=== PATIENT | female | born 1935 | race Caucasian/White ===

== ENCOUNTER 2023-12-06 10:24 | Inpatient (IN) ==
--- NOTE | 2023-12-06 10:40 | Emergency Department Note ---
Impression & Plan Acute on chronic hypoxic respiratory failure, Comfort measures only status, Acute on chronic heart failure with preserved ejection fraction (HFpEF), Lactic acidosis, HOCM (hypertrophic obstructive cardiomyopathy), Elevated troponin ED Provider Note NAME: GAVI CUADRA AGE: 88 SEX: F : 1935 ARRIVES VIA: Ambulance INFORMANT: Patient, ED PROVIDER(S): Isrrael Alcala MD CHIEF COMPLAINT: Shortness of breath MEDICAL DECISION MAKING: Patient presented due to concern for worsening shortness of breath dizziness and low blood pressure. Patient is accompanied by daughter who relates that she has had multiple inpatient stays most recently did have pacemaker placed at [facility] [address] in [place]. I was able to obtain some outpatient records IV was established and blood work was obtained along with an EKG troponin chest x-ray. Patient was noted to be hypotensive and was given 250 cc bolus which was a small amount given the patient's tenuous status that she does have a history of CHF. Patient was hypoxic and did require supplemental oxygen was placed on a nonrebreather. I was able to review the outpatient records which showed concern for left ventricular outflow obstruction and hyper atrophic obstructive cardiomyopathy. Given this concern with the patient's signs of poor perfusion on exam I did consult with cardiology Dr. Roldan who did come down to the emergency department. Patient did have [id number] BMP which was noted to have an elevated potassium and did ask for repeat but in the meantime the patient was given an albuterol treatment. The patient was also noted to have a sugar in the 60s so the patient was given an amp of D50. In that time though I had discussed my concerns with the patient's daughter who is the power of deputy prosecuting attorney after discussing goals of care she does not want to pursue any aggressive interventions does not want life-saving treatments blood pressure or cardiac medications and would like to make the patient comfortable. She does not want ICU status or central line or cardiac or blood pressure medications. I did convey this to Dr. Roldan so the consult was canceled. I did speak with the on-call hospitalist service Dr. Persaud for inpatient treatment and comfort measures. Patient's blood work showed a white count of 9 with a hemoglobin of 9.4. The patient's platelet count was unremarkable. Kidney function with a creatinine 2.14. Patient's bicarb is low. Lactate of 5.5 with a troponin of 341 and a BNP of 2700. Critical Care: I have personally spent 45 minutes of critical care time in direct management of this patient. This includes bedside care, interpretation of diagnostic studies, and testing, discussion with consultants, patient, and family members, and other require inpatient management activities. This 45 minutes is in excess of all separately billable procedures. Discussion w/ other healthcare providers: Sai with [employer] is had no issues with pacemaker interrogation Dr. Persaud inpatient medicines are Prior /Outside records reviewed: I reviewed a discharge summary from Dr. 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 Patient had presented bedside due to concern for respiratory failure secondary to overload baseline interstitial lung disease with severe pulmonary hypertension. Patient with complex physiology patient did have pacemaker placement to improve beta-blockade and increase cardiac output. Is reported that imperative before giving any diuretics or fluids to speak with a chemistry technologist regarding proper management. Patient is very tenuous fluid status due to complex physiology which continues into by the way dry weight noted to be 79 kg today 86.9. Patient is on Eliquis patient was to stop taking metolazone. Patient was to begin taking metoprolol succinate 50 mg. Differential diagnosis: Infection, dehydration, metabolic abnormality, hypo/hyperglycemia, electrolyte imbalance, anemia, UTI, pneumonia, thyroid dysfunction among others were considered. Diagnostics, as interpreted by me: ECG: The patient rhythm, rate of 61, wide QRS block pattern. Cardiac monitoring: An order was placed for continuous cardiac monitoring. The monitor shows a rate of 60 with paced rhythm. Patient was placed on pulse oximetry Medical decision rules: None Imaging studies: I informally interpreted the patient's chest x-ray which does show pulmonary edema with formal report to follow. HPI: [facility] due to concern for hypotension and presyncope. The patient reportedly was going to the toilet when she got very lightheaded dizzy and slumped over on the toilet but did not fall. The patient states that she did not pass out. Patient's past pulse ox was in the 70s although unsure as to whether or not the patient had a good waveform. No reported falls or trauma. The patient does take Eliquis and does follow with Dr. Kimble. The patient does have significant heart failure and did have a recent pacemaker that was placed about a week and a half ago at [facility] [address] in [place]. Patient does feel very fatigable although feels improved compared to prior. Patient is DNR/DNI. No abdominal pain nausea vomiting. Patient reportedly has been getting food and drink per the daughter but the patient states that she had decreased appetite and decreased p.o. intake. Daughter also relates that she has a history of pulmonary hypertension and has been on Lasix multiple bouts of hospitalization for CHF and volume overload. Daughter states that she believes her abdomen is distended and may not be urinating as well as she should as the patient has required catheterization. PAST MEDICAL HISTORY: See Below PAST SURGICAL HISTORY: See Below SOCIAL HISTORY: See Below HOME MEDICATIONS: See Below ALLERGIES: See Below VITALS: See Below PHYSICAL EXAMINATION: GENERAL: Ill in appearance. Nonrebreather in place. EYE EXAM: Normal conjunctiva. PERRL, no anisocoria and EOM's grossly intact w/o pain. OROPHARYNX: Dry mucus membranes, grossly normal dentition. NECK: Trachea midline, no stridor. LUNGS: Decreased breath sounds bilateral bases normal chest wall mechanics. HEART: NSR, no MRG. ABDOMEN: Abdomen soft, non-tender, no masses, no rebound or guarding. BACK: No CVA TTP. SKIN: No rashes and no bruising. UPPER EXTREMITIES: Upper extremities are grossly normal. Distal portions of the extremities are cool to touch. LOWER EXTREMITIES: Grossly normal, Trace pretibial edema without any calf pain erythema. Distal portions of the extremity are cool to touch. NEURO EXAM: A&O x3, cranial nerves II-XII grossly intact, normal speech, moves all 4 extremities. Past Med/Surg History Medical History HOCM (hypertrophic obstructive cardiomyopathy) Surgical History S/P cardiac pacemaker procedure Social History Smoking Status: Never smoker Preferred Language: Pashto Communication Ability: Unable Field Court Researcher Required: No Beliefs That Will Affect Care: None Feels Safe at Home: Yes Assistive Devices: None Allergies Allergies Allergy/AdvReac Type Severity Reaction Status Date / Time amoxicillin Allergy Hives Unverified 12/06/23 12:59 gatifloxacin AdvReac Nausea and Unverified 12/06/23 12:59 vomiting latex AdvReac Rash Unverified 12/06/23 12:59 Home Meds Home Medications Medication Instructions Recorded Confirmed No Known Home Medications 12/06/23 12/06/23 Results & Data (ED) Vital Signs Vital Signs - 24 hr 12/06/23 10:37 12/06/23 11:03 12/06/23 11:03 Pulse Rate 60 60 62 Pulse Rate from SpO2 Sensor Respiratory Rate 20 20 Respiratory Effort / Characteristics Non-Labored Respiratory Depth Normal Blood Pressure 93/53 L Blood Pressure Mean 66 Pulse Oximetry 98 91 Oxygen Delivery Method Room Air Oxymask Oxygen Flow Rate 5 Sepsis Recent Fever Within 48 Hours No Sepsis New/Unexplained Change in Mental Status N/A Sepsis Action Taken by Nursing No Action Required 12/06/23 11:40 12/06/23 11:46 12/06/23 12:02 Pulse Rate 61 60 Pulse Rate from SpO2 Sensor 60 Respiratory Rate 16 25 H Respiratory Effort / Characteristics Respiratory Depth Blood Pressure 112/59 L 94/61 L Blood Pressure Mean 76 72 Pulse Oximetry 84 L 86 L 84 L Oxygen Delivery Method Oxymask Non-rebreather Oxygen Flow Rate 4 15 Sepsis Recent Fever Within 48 Hours Sepsis New/Unexplained Change in Mental Status Sepsis Action Taken by Alf Medications Current Medication List: was personally reviewed by me Laboratory Data Attestation: I reviewed the patient's lab results. 12/06/23 11:19 12/06/23 11:19 Lab Results 12/06/23 12/06/23 12/06/23 Range/Units 10:49 11:19 11:29 WBC 9.41 (4.8-10.8) K/ul RBC 3.66 L (4.20-5.40) M/uL Hgb 9.4 L (12.0-16.0) g/dl POC Hgb 12.6 11.2 L (12.0-16.0) g/dl Hct 32.2 L (37.0-47.0) % POC Hct 37 33 L (37-47) % MCV 88.0 (80.0-100.0) fL MCH 25.7 (25.0-34.0) pg MCHC 29.2 L (32.0-36.0) g/dL RDW Std Deviation 63.8 H (36.4-46.3) fL RDW Coeff of Lance 20.2 H (11.5-14.5) % Plt Count 188 (130-400) K/uL MPV 10.1 (9.4-12.4) fL Immature Gran % (Auto) 1.1 % Neut % (Auto) 86.0 % Lymph % (Auto) 7.8 % [place] % (Auto) 4.7 % Eos % (Auto) 0.3 % Baso % (Auto) 0.1 % Neut # (Auto) 8.10 H (1.40-6.50) K/uL Lymph # (Auto) 0.73 L (1.20-3.40) K/uL [place] # (Auto) 0.44 (0.11-0.59) K/uL Eos # (Auto) 0.03 (0.00-0.50) K/uL Baso # (Auto) 0.01 (0.00-0.20) K/uL Immature Gran # (Auto) 0.10 (0.01-0.20) K/uL Absolute Nucleated RBC 0.06 (0.00-0.12) K/uL Nucleated RBC % (auto) 0.6 % Polychromasia 1+ Anisocytosis Present Echinocytes 2+ POC Sodium 122 L 124 L (135-144) mmol/L Sodium 124 L (136-145) mmol/L POC Potassium 7.7 H* 5.0 (3.3-5.0) mmol/L Potassium 5.0 (3.5-5.1) mmol/L POC Chloride 96 L 94 L (101-112) mmol/L Chloride 92 L (98-107) mmol/L Carbon Dioxide 17 L (21-32) mmol/L POC Total CO2 17 L 18 L (24-31) mmol/L Anion Gap 15 H (3-11) POC Anion Gap 18.0 19.0 (16-25) mmol/L POC BUN 82 H 65 H (7-18) mg/dl BUN 73 H (6-23) mg/dl Creatinine 2.14 H (0.6-1.2) mg/dl POC Creatinine 2.4 H 2.3 H (0.6-1.3) mg/dl Est Cr Clr Drug Dosing 18.9 ml/min Est GFR ( Amer) 23.5 ml/min Est GFR (Non-Af Amer) 20.3 ml/min BUN/Creatinine Ratio 34.1 H (10-20) Glucose 72 (70-99(Fasting)) mg/dl POC Glucose (other) 64 L* 70 (70-99) mg/dl Lactate 5.9 H* (0.4-2.0) mmol/L Calcium 8.7 (8.6-10.3) mg/dl POC Ioniz Calcium Nadeem 0.99 L 1.11 L (1.12-1.32) mmol/l Magnesium 2.7 H (1.7-2.4) mg/dl Total Bilirubin 2.2 H (0.2-1.0) mg/dl Direct Bilirubin 1.1 H (0-0.2) mg/dl AST 46 H (13-39) U/L ALT 26 (7-52) U/L Alkaline Phosphatase 153 H (34-104) U/L Troponin I High Sens 341.5 H* (0-14) pg/ml B-Natriuretic Peptide 2736 H (0-100) pg/ml Total Protein 6.4 (6.0-8.3) gm/dl Albumin 3.2 L (3.4-5.0) gm/dl Procalcitonin 0.26 (0-0.5) ng/ml Urine Color Urine Appearance (Clear) Urine pH (4.5-7.5) Ur Specific [place] (1.000-1.030) Urine Protein (Negative) Urine Glucose (UA) (Negative) Urine Ketones (Negative) Urine Blood (Negative) Urine Nitrite (Negative) Urine Bilirubin (Negative) Urine Urobilinogen (Negative) Ur Leukocyte Esterase (Negative) Urine WBC (Auto) (0-5) /hpf Urine RBC (Auto) (0-2) /hpf U Hyaline Cast (Auto) (0-2) /lpf U Epithel Cells (Auto) (0-2) /hpf Urine Bacteria (Auto) (None Seen) Hyaline Casts (None Presnt) /lpf Granular Casts (None Prsent) /lpf 12/06/23 12/06/23 Range/Units 11:50 14:36 WBC (4.8-10.8) K/ul RBC (4.20-5.40) M/uL Hgb (12.0-16.0) g/dl POC Hgb (12.0-16.0) g/dl Hct (37.0-47.0) % POC Hct (37-47) % MCV (80.0-100.0) fL MCH (25.0-34.0) pg MCHC (32.0-36.0) g/dL RDW Std Deviation (36.4-46.3) fL RDW Coeff of Lance (11.5-14.5) % Plt Count (130-400) K/uL MPV (9.4-12.4) fL Immature Gran % (Auto) % Neut % (Auto) % Lymph % (Auto) % [place] % (Auto) % Eos % (Auto) % Baso % (Auto) % Neut # (Auto) (1.40-6.50) K/uL Lymph # (Auto) (1.20-3.40) K/uL [place] # (Auto) (0.11-0.59) K/uL Eos # (Auto) (0.00-0.50) K/uL Baso # (Auto) (0.00-0.20) K/uL Immature Gran # (Auto) (0.01-0.20) K/uL Absolute Nucleated RBC (0.00-0.12) K/uL Nucleated RBC % (auto) % Polychromasia Anisocytosis Echinocytes POC Sodium (135-144) mmol/L Sodium (136-145) mmol/L POC Potassium (3.3-5.0) mmol/L Potassium (3.5-5.1) mmol/L POC Chloride (101-112) mmol/L Chloride (98-107) mmol/L Carbon Dioxide (21-32) mmol/L POC Total CO2 (24-31) mmol/L Anion Gap (3-11) POC Anion Gap (16-25) mmol/L POC BUN (7-18) mg/dl BUN (6-23) mg/dl Creatinine (0.6-1.2) mg/dl POC Creatinine (0.6-1.3) mg/dl Est Cr Clr Drug Dosing ml/min Est GFR ( Amer) ml/min Est GFR (Non-Af Amer) ml/min BUN/Creatinine Ratio (10-20) Glucose (70-99(Fasting)) mg/dl POC Glucose (other) (70-99) mg/dl Lactate (0.4-2.0) mmol/L Calcium (8.6-10.3) mg/dl POC Ioniz Calcium Nadeem (1.12-1.32) mmol/l Magnesium (1.7-2.4) mg/dl Total Bilirubin (0.2-1.0) mg/dl Direct Bilirubin (0-0.2) mg/dl AST (13-39) U/L ALT (7-52) U/L Alkaline Phosphatase (34-104) U/L Troponin I High Sens 4.1 D (0-14) pg/ml B-Natriuretic Peptide (0-100) pg/ml Total Protein (6.0-8.3) gm/dl Albumin (3.4-5.0) gm/dl Procalcitonin (0-0.5) ng/ml Urine Color Dark Yellow Urine Appearance Cloudy A (Clear) Urine pH 5.0 (4.5-7.5) Ur Specific [place] 1.019 (1.000-1.030) Urine Protein Trace H (Negative) Urine Glucose (UA) Negative (Negative) Urine Ketones Trace H (Negative) Urine Blood Negative (Negative) Urine Nitrite Negative (Negative) Urine Bilirubin 1+ H (Negative) Urine Urobilinogen Negative (Negative) Ur Leukocyte Esterase 2+ H (Negative) Urine WBC (Auto) 21-50 H (0-5) /hpf Urine RBC (Auto) 3-5 H (0-2) /hpf U Hyaline Cast (Auto) >20 H (0-2) /lpf U Epithel Cells (Auto) 6-10 H (0-2) /hpf Urine Bacteria (Auto) None Seen (None Seen) Hyaline Casts Present A (None Presnt) /lpf Granular Casts Present A (None Prsent) /lpf Administered Medications Discontinued Medications Albuterol (Albuterol 0.083% Nebu Soln 3 Ml Vial) 2.5 mg NEB NOW STA; Protocol Stop: 12/06/23 10:54 Last Admin: 12/06/23 11:25 Dose: 2.5 mg Documented By: Dextrose (Dextrose 50% 50 Ml Syringe) 50 ml IV NOW ONE Stop: 12/06/23 10:52 Last Admin: 12/06/23 11:13 Dose: 50 ml Documented By: MR Hydromorphone HCl (Hydromorphone Bolus From Bag) 0.2 mg IV Q10M PRN PRN Reason: Comfort Care Parameters Stop: 12/20/23 17:28 Last Admin: 12/06/23 20:25 Dose: 0.2 mg Documented By: RANI Co-signed By: FRANK Calcium Gluconate () 1,000 mg in 60 mls @ 240 mls/hr IV NOW STA Stop: 12/06/23 11:07 Last Infusion: 12/06/23 11:49 Dose: Infused Documented By: Admin: 12/06/23 11:20 Dose: 240 mls/hr Documented By: MR Sodium Chloride (Nss) 250 mls @ 999 mls/hr IV .Q16M ONE Stop: 12/06/23 11:08 Last Infusion: 12/06/23 12:59 Dose: Infused Documented By: Admin: 12/06/23 11:15 Dose: 999 mls/hr Documented By: MR Hydromorphone HCl (Dilaudid/Nss) 100 mg in 100 mls @ 0 mls/hr IV .Q0M BONIFACIO; Protocol Stop: 12/20/23 17:29 Last Titration: 12/07/23 12:02 Dose: Infused Documented By: JASBIR Co-signed By: [facility] Titration: 12/07/23 10:59 Dose: 0 mg/hr, 0 mls/hr Documented By: JASBIR Co-signed By: [facility] Titration: 12/07/23 05:03 Dose: 0.6 mg/hr, 0.6 mls/hr Documented By: RANI Co-signed By: FRANK Titration: 12/06/23 20:25 Dose: 0.4 mg/hr, 0.4 mls/hr Documented By: RANI Co-signed By: FRANK Admin: 12/06/23 17:46 Dose: 0.2 mg/hr, 0.2 mls/hr Documented By: JASBIR Co-signed By: DIANDRA Morphine Sulfate (Morphine Sulfate 2 Mg/Ml Carp) 2 mg IV NOW STA Stop: 12/06/23 13:27 Last Admin: 12/06/23 13:31 Dose: 2 mg Documented By: CESAR Morphine Sulfate (Morphine Sulfate 2 Mg/Ml Carp) 2 mg IV Q4H PRN PRN Reason: Pain or Respiratory Distress Stop: 12/20/23 15:13 Last Admin: 12/06/23 15:18 Dose: 2 mg Documented By: AV Imaging Data Radiologist's Impression: Chest X-Ray 12/06/23 10:52 XR chest 1V portable HISTORY: Sepsis COMPARISON: None. FINDINGS: No pneumothorax. No pleural effusions. The cardiac silhouette is mildly enlarged. Is left-sided single lead pacemaker. There is diffuse interstitial thickening and low lung volumes. Calcifications within the aortic knob. No acute fractures. Bibasilar densities are nonspecific. IMPRESSION: 1. Cardiomegaly with diffuse interstitial thickening. This may be chronic or represent mild congestive change. 2. Bibasilar densities may represent atelectasis or a pneumonitis. ACT 112: Negative or not required by law. Electronically signed by: Carlos Enrique Murrell M.D. 12/06/2023 11:11 AM Discharge Plan Visit Data Chief Complaint: Hypotension Stated Complaint: SYNCOPE, HYPOTENSION ED Provider: Isrrael Alcala Discharge Problem: Acute on chronic hypoxic respiratory failure, Comfort measures only status, Acute on chronic heart failure with preserved ejection fraction (HFpEF), Lactic acidosis, HOCM (hypertrophic obstructive cardiomyopathy), Elevated troponin Patient Disposition: Admitted As Inpatient Discharge Instructions Interventions: ED Discharge Assessment Last Done: 12/06/23 14:15
[2023-12-06 11:02] LABS: iSTAT Creatinine 2.4 mg/dl (0.6-1.3); iSTAT Hemoglobin 12.6 g/dl (12.0-16.0); iSTAT Ionized Calcium 0.99 mmol/l (1.12-1.32); iSTAT Potassium 7.7 mmol/L (3.3-5.0)
[2023-12-06] MEDS: DEXTROSE 50% 50 ML SYRINGE IV ONE (11:13)
--- NOTE | 2023-12-06 11:13 | XRay Report ---
XR chest 1V portable HISTORY: Sepsis COMPARISON: None. FINDINGS: No pneumothorax. No pleural effusions. The cardiac silhouette is mildly enlarged. Is left-s ided single lead pacemaker. There is diffuse interstitial thickening and low lung volumes. Calcificat ions within the aortic knob. No acute fractures. Bibasilar densities are nonspecific. IMPRESSION: 1. Cardiomegaly with diffuse interstitial thickening. This may be chronic or represent mild congestiv e change. 2. Bibasilar densities may represent atelectasis or a pneumonitis. ACT 112: Negative or not required by law. Electronically signed by: Carlos Enrique Murrell M.D. 12/06/2023 11:11 AM
[2023-12-06] MEDS: SODIUM CHLORIDE 0.9% 250 ML IV ONE (11:15)
[2023-12-06] MEDS: CALCIUM GLUCONATE 1,000 MG/60 ML BAG IV STA (11:20)
[2023-12-06] MEDS: ALBUTEROL 0.083% NEBU SOLN 3 ML VIAL NEB STA (11:25)
[2023-12-06 11:42] LABS: iSTAT Creatinine 2.3 mg/dl (0.6-1.3); iSTAT Hemoglobin 11.2 g/dl (12.0-16.0); iSTAT Ionized Calcium 1.11 mmol/l (1.12-1.32)
[2023-12-06 11:44] LABS: Basophils # (auto) 0.01 K/uL (0.00-0.20); Basophils % (auto) 0.1 %; Eosinophils # (auto) 0.03 K/uL (0.00-0.50); Eosinophils % (auto) 0.3 %; Hematocrit (blood only) 32.2 % (37.0-47.0); Hemoglobin 9.4 g/dl (12.0-16.0); Immature Granulocytes % (auto) 1.1 %; Lymphocytes # (auto) 0.73 K/uL (1.20-3.40); Lymphocytes % (auto) 7.8 %; Mean Corpuscular Hemoglobin 25.7 pg (25.0-34.0); Mean Corpuscular Hgb Conc 29.2 g/dL (32.0-36.0); Mean Platelet Volume 10.1 fL (9.4-12.4); Monocytes # (auto) 0.44 K/uL (0.11-0.59); Monocytes % (auto) 4.7 %; Nucleated RBC # (auto) 0.06 K/uL (0.00-0.12); Nucleated RBC % (auto) 0.6 %; Platelet Count 188 K/uL (130-400); RDW Coefficient of Variation 20.2 % (11.5-14.5); RDW Standard Deviation 63.8 fL (36.4-46.3); Red Blood Count 3.66 M/uL (4.20-5.40); White Blood Count 9.41 K/ul (4.8-10.8)
[2023-12-06 11:57] LABS: Albumin Level 3.2 gm/dl (3.4-5.0); BUN Creatinine Ratio 34.1 (10-20); Bilirubin Direct 1.1 mg/dl (0-0.2); Bilirubin,Total 2.2 mg/dl (0.2-1.0); Calcium 8.7 mg/dl (8.6-10.3); Creatinine Clr Calc Pharmacy 18.9 ml/min; Est GFR (African American) 23.5 ml/min; Est GFR (Non-African American) 20.3 ml/min; Magnesium 2.7 mg/dl (1.7-2.4); Total Protein 6.4 gm/dl (6.0-8.3)
[2023-12-06 12:05] LABS: Troponin I High Sensitivity 341.5 pg/ml (0-14)
[2023-12-06 12:18] LABS: Anisocytosis Present; Echinocytes 2+; Polychromasia 1+
[2023-12-06 12:19] LABS: Appearance Urine Cloudy (Clear); Bacteria Urine Automated None Seen (None Seen); Bilirubin Urine 1+ (Negative); Blood Urine Negative (Negative); Cast Urine Automated >20 /lpf (0-2); Color Urine Dark Yellow; Glucose Urine UA Negative (Negative); Granular Casts Urine Present /lpf (None Prsent); Hyaline Casts Urine Present /lpf (None Presnt); Ketones Urine Trace (Negative); Leukocyte Esterase Urine 2+ (Negative); Nitrite Urine Negative (Negative); Protein Urine Trace (Negative); Specific Gravity Urine 1.019 (1.000-1.030); Urobilinogen Urine Negative (Negative); WBC Urine Automated 21-50 /hpf (0-5)
[2023-12-06] MEDS ORDERED: LORazepam 0.5 MG TAB PO PRN (12:43)
[2023-12-06] MEDS ORDERED: ONDANSETRON INJ 2 MG/ML 2 ML VIAL IV PRN (12:43)
[2023-12-06] MEDS ORDERED: GLYCOPYRROLATE 0.2 MG/ML VIAL IV PRN ×2 (12:43→17:33)
[2023-12-06] MEDS ORDERED: MoRPHine SULFATE 10 MG/0.5 ML UDP PO PRN (12:43)
[2023-12-06] MEDS ORDERED: LORazepam 0.5 MG in SYRINGE 0.25 ML IV PRN (12:43)
[2023-12-06] MEDS ORDERED: ONDANSETRON 4 MG OD TAB SL PRN (12:43)
--- NOTE | 2023-12-06 12:43 | History & Physical Report ---
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, as she would not like inotropes or intubation in any circumstances Daughter/surrogate (Betty) is present for this discussion at bedside and confirms decisions Patient's goals are to pass in minimal pain Morphine (Roxanol) as needed for pain respiratory distress Lorazepam as needed for anxiety/agitation Glycopyrrolate as needed for secretions or pulmonary congestion Zofran as needed for nausea/vomiting Patient declines postoral consult at this time Palliative care consulted (2) Acute on chronic heart failure: Plan: Single chamber pacemaker placed on 11/27/2023 Not a defibrillator Jardiance, metolazone, spironolactone, and torsemide were all discontinued during her hospital stay Dry weight of 174 pounds Minimal improvement in the ED Will defer further treatment (3) Acute and chronic respiratory failure: Plan: Patient is continuous supplemental oxygen on 2L NC at baseline, but required increased oxygen the morning of 12/05 Supplemental oxygen as needed to keep comfortable without escalation beyond nonrebreather (4) HOCM (hypertrophic obstructive cardiomyopathy): Plan: Chronic; noted (5) Elevated lactic acid level: (6) Elevated troponin: (7) Hypermagnesemia: (8) Hyponatremia: (9) Anemia: Plan Disposition: [facility] DNR/DNI Comfort measures only History of Present Illness Chief Complaint: Syncope, hypotension Primary Care Provider: Jeanna Chavez PA-C Maria Luisa is an 88yo female with PMH of HOCM, heart failure, chronic respiratory failure, and urinary retention. She presented via EMS from [facility] for 2 syncopal episodes on the morning of 12/05. Her blood sugar was low at that time around 58, but came up after receiving orange juice. Patient was done very lethargic; SpO2 65%. Patient was also hypotensive at 60/30 on EMS arrival and placed on a nonrebreather at 15 L (she is chronically on 2L NC at baseline). Patient's daughter (Betty) is present at the bedside and provides additional history. She reports that her mother has been in the hospital multiple times since July for acute exacerbations of her heart failure. This has been difficult to treat in the setting of HOCM. She was taken off of diuretics recently. Patient denies fully passing out this morning, but reports she has been feeling very weak and had difficulty breathing. Patient is mentating at this time and reports that she would not like escalation of treatment such as vasopressors or intubation if required. Per discussion with both patient and daughter at bedside, patient is DNR/DNI and would like comfort measures only at this time. Patient Patient is hypotensive and is hypertensive at 94/61, tachypneic at 25 RPM, and her oxygen saturation is 84% SpO2 on 15 L nonrebreather. ED course: Dextrose 50 mL IV Ventolin 2.5 mg neb Calcium gluconate 1000 mg IV NSS 250 mL IV ROS: Patient endorses fatigue, generalized weakness, orthopnea, and difficulty breathing. Patient denies fever, chills, sweating, dizziness, lightheadedness, headache, chest pain, abdominal pain, pain anywhere. Allergies Allergy/AdvReac Type Severity Reaction Status Date / Time amoxicillin Allergy Hives Unverified 12/06/23 12:59 gatifloxacin AdvReac Nausea and Unverified 12/06/23 12:59 vomiting latex AdvReac Rash Unverified 12/06/23 12:59 Home Medications Medication Instructions Recorded Confirmed Type No Known Home Medications 12/06/23 12/06/23 History Past Med/Surg History Social History Smoking Status: Never smoker Feels Safe at Home: Yes Review of Systems Review of Systems: See HPI above Physical Exam Physical Exam: Abbreviated in the setting of comfort measures only General: Acute respiratory distress; lethargic; pleasant affect; frail appearing; non-toxic appearing; cooperative; SpO2 84% on nonrebreather 15 L HEENT: normocephalic, atraumatic; PERRLA; dry mucus membrane; vision and hearing intact Neck: supple; no lymphadenopathy; trachea midline Skin: warm, dry without signs of tenting CV: chest wall NTP; RRR; S1/S2 normal; no murmurs/rubs/gallops; pulses intact and symmetric at radial, DP, and PT Lungs: Acute respiratory distress; symmetrical chest wall expansion; diminished breath sounds across all lung villatoro w/o adventitious sounds; no wheezing Results & Data Results & Data Vital Signs (Past 12 Hours) Vital Signs Pulse Resp BP Pulse Ox O2 Del Method O2 Flow Rate 12/06/23 12:02 60 25 H 94/61 L 84 L 12/06/23 11:46 61 16 112/59 L 86 L Non-rebreather 15 12/06/23 11:40 84 L Oxymask 4 12/06/23 11:03 62 20 91 Oxymask 5 12/06/23 11:03 60 20 93/53 L 98 Room Air 12/06/23 10:37 60 Laboratory Results Abnormal lab results 12/06/23 12/06/23 12/06/23 Range/Units 10:49 11:19 11:29 RBC 3.66 L (4.20-5.40) M/uL Hgb 9.4 L (12.0-16.0) g/dl POC Hgb 11.2 L (12.0-16.0) g/dl Hct 32.2 L (37.0-47.0) % POC Hct 33 L (37-47) % MCHC 29.2 L (32.0-36.0) g/dL RDW Std Deviation 63.8 H (36.4-46.3) fL RDW Coeff of Lance 20.2 H (11.5-14.5) % Neut # (Auto) 8.10 H (1.40-6.50) K/uL Lymph # (Auto) 0.73 L (1.20-3.40) K/uL POC Sodium 122 L 124 L (135-144) mmol/L Sodium 124 L (136-145) mmol/L POC Potassium 7.7 H* (3.3-5.0) mmol/L POC Chloride 96 L 94 L (101-112) mmol/L Chloride 92 L (98-107) mmol/L Carbon Dioxide 17 L (21-32) mmol/L POC Total CO2 17 L 18 L (24-31) mmol/L Anion Gap 15 H (3-11) POC BUN 82 H 65 H (7-18) mg/dl BUN 73 H (6-23) mg/dl Creatinine 2.14 H (0.6-1.2) mg/dl POC Creatinine 2.4 H 2.3 H (0.6-1.3) mg/dl BUN/Creatinine Ratio 34.1 H (10-20) POC Glucose (other) 64 L* (70-99) mg/dl Lactate 5.9 H* (0.4-2.0) mmol/L POC Ioniz Calcium Nadeem 0.99 L 1.11 L (1.12-1.32) mmol/l Magnesium 2.7 H (1.7-2.4) mg/dl Total Bilirubin 2.2 H (0.2-1.0) mg/dl Direct Bilirubin 1.1 H (0-0.2) mg/dl AST 46 H (13-39) U/L Alkaline Phosphatase 153 H (34-104) U/L Troponin I High Sens 341.5 H* (0-14) pg/ml B-Natriuretic Peptide 2736 H (0-100) pg/ml Albumin 3.2 L (3.4-5.0) gm/dl Urine Appearance (Clear) Urine Protein (Negative) Urine Ketones (Negative) Urine Bilirubin (Negative) Ur Leukocyte Esterase (Negative) Urine WBC (Auto) (0-5) /hpf Urine RBC (Auto) (0-2) /hpf U Hyaline Cast (Auto) (0-2) /lpf U Epithel Cells (Auto) (0-2) /hpf Hyaline Casts (None Presnt) /lpf Granular Casts (None Prsent) /lpf 12/06/23 Range/Units 11:50 RBC (4.20-5.40) M/uL Hgb (12.0-16.0) g/dl POC Hgb (12.0-16.0) g/dl Hct (37.0-47.0) % POC Hct (37-47) % MCHC (32.0-36.0) g/dL RDW Std Deviation (36.4-46.3) fL RDW Coeff of Lance (11.5-14.5) % Neut # (Auto) (1.40-6.50) K/uL Lymph # (Auto) (1.20-3.40) K/uL POC Sodium (135-144) mmol/L Sodium (136-145) mmol/L POC Potassium (3.3-5.0) mmol/L POC Chloride (101-112) mmol/L Chloride (98-107) mmol/L Carbon Dioxide (21-32) mmol/L POC Total CO2 (24-31) mmol/L Anion Gap (3-11) POC BUN (7-18) mg/dl BUN (6-23) mg/dl Creatinine (0.6-1.2) mg/dl POC Creatinine (0.6-1.3) mg/dl BUN/Creatinine Ratio (10-20) POC Glucose (other) (70-99) mg/dl Lactate (0.4-2.0) mmol/L POC Ioniz Calcium Nadeem (1.12-1.32) mmol/l Magnesium (1.7-2.4) mg/dl Total Bilirubin (0.2-1.0) mg/dl Direct Bilirubin (0-0.2) mg/dl AST (13-39) U/L Alkaline Phosphatase (34-104) U/L Troponin I High Sens (0-14) pg/ml B-Natriuretic Peptide (0-100) pg/ml Albumin (3.4-5.0) gm/dl Urine Appearance Cloudy A (Clear) Urine Protein Trace H (Negative) Urine Ketones Trace H (Negative) Urine Bilirubin 1+ H (Negative) Ur Leukocyte Esterase 2+ H (Negative) Urine WBC (Auto) 21-50 H (0-5) /hpf Urine RBC (Auto) 3-5 H (0-2) /hpf U Hyaline Cast (Auto) >20 H (0-2) /lpf U Epithel Cells (Auto) 6-10 H (0-2) /hpf Hyaline Casts Present A (None Presnt) /lpf Granular Casts Present A (None Prsent) /lpf Diagnostic Findings Chest X-Ray 12/06/23 10:52 XR chest 1V portable HISTORY: Sepsis COMPARISON: None. FINDINGS: No pneumothorax. No pleural effusions. The cardiac silhouette is mildly enlarged. Is left-sided single lead pacemaker. There is diffuse interstitial thickening and low lung volumes. Calcifications within the aortic knob. No acute fractures. Bibasilar densities are nonspecific. IMPRESSION: 1. Cardiomegaly with diffuse interstitial thickening. This may be chronic or represent mild congestive change. 2. Bibasilar densities may represent atelectasis or a pneumonitis. ACT 112: Negative or not required by law. Electronically signed by: Carlos Enrique Murrell M.D. 12/06/2023 11:11 AM ECG Additional Comments: ECG revealed ventricular paced rhythm at 61 bpm; QTc 545 Code Status & VTE Plan Code Status DNR/DNI WAREHOU[employer] WORKER VTE Prophylaxis Plan VTE Prophylaxis will be ordered: No Supervising Physician Co-Signing Physician Notes Patient seen and examined, chart reviewed, case discussed with Carlos Enrique Santos and I agree with the assessment and plan as above except as otherwise noted Labs and images reviewed Pt seen w her daughter was bedside. She has had clinical deterioration, dyspnea, general unwellness progressive over the last week since having her ICD placed at [place]. Patient is hypotensive with evidence of multiorgan dysfunction. She has a history of severe hypertrophic cardiomyopathy and diastolic heart failure. On presentation family expresses their goals of care are to move to comfort measures only, and as she is satting in the low 80s on nonrebreather anticipate that she will pass within the next few hours to days. Central line access, ICU level of care, and initial treatments for her hokum/heart failure were discussed however given her multiple prior admissions, invasive measures they just had at [place], and continued decline they do not wish for further medical treatment at time of admission. Discussed WAREHOUSE WORKER, patient confirms that her goals are "to pass in no pain "and her surrogate decision maker daughter Betty is present at bedside for this discussion. Pt has improved previously with cautious fluids and recived saline on admission, but notes she has had continued decline and no durable res Confirmed that her device was a single lead ventricular pacer with no ICD functionality that needs to be turned off. WAREHOUSE WORKER orderset in place. Pain/anxiolytics dice person. Palliative consulted. Anticipate passing in hours/short days. May wean oxygen as able based on comfort/dyspnea. PG Care Time/CCT Total # of Minutes Spent Total Time Spent with Patient: Total time spent is greater than 50% in coordination of care (as documented) at patient's floor/unit and/or counseling patient: [place] [address] INT INP/OBS CARE 3/75MIN Patient Type Established History Comprehensive Exam Comprehensive Medical Decision Making High Complexity Diagnoses Comfort measures only status Z51.5 Acute on chronic heart failure I50.9 Acute and chronic respiratory failure J96.20 HOCM (hypertrophic obstructive cardiomyopathy) I42.1 Elevated lactic acid level R79.89 Elevated troponin R79.89 Hypermagnesemia E83.41 Hyponatremia E87.1 Anemia D64.9
[2023-12-06] MEDS ORDERED: Patient's ALLERGY Info needs ENTERED SCH (13:00)
[2023-12-06] MEDS: MoRPHine SULFATE 2 MG/ML CARP IV STA (13:31)
[2023-12-06] MEDS ORDERED: MELATONIN 3 MG TAB PO PRN (15:10)
[2023-12-06] MEDS ORDERED: ACETAMINOPHEN 325 MG TAB PO PRN (15:10)
[2023-12-06] MEDS: MoRPHine SULFATE 2 MG/ML CARP IV PRN (15:18)
[2023-12-06] MEDS ORDERED: LORazepam 1 MG in SYRINGE 0.5 ML IV PRN (17:33)
[2023-12-06] MEDS ORDERED: HYDROmorphone INJ 0.5 MG/0.5 ML SYR IV PRN (17:34)
--- NOTE | 2023-12-06 17:38 | Palliative Care Consultation ---
Date of Consultation December 06, 2023 Assessment & Plan (1) Dyspnea and respiratory abnormalities: Progressive cardioresp failure multifocal etiology of pulm fibrosis, HCOM with LVOT, valvular failure. CKD III-IV, therefore would avoid morphine and transition to Dilaudid. Avoid use of morphine in this patient with advanced renal disease/nephropathy d/t toxic metabolites, which are renally excreted, accumulate and can quickly cause over- opiation. Over opiation would be easily done with the use of a medication that pt cannot properly excrete. Pt has expressed goal for maximal comfort, relief of suffering to prior providers and this is reaffirmed by dtr/POA today as well Begin Dilaudid 0.2mg per hour with 0.2mg q10min prn bolus thru bag stop MS (2) Air hunger: see #1 (3) Chest pain: see #1 (4) Anxiety associated with dying process: inc Ativan to 1mg iV q4h prn d/c oral ativan, pt not able to take PO meds (5) Weakness generalized: (6) Discussion about advance care planning held with family member: I had a telemed based audiovisual ACP meeting for 35min with pt dtr/POA, grandchildren and niece who were all present at the bedside with me via 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 They reaffirm her history and preferences for comfort. They shared further details of her disease progression which rapidly worsened after her covid. She has been "suffering since July" and her symptoms have not been signif improved. We discussed comfort care and rationale for moving to dilaudid We will stop PO meds, she is no longer taking PO We will increase robinul for secretion mgt She has complex cardiac physiology that makes diuretic mgt difficult, she has not had improvement with diuretic challenge this admission. We discussed changes of the dying process: Discussed changes pt may move through in the dying process including but not limited to sleeping more, disorientation when awake, restlessness, diminished senses/inability to respond to stimulus although ability to be aware of them remains intact longer, changes in body temperatures, skin changes/mottling/cyanosis, respiratory pattern changes, oral secretions. Family verbalized understanding. The goal is to assure a peaceful . Family aware I am in clinic tomorrow/return to [facility] Monday. (7) Encounter for end of life care: (8) Need for comfort care: (9) Palliative care by specialist: Met with pt/family. Provided overview of Palliative Medicine, a subspecialty that provides specialized medical care for people living with a serious illness by offering a focus on quality of life through reduction of symptom burden/more control over their illness, for both the patient and family. Plan Thank you for allowing us to participate in the ongoing care of this patient. Please don't hesitate to call or page with any additional concerns. Dr. Kristen Shukla [facility] Director, Palliative Care History of Present Illness Reason for Consultation: comfort care Attending Physician: Nawaf Persaud MD History of Present Illness Per admitting note: "Multiple recent admissions for heart failure exacerbation; diuretics discontinued due to left ventricular outflow obstruction due to HOCM, pulm fibrosis, covid related resp failure/foll by [facility] [place] Pulm. 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 POCUS exam shows likely LVOT obstruction and patient would benefit from fluids for now. Is very tenuous given her multiple cardiac co-morbidities and has high likelihood of going back into Acute HF exacerbation after fluid resuscitation and thus must be monitored closely. PMH: HCM with LVOT obstruction, AF with bradycardia and ventricular pauses, HOCM, HFpEF, Severe TR, Moderate Mitral Stenosis, hypertension, HLD, Severe Pulmonary HTN, Afib, on Eliquis, CKD stage 3, Graves disease, idiopathic pulmonary fibrosis with recurrent admission for heart failure Per dtr, she has had nine admissions this year for acute on chronic combined systolic and diastolic heart failure due to valvular disease, Symptomatic hypotension secondary to intracavitary LV gradient and likely HCM with JORGE, moderate mitral stenosis, mild aortic stenosis, left ventricular hypertrophy secondary to possible hcm, hypertensive heart disease, normal coronary arteries by cath 2021, chronic kidney disease stage III-IV Pertinent Cardiac History: 11/02/2023 TTE: Interpretation Summary The examination is limited quality but adequate for evaluation of the referral indication. The qualitative LV ejection fraction is 55-59% (normal). The septal motion is abnormal consistent with right ventricular pressure and volume overload. The right ventricular systolic function is mildly reduced . The left ventricular diastolic fillling pressure is elevated. Severe tricuspid regurgitation is present. Severe pulmonary hypertension is present. Dilated IVC with reduced collapsability with sniff indicates an elevated right atrial pressure of 15mmHg. Left Ventricle The qualitative LV ejection fraction is 55-59% (normal). The left ventricular cavity size is normal. The LV wall thickness is normal. There is no left ventricular mural thrombus. Left Ventricular Wall Motion The septal motion is abnormal consistent with right ventricular pressure and volume overload. Right Ventricle The right ventricular systolic function is mildly reduced . The right ventricular cavity size is enlarged (basal dimension > 4.2 cm RV apical 4 chamber view). Atria The left atrium is severely enlarged. The right atrium is moderately enlarged. Diastolic Function The left ventricular diastolic fillling pressure is elevated. Aortic Valve The aortic valve is moderately calcified. Mild aortic valve stenosis is present. Mild aortic valve regurgitation is present. Mitral Valve There is severe mitral annular calcification. The mitral valve leaflets are moderately calcified. Moderate mitral stenosis is present. Moderate mitral regurgitation is present. Tricuspid Valve Tricuspid stenosis is absent. Severe tricuspid regurgitation is present. Pulmonary Valve The pulmonary valve is inadequately visualized but the Doppler data is adequate for interpretation.. Pulmonic stenosis is absent. There is mild pulmonary regurgitation. Vessels The aortic root is normal sized. The proximal ascending thoracic aorta is mildly enlarged. Septae There is no evidence of an atrial septal defect but resolution does not allow assessment for a patent foramen ovale. Hemodynamics Dilated IVC with reduced collapsability with sniff indicates an elevated right atrial pressure of 15mmHg. Severe pulmonaryis present. 10/04/2021 Cardiac Catheterization: Normal coronaries. Pertintent Lung Diagnostics: CXR 07/30/23 IMPRESSION: Diffuse interstitial opacities favored to reflect a combination of pulmonary edema and chronic interstitial lung changes. Atypical pneumonia is not excluded. CTA chest 09/30/2021 Lungs: Paraseptal fibrotic and emphysematous changes noted without interval change. 6 x 4 mm pleural base nodule posteromedial right upper lobe image 65/8 is unchanged since 2016. Bibasilar bronchiectasis, unchanged. Stable chronic pleuroparenchymal changes dating back to 2016. Pleural spaces: See "Lungs" finding. Heart: Dense mitral valvular calcification. Coronary artery calcifications. No identified pulmonary embolus. Lymph nodes: Prominent mediastinal lymph nodes unchanged largest is 19 mm in short axis with preserved fatty hilum, stable since 2016. Bones/joints: Thoracic spondylosis, unchanged. Soft tissues: Unremarkable. Other findings: Sinus of Valsalva 36 mm, stable; Proximal descending 24 mm, stable; Distal descending 21 mm, stable. No dissection. IMPRESSION: No acute findings in the chest. No interval change from 02/28/2016. Echo 02/23/23 Interpretation Summary The qualitative LV ejection fraction is >70% (hyperdynamic). The LV wall thickness is severely increased (concentric). The left atrium is severely enlarged (>48 ml/m^2,). The aortic valve has three leaflets. The aortic valve is moderately calcified. Mild aortic valve stenosis is present. WENDY 1.5 cm2 per 2D planimetry. Mild aortic valve regurgitation is present. There is severe mitral annular calcification. The mitral valve chordae are thickened and diffusely calcified. Moderate mitral stenosis is present. Mild to moderate mitral regurgitation which may be underestimated due to acoustic shadowing related to severe mitral annular calcification. Moderate tricuspid regurgitation is present. The estimated pulmonary artery systolic pressure is 54mm Hg. The ascending aorta is moderately enlarged, 4.6 cm. Compared to last available study changes are noted as follows: The estimated systolic pulmonary arterial pressure has increased. - Allergies Allergy/AdvReac Type Severity Reaction Status Date / Time amoxicillin Allergy Hives Unverified 12/06/23 12:59 gatifloxacin AdvReac Nausea and Unverified 12/06/23 12:59 vomiting latex AdvReac Rash Unverified 12/06/23 12:59 Home Medications Medication Instructions Recorded Confirmed Type No Known Home Medications 12/06/23 12/06/23 History Patient History Social History Smoking Status: Never smoker Preferred Language: Yakut Marriage And Family Counselor Required: No Beliefs That Will Affect Care: None Feels Safe at Home: Yes Review of Systems Review of Systems: Unobtainable due to reduced consciousness Physical Exam Physical Exam: Telemedicine visit pt lying in bed, not responding, occ facial grimacing resp effort noted, use of accessory muscles noted no audible wheeze color ashen Results & Data Vital Signs (Past 12 Hours) Vital Signs Pulse Resp BP Pulse Ox O2 Del Method O2 Flow Rate 12/06/23 15:15 Nasal Cannula 4 12/06/23 12:02 60 25 H 94/61 L 84 L 12/06/23 11:46 61 16 112/59 L 86 L Non-rebreather 15 12/06/23 11:40 84 L Oxymask 4 12/06/23 11:03 62 20 91 Oxymask 5 12/06/23 11:03 60 20 93/53 L 98 Room Air 12/06/23 10:37 60 Laboratory Results 12/06/23 12/06/23 12/06/23 Range/Units 14:36 11:50 11:29 WBC (4.8-10.8) K/ul RBC (4.20-5.40) M/uL Hgb (12.0-16.0) g/dl POC Hgb 11.2 L (12.0-16.0) g/dl Hct (37.0-47.0) % POC Hct 33 L (37-47) % MCV (80.0-100.0) fL MCH (25.0-34.0) pg MCHC (32.0-36.0) g/dL RDW Std Deviation (36.4-46.3) fL RDW Coeff of Lance (11.5-14.5) % Plt Count (130-400) K/uL MPV (9.4-12.4) fL Immature Gran % (Auto) % Neut % (Auto) % Lymph % (Auto) % Medina % (Auto) % Eos % (Auto) % Baso % (Auto) % Neut # (Auto) (1.40-6.50) K/uL Lymph # (Auto) (1.20-3.40) K/uL Medina # (Auto) (0.11-0.59) K/uL Eos # (Auto) (0.00-0.50) K/uL Baso # (Auto) (0.00-0.20) K/uL Immature Gran # (Auto) (0.01-0.20) K/uL Absolute Nucleated RBC (0.00-0.12) K/uL Nucleated RBC % (auto) % Polychromasia Anisocytosis Echinocytes POC Sodium 124 L (135-144) mmol/L Sodium (136-145) mmol/L POC Potassium 5.0 (3.3-5.0) mmol/L Potassium (3.5-5.1) mmol/L POC Chloride 94 L (101-112) mmol/L Chloride (98-107) mmol/L Carbon Dioxide (21-32) mmol/L POC Total CO2 18 L (24-31) mmol/L Anion Gap (3-11) POC Anion Gap 19.0 (16-25) mmol/L POC BUN 65 H (7-18) mg/dl BUN (6-23) mg/dl Creatinine (0.6-1.2) mg/dl POC Creatinine 2.3 H (0.6-1.3) mg/dl Est Cr Clr Drug Dosing ml/min Est GFR ( Amer) ml/min Est GFR (Non-Af Amer) ml/min BUN/Creatinine Ratio (10-20) Glucose (70-99(Fasting)) mg/dl POC Glucose (other) 70 (70-99) mg/dl Lactate (0.4-2.0) mmol/L Calcium (8.6-10.3) mg/dl POC Ioniz Calcium Nadeem 1.11 L (1.12-1.32) mmol/l Magnesium (1.7-2.4) mg/dl Total Bilirubin (0.2-1.0) mg/dl Direct Bilirubin (0-0.2) mg/dl AST (13-39) U/L ALT (7-52) U/L Alkaline Phosphatase (34-104) U/L Troponin I High Sens 4.1 D (0-14) pg/ml B-Natriuretic Peptide (0-100) pg/ml Total Protein (6.0-8.3) gm/dl Albumin (3.4-5.0) gm/dl Procalcitonin (0-0.5) ng/ml Urine Color Dark Yellow Urine Appearance Cloudy A (Clear) Urine pH 5.0 (4.5-7.5) Ur Specific [place] 1.019 (1.000-1.030) Urine Protein Trace H (Negative) Urine Glucose (UA) Negative (Negative) Urine Ketones Trace H (Negative) Urine Blood Negative (Negative) Urine Nitrite Negative (Negative) Urine Bilirubin 1+ H (Negative) Urine Urobilinogen Negative (Negative) Ur Leukocyte Esterase 2+ H (Negative) Urine WBC (Auto) 21-50 H (0-5) /hpf Urine RBC (Auto) 3-5 H (0-2) /hpf U Hyaline Cast (Auto) >20 H (0-2) /lpf U Epithel Cells (Auto) 6-10 H (0-2) /hpf Urine Bacteria (Auto) None Seen (None Seen) Hyaline Casts Present A (None Presnt) /lpf Granular Casts Present A (None Prsent) /lpf 12/06/23 12/06/23 Range/Units 11:19 10:49 WBC 9.41 (4.8-10.8) K/ul RBC 3.66 L (4.20-5.40) M/uL Hgb 9.4 L (12.0-16.0) g/dl POC Hgb 12.6 (12.0-16.0) g/dl Hct 32.2 L (37.0-47.0) % POC Hct 37 (37-47) % MCV 88.0 (80.0-100.0) fL MCH 25.7 (25.0-34.0) pg MCHC 29.2 L (32.0-36.0) g/dL RDW Std Deviation 63.8 H (36.4-46.3) fL RDW Coeff of Lance 20.2 H (11.5-14.5) % Plt Count 188 (130-400) K/uL MPV 10.1 (9.4-12.4) fL Immature Gran % (Auto) 1.1 % Neut % (Auto) 86.0 % Lymph % (Auto) 7.8 % Medina % (Auto) 4.7 % Eos % (Auto) 0.3 % Baso % (Auto) 0.1 % Neut # (Auto) 8.10 H (1.40-6.50) K/uL Lymph # (Auto) 0.73 L (1.20-3.40) K/uL Medina # (Auto) 0.44 (0.11-0.59) K/uL Eos # (Auto) 0.03 (0.00-0.50) K/uL Baso # (Auto) 0.01 (0.00-0.20) K/uL Immature Gran # (Auto) 0.10 (0.01-0.20) K/uL Absolute Nucleated RBC 0.06 (0.00-0.12) K/uL Nucleated RBC % (auto) 0.6 % Polychromasia 1+ Anisocytosis Present Echinocytes 2+ POC Sodium 122 L (135-144) mmol/L Sodium 124 L (136-145) mmol/L POC Potassium 7.7 H* (3.3-5.0) mmol/L Potassium 5.0 (3.5-5.1) mmol/L POC Chloride 96 L (101-112) mmol/L Chloride 92 L (98-107) mmol/L Carbon Dioxide 17 L (21-32) mmol/L POC Total CO2 17 L (24-31) mmol/L Anion Gap 15 H (3-11) POC Anion Gap 18.0 (16-25) mmol/L POC BUN 82 H (7-18) mg/dl BUN 73 H (6-23) mg/dl Creatinine 2.14 H (0.6-1.2) mg/dl POC Creatinine 2.4 H (0.6-1.3) mg/dl Est Cr Clr Drug Dosing 18.9 ml/min Est GFR ( Amer) 23.5 ml/min Est GFR (Non-Af Amer) 20.3 ml/min BUN/Creatinine Ratio 34.1 H (10-20) Glucose 72 (70-99(Fasting)) mg/dl POC Glucose (other) 64 L* (70-99) mg/dl Lactate 5.9 H* (0.4-2.0) mmol/L Calcium 8.7 (8.6-10.3) mg/dl POC Ioniz Calcium Nadeem 0.99 L (1.12-1.32) mmol/l Magnesium 2.7 H (1.7-2.4) mg/dl Total Bilirubin 2.2 H (0.2-1.0) mg/dl Direct Bilirubin 1.1 H (0-0.2) mg/dl AST 46 H (13-39) U/L ALT 26 (7-52) U/L Alkaline Phosphatase 153 H (34-104) U/L Troponin I High Sens 341.5 H* (0-14) pg/ml B-Natriuretic Peptide 2736 H (0-100) pg/ml Total Protein 6.4 (6.0-8.3) gm/dl Albumin 3.2 L (3.4-5.0) gm/dl Procalcitonin 0.26 (0-0.5) ng/ml Urine Color Urine Appearance (Clear) Urine pH (4.5-7.5) Ur Specific [place] (1.000-1.030) Urine Protein (Negative) Urine Glucose (UA) (Negative) Urine Ketones (Negative) Urine Blood (Negative) Urine Nitrite (Negative) Urine Bilirubin (Negative) Urine Urobilinogen (Negative) Ur Leukocyte Esterase (Negative) Urine WBC (Auto) (0-5) /hpf Urine RBC (Auto) (0-2) /hpf U Hyaline Cast (Auto) (0-2) /lpf U Epithel Cells (Auto) (0-2) /hpf Urine Bacteria (Auto) (None Seen) Hyaline Casts (None Presnt) /lpf Granular Casts (None Prsent) /lpf Diagnostic Findings Chest X-Ray 12/06/23 10:52 XR chest 1V portable HISTORY: Sepsis COMPARISON: None. FINDINGS: No pneumothorax. No pleural effusions. The cardiac silhouette is mildly enlarged. Is left-sided single lead pacemaker. There is diffuse interstitial thickening and low lung volumes. Calcifications within the aortic knob. No acute fractures. Bibasilar densities are nonspecific. IMPRESSION: 1. Cardiomegaly with diffuse interstitial thickening. This may be chronic or represent mild congestive change. 2. Bibasilar densities may represent atelectasis or a pneumonitis. ACT 112: Negative or not required by law. Electronically signed by: Carlos Enrique Murrell M.D. 12/06/2023 11:11 AM PG Care Time/CCT Total # of Minutes Spent Total Time Spent with Patient: Total time spent is greater than 50% in coordination of care (as documented) at patient's floor/unit and/or counseling patient: I spent 85 minutes overall addressing this case: 25 min in medical data review/discussion with referring provider(s) and/or preparation for the visit including EMR Link for [employer] r review telemed 000/10min observational min in direct interaction with the patient/exam 35 min in Advance Care Planning/Goals of Care discussions as detailed above in note (must be >16min) 15 min in subsequent review and synthesis of assessment and plan 10 min communicating with other providers regarding the patient's case: Advanced Care Planning 19025 Advanced Care Planning 30 [place] [address] IN/OBS CONSULT LVL 4,60M (25 - SIGNIFICANT, SEPARATELY IDENTIFIABLE ) Patient Type New Medical Decision Making High Complexity Diagnoses Dyspnea and respiratory abnormalities R06.00; R06.89 Air hunger R09.89 Chest pain R07.9 Anxiety associated with dying process F41.1 Weakness generalized R53.1 Discussion about advance care planning held with family member Z71.0 Encounter for end of life care Z51.5 Need for comfort care Palliative care by specialist Z51.5 Additional Codes Advanced Care Planning - 44173 Advanced Care Planning 30 Min: 85178 Advanced Care Planning 30 Min ([id number])
[2023-12-06] MEDS: HYDROmorphone/NSS 100 MG/100 ML BAG IV SCH (17:46)
[2023-12-06] MEDS: HYDROmorphone BOLUS from BAG IV PRN (20:25)
--- OUTSIDE RECORDS SUMMARY | 2023-12-06 21:35 | External Medical Summary ---
Author Name Unknown Address Unknown Organization K09:[facility] [place] [id number] Laboratory Report Ordering Provider Test Date Status SINA OLMOS 11/30/2023 06:56:06 Final Observation Date Value Abnormality Reference (Units ) Status WBC, Total 11/30/2023 06:56:06 11.04 Above high normal 4 .00-10.80 (K/uL) Final RBC 11/30/2023 06:56:06 3.71 3.85-5.15 (M/uL) Final Hemoglobin 11/30/2023 06:56:06 9.8 Below low normal 12 .0-15.3 (g/dL) Final HCT 11/30/2023 06:56:06 33.4 Below low normal 36. 0-45.2 (%) Final MCV 11/30/2023 06:56:06 90.0 81.5-97.5 (fL) Final MCH 11/30/2023 06:56:06 26.4 27.0-34.0 (pg) Final MCHC 11/30/2023 06:56:06 29.3 32.0-36.0 (g/dL) Final RDW 11/30/2023 06:56:06 20.5 11.5-15.5 (%) Final Platelets 11/30/2023 06:56:06 232 140-400 (K /uL) Final MPV 11/30/2023 06:56:06 9.9 6.6-11.1 ( fL) Final Performing Location [facility] [address]
--- OUTSIDE RECORDS SUMMARY | 2023-12-06 21:35 | External Medical Summary | Summary of Care ---
Author Name Unknown Organization [facility] Address [address] [facility] [place] [address] Phone [phone] Care Team Providers Care Small Machine Bindery Operator Name Role Phone Jeanna Bal PA-C Primary Care Provi aydin Reason for Visit * Reason Onset Date Comments Appointment 11/30/2023 Hospital follow up Encounter Details Date Type Department Care Team (Late st Contact Info) Description 11/30/2023 Telephone Cardiology, [facility] [address] [place] [address] Rakesh Kimble O, [address] [place] [address] Appointment (Hospital follow up ) Allergies Active Allergy Reactions Criticality Noted Date Comments Amoxicillin Hives Medium 03/22/2016 Gatifloxacin Nausea/vomiting Medium 03/22/2016 Latex Rash Medium 03/22/2016 Other reaction(s): johnson documented as of this encounter (statuses as of 11/30/2023) Medications Medication Sig Dispensed Refills Start Date End Date Status Aspirin 81 MG TBEC Take 1 Tablet by mouth in the morning. 0 12/12/2015 Active cholecalciferol, VIT D3, (VITAMIN D3) 1000 UNITS Tablet Take 1 Tablet by mouth daily at noon. 0 06/08/2015 Active Cyanocobalamin (VITAMIN B-12) 1000 MCG Tablet Take 1 Tablet by mouth in the morning. 0 Active methIMAzole 5 MG Oral Tablet (TAPAZOLE) Take 0.5 Tablets by mouth. Take 1/2 tablet 6 days per week (does not take on Monday) 0 05/27/2020 Active Atorvastatin Calcium 20 MG Oral Tablet (Lipitor) Take 1 Tablet by mouth daily. 90 Tablet 6 06/17/2021 Active Additional Information Patient taking differently:20 mg OralQ-1999, Reported on 10/03/2023 Fluticasone Furoate-Vilanterol 100-25 MCG/ACT Inhalation Aerosol Powder Breath Activated (BREO ellipta) Inhale 1 Puff by mouth in the morning. 60 Each 5 08/08/2023 Active Classics Rolling Walker Use as directed. 1 Each 0 08/25/2023 Active Sennosides-Docusate Sodium 8.6-50 MG Oral Tablet (Senna-S) Take 1 Tablet by mouth in the morning. 0 Active Dorzolamide HCl-Timolol Mal 2-0.5 % Ophthalmic Solution (Cosopt) Instill 1 Drop into eye in the morning and 1 Drop before bedtime. 0 Active Latanoprost 0.005 % Ophthalmic Solution (Xalatan) Instill 1 Drop into both eyes at bedtime. 0 Active polyethylene glycol 3350 119 gram OR POWD Take 17 g by mouth as needed for Constipation. 0 Active Acetaminophen 325 MG Oral Capsule Take 2 Tablets by mouth as needed for Other (Temp above 100.5 or pain). 0 Active Apixaban 2.5 MG Oral Tablet (Eliquis) Take 1 Tablet by mouth in the morning and 1 Tablet before bedtime. 0 Active Fluticasone Propionate 50 MCG/ACT Nasal Suspension (Flonase) Administer 1 [place] into nostril in the morning. 0 Active rOPINIRole HCl 1 MG Oral Tablet (Requip) Take 1 Tablet by mouth every night at bedtime. 30 Tablet 0 11/14/2023 Active Metoprolol Succinate ER 50 MG Oral Tablet Extended Release 24 Hour (toPROL XL) Take 1 Tablet by mouth in the morning. 30 Tablet 0 11/29/2023 Active Hospital, Clinic, or Other Facility Administered Medication Ordered Dose Route Frequency Start Date End Date Status Albuterol Sulfate (Proventil) (2.5 MG/3ML) 0.083% inhalation solution 2.5 mgIndications:SOB (shortness of breath) 2.5 mg NEBULIZER PRN 10/16/2023 10/15/2024 Act toshia documented as of this encounter (statuses as of 11/30/2023) Active Problems Problem Noted Date Diagnosed Date Moderate mitral stenosis 11/24/2023 Moderate tricuspid regurgitation 11/24/2023 Moderate mitral regurgitation 11/24/2023 LVH (left ventricular hypertrophy) 11/23/2023 Acute respiratory failure with hypoxia Nonrheumatic tricuspid valve regurgitation 11/10 CKD (chronic kidney disease) stage 3, GFR 30-59 ml/min 11/07/2023 ILD (interstitial lung disease) 10/18/2023 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 10/04/2023 Nonrheumatic aortic valve stenosis 10/04/2023 Acute on chronic heart failure 10/03/2023 CARLOTA (acute kidney injury) 10/03/2023 Prolonged QT interval 10/03/2023 Acute combined systolic and diastolic CHF, NYHA class 1 10/03/2023 Generalized weakness 10/03/2023 Chronic heart failure with preserved ejection fr action 08/31/2023 Chronic atrial fibrillation 08/31/2023 Chronic hyponatremia 08/31/2023 Positive D dimer 08/30/2023 Influenza A 08/29/2023 Pulmonary HTN 08/29/2023 Elevated troponin 08/29/2023 Acute hyponatremia 08/29/2023 Generalized weakness 08/29/2023 Thrombocytopenia 08/29/2023 Permanent atrial fibrillation 08/29/2023 Petechial rash 08/29/2023 Oral thrush 08/29/2023 CAP (community acquired pneumonia) 08/19/2023 Acute on chronic combined sy stolic and diastolic heart failure due to valvular disease 07/30/2023 Graves disease 09/30/2021 Cardiac outflow obstruction 06/21/2020 Nonrheumatic mitral valve stenosis 06/21/2020 Ascending aortic 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 Coronary artery disease invo lving flandreau coronary artery of flandreau heart without angina pectoris 03/22/2016 Essential hypertension with goal blood pressure less than 140/90 03/22/2016 Dyslipidemia, goal to be determined 03/22/2016 documented as of this encounter (statuses as of 11/30/2023) Resolved Problems Problem Noted Date Diagnosed Date Resolved Date Bradycardia 2023 11/29/2023 Acute on chronic respiratory failure with hypoxia 08/19/2023 11/24/2023 Acute respiratory failure due to COVID-19 07/30/2023 08/01/2023 Pneumonia due to COVID-19 virus 07/30/2023 08/01/2023 NSTEMI (non-ST elevated myoc ardial infarction) 09/30/2021 10/05/2021 Pain in both lower extremities 03/22/2016 07/30/2023 documented as of this encounter (statuses as of 11/30/2023) Immunizations Name Administration Dates Next Due COVID-19 mRNA, LNP-s, No Pre serve, 2-Dose Series (Moderna) 05/26/2021,09/26/2020,08/29/2020 Varicella Zoster Vaccine (Adult) 06/28/2012 documented as of this encounter Social History Tobacco Use Types Packs/Day Years Used Date Smoking Tobacco: Never Passive Smoke Exposure: Past Smokeless Tobacco: Never Comments:Parents smoked in h ome growing up and then work place up until 1967 Alcohol Use Standard Drinks/Week Comments Not Currently 0 (1 standard drink = 0.6 oz pur e alcohol) Sex and Gender Information Value Date Recorded Sex Assigned at Not on file Gender Identity Not on file Sexual Orientation Not on file Job Start Date Occupation Industry Not on file Not on file Not on file documented as of this encounter Functional Status Functional Status Response Date of Assess ment Are you deaf or do you have serious difficulty h earing? No 11/23/2023 Are you blind or do you have serious difficulty seeing, even when wearing glasses? No 11/23/2023 Do you have serious difficul ty walking or climbing stairs? (5 years old or older) No 11/23/2023 Do you have difficulty dress ing or bathing? (5 years old or older) No 11/23/2023 Because of a physical, menta l, or emotional condition, do you have difficulty doing errands alone such as visiting a doctor s office or shopping? (15 years old or older) No 11/23/19 Cognitive Status Response Date of Assessm ent Because of a physical, menta l, or emotional condition, do you have serious difficulty concentrating, remembering, or making decisions? (5 years old or older) No 11/23/2023 documented as of this encounter Miscellaneous Notes * Telephone Encounter - Carlos Enrique Jose OSA - 11/30/2023 12:17 PM EDT Spoke with Daughter, patient is scheduled on: Wednesday December 06, 2023 Arrive by 10:45 AM Appt at 11:00 AM (30 min) * Telephone Encounter - Nereyda Palacio OSA - 11/30/2023 10:34 AM EDT Betty Price Adult Child [phone] Pt daughter is asking for an appointment for hospital follow up no sched avail Person calling: Bre Relationship to patient: dtr Number to return call: [phone] Reason for call: Pharmacy: na Provider Name:Ernestina Thank you ASH Mattson * Telephone Encounter - Rakesh Kimble DO - 11/30/2023 8:28 AM EDT Schedule patient for hospital follow up with ks 12/06/2023. documented in this encounter Plan of Treatment Upcoming Encounters Date Type Department Care Team (Late st Contact Info) Description 12/05/2023 11:00 AM EDT Cardiac Studies Cardiology, [place] [address] [address] [place] [address] [address] 12/06/2023 11:00 AM EDT Office Visit Cardiology, [facility] [address] [place] [address] Rakesh Kimble DO [address] [place] [address] 12/08/2023 9:00 AM EDT Office Visit Nephrology, [place] [address] [facility] [place] [address] Jef Kaminski MD [address] [facility] [place] [address] 12/13/2023 10:00 AM EDT Office Visit Gastroenterology, [facility] [address] [place] [address] Trenton Cameron CRNP [address] [place] [address] 12/21/2023 10:30 AM EDT Telemedicine Pulmonary Medicine [facility] [address] [place] [address] [address] [place] [address] Yocasta Proctor CRNP [address] [place] [address] 01/31/2024 1:00 PM EDT PulmDiagnostic Pulmonary Function Lab, [place] [address] [place] [address] Gjsh, Pulm Fun Tech [address] [place] [address] 02/20/2024 2:20 PM EDT Office Visit Nephrology, [place] [address] [place] [address] Jef Kaminski MD 200 [facility] [place] [address] Health Maintenance Due Date Last Done Comments Pneumococcal Vaccine: 65+ Years (1 of 2 - PCV) 11/29/1941 Depression Screening 1947 Albumin/Creatinine Ratio 11/29/1955 DTaP,Tdap,and Td Vaccines (1 - Tdap) 1956 Zoster Vaccines (2 of 3) 08/23/2012 06/28/2012 COVID-19 Vaccine ( season) 2023 08/05/2022, 05/26/2021, 09/26/2020, Additional history exists Influenza Vaccine (FLU shot) (Season Ended) 2024 CKD PHOS USE SMARTSET 40290 2024 05/0 07/2023, 2023, 11/27/2023, Additional history exists CKD HGB USE SMARTSET 54703 11/29/202411/29, 11/29/2023, 2023, Additional history exists DXA Scan 04/03/2027 04/03/2020, 04/03/2020 GARDASIL-HPV IMMUNIZATION SERIES Aged Out No longer eligible based on patient's age to complete this topic Hepatitis B Aged Out No longer eligi ble based on patient's age to complete this topic MENINGOCOCCAL (MENACTRA/MENVEO) Aged Out No longer eligible based on patient's age to complete this topic documented as of this encounter Medical Devices Implanted Type Area Identifier Horse Device Identifier Shelf Expiration Date Model / Serial / Lot Lead Novus Bipolar 58cm - [id number] Implanted:Qty: 1 on 11/27/2023 by Sol Duncan MD at [facility] [employer] : CRM [id number] 06/07/2024 5076- 58 / [id number] / [id number] Pacemaker Damaris S Sr Mri Wrls - [id number] Implanted:Qty: 1 on 11/27/2023 by Sol Duncan MD at [facility] [employer] [id number] 03/13/2025 W3S R01 / [id number] / [id number] documented as of this encounter Advance Directives Latest Code Status on File Code Status Date Activated Date Inactivated Comments No Code 11/23/2023 3:45 AM 11/29/2023 4:24 PM This o rder reflects the patients wishes and were consensually agreed upon. Question Answer Comments Discussion of Advance Directives occurred with: Patient Code Status History Code Status Date Activated Date Inactivated Comments Full Code 11/23/2023 3:23 AM 11/23/2023 3:45 AM This order reflects the patients wishes and were consensually agreed upon. Question Answer Comments Discussion of Advance Directives occurred with: Patient No Code 11/21/2023 7:27 PM 11/23/2023 3:07 AM This order reflects the patients wishes and were consensually agreed upon. Question Answer Comments Discussion of Advance Directives occurred with: Family Full Code 11/21/2023 6:51 PM 11/21/2023 7:27 PM This order reflects the patients wishes and were consensually agreed upon. Question Answer Comments Discussion of Advance Directives occurred with: Family Full Code 11/03/2023 8:37 PM 11/14/2023 7:57 PM This o rder reflects the patients wishes and were consensually agreed upon. Question Answer Comments Discussion of Advance Directives occurred with: Patient Care Teams Small Machine Bindery Operator Relationship Specialty Start Date End Date Jeanna Bal PA-C [address] [place] [address] [place] [id number] PCP - General Physician Account Assistant 06/13/17 documented as of this encounter
--- OUTSIDE RECORDS SUMMARY | 2023-12-06 21:35 | External Medical Summary ---
Author Name Unknown Address Unknown Organization K09:[facility] [place] [address] Laboratory Report Ordering Provider Test Date Status SINA OLMOS 11/30/2023 06:56:06 Final Observation Date Value Abnormality Reference (Units ) Status BUN 11/30/2023 06:56:06 50 Above high normal 6-20 (mg/dL) Final Creatinine 11/30/2023 06:56:06 1.4 Above high normal 0.5-1.0 (mg/dL) Final Glomerular filtration rate/1.73 sq M.predicted [Volume Rate/Area] in Serum, Plasma or Blood by Creatinine-based formula (CKD-EPI) 11/30/2023 06:56:06 38 Below low normal >=60 (mL/min) Final eGFR is calculated based on the CKD-EPI 2020 equation Sodium 11/30/2023 06:56:06 131 Below low normal 135 -146 (mmol/L) Final Potassium 11/30/2023 06:56:06 4.6 3.5-5.1 (m mol/L) Final Cl 11/30/2023 06:56:06 96 Below low normal 98- 107 (mmol/L) Final CO2 11/30/2023 06:56:06 23 22-32 (mmo l/L) Final Anion gap 11/30/2023 06:56:06 12 7-15 (mmol /L) Final Glucose 11/30/2023 06:56:06 85 70-120 (mg /dL) Final Calcium 11/30/2023 06:56:06 9.0 8.4-10.2 ( mg/dL) Final Performing Location [facility] [place] [address]
--- OUTSIDE RECORDS SUMMARY | 2023-12-06 21:35 | External Medical Summary | Summary of Care ---
Author Name Unknown Organization [facility] Address [address] [facility] [place] [address] Phone [phone] Care Team Providers Care Gettering Filament Machine Operator Name Role Phone Jeanna Bal PA-C Primary Care Provi aydin Reason for Visit * Reason Comments Pacemaker Clinic Encounter Details Date Type Department Care Team (Latest Contact Info) Description 12/05/2023 11:00 AM EDT Cardiac Studies Cardiology, [place] [address] [place] [address] [place] [address] [place] [address] Hypertrophic cardiomyopathy (HCC)*; Persistent atrial fibrillation (HCC); Cardiac pacemaker in situ Allergies Active Allergy Reactions Criticality Noted Date Comments Amoxicillin Hives Medium 03/22/2016 Gatifloxacin Nausea/vomiting Medium 03/22/2016 Latex Rash Medium 03/22/2016 Other reaction(s): johnson documented as of this encounter (statuses as of 12/05/2023) Medications Medication Sig Dispensed Refills Start Date [...] 50 MCG/ACT Nasal Suspension (Flonase) Administer 1 [place] into nostril in the morning. 0 Active [...] as of this encounter (statuses as of 12/05/2023) Active Problems Problem Noted Date Diagnosed Date [...] 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 Coronary artery disease invo lving stebbins coronary artery of stebbins heart without angina pectoris 03/22/2016 Essential hypertension with goal blood pressure less than 140/90 03/22/2016 Dyslipidemia, goal to be determined 03/22/2016 documented as of this encounter (statuses as of 12/05/2023) Resolved Problems Problem Noted Date Diagnosed Date Resolved Date Bradycardia 2023 11/29/2023 Acute on chronic respiratory failure with hypoxia 08/19/2023 11/24/2023 Acute respiratory failure due to COVID-19 07/30/2023 08/01/2023 Pneumonia due to COVID-19 virus 07/30/2023 08/01/2023 NSTEMI (non-ST elevated myoc ardial infarction) 09/30/2021 10/05/2021 Pain in both lower extremities 03/22/2016 07/30/2023 documented as of this encounter (statuses as of 12/05/2023) Immunizations Name Administration Dates Next Due COVID-19 [...] No 11/23/2023 documented as of this encounter Progress Notes * Estefanía Flores RN - 12/05/2023 2:28 PM EDT Patient and implanted device were evaluated today in the [facility]. Providers please see scanned report in the Scans tab. Estefanía Flores RN Left pectoral device pocket appears to be healing. Site is open to air Scant dried drainage is noted on incision line. Incision edges are in approximation. Resolving ecchymosis is noted. Area is softto palpation. Daughter ask to check incision daily for any changes. She is agreeable. Return to [facility] in 8 weeks for chronic threshold testing and potential reprogramming. Patient teaching verbal and booklet given. Patient teaching about new devices and device follow explained. Please make sure you diet is rich in fruits, vegetables, and healthy protein to promote proper healing. You can supplement with Boost or Ensure protein drinks. Do not lift any object over 10 pounds. Do not raise your elbow on the incision side above shoulder level in a repetitive manner. This gives the device lead wires time to attach securely inside your heart. Cleanse area with antibacterial soap and pat dry Please inspect your incision every day. Report any changes to the Device Clinic nurse, you should not have any drainage, redness, open areas or scabs. Advoidance of dental procedures for 6 months Carry an ID card that contains information about your pacemaker. You can show this card if your pacemaker sets off a metal detector. You should also show it to avoid screening with a hand-held security wand. Keep your cell phone away from your pacemaker. Dont carry the phone in your shirt pocket, even when its turned off. Avoid strong magnets. Examples are those used in MRIs or in hand-held security wands. Avoid strong electrical villatoro. Examples are those made by radio transmitting towers, ham radios, and heavy-duty electrical equipment. Avoid leaning over the open paula of a running car. A running engine creates an electrical field. documented in this encounter Plan of Treatment Upcoming Encounters Date Type Department Care Team (Late st Contact Info) Description 12/06/2023 11:00 AM EDT Office Visit Cardiology, [facility] [address] [place] [place] [address] Rakesh Kimble, [address] [place] [address] 12/13/2023 10:00 AM EDT Office Visit Gastroenterology, [facility] [address] [place] [address] Trenton Cameron CRNP [address] [place] [address] 12/21/2023 10:30 AM EDT Telemedicine Pulmonary Medicine [facility] [address] [place] [address] Yocasta Proctor CRNP [address] [place] [address] 01/30/2024 9:00 AM EDT Office Visit Nephrology, [facility] 200 [facility] [place] [address] Jef Kaminski MD [address] [place] [address] 01/31/2024 1:00 PM EDT PulmDiagnostic Pulmonary Function Lab, [place] [address] [place] [address] Gj, Pulm Fun Tech [address] [place] [address] 02/05/2024 1:30 PM EDT Cardiac Studies Cardiology, [place] [address] [facility] [place] [address] [place], [facility] [address] [facility] [place] [id number] Scheduled Orders Name Type Priority Associated Diagnoses Orde r Schedule POSTOP F-UP VISIT IN GLOBAL Procedures Routine Hypertrophic cardiomyopathy (HCC) Persistent atrial fibrillation (HCC) Cardiac pacemaker in situ Ordered: 12/05/2023 Health Maintenance Due Date Last Done Comments Pneumococcal Vaccine: 65+ Years (1 of 2 - PCV) 11/29/1941 Depression Screening 1947 Albumin/Creatinine Ratio 11/29/1955 DTaP,Tdap,and Td Vaccines (1 - Tdap) 1954 Zoster Vaccines (2 of 3) 08/23/2012 06/28/2012 COVID-19 Vaccine (5 - season) 2023 08/05/2022, 05/26/2021, 09/26/2020, Additional history exists Influenza Vaccine (FLU shot) (Season Ended) 2024 CKD PHOS USE SMARTSET 55245 2024 05/0 07/2023, 2023, 11/27/2023, Additional history exists CKD HGB USE SMARTSET 13694 11/29/202411/29, 11/29/2023, 2023, Additional history exists DXA [...] this encounter Medical Devices Implanted Type Area Md Psychiatry Device Identifier Shelf Expiration Date Model / Serial / Lot Lead Novus Bipolar 58cm - [id number] Implanted:Qty: 1 on 11/27/2023 by Sol Duncan MD at [facility] [employer] : CRM [id number] 06/07/2024 5076- 58 / [id number] / [id number] Pacemaker Primera S Sr Mri Wrls - [id number] Implanted:Qty: 1 on 11/27/2023 by Sol Duncan MD at [facility] [employer] [id number] 03/13/2025 W3S R01 / [id number] / [id number] documented as of this encounter Visit Diagnoses Diagnosis Hypertrophic cardiomyopathy (HCC)- Primary Other hypertrophic cardiomyopathy Persistent atrial fibrillation (HCC) Atrial fibrillation Cardiac pacemaker in situ documented in this encounter Advance Directives Latest Code Status [...] Advance Directives occurred with: Patient Care Teams Gettering Filament Machine Operator Relationship Specialty Start Date End Date Jeanna Bal PA-C [address] [place] [address] [place] [address] PCP - General Physician Deboner 06/13/17 documented as of this encounter
--- OUTSIDE RECORDS SUMMARY | 2023-12-06 21:35 | External Medical Summary | Summary of Care ---
Author Name Unknown Organization [facility] Address [address] [facility] [place] [address] Phone [phone] Care Team Providers Care Ball Points Inspector Name Role Phone Jeanna Bal PA-C Primary Care Provi aydin Reason for Visit * Reason Onset Date Comments Appointment 11/30/2023 Hospital follow up Encounter Details Date Type Department Care Team (Late st Contact Info) Description 11/30/2023 Telephone Cardiology, [facility] [address] [place] [address] Rakesh Kimble O, [address] [place] [address] Appointment (Hospital follow up ) Allergies Active [...] 50 MCG/ACT Nasal Suspension (Flonase) Administer 1 [place] into nostril in the morning. 0 Active [...] 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 Coronary artery disease invo lving [place] coronary artery of [place] heart without angina pectoris 03/22/2016 Essential hypertension [...] 10:34 AM EDT Betty Price Adult Child [phone] Pt daughter is asking for an appointment for hospital follow up no sched avail Person calling: Bre Relationship to patient: dtr Number to return call: [phone] Reason for call: Pharmacy: na Provider Name:Ernestina Thank you ASH Mattson * Telephone Encounter - Rakesh Kimble DO - 11/30/2023 8:28 AM EDT Schedule patient for hospital follow up with ak 12/06/2023. documented in this encounter Plan of Treatment Upcoming Encounters Date Type Department Care Team (Late st Contact Info) Description 12/05/2023 11:00 AM EDT Cardiac Studies Cardiology, [place] [address] [address] [place] [place] [facility] [address] [address] 12/06/2023 11:00 AM EDT Office Visit Cardiology, [facility] [address] [place] [address] Rakesh Kimble DO [address] [place] [address] 12/08/2023 9:00 AM EDT Office Visit Nephrology, [place]as [facility] [place] [address] Jef Kaminski MD 200 [facility] [place] [address] 12/13/2023 10:00 AM EDT Office Visit Gastroenterology, [facility] [address] [place] [address] Trenton Cameron CRNP [address] [place] [address] 12/21/2023 10:30 AM EDT Telemedicine Pulmonary Medicine [facility] [address] [place] [address] [address] [place] [address] Yocasta Proctor CRNP [address] [place] [address] 01/31/2024 1:00 PM EDT PulmDiagnostic Pulmonary Function Lab, [place] [id number] [place] [address] Gjsh, Pulm Fun Tech [address] [place] [address] 02/20/2024 2:20 PM EDT Office Visit Nephrology, Jonas Seth [address] [place] [address] Jef Kaminski MD 200 [facility] [place] [address] Health Maintenance Due Date Last Done Comments Pneumococcal Vaccine: 65+ Years (1 of 2 - PCV) 11/29/1941 Depression Screening 1949 Albumin/Creatinine Ratio 11/29/1955 DTaP,Tdap,and Td Vaccines (1 - Tdap) 1956 Zoster Vaccines (2 of 3) 08/23/2012 06/28/2012 COVID-19 Vaccine ( season) 2023 08/05/2022, 05/26/2021, 09/26/2020, Additional history exists Influenza Vaccine (FLU shot) (Season Ended) 2024 CKD PHOS USE SMARTSET 29133 2024 05/0 07/2023, 2023, 11/27/2023, Additional history exists CKD HGB USE SMARTSET 54150 11/29/202411/29, 11/29/2023, 2023, Additional history exists DXA [...] this encounter Medical Devices Implanted Type Area Band Attacher Device Identifier Shelf Expiration Date Model / Serial / Lot Lead Novus Bipolar 58cm - [id number] Implanted:Qty: 1 on 11/27/2023 by Sol Duncan MD at [facility] [employer] : CRM [id number] 06/07/2024 5076- 58 / [id number] / [id number] Pacemaker Damaris S Sr Mri Wrls - [id number] Implanted:Qty: 1 on 11/27/2023 by Sol Duncan MD at [facility] [employer] [id number] 03/13/2025 W3S R01 / [id number] / [id number] documented as of this encounter Advance Directives [...] Advance Directives occurred with: Patient Care Teams Ball Points Inspector Relationship Specialty Start Date End Date Jeanna Bal PA-C [address] [place] [address] [place] [phone] PCP - General Physician Fiberglass Quality Technician 06/13/17 documented as of this encounter
--- OUTSIDE RECORDS SUMMARY | 2023-12-06 21:36 | External Medical Summary ---
Author Name Unknown Address Unknown Organization [id number]:LABORATORY [facility] - [address] [facility] [facility] [address] [facility] [address] [place] [address] Laboratory Report Ordering Provider Test Date Status NADINE DURÁN 11/29/2023 07:00:00 Final Observation Date Value Abnormality Reference (Units ) Status BUN 11/29/2023 07:00:00 48 Above high normal 6-20 (mg/dL) Final Creatinine 11/29/2023 07:00:00 1.3 Above high normal 0.5-1.0 (mg/dL) Final Glomerular filtration rate/1.73 sq M.predicted [Volume Rate/Area] in Serum, Plasma or Blood by Creatinine-based formula (CKD-EPI) 11/29/2023 07:00:00 41 Below low normal >=60 (mL/min) Final eGFR is calculated based on the CKD-EPI 2020 equation Sodium 11/29/2023 07:00:00 138 135-146 (m mol/L) Final Potassium 11/29/2023 07:00:00 4.5 3.5-5.1 (m mol/L) Final Cl 11/29/2023 07:00:00 103 98-107 (mm ol/L) Final CO2 11/29/2023 07:00:00 22 22-32 (mmo l/L) Final Anion gap 11/29/2023 07:00:00 13 7-15 (mmol /L) Final Glucose 11/29/2023 07:00:00 110 70-120 (mg /dL) Final Calcium 11/29/2023 07:00:00 9.2 8.4-10.2 ( mg/dL) Final Performing Location [facility]ORY [facility] - [address] [place] [address]
--- OUTSIDE RECORDS SUMMARY | 2023-12-06 21:36 | External Medical Summary ---
Author Name Unknown Address Unknown Organization K01:[facility] - [address] [place] [address] Laboratory Report Ordering Provider Test Date Status NADINE DURÁN 2023 04:18:00 Final Observation Date Value Abnormality Reference (Units ) Status Phosphate 2023 04:18:00 3.4 2.5-4.8 (m g/dL) Final Performing Location [facility] - [address] [place] [address]
--- OUTSIDE RECORDS SUMMARY | 2023-12-06 21:36 | External Medical Summary ---
Author Name Unknown Address Unknown Organization K01:[facility] - [address] [facility] [address] [place] [address] Laboratory Report Ordering Provider Test Date Status NADINE DURÁN 11/29/2023 07:00:00 Final Observation Date Value Abnormality Reference (Units ) Status Magnesium 11/29/2023 07:00:00 2.4 1.5-2.6 (m g/dL) Final Performing Location [facility] - [address] [place] [address]
--- OUTSIDE RECORDS SUMMARY | 2023-12-06 21:36 | External Medical Summary ---
Author Name Unknown Address Unknown Organization K01:[facility] - [address] [place] [address] Laboratory Report Ordering Provider Test Date Status NADINE DURÁN 11/29/2023 07:00:00 Final Observation Date Value Abnormality Reference (Units ) Status Phosphate 11/29/2023 07:00:00 2.8 2.5-4.8 (m g/dL) Final Performing Location [facility] - [address] [place] [address]
--- OUTSIDE RECORDS SUMMARY | 2023-12-06 21:36 | External Medical Summary | Summary of Care ---
Author Name Unknown Organization [facility] Address [address] [place] [address] Phone [phone] Care Team Providers Care Systems Development Consultant Name Role Phone Jeanna Bal PA-C Primary Care Provi aydin Reason for Visit * Reason Onset Date Comments Appointment 11/29/2023 Encounter Details Date Type Department Care Team (Late st Contact Info) Description 11/29/2023 Telephone [facility] Card[facility] [address] [place] [address] Nishi Marie MD [address] [place] [address] Appointment Allergies Active Allergy Reactions Criticality Noted Date Comments Amoxicillin Hives Medium 03/22/2016 Gatifloxacin Nausea/vomiting Medium 03/22/2016 Latex Rash Medium 03/22/2016 Other reaction(s): johnson documented as of this encounter (statuses as of 11/29/2023) Medications Medication Sig Dispensed Refills Start Date [...] 50 MCG/ACT Nasal Suspension (Flonase) Administer 1 [place] into nostril in the morning. 0 Active [...] as of this encounter (statuses as of 11/29/2023) Active Problems Problem Noted Date Diagnosed Date [...] 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 Coronary artery disease invo lving [place] coronary artery of [place] heart without angina pectoris 03/22/2016 Essential hypertension with goal blood pressure less than 140/90 03/22/2016 Dyslipidemia, goal to be determined 03/22/2016 documented as of this encounter (statuses as of 11/29/2023) Resolved Problems Problem Noted Date Diagnosed Date Resolved Date Bradycardia 2023 11/29/2023 Acute on chronic respiratory failure with hypoxia 08/19/2023 11/24/2023 Acute respiratory failure due to COVID-19 07/30/2023 08/01/2023 Pneumonia due to COVID-19 virus 07/30/2023 08/01/2023 NSTEMI (non-ST elevated myoc ardial infarction) 09/30/2021 10/05/2021 Pain in both lower extremities 03/22/2016 07/30/2023 documented as of this encounter (statuses as of 11/29/2023) Immunizations Name Administration Dates Next Due COVID-19 [...] encounter Miscellaneous Notes * Telephone Encounter - Marie, Nishi Dallas, MD - 11/29/2023 2:58 PM EDT Called daughter Betty twice howver went to voicemeil. Voicemail left notifying of Cardiology cupertino appointment on Dec 05 2023 at 11:00 for pacemaker evaluation. documented in this encounter Plan of Treatment Upcoming Encounters Date Type Department Care Team (Late st Contact Info) Description 12/05/2023 11:00 AM EDT Cardiac Studies Cardiology, [place] [address] [place] [address] [place] [address] [place] [address] 12/08/2023 9:00 AM EDT Office Visit [facility]phrology, [facility] [address] [facility] [address] [place] [address] Jef Kaminski MD [address] [facility] [place] [address] 12/13/2023 10:00 AM EDT Office Visit Gastroenterology, [facility] [address] [address] Trenton Cameron CRNP [address] [place] [address] 12/18/2023 8:30 AM EDT Telemedicine Cardiology, [facility] [address] [address] Jennifer Queen PA-C [address] [place] [address] 12/21/2023 10:30 AM EDT Telemedicine Pulmonary Medicine Medical [facility] [place] [address] [place] [address] Yocasta Proctor CRNP [address] [place] [address] 01/31/2024 1:00 PM EDT PulmDiagnostic Pulmonary Function Lab, [facility] [address] [place] [address] Gjsh, Pulm Func Tech [address] [place], [place] [address] 02/20/2024 2:20 PM EDT Office Visit Nephrology, [facility] 200 [place] [address] Jef Kaminski MD [address] [place] [address] Health Maintenance Due Date Last Done Comments Pneumococcal Vaccine: 65+ Years (1 of 2 - PCV) 11/29/1941 Depression Screening 1949 Albumin/Creatinine Ratio 11/29/1955 DTaP,Tdap,and Td Vaccines (1 - Tdap) 1956 Zoster Vaccines (2 of 3) 08/23/2012 06/28/2012 COVID-19 Vaccine (5 - season) 2023 08/05/2022, 05/26/2021, 09/26/2020, Additional history exists Influenza Vaccine (FLU shot) (Season Ended) 2024 CKD HGB USE SMARTSET 03604 11/28/202411/28, 2023, 11/27/2023, Additional history exists CKD PHOS USE SMARTSET 96557 2024 05/0 07/2023, 2023, 11/27/2023, Additional history exists DXA Scan 04/03/2027 04/03/2020, [...] this encounter Medical Devices Implanted Type Area Spiral Runner Device Identifier Shelf Expiration Date Model / Serial / Lot Lead Novus Bipolar 58cm - [id number] Implanted:Qty: 1 on 11/27/2023 by Sol Duncan MD at [facility] [employer] : CRM [id number] 06/07/2024 5076- 58 / [id number] / [id number] Pacemaker Damaris S Sr Mri Wrls - [id number] Implanted:Qty: 1 on 11/27/2023 by Sol Duncan MD at [facility] [employer] [id number] 03/13/2025 W3S R01 / [id number] / [id number] documented as of this encounter Advance Directives Latest Code Status on File Code Status Date Activated Date Inactivated Comments No Code 11/23/2023 3:45 AM This order reflects the [...] Advance Directives occurred with: Patient Care Teams Systems Development Consultant Relationship Specialty Start Date End Date Jeanna Bal PA-C [address] [place] [address] [place] [phone] PCP - General Physician Newspaper Reporter 06/13/17 documented as of this encounter
--- OUTSIDE RECORDS SUMMARY | 2023-12-06 21:36 | External Medical Summary | Summary of Care ---
Author Name Unknown Organization [facility] Address [address] [place] [address] Phone [phone] Care Team Providers Care Regional Sales Manager Name Role Phone Jeanna Bal PA-C Primary Care Provi aydin Encounter Details Date Type Department Care Team (Late st Contact Info) Description 11/27/2023 CardioDiagnostic Study Cardiology [facility] [place] [address] [place] [address] De Castellon, [address] [place] [address] EKG Report Allergies Active Allergy Reactions Criticality Noted Date Comments Amoxicillin Hives Medium 03/22/2016 Gatifloxacin Nausea/vomiting Medium 03/22/2016 Latex Rash Medium 03/22/2016 Other reaction(s): johnson documented as of this encounter (statuses as of 2023) Medications Medication Sig Dispensed Refills Start Date End Date Status Aspirin 81 MG TBEC Take 1 Tablet by mouth in the morning. 0 12/12/2015 Suspended cholecalciferol, VIT D3, (VITAMIN D3) 1000 UNITS Tablet Take 1 Tablet by mouth daily at noon. 0 06/08/2015 Suspended vitamin c (ASCORBIC ACID) 500 MG Tablet Take 1 Tablet by mouth daily at noon. 0 06/08/2015 Suspended Vitamin E 400 UNITS Tablet Take 1 Tablet by mouth daily at noon. 0 06/08/2015 Suspended Cyanocobalamin (VITAMIN B-12) 1000 MCG Tablet Take 1 Tablet by mouth in the morning. 0 Suspended methIMAzole 5 MG Oral Tablet (TAPAZOLE) Take 0.5 Tablets by mouth. Take 1/2 tablet 6 days per week (does not take on Monday) 0 05/27/2020 Suspended Atorvastatin Calcium 20 MG Oral Tablet (Lipitor) Take 1 Tablet by mouth daily. 90 Tablet 6 06/17/2021 Suspended Additional Information Patient taking differently:20 mg OralQ-1999, Reported on 10/03/2023 Ipratropium-Albut lola 0.5-2.5 (3) MG/3ML Inhalation Solution (Duoneb) Inhale 0.5 mg by mouth every 6 hours as needed for Shortness of Breath, Cough or Wheezing. 0 08/07/2023 Suspended Fluticasone Furoate-Vilantero l 100-25 MCG/ACT Inhalation Aerosol Powder Breath Activated (BREO ellipta) Inhale 1 Puff by mouth in the morning. 60 Each 5 08/08/2023 Suspended Additional Information Classics Rolling Walker Use as directed. 1 Each 0 08/25/2023 Suspended Additional Information Benzonatate 100 MG Oral Capsule Take 2 Capsules by mouth 3 times a day as needed for Cough. 30 Capsule 0 08/25/2023 Suspended Additional Information Patient not taking.Reported on 11/21/2023 Sennosides-Docusa te Sodium 8.6-50 MG Oral Tablet (Senna-S) Take 1 Tablet by mouth in the morning. 0 Suspended Dorzolamide HCl-Timolol Mal 2-0.5 % Ophthalmic Solution (Cosopt) Instill 1 Drop into eye in the morning and 1 Drop before bedtime. 0 Suspended Preparation H 1-0.25-14.4-15 % External Cream (Tcowlj-JY-Hjnxdl in-Petrolatum) Apply 1 Application topically to affected area every 8 hours as needed for Hemorrhoids. Apply to rectal area 0 Suspended Bisacodyl 10 MG Rectal Suppository (Dulcolax) Administer 1 Suppository into the rectum as needed for Constipation. 0 Suspended Latanoprost 0.005 % Ophthalmic Solution (Xalatan) Instill 1 Drop into both eyes at bedtime. 0 Suspended polyethylene glycol 3350 119 gram OR POWD Take 17 g by mouth as needed for Constipation. 0 Suspended Acetaminophen 325 MG Oral Capsule Take 2 Tablets by mouth as needed for Other (Temp above 100.5 or pain). 0 Suspended Enema Disposable Rectal Enema Administer 1 Application into the rectum as needed for Constipation. 0 Suspended Apixaban 2.5 MG Oral Tablet (Eliquis) Take 1 Tablet by mouth in the morning and 1 Tablet before bedtime. 0 Suspended Miconazole Nitrate 2 % External Powder (Remedy) Apply topically to affected area 2 times a day. Apply to groin 85 g 0 10/09/2023 Suspended Additional Information Patient not taking.Reported on 11/21/2023 Potassium Chloride ER 10 MEQ Oral Capsule Extended Release Take 2 Capsules by mouth in the morning and 2 Capsules before bedtime. 0 10/12/2023 Suspended Fluticasone Propionate 50 MCG/ACT Nasal Suspension (Flonase) Administer 1 [place] into nostril in the morning. 0 Suspended rOPINIRole HCl 1 MG Oral Tablet (Requip) Take 1 Tablet by mouth every night at bedtime. 30 Tablet 0 11/14/2023 Suspended Additional Information Spironolactone 50 MG Oral Tablet (Aldactone) Take 1 Tablet by mouth in the morning. 30 Tablet 3 11/14/2023 Suspended Additional Information Torsemide 40 MG Oral Tablet Take 40 mg by mouth in the morning and 40 mg before bedtime. 60 Tablet 0 11/14/2023 Suspended Additional Information metOLazone 2.5 MG Oral Tablet (Zaroxolyn) TAKE 1 tablet for more than 3 lb weight gain in a day or more than 5 lbs in a week 30 Tablet 5 11/14/2023 Suspended Additional Information Empagliflozin 10 MG Oral Tablet (Jardiance) Take 1 Tablet by mouth in the morning. Do not start before November 15, 2023. 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 07/30/2023 Graves disease 09/30/2021 Cardiac outflow obstruction 06/21/2020 Nonrheumatic mitral valve stenosis 06/21/2020 Ascending aortic 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 Coronary artery disease invo lving [place] coronary artery of [place] heart without angina pectoris 03/22/2016 Essential hypertension with goal blood pressure less than 140/90 03/22/2016 Dyslipidemia, goal to be determined 03/22/2016 documented as of this encounter (statuses as of 2023) Resolved Problems Problem Noted Date Diagnosed Date Resolved Date New onset atrial fibrillation 08/29/2023 11/07/2023 Acute on chronic respiratory failure with hypoxia 08/19/2023 11/24/2023 Acute respiratory failure due to COVID-19 07/30/2023 08/01/2023 Pneumonia due to COVID-19 virus 07/30/2023 08/01/2023 NSTEMI (non-ST elevated myoc ardial infarction) 09/30/2021 10/05/2021 Pain in both lower extremities 03/22/2016 07/30/2023 documented as of this encounter (statuses as of 2023) Immunizations Name Administration Dates Next Due COVID-19 [...] No 11/23/2023 documented as of this encounter Procedure Notes * Rakesh Meek MD - 11/27/2023 8:16 PM EDTAssociated Order(s): EKG REPORT REASON FOR STUDY: Sepsis (HCC) CONCLUSIONS: Atrial rhythm undetermined Ventricular pacing Appropriate ventricular capture Abnormal ECG When compared with ECG of 27-Nov-2023 18:04, No significant change was found Ventricular Rate: 70 Atrial Rate: 37 QRS Duration: 210 QT/QTc: 518/559 ms P-R-T [place]: 0 : -78 : 93 degrees documented in this encounter Plan of Treatment Upcoming Encounters Date Type Department Care Team (Late st Contact Info) Description 12/07/2023 1:30 PM EDT Cardiac Studies Cardiology [facility] [place] [address] [place] [address] Clinic, Heart Rhythm Device [address] [place], [place] [id number] 12/08/2023 9:00 AM EDT Office Visit Nephrology, [facility] 200 [facility] [place] [address] Jef Kaminski MD [address] [facility] [place] [address] 12/13/2023 10:00 AM EDT Office Visit Gastroenterology, [facility] [address] [facility] [place] [address] Trenton Cameron CRNP 132 [place] [address] 12/18/2023 8:30 AM EDT Telemedicine Cardiology, [facility] [address] [place] [address] Jennifer Queen, RADHA 132 [place] [address] 12/21/2023 10:30 AM EDT Telemedicine Pulmonary Medicine [facility] [place] [address] [facility] [address] [place] [address] Yocasta Proctor CRNP [address] [place] [address] 01/31/2024 1:00 PM EDT PulmDiagnostic Pulmonary Function Lab, [place] [address] [place], [place] [phone] Gjsh, Pulm Func Tech [facility] [place] [address] 02/20/2024 2:20 PM EDT Office Visit Nephrology, Jonas Seth [address] [facility] [place] [address] Jef Kaminski MD [address] [facility] [place] [address] Health Maintenance Due Date Last Done Comments Pneumococcal Vaccine: 65+ Years (1 of 2 - PCV) 11/29/1941 Depression Screening 1949 Albumin/Creatinine Ratio 11/29/1955 DTaP,Tdap,and Td Vaccines (1 - Tdap) 1956 Zoster Vaccines (2 of 3) 08/23/2012 06/28/2012 COVID-19 Vaccine (5 - 2022- season) 2023 08/05/2022, 05/26/2021, 09/26/2020, Additional history exists Influenza Vaccine (FLU shot) (Season Ended) 2024 DXA Scan 04/03/2027 04/03/2020, 04/03/2020 GARDASIL-HPV IMMUNIZATION SERIES Aged Out No longer eligible based on patient's age to complete this topic Hepatitis B Aged Out No longer eligi ble based on patient's age to complete this topic MENINGOCOCCAL (MENACTRA/MENVEO) Aged Out No longer eligible based on patient's age to complete this topic documented as of this encounter Medical Devices Implanted Type Area Central Supply Manager Device Identifier Shelf Expiration Date Model / Serial / Lot Lead Novus Bipolar 58cm - [id number] Implanted:Qty: 1 on 11/27/2023 by Sol Duncan MD [place] [facility] [employer] : CRM [id number] 06/07/2024 5076- 58 / [id number] / [id number] Pacemaker [place] S Sr Mri Wrls - [id number] Implanted:Qty: 1 on 11/27/2023 by Sol Duncan MD at [facility] [employer] [id number] 03/13/2025 W3S R01 / [id number] / [id number] documented as of this encounter Procedures Procedure Name Priority Date/Time Associated Diagnosis Comments EKG REPORT 11/27/2023 8:16 PM EDT documented in this encounter Results * EKG REPORT (11/27/2023 8:16 PM EDT) 11/27/2023 8:16 PM EDT Narrative Procedure Note Rakesh Meek MD - 11/27/2023 8:16 PM EDT REASON FOR STUDY: Sepsis (HCC) CONCLUSIONS: Atrial rhythm undetermined Ventricular pacing Appropriate ventricular capture Abnormal ECG When compared with ECG of 27-Nov-2023 18:04, No significant change was found Ventricular Rate: 70 Atrial Rate: 37 QRS Duration: 210 QT/QTc: 518/559 ms P-R-T [place]: 0 : -78 : 93 degrees De Castellon DO EKG documented in this encounter Advance Directives Latest [...] Advance Directives occurred with: Patient Care Teams Regional Sales Manager Relationship Specialty Start Date End Date Jeanna Bal PA-C [address] [place] [address] [place] [phone] PCP - General Physician Rn Case Mgr 06/13/17 documented as of this encounter
--- OUTSIDE RECORDS SUMMARY | 2023-12-06 21:36 | External Medical Summary | Summary of Care ---
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 [address] [place] [address] Referral ID Status Reason Start Date Expiration Date Visits Re quested Visits Authorized [id number] Encounter Details Date Type Department Care Team (Latest Contact Info) Description 11/23/2023 3:07 AM EDT - 11/29/2023 12:19 PM EDT Hospital Encounter [facility]AM 8, [facility] 8th Floor [address] [place], [place] [id number] Eri Bbain MD [address] [place] [address] De Castellon DO [address] [place], [place] Various: EKG,CDIQDC Discharge Disposition: IP Rehab Allergies Active Allergy Reactions Criticality Noted Date [...] differently:20 mg OralQ-1999, Reported on 10/03/2023 Fluticasone Furoate-Vilanter ol 100-25 MCG/ACT Inhalation Aerosol Powder Breath Activated (BREO ellipta) Inhale 1 Puff by mouth in the morning. 60 Each 5 08/08/2023 Active Classics Rolling Walker Use as directed. 1 Each 0 08/25/2023 Active Sennosides-Docus ate Sodium 8.6-50 MG Oral Tablet (Senna-S) Take [...] 50 MCG/ACT Nasal Suspension (Flonase) Administer 1 [place] into nostril in the morning. 0 Active rOPINIRole HCl 1 MG Oral Tablet (Requip) Take 1 Tablet by mouth every night at bedtime. 30 Tablet 0 11/14/2023 Active Metoprolol Succinate ER 50 MG Oral Tablet Extended Release 24 Hour (toPROL XL) Take 1 Tablet by mouth in the morning. 30 Tablet 0 11/29/2023 Active vitamin c (ASCORBIC ACID) 500 MG Tablet Take 1 Tablet by mouth daily at noon. 0 06/08/2015 4 Discontinued Vitamin E 400 UNITS Tablet Take 1 Tablet by mouth daily at noon. 0 06/08/2015 4 Discontinued Ipratropium-Albu terol 0.5-2.5 (3) MG/3ML Inhalation Solution (Duoneb) Inhale 0.5 mg by mouth every 6 hours as needed for Shortness of Breath, Cough or Wheezing. 0 08/07/2023 4 Discontinued Benzonatate 100 MG Oral Capsule Take 2 Capsules by mouth 3 times a day as needed for Cough. 30 Capsule 0 08/25/2023 4 Discontinued Preparation H 1-0.25-14.4-15 % External Cream (Ivppry-TV-Sgssx rin-Petrolatum) Apply 1 Application topically to affected area every 8 hours as needed for Hemorrhoids. Apply to rectal area 0 4 Discontinued Bisacodyl 10 MG Rectal Suppository (Dulcolax) Administer 1 Suppository into the rectum as needed for Constipation. 0 4 Discontinued Enema Disposable Rectal Enema Administer 1 Application into the rectum as needed for Constipation. 0 4 Discontinued Miconazole Nitrate 2 % External Powder (Remedy) Apply topically to affected area 2 times a day. Apply to groin 85 g 0 10/09/2023 4 Discontinued Potassium Chloride ER 10 MEQ Oral Capsule Extended Release Take 2 Capsules by mouth in the morning and 2 Capsules before bedtime. 0 10/12/2023 4 Discontinued Spironolactone 50 MG Oral Tablet (Aldactone) Take 1 Tablet by mouth in the morning. 30 Tablet 3 11/14/2023 4 Discontinued Torsemide 40 MG Oral Tablet Take 40 mg by mouth in the morning and 40 mg before bedtime. 60 Tablet 0 11/14/2023 4 Discontinued metOLazone 2.5 MG Oral Tablet (Zaroxolyn) TAKE 1 tablet for more than 3 lb weight gain in a day or more than 5 lbs in a week 30 Tablet 5 11/14/2023 4 Discontinued Empagliflozin 10 MG Oral Tablet (Jardiance) Take 1 Tablet by mouth in the morning. Do not start before November 15, 2023. 30 Tablet 0 11/15/2023 4 Discontinued documented as of this encounter (statuses as [...] 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 Coronary artery disease invo lving wrangell coronary artery of wrangell heart without angina pectoris 03/22/2016 Essential hypertension [...] on file documented as of this encounter Last Filed Vital Signs Vital Sign Reading Time Taken Comments Blood Pressure 107/80 11/29/2023 8:00 AM EDT Pulse 62 11/29/2023 6:00 AM EDT Temperature 35.6 C (96.1 F) 11/29/2023 8:00 AM ED T Respiratory Rate 18 11/29/2023 8:00 AM EDT Oxygen Saturation 99% 11/29/2023 8:00 AM EDT Inhaled Oxygen Concentration - - Weight 79.4 kg (175 lb 1.6 oz) 11/29/2023 5:55 A M EDT Height 154.9 cm (5' 1") 11/23/2023 3:00 AM EDT Body Mass Index 33.08 11/23/2023 3:00 AM EDT documented in this encounter Functional Status Functional Status Response [...] No 11/23/2023 documented as of this encounter Discharge Summaries * De Castellon, - 11/29/2023 10:32 AM EDT [address] [address] Admission Date: 11/23/2023 Discharge Date: 11/29/2023 RECOMMENDED TO DO FOR NEXT PROVIDER(S): Patient was noted to have severe multi-valvular abnormalities along with LVOT and HOCM. Patient presented with resolved at OSH acute on chronic hypoxic respiratory failure secondary to overload and baseline ILD. Respiratory status is also effected by ILD and severe pulmonary hypertension. Patient has a very complex physiology, upon further consideration patient had pacemaker placement to improve beta blockade and therefore increasing cardiac output. It is imperative before giving any diuretics or fluids to speak with a Railcar Switcher regarding proper management. Patient has a very tenuous fluid status due to complex physiology which can easily tipeither way. Dry weight noted to be 79 kg. Patient's valvular gradients improved after discontinuation of diuretics and with PPM and Toprol therapy. Patient monitored through admission decision made to discontinue diuretics as patient maintain euvolemia without any diuretic therapy while admitted. 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) Moderate mitral stenosis Moderate tricuspid regurgitation Moderate mitral regurgitation LVH (left ventricular hypertrophy) ILD (interstitial lung disease) (HCC) Pulmonary HTN (HCC) Permanent atrial fibrillation (HCC) Cardiac outflow obstruction Resolved Hospital Problems Diagnosis Date Resolved Bradycardia 11/29/2023 Acute on chronic respiratory failure with hypoxia ([facility]) 11/24/2023 Attending Provider: De Castellon DO CONDITION ON DISCHARGE: stable DISPOSITION ON DISCHARGE: rehab: [facility] [place] FOLLOW-UP: Future Appointments Appt Date/Time Provider Department 12/07/2023 1:30 PM Clinic, [facility] Cardiology [facility] 12/08/2023 9:00 AM Jef Kaminski MD Nephrology, [facility] 12/13/2023 10:00 AM Trenton Cameron CRNP Gastroenterology, [facility] 12/18/2023 8:30 AM Jennifer Queen PA-C Cardiology, [facility] 12/21/2023 10:30 AM Yocasta Protcor CRNP Pulmonary Medicine Medical [facility] 01/31/2024 1:00 PM Stephanie Caputo [facility] Tech Pulmonary Function Lab, [facility] 02/20/2024 2:20 PM Jef Kaminski MD Nephrology, [facility] Outpatient testing already scheduled: Follow-up with electrophysiology Outpatient testing that needs to be arranged: Cardiology Inpatient test results pending: none MEDICATIONS ON DISCHARGE: MEDICATION UPDATES AT DISCHARGE START taking these medications INSTRUCTIONS metoprolol succinate XL 50 MG Tb24 Commonly known as: toPROL XL Take 1 Tablet by mouth in the morning. CHANGE how you take these medications INSTRUCTIONS atorvaSTATin 20 MG Tablet Commonly known as: Lipitor What changed: when to take this Take 1 Tablet by mouth daily. CONTINUE taking these medications INSTRUCTIONS Acetaminophen 325 MG Caps Take 2 Tablets by mouth as needed for Other (Temp above 100.5 or pain). Apixaban 2.5 MG Tabs Commonly known as: Eliquis Take 1 Tablet by mouth in the morning and 1 Tablet before bedtime. aspirin enteric coated 81 MG Tbec Take 1 Tablet by mouth in the morning. cholecalciferol (VIT D3) 1000 UNITS Tablet Commonly known as: Vitamin D3 Take 1 Tablet by mouth daily at noon. Classicandrea Osman Misc Use as directed. Cosopt 2.23-0.68% ophthalmic solution Generic drug: dorzolamide-timolol Instill 1 Drop into eye in the morning and 1 Drop before bedtime. fluticasone 50 MCG/ACT nasal spray Commonly known as: Flonase Administer 1 [place] into nostril in the morning. fluticasone furoate-vilanterol 100-25 MCG/ACT Aepb Commonly known as: BREO ellipta Inhale 1 Puff by mouth in the morning. Latanoprost 0.005 % ophthalmic solution Commonly known as: Xalatan Instill 1 Drop into both eyes at bedtime. methIMAzole 5 MG Tablet Commonly known as: Tapazole Take 0.5 Tablets by mouth. Take 1/2 tablet 6 days per week (does not take on Monday) polyethylene glycol 3350 119 gram Powd Commonly known as: Miralax Take 17 g by mouth as needed for Constipation. rOPINIRole 1 MG Tablet Commonly known as: Requip Take 1 Tablet by mouth every night at bedtime. Senna-S 8.6-50 MG per tablet Generic drug: senna-docusate Take 1 Tablet by mouth in the morning. Vitamin B-12 1000 MCG Tablet Commonly known as: Cyanocobalamin Take 1 Tablet by mouth in the morning. STOP taking these medications albuterol-ipratropium 2.5-0.5 MG/3ML nebulizer solution Commonly known as: Duoneb Benzonatate 100 MG Capsule Commonly known as: Tessaljanak Portillo Bisacodyl 10 MG suppository Commonly known as: Dulcolax Enema Disposable Enem Jardiance 10 MG Tabs Generic drug: Empagliflozin metOLazone 2.5 MG Tablet Commonly known as: Zaroxolyn Miconazole Nitrate 2 % Powd Commonly known as: Remedy Potassium Chloride ER 10 MEQ Cpcr Preparation H 1-0.25-14.4-15 % Crea Generic drug: Krxfls-RT-Vrojxhiw-Petrolatum Spironolactone 50 MG Tablet Commonly known as: Aldactone Torsemide 40 MG Tabs Vitamin C 500 MG Tablet Commonly known as: Ascorbic Acid Vitamin E 400 units Tablet ALLERGIES: Amoxicillin, Gatifloxacin, and Latex INSTRUCTIONS: Diet: heart healthy diet Code Status: No Code ADMISSION HISTORY & PHYSICAL EXAM (focused): Presenting Problem: HOCM, AoC CHF HPI: Maria Luisa Recinos is a 87 year old female with PMH of HOCM, HFpEF, Severe TR, Moderate Mitral Stenosis, hypertension, HLD, Severe Pulmonary HTN, Afib, on Eliquis, CKD stage 3, Graves disease, idiopathicpulmonary fibrosis with recurrent admission for heart failure that presents to [facility] as transfer from [facility] for Ao HF exacerbation in setting of severe TR and HOCM. Patient originally presented to [place] yesterday for acute on chronic respiratory failure, CHF exacerbation, urinary retention and altered mental status. She received 3 Liters of fluids at the [facility]. Required insertion of laws catheter with immediate output of 1.2 Liters improving the abdominal discomfort patient was experiencing as well as her mental status. Weight on admission 84 kg (185lb). Patient initially required High Flow Oxygen and titrated from 5 Liters NC to 3 Liters. Received Lasix 80 mg as well as Lasix 60 BID. Was given one time doses of Vanc & Cefepime for empiric PNA coverage at admission. Unfortunately, diuresis was complicated by hypotension thus Cardiology wasconsulted and recommended transfer to [facility] for further management. Upon arrival patient reports feeling much better than when she presented to [place]. Is now on Room air and has no shortness of breath at rest. Has needed 3L of supplemental O2 at the [facility] recently. Denies any chest pain, lightheadedness, dizziness, palpitations, N/V. Of note, has multiple recent admissions for CHF exacerbations. General: Elderly female laying flat in bed, appears comfortable HEENT: Sclera white, extraocular muscles intact, oral mucosa pink and moist Neck: No obvious thyromegaly or JVD Cardiovascular: RRR, systolic murmur present Respiratory: CTAB, no wheezes, rales, or rhonchi; no increased respiratory effort Abdomen: Soft, non-tender, non-distended, normal bowel sounds Musculoskeletal: No joint deformity Extremities: No lower extremity edema bilaterally, 2/4 pedal pulses bilaterally Neuro: Moves all extremities equally, no focal deficits Psych: normal affect, responds to questions appropriately Skin: No rashes, no skin lesions HOSPITAL COURSE (focused): Patient presented to [facility] on 11/23/2023 as a transfer due to progressive shortness of breath. Upon arrival to [facility] patient shortness of breath had resolved andshe had been diuresed. Decision was made to discontinue diuretics and monitor patient as she had LVOT with HCM. Multiple medication therapies were trialed however patient became hypotensive and bradycardic. Decision was made to place a pacemaker to help start beta- blockade. Patient tolerated beta vikki and discontinuation of diuretics. DAY OF DISCHARGE PHYSICAL EXAM: General: Conscious, alert, cooperative and in no immediate distress Chest: Fair bilateral air entry, Rales: none, Wheezes: None Heart: S1 S2 audible, rhythm regular rate normal, .Abdomen: soft, no tenderness Extremities: Warm, well perfused, edema: none Neuro: alert Operations & Procedures: Pacemaker placement 11/26 Tapia Interpretation (focused): Implantation of a single chamber pacemaker Fluoroscopy of the leads SELECTED RESULTS: Last recorded weight: Weight: 79.4 kg (175 lb 1.6 oz) (11/29/23 05) Laboratory: CARDIAC: Troponin T (see below for last three most recent values): Lab Results Component Value Date/Time TROPT 69 (H) 11/22/2023 05:00 AM TROPT 74 (H) 11/21/2023 04:42 PM TROPT 74 (H) 11/21/2023 03:49 PM TROPT 15 (H) 06/18/2020 01:46 PM TROPT 18 (H) 06/18/2020 11:30 AM CHEMISTRY: BUN, Creatinine, GFR Estimated, Sodium, Potassium, Chloride, Carbon Dioxide, Glucose, Calcium (see below for most recent value): Lab Results Component Value Date/Time BUN 48 (H) 11/29/2023 07:00 AM BUN 19 06/18/2020 11:30 AM CREAT 1.3 (H) 11/29/2023 07:00 AM CREAT 0.9 06/18/2020 11:30 AM GFRESTIMATED >60.0 06/18/2020 11:30 AM NA 138 11/29/2023 07:00 AM NA 133 (L) 06/18/2020 11:30 AM POTASSIUM 4.5 11/29/2023 07:00 AM POTASSIUM 3.8 06/18/2020 11:30 AM CL 103 11/29/2023 07:00 AM CL 99 06/18/2020 11:30 AM CO2 22 11/29/2023 07:00 AM CO2 27 06/18/2020 11:30 AM CA 9.2 11/29/2023 07:00 AM CA 10.2 06/18/2020 11:30 AM HEMOGLOBIN: Hgb (see below for last three most recent values): Lab Results Component Value Date/Time HGB 10.6 (L) 11/29/2023 07:00 AM HGB 9.7 (L) 2023 04:18 AM HGB 9.6 (L) 11/27/2023 04:27 AM HGB 14.3 09/28/2022 11:56 AM HGB 14.0 08/18/2021 08:32 AM HGB 13.0 02/05/2021 09:13 AM HGB 14.2 06/18/2020 11:30 AM Complications: none CONSULTS ORDERED: ADULT OCCUPATIONAL THERAPY CONSULT IP ADULT PHYSICAL THERAPY CONSULT IP ELECTROPHYSIOLOGY CONSULT IP REFERRING PHYSICIAN: Ref: SUZIE WOOD[[id number]] [address] [place] [address] (office) [phone] (fax) PRIMARY CARE PROVIDER: PCP: Sally Mahmood PA-C [address] [place] [address] MARILYN ROJAS [phone] (office) [phone] (fax) Note: To contact a physician responsible for this patients hospital care, please call [facility] [phone]. I saw and evaluated the patient today. I have reviewed the trainee note and agree. Complex cardiac physiology in the sense of her thickened ventricle, hcm physiology causing armaan-septal contact and mid cavitary obstruction. She is sensitive to diuretics which induce mid cavitary obstruction and precipitate hypotension. Cessation of all diuretics has led to improvement in her symptoms and overall medical course. She has chronic rales diffusely from her pulmonary fibrosis, this is NOT client account representative of pulmonary edema. Staff message sent to Dr. Kimble for follow up, she will need close follow up and input on diuretics if necessary. documented in this encounter Discharge Instructions * Discharge Instr - AVS* Nishi Marie MD - 11/24/2023 10:48 AM EDT Discharge Date: 11/29/2023 The information below provides you with the instructions and the list of medications you need to betaking following discharge from the hospital. If you have any questions, please ask before leaving.Please carry this letter with you when you see your doctor in the clinic. If you have questions, you can reach us at the numbers above. YOUR HOSPITAL PROVIDERS: Discharging Physician: De Castellon DO Fellow Physician: Dr.Michael Romano Resident Physician: Nishi Marie MD Department: Cardiology IF YOU HAVE QUESTIONS: You may call the Department of Cardiology at [phone] m-S during business hours for any questions or test results. For after-hours emergencies call [phone] and have your doctor paged. Scheduling services is available between the hours of 8:00 am and 9:00 pm by calling . For routine questions, your [facility] Cardiology Team prefers the use of RedBee. RedBee is an online internet tool to help you meet your health care needs quickly by providing a secure, confidential way to view your health records and communicate with your [facility] Cardiology Team. To sign up for RedBee go to [email or web address], "Click" [place] Now on the right side of the screen and complete the user registration information. A BRIEF SUMMARY OF YOUR HOSPITAL STAY: You were admitted to the hospital after you presented with the concern of being volume overloaded and short of breath. You were evaluated with blood work and imaging studies, you received multiple doses of Lasix prior to arriving to [facility]. Upon arrival here you were monitored fora couple of days until your medications were adjusted. You underwent a pacemaker placement on 11/26. You did well post procedure and discharged to [facility] with a new medication called Toprol. We stopped your diuretics. Your main diagnosis at discharge was: Acute hypoxic respiratory failure due to valvular disease Operations & Procedures performed: Pacemaker placement 11/26 Complications: none Inpatient test results that are pending at discharge: none IMPORTANT INSTRUCTIONS TO SHOW WHEN EVER HOSPITALIZED OR AT PCP OFFICE: Patient was noted to have severe multi-valvular abnormalities along with LVOT and HOCM. Patient presented with resolved at OSH acute on chronic hypoxic respiratory failure secondary to overload and baseline ILD. Respiratory status is also effected by ILD and severe pulmonary hypertension. Patient has a very complex physiology, upon further consideration patient had pacemaker placement to improve beta blockade and therefore increasing cardiac output. It is imperative before giving any diuretics or fluids to speak with a Railcar Switcher regarding proper management. Patient has a very tenuous fluid status due to complex physiology which can easily tipeither way. Dry weight noted to be 79 kg. Patient's valvular gradients improved after discontinuation of diuretics and with PPM and Toprol therapy. Patient monitored through admission decision made to discontinue diuretics as patient maintain euvolemia without any diuretic therapy while admitted. YOUR FOLLOW UP APPOINTMENTS: Primary Care Provider Information: PCP: ASLLY MAHMOOD [address] [place] [address] [phone] An appointment was requested with your PCP for within 1 week of discharge from the hospital. (Please take this form to this visit with your primary care physician.) Cardiology follow-up: 1 week and separate electrophysiology appointment You need the following studies in the future: none INSTRUCTIONS: Diet: Heart healthy diet, 2 gram sodium diet New Implant Do not shower or get the incision wet until 12/04/2023. Do not apply any creams, lotions, or ointments to the incision until the wound is completely healed. Keep a careful eye on your incision line. If you have any unusual pain, swelling or drainage from the incision, please call the [facility]. Your incision line was closed with Stitches. Please remove the large brown bandage on 12/04/2023 and leave open to air. Do not apply any more bandages. You may use extra strength Tylenol every 4-6 hours for incisional pain. Do not use Tylenol if you are allergic to the medication. Do not lift more than 15 lbs pounds for 3 weeks. Do not lift your elbow past your shoulder for [address] until 1 week after your procedure. If you have driving restrictions related to other issues, please adhere to those restrictions. The company that manufactured your pacemaker is [employer]. A temporary identification card is provided with your booklet of information. Please carry this with you. You will receive a permanent identification card from the company in about 3-12 weeks. If you have any questions about your pacemaker please call the [facility]. The [facility] phone number is [phone]. The Clinic is open 8:00 to 4:30 Mondaythrough Monday. The 24-hour number for after hours, weekends and holidays is [phone]. Discharge teaching done. Information reviewed with patient. Questions answered. Return to clinic appointment given for 12/07/2023 at 1:30. Cardiovascular RISK FACTOR control YOUR RISK FACTOR TREATMENT GOALS: Controlling the factors that cause arteries to form blockages will reduce your chance of having new blockages. Work with your health care providers to control your risk factors. If you have trouble reaching these goals then ask your health care provider to work with you further until they are controlled. Diabetes - In diabetics, hemoglobin A1C is a measure of the average blood sugar over the past 3 months. The goal is less than 7.0. Your result is: 5.9%. Hypertension - Goal is less than 120/80. High cholesterol LDL cholesterol (bad cholesterol) - goal is less than 70 mg/dl. HDL cholesterol (good cholesterol) - goal is greater than 40 mg/dl in men and 50 mg/dl in women. Triglycerides (other blood fats that are especially elevated in diabetics and pre-diabetics) - goalis less than 150 mg/dl. Your Lipid Panel Results are: Results for orders placed or performed during the hospital encounter of 11/03/23 LIPID PANEL WITHOUT DIRECT LDL Result Value Ref Range Triglycerides 50 <=174 mg/dL Cholesterol 49 <200 mg/dL HDL Cholesterol 24 (L) >49 mg/dL Non-HDL Cholesterol 25 <=159 mg/dL LDL Cholesterol 15 <=129 mg/dL Results for orders placed or performed during the hospital encounter of 10/01/21 LIPID PANEL WITH DIRECT LDL IF TG IS HIGH Result Value Ref Range Triglycerides 91 <=174 mg/dL Cholesterol 121 <200 mg/dL HDL Cholesterol 52 >49 mg/dL Non-HDL Cholesterol 69 <=159 mg/dL LDL Cholesterol 51 <=129 mg/dL Tobacco - Tobacco is poison to your arteries. It will cause blockages. Continuing to smoke tobacco may lead to heart attacks, strokes, or leg amputation. You should avoid tobacco. Your goal is to notsmoke at all. Talk with your primary care provider about counseling and medications to help you stop smoking. Exercise - The [place] [employer] recommends walking 30 minutes a day most days of the week; if you have to lose weight you should walk 60-90 minutes a day. Remember that if you develop chestpain, you should stop what you are doing. Do not continue to exercise if you have chest pain. See your special activity instructions above. [place] weight - Your BMI (a measure of ideal body weight) is Body mass index is 33.52 kg/m.. Your BMI should be less than 25. Your waist size also predicts risk of heart attack: a woman's waist should be less than 35 inches and a man's waist less than 40. Maintaining your ideal body weight will help your heart, reduce blood pressure, blood sugar, and cholesterol, improve or help prevent diabetes, and improve or help prevent congestive heart failure. MEDICATION CHANGES START TAKING THE FOLLOWING MEDICINES: 1. Toprol (this is a medication to control your heart rate) - Take 50 mg, daily STOP TAKING THE FOLLOWING MEDICINES: 1. Jardiance - It was discontinued because it was affecting her volume status 2. Preparation H - It was discontinued because you are no longer taking the medication at home 3. Miconazole - It was discontinued because you are no longer taking the medication at home 4. Metolazone (this is a water pill) - It was discontinued because of you no longer needing the medication 5. Potassium - It was discontinued because you were no longer on metolazone or torsemide 6. Torsemide (this is a water pill) - It was discontinued because you no longer need this medication as you did okay in the hospital without it. 7. Spironolactone (this is a water pill) It was discontinued because you no longer need this medication as you did okay in the hospital without it. 8. Preparation H - It was discontinued because you were no longer taking this medication at home. 9. Vitamin C and Vitamin E - Discontinued due to patient preference CONTINUE TAKING ALL OTHER MEDICINES PRESCRIBED documented in this encounter Progress Notes * Sabrina Medina RN - 2023 7:52 AM EDT PACEMAKER DISCHARGE INSTRUCTIONS New Implant Do not shower or get the incision wet until 12/04/2023. Do not apply any creams, lotions, or ointments to the incision until the wound is completely healed. Keep a careful eye on your incision line. If you have any unusual pain, swelling or drainage from the incision, please call the [facility]. Your incision line was closed with Stitches. Please remove the large brown bandage on 12/04/2023 and leave open to air. Do not apply any more bandages. You may use extra strength Tylenol every 4-6 hours for incisional pain. Do not use Tylenol if you are allergic to the medication. Do not lift more than 15 lbs pounds for 3 weeks. Do not lift your elbow past your shoulder for [address] until 1 week after your procedure. If you have driving restrictions related to other issues, please adhere to those restrictions. The company that manufactured your pacemaker is [employer]. A temporary identification card is provided with your booklet of information. Please carry this with you. You will receive a permanent identification card from the company in about 3-12 weeks. If you have any questions about your pacemaker please call the [facility]. The [facility] phone number is [phone]. The Clinic is open 8:00 to 4:30 Mondaythrough Monday. The 24-hour number for after hours, weekends and holidays is [phone]. Discharge teaching done. Information reviewed with patient. Questions answered. Return to clinic appointment given for 12/07/2023 at 1:30. Sabrina KEITH RN 2023 7:53 AM * Nishi Marie MD - 2023 6:26 AM EDT PROGRESS NOTE - Cardiology [address] [address] Name: Maria Luisa Recinos Location: [facility] [id number] Date: 2023 Time: 6:26 AM Date of admission: 11/23/2023 Hospital length of stay: 5 days Subjective Summary Patient transferred from [facility] after concerns of heart failure exacerbation in the [facility] and [facility]. Patient presented due to acute on chronic respiratory failure with concerns of CHF exacerbation. Patient had received 3 L of fluids at the nursing facility had a Laws catheter in place leading to 1.2 L of output. Was initially on high-flow nasal cannula weaned down to 5 L then to 3 L patient also received 80 in 60 mg of Lasix. Patient was transferred to [facility] for further evaluation upon arrival to [facility] patient is currently on room air. Subjective: No acute events overnight, patient is feeling well. She denies pain at pacemaker site. Objective CONSTITUTIONAL DATA / OBJECTIVE: Vital Signs (Most Recent): Blood Pressure: 95/64 mmHg Last 12H: Most Recent Systolic BP Av.5 mmHg Min: 95 mmHg Max: 114 mmHg Pulse: 70 Last 12H: Pulse Av.3 Min: 70 Max: 71 Temperature: 36.2 C (97.2 F) Last 12H: Most Recent Temperature Av.22 C Min: 36.22 C Max: 36.22 C Respiratory Rate: 18 O2 Saturation: 89 % Vital Signs (Last 24 Hours): Pulse Av Min: 54 Max: 71 No data recorded Most Recent Systolic BP Av.3 mmHg Min: 95 mmHg Max: 114 mmHg Most Recent Diastolic BP Av.3 mmHg Min: 64 mmHg Max: 84 mmHg Resp Av.3 Min: 16 Max: 18 Most Recent Temperature Av.2 C Min: 36.11 C Max: 36.22 C SpO2 Av % Min: 89 % Max: 100 % Intake & Output Summary (Last 24 hours): Intake/Output Summary (Last 24 hours) at 2023 06 Last data filed at 2023 0521 Gross per 24 hour Intake -- Output 500 ml Net -500 ml Net IO Since Admission: -300 mL [11/23/23 0813] Height & Weight: Height: 154.9 cm (5' 1") (11/23/23 0300) Weight: 79.1 kg (174 lb 4.8 oz) (11/28/23 0535) Weight change: -1.678 kg (-3 lb 11.2 oz) Body mass index is 32.93 kg/m. Physical Examination: General: In no distress Heart: regular rate Pulmonary: Rales bilaterally Abdomen: Soft, non-tender Extremities: No edema Site: healing well Skin: Warm Neuro: AAOx3. Peripheral Line Left Hand 22 Gauge (Active) Number of days: 1 Laboratory Values: reviewed. -- Brief labs below include the 7 most recent results over the past week. Lab results within last 7 days (see chart for full results) Units 11/21/23 1549 pH, Venous units 7.443* pCO2, Venous mmHg 40.3 pO2, Venous mmHg 16.7* Base Excess, Venous mmol/L 3.2* Lab results within last 7 days (see chart for full results) Units 11/28/23 0418 11/27/23 0427 11/26/23 0502 11/25/23 0516 11/24/23 0642 11/23/23 1302 11/23/23 0530 Sodium mmol/L 132* 131* 132* 136 135 136 133* Potassium mmol/L 3.8 4.3 4.3 5.3* 4.2 4.2 2.5* Chloride mmol/L 97* 95* 96* 101 100 97* 94* CO2 mmol/L 20* 23 20* 22 22 24 24 BUN mg/dL 55* 59* 53* 51* 42* 42* 44* Creatinine mg/dL 1.4* 1.7* 1.7* 1.7* 1.4* 1.3* 1.4* Estimated Glomerular Filtration Rate mL/min 38* 30* 28* 29* 36* 39* 39* Glucose mg/dL 67* 83 80 84 101 141* 98 Calcium mg/dL 9.0 9.3 9.3 9.5 9.1 9.2 9.2 Magnesium mg/dL 2.4 2.4 2.5 2.3 2.1 2.1 2.0 Phosphorus mg/dL 3.4 3.7 3.9 3.7 3.1 2.5 -- Anion Gap mmol/L 15 13 16* 13 13 15 15 Lab results within last 7 days (see chart for full results) Units 11/28/23 0418 11/27/23 0427 11/26/23 0502 11/25/23 0516 11/24/23 0642 11/23/23 0530 11/22/23 0500 WBC K/uL 9.02 9.21 9.39 9.66 11.37* 11.04* 10.06 HGB g/dL 9.7* 9.6* 10.2* 9.7* 10.1* 10.5* 9.0* HCT % 33.0* 32.2* 35.0* 33.0* 33.0* 34.5* 30.1* PLT K/uL 225 254 267 265 280 301 264 MCV fL 89.9 90.2 92.6 92.2 88.9 89.6 89.9 Lab results within last 7 days (see chart for full results) Units 11/22/23 0500 11/21/23 1642 11/21/23 1549 Troponin T, High Sensitivity ng/L 69* 74* 74* Lab results within last 7 days (see chart for full results) Units 11/21/23 1549 Prothrombin Time seconds 22.3* INR 1.9* aPTT seconds 45* Lab results within last 7 days (see chart for full results) Units 11/22/23 0500 11/21/23 1549 Albumin g/dL 3.0* 3.4* Protein g/dL 6.3 7.0 Bilirubin, Total mg/dL 1.4* 1.5* AST U/L 40* 46* ALT U/L 29 35 Alkaline Phosphatase U/L 148* 166* Lab results within last 7 days (see chart for full results) Units 11/22/23 0344 11/21/23 2016 11/21/23 1832 11/21/23 1549 Lactate, Whole Blood mmol/L 1.8 3.5* 2.8* 2.8* Procalcitonin ng/mL -- -- -- 0.15* Cultures: reviewed. Lab results within last 7 days (see chart for full results) Units 11/21/23 1556 Coronavirus SARS-CoV-2 by PCR Negative Recent Cultures (2 Weeks) 11/21/2023 11/21/2023 08/29/2023 08/19/2023 4:42 PM 3:49 PM 4:38 PM 4:37 PM STAIN DESCRIPTION -- -- -- Specimen contaminated with epithelial cells client account representative of oropharyngeal contamination. Further processing may yield potentially misleading results. CULTURE GROWTH -- -- -- Specimen unsatisfactory. Not tested. BLOOD CULTURE GROWTH No growth No growth No growth -- No growth Radiographic Studies: reviewed. No imaging results in the last 72 hours Cardiac Studies: 11/23/2023 TTE The examination is limited quality but adequate for evaluation of the referral indication. There was atrial fibrillation during the examination. The qualitative LV ejection fraction is 60-64% (normal). The LV wall thickness is severely increased (concentric). No LV segmental wall motion abnormalities. The resting peak instantaneous left ventricular outflow tract gradient is 58 mm Hg. The inducible peak instantaneous left ventricular outflow tract gradient is 72 mm Hg. Moderate mitral stenosis is present. There is moderate mitral regurgitation at rest. Moderate tricuspid regurgitation is present. The right ventricular cavity is moderately dilated. The right ventricular systolic function is mildly reduced . Indeterminate IVC size and collapsability. Right atrial pressure estimated at 8 mmHg. Moderate pulmonary hypertension is present. The estimated pulmonary artery systolic pressure is 50mm Hg. Current Facility-Administered Medications: potassium chloride ER tab 20 mEq, 20 mEq, Oral, Once, De Martinez DO Metoprolol Tartrate (Lopressor) tab 25 mg, 25 mg, Oral, BID(AM/PM), Nishi Marie MD, 25 mg at 11/27/23 2125 nystatin oral susp 500,000 Units, 500,000 Units, Swish & Swallow, QID(AM/NOON/PM/HS), Nishi Marie MD, 500,000 Units at 11/28/23 0512 albuterol-ipratropium (Duoneb) inhalation solution 3 mL, 3 mL, Nebulizer, Q4H PRN, Eri Babin MD aspirin chew tab 81 mg, 81 mg, Oral, Daily(AM), De Martinez DO, 81 mg at 11/27/23 0823 atorvaSTATin (Lipitor) tab 20 mg, 20 mg, Oral, Daily(AM), De Martinez DO, 20 mg at 823 dorzolamide-timolol (Cosopt Ocumeter Plus) ophthalmic solution 1 Drop, 1 Drop, Both eyes, BID(AM/PM), De Martinez DO, 1 Drop at 11/27/232124 fluticasone (Flonase) nasal inhaler 1 Monterey, 1 Monterey, Nasal, Daily(AM), De Martinez DO, 1 Monterey at 11/27/23823 fluticasone furoate-vilanterol (BREO ellipta) 100-25 MCG/ACT inhaler 1 Puff, 1 Puff, Inhalation, Daily(AM), De Martinez DO, 1 Puff at 11/27/23823 Latanoprost (Xalatan) 0.005 % ophthalmic solution 1 Drop, 1 Drop, Both eyes, HS, De Martinez DO, 1 Drop at 11/27/232124 Methimazole (Tapazole) tab 2.5 mg, 2.5 mg, Oral, Daily(AM), De Martinez DO, 2.5 mg at 11/27/23822 rOPINIRole (Requip) tab 1 mg, 1 mg, Oral, QHS, De Martinez DO, 1 mg at 11/27/232124 senna-docusate (Senokot-S) 1 Tablet, 1 Tablet, Oral, Daily(AM), De Martinez DO, 1 Tablet at11/27/23823 Assessment & Plan Assessment and Plan: Principal Problem: 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) (POA: Yes) Active Problems: Cardiac outflow obstruction (POA: Yes) Pulmonary HTN (HCC) (POA: Yes) ILD (interstitial lung disease) (HCC) (POA: Yes) LVH (left ventricular hypertrophy) (POA: Unknown) Moderate mitral stenosis (POA: Yes) Moderate tricuspid regurgitation (POA: Yes) Moderate mitral regurgitation (POA: Yes) Resolved Problems: Acute on chronic respiratory failure with hypoxia (HCC) (POA: Yes) POA = Present On Admission Maria Luisa Recinos is a 87 year old female with PMHx of heart failure with preserved ejection fraction,severe tricuspid regurg, moderate mitral stenosis, hypertension, hyperlipidemia, severe pulmonary hypertension, and HOCM who is admitted for concerns of volume overload as well as LVOT obstruction. 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 Patient has a very tenuous volume status due to multiple comorbidities like HOCM, concern of LVOT obstruction, severe tricuspid regurg, moderate mitral stenosis, and pulmonary hypertension. Due to multiple valvular dysfunction as well as inducible LVOT obstruction, who come, and significant interstitial lung disease it is imperative that the patient maintain euvolemia. Discussion was held with patient and her daughter in regards to different management strategies for heart failure exacerbation. Decision was made to have patient evaluated by EP for possible pacemaker placement to improve LVOT obstruction through artificial pacing and allow AV lenore agent use without concerns of bradycardia. Patient had a pacemaker on 11/26, doing well. Will continue to adjust beta blockade. 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 Grammatical errors, random word insertions, pronoun errors, and incomplete sentences are an occasional consequence of this system due to software limitations, ambient noise, and hardware issues. Any formal questions or concerns about the content, text, or information contained within the body of this dictation should be directly addressed to the provider for clarification. Associated attestation - De Castellon DO - 2023 12:19 PM EDT I saw and evaluated the patient today. I have reviewed the trainee note and agree. Feeling well and doing well. She has done well since pacemaker implant, adding to her beta vikki regimen. She continues to have diffuse rales on exam, which is NOT indicative of cardiogenic pulmonary edema. This is a reflection of disease underlying lung disease. No edema peripherally. Will titrate up beta blockers, work with PT/OT. Anticipate d/c in next 24 hours * Nishi Marie MD - 11/27/2023 6:22 AM EDT PROGRESS NOTE - Cardiology [facility] [place]-[address] [address] Name: Maria Luisa Recinos Location: [facility] [id number] Date: 11/27/2023 Time: 6:22 AM Date of admission: 11/23/2023 Hospital length of stay: 4 days Subjective Summary Patient transferred from [facility] after concerns of heart failure exacerbation in the [facility] and [facility]. Patient presented due to acute on chronic respiratory failure with concerns of CHF exacerbation. Patient had received 3 L of fluids at the nursing facility had a Laws catheter in place leading to 1.2 L of output. Was initially on high-flow nasal cannula weaned down to 5 L then to 3 L patient also received 80 in 60 mg of Lasix. Patient was transferred to [facility] for further evaluation upon arrival to [facility] patient is currently on room air. Subjective: No acute events overnight. Patient seen and examined at bedside. This morning she endorsed feeling short of breath without her oxygen however once her nasal cannula was fixed she endorsed feeling better. Objective CONSTITUTIONAL DATA / OBJECTIVE: Vital Signs (Most Recent): Blood Pressure: 99/75 mmHg Last 12H: Most Recent Systolic BP Av.7 mmHg Min: 99 mmHg Max: 115 mmHg Pulse: 56 Last 12H: Pulse Av Min: 53 Max: 56 Temperature: 35.3 C (95.5 F) Last 12H: Most Recent Temperature Av.8 C Min: 35.28 C Max: 36 C Respiratory Rate: 18 O2 Saturation: 100 % Vital Signs (Last 24 Hours): Pulse Av.4 Min: 51 Max: 57 No data recorded Most Recent Systolic BP Av.8 mmHg Min: 92 mmHg Max: 115 mmHg Most Recent Diastolic BP Av.6 mmHg Min: 62 mmHg Max: 87 mmHg Resp Av.4 Min: 18 Max: 20 Most Recent Temperature Av C Min: 35.28 C Max: 36.39 C SpO2 Av.7 % Min: 96 % Max: 100 % Intake & Output Summary (Last 24 hours): Intake/Output Summary (Last 24 hours) at 11/27/2023 06 Last data filed at 11/27/2023 0600 Gross per 24 hour Intake 490 ml Output 650 ml Net -160 ml Net IO Since Admission: -300 mL [11/23/23 0813] Height & Weight: Height: 154.9 cm (5' 1") (11/23/23 0300) Weight: 79.2 kg (174 lb 11.2 oz) (11/27/23 0509) Weight change: -1.256 kg (-2 lb 12.3 oz) Body mass index is 33.01 kg/m. Physical Examination: General: In no distress Heart: Bradycardia Pulmonary: Rales bilaterally Abdomen: Soft, non-tender Extremities: No edema Skin: Warm Neuro: AAOx3. Peripheral Line Left Antecubital 20 Gauge (Active) Number of days: 6 Laboratory Values: reviewed. -- Brief labs below include the 7 most recent results over the past week. Lab results within last 7 days (see chart for full results) Units 11/21/23 1549 pH, Venous units 7.443* pCO2, Venous mmHg 40.3 pO2, Venous mmHg 16.7* Base Excess, Venous mmol/L 3.2* Lab results within last 7 days (see chart for full results) Units 11/27/23 0427 11/26/23 0502 11/25/23 0516 11/24/23 0642 11/23/23 1302 11/23/23 0530 11/22/23 0500 Sodium mmol/L 131* 132* 136 135 136 133* 134* Potassium mmol/L 4.3 4.3 5.3* 4.2 4.2 2.5* 3.2* Chloride mmol/L 95* 96* 101 100 97* 94* 96* CO2 mmol/L 23 20* 22 22 24 24 25 BUN mg/dL 59* 53* 51* 42* 42* 44* 52* Creatinine mg/dL 1.7* 1.7* 1.7* 1.4* 1.3* 1.4* 1.6* Estimated Glomerular Filtration Rate mL/min 30* 28* 29* 36* 39* 39* 32* Glucose mg/dL 83 80 84 101 141* 98 75 Calcium mg/dL 9.3 9.3 9.5 9.1 9.2 9.2 8.7 Magnesium mg/dL 2.4 2.5 2.3 2.1 2.1 2.0 1.9 Phosphorus mg/dL 3.7 3.9 3.7 3.1 2.5 -- -- Anion Gap mmol/L 13 16* 13 13 15 15 13 Lab results within last 7 days (see chart for full results) Units 11/27/23 0427 11/26/23 0502 11/25/23 0516 11/24/23 0642 11/23/23 0530 11/22/23 0500 11/21/23 1549 WBC K/uL 9.21 9.39 9.66 11.37* 11.04* 10.06 8.26 HGB g/dL 9.6* 10.2* 9.7* 10.1* 10.5* 9.0* 9.2* HCT % 32.2* 35.0* 33.0* 33.0* 34.5* 30.1* 30.9* PLT K/uL 254 267 265 280 301 264 317 MCV fL 90.2 92.6 92.2 88.9 89.6 89.9 90.6 Lab results within last 7 days (see chart for full results) Units 11/22/23 0500 11/21/23 1642 11/21/23 1549 Troponin T, High Sensitivity ng/L 69* 74* 74* Lab results within last 7 days (see chart for full results) Units 11/21/23 1549 Prothrombin Time seconds 22.3* INR 1.9* aPTT seconds 45* Lab results within last 7 days (see chart for full results) Units 11/22/23 0500 11/21/23 1549 Albumin g/dL 3.0* 3.4* Protein g/dL 6.3 7.0 Bilirubin, Total mg/dL 1.4* 1.5* AST U/L 40* 46* ALT U/L 29 35 Alkaline Phosphatase U/L 148* 166* Lab results within last 7 days (see chart for full results) Units 11/22/23 0344 11/21/23201511/21/23 1832 11/21/23 1549 Lactate, Whole Blood mmol/L 1.8 3.5* 2.8* 2.8* Procalcitonin ng/mL -- -- -- 0.15* Cultures: reviewed. Lab results within last 7 days (see chart for full results) Units 11/21/23 1556 Coronavirus SARS-CoV-2 by PCR Negative Recent Cultures (2 Weeks) 11/21/2023 11/21/2023 08/29/2023 08/19/2023 4:42 PM 3:49 PM 4:38 PM 4:37 PM STAIN DESCRIPTION -- -- -- Specimen contaminated with epithelial cells client account representative of oropharyngeal contamination. Further processing may yield potentially misleading results. CULTURE GROWTH -- -- -- Specimen unsatisfactory. Not tested. BLOOD CULTURE GROWTH No growth No growth No growth -- No growth Radiographic Studies: reviewed. No imaging results in the last 72 hours Cardiac Studies: 11/23/2023 TTE The examination is limited quality but adequate for evaluation of the referral indication. There was atrial fibrillation during the examination. The qualitative LV ejection fraction is 60-64% (normal). The LV wall thickness is severely increased (concentric). No LV segmental wall motion abnormalities. The resting peak instantaneous left ventricular outflow tract gradient is 58 mm Hg. The inducible peak instantaneous left ventricular outflow tract gradient is 72 mm Hg. Moderate mitral stenosis is present. There is moderate mitral regurgitation at rest. Moderate tricuspid regurgitation is present. The right ventricular cavity is moderately dilated. The right ventricular systolic function is mildly reduced . Indeterminate IVC size and collapsability. Right atrial pressure estimated at 8 mmHg. Moderate pulmonary hypertension is present. The estimated pulmonary artery systolic pressure is 50mm Hg. Current Facility-Administered Medications: albuterol-ipratropium (Duoneb) inhalation solution 3 mL, 3 mL, Nebulizer, Q4H PRN, Eri Babin MD aspirin chew tab 81 mg, 81 mg, Oral, Daily(AM), De Martinez DO, 81 mg at 11/26/23 0943 atorvaSTATin (Lipitor) tab 20 mg, 20 mg, Oral, Daily(AM), De Martinez DO, 20 mg at 943 dorzolamide-timolol (Cosopt Ocumeter Plus) ophthalmic solution 1 Drop, 1 Drop, Both eyes, BID(AM/PM), De Martinez DO, 1 Drop at 11/26/232133 fluticasone (Flonase) nasal inhaler 1 Monte[place], 1 Monte[place], Nasal, Daily(AM), De Martinez DO, 1 [place] at 11/26/23 0944 fluticasone furoate-vilanterol (BREO ellipta) 100-25 MCG/ACT inhaler 1 Puff, 1 Puff, Inhalation, Daily(AM), De Martinez DO, 1 Puff at 11/26/23 09 Latanoprost (Xalatan) 0.005 % ophthalmic solution 1 Drop, 1 Drop, Both eyes, HS, De Martinez DO, 1 Drop at 11/26/232133 Methimazole (Tapazole) tab 2.5 mg, 2.5 mg, Oral, Daily(AM), De Martinez DO, 2.5 mg at 11/26/2343 rOPINIRole (Requip) tab 1 mg, 1 mg, Oral, QHS, De Martinez DO, 1 mg at 11/26/232133 senna-docusate (Senokot-S) 1 Tablet, 1 Tablet, Oral, Daily(AM), De Martinez DO, 1 Tablet at11/26/23 0943 Assessment & Plan Assessment and Plan: Principal Problem: 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) (POA: Yes) Active Problems: Cardiac outflow obstruction (POA: Yes) Pulmonary HTN (HCC) (POA: Yes) ILD (interstitial lung disease) (HCC) (POA: Yes) LVH (left ventricular hypertrophy) (POA: Unknown) Moderate mitral stenosis (POA: Yes) Moderate tricuspid regurgitation (POA: Yes) Moderate mitral regurgitation (POA: Yes) Resolved Problems: Acute on chronic respiratory failure with hypoxia (HCC) (POA: Yes) POA = Present On Admission Maria Luisa Recinos is a 87 year old female with PMHx of heart failure with preserved ejection fraction,severe tricuspid regurg, moderate mitral stenosis, hypertension, hyperlipidemia, severe pulmonary hypertension, and HOCM who is admitted for concerns of volume overload as well as LVOT obstruction. 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 Patient has a very tenuous volume status due to multiple comorbidities like HOCM, concern of LVOT obstruction, severe tricuspid regurg, moderate mitral stenosis, and pulmonary hypertension.Due to multiple valvular dysfunction as well as inducible LVOT obstruction, who come, and significant interstitial lung disease it is imperative that the patient maintain euvolemia. Discussion was held with patient and her daughter in regards to different management strategies for heart failure exacerbation. Decision was made to have patient evaluated by EP for possible pacemaker placement to improve LVOT obstruction through artificial pacing and allow AV lenore agent use without concerns of bradycardia. 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 Continue on telemetry monitoring Continue IN SERVICE EDUCATION TEACHER Eliquis Obtain repeat TTE Will discontinue IN SERVICE EDUCATION TEACHER Jardiance on discharge EP on consult, recs appreciated LINES / DRAINS / TUBES: LINES ALL Duration Peripheral Line Left Antecubital 20 Gauge 5 days List of services consulted/following: ADULT OCCUPATIONAL THERAPY CONSULT IP ADULT PHYSICAL THERAPY CONSULT IP ELECTROPHYSIOLOGY CONSULT IP Patient was discussed with attending physician, De Castellon DO This chart was completed in part utilizing [employer] Speech Voice Recognition Software. Grammatical errors, random word insertions, pronoun errors, and incomplete sentences are an occasional consequence of this system due to software limitations, ambient noise, and hardware issues. Any formal questions or concerns about the content, text, or information contained within the body of this dictation should be directly addressed to the provider for clarification. Associated attestation - De Castellon DO - 11/27/2023 11:40 AM EDT I saw and evaluated the patient today. I have reviewed the trainee note and agree. Stable this AM. Plan for pacemaker today with introduction of negative inotropic/chronotropic agents. * De Castellon, DO - 11/26/2023 4:16 PM EDT PROGRESS NOTE - Cardiology [facility] [place]-[address] [address] Name: Maria Luisa Recinos Location: [facility] H852/[id number] Date: 11/26/2023 Time: 4:16 PM SUBJECTIVE: Doing well this am. Had episode of dyspnea at rest, felt as if she could not catch her wind Seated upright in chair on exam, doing well now. Recheck BP shows 110/70 on right arm cuff. Pulse rate in 50-60's, in atrial fibrillation OBJECTIVE: Most Recent Vital Signs: BP: 92 mmHg/62 mmHg (11/26/23 1500) Pulse: 51 (11/26/23 1153) Temp: 36.39 C (11/26/23 1500) Temp Summary: Temp Min: 35.7 C (96.3 F) Max: 36.5 C (97.7 F) SpO2: 100 % (11/26/23 1500) O2 flow rate: 2 L/MIN (11/26/23 1500) Supplemental O2 Delivery: Nasal Cannula (11/26/23 1500) Vital Signs Last 24 Hours: Systolic BP: Most Recent Systolic BP Av.8 mmHg Min: 51 mmHg Max: 112 mmHg Temperature: Most Recent Temperature Av.3 C Min: 35.72 C Max: 36.5 C Pulse: Pulse Av Min: 36 Max: 58 Respirations: Resp Av Min: 18 Max: 18 SpO2: SpO2 Av.5 % Min: 62 % Max: 100 % Exam Pleasant on exam No jugular venous distention, + v waves of TR Irregular rhythm controlled, no diastolic murmur evident Lungs have diffuse crackles Abdomen soft No peripheral edema LABS: Bun 53 Creatinine 1.7 CARDIAC THERAPY: HOLDING JARDIANCE ALDACTONE TORSEMIDE METOPROLOL IMPRESSION: - Symptomatic hypotension secondary to intracavitary LV gradient and likely HCM with ARMAAN - moderate mitral stenosis - mild aortic stenosis - left ventricular hypertrophy secondary to possible hcm, hypertensive heart disease - normal coronary arteries by cath 2021 - chronic kidney disease stage III-IV Doing fine this morning. She had an episode of dyspnea. I had a long discussion with the patient and her daughter. She has several competing issues that management strategies differ fairly significantly- heart failure exacerbations with not only her ARMAAN-HCM gradient but intracavitary gradient all are treated differently than with her significant diuretic component. She has had no diuretic need for 48 hours and now shown signs of heart failure. Unfortunately with GFR remaining persistently low, cannot do cardiac MRI to define precise anatomical pathology, however review of echo is consistent with HCM despite prior negative genetic testing. Amlyoidosis is another consideration but less likely. Either way- the way to improve her symptoms is to address aim at cardiac contractility with negative inotropic agents to diminish not only intracavitary gradient but LVOT obstruction as well as transmitral gradient (~10 mm hg) which will decrease left atrial filling pressure. To that end- plan to have EP see for pacemaker implant and possible septal pacing to improve LVOT obstruction through artifical pacing. This will allow increased av lenore agents obviating bradycardiaconcern. Keep npo Ep consult. Torsemide will be much lower and d/c aldactone and jardiance, they are not helpful in treatment of her cardiac issues. * Nishi Marie MD - 11/25/2023 7:56 AM EDT PROGRESS NOTE - Cardiology [facility] [place]-[address] [address] Name: Maria Luisa Recinos Location: [facility] [place] H852/[id number] Date: 11/25/2023 Time: 7:56 AM Date of admission: 11/23/2023 Hospital length of stay: 2 days Subjective Summary Patient transferred from [facility] after concerns of heart failure exacerbation in the severeTR and HOCM. Patient presented due to acute on chronic respiratory failure with concerns of CHF exacerbation. Patient had received 3 L of fluids at the nursing facility had a Laws catheter in place leading to 1.2 L of output. Was initially on high-flow nasal cannula weaned down to 5 L then to 3 L patient also received 80 in 60 mg of Lasix. Patient was transferred to [facility] for further evaluation upon arrival to [facility] patient is currently on room air. Subjective: Overnight patient was noted to have brief pauses on tele and bradycardia. Patient remained asymptomatic. This morning patient states she is feeling relatively okay denies any shortness of breath or lightheadedness. Objective CONSTITUTIONAL DATA / OBJECTIVE: Vital Signs (Most Recent): Blood Pressure: 100/70 mmHg Last 12H: Most Recent Systolic BP Av mmHg Min: 96 mmHg Max: 100 mmHg Pulse: 54 Last 12H: Pulse Av.3 Min: 54 Max: 55 Temperature: 36.3 C (97.3 F) Last 12H: Most Recent Temperature Av.4 C Min: 36.28 C Max: 36.61 C Respiratory Rate: 20 O2 Saturation: 96 % Vital Signs (Last 24 Hours): Pulse Av Min: 54 Max: 57 No data recorded Most Recent Systolic BP Av.2 mmHg Min: 80 mmHg Max: 100 mmHg Most Recent Diastolic BP Av mmHg Min: 50 mmHg Max: 70 mmHg Resp Av Min: 20 Max: 20 Most Recent Temperature Av.4 C Min: 36.28 C Max: 36.61 C SpO2 Av.8 % Min: 95 % Max: 99 % Intake & Output Summary (Last 24 hours): Intake/Output Summary (Last 24 hours) at 11/25/2023 0756 Last data filed at 11/24/2023 2105 Gross per 24 hour Intake -- Output 400 ml Net -400 ml Net IO Since Admission: -300 mL [11/23/23 0813] Height & Weight: Height: 154.9 cm (5' 1") (11/23/23 0300) Weight: 78.9 kg (174 lb) (11/23/23 0300) Weight change: Body mass index is 32.88 kg/m. Physical Examination: General: Resting comfortably when seen HEENT: normocephalic, atraumatic Heart: Bradycardia Pulmonary: Diminished breath sounds Abdomen: Soft, non-tender Extremities: No edema Skin: Warm Neuro: AAOx3. Urethral Catheter Regular catheter (Active) Number of days: 4 Peripheral Line Left Antecubital 20 Gauge (Active) Number of days: 4 Laboratory Values: reviewed. -- Brief labs below include the 7 most recent results over the past week. Lab results within last 7 days (see chart for full results) Units 11/21/23 1549 pH, Venous units 7.443* pCO2, Venous mmHg 40.3 pO2, Venous mmHg 16.7* Base Excess, Venous mmol/L 3.2* Lab results within last 7 days (see chart for full results) Units 11/25/23 0516 11/24/23 0642 11/23/23 1302 11/23/23 0530 11/22/23 0500 11/21/23 1549 Sodium mmol/L 136 135 136 133* 134* 130* Potassium mmol/L 5.3* 4.2 4.2 2.5* 3.2* 3.4* Chloride mmol/L 101 100 97* 94* 96* 92* CO2 mmol/L BUN mg/dL 51* 42* 42* 44* 52* 60* Creatinine mg/dL 1.7* 1.4* 1.3* 1.4* 1.6* 1.7* Estimated Glomerular Filtration Rate mL/min 29* 36* 39* 39* 32* 29* Glucose mg/dL 84 101 141* 98 75 126* Calcium mg/dL 9.5 9.1 9.2 9.2 8.7 9.4 Magnesium mg/dL 2.3 2.1 2.1 2.0 1.9 -- Phosphorus mg/dL 3.7 3.1 2.5 -- -- -- Anion Gap mmol/L 13 13 15 15 13 15 Lab results within last 7 days (see chart for full results) Units 11/25/23 0516 11/24/23 0642 11/23/23 0530 11/22/23 0500 11/21/23 1549 WBC K/uL 9.66 11.37* 11.04* 10.06 8.26 HGB g/dL 9.7* 10.1* 10.5* 9.0* 9.2* HCT % 33.0* 33.0* 34.5* 30.1* 30.9* PLT K/uL 265 280 301 264 317 MCV fL 92.2 88.9 89.6 89.9 90.6 Lab results within last 7 days (see chart for full results) Units 11/22/23 0500 11/21/23 1642 11/21/23 1549 Troponin T, High Sensitivity ng/L 69* 74* 74* Lab results within last 7 days (see chart for full results) Units 11/21/23 1549 Prothrombin Time seconds 22.3* INR 1.9* aPTT seconds 45* Lab results within last 7 days (see chart for full results) Units 11/22/23 0500 11/21/23 1549 Albumin g/dL 3.0* 3.4* Protein g/dL 6.3 7.0 Bilirubin, Total mg/dL 1.4* 1.5* AST U/L 40* 46* ALT U/L 29 35 Alkaline Phosphatase U/L 148* 166* Lab results within last 7 days (see chart for full results) Units 11/22/23 0344 11/21/23201511/21/23 1832 11/21/23 1549 Lactate, Whole Blood mmol/L 1.8 3.5* 2.8* 2.8* Procalcitonin ng/mL -- -- -- 0.15* Cultures: reviewed. Lab results within last 7 days (see chart for full results) Units 11/21/23 1556 Coronavirus SARS-CoV-2 by PCR Negative Recent Cultures (2 Weeks) 11/21/2023 11/21/2023 08/29/2023 08/19/2023 4:42 PM 3:49 PM 4:38 PM 4:37 PM STAIN DESCRIPTION -- -- -- Specimen contaminated with epithelial cells client account representative of oropharyngeal contamination. Further processing may yield potentially misleading results. CULTURE GROWTH -- -- -- Specimen unsatisfactory. Not tested. BLOOD CULTURE GROWTH No growth to date No growth to date No growth -- No growth Radiographic Studies: reviewed. XR CHEST 1 VIEW Result Date: 11/23/2023 IMPRESSION No significant interval change in diffuse bilateral pulmonary opacities. I have personally reviewed this examination and agree with the resident/fellow physician's interpretation. Cardiac Studies: 11/23/2023 TTE The examination is limited quality but adequate for evaluation of the referral indication. There was atrial fibrillation during the examination. The qualitative LV ejection fraction is 60-64% (normal). The LV wall thickness is severely increased (concentric). No LV segmental wall motion abnormalities. The resting peak instantaneous left ventricular outflow tract gradient is 58 mm Hg. The inducible peak instantaneous left ventricular outflow tract gradient is 72 mm Hg. Moderate mitral stenosis is present. There is moderate mitral regurgitation at rest. Moderate tricuspid regurgitation is present. The right ventricular cavity is moderately dilated. The right ventricular systolic function is mildly reduced . Indeterminate IVC size and collapsability. Right atrial pressure estimated at 8 mmHg. Moderate pulmonary hypertension is present. The estimated pulmonary artery systolic pressure is 50mm Hg. Current Facility-Administered Medications: Metoprolol Tartrate (Lopressor) tab 25 mg, 25 mg, Oral, Q12H, De Martinez DO albuterol-ipratropium (Duoneb) inhalation solution 3 mL, 3 mL, Nebulizer, Q4H PRN, Eri Babin MD Apixaban (Eliquis) tab 2.5 mg, 2.5 mg, Oral, BID(AM/PM), De Martinez DO, 2.5 mg at aspirin chew tab 81 mg, 81 mg, Oral, Daily(AM), De Martinez DO, 81 mg at 11/24/23 0938 atorvaSTATin (Lipitor) tab 20 mg, 20 mg, Oral, Daily(AM), De Martinez DO, 20 mg at dorzolamide-timolol (Cosopt Ocumeter Plus) ophthalmic solution 1 Drop, 1 Drop, Both eyes, BID(AM/PM), De Martinez DO, 1 Drop at 11/24/23 210 fluticasone (Flonase) nasal inhaler 1 Monte[place], 1 Monte[place], Nasal, Daily(AM), De Martinez DO, 1 [place] at 11/24/23 0900 fluticasone furoate-vilanterol (BREO ellipta) 100-25 MCG/ACT inhaler 1 Puff, 1 Puff, Inhalation, Daily(AM), De Martinez DO, 1 Puff at 11/24/23 0954 Latanoprost (Xalatan) 0.005 % ophthalmic solution 1 Drop, 1 Drop, Both eyes, HS, De Martinez DO, 1 Drop at 11/24/23 205 Methimazole (Tapazole) tab 2.5 mg, 2.5 mg, Oral, Daily(AM), De Martinez DO, 2.5 mg at 11/24/23 09 rOPINIRole (Requip) tab 1 mg, 1 mg, Oral, QHS, De Martinez, DO, 1 mg at 11/24/232057 senna-docusate (Senokot-S) 1 Tablet, 1 Tablet, Oral, Daily(AM), OzarkDe, DO, 1 Tablet at11/24/23937 Assessment & Plan Assessment and Plan: Principal Problem: 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) (POA: Yes) Active Problems: Cardiac outflow obstruction (POA: Yes) Pulmonary HTN (HCC) (POA: Yes) ILD (interstitial lung disease) (HCC) (POA: Yes) LVH (left ventricular hypertrophy) (POA: Unknown) Moderate mitral stenosis (POA: Unknown) Moderate tricuspid regurgitation (POA: Yes) Moderate mitral regurgitation (POA: Yes) Resolved Problems: Acute on chronic respiratory failure with hypoxia (HCC) (POA: Yes) POA = Present On Admission Maria Luisa Recinos is a 87 year old female with PMHx of heart failure with preserved ejection fraction,severe tricuspid regurg, moderate mitral stenosis, hypertension, hyperlipidemia, severe pulmonary hypertension, and HOCM who is admitted for concerns of volume overload as well as LVOT obstruction. 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 Patient has a very tenuous volume status due to multiple comorbidities like HOCM, concern of LVOT obstruction, severe tricuspid regurg, moderate mitral stenosis, and pulmonary hypertension. CT imaging obtained shows significant interstitial lung disease which may be also a component driving her worsening respiratory status. Due to multiple valvular dysfunction as well as inducible LVOT obstruction, who come, and significant interstitial lung disease it is imperative that the patientmaintain euvolemia. Will decrease patient's Lopressor down to 25 mg twice daily as she could not tolerate an elevated dose which led to bradycardia. Recommend the patient be out of bed to see if she has any symptoms of lightheadedness with exertion. Continue to hold all diuretics including [employer] medications (metolazone, torsemide, spironolactone andmonitor volume status closely. EKG p.r.n. Continue on telemetry monitoring Continue [employer] Eliquis Obtain repeat TTE Will discontinue [employer] Jardiance on discharge LINES / DRAINS / TUBES: LINES ALL Duration Peripheral Line Left Antecubital 20 Gauge 3 days Urethral Catheter Regular catheter 3 days List of services consulted/following: ADULT OCCUPATIONAL THERAPY CONSULT IP ADULT PHYSICAL THERAPY CONSULT IP Patient was discussed with attending physician, De Castellon DO This chart was completed in part utilizing [employer] Speech Voice Recognition Software. Grammatical errors, random word insertions, pronoun errors, and incomplete sentences are an occasional consequence of this system due to software limitations, ambient noise, and hardware issues. Any formal questions or concerns about the content, text, or information contained within the body of this dictation should be directly addressed to the provider for clarification. Associated attestation - De Castellon DO - 11/25/2023 8:39 AM EDT I saw and evaluated the patient today. I have reviewed the trainee note and agree. No interval events. Doing well this morning. No complaints from the patient. She feels she is still relatively weak in her legs. Exam shows no edema. Plan for rehab eval/therapy- she is borderline bradycardic with her atrial fibrillation already andthus further negative chronotropic control may not be feasible. Likely to restart torsemide 20 mg as maintenance tomorrow. * Nishi Marie MD - 11/24/2023 6:29 AM EDT PROGRESS NOTE - Cardiology [facility] [place]-[address] [address] Name: Maria Luisa Recinos Location: [facility] H852/A Date: 11/24/2023 Time: 6:29 AM Date of admission: 11/23/2023 Hospital length of stay: 1 days Subjective Overnight Events: Patient transferred from [facility] after concerns of heart failure exacerbation in the [facility]. Patient presented due to acute on chronic respiratory failure with concerns of CHF exacerbation. Patient had received 3 L of fluids at the nursing facility had a Laws catheter in place leading to 1.2 L of output. Was initially on high-flow nasal cannula weaned down to 5 L then to 3 L patient also received 80 in 60 mg of Lasix. Patient was transferred to [facility] for further evaluation upon arrival to [facility] patient is currently on room air. Subjective: Patient seen and examined at bedside. Patient states she is feeling okay, she denied any chest painor shortness of breath. All systems were reviewed, all pertinent findings were documented above, otherwise negative. Objective CONSTITUTIONAL DATA / OBJECTIVE: Vital Signs (Most Recent): Blood Pressure: 97/53 mmHg Last 12H: Most Recent Systolic BP Av.2 mmHg Min: 92 mmHg Max: 100 mmHg Pulse: 60 Last 12H: Pulse Av.8 Min: 60 Max: 70 Temperature: 36.6 C (97.9 F) Last 12H: Most Recent Temperature Av.4 C Min: 36.28 C Max: 36.61 C Respiratory Rate: 18 O2 Saturation: 99 % Vital Signs (Last 24 Hours): Pulse Av.3 Min: 60 Max: 70 No data recorded Most Recent Systolic BP Av.7 mmHg Min: 69 mmHg Max: 100 mmHg Most Recent Diastolic BP Av.2 mmHg Min: 42 mmHg Max: 69 mmHg Resp Av Min: 18 Max: 18 Most Recent Temperature Av.2 C Min: 35.61 C Max: 36.61 C SpO2 Av.6 % Min: 95 % Max: 100 % Intake & Output Summary (Last 24 hours): Intake/Output Summary (Last 24 hours) at 11/24/2023 0629 Last data filed at 11/23/2023 2330 Gross per 24 hour Intake -- Output 791 ml Net -791 ml Net IO Since Admission: -300 mL [11/23/23 0813] Height & Weight: Height: 154.9 cm (5' 1") (11/23/23 030) Weight: 78.9 kg (174 lb) (11/23/23299) Weight change: Body mass index is 32.88 kg/m. Physical Examination: General: Patient in no apparent distress HEENT: normocephalic, atraumatic Heart: Her murmur noted on exam Pulmonary: Diminished breath sounds Abdomen: Soft, non-tender Extremities: No peripheral edema Skin: Warm Neuro: AAOx3. Urethral Catheter Regular catheter (Active) Number of days: 3 Peripheral Line Left Antecubital 20 Gauge (Active) Number of days: 3 Laboratory Values: reviewed. -- Brief labs below include the 7 most recent results over the past week. Lab results within last 7 days (see chart for full results) Units 11/21/23 1549 pH, Venous units 7.443* pCO2, Venous mmHg 40.3 pO2, Venous mmHg 16.7* Base Excess, Venous mmol/L 3.2* Lab results within last 7 days (see chart for full results) Units 11/23/23 1302 11/23/23 0530 11/22/23 0500 11/21/23 1549 Sodium mmol/L 136 133* 134* 130* Potassium mmol/L 4.2 2.5* 3.2* 3.4* Chloride mmol/L 97* 94* 96* 92* CO2 mmol/L BUN mg/dL 42* 44* 52* 60* Creatinine mg/dL 1.3* 1.4* 1.6* 1.7* Estimated Glomerular Filtration Rate mL/min 39* 39* 32* 29* Glucose mg/dL 141* 98 75 126* Calcium mg/dL 9.2 9.2 8.7 9.4 Magnesium mg/dL 2.1 2.0 1.9 -- Phosphorus mg/dL 2.5 -- -- -- Anion Gap mmol/L 15 15 13 15 Lab results within last 7 days (see chart for full results) Units 11/23/23 0530 11/22/23 0500 11/21/23 1549 WBC K/uL 11.04* 10.06 8.26 HGB g/dL 10.5* 9.0* 9.2* HCT % 34.5* 30.1* 30.9* PLT K/uL 301 264 317 MCV fL 89.6 89.9 90.6 Lab results within last 7 days (see chart for full results) Units 11/22/23 0500 11/21/23 1642 11/21/23 1549 Troponin T, High Sensitivity ng/L 69* 74* 74* Lab results within last 7 days (see chart for full results) Units 11/21/23 1549 Prothrombin Time seconds 22.3* INR 1.9* aPTT seconds 45* Lab results within last 7 days (see chart for full results) Units 11/22/23 0500 11/21/23 1549 Albumin g/dL 3.0* 3.4* Protein g/dL 6.3 7.0 Bilirubin, Total mg/dL 1.4* 1.5* AST U/L 40* 46* ALT U/L 29 35 Alkaline Phosphatase U/L 148* 166* Lab results within last 7 days (see chart for full results) Units 11/22/23 0344 11/21/23201511/21/23 1832 11/21/23 1549 Lactate, Whole Blood mmol/L 1.8 3.5* 2.8* 2.8* Procalcitonin ng/mL -- -- -- 0.15* Cultures: reviewed. Lab results within last 7 days (see chart for full results) Units 11/21/23 1556 Coronavirus SARS-CoV-2 by PCR Negative Recent Cultures (2 Weeks) 11/21/2023 11/21/2023 08/29/2023 08/19/2023 4:42 PM 3:49 PM 4:38 PM 4:37 PM STAIN DESCRIPTION -- -- -- Specimen contaminated with epithelial cells client account representative of oropharyngeal contamination. Further processing may yield potentially misleading results. CULTURE GROWTH -- -- -- Specimen unsatisfactory. Not tested. BLOOD CULTURE GROWTH No growth to date No growth to date No growth -- No growth Radiographic Studies: reviewed. XR CHEST 1 VIEW Result Date: 11/23/2023 IMPRESSION No significant interval change in diffuse bilateral pulmonary opacities. I have personally reviewed this examination and agree with the resident/fellow physician's interpretation. XR CHEST 1 VIEW Result Date: 11/21/2023 IMPRESSION 1. Indistinct airspace opacities in both lung bases, which may pneumonia or aspiration in the correct clinical setting. 2. Probable small right pleural effusion. 3. Pulmonary vascular congestion. Cardiac Studies: 11/23/2023 TTE The examination is limited quality but adequate for evaluation of the referral indication. There was atrial fibrillation during the examination. The qualitative LV ejection fraction is 60-64% (normal). The LV wall thickness is severely increased (concentric). No LV segmental wall motion abnormalities. The resting peak instantaneous left ventricular outflow tract gradient is 58 mm Hg. The inducible peak instantaneous left ventricular outflow tract gradient is 72 mm Hg. Moderate mitral stenosis is present. There is moderate mitral regurgitation at rest. Moderate tricuspid regurgitation is present. The right ventricular cavity is moderately dilated. The right ventricular systolic function is mildly reduced . Indeterminate IVC size and collapsability. Right atrial pressure estimated at 8 mmHg. Moderate pulmonary hypertension is present. The estimated pulmonary artery systolic pressure is 50mm Hg. Current Facility-Administered Medications: albuterol-ipratropium (Duoneb) inhalation solution 3 mL, 3 mL, Nebulizer, Q4H PRN, Eri Babin MD Apixaban (Eliquis) tab 2.5 mg, 2.5 mg, Oral, BID(AM/PM), De Martinez DO, 2.5 mg at aspirin chew tab 81 mg, 81 mg, Oral, Daily(AM), De Martinez DO, 81 mg at 11/23/23814 atorvaSTATin (Lipitor) tab 20 mg, 20 mg, Oral, Daily(AM), De Martinez DO, 20 mg at dorzolamide-timolol (Cosopt Ocumeter Plus) ophthalmic solution 1 Drop, 1 Drop, Both eyes, BID(AM/PM), De Martinez DO, 1 Drop at 11/23/232047 fluticasone (Flonase) nasal inhaler 1 [place], 1 [place], Nasal, Daily(AM), De Martinez DO, 1 [place] at 11/23/23 0824 fluticasone furoate-vilanterol (BREO ellipta) 100-25 MCG/ACT inhaler 1 Puff, 1 Puff, Inhalation, Daily(AM), De Martinez DO, 1 Puff at 11/23/23 0752 Latanoprost (Xalatan) 0.005 % ophthalmic solution 1 Drop, 1 Drop, Both eyes, HS, De Martinez DO, 1 Drop at 11/23/232047 Methimazole (Tapazole) tab 2.5 mg, 2.5 mg, Oral, Daily(AM), De Martinez DO, 2.5 mg at 11/23/23 0815 Metoprolol Tartrate (Lopressor) tab 25 mg, 25 mg, Oral, BID(AM/PM), Nishi Marie MD, 25 mg at 11/23/232048 rOPINIRole (Requip) tab 1 mg, 1 mg, Oral, QHS, De Martinez DO, 1 mg at 11/23/232047 senna-docusate (Senokot-S) 1 Tablet, 1 Tablet, Oral, Daily(AM), De Martinez DO, 1 Tablet at11/23/23 0814 Assessment & Plan Assessment and Plan: Principal Problem: 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 * POA = Present On Admission Maria Luisa Recinos is a 87 year old female with PMHx of heart failure with preserved ejection fraction,severe tricuspid regurg, moderate mitral stenosis, hypertension, hyperlipidemia, severe pulmonary hypertension, and HOCM who is admitted for concerns of volume overload as well as LVOT obstruction. 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 Patient has a very tenuous volume status due to multiple comorbidities like HOCM, concern of LVOT obstruction, severe tricuspid regurg, moderate mitral stenosis, and pulmonary hypertension. CT imaging obtained shows significant interstitial lung disease which may be also a component driving her worsening respiratory status. Due to multiple valvular dysfunction as well as inducible LVOT obstruction, who come, and significant interstitial lung disease it is imperative that the patientmaintain euvolemia. Will increase her to Lopressor 50 mg twice daily as heart rate did not improve with 25 mg BID Continue to hold all diuretics including IN SERVICE EDUCATION TEACHER medications (metolazone, torsemide, spironolactone andmonitor volume status closely. EKG p.r.n. Continue on telemetry monitoring Continue IN SERVICE EDUCATION TEACHER Eliquis Obtain repeat TTE Will discontinue IN SERVICE EDUCATION TEACHER Jardiance on discharge LINES / DRAINS / TUBES: LINES ALL Duration Peripheral Line Left Antecubital 20 Gauge 2 days Urethral Catheter Regular catheter 2 days List of services consulted/following: None Patient was discussed with attending physician, De Castellon DO This chart was completed in part utilizing [employer] Speech Voice Recognition Software. Grammatical errors, random word insertions, pronoun errors, and incomplete sentences are an occasional consequence of this system due to software limitations, ambient noise, and hardware issues. Any formal questions or concerns about the content, text, or information contained within the body of this dictation should be directly addressed to the provider for clarification. Associated attestation - De Castellon DO - 11/24/2023 11:12 AM EDT I saw and evaluated the patient today. I have reviewed the trainee note and agree. Clinically doing better today. She ambulated to the bathroom, though not far, but did not feel significantly dyspneic. Resting in bed she feels well. Heart rate is ~70-80 bpm, blood pressure is 90/70's. Heart irregular, lungs diffuse fine crackles, no significant jvd, abdomen soft, no edema. I have reviewed the prior echo which shows midcavitary obstruction with resting and higher inducible gradients. Anatomically her obstruction cannot be addressed right now- thus beta blockade is needed to relievethe intracavitary gradient. Will slowly increase beta vikki, work with physical therapy, determine next steps moving forward. She does not have evidence of central volume overload currently- I would recommend resuming low dose diuretics once we have beta blocked her and assessed her symptoms. Anticipate additional minimal 24-48 hours inpatient to assess and then determine home discharge planning. * Nishi Marie MD - 11/23/2023 8:12 AM EDT PROGRESS NOTE - Cardiology [facility]-[address] [address] Name: Maria Luisa Recinos Location: [facility] [id number] Date: 11/23/2023 Time: 8:13 AM Date of admission: 11/23/2023 Hospital length of stay: 0 days Subjective Overnight Events: Patient transferred from [facility] after concerns of heart failure exacerbation in the [facility] and [facility]. Patient presented due to acute on chronic respiratory failure with concerns of CHF exacerbation. Patient had received 3 L of fluids at the nursing facility had a Laws catheter in place leading to 1.2 L of output. Was initially on high-flow nasal cannula weaned down to 5 L then to 3 L patient also received 80 in 60 mg of Lasix. Patient was transferred to [facility] for further evaluation upon arrival to [facility] patient is currently on room air. Subjective: Patient seen and examined at bedside. Patient reports she is feeling better and denies any shortness of breath. She does not endorse any chest pain. All systems were reviewed, all pertinent findings were documented above, otherwise negative. Objective CONSTITUTIONAL DATA / OBJECTIVE: Vital Signs (Most Recent): Blood Pressure: 73/42 mmHg Last 12H: Most Recent Systolic BP Av.3 mmHg Min: 69 mmHg Max: 93 mmHg Pulse: 70 Last 12H: Pulse Av.7 Min: 62 Max: 70 Temperature: 35.6 C (96.1 F) Last 12H: Most Recent Temperature Av.1 C Min: 35.61 C Max: 36.61 C Respiratory Rate: 18 O2 Saturation: 96 % Vital Signs (Last 24 Hours): Pulse Av.7 Min: 62 Max: 70 No data recorded Most Recent Systolic BP Av.3 mmHg Min: 69 mmHg Max: 93 mmHg Most Recent Diastolic BP Av.8 mmHg Min: 42 mmHg Max: 56 mmHg Resp Av Min: 18 Max: 18 Most Recent Temperature Av.1 C Min: 35.61 C Max: 36.61 C SpO2 Av.7 % Min: 94 % Max: 97 % Intake & Output Summary (Last 24 hours): Intake/Output Summary (Last 24 hours) at 11/23/2023812 Last data filed at 11/23/2023 0607 Gross per 24 hour Intake -- Output 300 ml Net -300 ml Net IO Since Admission: -300 mL [11/23/23812] Height & Weight: Height: 154.9 cm (5' 1") (11/23/23299) Weight: 78.9 kg (174 lb) (11/23/23299) Weight change: Body mass index is 32.88 kg/m. Physical Examination: General: Patient in no apparent distress HEENT: normocephalic, atraumatic Heart: Murmur noted on exam Pulmonary: Diminished breath sounds bilaterally Abdomen: Soft, non-tender Extremities: No edema noted Skin: Wesley, warm, no wounds or lesions present. Neuro: AAOx3. Urethral Catheter Regular catheter (Active) Number of days: 2 Peripheral Line Left Antecubital 20 Gauge (Active) Number of days: 2 Laboratory Values: reviewed. -- Brief labs below include the 7 most recent results over the past week. Lab results within last 7 days (see chart for full results) Units 11/21/23 1549 pH, Venous units 7.443* pCO2, Venous mmHg 40.3 pO2, Venous mmHg 16.7* Base Excess, Venous mmol/L 3.2* Lab results within last 7 days (see chart for full results) Units 11/23/23 0530 11/22/23 0500 11/21/23 1549 Sodium mmol/L 133* 134* 130* Potassium mmol/L 2.5* 3.2* 3.4* Chloride mmol/L 94* 96* 92* CO2 mmol/L 23 BUN mg/dL 44* 52* 60* Creatinine mg/dL 1.4* 1.6* 1.7* Estimated Glomerular Filtration Rate mL/min 39* 32* 29* Glucose mg/dL 98 75 126* Calcium mg/dL 9.2 8.7 9.4 Magnesium mg/dL 2.0 1.9 -- Anion Gap mmol/L 15 13 15 Lab results within last 7 days (see chart for full results) Units 11/23/23 0530 11/22/23 0500 11/21/23 1549 WBC K/uL 11.04* 10.06 8.26 HGB g/dL 10.5* 9.0* 9.2* HCT % 34.5* 30.1* 30.9* PLT K/uL 301 264 317 MCV fL 89.6 89.9 90.6 Lab results within last 7 days (see chart for full results) Units 11/22/23 0500 11/21/23 1642 11/21/23 1549 Troponin T, High Sensitivity ng/L 69* 74* 74* Lab results within last 7 days (see chart for full results) Units 11/21/23 1549 Prothrombin Time seconds 22.3* INR 1.9* aPTT seconds 45* Lab results within last 7 days (see chart for full results) Units 11/22/23 0500 11/21/23 1549 Albumin g/dL 3.0* 3.4* Protein g/dL 6.3 7.0 Bilirubin, Total mg/dL 1.4* 1.5* AST U/L 40* 46* ALT U/L 29 35 Alkaline Phosphatase U/L 148* 166* Lab results within last 7 days (see chart for full results) Units 11/22/23 0344 11/21/23 2016 11/21/23 1832 11/21/23 1549 Lactate, Whole Blood mmol/L 1.8 3.5* 2.8* 2.8* Procalcitonin ng/mL -- -- -- 0.15* Cultures: reviewed. Lab results within last 7 days (see chart for full results) Units 11/21/23 1556 Coronavirus SARS-CoV-2 by PCR Negative Recent Cultures (2 Weeks) 11/21/2023 11/21/2023 08/29/2023 08/19/2023 4:42 PM 3:49 PM 4:38 PM 4:37 PM STAIN DESCRIPTION -- -- -- Specimen contaminated with epithelial cells client account representative of oropharyngeal contamination. Further processing may yield potentially misleading results. CULTURE GROWTH -- -- -- Specimen unsatisfactory. Not tested. BLOOD CULTURE GROWTH No growth to date No growth to date No growth -- No growth Radiographic Studies: reviewed. XR CHEST 1 VIEW Result Date: 11/23/2023 IMPRESSION No significant interval change in diffuse bilateral pulmonary opacities. I have personally reviewed this examination and agree with the resident/fellow physician's interpretation. XR CHEST 1 VIEW Result Date: 11/21/2023 IMPRESSION 1. Indistinct airspace opacities in both lung bases, which may pneumonia or aspiration in the correct clinical setting. 2. Probable small right pleural effusion. 3. Pulmonary vascular congestion. Cardiac Studies: 11/23/2023 TTE The examination is limited quality but adequate for evaluation of the referral indication. There was atrial fibrillation during the examination. The qualitative LV ejection fraction is 60-64% (normal). The LV wall thickness is severely increased (concentric). No LV segmental wall motion abnormalities. The resting peak instantaneous left ventricular outflow tract gradient is 58 mm Hg. The inducible peak instantaneous left ventricular outflow tract gradient is 72 mm Hg. Moderate mitral stenosis is present. There is moderate mitral regurgitation at rest. Moderate tricuspid regurgitation is present. The right ventricular cavity is moderately dilated. The right ventricular systolic function is mildly reduced . Indeterminate IVC size and collapsability. Right atrial pressure estimated at 8 mmHg. Moderate pulmonary hypertension is present. The estimated pulmonary artery systolic pressure is 50mm Hg. Current Facility-Administered Medications: albuterol-ipratropium (Duoneb) inhalation solution 3 mL, 3 mL, Nebulizer, Q4H PRN, Eri Babin MD Apixaban (Eliquis) tab 2.5 mg, 2.5 mg, Oral, BID(AM/PM), De Martinez DO aspirin chew tab 81 mg, 81 mg, Oral, Daily(AM), De Martinez DO atorvaSTATin (Lipitor) tab 20 mg, 20 mg, Oral, Daily(AM), De Martinez DO dorzolamide-timolol (Cosopt Ocumeter Plus) ophthalmic solution 1 Drop, 1 Drop, Both eyes, BID(AM/PM), De Martinez DO fluticasone (Flonase) nasal inhaler 1 [place], 1 [place], Nasal, Daily(AM), De Martinez DO fluticasone furoate-vilanterol (BREO ellipta) 100-25 MCG/ACT inhaler 1 Puff, 1 Puff, Inhalation, Daily(AM), De Martinez DO, 1 Puff at 11/23/23 0752 Latanoprost (Xalatan) 0.005 % ophthalmic solution 1 Drop, 1 Drop, Both eyes, HS, De Martinez DO Methimazole (Tapazole) tab 2.5 mg, 2.5 mg, Oral, Daily(AM), De Martinez DO potassium chloride ER tab 40 mEq, 40 mEq, Oral, Q1H, De Martinez DO rOPINIRole (Requip) tab 1 mg, 1 mg, Oral, QHS, De Martinez DO senna-docusate (Senokot-S) 1 Tablet, 1 Tablet, Oral, Daily(AM), De Martinez DO Assessment & Plan Assessment and Plan: Principal Problem: 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 * POA = Present On Admission Maria Luisa Recinos is a 87 year old female with PMHx of heart failure with preserved ejection fraction,severe tricuspid regurg, moderate mitral stenosis, hypertension, hyperlipidemia, severe pulmonary hypertension, and HOCM who is admitted for concerns of volume overload as well as LVOT obstruction. 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 Patient has a very tenuous volume status due to multiple comorbidities like HOCM, concern of LVOT obstruction, severe tricuspid regurg, moderate mitral stenosis, and pulmonary hypertension. Will start patient on a beta vikki to see if rate control will help overall perfusion. Start Toprol 25 Continue to hold all diuretics including IN SERVICE EDUCATION TEACHER medications (metolazone, torsemide, spironolactone andmonitor volume status closely. EKG p.r.n. Daily BMP, noted to be hypokalemic on labs today. Potassium supplementation given Continue on telemetry monitoring Continue IN SERVICE EDUCATION TEACHER Eliquis Obtain repeat TTE Will discontinue Jardiance on discharge LINES / DRAINS / TUBES: LINES ALL Duration Peripheral Line Left Antecubital 20 Gauge 1 day Urethral Catheter Regular catheter 1 day List of services consulted/following: None Patient was discussed with attending physician, Eri Babin MD This chart was completed in part utilizing [employer] Speech Voice Recognition Software. Grammatical errors, random word insertions, pronoun errors, and incomplete sentences are an occasional consequence of this system due to software limitations, ambient noise, and hardware issues. Any formal questions or concerns about the content, text, or information contained within the body of this dictation should be directly addressed to the provider for clarification. documented in this encounter H&P Notes * Eri Babin MD - 11/23/2023 3:11 AM EDT GENERAL HISTORY AND PHYSICAL EXAMINATION - CARDIOLOGY [facility]-[address] [id number] Name: Maria Luisa Recinos Location: [facility] [id number] Date: 11/23/2023 Time: 5:31 AM Date of Admission: 11/23/2023 Presenting Problem: HOCM, AoC CHF HPI: Maria Luisa Recinos is a 87 year old female with PMH of HOCM, HFpEF, Severe TR, Moderate Mitral Stenosis, hypertension, HLD, Severe Pulmonary HTN, Afib, on Eliquis, CKD stage 3, Graves disease, idiopathicpulmonary fibrosis with recurrent admission for heart failure that presents to [facility] as transfer from [facility] for AoC HF exacerbation in setting of severe TR and HOCM. Patient originally presented to [place] yesterday for acute on chronic respiratory failure, CHF exacerbation, urinary retention and altered mental status. [facility] Required insertion of laws catheter with immediate output of 1.2 Liters improving the abdominal discomfort patient was experiencing as well as her mental status. Weight on admission 84 kg (185lb). Patient initially required High Flow Oxygen and titrated from 5 Liters NC to 3 Liters. Received Lasix 80 mg as well as Lasix 60 BID. Was given one time doses of Vanc & Cefepime for empiric PNA coverage at admission. Unfortunately, diuresis was complicated by hypotension thus Cardiology wasconsulted and recommended transfer to [facility] for further management. Upon arrival patient reports feeling much better than when she presented to [place]. Is now on Room air and has no shortness of breath at rest. Has needed 3L of supplemental O2 at the [facility] recently. Denies any chest pain, lightheadedness, dizziness, palpitations, N/V. Of note, has multiple recent admissions for CHF exacerbations. Wishes to be a NO CODE. ROS: All systems reviewed. Pertinent findings documented in HPI, all others negative. Pertinent Cardiac History: 11/02/2023 TTE: Interpretation Summary The examination is limited quality but adequate for evaluation of the referral indication. The qualitative LV ejection fraction is 55-59% (normal). The septal motion is abnormal consistent with right ventricular pressure and volume overload. The right ventricular systolic function is mildly reduced . The left ventricular diastolic fillling pressure is elevated. Severe tricuspid regurgitation is present. Severe pulmonary hypertension is present. Dilated IVC with reduced collapsability with sniff indicates an elevated right atrial pressure of 15mmHg. Left Ventricle The qualitative LV ejection fraction is 55-59% (normal). The left ventricular cavity size is normal. The LV wall thickness is normal. There is no left ventricular mural thrombus. Left Ventricular Wall Motion The septal motion is abnormal consistent with right ventricular pressure and volume overload. Right Ventricle The right ventricular systolic function is mildly reduced . The right ventricular cavity size is enlarged (basal dimension > 4.2 cm RV apical 4 chamber view). Atria The left atrium is severely enlarged. The right atrium is moderately enlarged. Diastolic Function The left ventricular diastolic fillling pressure is elevated. Aortic Valve The aortic valve is moderately calcified. Mild aortic valve stenosis is present. Mild aortic valve regurgitation is present. Mitral Valve There is severe mitral annular calcification. The mitral valve leaflets are moderately calcified. Moderate mitral stenosis is present. Moderate mitral regurgitation is present. Tricuspid Valve Tricuspid stenosis is absent. Severe tricuspid regurgitation is present. Pulmonary Valve The pulmonary valve is inadequately visualized but the Doppler data is adequate for interpretation.. Pulmonic stenosis is absent. There is mild pulmonary regurgitation. Vessels The aortic root is normal sized. The proximal ascending thoracic aorta is mildly enlarged. Septae There is no evidence of an atrial septal defect but resolution does not allow assessment for a patent foramen ovale. Hemodynamics Dilated IVC with reduced collapsability with sniff indicates an elevated right atrial pressure of 15mmHg. Severe pulmonary is present. 10/04/2021 Cardiac Catheterization: Normal coronaries. Past Medical History: Past Medical History: Diagnosis Date AAA (abdominal aortic aneurysm) ([facility]) Acute combined systolic and diastolic CHF, NYHA class 1 ([facility]) 10/03/2023 Aortic stenosis, mild Atrial fibrillation (HCC) CAD (coronary artery disease) Chronic respiratory failure (HCC) Graves disease Hypertrophic cardiomyopathy (HCC) Mixed hyperlipidemia Moderate mitral stenosis Nonrheumatic mitral valve stenosis Primary hypertension Pulmonary hypertension (HCC) Second hand smoke exposure Severe tricuspid regurgitation Supplemental oxygen dependent Past Surgical History: Past Surgical History: Procedure Laterality Date APPENDECTOMY W/OTHER PROCEDURE CORONARY ANGIOGRAPHY W/LEFT HEART CATH Right 10/04/2021 CORONARY ANGIOGRAPHY W/LEFT HEART CATH performed by Rodri Jacobs MD at CARDIAC LABS [facility] LAP;W/HYSTERECTOMY [place] CHOLECYSTECTOMY Family Medical History: obtained and not relevant in this case Family History Problem Relation Age of Onset Diabetes Mother Stroke Mother Heart Disorder Father 63 [place] Hypertension Brother Heart Disorder Aunt (Unspecified) [place] Heart Disorder Uncle (Unspecified) [place] Hypertension Son Hypertension Daughter Social History: Social History Tobacco Use Smoking status: Never Passive exposure: Past Smokeless tobacco: Never Tobacco comments: Parents smoked in home growing up and then work place up until 1967 Vaping Use Vaping Use: Never used Substance Use Topics Alcohol use: Not Currently Drug use: Never Allergies: Amoxicillin, Gatifloxacin, and Latex Review of Systems: 10 point review of systems was conducted with pertinent positives and negatives as stated above, otherwise negative. Objective: Most Recent Vital Signs: BP: 93 mmHg/52 mmHg (11/23/23318) Pulse: 62 (11/23/23318) Temp: 36.61 C (11/23/23 0300) Temp Summary: Temp Min: 36.6 C (97.9 F) Max: 36.6 C (97.9 F) SpO2: 94 % (11/23/23318) O2 flow rate: Supplemental O2 Delivery: Room Air, None (11/23/23318) Physical Examination: General: Elderly female laying flat in bed, appears comfortable HEENT: Sclera white, extraocular muscles intact, oral mucosa pink and moist Neck: No obvious thyromegaly or JVD Cardiovascular: RRR, systolic murmur present Respiratory: CTAB, no wheezes, rales, or rhonchi; no increased respiratory effort Abdomen: Soft, non-tender, non-distended, normal bowel sounds Musculoskeletal: No joint deformity Extremities: No lower extremity edema bilaterally, 2/4 pedal pulses bilaterally Neuro: Moves all extremities equally, no focal deficits Psych: normal affect, responds to questions appropriately Skin: No rashes, no skin lesions Laboratory Values: reviewed Recent Results (from the past 24 hour(s)) GLUCOSE METER, POINT OF CARE Collection Time: 11/22/23 6:10 AM Result Value Ref Range Glucose Meter 93 70 - 120 mg/dL GLUCOSE METER, POINT OF CARE Collection Time: 11/22/23 11:59 AM Result Value Ref Range Glucose Meter 98 70 - 120 mg/dL GLUCOSE METER, POINT OF CARE Collection Time: 11/22/23 6:12 PM Result Value Ref Range Glucose Meter 105 70 - 120 mg/dL GLUCOSE METER, POINT OF CARE Collection Time: 11/23/23 12:07 AM Result Value Ref Range Glucose Meter 106 70 - 120 mg/dL Radiographic & Other Studies: reviewed XR CHEST 1 VIEW Result Date: 11/21/2023 IMPRESSION 1. Indistinct airspace opacities in both lung bases, which may pneumonia or aspiration in the correct clinical setting. 2. Probable small right pleural effusion. 3. Pulmonary vascular congestion. 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 * POA = Present On Admission Maria Luisa Recinos is a 87 year old female with PMH of PMH of HOCM, HFpEF, Severe TR, Moderate Mitral Stenosis, Afib on Eliquis, hypertension, HLD, Severe Pulmonary HTN, CKD stage 3, Graves disease, idiopathic pulmonary fibrosis that presents as transfer from [facility] for AoC CHF exacerbation in the settingof HOCM and Severe TR. Acute hypoxic respiratory failure and acute CHF exacerbation seems to have resolved for now as patient is doing well on RA and examines euvolemic. However, Patients Bps are soft while laying down andlower even further when sitting up. POCUS exam shows likely LVOT obstruction and patient would benefit from fluids for now. Is very tenuous given her multiple cardiac co-morbidities and has high likelihood of going back into Acute HF exacerbation after fluid resuscitation and thus must be monitoredclosely. HOCM Inducible LVOT obstruction AHRF - resolved AoC HFpEF - resolved Severe TR Severe Pulmonary HTN Afib on Eliquis HTN HLD HDS, now on RA (on 5L at OSH), Pocus with inducible LVOT obstruction. Give 500 cc bolus Hold further diuretics for now given pre-load dependent state Not on BB as has not tolerated Toprol in the past Hold IN SERVICE EDUCATION TEACHER Jardiance, Torsemide, Spironolactone, & Zaroxolyn Cont IN SERVICE EDUCATION TEACHER Lipitor 20 Cont IN SERVICE EDUCATION TEACHER ASA 81 Cont IN SERVICE EDUCATION TEACHER Eliquis Chronic Problems: Idiopathic pulmonary fibrosis: Continue IN SERVICE EDUCATION TEACHER Breo & PRN albuterol Graves Disease: Continue IN SERVICE EDUCATION TEACHER Methimazole TLS: Continue IN SERVICE EDUCATION TEACHER Ropinirole Misc: Bowel Regimen: none Sleep: no sleep protocol Laws: none Rehab: none VTE Prophylaxis: Eliquis Code Status: No Code Patient will be seen and examined by attending physician, MD De Eddy DO Resident, Internal Medicine I saw and evaluated the patient today. I have reviewed the trainee note and agree. Complex cardiac problems including LVH with small LV cavity and mid-cavity obstruction, mitral valve disease with moderate MS and posteriorly directed moderate MR, moderate aortic valve stenosis, tricuspid regurgitation and severe pulmonary hypertension. She is understandably very sensitive to diuretic therapy. At the SNF she was reportedly given 3 liters of IVF for hemodynamic support. Weather there was associated renal dysfunction is not reported. In addition to the above patient has underlying lung disease with interstitial fibrosis at lung bases both on exam and by CT. At the time of my assessment patient does not have signs of volume overload JVP elevation is from TR and PHTN Crackles at lung bases are indicative of pulmonary fibrosis. We have to rethink her chronic medical therapy: She needs a negative inotropic agent to allow myocardial relaxation. We are introducing metoprolol with gradual dose escalation. This will also help with trans-mitral gradient Discontinue Jardiance and spironolactone Hold chronic torsemide at this time and cautiously reintroduce at a lower dose. I have advised the patient that in the terminal operations supervisor she may be left with mild peripheral edema which I will tolerate as long as she is symptomatically better. Eri Babin MD 11/23/2023 4:41 PM documented in this encounter Procedure Notes * Rakesh Meek MD - 11/27/2023 6:04 PM EDTAssociated Order(s): EKG REASON FOR STUDY: post pacer CONCLUSIONS: Atrial rhythm undetermined Ventricular pacing Appropriate ventricular capture Abnormal ECG When compared with ECG of 25-Apr-2024 03:55, Prior atrial rhythm was atrial fibrillation Ventricular pacing now present Ventricular Rate: 70 Atrial Rate: 74 QRS Duration: 212 QT/QTc: 528/570 ms P-R-T Ulm: 0 : -77 : 97 degrees * Sol Duncan MD - 11/27/2023 2:35 PM EDT DATE: October PROCEDURE: Implantation of a single chamber pacemaker Fluoroscopy of the leads INDICATION: HCM with LVOT obstruction , AF and Bradycardia with ventricular pauses ANESTHESIA: 1% local lidocaine .Conscious Sedation with midazolam and fentanyl. Trained observer Katerine Spicer RN administered the sedation. Total of 1 mg of Versed and 50mcg of Fentanyl was given during the procedure. Also Vancomycin/ Cefazolin was given for surgical prophylaxis. Sedation Start Time 1547 Sedation End Time 1630 Estimated Blood Loss:<15 ml PROCEDURE: The patient was brought to the Electrophysiology Laboratory in the fasted and unsedated state. Throughout the course of the procedure, cardiac hemodynamics and the respiratory status were continuously monitored by subjective assessment, blood pressure monitoring via arterial line and pulse oximetry. The patient was prepped and draped in the usual, sterile fashion. The left pectoral region was infiltrated with 2% lidocaine to provide local anesthesia. An incision was made in the left pectoral area and the wound dissected with blunt dissection and electrocautery to the pectoralis fascia. Hemostasis was obtained with electrocautery. A subcutaneous pocket was formed medially over the pectoralis muscle. Using modified-Seldinger technique, the left axillary vein was cannulated and a sinlge guide wire was advanced to the inferior vena cava under fluoroscopic guidance. Using a hemostatic peel-away sheath, a ventricular lead was advanced to the inferior vena cava. Using a curved stylet, this lead was positioned in the RV apex . The lead was attached to an external pacing systems analyzer and pacing and sensing characteristicsmeasured, as noted below. If unacceptable, the lead was repositioned to an acceptable site. If an active fixation lead(s) was used, the mechanism was advanced from the lead tip using the provided tools and under fluoroscopic guidance. Pacing through the lead with a 10 V amplitude did not cause chest wall or diaphragmatic stimulation.. The lead was then securely fastened to the pectoralis fascia using 2-0 Silk suture and the provided suture sleeves. The wound was thoroughly irrigated with antibiotic solution. The pulse generator was then attached to the lead using the header set screws and the provided torque wrench. The pulse generator was then placed in the subcutaneous pocket with the redundant pacing lead coiled underneath it.The wound was closed in a conventional fashion using absorbable suture. The wound was then dressed sterilely with a light pressure dressing. There was no fluoroscopic evidence of pneumothorax and the leads were well positioned by fluoroscopic criteria. The patient tolerated the procedure well and was returned to a monitored bed in stable condition. PACING SYSTEM: [employer] Model No. Serial No. Pulse Generator MDT [id number] Right Ventricular Lead MDT [id number] MEASUREMENTS THRESHOLD DATA R Ventricle Pacing Threshold (V @ 0.5 msec) 1.2 Impedance (Ohms) 8675.9 Electrogram (mV) Final programmed settings: Mode: VVIR Rate limits: 70-110 Complications/Comments: No acute complication 1. EKG 2. Chest x-ray PA lateral . 3. Start Eliquis from 10/30/2023 morning 4.Keep the wound dry for 1 week ( May take sponge bath but no regular shower or bath 5. Do not lift heavy objects ( > 10 lbs) or raise the left Arm above shoulder for 4 weeks 6. Device Clinic follow up in 1 week Sol Duncan MD EP Attending * Rakesh Meek MD - 11/23/2023 3:55 AM EDTAssociated Order(s): EKG REASON FOR STUDY: sob CONCLUSIONS: Atrial fibrillation Nonspecific intraventricular conduction delay Possible Lateral infarct , age undetermined Lateral ST abnormality, consider ischemia Abnormal ECG When compared with ECG of 22-Nov-2023 04:35, No significant change was found Ventricular Rate: 61 QRS Duration: 122 QT/QTc: 468/471 ms P-R-T [place]: 0 : -2 : 128 degrees documented in this encounter Consult Notes * Levar Anguiano, PT - 11/27/2023 1:49 PM EDTAssociated Order(s): ADULT PHYSICAL THERAPY CONSULT IP GENERAL EVALUATION - Physical Therapy [address] [address] Name: Maria Luisa Recinos Location: [facility] [id number] Date: 11/27/2023 Time: 1:49 PM Maria Luisa Recinos is a 87 year old female. Patient Status: Inpatient Insurance: Payor: MEDICARE Plan: MEDICARE A AND B Product Type: *No Product type* Payor: [facility] ([place]) Plan: [employer] MEDICARE SUPPLEMENT Product Type: *No Product type* Patient Seen: at bedside, nursing cleared patient for therapy Patient Identified By: Name, ID Band, and Date Subjective: Pt seen in room, sitting OOB in chair. Daughter at bedside. Diagnosis: respiratory failure (11/27/23 1323) Status of treatment: Evaluation completed (11/27/23 1323) Orders: PT evaluation and treatment;OOB (11/27/23 1323) Precautions: Falls;Oxygen (11/27/23 1323) Total Treatment Time--free text: 18 (11/27/23 1323) Past Medical History: Past Medical History: Diagnosis Date AAA (abdominal aortic aneurysm) (HCC) Acute combined systolic and diastolic CHF, NYHA class 1 (HCC) 10/03/2023 Aortic stenosis, mild Atrial fibrillation (HCC) CAD (coronary artery disease) Chronic respiratory failure (HCC) Graves disease Hypertrophic cardiomyopathy (HCC) Mixed hyperlipidemia Moderate mitral stenosis Nonrheumatic mitral valve stenosis Primary hypertension Pulmonary hypertension (HCC) Second hand smoke exposure Severe tricuspid regurgitation Supplemental oxygen dependent Past Surgical History: Past Surgical History: Procedure Laterality Date APPENDECTOMY W/OTHER PROCEDURE CORONARY ANGIOGRAPHY W/LEFT HEART CATH Right 10/04/2021 CORONARY ANGIOGRAPHY W/LEFT HEART CATH performed by Rodri Jacobs MD at CARDIAC LABS [facility] LAP;W/HYSTERECTOMY [place] CHOLECYSTECTOMY Social History/Disposition Lives with: Alone (11/27/231322) Assistance available: Yes (11/27/231322) Dwelling type: Single story home (11/27/231322) Entry steps: 2 (11/27/231322) Inside steps: None (11/27/231322) Bedroom location: 1st floor (11/27/231322) Bath location: 1st floor full bath (11/27/231322) Prior Level of Function Reported by: Patient (11/27/231322) Ambulation: Ambulatory with device (11/27/231322) Ambulatory Device: Rolling walker (11/27/231322) Devices at home: Rolling walker (11/27/231322) Observations Consciousness: Alert (11/27/231322) Orientation: Oriented times 4 (11/27/231322) Psychosocial: Patient can communicate basic needs;Patient can converse in a social setting (11/27/231322) Sitting Posture: Rounded shoulders (11/27/231322) Standing Posture: Rounded shoulders (11/27/231322) Pain: No complaints of pain LOWER EXTREMITY ASSESSMENT: LE MMT: Grossly 4/5 LE ROM: WFL Transfers Sit-Stand: Supervision (11/27/231322) Stand-Sit: Supervision (11/27/231322) Ambulation Assist: Supervision (11/27/231322) Distance Ambulated (feet): 10 (x2) (11/27/231322) Assistive Device: Rolling walker (11/27/231322) Ambulatory safety: Patient verbalizes insight of current deficits;Patient demonstrates carryover ofinsight during functional tasks (11/27/231322) Balance Sit (Static): Fair (11/27/231322) Sit (Dynamic): Fair (11/27/231322) Stand (Static): Fair (11/27/231322) Stand (Dynamic): Fair (11/27/231322) Patient and or Family Goal(s): to get well Patient Education Safety Awareness: Patient verbalizes insight of current deficits;Patient demonstrates carryover of insight during functional tasks;Patient can communicate basic needs (11/27/231322) Preferred learning method: Combination (11/27/231322) Barriers to learning: None (11/27/231322) Method of Education: Verbalized to patient;Patient demonstrated task (11/27/231322) Topic of Education: Safety with mobility, Goals/plan of care, and Use of assistive device Method of Education: Verbal discussion and explanation provided to patient: verbalized understanding and or agreement of this information Treatment Provided: Evaluation Low Complexity 18 minutes - 00651: Patient was cooperative during treatment session. Low complexity evaluation performed with indication of no personal factors or comorbidities that impact plan of care. Patient presents with limitations in strength, bed mobility, transfers, gait, elevations, balance, and endurance, which will impact plan of care. These limitations will be addressed by the goals set for this patient. Alarm Status Patient positioned in: Chair (11/27/231322) With: Call leon in reach (11/27/231322) Following session patient seated OOB in chair with chair alarm activated. Chair alarm (did not havecord to plug into call leon system). Patient's nurse was aware, pt was in chair prior to session. Assessment: Maria Luisa Recinos is a 87 year old female admitted to [facility] with respiratory failure. On exam pt has mild LE weakness. Pt was only able to ambulate a short distance due to fatigue. Pt used a walker, slow kaley observed. Pt reports doing for pacemaker insertion this afternoon, she is hopeful this helps her endurance. Pt may benefit from continued PT services to work on deficits to maximize functional independence. Please consider post-acute care services which may include home health, halfway, outpatient therapy or inpatient rehabilitation. The level of care will be determinedin collaboration with patient, family/caregiver and care team members. Deficits requiring P.T. treatment needs: Mobility;Weakness;Endurance (11/27/231322) Goals: Demonstrate Bed Mobility with : Supine to Sit: Modified Independent Sit to Supine: Modified Independent Demonstrate Transfers with: Sit to Stand: Modified Independent Stand to Sit: Modified Independent Demonstrate Ambulation: Device: Rolling Walker Distance in feet: 150 feet Level of Assistance on level surface: Modified Independent Demonstrate Stairclimbing: Number of steps: 2 : 1 rail, and Level of Assistance: Modified Independent Increase Strength of: 1/2 grade in B LE's Increase Balance: Fair + with Dynamic Standing Time Frame: 8 visits Treatment Plan: Bed mobility training, Transfer training, Gait training, Elevation training, Strengthening exercises, and Balance activities Anticipated Frequency (on eval): 1 to 3 times per week (11/27/231322) AM-PAC Score With Stairs : 17 (11/27/231322) Some items of AM-PAC not tested due to overall medical status, grades determined based on clinical judgement of how patient may do at this time had they been assessed. * Mayra Eid OTR/Manuel - 11/27/2023 1:20 PM EDTAssociated Order(s): ADULT OCCUPATIONAL THERAPY CONSULT IP GENERAL EVALUATION - Occupational Therapy [address] [address] Name: Maria Luisa Recinos Location: CATH/Cath Date: 11/27/2023 Time: 13:20 PM Maria Luisa Recinos is a 87 year old female. 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 (11/27/231319) Status of treatment: Evaluation completed (11/27/231319) Orders: OT evaluation and treatment;OT OOB (11/27/231319) Weight Bearing Status: Weight bearing as tolerated (11/27/231319) Precautions: Alarms;Falls;Safety;Skin (11/27/231319) Total Treatment Time: 15 (11/27/231319) Per Epic: "Presenting Problem: HOCM, AoC CHF HPI: Maria Luisa Recinos is a 87 year old female with PMH of HOCM, HFpEF, Severe TR, Moderate Mitral Stenosis, hypertension, HLD, Severe Pulmonary HTN, Afib, on Eliquis, CKD stage 3, Graves disease, idiopathicpulmonary fibrosis with recurrent admission for heart failure that presents to [facility] as transfer from [facility] for AoC HF exacerbation in setting of severe TR and HOCM. Patient originally presented to [place] yesterday for acute on chronic respiratory failure, CHF exacerbation, urinary retention and altered mental status. She received 3 Liters of fluids at the nursinghome. Required insertion of laws catheter with immediate output of 1.2 Liters improving the abdominal discomfort patient was experiencing as well as her mental status. Weight on admission 84 kg (185lb). Patient initially required High Flow Oxygen and titrated from 5 Liters NC to 3 Liters. Received Lasix 80 mg as well as Lasix 60 BID. Was given one time doses of Vanc & Cefepime for empiric PNA coverage at admission. Unfortunately, diuresis was complicated by hypotension thus Cardiology wasconsulted and recommended transfer to [facility] for further management. Upon arrival patient reports feeling much better than when she presented to [place]. Is now on Room air and has no shortness of breath at rest. Has needed 3L of supplemental O2 at the [facility] recently. Denies any chest pain, lightheadedness, dizziness, palpitations, N/V. Of note, has multiple recent admissions for CHF exacerbations. Wishes to be a NO CODE." Past Medical History: Past Medical History: Diagnosis Date AAA (abdominal aortic aneurysm) (HCC) Acute combined systolic and diastolic CHF, NYHA class 1 ([facility]) 10/03/2023 Aortic stenosis, mild Atrial fibrillation (HCC) CAD (coronary artery disease) Chronic respiratory failure (HCC) Graves disease Hypertrophic cardiomyopathy (HCC) Mixed hyperlipidemia Moderate mitral stenosis Nonrheumatic mitral valve stenosis Primary hypertension Pulmonary hypertension (HCC) Second hand smoke exposure Severe tricuspid regurgitation Supplemental oxygen dependent Past Surgical History: Past Surgical History: Procedure Laterality Date APPENDECTOMY W/OTHER PROCEDURE CORONARY ANGIOGRAPHY W/LEFT HEART CATH Right 10/04/2021 CORONARY ANGIOGRAPHY W/LEFT HEART CATH performed by Rodri Jacobs MD at CARDIAC LABS [facility] LAP;W/HYSTERECTOMY [place] CHOLECYSTECTOMY Social History/Disposition Lives with: Alone (11/27/231322) Assistance available: Yes (11/27/231322) Dwelling type: Single story home (11/27/231322) Entry steps: 2 (04/29/24 1323) Inside steps: None (11/27/231322) Bedroom location: 1st floor (11/27/23 1323) Bath location: 1st floor full bath (11/27/231322) Prior Level of Function Reported by: Patient (11/27/231319) Ambulation: Ambulatory with device (11/27/231319) Ambulatory Device: Rolling walker (11/27/231319) Grooming: Independent (11/27/231319) Bathing: Assistance (11/27/231319) Dressing: Assistance (11/27/231319) Feeding: Independent (11/27/231319) Toileting: Assistance (11/27/231319) Durable Medical Equipment at home: Rolling walker (11/27/231319) Subjective: Pt was noted to be seated OOB in chair upon arrival and agreeable to therapy services. Pain: No complaints of pain Observations Consciousness: Alert (11/27/231319) Orientation: Person (not further assessed) (11/27/231319) Psychosocial: Patient can communicate basic needs;Patient can converse in a social setting (11/27/231319) Sitting posture: Forward head;Rounded shoulders (11/27/231319) Standing posture: Forward head;Rounded shoulders (11/27/231319) Safety awareness: The Patient verbalizes insight of current deficits.;Needs cueing supervision. (11/27/231319) Other Findings Endurance: Sitting tolerance;Fair;Standing tolerance;Functional activity;Poor (11/27/231319) Light touch sensation: LUE;RUE;Intact (11/27/231319) Coordination: LUE;RUE;Gross motor;Impaired;Fine motor;Intact (11/27/231319) Current Functional Status: Bilateral Upper Extremity Range of Motion: WFL, except (11/27/231319) LUE: Shoulder (flexion limited to ~100 degrees) (11/27/231319) RUE: Shoulder (flexion limited to ~100 degrees) (11/27/231319) Strength Assessment: Deficits noted (11/27/231319) LUE: Shoulder;2+/5;Elbow;3+/5;Grasp;4/5 (11/27/231319) RUE: Shoulder;2+/5;Elbow;3+/5;Grasp;4/5 (11/27/231319) Dressing Upper Body: Minimal Assistance (to fatou gown) (11/27/231319) Lower Body: Dependent (to fatou socks/shoes) (11/27/231319) Functional Ambulation Assistive Device: Rolling walker (11/27/231319) Distance in feet:: 10 (+10) (11/27/231319) Level of Assistance: Supervision (Please Comment) (11/27/231319) OT Transfers Sit-Stand: Supervision (Please comment) (from chair) (11/27/231319) Stand-Sit: Supervision (Please comment) (to chair) (11/27/231319) Balance Sit (Static): Fair (11/27/231319) Sit (Dynamic): Fair (11/27/231319) Stand (Static): Fair (11/27/231319) Stand (Dynamic): Fair (11/27/231319) Alarm Status Patient positioned in: Chair (11/27/231319) With: Pressure pad alarm intact and functioning and call leon in reach (11/27/231319) Following session patient seated OOB in chair with chair alarm activated and cord plugged into callbell system. Patient and Family Goals: to get well Patient Education Education Topic: Role of OT;Plan of care goals (11/27/231319) Review of Precautions: Safety;Fall (11/27/231319) Method of Education: Verbalized to patient (11/27/231319) Education Provided to: Patient (11/27/231319) Response to Education: Receptive and agreeable to education (11/27/231319) Barriers to learning: Medical status (11/27/231319) Preferred learning method: Combination (11/27/231319) Treatment Provided: Evaluation Moderate Complexity 15 minutes - 39204: Patient was cooperative and pleasant during treatment session. Moderate complexity evaluation performed and 3-5 activity limitations were identified, including ADL deficit, functional mobility deficit, decreased strength, decreased endurance, decreased range of motion, and impaired balance. Minimal or moderate modification of the functional task was necessary to complete the evaluation. Deficits Requiring O.T. Treatment: Deficits requiring O.T. treatment needs: ADL/self-care;Balance;Endurance;Functional mobility;Safety;Upper extremity strength;Weakness;Upper extremity range of motion (11/27/23 1320) Goals: Demonstrates Self-care at: Feeding: Modified Independent Grooming: Modified Independent Toileting: Modified Independent UE dressing: Modified Independent UE bathing: Modified Independent LE dressing: Modified Independent via AE as needed LE bathing: Modified Independent via AE as needed Demonstrates Bed Mobility at: Supine-Sit: Modified Independent Sit-Supine: Modified Independent Demonstrates transfers at: Sit-Stand: Modified Independent Stand-Sit: Modified Independent Bed-Chair: Modified Independent Toilet: Modified Independent Shower/Tub: Modified Independent Demonstrates functional ambulation at: Assistive device: appropriate device as needed Level of Assistance: Modified Independent Balance: Static Sitting: Fair+ Dynamic Sitting: Fair+ Static Standing: Fair+ Dynamic Standing: Fair+ Strength/ROM: Increase BUE strength 1/2 muscle grade Increase bilateral upper extremity shoulder active range of motion to ~130 degrees Endurance: Increase endurance to 30/30 minutes in order to improve participation in ADL tasks and general mobility Safety awareness/Cognition: Increase safety awareness during functional mobility Increase orientation to 4/4 100% of the time with no verbal cues Goal Time Frame: 8 visits Assessment: Pt was admitted to [facility] for the above dx. Pt was pleasant and cooperative during her OT evaluation this date. Upon arrival, pt was seated OOB in chair and agreeable to therapy services. Family at bedside. Prior to admission, pt resided at [facility], where she required assistance for most ADL tasks and performed mobility with use of a rolling walker. Unsure if pt was receiving therapy services at [facility] prior to admission. Upon exam, while seated in chair, pt completed UE dressing task with min A secondary to decreased shoulder ROM and LE dressing task with total A due to limitedfunctional reach. Pt may benefit from adaptive equipment to increase her independence with LE ADL tasks. Sit<>stand transfers and ambulation were completed with supervision. Pt ambulated 10 ft + 10 ft in room with use of a rolling walker. Ambulation currently limited due to decreased endurance/fatigue. Pt required one seated rest break during ambulation ~4 minutes. Following session, pt wasnoted to be seated in chair with call leon in reach. All needs met. Currently, pt presents with difficulty in ADL completion and general mobility secondary to decreased strength, balance, endurance, safety awareness, and overall current medical status. Pt would benefit from acute OT services to increase her independence with ADL tasks and general mobility. In regard to discharge, please consider p ost-acute care services which may include home health, halfway, outpatient therapy or inpatient rehabilitation. The level of care will be determined in collaboration with patient, family/caregiver and care team members. Treatment Plan: Energy Conservation, Safety, Bed mobility training, Functional Ambulation, Coordination Tasks, ROM exercises, Upper extremity strengthening, Balance activities, ADL training, Endurance, and Educate on safety with ADLs and mobility. Anticipated Frequency (on eval): 1 to 3 times per week (11/27/23 132) AM-PAC Help From Another Person Eating Meals: None (11/27/231319) Help From Another Person Taking Care of Personal Grooming: A little (11/27/231319) Help From Another Person To Put On/Take Off Upper Body Clothing: A little (11/27/231319) Help From Another Person To Put On/Take Off Lower Body Clothing: Total (11/27/231319) Help From Another Person Toileting: A lot (11/27/231319) Help From Another Person Bathing: A lot (11/27/231319) OT AM-PAC Score: 15 (11/27/23 132) OT AM-PAC t-Scale Score: 34.69 (11/27/23 132) HLM (Highest Level of Mobility) Goal: Level 5 standing (1 or more minutes) (11/27/23 1323) A portion of this AM-PAC assessment not scored based on functional assessment; rather clinical decision making utilized based on current findings and/or prior level of function. Please refer to future AM-PAC calculations of functional ability as they become available. * Sol Duncan MD - 11/27/2023 10:41 AM EDTAssociated Order(s): ELECTROPHYSIOLOGY CONSULT IP CONSULT - Electrophysiology [facility]-[address] [id number] Name: Maria Luisa Recinos Location: [facility]852/A Date: 11/27/2023 Time: 10:41 AM REQUESTING SERVICE: Cardiology REASON FOR CONSULT: Atrial fibrillation, ARMAAN-HCM PRESENTING PROBLEM: Maria Luisa Recinos BANNER is seen in consultation for appropriateness of PPM to allow for AV lenore blockage in the setting of atrial fibrillation and ARMAAN-HCM . HPI: Maria Luisa Recinos is a 87 year old female with PMH of HOCM, HFpEF, Severe TR, Moderate Mitral Stenosis, hypertension, HLD, Severe Pulmonary HTN, Afib, on Eliquis, CKD stage 3, Graves disease, idiopathic pulmonary fibrosis with recurrent admission for heart failure that presents to [facility] for AoC HF exacerbation in setting of severe TR and HOCM. Patient transferred from [facility] on chronic respiratory failure, CHF exacerbation,urinary retention, and altered mental status. At [place] patient required HFNC, increased Lasix, and empiric PNA coverage with vancomycin and cefepime. Upon arrival to [facility] patient reports feeling much improved. Denies chest pain, lightheadedness, dizziness, palpitations, N/V/D. Throughout admission patient has been stable on room air with several episodes of periodic shortness of breath. Patient has been diuretic free for 48 hours and no longer shows signs or symptoms of heart failure. Patient examined while lying comfortably in bed with daughter, Bre, at bedside. Patient reports that she does at times get short of breath with exertion and will also at times feel lightheaded. Telemetry review shows atrial fibrillation with slow ventricular response and pauses of approximately 2 seconds. Pauses are frequent. Patient denies chest pain, palpitations, N/V/D, and trouble voiding. Reports that laws catheter was removed yesterday. Patient reports that she feels overall weak and decompensated and will likely pursue rehabilitation stay on discharge. Discussed with patient that a PPM may help alleviate some of her symptoms and reduce the need for recurrent episodic hospitalizations in the setting of multiple comorbidities. Daughter and patient's questions answered to satisfaction. Procedure and recovery described. Patient and daughter verbalized understanding. PAST MEDICAL HISTORY: Past Medical History: Diagnosis Date AAA (abdominal aortic aneurysm) (HCC) Acute combined systolic and diastolic CHF, NYHA class 1 ([facility]) 10/03/2023 Aortic stenosis, mild Atrial fibrillation (HCC) CAD (coronary artery disease) Chronic respiratory failure (HCC) Graves disease Hypertrophic cardiomyopathy (HCC) Mixed hyperlipidemia Moderate mitral stenosis Nonrheumatic mitral valve stenosis Primary hypertension Pulmonary hypertension (HCC) Second hand smoke exposure Severe tricuspid regurgitation Supplemental oxygen dependent PAST SURGICAL HISTORY: Past Surgical History: Procedure Laterality Date APPENDECTOMY W/OTHER PROCEDURE CORONARY ANGIOGRAPHY W/LEFT HEART CATH Right 10/04/2021 CORONARY ANGIOGRAPHY W/LEFT HEART CATH performed by Rodri Jacobs MD at CARDIAC LABS [facility] LAP;W/HYSTERECTOMY [place] CHOLECYSTECTOMY FAMILY HISTORY: Family History Problem Relation Age of Onset Diabetes Mother Stroke Mother Heart Disorder Father 63 [place] Hypertension Brother Heart Disorder Aunt (Unspecified) [place] Heart Disorder Uncle (Unspecified) [place] Hypertension Son Hypertension Daughter SOCIAL HISTORY: Social History Tobacco Use Smoking status: Never Passive exposure: Past Smokeless tobacco: Never Tobacco comments: Parents smoked in home growing up and then work place up until 1967 Vaping Use Vaping Use: Never used Substance Use Topics Alcohol use: Not Currently Drug use: Never ALLERGIES: Amoxicillin, Gatifloxacin, and Latex ROS: Constitutional: (-) fever chills sweats or weight loss Eyes: (-) negative, no amaurosis fugax, pain, blurred vision, or redness ENT: (-) negative: no headaches, vertigo, hearing loss, sinus, ear, or throat problems Cardiovascular: (+) exertional dyspnea and (-) otherwise negative Pulmonary: (+) dyspnea, (+) dyspnea with exertion, and (-) otherwise negative Abdominal/GI: (-) negative: no pain, heartburn, dysphagia, bleeding, change in bowel habits, nauseaor vomiting Musculoskeletal: (-) negative: no pain Skin: (-) negative: no rash or new or changing moles Neurology: (-) negative: no focal neurologic defect Psychiatry: (-) negative: no depression or anxiety PHYSICAL EXAMINATION: Most Recent Vital Signs: BP: 105 mmHg/71 mmHg (11/27/23799) Pulse: 54 (11/27/23799) Temp: 36.11 C (11/27/23799) Temp Summary: Temp Min: 35.3 C (95.5 F) Max: 36.4 C (97.5 F) SpO2: 95 % (11/27/23799) O2 flow rate: 2 L/MIN (04/29/24 0800) Supplemental O2 Delivery: Nasal Cannula (11/27/23 0800) Vital Signs Last 24 Hours: Systolic BP: Most Recent Systolic BP Av.9 mmHg Min: 92 mmHg Max: 115 mmHg Temperature: Most Recent Temperature Av C Min: 35.28 C Max: 36.39 C Pulse: Pulse Av.8 Min: 51 Max: 56 Respirations: Resp Av.2 Min: 17 Max: 20 SpO2: SpO2 Av % Min: 95 % Max: 100 % Constitutional: no acute distress, (+) ill appearing, (+) chronically ill HEENT: normal: normocephalic, atraumatic; no masses, tenderness, or adenopathy Eyes: PERRLA, sclera and conjunctiva normal Neck: supple, normal range of motion CV: pulses normal (2+) bilaterally: radial, dorsalis pedis, no murmur, no gallop, no rub, intact distal pulses, (+) atrial fibrillation with slow ventricular response , (+) bradycardia Chest: normal respiratory effort, lungs clear to auscultation and percussion Abdomen: normal: soft, bowel sounds normal, no masses, tenderness or organomegaly Musculoskeletal: (-) negative Extremities: no clubbing, cyanosis, or edema, otherwise grossly normal, warm, and dry Skin: warm, dry, intact: Neuro: alert, oriented to person, place, and time, normal mental status exam Psych: normal mood and affect, nonsuicidal, judgement normal, memory normal LABS: Labs reviewed as indicated below: Latest Reference Range & Units 11/27/23 04:27 Sodium 135 - 146 mmol/L 131 (L) Potassium 3.5 - 5.1 mmol/L 4.3 Chloride 98 - 107 mmol/L 95 (L) CO2 22 - 32 mmol/L 23 BUN 6 - 20 mg/dL 59 (H) Creatinine 0.5 - 1.0 mg/dL 1.7 (H) Estimated Glomerular Filtration Rate >=60 mL/min 30 (L) Anion Gap 7 - 15 mmol/L 13 Glucose 70 - 120 mg/dL 83 Calcium 8.4 - 10.2 mg/dL 9.3 Magnesium 1.5 - 2.6 mg/dL 2.4 Phosphorus 2.5 - 4.8 mg/dL 3.7 WBC 4.00 - 10.80 K/uL 9.21 RBC 3.85 - 5.15 M/uL 3.57 HGB 12.0 - 15.3 g/dL 9.6 (L) HCT 36.0 - 45.2 % 32.2 (L) MCV 81.5 - 97.5 fL 90.2 MCH 27.0 - 34.0 pg 26.9 MCHC 32.0 - 36.0 g/dL 29.8 RDW 11.5 - 15.5 % 20.9 PLT 140 - 400 K/uL 254 MPV 6.6 - 11.1 fL 9.5 (L): Data is abnormally low (H): Data is abnormally high IMPRESSION and PLAN: Principal Problem: 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) (POA: Yes) Active Problems: Cardiac outflow obstruction (POA: Yes) Pulmonary HTN (HCC) (POA: Yes) ILD (interstitial lung disease) (HCC) (POA: Yes) LVH (left ventricular hypertrophy) (POA: Unknown) Moderate mitral stenosis (POA: Yes) Moderate tricuspid regurgitation (POA: Yes) Moderate mitral regurgitation (POA: Yes) POA = Present On Admission -Patient hospitalized for acute on chronic respiratory failure -Currently euvolemic -Telemetry shows atrial fibrillation with slow ventricular response and multiple two second pauses -Patient unable to tolerate AV lenore blockade due to low heart rate and pauses. -Patient will benefit from single chamber PPM to allow for AV lenore blockade -Discussed with patient and daughter, Bre. Patient and daughter agree that patient will benefit from PPM however, decline ICD at this time -Discussed with Dr. Duncan. -Likely PPM today. I saw and evaluated the patient 11/27/2023 . I have reviewed the trainee note and agree. Patient has HCM and AF with slow heart rate . She in unable to tolerate BB . Extensive discussion with the patient and family regarding risks, benefits and alternatives of ICD vs PPM . She does not want ICD . We will proceed with PPM documented in this encounter Miscellaneous Notes * Ancillary Progress Note - Lima Vigil COTA/Manuel - 11/29/2023 12:19 PM EDT PROGRESS NOTE - Occupational Therapy [address] [address] Name: Maria Luisa Recinos Location: [facility] H852/A Date: 11/29/2023 Time: 1:25 PM Maria Luisa Recinos is a 88 year old female. Patient Status: Inpatient Insurance: Payor: MEDICARE Plan: MEDICARE A AND B Product Type: *No Product type* Payor: [facility] ([place]) Plan: [employer] MEDICARE SUPPLEMENT Product Type: *No Product type* Patient Seen: at bedside, nursing cleared patient for therapy Patient Identified By: Name, ID Band and Date Diagnosis: acute on chronic combined systolic and diastonlic heart failure due to valvular disease (11/29/23 103) Status of treatment: Treatment completed (11/29/231029) Orders: OT evaluation and treatment (11/29/231029) Weight Bearing Status: Weight bearing as tolerated (11/29/231029) Precautions: Alarms;Falls;Safety (pacemaker) (11/29/231029) Total Treatment Time: 30 (11/29/231029) Subjective: patient agreeable to OT session Pain: No complaints of pain Observations Consciousness: Alert (11/29/231029) Orientation: Oriented times 4 (11/29/231029) Psychosocial: Patient can communicate basic needs (11/29/231029) Sitting posture: Forward head;Rounded shoulders (11/29/23 103) Standing posture: Forward head;Rounded shoulders (11/29/231029) Safety awareness: The Patient verbalizes insight of current deficits. (11/29/231029) Other Findings Endurance: Sitting tolerance;Fair;Standing tolerance;Functional activity;Poor (11/27/23 1320) Light touch sensation: LUE;RUE;Intact (11/27/23 1320) Coordination: LUE;RUE;Gross motor;Impaired;Fine motor;Intact (11/27/23 132) Current Functional Status: Activities of Daily Living: Self Care Grooming: Supervision (Please comment) (11/29/23 103) Toileting: Maximal Assistance (11/29/231029) Dressing Upper Body: Moderate Assistance (11/29/231029) Lower Body: Maximal Assistance (11/29/231029) Functional Ambulation Assistive Device: Rolling walker (11/29/231029) Distance in feet:: 4 (11/29/231029) Level of Assistance: Contact Guard (11/29/231029) OT Transfers Sit-Stand: Contact Guard (11/29/231029) Stand-Sit: Contact Guard (11/29/231029) Bed-Chair: Contact Guard (11/29/231029) Toilet: Contact Guard (11/29/231029) Balance Sit (Static): Fair (11/29/231029) Sit (Dynamic): Fair (11/29/231029) Stand (Static): Fair (11/29/231029) Stand (Dynamic): (fair-) (11/29/231029) Patient Education Education Topic: Role of OT;Plan of care goals (11/29/231029) Review of Precautions: Safety;Fall (11/29/231029) Method of Education: Verbalized to patient (11/29/231029) Education Provided to: Patient (11/29/231029) Response to Education: Receptive and agreeable to education (11/29/231029) Barriers to learning: Medical status (11/29/231029) Preferred learning method: Combination (11/29/231029) Alarm Status Patient positioned in: Chair (11/29/231029) With: Pressure pad alarm intact and functioning and call leon in reach (cord plug into wall) (11/29/231029) Treatment Provided: Self Intermediate Management Trainin minutes Deficits requiring O.T. treatment needs: ADL/self- care;Balance;Endurance;Functional mobility;Safety;Upper extremity strength;Weakness;Upper extremity range of motion (11/27/23 1320) Assessment: patient out of bed in recliner upon entering room. Reviewed pacemaker precautions. Contact guard assistance for functional transfer from recliner and toilet. Contact guard assistance for functional mobility from recliner to bedside commode to recliner with rolling walker. Moderate assistance to doff gown and to fatou stock puller shirt and button up shirt. Patient with decrease ROM B/L shoulders. Max assistance to doff pull off and to fatou pull up, pants, socks, and shoes. Patient required therapeutic rest breaks secondary to increase SOB. Please consider post-acute care services which may include home health, halfway, outpatient therapy or inpatient rehabilitation. The level of care will be determined in collaboration with patient, family/caregiver and care team members. Would benefit from continued OT to maximize functional capabilities. Plan: Continue to follow as per plan. Anticipated Frequency (on eval): 1 to 3 times per week (11/29/23 103) Equipment Equipment used in Therapy: Bedside commode;Rolling walker (11/29/23 103) AM-PAC Help From Another Person Eating Meals: None (11/29/23 103) Help From Another Person Taking Care of Personal Grooming: A little (11/29/23 103) Help From Another Person To Put On/Take Off Upper Body Clothing: A lot (11/29/23 103) Help From Another Person To Put On/Take Off Lower Body Clothing: A lot (11/29/23 103) Help From Another Person Toileting: Total (11/29/23 103) Help From Another Person Bathing: A lot (11/27/23 1320) OT AM-PAC Score: 15 (11/27/23 1320) OT AM-PAC t-Scale Score: 34.69 (11/27/23 1320) HLM (Highest Level of Mobility) Goal: Level 5 standing (1 or more minutes) (11/29/23 0700) A portion of this AM-PAC assessment not scored based on functional assessment ; rather clinical decision making utilized based on current findings and/or prior level of function. Please refer to future AM-PAC calculations of functional ability as they become available. * Ancillary Progress Note - Yahaira Borges MSW - 11/29/2023 9:56 AM EDT CARE MANAGEMENT - ADULT DISCHARGE NOTE [facility] [address] Name: Maria Luisa Recinos Location: [facility] H852/A Date: 11/29/2023 Time: 9:56 AM The following coordination of care and discharge plan has been coordinated with the care team, patient, family and/or caregiver according to the patients needs and preferences. Discharge Discharge Second Notice Important Message from Medicare delivered: Not Applicable (going to IRF) (11/29/23955) Was Caregiver/Family/Facility contacted regarding discharge: Yes (11/29/23955) Discharge Transportation: Family/Friends drive (11/29/23955) Date of scheduled discharge transportation: 11/29/23 (11/29/23955) Time of scheduled discharge transportation: 1400 (11/29/23955) Final Discharge Plan (Complete only at time of Discharge): IP Rehab (11/29/23955) Destination - Admitted Since 11/23/2023 Service Provider Selected Services Address Phone Fax Patient Preferred Last Updated [facility] [address] [place] [phone] -- Yahaira Borges MSW 2023 1308 Narrative: Per service, Pt ready for DC today (11/28). Pt going to [facility] [place]. Family is providing transportation this afternoon. No other skilled needs identified at this time. Please contact CM with any changes to DC plans. * Ancillary Progress Note - Page Clemons OTA - 2023 1:27 PM EDT PROGRESS NOTE - Occupational Therapy [facility]-[address] [address] Name: Maria Luisa Recinos Location: [facility] H852/A Date: 2023 Time: 1:27 PM Attempted to see patient for occupational therapy services this afternoon, however patient having echo done at this time. Will continue to follow for OT services as able and appropriate. * Ancillary Progress Note - Yahaira Borges MSW - 2023 1:05 PM EDT CARE MANAGEMENT - ADULT TRANSITION NOTE [address] [address] Name: Maria Luisa Recinos Location: [facility] H852/A Date: 2023 Time: 1:06 PM Risk Stratification Risk Stratification Psycho Social / Medical Concerns Identified: Adjustment to illness/injury (11/23/23 0918) Readmission Risk Score: 56.79 (11/28/23 1201) AM-PAC Score With Stairs : 17 (11/28/23 0900) Caregiver Information Patient Contacts Name Relation Home Work Mobile Betty Price Adult Child [phone] Juan Pablo Recinos Adult Child [phone] Transition of Care Checklist Narrative: Pt was discussed during IDT this AM. Anticipate Pt to be DC ready tomorrow. Pt had PPM placed yesterday, service to monitor and adjust meds. SW called and spoke to Pt's daughter, Betty, stated they plan to transport Pt to [facility] tomorrow. JEFERSON updated Nalini at [facility]. SW will continue to follow for evolving needs and support. Anticipated Transportation at Discharge: family Patient/Family Expectations: rehab Transition Planning Additional Considerations: N/A Care Management will continue to monitor and assist with discharge planning needs * Communication - Sai Romano DO - 2023 12:58 PM EDT HEART RHYTHM DEVICE INTERROGATION - Single chamber PPM TYPE OF VISIT: Hospital admission INDICATION: HCM with LVOT obstruction, AF with bradycardia and ventricular pauses IMPLANTING PHYSICIAN: Sol Duncan MD IMPLANT/DEVICE HISTORY: JORGITO [id number] 11/27/23 CURRENT SYSTEM: [employer] Model No. Serial No. Pulse Generator JORGITO [id number] Right Ventricular Lead JORGITO [id number] ALERTS/ADVISORIES: none EPISODES None PATIENT EVALUATION: Symptoms: none Pocket evaluation: healing Intrinsic rhythm: Afib SVR, ventricular rate of 40 Oral anticoagulant therapy: Eliquis (to be resumed 11/29/23) DEVICE EVALUATION: Atrial R V LV Pacing threshold: N/a 0.5 V N/a Sensing (mV): N/a 11.5 N/a Pacing impedance (ohms): N/a 703 N/a Percentage paced: N/a 99.7 N/a FINAL PACEMAKER PARAMETERS: Mode: VVIR Rate: 60 bpm Paced AV Delay: N/a Atrial RV Amplitude (V): N/a 5.00 Pulse width (mS): N/a 0.50 Mode switch: n/a Rate: n/a PARAMETER CHANGES: Lower rate reduced from 70 bpm to 60 bpm IMPRESSION: Normal device function Afib SVR in 40s Lower rate changed to 60 bpm without competing wrangell conduction PLAN: Continue with rate at 60 bpm as long as intrinsic rate remains bradyardic, will continue to uptitrate metoprolol Sai Romano DO Cardiovascular Disease Fellow, PGY5 [facility] * Ancillary Progress Note - Chanel Hutchins, IN SERVICE EDUCATION TEACHER - 2023 11:36 AM EDT PROGRESS NOTE - Physical Therapy [address] [address] Name: Maria Luisa Recinos Location: [facility] H852/A Date: 2023 Time: 11:36 AM Maria Luisa Recinos is a/an 87 year old female. Patient Status: Inpatient Insurance: Payor: MEDICARE Plan: MEDICARE A AND B Product Type: *No Product type* Payor: [facility] ([facility]) Plan: [employer] MEDICARE SUPPLEMENT Product Type: *No Product type* Patient Identified By: Name, ID Band and Date Diagnosis: respiratory failure (11/28/231135) Status of treatment: Treatment completed (11/28/231135) Orders: PT evaluation and treatment (11/28/231135) Weight Bearing Status: Weight bearing as tolerated (11/28/231135) Precautions: Falls;Oxygen;Safety (11/28/231135) Total Treatment Time--free text: 23 (11/28/231135) Treatment Provided: Therapeutic Activities 13 minutes: transfer training Short distance mobility Therapeutic Exercises: 10 minutes Pain: No complaints of pain Transfers Sit-Stand: Contact Guard (1st stand, minimal assist 2nd stand) (11/28/231135) Stand-Sit: Contact Guard (for 2 transfers) (11/28/231135) Ambulation: Distance ambulated (feet): 15'x2 Assistive Device: Rolling walker Assist: Contact Guard Noted gait deviations: slow gait speed (11/28/231135) Balance Sit (Static): Fair (11/28/231135) Sit (Dynamic): Fair (11/28/231135) Stand (Static): (fair -) (11/28/231135) Stand (Dynamic): (fair -) (11/28/231135) Extremity Exercise Sitting: Hip;Knee (11/28/231135) Hip : Bilateral LE;Flexion;2 sets of 10 (11/28/231135) Knee : Bilateral LE;Extension;2 sets of 10 (11/28/231135) Topic of Education: Safety with mobility, Goals/plan of care, Use of assistive device, and Fall prevention Method of Education: Verbal discussion and explanation provided to pt: Alarm Status Patient positioned in: Chair (11/28/231135) With: Pressure pad alarm intact and functioning and call leon in reach (11/28/231135) Following session patient seated OOB in chair with chair alarm activated and cord plugged into callbell system. Patient Education Review of Precautions: Safety;Fall (11/28/231135) Safety Awareness: Patient verbalizes insight of current deficits;Patient demonstrates carryover of insight during functional tasks;Patient can communicate basic needs;Needs cueing supervision (11/28/231135) Assessment: Upon arrival pt seated in recliner. She required contact guard assist for the 1st standand minimal assist for the 2nd stands with cues for hand placement. She ambulated 15'x2 using a rolling walker requiring contact guard assist. Pt presents with a slow gait speed with tentative movements. Pt reports she feels most limited by decreased strength/endurance. Seated exercises were done to increase LE strength. Please consider post-acute care services which may include home health, halfway, outpatient therapy or inpatient rehabilitation. The level of care will be determined incollaboration with patient, family/caregiver and care team members. Deficits requiring P.T. treatment needs: Safety;Mobility;Balance;Endurance;Weakness;Lower extremitystrength (11/28/23 1136) Equipment needs: Rolling walker (11/28/23 1136) Plan: Continue with current treatment plan established on evaluation. AM PAC Score with Stairs: 16 A portion of this AM-PAC assessment not scored based on functional assessment ; rather clinical decision making utilized based on current findings and/or prior level of function. Please refer to future AM-PAC calculations of functional ability as they become available. * Diagnostic Clarification - De Castellon DO - 2023 8:19 AM EDT - Heart failure is not present- symptomatic bradycardia and LVOT obstruction. * Progress Notes - Non-Billable - De Martinez DO - 11/27/2023 5:40 PM EDT Post-OP check Subjective: Patient doing well after pacemaker placement. Patient sleepy after anesthesia administration. Objective: BP 111/84 | Pulse 70 | Temp 36.1 C (97 F) (Oral) | Resp 16 | Ht 1.549 m (5' 1") | Wt 79.2 kg (174 lb 11.2 oz) | SpO2 100% | BMI 33.01 kg/m | BSA 1.85 m Physical examination: General: sleeping when seen, wakes up when name called CVS: RRR, normal S1 and S2, no murmurs, rubs, or gallops Respiratory: Normal effort Abdominal: Soft, nondistended SITE: pacemaker site is clean, under bandage no erythema Extremities: No edema Skin: Warm, dry, intact OR: Implantation of a single chamber pacemaker Fluoroscopy of the leads Assessment and Plan: -continue lopressor post procedure, please do not hold -Will reassess when she wakes up *Night Team Addendum* Patient seen a few hours after allowing procedure sedation to wear off. Very awake and alert now. Feels well without any complaints. Plan per day progress note. * Ancillary Progress Note - Yahaira Borges MSW - 11/27/2023 12:26 PM EDT CARE MANAGEMENT - ADULT TRANSITION NOTE [facility] [address] Name: Maria Luisa Recinos Location: [facility] H852/A Date: 11/27/2023 Time: 12:26 PM Risk Stratification Risk Stratification Psycho Social / Medical Concerns Identified: Adjustment to illness/injury (11/23/23 0918) Readmission Risk Score: 54.19 (11/27/23 1201) AM-PAC Score With Stairs : 15 (11/27/23 0800) Caregiver Information Patient Contacts Name Relation Home Work Mobile DeeBetty Brissa Adult Child [phone] Juan Pablo Recinos Adult Child [phone] Transition of Care Checklist Narrative: Pt was discussed with service this AM. Pt is not medically ready for DC at this time. Ptto go for pacer today. SW spoke to Nalini at [facility] to update, confirmed that they have offereda bed for Pt and can accept when medically ready. SW will continue to follow for evolving needs andsupport. Anticipated Transportation at Discharge: family vs Patient/Family Expectations: rehab Transition Planning Additional Considerations: N/A Care Management will continue to monitor and assist with discharge planning needs * Care Plan - Angeline Coker RN - 11/27/2023 12:41 AM EDT Clinical Goal(s): patient will be hemodynamically stable this shift (11/26/23 0700) Possible barriers to meeting goal(s)/advancing plan of care: disease progression Stability of the patient: Moderately unstable - medium risk of patient condition declining or worsening Summary regarding today's goal(s): Met: pt remained stable Recommendations: continue to monitor patient * Ancillary Progress Note - Amanda Bose OT - 11/26/2023 1:46 PM EDT Maria Luisa Recinos [id number] [facility] H852/A Attempted to complete OT evaluation. Pt declined at this time. Will complete as able. * Ancillary Progress Note - Linda Hughes, PT - 11/26/2023 12:41 PM EDT Maria Luisa Recinos [id number] [facility] H852/A 11/26/2023 12:52 PM 87 year old PT Attempted to see patient for PT evaluation. Patient sitting in recliner chair eating lunch and declining PT evaluation at this time. Patient states, "Not today". Will complete evaluation as able. * Care Plan - Angeline Coker RN - 11/26/2023 2:27 AM EDT Clinical Goal(s): patient will have no falls this shift (11/25/23 0700) Possible barriers to meeting goal(s)/advancing plan of care: weakness Stability of the patient: Moderately stable - low risk of patient condition declining or worsening Summary regarding today's goal(s): Met: no safety events Recommendations: continue to keep safety measures in place * Ancillary Progress Note - Yahaira Borges MSW - 11/24/2023 11:11 AM EDT CARE MANAGEMENT - ADULT TRANSITION NOTE [address] [address] Name: Maria Luisa Recinos Location: [address] Date: 11/24/2023 Time: 11:11 AM Risk Stratification Risk Stratification Psycho Social / Medical Concerns Identified: Adjustment to illness/injury (11/23/23 0918) Readmission Risk Score: 57.32 (11/24/23 0800) AM-PAC Score With Stairs : 15 (11/23/23 0319) Caregiver Information Patient Contacts Name Relation Home Work Mobile Betty Price Adult Child [phone] Juan Pablo Recinos Adult Child [phone] Transition of Care Checklist Narrative: Pt was discussed with service this AM. Pt is not medically ready for DC at this time. SWreceived a call from Pt's daughter, Betty, stating would like a referral to [facility]. SW explained difference between IRF and SNF, family still wanting referral to [facility]. SW opened in [place] and followed up with Nalini at [facility]. Per service, Pt to remain at [facility] through weekend. SW to follow up with Nalini next week. Pt's family agreeable for Pt to return to [facility] if [facility] unable to accept. SW will continue to follow for evolving needs and support. Anticipated Transportation at Discharge: family vs medical Patient/Family Expectations: rehab Transition Planning Additional Considerations: N/A Care Management will continue to monitor and assist with discharge planning needs * Ancillary Progress Note - Yahaira Borges MSW - 11/23/2023 9:20 AM EDT CARE MANAGEMENT - ADULT INITIAL SCREENING [address] [address] Name: Maria Luisa Recinos Location: [facility] H852/A Date: 11/23/2023 Time: 9:20 AM Discussed patient with the interdisciplinary care team. This Shot Lighter performed a chart review and spoke to Verona @ [facility] to complete admission screen and assessed needs for transition planning. The rental boats caretaker role and services were explained and emotional support was provided. Chief Complaint: No chief complaint on file. Prior Living Arrangements What was your living situation prior to admission/observation?: At a Long Term (11/23/23917) Living Quarters: Senior Care Facility (11/23/23917) Number of steps to enter living quarters:: 0 (11/23/23917) Do you have serious difficulty walking or climbing stairs? (5 years old or older): No (11/23/23318) History of falling: No (11/23/23822) Prior Level of Functioning Describe the patient's ability prior to admission/observation to perform ADLs: Requires assistance (11/23/23917) Requires assistance with: Dressing;Toileting;Bathing;Grooming (11/23/23917) Describe the patient's mobility status prior to admission: Patient requires assistance with ambulation (11/23/23917) Patient uses assistive device: Yes (11/23/23917) If yes, choose:: Walker (11/23/23917) Caregiver Information Patient Contacts Name Relation Home Work Mobile Betty Price Adult Child [phone] Juan Pablo Recinos Adult Child [phone] Risk Stratification/Psychosocial/Care Gaps Risk Stratification Psycho Social / Medical Concerns Identified: Adjustment to illness/injury (11/23/23917) Readmission Risk Score: 53.9 (11/23/23 0800) AM-PAC Score With Stairs : 15 (11/23/23318) Prior to Admission Services Services Prior to Admission IN SERVICE 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 TEACHER Services (Services received within the last 30 days with exception, Psych within last two years): Senior Care (11/23/23917) List All Provider/Service Name: Tay Avery (11/23/23918) Agency contacted: Yes (11/23/23918) Spoke with - Comment: Verona (11/23/23918) Senior Care Facility Bed Hold Confirmed: Yes (11/23/23918) IN SERVICE EDUCATION TEACHER Transportation (Services received within the last 30 days): Medical Transportation;Family/Friends Personal Vehicle (11/23/23918) Outpatient Shot Lighter: Patient Care Team: Dayna Salinas, RN as Final Canoe Inspector (Registered Nurse) Patient/Family Expectations: Pt recently at [facility] and DC'd to [facility]. SW reached out to Verona at [facility], stated Pt is a bed hold and able to return at [place]. SW will continue to follow for evolving needs and support. For further screening information, please refer to the Care Management flow document. * Ancillary Progress Note - Daphney Alcaraz, FREIGHT SOLICITOR - 11/23/2023 5:20 AM EDT PATIENT DRIVEN PROTOCOL - Respiratory Care Services [facility] [id number] Name: Maria Luisa Recinos Location: [facility] H852/A Date: 11/23/2023 Time: 5:20 AM Patient Driven Protocol Summary: Initial evaluation performed. This Treatment Plan and medications will be reviewed by the Primary Care Team for any contraindications. Respiratory Care Treatment Plan Aerosol Therapy Treatment:: Inhaler(s) QDAY with Breo Ellipta (Fluticasone furoate 100 mcg and Vilanterol 25 mcg inhalation powder) / 1 inhalation. to suppress bronchial inflammation and edema by the use of systemic steroid sparing therapy. Additional Aerosolized Treatments: Hand Held Nebulizer Tx PRN with Duoneb: Unit Dose. to reduce work of breathing and improve pulmonary gas exchange. . Pulmonary Volume Expansion Therapy: Incentive Spirometry PRN to prevent or treat alveolar consolidation and atelectasis. . The patient will be re-evaluated: No re-evaluation needed. Indications for treatment met. The Triage Level is: (Assessment Score = 6 -10) Level 4. Triage Level Definitions: Level 1 Severe Respiratory/Airway Compromise Level 2 Moderate Respiratory/Airway Compromise or high risk for pulmonary complications Level 3 Mild Respiratory/Airway Compromise or moderate risk for pulmonary complications Level 4 Episodic Respiratory/Airway Compromise or low risk for pulmonary complications Level 5 No Respiratory/Airway Compromise Triage 1 Triage 2 Triage 3 Triage 4 Triage 5 greater than 20 16 - 20 11 - 15 6 - 10 0 - 5 Medical Record Assessment Clinical Findings Pulmonary Status: 3 - Pulm Impairment (acute or chronic) w/o exacerbation, or 1 - 2 rib fractures Surgical Status: 0 - No Surgical History Chest X-Ray: 1 - CXR Pending Assessment Score: 4 Patient Assessment Clinical Findings Respiratory Pattern: 0 - RR 12 - 20; Patient only gets breathless with strenuous exercise. Breath Sounds: 2 - Diminished bilaterally Cough Effectiveness: 0 - Strong non-productive Sputum Production: 0 - No sputum production Level of Activity: 1 - Ambulatory with assist O2 needed to keep SpO2 greater than or equal to 92%: 0 - Room Air Assessment Score: 3 Total Assessment Score: 7 Breath Sounds: Inspiratory and expiratory clear and diminished bilaterally.. Cough and Sputum: An effective cough produced no sputum... CXR: pending. Vital Signs: Resp: 18 (11/23/23 030) Pulse: 62 (11/23/23318) Temp: 36.6 C (97.9 F) (11/23/23299) BP: 93/52 (11/23/23318) SpO2: 94 % (11/23/23318) PFT: Minimal Predicted IC: 0.711 L. Inspiratory capacity: 2.0L. Primary Service: Cardiology Med B. 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 Prescriptions/Home Medications/Durable Medical Equipment: Breo Qday, DuoNeb PRN. documented in this encounter Plan of Treatment Upcoming Encounters Date Type Department Care Team (Late st Contact Info) Description 11/30/2023 5:40 AM EDT Laboratory Lab Mobile Phlebotomy MV [address] [facility], [place] [address] [address] [address] 12/05/2023 11:00 AM EDT Cardiac Studies Cardiology, [address] [place] [address] [place], [facility] [address] [place] [address] 12/08/2023 9:00 AM EDT Office Visit Nephrology, Jonas Seth [address] [place] [address] Jef Kaminski [facility] [place] [address] 12/13/2023 10:00 AM EDT Office Visit Gastroenterology, [facility] [address] [place] [address] Trenton Cameron CRNP [address] [place] [address] 12/18/2023 8:30 AM EDT Telemedicine Cardiology, [facility] [address] [facility] [place] [address] Jennifer Queen PA-C 132 [place] [address] 12/21/2023 10:30 AM EDT Telemedicine Pulmonary Medicine [facility], [place] [address] [place] [address] [address] [place], [place] [id number] Yocasta Proctor CRNP [address] [place] [address] 01/31/2024 1:00 PM EDT PulmDiagnostic Pulmonary Function Lab, [place] [address] [place] [address] Gjsh, Pulm Func Tech [address] [place] [address] 02/20/2024 2:20 PM EDT Office Visit Nephrology, Jonas [place] [address] [place] [address] Jef Kaminski MD [address] [place] [address] Health Maintenance Due Date Last Done Comments Pneumococcal Vaccine: 65+ Years (1 of 2 - PCV) 11/29/1941 Depression Screening 1947 Albumin/Creatinine Ratio 11/29/1955 DTaP,Tdap,and Td Vaccines (1 - Tdap) 1954 Zoster Vaccines (2 of 3) 08/23/2012 06/28/2012 COVID-19 Vaccine (5 - season) 2023 08/05/2022, 05/26/2021, 09/26/2020, Additional history exists Influenza Vaccine (FLU shot) (Season Ended) 2024 CKD HGB USE SMARTSET 57608 11/28/202411/28, 2023, 11/27/2023, Additional history exists CKD PHOS USE SMARTSET 60503 2024 05/0 07/2023, 2023, 11/27/2023, Additional history [...] this encounter Medical Devices Implanted Type Area Wallpaper Inspector And Shipper Device Identifier Shelf Expiration Date Model / Serial / Lot Lead Novus Bipolar 58cm - [id number] Implanted:Qty: 1 on 11/27/2023 by Sol Duncan MD at CARDIAC LABS [facility] [employer] : CRM [id number] 06/07/2024 5076- 58 / [id number] / [id number] Pacemaker [place] S Sr Mri Wrls - [id number] Implanted:Qty: 1 on 11/27/2023 by Sol Duncan MD at CARDIAC LABS [facility] [employer] [id number] 03/13/2025 W3S R01 / [id number] / [id number] documented as of this encounter Procedures Procedure Name Priority Date/Time Associated Diagnosis Comments BASIC METABOLIC PANEL Routine 11/29/2023 7:00 AM EDT PHOSPHORUS Routine 11/29/2023 7:00 AM EDT CBC Routine 11/29/2023 7:00 AM EDT MAGNESIUM STAT 11/29/2023 7:00 AM EDT ECHO, TTE, LIMITED STAT 2023 2: 05 PM EDT Valvular heart disease XR CHEST 2 VIEWS Routine 2023 8:55 AM EDT BASIC METABOLIC PANEL Routine 2023 4:18 AM EDT PHOSPHORUS Routine 2023 4:18 AM EDT CBC Routine 2023 4:18 AM EDT MAGNESIUM STAT 2023 4:18 AM EDT HC ECG TRACING ONLY Routine 11/27/2023 6 :04 PM EDT Bradycardia Insert/Replace Pacemaker, Ventricular 11/27/2023 2:58 PM EDT Bradycardia BASIC METABOLIC PANEL Routine 11/27/2023 4:27 AM EDT PHOSPHORUS Routine 11/27/2023 4:27 AM EDT CBC Routine 11/27/2023 4:27 AM EDT MAGNESIUM STAT 11/27/2023 4:27 AM EDT BASIC METABOLIC PANEL Routine 11/26/2023 5:02 AM EDT PHOSPHORUS Routine 11/26/2023 5:02 AM EDT CBC Routine 11/26/2023 5:02 AM EDT MAGNESIUM STAT 11/26/2023 5:02 AM EDT POTASSIUM, WHOLE BLOOD STAT 11/25/2023 6:37 AM EDT BASIC METABOLIC PANEL Routine 11/25/2023 5:16 AM EDT PHOSPHORUS Routine 11/25/2023 5:16 AM EDT CBC Routine 11/25/2023 5:16 AM EDT MAGNESIUM STAT 11/25/2023 5:16 AM EDT BASIC METABOLIC PANEL Routine 11/24/2023 6:42 AM EDT PHOSPHORUS Routine 11/24/2023 6:42 AM EDT CBC Routine 11/24/2023 6:42 AM EDT MAGNESIUM STAT 11/24/2023 6:42 AM EDT BASIC METABOLIC PANEL Routine 11/23/2023 1:02 PM EDT PHOSPHORUS Routine 11/23/2023 1:02 PM EDT MAGNESIUM STAT 11/23/2023 1:02 PM EDT ECHO, COMPLETE (2D), TRANS-THORACIC Routine 11/23/2023 12:09 PM EDT HOCM (hypertrophic obstructive cardiomyopathy) (HCC) BASIC METABOLIC PANEL Routine 11/23/2023 5:30 AM EDT CBC Routine 11/23/2023 5:30 AM EDT MAGNESIUM Routine 11/23/2023 5:30 AM EDT XR CHEST 1 VIEW STAT 11/23/2023 4:57 AM EDT HC ECG TRACING ONLY Routine 11/23/2023 3 :55 AM EDT SOB (shortness of breath) documented in this encounter Results * PHOSPHORUS (11/29/2023 7:00 AM EDT) Phosphorus 2.8 2.5 - 4.8 mg/dL 11/29/2023 7:42 AM EDT LABORATORY [facility] Blood Venous blood specimen / Unknown Venipuncture / Unknown 11/29/2023 7:00 AM EDT 11/29/2023 7:13 AM EDT De Sanchez [facility] LAB BLOOD ORDERABLE S Performing Organization Address [facility]/ZIP Co de Phone Number LABORATORY [facility] [address] [place] [address] * MAGNESIUM (11/29/2023 7:00 AM EDT) Magnesium 2.4 1.5 - 2.6 mg/dL 11/29/2023 7:42 AM EDT LABORATORY G[facility] Blood Venous blood specimen / Unknown Venipuncture / Unknown 11/29/2023 7:00 AM EDT 11/29/2023 7:13 AM EDT De Sanchez [facility] LAB BLOOD ORDERABLE S Performing Organization Address [facility]/ZIP Co de Phone Number LABORATORY [facility] [address] [place] [address] * (ABNORMAL) CBC (11/29/2023 7:00 AM EDT) WBC 8.84 4.00 - 10.80 K/uL 11/29/2023 7:22 AM EDT LABORATORY [facility] RBC 3.97 3.85 - 5.15 M/uL 11/29/2023 7:22 AM EDT LABORATORY [facility] HGB 10.6(L) 12.0 - 15.3 g/dL 11/29/2023 7:22 AM EDT LABORATORY G[facility] HCT 36.0 36.0 - 45.2 % 11/29/2023 7:22 AM EDT LABORATORY [facility] MCV 90.7 81.5 - 97.5 fL 11/29/2023 7:22 AM EDT LABORATORY G[facility] MCH 26.7 27.0 - 34.0 pg 11/29/2023 7:22 AM EDT LABORATORY G[facility] MCHC 29.4 32.0 - 36.0 g/dL 11/29/2023 7:22 AM EDT LABORATORY [facility] RDW 21.0 11.5 - 15.5 % 11/29/2023 7:22 AM EDT LABORATORY [facility] PLT 254 140 - 400 K/uL 11/29/2023 7:22 AM EDT LABORATORY G[facility] MPV 9.7 6.6 - 11.1 fL 11/29/2023 7:22 AM EDT LABORATORY [facility] nRBCs 0 <=0 /100 WBCs 11/29/2023 7:22 AM EDT LABORATORY [facility] Blood Venous blood specimen / Unknown Venipuncture / Unknown 11/29/2023 7:00 AM EDT 11/29/2023 7:13 AM EDT De Martinez LAB BLOOD ORDERABLE S LABORATORY [facility] [address] [place] [address] * (ABNORMAL) BASIC METABOLIC PANEL (11/29/2023 7:00 AM EDT) BUN 48(H) 6 - 20 mg/dL 11/29/2023 7:42 AM EDT LABORATORY [facility] Creatinine 1.3(H) 0.5 - 1.0 mg/dL 11/29/2023 7:42 AM EDT LABORATORY [facility] Estimated Glomerular Filtration Rate 41(L) >=60 mL/min 11/29/2023 7:42 AM EDT LABORATORY [facility] Comment:eGFR is calculated b ased on the CKD-EPI 2020 equation Sodium 138 135 - 146 mmol/L 11/29/2023 7:42 AM EDT LABORATORY [facility] Potassium 4.5 3.5 - 5.1 mmol/L 11/29/2023 7:42 AM EDT LABORATORY [facility] Chloride 103 98 - 107 mmol/L 11/29/2023 7:42 AM EDT LABORATORY [facility] CO2 22 22 - 32 mmol/L 11/29/2023 7:42 AM EDT LABORATORY [facility] Anion Gap 13 7 - 15 mmol/L 11/29/2023 7:42 AM EDT LABORATORY G[facility] Glucose 110 70 - 120 mg/dL 11/29/2023 7:42 AM EDT LABORATORY G[facility] Calcium 9.2 8.4 - 10.2 mg/dL 11/29/2023 7:42 AM EDT LABORATORY [facility] Blood Venous blood specimen / Unknown Venipuncture / Unknown 11/29/2023 7:00 AM EDT 11/29/2023 7:13 AM EDT De Martinez DO LAB BLOOD ORDERABLE S LABORATORY [facility] [address] [place] [address] * ECHO, TTE, LIMITED (2023 2:05 PM EDT) LEFT VENTRICULAR EJECTION FRACTION 60 % [facility] CARDIOLOGY 2023 1:18 PM EDT Nishi Marie MD ECHOCARDIOLOGY [facility] CARDIOLOGY * XR CHEST 2 VIEWS (2023 8:55 AM EDT) Anatomical Region Laterality Modality Chest Computed Radiogr aphy 2023 9:38 AM EDT Impressions 2023 9:36 AM EDT IMPRESSION: Lingular greater than right lower lobe consolidations may represent atelectasis and/or pneumonia. Narrative 2023 9:36 AM EDT EXAM: XR CHEST 2 VIEWS - 2023 8:55 am HISTORY: S/P DC PPM TECHNIQUE: PA and lateral chest x-ray COMPARISON: Chest x-ray from 11/23/2023 FINDINGS: Catheters/tubes/devices/foreign bodies: Left chest pacemaker. Lingular greater than right middle lobe consolidations. No effusion. No evidence of pneumothorax. Cardiomediastinal silhouette is within normal limits. Osseous structures are unremarkable. Procedure Note Cheryl Chidi Juliana, DO - 2023 EXAM: XR CHEST 2 VIEWS - 2023 8:55 am HISTORY: S/P DC PPM TECHNIQUE: PA and lateral chest x-ray COMPARISON: Chest x-ray from 11/23/2023 FINDINGS: Catheters/tubes/devices/foreign bodies: Left chest pacemaker. Lingular greater than right middle lobe consolidations. No effusion. No evidence of pneumothorax. Cardiomediastinal silhouette is within normal limits. Osseous structures are unremarkable. IMPRESSION IMPRESSION: Lingular greater than right lower lobe consolidations may representatelectasis and/or pneumonia. Sol Duncan MD RADIOLOGY (RAD GENER AL) * PHOSPHORUS (2023 4:18 AM EDT) Phosphorus 3.4 2.5 - 4.8 mg/dL 2023 5:31 AM EDT LABORATORY [facility] Blood Venous blood specimen / Unknown Venipuncture / Unknown 2023 4:18 AM EDT 2023 4:46 AM EDT De Martinez DO LAB BLOOD ORDERABLE S Performing Organization Address [facility] Co de Phone Number LABORATORY [facility] [address] [place] [address] * MAGNESIUM (2023 4:18 AM EDT) Magnesium 2.4 1.5 - 2.6 mg/dL 2023 5:31 AM EDT LABORATORY [facility] Blood Venous blood specimen / Unknown Venipuncture / Unknown 2023 4:18 AM EDT 2023 4:46 AM EDT De Maritnez DO LAB BLOOD ORDERABLE S Performing Organization Address [facility] Co de Phone Number LABORATORY [facility] [address] [place] [address] * (ABNORMAL) CBC (2023 4:18 AM EDT) WBC 9.02 4.00 - 10.80 K/uL 2023 5:03 AM EDT LABORATORY [facility] RBC 3.67 3.85 - 5.15 M/uL 2023 5:03 AM EDT LABORATORY [facility] HGB 9.7(L) 12.0 - 15.3 g/dL 2023 5:03 AM EDT LABORATORY [facility] HCT 33.0(L) 36.0 - 45.2 % 2023 5:03 AM EDT LABORATORY [facility] MCV 89.9 81.5 - 97.5 fL 2023 5:03 AM EDT LABORATORY [facility] MCH 26.4 27.0 - 34.0 pg 2023 5:03 AM EDT LABORATORY [facility] MCHC 29.4 32.0 - 36.0 g/dL 2023 5:03 AM EDT LABORATORY G[facility] RDW 21.1 11.5 - 15.5 % 2023 5:03 AM EDT LABORATORY [facility] PLT 225 140 - 400 K/uL 2023 5:03 AM EDT LABORATORY [facility] MPV 9.6 6.6 - 11.1 fL 2023 5:03 AM EDT LABORATORY GM nRBCs 0 <=0 /100 WBCs 2023 5:03 AM EDT LABORATORY [facility] Blood Venous blood specimen / Unknown Venipuncture / Unknown 2023 4:18 AM EDT 2023 4:46 AM EDT De Martinez DO LAB BLOOD ORDERABLE S LABORATORY [facility] [address] [place] [address] * (ABNORMAL) BASIC METABOLIC PANEL (2023 4:18 AM EDT) BUN 55(H) 6 - 20 mg/dL 2023 5:31 AM EDT LABORATORY [facility] Creatinine 1.4(H) 0.5 - 1.0 mg/dL 2023 5:31 AM EDT LABORATORY [facility] Estimated Glomerular Filtration Rate 38(L) >=60 mL/min 2023 5:31 AM EDT LABORATORY G[facility] Comment:eGFR is calculated b ased on the CKD-EPI 2020 equation Sodium 132(L) 135 - 146 mmol/L 2023 5:31 AM EDT LABORATORY [facility] Potassium 3.8 3.5 - 5.1 mmol/L 2023 5:31 AM EDT LABORATORY [facility] Chloride 97(L) 98 - 107 mmol/L 2023 5:31 AM EDT LABORATORY [facility] CO2 20(L) 22 - 32 mmol/L 2023 5:31 AM EDT LABORATORY [facility] Anion Gap 15 7 - 15 mmol/L 2023 5:31 AM EDT LABORATORY [facility] Glucose 67(L) 70 - 120 mg/dL 2023 5:31 AM EDT LABORATORY C Calcium 9.0 8.4 - 10.2 mg/dL 2023 5:31 AM EDT LABORATORY C Blood Venous blood specimen / Unknown Venipuncture / Unknown 2023 4:18 AM EDT 2023 4:46 AM EDT De Daniel [facility] LAB BLOOD ORDERABLE S LABORATORY [facility] [address] [place] [address] * EKG (11/27/2023 6:04 PM EDT) 11/27/2023 6:04 PM EDT Narrative Procedure Note Rakesh Meek MD - 11/27/2023 6:04 PM EDT REASON FOR STUDY: post pacer CONCLUSIONS: Atrial rhythm undetermined Ventricular pacing Appropriate ventricular capture Abnormal ECG When compared with ECG of 23-Nov-2023 03:55, Prior atrial rhythm was atrial fibrillation Ventricular pacing now present Ventricular Rate: 70 Atrial Rate: 74 QRS Duration: 212 QT/QTc: 528/570 ms P-R-T [place]: 0 : -77 : 97 degrees Sol Duncan MD EKG [facility] CARDIOLOGY * PHOSPHORUS (11/27/2023 4:27 AM EDT) Phosphorus 3.7 2.5 - 4.8 mg/dL 11/27/2023 5:23 AM EDT LABORATORY [facility] Blood Venous blood specimen / Unknown Venipuncture / Unknown 11/27/2023 4:27 AM EDT 11/27/2023 4:31 AM EDT De Martinez LAB BLOOD ORDERABLE S Performing Organization Address [facility] Co de Phone Number LABORATORY [facility] [address] [place] [address] * MAGNESIUM (11/27/2023 4:27 AM EDT) Magnesium 2.4 1.5 - 2.6 mg/dL 11/27/2023 5:23 AM EDT LABORATORY [facility] Blood Venous blood specimen / Unknown Venipuncture / Unknown 11/27/2023 4:27 AM EDT 11/27/2023 4:31 AM EDT De Martinez LAB BLOOD ORDERABLE S Performing Organization Address [facility] de Phone Number LABORATORY [facility] [address] [place] [address] * (ABNORMAL) CBC (11/27/2023 4:27 AM EDT) WBC 9.21 4.00 - 10.80 K/uL 11/27/2023 4:44 AM EDT LABORATORY [facility] RBC 3.57 3.85 - 5.15 M/uL 11/27/2023 4:44 AM EDT LABORATORY [facility] HGB 9.6(L) 12.0 - 15.3 g/dL 11/27/2023 4:44 AM EDT LABORATORY [facility] HCT 32.2(L) 36.0 - 45.2 % 11/27/2023 4:44 AM EDT LABORATORY [facility] MCV 90.2 81.5 - 97.5 fL 11/27/2023 4:44 AM EDT LABORATORY [facility] MCH 26.9 27.0 - 34.0 pg 11/27/2023 4:44 AM EDT LABORATORY [facility] MCHC 29.8 32.0 - 36.0 g/dL 11/27/2023 4:44 AM EDT LABORATORY [facility] RDW 20.9 11.5 - 15.5 % 11/27/2023 4:44 AM EDT LABORATORY [facility] PLT 254 140 - 400 K/uL 11/27/2023 4:44 AM EDT LABORATORY [facility] MPV 9.5 6.6 - 11.1 fL 11/27/2023 4:44 AM EDT LABORATORY [facility] nRBCs 0 <=0 /100 WBCs 11/27/2023 4:44 AM EDT LABORATORY G[facility] Blood Venous blood specimen / Unknown Venipuncture / Unknown 11/27/2023 4:27 AM EDT 11/27/2023 4:31 AM EDT De Martinez DO LAB BLOOD ORDERABLE S LABORATORY GM [address] [place] [address] * (ABNORMAL) BASIC METABOLIC PANEL (11/27/2023 4:27 AM EDT) BUN 59(H) 6 - 20 mg/dL 11/27/2023 5:23 AM EDT LABORATORY [facility] Creatinine 1.7(H) 0.5 - 1.0 mg/dL 11/27/2023 5:23 AM EDT LABORATORY [facility] Estimated Glomerular Filtration Rate 30(L) >=60 mL/min 11/27/2023 5:23 AM EDT LABORATORY G[facility] Comment:eGFR is calculated b ased on the CKD-EPI 2020 equation Sodium 131(L) 135 - 146 mmol/L 11/27/2023 5:23 AM EDT LABORATORY [facility] Potassium 4.3 3.5 - 5.1 mmol/L 11/27/2023 5:23 AM EDT LABORATORY [facility] Chloride 95(L) 98 - 107 mmol/L 11/27/2023 5:23 AM EDT LABORATORY [facility] CO2 23 22 - 32 mmol/L 11/27/2023 5:23 AM EDT LABORATORY [facility] Anion Gap 13 7 - 15 mmol/L 11/27/2023 5:23 AM EDT LABORATORY [facility] Glucose 83 70 - 120 mg/dL 11/27/2023 5:23 AM EDT LABORATORY [facility] Calcium 9.3 8.4 - 10.2 mg/dL 11/27/2023 5:23 AM EDT LABORATORY [facility] Blood Venous blood specimen / Unknown Venipuncture / Unknown 11/27/2023 4:27 AM EDT 11/27/2023 4:31 AM EDT De Martinez DO LAB BLOOD ORDERABLE S Performing Organization Address [facility]/ZIP Co de Phone Number LABORATORY [facility] [address] [place] [address] * PHOSPHORUS (11/26/2023 5:02 AM EDT) Phosphorus 3.9 2.5 - 4.8 mg/dL 11/26/2023 5:54 AM EDT LABORATORY G[facility] Blood Venous blood specimen / Unknown Venipuncture / Unknown 11/26/2023 5:02 AM EDT 11/26/2023 5:21 AM EDT De Martinez DO LAB BLOOD ORDERABLE S Performing Organization Address [facility]/ZIP Co de Phone Number LABORATORY [facility] [address] [place] [address] * MAGNESIUM (11/26/2023 5:02 AM EDT) Magnesium 2.5 1.5 - 2.6 mg/dL 11/26/2023 5:54 AM EDT LABORATORY G[facility] Blood Venous blood specimen / Unknown Venipuncture / Unknown 11/26/2023 5:02 AM EDT 11/26/2023 5:21 AM EDT De Daniel Juan DO LAB BLOOD ORDERABLE S LABORATORY [facility] [address] [place] [address] * (ABNORMAL) CBC (11/26/2023 5:02 AM EDT) WBC 9.39 4.00 - 10.80 K/uL 11/26/2023 5:37 AM EDT LABORATORY [facility] RBC 3.78 3.85 - 5.15 M/uL 11/26/2023 5:37 AM EDT LABORATORY [facility] HGB 10.2(L) 12.0 - 15.3 g/dL 11/26/2023 5:37 AM EDT LABORATORY [facility] HCT 35.0(L) 36.0 - 45.2 % 11/26/2023 5:37 AM EDT LABORATORY [facility] MCV 92.6 81.5 - 97.5 fL 11/26/2023 5:37 AM EDT LABORATORY [facility] MCH 27.0 27.0 - 34.0 pg 11/26/2023 5:37 AM EDT LABORATORY [facility] MCHC 29.1 32.0 - 36.0 g/dL 11/26/2023 5:37 AM EDT LABORATORY [facility] RDW 21.2 11.5 - 15.5 % 11/26/2023 5:37 AM EDT LABORATORY [facility] PLT 267 140 - 400 K/uL 11/26/2023 5:37 AM EDT LABORATORY [facility] MPV 9.8 6.6 - 11.1 fL 11/26/2023 5:37 AM EDT LAB[facility] nRBCs 1(H) <=0 /100 WBCs 11/26/2023 5:37 AM [facility] Blood Venous blood specimen / Unknown Venipuncture / Unknown 11/26/2023 5:02 AM EDT 11/26/2023 5:21 AM EDT De Martinez DO LAB BLOOD ORDERABLE [facility] [address] [place] [address] * (ABNORMAL) BASIC METABOLIC PANEL (11/26/2023 5:02 AM EDT) BUN 53(H) 6 - 20 mg/dL 11/26/2023 5:54 AM [facility] Creatinine 1.7(H) 0.5 - 1.0 mg/dL 11/26/2023 5:54 AM [facility] Estimated Glomerular Filtration Rate 28(L) >=60 mL/min 11/26/2023 5:54 AM EDT [facility] Comment:eGFR is calculated b ased on the CKD-EPI 2020 equation Sodium 132(L) 135 - 146 mmol/L 11/26/2023 5:54 AM EDT [facility] Potassium 4.3 3.5 - 5.1 mmol/L 11/26/2023 5:54 AM EDT [facility] Chloride 96(L) 98 - 107 mmol/L 11/26/2023 5:54 AM EDT [facility] CO2 20(L) 22 - 32 mmol/L 11/26/2023 5:54 AM EDT [facility] Anion Gap 16(H) 7 - 15 mmol/L 11/26/2023 5:54 AM EDT [facility] Glucose 80 70 - 120 mg/dL 11/26/2023 5:54 AM EDT [facility] Calcium 9.3 8.4 - 10.2 mg/dL 11/26/2023 5:54 AM EDT [facility] Blood Venous blood specimen / Unknown Venipuncture / Unknown 11/26/2023 5:02 AM EDT 11/26/2023 5:21 AM EDT De Martinez DO LAB BLOOD ORDERABLE S [facility] [address] [place] [address] * POTASSIUM, WHOLE BLOOD (11/25/2023 6:37 AM EDT) Potassium, Whole Blood 4.8 3.5 - 5.1 mmol/L 11/25/2023 6:51 AM EDT [facility] Blood Venous blood specimen / Unknown Venipuncture / Unknown 11/25/2023 6:37 AM EDT 11/25/2023 6:41 AM EDT Nishi Marie MD LAB BLOOD ORDER GRADY Performing Organization Address [facility] de Phone Number LABORATORY [facility] [address] [place] [address] * PHOSPHORUS (11/25/2023 5:16 AM EDT) Phosphorus 3.7 2.5 - 4.8 mg/dL 11/25/2023 5:57 AM EDT [facility] Blood Venous blood specimen / Unknown Venipuncture / Unknown 11/25/2023 5:16 AM EDT 11/25/2023 5:23 AM EDT De Martinez DO LAB BLOOD ORDERABLE S Performing Organization Address [facility] de Phone Number LABORATORY [facility] [address] [place] [address] * MAGNESIUM (11/25/2023 5:16 AM EDT) Magnesium 2.3 1.5 - 2.6 mg/dL 11/25/2023 5:57 AM EDT [facility] Blood Venous blood specimen / Unknown Venipuncture / Unknown 11/25/2023 5:16 AM EDT 11/25/2023 5:23 AM EDT De Martinez DO LAB BLOOD ORDERABLE S Performing Organization Address [facility] de Phone Number LABORATORY [facility] [address] [place] [address] * (ABNORMAL) CBC (11/25/2023 5:16 AM EDT) WBC 9.66 4.00 - 10.80 K/uL 11/25/2023 5:41 AM EDT [facility] RBC 3.58 3.85 - 5.15 M/uL 11/25/2023 5:41 AM EDT [facility] HGB 9.7(L) 12.0 - 15.3 g/dL 11/25/2023 5:41 AM EDT [facility] HCT 33.0(L) 36.0 - 45.2 % 11/25/2023 5:41 AM EDT [facility] MCV 92.2 81.5 - 97.5 fL 11/25/2023 5:41 AM EDT [facility] MCH 27.1 27.0 - 34.0 pg 11/25/2023 5:41 AM EDT [facility] MCHC 29.4 32.0 - 36.0 g/dL 11/25/2023 5:41 AM EDT [facility] RDW 21.7 11.5 - 15.5 % 11/25/2023 5:41 AM EDT [facility] PLT 265 140 - 400 K/uL 11/25/2023 5:41 AM EDT [facility] MPV 9.6 6.6 - 11.1 fL 11/25/2023 5:41 AM EDT [facility] nRBCs 1(H) <=0 /100 WBCs 11/25/2023 5:41 AM EDT LABORATORY [facility] Blood Venous blood specimen / Unknown Venipuncture / Unknown 11/25/2023 5:16 AM EDT 11/25/2023 5:23 AM EDT De Martinez DO LAB BLOOD ORDERABLE S LABORATORY [facility] [address] [place] [address] * (ABNORMAL) BASIC METABOLIC PANEL (11/25/2023 5:16 AM EDT) BUN 51(H) 6 - 20 mg/dL 11/25/2023 5:57 AM EDT [facility] Creatinine 1.7(H) 0.5 - 1.0 mg/dL 11/25/2023 5:57 AM EDT [facility] Estimated Glomerular Filtration Rate 29(L) >=60 mL/min 11/25/2023 5:57 AM EDT [facility] Comment:eGFR is calculated b ased on the CKD-EPI 2020 equation Sodium 136 135 - 146 mmol/L 11/25/2023 5:57 AM EDT [facility] Potassium 5.3(H) 3.5 - 5.1 mmol/L 11/25/2023 5:57 AM EDT [facility] Chloride 101 98 - 107 mmol/L 11/25/2023 5:57 AM EDT [facility] CO2 22 22 - 32 mmol/L 11/25/2023 5:57 AM EDT [facility] Anion Gap 13 7 - 15 mmol/L 11/25/2023 5:57 AM EDT [facility] Glucose 84 70 - 120 mg/dL 11/25/2023 5:57 AM EDT [facility] Calcium 9.5 8.4 - 10.2 mg/dL 11/25/2023 5:57 AM EDT [facility] Blood Venous blood specimen / Unknown Venipuncture / Unknown 11/25/2023 5:16 AM EDT 11/25/2023 5:23 AM EDT [facility] Performing Organization Address [facility] Co de Phone Number LABORATORY [facility] [address] [place] [address] * PHOSPHORUS (11/24/2023 6:42 AM EDT) Phosphorus 3.1 2.5 - 4.8 mg/dL 11/24/2023 7:15 AM EDT LABORATORY C Blood Capillary blood specimen / Unknown Capillary / Unknown 11/24/2023 6:42 AM EDT 11/24/2023 6:47 AM EDT De Sanchez [place] LAB BLOOD ORDERABLE S Performing Organization Address City/[facility]/ZIP Co de Phone Number LABORATORY [facility] [address] [place] [address] * MAGNESIUM (11/24/2023 6:42 AM EDT) Magnesium 2.1 1.5 - 2.6 mg/dL 11/24/2023 7:15 AM EDT [facility] Blood Capillary blood specimen / Unknown Capillary / Unknown 11/24/2023 6:42 AM EDT 11/24/2023 6:47 AM EDT De Martinez LAB BLOOD ORDERABLE S [facility] [address] [place] [address] * (ABNORMAL) CBC (11/24/2023 6:42 AM EDT) WBC 11.37(H) 4.00 - 10.80 K/uL 11/24/2023 6:58 AM EDT [facility] RBC 3.71 3.85 - 5.15 M/uL 11/24/2023 6:58 AM EDT [facility] HGB 10.1(L) 12.0 - 15.3 g/dL 11/24/2023 6:58 AM EDT [facility] HCT 33.0(L) 36.0 - 45.2 % 11/24/2023 6:58 AM EDT [facility] MCV 88.9 81.5 - 97.5 fL 11/24/2023 6:58 AM EDT [facility] MCH 27.2 27.0 - 34.0 pg 11/24/2023 6:58 AM EDT [facility] MCHC 30.6 32.0 - 36.0 g/dL 11/24/2023 6:58 AM EDT [facility] RDW 21.8 11.5 - 15.5 % 11/24/2023 6:58 AM EDT [facility] PLT 280 140 - 400 K/uL 11/24/2023 6:58 AM EDT [facility] MPV 9.2 6.6 - 11.1 fL 11/24/2023 6:58 AM EDT [facility] nRBCs 0 <=0 /100 WBCs 11/24/2023 6:58 AM EDT [facility] Blood Capillary blood specimen / Unknown Capillary / Unknown 11/24/2023 6:42 AM EDT 11/24/2023 6:47 AM EDT De Martinez LAB BLOOD ORDERABLE S [facility] [address], [place] [id number] * (ABNORMAL) BASIC METABOLIC PANEL (11/24/2023 6:42 AM EDT) BUN 42(H) 6 - 20 mg/dL 11/24/2023 7:15 AM EDT [facility] Creatinine 1.4(H) 0.5 - 1.0 mg/dL 11/24/2023 7:15 AM EDT [facility] Estimated Glomerular Filtration Rate 36(L) >=60 mL/min 11/24/2023 7:15 AM EDT [facility] Comment:eGFR is calculated b ased on the CKD-EPI 2020 equation Sodium 135 135 - 146 mmol/L 11/24/2023 7:15 AM EDT [facility] Potassium 4.2 3.5 - 5.1 mmol/L 11/24/2023 7:15 AM EDT [facility] Chloride 100 98 - 107 mmol/L 11/24/2023 7:15 AM EDT [facility] CO2 22 22 - 32 mmol/L 11/24/2023 7:15 AM EDT [facility] Anion Gap 13 7 - 15 mmol/L 11/24/2023 7:15 AM EDT [facility] Glucose 101 70 - 120 mg/dL 11/24/2023 7:15 AM EDT [facility] Calcium 9.1 8.4 - 10.2 mg/dL 11/24/2023 7:15 AM EDT [facility] Blood Capillary blood specimen / Unknown Capillary / Unknown 11/24/2023 6:42 AM EDT 11/24/2023 6:47 AM EDT De Martinez DO LAB BLOOD ORDERABLE S [facility] [address] [place] [address] * MAGNESIUM (11/23/2023 1:02 PM EDT) Magnesium 2.1 1.5 - 2.6 mg/dL 11/23/2023 1:56 PM EDT [facility] Blood Venous blood specimen / Unknown Venipuncture / Unknown 11/23/2023 1:02 PM EDT 11/23/2023 1:22 PM EDT Nishi Marie MD LAB BLOOD ORDER GRADY [facility] [address] [place] [address] * PHOSPHORUS (11/23/2023 1:02 PM EDT) Phosphorus 2.5 2.5 - 4.8 mg/dL 11/23/2023 1:56 PM EDT [facility] Blood Venous blood specimen / Unknown Venipuncture / Unknown 11/23/2023 1:02 PM EDT 11/23/2023 1:22 PM EDT Nishi Marie MD LAB BLOOD ORDER GRADY Performing Organization Address [facility] Co de Phone Number [facility] [address] [place] [address] * (ABNORMAL) BASIC METABOLIC PANEL (11/23/2023 1:02 PM EDT) BUN 42(H) 6 - 20 mg/dL 11/23/2023 1:56 PM EDT [facility] Creatinine 1.3(H) 0.5 - 1.0 mg/dL 11/23/2023 1:56 PM EDT [facility] Estimated Glomerular Filtration Rate 39(L) >=60 mL/min 11/23/2023 1:56 PM EDT [facility] Comment:eGFR is calculated b ased on the CKD-EPI 2020 equation Sodium 136 135 - 146 mmol/L 11/23/2023 1:56 PM EDT [facility] Potassium 4.2 3.5 - 5.1 mmol/L 11/23/2023 1:56 PM EDT [facility] Chloride 97(L) 98 - 107 mmol/L 11/23/2023 1:56 PM EDT [facility] CO2 24 22 - 32 mmol/L 11/23/2023 1:56 PM EDT [facility] Anion Gap 15 7 - 15 mmol/L 11/23/2023 1:56 PM EDT [facility] Glucose 141(H) 70 - 120 mg/dL 11/23/2023 1:56 PM EDT [facility] Calcium 9.2 8.4 - 10.2 mg/dL 11/23/2023 1:56 PM EDT [facility] Blood Venous blood specimen / Unknown Venipuncture / Unknown 11/23/2023 1:02 PM EDT 11/23/2023 1:22 PM EDT Nishi Marie MD LAB BLOOD ORDER GRADY [facility] [address] [place] [address] * ECHO, COMPLETE (2D), TRANS-THORACIC (11/23/2023 12:09 PM EDT) Pathologist [facility] LEFT VENTRICULAR EJECTION FRACTION 60 % [facility] CARDIOLOGY 11/23/2023 11:1 7 AM EDT De Martinez DO ECHOCARDIOLOGY [facility] CARDIOLOGY * (ABNORMAL) CBC (11/23/2023 5:30 AM EDT) Pathologist [facility] WBC 11.04(H) 4.00 - 10.80 K/uL 11/23/2023 6:03 AM EDT [facility] RBC 3.85 3.85 - 5.15 M/uL 11/23/2023 6:03 AM EDT [facility] HGB 10.5(L) 12.0 - 15.3 g/dL 11/23/2023 6:03 AM EDT [facility] HCT 34.5(L) 36.0 - 45.2 % 11/23/2023 6:03 AM EDT [facility] MCV 89.6 81.5 - 97.5 fL 11/23/2023 6:03 AM EDT [facility] MCH 27.3 27.0 - 34.0 pg 11/23/2023 6:03 AM EDT [facility] MCHC 30.4 32.0 - 36.0 g/dL 11/23/2023 6:03 AM EDT [facility] RDW 22.0 11.5 - 15.5 % 11/23/2023 6:03 AM EDT LABORATORY C PLT 301 140 - 400 K/uL 11/23/2023 6:03 AM EDT LABORATORY [facility] MPV 9.1 6.6 - 11.1 fL 11/23/2023 6:03 AM EDT LABORATORY [facility] nRBCs 0 <=0 /100 WBCs 11/23/2023 6:03 AM EDT LABORATORY C Blood Venous blood specimen / Unknown Venipuncture / Unknown 11/23/2023 5:30 AM EDT 11/23/2023 5:52 AM EDT De Martinez LAB BLOOD ORDERABLE S Performing Organization Address City/[facility]/ZIP Co de Phone Number LABORATORY [facility] [address] [place] [address] * MAGNESIUM (11/23/2023 5:30 AM EDT) Magnesium 2.0 1.5 - 2.6 mg/dL 11/23/2023 6:21 AM EDT LABORATORY [facility] Blood Venous blood specimen / Unknown Venipuncture / Unknown 11/23/2023 5:30 AM EDT 11/23/2023 5:52 AM EDT De Martinez LAB BLOOD ORDERABLE S Performing Organization Address [facility]/ZIP Co de Phone Number LABORATORY [facility] [address] [place] [address] * (ABNORMAL) BASIC METABOLIC PANEL (11/23/2023 5:30 AM EDT) BUN 44(H) 6 - 20 mg/dL 11/23/2023 6:21 AM EDT LABORATORY C Creatinine 1.4(H) 0.5 - 1.0 mg/dL 11/23/2023 6:21 AM EDT LABORATORY [facility] Estimated Glomerular Filtration Rate 39(L) >=60 mL/min 11/23/2023 6:21 AM EDT LABORATORY C Comment:eGFR is calculated b ased on the CKD-EPI 2020 equation Sodium 133(L) 135 - 146 mmol/L 11/23/2023 6:21 AM EDT [facility] Potassium 2.5(L) 3.5 - 5.1 mmol/L 11/23/2023 6:21 AM EDT [facility] Chloride 94(L) 98 - 107 mmol/L 11/23/2023 6:21 AM EDT [facility] CO2 24 22 - 32 mmol/L 11/23/2023 6:21 AM EDT LABORATORY [facility] Anion Gap 15 7 - 15 mmol/L 11/23/2023 6:21 AM EDT LABORATORY C Glucose 98 70 - 120 mg/dL 11/23/2023 6:21 AM EDT LABORATORY C Calcium 9.2 8.4 - 10.2 mg/dL 11/23/2023 6:21 AM EDT LABORATORY [facility] Blood Venous blood specimen / Unknown Venipuncture / Unknown 11/23/2023 5:30 AM EDT 11/23/2023 5:52 AM EDT De Martinez DO LAB BLOOD ORDERABLE S LABORATORY [facility] [address] [place] [address] * XR CHEST 1 VIEW (11/23/2023 4:57 AM EDT) Anatomical Region Laterality Modality Chest Computed Radiogr aphy 11/23/2023 5:57 AM EDT Impressions 11/23/2023 7:04 AM EDT IMPRESSION No significant interval change in diffuse bilateral pulmonary opacities. I have personally reviewed this examination and agree with the resident/fellow physician's interpretation. Narrative 11/23/2023 7:04 AM EDT EXAM XR CHEST 1 VIEW-11/23/2023 4:57 am HISTORY SOB COMPARISON Chest radiograph dated 11/21/2023. TECHNIQUE Single portable frontal view of the chest. FINDINGS Lines/Tubes: None. Lungs/Pleura: Similar mild diffuse bilateral pulmonary opacities. Query trace right pleural effusion. No discernible pneumothorax. Heart/Mediastinum: Stable mild cardiomegaly. Dense mitral annular calcifications. Atherosclerosis of the aorta. Bones/Soft Tissues: Multifocal degenerative changes. Procedure Note Louis Stuart MD - 11/23/2023 EXAM XR CHEST 1 VIEW-11/23/2023 4:57 am HISTORY SOB COMPARISON Chest radiograph dated 11/21/2023. TECHNIQUE Single portable frontal view of the chest. FINDINGS Lines/Tubes: None. Lungs/Pleura: Similar mild diffuse bilateral pulmonary opacities. Querytrace right pleural effusion. No discernible pneumothorax. Heart/Mediastinum: Stable mild cardiomegaly. Dense mitral annularcalcifications. Atherosclerosis of the aorta. Bones/Soft Tissues: Multifocal degenerative changes. IMPRESSION IMPRESSION No significant interval change in diffuse bilateral pulmonary opacities. I have personally reviewed this examination and agree with the resident/fellow physician's interpretation. Roseann Low MD RADIOLOGY (RAD GENER AL) * EKG (11/23/2023 3:55 AM EDT) 11/23/2023 3:55 AM EDT Narrative Procedure Note Rakesh Meek MD - 11/23/2023 3:55 AM EDT REASON FOR STUDY: sob CONCLUSIONS: Atrial fibrillation Nonspecific intraventricular conduction delay Possible Lateral infarct , age undetermined Lateral ST abnormality, consider ischemia Abnormal ECG When compared with ECG of 22-Nov-2023 04:35, No significant change was found Ventricular Rate: 61 QRS Duration: 122 QT/QTc: 468/471 ms P-R-T [place]: 0 : -2 : 128 degrees De Martinez DO EKG [facility] CARDIOLOGY documented in this encounter Visit Diagnoses Diagnosis 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)- Primary 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) Chest pain Chest pain, unspecified SOB (shortness of breath) Shortness of breath HOCM (hypertrophic obstructive cardiomyopathy) (HCC) Hypertrophic obstructive cardiomyopathy ILD (interstitial lung disease) (HCC) Postinflammatory pulmonary fibrosis Bradycardia Other specified cardiac dysrhythmias Valvular heart disease Endocarditis, valve unspecified, unspecified cause Bradycardia, unspecified [R00.1] 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, 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, unspecified Unspecified atrial fibrillation (HCC) [I48.91] 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 [Z79.01] Long-term (current) use of anticoagulants Cardiac outflow obstruction Other ill-defined heart disease Acute on chronic respiratory failure with hypoxia (HCC) Pulmonary HTN (HCC) Other chronic pulmonary heart diseases ILD (interstitial lung disease) (HCC) Postinflammatory pulmonary fibrosis LVH (left ventricular hypertrophy) Cardiomegaly Moderate mitral stenosis Mitral stenosis Moderate tricuspid regurgitation Diseases of tricuspid valve Moderate mitral regurgitation Mitral valve disorders Permanent atrial fibrillation (HCC) Atrial fibrillation Bradycardia Other specified cardiac dysrhythmias documented in this encounter Administered Medications Inactive Administered Medications - up to 3 most recent administrations Medication Order MAR Action Action Date Dose Rate Site albuterol-ipratropium (Duoneb) inhalation solution 3 mL 3 mL, Nebulizer, Q4H PRN Dyspnea, Starting on Mon11/23/23 at 0630, Until Mon11/29/23 at 1619, 3 mL = 0.5 mg ipratropium/ 2.5 mg albuterol Apixaban (Eliquis) tab 2.5 mg 2.5 mg, Oral, BID (.AM/PM), First dose on Mon11/23/23 at 0900, Until Discontinued Given 11/26/2023 9:43 AM EDT 2.5 mg Given 11/25/2023 8:47 PM EDT 2.5 mg Given 11/25/2023 8:29 AM EDT 2.5 mg Apixaban (Eliquis) tab 2.5 mg 2.5 mg, Oral, BID (.AM/PM), First dose (after last reorder) on Mon11/29/23 at 0900, Until Discontinued Given 11/29/2023 8:28 AM EDT 2.5 mg aspirin chew tab 81 mg 81 mg, Oral, Daily(AM), First dose on Mon11/23/23 at 0900, Until Discontinued Given 11/29/2023 8:28 AM EDT 81 mg Given 2023 8:33 AM EDT 81 mg Given 11/27/2023 8:23 AM EDT 81 mg atorvaSTATin (Lipitor) tab 20 mg 20 mg, Oral, Daily(AM), First dose on Mon11/23/23 at 0900, Until Discontinued Given 11/29/2023 8:29 AM EDT 20 mg Given 2023 8:34 AM EDT 20 mg Given 11/27/2023 8:23 AM EDT 20 mg ceFAZolin in dextrose (Ancef) ivpb 2 g 2 g, IV Piggyback, ONCE, 1 dose, On Mon11/27/23 at 1630, To be administered for antimicrobial prophylaxis in Electrophysiology Lab intra procedure, Intra-Op New Bag 11/27/2023 3:42 PM EDT 2 g 100 m L/hr ceFAZolin in dextrose (Ancef) ivpb 2 g 2 g, IV Piggyback, Q12H, 1 dose, First dose on Mon11/28/23 at 0300 New Bag 2023 3:32 AM EDT 2 g 100 mL/hr dorzolamide-timolol (Cosopt Ocumeter Plus) ophthalmic solution 1 Drop 1 Drop, Both eyes, BID (.AM/PM), First dose on Mon11/23/23 at 0900, Until Discontinued Given 11/29/2023 8:29 AM EDT 1 Drop Given 2023 10:10 PM EDT 1 Drop Given 2023 8:35 AM EDT 1 Drop fentaNYL (PF) inj 25 mcg 25 mcg, IV Push, PRN Pain, Moderate, Pain, Severe, Starting on Mon11/27/23 at 1545, Until Mon11/27/23 at 1709, For 2 hours, To be administered in EP Lab intra-procedure only. When given IV Push its recommended that the dose be given over 3 to 5 minutes., Intra-Op Given 11/27/2023 3:52 PM EDT 25 mcg Given 11/27/2023 3:47 PM EDT 25 mcg fluticasone (Flonase) nasal inhaler 1 [place] 1 [place], Nasal, Daily(AM), First dose on Mon11/23/23 at 0900, Until Discontinued, 50 mcg / Actuation Given 11/29/2023 8:29 AM EDT 1 [place] Given 2023 8:35 AM EDT 1 [place] Given 11/27/2023 8:24 AM EDT 1 [place] fluticasone furoate-vilanterol (BREO ellipta) 100-25 MCG/ACT inhaler 1 Puff 1 Puff, Inhalation, Daily(AM), First dose on Mon11/23/23 at 0900, Until Discontinued, NURSING TO FOLLOW PATIENT WITH MDI/DPI ADMINISTRATION Given 11/29/2023 8:29 AM EDT 1 Puff Given 2023 8:35 AM EDT 1 Puff Given 11/27/2023 8:24 AM EDT 1 Puff isolyte 500 mL bolus infusion Intravenous, Administer entire volume within 60 minutes or less. Plasma-LYTE 148, isolyte-S, and isolyte-S pH 7.4 are considered equivalent - including for MAR barcode scanning., ONCE, 1 dose, On Mon11/23/23 at 0630 New Bag 11/23/2023 6:36 AM EDT 500 mL 500 mL/h r Latanoprost (Xalatan) 0.005 % ophthalmic solution 1 Drop 1 Drop, Both eyes, HS, First dose on Mon11/23/23 at 2200, Until Discontinued Given 2023 10:10 PM EDT 1 Drop Given 11/27/2023 9:25 PM EDT 1 Drop Given 11/26/2023 9:34 PM EDT 1 Drop Methimazole (Tapazole) tab 2.5 mg 2.5 mg, Oral, Daily(AM), First dose on Mon11/23/23 at 0900, Until Discontinued Given 11/29/2023 8:28 AM EDT 2.5 mg Given 2023 8:34 AM EDT 2.5 mg Given 11/27/2023 8:23 AM EDT 2.5 mg metoprolol succinate XL (toPROL XL) tab 50 mg 50 mg, Oral, Daily(AM), First dose on Mon11/28/23 at 0930, Last dose on Mon11/28/23 at 0930, For 1 dose, Hold for HR less than 60 or SBP below 100 and notify service if dose is held This med should NOT be Crushed or Chewed. Given 2023 10:11 AM EDT 50 mg metoprolol succinate XL (toPROL XL) tab 50 mg 50 mg, Oral, Daily(AM), First dose on Mon11/29/23 at 0900, Until Discontinued, Hold for HR less than 60 or SBP below 100 and notify service if dose is held This med should NOT be Crushed or Chewed. Given 11/29/2023 8:30 AM EDT 50 mg Metoprolol Tartrate (Lopressor) tab 25 mg 25 mg, Oral, BID (.AM/PM), First dose (after last modification) on Mon11/23/23 at 2100, Until Discontinued, Hold for HR less than 60 or SBP below 90 and notify service if dose is held Given 11/23/2023 8:49 PM EDT 25 mg Metoprolol Tartrate (Lopressor) tab 25 mg 25 mg, Oral, BID (.AM/PM), First dose on Mon11/27/23 at 2100, Until Discontinued Given 2023 8:34 AM EDT 25 mg Given 11/27/2023 9:25 PM EDT 25 mg Metoprolol Tartrate (Lopressor) tab 50 mg 50 mg, Oral, BID (.AM/PM), First dose (after last modification) on Mon11/24/23 at 1030, Until Discontinued, Hold for HR less than 60 or SBP below 90 and notify service if dose is held Given 11/24/2023 9:54 AM EDT 50 mg midazolam (Versed) 2 MG/2ML inj 1 mg 1 mg, IV Push, PRN Other, Inadequate sedation, Starting on Mon11/27/23 at 1555, Until Mon11/27/23 at 1709, For 2 hours, To be administered in EP Lab intra-procedure only., Intra-Op Given 11/27/2023 3:47 PM EDT 1 mg nystatin oral susp 500,000 Units 500,000 Units, Swish & Swallow, QID(AM/NOON/PM/HS), First dose on Mon11/27/23 at 1800, Until Discontinued, Shake well ! Given 11/29/2023 5:56 AM EDT 500,000 Units Given 2023 10:10 PM EDT 500,000 Units Given 2023 4:43 PM EDT 500,000 Units potassium chloride ER tab 20 mEq 20 mEq, Oral, ONCE, On Mon11/28/23 at 0615, For 1 dose, This med should NOT be Crushed or Chewed Given 2023 6:55 AM EDT 20 mEq potassium chloride ER tab 40 mEq 40 mEq, Oral, Q1H, First dose on Mon11/23/23 at 0800, Last dose on Mon11/23/23 at 1000, For 3 doses, This med should NOT be Crushed or Chewed Given 11/23/2023 10:29 AM EDT 40 mEq Given 11/23/2023 9:15 AM EDT 40 mEq Given 11/23/2023 8:15 AM EDT 40 mEq rOPINIRole (Requip) tab 1 mg 1 mg, Oral, QHS, First dose on Mon11/23/23 at 2200, Until Discontinued Given 2023 10:10 PM EDT 1 mg Given 11/27/2023 9:25 PM EDT 1 mg Given 11/26/2023 9:34 PM EDT 1 mg senna-docusate (Senokot-S) 1 Tablet 1 Tablet, Oral, Daily(AM), First dose on Mon11/23/23 at 0900, Until Discontinued Given 11/29/2023 8:28 AM EDT 1 Ta blet Given 2023 8:33 AM EDT 1 Tablet Given 11/27/2023 8:24 AM EDT 1 Tablet documented in this encounter Active and Recently Administered Medications Times are shown in EDT. Scheduled Medication Order 11/27/2023 2023 11/29/2023 Apixaban (Eliquis) tab 2.5 mg 2.5 mg, Oral, BID (.AM/PM), First dose (after last reorder) on Mon11/29/23 at 0900, Until Discontinued 827 (Given - Provider: Jyoti Palacio, MARTHA) aspirin chew tab 81 mg 81 mg, Oral, Daily(AM), First dose on Mon11/23/23 at 0900, Until Discontinued 822 (Given - Provider: Beny Mane RN) 0833 (Given - Provider: Jytoi Palacio, MARTHA) 08 (Given - Provider: Jyoti Palacio, MARTHA) atorvaSTATin (Lipitor) tab 20 mg 20 mg, Oral, Daily(AM), First dose on Priti 4/25/24 at 0900, Until Discontinued 0823 (Given - Provider: Beny Mane RN) 0834 (Given - Provider: Jyoti Palacio, MARTHA) 0829 (Given - Provider: Jyoti Palacio, MARTHA) ceFAZolin in dextrose (Ancef) ivpb 2 g (COMPLETED) 2 g, IV Piggyback, ONCE, 1 dose, On Mon11/27/23 at 1630, To be administered for antimicrobial prophylaxis in Electrophysiology Lab intra procedure, Intra-Op 1542 (New Bag - Provider: Katerine Spicer, MARTHA)1617 (Finish Infusion - Provider: Katerine Spicer, MARTHA) ceFAZolin in dextrose (Ancef) ivpb 2 g (COMPLETED) 2 g, IV Piggyback, Q12H, 1 dose, First dose on Mon11/28/23 at 0300 0332 (New Bag - Provider: Yeni Metzger RN) dorzolamide-timolol (Cosopt Ocumeter Plus) ophthalmic solution 1 Drop 1 Drop, Both eyes, BID (.AM/PM), First dose on Mon11/23/23 at 0900, Until Discontinued 08 (Given - Provider: Beny Mane RN)2124 (Given - Provider: Yeni Metzger RN) 0835 (Given - Provider: Jyoti Palacio, MARTHA)221 (Given - Provider: Yeni Metzger RN) 08 (Given - Provider: Jyoti Palacio, MARTHA) fluticasone (Flonase) nasal inhaler 1 [place] 1 [place], Nasal, Daily(AM), First dose on Mon11/23/23 at 0900, Until Discontinued, 50 mcg / Actuation 0824 (Given - Provider: Beny Mane RN) 0835 (Given - Provider: Jyoti Palacio, MARTHA) 0829 (Given - Provider: Jyoti Palacio, MARTHA) fluticasone furoate-vilanterol (BREO ellipta) 100-25 MCG/ACT inhaler 1 Puff 1 Puff, Inhalation, Daily(AM), First dose on Mon11/23/23 at 0900, Until Discontinued, NURSING TO FOLLOW PATIENT WITH MDI/DPI ADMINISTRATION 0824 (Given - Provider: Beny Mane RN) 0835 (Given - Provider: Jyoti Palacio RN) 0829 (Given - Provider: Jyoti Palacio, MARTHA) Latanoprost (Xalatan) 0.005 % ophthalmic solution 1 Drop 1 Drop, Both eyes, HS, First dose on Mon11/23/23 at 2200, Until Discontinued 2124 (Given - Provider: Yeni Metzger, RN) 2209 (Given - Provider: Yeni Metzger, RN) Methimazole (Tapazole) tab 2.5 mg 2.5 mg, Oral, Daily(AM), First dose on Mon11/23/23 at 0900, Until Discontinued 822 (Given - Provider: Beny Mane RN) 0834 (Given - Provider: Jyoti Palacio RN) 08 (Given - Provider: Jyoti Palacio RN) metoprolol succinate XL (toPROL XL) tab 50 mg (COMPLETED) 50 mg, Oral, Daily(AM), First dose on Mon11/28/23 at 0930, Last dose on Mon11/28/23 at 0930, For 1 dose, Hold for HR less than 60 or SBP below 100 and notify service if dose is held This med should NOT be Crushed or Chewed. 101 (Given - Provider: Jyoti Palacio RN) metoprolol succinate XL (toPROL XL) tab 50 mg 50 mg, Oral, Daily(AM), First dose on Mon11/29/23 at 0900, Until Discontinued, Hold for HR less than 60 or SBP below 100 and notify service if dose is held This med should NOT be Crushed or Chewed. 829 (Given - Provider: Jyoti Palacio RN) Metoprolol Tartrate (Lopressor) tab 25 mg (CANCELED) 25 mg, Oral, BID (.AM/PM), First dose on Mon11/27/23 at 2100, Until Discontinued 2124 (Given - Provider: Yeni Metzger, MARTHA) 08 (Given - Provider: Jyoti Palacio RN) nystatin oral susp 500,000 Units 500,000 Units, Swish & Swallow, QID(AM/NOON/PM/HS), First dose on Mon11/27/23 at 1800, Until Discontinued, Shake well ! 1812 (Given - Provider: Beny Mane RN)2124 (Given - Provider: Yeni Metzger, MARTHA) 0512 (Given - Provider: Yeni Metzger RN)1226 (Given - Provider: Jyoti Palacio, MARTHA)1643 (Given - Provider: Jyoti Palacio, MARTHA)2210 (Given - Provider: Yeni Metzger, MARTHA) 0556 (Given - Provider: Yeni Metzger RN)1200 (Due) potassium chloride ER tab 20 mEq (COMPLETED) 20 mEq, Oral, ONCE, On Mon11/28/23 at 0615, For 1 dose, This med should NOT be Crushed or Chewed 06 (Given - Provider: Yudy Dinero RN) rOPINIRole (Requip) tab 1 mg 1 mg, Oral, QHS, First dose on Mon11/23/23 at 2200, Until Discontinued 2124 (Given - Provider: Yeni Metzger RN) 221 (Given - Provider: Yeni Metzger RN) senna-docusate (Senokot-S) 1 Tablet 1 Tablet, Oral, Daily(AM), First dose on Mon11/23/23 at 0900, Until Discontinued 0824 (Given - Provider: Beny Mane RN) 0833 (Given - Provider: Jyoti Palacio RN) 0828 (Given - Provider: Jyoti Palacio RN) PRN Medication Order 11/27/2023 2023 11/29/2023 albuterol-ipratropium (Duoneb) inhalation solution 3 mL 3 mL, Nebulizer, Q4H PRN Dyspnea, Starting on Mon11/23/23 at 0630, Until Mon11/29/23 at 1619, 3 mL = 0.5 mg ipratropium/ 2.5 mg albuterol fentaNYL (PF) inj 25 mcg (CANCELED) 25 mcg, IV Push, PRN Pain, Moderate, Pain, Severe, Starting on Mon11/27/23 at 1545, Until Mon11/27/23 at 1709, For 2 hours, To be administered in EP Lab intra-procedure only. 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
--- OUTSIDE RECORDS SUMMARY | 2023-12-06 21:36 | External Medical Summary ---
Author Name Unknown Address Unknown Organization [id number]:[facility] - [address] [place] [address] Laboratory Report Ordering Provider Test Date Status NADINE DURÁN 11/27/2023 04:27:00 Final Observation Date Value Abnormality Reference (Units ) Status Magnesium 11/27/2023 04:27:00 2.4 1.5-2.6 (m g/dL) Final Performing Location [facility] - [address] [place] [address]
--- OUTSIDE RECORDS SUMMARY | 2023-12-06 21:36 | External Medical Summary ---
Author Name Unknown Address Unknown Organization [id number]:[facility]ATORY [facility] - [address] [place] [address] Laboratory Report Ordering Provider Test Date Status NADINE DURÁN 2023 04:18:00 Final Observation Date Value Abnormality Reference (Units ) Status WBC, Total 2023 04:18:00 9.02 4.00-10.80 (K/uL) Final RBC 2023 04:18:00 3.67 3.85-5.15 (M/uL) Final Hemoglobin 2023 04:18:00 9.7 Below low normal 12.0-15.3 (g/dL) Final HCT 2023 04:18:00 33.0 Below low normal 36.0-45.2 (%) Final MCV 2023 04:18:00 89.9 81.5-97.5 (fL) Final MCH 2023 04:18:00 26.4 27.0-34.0 (pg) Final MCHC 2023 04:18:00 29.4 32.0-36.0 (g/dL) Final RDW 2023 04:18:00 21.1 11.5-15.5 (%) Final Platelets 2023 04:18:00 225 140-400 (K/uL) Final MPV 2023 04:18:00 9.6 6.6-11.1 (fL) Final Nucleated erythrocytes/100 leukocytes [Ratio] in Blood by Automated count 2023 04:18:00 0 <=0 (/100 WBCs) Final Performing Location [facility] - [address] [place] [address]
--- OUTSIDE RECORDS SUMMARY | 2023-12-06 21:36 | External Medical Summary | Summary of Care ---
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) Acute on chronic respiratory failure with hypoxia (HCC) Eri Babin MD [address] [place] [address] Hfam 8 Ip [facility] [address] [place] [address] Referral ID Status Reason Start Date Expiration Date Visits Re quested Visits Authorized [id number] Encounter Details Date Type Department Care Team (Latest Contact Info) Description 2023 1:57 PM EDT - 2023 11:59 PM EDT Hospital Encounter Cardiac Studies [facility] [address] [place] [address] Discharge Disposition: Home - Self Care Allergies Active Allergy Reactions Criticality Noted Date [...] 50 MCG/ACT Nasal Suspension (Flonase) Administer 1 Higden into nostril in the morning. 0 Active rOPINIRole HCl 1 MG Oral Tablet (Requip) Take 1 Tablet by mouth every night at bedtime. 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 Coronary artery disease invo lving [place] coronary artery of [place] heart without angina pectoris 03/22/2016 Essential hypertension [...] No 11/23/2023 documented as of this encounter Plan of Treatment Upcoming Encounters Date Type Department Care Team (Late st Contact Info) Description 12/05/2023 11:00 AM EDT Cardiac Studies [facility] [place] [facility] [address] [place], Pacer [facility] [address] [facility] [place] [address] 12/08/2023 9:00 AM EDT Office Visit Nephrology, [facility] [place] [place] [address] Jef Kaminski MD 200 [facility] [place] [address] 12/13/2023 10:00 AM EDT Office Visit [facility]enterology, [facility] [place] [address] Trenton Cameron CRNP [facility] [place] [address] 12/18/2023 8:30 AM EDT Telemedicine Cardiology, [facility] 132 [facility] [place] [address] Jennifer Queen PA-C [address] [facility] [place] [address] 12/21/2023 10:30 AM EDT Telemedicine Pulmonary Medicine [facility] [place] [address] [facility] Building [place] [address] [place] [address] Yocasta Proctor CRNP [address] [facility] [address] 01/31/2024 1:00 PM EDT PulmDiagnostic Pulmonary Function Lab, [place] [address] [place] [address] [facility] [employer] [address] [place] [address] 02/20/2024 2:20 PM EDT Office Visit Nephrology, Jonas Seth 200 [facility] [place] [address] Jef Kaminski MD 200 [facility] [place] [address] Health Maintenance Due Date Last Done Comments [...] this encounter Medical Devices Implanted Type Area Rn Perinatal Device Identifier Shelf Expiration Date Model / Serial / Lot Lead Novus Bipolar 58cm - [id number] Implanted:Qty: 1 on 11/27/2023 by Sol Duncan MD at [facility] [employer] : CRM [id number] 06/07/2024 5076- 58 / [id number] / [id number] Pacemaker [place] S Sr Mri Wrls - [id number] Implanted:Qty: 1 on 11/27/2023 by Sol Duncan MD at [facility] [employer] [facility] [id number] 03/13/2025 W3S R01 / [id number] / [id number] documented as of this encounter Procedures Procedure Name Priority Date/Time Associated Diagnosis Comments ECHO, TTE, LIMITED STAT 2023 2: 05 PM EDT Valvular heart disease documented in this encounter Results * ECHO, TTE, LIMITED (2023 2:05 PM EDT) LEFT VENTRICULAR EJECTION FRACTION 60 % [facility] 2023 1:18 PM EDT Nishi Marie MD ECHOCARDIOLOGY [facility] documented in this encounter Advance Directives Latest [...] Advance Directives occurred with: Patient Care Teams Labor Expediter Relationship Specialty Start Date End Date Jeanna Bal PA-C [address] [place] [address] [phone] PCP - General Physician Tier Lift Operator 06/13/17 documented as of this encounter
--- OUTSIDE RECORDS SUMMARY | 2023-12-06 21:36 | External Medical Summary ---
Author Name Unknown Address Unknown Organization [id number]:LABORATORY [facility] - [facility] [address] [place] [address] Laboratory Report Ordering Provider Test Date Status NADINE DURÁN 2023 04:18:00 Final Observation Date Value Abnormality Reference (Units ) Status BUN 2023 04:18:00 55 Above high normal 6-20 (mg/dL) Final Creatinine 2023 04:18:00 1.4 Above high normal 0.5-1.0 (mg/dL) Final Glomerular filtration rate/1.73 sq M.predicted [Volume Rate/Area] in Serum, Plasma or Blood by Creatinine-based formula (CKD-EPI) 2023 04:18:00 38 Below low normal >=60 (mL/min) Final eGFR is calculated based on the CKD-EPI 2020 equation Sodium 2023 04:18:00 132 Below low normal 135 -146 (mmol/L) Final Potassium 2023 04:18:00 3.8 3.5-5.1 (m mol/L) Final Cl 2023 04:18:00 97 Below low normal 98- 107 (mmol/L) Final CO2 2023 04:18:00 20 Below low normal 22- 32 (mmol/L) Final Anion gap 2023 04:18:00 15 7-15 (mmol /L) Final Glucose 2023 04:18:00 67 Below low normal 70- 120 (mg/dL) Final Calcium 2023 04:18:00 9.0 8.4-10.2 ( mg/dL) Final Performing Location LABORATORY [facility] - [address] [place] [address]
--- OUTSIDE RECORDS SUMMARY | 2023-12-06 21:36 | External Medical Summary ---
Author Name Unknown Address Unknown Organization K01:[facility] - [address] [place] [address] Laboratory Report Ordering Provider Test Date Status NADINE DURÁN 11/27/2023 04:27:00 Final Observation Date Value Abnormality Reference (Units ) Status Phosphate 11/27/2023 04:27:00 3.7 2.5-4.8 (m g/dL) Final Performing Location [facility] - [address] [place] [address]
--- OUTSIDE RECORDS SUMMARY | 2023-12-06 21:36 | External Medical Summary ---
Author Name Unknown Address Unknown Organization [id number]:[facility]ATORY [facility] - [address] [place] [address] Laboratory Report Ordering Provider Test Date Status NADINE DURÁN 11/27/2023 04:27:00 Final Observation Date Value Abnormality Reference (Units ) Status BUN 11/27/2023 04:27:00 59 Above high normal 6-20 (mg/dL) Final Creatinine 11/27/2023 04:27:00 1.7 Above high normal 0.5-1.0 (mg/dL) Final Glomerular filtration rate/1.73 sq M.predicted [Volume Rate/Area] in Serum, Plasma or Blood by Creatinine-based formula (CKD-EPI) 11/27/2023 04:27:00 30 Below low normal >=60 (mL/min) Final eGFR is calculated based on the CKD-EPI 2020 equation Sodium 11/27/2023 04:27:00 131 Below low normal 135 -146 (mmol/L) Final Potassium 11/27/2023 04:27:00 4.3 3.5-5.1 (m mol/L) Final Cl 11/27/2023 04:27:00 95 Below low normal 98- 107 (mmol/L) Final CO2 11/27/2023 04:27:00 23 22-32 (mmo l/L) Final Anion gap 11/27/2023 04:27:00 13 7-15 (mmol /L) Final Glucose 11/27/2023 04:27:00 83 70-120 (mg /dL) Final Calcium 11/27/2023 04:27:00 9.3 8.4-10.2 ( mg/dL) Final Performing Location [facility] - [address] [place] [address]
--- OUTSIDE RECORDS SUMMARY | 2023-12-06 21:36 | External Medical Summary ---
Author Name Unknown Address Unknown Organization K01:[facility] [place] [facility] [address] [place] [address] Laboratory Report Ordering Provider Test Date Status NADINE DURÁN 11/27/2023 04:27:00 Final Observation Date Value Abnormality Reference (Units ) Status WBC, Total 11/27/2023 04:27:00 9.21 4.00-10.80 (K/uL) Final RBC 11/27/2023 04:27:00 3.57 3.85-5.15 (M/uL) Final Hemoglobin 11/27/2023 04:27:00 9.6 Below low normal 12.0-15.3 (g/dL) Final HCT 11/27/2023 04:27:00 32.2 Below low normal 36.0-45.2 (%) Final MCV 11/27/2023 04:27:00 90.2 81.5-97.5 (fL) Final MCH 11/27/2023 04:27:00 26.9 27.0-34.0 (pg) Final MCHC 11/27/2023 04:27:00 29.8 32.0-36.0 (g/dL) Final RDW 11/27/2023 04:27:00 20.9 11.5-15.5 (%) Final Platelets 11/27/2023 04:27:00 254 140-400 (K/uL) Final MPV 11/27/2023 04:27:00 9.5 6.6-11.1 (fL) Final Nucleated erythrocytes/100 leukocytes [Ratio] in Blood by Automated count 11/27/2023 04:27:00 0 <=0 (/100 WBCs) Final Performing Location [facility] - [address] [place] [address]
--- OUTSIDE RECORDS SUMMARY | 2023-12-06 21:36 | External Medical Summary ---
Author Name Unknown Address Unknown Organization K01:[facility] - [address] [place] [address] Laboratory Report Ordering Provider Test Date Status NADINE DURÁN 2023 04:18:00 Final Observation Date Value Abnormality Reference (Units ) Status Magnesium 2023 04:18:00 2.4 1.5-2.6 (m g/dL) Final Performing Location [facility] - [address] [place] [address]
--- OUTSIDE RECORDS SUMMARY | 2023-12-06 21:36 | External Medical Summary ---
Author Name Unknown Address Unknown Organization K01:LABORATORY [facility] - [facility] [address] [facility] [address] Laboratory Report Ordering Provider Test Date Status NADINE DURÁN 11/29/2023 07:00:00 Final Observation Date Value Abnormality Reference (Units ) Status WBC, Total 11/29/2023 07:00:00 8.84 4.00-10.80 (K/uL) Final RBC 11/29/2023 07:00:00 3.97 3.85-5.15 (M/uL) Final Hemoglobin 11/29/2023 07:00:00 10.6 Below low normal 12.0-15.3 (g/dL) Final HCT 11/29/2023 07:00:00 36.0 36.0-45.2 (%) Final MCV 11/29/2023 07:00:00 90.7 81.5-97.5 (fL) Final MCH 11/29/2023 07:00:00 26.7 27.0-34.0 (pg) Final MCHC 11/29/2023 07:00:00 29.4 32.0-36.0 (g/dL) Final RDW 11/29/2023 07:00:00 21.0 11.5-15.5 (%) Final Platelets 11/29/2023 07:00:00 254 140-400 (K/uL) Final MPV 11/29/2023 07:00:00 9.7 6.6-11.1 (fL) Final Nucleated erythrocytes/100 leukocytes [Ratio] in Blood by Automated count 11/29/2023 07:00:00 0 <=0 (/100 WBCs) Final Performing Location LABORATORY [facility] - [address] [place] [address]
--- OUTSIDE RECORDS SUMMARY | 2023-12-06 21:37 | External Medical Summary ---
Author Name Unknown Address Unknown Organization K01:[facility]ATORY [facility] - [address] [place] [address] Laboratory Report Ordering Provider Test Date Status NADINE DURÁN 11/24/2023 06:42:00 Final Observation Date Value Abnormality Reference (Units ) Status BUN 11/24/2023 06:42:00 42 Above high normal 6-20 (mg/dL) Final Creatinine 11/24/2023 06:42:00 1.4 Above high normal 0.5-1.0 (mg/dL) Final Glomerular filtration rate/1.73 sq M.predicted [Volume Rate/Area] in Serum, Plasma or Blood by Creatinine-based formula (CKD-EPI) 11/24/2023 06:42:00 36 Below low normal >=60 (mL/min) Final eGFR is calculated based on the CKD-EPI 2020 equation Sodium 11/24/2023 06:42:00 135 135-146 (m mol/L) Final Potassium 11/24/2023 06:42:00 4.2 3.5-5.1 (m mol/L) Final Cl 11/24/2023 06:42:00 100 98-107 (mm ol/L) Final CO2 11/24/2023 06:42:00 22 22-32 (mmo l/L) Final Anion gap 11/24/2023 06:42:00 13 7-15 (mmol /L) Final Glucose 11/24/2023 06:42:00 101 70-120 (mg /dL) Final Calcium 11/24/2023 06:42:00 9.1 8.4-10.2 ( mg/dL) Final Performing Location LABORATORY [facility] - [address] [place] [address]
--- OUTSIDE RECORDS SUMMARY | 2023-12-06 21:37 | External Medical Summary ---
Author Name Unknown Address Unknown Organization : Laboratory Report Ordering Provider Test Date Status LOBITO WILLAMS 11/22/2023 06:10:44 Final Observation Date Value Abnormality Reference (Units ) Status Glucose Point of Care 11/22/2023 06:10:44 93 70-120 (mg/dL) Final Performing Location
--- OUTSIDE RECORDS SUMMARY | 2023-12-06 21:37 | External Medical Summary ---
Author Name Unknown Address Unknown Organization K01:LAB[facility]ATORY [facility] - [address] [place] [address] Laboratory Report Ordering Provider Test Date Status NADINE DURÁN 11/24/2023 06:42:00 Final Observation Date Value Abnormality Reference (Units ) Status Magnesium 11/24/2023 06:42:00 2.1 1.5-2.6 (m g/dL) Final Performing Location [facility] - [address] [place] [address]
--- OUTSIDE RECORDS SUMMARY | 2023-12-06 21:37 | External Medical Summary ---
Author Name Unknown Address Unknown Organization K01:[facility] - [address] [place] [address] Laboratory Report Ordering Provider Test Date Status NADINE DURÁN 11/26/2023 05:02:00 Final Observation Date Value Abnormality Reference (Units ) Status Phosphate 11/26/2023 05:02:00 3.9 2.5-4.8 (m g/dL) Final Performing Location [facility] - [address] [place] [address]
--- OUTSIDE RECORDS SUMMARY | 2023-12-06 21:37 | External Medical Summary ---
Author Name Unknown Address Unknown Organization K01:[facility] - [address] [place] [address] Laboratory Report Ordering Provider Test Date Status NADINE DURÁN 11/25/2023 05:16:00 Final Observation Date Value Abnormality Reference (Units ) Status Magnesium 11/25/2023 05:16:00 2.3 1.5-2.6 (m g/dL) Final Performing Location [facility] - [address] [place] [address]
--- OUTSIDE RECORDS SUMMARY | 2023-12-06 21:37 | External Medical Summary ---
Author Name Unknown Address Unknown Organization : Laboratory Report Ordering Provider Test Date Status NINA LARSEN 11/23/2023 00:07:11 Final Observation Date Value Abnormality Reference (Units ) Status Glucose Point of Care 11/23/2023 00:07:11 106 70-120 (mg/dL) Final Performing Location
--- OUTSIDE RECORDS SUMMARY | 2023-12-06 21:37 | External Medical Summary ---
Author Name Unknown Address Unknown Organization K01:[facility] [place] [address] [place] [address] Laboratory Report Ordering Provider Test Date Status RAMESH EVANS 11/25/2023 06:37:00 Final Observation Date Value Abnormality Reference (Units ) Status Potassium, Whole Blood 11/25/2023 06:37:00 4.8 3.5-5.1 (mmol/L) Final Performing Location LABORATORY [facility] - [address] [place] [address]
--- OUTSIDE RECORDS SUMMARY | 2023-12-06 21:37 | External Medical Summary ---
Author Name Unknown Address Unknown Organization : Laboratory Report Ordering Provider Test Date Status NINA LARSEN 11/22/2023 11:59:21 Final Observation Date Value Abnormality Reference (Units ) Status Glucose Point of Care 11/22/2023 11:59:21 98 70-120 (mg/dL) Final Performing Location
--- OUTSIDE RECORDS SUMMARY | 2023-12-06 21:37 | External Medical Summary ---
Author Name Unknown Address Unknown Organization K01:[facility] - [address] [place] [address] Laboratory Report Ordering Provider Test Date Status NADINE DURÁN 11/24/2023 06:42:00 Final Observation Date Value Abnormality Reference (Units ) Status Phosphate 11/24/2023 06:42:00 3.1 2.5-4.8 (m g/dL) Final Performing Location [facility] - [address] [place] [address]
--- OUTSIDE RECORDS SUMMARY | 2023-12-06 21:37 | External Medical Summary ---
Author Name Unknown Address Unknown Organization K01:[facility] - [address] [place] [address] Laboratory Report Ordering Provider Test Date Status NADINE DURÁN 11/25/2023 05:16:00 Final Observation Date Value Abnormality Reference (Units ) Status Phosphate 11/25/2023 05:16:00 3.7 2.5-4.8 (m g/dL) Final Performing Location [facility] - [address] [place] [address]
--- OUTSIDE RECORDS SUMMARY | 2023-12-06 21:37 | External Medical Summary | Summary of Care ---
Author Name Unknown Organization [facility] Address [address] [place] [address] Phone [phone] Care Team Providers Care Last Repairer Helper Name Role Phone Jeanna Bal PA-C Primary Care [facility] Reason for Visit * Reason Comments Altered Mental Status * Auth/Cert Specialty Diagnoses / Procedures Referred By Kasey t Referred To Contact [facility] [address] [place] [address] Phone: [phone] Emergency Medicine [facility] [address] [place] [address] Referral ID Status Reason Start Date Expiration Date Visits Re quested Visits Authorized [id number] Encounter Details Date Type Department Care Team (Latest Contact Info) Description 11/21/2023 3:13 PM EDT - 11/23/2023 2:20 AM EDT Hospital Encounter [facility], Acute Care Unit, Main Hospital 1st Floor [address] [place] [address] Arden River MD [facility] [place] [address] Adriana Harris MD [address] [place] [address] Tim Todd DO [address] [place] [address] Discharge Disposition: Other Allergies Active Allergy Reactions Criticality Noted Date Comments Amoxicillin Hives Medium 03/22/2016 Gatifloxacin Nausea/vomiting Medium 03/22/2016 Latex Rash Medium 03/22/2016 Other reaction(s): johnson documented as of this encounter (statuses as of 11/23/2023) Medications Medication Sig Dispensed Refills Start Date [...] Suspended Preparation H 1-0.25-14.4-15 % External Cream (Ghumqb-IR-Ikgtkr in-Petrolatum) Apply 1 Application topically to affected [...] 50 MCG/ACT Nasal Suspension (Flonase) Administer 1 [place] into nostril in the morning. 0 Suspended [...] 30 Tablet 0 11/15/2023 Suspended Additional Information Hospital, Clinic, or Other Facility Administered Medication Ordered Dose Route Frequency Start Date End Date Status Albuterol Sulfate (Proventil) (2.5 MG/3ML) 0.083% inhalation solution 2.5 mgIndications:SOB (shortness of breath) 2.5 mg NEBULIZER PRN 10/16/2023 10/15/2024 Act toshia documented as of this encounter (statuses as of 11/23/2023) Active Problems Problem Noted Date Diagnosed Date Acute respiratory failure with hypoxia Nonrheumatic tricuspid valve regurgitation 11/10 CKD (chronic kidney disease) stage 3, GFR 30-59 ml/min 11/07/2023 Interstitial lung disease 10/18/2023 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 10/04/2023 [...] 08/29/2023 Petechial rash 08/29/2023 Oral thrush 08/29/2023 Acute on chronic respiratory failure with hypoxi a 08/19/2023 CAP (community acquired pneumonia) 08/19/2023 Acute on chronic combined sy stolic and diastolic heart failure due to valvular disease 07/30/2023 Graves disease 09/30/2021 Hypertrophic cardiomyopathy 06/21/2020 Nonrheumatic mitral valve stenosis 06/21/2020 Ascending aortic 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 Coronary artery disease invo lving curyung coronary artery of curyung heart without angina pectoris 03/22/2016 Essential hypertension with goal blood pressure less than 140/90 03/22/2016 Dyslipidemia, goal to be determined 03/22/2016 documented as of this encounter (statuses as of 11/23/2023) Resolved Problems Problem Noted Date Diagnosed Date Resolved Date New onset atrial fibrillation 08/29/2023 11/07/2023 Acute respiratory failure due to COVID-19 07/30/2023 08/01/2023 Pneumonia due to COVID-19 virus 07/30/2023 08/01/2023 NSTEMI (non-ST elevated myoc ardial infarction) 09/30/2021 10/05/2021 Pain in both lower extremities 03/22/2016 07/30/2023 documented as of this encounter (statuses as of 11/23/2023) Immunizations Name Administration Dates Next Due COVID-19 mRNA, LNP-s, No Pre serve, 2-Dose Series (Moderna) 05/26/2021,09/26/2020,08/29/2020 Varicella Zoster Vaccine (Adult) 06/28/2012 documented as of this encounter Social History Tobacco Use Types Packs/Day Years Used Date Smoking Tobacco: Never Passive Smoke Exposure: Past Smokeless Tobacco: Never Comments:Parents smoked in h ome growing up and then work place up until 1968 Alcohol Use Standard Drinks/Week Comments Not Currently [...] Sign Reading Time Taken Comments Blood Pressure 80/45 11/23/2023 2:10 AM EDT Pulse 71 11/23/2023 2:10 AM EDT Temperature 36 C (96.8 F) 11/23/2023 2:1 0 AM EDT pt being transferred to [facility] Respiratory Rate 17 11/23/2023 2:10 AM EDT Oxygen Saturation 95% 11/23/2023 2:1 0 AM EDT Inhaled Oxygen Concentration - - Weight 85.8 kg (189 lb 2.5 oz) 11/21/2023 8:06 PM EDT Height 154.9 cm (5' 1") 11/21/2023 8:06 PM EDT Body Mass Index 35.74 11/21/2023 8:06 PM EDT documented in this encounter Functional Status Functional Status Response Date of Assess ment Are you deaf or do you have serious difficulty h earing? No 11/21/2023 Are you blind or do you have serious difficulty seeing, even when wearing glasses? No 11/21/2023 Do you have serious difficul ty walking or climbing stairs? (5 years old or older) Yes 11/21/2023 Do you have difficulty dress ing or bathing? (5 years old or older) Yes 11/21/2023 Because of a physical, menta l, or emotional condition, do you have difficulty doing errands alone such as visiting a doctor s office or shopping? (15 years old or older) Yes 11/21/19 Cognitive Status Response Date of Assessm ent Because of a physical, menta l, or emotional condition, do you have serious difficulty concentrating, remembering, or making decisions? (5 years old or older) Yes 11/21/2023 documented as of this encounter Discharge Summaries * Tim Todd, - 11/22/2023 4:33 PM EDT Images from the original note were not included. [facility] [address] [facility] [address] Admission Date: 11/21/2023 Discharge Date: 11/22/2023 RECOMMENDED TO DO FOR NEXT PROVIDER(S): Transfer to [facility] REASON(S) FOR MEDICATION CHANGE(S): As above DISPOSITION ON DISCHARGE: [facility] Active Hospital Problems Diagnosis *Principal Diagnosis - Acute on chronic respiratory failure with hypoxia (HCC) Acute respiratory failure with hypoxia (HCC) CKD (chronic kidney disease) stage 3, GFR 30-59 ml/min (HCC) Chronic atrial fibrillation (HCC) Pulmonary HTN (HCC) CAP (community acquired pneumonia) 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 ADMISSION HISTORY & PHYSICAL EXAM (focused): PRESENTING PROBLEM: Altered mental status HPI: 87-year-old female with past medical history significant for hypertrophic cardiomyopathy, combined systolic and diastolic heart failure, mild aortic stenosis, moderate mitral stenosis, hypertension, hyperlipidemia, severe pulmonary hypertension, CKD stage 3, Graves disease, CAD, chronic respiratory failure on 3 L nasal cannula that was weaned off in recent hospitalization, idiopathic pulmonary fibrosis with recurrent admission for heart failure who presented with altered mental status from [place]. Reported administering 3 L of IV fluid for low blood pressure at [place] and she becamemore confused and disoriented. Her recent hospitalization discharge weight was 174 lb and noted that her weight here is 185 lb in ED. patient required high-flow oxygen briefly initially and transitioned to 5 L nasal cannula in ED for hypoxia, of note her oxygen supplements was weaned off on her recent hospitalization however she was started back on 3 L nasal cannula in [place] last week. Laws catheter was placed in ED for distended bladder which put out 1300 mL with improvement of mental status. She received IV Lasix 80 mg, IV cefepime and vancomycin in ED. Patient was alert and awake on my evaluation. No signs of respiratory distress. History obtained bypatient and family at bedside who wish patient to be no code. Physical Exam Most Recent Vital Signs: BP: 95 mmHg/62 mmHg (11/21/231914) Pulse: 47 (11/21/231914) Temp: 36.28 C (11/21/231914) Temp Summary: Temp Min: 35.8 C (96.4 F) Max: 36.3 C (97.3 F) SpO2: 100 % (11/21/231824) O2 flow rate: 3 L/MIN (11/21/231914) Supplemental O2 Delivery: Nasal Cannula (11/21/231914) Urethral Catheter Regular catheter (Active) Number of days: 0 Peripheral Line Left Antecubital 20 Gauge (Active) Number of days: 0 Peripheral Line Right Antecubital 18 Gauge (Active) Number of days: 0 STUDIES: Encounter Orders Labs and other studies reviewed with pertinent findings noted below: Chest x-ray with vascular congestion and small right pleural effusion. Possible bilateral airspace opacities concerning for pneumonia. RP panel negative. Troponin 74 flat. Lactate 2.7. Creatinine 1.7 which is slightly above baseline. Sodium 130. Potassium 3.4. HOSPITAL COURSE (focused): The patient was admitted with confusion as well as shortness of breath found have acute on chronic hypoxic respiratory failure secondary to acute on chronic decompensated systolic and diastolic heartfailure. The patient's encephalopathy was likely secondary to urinary retention as once a Laws catheter was placed the patient diuresed 1.3 liters and mental status improved. Patient was diuresed with Lasix 80 milligrams IV however, the patient became hypotensive after 1 dose. Given her extensive cardiac history as well as HOCM and severe tricuspid regurgitation, Cardiology was consulted who recommended transfer for close monitoring and diuresis. Operations & Procedures: none Complications: none significant Significant Lab and Imaging Results: As mentioned above Results Pending at Discharge: Lab Results Pending at Discharge: None MEDICATION UPDATES AT DISCHARGE CONTINUE taking these medications but follow up with your Primary Care Physician (PCP). INSTRUCTIONS Acetaminophen 325 MG Caps Notes to patient: Fever or pain relief Take 2 Tablets by mouth as needed for Other (Temp above 100.5 or pain). albuterol-ipratropium 2.5-0.5 MG/3ML nebulizer solution Commonly known as: Duoneb Notes to patient: Treats shortness of breath, cough, or wheezing Inhale 0.5 mg by mouth every 6 hours as needed for Shortness of Breath, Cough or Wheezing. Apixaban 2.5 MG Tabs Commonly known as: Eliquis Notes to patient: Anticoagulant used for prevention and treatment of blood clots Take 1 Tablet by mouth in the morning and 1 Tablet before bedtime. aspirin enteric coated 81 MG Tbec Notes to patient: Promotes heart health Take 1 Tablet by mouth in the morning. atorvaSTATin 20 MG Tablet Commonly known as: Lipitor Notes to patient: Blood cholesterol management Take 1 Tablet by mouth daily. Benzonatate 100 MG Capsule Commonly known as: Tessalon Perles Notes to patient: Cough relief Take 2 Capsules by mouth 3 times a day as needed for Cough. Bisacodyl 10 MG suppository Commonly known as: Dulcolax Notes to patient: Treats constipation Administer 1 Suppository into the rectum as needed for Constipation. cholecalciferol (VIT D3) 1000 UNITS Tablet Commonly known as: Vitamin D3 Notes to patient: Supplement Take 1 Tablet by mouth daily at noon. Allyn Osman Misc Notes to patient: Ambulatory aid Use as directed. Cosopt 2.23-0.68% ophthalmic solution Generic drug: dorzolamide-timolol Notes to patient: Treats increased eye pressure Instill 1 Drop into eye in the morning and 1 Drop before bedtime. Enema Disposable Enem Notes to patient: Treats constipation Administer 1 Application into the rectum as needed for Constipation. fluticasone 50 MCG/ACT nasal spray Commonly known as: Flonase Notes to patient: Treats allergic and non-allergic nasal symptoms Administer 1 [place] into nostril in the morning. fluticasone furoate-vilanterol 100-25 MCG/ACT Aepb Commonly known as: BREO ellipta Notes to patient: Treats wheezing and shortness of breath Inhale 1 Puff by mouth in the morning. Jardiance 10 MG Tabs Generic drug: Empagliflozin Notes to patient: Helps improve blood glucose control Take 1 Tablet by mouth in the morning. Do not start before November 15, 2023. Latanoprost 0.005 % ophthalmic solution Commonly known as: Xalatan Notes to patient: Treats increased eye pressure Instill 1 Drop into both eyes at bedtime. methIMAzole 5 MG Tablet Commonly known as: Tapazole Notes to patient: Treats overactive thyroid Take 0.5 Tablets by mouth. Take 1/2 tablet 6 days per week (does not take on Monday) metOLazone 2.5 MG Tablet Commonly known as: Zaroxolyn Notes to patient: Diuretic to help rid body of excess fluid TAKE 1 tablet for more than 3 lb weight gain in a day or more than 5 lbs in a week Miconazole Nitrate 2 % Powd Commonly known as: Remedy Notes to patient: Antifungal powder to treat fungal skin infections Apply topically to affected area 2 times a day. Apply to groin polyethylene glycol 3350 119 gram Powd Commonly known as: Miralax Notes to patient: Treats constipation Take 17 g by mouth as needed for Constipation. Potassium Chloride ER 10 MEQ Cpcr Notes to patient: Supplement Take 2 Capsules by mouth in the morning and 2 Capsules before bedtime. Preparation H 1-0.25-14.4-15 % Crea Generic drug: Vflekn-ON-Sszgqene-Petrolatum Notes to patient: Treats hemorrhoids Apply 1 Application topically to affected area every 8 hours as needed for Hemorrhoids. Apply to rectal area rOPINIRole 1 MG Tablet Commonly known as: Requip Notes to patient: Treats restless legs Take 1 Tablet by mouth every night at bedtime. Senna-S 8.6-50 MG per tablet Generic drug: senna-docusate Notes to patient: Treats constipation Take 1 Tablet by mouth in the morning. Spironolactone 50 MG Tablet Commonly known as: Aldactone Notes to patient: Diuretic to help rid body of excess fluid Take 1 Tablet by mouth in the morning. Torsemide 40 MG Tabs Notes to patient: Diuretic to help rid body of excess fluid Take 40 mg by mouth in the morning and 40 mg before bedtime. Vitamin B-12 1000 MCG Tablet Commonly known as: Cyanocobalamin Notes to patient: Supplement Take 1 Tablet by mouth in the morning. Vitamin C 500 MG Tablet Commonly known as: Ascorbic Acid Notes to patient: Supplement Take 1 Tablet by mouth daily at noon. Vitamin E 400 units Tablet Notes to patient: Supplement Take 1 Tablet by mouth daily at noon. SCHEDULED FOLLOW-UP: Future Appointments Appt Date/Time Provider Department 12/08/2023 9:00 AM Jef Kaminski MD Nephrology, [facility] [place] 12/13/2023 10:00 AM Trenton Cameron CRNP Gastroenterology, [facility] 12/18/2023 8:30 AM Jennifer Queen PA-C Cardiology, [facility] 12/21/2023 10:30 AM Yocasta Proctor CRNP Pulmonary Medicine Medical [facility] 01/31/2024 1:00 PM Stephanie Caputo Tech Pulmonary Function Lab, [facility] 02/20/2024 2:20 PM Jef Kaminski MD Nephrology, [facility] Other Information Indwelling Devices: LINES ALL Duration Peripheral Line Left Antecubital 20 Gauge 1 day Peripheral Line Right Antecubital 18 Gauge 1 day Urethral Catheter Regular catheter 1 day Vital Signs (last recorded): Most Recent Systolic BP: 80 mmHg (11/22/23 1200) Most Recent Diastolic BP: 52 mmHg (11/22/23 1200) Pulse: 72 (11/22/23 1337) Resp: 18 (11/22/23 1337) Most Recent Temperature: 36.06 C (11/22/23 08) Weight: 85.8 kg (189 lb 2.5 oz) (11/21/232005) SpO2: 95 % (11/22/23 133) O2 flow rate: 1 L/MIN (11/22/23 1337) Allergies: Amoxicillin, Gatifloxacin, and Latex Activity: as tolerated Diet: age appropriate diet Code Status: No Code Condition on Discharge: stable Isolation status: None Cognition: normal HOSPITAL CONSULTS ORDERED: ADULT SPEECH THERAPY CONSULT IP (ACUTE CARE REHAB) CARDIOLOGY CONSULT IP REFERRING PHYSICIAN: Ref: [id number] NO STRE[address] ADDRESS AVAILABLE None (office) None (fax) PRIMARY CARE PROVIDER: PCP: Jeanna Bal PA-C [address] [id number] / [place] [id number] (office) [phone] (fax) Note: To contact a physician responsible for this patients hospital care, please call [facility] [phone]. I spent a total of 39 minutes coordinating, documenting, and providing care for this patient excluding time spent in the performance of separately billed services. documented in this encounter Progress Notes * Tim Todd DO - 11/22/2023 8:22 AM EDT Images from the original note were not included. [facility] ACU-111/01 INTERVAL HISTORY: Follow-up for respiratory failure. Doing okay this morning, appears weak and tired. Is alert and oriented x3. No chest pain., shortness of breath. Did require 500 mL of fluid overnight due to hypotension. Intake/Output Summary (Last 24 hours) at 11/22/2023 0825 Last data filed at 11/22/2023 0500 Gross per 24 hour Intake 1858.89 ml Output 2175 ml Net -316.11 ml Objective Physical Exam Most Recent Vital Signs: BP: 82 mmHg/51 mmHg (11/22/23 0700) Pulse: 57 (11/22/23 0700) Temp: 36.06 C (11/22/23 0800) Temp Summary: Temp Min: 35.8 C (96.4 F) Max: 36.3 C (97.3 F) SpO2: 94 % (11/22/23 0706) O2 flow rate: 3 L/MIN (11/22/23 0800) Supplemental O2 Delivery: Nasal Cannula (11/22/23 0800) Constitutional: no acute distress, (+) chronically ill CV: normal rate and rhythm, no murmur, gallops or rub Chest: normal respiratory effort, decreased at bases bilaterally Abdomen: normal: soft, bowel sounds normal, no masses, tenderness or organomegaly Extremities: no clubbing, cyanosis, or edema, otherwise grossly normal, warm, and dry Urethral Catheter Regular catheter (Active) Number of days: 1 Peripheral Line Left Antecubital 20 Gauge (Active) Number of days: 1 Peripheral Line Right Antecubital 18 Gauge (Active) Number of days: 1 STUDIES: Encounter Orders Reviewed Assessment and Plan IMPRESSION : Principal Problem: Acute on chronic respiratory failure with hypoxia (HCC) Active Problems: Coronary artery disease involving curyung coronary artery of curyung heart without angina pectoris Essential hypertension with goal blood pressure less than 140/90 Hypertrophic cardiomyopathy (HCC) Graves disease 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 * DIFFERENTIAL AND PLAN: Acute on chronic respiratory failure with hypoxia Hypertrophic cardiomyopathy Acute on chronic decompensated systolic and diastolic heart failure Pulmonary hypertension Encephalopathy secondary to urinary retention Overall complicated patient, doing okay this morning. Encephalopathy has improved after Laws catheter placed and was retaining 1.3 L. has had a longstanding history of sensitivity to diuretics and becomes hypotensive previously requiring midodrine. Was hypotensive overnight and did require up to 500 mL of fluid. Will have Cardiology evaluate patient for further evaluation, may benefit from midodrine however complicated given patient's hypertrophic cardiomyopathy. Continue Lasix 60 mg IV twice daily, patient's dry weight was around 175 lb during previous admission. Will need PT and OT, discharge back to long term facility once medically stable. Chronic medical conditions Graves disease Chronic atrial fibrillation CKD stage 3 PHARMACOLOGIC VTE PROPHYLAXIS: Apixaban Apixaban Tabs CODE STATUS: No Code EXPECTED DISCHARGE DATE: 11/24/2023 I spent a total of 58 minutes coordinating, documenting, and providing care for this patient excluding time spent in the performance of separately billed services. documented in this encounter H&P Notes * Adriana Harris MD - 11/21/2023 6:45 PM EDT Images from the original note were not included. [facility] ACU-115/01 PRESENTING PROBLEM: Altered mental status HPI: 87-year-old female with past medical history significant for hypertrophic cardiomyopathy, combined systolic and diastolic heart failure, mild aortic stenosis, moderate mitral stenosis, hypertension, hyperlipidemia, severe pulmonary hypertension, CKD stage 3, Graves disease, CAD, chronic respiratory failure on 3 L nasal cannula that was weaned off in recent hospitalization, idiopathic pulmonary fibrosis with recurrent admission for heart failure who presented with altered mental status from [place]. Reported administering 3 L of IV fluid for low blood pressure at [place] and she becamemore confused and disoriented. Her recent hospitalization discharge weight was 174 lb and noted that her weight here is 185 lb in ED. patient required high-flow oxygen briefly initially and transitioned to 5 L nasal cannula in ED for hypoxia, of note her oxygen supplements was weaned off on her recent hospitalization however she was started back on 3 L nasal cannula in [place] last week. Laws catheter was placed in ED for distended bladder which put out 1300 mL with improvement of mental status. She received IV Lasix 80 mg, IV cefepime and vancomycin in ED. Patient was alert and awake on my evaluation. No signs of respiratory distress. History obtained bypatient and family at bedside who wish patient to be no code. Subjective Patient's past history, medications, and allergies were reviewed. Objective Physical Exam Most Recent Vital Signs: BP: 95 mmHg/62 mmHg (11/21/231914) Pulse: 47 (11/21/231914) Temp: 36.28 C (11/21/231914) Temp Summary: Temp Min: 35.8 C (96.4 F) Max: 36.3 C (97.3 F) SpO2: 100 % (11/21/231824) O2 flow rate: 3 L/MIN (11/21/231914) Supplemental O2 Delivery: Nasal Cannula (11/21/231914) Urethral Catheter Regular catheter (Active) Number of days: 0 Peripheral Line Left Antecubital 20 Gauge (Active) Number of days: 0 Peripheral Line Right Antecubital 18 Gauge (Active) Number of days: 0 STUDIES: Encounter Orders Labs and other studies reviewed with pertinent findings noted below: Chest x-ray with vascular congestion and small right pleural effusion. Possible bilateral airspace opacities concerning for pneumonia. RP panel negative. Troponin 74 flat. Lactate 2.7. Creatinine 1.7 which is slightly above baseline. Sodium 130. Potassium 3.4. 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 * DIFFERENTIAL AND PLAN: Acute on chronic respiratory failure with hypoxia HFpEF with acute exacerbation/vascular congestion Urinary retention - status post IV Lasix 80 mg in ED. Continue with IV Lasix 60 mg twice daily and titrate according to response - status post Laws placed in ED. Maintain Laws for now - I&Os and daily weights - continue oxygen supplement, titrated down to 3 L. Wean as able - monitor on tele ? Pneumonia - received cefepime and vancomycin in ED. Will start Levaquin (penicillin allergy) and follow up onprocalcitonin, MRSA swab - speech/swallow eval in a.m. Altered mental status likely secondary to urinary retention - improved after Laws placement - maintain Laws for now - family reported patient required straight catheterization recent hospitalization. 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 documented in this encounter Consult Notes * Ruma Montelongo, CCC-WALL STEAMER - 11/22/2023 8:56 AM EDTAssociated Order(s): ADULT SPEECH THERAPY CONSULT IP (ACUTE CARE REHAB) CLINICAL BEDSIDE SWALLOW EVALUATION - Speech [place] [address] [facility] [address] Name: Maria Luisa Recinos Location: [facility] ACU-[id number] Date: 11/22/2023 Time: 8:46-8:56 AM Patient Identified by: Name and date Diagnosis: Acute on chronic congestive heart failure, unspecified heart failure type (HCC) Deficits requiring Speech Therapy: swallow eval Plan of Care Date: n/a Patient Status: Inpatient Insurance: Payor: MEDICARE / Plan: MEDICARE A AND B / Product Type: *No Product type* / Treatment provided: Dysphagia Evaluation 10 Minutes GENERAL INFORMATION: Admission Date: 11/21/23 Referring Physician: Adriana Harris MD Pertinent Medical History: Per chart review, "87-year-old female with past medical history significant for hypertrophic cardiomyopathy, combined systolic and diastolic heart failure, mild aortic stenosis, moderate mitral stenosis, hypertension, hyperlipidemia, severe pulmonary hypertension, CKD stage 3, Graves disease, CAD, chronic respiratory failure on 3 L nasal cannula that was weaned off in recent hospitalization, idiopathic pulmonary fibrosis with recurrent admission for heart failure who presented with altered mental status from [place]. Reported administering 3 L of IV fluid for low blood pressure at [place] and she became more confused and disoriented. Her recent hospitalization discharge weight was 174 lb and noted that her weight here is 185 lb in ED. patient required high-flow oxygen briefly initially and transitioned to 5 L nasal cannula in ED for hypoxia, of note her oxygen supplements was weaned off on her recent hospitalization however she was started back on 3 L nasal cannula in [place] last week". Date of Intubation: n/a Date of Extubation: n/a Current Diet/Dysphagia History: soft and bite sized diet, thin liquids Cognitive-Communication: within functional limits Barriers to Learning: None Best Learning Method: Auditory ORAL MECHANISM EXAM: Facial Symmetry: Within functional limits Labial Function: Within functional limits Lingual Function: Within functional limits Velar Function: dnt Dentition: Natural PROTECTIVE MECHANISMS: Volitional Swallow: Within Functional Limits Volitional Throat Clearing: Within Functional Limits Volitional Cough: Within Functional Limits Gag Reflex: Did not test Vocal Quality: Within Functional Limits Tracheostomy Tube: Not Present Ventilator Status: Not Applicable ORAL PREPARATION PHASE: Difficulty securing bolus: No Anterior loss of bolus: No Mastication: within functional limits Tongue thrusting: No ORAL PHASE: Increased oral transit time (greater than 1 sec.): No Oral residue after swallow: No PHARYNGEAL PHASE Delayed/absent swallow: No Nasal penetration: No Wet vocal quality after swallow: No Cough after swallow: No Throat clearing after swallow: No Compensatory Strategies Utilized: slow rate, small bites Additional findings: none Diagnosis/Impressions: Maria Luisa was seated upright in bed with nursing present. She does not report any difficulties with chewing or swallowing at the moment. She does state she is "dry" due to her increased Oxygen requirement. She states that she occasionally has trouble swallowing larger pills but has started taking them in applesauce which has decreased her difficulty. She does state that even inapplesauce she can feel the larger ones occasionally get stuck in her "chest". She was educated on effortful swallow and taking a small sip of liquid or another bite of applesauce to help guide pillsfurther down. She demonstrated understanding. She was seen with her soft and bite sized breakfast tray this morning. She did not demonstrate any overt s/sx aspiration on solid foods or thin liquid via straw during this evaluation. Due to increased work of breathing during eating, soft and bite sized is recommended at this time. Rehab Potential: good Recommendations/Plan: Videofluoroscopy: Not indicated Diet Level: Soft and bite sized Liquid Level: Thin Presentation of Medication: Whole in medium Positioning: Seated with 90-degree hip flexion Level of Supervision: None Compensatory Techniques to be Utilized During PO Intake: Small Bites/Sips and Alternate Solids & Liquids Swallowing Treatment: Not indicated Treatment Goals: n/a The above information was discussed with the patient/family. Yes The patient/family was in Agreement Additional Recommendations: none at this time Ruma Montelongo M.S., CCC-WALL STEAMER Speech Language Pathologist [facility] 11/22/2023 * Kallie Holder Autumn, STOCK PULLER - 11/22/2023 8:13 AM EDTAssociated Order(s): CARDIOLOGY CONSULT IP CONSULT - Cardiology [facility] [address] [facility] [address] Name: Maria Luisa Recinos Location: [facility] Date: 11/22/2023 Time: 8:13 AM REQUESTING SERVICE: ACU Hospitalist- Dr. Todd REASON FOR CONSULT: 87 yr old female with complex cardiac hx, recently at [facility] on cards service, presenting with HF, afib with svr, symptomatic hypotension; please eval. PRESENTING PROBLEM: Maria Luisa Recinos [facility] is seen in consultation for hypertrophic cardiomyopathy and CHF, valvular heart disease and respiratory failure . HPI: Maria Luisa Recinos is an 87 yo female with a complex cardiac history to include Combined systolic and diastolic heart failure, HOCM, Valvular heart disease: Mitral stenosis and regurgitation, Aortic valve regurgitation, Tricuspid regurgitation, Hypertensive heart disease with CKD III and Anemia, Chronic atrial fibrillation, Bradycardia, ILD/Pulmonary fibrosis, pulmonary hyperte nsion, chronic hyponatremia. Mrs. Recinos has had multiple admissions for heart failure exacerbation within in the past 4 months.She was last discharged on November 13 from [facility] after aggressively being diuresed and weaned down onoxygen. Discharge weight 79.3 kg (174 lb 14.4 oz). Discharged to [facility] on Torsemide 40 mg twice daily; spironolactone, empagliflozoin. Remained off beta vikki due to bradycardia, atrial fibrillation with slow ventricular rate response. Patient presented to our ER yesterday for acute on chronic respiratory failure, CHF exacerbation, urinary retention and altered mental status. She received 3 Liters of fluids at the halfway. Required insertion of laws catheter with immediate output of 1.2 Liters improving the abdominal discomfort patient was experiencing. Weight on admission 84 kg (185 lb). Patient initially required High Flow Oxygen and titrated from 5 Liters NC to 3 Liters NC which she remains on at present. Lasix 80 mgIVP was given along with IV cefepime and vancomycin empirically for sepsis. This morning patient found in bed with head elevated at 50 degrees. She appears somewhat short of breath on 3 L NC. She c/o feeling lightheaded with blood pressure 81/43. She denies chest pain or discomfort, palpitations, dizziness. She ate a good breakfast, reports feeling a little full across herabdomen. She can not speak to leg swelling. This morning's lasix has been held due to hypotension. Patient has been on midodrine in the past; however, this was discontinued at time of last discharge. PAST MEDICAL HISTORY: Past Medical History: Diagnosis Date AAA (abdominal aortic aneurysm) ([facility]) Acute combined systolic and diastolic CHF, NYHA class 1 (HCC) 10/03/2023 Aortic stenosis, mild Atrial fibrillation (HCC) CAD (coronary artery disease) Chronic respiratory failure (HCC) Graves disease Hypertrophic cardiomyopathy (HCC) Mixed hyperlipidemia Moderate mitral stenosis Nonrheumatic mitral valve stenosis Primary hypertension Pulmonary hypertension ([facility]) Second hand smoke exposure Severe tricuspid regurgitation Supplemental oxygen dependent PAST SURGICAL HISTORY: Past Surgical History: Procedure Laterality Date APPENDECTOMY W/OTHER PROCEDURE CORONARY ANGIOGRAPHY W/LEFT HEART CATH Right 10/04/2021 CORONARY ANGIOGRAPHY W/LEFT HEART CATH performed by Rodri Jacobs MD at [facility];W/HYSTERECTOMY NC CHOLECYSTECTOMY FAMILY HISTORY: Family History Problem Relation Age of Onset Diabetes Mother Stroke Mother Heart Disorder Father 63 NE Hypertension Brother Heart Disorder Aunt (Unspecified) NE Heart Disorder Uncle (Unspecified) NE Hypertension Son Hypertension Daughter SOCIAL HISTORY: Social History Tobacco Use Smoking status: Never Passive exposure: Past Smokeless tobacco: Never Tobacco comments: Parents smoked in home growing up and then work place up until 1967 Vaping Use Vaping Use: Never used Substance Use Topics Alcohol use: Not Currently Drug use: Never ALLERGIES: Amoxicillin, Gatifloxacin, and Latex ROS: Constitutional: (+) weight change, (+) weakness, and (+) fatigue Cardiovascular: (-) negative: no chest pain, syncope, or palpitations, (+) orthopnea, and (+) lowerextremity edema Pulmonary: (+) dyspnea Abdominal/GI: (-) abdominal pain and (-) nausea Musculoskeletal: (-) negative: no pain PHYSICAL EXAMINATION: Most Recent Vital Signs: BP: 89 mmHg/58 mmHg (11/22/23 0900) Pulse: 67 (11/22/23 0900) Temp: 36.06 C (11/22/23 0800) Temp Summary: Temp Min: 35.8 C (96.4 F) Max: 36.3 C (97.3 F) SpO2: 97 % (11/22/23899) O2 flow rate: 3 L/MIN (11/22/23799) Supplemental O2 Delivery: Nasal Cannula (11/22/23899) Vital Signs Last 24 Hours: Systolic BP: Most Recent Systolic BP Av.2 mmHg Min: 71 mmHg Max: 109 mmHg Temperature: Most Recent Temperature Av.1 C Min: 35.78 C Max: 36.28 C Pulse: Pulse Av.3 Min: 47 Max: 67 Respirations: Resp Av.9 Min: 9 Max: 24 SpO2: SpO2 Av.9 % Min: 81 % Max: 100 % Constitutional: (+) dyspneic, able to hold a conversation, responding appropriately Neck: supple, (+) elevated JVP CV: Irregular rhythm, borderline normal rate, occasional bradycardia , intact distal pulses, (+) systolic murmurs heard across the precordium Chest: normal respiratory effort, (+)fine rales- right base, otherwise CTA, (+) mildly tachypneic, (+) supplemental oxygen 3 L via NC Abdomen: soft, normal bowel sounds, no tenderness, nondistended Extremities: no clubbing, no cyanosis, (+) pitting bilateral ankle edema Skin: warm, dry: Neuro: alert, reflexes normal and symmetric, sensory normal, (+) oriented to person and place, follows commands, communicates effectively. Intake/Output Summary (Last 24 hours) at 11/22/2023 0817 Last data filed at 11/22/2023 0500 Gross per 24 hour Intake 1858.89 ml Output 2175 ml Net -316.11 ml LABS: Labs reviewed as indicated below: Latest Reference Range & Units 11/14/23 06:04 11/21/23 15:49 11/21/23 18:32 11/21/23 20:16 11/22/23 03:44 11/22/23 05:00 Sodium 135 - 146 mmol/L 123 (L) 130 (L) 134 (L) Potassium 3.5 - 5.1 mmol/L 3.3 (L) 3.4 (L) 3.2 (L) Chloride 98 - 107 mmol/L 81 (L) 92 (L) 96 (L) CO2 22 - 32 mmol/L 30 23 25 BUN 6 - 20 mg/dL 88 (H) 60 (H) 52 (H) Creatinine 0.5 - 1.0 mg/dL 1.6 (H) 1.7 (H) 1.6 (H) Estimated Glomerular Filtration Rate >=60 mL/min 32 (L) 29 (L) 32 (L) Anion Gap 7 - 15 mmol/L 12 15 13 Glucose 70 - 120 mg/dL 111 126 (H) 75 Calcium 8.4 - 10.2 mg/dL 10.7 (H) 9.4 8.7 Magnesium 1.5 - 2.6 mg/dL 2.4 1.9 Bicarbonate, Whole Blood 23.0 - 31.0 mmol/L 27.5 Protein 6.0 - 8.3 g/dL 7.0 6.3 Lactate, Whole Blood 0.4 - 2.0 mmol/L 2.8 (H) 2.8 (H) 3.5 (H) 1.8 (L): Data is abnormally low (H): Data is abnormally high Latest Reference Range & Units 11/14/23 06:04 11/17/23 04:20 11/18/23 05:00 11/21/23 15:49 11/22/23 05:00 CBC Rpt ! Rpt ! (E) Rpt ! (E) Rpt ! Rpt ! WBC 4.00 - 10.80 K/uL 8.28 8.26 10.06 RBC 3.85 - 5.15 M/uL 3.60 3.41 3.35 HGB 12.0 - 15.3 g/dL 9.4 (L) 9.7 (L) 9.2 (L) 9.0 (L) HCT 36.0 - 45.2 % 30.3 (L) 30.9 (L) 30.1 (L) MCV 81.5 - 97.5 fL 84.2 90.6 89.9 MCH 27.0 - 34.0 pg 26.1 27.0 26.9 MCHC 32.0 - 36.0 g/dL 31.0 29.8 29.9 RDW 11.5 - 15.5 % 16.5 22.0 21.6 PLT 140 - 400 K/uL 383 317 264 MPV 6.6 - 11.1 fL 9.2 9.4 9.1 CBC WITH WBC DIFFERENTIAL Rpt ! Absolute Neutrophils 1.80 - 7.70 K/uL 7.00 Absolute Lymphocytes 1.00 - 4.80 K/ul 0.62 (L) Absolute Monocytes 0.00 - 1.10 K/uL 0.32 Absolute Eosinophils 0.00 - 0.70 K/uL 0.24 Absolute Basophils 0.00 - 0.20 K/uL 0.02 !: Data is abnormal (L): Data is abnormally low Rpt: View report in Results Review for more information (E): External lab result Latest Reference Range & Units 11/03/23 19:21 11/21/23 15:49 11/22/23 05:00 Albumin 3.8 - 5.0 g/dL 3.4 (L) 3.4 (L) 3.0 (L) AST 10 - 35 U/L 46 (H) 46 (H) 40 (H) ALT 10 - 35 U/L 27 35 29 Alkaline Phosphatase 35 - 130 U/L 170 (H) 166 (H) 148 (H) Bilirubin, Total <=1.2 mg/dL 1.8 (H) 1.5 (H) 1.4 (H) (L): Data is abnormally low (H): Data is abnormally high PERTINENT TESTIN11/21/2023 EKG: Atrial fibrillation with slow ventricular response, 54 bpm 11/21/2023 Chest xray: IMPRESSION 1. Indistinct airspace opacities in both lung bases, which may pneumonia or aspiration in the correct clinical setting. 2. Probable small right pleural effusion. 3. Pulmonary vascular congestion. 11/02/2023 TTE: Interpretation Summary The examination is [...] is present. 10/04/2021 Cardiac Catheterization: Normal coronaries. IMPRESSION and PLAN: Principal Problem: Acute on chronic respiratory failure with hypoxia (HCC) (POA: Yes) 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) (POA: Yes) CAP (community acquired pneumonia) (POA: Yes) Hypotension Active Problems: Chronic atrial fibrillation (HCC) (POA: Yes) Hypertrophic cardiomyopathy (HCC) (POA: Yes) Graves disease (POA: Yes) Pulmonary HTN (HCC) (POA: Yes) CKD (chronic kidney disease) stage 3, GFR 30-59 ml/min (HCC) (POA: Yes) Ms. Recinos was seen in collaboration with Dr. Solorzano today. Plan of care including complexity andmanagement of this patient requires higher level of care. This has been communicated to hospitalistservice-Dr. Todd during collaboration of care discussion between him and Dr. Solorzano. Recommend patient be transferred to [facility]. Please refer to attestation from Dr. Solorzano for any additional details. POA = Present On Admission Associated attestation - Bimal Solorzano MD - 11/22/2023 10:13 PM EDT I have reviewed the advanced practitioner's documentation on the date of service referenced in note, and I agree with, and take responsibility for the plan of care. I spent a total of 30 minutes coordinating, documenting, and providing care for this patient excluding time spent in the performance of separately billed services or time spent by another provider/QHP. Bimal Solorzano MD ACU [facility], Acute Care Unit, [place] [facility] 1st Floor [address] [facility] [id number] documented in this encounter Nursing Notes * Jessica Conway RN - 11/23/2023 2:42 AM EDT Report called to [facility] HFAM 852. Pt left via ALS. * Edyta Sullivan RN - 11/23/2023 2:30 AM EDT IP TO PERIOP HANDOFF COMMUNICATION NOTE [facility] [address] [facility] [address] Name: Maria Luisa Recinos AGE: [age] year old Location: [facility]- Date: 11/23/2023 Attention to: [facility] Report from: Edyta Sullivan RN Patient arriving via: Stretcher Time of Call: 0220 Phone Ext.: Reason for SBAR handoff: Transfer Consent: Emotional/Personal Events & Special Needs: NA Allergies: Amoxicillin, Gatifloxacin, and Latex PMH: Past Medical History: Diagnosis Date AAA (abdominal [...] exposure Severe tricuspid regurgitation Supplemental oxygen dependent PSH: Past Surgical History: Procedure Laterality Date APPENDECTOMY W/OTHER PROCEDURE CORONARY ANGIOGRAPHY W/LEFT HEART CATH Right 10/04/2021 CORONARY ANGIOGRAPHY W/LEFT HEART CATH performed by Rodri Jacobs MD at CARD[facility] LABS [facility] LAP;W/HYSTERECTOMY NC CHOLECYSTECTOMY Isolation: Situation/Background Admission Date: 11/21/2023 Patient Service: Hospitalists Attending: Tim Todd DO Level of Care: Med Surg [3] Assessment Vital Signs: BP: 80/45 (11/23/23 0210) Temp: 36 C (96.8 F) (pt being transferred to [facility]) (11/23/23 0210) Pulse: 71 (11/23/23 0210) Resp: 17 (11/23/23 0210) SpO2: 95 % (11/23/23 0210) O2 flow rate: 1 L/MIN (11/22/23 1337) Glucose (Bedside): 106 (11/23/23 0006) Lines: Urethral Catheter Regular catheter (Active) Site Assessment Clean 11/22/232146 Securement Method Securing device (Describe) 11/22/232146 Catheter secured to leg? Yes 11/22/232146 Catheter bag below bladder? Yes 11/22/232146 Has IUBC been removed? (If yes, ensure the order is discontinued.) No, acute urinary retention 11/22/232146 IUBC Tubing Disconnected This Shift? No 11/22/232146 Collection Container Standard drainage 11/22/232146 Urine Description Clear;Yellow 11/22/232146 Output (mL) 600 mL 11/23/23 0220 Number of days: 2 Peripheral Line Left Antecubital 20 Gauge (Active) Status Capped/Locked;Alcohol disinfectant cap 11/22/232328 Tubing Changed N/A 11/22/232150 Phlebitis Scale 0 11/22/232150 Infiltration Scale 0 11/22/232150 Site Description (Other) Without redness, swelling or drainage 11/22/232150 Site Intervention Flushed 11/22/232150 Dressing Assessment Dressing clean, dry, and intact 11/22/232150 Dressing Intervention None required 11/22/232150 Number of days: 2 Restraints: No orders of the defined types were placed in this encounter. Labs: Please see Lab Flowsheet for lab values. Lab Comments: NA Diet: Orders Placed This Encounter Procedures Adult Complex Diet : Soft & Bite Sized Food, Level 6 NPO: Additional Diet Information: NA Intake and Output: Intake/Output Summary (Last 24 hours) at 11/23/2023 0230 Last data filed at 11/23/2023 0220 Gross per 24 hour Intake 1340 ml Output 2900 ml Net -1560 ml Belongings Remaining with Patient: dentures,glasses What were AM meds taken with: NA Time of last pain medication: NA Med: NA Time of last antibiotic: NA Med: NA Time of last skin assessment: 11/22/23 Pressure injuries or areas of concern: NA Neurological: Neuro WNL: WNL - within normal limits (11/22/232146) Speech: Clear (11/22/232146) Level of Consciousness: Alert (11/22/232146) RUE Motor Strength: 5-Active movement with full resistance (11/22/232146) RLE Motor Strength: 4-Active movement with some resistance (11/22/232146) LUE Motor Strength: 5-Active movement with full resistance (11/22/232146) LLE Motor Strength: 4-Active movement with some resistance (11/22/232146) Coma Score: 15 (11/22/232146) Respiratory: Respiratory WNL: X - Exceptions to WNL as documented below (11/22/232146) Cough: None (11/22/232146) Depth/Rhythm: Regular (11/21/23 1930) Dyspnea Occurance: With Exertion (11/22/232146) Effort: Unlabored (11/22/23 0900) Oxygen therapy/ Mechanical vent Supplemental O2 Delivery: Room Air, None (11/23/23 0210) O2 %: 50 % (11/21/23 1630) O2 flow rate: 1 L/MIN (11/22/23 1337) NIV/CPAP Mask/Prongs: Prongs (11/21/23 1550) O2 Device Skin Integrity : Skin unaffected (11/21/23 1550) Cardiac: Cardiovascular WNL: X - Exceptions to WNL as documented below (11/22/232146) Heart Sounds: S1;S2 (11/22/232146) Rhythm: AFib (11/22/23 2300) Extremities: +Sensation;Right;Left;Upper;Lower (11/22/232146) Pulses Right: Radial +;Dorsalis Pedis +;Palpable (11/22/232146) Pulses Left: Radial +;Palpable;Dorsalis Pedis + (11/22/232146) Edema Location: Both; Lower extremities (11/22/232146) Edema Assessment: Trace (11/22/232146) Capillary Refill: 3 sec (11/22/232146) GI: GI WNL: WNL - within normal limits (11/22/232146) Abdomen: Soft;Bowel sounds present all quadrants (11/21/231929) : WNL: X - Exceptions to WNL as documented below (11/22/232146) Urine Description: Clear;Yellow (11/22/23899) Urethral Catheter Regular catheter (Active) Site Assessment Clean 11/22/232146 Securement Method Securing device (Describe) 11/22/232146 Catheter secured to leg? Yes 11/22/232146 Catheter bag below bladder? Yes 11/22/232146 Has IUBC been removed? (If yes, ensure the order is discontinued.) No, acute urinary retention 11/22/232146 IUBC Tubing Disconnected This Shift? No 11/22/232146 Collection Container Standard drainage 11/22/232146 Urine Description Clear;Yellow 11/22/232146 Output (mL) 600 mL 11/23/23 0220 Number of days: 2 Integumentary: Integumentary WNL: X - Exceptions to WNL as documented below (11/22/232146) Skin Description: Cool;Dry (11/22/23 09) Skin Color: Other-Describe;Flesh Tone (Purple nail beds) (11/21/23 1930) Skin Lesion: Ecchymosis (scattered) (11/22/232146) Reji Score (auto-calculation): 20 (11/22/23 2300) Additional Assessment Information: Patient sent VIA ALS with all belongings (sweater, glasses,dentures,phone) * Edyta Sullivan RN - 11/21/2023 8:14 PM EDT Dual Licensed Skin Assessment completed by Devon Sullivan RN and Jessica RN. The patient is/has a N/A Skin Breakdown (includes non blanchable erythema): No documented in this encounter ED Notes * Arden River MD - 11/21/2023 3:50 PM EDT HISTORY OF PRESENT ILLNESS Maria Luisa Recinos is a 87 year old female who presents to the ED for evaluation of Altered Mental Status. The patient was seen at 11/21/23 1533. Patient presents via EMS accompanied by family for evaluation of altered mental status. She was recently admitted to [place] then transferred to [facility] for volume overload. She was discharged at a weight of 174. She was sent to a rehab facility and received about 3 L of normal saline in her torsemide was discontinued because she washaving low blood pressures there. For the last 3 days she has been progressively more confused and disoriented. She is normally conversational and alert and oriented. Over the last few days she has been disoriented. She has not fallen recently. She is gained 10 lb in the last 3 days according to family. DNR/DNI per family The patient's allergies, past history, and medications were reviewed. PHYSICAL EXAM Initial Vitals (see all): BP 94/50 | Pulse 49 | Resp 18 | Temp 96.4 | O2 93 %, Room Air, None | Weight 84 kg | Height 154.9 cm | BMI 34.99 kg/m2 Initial Pain Assessment (see all): 0 (no pain)/10 ([facility] Adult Scale 0-10) Physical Exam Constitutional: Appearance: She is ill-appearing. Comments: Intermittently delirious HENT: Head: Normocephalic and atraumatic. Right Ear: External ear normal. Left Ear: External ear normal. Nose: Nose normal. Mouth/Throat: Mouth: Mucous membranes are moist. Pharynx: Oropharynx is clear. Eyes: Extraocular Movements: Extraocular movements intact. Pupils: Pupils are equal, round, and reactive to light. Cardiovascular: Rate and Rhythm: Bradycardia present. Rhythm irregular. Pulses: Normal pulses. Heart sounds: Normal heart sounds. Comments: Positive JVD Pulmonary: Effort: Pulmonary effort is normal. Comments: Fine crackles in the bases bilaterally Abdominal: General: Abdomen is flat. Bowel sounds are normal. Palpations: Abdomen is soft. Tenderness: There is abdominal tenderness (Suprapubic tenderness to palpation). Musculoskeletal: Cervical back: Normal range of motion. Right lower leg: Edema (Pitting to knee) present. Left lower leg: Edema (Pitting to knee) present. Skin: General: Skin is warm and dry. Capillary Refill: Capillary refill takes less than 2 seconds. Findings: Rash (Petechial rash on anterior abdomen which family reports is new) present. Neurological: General: No focal deficit present. Mental Status: She is oriented to person, place, and time. Psychiatric: Mood and Affect: Mood normal. Behavior: Behavior normal. PROCEDURES AND TREATMENTS ED Orders | ED Results MEDICAL DECISION MAKING Nursing notes and vital signs were reviewed. ED Course as of 11/21/23 1845 e Nov 21, 2023 1559 CBC with WBC Differential(!) No leukocytosis, stable anemia, no thrombocytopenia [IC] 1602 Significant improvement in suprapubic pain and delirium after Laws catheter placed [IC] 1603 Lactate, Whole Blood with Reflex if Abnormal(!) Lactic acidosis lactate of 2.8 [IC] 1604 Blood Gas, Venous(!) Mild alkalosis [IC] 1621 Urinalysis, Reflex to Culture (Not for Neutropenic Patients)(!) Urine negative for infection [IC] 1622 aPTT(!): 45 [IC] 1622 Troponin T, High Sensitivity(!) Mildly elevated from patient's baseline, will repeat [IC] 1622 Comprehensive Metabolic Panel(!) Mild reduction in renal function patient's baseline, mild hyponatremia, mild hypochloremia hypo kalemia, will replete orally given use of high-dose Lasix, mild reduction in albumin at 3.4, otherwise largely unremarkable hepatic function panel [IC] 1646 XR Chest 1 View 1. Indistinct airspace opacities in both lung bases, which may pneumonia or aspiration in the correct clinical setting. 2. Probable small right pleural effusion. 3. Pulmonary vascular congestion. [IC] 1711 Troponin T, High Sensitivity(!) Repeat troponin flat [IC] 1723 Respiratory Pathogen Panel, PCR RVP negative [IC] 1723 EKG demonstrates atrial fibrillation at a rate of 54, left axis deviation, nonspecific ST changes in the lateral leads noted [IC] ED Course User Index [IC] Arden River MD Differential Diagnoses Based on my history, physical exam, and evaluation, the differential includes, but is not limited, to the following diagnoses: CHF exacerbation, pulmonary edema, ACS, cystitis, pneumonia, encephalopathy. 87-year-old female presenting for evaluation of altered mental status. On arrival patient has hypoxic with increased work of breathing despite 5 L nasal cannula, transitioned to high-flow nasal cannula. Sepsis alert initiated. Fluids deferred as patient has evidence of gross volume overload. Laws catheter immediately placed by nursing staff with significant improvement in her abdominal discomfort and in her work of breathing which put out approximately 1.2 L initially. Provided with 80 mg IV Lasix. Covered empirically with cefepime and vancomycin. Able to be deescalated from high-flow nasal cannula to 5 L nasal cannula. Laboratory studies significant as documented above. Patient's case wasdiscussed with on-call hospitalist, Dr. Harris, who evaluated the patient and agreed with and accepted the admission. Amount and/or Complexity of Data Reviewed Labs: ordered. Decision-making details documented in ED Course. Radiology: ordered. Decision-making details documented in ED Course. ECG/medicine tests: ordered. Risk Prescription drug management. Decision regarding hospitalization. Clinical Impressions Screening for cardiovascular condition Sepsis (HCC) Acute on chronic congestive heart failure, unspecified heart failure type (HCC) Acute urinary retention Disposition Admitted. I discussed the management of this patient with the admitting provider and I made a decision to admit the patient. Admission Order Ordered Status . 11/21/23 1746 Admit for Inpatient Services (incl ZPO) ONCE Completed Arden River * Yahaira Almodovar RN - 11/21/2023 3:16 PM EDT MICU 18 reports initially called for bradycardia, halfway staff reported pt recently discharged from [facility] a week ago after CHF exacerbation for rehab and has had altered mental status for the past couple days. They reported she became hypoxic during PT today and placed her on 5L via NC. documented in this encounter Miscellaneous Notes * Care Plan - Ivon Oshea RN - 11/22/2023 1:43 PM EDT Clinical Goal(s): Patient will remain free of fall/injury this shift. (11/22/23 0700) Possible barriers to meeting goal(s)/advancing plan of care: ambulatory dysfunction, acute on chronic respiratory dysfunction, MADDOX Stability of the patient: Moderately stable - low risk of patient condition declining or worsening Summary regarding today's goal(s): Met: Recommendations: continue current POC * Ancillary Progress Note - Dayna Kim RN - 11/22/2023 11:49 AM EDT CARE MANAGEMENT - ADULT INITIAL SCREENING [place] [address] [facility] [address] Name: Maria Luisa Recinos Location: [facility] ACU-111/01 Date: 11/22/2023 Time: 11:51 AM Discussed patient with the interdisciplinary care team. This Social Media Sr Strategy Manager performed a chart review and met with patient and capri Hernández at bedside to complete admission screen and assessed needs for transition planning. The health care administrator role and services were explained and emotionalsupport was provided. Chief Complaint: Altered Mental Status Channel Manager met with Pt in order to complete care management assessment and to discuss DC planning. Pt was placed in Inpatient on 11/21/2023 from home after presenting with Acute on Chronic Respiratory Failure with hypoxia. Pt describes having an intact family support system. Pt's medical decision maker has been identified as being Juan Pablo West, who is involved with the DC planning process. Per review of the medical record, pt has no admitting MH Dx. Pt denies any current or prior Hx of substance abuse. Pt reports being able to read and write. Pt denies difficulty managing own medications. Pt's primary pharmacy has been identified as being [facility] when she is at [facility] and [facility] in [place] when she is home. Pt denies difficulty completing ADLs prior to admission. Pt has 3L of 02 at baseline provided by [facility] and is anticipated to resume upon discharge. Pt had DME of which includes a rolling walker and is anticipated to resume upon discharge. Prior Living Arrangements What was your living situation prior to admission/observation?: At a Group Home ([facility])(11/22/23 114) Living Quarters: Nursing Home Facility (11/22/231144) Number of steps to enter living quarters:: none (11/22/231144) Do you have serious difficulty walking or climbing stairs? (5 years old or older): Yes (11/21/23 1855) History of falling: No (11/22/23 08) Prior Level of Functioning Describe the patient's ability prior to admission/observation to perform ADLs: Completely dependent(11/22/231144) Primary caregiver/facility (name/relationship): [facility] (11/22/231144) Describe the patient's mobility status prior to admission: Patient requires assistance with ambulation (11/22/231144) Patient uses assistive device: Yes (11/22/231144) If yes, choose:: Walker (11/22/231144) Caregiver Information Patient Contacts Name Relation Home Work Mobile Betty Price Adult Child [phone] Juan Pablo Recinos Adult Child [phone] Risk Stratification/Psychosocial/Care Gaps Risk Stratification Psycho Social / Medical Concerns Identified: Adjustment to illness/injury;Multiple Comorbidities (11/22/231144) Accessed Neighborly to connect patients to social care resources: No (11/22/231144) OBRA or OPTIONS needed for placement: No (11/22/231144) Readmission Risk Score: 54.68 (11/22/23 0801) Prior to Admission Services Services Prior to Admission INVESTMENT OFFICER Services (Services received within the last 30 days with exception, Psych within last two years): Durable Medical Equipment (11/22/231144) INVESTMENT OFFICER Durable Medical Equipment (DME) in home: Walker Standard;Oxygen (name) - Comment (11/22/231144) DME Name: Standard Walker, Pt wears 3L of 02 provided by [facility] at baseline (11/22/231144) [place] Dept[employer] of Aging (PDA) Waiver Program: N/A (11/22/23 1145) INVESTMENT OFFICER Transportation (Services received within the last 30 days): Family/Friends Personal Vehicle (11/22/23 1145) Outpatient Social Media Sr Strategy Manager: Patient Care Team: Dayna Salinas RN as Information Systems Security Developer (Registered Nurse) Patient/Family Expectations: Return to [facility] Once deemed medically appropriate, it is anticipated patient will DC to [facility] without needs pending continued medical work-up/evaluations/findings. Pt has 3L of 02 at baseline provided by [facility] and is anticipated to resume upon discharge. Pt had DME of which includes a rolling walker and is anticipated to resume upon discharge. Channel Manager will continue to meet with treatment team in order to discuss DC planning/needs. Channel Manager will continue to follow for any identified needs and or concerns which may arise. For further screening information, please refer to the Care Management flow document. * Ancillary Progress Note - Dayna Kim RN - 11/22/2023 11:38 AM EDT Care Management Discharge Planning Note: Channel Manager spoke with patient and patients daughter Betty who advised they spoke with [facility] this am and confirmed with the site coordinator that Pt is a bed hold. Pt daughter Betty advised that she would be able to transport patient on Monday if needed. * Ancillary Progress Note - Dayna Kim RN - 11/22/2023 11:21 AM EDT Care Management Discharge Planning Note: Channel Manager called and spoke with Mariely, Nursing Needle Loom Weaver at [facility] at [phone] and provided update. Channel Manager questioned if patient is a bed hold. Mareily advised she does not believe that patient is a bed hold. The site coordinator was with another family, she will call back to discuss if patient will be able to be accepted back to [facility]. Channel Manager advised we are anticipating patient will be medically clear on Monday. * Respiratory Progress Note - Sai Puente RRT - 11/22/2023 8:42 AM EDT Maria Luisa consulted for potential enrollment into pulmonary rehabilitation.Observing the findings from the medical team the patient does have interstitial lung disease and significant cardiac.. Past consults from pulmonary have not lead to a referral to potential enter the program. Per current inpatient provider patient has limited mobility and currently resides in long term facility. Channel Manager will wait for recommendations from future pulmonary consults Sai Puente RRT * Care Plan - Jessica Conway RN - 11/22/2023 6:18 AM EDT Clinical Goal(s): Patient will maintain SPO2 above 90% (11/21/23 2300) Possible barriers to meeting goal(s)/advancing plan of care: patient diagnosis Stability of the patient: Moderately stable - low risk of patient condition declining or worsening Summary regarding today's goal(s): Met: SPO2 above 90 Recommendations: Continue POC * Progress Notes - Non-Billable - Mick Bustos MD - 11/22/2023 3:43 AM EDT Brief Progress Note I saw Ms. Recinos this evening when it was noted patient was hypotensive and symptomatic although she was reported to be intermittently delirious on arrival which improved after catheter placement in the ER for urinary retention. She does seem to be lethargic at bedside. Patient was placed in Trendelenburg with improvement in blood pressure and mentation. She was admitted earlier this evening for CHF exacerbation, less likely sepsis. It is reported that after her admission to the cardiology service at [facility] earlier this month, patient returned to [facility] where she was becoming hypotensive which prompted the discontinuation of her torsemide and intermittent fluid boluses. She became increasingly altered and started gaining weight with associated respiratory distress prompting her to come to [facility] ER. She was started back on her lasix given her significant weight gain and signs of acute CHF exacerbation. She had a laws catheter placed with return of 1.3L with improvement in mental status. She was admitted to our service and overnight has had great output from the lasix with about 1.4L of urine output although she has become increasingly lethargic and hypotensive. Her lactate has risen from 2.8 on arrival to 3.5 and now 1.8. I think patient became hypotensive given large fluid shifts associated with her diuresis and bladder emptying earlier this evening. She did have some fleeting moments of chest tightness this evening as well. Plan will be to give back a small amount of fluid with 250 cc bolus X 2. As per review of prior admits, she has had some hypotension while being diuresed and has been given diuretic holidays as well. At one point, patient was also started on midodrine for BP support, recently held at discharge from cardiology service. Will again check EKG and troponins given chest tightness. Cardiology consult in the AM. Close hemodynamic monitoring. * Ancillary Progress Note - Leigha Hart RRT - 11/21/2023 10:48 PM EDT PATIENT DRIVEN PROTOCOL - Respiratory Care Services [place] [address] [facility] [address] Name: Maria Luisa Recinos Location: [facility] ACU-111/01 Date: 11/21/2023 Time: 10:49 PM Patient Driven Protocol Summary: Initial evaluation performed. This Treatment Plan and medications will be reviewed by the Primary Care Team for any contraindications. Respiratory Care Treatment Plan Aerosol Therapy Treatment:: Inhaler(s) QDAY with Breo Ellipta (Fluticasone furoate 100 mcg and Vilanterol 25 mcg inhalation powder) / 1 inhalation. to suppress bronchial inflammation and edema by the use of systemic steroid sparing therapy. . The patient will be re-evaluated: No re-evaluation needed. Indications for treatment met. The Triage Level is: (Assessment Score = 0 - 5) Level 5. Triage Level Definitions: Level 1 Severe Respiratory/Airway [...] Medical Record Assessment Clinical Findings Pulmonary Status: 0 - No History Surgical Status: 0 - No Surgical History Chest X-Ray: 2 - Infiltrates and/or Atelectasis Assessment Score: 2 Patient Assessment Clinical Findings Respiratory Pattern: 0 - RR 12 - 20; Patient only gets breathless with strenuous exercise. Breath Sounds: 2 - Diminished bilaterally Cough Effectiveness: 0 - Strong non-productive Sputum Production: 0 - No sputum production Level of Activity: 0 - Ambulatory O2 needed to keep SpO2 greater than or equal to 92%: 1 - Oxygen 1-3 LPM or FiO2 less than 35% Assessment Score: 3 Total Assessment Score: 5 Breath Sounds: Inspiratory and Expiratory diminished bilaterally.. Cough and Sputum: No cough was present.. CXR: IMPRESSION 1. Indistinct airspace opacities in both lung bases, which may pneumonia or aspiration in the correct clinical setting. 2. Probable small right pleural effusion. 3. Pulmonary vascular congestion.. Vital Signs: Resp: 19 (11/21/232246) Pulse: 54 (11/21/232246) Temp: 36 C (96.8 F) (11/21/231999) BP: 108/59 (11/21/232199) SpO2: 98 % (11/21/232246) Primary Service: Hospitalists. Admitting Diagnosis: Acute on chronic congestive heart failure, unspecified heart failure type (HCC) [I50.9] Pulmonary Diagnosis: COPD. Recommended New home medications/durable medical equipment/outpatient pulmonary/sleep referral * ED Belt Cutter Note - Rex Blackman RN - 11/21/2023 6:40 PM EDT 1300 ml of urine emptied from laws * ED Belt Cutter Note - Rex Blackman RN - 11/21/2023 4:37 PM EDT Phlebotomy at bedside to obtain 2nd set of BC documented in this encounter Plan of Treatment Upcoming Encounters Date Type Department Care Team (Late st Contact Info) Description 12/08/2023 9:00 AM EDT Office Visit Nephrology, Jon[facility] Seth [address] [place] [address] Jef Kaminski MD 200 [facility] [place] [address] 12/13/2023 10:00 AM EDT Office Visit Gastroenterology, [facility] [address] [place] [address] Trenton Cameron CRNP [address] [place] [address] 12/18/2023 8:30 AM EDT Telemedicine Cardiology, [facility] [address] [place] [address] Jennifer Queen PA-C [address] [place] [address] 12/21/2023 10:30 AM EDT Telemedicine Pulmonary Medicine [facility] [address] [place] [address] [address] [place] [address] Yocasta Proctor CRNP [address] [place] [address] 01/31/2024 1:00 PM EDT PulmDiagnostic Pulmonary Function Lab, [place] [id number] [place] [address] Gjrubén, Pulm Fun Tech [address] [place] [address] 02/20/2024 2:20 PM EDT Office Visit Nephrology, [facility] [place] [address] Jef Kaminski MD [address] [place] [address] Pending Results Name Type Priority Associated Diagnoses Date /Time CULTURE, BLOOD Lab STAT 11/21/2023 4:42 PM EDT CULTURE, BLOOD Lab STAT 11/21/2023 3:49 PM EDT Scheduled Orders Name Type Priority Associated Diagnoses Orde r Schedule EKG EKG STAT Screening for cardiovascular condition Perform Now for 1 Occurrences starting 11/21/2023 until 11/21/2023 EKG EKG STAT Sepsis (HCC) Perform Now for 1 Occurrences starting 11/21/2023 until 11/21/2023 Health Maintenance Due Date Last Done Comments [...] documented as of this encounter Medical Devices Not on filedocumented as of this encounter Procedures Procedure Name Priority Date/Time Associated Diagnosis Comments GLUCOSE METER, POINT OF CARE SANDI 11/23/2023 12:07 AM EDT GLUCOSE METER, POINT OF CARE SANDI 11/22/2023 6:12 PM EDT GLUCOSE METER, POINT OF CARE SANDI 11/22/2023 11:59 AM EDT GLUCOSE METER, POINT OF CARE SANDI 11/22/2023 6:10 AM EDT TROPONIN T, HIGH SENSITIVITY STAT 11/22/2023 5:00 AM EDT COMPREHENSIVE METABOLIC PANEL Routine 11/22/2023 5:00 AM EDT CBC Routine 11/22/2023 5:00 AM EDT MAGNESIUM Routine 11/22/2023 5:00 AM EDT LACTATE,WHOLE BLOOD STAT 11/22/2023 3 :44 AM EDT GLUCOSE METER, POINT OF CARE SANDI 11/21/2023 11:55 PM EDT LACTATE,WHOLE BLOOD Routine 11/21/2023 8 :16 PM EDT MRSA SCREEN, PCR Routine 11/21/2023 7:55 PM EDT LACTATE,WHOLE BLOOD STAT 11/21/2023 6 :32 PM EDT TROPONIN T, HIGH SENSITIVITY STAT 11/21/2023 4:42 PM EDT CULTURE, BLOOD STAT 11/21/2023 4:42 PM EDT XR CHEST 1 VIEW STAT 11/21/2023 4:10 PM EDT RESPIRATORY PATHOGEN PANEL, PCR STAT 11/21/2023 3:56 PM EDT MRSA SCREEN, PCR Routine 11/21/2023 3:56 PM EDT URINALYSIS, REFLEX TO CULTURE STAT 11/21/2023 3:54 PM EDT URINALYSIS, REFLEX TO CULTURE (CUP ONLY) STAT 11/21/2023 3:54 PM EDT URINALYSIS, REFLEX TO CULTURE (NOT FOR NEUTROPENIC PATIENTS) STAT 11/21/2023 3:54 PM EDT LACTATE, WHOLE BLOOD WITH REFLEX IF ABNORMAL STAT 11/21/2023 3:49 PM EDT DIFFERENTIAL, AUTOMATED STAT 11/21/2023 3:49 PM EDT TROPONIN T, HIGH SENSITIVITY STAT 11/21/2023 3:49 PM EDT PROCALCITONIN STAT 11/21/2023 3:49 PM EDT BLOOD GAS, VENOUS STAT 11/21/2023 3:4 9 PM EDT COMPREHENSIVE METABOLIC PANEL STAT 11/21/2023 3:49 PM EDT CBC STAT 11/21/2023 3:49 PM EDT PT INR STAT 11/21/2023 3:49 PM EDT CULTURE, BLOOD STAT 11/21/2023 3:49 PM EDT APTT STAT 11/21/2023 3:49 PM EDT CBC STAT 11/21/2023 3:49 PM EDT documented in this encounter Results * GLUCOSE METER, POINT OF CARE (11/23/2023 12:07 AM EDT) [facility] Glucose Meter 106 70 - 120 mg/dL 11/23/2023 12:11 AM EDT LABORATORY [facility] HOP 66-52 Blood Whole blood specimen / Unknown 11/23/2023 12:07 AM EDT 11/23/2023 12:11 AM EDT Tim Todd DO LAB POINT OF CARE TE ST DOCKED DEVICE UNSOLICITED RESULTS LABORATORY [facility] HOP 66-[address] [place] [address], [facility] * GLUCOSE METER, POINT OF CARE (11/22/2023 6:12 PM EDT) Glucose Meter 105 70 - 120 mg/dL 11/22/2023 6:16 PM EDT LABORATORY [facility] HOP 66-52 Blood Whole blood specimen / Unknown 11/22/2023 6:12 PM EDT 11/22/2023 6:16 PM EDT Tim Todd DO LAB POINT OF CARE TE ST DOCKED DEVICE UNSOLICITED RESULTS LABORATORY [facility] HOP 66-[address] [place] [address], [facility] * GLUCOSE METER, POINT OF CARE (11/22/2023 11:59 AM EDT) Glucose Meter 98 70 - 120 mg/dL 11/22/2023 12:05 PM EDT LABORATORY [facility] HOP 66-52 Blood Whole blood specimen / Unknown 11/22/2023 11:59 AM EDT 11/22/2023 12:05 PM EDT Tim Todd DO LAB POINT OF CARE TE ST DOCKED DEVICE UNSOLICITED RESULTS Performing Organization Address City/[facility]/ZIP Co de Phone Number LABORATORY [facility] HOP 66-[address] [place] [address], [facility] * GLUCOSE METER, POINT OF CARE (11/22/2023 6:10 AM EDT) Glucose Meter 93 70 - 120 mg/dL 11/22/2023 6:14 AM EDT LABORATORY [facility] HOP 66-52 Blood Whole blood specimen / Unknown 11/22/2023 6:10 AM EDT 11/22/2023 6:14 AM EDT Adriana Harris MD LAB POINT OF CARE TE ST DOCKED DEVICE UNSOLICITED RESULTS LABORATORY [facility] HOP 66-[address] [place] [address], [place] * (ABNORMAL) TROPONIN T, HIGH SENSITIVITY (11/22/2023 5:00 AM EDT) Pathologist [facility] Troponin T, High Sensitivity 69(H) <=14 ng/L 11/22/2023 5:30 AM EDT LABORATORY [facility] Blood Venous blood specimen / Unknown Venipuncture / Unknown 11/22/2023 5:00 AM EDT 11/22/2023 5:09 AM EDT Mick Bustos MD LAB BLOOD ORDERABL ES LABORATORY [facility] [address] * (ABNORMAL) COMPREHENSIVE METABOLIC PANEL (11/22/2023 5:00 AM EDT) Pathologist [facility] BUN 52(H) 6 - 20 mg/dL 11/22/2023 5:34 AM EDT LABORATORY [facility] Creatinine 1.6(H) 0.5 - 1.0 mg/dL 11/22/2023 5:34 AM EDT LABORATORY [facility] Estimated Glomerular Filtration Rate 32(L) >=60 mL/min 11/22/2023 5:34 AM EDT LABORATORY [facility] Comment:eGFR is calculated b ased on the CKD-EPI 2020 equation Sodium 134(L) 135 - 146 mmol/L 11/22/2023 5:34 AM EDT LABORATORY [facility] Potassium 3.2(L) 3.5 - 5.1 mmol/L 11/22/2023 5:34 AM EDT LABORATORY [facility] Chloride 96(L) 98 - 107 mmol/L 11/22/2023 5:34 AM EDT LABORATORY [facility] CO2 25 22 - 32 mmol/L 11/22/2023 5:34 AM EDT LABORATORY [facility] Anion Gap 13 7 - 15 mmol/L 11/22/2023 5:34 AM EDT LABORATORY [facility] Glucose 75 70 - 120 mg/dL 11/22/2023 5:34 AM EDT LABORATORY [facility] Albumin 3.0(L) 3.8 - 5.0 g/dL 11/22/2023 5:34 AM EDT LABORATORY [facility] AST 40(H) 10 - 35 U/L 11/22/2023 5:34 AM EDT LABORATORY [facility] Alkaline Phosphatase 148(H) 35 - 130 U/L 11/22/2023 5:34 AM EDT LABORATORY [facility] Bilirubin, Total 1.4(H) <=1.2 mg/dL 11/22/2023 5:34 AM EDT LABORATORY [facility] Calcium 8.7 8.4 - 10.2 mg/dL 11/22/2023 5:34 AM EDT LABORATORY [facility] Protein 6.3 6.0 - 8.3 g/dL 11/22/2023 5:34 AM EDT LABORATORY [facility] ALT 29 10 - 35 U/L 11/22/2023 5:34 AM EDT LABORATORY [facility] Blood Venous blood specimen / Unknown Venipuncture / Unknown 11/22/2023 5:00 AM EDT 11/22/2023 5:09 AM EDT Adriana Harris MD LAB BLOOD ORDERABLES Performing Organization Address City/[facility]/ZIP Co de Phone Number LABORATORY [facility] [address] * MAGNESIUM (11/22/2023 5:00 AM EDT) Magnesium 1.9 1.5 - 2.6 mg/dL 11/22/2023 5:34 AM EDT LABORATORY [facility] Blood Venous blood specimen / Unknown Venipuncture / Unknown 11/22/2023 5:00 AM EDT 11/22/2023 5:09 AM EDT Adriana Harris MD LAB BLOOD ORDERABLES LABORATORY [facility] [address] * (ABNORMAL) CBC (11/22/2023 5:00 AM EDT) WBC 10.06 4.00 - 10.80 K/uL 11/22/2023 5:12 AM EDT LABORATORY [facility] RBC 3.35 3.85 - 5.15 M/uL 11/22/2023 5:12 AM EDT LABORATORY [facility] HGB 9.0(L) 12.0 - 15.3 g/dL 11/22/2023 5:12 AM EDT LABORATORY [facility] HCT 30.1(L) 36.0 - 45.2 % 11/22/2023 5:12 AM EDT LABORATORY [facility] MCV 89.9 81.5 - 97.5 fL 11/22/2023 5:12 AM EDT LABORATORY [facility] MCH 26.9 27.0 - 34.0 pg 11/22/2023 5:12 AM EDT LABORATORY [facility] MCHC 29.9 32.0 - 36.0 g/dL 11/22/2023 5:12 AM EDT LABORATORY [facility] RDW 21.6 11.5 - 15.5 % 11/22/2023 5:12 AM EDT LABORATORY [facility] PLT 264 140 - 400 K/uL 11/22/2023 5:12 AM EDT LABORATORY [facility] MPV 9.1 6.6 - 11.1 fL 11/22/2023 5:12 AM EDT LABORATORY [facility] nRBCs 0 <=0 /100 WBCs 11/22/2023 5:12 AM EDT LABORATORY [facility] Blood Venous blood specimen / Unknown Venipuncture / Unknown 11/22/2023 5:00 AM EDT 11/22/2023 5:09 AM EDT Adriana Harris MD LAB BLOOD ORDERABLES LABORATORY [facility] [address] * LACTATE,WHOLE BLOOD (11/22/2023 3:44 AM EDT) Pathologist [facility] Lactate, Whole Blood 1.8 0.4 - 2.0 mmol/L 11/22/2023 3:54 AM EDT LABORATORY [facility] Blood Venous blood specimen / Unknown Venipuncture / Unknown 11/22/2023 3:44 AM EDT 11/22/2023 3:47 AM EDT Mick Bustos MD LAB BLOOD ORDERABL ES Performing Organization Address City/[facility]/ZIP Co de Phone Number LABORATORY [facility] [address] * GLUCOSE METER, POINT OF CARE (11/21/2023 11:55 PM EDT) [facility] Glucose Meter 90 70 - 120 mg/dL 11/22/2023 12:04 AM EDT LAB[facility]ATORY [facility] HOP 66-52 Blood Whole blood specimen / Unknown 11/21/2023 11:55 PM EDT 11/22/2023 12:04 AM EDT Adriana Harris MD LAB POINT OF CARE TE ST DOCKED DEVICE UNSOLICITED RESULTS LAB[facility] HOP 66-[address] [place] [id number] * (ABNORMAL) LACTATE,WHOLE BLOOD (11/21/2023 8:16 PM EDT) [facility] Lactate, Whole Blood 3.5(H) 0.4 - 2.0 mmol/L 11/21/2023 8:22 PM EDT [facility] Blood Venous blood specimen / Unknown Venipuncture / Unknown 11/21/2023 8:16 PM EDT 11/21/2023 8:19 PM EDT Adriana Harris MD LAB BLOOD ORDERABLES Performing Organization Address [facility] de Phone Number LABORATORY [facility] [address] * MRSA SCREEN, PCR (11/21/2023 7:55 PM EDT) [facility] MRSA PCR Result Negative Negative 11:16 PM EDT LABORATORY [facility] Comment:No Methicillin resis tant Staphylococcus aureus detected by PCR (amplified probe). Upper Respiratory Swab of internal nose / Unknown Non-blood Collection / Unknown 11/21/2023 7:55 PM EDT 11/21/2023 7:59 PM EDT Adriana Harris MD LAB MICRO - GENERAL ORDERABLES LABORATORY [facility] [address] [place] [address] * (ABNORMAL) LACTATE,WHOLE BLOOD (11/21/2023 6:32 PM EDT) Pathologist [facility] Lactate, Whole Blood 2.8(H) 0.4 - 2.0 mmol/L 11/21/2023 6:41 PM EDT [facility] Blood Venous blood specimen / Unknown Venipuncture / Unknown 11/21/2023 6:32 PM EDT 11/21/2023 6:36 PM EDT Arden River MD LAB BLOOD ORDERABLES LABORATORY [facility] [address] [place] [address] * (ABNORMAL) TROPONIN T, HIGH SENSITIVITY (11/21/2023 4:42 PM EDT) [facility] Troponin T, High Sensitivity 74(H) <=14 ng/L 11/21/2023 5:09 PM EDT [facility] Blood Venous blood specimen / Unknown Venipuncture / Unknown 11/21/2023 4:42 PM EDT 11/21/2023 4:45 PM EDT Arden River MD LAB BLOOD ORDERABLES Performing Organization Address City/[facility] de Phone Number LABORATORY [facility] [address] [place] [address] * XR CHEST 1 VIEW (11/21/2023 4:10 PM EDT) Anatomical Region Laterality Modality Chest Digital Radiogra phy 11/21/2023 4:38 PM EDT Impressions 11/21/2023 4:36 PM EDT IMPRESSION 1. Indistinct airspace opacities in both lung bases, which may pneumonia or aspiration in the correct clinical setting. 2. Probable small right pleural effusion. 3. Pulmonary vascular congestion. Narrative 11/21/2023 4:36 PM EDT EXAM XR CHEST 1 VIEW-11/21/2023 4:10 pm HISTORY Sepsis, concern for pulmonary edema COMPARISON Chest radiograph dated 11/03/2023 TECHNIQUE An AP semi-erect view of the chest was obtained FINDINGS LINES/DEVICES: None. LUNGS/PLEURA: Indistinct airspace opacities in the right greater than left bases. A small right pleural effusion is suspected. Mild diffuse prominence of the pulmonary vasculature. No pneumothorax. CARDIOVASCULAR/MEDIASTINUM: Stable mild enlargement of the cardiomediastinal silhouette. Dense mitral annular calcification. OTHER: Unremarkable upper abdomen. No acute osseous abnormality. Procedure Note Beny Arroyo MD - 11/21/2023 EXAM XR CHEST 1 VIEW-11/21/2023 4:10 pm HISTORY Sepsis, concern for pulmonary edema COMPARISON Chest radiograph dated 11/03/2023 TECHNIQUE An AP semi-erect view of the chest was obtained FINDINGS LINES/DEVICES: None. LUNGS/PLEURA: Indistinct airspace opacities in the right greater than leftbases. A small right pleural effusion is suspected. Mild diffuseprominence of the pulmonary vasculature. No pneumothorax. CARDIOVASCULAR/MEDIASTINUM: Stable mild enlargement of thecardiomediastinal silhouette. Dense mitral annular calcification. OTHER: Unremarkable upper abdomen. No acute osseous abnormality. IMPRESSION IMPRESSION 1. Indistinct airspace opacities in both lung bases, which may pneumoniaor aspiration in the correct clinical setting. 2. Probable small right pleural effusion. 3. Pulmonary vascular congestion. Arden River MD RADIOLOGY (RAD GENER AL) * RESPIRATORY PATHOGEN PANEL, PCR (11/21/2023 3:56 PM EDT) Adenovirus by PCR Negative Negative 024 5:01 PM EDT LAB[facility]ATORY [facility] Coronavirus 229E by PCR Negative Negative 11/21/2023 5:01 PM EDT LAB[facility] Coronavirus HKU1 by PCR Negative Negative 11/21/2023 5:01 PM EDT [facility] Coronavirus NL63 by PCR Negative Negative 11/21/2023 5:01 PM EDT [facility] Coronavirus OC43 by PCR Negative Negative 11/21/2023 5:01 PM EDT [facility] Coronavirus SARS-CoV-2 by PCR Negative Negative 11/21/2023 5:01 PM EDT [facility] Human Metapneumovirus by PCR Negative Negative 11/21/2023 5:01 PM EDT [facility] Rhinovirus/Enterovi jessica by PCR Negative Negative 11/21/2023 5:01 PM EDT [facility] Influenza A Virus by PCR Negative Negative 11/21/2023 5:01 PM EDT [facility] Influenza B Virus by PCR Negative Negative 11/21/2023 5:01 PM EDT [facility] Parainfluenza Virus 1 by PCR Negative Negative 11/21/2023 5:01 PM EDT [facility] Parainfluenza Virus 2 by PCR Negative Negative 11/21/2023 5:01 PM EDT [facility] Parainfluenza Virus 3 by PCR Negative Negative 11/21/2023 5:01 PM EDT [facility] Parainfluenza Virus 4 by PCR Negative Negative 11/21/2023 5:01 PM EDT [facility] Respiratory Syncytial Virus by PCR Negative Negative 11/21/2023 5:01 PM EDT LAB[facility] Bordetella pertussis by PCR Negative Negative 11/21/2023 5:01 PM EDT [facility] Chlamydia pneumoniae by PCR Negative Negative 11/21/2023 5:01 PM EDT [facility] Mycoplasma pneumoniae by PCR Negative Negative 11/21/2023 5:01 PM EDT LAB[facility] Bordetella parapertussis by PCR Negative Negative 11/21/2023 5:01 PM EDT LAB[facility] Comment: The primers that detect Rhinovirus may cross react with some Enterorviruses. The validation of bronchial specimens, tracheal aspirates, and throats for this assay was developed and performance characteristics determined by [employer]. The validation of alternate specimen types has not been cleared or approved by the U.S. Food and Drug Administration (FDA). It has been determined that such clearance or approval is not necessary. Upper Respiratory Mid-turbinate nasal swab / Unknown Non-blood Collection / Unknown 11/21/2023 3:56 PM EDT 11/21/2023 4:10 PM EDT Arden River MD LAB MICRO - GENERAL ORDERABLES LABORATORY [facility] [address] * MRSA SCREEN, PCR (11/21/2023 3:56 PM EDT) MRSA PCR Result Negative Negative 8:23 PM EDT LABORATORY [facility] Comment:No Methicillin resis tant Staphylococcus aureus detected by PCR (amplified probe). Upper Respiratory Swab of internal nose / Unknown Non-blood Collection / Unknown 11/21/2023 3:56 PM EDT 11/21/2023 4:10 PM EDT Arden River MD LAB MICRO - GENERAL ORDERABLES LABORATORY [facility] [address] [place] [address] * (ABNORMAL) URINALYSIS, REFLEX TO CULTURE (11/21/2023 3:54 PM EDT) Color, Urine Light Yellow Light Yellow, Yellow, Dark Yellow 11/21/2023 4:17 PM EDT [facility] Clarity, Urine Clear Clear 11/21/2023 4:17 PM EDT LAB[facility] Glucose, Urine 100(A) Negative mg/dL 11/21/2023 4:17 PM EDT [facility] Bilirubin, Urine Negative Negative 11/21/2023 4:17 PM EDT LAB[facility] Ketone, Urine Negative Negative mg/dL 11/21/2023 4:17 PM EDT LAB[facility] Specific Huson, Urine 1.009 1.003 - 1.030 11/21/2023 4:17 PM EDT LAB[facility] Blood, Urine Negative Negative 11/21/2023 4:17 PM EDT LAB[facility] pH, Urine 6.5 5.0 - 7.5 Units 11/21/2023 4:17 PM EDT [facility] Protein, Urine Negative Negative mg/dL 11/21/2023 4:17 PM EDT [facility] Urobilinogen, Urine 0.2 0.2, 1.0 mg/dL 11/21/2023 4:17 PM EDT LAB[facility] Nitrite, Urine Negative Negative 11/21/2023 4:17 PM EDT [facility] Esterase, Urine Negative Negative 11/21/2023 4:17 PM EDT [facility] RBC, Urine 0-2 0 - 2 /HPF 11/21/2023 4:17 PM EDT [facility] WBC, Urine 0-2 0 - 2 /HPF 11/21/2023 4:17 PM EDT LABORATORY [facility] Bacteria, Urine 0-25 0 - 25 /HPF 11/21/2023 4:17 PM EDT LAB[facility] Culture, Urine 11/21/2023 4:17 PM EDT LAB[facility]ORY [facility] Comment:Culture not indicate d by urinalysis results Urine Urine specimen obtained by clean catch procedure / Unknown Non-blood Collection / Unknown 11/21/2023 3:54 PM EDT 11/21/2023 4:00 PM EDT Arden River MD LAB URINE ORDERABLES Performing Organization Address [facility] Co de Phone Number LABORATORY [facility] [address] [place] [address] * URINALYSIS, REFLEX TO CULTURE (CUP ONLY) (11/21/2023 3:54 PM EDT) Urinalysis, Reflex to Culture Specimen Specimen collected and received 11/21/2023 4:06 PM EDT LAB[facility] Urine Urine specimen obtained by clean catch procedure / Unknown Non-blood Collection / Unknown 11/21/2023 3:54 PM EDT 11/21/2023 4:00 PM EDT Arden River MD LAB URINE ORDERABLES Performing Organization Address [facility] de Phone Number LABORATORY [facility] [address] * (ABNORMAL) DIFFERENTIAL, AUTOMATED (11/21/2023 3:49 PM EDT) WBC 8.26 4.00 - 10.80 K/uL 11/21/2023 3:57 PM EDT LAB[facility]ORY [facility] Neutrophils % 84.8(H) 40.0 - 75.0 % 11/21/2023 3:57 PM EDT LAB[facility] Lymphocytes % 7.5(L) 18.0 - 42.0 % 11/21/2023 3:57 PM EDT LAB[facility] Monocytes % 3.9 1.0 - 11.0 % 11/21/2023 3:57 PM EDT [facility] Eosinophils % 2.9 0.0 - 6.0 % 11/21/2023 3:57 PM EDT [facility] Basophils % 0.2 0.0 - 2.0 % 11/21/2023 3:57 PM EDT LABORATORY [facility] Immature Granulocytes % 0.7 0.0 - 2.0 % 11/21/2023 3:57 PM EDT LABORATORY [facility] Absolute Neutrophils 7.00 1.80 - 7.70 K/uL 11/21/2023 3:57 PM EDT LAB[facility]ORY [facility] Absolute Lymphocytes 0.62(L) 1.00 - 4.80 K/ul 11/21/2023 3:57 PM EDT LAB[facility]ORY [facility] Absolute Monocytes 0.32 0.00 - 1.10 K/uL 11/21/2023 3:57 PM EDT LAB[facility]ORY [facility] Absolute Eosinophils 0.24 0.00 - 0.70 K/uL 11/21/2023 3:57 PM EDT LAB[facility] Absolute Basophils 0.02 0.00 - 0.20 K/uL 11/21/2023 3:57 PM EDT LAB[facility] Absolute Immature Granulocytes 0.06 0.00 - 0.20 K/uL 11/21/2023 3:57 PM EDT LAB[facility]ORY [facility] Blood Venous blood specimen / Unknown Venipuncture / Unknown 11/21/2023 3:49 PM EDT 11/21/2023 3:55 PM EDT Arden River MD LAB BLOOD ORDERABLES LABORATORY [facility] [address] * (ABNORMAL) CBC (11/21/2023 3:49 PM EDT) [facility] WBC 8.26 4.00 - 10.80 K/uL 11/21/2023 3:57 PM EDT LAB[facility]ORY [facility] RBC 3.41 3.85 - 5.15 M/uL 11/21/2023 3:57 PM EDT LAB[facility] HGB 9.2(L) 12.0 - 15.3 g/dL 11/21/2023 3:57 PM EDT LAB[facility] HCT 30.9(L) 36.0 - 45.2 % 11/21/2023 3:57 PM EDT LAB[facility] MCV 90.6 81.5 - 97.5 fL 11/21/2023 3:57 PM EDT LAB[facility] MCH 27.0 27.0 - 34.0 pg 11/21/2023 3:57 PM EDT LAB[facility] MCHC 29.8 32.0 - 36.0 g/dL 11/21/2023 3:57 PM EDT LAB[facility] RDW 22.0 11.5 - 15.5 % 11/21/2023 3:57 PM EDT LAB[facility]ORY [facility] PLT 317 140 - 400 K/uL 11/21/2023 3:57 PM EDT LAB[facility] MPV 9.4 6.6 - 11.1 fL 11/21/2023 3:57 PM EDT [facility] nRBCs 0 <=0 /100 WBCs 11/21/2023 3:57 PM EDT [facility] Blood Venous blood specimen / Unknown Venipuncture / Unknown 11/21/2023 3:49 PM EDT 11/21/2023 3:55 PM EDT Arden River MD LAB BLOOD ORDERABLES Performing Organization Address City/State/[facility] Co de Phone Number LABORATORY [facility] [address] * (ABNORMAL) BLOOD GAS, VENOUS (11/21/2023 3:49 PM EDT) Temperature 37.0 C 11/21/2023 4:01 PM EDT LAB[facility] pH, Venous 7.443(H) 7.320 - 7.430 units 11/21/2023 4:01 PM EDT LABORATORY [facility] pCO2, Venous 40.3 40.0 - 60.0 mmHg 11/21/2023 4:01 PM EDT [facility] pO2, Venous 16.7(L) 25.0 - 50.0 mmHg 11/21/2023 4:01 PM EDT [facility] Base Excess, Venous 3.2(H) -2.0 - 2.0 mmol/L 11/21/2023 4:01 PM EDT [facility] HGB 9.7(L) 12.0 - 15.3 g/dL 11/21/2023 4:01 PM EDT [facility] Oxyhemoglobin, Venous 17.8(L) 40.0 - 85.0 % total Hgb 11/21/2023 4:01 PM EDT [facility] Carboxyhemoglobi n, Whole Blood 1.1 <=1.5 % total Hgb 11/21/2023 4:01 PM EDT LAB[facility] Comment:Smokers: 0-9.0 % Methemoglobin, Whole Blood 0.2 <=1.5 % total Hgb 11/21/2023 4:01 PM EDT [facility] Reduced Hemoglobin, Venous 80.9 % total Hgb 11/21/2023 4:01 PM EDT [facility] O2 Content, Venous 2.4(L) 7.0 - 18.0 %vol 11/21/2023 4:01 PM EDT [facility] Bicarbonate, Whole Blood 27.5 23.0 - 31.0 mmol/L 11/21/2023 4:01 PM EDT [facility] Blood Venous blood specimen / Unknown Venipuncture / Unknown 11/21/2023 3:49 PM EDT 11/21/2023 3:55 PM EDT Arden River MD LAB BLOOD ORDERABLES Performing Organization Address City/[facility] Co de Phone Number LABORATORY [facility] [address] * (ABNORMAL) APTT (11/21/2023 3:49 PM EDT) aPTT 45(H) 21 - 38 seconds 11/21/2023 4:18 PM EDT [facility] Blood Venous blood specimen / Unknown Venipuncture / Unknown 11/21/2023 3:49 PM EDT 11/21/2023 3:54 PM EDT Narrative LAB[facility]ORY [facility] - 11/21/2023 4:18 PM EDT Anticoagulation may affect testing. Refer to [employer] Test Catalog for a list of effects. Arden River MD LAB BLOOD ORDERABLES LAB[facility] [address] * (ABNORMAL) PT INR (11/21/2023 3:49 PM EDT) Prothrombin Time 22.3(H) 11.6 - 15.2 seconds 11/21/2023 4:18 PM EDT [facility] INR 1.9(H) 0.8 - 1.2 11/21/2023 4:18 PM EDT [facility] Blood Venous blood specimen / Unknown Venipuncture / Unknown 11/21/2023 3:49 PM EDT 11/21/2023 3:54 PM EDT Narrative [facility] - 11/21/2023 4:18 PM EDT Warfarin Therapy INR: 2.0-3.0 conventional anticoagulation INR: 2.5-3.5 high intensity anticoagulation Arden River MD LAB BLOOD ORDERABLES Performing Organization Address City/[facility] Co de Phone Number LABORATORY [facility] [address] [place] [address] * (ABNORMAL) LACTATE, WHOLE BLOOD WITH REFLEX IF ABNORMAL (11/21/2023 3:49 PM EDT) Pathologist [facility] Lactate, Whole Blood 2.8(H) 0.4 - 2.0 mmol/L 11/21/2023 4:01 PM EDT [facility] Blood Venous blood specimen / Unknown Venipuncture / Unknown 11/21/2023 3:49 PM EDT 11/21/2023 3:55 PM EDT Arden River MD LAB BLOOD ORDERABLES Performing Organization Address City/[facility] Co de Phone Number LAB[facility]ATORY [facility] [address] * (ABNORMAL) TROPONIN T, HIGH SENSITIVITY (11/21/2023 3:49 PM EDT) [facility] Troponin T, High Sensitivity 74(H) <=14 ng/L 11/21/2023 4:15 PM EDT [facility] Blood Venous blood specimen / Unknown Venipuncture / Unknown 11/21/2023 3:49 PM EDT 11/21/2023 3:54 PM EDT Arden River MD LAB BLOOD ORDERABLES LAB[facility] [address] * (ABNORMAL) PROCALCITONIN (11/21/2023 3:49 PM EDT) Pathologist [facility] Procalcitonin 0.15(H) <0.10 ng/mL 11/21/2023 6:07 PM EDT LABORATORY [facility] Blood Venous blood specimen / Unknown Venipuncture / Unknown 11/21/2023 3:49 PM EDT 11/21/2023 3:54 PM EDT Narrative LABORATORY [facility] - 11/21/2023 6:07 PM EDT Less than 0.5 ng/mL: Low risk for progression to sepsis. Review patients condition for localized infections. 0.5 to 2.0 ng/mL: Intermediate risk for progresion to sepsis. Review underlying conditions. Recommend repeat PCT after 6 hours has elapsed. Greater than 2.0 ng/mL: high risk for progression to sepsis unless other causes are known. Arden River MD LAB BLOOD ORDERABLES Performing Organization Address [facility]/ZIP Co de Phone Number LABORATORY [facility] [address] [place] [address] * (ABNORMAL) COMPREHENSIVE METABOLIC PANEL (11/21/2023 3:49 PM EDT) Pathologist [facility] BUN 60(H) 6 - 20 mg/dL 11/21/2023 4:19 PM EDT [facility] Creatinine 1.7(H) 0.5 - 1.0 mg/dL 11/21/2023 4:19 PM EDT [facility] Estimated Glomerular Filtration Rate 29(L) >=60 mL/min 11/21/2023 4:19 PM EDT [facility] Comment:eGFR is calculated b ased on the CKD-EPI 2020 equation Sodium 130(L) 135 - 146 mmol/L 11/21/2023 4:19 PM EDT LABORATORY [facility] Potassium 3.4(L) 3.5 - 5.1 mmol/L 11/21/2023 4:19 PM EDT [facility] Chloride 92(L) 98 - 107 mmol/L 11/21/2023 4:19 PM EDT [facility] CO2 23 22 - 32 mmol/L 11/21/2023 4:19 PM EDT [facility] Anion Gap 15 7 - 15 mmol/L 11/21/2023 4:19 PM EDT [facility] Glucose 126(H) 70 - 120 mg/dL 11/21/2023 4:19 PM EDT [facility] Albumin 3.4(L) 3.8 - 5.0 g/dL 11/21/2023 4:19 PM EDT [facility] AST 46(H) 10 - 35 U/L 11/21/2023 4:19 PM EDT [facility] Alkaline Phosphatase 166(H) 35 - 130 U/L 11/21/2023 4:19 PM EDT [facility] Bilirubin, Total 1.5(H) <=1.2 mg/dL 11/21/2023 4:19 PM EDT [facility] Calcium 9.4 8.4 - 10.2 mg/dL 11/21/2023 4:19 PM EDT [facility] Protein 7.0 6.0 - 8.3 g/dL 11/21/2023 4:19 PM EDT [facility] ALT 35 10 - 35 U/L 11/21/2023 4:19 PM EDT [facility] Blood Venous blood specimen / Unknown Venipuncture / Unknown 11/21/2023 3:49 PM EDT 11/21/2023 3:54 PM EDT Arden River MD LAB BLOOD ORDERABLES LAB[facility] [address] documented in this encounter Visit Diagnoses Diagnosis Acute on chronic respiratory failure with hypoxia (HCC)- Primary Screening for cardiovascular condition Screening for other and unspecified cardiovascular conditions Sepsis (HCC) Unspecified septicemia Acute on chronic congestive heart failure, unspecified heart failure type (HCC) Acute urinary retention Other specified retention of urine Chest pain Chest pain, unspecified Acute respiratory failure with hypoxia (HCC) Acute respiratory failure Coronary artery disease involving curyung coronary artery of curyung heart without angina pectoris Essential hypertension with goal blood pressure less than 140/90 Hypertrophic cardiomyopathy (HCC) Other hypertrophic cardiomyopathy Graves disease Toxic diffuse goiter 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) CAP (community acquired pneumonia) Pneumonia, organism unspecified Pulmonary HTN (HCC) Other chronic pulmonary heart diseases Chronic atrial fibrillation (HCC) Atrial fibrillation CKD (chronic kidney disease) stage 3, GFR 30-59 ml/min (HCC) Chronic kidney disease, Stage III (moderate) documented in this encounter Administered Medications Inactive Administered Medications - up to 3 most recent administrations Medication Order MAR Action Action Date Dose Rate Site Apixaban (Eliquis) tab 2.5 mg 2.5 mg, Oral, BID (.AM/PM), First dose on Mon11/22/23 at 0900, Until Discontinued Given 11/22/2023 9:43 PM EDT 2.5 mg Given 11/22/2023 8:39 AM EDT 2.5 mg aspirin enteric coated tab 81 mg 81 mg, Oral, Daily(AM), First dose on Mon11/22/23 at 0900, Until Discontinued Given 11/22/2023 8:39 AM EDT 81 mg atorvaSTATin (Lipitor) tab 20 mg 20 mg, Oral, QPM-1999, First dose on Mon11/22/23 at 2000, Until Discontinued Given 11/22/2023 9:43 PM EDT 20 mg Bisacodyl (Dulcolax) supp 10 mg 10 mg, Rectal, DAILY PRN Constipation, Starting on Mon11/24/23 at 1850, Until Mon11/23/23 at 0307, Administer if no bowel movement within past 72 hours and patient unable to take oral medications. Bisacodyl (Dulcolax) tab 5 mg 5 mg, Oral, DAILY PRN Constipation, Starting on Mon11/24/23 at 1850, Until Mon11/23/23 at 0307, Administer in addition to polyethylene glycol and senna-docusate if no bowel movement in past 72 hours. cefepime in dextrose premix ivpb 2 g 2 g, IV Piggyback, ONCE, 1 dose, On Mon11/21/23 at 1630, Administer over 30 Minutes New Bag 11/21/2023 4:50 PM EDT 2 g 100 mL/hr fluticasone furoate-vilanterol (BREO ellipta) 100-25 MCG/ACT inhaler 1 Puff 1 Puff, Inhalation, Daily(AM), First dose on Mon11/22/23 at 0900, Until Discontinued Given 11/22/2023 7:06 AM EDT 1 Puff Furosemide (Lasix) inj 60 mg 60 mg, IV Push, BID (0900, 1600), First dose on Mon11/22/23 at 0900, Until Discontinued Given 11/22/2023 5:03 PM EDT 60 mg Furosemide (Lasix) inj 80 mg 80 mg, IV Push, ONCE, On Mon11/21/23 at 1615, For 1 dose Given 11/21/2023 4:12 PM EDT 80 mg Latanoprost (Xalatan) 0.005 % ophthalmic solution 1 Drop 1 Drop, Both eyes, HS, First dose on Mon11/21/23 at 2200, Until Discontinued Given 11/22/2023 9:43 PM EDT 1 Drop Given 11/21/2023 8:48 PM EDT 1 Drop levoFLOXacin (Levaquin) tab 750 mg 750 mg, Oral, Q48H, First dose on Mon11/23/23 at 1900, Last dose on Mon11/29/23 at 1900, For 4 doses, Hold antacids and iron for 3-4 hours before and after administration levoFLOXacin in D5W (Levaquin) ivpb 750 mg IV Piggyback, 750 mg, ONCE, 1 dose, On Mon11/21/23 at 2000, Administer over 90 Minutes New Bag 11/21/2023 8:46 PM EDT 750 mg 100 mL/hr methIMAzole (Tapazole) tab 2.5 mg 2.5 mg, Oral, [id number], First dose on Mon11/22/23 at 0900, Until Discontinued Given 11/22/2023 8:39 AM EDT 2.5 mg NSS 0.9% 250 mL bolus infusion Intravenous, at 250 mL/hr Administer over 60 Minutes, Administer entire volume within 60 minutes or less., ONCE, 1 dose, On Mon11/22/23 at 0400 New Bag 11/22/2023 3:00 AM EDT 250 mL 250 mL/hr NSS 0.9% 250 mL bolus infusion Intravenous, at 250 mL/hr Administer over 60 Minutes, Administer entire volume within 60 minutes or less., ONCE, 1 dose, On Mon11/22/23 at 0500 New Bag 11/22/2023 3:50 AM EDT 250 mL 250 mL/hr oxygen GAS Inhalation, OXYGEN, First dose on Mon11/22/23 at 1600, Until Discontinued, Device/Managed by: Low Flow Device, Goal SPO2 (%): 88-94, Starting Device: Nasal Cannula, Initial Flow Rate (LPM): 2, Lowest Support: Nasal Cannula: Flow 0-6 LPM. Titrate up/down by 1 LPM., Titration Interval: Q2 minutes and as needed., Notify Provider: For sudden DECREASE in resting SPO2 to less than 85% and when escalating delivery device. Polyethylene Glycol 3350 (Miralax) oral powder 17 g 17 g (1 Packet), Oral, DAILY PRN Constipation, Starting on Mon11/21/23 at 1850, Until Mon11/23/23 at 0307, Administer if no bowel movement within past 24 hours. potassium chloride ER tab 40 mEq 40 mEq, Oral, ONCE, On Mon11/21/23 at 1700, For 1 dose, This med should NOT be Crushed or Chewed Given 11/21/2023 4:59 PM EDT 40 mEq rOPINIRole (Requip) tab 1 mg 1 mg, Oral, QHS, First dose on Mon11/22/23 at 2200, Until Discontinued Given 11/22/2023 9:43 PM EDT 1 mg senna-docusate (Senokot-S) 1 Tablet 1 Tablet, Oral, BID PRN Constipation, Starting on Mon11/23/23 at 1850, Until Mon11/23/23 at 0307, Administer in addition to polyethylene glycol if no bowel movement within past 48 hours. vancomycin (Vancocin) 2,000 mg in NSS 500 mL ivpb 2,000 mg, IV Piggyback, ONCE, 1 dose, On Mon11/21/23 at 1630 New Bag 11/21/2023 4:30 PM EDT 2,000 mg 28 5 mL/hr documented in this encounter Active and Recently Administered Medications Times are shown in EDT. Scheduled Medication Order 11/21/2023 11/22/2023 11/23/2023 Apixaban (Eliquis) tab 2.5 mg 2.5 mg, Oral, BID (.AM/PM), First dose on Mon11/22/23 at 0900, Until Discontinued 0839 (Given - Provider: Ivon Oshea RN)2142 (Given - Provider: Edyta Sullivan, RN) aspirin enteric coated tab 81 mg 81 mg, Oral, Daily(AM), First dose on Mon11/22/23 at 0900, Until Discontinued 08 (Given - Provider: Ivon Oshea, MARTHA) atorvaSTATin (Lipitor) tab 20 mg 20 mg, Oral, QPM-1999, First dose on Mon11/22/23 at 2000, Until Discontinued 2142 (Given - Provider: Edyta Sullivan, MARTHA) cefepime in dextrose premix ivpb 2 g (COMPLETED) 2 g, IV Piggyback, ONCE, 1 dose, On Mon11/21/23 at 1630, Administer over 30 Minutes 1650 (New Bag - Provider: Rex Blackman, MARTHA)1827 (Stopped - Provider: Rex Blackman RN) fluticasone furoate-vilanterol (BREO ellipta) 100-25 MCG/ACT inhaler 1 Puff 1 Puff, Inhalation, Daily(AM), First dose on Mon11/22/23 at 0900, Until Discontinued 07 (Given - Provider: Micheal Garcia, MANAGER GAS) Furosemide (Lasix) inj 60 mg 60 mg, IV Push, BID (0900, 1600), First dose on Mon11/22/23 at 0900, Until Discontinued 09 (Not Given - Provider: Ivon Oshea RN - Reason: Other-Notify Provider - Comment: Dr. Todd aware of BP and holding this dose of Lasix)170 (Given - Provider: Ivon Oshea RN) Furosemide (Lasix) inj 80 mg (COMPLETED) 80 mg, IV Push, ONCE, On Mon11/21/23 at 1615, For 1 dose 161 (Given - Provider: Rex Blackman RN) Latanoprost (Xalatan) 0.005 % ophthalmic solution 1 Drop 1 Drop, Both eyes, HS, First dose on Mon11/21/23 at 2200, Until Discontinued 2047 (Given - Provider: Jessica Conway, MARTHA) 2142 (Given - Provider: Edyta Sullivan, MARTHA) levoFLOXacin (Levaquin) tab 750 mg 750 mg, Oral, Q48H, First dose on Mon11/23/23 at 1900, Last dose on Mon11/29/23 at 1900, For 4 doses, Hold antacids and iron for 3-4 hours before and after administration levoFLOXacin in D5W (Levaquin) ivpb 750 mg (COMPLETED) IV Piggyback, 750 mg, ONCE, 1 dose, On Mon11/21/23 at 2000, Administer over 90 Minutes 204 (New Bag - Provider: Jessica Conway, MARTHA)2216 (Stopped - Provider: Jessica Conway RN) methIMAzole (Tapazole) tab 2.5 mg 2.5 mg, Oral, MTWTFSA, First dose on Mon11/22/23 at 0900, Until Discontinued 0839 (Given - Provider: Ivon Oshea RN) NSS 0.9% 250 mL bolus infusion (COMPLETED) Intravenous, at 250 mL/hr Administer over 60 Minutes, Administer entire volume within 60 minutes or less., ONCE, 1 dose, On Mon11/22/23 at 0400 0300 (New Bag - Provider: Edyta Sullivan RN - Comment: Junaid while provider Mark Bustos at bedside for hypotension) NSS 0.9% 250 mL bolus infusion (COMPLETED) Intravenous, at 250 mL/hr Administer over 60 Minutes, Administer entire volume within 60 minutes or less., ONCE, 1 dose, On Mon11/22/23 at 0500 0350 (New Bag - Provider: Edyta Sullivan RN - Comment: Hung at 0350 per provider at bedside) oxygen GAS Inhalation, OXYGEN, First dose on Mon11/22/23 at 1600, Until Discontinued, Device/Managed by: Low Flow Device, Goal SPO2 (%): 88-94, Starting Device: Nasal Cannula, Initial Flow Rate (LPM): 2, Lowest Support: Nasal Cannula: Flow 0-6 LPM. Titrate up/down by 1 LPM., Titration Interval: Q2 minutes and as needed., Notify Provider: For sudden DECREASE in resting SPO2 to less than 85% and when escalating delivery device. 1600 (Oxygen Off - Provider: Ivon Oshea RN) 0000 (Oxygen Off - Provider: Edyta Sullivan RN) potassium chloride ER tab 40 mEq (COMPLETED) 40 mEq, Oral, ONCE, On Mon11/21/23 at 1700, For 1 dose, This med should NOT be Crushed or Chewed 1658 (Given - Provider: Rex Blackman, RN) rOPINIRole (Requip) tab 1 mg 1 mg, Oral, QHS, First dose on Mon11/22/23 at 2200, Until Discontinued 2142 (Given - Provider: Edyta Sullivan, RN) vancomycin (Vancocin) 2,000 mg in NSS 500 mL ivpb (COMPLETED) 2,000 mg, IV Piggyback, ONCE, 1 dose, On Mon11/21/23 at 1630 1630 (New Bag - Provider: Rex Blackman, RN)1828 (Due - Provider: Rex Blackman, RN)2030 (Stopped - Provider: Jessica Conway RN) PRN Medication Order 11/21/2023 11/22/2023 11/23/2023 Acetaminophen (Tylenol) tab 650 mg 650 mg, Oral, Q6H PRN Pain, Mild, Starting on Mon11/21/23 at 1846, Until Mon11/23/23 at 0307 Bisacodyl (Dulcolax) supp 10 mg(Linked Group 1) 10 mg, Rectal, DAILY PRN Constipation, Starting on Mon11/24/23 at 1850, Until Mon11/23/23 at 0307, Administer if no bowel movement within past 72 hours and patient unable to take oral medications. Bisacodyl (Dulcolax) tab 5 mg(Linked Group 1) 5 mg, Oral, DAILY PRN Constipation, Starting on Mon11/24/23 at 1850, Until Mon11/23/23 at 0307, Administer in addition to polyethylene glycol and senna-docusate if no bowel movement in past 72 hours. Polyethylene Glycol 3350 (Miralax) oral powder 17 g(Linked Group 1) 17 g (1 Packet), Oral, DAILY PRN Constipation, Starting on Mon11/21/23 at 1850, Until Mon11/23/23 at 0307, Administer if no bowel movement within past 24 hours. senna-docusate (Senokot-S) 1 Tablet(Linked Group 1) 1 Tablet, Oral, BID PRN Constipation, Starting on Mon11/23/23 at 1850, Until Mon11/23/23 at 0307, Administer in addition to polyethylene glycol if no bowel movement within past 48 hours. sodium chloride 0.9 % flush/inj 3 mL 3 mL, IV Push, PRN Other, Line Patency, Starting on Mon11/21/23 at 1848, Until Mon11/23/23 at 0307, Do not flush if lock, PICC, or central line not in place, IV infusing or unable to flush Linked Groups Order Group 1: Polyethylene Glycol 3350 (Miralax) oral powder 17 gJump to med 17 g (1 Packet), Oral, DAILY PRN Constipation, Starting on Mon11/21/23 at 1850, Until Mon11/23/23 at 0307, Administer if no bowel movement within past 24 hours. And senna-docusate (Senokot-S) 1 TabletJump to med 1 Tablet, Oral, BID PRN Constipation, Starting on Mon11/23/23 at 1850, Until Mon11/23/23 at 0307, Administer in addition to polyethylene glycol if no bowel movement within past 48 hours. And Bisacodyl (Dulcolax) tab 5 mgJump to med 5 mg, Oral, DAILY PRN Constipation, Starting on Mon11/24/23 at 1850, Until Priti 11/23/23 at 0307, Administer in addition to polyethylene glycol and senna- docusate if no bowel movement in past 72 hours. And Bisacodyl (Dulcolax) supp 10 mgJump to med 10 mg, Rectal, DAILY PRN Constipation, Starting on Mon11/24/23 at 1850, Until Priti 11/23/23 at 0307, Administer if no bowel movement within past 72 hours and patient unable to take oral medications. documented in this encounter Additional Health Concerns Infection Onset Date Last Indicated Resolved Time Respiratory Rule-Out 11/21/2023 11/21/2023 024 5:01 PM EDT COVID-19 Rule-Out 11/21/2023 11/21/2023 11/21/2023 5:01 PM EDT documented as of this encounter Advance Directives [...] Advance Directives occurred with: Patient Care Teams Last Repairer Helper Relationship Specialty Start Date End Date Jeanna Bal PA-C [address] [address] [place] [phone] PCP - General Physician Driver Operator 06/13/17 documented as of this encounter
--- OUTSIDE RECORDS SUMMARY | 2023-12-06 21:37 | External Medical Summary ---
Author Name Unknown Address Unknown Organization [id number]:[facility] [address] [place] [address] Laboratory Report Ordering Provider Test Date Status RAMESH EVANS 11/23/2023 13:02:00 Final Observation Date Value Abnormality Reference (Units ) Status Magnesium 11/23/2023 13:02:00 2.1 1.5-2.6 (m g/dL) Final Performing Location [facility] - [address] [place] [address]
--- OUTSIDE RECORDS SUMMARY | 2023-12-06 21:37 | External Medical Summary ---
Author Name Unknown Address Unknown Organization [id number]:[facility]ATORY [facility] [place] - [facility] [place] [address] [place] [address] Laboratory Report Ordering Provider Test Date Status NADINE DURÁN 11/25/2023 05:16:00 Final Observation Date Value Abnormality Reference (Units ) Status WBC, Total 11/25/2023 05:16:00 9.66 4.00-10.80 (K/uL) Final RBC 11/25/2023 05:16:00 3.58 3.85-5.15 (M/uL) Final Hemoglobin 11/25/2023 05:16:00 9.7 Below low normal 12.0-15.3 (g/dL) Final HCT 11/25/2023 05:16:00 33.0 Below low normal 36.0-45.2 (%) Final MCV 11/25/2023 05:16:00 92.2 81.5-97.5 (fL) Final MCH 11/25/2023 05:16:00 27.1 27.0-34.0 (pg) Final MCHC 11/25/2023 05:16:00 29.4 32.0-36.0 (g/dL) Final RDW 11/25/2023 05:16:00 21.7 11.5-15.5 (%) Final Platelets 11/25/2023 05:16:00 265 140-400 (K/uL) Final MPV 11/25/2023 05:16:00 9.6 6.6-11.1 (fL) Final Nucleated erythrocytes/100 leukocytes [Ratio] in Blood by Automated count 11/25/2023 05:16:00 1 Above high normal <=0 (/100 WBCs) Final Performing Location LABORATORY [facility] [place] - [address] [place] [address]
--- OUTSIDE RECORDS SUMMARY | 2023-12-06 21:37 | External Medical Summary ---
Author Name Unknown Address Unknown Organization : Laboratory Report Ordering Provider Test Date Status LOBITO WILLAMS 11/22/2023 05:00:47 Final Observation Date Value Abnormality Reference (Units ) Status Magnesium 11/22/2023 05:00:47 1.9 1.5-2.6 (m g/dL) Final Performing Location
--- OUTSIDE RECORDS SUMMARY | 2023-12-06 21:37 | External Medical Summary ---
Author Name Unknown Address Unknown Organization [id number]:[facility] - [address] [place] [address] Laboratory Report Ordering Provider Test Date Status NADINE DURÁN 11/23/2023 05:30:00 Final Observation Date Value Abnormality Reference (Units ) Status Magnesium 11/23/2023 05:30:00 2.0 1.5-2.6 (m g/dL) Final Performing Location [facility] - [address] [place] [address]
--- OUTSIDE RECORDS SUMMARY | 2023-12-06 21:37 | External Medical Summary ---
Author Name Unknown Address Unknown Organization : Laboratory Report Ordering Provider Test Date Status NINA LARSEN 11/22/2023 18:12:20 Final Observation Date Value Abnormality Reference (Units ) Status Glucose Point of Care 11/22/2023 18:12:20 105 70-120 (mg/dL) Final Performing Location
--- OUTSIDE RECORDS SUMMARY | 2023-12-06 21:37 | External Medical Summary ---
Author Name Unknown Address Unknown Organization [id number]:[facility] [place] [facility] [address] [facility] [address] [place] [address] Laboratory Report Ordering Provider Test Date Status NADINE DURÁN 11/26/2023 05:02:00 Final Observation Date Value Abnormality Reference (Units ) Status WBC, Total 11/26/2023 05:02:00 9.39 4.00-10.80 (K/uL) Final RBC 11/26/2023 05:02:00 3.78 3.85-5.15 (M/uL) Final Hemoglobin 11/26/2023 05:02:00 10.2 Below low normal 12.0-15.3 (g/dL) Final HCT 11/26/2023 05:02:00 35.0 Below low normal 36.0-45.2 (%) Final MCV 11/26/2023 05:02:00 92.6 81.5-97.5 (fL) Final MCH 11/26/2023 05:02:00 27.0 27.0-34.0 (pg) Final MCHC 11/26/2023 05:02:00 29.1 32.0-36.0 (g/dL) Final RDW 11/26/2023 05:02:00 21.2 11.5-15.5 (%) Final Platelets 11/26/2023 05:02:00 267 140-400 (K/uL) Final MPV 11/26/2023 05:02:00 9.8 6.6-11.1 (fL) Final Nucleated erythrocytes/100 leukocytes [Ratio] in Blood by Automated count 11/26/2023 05:02:00 1 Above high normal <=0 (/100 WBCs) Final Performing Location [facility] [place] [address] [place] [address]
--- OUTSIDE RECORDS SUMMARY | 2023-12-06 21:37 | External Medical Summary ---
Author Name Unknown Address Unknown Organization [id number]:LABORATORY [facility] - [address] [place] [address] Laboratory Report Ordering Provider Test Date Status NADINE DURÁN 11/25/2023 05:16:00 Final Observation Date Value Abnormality Reference (Units ) Status BUN 11/25/2023 05:16:00 51 Above high normal 6-20 (mg/dL) Final Creatinine 11/25/2023 05:16:00 1.7 Above high normal 0.5-1.0 (mg/dL) Final Glomerular filtration rate/1.73 sq M.predicted [Volume Rate/Area] in Serum, Plasma or Blood by Creatinine-based formula (CKD-EPI) 11/25/2023 05:16:00 29 Below low normal >=60 (mL/min) Final eGFR is calculated based on the CKD-EPI 2020 equation Sodium 11/25/2023 05:16:00 136 135-146 (m mol/L) Final Potassium 11/25/2023 05:16:00 5.3 Above high normal 3. 5-5.1 (mmol/L) Final Cl 11/25/2023 05:16:00 101 98-107 (mm ol/L) Final CO2 11/25/2023 05:16:00 22 22-32 (mmo l/L) Final Anion gap 11/25/2023 05:16:00 13 7-15 (mmol /L) Final Glucose 11/25/2023 05:16:00 84 70-120 (mg /dL) Final Calcium 11/25/2023 05:16:00 9.5 8.4-10.2 ( mg/dL) Final Performing Location LABORATORY [facility] - [address] [place] [address]
--- OUTSIDE RECORDS SUMMARY | 2023-12-06 21:37 | External Medical Summary ---
Author Name Unknown Address Unknown Organization [id number]:[facility] - [address] [place] [address] Laboratory Report Ordering Provider Test Date Status NADINE DURÁN 11/26/2023 05:02:00 Final Observation Date Value Abnormality Reference (Units ) Status Magnesium 11/26/2023 05:02:00 2.5 1.5-2.6 (m g/dL) Final Performing Location [facility] - [address] [place] [address]
--- OUTSIDE RECORDS SUMMARY | 2023-12-06 21:37 | External Medical Summary ---
Author Name Unknown Address Unknown Organization [id number]:LAB[facility]ATORY [place] [address] [place] [address] Laboratory Report Ordering Provider Test Date Status NADINE DURÁN 11/24/2023 06:42:00 Final Observation Date Value Abnormality Reference (Units ) Status WBC, Total 11/24/2023 06:42:00 11.37 Above high normal 4.00-10.80 (K/uL) Final RBC 11/24/2023 06:42:00 3.71 3.85-5.15 (M/uL) Final Hemoglobin 11/24/2023 06:42:00 10.1 Below low normal 12.0-15.3 (g/dL) Final HCT 11/24/2023 06:42:00 33.0 Below low normal 36.0-45.2 (%) Final MCV 11/24/2023 06:42:00 88.9 81.5-97.5 (fL) Final MCH 11/24/2023 06:42:00 27.2 27.0-34.0 (pg) Final MCHC 11/24/2023 06:42:00 30.6 32.0-36.0 (g/dL) Final RDW 11/24/2023 06:42:00 21.8 11.5-15.5 (%) Final Platelets 11/24/2023 06:42:00 280 140-400 (K/uL) Final MPV 11/24/2023 06:42:00 9.2 6.6-11.1 (fL) Final Nucleated erythrocytes/100 leukocytes [Ratio] in Blood by Automated count 11/24/2023 06:42:00 0 <=0 (/100 WBCs) Final Performing Location [facility] [place] [address] [place] [address]
--- OUTSIDE RECORDS SUMMARY | 2023-12-06 21:37 | External Medical Summary ---
Author Name Unknown Address Unknown Organization K01:LAB[facility]ATORY [place] [address] [place] [address] Laboratory Report Ordering Provider Test Date Status RAMESH EVANS 11/23/2023 13:02:00 Final Observation Date Value Abnormality Reference (Units ) Status BUN 11/23/2023 13:02:00 42 Above high normal 6-20 (mg/dL) Final Creatinine 11/23/2023 13:02:00 1.3 Above high normal 0.5-1.0 (mg/dL) Final Glomerular filtration rate/1.73 sq M.predicted [Volume Rate/Area] in Serum, Plasma or Blood by Creatinine-based formula (CKD-EPI) 11/23/2023 13:02:00 39 Below low normal >=60 (mL/min) Final eGFR is calculated based on the CKD-EPI 2020 equation Sodium 11/23/2023 13:02:00 136 135-146 (m mol/L) Final Potassium 11/23/2023 13:02:00 4.2 3.5-5.1 (m mol/L) Final Cl 11/23/2023 13:02:00 97 Below low normal 98- 107 (mmol/L) Final CO2 11/23/2023 13:02:00 24 22-32 (mmo l/L) Final Anion gap 11/23/2023 13:02:00 15 7-15 (mmol /L) Final Glucose 11/23/2023 13:02:00 141 Above high normal 70 -120 (mg/dL) Final Calcium 11/23/2023 13:02:00 9.2 8.4-10.2 ( mg/dL) Final Performing Location [facility] [place] [address] [place] [address]
--- OUTSIDE RECORDS SUMMARY | 2023-12-06 21:37 | External Medical Summary ---
Author Name Unknown Address Unknown Organization K01:[facility] - [address] [place] [address] Laboratory Report Ordering Provider Test Date Status RAMESH EVANS 11/23/2023 13:02:00 Final Observation Date Value Abnormality Reference (Units ) Status Phosphate 11/23/2023 13:02:00 2.5 2.5-4.8 (m g/dL) Final Performing Location [facility] - [address] [place] [address]
--- OUTSIDE RECORDS SUMMARY | 2023-12-06 21:37 | External Medical Summary | Summary of Care ---
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) Acute on chronic respiratory failure with hypoxia (HCC) Eri Babin MD [address] [place] [address] Hfam 8 Ip [facility] [address] [place] [address] Referral ID Status Reason Start Date Expiration Date Visits Re quested Visits Authorized [id number] Encounter Details Date Type Department Care Team (Latest Contact Info) Description 11/23/2023 11:13 AM EDT - 11/23/2023 11:59 PM EDT Hospital Encounter Cardiac Studies [facility] [address] [place] [address] Discharge Disposition: Home - Self Care Allergies Active Allergy Reactions Criticality Noted Date Comments Amoxicillin Hives Medium 03/22/2016 Gatifloxacin Nausea/vomiting Medium 03/22/2016 Latex Rash Medium 03/22/2016 Other reaction(s): johnson documented as of this encounter (statuses as of 11/24/2023) Medications Medication Sig Dispensed Refills Start Date [...] Suspended Preparation H 1-0.25-14.4-15 % External Cream (Fikcru-YO-Zssson in-Petrolatum) Apply 1 Application topically to affected [...] 50 MCG/ACT Nasal Suspension (Flonase) Administer 1 [place] into nostril in the morning. 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 Coronary artery disease invo lving [place] coronary artery of [place] heart without angina pectoris 03/22/2016 Essential hypertension with goal blood pressure less than 140/90 03/22/2016 Dyslipidemia, goal to be determined 03/22/2016 documented as of this encounter (statuses as of 11/24/2023) Resolved Problems Problem Noted Date Diagnosed Date Resolved Date New onset atrial fibrillation 08/29/2023 11/07/2023 Acute on chronic respiratory failure with hypoxia 08/19/2023 11/24/2023 Acute respiratory failure due to COVID-19 07/30/2023 08/01/2023 Pneumonia due to COVID-19 virus 07/30/2023 08/01/2023 NSTEMI (non-ST elevated myoc ardial infarction) 09/30/2021 10/05/2021 Pain in both lower extremities 03/22/2016 07/30/2023 documented as of this encounter (statuses as of 11/24/2023) Immunizations Name Administration Dates Next Due COVID-19 [...] 12/08/2023 9:00 AM EDT Office Visit Nephrology, [place] [address] [place] [place] [address] Jef Kaminski MD [address] [facility] [place] [address] 12/13/2023 10:00 AM EDT Office Visit Gastroenterology, [facility] [address] [place] [address] Trenton Cameron CRNP [address] [place] [address] 12/18/2023 8:30 AM EDT Telemedicine Cardiology, [facility] [address] [place] [address] Jennifer Queen PA-C [address] [place] [address] 12/21/2023 10:30 AM EDT Telemedicine Pulmonary Medicine Medical [facility] [address] [place] [address] [address] [place] [address] Yocasta Proctor CRNP [address] [place] [address] 01/31/2024 1:00 PM EDT PulmDiagnostic Pulmonary Function Lab, [place] [place] [address] Gj, Pulm Fun Tech [address] [place] [address] 02/20/2024 2:20 PM EDT Office Visit Nephrology, [place] [address] [place] [address] Jef Kaminski MD [address] [place] [address] Health Maintenance Due Date Last Done Comments [...] Name Priority Date/Time Associated Diagnosis Comments ECHO, COMPLETE (2D), TRANS-THORACIC Routine 11/23/2023 12:09 PM EDT HOCM (hypertrophic obstructive cardiomyopathy) (HCC) documented in this encounter Visit Diagnoses Diagnosis Nonrheumatic mitral valve stenosis- Primary Acute hyponatremia Hyposmolality and/or hyponatremia documented in this encounter Administered Medications Inactive Administered Medications - up to 3 most recent administrations Medication Order MAR Action Action Date Dose Rate Site perflutren lipid microsphere inj SUSP 1.956 mg 1.956 mg, Intravenous, ONCE PRN Other, For Echo Only - Suboptimal Echo Images, Starting on Priti 11/23/23 at 1146, Until Priti 11/23/23 at 1345, For 2 hours, Administer IVP over 45 seconds, Cardiac Studies_HODHOV Given 11/23/2023 11:47 AM EDT 1.956 mg documented in this encounter Advance Directives Latest [...] Advance Directives occurred with: Patient Care Teams Auto Service Representative Relationship Specialty Start Date End Date Jeanna Bal PA-C [address] [place] [address] [place] [phone] PCP - General Physician Abrasive Grinder 06/13/17 documented as of this encounter
--- OUTSIDE RECORDS SUMMARY | 2023-12-06 21:37 | External Medical Summary ---
Author Name Unknown Address Unknown Organization K01:LABORATORY [facility] [place] - [facility] [address] [place] [address] Laboratory Report Ordering Provider Test Date Status NADINE DURÁN 11/23/2023 05:30:00 Final Observation Date Value Abnormality Reference (Units ) Status WBC, Total 11/23/2023 05:30:00 11.04 Above high normal 4.00-10.80 (K/uL) Final RBC 11/23/2023 05:30:00 3.85 3.85-5.15 (M/uL) Final Hemoglobin 11/23/2023 05:30:00 10.5 Below low normal 12.0-15.3 (g/dL) Final HCT 11/23/2023 05:30:00 34.5 Below low normal 36.0-45.2 (%) Final MCV 11/23/2023 05:30:00 89.6 81.5-97.5 (fL) Final MCH 11/23/2023 05:30:00 27.3 27.0-34.0 (pg) Final MCHC 11/23/2023 05:30:00 30.4 32.0-36.0 (g/dL) Final RDW 11/23/2023 05:30:00 22.0 11.5-15.5 (%) Final Platelets 11/23/2023 05:30:00 301 140-400 (K/uL) Final MPV 11/23/2023 05:30:00 9.1 6.6-11.1 (fL) Final Nucleated erythrocytes/100 leukocytes [Ratio] in Blood by Automated count 11/23/2023 05:30:00 0 <=0 (/100 WBCs) Final Performing Location LABORATORY [facility] [place] - [address] [place] [address]
--- OUTSIDE RECORDS SUMMARY | 2023-12-06 21:37 | External Medical Summary ---
Author Name Unknown Address Unknown Organization K01[place] [place] [facility] [address] [place] [address] Laboratory Report Ordering Provider Test Date Status NADINE DURÁN 11/23/2023 05:30:00 Final Observation Date Value Abnormality Reference (Units ) Status BUN 11/23/2023 05:30:00 44 Above high normal 6-20 (mg/dL) Final Creatinine 11/23/2023 05:30:00 1.4 Above high normal 0.5-1.0 (mg/dL) Final Glomerular filtration rate/1.73 sq M.predicted [Volume Rate/Area] in Serum, Plasma or Blood by Creatinine-based formula (CKD-EPI) 11/23/2023 05:30:00 39 Below low normal >=60 (mL/min) Final eGFR is calculated based on the CKD-EPI 2020 equation Sodium 11/23/2023 05:30:00 133 Below low normal 135 -146 (mmol/L) Final Potassium 11/23/2023 05:30:00 2.5 Below low normal 3.5 -5.1 (mmol/L) Final Cl 11/23/2023 05:30:00 94 Below low normal 98- 107 (mmol/L) Final CO2 11/23/2023 05:30:00 24 22-32 (mmo l/L) Final Anion gap 11/23/2023 05:30:00 15 7-15 (mmol /L) Final Glucose 11/23/2023 05:30:00 98 70-120 (mg /dL) Final Calcium 11/23/2023 05:30:00 9.2 8.4-10.2 ( mg/dL) Final Performing Location [facility] [place] [address] [facility] [place] [address]
--- OUTSIDE RECORDS SUMMARY | 2023-12-06 21:38 | External Medical Summary ---
Author Name Unknown Address Unknown Organization : Laboratory Report Ordering Provider Test Date Status SHIRASHABBIRSAMARIA 11/21/2023 15:49:55 Final Observation Date Value Abnormality Reference (Units ) Status WBC, Total 11/21/2023 15:49:55 8.26 4.00-10.80 (K/uL) Final RBC 11/21/2023 15:49:55 3.41 3.85-5.15 (M/uL) Final Hemoglobin 11/21/2023 15:49:55 9.2 Below low normal 12.0-15.3 (g/dL) Final HCT 11/21/2023 15:49:55 30.9 Below low normal 36.0-45.2 (%) Final MCV 11/21/2023 15:49:55 90.6 81.5-97.5 (fL) Final MCH 11/21/2023 15:49:55 27.0 27.0-34.0 (pg) Final MCHC 11/21/2023 15:49:55 29.8 32.0-36.0 (g/dL) Final RDW 11/21/2023 15:49:55 22.0 11.5-15.5 (%) Final Platelets 11/21/2023 15:49:55 317 140-400 (K/uL) Final MPV 11/21/2023 15:49:55 9.4 6.6-11.1 (fL) Final Nucleated erythrocytes/100 leukocytes [Ratio] in Blood by Automated count 11/21/2023 15:49:55 0 <=0 (/100 WBCs) Final Performing Location
--- OUTSIDE RECORDS SUMMARY | 2023-12-06 21:38 | External Medical Summary ---
Author Name Unknown Address Unknown Organization : Laboratory Report Ordering Provider Test Date Status SONIA SILVA 11/21/2023 16:42:00 Final Observation Date Value Abnormality Reference (Units ) Status Bacteria identified in Specimen by Culture 11/21/2023 16:42:00 No growth Final Test: Culture, Blood
[facility] Source: Blood, Venous
Specimen Type: Blood
Specimen Date: 11/21/2023 4:42 PM
Result Date: 11/26/2023 5:01 PM
Result Status: Final result
Resulting Lab: LABORATORY [facility]
[address]
[place] [address]

CULTURE

No growth

null Performing Location
--- OUTSIDE RECORDS SUMMARY | 2023-12-06 21:38 | External Medical Summary ---
Author Name Unknown Address Unknown Organization : Laboratory Report Ordering Provider Test Date Status SONIA SILVA 11/21/2023 15:49:55 Final Observation Date Value Abnormality Reference (Units ) Status Bacteria identified in Specimen by Culture 11/21/2023 15:49:55 No growth Final Test: Culture, Blood (site 2 )
Specimen Source: Blood, Venous
Specimen Type: Blood
Specimen Date: 11/21/2023 3:49 PM
Result Date: 11/26/2023 4:02 PM
Result Status: Final result
Resulting Lab: LABORATORY [facility]
[address] [facility]
[place] [id number]

CULTURE

No growth

null Performing Location
--- OUTSIDE RECORDS SUMMARY | 2023-12-06 21:38 | External Medical Summary ---
Author Name Unknown Address Unknown Organization : Laboratory Report Ordering Provider Test Date Status LOBITO WILLAMS 11/21/2023 23:55:41 Final Observation Date Value Abnormality Reference (Units ) Status Glucose Point of Care 11/21/2023 23:55:41 90 70-120 (mg/dL) Final Performing Location
--- OUTSIDE RECORDS SUMMARY | 2023-12-06 21:38 | External Medical Summary ---
Author Name Unknown Address Unknown Organization : Laboratory Report Ordering Provider Test Date Status LOBITO WILLAMS 11/21/2023 20:16:00 Final Observation Date Value Abnormality Reference (Units ) Status Lactic Acid, Whole Blood 11/21/2023 20:16:00 3.5 Above high normal 0.4-2.0 (mmol/L) Final Performing Location
--- OUTSIDE RECORDS SUMMARY | 2023-12-06 21:38 | External Medical Summary ---
Author Name Unknown Address Unknown Organization : Laboratory Report Ordering Provider Test Date Status LOBITO WILLAMS 11/22/2023 05:00:47 Final Observation Date Value Abnormality Reference (Units ) Status BUN 11/22/2023 05:00:47 52 Above high normal 6-20 (mg/dL) Final Creatinine 11/22/2023 05:00:47 1.6 Above high normal 0.5-1.0 (mg/dL) Final Glomerular filtration rate/1.73 sq M.predicted [Volume Rate/Area] in Serum, Plasma or Blood by Creatinine-based formula (CKD-EPI) 11/22/2023 05:00:47 32 Below low normal >=60 (mL/min) Final eGFR is calculated based on the CKD-EPI 2020 equation Sodium 11/22/2023 05:00:47 134 Below low normal 135 -146 (mmol/L) Final Potassium 11/22/2023 05:00:47 3.2 Below low normal 3.5 -5.1 (mmol/L) Final Cl 11/22/2023 05:00:47 96 Below low normal 98- 107 (mmol/L) Final CO2 11/22/2023 05:00:47 25 22-32 (mmo l/L) Final Anion gap 11/22/2023 05:00:47 13 7-15 (mmol /L) Final Glucose 11/22/2023 05:00:47 75 70-120 (mg /dL) Final Albumin 11/22/2023 05:00:47 3.0 Below low normal 3.8 -5.0 (g/dL) Final AST (Aspartate aminotransferase) 11/22/2023 05:00:47 40 Above high normal 10-35 (U/L) Final Alk Phos 11/22/2023 05:00:47 148 Above high normal 35 -130 (U/L) Final Bilirubin, Total 11/22/2023 05:00:47 1.4 Above high no rmal <=1.2 (mg/dL) Final Calcium 11/22/2023 05:00:47 8.7 8.4-10.2 ( mg/dL) Final Protein 11/22/2023 05:00:47 6.3 6.0-8.3 (g /dL) Final ALT (Alanine aminotransferase) 11/22/2023 05:00:47 29 10-35 (U/L) Deo mohan Performing Location
--- OUTSIDE RECORDS SUMMARY | 2023-12-06 21:38 | External Medical Summary ---
Author Name Unknown Address Unknown Organization : Laboratory Report Ordering Provider Test Date Status SONIA SILVA 11/21/2023 15:56:50 Final ADMITTED patient Observation Date Value Abnormality Reference (Units ) Status Adenovirus DNA [Presence] in Nasopharynx by DEAN with non-probe detection 11/21/2023 15:56:50 Negative Negative Final Human coronavirus 229E RNA [Presence] in Nasopharynx by DEAN with non-probe detection 11/21/2023 15:56:50 Negative Negative Final Human coronavirus HKU1 RNA [Presence] in Nasopharynx by DEAN with non-probe detection 11/21/2023 15:56:50 Negative Negative Final Human coronavirus NL63 RNA [Presence] in Nasopharynx by DEAN with non-probe detection 11/21/2023 15:56:50 Negative Negative Final Human coronavirus OC43 RNA [Presence] in Nasopharynx by DEAN with non-probe detection 11/21/2023 15:56:50 Negative Negative Final SARS-CoV-2 (COVID-19) RNA [Presence] in Nasopharynx by DEAN with non-probe detection 11/21/2023 15:56:50 Negative Negative Final Human metapneumovirus RNA [Presence] in Nasopharynx by DEAN with non-probe detection 11/21/2023 15:56:50 Negative Negative Final Rhinovirus+Enterovirus RNA [Presence] in Nasopharynx by DEAN with non-probe detection 11/21/2023 15:56:50 Negative Negative Final Influenza virus A RNA [Presence] in Nasopharynx by DEAN with non-probe detection 11/21/2023 15:56:50 Negative Negative Final Influenza virus B RNA [Presence] in Nasopharynx by DEAN with non-probe detection 11/21/2023 15:56:50 Negative Negative Final Parainfluenza virus 1 RNA [Presence] in Nasopharynx by DEAN with non-probe detection 11/21/2023 15:56:50 Negative Negative Final Parainfluenza virus 2 RNA [Presence] in Nasopharynx by DEAN with non-probe detection 11/21/2023 15:56:50 Negative Negative Final Parainfluenza virus 3 RNA [Presence] in Nasopharynx by DEAN with non-probe detection 11/21/2023 15:56:50 Negative Negative Final Parainfluenza virus 4 RNA [Presence] in Nasopharynx by DEAN with non-probe detection 11/21/2023 15:56:50 Negative Negative Final Respiratory syncytial virus RNA [Presence] in Nasopharynx by DEAN with non-probe detection 11/21/2023 15:56:50 Negative Negative Final Bordetella pertussis.pertussis toxin promoter region [Presence] in Nasopharynx by DEAN with non-probe detection 11/21/2023 15:56:50 Negative Negative Final Chlamydophila pneumoniae DNA [Presence] in Nasopharynx by DEAN with non-probe detection 11/21/2023 15:56:50 Negative Negative Final Mycoplasma pneumoniae DNA [Presence] in Nasopharynx by DEAN with non-probe detection 11/21/2023 15:56:50 Negative Negative Final Bordetella parapertussis [id number] DNA [Presence] in Nasopharynx by DEAN with non-probe detection 11/21/2023 15:56:50 Negative Negative Final
The primers that detect Rhinovirus may cross react with some Enterorviruses. The validation of bronchial specimens, tracheal aspirates, and throats for this assay was developed and performance characteristics determined by [employer]. The validation of alternate specimen types has not been cleared or approved by the [place]. Food and Drug Administration (FDA). It has been determined that such clearance or approval is not necessary. Performing Location
--- OUTSIDE RECORDS SUMMARY | 2023-12-06 21:38 | External Medical Summary ---
Author Name Unknown Address Unknown Organization : Laboratory Report Ordering Provider Test Date Status SONIA SILVA 11/21/2023 15:54:20 Final Observation Date Value Abnormality Reference (Units ) Status Color of Urine by Auto 11/21/2023 15:54:20 Light Yellow Light Yellow, Yellow, Dark Yellow Final Clarity, Urine 11/21/2023 15:54:20 Clear Clear Final Glucose [Mass/volume] in Urine by Automated test strip 11/21/2023 15:54:20 100 Abnormal Negative (mg/dL) Final Bilirubin.total [Presence] in Urine by Automated test strip 11/21/2023 15:54:20 Negative Negative Final Ketones [Mass/volume] in Urine by Automated test strip 11/21/2023 15:54:20 Negative Negative (mg/dL) Final Specific gravity, Urine 11/21/2023 15:54:20 1.009 1.003-1.030 Final Hemoglobin [Presence] in Urine by Automated test strip 11/21/2023 15:54:20 Negative Negative Final pH, Urine 11/21/2023 15:54:20 6.5 5.0-7.5 (Units) Final Protein [Mass/volume] in Urine by Automated test strip 11/21/2023 15:54:20 Negative Negative (mg/dL) Final Urobilinogen [Mass/volume] in Urine by Automated test strip 11/21/2023 15:54:20 0.2 0.2, 1.0 (mg/dL) Final Nitrite [Presence] in Urine by Automated test strip 11/21/2023 15:54:20 Negative Negative Final Leukocyte esterase [Presence] in Urine by Automated test strip 11/21/2023 15:54:20 Negative Negative Final RBC, Urine 11/21/2023 15:54:20 0-2 0-2 (/HPF) Final WBC, Urine 11/21/2023 15:54:20 0-2 0-2 (/HPF) Final Bacteria [#/area] in Urine sediment by Microscopy high power field 11/21/2023 15:54:20 0-25 0-25 (/HPF) Final [facility] 11/21/2023 15:54:20 Final Culture not indicated by uri nalysis results\[id number]\ Performing Location
--- OUTSIDE RECORDS SUMMARY | 2023-12-06 21:38 | External Medical Summary ---
Author Name Unknown Address Unknown Organization : Laboratory Report Ordering Provider Test Date Status SONIA SILVA 11/21/2023 15:49:55 Final Anticoagulation may affect t esting. Refer to [facility] Test Catalog for a list of effects. Observation Date Value Abnormality Reference (Units ) Status aPTT panel - Platelet poor plasma 11/21/2023 15:49:55 45 Above high normal 21-38 (seconds) Final Performing Location
--- OUTSIDE RECORDS SUMMARY | 2023-12-06 21:38 | External Medical Summary ---
Author Name Unknown Address Unknown Organization : Laboratory Report Ordering Provider Test Date Status SONIA SILVA 11/21/2023 16:42:00 Final Observation Date Value Abnormality Reference (Units ) Status Troponin T 11/21/2023 16:42:00 74 Above high normal < =14 (ng/L) Final Performing Location
--- OUTSIDE RECORDS SUMMARY | 2023-12-06 21:38 | External Medical Summary ---
Author Name Unknown Address Unknown Organization : Laboratory Report Ordering Provider Test Date Status SONIA SILVA 11/21/2023 18:32:00 Final Observation Date Value Abnormality Reference (Units ) Status Lactic Acid, Whole Blood 11/21/2023 18:32:00 2.8 Above high normal 0.4-2.0 (mmol/L) Final Performing Location
--- OUTSIDE RECORDS SUMMARY | 2023-12-06 21:38 | External Medical Summary ---
Author Name Unknown Address Unknown Organization : Laboratory Report Ordering Provider Test Date Status SONIA SILVA 11/21/2023 15:49:55 Final Observation Date Value Abnormality Reference (Units ) Status SYNC LEUKOCYTES IN BLOOD BY AUTOMATED COUNT 11/21/2023 15:49:55 8.26 4.00-10.80 (K/uL) Final Segs 11/21/2023 15:49:55 84.8 Above high normal 40.0-75.0 (%) Final Lymphs % 11/21/2023 15:49:55 7.5 Below low normal 18.0-42.0 (%) Final Monos 11/21/2023 15:49:55 3.9 1.0-11.0 (%) Final Eosinophils 11/21/2023 15:49:55 2.9 0.0-6.0 (%) Final Basos 11/21/2023 15:49:55 0.2 0.0-2.0 (%) Final Immature Granulocyte, Percent 11/21/2023 15:49:55 0.7 0.0-2.0 (%) Final Absolute Segs 11/21/2023 15:49:55 7.00 1.80-7.70 (K/uL) Final Lymphs, absolute 11/21/2023 15:49:55 0.62 Below low normal 1.00-4.80 (K/ul) Final Monos, Abs 11/21/2023 15:49:55 0.32 0.00-1.10 (K/uL) Final Eos, Abs 11/21/2023 15:49:55 0.24 0.00-0.70 (K/uL) Final Basos, Abs 11/21/2023 15:49:55 0.02 0.00-0.20 (K/uL) Final Immature Granulocytes, Number 11/21/2023 15:49:55 0.06 0.00-0.20 (K/uL) Final Performing Location
--- OUTSIDE RECORDS SUMMARY | 2023-12-06 21:38 | External Medical Summary ---
Author Name Unknown Address Unknown Organization [id number]:[place] [place] [address] [place] [address] Laboratory Report Ordering Provider Test Date Status SONIA SILVA 11/21/2023 15:49:55 Final Less than 0.5 ng/mL: Low ris k for progression to sepsis. Review patients condition for localized infections.

0.5 to 2.0 ng/mL: Intermediate risk for progresion to sepsis. Review underlying conditions. Recommend repeat PCT after 6 hours has elapsed.

Greater than 2.0 ng/mL: high risk for progression to sepsis unless other causes are known. Observation Date Value Abnormality Reference (Units ) Status Procalcitonin [Mass/volume] in Serum or Plasma by Immunoassay 11/21/2023 15:49:55 0.15 Above high normal <0.10 (ng/mL) Final Performing Location [facility] [place] [facility] [address] [place] [address]
--- OUTSIDE RECORDS SUMMARY | 2023-12-06 21:38 | External Medical Summary ---
Author Name Unknown Address Unknown Organization : Laboratory Report Ordering Provider Test Date Status SONIA SILVA 11/21/2023 15:49:55 Final Observation Date Value Abnormality Reference (Units ) Status Lactic Acid, Whole Blood 11/21/2023 15:49:55 2.8 Above high normal 0.4-2.0 (mmol/L) Final Performing Location
--- OUTSIDE RECORDS SUMMARY | 2023-12-06 21:38 | External Medical Summary ---
Author Name Unknown Address Unknown Organization : Laboratory Report Ordering Provider Test Date Status SONIA SILVA 11/21/2023 15:49:55 Final Warfarin Therapy
INR: 2 .0-3.0 conventional anticoagulation
INR: 2.5- 3.5 high intensity anticoagulation Observation Date Value Abnormality Reference (Units ) Status PT 11/21/2023 15:49:55 22.3 Above high normal 11 .6-15.2 (seconds) Final INR 11/21/2023 15:49:55 1.9 Above high normal 0. 8-1.2 Final Performing Location
--- OUTSIDE RECORDS SUMMARY | 2023-12-06 21:38 | External Medical Summary ---
Author Name Unknown Address Unknown Organization [id number]:[facility]ATORY [facility] [place] - [address] [facility] [address] Laboratory Report Ordering Provider Test Date Status SHIRASHABBIRSAMARIA 11/21/2023 15:56:50 Final Observation Date Value Abnormality Reference (Units ) Status Methicillin resistant Staphylococcus aureus (MRSA) DNA [Presence] in Nose by DEAN with probe detection 11/21/2023 15:56:50 Negative Negative Final No Methicillin resistant Sta phylococcus aureus detected by PCR (amplified probe). Performing Location LABORATORY C - [address] [facility] [address]
--- OUTSIDE RECORDS SUMMARY | 2023-12-06 21:38 | External Medical Summary ---
Author Name Unknown Address Unknown Organization : Laboratory Report Ordering Provider Test Date Status SHIRASHABBIRSAMARIA 11/21/2023 15:49:55 Final Observation Date Value Abnormality Reference (Units ) Status Body temperature 11/21/2023 15:49:55 37.0 (C) Final pH of Venous blood 11/21/2023 15:49:55 7.443 Above high normal 7.320-7.430 (units) Final Carbon dioxide [Partial pressure] in Venous blood 11/21/2023 15:49:55 40.3 40.0-60.0 (mmHg) Final Oxygen [Partial pressure] in Venous blood 11/21/2023 15:49:55 16.7 Below low normal 25.0-50.0 (mmHg) Final Base excess, Capillary 11/21/2023 15:49:55 3.2 Above high normal -2.0-2.0 (mmol/L) Final Hemoglobin [Mass/volume] in Blood by Oximetry 11/21/2023 15:49:55 9.7 Below low normal 12.0-15.3 (g/dL) Final Oxyhemoglobin, Venous (FO2HB) 11/21/2023 15:49:55 17.8 Below low normal 40.0-85.0 (% total Hgb) Final Carboxyhemoglobin 11/21/2023 15:49:55 1.1 <=1.5 (% total Hgb) Final Smokers: 0-9.0 % Methemoglobin 11/21/2023 15:49:55 0.2 <= 1.5 (% total Hgb) Final Deoxyhemoglobin/Hemoglo bin.total in Venous blood 11/21/2023 15:49:55 80.9 (% total Hgb) Final Oxygen content in Venous blood 11/21/2023 15:49:55 2.4 Below low normal 7.0-18.0 (%vol) F inal Bicarbonate, Venous, POC (i-STAT) 11/21/2023 15:49:55 27.5 23.0-31.0 (mmol/L) Final Performing Location
--- OUTSIDE RECORDS SUMMARY | 2023-12-06 21:38 | External Medical Summary ---
Author Name Unknown Address Unknown Organization : Laboratory Report Ordering Provider Test Date Status ISADORA BARKLEY 11/22/2023 05:00:47 Final Observation Date Value Abnormality Reference (Units ) Status Troponin T 11/22/2023 05:00:47 69 Above high normal < =14 (ng/L) Final Performing Location
--- OUTSIDE RECORDS SUMMARY | 2023-12-06 21:39 | External Medical Summary ---
Author Name Unknown Address Unknown Organization K01:LAB[facility]ATORY [facility] [place] - [address] [place] [address] Laboratory Report Ordering Provider Test Date Status LETI WILSON 11/14/2023 06:04:00 Final Observation Date Value Abnormality Reference (Units ) Status WBC, Total 11/14/2023 06:04:00 8.28 4.00-10.80 (K/uL) Final RBC 11/14/2023 06:04:00 3.60 3.85-5.15 (M/uL) Final Hemoglobin 11/14/2023 06:04:00 9.4 Below low normal 12.0-15.3 (g/dL) Final HCT 11/14/2023 06:04:00 30.3 Below low normal 36.0-45.2 (%) Final MCV 11/14/2023 06:04:00 84.2 81.5-97.5 (fL) Final MCH 11/14/2023 06:04:00 26.1 27.0-34.0 (pg) Final MCHC 11/14/2023 06:04:00 31.0 32.0-36.0 (g/dL) Final RDW 11/14/2023 06:04:00 16.5 11.5-15.5 (%) Final Platelets 11/14/2023 06:04:00 383 140-400 (K/uL) Final MPV 11/14/2023 06:04:00 9.2 6.6-11.1 (fL) Final Nucleated erythrocytes/100 leukocytes [Ratio] in Blood by Automated count 11/14/2023 06:04:00 0 <=0 (/100 WBCs) Final Performing Location LABORATORY [facility] - [address] [place] [address]
--- OUTSIDE RECORDS SUMMARY | 2023-12-06 21:39 | External Medical Summary | Summary of Care ---
Author Name Unknown Organization [facility] Address [address] [place] [address] Phone [phone] Care Team Providers Care Subassembly Supervisor Name Role Phone Sally Mahmood PA-C Primary Care [facility] Reason for Referral * Evaluate & Treat - Unlimited Visits (Within 10 days (routine)) - Authorized Specialty Diagnoses / Procedures Referred By Kasey nagy Referred To Contact Sleep Medicine / Sleep Disorders Diagnoses Pulmonary HTN (HCC) Gina Pham MD [address] [place] [address] Referral ID Status Reason Start Date Expiration Date Visits Requested Visits Authorized [id number] Authorized Specialty Services Required 11/14/2023 2 2 Question Answer Referral Priority Within 10 days (routine) Where should this appointment be scheduled? [facility] SLEEP MED ADULT REFERRAL Sleep Apnea Testing and Management Does the patient snore and/or gasp at night or has been told they stop breathing at night? No Comments Discharge Order * Evaluate & Treat - Unlimited Visits (Within 10 days (routine)) - Authorized Specialty Diagnoses / Procedures Referred By Kasey nagy Referred To Contact Pulmonary Diseases / Pulmonary Diagnoses Pulmonary HTN (HCC) Gina Pham MD [address] [place] [address] Referral ID Status Reason Start Date Expiration Date Visits Requested Visits Authorized [id number] Authorized Specialty Services Required 11/14/[phone] Question Answer Referral Priority Within 10 days (routine) Where should this appointment be scheduled? [facility] Reason for Referral? Pulmonary HTN [facility] Comments Discharge Order Reason for Visit * Auth/Cert Specialty Diagnoses / Procedures Referred By Kasey t Referred To Contact Diagnoses CHF (congestive heart failure) ([facility]) CHF Colt Villegas MD [address] [place] [address] Admissions [facility] [address] [place] [address] Referral ID Status Reason Start Date Expiration Date Visits Re quested Visits Authorized [id number] Encounter Details Date Type Department Care Team (Late st Contact Info) Description 11/03/2023 6:47 PM EDT - 11/14/2023 3:57 PM EDT Hospital Encounter [facility] 8, [facility] 8th Floor [address], [place] [id number] Colt Villegas MD [address] [place] [address] Travis Sánchez, [address] [place] [address] Various: EKG,NOXIMG Discharge Disposition: SNF Allergies Active Allergy Reactions Criticality Noted Date Comments Amoxicillin Hives Medium 03/22/2016 Gatifloxacin Nausea/vomiting Medium 03/22/2016 Latex Rash Medium 03/22/2016 Other reaction(s): johnson documented as of this encounter (statuses as of 11/15/2023) Medications Medication Sig Dispensed Refills Start Date End Date Status Aspirin 81 MG TBEC Take 1 Tablet by mouth in the morning. 0 12/12/2015 Active cholecalciferol, VIT D3, (VITAMIN D3) 1000 UNITS Tablet Take 1 Tablet by mouth daily at noon. 0 06/08/2015 Active vitamin c (ASCORBIC ACID) 500 MG Tablet Take 1 Tablet by mouth daily at noon. 0 06/08/2015 Active Vitamin E 400 UNITS Tablet Take 1 [...] taking differently:20 mg OralQ-1999, Reported on 10/03/2023 Ipratropium-Albu terol 0.5-2.5 (3) MG/3ML Inhalation Solution (Duoneb) Inhale 0.5 mg by mouth every 6 hours as needed for Shortness of Breath, Cough or Wheezing. 0 08/07/2023 Active Fluticasone Furoate-Vilanter ol 100-25 MCG/ACT Inhalation Aerosol Powder Breath Activated (BREO ellipta) Inhale 1 Puff by mouth in the morning. 60 Each 5 08/08/2023 Active Classics Rolling Walker Use as directed. 1 Each 0 08/25/2023 Active Benzonatate 100 MG Oral Capsule Take 2 Capsules by mouth 3 times a day as needed for Cough. 30 Capsule 0 08/25/2023 Active Sennosides-Docus ate Sodium 8.6-50 MG Oral Tablet (Senna-S) Take 1 Tablet by mouth in the morning. 0 Active Dorzolamide HCl-Timolol Mal 2-0.5 % Ophthalmic Solution (Cosopt) Instill 1 Drop into eye in the morning and 1 Drop before bedtime. 0 Active Preparation H 1-0.25-14.4-15 % External Cream (Qkwdda-MO-Gjfxh rin-Petrolatum) Apply 1 Application topically to affected area every 8 hours as needed for Hemorrhoids. Apply to rectal area 0 Active Bisacodyl 10 MG Rectal Suppository (Dulcolax) Administer 1 Suppository into the rectum as needed for Constipation. 0 Active Latanoprost 0.005 % Ophthalmic Solution (Xalatan) Instill 1 Drop into both eyes at bedtime. 0 Active polyethylene glycol 3350 119 gram OR POWD Take 17 g by mouth as needed for Constipation. 0 Active Acetaminophen 325 MG Oral Capsule Take 2 Tablets by mouth as needed for Other (Temp above 100.5 or pain). 0 Active Enema Disposable Rectal Enema Administer 1 Application into the rectum as needed for Constipation. 0 Active Apixaban 2.5 MG Oral Tablet (Eliquis) Take 1 Tablet by mouth in the morning and 1 Tablet before bedtime. 0 Active Miconazole Nitrate 2 % External Powder (Remedy) Apply topically to affected area 2 times a day. Apply to groin 85 g 0 10/09/2023 Active Potassium Chloride ER 10 MEQ Oral Capsule Extended Release Take 2 Capsules by mouth in the morning and 2 Capsules before bedtime. 0 10/12/2023 Active Fluticasone Propionate 50 MCG/ACT Nasal Suspension (Flonase) Administer 1 Nisula into nostril in the morning. 0 Active rOPINIRole HCl 1 MG Oral Tablet (Requip) Take 1 Tablet by mouth every night at bedtime. 30 Tablet 0 11/14/2023 Active Spironolactone 50 MG Oral Tablet (Aldactone) Take 1 Tablet by mouth in the morning. 30 Tablet 3 11/14/2023 Active Torsemide 40 MG Oral Tablet Take 40 mg by mouth in the morning and 40 mg before bedtime. 60 Tablet 0 11/14/2023 Active metOLazone 2.5 MG Oral Tablet (Zaroxolyn) TAKE 1 tablet for more than 3 lb weight gain in a day or more than 5 lbs in a week 30 Tablet 5 11/14/2023 Active Empagliflozin 10 MG Oral Tablet (Jardiance) Take 1 Tablet by mouth in the morning. Do not start before November 15, 2023. 30 Tablet 0 11/15/2023 Active Calcium Carbonate 600 MG Tablet Take 1 Tablet by mouth in the morning and 1 Tablet before bedtime. 0 12/12/2015 4 Discontinued Midodrine HCl 5 MG Oral Tablet (Proamatine) Take 1 Tablet by mouth in the morning and 1 Tablet at noon and 1 Tablet in the evening. 90 Tablet 0 08/25/2023 4 Discontinued Torsemide 10 MG Oral Tablet (Demadex) Take 1 Tablet by mouth daily as needed for Other (may take 1 extra dose daily if needed). 0 4 Discontinued Torsemide 20 MG Oral Tablet (Demadex) Take 2 Tablets by mouth in the morning and 2 Tablets in the evening. 120 Tablet 0 10/05/2023 4 Discontinued Doxycycline Hyclate 100 MG Oral Capsule Take 1 Capsule by mouth in the morning and 1 Capsule before bedtime. Do all this for 10 days. 20 Capsule 0 10/09/2023 4 Discontinued Empagliflozin 25 MG Oral Tablet (Jardiance) Take 1 Tablet by mouth in the morning. 30 Tablet 0 11/15/2023 4 Discontinued metOLazone 2.5 MG Oral Tablet (Zaroxolyn) TAKE 1 tablet for more than 3 lb weight gain in a day or more than 5 lbs in a week 30 Tablet 5 11/14/2023 4 Discontinued Empagliflozin 25 MG Oral Tablet (Jardiance) Take 1 Tablet by mouth in the morning. Do not start before November 15, 2023. 30 Tablet 0 11/15/2023 4 Discontinued documented as of this encounter (statuses as of 11/15/2023) Active Problems Problem Noted Date Diagnosed Date Nonrheumatic tricuspid valve regurgitation 11/10 CKD (chronic [...] 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 Coronary artery disease invo lving [place] coronary artery of [place] heart without angina pectoris 03/22/2016 Essential hypertension with goal blood pressure less than 140/90 03/22/2016 Dyslipidemia, goal to be determined 03/22/2016 documented as of this encounter (statuses as of 11/15/2023) Resolved Problems Problem Noted Date Diagnosed Date Resolved Date New onset atrial fibrillation 08/29/2023 11/07/2023 Acute respiratory failure due to COVID-19 07/30/2023 08/01/2023 Pneumonia due to COVID-19 virus 07/30/2023 08/01/2023 NSTEMI (non-ST elevated myoc ardial infarction) 09/30/2021 10/05/2021 Pain in both lower extremities 03/22/2016 07/30/2023 documented as of this encounter (statuses as of 11/15/2023) Immunizations Name Administration Dates Next Due COVID-19 [...] Sign Reading Time Taken Comments Blood Pressure 99/60 11/14/2023 6:36 AM EDT Pulse 79 11/14/2023 6:00 AM EDT Temperature 35.9 C (96.6 F) 11/14/2023 6:36 AM ED T Respiratory Rate 18 11/14/2023 6:36 AM EDT Oxygen Saturation 100% 11/14/2023 6:36 AM EDT Inhaled Oxygen Concentration - - Weight 79.3 kg (174 lb 14.4 oz) 11/14/2023 6:19 AM EDT Height 154.9 cm (5' 1") 11/03/2023 9:42 PM EDT Body Mass Index 33.05 11/03/2023 9:42 PM EDT documented in this encounter Functional Status Functional Status Response Date of Assess ment Are you deaf or do you have serious difficulty h earing? No 11/03/2023 Are you blind or do you have serious difficulty seeing, even when wearing glasses? No 11/03/2023 Do you have serious difficul ty walking or climbing stairs? (5 years old or older) Yes 11/03/2023 Do you have difficulty dress ing or bathing? (5 years old or older) No 11/03/2023 Because of a physical, menta l, or emotional condition, do you have difficulty doing errands alone such as visiting a doctor s office or shopping? (15 years old or older) No 11/03/19 Cognitive Status Response Date of Assessm ent Because of a physical, menta l, or emotional condition, do you have serious difficulty concentrating, remembering, or making decisions? (5 years old or older) No 11/03/2023 documented as of this encounter Discharge Summaries * Cornelius Espino MD - 11/14/2023 2:42 PM EDT [facility] [place] [facility] [place] [address] Admission Date: 11/03/2023 Discharge Date: 11/14/2023 FOLLOW UP Diuretic regimen and dry weights, Weight on d/c 11/14/23 79kg. BMP for hyponatremia evaluation and resolution. Pulmonary studies, Sleep study for CPAP and possible o2 requirement, 6 minute walk test. 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 Chronic atrial fibrillation (HCC) Pulmonary HTN (HCC) Acute on chronic respiratory failure with hypoxia (HCC) Graves disease Ascending aortic aneurysm (HCC) Essential hypertension with goal blood pressure less than 140/90 Coronary artery disease involving [place] coronary artery of [place] heart without angina pectoris Resolved Hospital Problems Diagnosis Date Resolved New onset atrial fibrillation (HCC) 11/07/2023 Attending Provider: Travis Sánchez, CONDITION ON DISCHARGE: stable DISPOSITION ON DISCHARGE: [facility] FOLLOW-UP: Future Appointments Appt Date/Time Provider Department 11/24/2023 10:30 AM Jennifer Queen PA-C Cardiology, [facility] 12/13/2023 10:00 AM Trenton Cameron CRNP Gastroenterology, [facility] 02/20/2024 2:20 PM Jef Kaminski MD Nephrology, [facility] Outpatient testing already scheduled: Cardiology Outpatient testing that needs to be arranged: Pulmonology Inpatient test results pending: none MEDICATIONS ON DISCHARGE: MEDICATION UPDATES AT DISCHARGE START taking these medications INSTRUCTIONS Empagliflozin 25 MG Tabs Commonly known as: Jardiance Start taking on: November 15, 2023 Take 1 Tablet by mouth in the morning. metOLazone 2.5 MG Tablet Commonly known as: Zaroxolyn TAKE 1 tablet for more than 3 lb weight gain in a day or more than 5 lbs in a week rOPINIRole 1 MG Tablet Commonly known as: Requip Take 1 Tablet by mouth every night at bedtime. Spironolactone 50 MG Tablet Commonly known as: Aldactone Take 1 Tablet by mouth in the morning. CHANGE how you take these medications INSTRUCTIONS atorvaSTATin 20 MG Tablet Commonly known as: Lipitor What changed: when to take this Take 1 Tablet by mouth daily. Torsemide 40 MG Tabs What changed: medication strength how much to take when to take this reasons to take this Another medication with the same name was removed. Continue taking this medication, and follow the directions you see here. Take 40 mg by mouth in the morning and 40 mg before bedtime. CONTINUE taking these medications INSTRUCTIONS Acetaminophen 325 MG Caps Take 2 Tablets by mouth as needed for Other (Temp above 100.5 or pain). albuterol-ipratropium 2.5-0.5 MG/3ML nebulizer solution Commonly known as: Duoneb Inhale 0.5 mg by mouth every 6 hours as needed for Shortness of Breath, Cough or Wheezing. Apixaban 2.5 MG Tabs Commonly known as: Eliquis Take 1 Tablet by mouth in the morning and 1 Tablet before bedtime. aspirin enteric coated 81 MG Tbec Take 1 Tablet by mouth in the morning. Benzonatate 100 MG Capsule Commonly known as: Tessalon Perles Take 2 Capsules by mouth 3 times a day as needed for Cough. Bisacodyl 10 MG suppository Commonly known as: Dulcolax Administer 1 Suppository into the rectum as needed for Constipation. cholecalciferol (VIT D3) 1000 UNITS Tablet Take 1 Tablet by mouth daily at noon. Allyn Osman Mistobias Use as directed. Cosopt 2.23-0.68% ophthalmic solution Generic drug: dorzolamide-timolol Instill 1 Drop into eye in the morning and 1 Drop before bedtime. Enema Disposable Enem Administer 1 Application into the rectum as needed for Constipation. fluticasone 50 MCG/ACT nasal spray Commonly known as: Flonase Administer 1 Nisula into nostril in the morning. fluticasone furoate-vilanterol [...] per week (does not take on Monday) Miconazole Nitrate 2 % Powd Commonly known as: Remedy Apply topically to affected area 2 times a day. Apply to groin polyethylene glycol 3350 119 gram Powd Commonly known as: Miralax Take 17 g by mouth as needed for Constipation. Potassium Chloride ER 10 MEQ Cpcr Take 2 Capsules by mouth in the morning and 2 Capsules before bedtime. Preparation H 1-0.25-14.4-15 % Crea Generic drug: Cygrog-YV-Wucxaklm-Petrolatum Apply 1 Application topically to affected area every 8 hours as needed for Hemorrhoids. Apply to rectal area Senna-S 8.6-50 MG per tablet Generic drug: senna-docusate Take 1 Tablet by mouth in the morning. Vitamin B-12 1000 MCG Tablet Commonly known as: Cyanocobalamin Take 1 Tablet by mouth in the morning. Vitamin C 500 MG Tablet Commonly known as: Ascorbic Acid Take 1 Tablet by mouth daily at noon. Vitamin E 400 units Tablet Take 1 Tablet by mouth daily at noon. 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 Per family present at the bedside she was instructed to take 40 mg of torsemide a.m. and again at noon. If her weight increased by 3 lb she was advised to take an additional 10 mg oftorsemide which she had been doing for 5 days prior to her hospitalization. Despite these aggressive measures her weight remained unchanged and she was becoming more dyspneic. On the day of her hospitalization, daughter says that it was impossible for her to move from the chair to the car which prompted their called EMS on 10/31. She arrived to [facility] acutely distressed with pursed lip breathing and cyanotic lips. She was placed on BiPAP and Lasix drip. Notably at the time she was found to have lactic acidosis, hyponatremia, elevated LFTs and bilirubin that were attributed to hypovolemia and congestive hepatopathy respectively. Her troponins were elevated with signs of lateral ischemia though this was due to likely demand. Within 24 hours she had dropped 17 lb. An echocardiogram was obtained that showed severe TR severe pulmonary hypertension, dilated IVC and abnormal septal motion concerning for elevated RV pressures and volume overload. She was weaned from BiPAP to nasal cannula and was provided a Lasix holiday but was placed back on Lasix drip on the day of transfer (11/02) due to weight gain. On evaluation at [facility] she was accompanied by her son and daughter at the bedside. She appears comfortable and says that her breathing is much better at rest. They tell me that Maria Luisa was doing well, driving independent with ADLs, not requiring oxygen all prior to July 2023. However she has since required multiple admissions for heart failure exacerbation despite being compliant with diuretics and dietary changes. She suffers from orthopnea and lower extremity edema bilaterally. Especially when she is fluid overloaded. Denies PND. She has also been requiring 3 L of oxygenvia nasal cannula since she had COVID in August 2023. She was also being evaluated by Pulmonary Medicine for IPF. She denies fevers, chills, nausea, vomiting, diarrhea, constipation, chest tightness, heaviness . Patient lives at home by herself. Her son lives right next door and her daughter lives close by [facility]. She normally is able to perform ADLs but not recently. She requires 3 L of oxygen chronicallysince July and it is 20/02. She wishes to be a full code during this hospitalization and understands this until CPR and intubation. In the event that she needs prolonged time on the ventilator she understands that her children would be making decisions on her behalf. Echocardiogram 11/02/2023 nterpretation Summary The examination is limited quality but [...] indicates an elevated right atrial pressure of 15mmHg ADMISSION Vital Signs: BP: 110 mmHg/71 mmHg (11/03/231957) Pulse: 76 (11/03/231957) Temp: 37.22 C (11/03/231957) Temp Summary: Temp Min: 37.2 C (99 F) Max: 37.2 C (99 F) SpO2: 100 % (11/03/231957) O2 flow rate: 3 L/MIN (11/03/231957) Supplemental O2 Delivery: Nasal Cannula (11/03/231957) Elderly female, NAD, alert and oriented, wearing 3 liters oxygen via NC, appears comfortable with breathing, regular rate and rhythm, diastolic murmur, mild appreciable JVD up to mid neck line, abdomen soft, nontender throughout, Laws cath in place, trace lower extremity edema bilaterally up to the thigh. Skin is warm, palpable pulses, normal skin color. HOSPITAL COURSE (focused): Maria Luisa Recinos is a 87 year old female with a history of HFpEF and pulmonary hypertension that presented with worsening dyspnea secondary to a HFpEF exacerbation. She appeared severely hypervolemic andwas diuresed however continued to experience dyspnea along with orthopnea. It was suspected that the pulmonary hypertension was playing a bigger role in her symptoms as she was also found to have severe TR with an enlarged RV. She was aggressively diuresed and was able to be achieved close to euvolemia. She additionally was able to be weaned during the day from 3L NC to Room air. Hospital course additional considerations were her hyponatremia which was 2/2 aggressive diuresis and improved once euvolemic and weaning of diuretic regimen Day of Discharge Physical Exam Blood pressure 99/60, pulse 79, temperature 35.9 C (96.6 F), temperature source Tympanic, resp.rate 18, height 1.549 m (5' 1"), weight 79.3 kg (174 lb 14.4 oz), SpO2 100%. General: Well developed, chronically ill, no apparent distress HEENT: Sclera white, extraocular muscles intact, oral mucosa pink and moist Neck: No cervical lymphadenopathy appreciated Cardiovascular: Regular rate and irregular rhythm, S1 and S2 present, systolic murmurs on auscultation Respiratory: Clear to auscultation bilaterally, mild bilateral posterior crackles Abdomen: Soft, non-tender, non-distended, normal bowel sounds Musculoskeletal: No visible joint deformity Extremities: Trace lower extremity edema bilaterally Neuro: Moves all extremities, no focal deficits, answers questions appropriately Skin: No rashes, no skin lesions, skin warm and dry Operations & Procedures: none Tapia Interpretation (focused): TTE 11/02/23 The qualitative LV ejection fraction is 55-59% (normal). The septal motion is abnormal consistent with right ventricular pressure and volume overload. The right ventricular systolic function is mildly reduced . The left ventricular diastolic fillling pressure is elevated. Severe tricuspid regurgitation is present. Severe pulmonary hypertension is present. Dilated IVC with reduced collapsability with sniff indicates an elevated right atrial pressure of 15mmHg SELECTED RESULTS: Last recorded weight: Weight: 79.3 kg (174 lb 14.4 oz) (11/14/23618) Laboratory: CARDIAC: Troponin T (see below for last three most recent values): Lab Results Component Value Date/Time TROPT 70 (H) 11/02/2023 11:52 AM TROPT 76 (H) 11/02/2023 05:46 AM TROPT 73 (H) 11/02/2023 02:10 AM TROPT 15 (H) 06/18/2020 01:46 PM TROPT 18 (H) 06/18/2020 11:30 AM CHEMISTRY: BUN, Creatinine, GFR Estimated, Sodium, Potassium, Chloride, Carbon Dioxide, Glucose, Calcium (see below for most recent value): Lab Results Component Value Date/Time BUN 88 (H) 11/14/2023 06:04 AM BUN 19 06/18/2020 11:30 AM CREAT 1.6 (H) 11/14/2023 06:04 AM CREAT 0.9 06/18/2020 11:30 AM GFRESTIMATED >60.0 06/18/2020 11:30 AM NA 123 (L) 11/14/2023 06:04 AM NA 133 (L) 06/18/2020 11:30 AM POTASSIUM 3.3 (L) 11/14/2023 06:04 AM POTASSIUM 3.8 06/18/2020 11:30 AM CL 81 (L) 11/14/2023 06:04 AM CL 99 06/18/2020 11:30 AM CO2 30 11/14/2023 06:04 AM CO2 27 06/18/2020 11:30 AM CA 10.7 (H) 11/14/2023 06:04 AM CA 10.2 06/18/2020 11:30 AM BLOOD COUNT: WBC, Hgb, Platelets (see below for most recent value): Lab Results Component Value Date/Time WBC 8.28 11/14/2023 06:04 AM WBC 9.7 09/28/2022 11:56 AM WBC 10.27 06/18/2020 11:30 AM HGB 9.4 (L) 11/14/2023 06:04 AM HGB 14.3 09/28/2022 11:56 AM HGB 14.2 06/18/2020 11:30 AM PLT 383 11/14/2023 06:04 AM PLT 312 09/28/2022 11:56 AM PLT 327 06/18/2020 11:30 AM LIVER FUNCTION TEST: Albumin, AST, ASTCMC (resulted at [facility] lab), Alkaline Phosphatase, ALT, ALTCMC (resulted at [facility] lab), Bilirubin Total, TBilCMC (resulted at [facility] lab), Protein - (see below for most recent value of each component): Lab Results Component Value Date/Time ALB 3.6 09/28/2022 11:56 AM AST 46 (H) 11/03/2023 07:21 PM AST 37 09/28/2022 11:56 AM ALKP 170 (H) 11/03/2023 07:21 PM ALT 27 11/03/2023 07:21 PM ALT 26 09/28/2022 11:56 AM TBIL 1.8 (H) 11/03/2023 07:21 PM PROT 7.2 11/03/2023 07:21 PM Complications: none CONSULTS ORDERED: ADULT PHYSICAL THERAPY CONSULT IP ADULT OCCUPATIONAL THERAPY CONSULT IP REFERRING PHYSICIAN: Ref: CHONG JACINTO[[id number]] [address] [place] [address] (office) [phone] (fax) PRIMARY CARE PROVIDER: PCP: Sally Mahmood PA-C [address] [place] [address] / [place] ROJAS [phone] (office) [phone] (fax) Note: To contact a physician responsible for this patients hospital care, please call [facility] [phone]. Associated attestation - Travis Sánchez DO - 11/14/2023 2:43 PM EDT I saw and evaluated the patient today. I have reviewed the trainee note and agree. documented in this encounter Discharge Instructions * Discharge Instr - AVS* Cornelius Espino MD - 11/06/2023 4:42 PM EDT Discharge Date: 11/14/2023 The information below provides you with the instructions and the list of medications you need to betaking following discharge from the hospital. If you have any questions, please ask before leaving.Please carry this letter with you when you see your doctor in the clinic. If you have questions, you can reach us at the numbers above. YOUR HOSPITAL PROVIDERS: Discharging Physician: Travis Sánchze DO Fellow Physician: Will Monge MD Resident Physician: Cornelius Espino MD Department: Cardiology IF YOU HAVE QUESTIONS: You may call the Department of Cardiology at [phone] M-U during business hours for any questions or test results. For after-hours emergencies call [phone] and have your doctor paged. Scheduling services is available between the hours of 8:00 am and 9:00 pm by calling . For routine questions, your [facility] Cardiology Team prefers the use of Niblitz. Niblitz is an online internet tool to help you meet your health care needs quickly by providing a secure, confidential way to view your health records and communicate with your [facility] Cardiology Team. To sign up for Niblitz go to [email or web address], "Click" [place] Now on the right side of the screen and complete the user registration information. A BRIEF SUMMARY OF YOUR HOSPITAL STAY: Maria Luisa Recinos is a 87 year old female with a history of HFpEF and pulmonary hypertension that presented with worsening dyspnea secondary to a HFpEF exacerbation. She appeared severely hypervolemic andwas diuresed however continued to experience dyspnea along with orthopnea. It was suspected that the pulmonary hypertension was playing a bigger role in her symptoms as she was also found to have severe TR with an enlarged RV. She was aggressively diuresed and was able to be achieved close to euvolemia. She remained stable and was discharged with follow up with pulmonology and sleep medicine. Oxygen requirements Patient required 3L NC during admission which was weaned to 2L at all times. Your main diagnosis at discharge was: HFpEF exaberbation, pulmonary hypertension and right heart systolic dysfunction Operations & Procedures performed: none Complications: none Inpatient test results that are pending at discharge: none YOUR FOLLOW UP APPOINTMENTS: Primary Care Provider Information: PCP: SALLY MAHMOOD [address] [facility] [place] [place] [address] An appointment was requested with your PCP for within 1 week of discharge from the hospital. (Please take this form to this visit with your primary care physician.) Cardiology follow-up: 1 month You need the following studies in the future: BMP in 3 days INSTRUCTIONS: Diet: previous diet Activity: as tolerated Driving: N/A Date you may return to work or school: N/A START taking: Empagliflozin (Jardiance) Start taking on: November 15, 2023 metOLazone (Zaroxolyn) rOPINIRole (Requip) Spironolactone (Aldactone) CHANGE how you take: Torsemide -- medication strength, how much to take, when to take this, reasons to take this, Another medication with the same name was removed. Continue taking this medication, and follow the directions you see here. STOP taking: Calcium Carbonate 600 MG Tablet doxycycline hyclate 100 MG Capsule midodrine 5 MG Tablet (Proamatine) HEART FAILURE DISCHARGE INSTRUCTIONS Diagnosis: Congestive heart failure due to Right heart failure Fluid Restrictions: 2L per day Weight Monitoring: Weigh yourself every morning before you eat, using the same scale, and write it in your weight diary. Follow Up: See your primary care provider regularly and keep all scheduled appointments. CALL YOUR DOCTOR IF YOU: ? Have a weight gain of 5 pounds ? Notice your feet, legs, or hands are swollen ? Notice a fast heart beat or palpitations ? Have increased cough especially at night ? Notice fullness in abdomen ? Have a loss of appetite ? Become easily dizzy or lightheaded ? Feel more short of breath than usual ? Have dry mouth (sign of dehydration) ? Have muscle cramps (sign of dehydration) MEDICATION CHANGES START taking: Empagliflozin (Jardiance) Start taking on: November 15, 2023 metOLazone (Zaroxolyn) rOPINIRole (Requip) Spironolactone (Aldactone) CHANGE how you take: Torsemide -- medication strength, how much to take, when to take this, reasons to take this STOP taking: Calcium Carbonate 600 MG Tablet doxycycline hyclate 100 MG Capsule midodrine 5 MG Tablet (Proamatine) CONTINUE TAKING ALL OTHER MEDICINES PRESCRIBED documented in this encounter Progress Notes * Cornelius Espino MD - 11/13/2023 3:39 PM EDT Images from the original note were not included. PROGRESS NOTE - Cardiology [facility] [place] [address] Name: Maria Luisa Recinos Age: [age] year old Location: [facility] [place] H858/[id number] Date: 11/13/2023 Time: 3:39PM SUMMARY: Maria Luisa Recinos this is an 87-year-old female with past medical history of HOCM (septum, posterior wall, inducible LVOF gradient) mild , mild MS, HTN, HLD, P HTN severe, chronic respiratoryfailure on 3 L oxygen, IPF, who presented with progressive shortness of breath, found to have severe tricuspid regurgitation, lactic acidosis, and with signs and symptoms consistent with a heart failure exacerbation and hypervolemia. SUBJECTIVE: NAEO Patient feels well this morning and has no complaints, resting comfortably. OBJECTIVE: Most Recent Vital Signs: BP: 107 mmHg/54 mmHg (11/13/23 1133) Pulse: 87 (11/13/23 0800) Temp: 35.83 C (11/13/23 1133) Temp Summary: Temp Min: 35.2 C (95.4 F) Max: 36.3 C (97.3 F) SpO2: 97 % (11/13/23 1133) O2 flow rate: 2 L/MIN (11/13/23 1200) Supplemental O2 Delivery: Nasal Cannula (11/13/23 1200) Vital Signs Last 24 Hours: Systolic BP: Most Recent Systolic BP Av.8 mmHg Min: 92 mmHg Max: 107 mmHg Temperature: Most Recent Temperature Av.7 C Min: 35.22 C Max: 36.28 C Pulse: Pulse Av Min: 75 Max: 87 Respirations: Resp Av.6 Min: 16 Max: 18 SpO2: SpO2 Av.5 % Min: 97 % Max: 98 % Urine Output Urine Output Source: IUBC (laws) (11/13/23 1315) Voiding: Large (11/11/23 0600) PO: 360 ml (11/13/23 1200) Net IO Since Admission: -17,623.98 mL [11/13/23 1540] Scale: Bed scale (11/12/23 0600) BMI: 35.38 (11/03/23 2142) Wt Readings from Last 5 Encounters: 11/12/23 79.8 kg (175 lb 14.4 oz) 11/03/23 84.9 kg (187 lb 2.7 oz) 10/12/23 86.2 kg (190 lb) 10/09/23 85.3 kg (188 lb) 10/05/23 85.6 kg (188 lb 11.2 oz) Weight change: Last Bowel Movement: 11/13/23 (11/13/23 1315) PHYSICAL EXAM General: Well appearing, chronically ill, NC in place, caox4 Cardiovascular: Iregular rythm and normal rate, S1 and S2 present, systolic murmur on auscultation Respiratory: Diminished breath sounds bilaterally Abdomen: Soft, non-tender, non-distended, normal bowel sounds Musculoskeletal: No visible joint deformity Extremities: 1+ pitting edema bilateral to knees, scd in palce Neuro: answers questions appropriately Skin: skin warm and dry LABS: Labs reviewed as indicated below: IMAGING: All overnight imaging reviewed, pertinent information noted below. 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) Active Problems: Ascending aortic aneurysm (HCC) Coronary artery disease involving [place] coronary artery of [place] heart without angina pectoris Essential hypertension with goal blood pressure less than 140/90 Graves disease Acute on chronic respiratory failure with hypoxia (HCC) Pulmonary HTN (HCC) Chronic atrial fibrillation (HCC) 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 CKD (chronic kidney disease) stage 3, GFR 30-59 ml/min (HCC) Nonrheumatic tricuspid valve regurgitation Resolved Problems: New onset atrial fibrillation (HCC) Acute on chronic systolic/diastolic/right heart failure exacerbation 2/2 to severe TR Pulmonary hypertension Chronic hypoxic respiratory failure on 3 liters 20/02 HTN, HLD Hx of T2 NSTEMI 2/2 HTN Emergency (09/2021) Appearing euvolemic, transitioning to discharging regimen and optimizing electrolytes s/p diuresis - Decrease to 40mg BID torsemide, on d/c consider metolazone 5 for weight gain >3Lb a day - Spironolactone continue 50 mg daily - Jardiance 10 mg daily - wean oxygen as tolerated, may need ambulatory oximetry before discharge -SYSTEMS ENG Aspirin 81 mg, atorvastatin 20 mg qd - Misael wraps to BLE Asymptomatic hyponatremia 2/2 diuresis/siadh Non oliguric CARLOTA on CKD3, likely cardiorenal (improving) Cramps 2/2 diuresis - Continue to monitor BMP mag q12h - urea tablets trial today, decreasing diuresis today, regular diet to increase PO salt intake withfluid restriction 1L - tolerating ropinirole 1 mg daily - SCD/ leg wraps Iron deficiency Anemia - venofer x3 days Chronic A fib on eliquis, [id number] - continue SYSTEMS ENG eliquis Graves disease Subclinical hypothyroidism, likely - 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 Sánchez, DO Associated attestation - Travis Sánchez DO - 11/13/2023 8:17 PM EDT I saw and evaluated the patient today. I have reviewed the trainee note and agree. * Gina Pham MD - 11/12/2023 12:03 PM EDT Images from the original note were not included. PROGRESS NOTE - Cardiology [address] [address] Name: Maria Luisa Recinos Age: [age] year old Location: [facility] [place] H858/[id number] Date: 11/12/2023 Time: 12:04PM SUMMARY: Maria Luisa Recinos this is an 87-year-old female with past medical history of HOCM (septum, posterior wall, inducible LVOF gradient) mild , mild MS, HTN, HLD, P HTN severe, chronic respiratoryfailure on 3 L oxygen, IPF, who presented with progressive shortness of breath, found to have severe tricuspid regurgitation, lactic acidosis, and with signs and symptoms consistent with a heart failure exacerbation and hypervolemia. SUBJECTIVE: Complain of bilateral cramps in lower extremities. Patient complains of bilateral lower extremity cramps which was improved during rounds as compared to morning OBJECTIVE: Most Recent Vital Signs: BP: 97 mmHg/64 mmHg (11/12/23 104) Pulse: 77 (11/12/23 0300) Temp: 36.72 C (11/12/231045) Temp Summary: Temp Min: 35.6 C (96.1 F) Max: 36.7 C (98.1 F) SpO2: 100 % (11/12/231045) O2 flow rate: 2 L/MIN (11/12/231045) Supplemental O2 Delivery: Nasal Cannula (11/12/231045) Vital Signs Last 24 Hours: Systolic BP: Most Recent Systolic BP Av.6 mmHg Min: 94 mmHg Max: 131 mmHg Temperature: Most Recent Temperature Av.1 C Min: 35.61 C Max: 36.72 C Pulse: Pulse Av Min: 72 Max: 82 Respirations: Resp Av.2 Min: 16 Max: 18 SpO2: SpO2 Av.8 % Min: 99 % Max: 100 % Urine Output Urine Output Source: IUBC (laws) (11/12/23 1050) Voiding: Large (11/11/23 0600) PO: 240 ml (11/12/23 1050) Net IO Since Admission: -13,543.98 mL [11/11/23 0843] Scale: Bed scale (11/12/23 0600) BMI: 35.38 (11/03/23 2142) Wt Readings from Last 5 Encounters: 11/12/23 79.8 kg (175 lb 14.4 oz) 11/03/23 84.9 kg (187 lb 2.7 oz) 10/12/23 86.2 kg (190 lb) 10/09/23 85.3 kg (188 lb) 10/05/23 85.6 kg (188 lb 11.2 oz) Weight change: -2.948 kg (-6 lb 8 oz) Last Bowel Movement: 11/11/23 (per patient) (11/11/23 0816) PHYSICAL EXAM General: Mild distress due to pain Cardiovascular: Regular rate and rhythm, S1 and S2 present, no murmurs on auscultation Respiratory: Diminished breath sounds bilaterally Abdomen: Soft, non-tender, non-distended, normal bowel sounds Musculoskeletal: No visible joint deformity Extremities: 2 to 3+ pitting edema bilateral Neuro: answers questions appropriately Skin: skin warm and dry LABS: Labs reviewed as indicated below: IMAGING: All overnight imaging reviewed, pertinent information noted below. 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) Active Problems: Ascending aortic aneurysm (HCC) Coronary artery disease involving [place] coronary artery of [place] heart without angina pectoris Essential hypertension with goal blood pressure less than 140/90 Graves disease Acute on chronic respiratory failure with hypoxia (HCC) Pulmonary HTN (HCC) Chronic atrial fibrillation (HCC) 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 CKD (chronic kidney disease) stage 3, GFR 30-59 ml/min (HCC) Nonrheumatic tricuspid valve regurgitation Resolved Problems: New onset atrial fibrillation (HCC) Acute on chronic systolic/diastolic/right heart failure exacerbation 2/2 to severe TR Pulmonary hypertension Chronic hypoxic respiratory failure on 3 liters 20/02 HTN, HLD Hx of T2 NSTEMI 2/2 HTN Emergency (09/2021) Continues to appear volume overloaded on exam - Transition to oral 80 BID torsemide, on d/c consider metolazone 5 for weight gain >3Lb a day - Spironolactone continue 50 mg daily - Jardiance 10 mg daily - wean oxygen as tolerated, may need ambulatory oximetry before discharge -SYSTEMS ENG Aspirin 81 mg, atorvastatin 20 mg qd - discontinue midodrine 5 mg three times daily - Misael wraps to BLE Non oliguric CARLOTA on CKD3, likely cardiorenal (improving) Hypervolemic hyponatremia -Continue to monitor BMP mag q12h - diuresis as above, torsemide 80 mg twice daily Cramps 2/2 electrolyte abnormality Concern for possible? 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 Sánchez, DO Associated attestation - Travis Sánchez DO - 11/12/2023 12:25 PM EDT I saw and evaluated the patient today. I have reviewed the trainee note and agree. * Cornelius Espino MD - 11/11/2023 6:13 AM EDT Images from the original note were not included. PROGRESS NOTE - CARDIOLOGY [address] [address] Name: Maria Luisa Recinos Age: [age] year old Location: [facility] [place] H858/A Date: 11/11/2023 Time: 6:13 AM SUMMARY: Maria Luisa Recinos this is an 87-year-old female with past medical history of HOCM (septum, posterior wall, inducible LVOF gradient) mild , mild MS, HTN, HLD, P HTN severe, chronic respiratoryfailure on 3 L oxygen, IPF, who presented with progressive shortness of breath, found to have severe tricuspid regurgitation, lactic acidosis, and with signs and symptoms consistent with a heart failure exacerbation and hypervolemia. SUBJECTIVE: NAEO Patient reports that she is feeling great this morning without cramps. ROS otherwise negative. OBJECTIVE: Most Recent Vital Signs: BP: 92 mmHg/61 mmHg (11/11/23150) Pulse: 80 (11/11/23150) Temp: 35.78 C (11/11/23150) Temp Summary: Temp Min: 35.2 C (95.3 F) Max: 36.5 C (97.7 F) SpO2: 94 % (11/11/23150) O2 flow rate: 3 L/MIN (11/11/23150) Supplemental O2 Delivery: Nasal Cannula (11/11/23150) Vital Signs Last 24 Hours: Systolic BP: Most Recent Systolic BP Av.4 mmHg Min: 86 mmHg Max: 128 mmHg Temperature: Most Recent Temperature Av.1 C Min: 35.17 C Max: 36.5 C Pulse: Pulse Av.8 Min: 70 Max: 85 Respirations: Resp Av Min: 18 Max: 20 SpO2: SpO2 Av.3 % Min: 94 % Max: 100 % Urine Output Urine Output Source: IUBC (laws) (11/10/231999) Voiding: Large (11/08/23 1907) PO: 120 ml (11/10/23 1538) Net IO Since Admission: -13,543.98 mL [11/11/23 0843] Scale: Digital scale with hand rails (11/10/23 1000) BMI: 35.38 (11/03/23 2142) Wt Readings from Last 5 Encounters: 11/10/23 82.7 kg (182 lb 6.4 oz) 11/03/23 84.9 kg (187 lb 2.7 oz) 10/12/23 86.2 kg (190 lb) 10/09/23 85.3 kg (188 lb) 10/05/23 85.6 kg (188 lb 11.2 oz) Weight change: Last Bowel Movement: 11/10/23 (11/10/23 1538) Cardiology Physical Exam General: Elderly female in NAD Head/Neck: Atraumatic and normocephalic. Eyes: Vision grossly intact. EOM grossly intact. ENT: Hearing grossly intact. Oral mucosa moist. Cardio: Irregular rate and rhythm. Systolic murmur. No appreciable JVD. 1+ Pitting edema in bilateral lower extremities including thighs Pulmonary: NC in place on 3L; No visible signs of respiratory distress or accessory muscle usage. Rales posteriorly and basilarly appreciated Abdomen: Soft and non-tender to palpation. No rebound, rigidity, or guarding appreciated. Bowel sounds present in all four quadrants. MSK: No musculoskeletal deformities. Skin: Warm, dry, and intact. No obvious rashes or lesions. Neuropsych: Appropriate mood and mentation. LABS: Labs reviewed as indicated below: Lab results within last 7 days (see chart for full results) Units 11/10/23 1742 11/10/23 0541 11/09/23 1705 Sodium mmol/L 126* 128* 127* Potassium mmol/L 4.6 3.1* 3.8 Chloride mmol/L 85* 87* 86* CO2 mmol/L 31 30 31 BUN mg/dL 50* 43* 45* Creatinine mg/dL 1.6* 1.4* 1.5* Lab results within last 7 days (see chart for full results) Units 11/10/23 0541 11/09/23 0449 11/08/23 0558 HGB g/dL 9.0* 9.0* 9.5* HCT % 29.2* 29.4* 30.6* WBC K/uL 10.48 10.98* 10.75 PLT K/uL 344 324 345 No results in the last 7 days - inpatent use only No results in the last 7 days - inpatent use only Latest Reference Range & Units 11/04/23 06:29 Triglycerides <=174 mg/dL 50 Cholesterol <200 mg/dL 49 Non-HDL Cholesterol <=159 mg/dL 25 HDL Cholesterol >49 mg/dL 24 (L) LDL Cholesterol <=129 mg/dL 15 (L): Data is abnormally low Latest Reference Range & Units 11/04/23 06:29 INR 0.8 - 1.2 2.4 (H) Prothrombin Time 11.6 - 15.2 seconds 26.0 (H) (H): Data is abnormally high IMAGING: All overnight imaging reviewed, pertinent information noted below. 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) Active Problems: Ascending aortic aneurysm (HCC) Coronary artery disease involving [place] coronary artery of [place] heart without angina pectoris Essential hypertension with goal blood pressure less than 140/90 Graves disease Acute on chronic respiratory failure with hypoxia (HCC) Pulmonary HTN (HCC) Chronic atrial fibrillation (HCC) 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 - Transition to oral 80 BID torsemide, on d/c consider metolazone 5 for weight gain >3Lb a day - Spironolactone continue 25 mg - Added Jardiance 10mg - Needs SYSTEMS ENG 3L Baseline O2 -SYSTEMS ENG Aspirin 81 mg, atorvastatin 20 mg qd - SYSTEMS ENG midodrine 5 mg TID - Misael wraps to BLE Non oliguric CARLOTA on CKD3, likely cardiorenal (improving) Asymptomatic Hyponatremia Anemia secondary to renal disease -Cr improving with diuresis -Continue to monitor BMP mag q12h Cramps 2/2 electrolyte abnormality Cramps improving with potassium, continue - Tylenol, ropinirole 0.5mg QHS Chronic A fib on eliquis, [id number] 6 - continue SYSTEMS ENG eliquis Graves disease Subclinical hypothyroidism, likely - 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 Gonzalo DO Associated attestation - Travis Sánchez DO - 11/11/2023 11:19 AM EDT I saw and evaluated the patient today. I have reviewed the trainee note and agree. * Cornelius Espino MD - 11/10/2023 6:09 AM EDT Images from the original note were not included. PROGRESS NOTE - CARDIOLOGY [facility] [place] [address] Name: Maria Luisa Recinos Age: [age] year old Location: [facility] [place] H858/A Date: 11/10/2023 Time: 1:22 PM SUMMARY: Maria Luisa Recinos this is an 87-year-old female with past medical history of HOCM (septum, posterior wall, inducible LVOF gradient) mild , mild MS, HTN, HLD, P HTN severe, chronic respiratoryfailure on 3 L oxygen, IPF, who presented with progressive shortness of breath, found to have severe tricuspid regurgitation, lactic acidosis, and with signs and symptoms consistent with a heart failure exacerbation and hypervolemia. SUBJECTIVE: NAEO Patient reports that she is feeling poor, worse lower extremity cramping which are improving with sips of water and potassium tabs. ROS otherwise negative. OBJECTIVE: Most Recent Vital Signs: BP: 104 mmHg/58 mmHg (11/10/23 1125) Pulse: 76 (11/10/23 112) Temp: 36.5 C (11/10/231124) Temp Summary: Temp Min: 35.8 C (96.4 F) Max: 36.5 C (97.7 F) SpO2: 100 % (11/10/23 1125) O2 flow rate: 3 L/MIN (11/10/231124) Supplemental O2 Delivery: Nasal Cannula (11/10/231124) Vital Signs Last 24 Hours: Systolic BP: Most Recent Systolic BP Av.6 mmHg Min: 96 mmHg Max: 128 mmHg Temperature: Most Recent Temperature Av.2 C Min: 35.78 C Max: 36.5 C Pulse: Pulse Av.8 Min: 72 Max: 86 Respirations: Resp Av Min: 18 Max: 20 SpO2: SpO2 Av.3 % Min: 93 % Max: 100 % Urine Output Urine Output Source: IUBC (laws) (11/10/23 1100) Voiding: Large (11/08/23 1907) PO: 240 ml (11/10/23 1100) Net IO Since Admission: -10,460.22 mL [11/10/23 0609] Scale: Digital scale with hand rails (11/10/23 1000) BMI: 35.38 (11/03/232141) Wt Readings from Last 5 Encounters: 11/10/23 82.7 kg (182 lb 6.4 oz) 11/03/23 84.9 kg (187 lb 2.7 oz) 10/12/23 86.2 kg (190 lb) 10/09/23 85.3 kg (188 lb) 10/05/23 85.6 kg (188 lb 11.2 oz) Weight change: Last Bowel Movement: 11/09/23 (11/09/23 1431) Cardiology Physical Exam General: Elderly female in NAD Head/Neck: Atraumatic and normocephalic. Eyes: Vision grossly intact. EOM grossly intact. ENT: Hearing grossly intact. Oral mucosa moist. Cardio: Irregular rate and rhythm. Systolic murmur. No appreciable JVD. 1+ Pitting edema in bilateral lower extremities including thighs Pulmonary: NC in place on 3L; No visible signs of respiratory distress or accessory muscle usage. Rales posteriorly and basilarly appreciated Abdomen: Soft and non-tender to palpation. No rebound, rigidity, or guarding appreciated. Bowel sounds present in all four quadrants. MSK: No musculoskeletal deformities. Skin: Warm, dry, and intact. No obvious rashes or lesions. Neuropsych: Appropriate mood and mentation. LABS: Labs reviewed as indicated below: Lab results within last 7 days (see chart for full results) Units 11/10/23 0541 11/09/23 1705 11/09/23 0449 Sodium mmol/L 128* 127* 129* Potassium mmol/L 3.1* 3.8 3.5 Chloride mmol/L 87* 86* 88* CO2 mmol/L 30 31 29 BUN mg/dL 43* 45* 42* Creatinine mg/dL 1.4* 1.5* 1.3* Lab results within last 7 days (see chart for full results) Units 11/10/23 0541 11/09/23 0449 11/08/23 0558 HGB g/dL 9.0* 9.0* 9.5* HCT % 29.2* 29.4* 30.6* WBC K/uL 10.48 10.98* 10.75 PLT K/uL 344 324 345 No results in the last 7 days - inpatent use only Lab results within last 7 days (see chart for full results) Units 11/03/23 1921 Protein g/dL 7.2 Bilirubin, Total mg/dL 1.8* Alkaline Phosphatase U/L 170* AST U/L 46* ALT U/L 27 Latest Reference Range & Units 11/04/23 06:29 Triglycerides <=174 mg/dL 50 Cholesterol <200 mg/dL 49 Non-HDL Cholesterol <=159 mg/dL 25 HDL Cholesterol >49 mg/dL 24 (L) LDL Cholesterol <=129 mg/dL 15 (L): Data is abnormally low Latest Reference Range & Units 11/04/23 06:29 INR 0.8 - 1.2 2.4 (H) Prothrombin Time 11.6 - 15.2 seconds 26.0 (H) (H): Data is abnormally high IMAGING: All overnight imaging reviewed, pertinent information noted below. 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) Active Problems: Ascending aortic aneurysm (HCC) Coronary artery disease involving [place] coronary artery of [place] heart without angina pectoris Essential hypertension with goal blood pressure less than 140/90 Graves disease Acute on chronic respiratory failure with hypoxia (HCC) Pulmonary HTN (HCC) Chronic atrial fibrillation (HCC) 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 - Continue diurese 20ml/hr drip, 5mg metolazone - Spironolactone increased to 25 mg - Added Jardiance 10mg - Needs SYSTEMS ENG 3L Baseline O2 -SYSTEMS ENG Aspirin 81 mg, atorvastatin 20 mg qd - SYSTEMS ENG midodrine 5 mg TID Non oliguric CARLOTA on CKD3, likely cardiorenal (improving) Asymptomatic Hyponatremia Anemia secondary to renal disease -Cr improving with diuresis -Continue to monitor BMP mag q12h Cramps 2/2 electrolyte abnormality Cramps improving with potassium, continue - Tylenol, ropinirole 0.5mg QHS Chronic A fib on eliquis, [id number] - continue SYSTEMS ENG eliquis Graves disease Subclinical hypothyroidism, likely - 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 Gonzalo DO Associated attestation - Travis Sánchez DO - 11/10/2023 2:22 PM EDT I saw and evaluated the patient today. I have reviewed the trainee note and agree. * Cornelius Espino MD - 11/09/2023 8:13 AM EDT Images from the original note were not included. PROGRESS NOTE - CARDIOLOGY [facility] [place] [facility] [place] [address] Name: Maria Luisa Recinos Age: [age] year old Location: [facility] [place] [place] [id number] Date: 11/09/2023 Time: 1:33 PM SUMMARY: Maria Luisa Recinos this is an 87-year-old female with past medical history of HOCM (septum, posterior wall, inducible LVOF gradient) mild , mild MS, HTN, HLD, P HTN severe, chronic respiratoryfailure on 3 L oxygen, IPF, who presented with progressive shortness of breath, found to have severe tricuspid regurgitation, lactic acidosis, and with signs and symptoms consistent with a heart failure exacerbation and hypervolemia. SUBJECTIVE: NAEO This morning the patient reports that she is feeling well, similar to previous day. Had mild hand cramps overnight which are improving with sips of water and potassium tabs. She denies any chest pain, headache, dizziness, abdominal pain or nausea. Ambulated yesterday well with PT OT. OBJECTIVE: Most Recent Vital Signs: BP: 106 mmHg/61 mmHg (11/09/23 105) Pulse: 81 (11/09/23 105) Temp: 36.06 C (11/09/231057) Temp Summary: Temp Min: 35.8 C (96.4 F) Max: 36.5 C (97.7 F) SpO2: 99 % (11/09/23 105) O2 flow rate: 3 L/MIN (11/09/231057) Supplemental O2 Delivery: Nasal Cannula (11/09/231057) Vital Signs Last 24 Hours: Systolic BP: Most Recent Systolic BP Av.8 mmHg Min: 103 mmHg Max: 138 mmHg Temperature: Most Recent Temperature Av.2 C Min: 35.78 C Max: 36.5 C Pulse: Pulse Av.8 Min: 72 Max: 87 Respirations: Resp Av Min: 18 Max: 20 SpO2: SpO2 Av.2 % Min: 98 % Max: 100 % Urine Output Urine Output Source: IUBC (laws) (11/09/23829) Voiding: Large (11/08/23 190) PO: 480 ml (11/09/23829) Net IO Since Admission: -8,450.71 mL [11/09/23 0813] Scale: Bed scale (11/09/23 0233) BMI: 35.38 (11/03/23 2142) Wt Readings from Last 5 Encounters: 11/09/23 85.3 kg (188 lb 1.6 oz) 11/03/23 84.9 kg (187 lb 2.7 oz) 10/12/23 86.2 kg (190 lb) 10/09/23 85.3 kg (188 lb) 10/05/23 85.6 kg (188 lb 11.2 oz) Weight change: -0.59 kg (-1 lb 4.8 oz) Last Bowel Movement: 11/08/23 (11/08/23 1356) Cardiology Physical Exam General: Elderly female in NAD Head/Neck: Atraumatic and normocephalic. Eyes: Vision grossly intact. EOM grossly intact. ENT: Hearing grossly intact. Oral mucosa moist. Cardio: Irregular rate and rhythm. Systolic murmur. No appreciable JVD. 2+ Pitting edema in bilateral lower extremities including thighs, improved from 11/07 Pulmonary: NC in place on 3L; No visible signs of respiratory distress or accessory muscle usage. Minimal rales posteriorly and basilarly appreciated Abdomen: Soft and non-tender to palpation. No rebound, rigidity, or guarding appreciated. Bowel sounds present in all four quadrants. MSK: No musculoskeletal deformities. Skin: Warm, dry, and intact. No obvious rashes or lesions. Neuropsych: Appropriate mood and mentation. LABS: Labs reviewed as indicated below: Lab results within last 7 days (see chart for full results) Units 11/09/23 0449 11/08/23 0558 11/07/23 1909 Sodium mmol/L 129* 129* 126* Potassium mmol/L 3.5 4.0 4.8 Chloride mmol/L 88* 91* 91* CO2 mmol/L 29 25 23 BUN mg/dL 42* 44* 48* Creatinine mg/dL 1.3* 1.4* 1.5* Lab results within last 7 days (see chart for full results) Units 11/09/23 0449 11/08/23 0558 11/07/23 0616 HGB g/dL 9.0* 9.5* 9.3* HCT % 29.4* 30.6* 30.4* WBC K/uL 10.98* 10.75 11.31* PLT K/uL 324 345 330 No results in the last 7 days - inpatent use only Lab results within last 7 days (see chart for full results) Units 11/03/23 1921 11/03/23 0530 Protein g/dL 7.2 7.1 Bilirubin, Total mg/dL 1.8* 1.8* Alkaline Phosphatase U/L 170* 161* AST U/L 46* 44* ALT U/L 27 27 Latest Reference Range & Units 11/04/23 06:29 Triglycerides <=174 mg/dL 50 Cholesterol <200 mg/dL 49 Non-HDL Cholesterol <=159 mg/dL 25 HDL Cholesterol >49 mg/dL 24 (L) LDL Cholesterol <=129 mg/dL 15 (L): Data is abnormally low Latest Reference Range & Units 11/04/23 06:29 INR 0.8 - 1.2 2.4 (H) Prothrombin Time 11.6 - 15.2 seconds 26.0 (H) (H): Data is abnormally high IMAGING: All overnight imaging reviewed, pertinent information noted below. 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) Active Problems: Ascending aortic aneurysm (HCC) Coronary artery disease involving [place] coronary artery of [place] heart without angina pectoris Essential hypertension with goal blood pressure less than 140/90 Graves disease Acute on chronic respiratory failure with hypoxia (HCC) Pulmonary HTN (HCC) Chronic atrial fibrillation (HCC) 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 Colt Villegas. Associated attestation - Colt Villegas MD - 11/09/2023 3:55 PM EDT I saw and evaluated the patient today. I have reviewed the trainee note and agree. Bg Villegas MD 11/09/2023 3:55 PM * Colt Villegas MD - 11/08/2023 5:44 AM EDT Images from the original note were not included. PROGRESS NOTE - CARDIOLOGY [facility] [place] [facility] [place] [address] Name: Maria Luisa Recinos Age: [age] year old Location: [facility] [place] [facility] [place] [id number] Date: 11/08/2023 Time: 2:59 PM SUMMARY: Maria Luisa Recinos this is an 87-year-old female with past medical history of HOCM (septum, posterior wall, inducible LVOF gradient) mild , mild MS, HTN, HLD, P HTN severe, chronic respiratoryfailure on 3 L oxygen, IPF, who presented with progressive shortness of breath, found to have severe tricuspid regurgitation, lactic acidosis, and with signs and symptoms consistent with a heart failure exacerbation. SUBJECTIVE: NAEO This morning the patient reports that she is feeling well, similar to previous day. She is no longer having leg cramps. She denies any chest pain, headache, dizziness, abdominal pain or nausea. OBJECTIVE: Most Recent Vital Signs: BP: 102 mmHg/66 mmHg (11/08/23 1052) Pulse: 81 (11/08/23 1052) Temp: 36.78 C (11/08/23 105) Temp Summary: Temp Min: 36.1 C (97 F) Max: 36.8 C (98.2 F) SpO2: 95 % (11/08/23 1100) O2 flow rate: 3 L/MIN (11/08/23 105) Supplemental O2 Delivery: Nasal Cannula (11/08/23 105) Vital Signs Last 24 Hours: Systolic BP: Most Recent Systolic BP Av.8 mmHg Min: 93 mmHg Max: 112 mmHg Temperature: Most Recent Temperature Av.5 C Min: 36.11 C Max: 36.78 C Pulse: Pulse Av.8 Min: 74 Max: 95 Respirations: Resp Av.8 Min: 17 Max: 22 SpO2: SpO2 Av.8 % Min: 86 % Max: 100 % Urine Output Urine Output Source: IUBC (laws) (11/08/23 1141) Voiding: Large (11/08/23 1141) PO: (NPO) (11/08/23 0003) Net IO Since Admission: -700 mL [11/04/23 0710] Scale: 50 Hfam digital with hand rails (11/08/23 0550) BMI: 35.38 (11/03/23 2142) Wt Readings from Last 5 Encounters: 11/08/23 85.9 kg (189 lb 6.4 oz) 11/03/23 84.9 kg (187 lb 2.7 oz) 10/12/23 86.2 kg (190 lb) 10/09/23 85.3 kg (188 lb) 10/05/23 85.6 kg (188 lb 11.2 oz) Weight change: -0.454 kg (-1 lb) Last Bowel Movement: 11/08/23 (11/08/23 1356) Cardiology Physical Exam General: Elderly female in NAD Head/Neck: Atraumatic and normocephalic. Eyes: Vision grossly intact. EOM grossly intact. ENT: Hearing grossly intact. Oral mucosa moist. Cardio: Irregular rate and rhythm. No appreciable murmurs. No appreciable JVD. 2+ Pitting edema in bilateral lower extremities including thighs, improved from 11/06 Pulmonary: NC in place on 3L; No visible signs of respiratory distress or accessory muscle usage. Minimal wheezes appreciated Abdomen: Soft and non-tender to palpation. No rebound, rigidity, or guarding appreciated. Bowel sounds present in all four quadrants. MSK: No musculoskeletal deformities. Skin: Warm, dry, and intact. No obvious rashes or lesions. Neuropsych: Appropriate mood and mentation. LABS: Labs reviewed as indicated below: Lab results within last 7 days (see chart for full results) Units 11/08/23 0558 11/07/23 1909 11/07/23 0616 Sodium mmol/L 129* 126* 127* Potassium mmol/L 4.0 4.8 4.3 Chloride mmol/L 91* 91* 90* CO2 mmol/L 25 23 24 BUN mg/dL 44* 48* 46* Creatinine mg/dL 1.4* 1.5* 1.4* Lab results within last 7 days (see chart for full results) Units 11/08/23 0558 11/07/23 0616 11/06/23 0612 HGB g/dL 9.5* 9.3* 9.2* HCT % 30.6* 30.4* 29.9* WBC K/uL 10.75 11.31* 10.44 PLT K/uL 345 330 324 Lab results within last 7 days (see chart for full results) Units 11/02/23 1152 11/02/23 0546 11/02/23 0210 Troponin T, High Sensitivity ng/L 70* 76* 73* Lab results within last 7 days (see chart for full results) Units 11/03/23 1921 11/03/23 0530 Protein g/dL 7.2 7.1 Bilirubin, Total mg/dL 1.8* 1.8* Alkaline Phosphatase U/L 170* 161* AST U/L 46* 44* ALT U/L 27 27 Latest Reference Range & Units 11/04/23 06:29 Triglycerides <=174 mg/dL 50 Cholesterol <200 mg/dL 49 Non-HDL Cholesterol <=159 mg/dL 25 HDL Cholesterol >49 mg/dL 24 (L) LDL Cholesterol <=129 mg/dL 15 (L): Data is abnormally low Latest Reference Range & Units 11/04/23 06:29 INR 0.8 - 1.2 2.4 (H) Prothrombin Time 11.6 - 15.2 seconds 26.0 (H) (H): Data is abnormally high IMAGING: All overnight imaging reviewed, pertinent information noted below. 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) Active Problems: Ascending aortic aneurysm (HCC) Coronary artery disease involving [place] coronary artery of [place] heart without angina pectoris Essential hypertension with goal blood pressure less than 140/90 Graves disease Acute on chronic respiratory failure with hypoxia (HCC) Pulmonary HTN (HCC) Chronic atrial fibrillation (HCC) 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 CKD (chronic kidney disease) stage 3, GFR 30-59 ml/min (HCC) Resolved Problems: New onset atrial fibrillation (HCC) Acute on chronic systolic/diastolic/right heart failure exacerbation 2/2 to severe TR Pulmonary hypertension Chronic hypoxic respiratory failure on 3 liters 20/02 HTN, HLD Hx of T2 NSTEMI 2/2 HTN Emergency (09/2021) - Patient still with excess fluid present; suspect that due to her RV enlargement and pulmonary hypertension she will continue to have volume overoad - Echo completed at OSH, EKG with chronic T wave inversion in I, aVL - Severe LVH involving septum and posterior wall with history of inducible LVOT gradient Referred to genetic counselor 06/2018 - underwent genetic testing in which no pathogenic variants were identified PLAN -Increase IV lasix 100 mg bid, cont to evaluate volume status - consider metolazone if nonresponding to max dose lasix -Copntinue Lasix infusion at 20 mg/hr - Monitor strict I/O, maintain Laws cath, daily standing weights and BMP BID -Plan to do right heart catheterization once optimal volume status - Continue SYSTEMS ENG midodrine 5 mg TID; orthostatics today -Continue Spironolactone 12.5 mg - Passed Noc Ox, ambox passed on 3L baseline - Can Trial CPAP during night to assess oxygen requirements -Continue aspirin 81 mg, atorvastatin 20 mg qd - Hold SYSTEMS ENG torsemide 40 mg BID while on lasix - Heart health diet, 2 liters fluid restriction - Continue oxygen via NC at SYSTEMS ENG 3 liters. - Consider CT surgery involvement when volume status is improved Non oliguric CARLOTA on CKD3, likely cardiorenal (stable) Hyponatremia Anemia secondary to renal disease -pt with chronic hyponatremia that has been following with nephrology outpatient - continue IV diuresis for now. Suspect this is cardiorenal in etiology. -Continue to monitor BMP Chronic A fib on eliquis - continue SYSTEMS ENG eliquis - not on rate control, per past notes Toprol resulted in bradycardia Graves disease Subclinical hypothyroidism, likely - TSH w/ reflex T4 suggesting normal T4 with elevated TSH. May be false in the setting of acute illness. - continue SYSTEMS ENG methimazole. - Plan to repeat labs when outpatient, adjust doses accordingly. CHRONIC PROBLEMS: 4.5 cm ascending aortic aneurysm -stable per echocardiogram 04/2021, CTA 09/2021, echo 09/2021, CT scan Jul 2023 MISC -Diet: HH -Stress Ulcer ppx: None -Bowel Regimen: Senna, colace, miralax; Last Bowel Movement: 11/08/23 (11/08/23 1356) -Sleep: Melatonin 3 mg PRN -Laws: None -Rehab: PT/OT -VTE ppx: SYSTEMS ENG Eliquis -Code Status: FULL -Disposition: Med-Surg Patient was seen, examined, and discussed with attending physician Dr. Colt Villegas. Attending Attestation: I have discussed the patient's management with the medical trainee and agree with the note. Please refer to the documented findings and plan of care. The patient's bedside service today consisted of an evaluation. I was present and confirmed the findings of the history and exam. Bg Villegas MD 11/08/2023 4:03 PM * Jhoan Kelley MD - 11/07/2023 12:45 PM EDT Images from the original note were not included. PROGRESS NOTE - CARDIOLOGY [address] [address] Name: Maria Luisa Recinos Age: [age] year old Location: [facility] [place] [facility] [place] [id number] Date: 11/07/2023 Time: 12:45 PM SUMMARY: Maria Luisa Recinos this is an 87-year-old female with past medical history of HOCM (septum, posterior wall, inducible LVOF gradient) mild , mild MS, HTN, HLD, P HTN severe, chronic respiratoryfailure on 3 L oxygen, IPF, who presented with progressive shortness of breath, found to have severe tricuspid regurgitation, lactic acidosis, and with signs and symptoms consistent with a heart failure exacerbation. SUBJECTIVE: ONAE This morning the patient reports that she is "not doing great". She is experiencing muscle cramps in her legs and continues to have exertional dyspnea. She denies any chest pain, headache, dizziness,abdominal pain or nausea. OBJECTIVE: Most Recent Vital Signs: BP: 110 mmHg/60 mmHg (11/07/23 110) Pulse: 86 (11/07/23 110) Temp: 35.89 C (11/07/23 110) Temp Summary: Temp Min: 35.9 C (96.6 F) Max: 36.6 C (97.9 F) SpO2: 91 % (11/07/23 1101) O2 flow rate: 3 L/MIN (11/07/23 0721) Supplemental O2 Delivery: Nasal Cannula (11/07/23720) Vital Signs Last 24 Hours: Systolic BP: Most Recent Systolic BP Av.6 mmHg Min: 93 mmHg Max: 125 mmHg Temperature: Most Recent Temperature Av.2 C Min: 35.89 C Max: 36.61 C Pulse: Pulse Av.4 Min: 77 Max: 88 Respirations: Resp Av.7 Min: 16 Max: 18 SpO2: SpO2 Av % Min: 91 % Max: 100 % Urine Output Urine Output Source: IUBC (laws) (11/07/23 1106) PO: 240 ml (11/07/23 0900) Net IO Since Admission: -700 mL [11/04/23 0710] Scale: 50 Hfam digital with hand rails (11/07/23 0531) BMI: 35.38 (11/03/23 2142) Wt Readings from Last 5 Encounters: 11/07/23 86.4 kg (190 lb 6.4 oz) 11/03/23 84.9 kg (187 lb 2.7 oz) 10/12/23 86.2 kg (190 lb) 10/09/23 85.3 kg (188 lb) 10/05/23 85.6 kg (188 lb 11.2 oz) Weight change: 0.408 kg (14.4 oz) Last Bowel Movement: 11/07/23 (per patient) (11/07/23 09) Cardiology Physical Exam General: Elderly female in NAD Head/Neck: Atraumatic and normocephalic. Eyes: Vision grossly intact. EOM grossly intact. ENT: Hearing grossly intact. Oral mucosa moist. Cardio: Regular rate and rhythm. No appreciable murmurs. No appreciable JVD. Pitting edema in bilateral lower extremities including thighs Pulmonary: NC in place on 3L; No visible signs of respiratory distress or accessory muscle usage. Wheezes appreciated Abdomen: Soft and non-tender to palpation. No rebound, rigidity, or guarding appreciated. Bowel sounds present in all four quadrants. MSK: No musculoskeletal deformities. Skin: Warm, dry, and intact. No obvious rashes or lesions. Neuropsych: Appropriate mood and mentation. LABS: Labs reviewed as indicated below: Lab results within last 7 days (see chart for full results) Units 11/07/23 0616 11/06/23 0611/05/23 1757 Sodium mmol/L 127* 131* 130* Potassium mmol/L 4.3 4.2 4.2 Chloride mmol/L 90* 95* 94* CO2 mmol/L 24 25 25 BUN mg/dL 46* 47* 49* Creatinine mg/dL 1.4* 1.4* 1.4* Lab results within last 7 days (see chart for full results) Units 11/07/23 0616 11/06/23 0612 11/05/23 0626 HGB g/dL 9.3* 9.2* 8.6* HCT % 30.4* 29.9* 28.1* WBC K/uL 11.31* 10.44 10.71 PLT K/uL 330 324 309 Lab results within last 7 days (see chart for full results) Units 11/02/23 1152 11/02/23 0546 11/02/23 0210 Troponin T, High Sensitivity ng/L 70* 76* 73* Lab results within last 7 days (see chart for full results) Units 11/03/23 1921 11/03/23 0530 11/01/23 1336 Protein g/dL 7.2 7.1 7.4 Bilirubin, Total mg/dL 1.8* 1.8* 1.8* Alkaline Phosphatase U/L 170* 161* 140* AST U/L 46* 44* 44* ALT U/L 27 27 27 Latest Reference Range & Units 11/04/23 06:29 Triglycerides <=174 mg/dL 50 Cholesterol <200 mg/dL 49 Non-HDL Cholesterol <=159 mg/dL 25 HDL Cholesterol >49 mg/dL 24 (L) LDL Cholesterol <=129 mg/dL 15 (L): Data is abnormally low Latest Reference Range & Units 11/04/23 06:29 INR 0.8 - 1.2 2.4 (H) Prothrombin Time 11.6 - 15.2 seconds 26.0 (H) (H): Data is abnormally high IMAGING: All overnight imaging reviewed, pertinent information noted below. 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) Acute on chronic respiratory failure with hypoxia (HCC) Pulmonary HTN (HCC) Chronic atrial fibrillation (HCC) 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 CKD (chronic kidney disease) stage 3, GFR 30-59 ml/min (HCC) Resolved Problems: New onset atrial fibrillation (HCC) Acute on chronic systolic/diastolic/right heart failure exacerbation 2/2 to severe TR Pulmonary hypertension Chronic hypoxic respiratory failure on 3 liters 20/02 HTN, HLD Hx of T2 NSTEMI 2/2 HTN Emergency (09/2021) - Patient still with excess fluid present; suspect that due to her RV enlargement and pulmonary hypertension she will continue to have volume overoad - Echo completed at OSH, EKG with chronic T wave inversion in I, aVL - Severe LVH involving septum and posterior wall with history of inducible LVOT gradient Referred to genetic counselor 06/2018 - underwent genetic testing in which no pathogenic variants were identified PLAN -Continue IV lasix 80 mg bid, cont to evaluate volume status -Add Lasix infusion at 20 mg/hr - Monitor strict I/O, maintain Laws cath, daily standing weights and BMP BID -Plan to do right heart catheterization once optimal volume status - Continue SYSTEMS ENG midodrine 5 mg TID; orthostatics today -Continue Spironolactone 12.5 mg -Amb- ox and Noc-ox today -Trial CPAP during night to assess oxygen requirements -Continue aspirin 81 mg, atorvastatin 20 mg qd - Hold SYSTEMS ENG torsemide 40 mg BID - Heart health diet, 2 liters fluid restriction - Continue oxygen via NC at SYSTEMS ENG 3 liters. - Consider CT surgery when volume status is improved Non oliguric CARLOTA on CKD3, likely cardiorenal (stable) Hyponatremia Anemia secondary to renal disease -pt with chronic hyponatremia that has been following with nephrology outpatient - continue IV diuresis for now. Suspect this is cardiorenal in etiology. -Continue to monitor BMP Chronic A fib on eliquis - continue SYSTEMS ENG eliquis - not on rate control, per past notes Toprol resulted in bradycardia - Consider starting BB as above Graves disease Subclinical hypothyroidism, likely - TSH w/ reflex T4 suggesting normal T4 with elevated TSH. May be false in the setting of acute illness. - continue SYSTEMS ENG methimazole. - Plan to repeat labs when outpatient, adjust doses accordingly. CHRONIC PROBLEMS: 4.5 cm ascending aortic aneurysm -stable per echocardiogram 04/2021, CTA 09/2021, echo 09/2021, CT scan Jul [address]23 [facility] [place] -Diet: HH -Stress Ulcer ppx: None -Bowel Regimen: Senna, colace, miralax; Last Bowel Movement: 11/07/23 (per patient) (11/07/23 0900) -Sleep: Melatonin 3 mg PRN -Laws: None -Rehab: PT/OT -VTE ppx: SYSTEMS ENG Eliquis -Code Status: FULL -Disposition: Med-Surg Patient was seen, examined, and discussed with attending physician Dr. Colt Villegas. Associated attestation - Colt Villegas MD - 11/07/2023 1:28 PM EDT I saw and evaluated the patient today. I have reviewed the trainee note and agree. The patient remains volume overloaded. Complaining of leg cramps and dyspnea. Continue high volume diuresis. Following electrolytes, especially sodium. Bg Villegas MD 11/07/2023 1:28 PM * Jhoan Kelley MD - 11/06/2023 1:29 PM EDT Images from the original note were not included. PROGRESS NOTE - CARDIOLOGY [facility] [place] [facility] [place] [address] Name: Maria Luisa Recinos Age: [age] year old Location: [facility] [place] [facility] [place] [id number] Date: 11/06/2023 Time: 1:29 PM SUMMARY: Maria Luisa Recinos this is an 87-year-old female with past medical history of HOCM (septum, posterior wall, inducible LVOF gradient) mild , mild MS, HTN, HLD, P HTN severe, chronic respiratoryfailure on 3 L oxygen, IPF, who presented with progressive shortness of breath, found to have severe tricuspid regurgitation, lactic acidosis, and with signs and symptoms consistent with a heart failure exacerbation. SUBJECTIVE: ONAE This morning the patient reports that she is doing well. She continues to "blancas and puff" even withminor movement such as leaning forward and getting up from the chair. She slept well last night however is not able to lay flat without having shortness of breath. She denies any chest pain, abdominal pain, nausea, headache, dizziness or changes in BM's. OBJECTIVE: Most Recent Vital Signs: BP: 98 mmHg/77 mmHg (11/06/23 120) Pulse: 72 (11/06/23 1207) Temp: 36.72 C (11/06/231206) Temp Summary: Temp Min: 36.1 C (97 F) Max: 36.7 C (98.1 F) SpO2: 97 % (11/06/23 120) O2 flow rate: 3 L/MIN (11/06/23 120) Supplemental O2 Delivery: Nasal Cannula (11/06/231206) Vital Signs Last 24 Hours: Systolic BP: Most Recent Systolic BP Av.7 mmHg Min: 98 mmHg Max: 115 mmHg Temperature: Most Recent Temperature Av.3 C Min: 36.11 C Max: 36.72 C Pulse: Pulse Av.8 Min: 72 Max: 79 Respirations: Resp Av.8 Min: 17 Max: 18 SpO2: SpO2 Av.2 % Min: 96 % Max: 100 % Urine Output Urine Output Source: IUBC (laws) (11/06/23 0731) PO: 480 ml (11/05/23 1219) Net IO Since Admission: -700 mL [11/04/23 0710] Scale: 50 Hfam digital with hand rails (11/06/23 0558) BMI: 35.38 (11/03/23 2142) Wt Readings from Last 5 Encounters: 11/06/23 86 kg (189 lb 8 oz) 11/03/23 84.9 kg (187 lb 2.7 oz) 10/12/23 86.2 kg (190 lb) 10/09/23 85.3 kg (188 lb) 10/05/23 85.6 kg (188 lb 11.2 oz) Weight change: 0.59 kg (1 lb 4.8 oz) Last Bowel Movement: 11/06/23 (11/06/23 0900) Cardiology Physical Exam General: Elderly female in NAD Head/Neck: Atraumatic and normocephalic. Eyes: Vision grossly intact. EOM grossly intact. ENT: Hearing grossly intact. Oral mucosa moist. Cardio: Regular rate and rhythm. No appreciable murmurs. No appreciable JVD. Trace edema in bilateral lower extremities however appearing less fluid overloaded Pulmonary: No visible signs of respiratory distress or accessory muscle usage. Lung villatoro clear toausculation throughout. No appreciable rales, rhonchi, or wheezes. Abdomen: Soft and non-tender to palpation. No rebound, rigidity, or guarding appreciated. Bowel sounds present in all four quadrants. MSK: No musculoskeletal deformities. Skin: Warm, dry, and intact. No obvious rashes or lesions. Neuropsych: Appropriate mood and mentation. LABS: Labs reviewed as indicated below: Lab results within last 7 days (see chart for full results) Units 11/06/23 0612 11/05/23 1757 11/05/23 0626 Sodium mmol/L 131* 130* 130* Potassium mmol/L 4.2 4.2 4.2 Chloride mmol/L 95* 94* 95* CO2 mmol/L 25 25 25 BUN mg/dL 47* 49* 50* Creatinine mg/dL 1.4* 1.4* 1.5* Lab results within last 7 days (see chart for full results) Units 11/06/23 0612 11/05/23 0626 11/04/23 0629 HGB g/dL 9.2* 8.6* 9.7* HCT % 29.9* 28.1* 31.6* WBC K/uL 10.44 10.71 10.89* PLT K/uL 324 309 333 Lab results within last 7 days (see chart for full results) Units 11/02/23 1152 11/02/23 0546 11/02/23 0210 Troponin T, High Sensitivity ng/L 70* 76* 73* Lab results within last 7 days (see chart for full results) Units 11/03/23 1921 11/03/23 0530 11/01/23 1336 Protein g/dL 7.2 7.1 7.4 Bilirubin, Total mg/dL 1.8* 1.8* 1.8* Alkaline Phosphatase U/L 170* 161* 140* AST U/L 46* 44* 44* ALT U/L 27 27 27 Latest Reference Range & Units 11/04/23 06:29 Triglycerides <=174 mg/dL 50 Cholesterol <200 mg/dL 49 Non-HDL Cholesterol <=159 mg/dL 25 HDL Cholesterol >49 mg/dL 24 (L) LDL Cholesterol <=129 mg/dL 15 (L): Data is abnormally low Latest Reference Range & Units 11/04/23 06:29 INR 0.8 - 1.2 2.4 (H) Prothrombin Time 11.6 - 15.2 seconds 26.0 (H) (H): Data is abnormally high IMAGING: All overnight imaging reviewed, pertinent information noted below. XR CHEST 1 VIEW Result Date: 11/03/2023 IMPRESSION 1. Findings suggest moderate CHF, increased compared to prior radiograph. Superimposed infection is difficult to entirely exclude. Could further assess with CT, if clinically indicated. 2.Probable trace bilateral pleural effusions. I have personally reviewed this examination and agree with the resident/fellow physician's interpretation. 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 * Acute on chronic systolic/diastolic/right heart failure exacerbation 2/2 to severe TR Pulmonary hypertension Chronic hypoxic respiratory failure on 3 liters 20/02 HTN, HLD Hx of T2 NSTEMI 2/2 HTN Emergency (09/2021) - Patient appearing close to euvolemic however still having dyspnea on minimal exertion; diuresing well with daily total of -1.3L and net of -2.7L since admission - Echo completed at OSH, EKG with chronic T wave inversion in I, aVL - Severe LVH involving septum and posterior wall with history of inducible LVOT gradient Referred to genetic counselor 06/2018 - underwent genetic testing in which no pathogenic variants were identified PLAN -Continue IV lasix 80 mg bid, cont to evaluate volume status (appearing more euvolemic today however still trace edema present) - Monitor strict I/O, maintain Laws cath, daily standing weights and BMP BID -Discussion on workup for Pulmonary hypertension to be had (pt will require right heart cath to assess etiology) - Continue SYSTEMS ENG midodrine 5 mg TID; orthostatics today -Consider starting Spironolactone 25 mg based on renal function -Continue aspirin 81 mg, atorvastatin 20 mg qd - Consider starting betablocker when volume optimized as it could help in the setting LVOT obstruction. - Hold SYSTEMS ENG torsemide 40 mg BID - Heart health diet, 2 liters fluid restriction - Continue oxygen via NC at SYSTEMS ENG 3 liters. - Consider CT surgery when volume status is improved Non oliguric CARLOTA on CKD, likely cardiorenal (stable) Lactic acidosis , resolved - continue IV diuresis for now. Suspect this is cardiorenal in etiology. A fib on eliquis - continue SYSTEMS ENG eliquis - not on rate control, per past notes Toprol resulted in bradycardia - Consider starting BB as above Graves disease Subclinical hypothyroidism, likely - TSH w/ reflex T4 suggesting normal T4 with elevated TSH. May be false in the setting of acute illness. - continue SYSTEMS ENG methimazole. - Plan to repeat labs when outpatient, adjust doses accordingly. CHRONIC PROBLEMS: 4.5 cm ascending aortic aneurysm -stable per echocardiogram 04/2021, CTA 09/2021, echo 09/2021, CT scan Jul 2023 M[facility] -Diet: HH -Stress Ulcer ppx: None -Bowel Regimen: Senna, colace, miralax; Last Bowel Movement: 11/06/23 (11/06/23 0900) -Sleep: Melatonin 3 mg PRN -Laws: None -Rehab: PT/OT -VTE ppx: SYSTEMS ENG Eliquis -Code Status: FULL -Disposition: Med-Surg Patient was seen, examined, and discussed with attending physician Dr. Colt Villegas. Associated attestation - Colt Villegas MD - 11/06/2023 9:15 PM EDT I saw and evaluated the patient today. I have reviewed the trainee note and agree. Bg Villegas MD 11/06/2023 9:15 PM * Jhoan Kelley MD - 11/05/2023 4:13 PM EDT Images from the original note were not included. PROGRESS NOTE - CARDIOLOGY [address] [address] Name: Maria Luisa Recinos Age: [age] year old Location: [facility] [place] [facility] [place] [id number] Date: 11/05/2023 Time: 4:18 PM SUMMARY: Maria Luisa Recinos this is an 87-year-old female with past medical history of HOCM (septum, posterior wall, inducible LVOF gradient) mild , mild MS, HTN, HLD, P HTN severe, chronic respiratoryfailure on 3 L oxygen, IPF, who presented with progressive shortness of breath, found to have severe tricuspid regurgitation, lactic acidosis, and with signs and symptoms consistent with a heart failure exacerbation. SUBJECTIVE: ONAE This morning the patient reports that she is doing well. She states that she still feels like she has extra volume on her. Currently with 3L O2 NC (baseline) she does not have any shortness of breath. She also denies any chest pain, headache, dizziness, nausea or abdominal pain. OBJECTIVE: Most Recent Vital Signs: BP: 115 mmHg/77 mmHg (11/05/231599) Pulse: 78 (11/05/231599) Temp: 36.39 C (11/05/231599) Temp Summary: Temp Min: 35.9 C (96.6 F) Max: 36.4 C (97.5 F) SpO2: 100 % (11/05/231599) O2 flow rate: 3 L/MIN (11/05/231599) Supplemental O2 Delivery: Nasal Cannula (11/05/231599) Vital Signs Last 24 Hours: Systolic BP: Most Recent Systolic BP Av.5 mmHg Min: 95 mmHg Max: 115 mmHg Temperature: Most Recent Temperature Av.2 C Min: 35.89 C Max: 36.39 C Pulse: Pulse Av.5 Min: 70 Max: 86 Respirations: Resp Av.4 Min: 18 Max: 20 SpO2: SpO2 Av.5 % Min: 95 % Max: 100 % Urine Output Urine Output Source: IUBC (laws) (11/04/23 2300) PO: 480 ml (11/05/23 1219) Net IO Since Admission: -700 mL [11/04/23 0710] Scale: 50 Hfam digital with hand rails (11/05/23 0650) BMI: 35.38 (11/03/23 2142) Wt Readings from Last 5 Encounters: 11/05/23 85.4 kg (188 lb 3.2 oz) 11/03/23 84.9 kg (187 lb 2.7 oz) 10/12/23 86.2 kg (190 lb) 10/09/23 85.3 kg (188 lb) 10/05/23 85.6 kg (188 lb 11.2 oz) Weight change: 0.467 kg (1 lb 0.5 oz) Last Bowel Movement: 11/05/23 (Per Patient) (11/05/23 0900) Cardiology Physical Exam General: Elderly female in NAD Head/Neck: Atraumatic and normocephalic. Eyes: Vision grossly intact. EOM grossly intact. ENT: Hearing grossly intact. Oral mucosa moist. Cardio: Regular rate and rhythm. No appreciable murmurs. No appreciable JVD. Trace edema in bilateral lower extremities Pulmonary: No visible signs of respiratory distress or accessory muscle usage. Lung villatoro clear toausculation throughout. No appreciable rales, rhonchi, or wheezes. Abdomen: Soft and non-tender to palpation. No rebound, rigidity, or guarding appreciated. Bowel sounds present in all four quadrants. MSK: No musculoskeletal deformities. Skin: Warm, dry, and intact. No obvious rashes or lesions. Neuropsych: Appropriate mood and mentation. LABS: Labs reviewed as indicated below: Lab results within last 7 days (see chart for full results) Units 11/05/23 0611/04/23 19411/04/23 0629 Sodium mmol/L 130* 128* 132* Potassium mmol/L 4.2 3.7 4.1 Chloride mmol/L 95* 91* 94* CO2 mmol/L 25 25 23 BUN mg/dL 50* 51* 51* Creatinine mg/dL 1.5* 1.4* 1.4* Lab results within last 7 days (see chart for full results) Units 11/05/23 0626 11/04/23 0629 11/03/23 1922 HGB g/dL 8.6* 9.7* 9.8* HCT % 28.1* 31.6* 31.6* WBC K/uL 10.71 10.89* 9.84 PLT K/uL 309 333 331 Lab results within last 7 days (see chart for full results) Units 11/02/23 1152 11/02/23 0546 11/02/23 0210 Troponin T, High Sensitivity ng/L 70* 76* 73* Lab results within last 7 days (see chart for full results) Units 11/03/23 1921 11/03/23 0530 11/01/23 1336 Protein g/dL 7.2 7.1 7.4 Bilirubin, Total mg/dL 1.8* 1.8* 1.8* Alkaline Phosphatase U/L 170* 161* 140* AST U/L 46* 44* 44* ALT U/L 27 27 27 Latest Reference Range & Units 11/04/23 06:29 Triglycerides <=174 mg/dL 50 Cholesterol <200 mg/dL 49 Non-HDL Cholesterol <=159 mg/dL 25 HDL Cholesterol >49 mg/dL 24 (L) LDL Cholesterol <=129 mg/dL 15 (L): Data is abnormally low Latest Reference Range & Units 11/04/23 06:29 INR 0.8 - 1.2 2.4 (H) Prothrombin Time 11.6 - 15.2 seconds 26.0 (H) (H): Data is abnormally high IMAGING: All overnight imaging reviewed, pertinent information noted below. XR CHEST 1 VIEW Result Date: 11/03/2023 IMPRESSION 1. Findings suggest moderate CHF, increased compared to prior radiograph. Superimposed infection is difficult to entirely exclude. Could further assess with CT, if clinically indicated. 2.Probable trace bilateral pleural effusions. I have personally reviewed this examination and agree with the resident/fellow physician's interpretation. 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 * Acute on chronic systolic/diastolic/right heart failure exacerbation 2/2 to severe TR, pulmonary HTN in the setting of HOCM Chronic hypoxic respiratory failure on 3 liters 20/02 HTN, HLD Hx of T2 NSTEMI 2/2 HTN Emergency (09/2021) - Important to maintain optimal volume status in the setting of left ventricular outflow tract obstruction resulting from HOCM. As too much diuresis will decrease preload and worsen obstruction - Patient appearing close to euvolemic however still having dyspnea on minimal exertion - Echo completed at OSH, EKG with chronic T wave inversion in I, aVL - Severe LVH involving septum and posterior wall with history of inducible LVOT gradient Referred to genetic counselor 06/2018 - underwent genetic testing in which no pathogenic variants were identified PLAN -Continue IV lasix 80 mg bid, cont to evaluate volume status - Monitor strict I/O, maintain Laws cath, daily standing weights and BMP BID - Continue SYSTEMS ENG midodrine 5 mg TID -Continue aspirin 81 mg, atorvastatin 20 mg qd - Consider starting betablocker when volume optimized as it could help in the setting LVOT obstruction. - Hold SYSTEMS ENG torsemide 40 mg BID - Heart health diet, 2 liters fluid restriction - Continue oxygen via NC at SYSTEMS ENG 3 liters. - Consider CT surgery when volume status is improved Non oliguric CARLOTA on CKD, likely cardiorenal (stable) Lactic acidosis , resolved - continue IV diuresis for now. Suspect this is cardiorenal in etiology. - Follow lactate given upwards trend, some of this may be delayed clearance - OK to d/c once down trending. A fib on eliquis - continue SYSTEMS ENG eliquis - not on rate control, per past notes Toprol resulted in bradycardia? - Consider starting BB as above Graves disease Subclinical hypothyroidism, likely - TSH w/ reflex T4 suggesting normal T4 with elevated TSH. May be false in the setting of acute illness. - continue SYSTEMS ENG methimazole. - Plan to repeat labs when outpatient, adjust doses accordingly. CHRONIC PROBLEMS: 4.5 cm ascending aortic aneurysm -stable per echocardiogram 04/2021, CTA 09/2021, echo 09/2021, CT scan Jul 2023 MISC -Diet: HH -Stress Ulcer ppx: None -Bowel Regimen: Senna, colace, miralax; Last Bowel Movement: 11/05/23 (Per Patient) (11/05/23 0900) -Sleep: Melatonin 3 mg PRN -Laws: None -Rehab: PT/OT placed today -VTE ppx: SYSTEMS ENG Eliquis -Code Status: FULL -Disposition: Med-Surg Patient was seen, examined, and discussed with attending physician Dr. Colt Villegas. Associated attestation - Colt Villegas MD - 11/05/2023 10:48 PM EDT I saw and evaluated the patient today. I have reviewed the trainee note and agree. Bg Villegas MD 11/05/2023 10:48 PM * Colt Villegas MD - 11/04/2023 7:09 AM EDT Images from the original note were not included. PROGRESS NOTE - CARDIOLOGY [facility] [place] [facility] [place] [address] Name: Maria Luisa Recinos Age: [age] year old Location: [facility] [place] [facility] [place] H858/[id number] Date: 11/04/2023 Time: 2:16 PM SUMMARY: Maria Luisa Recinos this is an 87-year-old female with past medical history of HOCM (septum, posterior wall, inducible LVOF gradient) mild , mild MS, HTN, HLD, P HTN severe, chronic respiratoryfailure on 3 L oxygen, IPF, who presented with progressive shortness of breath, found to have severe tricuspid regurgitation, lactic acidosis, and with signs and symptoms consistent with a heart failure exacerbation. SUBJECTIVE: No acute events reported overnight by night team or nursing staff. Tele Events Overnight: none On interview this AM: Indicates she is doing well, remains chest pain-free. Does indicate that she still feels a bit volume up. No nausea, vomiting, chest pain, palpitations. OBJECTIVE: Most Recent Vital Signs: BP: 111 mmHg/70 mmHg (11/04/23 112) Pulse: 86 (11/04/23 05) Temp: 36.89 C (11/04/231121) Temp Summary: Temp Min: 36.4 C (97.5 F) Max: 37.2 C (99 F) SpO2: 95 % (11/04/231121) O2 flow rate: 3 L/MIN (11/04/231121) Supplemental O2 Delivery: Nasal Cannula (11/04/231121) Vital Signs Last 24 Hours: Systolic BP: Most Recent Systolic BP Av.6 mmHg Min: 94 mmHg Max: 111 mmHg Temperature: Most Recent Temperature Av.8 C Min: 36.39 C Max: 37.22 C Pulse: Pulse Av.3 Min: 76 Max: 88 Respirations: Resp Av.2 Min: 8 Max: 24 SpO2: SpO2 Av.5 % Min: 93 % Max: 100 % Urine Output Urine Output Source: IUBC (laws) (11/04/23 08) PO: 240 ml (11/04/23 0800) Net IO Since Admission: -700 mL [11/04/23 0710] BMI: 35.38 (11/03/232141) Wt Readings from Last 5 Encounters: 11/03/23 84.9 kg (187 lb 2.7 oz) 11/03/23 84.9 kg (187 lb 2.7 oz) 10/12/23 86.2 kg (190 lb) 10/09/23 85.3 kg (188 lb) 10/05/23 85.6 kg (188 lb 11.2 oz) Weight change: Last Bowel Movement: 11/03/23 (11/03/231957) Cardiology Physical Exam General: Pleasant, obese female HEENT: Moist mucous membranes, clear conjunctiva bilaterally, EOMI Cardiac: - RRR, Normal S1, S2 - no Murmur - no appreciable JVP - 2+ pitting edema to the thighs Pulmonary: clear to auscultation in all lung villatoro, good airway movement, no wheezing, rales or rhonchi Abdominal: soft, non-tender, without organomegaly or masses. Extremity: no lesions noted Vasc: 2+ dorsalis pedis pulses, 2+ radial pulses MSK: normal muscle bulk and tone, no apparent joint deformities or swelling Skin: color, texture and temperature normal, turgor normal, No abnormal skin lesions noted, No evidence of rash, and No itching Neuro: alert, oriented x3, no gross movement abnormalities, CN II-XII grossly intact. LABS: Labs reviewed as indicated below: Lab results within last 7 days (see chart for full results) Units 11/04/23 0629 11/03/23192011/03/23 0530 Sodium mmol/L 132* 132* 134* Potassium mmol/L 4.1 4.2 4.9 Chloride mmol/L 94* 93* 96* CO2 mmol/L 23 26 25 BUN mg/dL 51* 49* 55* Creatinine mg/dL 1.4* 1.4* 1.5* Lab results within last 7 days (see chart for full results) Units 11/04/23 0629 11/03/23192111/03/23 0530 HGB g/dL 9.7* 9.8* 9.1* HCT % 31.6* 31.6* 30.3* WBC K/uL 10.89* 9.84 9.69 PLT K/uL 333 331 305 Lab results within last 7 days (see chart for full results) Units 11/02/23 1152 11/02/23 0546 11/02/23 0210 Troponin T, High Sensitivity ng/L 70* 76* 73* Lab results within last 7 days (see chart for full results) Units 11/03/23 19211/03/23 0530 11/01/23 1336 Protein g/dL 7.2 7.1 7.4 Bilirubin, Total mg/dL 1.8* 1.8* 1.8* Alkaline Phosphatase U/L 170* 161* 140* AST U/L 46* 44* 44* ALT U/L 27 27 27 Latest Reference Range & Units 11/04/23 06:29 Triglycerides <=174 mg/dL 50 Cholesterol <200 mg/dL 49 Non-HDL Cholesterol <=159 mg/dL 25 HDL Cholesterol >49 mg/dL 24 (L) LDL Cholesterol <=129 mg/dL 15 (L): Data is abnormally low Latest Reference Range & Units 11/04/23 06:29 INR 0.8 - 1.2 2.4 (H) Prothrombin Time 11.6 - 15.2 seconds 26.0 (H) (H): Data is abnormally high IMAGING: All overnight imaging reviewed, pertinent information noted below. XR CHEST 1 VIEW Result Date: 11/03/2023 IMPRESSION 1. Findings suggest moderate CHF, increased compared to prior radiograph. Superimposed infection is difficult to entirely exclude. Could further assess with CT, if clinically indicated. 2.Probable trace bilateral pleural effusions. I have personally reviewed this examination and agree with the resident/fellow physician's interpretation. US ABDOMEN LIMITED Result Date: 11/02/2023 IMPRESSION: Normal caliber common bile duct. 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 * Acute on chronic systolic/diastolic/right heart failure exacerbation 2/2 to severe TR, pulmonary HTN in the setting of HOCM Chronic hypoxic respiratory failure on 3 liters 20/02 HTN, HLD Hx of T2 NSTEMI 2/2 HTN Emergency (09/2021) - Important to maintain optimal volume status in the setting of left ventricular outflow tract obstruction resulting from HOCM. As too much diuresis will decrease preload and worsen obstruction - Patient appears to be nearing euvolemic state. Baseline O2, minimal JVD, trace LE edema. - Echo completed at OSH, EKG with chronic T wave inversion in I, aVL - Severe LVH involving septum and posterior wall with history of inducible LVOT gradient Referred to genetic counselor 06/2018 - underwent genetic testing in which no pathogenic variants were identified PLAN - IV lasix 80 mg bid, cont to evaluate volume status - Monitor strict I/O, maintain Laws cath, daily standing weights and BMP BID - Continue SYSTEMS ENG midodrine 5 mg TID -Continue aspirin 81 mg, atorvastatin 20 mg qd - Consider starting betablocker when volume optimized as it could help in the setting LVOT obstruction. - Hold SYSTEMS ENG torsemide 40 mg BID - Heart health diet, 2 liters fluid restriction - Continue oxygen via NC at SYSTEMS ENG 3 liters. Consider HFNC - Consider CT surgery when volume status is improved Non oliguric CARLOTA on CKD, likely cardiorenal Lactic acidosis , resolved - continue IV diuresis for now. Suspect this is cardiorenal in etiology. - Follow lactate given upwards trend, some of this may be delayed clearance - OK to d/c once down trending. A fib on eliquis - continue SYSTEMS ENG eliquis - not on rate control, per past notes Toprol resulted in bradycardia? - Consider starting BB as above Graves disease Subclinical hypothyroidism, likely - TSH w/ reflex T4 suggesting normal T4 with elevated TSH. May be false in the setting of acute illness. - continue SYSTEMS ENG methimazole. - Plan to repeat labs when outpatient, adjust doses accordingly. CHRONIC PROBLEMS: 4.5 cm ascending aortic aneurysm -stable per echocardiogram 04/2021, CTA 09/2021, echo 09/2021, CT scan Jul 2023 MISC -Diet: HH -Stress Ulcer ppx: None -Bowel Regimen: Senna, colace, miralax; Last Bowel Movement: 11/03/23 (11/03/231957) -Sleep: Melatonin 3 mg PRN -Laws: None -Rehab: PT/OT--recs: pending -VTE ppx: SYSTEMS ENG Eliquis -Code Status: FULL -Disposition: Med-Surg EXPECTED DISCHARGE DATE: 2 days or more DISCHARGE NEEDS: Patient was seen, examined, and discussed with attending physician Dr. Colt Villegas. Juliana Levi MD, [facility] Internal Medicine and Pediatrics, PGY-2 documented in this encounter H&P Notes * Colt Villegas MD - 11/03/2023 6:58 PM EDT Images from the original note were not included. 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 Per family present at the bedside she was instructed to take 40 mg of torsemide a.m. and again at noon. If her weight increased by 3 lb she was advised to take an additional 10 mg oftorsemide which she had been doing for 5 days prior to her hospitalization. Despite these aggressive measures her weight remained unchanged and she was becoming more dyspneic. On the day of her hospitalization, daughter says that it was impossible for her to move from the chair to the car which prompted their called EMS on 10/31. She arrived to [facility] acutely distressed with pursed lip breathing and cyanotic lips. She was placed on BiPAP and Lasix drip. Notably at the time she was found to have lactic acidosis, hyponatremia, elevated LFTs and bilirubin that were attributed to hypovolemia and congestive hepatopathy respectively. Her troponins were elevated with signs of lateral ischemia though this was due to likely demand. Within 24 hours she had dropped 17 lb. An echocardiogram was obtained that showed severe TR severe pulmonary hypertension, dilated IVC and abnormal septal motion concerning for elevated RV pressures and volume overload. She was weaned from BiPAP to nasal cannula and was provided a Lasix holiday but was placed back on Lasix drip on the day of transfer (11/02) due to weight gain. On evaluation at [facility] she was accompanied by her son and daughter at the bedside. She appears comfortable and says that her breathing is much better at rest. They tell me that Maria Luisa was doing well, driving independent with ADLs, not requiring oxygen all prior to July 2023. However she has since required multiple admissions for heart failure exacerbation despite being compliant with diuretics and dietary changes. She suffers from orthopnea and lower extremity edema bilaterally. Especially when she is fluid overloaded. Denies PND. She has also been requiring 3 L of oxygenvia nasal cannula since she had COVID in August 2023. She was also being evaluated by Pulmonary Medicine for IPF. She denies fevers, chills, nausea, vomiting, diarrhea, constipation, chest tightness, heaviness . Patient lives at home by herself. Her son lives right next door and her daughter lives close by as well. She normally is able to perform ADLs but not recently. She requires 3 L of oxygen chronically since July and it is /. She wishes to be a full code during this hospitalization and understands this until CPR and intubation. In the event that she needs prolonged time on the ventilator she un derstands that her children would be making decisions on her behalf. Echocardiogram 11/02/2023 nterpretation Summary The examination is limited quality but [...] indicates an elevated right atrial pressure of 15mmHg Subjective Patient's past history, medications, and allergies were reviewed. Objective Physical Exam Most Recent Vital Signs: BP: 110 mmHg/71 mmHg (11/03/231957) Pulse: 76 (11/03/231957) Temp: 37.22 C (11/03/231957) Temp Summary: Temp Min: 37.2 C (99 F) Max: 37.2 C (99 F) SpO2: 100 % (11/03/231957) O2 flow rate: 3 L/MIN (11/03/231957) Supplemental O2 Delivery: Nasal Cannula (11/03/231957) Elderly female, NAD, alert and oriented, wearing 3 liters oxygen via NC, appears comfortable with breathing, regular rate and rhythm, diastolic murmur, mild appreciable JVD up to mid neck line, abdomen soft, nontender throughout, Laws cath in place, trace lower extremity edema bilaterally up to the thigh. Skin is warm, palpable pulses, normal skin color. STUDIES: Encounter Orders Labs and other studies reviewed with pertinent findings noted below: Trop since outside hospital 61, 64, 72, 73, 76, 70, BNP 11677 Sodium 128, 133, 134, 132 Potassium 4.2 Creatinine trend 1.3, 1.5, 1.5, 1.4 GFR 36 CBC 9.8 K, hemoglobin 9.8, platelets 331 Liver chemistries AST 46 ALT 27 alk-phos 170, T bili 1.8 Abdominal ultrasound FINDINGS: Liver: Normal. No masses. Gallbladder: The gallbladder is surgically absent. Biliary ducts: Normal. No stones. No dilation. Pancreas: Visualized pancreas is unremarkable. Right kidney: No hydronephrosis. IMPRESSION: Normal caliber common bile duct. Assessment and Plan IMPRESSION: Principal Problem: Hypertrophic cardiomyopathy (HCC) Active Problems: Ascending aortic aneurysm (HCC) Coronary artery disease involving [place] coronary artery of [place] heart without angina pectoris Essential hypertension with goal blood pressure less than 140/90 Graves disease 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) Acute on chronic respiratory failure with hypoxia (HCC) Pulmonary HTN (HCC) New onset atrial fibrillation (HCC) Atrial fibrillation (HCC) Resolved Problems: * No resolved hospital problems. * DIFFERENTIAL AND PLAN: Maria Luisa Recinos is a 87 year old female with PMHx of systolic/diastolic valvular heart failure, a fib on eliquis, chronic hypoxic respiratory failure on 3 liters 24, HTN, HLD and hypertrophic CM who initially presented to [facility] with progressive shortness of breath and was found to have acute on chronic heart failure exacerbation likely secondary to valvular etiology in the setting of HOCM. Patient was placed on a Lasix drip and BiPAP at outside hospital with reported 17 lb weight loss within 24 hours and improvement in hyponatremia, lactic acidosis and congestive hepatopathy. She was transferred to [facility] for further volume optimization and potential evaluation by Cardiac surgery for valvular repair? Acute on chronic systolic/diastolic heart failure exacerbation 2/2 to severe TR, pulmonary HTN in the setting of HOCM Chronic hypoxic respiratory failure on 3 liters 24/7 HTN, HLD - Story is as above. - Important to maintain optimal volume status in the setting of left ventricular outflow tract obstruction resulting from HOCM. As too much diuresis will decrease preload and worsen obstruction - Patient appears to be nearing euvolemic state. Baseline O2, minimal JVD, trace LE edema. - Echo completed at OSH, EKG with chronic T wave inversion in I, aVL - Stop lasix gtt. Start IV lasix 80 mg bid, first dose now. - Monitor strict I/O, maintain Laws cath, daily standing weights and BMP BID - Continue SYSTEMS ENG midodrine 5 mg TID -Continue aspirin 81 mg, atorvastatin 20 mg qd - Consider starting betablocker when volume optimized as it could help in the setting LVOT obstruction. - Hold SYSTEMS ENG torsemide 40 mg BID - Heart health diet, 2 liters fluid restriction - Continue oxygen via NC at SYSTEMS ENG 3 liters. Consider BIPAP if worsening respiratory status - Consider CT surgery when volume status is improved Non oliguric CARLOTA on CKD, likely cardiorenal Lactic acidosis , resolved - continue IV diuresis for now. Suspect this is cardiorenal in etiology - Follow lactate x1. A fib on eliquis - continue SYSTEMS ENG eliquis - not on rate control, per past notes Toprol resulted in bradycardia? - Consider starting BB as above Graves disease Subclinical hypothyroidism ? - TSH w/ reflex T4 suggesting normal T4 with elevated TSH. May be false in the setting of acute illness. - continue SYSTEMS ENG methimazole. - Plan to repeat labs when outpatient, adjust doses accordingly. PHARMACOLOGIC VTE PROPHYLAXIS:Apixaban Apixaban Tabs CODE STATUS: Full Code EXPECTED DISCHARGE DATE: No information available This patient was discussed with Fellow physician at the time of admission. I saw and evaluated the patient today. I did not see her on the day of admission. I have reviewed the trainee note and agree. Bg Villegas MD 11/04/2023 1:20 PM documented in this encounter Procedure Notes * Philippe Méndez MD - 11/03/2023 8:08 PM EDTAssociated Order(s): EKG REASON FOR STUDY: SOB CONCLUSIONS: Atrial fibrillation with a competing junctional pacemaker Cannot rule out Anterior infarct , age undetermined Marked ST abnormality, possible lateral subendocardial injury Abnormal ECG When compared with ECG of 01-Nov-2023 13:06, No significant change was found Ventricular Rate: 78 Atrial Rate: 87 QRS Duration: 106 QT/QTc: 410/467 ms P-R-T [place]: 0 : -24 : 149 degrees documented in this encounter Consult Notes * Beny Carrizales, OT - 11/06/2023 10:47 AM EDTAssociated Order(s): ADULT OCCUPATIONAL THERAPY CONSULT IP GENERAL EVALUATION- Occupational Therapy [facility] [place] [id number] Name: Maria Luisa Recinos Location: [facility] [place] H858/A Date: 11/06/2023 Time: 10:47 AM HPI: Per EPIC, "Maria Luisa is an 87-year-old female with past medical history of - hypertrophic cardiomyopathy involving the septum and posterior wall with associated inducible LV outflow tract gradient - 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 Per family present at the bedside she was instructed to take 40 mg of torsemide a.m. and again at noon. If her weight increased by 3 lb she was advised to take an additional 10 mg oftorsemide which she had been doing for 5 days prior to her hospitalization. Despite these aggressive measures her weight remained unchanged and she was becoming more dyspneic. On the day of her hospitalization, daughter says that it was impossible for her to move from the chair to the car which prompted their called EMS on 10/31. She arrived to [facility] acutely distressed with pursed lip breathing and cyanotic lips. She was placed on BiPAP and Lasix drip. Notably at the time she was found to have lactic acidosis, hyponatremia, elevated LFTs and bilirubin that were attributed to hypovolemia and congestive hepatopathy respectively. Her troponins were elevated with signs of lateral ischemia though this was due to likely demand. Within 24 hours she had dropped 17 lb. An echocardiogram was obtained that showed severe TR severe pulmonary hypertension, dilated IVC and abnormal septal motion concerning for elevated RV pressures and volume overload. She was weaned from BiPAP to nasal cannula and was provided a Lasix holiday but was placed back on Lasix drip on the day of transfer (11/02) due to weight gain. On evaluation at [facility] she was accompanied by her son and daughter at the bedside. She appears comfortable and says that her breathing is much better at rest. They tell me that Maria Luisa was doing well, driving independent with ADLs, not requiring oxygen all prior to July 2023. However she has since required multiple admissions for heart failure exacerbation despite being compliant with diuretics and dietary changes. She suffers from orthopnea and lower extremity edema bilaterally. Especially when she is fluid overloaded. Denies PND. She has also been requiring 3 L of oxygenvia nasal cannula since she had COVID in August 2023. She was also being evaluated by Pulmonary Medicine for IPF. She denies fevers, chills, nausea, vomiting, diarrhea, constipation, chest tightness, heaviness . Patient lives at home by herself. Her son lives right next door and her daughter lives close by as well. She normally is able to perform ADLs but not recently. She requires 3 L of oxygen chronically since July and it is 24/. She wishes to be a full code during this hospitalization and understands this until CPR and intubation. In the event that she needs prolonged time on the ventilator she un derstands that her children would be making decisions on her behalf." Patient Status: Inpatient Insurance: Payor: MEDICARE Plan: MEDICARE A AND B Product Type: *No Product type* Payor: [facility] Plan: [id number] 65 MEDICARE SUPPLEMENT Product Type: *No Product type* Patient Seen: at bedside, nursing cleared patient for therapy Patient Identified By: Name, ID Band and Date Diagnosis: shortness of breath (11/06/231032) Status of treatment: Evaluation completed (11/06/231032) Orders: OT evaluation and treatment;OT OOB (11/06/231032) Weight Bearing Status: Weight bearing as tolerated (11/06/231032) Precautions: Alarms;Falls;Safety (11/06/231032) Total Treatment Time: 15 (11/06/231032) Past Medical History: Past Medical History: Diagnosis [...] by Rodri Jacobs MD at CARDIAC LABS [facility] [place] LAP;W/HYSTERECTOMY AR CHOLECYSTECTOMY Social History/Disposition Lives with: Alone (11/06/231032) Assistance available: Yes (11/06/231032) Dwelling type: Single story home (11/06/231032) Entry steps: 2 (11/06/231032) Inside steps: None (11/06/231032) Bedroom location: 1st floor (11/06/231032) Bath location: 1st floor full bath (11/06/231032) Prior Level of Function Reported by: Patient (11/06/231032) Ambulation: Ambulatory with device (11/06/231032) Ambulatory Device: Rolling walker (11/06/231032) Grooming: Independent (11/06/231032) Bathing: Independent (11/06/231032) Dressing: Independent (11/06/231032) Feeding: Independent (11/06/231032) Toileting: Independent (11/06/231032) Durable Medical Equipment at home: Rolling walker (11/06/231032) Observations Consciousness: Alert (11/06/231032) Orientation: Oriented times 4 (11/06/231032) Psychosocial: Patient can communicate basic needs;Patient can converse in a social setting (11/06/231032) Sitting posture: Forward head;Rounded shoulders (11/06/231032) Standing posture: Forward head;Rounded shoulders (11/06/231032) Safety awareness: The Patient verbalizes insight of current deficits.;The Patient demonstrates carryover of insight during functional tasks. (11/06/231032) Pain: Patient has no complaints of pain Current Functional Status: UE Strength/ROM: BUE are WFL and 4/5 throughout except shoulders (3-/5) OT Transfers Sit-Stand: Contact Guard (11/06/231032) Stand-Sit: Contact Guard (11/06/231032) Functional Ambulation Assistive Device: Rolling walker (11/06/231032) Distance in feet:: 10 (11/06/231032) Level of Assistance: Contact Guard (11/06/231032) Self Care Able to provide self care: Yes (11/06/231032) Balance Sit (Static): Fair (11/06/231032) Sit (Dynamic): Fair (11/06/231032) Stand (Static): Fair (11/06/231032) Stand (Dynamic): (Fair-) (11/06/231032) Dressing Upper Body: Minimal Assistance (to don gown) (11/06/231032) Lower Body: Dependent (to don socks) (11/06/231032) Equipment Equipment used in Therapy: Rolling walker (11/06/231032) Patient and or Family Goal(s): None Alarm Status Patient positioned in: Chair (11/06/231032) With: Call leon in reach (No alarm at start of session) (11/06/231032) Following session patient seated OOB in chair with chair alarm activated and cord plugged into callbell system. Treatment Provided: Evaluation Moderate Complexity 15 minutes - 20603: Patient was cooperative during treatment session. Moderate complexity evaluation performed and 3-5 activity limitations were identified, including ADL deficit and functional mobility deficit. Minimal or moderate modification of the functional task was necessary to complete the evaluation. Patient Education Education Topic: Role of OT;Plan of care goals (11/06/231032) Review of Precautions: Safety;Fall (11/06/231032) Method of Education: Verbalized to patient (11/06/231032) Education Provided to: Patient (11/06/231032) Response to Education: Receptive and agreeable to education (11/06/231032) Barriers to learning: None (11/06/231032) Preferred learning method: Combination (11/06/231032) Method of Education: Verbal discussion and explanation provided to patient: verbalized understanding and or agreement of this information Assessment: Patient is an 87 year old female admitted on 11/03/23 being seen for shortness of breath.She was previously living at home and reports being independent for ADLs/mobility. On exam, patientpresented OOB in chair. She required total assistance to manage socks as she could not reach LEs, however, reports she has access to adaptive dressing equipment at home. Patient was able to ambulate in room using walker with contact guarding due to unsteadiness, with overall mobility limited by fatigue at this time. She would benefit from ongoing acute OT services to improve function. Please consider post-acute care services which may include home health, shelter, outpatient therapy or inpatient rehabilitation. The level of care will be determined in collaboration with patient, family/caregiver and care team members. AM-PAC Help From Another Person Eating Meals: None (11/06/231032) Help From Another Person Taking Care of Personal Grooming: None (11/06/231032) Help From Another Person To Put On/Take Off Upper Body Clothing: A little (11/06/231032) Help From Another Person To Put On/Take Off Lower Body Clothing: Total (11/06/231032) Help From Another Person Toileting: A lot (11/06/231032) Help From Another Person Bathing: A lot (11/06/231032) OT AM-PAC Score: 16 (11/06/231032) OT AM-PAC t-Scale Score: 35.96 (11/06/231032) HLM (Highest Level of Mobility) Goal: Level 5 standing (1 or more minutes) (11/05/23 0900) A portion of this AM-PAC assessment not scored based on functional assessment; rather clinical decision making was utilized based on current findings and/or prior level of function. Please refer to future AM-PAC calculations of functional ability as they become available. Deficits requiring O.T. treatment needs: ADL/self- care;Balance;Endurance;Functional mobility;IADL;Safety;Upper extremity strength;Weakness (11/06/23 1033) Goals: Increase Strength of BUE by one grade throughout Demonstrate sitting Balance of Fair+ Demonstrate standing Balance of Fair+ Demonstrate self care at modified independence for all UB and LB tasks using AE PRN Demonstrate toileting with modified independence Demonstrate Bed Mobility with modified independence Demonstrate Transfers with modified independence Demonstrate Functional Ambulation with modified independence Treatment Plan: Accuracy with Precautions, Safety, Bed mobility training, Functional Ambulation, Transfer training, Coordination Tasks, Upper extremity strengthening, Balance activities, ADL training, and Endurance Goal Time Frame:8 visits Anticipated Frequency (on eval): 1 to 3 times per week (11/06/23 1033) * Albert Faith, PT - 11/06/2023 10:25 AM EDTAssociated Order(s): ADULT PHYSICAL THERAPY CONSULT IP GENERAL EVALUATION - Physical Therapy [address] [id number] Name: Maria Luisa Recinos Location: [facility] [place] H858/A Date: 11/06/2023 Time: 1025 Maria Luisa Recinos is a/an 87 year old female. Patient Status: Inpatient Insurance: Payor: MEDICARE Plan: MEDICARE A AND B Product Type: *No Product type* Payor: [facility] ([employer]) Plan: SECURITY 65 MEDICARE SUPPLEMENT Product Type: *No Product type* Patient Seen: at bedside, nursing cleared patient for therapy Patient Identified By: Name, ID Band and Date Diagnosis: CHF (11/06/23 1025) Status of treatment: Evaluation completed (11/06/23 1025) Orders: PT evaluation and treatment;OOB (11/06/23 1025) Weight Bearing Status: Weight bearing as tolerated (11/06/23 1025) Precautions: Alarms;Falls;Safety;Oxygen (11/06/23 1025) Total Treatment Time--free text: 15 (11/06/23 1025) Past Medical History: Past Medical History: Diagnosis [...] by Rodri Jacobs MD at CARDIAC LABS [facility] [place] LAP;W/HYSTERECTOMY AR CHOLECYSTECTOMY Subjective: Pt awake in chair, agreeable to PT. Social History/Disposition Lives with: Alone (11/06/23 1033) Assistance available: Yes (11/06/23 1033) Dwelling type: Single story home (11/06/23 1033) Entry steps: 2 (11/06/23 1033) Inside steps: None (11/06/23 1033) Bedroom location: 1st floor (11/06/23 1033) Bath location: 1st floor full bath (11/06/23 1033) Prior Level of Function Reported by: Patient (11/06/23 1025) Ambulation: Ambulatory with device (11/06/23 1025) Ambulatory Device: Rolling walker (11/06/23 1025) Devices at home: Rolling walker (11/06/23 1025) Observations Consciousness: Alert (11/06/23 1025) Orientation: Oriented times 4 (11/06/23 1025) Psychosocial: Patient can communicate basic needs;Patient can converse in a social setting (11/06/23 1025) Other Findings: Yes (11/06/23 1025) Findings: Light touch sensation (11/06/23 1025) Light Touch Sensation Results: Intact;LLE;RLE (11/06/23 1025) Sitting Posture: Forward head;Rounded shoulders (11/06/23 1025) Standing Posture: Forward head;Rounded shoulders (11/06/23 1025) Pain: No complaints of pain Range of Motion Range of Motion: WFL (04/08/24 1025) Strength Assessment Strength Assessment: Deficits noted (11/06/231024) WNL, except: LLE;RLE (11/06/231024) LLE: Hip;Knee;Ankle;4-/5 (11/06/231024) RLE: Hip;Knee;Ankle;4-/5 (11/06/231024) Transfers Sit-Stand: Contact Guard (11/06/231024) Stand-Sit: Contact Guard (11/06/231024) Ambulation: Distance ambulated (feet): 10 + 5 Assistive Device: Rolling walker Assist: Contact Guard Balance Sit (Static): Fair (11/06/231024) Sit (Dynamic): Fair (11/06/231024) Stand (Static): (Fair -) (11/06/231024) Stand (Dynamic): (Fair -) (11/06/231024) Patient and or Family Goal(s): to get well and to return home Patient Education Review of Precautions: Safety;Fall (11/06/231024) Safety Awareness: Patient verbalizes insight of current deficits;Patient demonstrates carryover of insight during functional tasks;Patient can communicate basic needs (11/06/231024) Preferred learning method: Combination (11/06/231024) Barriers to learning: Medical Status (11/06/231024) Method of Education: Verbalized to patient;Patient demonstrated task (11/06/231024) Topic of Education: Safety with mobility, Goals/plan of care, Use of assistive device, and Fall prevention Method of Education: Verbal discussion and explanation provided to pt: verbalized understanding andor agreement of this information and demonstrated the exercise and or task Treatment Provided: Evaluation Moderate Complexity 15 minutes - 91177: Patient was cooperative and pleasant during treatment session. Moderate complexity evaluation performed and 1-2 personal factorsor comorbidities were identified that will impact plan of care, including lives alone at home and cardiac history. Patient presents with limitations in strength, bed mobility, transfers, gait, elevations, balance, endurance, and safety, which will impact plan of care. These limitations will be addressed by the goals set for this patient. Alarm Status Patient positioned in: Chair (11/06/231024) With: Pressure pad alarm intact and functioning and call leon in reach (04/08/24 1025) Following session patient seated OOB in chair with chair alarm activated and cord plugged into callbell system. Goals: Demonstrate Bed Mobility with: modified independent Demonstrate Transfers with: modified independent Demonstrate Ambulation: least restrictive device, 100 ft with modified independent Demonstrate Stairclimbing: Number of steps: 2 and Level of Assistance: contact guard Increase Strength of: B/L LE by 1/2-1 muscle grade Increase dynamic standing balance to: fair + Increase Safety: with all functional mobility Time Frame: 8 visits Assessment: Pt is a 87 year old female presenting with CHF. Pt alert and oriented x4, following allcommands throughout session. Pt demonstrating fair, symmetrical B/L LE strength/ROM and intact sensation. Pt stood from recliner chair with contact guard to stabilize walker. Pt ambulated 10 ft before needing a 30 second standing rest break due to shortness of breath in which pt was educated on proper breathing techniques. Pt ambulated 5 more feet before needing a seated rest break due to fatigueand shortness of breath. Pt declining further mobility at this time due to fatigue. Due to current functional status, living alone, and safety, please consider post-acute care services which may include home health, shelter, outpatient therapy or inpatient rehabilitation. The level of care will be determined in collaboration with patient, family/caregiver and care team members. All needs met. Deficits requiring P.T. treatment needs: Safety;Mobility;Balance;Weakness;Endurance;Lower extremitystrength (11/06/23 1025) Equipment Needs: Equipment needs: No device (11/06/23 102) Treatment Plan: Bed mobility training, Transfer training, Gait training, Elevation training, Strengthening exercises: B/L LE, Balance activities, and Educate on safety with functional mobility Anticipated Frequency (on eval): 1 to 3 times per week (11/06/23 1025) AM PAC Score with Stairs: 17 A portion of this AM-PAC assessment not scored based on functional assessment; rather clinical decision making utilized based on current findings and/or prior level of function. Please refer to future AM-PAC calculations of functional ability as they become available. documented in this encounter Nursing Notes * Marita Gasca, MARTHA - 11/14/2023 3:57 PM EDT Report called to Jennifer Torrez at [facility]. All questions were answered at this time. Patient discharged to rehab by family. * Marita Gasca RN - 11/14/2023 1:30 PM EDT NURSING AMBULATION OXYGEN TEST [address] [address] Name: Maria Luisa Recinos [id number] Date: 11/14/2023 Time: 1:30 PM Date of test: 11/14/2023 (needs to be completed within 48 hours of discharge) O2 saturation on room air at rest: 97 % O2 saturation at rest is less than or equal to 88 %: no O2 saturation on room air during ambulation: 96 % O2 saturation during ambulation is less than or equal to 88 %: no * Dana Ortiz RN - 11/08/2023 2:49 PM EDT NURSING AMBULATION OXYGEN TEST [address] [address] Name: Maria Luisa Recinos [place]: [facility] [place] H858/A Date: 11/08/2023 Time: 2:49 PM Date of test: 11/08/2023 (needs to be completed within 48 hours of discharge) O2 saturation on room air at rest: 87 % O2 saturation at rest is less than or equal to 88 %: yes; O2 was applied at 3 liters nasal cannula to improve saturations to 93 % while at rest O2 saturation on room air during ambulation: 85 % O2 saturation during ambulation is less than or equal to 88 %: yes; O2 was applied at 3 liters nasal cannula to improve saturations to 95 % while ambulating documented in this encounter Miscellaneous Notes * Ancillary Progress Note - Yahaira Borges MSW - 11/14/2023 10:50 AM EDT CARE MANAGEMENT - ADULT DISCHARGE NOTE [facility] [place] [address] Name: Maria Luisa Recinos Location: [facility] [place] H8/ Date: 11/14/2023 Time: 10:50 AM The following coordination of care and discharge plan has been coordinated with the care team, patient, family and/or caregiver according to the patients needs and preferences. Discharge Discharge Second Notice Important Message from Medicare delivered: Yes (11/14/231046) Date Delivered: 11/12/23 (11/14/23 104) Was Caregiver/Family/Facility contacted regarding discharge: Yes (11/14/23 104) Discharge Transportation: Family/F[address] drive (11/14/23 104) Date of scheduled discharge transportation: 11/14/23 (11/14/23 104) Time of scheduled discharge transportation: 1400 (11/14/23 1047) Final Discharge Plan (Complete only at time of Discharge): SNF (11/14/23 104) Destination - Admitted Since 11/03/2023 Service Provider Selected Services Address Phone Fax Patient Preferred Last Updated [facility] [address] [place] [phone] -- Yahaira Borges MSW 11/13/2023 1321 Narrative: Per service, Pt ready for DC today (11/13). Pt going to [facility]. Family is providing transportation around 2 pm. No other skilled needs identified at this time. Please contact CM with any changes to DC plans. * Care Plan - Aziza Mckeon RN - 11/14/2023 5:59 AM EDT Clinical Goal(s): Pt will verbalize adequate pain control this shift. (11/14/23 0000) Possible barriers to meeting goal(s)/advancing plan of care: leg and muscle cramps Stability of the patient: Moderately stable - low risk of patient condition declining or worsening Summary regarding today's goal(s): Met: Patient verbalized adequate pain control this shift. Recommendations: increase patient activity as tolerated * Ancillary Progress Note - Lima Vigil COTA/L - 11/13/2023 3:43 PM EDT PROGRESS NOTE - Occupational Therapy [address] [address] Name: Maria Luisa Recinos Location: [facility] [place] H858/A Date: 11/13/2023 Time: 3:43 PM Maria Luisa Recinos is a 87 year old female. Patient Status: Inpatient Insurance: Payor: MEDICARE Plan: MEDICARE A AND B Product Type: *No Product type* Payor: [employer] [facility] ([place]) Plan: [facility] MEDICARE SUPPLEMENT Product Type: *No Product type* Patient Seen: at bedside, nursing cleared patient for therapy Patient Identified By: Name, ID Band and Date Diagnosis: SOB (11/13/231436) Status of treatment: Treatment completed (11/13/231436) Orders: OT evaluation and treatment (11/13/231436) Weight Bearing Status: Weight bearing as tolerated (11/13/231436) Precautions: Alarms;Falls;Safety;Oxygen;Laws (11/13/231436) Total Treatment Time: 23 (11/13/231436) Subjective: patient agreeable to OT session Pain: No complaints of pain Observations Consciousness: Alert (11/13/231436) Orientation: Oriented times 4 (11/13/231436) Psychosocial: Patient can communicate basic needs (11/13/231436) Sitting posture: Forward head;Rounded shoulders (11/13/231436) Standing posture: Forward head;Rounded shoulders (11/13/231436) Safety awareness: The Patient verbalizes insight of current deficits.;Needs cueing supervision. (11/13/231436) Other Findings Light touch sensation: LUE;RUE;Intact (04/09/24 1354) Coordination: LUE;RUE;Intact (11/07/231353) Current Functional Status: Activities of Daily Living: Functional Ambulation Assistive Device: Rolling walker (11/13/231436) Distance in feet:: 20 (x2 with seated rest break) (11/13/231436) Level of Assistance: Contact Guard (11/13/231436) OT Transfers Sit-Stand: Contact Guard (minimal assistance from low surface) (11/13/231436) Stand-Sit: Contact Guard (11/13/231436) Balance Sit (Static): Fair (11/13/231436) Sit (Dynamic): Fair (11/13/231436) Stand (Static): Fair (11/13/231436) Stand (Dynamic): (fair-) (11/13/231436) Patient Education Education Topic: Role of OT;Plan of care goals (11/13/231436) Review of Precautions: Safety;Fall (11/13/231436) Review of Exercises: Pt Demonstrated Exercise;Verbal Exercises Provided (11/13/231436) Method of Education: Verbalized to patient (11/13/231436) Education Provided to: Patient (11/13/231436) Response to Education: Receptive and agreeable to education (11/13/231436) Barriers to learning: None (11/13/231436) Preferred learning method: Combination (11/13/231436) Alarm Status Patient positioned in: Chair (11/13/231436) With: Pressure pad alarm intact and functioning and call leon in reach (11/13/231436) Treatment Provided: Therapeutic Activity: 12 minutes Therapeutic Procedure: 11 minutes Upper Extremity exercise Demonstrate Exercises: LUE;RUE;Shoulder;Elbow;Wrist;2 sets of 10;Flexion;Extension;Scapular protraction/retraction;Supination/pronation (11/13/231436) Peformed in: Seated (11/13/231436) Deficits requiring O.T. treatment needs: ADL/self- care;Balance;Endurance;Functional mobility;IADL;Safety;Upper extremity strength;Weakness (11/07/231353) Assessment: patient out of bed in recliner upon entering room. Patient reported feeling fatigued. Functional transfer from recliner contact guard assistance, minimal assistance from low surface. Functional ambulation with rolling walker with a seated rest break. Performed UE strength and endurance exercises in all available plans. Therapeutic rest breaks secondary to increase SOB and fatigue. Please consider post-acute care services which may include home health, shelter, outpatient therapy or inpatient rehabilitation. The level of care will be determined in collaboration with patient, family/caregiver and care team members. Would benefit from continued OT to maximize functional capabilities. Plan: Continue to follow as per plan. Anticipated Frequency (on eval): 1 to 3 times per week (11/13/231436) Equipment Equipment used in Therapy: Rolling walker (11/13/231436) Equipment Needs Equipment needs: Rolling walker (11/13/231436) AM-PAC Help From Another Person Eating Meals: None (11/13/231436) Help From Another Person Taking Care of Personal Grooming: None (11/13/23 143) Help From Another Person To Put On/Take Off Upper Body Clothing: A little (11/07/23 135) Help From Another Person To Put On/Take Off Lower Body Clothing: Total (11/07/23 135) Help From Another Person Toileting: A little (11/07/23 135) Help From Another Person Bathing: A lot (11/07/23 135) OT AM-PAC Score: 17 (11/07/23 1354) OT AM-PAC t-Scale Score: 37.26 (11/07/23 135) HLM (Highest Level of Mobility) Goal: Level 6 walk 10 steps or more (11/13/23 1200) A portion of this AM-PAC assessment not scored based on functional assessment ; rather clinical decision making utilized based on current findings and/or prior level of function. Please refer to future AM-PAC calculations of functional ability as they become available. * Ancillary Progress Note - Chanel Hutchins PTA - 11/13/2023 9:11 AM EDT PROGRESS NOTE - Physical Therapy [facility] [place] [address] Name: Maria Luisa Recinos Location: [facility] [place] H858/A Date: 11/13/2023 Time: 09:11 AM Maria Luisa Recinos is a/an 87 year old female. Patient Status: Inpatient Insurance: Payor: MEDICARE Plan: MEDICARE A AND B Product Type: *No Product type* Payor: [facility] ([place]) Plan: [facility] MEDICARE SUPPLEMENT Product Type: *No Product type* Patient Identified By: Name, ID Band and Date Diagnosis: CHF (11/13/23910) Status of treatment: Treatment completed (11/13/23910) Orders: PT evaluation and treatment (11/13/23910) Weight Bearing Status: Weight bearing as tolerated (11/13/23910) Precautions: Alarms;Laws;Oxygen;Safety (11/13/23910) Total Treatment Time--free text: 23 (11/13/23910) Treatment Provided: Therapeutic Activities 13 minutes: transfer training Short distance mobility Therapeutic Exercises: 10 minutes Pain: Patient has complaints of pain. Pain located bilateral calf R>L. Transfers Sit-Stand: Minimal Assistance (for 2 transfers) (11/13/23910) Stand-Sit: Contact Guard (for 2 transfers) (11/13/23910) Ambulation: Distance ambulated (feet): 10'x2 Assistive Device: Rolling walker Assist: Contact Guard Noted gait deviations: slow gait speed, decreased step length/height (11/13/23910) Balance Sit (Static): Fair (11/13/23910) Sit (Dynamic): Fair (11/13/23910) Stand (Static): (fair -) (11/13/23910) Stand (Dynamic): (fair -) (11/13/23910) Extremity Exercise Sitting: Hip;Knee (11/13/23910) Hip : Bilateral LE;Flexion;2 sets of 10 (11/13/23910) Knee : Bilateral LE;Extension;2 sets of 10 (11/13/23910) Ankle: Bilateral LE;Plantar flexion;Dorsiflexion;2 sets of 10 (11/10/230) Topic of Education: Safety with mobility, Goals/plan of care, Use of assistive device, and Fall prevention Method of Education: Verbal discussion and explanation provided to pt: Alarm Status Patient positioned in: Chair (11/13/23910) With: Pressure pad alarm intact and functioning and call leon in reach (11/13/23910) Following session patient seated OOB in chair with chair alarm activated and cord plugged into callbell system. Patient Education Review of Precautions: Safety;Fall (11/13/23910) Safety Awareness: Patient verbalizes insight of current deficits;Patient demonstrates carryover of insight during functional tasks;Patient can communicate basic needs;Needs cueing supervision (11/13/23910) Assessment: Upon arrival pt seated on the edge of bed. She required minimal assist for sit to standfor 2 transfers with cues for hand placement. She ambulated 10'x2 using a rolling walker requiring contact guard assist. Pt presents with decreased step length/height and slow gait speed. Pt's O2 was94% after the 1st ambulation. Mobility appeared limited by fatigue. Pt reported light headedness after the second walker. BP was 89/51. Pt reported symptoms resolved after sitting for a little. Seated exercises were done to increase LE strength. Please consider post-acute care services which may include home health, shelter, outpatient therapy or inpatient rehabilitation. The level of care will be determined in collaboration with patient, family/caregiver and care team members. Deficits requiring P.T. treatment needs: Safety;Mobility;Weakness;Balance;Endurance;Lower extremitystrength (11/13/23910) Equipment needs: Rolling walker (11/13/23910) Plan: Continue with current treatment plan established on evaluation. AM PAC Score with Stairs: 16 A portion of this AM-PAC assessment not scored based on functional assessment; rather clinical decision making utilized based on current findings and/or prior level of function. Please refer to future AM-PAC calculations of functional ability as they become available. * Ancillary Progress Note - Yahaira Borges MSW - 11/13/2023 8:56 AM EDT CARE MANAGEMENT - ADULT TRANSITION NOTE [facility] [place] [address] Name: Maria Luisa Recinos Location: [facility] [place] H858/A Date: 11/13/2023 Time: 8:56 AM Risk Stratification Risk Stratification Psycho Social / Medical Concerns Identified: Adjustment to illness/injury;Multiple Comorbidities (11/04/23834) Accessed [facility] to connect patients to social care resources: No (11/04/23834) Readmission Risk Score: 50.42 (11/13/23 0801) AM-PAC Score With Stairs : 17 (11/12/23 1751) Caregiver Information Patient Contacts Name Relation Home Work Mobile Betty Price Adult Child [phone] GermanJuan Pablo khan Adult Child [phone] Transition of Care Checklist Transition of Care Checklist (aka Readmission Risk Score) Discharge Disposition: Home w/Home Health (11/04/23834) Home or Home w/Home Health: Complex (34-100%) (11/04/23834) Complex (34-100%): Coordinate initial Home Health visit within 24 hours of discharge, if medically necessary (11/04/23834) Narrative: Pt was discussed with service this AM. Pt's Na is low, may be DC ready pending updated labs. SW called and LM for [facility] to follow up on referral. 139 - SW received a call from [facility] [facility], stated able to offer a bed for Pt tomorrow pending Na levels. SW spoke to Pt and Pt's daughter, Betty (Bre Montes De Oca). Both agreeable to plan. Betty stated would transport Pt tomorrow with Pt's son. Betty will bring O2 tank and plan for around 1/2pm pending labs. SW will continue to follow for evolving needs and support. Anticipated Transportation at Discharge: family vs WC Patient/Family Expectations: SNF Transition Planning Transition Planning Transition Plan/Considerations: Needs uncertain at this time - Continue monitoring for needs (11/04/23834) Insurance Considerations: N/A (11/04/23834) Post-Acute Care needs identified and Referrals Completed: Occupational Therapy;Physical Therapy (11/04/23834) Agency Choice Due to: Care previously established (11/04/23834) Additional Considerations: N/A Care Management will continue to monitor and assist with discharge planning needs * Care Plan - Maribell Mane RN - 11/12/2023 7:37 AM EDT Clinical Goal(s): Patient will remain free from falls throughout shift (11/11/23 2300) Possible barriers to meeting goal(s)/advancing plan of care: weakness Stability of the patient: Moderately stable - low risk of patient condition declining or worsening Summary regarding today's goal(s): Met: met Recommendations: continue fall precautions Problem: Decreased Cardiac Output Goal: Patient will have improved cardiac output. Outcome: Progressing Problem: Alteration in Fluid Balance Goal: Patient will achieve & maintain optimal fluid balance. Outcome: Progressing Problem: Ineffective Breathing Pattern Goal: Patient will achieve & maintain effective breathing pattern. Outcome: Progressing Problem: Activity Intolerance & Impaired Mobility Goal: Patient will maintain optimal mobility & activity level. Outcome: Progressing Problem: Knowledge Deficit Goal: Patient & caregiver will demonstrate understanding. Outcome: Progressing Problem: Pain & Impaired Comfort Goal: Patient's pain & discomfort is manageable. Outcome: Progressing Problem: Safety & Risk for Injury Goal: Patient will remain free from injury. Outcome: Progressing Problem: Daily Care & Potential Self-Care Deficit Goal: Patient's daily care needs are met. Outcome: Progressing Problem: Risk for Impaired Physical Mobility Goal: Patient will maintain optimal mobility level. Outcome: Progressing Problem: Knowledge Deficit Goal: Patient & caregiver will demonstrate understanding. Outcome: Progressing Problem: Discharge Barriers Goal: Patient's discharge needs are met. Outcome: Progressing Problem: Actual & Potential for Falls Goal: Patient will remain free of falls. Outcome: Progressing * Communication - Satya DoriDO - 11/12/2023 1:40 AM EDT Called to bedside due to patient having extreme pain and cramps. She had received her tylenol 650 mg PRN and scheduled requip, but pain has continued. Upon arrival to the room, patient is alert, and screaming/moaning. She is oriented x3, except believes that she is in the hospital for the severe cramps. She tells me that she is having left leg cramping, and is unable to sit still. The pain is described as "something terrible." Electrolytes reviewed as patient is being actively diuresed- K 4.2 and mag 2.2 from 18:42 this evening. Strength and sensation is intact of the left leg. She has hypertonicity to the L calf and achilles tendon, with tenderness to palpation as well. No warmth or erythema. Patient is initially stood with some relief of the symptoms, but upon transfer to the chair, she continues to yell and moan. She is given tylenol 325 mg x1 (to equal 975 mg dosage). Dr. Viera at bedside and massages patient's left leg for 10 minutes, with reassuring thoughts. Patient transferred back to bed, repositioned and warm pack wrapped around the left leg with moderate relief of her cramps. Symptoms likely due to restless leg, with an anxiety component. Will manage supportively with tylenol, massages and hot packs. If pain continues, can consider lower extremity duplex to rule out DVT. Patient is currently anti- coagulated with Eliquis, so less likely. Addendum: Patient was able to sleep for 3-4 hours, then developed severe L leg cramps again. This time the pain/cramping radiated up further on her leg. K 3.5 on AM draw with repletion given. Lidocaine patch ordered. * Ancillary Progress Note - Tessy French RN - 11/11/2023 12:41 PM EDT POST ACUTE CARE CARE MANAGEMENT [facility] [place] [address] Name: Maria Luisa Recinos Location: [facility] [place] H858/A Date: 11/11/2023 Time: 12:41 PM Post-Acute Care Patient General Information Living Quarters: House (11/04/23834) Number of steps to enter living quarters:: 2 (11/04/23834) Do you have serious difficulty walking or climbing stairs? (5 years old or older): Yes (11/03/232141) History of falling: No (11/11/23814) What was your living situation prior to admission/observation?: Independently;Alone (11/04/23834) Do you have any children, pets, or other dependents that you are currently caring for?: No (11/04/23834) AM-PAC Score With Stairs : 17 (11/10/23 1120) Post-Acute Care with AM-PAC < 17.99 Rehab diagnosis: Does not meet criteria (11/11/231239) [facility] (SNF) Guidelines For Medical Approval (must select both): Care must be provided by an RN/SURVEYING TEACHER and cannot be managed at home;Care requires observation, monitoring and evaluation of effectiveness on a daily basis (11/11/231239) SNF guidelines for Rehab Approval (All selections required): Able to participate for at least 1 hour of therapy per day;Requries Training (select at least one);Requires intense care planning with realistic goals as identified by 1 of the following;Established rehabilitative progress;Frequent monitoring and or revision of treatment plan;Frequent re-assessment of established rehabilitative progress;Services required only able to be provided in an inpatient setting;One or more therapy modalities (PT/OT/ST) at least 5 times a week (11/11/231239) Therapy Modalities: Physical Therapy;Occupational Therapy (11/11/231239) Intense Care Plan Goals: Completion of home evaluation, assistance with home modifications;Assistance with application for community services (11/11/231239) SNF Required Training: Gait training;Transfer Training;ADL training, with or without adaptive equipment (11/11/231239) Approved for [facility]: Approved for [facility] (11/11/231239) Referral in place to [facility] in [place], pending response. Anticipate pt will be ready for d/c Monday as medical team is transitioning from IV to PO diuretics. * Ancillary Progress Note - Tessy French RN - 11/11/2023 12:37 PM EDT CARE MANAGEMENT - ADULT TRANSITION NOTE [facility] [place] [address] Name: Maria Luisa Recinos Location: [facility] [place] H858/A Date: 11/11/2023 Time: 12:37 PM Risk Stratification Risk Stratification Psycho Social / Medical Concerns Identified: Adjustment to illness/injury;Multiple Comorbidities (11/04/23834) Accessed [facility] to connect patients to social care resources: No (11/04/23834) Readmission Risk Score: 48.36 (11/11/23 1201) AM-PAC Score With Stairs : 17 (11/10/23 1120) Caregiver Information Patient Contacts Name Relation Home Work Mobile Betty Price Adult Child [phone] Juan Pablo Recinos Adult Child [phone] Transition of Care Checklist Transition of Care Checklist (aka Readmission Risk Score) Discharge Disposition: Home w/Home Health (11/04/23834) Home or Home w/Home Health: Complex (34-100%) (11/04/23834) Complex (34-100%): Coordinate initial Home Health visit within 24 hours of discharge, if medically necessary (11/04/23834) Narrative: Pt discussed during IDT. Physician relayed pt would like to go to SNF for continued rehab at discharge. Met w/pt at bedside, provided Respisodic list of facility within 35 [place] of her zip code. She would like a referral to [facility]. She reports her daughter has already contacted their admissions staff and they have beds. KRIS opened to [facility] for review. Anticipated Transportation at Discharge: family vs medical Patient/Family Expectations: SNF for rehab Transition Planning Transition Planning Transition Plan/Considerations: Needs uncertain at this time - Continue monitoring for needs (11/04/23834) Insurance Considerations: N/A (11/04/23834) Post-Acute Care needs identified and Referrals Completed: Occupational Therapy;Physical Therapy (11/04/23834) Agency Choice Due to: Care previously established (11/04/23834) Additional Considerations: Care Management will continue to monitor and assist with discharge planning needs * Ancillary Progress Note - Lima Vigil COTA/Manuel - 11/10/2023 4:24 PM EDT PROGRESS NOTE - Occupational Therapy [facility] [place] [address] Name: Maria Luisa Recinos Location: [facility] [place] H858/A Date: 11/10/2023 Time: 4:24 PM Maria Luisa Recinos is a 87 year old female. Patient Status: Inpatient Insurance: Payor: MEDICARE Plan: MEDICARE A AND B Product Type: *No Product type* Payor: [employer] [facility] ([place]) Plan: VOLITIONRX 65 MEDICARE SUPPLEMENT Product Type: *No Product type* Patient Seen: at bedside, nursing cleared patient for therapy Patient Identified By: Name, ID Band and Date Diagnosis: SOB (11/10/231337) Status of treatment: Treatment completed (11/10/231337) Orders: OT evaluation and treatment (11/10/231337) Weight Bearing Status: Weight bearing as tolerated (11/10/231337) Precautions: Alarms;Falls;Safety;Oxygen (11/10/231337) Total Treatment Time: 29 (11/10/231337) Subjective: patient agreeable to OT session Pain: No complaints of pain Observations Consciousness: Alert (11/10/231337) Orientation: Oriented times 4 (11/10/231337) Psychosocial: Patient can communicate basic needs (11/10/231337) Sitting posture: Forward head;Rounded shoulders (11/10/231337) Standing posture: Forward head;Rounded shoulders (11/10/231337) Safety awareness: The Patient verbalizes insight of current deficits.;Needs cueing supervision. (11/10/231337) Other Findings Light touch sensation: LUE;RUE;Intact (11/07/231353) Coordination: LUE;RUE;Intact (11/07/231353) Current Functional Status: Activities of Daily Living: Self Care Able to provide self care: Yes (11/07/231353) Grooming: Supervision (Please comment) (11/10/231337) Toileting: Minimal Assistance (11/07/231353) Dressing Upper Body: Minimal Assistance (to don gown simulated) (11/07/231353) Lower Body: Dependent (to don socks) (11/07/231353) Functional Ambulation Assistive Device: Rolling walker (11/10/231337) Distance in feet:: 20 (4) (11/10/231337) Level of Assistance: Contact Guard (11/10/231337) OT Transfers Sit-Stand: Contact Guard (11/10/231337) Stand-Sit: Contact Guard (11/10/231337) Toilet: Contact Guard (to BSC) (11/07/231353) Balance Sit (Static): Fair (11/10/231337) Sit (Dynamic): Fair (11/10/231337) Stand (Static): Fair (11/10/231337) Stand (Dynamic): (fair-) (11/10/231337) Patient Education Education Topic: Role of OT;Plan of care goals (11/10/231337) Review of Precautions: Safety;Fall (11/10/231337) Review of Exercises: Pt Demonstrated Exercise;Verbal Exercises Provided (11/10/231337) Method of Education: Verbalized to patient (11/10/231337) Education Provided to: Patient (11/10/231337) Response to Education: Receptive and agreeable to education (11/10/231337) Barriers to learning: None (11/10/231337) Preferred learning method: Combination (11/10/231337) Alarm Status Patient positioned in: Chair (11/10/231337) With: Call leon in reach (11/10/231337) Treatment Provided: Therapeutic Activity: 14 minutes Therapeutic Procedure: 15 minutes Upper Extremity exercise Demonstrate Exercises: LUE;RUE;Shoulder;Elbow;Wrist;2 sets of 10;Flexion;Extension;Scapular protraction/retraction;Supination/pronation (11/10/231337) Peformed in: Seated (11/10/231337) Deficits requiring O.T. treatment needs: ADL/self- care;Balance;Endurance;Functional mobility;IADL;Safety;Upper extremity strength;Weakness (11/07/231353) Assessment: patient out of bed in recliner upon entering room. Supervision for functional transfer from recliner performed x2. Functional mobility with rolling walker contact guard assistance performed x2. Performed UE strength and endurance exercises in all available plans. Patient required therapeutic rest breaks secondary to increase SOB and fatigue. Please consider post-acute care services which may include home health, shelter, outpatient therapy or inpatient rehabilitation. The level of care will be determined in collaboration with patient, family/caregiver and care team members. Would benefit from continued OT to maximize functional capabilities. Plan: Continue to follow as per plan. Anticipated Frequency (on eval): 1 to 3 times per week (11/10/231337) Equipment Equipment used in Therapy: Rolling walker (11/10/231337) Equipment Needs Equipment needs: Rolling walker (11/10/231337) AM-PAC Help From Another Person Eating Meals: None (11/10/231337) Help From Another Person Taking Care of Personal Grooming: None (11/10/231337) Help From Another Person To Put On/Take Off Upper Body Clothing: A little (11/07/231353) Help From Another Person To Put On/Take Off Lower Body Clothing: Total (11/07/231353) Help From Another Person Toileting: A little (11/07/231353) Help From Another Person Bathing: A lot (11/07/231353) OT AM-PAC Score: 17 (11/07/23 135) OT AM-PAC t-Scale Score: 37.26 (11/07/23 135) HLM (Highest Level of Mobility) Goal: Level 5 standing (1 or more minutes) (11/10/23 1120) A portion of this AM-PAC assessment not scored based on functional assessment ; rather clinical decision making utilized based on current findings and/or prior level of function. Please refer to future AM-PAC calculations of functional ability as they become available. * Ancillary Progress Note - Renetta Gtz, SYSTEMS ENG - 11/10/2023 11:22 AM EDT PROGRESS NOTE - Physical Therapy [facility] [place] [address] Name: Maria Luisa Recinos Location: [facility] [place] H858/A Date: 11/10/2023 Time: 11:22 AM Maria Luisa Recinos is a/an 87 year old female. Patient Status: Inpatient Insurance: Payor: MEDICARE Plan: MEDICARE A AND B Product Type: *No Product type* Payor: [facility] ([place]) Plan: SECURITY 65 MEDICARE SUPPLEMENT Product Type: *No Product type* Patient Seen: at bedside, nursing cleared patient for therapy Patient Identified By: Name, ID Band and Date Diagnosis: CHF (11/10/231119) Status of treatment: Treatment completed (11/10/231119) Orders: PT evaluation and treatment (11/10/231119) Weight Bearing Status: Weight bearing as tolerated (11/10/231119) Precautions: Alarms;Falls;Laws;Oxygen;Safety (11/10/231119) Total Treatment Time--free text: 23 (11/10/231119) Subjective: Patient pleasant and agreeable to therapy. Pain: Patient has complaints of pain. Pain located as cramping in lower extremities, but this was tolerable during treatment session. Nursing staff aware, patient also reporting she had Tylenol todayas well. Transfers Sit-Stand: Contact Guard (11/10/231119) Stand-Sit: Contact Guard (11/10/231119) Ambulation: Distance ambulated (feet): 15 Assistive Device: Rolling walker Assist: Contact Guard Balance Sit (Static): Fair (11/10/231119) Sit (Dynamic): Fair (11/10/231119) Stand (Static): Fair (11/10/231119) Stand (Dynamic): Fair (-) (11/10/231119) Patient and or Family Goal(s): to get well and to return home Topic of Education: Safety with mobility, Goals/plan of care, and Use of assistive device Extremity Exercise Sitting: Hip;Knee;Ankle (11/10/231119) Hip : Bilateral LE;Flexion;Adduction;Abduction;2 sets of 10 (11/10/231119) Knee : Bilateral LE;Flexion;Extension;2 sets of 10 (11/10/231119) Ankle: Bilateral LE;Plantar flexion;Dorsiflexion;2 sets of 10 (11/10/231119) Method of Education: Verbal discussion and explanation provided to patient: demonstrated the exercise and or task Treatment Provided: Therapeutic Activities 10 minutes: transfer training Short distance ambulation in room Therapeutic Exercises: 13 minutes Alarm Status Patient positioned in: Chair (11/10/231119) With: Call leon in reach (chair alarm pad not on upon entry, nursing staff aware) (11/10/231119) Patient Education Review of Precautions: Safety;Fall (11/10/231119) Safety Awareness: Patient verbalizes insight of current deficits;Patient demonstrates carryover of insight during functional tasks;Patient can communicate basic needs (11/10/231119) Preferred learning method: Combination (11/10/231119) Barriers to learning: Medical Status (11/10/231119) Method of Education: Verbalized to patient;Patient demonstrated task (11/10/231119) Assessment: Patient pleasant and agreeable to therapy, seated in chair upon arrival, motivated to participate. Lower extremity range of motion exercises completed in chair. Repetitions completed slowand controlled to help decrease risk of muscle cramping, rest breaks as needed, patient tolerated very well. Sit to stands completed with contact guard to rolling walker. Ambulation completed with rolling walker in room, patient ambulated 15 feet with directional change. Patient demonstrates limited endurance, but no losses of balance. SpO2 in the high 90s, HR in 70s. Additional sit to stand completed in front of chair, to improve functional strength and endurance, no increases in pain. Patient demonstrates good safety awareness. Patient seated in chair upon end of treatment session, positioned with call leon in reach all needs met. [facility], outpatient therapy or inpatient rehabilitation. The level of care will be determined in collaboration with patient, family/caregiver and care team members. Deficits requiring P.T. treatment needs: Safety;Mobility;Balance;Weakness;Endurance;Lower extremitystrength (11/10/231119) Equipment needs: Rolling walker (11/08/23 1131) Plan: Discontinue therapy services. AM PAC Score with Stairs: 17 A portion of this AM-PAC assessment not scored based on functional assessment; rather clinical decision making utilized based on current findings and/or prior level of function. Please refer to future AM-PAC calculations of functional ability as they become available. * Ancillary Progress Note - Chepe Orellana RDN - 11/10/2023 10:56 AM EDT CLINICAL NUTRITION ADULT RISK ASSESSMENT [address] [address] Name: Maria Luisa Recinos Location: [facility] [place] H858/A Date: 11/10/2023 Time: 10:56 AM How patient was identified (select 2): Medical record number and Name Maria Luisa Recinos is a 87 year old female being assessed for clinical nutrition risk related to extended LOS Primary diagnosis: Shortness of breath Other pertinent information: Patient is seen at bedside. States that her appetite is not that great. Limited meal consumption of 50-100% documented. Agreeable to try boost due to decreased oral intake. Encouraged to follow 1500 ml fluids restriction daily. No chewing/swallowing difficulty reported.Denies N/V and abdominal discomfort. Last BM 11/08. Weight loss likely due to fluids. On diuretics. Anthropometrics Measurements Admission weight (for dietitians): 84.9 kg (187 lb 2.7 oz) Height: 154.9 cm (5' 1") (11/03/23 2142) Weight: 82.7 kg (182 lb 6.4 oz) (11/10/23 1000) BMI: 35.38 (11/03/23 2142) Usual Body Weight or EDW for Dialysis Patients: 85- 92 kg per EHR, DRY WEIGHT - 195 lbs (88.6 kg) per chart Diet: 1500 ml Fluid Restriction Other: heart healthy Previously followed diet: low sodium Food Allergies/Intolerances: Latex Pertinent medications/vitamins/minerals/supplements: Lasix , miralax, potassium chloride, senna, spironolactone, RISK FACTORS: Adult Energy Intake: Less than 75% of estimated energy requirement for greater than 7 days (moderate, acute illness). Interpretation of Weight Change: Change likely secondary to fluid Skin: Intact NUTRITION RISK CATEGORY: Nutrition Risk Category: Low/Moderate (0-1 factors) Clinical Nutrition Recommendations: Diet: Continue current nutrition plan NUTRITION INTERVENTION/PLAN: Orders: Oral nutrition supplement added Boost Glucose Control (1 cup provides 190 calories, 16 grams protein, 16 grams carbohydrate) daily Continue current care plan Will follow and adjust nutritional plan as medical condition requires. Please contact for change(s)in patient condition requiring earlier intervention. Chepe Orellana MS, RDN, LDN Clinical Dietitian [facility] [place] text * Care Plan - Marita aGsca RN - 11/09/2023 5:26 PM EDT Clinical Goal(s): Pt will have no cramps this shift (11/09/23 0700) Possible barriers to meeting goal(s)/advancing plan of care: lasix gtt Stability of the patient: Moderately stable - low risk of patient condition declining or worsening Summary regarding today's goal(s): Not met Recommendations: c.o cramping. K replaced * Ancillary Progress Note - Renetta Gtz PTA - 11/09/2023 4:03 PM EDT PROGRESS NOTE - Physical Therapy [facility] [place] [address] Name: Maria Luisa Recinos Location: [facility] [place] H858/A Date: 11/09/2023 Time: 4:03 PM Maria Luisa Recinos is a/an 87 year old female. Patient Status: Inpatient Insurance: Payor: MEDICARE Plan: MEDICARE A AND B Product Type: *No Product type* Payor: [facility] ([place]) Plan: VOLITIONRX 65 MEDICARE SUPPLEMENT Product Type: *No Product type* Patient Seen: at bedside, nursing cleared patient for therapy Patient Identified By: Name, ID Band and Date Diagnosis: CHF (11/09/231549) Status of treatment: Treatment completed (11/09/231549) Orders: PT evaluation and treatment (11/09/231549) Weight Bearing Status: Weight bearing as tolerated (11/09/231549) Precautions: Alarms;Falls;Laws;Oxygen;Safety (11/09/231549) Total Treatment Time--free text: 12 (11/09/231549) Subjective: Patient pleasant and agreeable, motivated. Pain: Patient reporting leg cramps, nursing staff aware and RN updated at end of treatment session. Transfers Sit-Stand: Contact Guard (11/09/231549) Stand-Sit: Contact Guard (11/09/231549) Ambulation: Distance ambulated (feet): 10 feet (x2, forward and backwards in front of chair) Assistive Device: Rolling walker Assist: Contact Guard Balance Sit (Static): Fair (11/09/231549) Sit (Dynamic): Fair (11/09/231549) Stand (Static): Fair (11/09/231549) Stand (Dynamic): Fair (-) (11/09/231549) Patient and or Family Goal(s): to get well and to return home Topic of Education: Safety with mobility, Goals/plan of care, and Use of assistive device Method of Education: Verbal discussion and explanation provided to patient: demonstrated the exercise and or task Treatment Provided: Gait Training 12 minutes: gait training with rolling walker and transfer training Alarm Status Patient positioned in: Chair (11/09/231549) With: Call leon in reach (chair alarm pad not on chair upon entry, confirmed with RN Marita that patient is ok without alarm) (11/09/231549) Patient Education Review of Precautions: Safety;Fall (11/09/231549) Safety Awareness: Patient verbalizes insight of current deficits;Patient demonstrates carryover of insight during functional tasks;Patient can communicate basic needs (11/09/231549) Preferred learning method: Combination (11/09/231549) Barriers to learning: Medical Status (11/09/231549) Method of Education: Verbalized to patient;Patient demonstrated task (11/09/231549) Assessment: Patient pleasant and agreeable to therapy, seated in chair upon arrival, motivated to participate. Does report significant cramps in lower extremities, review of exercises to help decrease pain and loosen up lower extremity muscles. Sit to stands completed with contact guard to rise. Amb ulation completed with rolling walker, patient ambulated 10 feet forward and back (x2 trials). Patient reported feeling like ambulation helped to decrease cramps a bit. Patient seated in chair upon end of treatment session, positioned with pillows for comfort with call leon in reach and all needs met. RN updated on treatment session. Please consider post-acute care services which may include homehealth, shelter, outpatient therapy or inpatient rehabilitation. The level of care will be determined in collaboration with patient, family/caregiver and care team members. Deficits requiring P.T. treatment needs: Safety;Mobility;Balance;Weakness;Endurance;Lower extremitystrength (11/09/23 1550) Equipment needs: Rolling walker (11/08/23 1131) Plan: Continue with current treatment plan established on evaluation. AM PAC Score with Stairs: 17 A portion of this AM-PAC assessment not scored based on functional assessment; rather clinical decision making utilized based on current findings and/or prior level of function. Please refer to future AM-PAC calculations of functional ability as they become available. * Care Plan - Aziza Mckeon RN - 11/09/2023 6:20 AM EDT Clinical Goal(s): Patient will be turned and repositioned q2h this shift. (11/09/23 0000) Possible barriers to meeting goal(s)/advancing plan of care: limited mobility Stability of the patient: Moderately stable - low risk of patient condition declining or worsening Summary regarding today's goal(s): Met: Patient was turned and repositioned q2h this shift. Recommendations: increase patient activity as tolerated. * Ancillary Progress Note - Yahaira Borges MSW - 11/08/2023 12:07 PM EDT CARE MANAGEMENT - ADULT TRANSITION NOTE [facility] [place] [address] Name: Maria Luisa Recinos Location: [facility] [place] H858/A Date: 11/08/2023 Time: 12:07 PM Risk Stratification Risk Stratification Psycho Social / Medical Concerns Identified: Adjustment to illness/injury;Multiple Comorbidities (11/04/23 9276) Accessed [facility] to connect patients to social care resources: No (11/04/23834) Readmission Risk Score: 46.43 (11/08/231199) AM-PAC Score With Stairs : 17 (11/07/232009) Caregiver Information Patient Contacts Name Relation Home Work Mobile Betty Price Adult Child [phone] Juan Pablo Recinos Adult Child [phone] Transition of Care Checklist Transition of Care Checklist (aka Readmission Risk Score) Discharge Disposition: Home w/Home Health (11/04/23834) Home or Home w/Home Health: Complex (34-100%) (11/04/23834) Complex (34-100%): Coordinate initial Home Health visit within 24 hours of discharge, if medically necessary (11/04/23834) Narrative: Pt was discussed during IDT this AM. Pt is not medically ready for DC at this time. Pt still diuresing at this time. SW will continue to follow for evolving needs and support. Anticipated Transportation at Discharge: TBD Patient/Family Expectations: TBD Transition Planning Transition Planning Transition Plan/Considerations: Needs uncertain at this time - Continue monitoring for needs (11/04/23834) Insurance Considerations: N/A (11/04/23834) Post-Acute Care needs identified and Referrals Completed: Occupational Therapy;Physical Therapy (11/04/23834) Agency Choice Due to: Care previously established (11/04/23834) Additional Considerations: N/A Care Management will continue to monitor and assist with discharge planning needs * Ancillary Progress Note - Chanel Hutchins PTA - 11/08/2023 11:31 AM EDT PROGRESS NOTE - Physical Therapy [facility] [place] [address] Name: Maria Luisa Recinos Location: [facility] [place] H858/A Date: 11/08/2023 Time: 11:31 AM Maria Luisa Recinos is a/an 87 year old female. Patient Status: Inpatient Insurance: Payor: MEDICARE Plan: MEDICARE A AND B Product Type: *No Product type* Payor: [employer] Plan: SECURITY 65 MEDICARE SUPPLEMENT Product Type: *No Product type* Patient Identified By: Name, ID Band and Date Diagnosis: CHF (11/08/231130) Status of treatment: Treatment completed (11/08/231130) Orders: PT evaluation and treatment (11/08/231130) Weight Bearing Status: Weight bearing as tolerated (11/08/231130) Precautions: Alarms;Falls;Laws;Oxygen;Safety (11/08/231130) Total Treatment Time--free text: 31 (11/08/231130) Treatment Provided: Therapeutic Activities 13 minutes: transfer training Short distance mobility Therapeutic Exercises: 10 minutes Pain: No complaints of pain Transfers Sit-Stand: Contact Guard (for 3 transfers) (11/08/231130) Stand-Sit: Contact Guard (for 3 transfers) (11/08/231130) Ambulation: Distance ambulated (feet): 15'x2 then 30' Assistive Device: Rolling walker Assist: Contact Guard Noted gait deviations: slow gait speed (11/08/231130) Balance Sit (Static): Fair (11/08/231130) Sit (Dynamic): Fair (11/08/231130) Stand (Static): Fair (11/08/231130) Stand (Dynamic): (fair -) (11/08/231130) Extremity Exercise Sitting: Hip;Knee (11/08/231130) Hip : Bilateral LE;Flexion;2 sets of 10 (11/08/231130) Knee : Bilateral LE;Extension;2 sets of 10 (11/08/231130) Topic of Education: Safety with mobility, Goals/plan of care, Use of assistive device, and Fall prevention Method of Education: Verbal discussion and explanation provided to pt: Alarm Status Patient positioned in: Chair (11/08/231130) With: Pressure pad alarm intact and functioning and call leon in reach (11/08/231130) Following session patient seated OOB in chair with chair alarm activated and cord plugged into callbell system. Patient Education Review of Precautions: Safety;Fall (11/08/231130) Safety Awareness: Patient verbalizes insight of current deficits;Patient demonstrates carryover of insight during functional tasks;Patient can communicate basic needs;Needs cueing supervision (11/08/231130) Assessment: Pt completed transfers with contact guard assist and cues for hand placement. She ambulated 15', 15' then 30' respectively using a rolling walker requiring contact guard assist and a seated rest break in between trials. Pt's O2 remained 93%to 96%. She presents with a slow gait speed andrequired cues for purse lipped breathing. Seated exercises were done to increase LE strength. Please consider post-acute care services which may include home health, shelter, outpatient therapy or inpatient rehabilitation. The level of care will be determined in collaboration with patient, family/caregiver and care team members. Deficits requiring P.T. treatment needs: Safety;Mobility;Balance;Weakness;Endurance;Lower extremitystrength (11/08/231130) Equipment needs: Rolling walker (11/08/231130) Plan: Continue with current treatment plan established on evaluation. AM PAC Score with Stairs: 17 A portion of this AM-PAC assessment not scored based on functional assessment ; rather clinical decision making utilized based on current findings and/or prior level of function. Please refer to future AM-PAC calculations of functional ability as they become available. * Care Plan - Montserrat Davison RN - 11/07/2023 11:39 PM EDT Clinical Goal(s): patient will be free of injury (11/07/23 0700) Possible barriers to meeting goal(s)/advancing plan of care: impaired mobilty Stability of the patient: Moderately stable - low risk of patient condition declining or worsening Summary regarding today's goal(s): Met: no falls this shift Recommendations: use of call leon reinforced, x1 assist for transfers/ambulation * Ancillary Progress Note - Theresa Polanco RRT - 11/07/2023 3:20 PM EDT PATIENT DRIVEN PROTOCOL - Respiratory Care Services [address] [address] Name: Maria Luisa Recinos [place] [facility] [place] H858/A Date: 11/07/2023 Time: 3:20 PM Patient Driven Protocol Summary: Initial evaluation performed. This Treatment Plan and medications will be reviewed by the Primary Care Team for any contraindications. Respiratory Care Treatment Plan Aerosol Therapy Treatment:: Inhaler(s) QDAY with Breo Ellipta (Fluticasone furoate 100 mcg and Vilanterol 25 mcg inhalation powder) / 1 inhalation. to reduce work of breathing and improve pulmonary gas exchange and suppress bronchial inflammation and edema by the use of systemic steroid sparing therapy. . Pulmonary Volume Expansion Therapy: Incentive Spirometry PRN to prevent or treat alveolar consolidation and atelectasis. . Secretion Management Treatment: Flutter TherapyPRN to enhance mobilization of secretions. . The patient will be re-evaluated: No [...] 0 - No Surgical History Chest X-Ray: 0 - Not Performed or performed greater than 3 days ago Assessment Score: 0 Patient Assessment Clinical Findings Respiratory Pattern: 0 [...] or FiO2 less than 35% Assessment Score: 4 Total Assessment Score: 4 Breath Sounds: Inspiratory and expiratory clear and diminished bilaterally.. Cough and Sputum: An effective cough produced no sputum... CXR: last done > 3 days ago. Vital Signs: Resp: 18 (11/07/23 1101) Pulse: 86 (11/07/23 1101) Temp: 35.9 C (96.6 F) (11/07/23 1101) BP: 110/60 (11/07/23 1101) SpO2: 91 % (11/07/23 110) PFT: Minimal Predicted IC: 0.711 L. Inspiratory capacity: 1.500L. Patient unable to perform Inspiratory Capacity. Reason: . Primary Service: Cardiology Med A. Admitting Diagnosis: CHF (congestive heart failure) ([facility]) [I50.9] Acute exacerbation of CHF (congestive heart failure) ([facility]) [I50.9] Pulmonary Diagnosis: CHF, Obesity, Pulmonary HTN, and ILD . Prescriptions/Home Medications/Durable Medical Equipment: Per patient - Qday Breo & O2 3L continuously. Recommended New home medications/durable medical equipment/outpatient pulmonary/sleep referral . * Ancillary Progress Note - Beny Carrizales OT - 11/07/2023 1:57 PM EDT PROGRESS NOTE - Occupational Therapy [address] [address] Name: Maria Luisa Recinos Location: [facility] [place] H858/A Date: 11/07/2023 Time: 1:59 PM Mari aLuisa Recinos is a 87 year old female. Patient Status: Inpatient Insurance: Payor: MEDICARE Plan: MEDICARE A AND B Product Type: *No Product type* Payor: [facility] Plan: [employer] 65 MEDICARE SUPPLEMENT Product Type: *No Product type* Patient Seen: at bedside, nursing cleared patient for therapy Patient Identified By: Name, ID Band and Date Diagnosis: shortness of breath (11/07/231353) Status of treatment: Treatment completed (11/07/231353) Orders: OT evaluation and treatment;OT OOB (11/07/231353) Weight Bearing Status: Weight bearing as tolerated (11/07/231353) Precautions: Alarms;Falls;Safety (11/07/231353) Total Treatment Time: 25 (11/07/231353) Subjective: Patient agreeable to session, wants to get moving and use bathroom Pain: No complaints of pain Observations Consciousness: Alert (11/07/231353) Orientation: Oriented times 4 (11/07/231353) Psychosocial: Patient can communicate basic needs;Patient can converse in a social setting (11/07/231353) Sitting posture: Forward head;Rounded shoulders (11/07/231353) Standing posture: Forward head;Rounded shoulders (11/07/231353) Safety awareness: The Patient verbalizes insight of current deficits.;The Patient demonstrates carryover of insight during functional tasks. (11/07/231353) Other Findings Light touch sensation: LUE;RUE;Intact (11/07/231353) Coordination: LUE;RUE;Intact (11/07/231353) Current Functional Status: Activities of Daily Living: Self Care Able to provide self care: Yes (11/07/231353) Toileting: Minimal Assistance (11/07/231353) Dressing Upper Body: Minimal Assistance (to don gown simulated) (11/07/231353) Lower Body: Dependent (to don socks) (11/07/231353) Functional Ambulation Assistive Device: Rolling walker (11/07/231353) Distance in feet:: 10 (11/07/231353) Level of Assistance: Contact Guard (11/07/231353) OT Transfers Sit-Stand: Contact Guard (11/07/231353) Stand-Sit: Contact Guard (11/07/231353) Toilet: Contact Guard (to BSC) (11/07/231353) Balance Sit (Static): Fair (11/07/231353) Sit (Dynamic): Fair (11/07/231353) Stand (Static): Fair (11/07/231353) Stand (Dynamic): (Fair-) (11/07/231353) Patient Education Education Topic: Role of OT;Plan of care goals (11/07/231353) Review of Precautions: Safety;Fall (11/07/231353) Method of Education: Verbalized to patient (11/07/231353) Education Provided to: Patient (11/07/231353) Response to Education: Receptive and agreeable to education (11/07/231353) Barriers to learning: None (11/07/231353) Preferred learning method: Combination (11/07/231353) Alarm Status Patient positioned in: Chair (11/07/231353) With: Call leon in reach (No alarms at start of session) (11/07/231353) Treatment Provided: Self Correction Management Trainin minutes Therapeutic Activity: 10 minutes Deficits requiring O.T. treatment needs: ADL/self- care;Balance;Endurance;Functional mobility;IADL;Safety;Upper extremity strength;Weakness (11/07/231353) Assessment: Patient cooperative with treatment session this date. On exam, she presented OOB in chair. She required total assist to adjust socks as she was unable to reach LEs while seated in chair. Patient was able to complete transfer to bedside commode using rolling walker with contact guarding due to unsteadiness, with some shortness of breath noted. Patient required minimal assistance for toilet hygiene tasks for thoroughness as well as extra time needed as she had difficulty using bathroom. Patient was able to transfer back to chair using walker with contact guarding. She was able to complete further ambulation in room with contact guarding, however, was limited by fatigue. Patient O2sats noted to be as low as 85% after activity, soon returning to >90% when given cues for breathing. Patient would benefit from ongoing acute OT services to improve function. Please consider post-acute care services which may include home health, shelter, outpatient therapy or inpatient r ehabilitation. The level of care will be determined in collaboration with patient, family/caregiverand care team members. Plan: Continue plan of care Anticipated Frequency (on eval): 1 to 3 times per week (11/07/231353) Equipment Equipment used in Therapy: Rolling walker (11/07/231353) AM-PAC Help From Another Person Eating Meals: None (11/07/231353) Help From Another Person Taking Care of Personal Grooming: None (11/07/231353) Help From Another Person To Put On/Take Off Upper Body Clothing: A little (11/07/231353) Help From Another Person To Put On/Take Off Lower Body Clothing: Total (11/07/231353) Help From Another Person Toileting: A little (11/07/231353) Help From Another Person Bathing: A lot (11/07/231353) OT AM-PAC Score: 17 (11/07/23 1354) OT AM-PAC t-Scale Score: 37.26 (11/07/23 1354) HLM (Highest Level of Mobility) Goal: Level 5 standing (1 or more minutes) (11/06/23 1025) * Care Plan - Maribell Mane RN - 11/07/2023 5:31 AM EDT Clinical Goal(s): Patient will remain free from falls throughout shift (11/06/23 2300) Possible barriers to meeting goal(s)/advancing plan of care: jeff/Tessy/laws Stability of the patient: Moderately stable - low risk of patient condition declining or worsening Summary regarding today's goal(s): Met: met Recommendations: continue fall precautions Problem: Decreased Cardiac Output Goal: Patient will have improved cardiac output. 11/07/2023 0531 by Maribell Mane RN Outcome: Progressing Problem: Alteration in Fluid Balance Goal: Patient will achieve & maintain optimal fluid balance. Outcome: Progressing Problem: Ineffective Breathing Pattern Goal: Patient will achieve & maintain effective breathing pattern. Outcome: Progressing Problem: Activity Intolerance & Impaired Mobility Goal: Patient will maintain optimal mobility & activity level. Outcome: Progressing Problem: Knowledge Deficit Goal: Patient & caregiver will demonstrate understanding. Outcome: Progressing Problem: Pain & Impaired Comfort Goal: Patient's pain & discomfort is manageable. Outcome: Progressing Problem: Safety & Risk for Injury Goal: Patient will remain free from injury. Outcome: Progressing Problem: Daily Care & Potential Self-Care Deficit Goal: Patient's daily care needs are met. Outcome: Progressing Problem: Risk for Impaired Physical Mobility Goal: Patient will maintain optimal mobility level. Outcome: Progressing Problem: Knowledge Deficit Goal: Patient & caregiver will demonstrate understanding. Outcome: Progressing Problem: Discharge Barriers Goal: Patient's discharge needs are met. Outcome: Progressing Problem: Actual & Potential for Falls Goal: Patient will remain free of falls. Outcome: Progressing * Ancillary Progress Note - Betty Zimmer RN - 11/06/2023 1:46 PM EDT CARE MANAGEMENT - ADULT TRANSITION NOTE [address] [address] Name: Maria Luisa Recinos Location: [facility] [place] H858/A Date: 11/06/2023 Time: 1:46 PM Risk Stratification Risk Stratification Psycho Social / Medical Concerns Identified: Adjustment to illness/injury;Multiple Comorbidities (11/04/23834) Accessed Neighborly to connect patients to social care resources: No (11/04/23834) Readmission Risk Score: 41.39 (11/06/23 1201) AM-PAC Score With Stairs : 16 (11/06/23 0900) Caregiver Information Patient Contacts Name Relation Home Work Mobile Betty Price Adult Child [phone] Juan Pablo Recinos Adult Child [phone] Transition of Care Checklist Transition of Care Checklist (aka Readmission Risk Score) Discharge Disposition: Home w/Home Health (11/04/23834) Home or Home w/Home Health: Complex (34-100%) (11/04/23834) Complex (34-100%): Coordinate initial Home Health visit within 24 hours of discharge, if medically necessary (11/04/23834) Narrative: Patient discussed during IDT rounds, chart reviewd. Patient is not medically ready for discharge on this date. Patient continues to be diuresed. She remains on her baseline oxygen of 3L. Per service, patient may need a heart cath once euvolemic and able to lay flat. SYSTEMS ENG, patient was from home with services. Patient is being evaluated by PT/OT - recommendations are pending. Patient's discharge needs are uncertain, CM will continue to follow. Anticipated Transportation at Discharge: family Patient/Family Expectations: home with SYSTEMS [employer] services Transition Planning Transition Planning Transition Plan/Considerations: Needs uncertain at this time - Continue monitoring for needs (11/04/23834) Insurance Considerations: N/A (11/04/23834) Post-Acute Care needs identified and Referrals Completed: Occupational Therapy;Physical Therapy (11/04/23834) Agency Choice Due to: Care previously established (11/04/23834) Additional Considerations: n/a Care Management will continue to monitor and assist with discharge planning needs * Care Plan - Chasidy Nieto RN - 11/06/2023 12:43 AM EDT Clinical Goal(s): Pt will remain free from falls this shift. (11/06/23 0041) Possible barriers to meeting goal(s)/advancing plan of care: impaired mobility Stability of the patient: Moderately stable - low risk of patient condition declining or worsening Summary regarding today's goal(s): Met: goals met Recommendations: maintain effective breathing pattern * Phuc Casanova - Chasidy Nieto RN - 11/04/2023 11:23 PM EDT Clinical Goal(s): Patient will remain hemodynamically stable during this shift. (11/04/232236) Possible barriers to meeting goal(s)/advancing plan of care: none Stability of the patient: Moderately stable - low risk of patient condition declining or worsening Summary regarding today's goal(s): Met: Recommendations: continue to monitor telemetry * Care Plan - Chasidy Nieto RN - 11/04/2023 10:41 PM EDT Clinical Goal(s): Patient will remain hemodynamically stable during this shift. (11/04/232236) Possible barriers to meeting goal(s)/advancing plan of care: none Stability of the patient: Moderately stable - low risk of patient condition declining or worsening Summary regarding today's goal(s): met Recommendations: cont to monitor telemetry * Care Edilberto - Chasidy Nieto RN - 11/04/2023 10:39 PM EDT Clinical Goal(s): Patient will remain hemodynamically stable during this shift. (11/04/23 8470) Possible barriers to meeting goal(s)/advancing plan of care: none Stability of the patient: Moderately stable - low risk of patient condition declining or worsening Summary regarding today's goal(s): met Recommendations: cont to monitor telemetry * Ancillary Progress Note - Betty Zimmer RN - 11/04/2023 10:23 AM EDT HOME HEALTH/HOSPICE REFERRAL FORM CARE MANAGEMENT [address] [address] Referred By: Betty Zimmer RN Admission Date: 11/03/2023 Discharge Date: Discharge Time: Start Date: JAYE Agency [facility]erred To: [facility] PATIENT INFORMATION: Name: Maria Luisa Recinos Address: [address] [address] : 1935 (home) SSN: [id number] County: [place] Emergency Contacts: Extended Emergency Contact Information Primary Emergency Contact: Betty Price [address]: [address] [place] [phone] [facility] Mobile Relation: Adult Child Preferred language: Ukrainian Business Services Vice President needed? No Secondary Emergency Contact: JorjeJuan Pablo Krista Address: [address] [place] [address] [facility] Mobile Relation: Adult Child Preferred language: Ukrainian [employer] Vice President needed? No MEDICAL INFORMATION: Principal Diagnosis: CHF Other Diagnosis: See attached History and Physical Surgery and Dates: Past Surgical History: Procedure Laterality Date APPENDECTOMY W/OTHER PROCEDURE CORONARY ANGIOGRAPHY W/LEFT HEART CATH Right 10/04/2021 CORONARY ANGIOGRAPHY W/LEFT HEART CATH performed by Rodri Jacobs MD at [facility] [place] LAP;W/HYSTERECTOMY AR CHOLECYSTECTOMY Diet: Adults: As tolerated and as per discharge instructions Allergies: Amoxicillin, Gatifloxacin, and Latex Isolation Type: None Activity Restrictions: As per discharge instructions Isolation For: None HOME CARE ORDERS: (Discipline and Frequency): JAYE SYSTEMS ENG services Medications Dose, Frequency, & Route: See patient copy of discharge instructions Equipment and Supplies: N/A Ordering Physician and Contact Information: Dr. Villegas Comments: n/a PCP: PCP: SALLY MAHMOOD [address] [address] D/C Physician: Dr. Villegas Insurance: See attached facesheet. * Ancillary Progress Note - Betty Zimmer RN - 11/04/2023 8:36 AM EDT CARE MANAGEMENT - ADULT INITIAL SCREENING [facility] [place] [address] Name: Maria Luisa Recinos Location: [facility] [place] H858/A Date: 11/04/2023 Time: 8:36 AM Discussed patient with the interdisciplinary care team. This Grinder Dresser performed a chart review as patient was transferred from [facility] to complete admission screen and assessed needs for transition planning. The child care specialist role and services were explained and emotional support was provided. Chief Complaint: No chief complaint on file. Prior Living Arrangements What was your living situation prior to admission/observation?: Independently;Alone (11/04/23834) Living Quarters: House (11/04/23834) Number of steps to enter living quarters:: 2 (11/04/23834) Do you have serious difficulty walking or climbing stairs? (5 years old or older): Yes (11/03/232141) History of falling: No (11/04/23) Prior Level of Functioning Describe the patient's ability prior to admission/observation to perform ADLs: Performs independently (11/04/23834) Describe the patient's mobility status prior to admission: Patient ambulates independently (11/04/23834) Patient uses assistive device: Yes (11/03/232141) If yes, choose:: Walker (11/03/232141) Caregiver Information Patient Contacts Name Relation Home Work Mobile DeeBetty Adult Child [phone] Juan Pablo Recinos Adult Child [phone] Risk Stratification/Psychosocial/Care Gaps Risk Stratification Psycho Social / Medical Concerns Identified: Adjustment to illness/injury;Multiple Comorbidities (11/04/23834) Accessed Neighborly to connect patients to social care resources: No (11/04/23834) Readmission Risk Score: 43.11 (11/04/23 0800) AM-PAC Score With Stairs : 16 (11/04/23 0000) Prior to Admission Services Services Prior to Admission SYSTEMS ENG Services (Services received within the last 30 days with exception, Psych within last two years): Durable Medical Equipment (11/04/23834) SYSTEMS ENG Durable Medical Equipment (DME) in home: Cane;Grab bars/Rails;Oxygen (name) - Comment;Walker Rolling (11/04/23834) DME Name: [employer] (11/04/23834) SYSTEMS ENG Transportation (Services received within the last 30 days): Family/Friends Personal Vehicle (11/04/23834) Outpatient Grinder Dresser: No care collection team lead to display Patient/Family Expectations: Patient was transferred to [facility] [place] [facility] for higher level of care, so CM performed detailed chart review. Patient is from home alone. Her son and daughter are nearby. Sheis reportedly active with [facility] for . She is on baseline 2-3L oxygen from [employer]. She is normally independent with ADLs. She has a cane and RW for use if needed. Her pharmacy is [facility] in [place]. Patient's discharge needs are presently uncertain, CM will continue to follow. For further screening information, please refer to the Care Management flow document. * Care Plan - Nik Barnett RN - 11/04/2023 12:16 AM EDT Clinical Goal(s): Patient will remain hemodynamically stable during this shift (11/04/23 0000) Possible barriers to meeting goal(s)/advancing plan of care: chest pain, SOB Stability of the patient: Moderately stable - low risk of patient condition declining or worsening Summary regarding today's goal(s): Met: tolerated care, denies any chest pain or SOB Recommendations: OOB w/ assist documented in this encounter Plan of Treatment Upcoming Encounters Date Type Department Care Team (Late st Contact Info) Description 11/24/2023 10:30 AM EDT Office Visit Cardiology, [facility] [address] [facility] [address] Jennifer Queen PA-C [address] [place] [address] 12/13/2023 10:00 AM EDT Office Visit Gastroenterology, [facility] [address] [place] [address] Trenton Cameron CRNP [address] [place] [address] 02/20/2024 2:20 PM EDT Office Visit Nephrology, [facility] [address] [place] [address] Jef Kaminski MD [address] [facility] [place] [address] Scheduled Orders Name Type Priority Associated Diagnoses Orde r Schedule BASIC METABOLIC PANEL Lab Routine Pulmonary HTN (HCC) Expected: 11/17/2023, Expires: 11/13/2024 PULMONARY STRESS TESTING Procedures Routine Pulmonary HTN (HCC) Ordered: 11/14/2023 Scheduled Referrals Name Type Priority Associated Diagnoses Orde r Schedule PULMONARY REFERRAL OP Referral Within 10 days (routine) Pulmonary HTN (HCC) Ordered: 11/14/2023 SLEEP MEDICINE REFERRAL OP Referral Within 10 days (routine) Pulmonary HTN (HCC) Ordered: 11/14/2023 Health Maintenance Due Date Last Done Comments [...] Associated Diagnosis Comments BASIC METABOLIC PANEL Routine 11/14/2023 6:04 AM EDT PT INR Routine 11/14/2023 6:04 AM EDT CBC Routine 11/14/2023 6:04 AM EDT MAGNESIUM Routine 11/14/2023 6:04 AM EDT BASIC METABOLIC PANEL Routine 11/13/2023 7:07 PM EDT MAGNESIUM Routine 11/13/2023 7:07 PM EDT BASIC METABOLIC PANEL Routine 11/13/2023 5:46 AM EDT PT INR Routine 11/13/2023 5:46 AM EDT CBC Routine 11/13/2023 5:46 AM EDT MAGNESIUM Routine 11/13/2023 5:46 AM EDT BASIC METABOLIC PANEL Routine 11/12/2023 6:30 PM EDT MAGNESIUM Routine 11/12/2023 6:30 PM EDT GLUCOSE METER, POINT OF CARE SANDI 11/12/2023 4:32 PM EDT GLUCOSE METER, POINT OF CARE SANDI 11/12/2023 12:47 PM EDT GLUCOSE METER, POINT OF CARE SANDI 11/12/2023 7:50 AM EDT GLUCOSE METER, POINT OF CARE SANDI 11/12/2023 7:28 AM EDT BASIC METABOLIC PANEL Routine 11/12/2023 3:31 AM EDT FOLIC ACID Add-on 11/12/2023 3:31 AM EDT IRON SCREEN, INCLUDING TIBC Add-on 11/12/2023 3:31 AM EDT PT INR Routine 11/12/2023 3:31 AM EDT CBC Routine 11/12/2023 3:31 AM EDT MAGNESIUM Routine 11/12/2023 3:31 AM EDT VITAMIN B12 Add-on 11/12/2023 3:31 AM EDT GLUCOSE METER, POINT OF CARE SANDI 11/11/2023 8:30 PM EDT BASIC METABOLIC PANEL Routine 11/11/2023 6:42 PM EDT MAGNESIUM Routine 11/11/2023 6:42 PM EDT GLUCOSE METER, POINT OF CARE SANDI 11/11/2023 4:52 PM EDT GLUCOSE METER, POINT OF CARE SANDI 11/11/2023 11:02 AM EDT GLUCOSE METER, POINT OF CARE SANDI 11/11/2023 7:04 AM EDT BASIC METABOLIC PANEL Routine 11/11/2023 5:19 AM EDT PT INR Routine 11/11/2023 5:19 AM EDT CBC Routine 11/11/2023 5:19 AM EDT MAGNESIUM Routine 11/11/2023 5:19 AM EDT GLUCOSE METER, POINT OF CARE SANDI 11/10/2023 9:05 PM EDT BASIC METABOLIC PANEL Routine 11/10/2023 5:42 PM EDT MAGNESIUM Routine 11/10/2023 5:42 PM EDT GLUCOSE METER, POINT OF CARE SANDI 11/10/2023 3:16 PM EDT GLUCOSE METER, POINT OF CARE SANDI 11/10/2023 11:28 AM EDT GLUCOSE METER, POINT OF CARE SANDI 11/10/2023 7:09 AM EDT PT INR Routine 11/10/2023 5:42 AM EDT BASIC METABOLIC PANEL Routine 11/10/2023 5:41 AM EDT CBC Routine 11/10/2023 5:41 AM EDT MAGNESIUM Routine 11/10/2023 5:41 AM EDT GLUCOSE METER, POINT OF CARE SANDI 11/09/2023 9:03 PM EDT BASIC METABOLIC PANEL Routine 11/09/2023 5:05 PM EDT GLUCOSE METER, POINT OF CARE SANDI 11/09/2023 4:05 PM EDT MAGNESIUM Routine 11/09/2023 11:07 AM EDT GLUCOSE METER, POINT OF CARE SANDI 11/09/2023 11:00 AM EDT GLUCOSE METER, POINT OF CARE SANDI 11/09/2023 7:56 AM EDT BASIC METABOLIC PANEL Routine 11/09/2023 4:49 AM EDT PT INR Routine 11/09/2023 4:49 AM EDT CBC Routine 11/09/2023 4:49 AM EDT MAGNESIUM Add-on 11/09/2023 4:49 AM EDT GLUCOSE METER, POINT OF CARE SANDI 11/08/2023 8:53 PM EDT GLUCOSE METER, POINT OF CARE SANDI 11/08/2023 4:53 PM EDT GLUCOSE METER, POINT OF CARE SANDI 11/08/2023 10:53 AM EDT NOCTURNAL OXIMETRY (INPATIENT) Routine 11/08/2023 7:12 AM EDT GLUCOSE METER, POINT OF CARE SANDI 11/08/2023 7:11 AM EDT BASIC METABOLIC PANEL Routine 11/08/2023 5:58 AM EDT PT INR Routine 11/08/2023 5:58 AM EDT CBC Routine 11/08/2023 5:58 AM EDT GLUCOSE METER, POINT OF CARE SANDI 11/07/2023 8:42 PM EDT BASIC METABOLIC PANEL STAT 11/07/2023 7:09 PM EDT GLUCOSE METER, POINT OF CARE SANDI 11/07/2023 4:32 PM EDT GLUCOSE METER, POINT OF CARE SANDI 11/07/2023 11:09 AM EDT GLUCOSE METER, POINT OF CARE SANDI 11/07/2023 7:35 AM EDT BASIC METABOLIC PANEL Routine 11/07/2023 6:16 AM EDT PT INR Routine 11/07/2023 6:16 AM EDT CBC Routine 11/07/2023 6:16 AM EDT BASIC METABOLIC PANEL Routine 11/06/2023 6:12 AM EDT PT INR Routine 11/06/2023 6:12 AM EDT CBC Routine 11/06/2023 6:12 AM EDT BASIC METABOLIC PANEL Routine 11/05/2023 5:57 PM EDT BASIC METABOLIC PANEL Routine 11/05/2023 6:26 AM EDT PT INR Routine 11/05/2023 6:26 AM EDT LACTATE STAT 11/05/2023 6:26 AM EDT CBC Routine 11/05/2023 6:26 AM EDT LACTATE STAT 11/05/2023 12:20 AM EDT BASIC METABOLIC PANEL Routine 11/04/2023 7:41 PM EDT LACTATE STAT 11/04/2023 5:25 PM EDT LACTATE STAT 11/04/2023 2:25 PM EDT BASIC METABOLIC PANEL Routine 11/04/2023 6:29 AM EDT PT INR Routine 11/04/2023 6:29 AM EDT LACTATE Routine 11/04/2023 6:29 AM EDT CBC Routine 11/04/2023 6:29 AM EDT LIPID PANEL WITHOUT DIRECT LDL Routine 11/04/2023 6:29 AM EDT LACTATE STAT 11/03/2023 9:03 PM EDT XR CHEST 1 VIEW STAT 11/03/2023 8:46 PM EDT HC ECG TRACING ONLY STAT 11/03/2023 8 :08 PM EDT SOB (shortness of breath) CBC Routine 11/03/2023 7:22 PM EDT TSH WITH FREE T4 IF INDICATED Add-on 11/03/2023 7:21 PM EDT COMPREHENSIVE METABOLIC PANEL Routine 11/03/2023 7:21 PM EDT PT INR Routine 11/03/2023 7:21 PM EDT T4, FREE Routine 11/03/2023 7:21 PM EDT MAGNESIUM Routine 11/03/2023 7:21 PM EDT documented in this encounter Results * MAGNESIUM (11/14/2023 6:04 AM EDT) [facility] Magnesium 2.4 1.5 - 2.6 mg/dL 11/14/2023 6:58 AM EDT LABORATORY [facility] [place] Blood Venous blood specimen / Unknown Venipuncture / Unknown 11/14/2023 6:04 AM EDT 11/14/2023 6:27 AM EDT Cornelius Espino MD LAB BLOOD ORDERABLES [facility] [address] [place] [address] * (ABNORMAL) BASIC METABOLIC PANEL (11/14/2023 6:04 AM EDT) BUN 88(H) 6 - 20 mg/dL 11/14/2023 6:58 AM EDT LAB[facility]ATORY [facility] Creatinine 1.6(H) 0.5 - 1.0 mg/dL 11/14/2023 6:58 AM EDT LAB[facility]ATORY [facility] Estimated Glomerular Filtration Rate 32(L) >=60 mL/min 11/14/2023 6:58 AM EDT LAB[facility]ATORY [facility] Comment:eGFR is calculated b ased on the CKD-EPI 2020 equation Sodium 123(L) 135 - 146 mmol/L 11/14/2023 6:58 AM EDT LAB[facility]ATORY [facility] Potassium 3.3(L) 3.5 - 5.1 mmol/L 11/14/2023 6:58 AM EDT LAB[facility]ATORY [facility] Chloride 81(L) 98 - 107 mmol/L 11/14/2023 6:58 AM EDT LAB[facility]ATORY [facility] CO2 30 22 - 32 mmol/L 11/14/2023 6:58 AM EDT LAB[facility]ORY [facility] Anion Gap 12 7 - 15 mmol/L 11/14/2023 6:58 AM EDT LAB[facility]ORY [facility] Glucose 111 70 - 120 mg/dL 11/14/2023 6:58 AM EDT LAB[facility]ATORY [facility] Calcium 10.7(H) 8.4 - 10.2 mg/dL 11/14/2023 6:58 AM EDT LAB[facility]ATORY [facility] Blood Venous blood specimen / Unknown Venipuncture / Unknown 11/14/2023 6:04 AM EDT 11/14/2023 6:27 AM EDT Cornelius Espino MD LAB BLOOD ORDERABLES [facility] [address] [place] [address] * (ABNORMAL) PT INR (11/14/2023 6:04 AM EDT) Prothrombin Time 20.4(H) 11.6 - 15.2 seconds 11/14/2023 6:50 AM EDT LABORATORY [facility] [place] INR 1.7(H) 0.8 - 1.2 11/14/2023 6:50 AM EDT LABORATORY [facility] [place] Blood Venous blood specimen / Unknown Venipuncture / Unknown 11/14/2023 6:04 AM EDT 11/14/2023 6:27 AM EDT Narrative LAB[facility]ATORY [facility] - 11/14/2023 6:50 AM EDT Warfarin Therapy INR: 2.0-3.0 conventional anticoagulation INR: 2.5-3.5 high intensity anticoagulation Sofía Thakkar DO LAB BLOOD ORDERABLES LABORATORY [facility] [place] [address] [place] [address] * (ABNORMAL) CBC (11/14/2023 6:04 AM EDT) Pathologist [facility] WBC 8.28 4.00 - 10.80 K/uL 11/14/2023 6:37 AM EDT LABORATORY [facility] RBC 3.60 3.85 - 5.15 M/uL 11/14/2023 6:37 AM EDT LABORATORY [facility] [place] HGB 9.4(L) 12.0 - 15.3 g/dL 11/14/2023 6:37 AM EDT LAB[facility]ATORY [facility] HCT 30.3(L) 36.0 - 45.2 % 11/14/2023 6:37 AM EDT LAB[facility]ATORY [facility] MCV 84.2 81.5 - 97.5 fL 11/14/2023 6:37 AM EDT LAB[facility]ATORY [facility] MCH 26.1 27.0 - 34.0 pg 11/14/2023 6:37 AM EDT LABORATORY [facility] MCHC 31.0 32.0 - 36.0 g/dL 11/14/2023 6:37 AM EDT LABORATORY [facility] RDW 16.5 11.5 - 15.5 % 11/14/2023 6:37 AM EDT LABORATORY [facility] PLT 383 140 - 400 K/uL 11/14/2023 6:37 AM EDT LABORATORY [facility] [place] MPV 9.2 6.6 - 11.1 fL 11/14/2023 6:37 AM EDT LABORATORY [facility] [place] nRBCs 0 <=0 /100 WBCs 11/14/2023 6:37 AM EDT LABORATORY [facility] [place] Blood Venous blood specimen / Unknown Venipuncture / Unknown 11/14/2023 6:04 AM EDT 11/14/2023 6:27 AM EDT Sofía Thakkar DO LAB BLOOD ORDERABLES Performing Organization Address [facility] Co de Phone Number LABORATORY [facility] [place] [address] [place] [address] * MAGNESIUM (11/13/2023 7:07 PM EDT) Pathologist [facility] Magnesium 2.3 1.5 - 2.6 mg/dL 11/13/2023 7:40 PM EDT LABORATORY [facility] [place] Blood Venous blood specimen / Unknown Venipuncture / Unknown 11/13/2023 7:07 PM EDT 11/13/2023 7:11 PM EDT Cornelius Espino MD LAB BLOOD ORDERABLES Performing Organization Address [facility] Co de Phone Number LABORATORY [facility] [place] [address] [place] [address] * (ABNORMAL) BASIC METABOLIC PANEL (11/13/2023 7:07 PM EDT) BUN 80(H) 6 - 20 mg/dL 11/13/2023 7:40 PM EDT LABORATORY [facility] [place] Creatinine 1.5(H) 0.5 - 1.0 mg/dL 11/13/2023 7:40 PM EDT LABORATORY [facility] [place] Estimated Glomerular Filtration Rate 33(L) >=60 mL/min 11/13/2023 7:40 PM EDT LABORATORY [facility] [place] Comment:eGFR is calculated b ased on the CKD-EPI 2020 equation Sodium 122(L) 135 - 146 mmol/L 11/13/2023 7:40 PM EDT LABORATORY [facility] [place] Potassium 4.1 3.5 - 5.1 mmol/L 11/13/2023 7:40 PM EDT LAB[facility]ATORY [facility] Chloride 80(L) 98 - 107 mmol/L 11/13/2023 7:40 PM EDT LAB[facility]ATORY [facility] CO2 30 22 - 32 mmol/L 11/13/2023 7:40 PM EDT LAB[facility]ATORY [facility] Anion Gap 12 7 - 15 mmol/L 11/13/2023 7:40 PM EDT LAB[facility]ATORY [facility] Glucose 125(H) 70 - 120 mg/dL 11/13/2023 7:40 PM EDT LAB[facility]ATORY [facility] Calcium 10.3(H) 8.4 - 10.2 mg/dL 11/13/2023 7:40 PM EDT LAB[facility]ATORY [facility] Blood Venous blood specimen / Unknown Venipuncture / Unknown 11/13/2023 7:07 PM EDT 11/13/2023 7:11 PM EDT Cornelius Espino MD LAB BLOOD ORDERABLES Performing Organization Address City/[facility]/ZIP Co de Phone Number LABORATORY [facility] [place] [address] [place] [address] * MAGNESIUM (11/13/2023 5:46 AM EDT) Magnesium 2.2 1.5 - 2.6 mg/dL 11/13/2023 6:33 AM EDT LABORATORY C Blood Venous blood specimen / Unknown Venipuncture / Unknown 11/13/2023 5:46 AM EDT 11/13/2023 6:01 AM EDT Cornelius Espino MD LAB BLOOD ORDERABLES LABORATORY [facility] [place] [address] [place] [address] * (ABNORMAL) BASIC METABOLIC PANEL (11/13/2023 5:46 AM EDT) BUN 56(H) 6 - 20 mg/dL 11/13/2023 6:33 AM EDT LAB[facility]ATORY [facility] Creatinine 1.6(H) 0.5 - 1.0 mg/dL 11/13/2023 6:33 AM EDT LAB[facility]ATORY [facility] Estimated Glomerular Filtration Rate 32(L) >=60 mL/min 11/13/2023 6:33 AM EDT LAB[facility]ATORY [facility] Comment:eGFR is calculated b ased on the CKD-EPI 2020 equation Sodium 122(L) 135 - 146 mmol/L 11/13/2023 6:33 AM EDT LAB[facility]ATORY [facility] Potassium 3.5 3.5 - 5.1 mmol/L 11/13/2023 6:33 AM EDT LAB[facility]ATORY [facility] Chloride 81(L) 98 - 107 mmol/L 11/13/2023 6:33 AM EDT LAB[facility]ATORY [facility] CO2 31 22 - 32 mmol/L 11/13/2023 6:33 AM EDT LABORATORY C Anion Gap 10 7 - 15 mmol/L 11/13/2023 6:33 AM EDT LABORATORY C Glucose 101 70 - 120 mg/dL 11/13/2023 6:33 AM EDT LABORATORY C Calcium 9.6 8.4 - 10.2 mg/dL 11/13/2023 6:33 AM EDT LABORATORY [facility] [place] Blood Venous blood specimen / Unknown Venipuncture / Unknown 11/13/2023 5:46 AM EDT 11/13/2023 6:01 AM EDT Cornelius Espino MD LAB BLOOD ORDERABLES Performing Organization Address City/State/[facility] Co de Phone Number LABORATORY [facility] [place] [address] [place] [address] * (ABNORMAL) PT INR (11/13/2023 5:46 AM EDT) [facility] Prothrombin Time 21.6(H) 11.6 - 15.2 seconds 11/13/2023 6:30 AM EDT LAB[facility]ATORY [facility] INR 1.9(H) 0.8 - 1.2 11/13/2023 6:30 AM EDT LABORATORY [facility] [place] Blood Venous blood specimen / Unknown Venipuncture / Unknown 11/13/2023 5:46 AM EDT 11/13/2023 6:01 AM EDT Narrative LABORATORY [facility] - 11/13/2023 6:30 AM EDT Warfarin Therapy INR: 2.0-3.0 conventional anticoagulation INR: 2.5-3.5 high intensity anticoagulation Sofía Thakkar DO LAB BLOOD ORDERABLES Performing Organization Address City/[facility]/ZIP Co de Phone Number LABORATORY [facility] [address] [place] [address] * (ABNORMAL) CBC (11/13/2023 5:46 AM EDT) WBC 9.29 4.00 - 10.80 K/uL 11/13/2023 6:17 AM EDT LAB[facility]ATORY [facility] RBC 3.56 3.85 - 5.15 M/uL 11/13/2023 6:17 AM EDT LAB[facility]ATORY [facility] HGB 9.3(L) 12.0 - 15.3 g/dL 11/13/2023 6:17 AM EDT LAB[facility]ATORY [facility] HCT 30.1(L) 36.0 - 45.2 % 11/13/2023 6:17 AM EDT LAB[facility]ATORY [facility] MCV 84.6 81.5 - 97.5 fL 11/13/2023 6:17 AM EDT LAB[facility]ATORY [facility] MCH 26.1 27.0 - 34.0 pg 11/13/2023 6:17 AM EDT LAB[facility]ATORY [facility] MCHC 30.9 32.0 - 36.0 g/dL 11/13/2023 6:17 AM EDT LAB[facility]ATORY [facility] RDW 16.4 11.5 - 15.5 % 11/13/2023 6:17 AM EDT LABORATORY [facility] PLT 374 140 - 400 K/uL 11/13/2023 6:17 AM EDT LAB[facility]ATORY [facility] MPV 9.2 6.6 - 11.1 fL 11/13/2023 6:17 AM EDT LABORATORY [facility] nRBCs 0 <=0 /100 WBCs 11/13/2023 6:17 AM EDT LAB[facility]ATORY [facility] Blood Venous blood specimen / Unknown Venipuncture / Unknown 11/13/2023 5:46 AM EDT 11/13/2023 6:01 AM EDT Sofía Thakkar DO LAB BLOOD ORDERABLES LAB[facility] [address] [place] [address] * MAGNESIUM (11/12/2023 6:30 PM EDT) Magnesium 2.2 1.5 - 2.6 mg/dL 11/12/2023 7:03 PM EDT LABORATORY [facility] [place] Blood Venous blood specimen / Unknown Venipuncture / Unknown 11/12/2023 6:30 PM EDT 11/12/2023 6:35 PM EDT Cornelius Espino MD LAB BLOOD ORDERABLES Performing Organization Address City/State/[facility] Co de Phone Number LABORATORY [facility] [place] [address] [place] [address] * (ABNORMAL) BASIC METABOLIC PANEL (11/12/2023 6:30 PM EDT) BUN 59(H) 6 - 20 mg/dL 11/12/2023 7:03 PM EDT LABORATORY [facility] [place] Creatinine 1.6(H) 0.5 - 1.0 mg/dL 11/12/2023 7:03 PM EDT LABORATORY [facility] [place] Estimated Glomerular Filtration Rate 31(L) >=60 mL/min 11/12/2023 7:03 PM EDT LABORATORY C Comment:eGFR is calculated b ased on the CKD-EPI 2020 equation Sodium 124(L) 135 - 146 mmol/L 11/12/2023 7:03 PM EDT LABORATORY C Potassium 4.0 3.5 - 5.1 mmol/L 11/12/2023 7:03 PM EDT LABORATORY [facility] [place] Chloride 81(L) 98 - 107 mmol/L 11/12/2023 7:03 PM EDT LABORATORY C CO2 31 22 - 32 mmol/L 11/12/2023 7:03 PM EDT LABORATORY C Anion Gap 12 7 - 15 mmol/L 11/12/2023 7:03 PM EDT LABORATORY C Glucose 131(H) 70 - 120 mg/dL 11/12/2023 7:03 PM EDT LABORATORY C Calcium 10.0 8.4 - 10.2 mg/dL 11/12/2023 7:03 PM EDT LABORATORY [facility] [place] Blood Venous blood specimen / Unknown Venipuncture / Unknown 11/12/2023 6:30 PM EDT 11/12/2023 6:35 PM EDT Cornelius Espino MD LAB BLOOD ORDERABLES Performing Organization Address City/[facility]/ZIP Co de Phone Number LABORATORY [facility] [place] [address] [place] [address] * (ABNORMAL) GLUCOSE METER, POINT OF CARE (11/12/2023 4:32 PM EDT) Glucose Meter 128(H) 70 - 120 mg/dL 11/13/2023 8:17 AM EDT [employer] Blood Whole blood specimen / Unknown 11/12/2023 4:32 PM EDT 11/13/2023 8:17 AM EDT [facility] LAB POINT OF CARE TEST DOCKED DEVICE UNSOLICITED RESULTS Performing Organization Address [facility] Co de Phone Number [facility] [address] [place] [address] * (ABNORMAL) GLUCOSE METER, POINT OF CARE (11/12/2023 12:47 PM EDT) Glucose Meter 142(H) 70 - 120 mg/dL 11/12/2023 12:50 PM EDT [employer] Blood Whole blood specimen / Unknown 11/12/2023 12:47 PM EDT 11/12/2023 12:50 PM EDT Travis Nik Pfirman DO LAB POINT OF CARE TEST DOCKED DEVICE UNSOLICITED RESULTS Performing Organization Address City/[facility]/ZIP Co de Phone Number [facility] [address] [place] [address] * GLUCOSE METER, POINT OF CARE (11/12/2023 7:50 AM EDT) Glucose Meter 101 70 - 120 mg/dL 11/12/2023 8:03 AM EDT [employer] Blood Whole blood specimen / Unknown 11/12/2023 7:50 AM EDT 11/12/2023 8:03 AM EDT [facility] DO LAB POINT OF CARE TEST DOCKED DEVICE UNSOLICITED RESULTS Performing Organization Address City/[facility] Co de Phone Number [facility] [address] [place] [address] * GLUCOSE METER, POINT OF CARE (11/12/2023 7:28 AM EDT) Glucose Meter 101 70 - 120 mg/dL 11/12/2023 8:02 AM EDT [facility] Blood Whole blood specimen / Unknown 11/12/2023 7:28 AM EDT 11/12/2023 8:02 AM EDT Travis [facility]za [facility] DO LAB POINT OF CARE TEST DOCKED DEVICE UNSOLICITED RESULTS Performing Organization Address [facility] de Phone Number [facility] [address] [place] [address] * FOLIC ACID (11/12/2023 3:31 AM EDT) Folic Acid >20.0 >4.5 ng/mL 11/12/2023 10:35 AM EDT LABORATORY [facility] [place] Blood Venous blood specimen / Unknown Venipuncture / Unknown 11/12/2023 3:31 AM EDT 11/12/2023 3:36 AM EDT Gina Pham MD LAB BLOOD ORDERABLES Performing Organization Address City/[facility]/ZIP Co de Phone Number LABORATORY [facility] [address] [place] [address] * (ABNORMAL) VITAMIN B12 (11/12/2023 3:31 AM EDT) Vitamin B12 1,969(H) 232 - 1,245 pg/mL 11/12/2023 10:35 AM EDT LABORATORY [facility] Blood Venous blood specimen / Unknown Venipuncture / Unknown 11/12/2023 3:31 AM EDT 11/12/2023 3:36 AM EDT Gina Pham MD LAB BLOOD ORDERABLES Performing Organization Address [facility] Co de Phone Number LABORATORY [facility] [place] [address] [place] [address] * (ABNORMAL) IRON SCREEN, INCLUDING TIBC (11/12/2023 3:31 AM EDT) Iron 24(L) 33 - 151 ug/dL 11/12/2023 10:01 AM EDT LABORATORY [facility] Iron Binding Capacity 488(H) 250 - 425 ug/dL 11/12/2023 10:01 AM EDT LAB[facility]ATORY [facility] Transferrin Saturation Percent 5(L) 15 - 55 % 11/12/2023 10:01 AM EDT LABORATORY [facility] [place] Blood Venous blood specimen / Unknown Venipuncture / Unknown 11/12/2023 3:31 AM EDT 11/12/2023 3:36 AM EDT Gina Pham MD LAB BLOOD ORDERABLES Performing Organization Address [facility] Co de Phone Number LABORATORY [facility] [place] [address] [place] [address] * MAGNESIUM (11/12/2023 3:31 AM EDT) Magnesium 2.1 1.5 - 2.6 mg/dL 11/12/2023 4:07 AM EDT LABORATORY [facility] [place] Blood Venous blood specimen / Unknown Venipuncture / Unknown 11/12/2023 3:31 AM EDT 11/12/2023 3:36 AM EDT Cornelius Espino MD LAB BLOOD ORDERABLES Performing Organization Address [facility] Co de Phone Number LABORATORY [facility] [place] [address] [place] [address] * (ABNORMAL) BASIC METABOLIC PANEL (11/12/2023 3:31 AM EDT) BUN 55(H) 6 - 20 mg/dL 11/12/2023 4:07 AM EDT LABORATORY C Creatinine 1.6(H) 0.5 - 1.0 mg/dL 11/12/2023 4:07 AM EDT LABORATORY [facility] Estimated Glomerular Filtration Rate 33(L) >=60 mL/min 11/12/2023 4:07 AM EDT LABORATORY [facility] Comment:eGFR is calculated b ased on the CKD-EPI 2020 equation Sodium 123(L) 135 - 146 mmol/L 11/12/2023 4:07 AM EDT LAB[facility]ATORY [facility] Potassium 3.5 3.5 - 5.1 mmol/L 11/12/2023 4:07 AM EDT LAB[facility]ATORY [facility] Chloride 81(L) 98 - 107 mmol/L 11/12/2023 4:07 AM EDT LAB[facility]ATORY [facility] CO2 30 22 - 32 mmol/L 11/12/2023 4:07 AM EDT LAB[facility]ATORY [facility] Anion Gap 12 7 - 15 mmol/L 11/12/2023 4:07 AM EDT LAB[facility]ATORY [facility] Glucose 107 70 - 120 mg/dL 11/12/2023 4:07 AM EDT LAB[facility]ATORY [facility] Calcium 9.5 8.4 - 10.2 mg/dL 11/12/2023 4:07 AM EDT LABORATORY C Blood Venous blood specimen / Unknown Venipuncture / Unknown 11/12/2023 3:31 AM EDT 11/12/2023 3:36 AM EDT Cornelius Espino MD LAB BLOOD ORDERABLES LABORATORY [facility] [place] [address] [place] [address] * (ABNORMAL) PT INR (11/12/2023 3:31 AM EDT) [facility] Prothrombin Time 21.3(H) 11.6 - 15.2 seconds 11/12/2023 4:00 AM EDT LABORATORY [facility] INR 1.8(H) 0.8 - 1.2 11/12/2023 4:00 AM EDT LABORATORY [facility] [place] Blood Venous blood specimen / Unknown Venipuncture / Unknown 11/12/2023 3:31 AM EDT 11/12/2023 3:36 AM EDT Narrative LABORATORY [facility] - 11/12/2023 4:00 AM EDT Warfarin Therapy INR: 2.0-3.0 conventional anticoagulation INR: 2.5-3.5 high intensity anticoagulation Sofía Thakkar DO LAB BLOOD ORDERABLES LABORATORY [facility] [address] [place] [address] * (ABNORMAL) CBC (11/12/2023 3:31 AM EDT) WBC 9.22 4.00 - 10.80 K/uL 11/12/2023 3:48 AM EDT LABORATORY [facility] RBC 3.42 3.85 - 5.15 M/uL 11/12/2023 3:48 AM EDT LABORATORY [facility] HGB 8.9(L) 12.0 - 15.3 g/dL 11/12/2023 3:48 AM EDT LABORATORY [facility] HCT 28.6(L) 36.0 - 45.2 % 11/12/2023 3:48 AM EDT LABORATORY [facility] MCV 83.6 81.5 - 97.5 fL 11/12/2023 3:48 AM EDT LABORATORY [facility] MCH 26.0 27.0 - 34.0 pg 11/12/2023 3:48 AM EDT LABORATORY [facility] MCHC 31.1 32.0 - 36.0 g/dL 11/12/2023 3:48 AM EDT LABORATORY [facility] RDW 16.7 11.5 - 15.5 % 11/12/2023 3:48 AM EDT LABORATORY [facility] PLT 350 140 - 400 K/uL 11/12/2023 3:48 AM EDT LABORATORY [facility] MPV 9.1 6.6 - 11.1 fL 11/12/2023 3:48 AM EDT LABORATORY [facility] nRBCs 0 <=0 /100 WBCs 11/12/2023 3:48 AM EDT LAB[facility]ATORY [facility] Blood Venous blood specimen / Unknown Venipuncture / Unknown 11/12/2023 3:31 AM EDT 11/12/2023 3:36 AM EDT Sofía Thakkar DO LAB BLOOD ORDERABLES LAB[facility]ATORY [facility] [address] [place] [address] * (ABNORMAL) GLUCOSE METER, POINT OF CARE (11/11/2023 8:30 PM EDT) [facility] Glucose Meter 128(H) 70 - 120 mg/dL 11/11/2023 10:13 PM EDT [facility] Blood Whole blood specimen / Unknown 11/11/2023 8:30 PM EDT 11/11/2023 10:13 PM EDT Travis Sánchez DO LAB POINT OF CARE TEST DOCKED DEVICE UNSOLICITED RESULTS [facility] [address] [place] [address] * MAGNESIUM (11/11/2023 6:42 PM EDT) [facility] Magnesium 2.2 1.5 - 2.6 mg/dL 11/11/2023 7:13 PM EDT LABORATORY [facility] [place] Blood Venous blood specimen / Unknown Venipuncture / Unknown 11/11/2023 6:42 PM EDT 11/11/2023 6:46 PM EDT Cornelius Espino MD LAB BLOOD ORDERABLES LABORATORY [place] [address] [place] [address] * (ABNORMAL) BASIC METABOLIC PANEL (11/11/2023 6:42 PM EDT) [facility] BUN 55(H) 6 - 20 mg/dL 11/11/2023 7:13 PM EDT LABORATORY [facility] [place] Creatinine 1.5(H) 0.5 - 1.0 mg/dL 11/11/2023 7:13 PM EDT LABORATORY [facility] [place] Estimated Glomerular Filtration Rate 33(L) >=60 mL/min 11/11/2023 7:13 PM EDT LABORATORY [facility] [place] Comment:eGFR is calculated b ased on the CKD-EPI 2020 equation Sodium 124(L) 135 - 146 mmol/L 11/11/2023 7:13 PM EDT [facility] [place] [facility] [place] Potassium 4.2 3.5 - 5.1 mmol/L 11/11/2023 7:13 PM EDT LAB[facility] [place] [facility] [place] Chloride 83(L) 98 - 107 mmol/L 11/11/2023 7:13 PM EDT LAB[facility] [place] [facility] [place] CO2 28 22 - 32 mmol/L 11/11/2023 7:13 PM EDT LAB[facility] [place] [facility] [place] Anion Gap 13 7 - 15 mmol/L 11/11/2023 7:13 PM EDT LAB[facility] [place] [facility] [place] Glucose 146(H) 70 - 120 mg/dL 11/11/2023 7:13 PM EDT LAB[facility] [place] [facility] [place] Calcium 9.5 8.4 - 10.2 mg/dL 11/11/2023 7:13 PM EDT LAB[facility]ATORY [facility] [place] [facility] [place] Blood Venous blood specimen / Unknown Venipuncture / Unknown 11/11/2023 6:42 PM EDT 11/11/2023 6:46 PM EDT Cornelius Espino MD LAB BLOOD ORDERABLES LAB[facility]AT[facility] [place] [facility] [place] [address] [place] [address] * (ABNORMAL) GLUCOSE METER, POINT OF CARE (11/11/2023 4:52 PM EDT) Glucose Meter 127(H) 70 - 120 mg/dL 11/11/2023 5:04 PM EDT [facility] [place] Blood Whole blood specimen / Unknown 11/11/2023 4:52 PM EDT 11/11/2023 5:04 PM EDT Travis Sánchez DO LAB POINT OF CARE TEST DOCKED DEVICE UNSOLICITED RESULTS [facility] [address] [place] [address] * (ABNORMAL) GLUCOSE METER, POINT OF CARE (11/11/2023 11:02 AM EDT) Glucose Meter 127(H) 70 - 120 mg/dL 11/11/2023 11:21 AM EDT [facility] Blood Whole blood specimen / Unknown 11/11/2023 11:02 AM EDT 11/11/2023 11:20 AM EDT Travis Sánchez DO LAB POINT OF CARE TEST DOCKED DEVICE UNSOLICITED RESULTS Performing Organization Address [facility] Co de Phone Number [facility] [address] [place] [address] * GLUCOSE METER, POINT OF CARE (11/11/2023 7:04 AM EDT) Glucose Meter 88 70 - 120 mg/dL 11/11/2023 7:33 AM EDT [facility] Blood Whole blood specimen / Unknown 11/11/2023 7:04 AM EDT 11/11/2023 7:33 AM EDT Travis Sánchez LAB POINT OF CARE TEST DOCKED DEVICE UNSOLICITED RESULTS Performing Organization Address [facility] Co de Phone Number [facility] [address] [place] [address] * MAGNESIUM (11/11/2023 5:19 AM EDT) Magnesium 2.3 1.5 - 2.6 mg/dL 11/11/2023 7:35 AM EDT LAB[facility]ATORY [facility] [place] [facility] [place] Blood Venous blood specimen / Unknown Venipuncture / Unknown 11/11/2023 5:19 AM EDT 11/11/2023 7:06 AM EDT Cornelius Espino MD LAB BLOOD ORDERABLES Performing Organization Address City/[facility]/ZIP Co de Phone Number LABORATORY [facility] [address] [place] [address] * (ABNORMAL) BASIC METABOLIC PANEL (11/11/2023 5:19 AM EDT) BUN 53(H) 6 - 20 mg/dL 11/11/2023 7:35 AM EDT LABORATORY C Creatinine 1.6(H) 0.5 - 1.0 mg/dL 11/11/2023 7:35 AM EDT LAB[facility] Estimated Glomerular Filtration Rate 31(L) >=60 mL/min 11/11/2023 7:35 AM EDT LAB[facility] Comment:eGFR is calculated b ased on the CKD-EPI 2020 equation Sodium 127(L) 135 - 146 mmol/L 11/11/2023 7:35 AM EDT [facility] Potassium 3.7 3.5 - 5.1 mmol/L 11/11/2023 7:35 AM EDT LABORATORY [facility] Chloride 84(L) 98 - 107 mmol/L 11/11/2023 7:35 AM EDT LABORATORY [facility] CO2 30 22 - 32 mmol/L 11/11/2023 7:35 AM EDT LABORATORY [facility] Anion Gap 13 7 - 15 mmol/L 11/11/2023 7:35 AM EDT LABORATORY [facility] Glucose 82 70 - 120 mg/dL 11/11/2023 7:35 AM EDT LABORATORY [facility] Calcium 9.5 8.4 - 10.2 mg/dL 11/11/2023 7:35 AM EDT LABORATORY C Blood Venous blood specimen / Unknown Venipuncture / Unknown 11/11/2023 5:19 AM EDT 11/11/2023 7:06 AM EDT Cornelius Espino MD LAB BLOOD ORDERABLES LABORATORY [facility] [place] [address] [place] [address] * (ABNORMAL) PT INR (11/11/2023 5:19 AM EDT) [facility] Prothrombin Time 21.1(H) 11.6 - 15.2 seconds 11/11/2023 7:28 AM EDT LABORATORY [facility] INR 1.8(H) 0.8 - 1.2 11/11/2023 7:28 AM EDT LABORATORY [facility] [place] Blood Venous blood specimen / Unknown Venipuncture / Unknown 11/11/2023 5:19 AM EDT 11/11/2023 7:06 AM EDT Narrative LABORATORY [facility] - 11/11/2023 7:28 AM EDT Warfarin Therapy INR: 2.0-3.0 conventional anticoagulation INR: 2.5-3.5 high intensity anticoagulation Sofía Thakkar DO LAB BLOOD ORDERABLES LABORATORY [facility] [place] [address] [place] [address] * (ABNORMAL) CBC (11/11/2023 5:19 AM EDT) WBC 9.35 4.00 - 10.80 K/uL 11/11/2023 7:16 AM EDT LABORATORY [facility] RBC 3.55 3.85 - 5.15 M/uL 11/11/2023 7:16 AM EDT LABORATORY C HGB 9.4(L) 12.0 - 15.3 g/dL 11/11/2023 7:16 AM EDT LABORATORY [facility] HCT 31.0(L) 36.0 - 45.2 % 11/11/2023 7:16 AM EDT LABORATORY [facility] [place] MCV 87.3 81.5 - 97.5 fL 11/11/2023 7:16 AM EDT LABORATORY [facility] [place] MCH 26.5 27.0 - 34.0 pg 11/11/2023 7:16 AM EDT LABORATORY [facility] [place] MCHC 30.3 32.0 - 36.0 g/dL 11/11/2023 7:16 AM EDT LABORATORY [facility] [place] RDW 16.7 11.5 - 15.5 % 11/11/2023 7:16 AM EDT LABORATORY [facility] [place] PLT 375 140 - 400 K/uL 11/11/2023 7:16 AM EDT LABORATORY [facility] [place] MPV 9.3 6.6 - 11.1 fL 11/11/2023 7:16 AM EDT LABORATORY [facility] [place] nRBCs 0 <=0 /100 WBCs 11/11/2023 7:16 AM EDT LABORATORY [facility] [place] Blood Venous blood specimen / Unknown Venipuncture / Unknown 11/11/2023 5:19 AM EDT 11/11/2023 7:06 AM EDT Sofía Thakkar DO LAB BLOOD ORDERABLES LABORATORY [facility] [place] [address] [place] [address] * GLUCOSE METER, POINT OF CARE (11/10/2023 9:05 PM EDT) [facility] Glucose Meter 120 70 - 120 mg/dL 11/10/2023 9:21 PM EDT [facility] Blood Whole blood specimen / Unknown 11/10/2023 9:05 PM EDT 11/10/2023 9:20 PM EDT Travis Sánchez DO LAB POINT OF CARE TEST DOCKED DEVICE UNSOLICITED RESULTS [facility] [address] [place] [address] * MAGNESIUM (11/10/2023 5:42 PM EDT) [facility] Magnesium 2.1 1.5 - 2.6 mg/dL 11/10/2023 6:54 PM EDT LABORATORY [facility] [place] Blood Venous blood specimen / Unknown Venipuncture / Unknown 11/10/2023 5:42 PM EDT 11/10/2023 6:03 PM EDT Cornelius Espino MD LAB BLOOD ORDERABLES LABORATORY [facility] [place] [address] [place] [address] * (ABNORMAL) BASIC METABOLIC PANEL (11/10/2023 5:42 PM EDT) [facility] BUN 50(H) 6 - 20 mg/dL 11/10/2023 6:54 PM EDT LABORATORY [facility] [place] Creatinine 1.6(H) 0.5 - 1.0 mg/dL 11/10/2023 6:54 PM EDT LABORATORY [facility] [place] Estimated Glomerular Filtration Rate 31(L) >=60 mL/min 11/10/2023 6:54 PM EDT LABORATORY [facility] [place] Comment:eGFR is calculated b ased on the CKD-EPI 2020 equation Sodium 126(L) 135 - 146 mmol/L 11/10/2023 6:54 PM EDT LABORATORY [facility] Potassium 4.6 3.5 - 5.1 mmol/L 11/10/2023 6:54 PM EDT LABORATORY [facility] Chloride 85(L) 98 - 107 mmol/L 11/10/2023 6:54 PM EDT LABORATORY [facility] CO2 31 22 - 32 mmol/L 11/10/2023 6:54 PM EDT LABORATORY [facility] Anion Gap 10 7 - 15 mmol/L 11/10/2023 6:54 PM EDT LABORATORY C Glucose 106 70 - 120 mg/dL 11/10/2023 6:54 PM EDT LABORATORY C Calcium 9.5 8.4 - 10.2 mg/dL 11/10/2023 6:54 PM EDT LABORATORY C Blood Venous blood specimen / Unknown Venipuncture / Unknown 11/10/2023 5:42 PM EDT 11/10/2023 6:03 PM EDT Cornelius Espino MD LAB BLOOD ORDERABLES LABORATORY [facility] [place] [address] [place] [address] * (ABNORMAL) GLUCOSE METER, POINT OF CARE (11/10/2023 3:16 PM EDT) Glucose Meter 132(H) 70 - 120 mg/dL 11/11/2023 1:10 AM EDT [facility] Blood Whole blood specimen / Unknown 11/10/2023 3:16 PM EDT 11/11/2023 1:10 AM EDT Travis Sánchez DO LAB POINT OF CARE TEST DOCKED DEVICE UNSOLICITED RESULTS [facility] [address] [place] [address] * (ABNORMAL) GLUCOSE METER, POINT OF CARE (11/10/2023 11:28 AM EDT) Glucose Meter 166(H) 70 - 120 mg/dL 11/10/2023 12:09 PM EDT [facility] Blood Whole blood specimen / Unknown 11/10/2023 11:28 AM EDT 11/10/2023 12:09 PM EDT Travis Sánchez DO LAB POINT OF CARE TEST DOCKED DEVICE UNSOLICITED RESULTS [facility] [address] [place] [address] * GLUCOSE METER, POINT OF CARE (11/10/2023 7:09 AM EDT) Glucose Meter 109 70 - 120 mg/dL 11/10/2023 8:48 AM EDT [facility] Blood Whole blood specimen / Unknown 11/10/2023 7:09 AM EDT 11/10/2023 8:48 AM EDT Travis Sánchez DO LAB POINT OF CARE TEST DOCKED DEVICE UNSOLICITED RESULTS Performing Organization Address [facility] Co de Phone Number [facility] [address] [place] [address] * (ABNORMAL) PT INR (11/10/2023 5:42 AM EDT) Prothrombin Time 21.8(H) 11.6 - 15.2 seconds 11/10/2023 6:36 AM EDT LABORATORY [facility] INR 1.9(H) 0.8 - 1.2 11/10/2023 6:36 AM EDT LABORATORY GM Blood Venous blood specimen / Unknown Venipuncture / Unknown 11/10/2023 5:42 AM EDT 11/10/2023 6:03 AM EDT Narrative LABORATORY [facility] - 11/10/2023 6:36 AM EDT Warfarin Therapy INR: 2.0-3.0 conventional anticoagulation INR: 2.5-3.5 high intensity anticoagulation Sofía Thakkar DO LAB BLOOD ORDERABLES Performing Organization Address City/[facility]/ZIP Co de Phone Number LABORATORY [facility] [address] [place] [address] * MAGNESIUM (11/10/2023 5:41 AM EDT) Magnesium 2.1 1.5 - 2.6 mg/dL 11/10/2023 6:34 AM EDT LABORATORY [facility] Blood Venous blood specimen / Unknown Venipuncture / Unknown 11/10/2023 5:41 AM EDT 11/10/2023 6:03 AM EDT Cornelius Espino MD LAB BLOOD ORDERABLES LAB[facility]ATORY [facility] [address] [place] [address] * (ABNORMAL) BASIC METABOLIC PANEL (11/10/2023 5:41 AM EDT) BUN 43(H) 6 - 20 mg/dL 11/10/2023 6:34 AM EDT LABORATORY [facility] Creatinine 1.4(H) 0.5 - 1.0 mg/dL 11/10/2023 6:34 AM EDT LABORATORY [facility] Estimated Glomerular Filtration Rate 37(L) >=60 mL/min 11/10/2023 6:34 AM EDT LABORATORY [facility] Comment:eGFR is calculated b ased on the CKD-EPI 2020 equation Sodium 128(L) 135 - 146 mmol/L 11/10/2023 6:34 AM EDT LABORATORY [facility] Potassium 3.1(L) 3.5 - 5.1 mmol/L 11/10/2023 6:34 AM EDT LABORATORY [facility] Chloride 87(L) 98 - 107 mmol/L 11/10/2023 6:34 AM EDT LABORATORY [facility] CO2 30 22 - 32 mmol/L 11/10/2023 6:34 AM EDT LABORATORY [facility] Anion Gap 11 7 - 15 mmol/L 11/10/2023 6:34 AM EDT LABORATORY [facility] Glucose 94 70 - 120 mg/dL 11/10/2023 6:34 AM EDT LABORATORY [facility] Calcium 8.8 8.4 - 10.2 mg/dL 11/10/2023 6:34 AM EDT LABORATORY [facility] Blood Venous blood specimen / Unknown Venipuncture / Unknown 11/10/2023 5:41 AM EDT 11/10/2023 6:03 AM EDT Jhoan Kelley MD LAB BLOOD ORDERABL ES Performing Organization Address City/[facility]/ZIP Co de Phone Number LABORATORY [facility] [address] [place] [address] * (ABNORMAL) CBC (11/10/2023 5:41 AM EDT) WBC 10.48 4.00 - 10.80 K/uL 11/10/2023 6:31 AM EDT LABORATORY [facility] RBC 3.39 3.85 - 5.15 M/uL 11/10/2023 6:31 AM EDT LABORATORY [facility] HGB 9.0(L) 12.0 - 15.3 g/dL 11/10/2023 6:31 AM EDT LABORATORY [facility] HCT 29.2(L) 36.0 - 45.2 % 11/10/2023 6:31 AM EDT LABORATORY [facility] MCV 86.1 81.5 - 97.5 fL 11/10/2023 6:31 AM EDT LABORATORY [facility] MCH 26.5 27.0 - 34.0 pg 11/10/2023 6:31 AM EDT LABORATORY [facility] MCHC 30.8 32.0 - 36.0 g/dL 11/10/2023 6:31 AM EDT LABORATORY [facility] RDW 16.6 11.5 - 15.5 % 11/10/2023 6:31 AM EDT LABORATORY [facility] PLT 344 140 - 400 K/uL 11/10/2023 6:31 AM EDT LABORATORY [facility] MPV 9.4 6.6 - 11.1 fL 11/10/2023 6:31 AM EDT LABORATORY [facility] nRBCs 0 <=0 /100 WBCs 11/10/2023 6:31 AM EDT LABORATORY [facility] Blood Venous blood specimen / Unknown Venipuncture / Unknown 11/10/2023 5:41 AM EDT 11/10/2023 6:02 AM EDT Sofía Thakkar DO LAB BLOOD ORDERABLES LABORATORY [facility] [address] [place] [address] * GLUCOSE METER, POINT OF CARE (11/09/2023 9:03 PM EDT) Glucose Meter 120 70 - 120 mg/dL 11/09/2023 9:15 PM EDT [facility] Blood Whole blood specimen / Unknown 11/09/2023 9:03 PM EDT 11/09/2023 9:15 PM EDT Travis Sánchez DO LAB POINT OF CARE TEST DOCKED DEVICE UNSOLICITED RESULTS [facility] [address] [place] [address] * (ABNORMAL) BASIC METABOLIC PANEL (11/09/2023 5:05 PM EDT) BUN 45(H) 6 - 20 mg/dL 11/09/2023 5:36 PM EDT LABORATORY [facility] Creatinine 1.5(H) 0.5 - 1.0 mg/dL 11/09/2023 5:36 PM EDT LABORATORY [facility] Estimated Glomerular Filtration Rate 35(L) >=60 mL/min 11/09/2023 5:36 PM EDT LABORATORY [facility] Comment:eGFR is calculated b ased on the CKD-EPI 2020 equation Sodium 127(L) 135 - 146 mmol/L 11/09/2023 5:36 PM EDT LABORATORY [facility] Potassium 3.8 3.5 - 5.1 mmol/L 11/09/2023 5:36 PM EDT LABORATORY [facility] Chloride 86(L) 98 - 107 mmol/L 11/09/2023 5:36 PM EDT LABORATORY [facility] CO2 31 22 - 32 mmol/L 11/09/2023 5:36 PM EDT LABORATORY [facility] Anion Gap 10 7 - 15 mmol/L 11/09/2023 5:36 PM EDT LABORATORY [facility] Glucose 104 70 - 120 mg/dL 11/09/2023 5:36 PM EDT LABORATORY [facility] Calcium 9.1 8.4 - 10.2 mg/dL 11/09/2023 5:36 PM EDT LABORATORY C Blood Venous blood specimen / Unknown Venipuncture / Unknown 11/09/2023 5:05 PM EDT 11/09/2023 5:14 PM EDT Cornelius Espino MD LAB BLOOD ORDERABLES LABORATORY [facility] [place] [address] [place] [address] * GLUCOSE METER, POINT OF CARE (11/09/2023 4:05 PM EDT) Glucose Meter 113 70 - 120 mg/dL 11/09/2023 4:17 PM EDT [employer] [facility] Blood Whole blood specimen / Unknown 11/09/2023 4:05 PM EDT 11/09/2023 4:17 PM EDT Colt Villegas MD LAB POINT OF C ARE TEST DOCKED DEVICE UNSOLICITED RESULTS Performing Organization Address [facility] Co de Phone Number [facility] [address] [place] [address] * MAGNESIUM (11/09/2023 11:07 AM EDT) Magnesium 2.1 1.5 - 2.6 mg/dL 11/09/2023 11:44 AM EDT LABORATORY [facility] [place] Blood Venous blood specimen / Unknown Venipuncture / Unknown 11/09/2023 11:07 AM EDT 11/09/2023 11:21 AM EDT Cornelius Espino MD LAB BLOOD ORDERABLES Performing Organization Address City/[facility]/ZIP Co de Phone Number LABORATORY [facility] [place] [address] [place] [address] * (ABNORMAL) GLUCOSE METER, POINT OF CARE (11/09/2023 11:00 AM EDT) Glucose Meter 167(H) 70 - 120 mg/dL 11/09/2023 12:17 PM EDT [employer] [facility] Blood Whole blood specimen / Unknown 11/09/2023 11:00 AM EDT 11/09/2023 12:17 PM EDT Colt Villegas MD LAB POINT OF C ARE TEST DOCKED DEVICE UNSOLICITED RESULTS Performing Organization Address City/[facility]/ZIP Co de Phone Number [facility] [address] [place] [address] * GLUCOSE METER, POINT OF CARE (11/09/2023 7:56 AM EDT) Glucose Meter 103 70 - 120 mg/dL 11/09/2023 8:09 AM EDT [facility] Blood Whole blood specimen / Unknown 11/09/2023 7:56 AM EDT 11/09/2023 8:09 AM EDT Colt Villegas MD LAB POINT OF C ARE TEST DOCKED DEVICE UNSOLICITED RESULTS Performing Organization Address [facility] Co de Phone Number [facility] [address] [place] [address] * MAGNESIUM (11/09/2023 4:49 AM EDT) Magnesium 2.2 1.5 - 2.6 mg/dL 11/09/2023 7:27 AM EDT LABORATORY [facility] [place] Blood Venous blood specimen / Unknown Venipuncture / Unknown 11/09/2023 4:49 AM EDT 11/09/2023 5:07 AM EDT Gina Pham MD LAB BLOOD ORDERABLES LABORATORY [facility] [address] [place] [address] * (ABNORMAL) BASIC METABOLIC PANEL (11/09/2023 4:49 AM EDT) BUN 42(H) 6 - 20 mg/dL 11/09/2023 5:39 AM EDT LABORATORY [facility] Creatinine 1.3(H) 0.5 - 1.0 mg/dL 11/09/2023 5:39 AM EDT LABORATORY GM Estimated Glomerular Filtration Rate 40(L) >=60 mL/min 11/09/2023 5:39 AM EDT LABORATORY [facility] Comment:eGFR is calculated b ased on the CKD-EPI 2020 equation Sodium 129(L) 135 - 146 mmol/L 11/09/2023 5:39 AM EDT LABORATORY [facility] Potassium 3.5 3.5 - 5.1 mmol/L 11/09/2023 5:39 AM EDT LABORATORY [facility] Chloride 88(L) 98 - 107 mmol/L 11/09/2023 5:39 AM EDT LABORATORY [facility] CO2 29 22 - 32 mmol/L 11/09/2023 5:39 AM EDT LABORATORY [facility] Anion Gap 12 7 - 15 mmol/L 11/09/2023 5:39 AM EDT LABORATORY [facility] Glucose 106 70 - 120 mg/dL 11/09/2023 5:39 AM EDT LABORATORY [facility] Calcium 8.9 8.4 - 10.2 mg/dL 11/09/2023 5:39 AM EDT LABORATORY C Blood Venous blood specimen / Unknown Venipuncture / Unknown 11/09/2023 4:49 AM EDT 11/09/2023 5:07 AM EDT Jhoan Kelley MD LAB BLOOD ORDERABL ES LABORATORY [facility] [place] [address] [place], [place] [address] * (ABNORMAL) PT INR (11/09/2023 4:49 AM EDT) Pathologist [facility] Prothrombin Time 23.5(H) 11.6 - 15.2 seconds 11/09/2023 5:33 AM EDT LABORATORY [facility] INR 2.1(H) 0.8 - 1.2 11/09/2023 5:33 AM EDT LABORATORY [facility] [place] Blood Venous blood specimen / Unknown Venipuncture / Unknown 11/09/2023 4:49 AM EDT 11/09/2023 5:07 AM EDT Narrative LABORATORY [facility] - 11/09/2023 5:33 AM EDT Warfarin Therapy INR: 2.0-3.0 conventional anticoagulation INR: 2.5-3.5 high intensity anticoagulation Sofía Thakkar DO LAB BLOOD ORDERABLES LABORATORY [facility] [address] [place] [address] * (ABNORMAL) CBC (11/09/2023 4:49 AM EDT) WBC 10.98(H) 4.00 - 10.80 K/uL 11/09/2023 5:19 AM EDT LABORATORY [facility] RBC 3.35 3.85 - 5.15 M/uL 11/09/2023 5:19 AM EDT LABORATORY [facility] HGB 9.0(L) 12.0 - 15.3 g/dL 11/09/2023 5:19 AM EDT LABORATORY [facility] HCT 29.4(L) 36.0 - 45.2 % 11/09/2023 5:19 AM EDT LABORATORY [facility] MCV 87.8 81.5 - 97.5 fL 11/09/2023 5:19 AM EDT LABORATORY [facility] MCH 26.9 27.0 - 34.0 pg 11/09/2023 5:19 AM EDT LABORATORY [facility] MCHC 30.6 32.0 - 36.0 g/dL 11/09/2023 5:19 AM EDT LABORATORY [facility] RDW 16.7 11.5 - 15.5 % 11/09/2023 5:19 AM EDT LABORATORY [facility] PLT 324 140 - 400 K/uL 11/09/2023 5:19 AM EDT LABORATORY C MPV 9.3 6.6 - 11.1 fL 11/09/2023 5:19 AM EDT LABORATORY [facility] nRBCs 0 <=0 /100 WBCs 11/09/2023 5:19 AM EDT LABORATORY [facility] Blood Venous blood specimen / Unknown Venipuncture / Unknown 11/09/2023 4:49 AM EDT 11/09/2023 5:07 AM EDT Sofía Thakkar DO LAB BLOOD ORDERABLES LABORATORY [facility] [address] [place] [address] * (ABNORMAL) GLUCOSE METER, POINT OF CARE (11/08/2023 8:53 PM EDT) Glucose Meter 160(H) 70 - 120 mg/dL 11/08/2023 9:07 PM EDT [facility] Blood Whole blood specimen / Unknown 11/08/2023 8:53 PM EDT 11/08/2023 9:07 PM EDT Colt Villegas MD LAB POINT [facility] ARE TEST DOCKED DEVICE UNSOLICITED RESULTS [facility] [address] [place] [address] * (ABNORMAL) GLUCOSE METER, POINT OF CARE (11/08/2023 4:53 PM EDT) Glucose Meter 132(H) 70 - 120 mg/dL 11/08/2023 8:04 PM EDT [employer] [facility] Blood Whole blood specimen / Unknown 11/08/2023 4:53 PM EDT 11/08/2023 8:04 PM EDT Colt Villegas MD LAB POINT [facility] ARE TEST DOCKED DEVICE UNSOLICITED RESULTS Performing Organization Address City/[facility]/ZIP Co de Phone Number [facility] [address] [place] [address] * (ABNORMAL) GLUCOSE METER, POINT OF CARE (11/08/2023 10:53 AM EDT) Glucose Meter 136(H) 70 - 120 mg/dL 11/08/2023 11:57 AM EDT [employer] [facility] Blood Whole blood specimen / Unknown 11/08/2023 10:53 AM EDT 11/08/2023 11:57 AM EDT Colt Villegas MD LAB POINT [facility] ARE TEST DOCKED DEVICE UNSOLICITED RESULTS [facility] [address] [place] [address] * NOCTURNAL OXIMETRY (INPATIENT) (11/08/2023 7:12 AM EDT) 11/08/2023 7:12 AM EDT Jhoan Kelley MD RESPIRATORY * GLUCOSE METER, POINT OF CARE (11/08/2023 7:11 AM EDT) Glucose Meter 89 70 - 120 mg/dL 11/08/2023 8:11 AM EDT [facility] Blood Whole blood specimen / Unknown 11/08/2023 7:11 AM EDT 11/08/2023 8:11 AM EDT Colt Villegas MD LAB POINT OF C ARE TEST DOCKED DEVICE UNSOLICITED RESULTS [facility] [address] [facility] [place] [id number] * (ABNORMAL) BASIC METABOLIC PANEL (11/08/2023 5:58 AM EDT) BUN 44(H) 6 - 20 mg/dL 11/08/2023 6:44 AM EDT LABORATORY [facility] Creatinine 1.4(H) 0.5 - 1.0 mg/dL 11/08/2023 6:44 AM EDT LABORATORY [facility] Estimated Glomerular Filtration Rate 36(L) >=60 mL/min 11/08/2023 6:44 AM EDT LABORATORY [facility] Comment:eGFR is calculated b ased on the CKD-EPI 2020 equation Sodium 129(L) 135 - 146 mmol/L 11/08/2023 6:44 AM EDT LABORATORY [facility] Potassium 4.0 3.5 - 5.1 mmol/L 11/08/2023 6:44 AM EDT LABORATORY [facility] Chloride 91(L) 98 - 107 mmol/L 11/08/2023 6:44 AM EDT LABORATORY [facility] CO2 25 22 - 32 mmol/L 11/08/2023 6:44 AM EDT LABORATORY [facility] Anion Gap 13 7 - 15 mmol/L 11/08/2023 6:44 AM EDT LABORATORY [facility] Glucose 102 70 - 120 mg/dL 11/08/2023 6:44 AM EDT LABORATORY C Calcium 8.5 8.4 - 10.2 mg/dL 11/08/2023 6:44 AM EDT LABORATORY C Blood Venous blood specimen / Unknown Venipuncture / Unknown 11/08/2023 5:58 AM EDT 11/08/2023 6:12 AM EDT Jhoan Kelley MD LAB BLOOD ORDERABL ES Performing Organization Address [facility] Co de Phone Number LABORATORY [facility] [place] [address] [place] [address] * (ABNORMAL) PT INR (11/08/2023 5:58 AM EDT) Prothrombin Time 23.4(H) 11.6 - 15.2 seconds 11/08/2023 6:38 AM EDT LABORATORY [facility] [facility] INR 2.1(H) 0.8 - 1.2 11/08/2023 6:38 AM EDT LABORATORY [facility] [facility] Blood Venous blood specimen / Unknown Venipuncture / Unknown 11/08/2023 5:58 AM EDT 11/08/2023 6:12 AM EDT Narrative LABORATORY C - 11/08/2023 6:38 AM EDT Warfarin Therapy INR: 2.0-3.0 conventional anticoagulation INR: 2.5-3.5 high intensity anticoagulation Sofía Thakkar DO LAB BLOOD ORDERABLES Performing Organization Address [facility] Co de Phone Number LABORATORY [facility] [address] [place] [address] * (ABNORMAL) CBC (11/08/2023 5:58 AM EDT) WBC 10.75 4.00 - 10.80 K/uL 11/08/2023 6:24 AM EDT LABORATORY [facility] [place] RBC 3.49 3.85 - 5.15 M/uL 11/08/2023 6:24 AM EDT LABORATORY [facility] [facility] HGB 9.5(L) 12.0 - 15.3 g/dL 11/08/2023 6:24 AM EDT LABORATORY [facility] HCT 30.6(L) 36.0 - 45.2 % 11/08/2023 6:24 AM EDT LABORATORY [facility] MCV 87.7 81.5 - 97.5 fL 11/08/2023 6:24 AM EDT LABORATORY [facility] MCH 27.2 27.0 - 34.0 pg 11/08/2023 6:24 AM EDT LABORATORY [facility] MCHC 31.0 32.0 - 36.0 g/dL 11/08/2023 6:24 AM EDT LABORATORY [facility] RDW 16.9 11.5 - 15.5 % 11/08/2023 6:24 AM EDT LABORATORY [facility] PLT 345 140 - 400 K/uL 11/08/2023 6:24 AM EDT LABORATORY [facility] [place] MPV 9.2 6.6 - 11.1 fL 11/08/2023 6:24 AM EDT LABORATORY [facility] nRBCs 0 <=0 /100 WBCs 11/08/2023 6:24 AM EDT LABORATORY C Blood Venous blood specimen / Unknown Venipuncture / Unknown 11/08/2023 5:58 AM EDT 11/08/2023 6:12 AM EDT Sofía Thakkar DO LAB BLOOD ORDERABLES LABORATORY [facility] [place] [address] [place] [address] * (ABNORMAL) GLUCOSE METER, POINT OF CARE (11/07/2023 8:42 PM EDT) [facility] Glucose Meter 131(H) 70 - 120 mg/dL 11/08/2023 6:51 AM EDT [email or web address] Blood Whole blood specimen / Unknown 11/07/2023 8:42 PM EDT 11/08/2023 6:51 AM EDT Colt Villegas MD LAB POINT OF C ARE TEST DOCKED DEVICE UNSOLICITED RESULTS [facility] [address] [place] [address] * (ABNORMAL) BASIC METABOLIC PANEL (11/07/2023 7:09 PM EDT) BUN 48(H) 6 - 20 mg/dL 11/07/2023 8:24 PM EDT LABORATORY C Creatinine 1.5(H) 0.5 - 1.0 mg/dL 11/07/2023 8:24 PM EDT LABORATORY [facility] [place] Estimated Glomerular Filtration Rate 35(L) >=60 mL/min 11/07/2023 8:24 PM EDT LABORATORY C Comment:eGFR is calculated b ased on the CKD-EPI 2020 equation Sodium 126(L) 135 - 146 mmol/L 11/07/2023 8:24 PM EDT LABORATORY C Potassium 4.8 3.5 - 5.1 mmol/L 11/07/2023 8:24 PM EDT LABORATORY C Chloride 91(L) 98 - 107 mmol/L 11/07/2023 8:24 PM EDT LABORATORY C CO2 23 22 - 32 mmol/L 11/07/2023 8:24 PM EDT LABORATORY C Anion Gap 12 7 - 15 mmol/L 11/07/2023 8:24 PM EDT LABORATORY [facility] [place] Glucose 141(H) 70 - 120 mg/dL 11/07/2023 8:24 PM EDT LABORATORY C Calcium 8.3(L) 8.4 - 10.2 mg/dL 11/07/2023 8:24 PM EDT LABORATORY [facility] [place] Blood Venous blood specimen / Unknown Capillary / Unknown 11/07/2023 7:09 PM EDT 11/07/2023 7:13 PM EDT Yudy Rm DO LAB BLOOD ORDERA BLES LABORATORY [facility] [place] [address] [place] [address] * GLUCOSE METER, POINT OF CARE (11/07/2023 4:32 PM EDT) Glucose Meter 106 70 - 120 mg/dL 11/07/2023 4:42 PM EDT [employer] Blood Whole blood specimen / Unknown 11/07/2023 4:32 PM EDT 11/07/2023 4:42 PM EDT Colt Villegas MD LAB POINT OF ARE TEST DOCKED DEVICE UNSOLICITED RESULTS Performing Organization Address [facility] Co de Phone Number [facility] [address] [place] [address] * (ABNORMAL) GLUCOSE METER, POINT OF CARE (11/07/2023 11:09 AM EDT) Glucose Meter 152(H) 70 - 120 mg/dL 11/07/2023 11:29 AM EDT [email or web address] [email or web address] [facility] Blood Whole blood specimen / Unknown 11/07/2023 11:09 AM EDT 11/07/2023 11:29 AM EDT Colt Villegas MD LAB POINT OF ARE TEST DOCKED DEVICE UNSOLICITED RESULTS Performing Organization Address [facility] de Phone Number [facility] [address] [place] [address] * GLUCOSE METER, POINT OF CARE (11/07/2023 7:35 AM EDT) Glucose Meter 85 70 - 120 mg/dL 11/07/2023 7:42 AM EDT [email or web address] [employer] Blood Whole blood specimen / Unknown 11/07/2023 7:35 AM EDT 11/07/2023 7:42 AM EDT Colt Villegas MD LAB POINT OF ARE TEST DOCKED DEVICE UNSOLICITED RESULTS Performing Organization Address [facility] Co de Phone Number [facility] [address] [place] [address] * (ABNORMAL) BASIC METABOLIC PANEL (11/07/2023 6:16 AM EDT) BUN 46(H) 6 - 20 mg/dL 11/07/2023 7:09 AM EDT LABORATORY [facility] Creatinine 1.4(H) 0.5 - 1.0 mg/dL 11/07/2023 7:09 AM EDT LABORATORY [facility] Estimated Glomerular Filtration Rate 37(L) >=60 mL/min 11/07/2023 7:09 AM EDT LABORATORY [facility] [place] Comment:eGFR is calculated b ased on the CKD-EPI 2020 equation Sodium 127(L) 135 - 146 mmol/L 11/07/2023 7:09 AM EDT LABORATORY [facility] [place] Potassium 4.3 3.5 - 5.1 mmol/L 11/07/2023 7:09 AM EDT LABORATORY [facility] [place] Chloride 90(L) 98 - 107 mmol/L 11/07/2023 7:09 AM EDT LABORATORY C CO2 24 22 - 32 mmol/L 11/07/2023 7:09 AM EDT LABORATORY [facility] [place] Anion Gap 13 7 - 15 mmol/L 11/07/2023 7:09 AM EDT LABORATORY [facility] [place] Glucose 96 70 - 120 mg/dL 11/07/2023 7:09 AM EDT LABORATORY [facility] [place] Calcium 8.7 8.4 - 10.2 mg/dL 11/07/2023 7:09 AM EDT LABORATORY [facility] [place] Blood Venous blood specimen / Unknown Venipuncture / Unknown 11/07/2023 6:16 AM EDT 11/07/2023 6:36 AM EDT Jhoan Kelley MD LAB BLOOD ORDERABL ES LABORATORY [facility] [place] [address] [place] [address] * (ABNORMAL) PT INR (11/07/2023 6:16 AM EDT) [facility] Prothrombin Time 25.6(H) 11.6 - 15.2 seconds 11/07/2023 7:02 AM EDT LABORATORY [facility] [place] INR 2.3(H) 0.8 - 1.2 11/07/2023 7:02 AM EDT LABORATORY [facility] [place] Blood Venous blood specimen / Unknown Venipuncture / Unknown 11/07/2023 6:16 AM EDT 11/07/2023 6:36 AM EDT Narrative LAB[facility]ATORY [facility] - 11/07/2023 7:02 AM EDT Warfarin Therapy INR: 2.0-3.0 conventional anticoagulation INR: 2.5-3.5 high intensity anticoagulation Sofía Thakkar DO LAB BLOOD ORDERABLES LAB[facility]AT[facility] [address] [place] [address] * (ABNORMAL) CBC (11/07/2023 6:16 AM EDT) WBC 11.31(H) 4.00 - 10.80 K/uL 11/07/2023 6:48 AM EDT LABORATORY [facility] RBC 3.40 3.85 - 5.15 M/uL 11/07/2023 6:48 AM EDT LABORATORY [facility] HGB 9.3(L) 12.0 - 15.3 g/dL 11/07/2023 6:48 AM EDT LAB[facility]ATORY [facility] HCT 30.4(L) 36.0 - 45.2 % 11/07/2023 6:48 AM EDT LAB[facility]ATORY [facility] MCV 89.4 81.5 - 97.5 fL 11/07/2023 6:48 AM EDT LAB[facility]ATORY [facility] MCH 27.4 27.0 - 34.0 pg 11/07/2023 6:48 AM EDT LAB[facility]ATORY [facility] MCHC 30.6 32.0 - 36.0 g/dL 11/07/2023 6:48 AM EDT LAB[facility]ATORY [facility] RDW 16.7 11.5 - 15.5 % 11/07/2023 6:48 AM EDT LAB[facility]ATORY [facility] PLT 330 140 - 400 K/uL 11/07/2023 6:48 AM EDT LAB[facility]ATORY [facility] MPV 9.5 6.6 - 11.1 fL 11/07/2023 6:48 AM EDT LAB[facility]ATORY [facility] nRBCs 0 <=0 /100 WBCs 11/07/2023 6:48 AM EDT LAB[facility]ATORY [facility] Blood Venous blood specimen / Unknown Venipuncture / Unknown 11/07/2023 6:16 AM EDT 11/07/2023 6:36 AM EDT Sofía Thakkar DO LAB BLOOD ORDERABLES LAB[facility]AT[facility] [address], [place] [id number] * (ABNORMAL) BASIC METABOLIC PANEL (11/06/2023 6:12 AM EDT) BUN 47(H) 6 - 20 mg/dL 11/06/2023 7:07 AM EDT LABORATORY [facility] [place] Creatinine 1.4(H) 0.5 - 1.0 mg/dL 11/06/2023 7:07 AM EDT LABORATORY [facility] [place] Estimated Glomerular Filtration Rate 38(L) >=60 mL/min 11/06/2023 7:07 AM EDT LABORATORY [facility] [place] Comment:eGFR is calculated b ased on the CKD-EPI 2020 equation Sodium 131(L) 135 - 146 mmol/L 11/06/2023 7:07 AM EDT LABORATORY C Potassium 4.2 3.5 - 5.1 mmol/L 11/06/2023 7:07 AM EDT LABORATORY [facility] [place] Chloride 95(L) 98 - 107 mmol/L 11/06/2023 7:07 AM EDT LABORATORY C CO2 25 22 - 32 mmol/L 11/06/2023 7:07 AM EDT LAB[facility]ATORY [facility] [place] Anion Gap 11 7 - 15 mmol/L 11/06/2023 7:07 AM EDT LABORATORY C Glucose 101 70 - 120 mg/dL 11/06/2023 7:07 AM EDT LABORATORY C Calcium 8.4 8.4 - 10.2 mg/dL 11/06/2023 7:07 AM EDT LABORATORY [facility] [place] Blood Venous blood specimen / Unknown Venipuncture / Unknown 11/06/2023 6:12 AM EDT 11/06/2023 6:35 AM EDT Librado Babin MD LAB BLOOD ORDERAB LES LAB[facility]ATORY [facility] [place] [address] [id number] * (ABNORMAL) PT INR (11/06/2023 6:12 AM EDT) Prothrombin Time 24.5(H) 11.6 - 15.2 seconds 11/06/2023 7:01 AM EDT LABORATORY [facility] [place] INR 2.2(H) 0.8 - 1.2 11/06/2023 7:01 AM EDT LAB[facility]ATORY [facility] Blood Venous blood specimen / Unknown Venipuncture / Unknown 11/06/2023 6:12 AM EDT 11/06/2023 6:35 AM EDT Narrative LABORATORY [facility] - 11/06/2023 7:01 AM EDT Warfarin Therapy INR: 2.0-3.0 conventional anticoagulation INR: 2.5-3.5 high intensity anticoagulation Sofía Thakkar DO LAB BLOOD ORDERABLES LAB[facility]ATORY [facility] [address] [place] [address] * (ABNORMAL) CBC (11/06/2023 6:12 AM EDT) WBC 10.44 4.00 - 10.80 K/uL 11/06/2023 6:48 AM EDT LAB[facility]ATORY [facility] RBC 3.33 3.85 - 5.15 M/uL 11/06/2023 6:48 AM EDT LAB[facility]ATORY [facility] HGB 9.2(L) 12.0 - 15.3 g/dL 11/06/2023 6:48 AM EDT LAB[facility]ATORY [facility] HCT 29.9(L) 36.0 - 45.2 % 11/06/2023 6:48 AM EDT LAB[facility]ATORY [facility] MCV 89.8 81.5 - 97.5 fL 11/06/2023 6:48 AM EDT LAB[facility]ATORY [facility] MCH 27.6 27.0 - 34.0 pg 11/06/2023 6:48 AM EDT LAB[facility]ATORY [facility] MCHC 30.8 32.0 - 36.0 g/dL 11/06/2023 6:48 AM EDT LAB[facility]ATORY [facility] RDW 16.6 11.5 - 15.5 % 11/06/2023 6:48 AM EDT LABORATORY [facility] PLT 324 140 - 400 K/uL 11/06/2023 6:48 AM EDT LAB[facility]ATORY [facility] MPV 9.3 6.6 - 11.1 fL 11/06/2023 6:48 AM EDT LAB[facility]ATORY [facility] nRBCs 0 <=0 /100 WBCs 11/06/2023 6:48 AM EDT LAB[facility]ATORY [facility] Blood Venous blood specimen / Unknown Venipuncture / Unknown 11/06/2023 6:12 AM EDT 11/06/2023 6:35 AM EDT Sofía Thakkar DO LAB BLOOD ORDERABLES LABORATORY [facility] [place] [address] [place] [address] * (ABNORMAL) BASIC METABOLIC PANEL (11/05/2023 5:57 PM EDT) BUN 49(H) 6 - 20 mg/dL 11/05/2023 6:42 PM EDT LAB[facility]ATORY [facility] Creatinine 1.4(H) 0.5 - 1.0 mg/dL 11/05/2023 6:42 PM EDT LABORATORY C Estimated Glomerular Filtration Rate 36(L) >=60 mL/min 11/05/2023 6:42 PM EDT LAB[facility]ATORY [facility] Comment:eGFR is calculated b ased on the CKD-EPI 2020 equation Sodium 130(L) 135 - 146 mmol/L 11/05/2023 6:42 PM EDT LAB[facility]ATORY [facility] Potassium 4.2 3.5 - 5.1 mmol/L 11/05/2023 6:42 PM EDT LAB[facility]ATORY [facility] Chloride 94(L) 98 - 107 mmol/L 11/05/2023 6:42 PM EDT LAB[facility]ATORY [facility] CO2 25 22 - 32 mmol/L 11/05/2023 6:42 PM EDT LAB[facility]ATORY [facility] Anion Gap 11 7 - 15 mmol/L 11/05/2023 6:42 PM EDT LABORATORY C Glucose 121(H) 70 - 120 mg/dL 11/05/2023 6:42 PM EDT LAB[facility]ATORY [facility] Calcium 8.3(L) 8.4 - 10.2 mg/dL 11/05/2023 6:42 PM EDT LAB[facility]ATORY [facility] [place] Blood Venous blood specimen / Unknown Venipuncture / Unknown 11/05/2023 5:57 PM EDT 11/05/2023 6:13 PM EDT Librado Babin MD LAB BLOOD ORDERAB LES LABORATORY [facility] [place] [address] [place] [address] * (ABNORMAL) BASIC METABOLIC PANEL (11/05/2023 6:26 AM EDT) BUN 50(H) 6 - 20 mg/dL 11/05/2023 7:11 AM EDT LAB[facility]ATORY [facility] Creatinine 1.5(H) 0.5 - 1.0 mg/dL 11/05/2023 7:11 AM EDT LAB[facility]ATORY [facility] Estimated Glomerular Filtration Rate 35(L) >=60 mL/min 11/05/2023 7:11 AM EDT LAB[facility]ATORY [facility] Comment:eGFR is calculated b ased on the CKD-EPI 2020 equation Sodium 130(L) 135 - 146 mmol/L 11/05/2023 7:11 AM EDT LAB[facility]ATORY [facility] Potassium 4.2 3.5 - 5.1 mmol/L 11/05/2023 7:11 AM EDT LAB[facility]ATORY [facility] Chloride 95(L) 98 - 107 mmol/L 11/05/2023 7:11 AM EDT LAB[facility]ATORY [facility] CO2 25 22 - 32 mmol/L 11/05/2023 7:11 AM EDT LAB[facility]ATORY [facility] Anion Gap 10 7 - 15 mmol/L 11/05/2023 7:11 AM EDT LAB[facility]ATORY [facility] Glucose 111 70 - 120 mg/dL 11/05/2023 7:11 AM EDT LAB[facility]ATORY [facility] Calcium 8.4 8.4 - 10.2 mg/dL 11/05/2023 7:11 AM EDT LAB[facility]ATORY [facility] Blood Venous blood specimen / Unknown Venipuncture / Unknown 11/05/2023 6:26 AM EDT 11/05/2023 6:44 AM EDT Librado Babin MD LAB BLOOD ORDERAB LES LABORATORY [facility] [place] [address] [place] [address] * LACTATE (11/05/2023 6:26 AM EDT) Lactate 1.6 0.4 - 2.0 mmol/L 11/05/2023 7:09 AM EDT LAB[facility]ATORY [facility] Blood Venous blood specimen / Unknown Venipuncture / Unknown 11/05/2023 6:26 AM EDT 11/05/2023 6:44 AM EDT Juliana Levi MD LAB BLOOD ORDE RABRAQUEL Performing Organization Address [facility] Co de Phone Number LABORATORY [facility] [place] [address] [place] [address] * (ABNORMAL) PT INR (11/05/2023 6:26 AM EDT) Prothrombin Time 27.6(H) 11.6 - 15.2 seconds 11/05/2023 7:30 AM EDT LAB[facility]ATORY [facility] INR 2.5(H) 0.8 - 1.2 11/05/2023 7:30 AM EDT LABORATORY [facility] [place] Blood Venous blood specimen / Unknown Venipuncture / Unknown 11/05/2023 6:26 AM EDT 11/05/2023 6:44 AM EDT Narrative LABORATORY [facility] - 11/05/2023 7:30 AM EDT Warfarin Therapy INR: 2.0-3.0 conventional anticoagulation INR: 2.5-3.5 high intensity anticoagulation Sofía Thakkar DO LAB BLOOD ORDERABLES Performing Organization Address [facility] Co de Phone Number LABORATORY [facility] [place] [address] [place] [address] * (ABNORMAL) CBC (11/05/2023 6:26 AM EDT) WBC 10.71 4.00 - 10.80 K/uL 11/05/2023 6:55 AM EDT LAB[facility]ATORY [facility] RBC 3.12 3.85 - 5.15 M/uL 11/05/2023 6:55 AM EDT LAB[facility]ATORY [facility] HGB 8.6(L) 12.0 - 15.3 g/dL 11/05/2023 6:55 AM EDT LABORATORY GM HCT 28.1(L) 36.0 - 45.2 % 11/05/2023 6:55 AM EDT LAB[facility]ATORY [facility] MCV 90.1 81.5 - 97.5 fL 11/05/2023 6:55 AM EDT LABORATORY [facility] [place] MCH 27.6 27.0 - 34.0 pg 11/05/2023 6:55 AM EDT LABORATORY [facility] [place] MCHC 30.6 32.0 - 36.0 g/dL 11/05/2023 6:55 AM EDT LABORATORY [facility] [place] RDW 16.8 11.5 - 15.5 % 11/05/2023 6:55 AM EDT LABORATORY [facility] [place] PLT 309 140 - 400 K/uL 11/05/2023 6:55 AM EDT LABORATORY [facility] [place] MPV 9.4 6.6 - 11.1 fL 11/05/2023 6:55 AM EDT LABORATORY C nRBCs 0 <=0 /100 WBCs 11/05/2023 6:55 AM EDT LABORATORY [facility] [place] Blood Venous blood specimen / Unknown Venipuncture / Unknown 11/05/2023 6:26 AM EDT 11/05/2023 6:44 AM EDT Sofía Thakkar DO LAB BLOOD ORDERABLES LABORATORY [facility] [place] [address] [place] [address] * LACTATE (11/05/2023 12:20 AM EDT) Lactate 1.6 0.4 - 2.0 mmol/L 11/05/2023 1:03 AM EDT LABORATORY [facility] [place] Blood Venous blood specimen / Unknown Venipuncture / Unknown 11/05/2023 12:20 AM EDT 11/05/2023 12:35 AM EDT Juliana Levi MD LAB BLOOD ORDE RABLES LABORATORY [facility] [place] [address], [place] [id number] * (ABNORMAL) BASIC METABOLIC PANEL (11/04/2023 7:41 PM EDT) BUN 51(H) 6 - 20 mg/dL 11/04/2023 8:37 PM EDT LABORATORY [facility] [place] Creatinine 1.4(H) 0.5 - 1.0 mg/dL 11/04/2023 8:37 PM EDT LAB[facility]ATORY [facility] Estimated Glomerular Filtration Rate 36(L) >=60 mL/min 11/04/2023 8:37 PM EDT LAB[facility]ATORY [facility] Comment:eGFR is calculated b ased on the CKD-EPI 2020 equation Sodium 128(L) 135 - 146 mmol/L 11/04/2023 8:37 PM EDT LAB[facility]ATORY [facility] Potassium 3.7 3.5 - 5.1 mmol/L 11/04/2023 8:37 PM EDT LAB[facility]ATORY [facility] Chloride 91(L) 98 - 107 mmol/L 11/04/2023 8:37 PM EDT LAB[facility]ATORY [facility] CO2 25 22 - 32 mmol/L 11/04/2023 8:37 PM EDT LAB[facility]ATORY [facility] Anion Gap 12 7 - 15 mmol/L 11/04/2023 8:37 PM EDT LAB[facility]ATORY [facility] Glucose 143(H) 70 - 120 mg/dL 11/04/2023 8:37 PM EDT LAB[facility]ATORY [facility] Calcium 8.3(L) 8.4 - 10.2 mg/dL 11/04/2023 8:37 PM EDT LABORATORY C Blood Venous blood specimen / Unknown Venipuncture / Unknown 11/04/2023 7:41 PM EDT 11/04/2023 7:52 PM EDT Librado Babin MD LAB BLOOD ORDERAB LES LABORATORY [facility] [place] [address] [place] [address] * (ABNORMAL) LACTATE (11/04/2023 5:25 PM EDT) Pathologist [facility] Lactate 3.0(H) 0.4 - 2.0 mmol/L 11/04/2023 5:58 PM EDT LABORATORY [facility] [place] Blood Venous blood specimen / Unknown Venipuncture / Unknown 11/04/2023 5:25 PM EDT 11/04/2023 5:32 PM EDT Juliana Levi MD LAB BLOOD ORDE YENNI LABORATORY [facility] [place] [address] [place] [address] * (ABNORMAL) LACTATE (11/04/2023 2:25 PM EDT) Pathologist [facility] Lactate 2.8(H) 0.4 - 2.0 mmol/L 11/04/2023 2:59 PM EDT LABORATORY [facility] [place] Blood Venous blood specimen / Unknown Venipuncture / Unknown 11/04/2023 2:25 PM EDT 11/04/2023 2:32 PM EDT E Juan Carlos Levi MD LAB BLOOD ORDE YENNI [facility] Organization Address City/State/ZIP Co de Phone Number LABORATORY [facility] [place] [address] [place] [address] * (ABNORMAL) BASIC METABOLIC PANEL (11/04/2023 6:29 AM EDT) [facility] BUN 51(H) 6 - 20 mg/dL 11/04/2023 9:42 AM EDT LABORATORY [facility] [place] Creatinine 1.4(H) 0.5 - 1.0 mg/dL 11/04/2023 9:42 AM EDT LABORATORY [facility] [place] Estimated Glomerular Filtration Rate 36(L) >=60 mL/min 11/04/2023 9:42 AM EDT LABORATORY C Comment:eGFR is calculated b ased on the CKD-EPI 2020 equation Sodium 132(L) 135 - 146 mmol/L 11/04/2023 9:42 AM EDT LAB[facility]ATORY [facility] Potassium 4.1 3.5 - 5.1 mmol/L 11/04/2023 9:42 AM EDT LAB[facility]ATORY [facility] Chloride 94(L) 98 - 107 mmol/L 11/04/2023 9:42 AM EDT LAB[facility]ATORY [facility] CO2 23 22 - 32 mmol/L 11/04/2023 9:42 AM EDT LABORATORY C Anion Gap 15 7 - 15 mmol/L 11/04/2023 9:42 AM EDT LABORATORY C Glucose 89 70 - 120 mg/dL 11/04/2023 9:42 AM EDT LAB[facility]ATORY [facility] Calcium 8.6 8.4 - 10.2 mg/dL 11/04/2023 9:42 AM EDT LABORATORY [facility] Blood Venous blood specimen / Unknown Venipuncture / Unknown 11/04/2023 6:29 AM EDT 11/04/2023 7:27 AM EDT Sofía Thakkar DO LAB BLOOD ORDERABLES Performing Organization Address [facility] Co de Phone Number LABORATORY [facility] [place] [address] [place] [address] * (ABNORMAL) PT INR (11/04/2023 6:29 AM EDT) Prothrombin Time 26.0(H) 11.6 - 15.2 seconds 11/04/2023 7:56 AM EDT LABORATORY [facility] INR 2.4(H) 0.8 - 1.2 11/04/2023 7:56 AM EDT LABORATORY [facility] [place] Blood Venous blood specimen / Unknown Venipuncture / Unknown 11/04/2023 6:29 AM EDT 11/04/2023 7:27 AM EDT Narrative LABORATORY [facility] - 11/04/2023 7:56 AM EDT Warfarin Therapy INR: 2.0-3.0 conventional anticoagulation INR: 2.5-3.5 high intensity anticoagulation Sofía Thakkar LAB BLOOD ORDERABLES Performing Organization Address [facility] Co de Phone Number LABORATORY [facility] [place] [address] [place] [address] * (ABNORMAL) CBC (11/04/2023 6:29 AM EDT) WBC 10.89(H) 4.00 - 10.80 K/uL 11/04/2023 7:40 AM EDT LAB[facility]ATORY [facility] RBC 3.47 3.85 - 5.15 M/uL 11/04/2023 7:40 AM EDT LABORATORY [facility] HGB 9.7(L) 12.0 - 15.3 g/dL 11/04/2023 7:40 AM EDT LABORATORY [facility] HCT 31.6(L) 36.0 - 45.2 % 11/04/2023 7:40 AM EDT LABORATORY [facility] MCV 91.1 81.5 - 97.5 fL 11/04/2023 7:40 AM EDT LABORATORY [facility] [place] MCH 28.0 27.0 - 34.0 pg 11/04/2023 7:40 AM EDT LABORATORY [facility] [place] MCHC 30.7 32.0 - 36.0 g/dL 11/04/2023 7:40 AM EDT LABORATORY [facility] [place] RDW 16.9 11.5 - 15.5 % 11/04/2023 7:40 AM EDT LABORATORY [facility] [place] PLT 333 140 - 400 K/uL 11/04/2023 7:40 AM EDT LABORATORY [facility] [place] MPV 9.6 6.6 - 11.1 fL 11/04/2023 7:40 AM EDT LABORATORY [facility] [place] nRBCs 0 <=0 /100 WBCs 11/04/2023 7:40 AM EDT LABORATORY [facility] [place] Blood Venous blood specimen / Unknown Venipuncture / Unknown 11/04/2023 6:29 AM EDT 11/04/2023 7:27 AM EDT Sofía Bijan LAB BLOOD ORDERABLES LABORATORY [facility] [place] [address] [place] [address] * (ABNORMAL) LACTATE (11/04/2023 6:29 AM EDT) Pathologist [facility] Lactate 2.7(H) 0.4 - 2.0 mmol/L 11/04/2023 7:53 AM EDT LABORATORY [facility] [place] Blood Venous blood specimen / Unknown Venipuncture / Unknown 11/04/2023 6:29 AM EDT 11/04/2023 7:27 AM EDT [employer] LAB BLOOD ORDERABLES LABORATORY [facility] [place] [address] [place] [address] * (ABNORMAL) LIPID PANEL WITHOUT DIRECT LDL (11/04/2023 6:29 AM EDT) Triglycerides 50 <=174 mg/dL 11/04/2023 7:57 AM EDT LABORATORY [facility] [place] Comment: Triglyceride Reference Ranges (mg/dL): <150 Acceptable 150-174 Borderline high 175-499 High >=500 Very high Cholesterol 49 <200 mg/dL 11/04/2023 7:57 AM EDT LABORATORY [facility] [place] Comment: Total Cholesterol Reference Ranges (mg/dL): <200 Desirable 200-239 Borderline high >=240 High HDL Cholesterol 24(L) >49 mg/dL 7:57 AM EDT LABORATORY [facility] [place] Comment: HDL Cholesterol Reference Ranges (mg/dL): >=60 High (Desirable) <50 Low (Undesirable) For Females <40 Low (Undesirable) For Males Non-HDL Cholesterol 25 <=159 mg/dL 11/04/2023 7:57 AM EDT LABORATORY [facility] [place] Comment: Non-HDL Cholesterol Reference Range (mg/dL): <100 Target level for high risk ASCVD patient <130 Optimal for general population 130-159 Near optimal for general population 160-189 Borderline High 190-219 High >=220 Very High LDL Cholesterol 15 <=129 mg/dL 11/04/2023 7:57 AM EDT LABORATORY [facility] [place] Comment: LDL Cholesterol Reference Ranges (mg/dL): <70 Target level for high risk ASCVD patient <100 Optimal for general population 100-129 Near optimal for general population 130-159 Borderline high 160-189 High >=190 Very high Blood Venous blood specimen / Unknown Venipuncture / Unknown 11/04/2023 6:29 AM EDT 11/04/2023 7:27 AM EDT Sofía Thakkar DO LAB BLOOD ORDERABLES LABORATORY [facility] [address] [place] [address] * (ABNORMAL) LACTATE (11/03/2023 9:03 PM EDT) Lactate 2.1(H) 0.4 - 2.0 mmol/L 11/03/2023 9:35 PM EDT LABORATORY [facility] [place] Blood Venous blood specimen / Unknown Venipuncture / Unknown 11/03/2023 9:03 PM EDT 11/03/2023 9:07 PM EDT Sofía Thakkar DO LAB BLOOD ORDERABLES LABORATORY [facility] [facility] [address] [place] [address] * XR CHEST 1 VIEW (11/03/2023 8:46 PM EDT) Anatomical Region Laterality Modality Chest Computed Radiogr aphy 11/03/2023 10:5 0 PM EDT Impressions 11/03/2023 11:07 PM EDT IMPRESSION 1. Findings suggest moderate CHF, increased compared to prior radiograph. Superimposed infection is difficult to entirely exclude. Could further assess with CT, if clinically indicated. 2. Probable trace bilateral pleural effusions. I have personally reviewed this examination and agree with the resident/fellow physician's interpretation. Narrative 11/03/2023 11:07 PM EDT EXAM XR CHEST 1 VIEW-11/03/2023 8:46 pm HISTORY HFrEF exacerbation, assess volume status COMPARISON Chest radiograph dated 11/01/2023 TECHNIQUE Upright AP view of the chest. FINDINGS Prominence of the pulmonary vasculature and interstitial lung markings with patchy bilateral pulmonary opacities, increased compared to prior radiograph and concerning for pulmonary edema. Probable trace bilateral pleural effusions. The cardiomediastinal silhouette is unchanged. Degenerative osseous changes. Procedure Note Jim Dixon MD - 11/03/2023 EXAM XR CHEST 1 VIEW-11/03/2023 8:46 pm HISTORY HFrEF exacerbation, assess volume status COMPARISON Chest radiograph dated 11/01/2023 TECHNIQUE Upright AP view of the chest. FINDINGS Prominence of the pulmonary vasculature and interstitial lung markingswith patchy bilateral pulmonary opacities, increased compared to priorradiograph and concerning for pulmonary edema. Probable trace bilateralpleural effusions. The cardiomediastinal silhouette is unchanged.Degenerative osseous changes. IMPRESSION IMPRESSION 1. Findings suggest moderate CHF, increased compared to prior radiograph.Superimposed infection is difficult to entirely exclude. Could furtherassess with CT, if clinically indicated. 2. Probable trace bilateral pleural effusions. I have personally reviewed this examination and agree with the resident/fellow physician's interpretation. Sofía Thakkar DO RADIOLOGY (RAD GENER AL) * EKG (11/03/2023 8:08 PM EDT) 11/03/2023 8:08 PM EDT Narrative Procedure Note Philippe Méndez MD - 11/03/2023 8:08 PM EDT REASON FOR STUDY: SOB CONCLUSIONS: Atrial fibrillation with a competing junctional pacemaker Cannot rule out Anterior infarct , age undetermined Marked ST abnormality, possible lateral subendocardial injury Abnormal ECG When compared with ECG of 01-Nov-2023 13:06, No significant change was found Ventricular Rate: 78 Atrial Rate: 87 QRS Duration: 106 QT/QTc: 410/467 ms P-R-T [place]: 0 : -24 : 149 degrees Sofía Thakkar DO EKG [facility] * (ABNORMAL) CBC (11/03/2023 7:22 PM EDT) WBC 9.84 4.00 - 10.80 K/uL 11/03/2023 7:42 PM EDT [facility] RBC 3.55 3.85 - 5.15 M/uL 11/03/2023 7:42 PM EDT [facility] HGB 9.8(L) 12.0 - 15.3 g/dL 11/03/2023 7:42 PM EDT [facility] HCT 31.6(L) 36.0 - 45.2 % 11/03/2023 7:42 PM EDT [facility] MCV 89.0 81.5 - 97.5 fL 11/03/2023 7:42 PM EDT [facility] MCH 27.6 27.0 - 34.0 pg 11/03/2023 7:42 PM EDT [facility] MCHC 31.0 32.0 - 36.0 g/dL 11/03/2023 7:42 PM EDT [facility] RDW 16.7 11.5 - 15.5 % 11/03/2023 7:42 PM EDT [facility] PLT 331 140 - 400 K/uL 11/03/2023 7:42 PM EDT [facility] MPV 9.6 6.6 - 11.1 fL 11/03/2023 7:42 PM EDT [facility] [place] [facility] [place] nRBCs 0 <=0 /100 WBCs 11/03/2023 7:42 PM EDT [facility] [place] Blood Venous blood specimen / Unknown Venipuncture / Unknown 11/03/2023 7:22 PM EDT 11/03/2023 7:25 PM EDT Sofía Thakkar [employer] LAB BLOOD ORDERABLES Performing Organization Address [facility]/ZIP Co de Phone Number LABORATORY [facility] [place] [address] [place] [address] * T4, FREE (11/03/2023 7:21 PM EDT) T4, Free 1.3 0.9 - 1.7 ng/dL 11/03/2023 9:20 PM EDT [facility] [place] Blood Venous blood specimen / Unknown Venipuncture / Unknown 11/03/2023 7:21 PM EDT 11/03/2023 7:25 PM EDT Sofía Thakkar [employer] LAB BLOOD ORDERABLES Performing Organization Address [facility] de Phone Number LABORATORY [facility] [place] [address] [place] [address] * (ABNORMAL) TSH WITH FREE T4 IF INDICATED (11/03/2023 7:21 PM EDT) TSH 12.00(H) 0.27 - 4.20 uIU/mL 11/03/2023 8:58 PM EDT LABORATORY [facility] [place] Blood Venous blood specimen / Unknown Venipuncture / Unknown 11/03/2023 7:21 PM EDT 11/03/2023 7:25 PM EDT Sofía Thakkar [employer] LAB BLOOD ORDERABLES Performing Organization Address City/[facility]/[employer] [employer] [facility] Co de Phone Number LABORATORY [facility] [place] [address] [place] [address] * MAGNESIUM (11/03/2023 7:21 PM EDT) Magnesium 2.4 1.5 - 2.6 mg/dL 11/03/2023 7:53 PM EDT LABORATORY [facility] [place] Blood Venous blood specimen / Unknown Venipuncture / Unknown 11/03/2023 7:21 PM EDT 11/03/2023 7:25 PM EDT Sofía Thakkar LAB BLOOD ORDERABLES LABORATORY [facility] [place] [address] [place] [address] * (ABNORMAL) COMPREHENSIVE METABOLIC PANEL (11/03/2023 7:21 PM EDT) BUN 49(H) 6 - 20 mg/dL 11/03/2023 7:53 PM EDT [facility]ORY [facility] Creatinine 1.4(H) 0.5 - 1.0 mg/dL 11/03/2023 7:53 PM EDT LAB[facility] Estimated Glomerular Filtration Rate 36(L) >=60 mL/min 11/03/2023 7:53 PM EDT LAB[facility]ATORY [facility] Comment:eGFR is calculated b ased on the CKD-EPI 2020 equation Sodium 132(L) 135 - 146 mmol/L 11/03/2023 7:53 PM EDT [facility] Potassium 4.2 3.5 - 5.1 mmol/L 11/03/2023 7:53 PM EDT LAB[facility] Chloride 93(L) 98 - 107 mmol/L 11/03/2023 7:53 PM EDT [facility] CO2 26 22 - 32 mmol/L 11/03/2023 7:53 PM EDT [facility] Anion Gap 13 7 - 15 mmol/L 11/03/2023 7:53 PM EDT [facility] Glucose 118 70 - 120 mg/dL 11/03/2023 7:53 PM EDT [facility] Albumin 3.4(L) 3.8 - 5.0 g/dL 11/03/2023 7:53 PM EDT [facility] AST 46(H) 10 - 35 U/L 11/03/2023 7:53 PM EDT LAB[facility] Alkaline Phosphatase 170(H) 35 - 130 U/L 11/03/2023 7:53 PM EDT LAB[facility]ATORY [facility] Bilirubin, Total 1.8(H) <=1.2 mg/dL 11/03/2023 7:53 PM EDT LAB[facility] Calcium 8.7 8.4 - 10.2 mg/dL 11/03/2023 7:53 PM EDT LAB[facility]AT[facility] Protein 7.2 6.0 - 8.3 g/dL 11/03/2023 7:53 PM EDT LABORATORY C ALT 27 10 - 35 U/L 11/03/2023 7:53 PM EDT LABORATORY C Blood Venous blood specimen / Unknown Venipuncture / Unknown 11/03/2023 7:21 PM EDT 11/03/2023 7:25 PM EDT Sofía Bijan DO LAB BLOOD ORDERABLES LABORATORY [facility] [place] [address] [place] [address] * (ABNORMAL) PT INR (11/03/2023 7:21 PM EDT) [facility] Prothrombin Time 23.1(H) 11.6 - 15.2 seconds 11/03/2023 7:47 PM EDT LAB[facility]ATORY [facility] INR 2.0(H) 0.8 - 1.2 11/03/2023 7:47 PM EDT LABORATORY [facility] [place] Blood Venous blood specimen / Unknown Venipuncture / Unknown 11/03/2023 7:21 PM EDT 11/03/2023 7:25 PM EDT Narrative LABORATORY [facility] - 11/03/2023 7:47 PM EDT Warfarin Therapy INR: 2.0-3.0 conventional anticoagulation INR: 2.5-3.5 high intensity anticoagulation Sofía Bijan DO LAB BLOOD ORDERABLES LABORATORY [facility] [place] [address] [place] [address] documented in this encounter Visit Diagnoses Diagnosis 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)- Primary Acute exacerbation of CHF (congestive heart failure) (HCC) Congestive heart failure, unspecified Chest pain Chest pain, unspecified SOB (shortness of breath) Shortness of breath Pulmonary HTN (HCC) Other chronic pulmonary heart diseases Ascending aortic aneurysm (HCC) Thoracic aneurysm without mention of rupture Acute on chronic respiratory failure with hypoxia (HCC) New onset atrial fibrillation (HCC) Atrial fibrillation Pulmonary HTN (HCC) Other chronic pulmonary heart diseases Essential hypertension with goal blood pressure less than 140/90 Coronary artery disease involving [place] coronary artery of [place] heart without angina pectoris Chronic atrial fibrillation (HCC) Atrial fibrillation Graves disease Toxic diffuse goiter without mention of thyrotoxic crisis or storm CKD (chronic kidney disease) stage 3, GFR 30-59 ml/min (HCC) Chronic kidney disease, Stage III (moderate) 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 Anemia in chronic kidney disease Nonrheumatic tricuspid valve regurgitation Tricuspid valve disorders, specified as nonrheumatic documented in this encounter Administered Medications Inactive Administered Medications - up to 3 most recent administrations Medication Order MAR Action Action Date Dose Rate Site Acetaminophen (Tylenol) tab 325 mg 325 mg, Oral, ONCE, On 11/12/23 at 0200, For 1 dose, Maximum of 4 grams (4000 mg) per day. Given 11/12/2023 1:36 AM EDT 325 mg Acetaminophen (Tylenol) tab 650 mg 650 mg, Oral, Q6H PRN Pain, Mild, Headache, Fever >38C(100.5F), Starting on Priti 11/09/23 at 1046, Until Mon11/12/23 at 1107, Maximum of 4 grams (4000 mg) per day. Given 11/12/2023 4:47 AM EDT 650 mg Given 11/11/2023 10:10 PM EDT 650 mg Given 11/11/2023 4:38 PM EDT 650 mg Acetaminophen (Tylenol) tab 650 mg 650 mg, Oral, Q6H, First dose (after last modification) on Mon11/12/23 at 1200, Until Discontinued, Maximum of 4 grams (4000 mg) per day. Given 11/14/2023 11:22 AM EDT 650 mg Given 11/14/2023 5:26 AM EDT 650 mg Given 11/13/2023 11:23 PM EDT 650 mg Apixaban (Eliquis) tab 2.5 mg 2.5 mg, Oral, BID (.AM/PM), First dose on Mon11/03/23 at 2100, Until Discontinued Given 11/14/2023 8:10 AM EDT 2.5 mg Given 11/13/2023 8:58 PM EDT 2.5 mg Given 11/13/2023 8:22 AM EDT 2.5 mg aspirin chew tab 81 mg 81 mg, Oral, Daily(AM), First dose on Mon11/04/23 at 0900, Until Discontinued Given 11/14/2023 8:10 AM EDT 81 mg Given 11/13/2023 8:22 AM EDT 81 mg Given 11/12/2023 10:02 AM EDT 81 mg atorvaSTATin (Lipitor) tab 20 mg 20 mg, Oral, QPM-1999, First dose on Mon11/03/23 at 2100, Until Discontinued Given 11/13/2023 8:59 PM EDT 20 mg Given 11/12/2023 7:56 PM EDT 20 mg Given 11/11/2023 10:09 PM EDT 20 mg calcium CARBonate (Tums E-X) tab CHEW 750 mg 750 mg, Oral, BID (NOON, 1700), First dose on Mon11/13/23 at 1200, Until Discontinued Given 11/14/2023 11:22 AM E DT 750 mg Given 11/13/2023 5:15 PM EDT 750 mg Given 11/13/2023 12:28 PM EDT 750 mg cholecalciferol (VIT D3) (Vitamin D3) tab 1,000 Units 1,000 Units, Oral, Daily(AM), First dose on Mon11/13/23 at 0900, Until Discontinued, NOTE: 1000 units = 25 mcg Given 11/14/2023 8:10 AM E DT 1,000 Units Given 11/13/2023 8:23 AM EDT 1,000 Units CYANOCOBALAMIN (vitamin B-12) tab 1,000 mcg 1,000 mcg, Oral, Daily(AM), First dose on Mon11/13/23 at 0900, Until Discontinued Given 11/14/2023 8:10 AM EDT 1,00 0 mcg Given 11/13/2023 8:23 AM EDT 1,000 mcg dorzolamide-timolol (Cosopt Ocumeter Plus) ophthalmic solution 1 Drop 1 Drop, Both eyes, BID (.AM/PM), First dose on Mon11/13/23 at 2100, Until Discontinued Given 11/14/2023 8:11 AM EDT 1 Drop Given 11/13/2023 8:59 PM EDT 1 Drop Empagliflozin (Jardiance) tab 10 mg 10 mg, Oral, Daily(AM), First dose on Mon11/10/23 at 1300, Until Discontinued Given 11/13/2023 8:23 AM EDT 10 mg Given 11/12/2023 10:07 AM EDT 10 mg Given 11/11/2023 8:11 AM EDT 10 mg Empagliflozin (Jardiance) tab 10 mg 10 mg, Oral, Daily(AM), First dose (after last modification) on Mon11/14/23 at 0900, Until Discontinued Given 11/14/2023 8:11 AM EDT 10 mg fluticasone furoate-vilanterol (BREO ellipta) 100-25 MCG/ACT inhaler 1 Puff 1 Puff, Inhalation, Daily(AM), First dose on Mon11/04/23 at 0900, Until Discontinued, NURSING TO FOLLOW PATIENT WITH MDI/DPI ADMINISTRATION Given 11/14/2023 8:12 AM EDT 1 Puff Given 11/13/2023 8:24 AM EDT 1 Puff Given 11/12/2023 10:02 AM EDT 1 Puff Furosemide (Lasix) 500 mg in NSS (5 mg/mL) infusion 100 mL 20 mg/hr (4 mL/hr), Intravenous, CONTINUOUS, Starting on Mon11/07/23 at 1130, Until Mon11/11/23 at 1029, Please select this medication from the infusion pump library! Protect from Light!! Rate Verify 11/11/2023 3:31 AM EDT 20 mg/hr 4 mL/hr Rate Verify 11/10/2023 11:15 PM EDT 20 mg/hr 4 mL/hr Rate Verify 11/10/2023 7:30 PM EDT 20 mg/hr 4 mL/hr Furosemide (Lasix) inj 100 mg 100 mg, IV Push, BID (0900, 1600), First dose (after last modification) on Mon11/08/23 at 1015, Until Discontinued Given 11/10/2023 8:03 AM EDT 100 mg Given 11/09/2023 5:31 PM EDT 100 mg Given 11/09/2023 8:24 AM EDT 100 mg Furosemide (Lasix) inj 40 mg 40 mg, IV Push, ONCE, On Mon11/07/23 at 1830, For 1 dose Given 11/07/2023 6:55 PM EDT 40 mg Furosemide (Lasix) inj 80 mg 80 mg, IV Push, ONCE, On Mon11/03/23 at 2115, For 1 dose Given 11/03/2023 9:38 PM EDT 80 mg Furosemide (Lasix) inj 80 mg 80 mg, IV Push, BID (0900, 1600), First dose on Mon11/04/23 at 0900, Until Discontinued Given 11/07/2023 5:29 PM EDT 80 mg Given 11/07/2023 9:01 AM EDT 80 mg Given 11/06/2023 4:24 PM EDT 80 mg Iron Sucrose (Venofer) 200 mg in NSS 100 mL ivpb 200 mg, IV Piggyback, Daily(AM), 3 doses, First dose on Mon11/13/23 at 1300, Last dose on Mon11/15/23 at 0900, Administer over 60 Minutes New Bag 11/14/2023 8:18 AM EDT 200 mg 110 mL/hr New Bag 11/13/2023 1:37 PM EDT 200 mg 110 mL/hr Latanoprost (Xalatan) 0.005 % ophthalmic solution 1 Drop 1 Drop, Both eyes, HS, First dose on Mon11/13/23 at 2200, Until Discontinued Given 11/13/2023 9:06 PM EDT 1 Drop Lidocaine (Aspercreme) 4 % patch 1 Patch 1 Patch, Transdermal, ONCE, On Mon11/12/23 at 0615, For 1 dose, Apply patch for 12 hours then remove for 12 hours! Remove any Lidocaine patches the patient may currently be wearing prior to applying the new patch Patch Applied 11/12/2023 5:48 AM EDT 1 Patch Other-Specify Methimazole (Tapazole) tab 2.5 mg 2.5 mg, Oral, [id number], First dose on Mon11/04/23 at 0900, Until Discontinued Given 11/14/2023 11:22 AM EDT 2.5 mg Given 11/13/2023 8:23 AM EDT 2.5 mg Given 11/11/2023 8:11 AM EDT 2.5 mg metOLazone (Zaroxolyn) tab 5 mg 5 mg, Oral, ONCE, On Mon11/08/23 at 1630, For 1 dose Given 11/08/2023 4:53 PM EDT 5 mg metOLazone (Zaroxolyn) tab 5 mg 5 mg, Oral, [id number], First dose (after last reorder) on Mon11/09/23 at 1600, Until Discontinued Given 11/10/2023 3:35 PM EDT 5 mg Given 11/09/2023 5:31 PM EDT 5 mg midodrine (Proamatine) tab 5 mg 5 mg, Oral, TID(AM/NOON/HS), First dose on Mon11/03/23 at 2200, Until Discontinued Given 11/12/2023 4:47 AM EDT 5 mg Given 11/11/2023 10:09 PM EDT 5 mg Given 11/11/2023 11:31 AM EDT 5 mg oxygen GAS Inhalation, OXYGEN, First dose on Mon11/04/23 at 0000, Until Discontinued, Device/Managed by: Low Flow Device, Goal SPO2 (%): 91-95, Starting Device: Nasal Cannula, Initial Flow Rate (LPM): 3, Lowest Support: Nasal Cannula: Flow 0-6 LPM. Titrate up/down by 1 LPM., Titration Interval: Q2 minutes and as needed., Notify Provider: For sudden DECREASE in resting SPO2 to less than 85% and when escalating delivery device., Wean patient off Oxygen when the oxygen saturation is greater than or equal to 93% Oxygen On 11/14/2023 8:00 AM EDT Oxygen On 11/14/2023 12:00 AM EDT Oxygen On 11/13/2023 4:00 PM EDT Polyethylene Glycol 3350 (Miralax) oral powder 17 g 17 g (1 Packet), Oral, Daily(AM), First dose on Mon11/08/23 at 0900, Until Discontinued, Mix in 8 oz of water, juice, soda, coffee, or tea. Given 11/14/2023 8:11 AM EDT 17 g Given 11/13/2023 8:22 AM EDT 17 g Given 11/12/2023 10:01 AM EDT 17 g Polyethylene Glycol 3350 (Miralax) oral powder 17 g 17 g (1 Packet), Oral, ONCE, On Mon11/07/23 at 1445, For 1 dose, Mix in 8 oz of water, juice, soda, coffee, or tea. Given 11/07/2023 3:36 PM EDT 17 g potassium chloride ER tab 20 mEq 20 mEq, Oral, Daily(AM), First dose on 11/04/23 at 1130, Until Discontinued, This med should NOT be Crushed or Chewed Given 11/14/2023 8:10 AM EDT 20 mEq Given 11/13/2023 8:22 AM EDT 20 mEq Given 11/12/2023 10:01 AM EDT 20 mEq potassium chloride ER tab 20 mEq 20 mEq, Oral, ONCE, On Priti 11/09/23 at 1830, For 1 dose, This med should NOT be Crushed or Chewed Given 11/09/2023 6:01 PM EDT 20 mEq potassium chloride ER tab 30 mEq 30 mEq, Oral, ONCE, On [facility] 11/04/23 at 2130, For 1 dose, This med should NOT be Crushed or Chewed Given 11/04/2023 9:30 PM EDT 30 mEq potassium chloride ER tab 40 mEq 40 mEq, Oral, ONCE, On Priti 11/09/23 at 0715, For 1 dose, This med should NOT be Crushed or Chewed Given 11/09/2023 6:44 AM EDT 40 mEq potassium chloride ER tab 40 mEq 40 mEq, Oral, ONCE, On Priti 11/09/23 at 1115, For 1 dose, This med should NOT be Crushed or Chewed Given 11/09/2023 12:14 PM EDT 40 mEq potassium chloride ER tab 40 mEq 40 mEq, Oral, ONCE, On Mon11/10/23 at 0715, For 1 dose, This med should NOT be Crushed or Chewed Given 11/10/2023 6:37 AM EDT 40 mEq potassium chloride ER tab 40 mEq 40 mEq, Oral, Q4H, First dose (after last reorder) on Mon11/10/23 at 1100, Last dose on Mon11/10/23 at 1600, For 2 doses, This med should NOT be Crushed or Chewed Given 11/10/2023 3:35 PM EDT 40 mEq Given 11/10/2023 11:29 AM EDT 40 mEq potassium chloride ER tab 40 mEq 40 mEq, Oral, ONCE, On [facility] 11/11/23 at 0830, For 1 dose, This med should NOT be Crushed or Chewed Given 11/11/2023 8:10 AM EDT 40 mEq potassium chloride ER tab 40 mEq 40 mEq, Oral, ONCE, On Mon11/12/23 at 0445, For 1 dose, This med should NOT be Crushed or Chewed Given 11/12/2023 4:46 AM EDT 40 mEq potassium chloride ER tab 40 mEq 40 mEq, Oral, ONCE, On Mon11/13/23 at 0715, For 1 dose, This med should NOT be Crushed or Chewed Given 11/13/2023 7:07 AM EDT 40 mEq potassium chloride ER tab 40 mEq 40 mEq, Oral, Q4H, First dose on Mon11/14/23 at 1200, Last dose on Mon11/14/23 at 1600, For 2 doses, This med should NOT be Crushed or Chewed Given 11/14/2023 11:22 AM EDT 40 mEq rOPINIRole (Requip) tab 0.5 mg 0.5 mg, Oral, QHS, First dose on Mon11/10/23 at 2200, Until Discontinued Given 11/11/2023 10:09 PM EDT 0.5 mg Given 11/10/2023 10:16 PM EDT 0.5 mg rOPINIRole (Requip) tab 1 mg 1 mg, Oral, QHS, First dose (after last modification) on Mon11/12/23 at 2200, Until Discontinued Given 11/13/2023 9:01 PM EDT 1 mg Given 11/12/2023 9:28 PM EDT 1 mg Saline ([place]) nasal spray 1 [place], Nasal, Q2H PRN Congestion, Starting on Mon11/06/23 at 1603, Until Mon11/14/23 at 1957 Given 11/07/2023 1:52 AM EDT 1 [place] Given 11/06/2023 6:17 PM EDT 1 [place] senna-docusate (Senokot-S) 1 Tablet 1 Tablet, Oral, Daily(AM), First dose on Mon11/08/23 at 0900, Until Discontinued Given 11/14/2023 8:10 AM EDT 1 [place] b[place] Given 11/13/2023 8:23 AM EDT 1 Tablet Given 11/12/2023 10:01 AM EDT 1 Tablet senna-docusate (Senokot-S) 1 Tablet 1 Tablet, Oral, ONCE, On Mon11/07/23 at 1445, For 1 dose Given 11/07/2023 3:36 PM EDT 1 Tablet Spironolactone (Aldactone) tab 12.5 mg 12.5 mg, Oral, Daily(AM), First dose on Mon11/07/23 at 0900, Until Discontinued Given 11/10/2023 8:04 AM EDT 12.5 mg Given 11/09/2023 8:23 AM EDT 12.5 mg Given 11/08/2023 10:03 AM EDT 12.5 mg Spironolactone (Aldactone) tab 12.5 mg 12.5 mg, Oral, ONCE, On Mon11/10/23 at 1300, For 1 dose Given 11/10/2023 1:00 PM EDT 12.5 mg Spironolactone (Aldactone) tab 25 mg 25 mg, Oral, Daily(AM), First dose (after last modification) on Mon11/11/23 at 0900, Until Discontinued Given 11/11/2023 8:10 AM EDT 25 mg Spironolactone (Aldactone) tab 50 mg 50 mg, Oral, Daily(AM), First dose (after last modification) on Mon11/12/23 at 0930, Until Discontinued Given 11/14/2023 8:10 AM EDT 50 mg Given 11/13/2023 8:22 AM EDT 50 mg Given 11/12/2023 10:01 AM EDT 50 mg Torsemide (Demadex) tab 40 mg 40 mg, Oral, BID (0900, 1600), First dose (after last modification) on Mon11/13/23 at 1600, Until Discontinued Given 11/14/2023 8:10 AM EDT 40 mg Given 11/13/2023 5:12 PM EDT 40 mg Torsemide (Demadex) tab 80 mg 80 mg, Oral, BID (0900, 1600), First dose on Mon11/11/23 at 1045, Until Discontinued Given 11/13/2023 8:23 AM EDT 80 m g Given 11/12/2023 5:17 PM EDT 80 mg Given 11/12/2023 10:02 AM EDT 80 mg umeclidinium Gates (INCRUSE ellipta) 62.5 MCG/ACT inhaler 1 Puff 1 Puff, Inhalation, RESPDAILY, First dose on Mon11/13/23 at 0800, Until Discontinued, NURSING TO FOLLOW PATIENT WITH MDI/DPI ADMINISTRATION Given 11/14/2023 8:12 AM EDT 1 Puff Given 11/13/2023 8:23 AM EDT 1 Puff Urea (Ure-Na) powder packet 15 g 15 g, Oral, BID (.AM/PM), First dose on Mon11/13/23 at 1300, Until Discontinued Given 11/14/2023 8:11 AM EDT 15 g Given 11/13/2023 8:59 PM EDT 15 g Given 11/13/2023 1:00 PM EDT 15 g Vitamin C (Ascorbic Acid) tab 500 mg 500 mg, Oral, Daily(AM), First dose on Mon11/13/23 at 0900, Until Discontinued Given 11/14/2023 8:10 AM EDT 500 mg Given 11/13/2023 8:22 AM EDT 500 mg Vitamin E (Aquasol E) cap 400 Units 400 Units, Oral, Daily(AM), First dose on Mon11/13/23 at 0900, Until Discontinued Given 11/14/2023 8:11 AM EDT 400 Units Given 11/13/2023 8:22 AM EDT 400 Units documented in this encounter Active and Recently Administered Medications Times are shown in EDT. Scheduled Medication Order 11/12/2023 11/13/2023 11/14/2023 Acetaminophen (Tylenol) tab 325 mg (COMPLETED) 325 mg, Oral, ONCE, On 11/12/23 at 0200, For 1 dose, Maximum of 4 grams (4000 mg) per day. 0136 (Given - Provider: Maribell Mane RN) Acetaminophen (Tylenol) tab 650 mg 650 mg, Oral, Q6H, First dose (after last modification) on Mon11/12/23 at 1200, Until Discontinued, Maximum of 4 grams (4000 mg) per day. 1239 (Given - Provider: Vicki Buck RN)1717 (Given - Provider: Dana Ortiz RN)5034 (Given - Provider: April Stuart RN) 0534 (Given - Provider: April Stuart, MARTHA)1228 (Given - Provider: Yulissa Collins, MARTHA)1758 (Given - Provider: Sabrina Lobo, RN)2323 (Given - Provider: Aziza Mckeon, MARTHA) 0526 (Given - Provider: Aziza Mckeon, MARTHA)112 (Given - Provider: Marita Gasca, MARTHA) Apixaban (Eliquis) tab 2.5 mg 2.5 mg, Oral, BID (.AM/PM), First dose on Mon11/03/23 at 2100, Until Discontinued 1001 (Given - Provider: Clint Sanchez, MARTHA)2127 (Given - Provider: Vicki Buck RN) 0822 (Given - Provider: Yulissa Collins RN)2057 (Given - Provider: Aziza Mckeon, MARTHA) 0810 (Given - Provider: Marita Gasca, MARTHA) aspirin chew tab 81 mg 81 mg, Oral, Daily(AM), First dose on Mon11/04/23 at 0900, Until Discontinued 1002 (Given - Provider: Clint Sanchez RN) 0822 (Given - Provider: Yulissa Collins RN) 0810 (Given - Provider: Marita Gasca, MARTHA) atorvaSTATin (Lipitor) tab 20 mg 20 mg, Oral, QPM-1999, First dose on Mon11/03/23 at 2100, Until Discontinued 195 (Given - Provider: Vicki Buck RN) 2058 (Given - Provider: Aziza Mckeon RN) calcium CARBonate (Tums E-X) tab CHEW 750 mg (CANCELED) 750 mg, Oral, BID (NOON, 1700), First dose on Mon11/13/23 at 1200, Until Discontinued 1228 (Given - Provider: Yulissa Collins RN)171 (Given - Provider: Sabrina Lobo, MARTHA) 112 (Given - Provider: Marita Gasca, MARTHA) cholecalciferol (VIT D3) (Vitamin D3) tab 1,000 Units 1,000 Units, Oral, Daily(AM), First dose on Mon11/13/23 at 0900, Until Discontinued, NOTE: 1000 units = 25 mcg 822 (Given - Provider: Yulissa Collins, MARTHA) 08 (Given - Provider: Marita Gasca, MARTHA) CYANOCOBALAMIN (vitamin B-12) tab 1,000 mcg 1,000 mcg, Oral, Daily(AM), First dose on Mon11/13/23 at 0900, Until Discontinued 822 (Given - Provider: Yulissa Collins RN) 08 (Given - Provider: Marita Gasca, MARTHA) dorzolamide-timolol (Cosopt Ocumeter Plus) ophthalmic solution 1 Drop 1 Drop, Both eyes, BID (.AM/PM), First dose on Mon11/13/23 at 2100, Until Discontinued 2058 (Given - Provider: Aziza Mckeon RN) 810 (Given - Provider: Marita Gasca, MARTHA) Empagliflozin (Jardiance) tab 10 mg (CANCELED) 10 mg, Oral, Daily(AM), First dose on Mon11/10/23 at 1300, Until Discontinued 1006 (Given - Provider: Clint Sanchez RN) 822 (Given - Provider: Yulissa Collins RN) Empagliflozin (Jardiance) tab 10 mg 10 mg, Oral, Daily(AM), First dose (after last modification) on Mon11/14/23 at 0900, Until Discontinued 810 (Given - Provider: Marita Gasca, MARTHA) fluticasone furoate-vilanterol (BREO ellipta) 100-25 MCG/ACT inhaler 1 Puff 1 Puff, Inhalation, Daily(AM), First dose on Mon11/04/23 at 0900, Until Discontinued, NURSING TO FOLLOW PATIENT WITH MDI/DPI ADMINISTRATION 1002 (Given - Provider: Clint Sanchez RN) 08 (Given - Provider: Yulissa Collins, MARTHA) 08 (Given - Provider: Marita Gasca, MARTHA) Iron Sucrose (Venofer) 200 mg in NSS 100 mL ivpb 200 mg, IV Piggyback, Daily(AM), 3 doses, First dose on Mon11/13/23 at 1300, Last dose on Mon11/15/23 at 0900, Administer over 60 Minutes 1337 (New Bag - Provider: Yesenia Bell, RN) 0818 (New Bag - Provider: Marita Gasca, MARTHA)195 (Due: Stopped) Latanoprost (Xalatan) 0.005 % ophthalmic solution 1 Drop 1 Drop, Both eyes, HS, First dose on 11/13/23 at 2200, Until Discontinued 2105 (Given - Provider: Aziza Mckeon RN) Lidocaine (Aspercreme) 4 % patch 1 Patch (COMPLETED) 1 Patch, Transdermal, ONCE, On 11/12/23 at 0615, For 1 dose, Apply patch for 12 hours then remove for 12 hours! Remove any Lidocaine patches the patient may currently be wearing prior to applying the new patch 0548 (Patch Applied - Provider: Maribell Mane RN - Comment: patch cut in half; one half on R ankle, other on L calf)1748 (Patch Removed - Provider: Dana Ortiz RN) Methimazole (Tapazole) tab 2.5 mg 2.5 mg, Oral, MTWTFSA, First dose on 11/04/23 at 0900, Until Discontinued 08 (Given - Provider: Yulissa Collins, MARTHA) 112 (Given - Provider: Marita Gasca, MARTHA - Comment: pharmc and technical \\diff) midodrine (Proamatine) tab 5 mg (CANCELED) 5 mg, Oral, TID(AM/NOON/HS), First dose on Mon11/03/23 at 2200, Until Discontinued 446 (Given - Provider: Maribell Mane RN) oxygen GAS Inhalation, OXYGEN, First dose on 11/04/23 at 0000, Until Discontinued, Device/Managed by: Low Flow Device, Goal SPO2 (%): 91-95, Starting Device: Nasal Cannula, Initial Flow Rate (LPM): 3, Lowest Support: Nasal Cannula: Flow 0-6 LPM. Titrate up/down by 1 LPM., Titration Interval: Q2 minutes and as needed., Notify Provider: For sudden DECREASE in resting SPO2 to less than 85% and when escalating delivery device., Wean patient off Oxygen when the oxygen saturation is greater than or equal to 93% 0000 (Oxygen On - Provider: Maribell Mane, RN)0800 (Oxygen On - Provider: Clint Sanchez, MARTHA)1600 (Oxygen On - Provider: Dana Ortiz RN) 0000 (Oxygen On - Provider: April Stuart, RN)0800 (Oxygen On - Provider: Yulissa Collins, MARTHA)1600 (Oxygen On - Provider: Sabrina Lobo, MARTHA) 0000 (Oxygen On - Provider: Aziza Mckeon, MARTHA)0800 (Oxygen On - Provider: Marita Gasca, MARTHA) Polyethylene Glycol 3350 (Miralax) oral powder 17 g 17 g (1 Packet), Oral, Daily(AM), First dose on Mon11/08/23 at 0900, Until Discontinued, Mix in 8 oz of water, juice, soda, coffee, or tea. 1001 (Given - Provider: Clint Sanchez RN) 0822 (Given - Provider: Yulissa Collins RN) 0811 (Given - Provider: Marita Gasca, MARTHA) potassium chloride ER tab 20 mEq 20 mEq, Oral, Daily(AM), First dose on Mon11/04/23 at 1130, Until Discontinued, This med should NOT be Crushed or Chewed 1001 (Given - Provider: Clint Sanchez RN) 0822 (Given - Provider: Yulissa Collins, MARTHA) 0810 (Given - Provider: Marita Gasca, MARTHA) potassium chloride ER tab 40 mEq (COMPLETED) 40 mEq, Oral, ONCE, On Mon11/12/23 at 0445, For 1 dose, This med should NOT be Crushed or Chewed 0446 (Given - Provider: Maribell Mane, MARTHA) potassium chloride ER tab 40 mEq (COMPLETED) 40 mEq, Oral, ONCE, On Mon11/13/23 at 0715, For 1 dose, This med should NOT be Crushed or Chewed 0707 (Given - Provider: April Stuart, MARTHA) potassium chloride ER tab 40 mEq 40 mEq, Oral, Q4H, First dose on Mon11/14/23 at 1200, Last dose on Mon11/14/23 at 1600, For 2 doses, This med should NOT be Crushed or Chewed 1122 (Given - Provider: Marita Gasca, MARTHA) rOPINIRole (Requip) tab 1 mg 1 mg, Oral, QHS, First dose (after last modification) on Mon11/12/23 at 2200, Until Discontinued 2127 (Given - Provider: Vicki Buck, MARTHA) 2100 (Given - Provider: Aziza Mckeon, MARTHA) senna-docusate (Senokot-S) 1 Tablet 1 Tablet, Oral, Daily(AM), First dose on Mon11/08/23 at 0900, Until Discontinued 1001 (Given - Provider: Clint Sanchez, MARTHA) 0823 (Given - Provider: Yulissa Collins, MARTHA) 0810 (Given - Provider: Marita Gasca RN) Spironolactone (Aldactone) tab 50 mg 50 mg, Oral, Daily(AM), First dose (after last modification) on Mon11/12/23 at 0930, Until Discontinued 1001 (Given - Provider: Clint Sanchez RN) 0822 (Given - Provider: Yulissa Collins, MARTHA) 0810 (Given - Provider: Marita Gasca, MARTHA) Torsemide (Demadex) tab 40 mg 40 mg, Oral, BID (0900, 1600), First dose (after last modification) on Mon11/13/23 at 1600, Until Discontinued 1712 (Given - Provider: Sabrina Lobo RN) 0810 (Given - Provider: Marita Gasca, MARTHA) Torsemide (Demadex) tab 80 mg (CANCELED) 80 mg, Oral, BID (0900, 1600), First dose on Mon11/11/23 at 1045, Until Discontinued 1002 (Given - Provider: Clint Sanchez RN)1717 (Given - Provider: Dana Ortiz RN) 0823 (Given - Provider: Yulissa Collins RN) umeclidinium Gates (INCRUSE ellipta) 62.5 MCG/ACT inhaler 1 Puff 1 Puff, Inhalation, RESPDAILY, First dose on Mon11/13/23 at 0800, Until Discontinued, NURSING TO FOLLOW PATIENT WITH MDI/DPI ADMINISTRATION 08 (Given - Provider: Yulissa Collins, MARTHA) 08 (Given - Provider: Marita Gasca, MARTHA) Urea (Ure-Na) powder packet 15 g 15 g, Oral, BID (.AM/PM), First dose on Mon11/13/23 at 1300, Until Discontinued 1300 (Given - Provider: Yesenia Bell RN)2058 (Given - Provider: Aziza Mckeon RN) 810 (Given - Provider: Marita Gasca, MARTHA) Vitamin C (Ascorbic Acid) tab 500 mg 500 mg, Oral, Daily(AM), First dose on Mon11/13/23 at 0900, Until Discontinued 821 (Given - Provider: Yulissa Collins RN) 08 (Given - Provider: Marita Gasca, MARTHA) Vitamin E (Aquasol E) cap 400 Units 400 Units, Oral, Daily(AM), First dose on Mon11/13/23 at 0900, Until Discontinued 821 (Given - Provider: Yulissa Collins RN) 08 (Given - Provider: Marita Gasca, MARTHA) PRN Medication Order 11/12/2023 11/13/2023 11/14/2023 Acetaminophen (Tylenol) tab 650 mg (CANCELED) 650 mg, Oral, Q6H PRN Pain, Mild, Headache, Fever >38C(100.5F), Starting on Priti 11/09/23 at 1046, Until 11/12/23 at 1107, Maximum of 4 grams (4000 mg) per day. 0447 (Given - Provider: Maribell Mane RN) Saline (Dupuyer) nasal spray 1 [place], Nasal, Q2H PRN Congestion, Starting on Mon11/06/23 at 1603, Until Mon11/14/23 at 1957 documented in this encounter Advance Directives Latest Code Status on File Code Status Date Activated Date Inactivated Comments Full Code 11/03/2023 8:37 PM 11/14/2023 7:57 PM This o rder reflects the patients wishes and were consensually agreed upon. Question Answer Comments Discussion of Advance Directives occurred with: Patient Code Status History Code Status Date Activated Date Inactivated Comments Full Code 11/03/2023 6:58 PM 11/03/2023 8:37 PM This or aydin reflects the patients wishes and were consensually agreed upon. Question Answer Comments Discussion of Advance Directives occurred with: Patient Limited Code 11/01/2023 4:29 PM 11/03/2023 6:47 PM This or aydin reflects the patients wishes and were consensually agreed upon. Question Answer Comments Discussion of Advance Directives occurred with: Patient Intubation? Yes Cardiac Compressions? No No Code 10/03/2023 8:57 PM 10/05/2023 10:38 PM This o rder reflects the patients wishes and were consensually agreed upon. Question Answer Comments Discussion of Advance Directives occurred with: Family Does the patient have a Living Will? No Does the patient have Health Care Power of Breakfast Manager? No Full Code 08/29/2023 8:14 PM 09/01/2023 6:46 PM This o rder reflects the patients wishes and were consensually agreed upon. Question Answer Comments Discussion of Advance Directives occurred with: Patient Does the patient have a Living Will? No Does the patient have Health Care Power of Breakfast Manager? No Care Teams Subassembly Supervisor Relationship Specialty Start Date End Date Sally Mahmood PA-C [address] [facility] [place] [id number] PCP - General Physician Recycle Worker 06/13/17 documented as of this encounter
--- OUTSIDE RECORDS SUMMARY | 2023-12-06 21:39 | External Medical Summary ---
Author Name Unknown Address Unknown Organization [id number]:[facility] [place] [address] [place] [address] Laboratory Report Ordering Provider Test Date Status LETI WILSON 11/14/2023 06:04:00 Final Warfarin Therapy
INR: 2 .0-3.0 conventional anticoagulation
INR: 2.5- 3.5 high intensity anticoagulation Observation Date Value Abnormality Reference (Units ) Status PT 11/14/2023 06:04:00 20.4 Above high normal 11 .6-15.2 (seconds) Final INR 11/14/2023 06:04:00 1.7 Above high normal 0. 8-1.2 Final Performing Location [facility] [place] [address] [place] [address]
--- OUTSIDE RECORDS SUMMARY | 2023-12-06 21:39 | External Medical Summary ---
Author Name Unknown Address Unknown Organization [id number]:[place] [place] [facility] [address] [place] [address] Laboratory Report Ordering Provider Test Date Status DISHA BERG 11/14/2023 06:04:00 Final Observation Date Value Abnormality Reference (Units ) Status BUN 11/14/2023 06:04:00 88 Above high normal 6-20 (mg/dL) Final Creatinine 11/14/2023 06:04:00 1.6 Above high normal 0.5-1.0 (mg/dL) Final Glomerular filtration rate/1.73 sq M.predicted [Volume Rate/Area] in Serum, Plasma or Blood by Creatinine-based formula (CKD-EPI) 11/14/2023 06:04:00 32 Below low normal >=60 (mL/min) Final eGFR is calculated based on the CKD-EPI 2020 equation Sodium 11/14/2023 06:04:00 123 Below low normal 135 -146 (mmol/L) Final Potassium 11/14/2023 06:04:00 3.3 Below low normal 3.5 -5.1 (mmol/L) Final Cl 11/14/2023 06:04:00 81 Below low normal 98- 107 (mmol/L) Final CO2 11/14/2023 06:04:00 30 22-32 (mmo l/L) Final Anion gap 11/14/2023 06:04:00 12 7-15 (mmol /L) Final Glucose 11/14/2023 06:04:00 111 70-120 (mg /dL) Final Calcium 11/14/2023 06:04:00 10.7 Above high normal 8. 4-10.2 (mg/dL) Final Performing Location [facility] [place] [address] [place] [address]
--- OUTSIDE RECORDS SUMMARY | 2023-12-06 21:40 | External Medical Summary ---
Author Name Unknown Address Unknown Organization [id number]:[facility] - [address] [place] [address] Laboratory Report Ordering Provider Test Date Status DISHA BERG 11/11/2023 18:42:00 Final Observation Date Value Abnormality Reference (Units ) Status Magnesium 11/11/2023 18:42:00 2.2 1.5-2.6 (m g/dL) Final Performing Location [facility] - [address] [place] [address]
--- OUTSIDE RECORDS SUMMARY | 2023-12-06 21:40 | External Medical Summary ---
Author Name Unknown Address Unknown Organization : Laboratory Report Ordering Provider Test Date Status TIA VILLASEÑOR 11/11/2023 16:52:23 Final Observation Date Value Abnormality Reference (Units ) Status Glucose Point of Care 11/11/2023 16:52:23 127 Above high normal 70-120 (mg/dL) Final Performing Location
--- OUTSIDE RECORDS SUMMARY | 2023-12-06 21:40 | External Medical Summary ---
Author Name Unknown Address Unknown Organization [id number]:[facility]ATORY [facility] – [place] [address] [place] [address] Laboratory Report Ordering Provider Test Date Status LETI WILSON 11/08/2023 05:58:00 Final Warfarin Therapy
INR: 2 .0-3.0 conventional anticoagulation
INR: 2.5- 3.5 high intensity anticoagulation Observation Date Value Abnormality Reference (Units ) Status PT 11/08/2023 05:58:00 23.4 Above high normal 11 .6-15.2 (seconds) Final INR 11/08/2023 05:58:00 2.1 Above high normal 0. 8-1.2 Final Performing Location LAB[facility]ATORY [facility] – [place] - [address] [place] [address]
--- OUTSIDE RECORDS SUMMARY | 2023-12-06 21:40 | External Medical Summary ---
Author Name Unknown Address Unknown Organization [id number][place] [facility] [place] [facility] [address] [place] [address] Laboratory Report Ordering Provider Test Date Status JOSE PACHECO 11/09/2023 04:49:00 Final Observation Date Value Abnormality Reference (Units ) Status BUN 11/09/2023 04:49:00 42 Above high normal 6-20 (mg/dL) Final Creatinine 11/09/2023 04:49:00 1.3 Above high normal 0.5-1.0 (mg/dL) Final Glomerular filtration rate/1.73 sq M.predicted [Volume Rate/Area] in Serum, Plasma or Blood by Creatinine-based formula (CKD-EPI) 11/09/2023 04:49:00 40 Below low normal >=60 (mL/min) Final eGFR is calculated based on the CKD-EPI 2020 equation Sodium 11/09/2023 04:49:00 129 Below low normal 135 -146 (mmol/L) Final Potassium 11/09/2023 04:49:00 3.5 3.5-5.1 (m mol/L) Final Cl 11/09/2023 04:49:00 88 Below low normal 98- 107 (mmol/L) Final CO2 11/09/2023 04:49:00 29 22-32 (mmo l/L) Final Anion gap 11/09/2023 04:49:00 12 7-15 (mmol /L) Final Glucose 11/09/2023 04:49:00 106 70-120 (mg /dL) Final Calcium 11/09/2023 04:49:00 8.9 8.4-10.2 ( mg/dL) Final Performing Location [facility] [place] [address] [place] [address]
--- OUTSIDE RECORDS SUMMARY | 2023-12-06 21:40 | External Medical Summary ---
Author Name Unknown Address Unknown Organization : Laboratory Report Ordering Provider Test Date Status TIA VILLASEÑOR 11/09/2023 21:03:42 Final Observation Date Value Abnormality Reference (Units ) Status Glucose Point of Care 11/09/2023 21:03:42 120 70-120 (mg/dL) Final Performing Location
--- OUTSIDE RECORDS SUMMARY | 2023-12-06 21:40 | External Medical Summary ---
Author Name Unknown Address Unknown Organization [id number]:[facility] [place] [address] [place] [address] Laboratory Report Ordering Provider Test Date Status HANNA DAVENPORT 11/12/2023 03:31:00 Final Observation Date Value Abnormality Reference (Units ) Status Iron 11/12/2023 03:31:00 24 Below low normal 33-151 (ug/dL) Final Iron-binding capacity 11/12/2023 03:31:00 488 Above high normal 250-425 (ug/dL) Final Transferrin Sat % 11/12/2023 03:31:00 5 Below low normal 15-55 (%) Final Performing Location LAB[facility] [place] [address] [place] [address]
--- OUTSIDE RECORDS SUMMARY | 2023-12-06 21:40 | External Medical Summary ---
Author Name Unknown Address Unknown Organization [id number]:[facility] - [address] [place] [address] Laboratory Report Ordering Provider Test Date Status DISHA BERG 11/11/2023 05:19:00 Final Observation Date Value Abnormality Reference (Units ) Status Magnesium 11/11/2023 05:19:00 2.3 1.5-2.6 (m g/dL) Final Performing Location [facility] - [address] [place] [address]
--- OUTSIDE RECORDS SUMMARY | 2023-12-06 21:40 | External Medical Summary ---
Author Name Unknown Address Unknown Organization : Laboratory Report Ordering Provider Test Date Status DADA LEAL 11/08/2023 20:53:54 Final Observation Date Value Abnormality Reference (Units ) Status Glucose Point of Care 11/08/2023 20:53:54 160 Above high normal 70-120 (mg/dL) Final Performing Location
--- OUTSIDE RECORDS SUMMARY | 2023-12-06 21:40 | External Medical Summary ---
Author Name Unknown Address Unknown Organization : Laboratory Report Ordering Provider Test Date Status DADA LEAL 11/08/2023 16:53:36 Final Observation Date Value Abnormality Reference (Units ) Status Glucose Point of Care 11/08/2023 16:53:36 132 Above high normal 70-120 (mg/dL) Final Performing Location
--- OUTSIDE RECORDS SUMMARY | 2023-12-06 21:40 | External Medical Summary ---
Author Name Unknown Address Unknown Organization : Laboratory Report Ordering Provider Test Date Status TIA VILLASEÑOR 11/12/2023 12:47:23 Final Observation Date Value Abnormality Reference (Units ) Status Glucose Point of Care 11/12/2023 12:47:23 142 Above high normal 70-120 (mg/dL) Final Performing Location
--- OUTSIDE RECORDS SUMMARY | 2023-12-06 21:40 | External Medical Summary ---
Author Name Unknown Address Unknown Organization [id number]:[facility] [place] - [facility] [address] [place] [address] Laboratory Report Ordering Provider Test Date Status DISHA BERG 11/12/2023 03:31:00 Final Observation Date Value Abnormality Reference (Units ) Status BUN 11/12/2023 03:31:00 55 Above high normal 6-20 (mg/dL) Final Creatinine 11/12/2023 03:31:00 1.6 Above high normal 0.5-1.0 (mg/dL) Final Glomerular filtration rate/1.73 sq M.predicted [Volume Rate/Area] in Serum, Plasma or Blood by Creatinine-based formula (CKD-EPI) 11/12/2023 03:31:00 33 Below low normal >=60 (mL/min) Final eGFR is calculated based on the CKD-EPI 2020 equation Sodium 11/12/2023 03:31:00 123 Below low normal 135 -146 (mmol/L) Final Potassium 11/12/2023 03:31:00 3.5 3.5-5.1 (m mol/L) Final Cl 11/12/2023 03:31:00 81 Below low normal 98- 107 (mmol/L) Final CO2 11/12/2023 03:31:00 30 22-32 (mmo l/L) Final Anion gap 11/12/2023 03:31:00 12 7-15 (mmol /L) Final Glucose 11/12/2023 03:31:00 107 70-120 (mg /dL) Final Calcium 11/12/2023 03:31:00 9.5 8.4-10.2 ( mg/dL) Final Performing Location [facility] [place] [address] [place] [address]
--- OUTSIDE RECORDS SUMMARY | 2023-12-06 21:40 | External Medical Summary ---
Author Name Unknown Address Unknown Organization K01:LABORATORY [facility] – [place] - [address] [place] [address] Laboratory Report Ordering Provider Test Date Status LETI WILSON 11/12/2023 03:31:00 Final Warfarin Therapy
INR: 2 .0-3.0 conventional anticoagulation
INR: 2.5- 3.5 high intensity anticoagulation Observation Date Value Abnormality Reference (Units ) Status PT 11/12/2023 03:31:00 21.3 Above high normal 11 .6-15.2 (seconds) Final INR 11/12/2023 03:31:00 1.8 Above high normal 0. 8-1.2 Final Performing Location LABORATORY [facility] [place] - [address] [place] [address]
--- OUTSIDE RECORDS SUMMARY | 2023-12-06 21:40 | External Medical Summary ---
Author Name Unknown Address Unknown Organization K01:[facility] - [address] [place] [address] Laboratory Report Ordering Provider Test Date Status DISHA BERG 11/14/2023 06:04:00 Final Observation Date Value Abnormality Reference (Units ) Status Magnesium 11/14/2023 06:04:00 2.4 1.5-2.6 (m g/dL) Final Performing Location [facility] - [address] [place] [address]
--- OUTSIDE RECORDS SUMMARY | 2023-12-06 21:40 | External Medical Summary ---
Author Name Unknown Address Unknown Organization K01:[facility] [place] [address] [place] [address] Laboratory Report Ordering Provider Test Date Status DISHA BERG 11/13/2023 19:07:00 Final Observation Date Value Abnormality Reference (Units ) Status BUN 11/13/2023 19:07:00 80 Above high normal 6-20 (mg/dL) Final Creatinine 11/13/2023 19:07:00 1.5 Above high normal 0.5-1.0 (mg/dL) Final Glomerular filtration rate/1.73 sq M.predicted [Volume Rate/Area] in Serum, Plasma or Blood by Creatinine-based formula (CKD-EPI) 11/13/2023 19:07:00 33 Below low normal >=60 (mL/min) Final eGFR is calculated based on the CKD-EPI 2020 equation Sodium 11/13/2023 19:07:00 122 Below low normal 135 -146 (mmol/L) Final Potassium 11/13/2023 19:07:00 4.1 3.5-5.1 (m mol/L) Final Cl 11/13/2023 19:07:00 80 Below low normal 98- 107 (mmol/L) Final CO2 11/13/2023 19:07:00 30 22-32 (mmo l/L) Final Anion gap 11/13/2023 19:07:00 12 7-15 (mmol /L) Final Glucose 11/13/2023 19:07:00 125 Above high normal 70 -120 (mg/dL) Final Calcium 11/13/2023 19:07:00 10.3 Above high normal 8. 4-10.2 (mg/dL) Final Performing Location [facility] [place] [address] [place] [address]
--- OUTSIDE RECORDS SUMMARY | 2023-12-06 21:40 | External Medical Summary ---
Author Name Unknown Address Unknown Organization K01:[facility] - [address] [place] [address] Laboratory Report Ordering Provider Test Date Status HANNA DAVENPORT 11/09/2023 04:49:00 Final Observation Date Value Abnormality Reference (Units ) Status Magnesium 11/09/2023 04:49:00 2.2 1.5-2.6 (m g/dL) Final Performing Location [facility] - [address] [place] [address]
--- OUTSIDE RECORDS SUMMARY | 2023-12-06 21:40 | External Medical Summary | Summary of Care ---
Author Name Unknown Organization [facility] Address [address] [place] [address] Phone [phone] Care Team Providers Care Financial Analyst Accountant Name Role Phone Jeanna Bal PA-C Primary Care Provi aydin Reason for Visit * Reason Onset Date Comments Order Request 08/08/2023 Encounter Details Date Type Department Care Team (Late st Contact Info) Description 08/08/2023 Telephone Pulmonary Medicine, [facility] [address] [place] [address] Yocasta Proctor CRNP [address] [place] [address] Order Request Allergies Active Allergy Reactions Criticality Noted Date Comments Amoxicillin Hives Medium 03/22/2016 Gatifloxacin Nausea/vomiting Medium 03/22/2016 Latex Rash Medium 03/22/2016 Other reaction(s): johnson documented as of this encounter (statuses as of 11/08/2023) Medications Medication Sig Dispensed Refills Start Date End Date Status Aspirin 81 MG TBEC Take 1 Tablet by mouth in the morning. 0 12/12/2015 Suspended cholecalciferol , VIT D3, (VITAMIN D3) 1000 UNITS Tablet Take 1 Tablet by mouth daily at noon. 0 06/08/2015 Suspended vitamin c (ASCORBIC ACID) 500 MG Tablet Take 1 Tablet by mouth daily at noon. 0 06/08/2015 Suspended Vitamin E 400 UNITS Tablet Take 1 Tablet by mouth daily at noon. 0 06/08/2015 Suspended Calcium Carbonate 600 MG Tablet Take 1 Tablet by mouth in the morning and 1 Tablet before bedtime. 0 12/12/2015 Suspended travoprost, PAVITHRA Free, (TRAVATAN Z) 0.004 % ophthalmic solution Instill 1 Drop into both eyes at bedtime. 0 06/08/2015 09/11/19 24 Discontinued(Med ication List Clean Up) Cyanocobalamin (VITAMIN B-12) 1000 MCG Tablet Take 1 Tablet by mouth in the morning. 0 Suspended Dorzolamide HCl-Timolol Mal 22.3-6.8 MG/ML Ophthalmic Solution (COSOPT OCUMETER PLUS) Instill 1 Drop into both eyes in the morning and 1 Drop before bedtime. 0 04/20/2020 09/11/19 24 Discontinued(Med ication List Clean Up) Magnesium Oxide 400 MG Oral Tablet Take 1 Tablet by mouth in the morning and 1 Tablet before bedtime. 0 03/21/2020 10/05/19 24 Discontinued methIMAzole 5 MG Oral Tablet (TAPAZOLE) Take 0.5 Tablets by mouth. Take 1/2 tablet 6 days per week (does not take on Monday) 0 05/27/2020 Suspended Atorvastatin Calcium 20 MG Oral Tablet (Lipitor) Take 1 Tablet by mouth daily. 90 Tablet 6 06/17/2021 Suspended Additional Information Patient taking differently:20 mg OralQ-1999, Reported on 10/03/2023 Potassium Chloride ER 10 MEQ Oral Capsule Extended Release Take 1 Capsule by mouth in the morning and 1 Capsule before bedtime. 0 11/07/2022 10/12/19 24 Discontinued Ipratropium-Alb uterol 0.5-2.5 (3) MG/3ML Inhalation Solution (Duoneb) Inhale 0.5 mg by mouth every 6 hours as needed for Shortness of Breath, Cough or Wheezing. 0 08/07/2023 Suspended Diovan 320 MG Oral Tablet Take 1 Tablet by mouth in the morning. 0 08/07/2023 08/25/19 24 Discontinued Torsemide 10 MG Oral Tablet (Demadex) Take 1 Tablet by mouth in the morning. 0 08/03/2023 08/25/19 24 Discontinued Fluticasone Furoate-Vilante rol 100-25 MCG/ACT Inhalation Aerosol Powder Breath Activated (BREO ellipta) Inhale 1 Puff by mouth in the morning. 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 Coronary artery disease invo lving qagan tayagungin coronary artery of qagan tayagungin heart without angina pectoris 03/22/2016 Essential hypertension with goal blood pressure less than 140/90 03/22/2016 Dyslipidemia, goal to be determined 03/22/2016 documented as of this encounter (statuses as of 11/08/2023) Resolved Problems Problem Noted Date Diagnosed Date Resolved Date New onset atrial fibrillation 08/29/2023 11/07/2023 Acute respiratory failure due to COVID-19 07/30/2023 08/01/2023 Pneumonia due to COVID-19 virus 07/30/2023 08/01/2023 NSTEMI (non-ST elevated myoc ardial infarction) 09/30/2021 10/05/2021 Pain in both lower extremities 03/22/2016 07/30/2023 documented as of this encounter (statuses as of 11/08/2023) Immunizations Name Administration Dates Next Due COVID-19 [...] you have serious difficulty h earing? No 07/30/2023 Are you blind or do you have serious difficulty seeing, even when wearing glasses? No 07/30/2023 Do you have serious difficul ty walking or climbing stairs? (5 years old or older) No 07/30/2023 Do you have difficulty dress ing or bathing? (5 years old or older) No 07/30/2023 Because of a physical, menta l, or emotional condition, do you have difficulty doing errands alone such as visiting a doctor s office or shopping? (15 years old or older) No 07/30/20 Cognitive Status Response Date of Assessm ent Because of a physical, menta l, or emotional condition, do you have serious difficulty concentrating, remembering, or making decisions? (5 years old or older) No 07/30/2023 documented as of this encounter Miscellaneous Notes * Telephone Encounter - Bre Olson RRT-DATA INTEGRITY SPECIALIST - 11/08/2023 9:50 AM EDT [employer] reports the overnight oximetry testing order has been cancelled, due to being unable to reach pt to schedule the testing. * Telephone Encounter - Anai Bobo OSA - 08/08/2023 11:23 AM EST Noc Ox order placed on [employer] online platform documented in this encounter Plan of Treatment Upcoming Encounters Date Type Department Care Team (Late st Contact Info) Description 11/24/2023 10:30 AM EDT Office Visit Cardiology, [facility] [address] [address] Jennifer Queen PA-C [address] [address] 12/13/2023 10:00 AM EDT Office Visit Gastroenterology, [facility] [address] [address] Trenton Cameron CRNP [address] [place] [phone] 02/20/2024 2:20 PM EDT Office Visit Nephrology, [facility] [address] [place] [address] Jef Kaminski MD [address] [place] [address] Health Maintenance Due Date Last Done Comments [...] Not on filedocumented as of this encounter Additional Health Concerns Infection Onset Date Last Indicated Resolved Time COVID-19 (confirmed) 07/30/2023 07/30/2023 024 12:18 AM EST Respiratory Rule-Out 08/19/2023 08/19/2023 024 2:18 PM EST COVID-19 Rule-Out 08/19/2023 08/19/2023 08/19/2023 2:18 PM EST Respiratory Rule-Out 08/29/2023 08/29/2023 024 5:56 PM EST COVID-19 Rule-Out 08/29/2023 08/29/2023 08/29/2023 5:56 PM EST Influenza (seasonal) 08/29/2023 08/29/2023 024 12:19 AM EST Respiratory Rule-Out 10/03/2023 10/03/2023 024 7:31 PM EST COVID-19 Rule-Out 10/03/2023 10/03/2023 10/03/2023 7:31 PM EST Respiratory Rule-Out 11/01/2023 11/01/2023 024 1:32 PM EDT COVID-19 Rule-Out 11/01/2023 11/01/2023 11/01/2023 1:32 PM EDT documented as of this encounter Advance Directives Latest Code Status on File Code Status Date Activated Date Inactivated Comments Full Code 11/03/2023 8:37 PM This order reflects the patients wishes [...] the patient have Health Care Power of Trailer Tank Truck Driver? No Full Code 08/29/2023 8:14 PM 09/01/2023 6:46 PM This o rder reflects the patients wishes and were consensually agreed upon. Question Answer Comments Discussion of Advance Directives occurred with: Patient Does the patient have a Living Will? No Does the patient have Health Care Power of Trailer Tank Truck Driver? No Care Teams Financial Analyst Accountant Relationship Specialty Start Date End Date Jeanna Bal PA-C [address] [place] [address] [place] [phone] PCP - General Physician Distillery Supervisor 06/13/17 documented as of this encounter
--- OUTSIDE RECORDS SUMMARY | 2023-12-06 21:40 | External Medical Summary ---
Author Name Unknown Address Unknown Organization : Laboratory Report Ordering Provider Test Date Status DADA LEAL 11/08/2023 10:53:45 Final Observation Date Value Abnormality Reference (Units ) Status Glucose Point of Care 11/08/2023 10:53:45 136 Above high normal 70-120 (mg/dL) Final Performing Location
--- OUTSIDE RECORDS SUMMARY | 2023-12-06 21:40 | External Medical Summary ---
Author Name Unknown Address Unknown Organization K01:[facility] - [address] [place] [address] Laboratory Report Ordering Provider Test Date Status DISHA BERG 11/13/2023 05:46:00 Final Observation Date Value Abnormality Reference (Units ) Status Magnesium 11/13/2023 05:46:00 2.2 1.5-2.6 (m g/dL) Final Performing Location [facility] - [address] [place] [address]
--- OUTSIDE RECORDS SUMMARY | 2023-12-06 21:40 | External Medical Summary ---
Author Name Unknown Address Unknown Organization : Laboratory Report Ordering Provider Test Date Status DADA LEAL 11/09/2023 11:00:39 Final Observation Date Value Abnormality Reference (Units ) Status Glucose Point of Care 11/09/2023 11:00:39 167 Above high normal 70-120 (mg/dL) Final Performing Location
--- OUTSIDE RECORDS SUMMARY | 2023-12-06 21:40 | External Medical Summary ---
Author Name Unknown Address Unknown Organization K01:LABORATORY [place] [address] [place] [address] Laboratory Report Ordering Provider Test Date Status LETI WILSON 11/09/2023 04:49:00 Final Observation Date Value Abnormality Reference (Units ) Status WBC, Total 11/09/2023 04:49:00 10.98 Above high normal 4.00-10.80 (K/uL) Final RBC 11/09/2023 04:49:00 3.35 3.85-5.15 (M/uL) Final Hemoglobin 11/09/2023 04:49:00 9.0 Below low normal 12.0-15.3 (g/dL) Final HCT 11/09/2023 04:49:00 29.4 Below low normal 36.0-45.2 (%) Final MCV 11/09/2023 04:49:00 87.8 81.5-97.5 (fL) Final MCH 11/09/2023 04:49:00 26.9 27.0-34.0 (pg) Final MCHC 11/09/2023 04:49:00 30.6 32.0-36.0 (g/dL) Final RDW 11/09/2023 04:49:00 16.7 11.5-15.5 (%) Final Platelets 11/09/2023 04:49:00 324 140-400 (K/uL) Final MPV 11/09/2023 04:49:00 9.3 6.6-11.1 (fL) Final Nucleated erythrocytes/100 leukocytes [Ratio] in Blood by Automated count 11/09/2023 04:49:00 0 <=0 (/100 WBCs) Final Performing Location LABORATORY [facility] [place] - [address] [place] [address]
--- OUTSIDE RECORDS SUMMARY | 2023-12-06 21:40 | External Medical Summary ---
Author Name Unknown Address Unknown Organization : Laboratory Report Ordering Provider Test Date Status TIA VILLASEÑOR 11/12/2023 07:28:24 Final Observation Date Value Abnormality Reference (Units ) Status Glucose Point of Care 11/12/2023 07:28:24 101 70-120 (mg/dL) Final Performing Location
--- OUTSIDE RECORDS SUMMARY | 2023-12-06 21:40 | External Medical Summary ---
Author Name Unknown Address Unknown Organization : Laboratory Report Ordering Provider Test Date Status DADA LEAL 11/09/2023 07:56:50 Final Observation Date Value Abnormality Reference (Units ) Status Glucose Point of Care 11/09/2023 07:56:50 103 70-120 (mg/dL) Final Performing Location
--- OUTSIDE RECORDS SUMMARY | 2023-12-06 21:40 | External Medical Summary ---
Author Name Unknown Address Unknown Organization [id number]:LABORATORY [facility] [place] - [address] [place] [address] Laboratory Report Ordering Provider Test Date Status LETI WILSON 11/12/2023 03:31:00 Final Observation Date Value Abnormality Reference (Units ) Status WBC, Total 11/12/2023 03:31:00 9.22 4.00-10.80 (K/uL) Final RBC 11/12/2023 03:31:00 3.42 3.85-5.15 (M/uL) Final Hemoglobin 11/12/2023 03:31:00 8.9 Below low normal 12.0-15.3 (g/dL) Final HCT 11/12/2023 03:31:00 28.6 Below low normal 36.0-45.2 (%) Final MCV 11/12/2023 03:31:00 83.6 81.5-97.5 (fL) Final MCH 11/12/2023 03:31:00 26.0 27.0-34.0 (pg) Final MCHC 11/12/2023 03:31:00 31.1 32.0-36.0 (g/dL) Final RDW 11/12/2023 03:31:00 16.7 11.5-15.5 (%) Final Platelets 11/12/2023 03:31:00 350 140-400 (K/uL) Final MPV 11/12/2023 03:31:00 9.1 6.6-11.1 (fL) Final Nucleated erythrocytes/100 leukocytes [Ratio] in Blood by Automated count 11/12/2023 03:31:00 0 <=0 (/100 WBCs) Final Performing Location LABORATORY [facility] [place] - [address] [place] [address]
--- OUTSIDE RECORDS SUMMARY | 2023-12-06 21:40 | External Medical Summary ---
Author Name Unknown Address Unknown Organization [id number]:LABORATORY [facility] [place] - [address] [place] [address] Laboratory Report Ordering Provider Test Date Status LETI WILSON 11/13/2023 05:46:00 Final Warfarin Therapy
INR: 2 .0-3.0 conventional anticoagulation
INR: 2.5- 3.5 high intensity anticoagulation Observation Date Value Abnormality Reference (Units ) Status PT 11/13/2023 05:46:00 21.6 Above high normal 11 .6-15.2 (seconds) Final INR 11/13/2023 05:46:00 1.9 Above high normal 0. 8-1.2 Final Performing Location LABORATORY [facility] [place] - [address] [place] [address]
--- OUTSIDE RECORDS SUMMARY | 2023-12-06 21:40 | External Medical Summary ---
Author Name Unknown Address Unknown Organization [id number]:LABORATORY [facility] [place] [facility] [place] [facility] [address] [place] [address] Laboratory Report Ordering Provider Test Date Status DISHA BERG 11/09/2023 17:05:00 Final Observation Date Value Abnormality Reference (Units ) Status BUN 11/09/2023 17:05:00 45 Above high normal 6-20 (mg/dL) Final Creatinine 11/09/2023 17:05:00 1.5 Above high normal 0.5-1.0 (mg/dL) Final Glomerular filtration rate/1.73 sq M.predicted [Volume Rate/Area] in Serum, Plasma or Blood by Creatinine-based formula (CKD-EPI) 11/09/2023 17:05:00 35 Below low normal >=60 (mL/min) Final eGFR is calculated based on the CKD-EPI 2020 equation Sodium 11/09/2023 17:05:00 127 Below low normal 135 -146 (mmol/L) Final Potassium 11/09/2023 17:05:00 3.8 3.5-5.1 (m mol/L) Final Cl 11/09/2023 17:05:00 86 Below low normal 98- 107 (mmol/L) Final CO2 11/09/2023 17:05:00 31 22-32 (mmo l/L) Final Anion gap 11/09/2023 17:05:00 10 7-15 (mmol /L) Final Glucose 11/09/2023 17:05:00 104 70-120 (mg /dL) Final Calcium 11/09/2023 17:05:00 9.1 8.4-10.2 ( mg/dL) Final Performing Location LABORATORY [facility] [place] [facility] [place] [address] [place] [address]
--- OUTSIDE RECORDS SUMMARY | 2023-12-06 21:40 | External Medical Summary ---
Author Name Unknown Address Unknown Organization : Laboratory Report Ordering Provider Test Date Status DADA LEAL 11/09/2023 16:05:54 Final Observation Date Value Abnormality Reference (Units ) Status Glucose Point of Care 11/09/2023 16:05:54 113 70-120 (mg/dL) Final Performing Location
--- OUTSIDE RECORDS SUMMARY | 2023-12-06 21:40 | External Medical Summary ---
Author Name Unknown Address Unknown Organization K01:[place] [place] [facility] [address] [place] [address] Laboratory Report Ordering Provider Test Date Status DISHA BERG 11/10/2023 17:42:00 Final Observation Date Value Abnormality Reference (Units ) Status BUN 11/10/2023 17:42:00 50 Above high normal 6-20 (mg/dL) Final Creatinine 11/10/2023 17:42:00 1.6 Above high normal 0.5-1.0 (mg/dL) Final Glomerular filtration rate/1.73 sq M.predicted [Volume Rate/Area] in Serum, Plasma or Blood by Creatinine-based formula (CKD-EPI) 11/10/2023 17:42:00 31 Below low normal >=60 (mL/min) Final eGFR is calculated based on the CKD-EPI 2020 equation Sodium 11/10/2023 17:42:00 126 Below low normal 135 -146 (mmol/L) Final Potassium 11/10/2023 17:42:00 4.6 3.5-5.1 (m mol/L) Final Cl 11/10/2023 17:42:00 85 Below low normal 98- 107 (mmol/L) Final CO2 11/10/2023 17:42:00 31 22-32 (mmo l/L) Final Anion gap 11/10/2023 17:42:00 10 7-15 (mmol /L) Final Glucose 11/10/2023 17:42:00 106 70-120 (mg /dL) Final Calcium 11/10/2023 17:42:00 9.5 8.4-10.2 ( mg/dL) Final Performing Location LABORATORY [facility] [place] [address] [place] [address]
--- OUTSIDE RECORDS SUMMARY | 2023-12-06 21:40 | External Medical Summary ---
Author Name Unknown Address Unknown Organization K01:LABORATORY [facility] - [address] [place] [address] Laboratory Report Ordering Provider Test Date Status DISHA BERG 11/12/2023 18:30:00 Final Observation Date Value Abnormality Reference (Units ) Status Magnesium 11/12/2023 18:30:00 2.2 1.5-2.6 (m g/dL) Final Performing Location LABORATORY [facility] - [address] [place] [address]
--- OUTSIDE RECORDS SUMMARY | 2023-12-06 21:40 | External Medical Summary ---
Author Name Unknown Address Unknown Organization K01:[place] [facility] [place] [address] [place] [address] Laboratory Report Ordering Provider Test Date Status LETI WILSON 11/10/2023 05:42:00 Final Warfarin Therapy
INR: 2 .0-3.0 conventional anticoagulation
INR: 2.5- 3.5 high intensity anticoagulation Observation Date Value Abnormality Reference (Units ) Status PT 11/10/2023 05:42:00 21.8 Above high normal 11 .6-15.2 (seconds) Final INR 11/10/2023 05:42:00 1.9 Above high normal 0. 8-1.2 Final Performing Location [place] [facility] [place] [address] [place] [address]
--- OUTSIDE RECORDS SUMMARY | 2023-12-06 21:40 | External Medical Summary ---
Author Name Unknown Address Unknown Organization : Laboratory Report Ordering Provider Test Date Status TIA VILLASEÑOR 11/10/2023 21:05:12 Final Observation Date Value Abnormality Reference (Units ) Status Glucose Point of Care 11/10/2023 21:05:12 120 70-120 (mg/dL) Final Performing Location
--- OUTSIDE RECORDS SUMMARY | 2023-12-06 21:40 | External Medical Summary ---
Author Name Unknown Address Unknown Organization K01:[place] [facility] [place] [facility] [place] [address] [place] [address] Laboratory Report Ordering Provider Test Date Status DISHA BERG 11/11/2023 05:19:00 Final Observation Date Value Abnormality Reference (Units ) Status BUN 11/11/2023 05:19:00 53 Above high normal 6-20 (mg/dL) Final Creatinine 11/11/2023 05:19:00 1.6 Above high normal 0.5-1.0 (mg/dL) Final Glomerular filtration rate/1.73 sq M.predicted [Volume Rate/Area] in Serum, Plasma or Blood by Creatinine-based formula (CKD-EPI) 11/11/2023 05:19:00 31 Below low normal >=60 (mL/min) Final eGFR is calculated based on the CKD-EPI 2020 equation Sodium 11/11/2023 05:19:00 127 Below low normal 135 -146 (mmol/L) Final Potassium 11/11/2023 05:19:00 3.7 3.5-5.1 (m mol/L) Final Cl 11/11/2023 05:19:00 84 Below low normal 98- 107 (mmol/L) Final CO2 11/11/2023 05:19:00 30 22-32 (mmo l/L) Final Anion gap 11/11/2023 05:19:00 13 7-15 (mmol /L) Final Glucose 11/11/2023 05:19:00 82 70-120 (mg /dL) Final Calcium 11/11/2023 05:19:00 9.5 8.4-10.2 ( mg/dL) Final Performing Location [facility] [place] [address] [place] [address]
--- OUTSIDE RECORDS SUMMARY | 2023-12-06 21:40 | External Medical Summary ---
Author Name Unknown Address Unknown Organization K01:LABORATORY [facility] [place] - [facility] [address] [place] [address] Laboratory Report Ordering Provider Test Date Status JOSE PACHECO 11/10/2023 05:41:00 Final Observation Date Value Abnormality Reference (Units ) Status BUN 11/10/2023 05:41:00 43 Above high normal 6-20 (mg/dL) Final Creatinine 11/10/2023 05:41:00 1.4 Above high normal 0.5-1.0 (mg/dL) Final Glomerular filtration rate/1.73 sq M.predicted [Volume Rate/Area] in Serum, Plasma or Blood by Creatinine-based formula (CKD-EPI) 11/10/2023 05:41:00 37 Below low normal >=60 (mL/min) Final eGFR is calculated based on the CKD-EPI 2020 equation Sodium 11/10/2023 05:41:00 128 Below low normal 135 -146 (mmol/L) Final Potassium 11/10/2023 05:41:00 3.1 Below low normal 3.5 -5.1 (mmol/L) Final Cl 11/10/2023 05:41:00 87 Below low normal 98- 107 (mmol/L) Final CO2 11/10/2023 05:41:00 30 22-32 (mmo l/L) Final Anion gap 11/10/2023 05:41:00 11 7-15 (mmol /L) Final Glucose 11/10/2023 05:41:00 94 70-120 (mg /dL) Final Calcium 11/10/2023 05:41:00 8.8 8.4-10.2 ( mg/dL) Final Performing Location LABORATORY [facility] [place] - [address] [place] [address]
--- OUTSIDE RECORDS SUMMARY | 2023-12-06 21:40 | External Medical Summary ---
Author Name Unknown Address Unknown Organization K01:[place] [facility] [place] [address] [place] [address] Laboratory Report Ordering Provider Test Date Status HANNA DAVENPORT 11/12/2023 03:31:00 Final Observation Date Value Abnormality Reference (Units ) Status Folic Acid 11/12/2023 03:31:00 >20.0 >4.5 (ng/ mL) Final Performing Location LABORATORY [facility] - [address] [place] [address]
--- OUTSIDE RECORDS SUMMARY | 2023-12-06 21:40 | External Medical Summary ---
Author Name Unknown Address Unknown Organization K01:LABORATORY [facility] [place] - [address] [place] [address] Laboratory Report Ordering Provider Test Date Status LETI WILSON 11/11/2023 05:19:00 Final Warfarin Therapy
INR: 2 .0-3.0 conventional anticoagulation
INR: 2.5- 3.5 high intensity anticoagulation Observation Date Value Abnormality Reference (Units ) Status PT 11/11/2023 05:19:00 21.1 Above high normal 11 .6-15.2 (seconds) Final INR 11/11/2023 05:19:00 1.8 Above high normal 0. 8-1.2 Final Performing Location LABORATORY [facility] [place] - [address] [place] [address]
--- OUTSIDE RECORDS SUMMARY | 2023-12-06 21:40 | External Medical Summary ---
Author Name Unknown Address Unknown Organization K01:LABORATORY [facility] - [address] [place] [address] Laboratory Report Ordering Provider Test Date Status DISHA BERG 11/13/2023 19:07:00 Final Observation Date Value Abnormality Reference (Units ) Status Magnesium 11/13/2023 19:07:00 2.3 1.5-2.6 (m g/dL) Final Performing Location LABORATORY [facility] - [address] [place] [address]
--- OUTSIDE RECORDS SUMMARY | 2023-12-06 21:40 | External Medical Summary ---
Author Name Unknown Address Unknown Organization K01:LABORATORY [facility] [place] - [address] [place] [address] Laboratory Report Ordering Provider Test Date Status LETI WILSON 11/11/2023 05:19:00 Final Observation Date Value Abnormality Reference (Units ) Status WBC, Total 11/11/2023 05:19:00 9.35 4.00-10.80 (K/uL) Final RBC 11/11/2023 05:19:00 3.55 3.85-5.15 (M/uL) Final Hemoglobin 11/11/2023 05:19:00 9.4 Below low normal 12.0-15.3 (g/dL) Final HCT 11/11/2023 05:19:00 31.0 Below low normal 36.0-45.2 (%) Final MCV 11/11/2023 05:19:00 87.3 81.5-97.5 (fL) Final MCH 11/11/2023 05:19:00 26.5 27.0-34.0 (pg) Final MCHC 11/11/2023 05:19:00 30.3 32.0-36.0 (g/dL) Final RDW 11/11/2023 05:19:00 16.7 11.5-15.5 (%) Final Platelets 11/11/2023 05:19:00 375 140-400 (K/uL) Final MPV 11/11/2023 05:19:00 9.3 6.6-11.1 (fL) Final Nucleated erythrocytes/100 leukocytes [Ratio] in Blood by Automated count 11/11/2023 05:19:00 0 <=0 (/100 WBCs) Final Performing Location LABORATORY [facility] [place] - [address] [place] [address]
--- OUTSIDE RECORDS SUMMARY | 2023-12-06 21:40 | External Medical Summary ---
Author Name Unknown Address Unknown Organization K01:LABORATORY [facility] [place] [facility] [address] [place] [address] Laboratory Report Ordering Provider Test Date Status DISHA BERG 11/11/2023 18:42:00 Final Observation Date Value Abnormality Reference (Units ) Status BUN 11/11/2023 18:42:00 55 Above high normal 6-20 (mg/dL) Final Creatinine 11/11/2023 18:42:00 1.5 Above high normal 0.5-1.0 (mg/dL) Final Glomerular filtration rate/1.73 sq M.predicted [Volume Rate/Area] in Serum, Plasma or Blood by Creatinine-based formula (CKD-EPI) 11/11/2023 18:42:00 33 Below low normal >=60 (mL/min) Final eGFR is calculated based on the CKD-EPI 2020 equation Sodium 11/11/2023 18:42:00 124 Below low normal 135 -146 (mmol/L) Final Potassium 11/11/2023 18:42:00 4.2 3.5-5.1 (m mol/L) Final Cl 11/11/2023 18:42:00 83 Below low normal 98- 107 (mmol/L) Final CO2 11/11/2023 18:42:00 28 22-32 (mmo l/L) Final Anion gap 11/11/2023 18:42:00 13 7-15 (mmol /L) Final Glucose 11/11/2023 18:42:00 146 Above high normal 70 -120 (mg/dL) Final Calcium 11/11/2023 18:42:00 9.5 8.4-10.2 ( mg/dL) Final Performing Location LABORATORY [facility] [place] [address] [place] [address]
--- OUTSIDE RECORDS SUMMARY | 2023-12-06 21:40 | External Medical Summary ---
Author Name Unknown Address Unknown Organization : Laboratory Report Ordering Provider Test Date Status DADA LEAL 11/08/2023 07:11:56 Final Observation Date Value Abnormality Reference (Units ) Status Glucose Point of Care 11/08/2023 07:11:56 89 70-120 (mg/dL) Final Performing Location
--- OUTSIDE RECORDS SUMMARY | 2023-12-06 21:40 | External Medical Summary ---
Author Name Unknown Address Unknown Organization K01:LABORATORY [facility] [place] - [facility] [address] [place] [address] Laboratory Report Ordering Provider Test Date Status DISHA BERG 11/13/2023 05:46:00 Final Observation Date Value Abnormality Reference (Units ) Status BUN 11/13/2023 05:46:00 56 Above high normal 6-20 (mg/dL) Final Creatinine 11/13/2023 05:46:00 1.6 Above high normal 0.5-1.0 (mg/dL) Final Glomerular filtration rate/1.73 sq M.predicted [Volume Rate/Area] in Serum, Plasma or Blood by Creatinine-based formula (CKD-EPI) 11/13/2023 05:46:00 32 Below low normal >=60 (mL/min) Final eGFR is calculated based on the CKD-EPI 2020 equation Sodium 11/13/2023 05:46:00 122 Below low normal 135 -146 (mmol/L) Final Potassium 11/13/2023 05:46:00 3.5 3.5-5.1 (m mol/L) Final Cl 11/13/2023 05:46:00 81 Below low normal 98- 107 (mmol/L) Final CO2 11/13/2023 05:46:00 31 22-32 (mmo l/L) Final Anion gap 11/13/2023 05:46:00 10 7-15 (mmol /L) Final Glucose 11/13/2023 05:46:00 101 70-120 (mg /dL) Final Calcium 11/13/2023 05:46:00 9.6 8.4-10.2 ( mg/dL) Final Performing Location LABORATORY [facility] [place] - [address] [place] [address]
--- OUTSIDE RECORDS SUMMARY | 2023-12-06 21:40 | External Medical Summary ---
Author Name Unknown Address Unknown Organization : Laboratory Report Ordering Provider Test Date Status TIA VILLASEÑOR 11/12/2023 07:50:56 Final Observation Date Value Abnormality Reference (Units ) Status Glucose Point of Care 11/12/2023 07:50:56 101 70-120 (mg/dL) Final Performing Location
--- OUTSIDE RECORDS SUMMARY | 2023-12-06 21:40 | External Medical Summary ---
Author Name Unknown Address Unknown Organization : Laboratory Report Ordering Provider Test Date Status TIA VILLASEÑOR 11/11/2023 11:02:36 Final Observation Date Value Abnormality Reference (Units ) Status Glucose Point of Care 11/11/2023 11:02:36 127 Above high normal 70-120 (mg/dL) Final Performing Location
--- OUTSIDE RECORDS SUMMARY | 2023-12-06 21:40 | External Medical Summary ---
Author Name Unknown Address Unknown Organization K01:LABORATORY [facility] - [address] [place] [address] Laboratory Report Ordering Provider Test Date Status DISHA BERG 11/12/2023 03:31:00 Final Observation Date Value Abnormality Reference (Units ) Status Magnesium 11/12/2023 03:31:00 2.1 1.5-2.6 (m g/dL) Final Performing Location LABORATORY [facility] - [address] [place] [address]
--- OUTSIDE RECORDS SUMMARY | 2023-12-06 21:40 | External Medical Summary ---
Author Name Unknown Address Unknown Organization K01:[place]ATORY [facility] [place] [address] [place] [address] Laboratory Report Ordering Provider Test Date Status HANNA DAVENPORT 11/12/2023 03:31:00 Final Observation Date Value Abnormality Reference (Units ) Status Vitamin B12 11/12/2023 03:31:00 1969 Above high normal 232-1245 (pg/mL) Final Performing Location LABORATORY [facility] - [address] [place] [address]
--- OUTSIDE RECORDS SUMMARY | 2023-12-06 21:40 | External Medical Summary ---
Author Name Unknown Address Unknown Organization K01:LABORATORY [facility] - [address] [place] [address] Laboratory Report Ordering Provider Test Date Status DISHA BERG 11/10/2023 05:41:00 Final Observation Date Value Abnormality Reference (Units ) Status Magnesium 11/10/2023 05:41:00 2.1 1.5-2.6 (m g/dL) Final Performing Location LABORATORY [facility] - [address] [place] [address]
--- OUTSIDE RECORDS SUMMARY | 2023-12-06 21:40 | External Medical Summary ---
Author Name UNSPECIFIED Address Unknown Organization [facility] [employer] History of Encounters Reason for Assessment: Transferred to an inpatient facility - patient not discharged from agency Inpatient Facility where the patient been admitted: Hospital
--- OUTSIDE RECORDS SUMMARY | 2023-12-06 21:40 | External Medical Summary ---
Author Name Unknown Address Unknown Organization : Laboratory Report Ordering Provider Test Date Status TIA VILLASEÑOR 11/11/2023 20:30:55 Final Observation Date Value Abnormality Reference (Units ) Status Glucose Point of Care 11/11/2023 20:30:55 128 Above high normal 70-120 (mg/dL) Final Performing Location
--- OUTSIDE RECORDS SUMMARY | 2023-12-06 21:40 | External Medical Summary ---
Author Name Unknown Address Unknown Organization K01:LABORATORY [facility] [place] - [address] [place] [address] Laboratory Report Ordering Provider Test Date Status LETI WILSON 11/08/2023 05:58:00 Final Observation Date Value Abnormality Reference (Units ) Status WBC, Total 11/08/2023 05:58:00 10.75 4.00-10.80 (K/uL) Final RBC 11/08/2023 05:58:00 3.49 3.85-5.15 (M/uL) Final Hemoglobin 11/08/2023 05:58:00 9.5 Below low normal 12.0-15.3 (g/dL) Final HCT 11/08/2023 05:58:00 30.6 Below low normal 36.0-45.2 (%) Final MCV 11/08/2023 05:58:00 87.7 81.5-97.5 (fL) Final MCH 11/08/2023 05:58:00 27.2 27.0-34.0 (pg) Final MCHC 11/08/2023 05:58:00 31.0 32.0-36.0 (g/dL) Final RDW 11/08/2023 05:58:00 16.9 11.5-15.5 (%) Final Platelets 11/08/2023 05:58:00 345 140-400 (K/uL) Final MPV 11/08/2023 05:58:00 9.2 6.6-11.1 (fL) Final Nucleated erythrocytes/100 leukocytes [Ratio] in Blood by Automated count 11/08/2023 05:58:00 0 <=0 (/100 WBCs) Final Performing Location LABORATORY [facility] [place] - [address] [place] [address]
--- OUTSIDE RECORDS SUMMARY | 2023-12-06 21:40 | External Medical Summary ---
Author Name Unknown Address Unknown Organization : Laboratory Report Ordering Provider Test Date Status TIA VILLASEÑOR 11/10/2023 07:09:54 Final Observation Date Value Abnormality Reference (Units ) Status Glucose Point of Care 11/10/2023 07:09:54 109 70-120 (mg/dL) Final Performing Location
--- OUTSIDE RECORDS SUMMARY | 2023-12-06 21:40 | External Medical Summary ---
Author Name Unknown Address Unknown Organization : Laboratory Report Ordering Provider Test Date Status TIA VILLASEÑOR 11/10/2023 15:16:07 Final Observation Date Value Abnormality Reference (Units ) Status Glucose Point of Care 11/10/2023 15:16:07 132 Above high normal 70-120 (mg/dL) Final Performing Location
--- OUTSIDE RECORDS SUMMARY | 2023-12-06 21:40 | External Medical Summary ---
Author Name Unknown Address Unknown Organization K01:LABORATORY [facility] - [address] [place] [address] Laboratory Report Ordering Provider Test Date Status DISHA BERG 11/10/2023 17:42:00 Final Observation Date Value Abnormality Reference (Units ) Status Magnesium 11/10/2023 17:42:00 2.1 1.5-2.6 (m g/dL) Final Performing Location LABORATORY [facility] - [address] [place] [address]
--- OUTSIDE RECORDS SUMMARY | 2023-12-06 21:40 | External Medical Summary ---
Author Name Unknown Address Unknown Organization K01:LABORATORY [facility] [place] [facility] [place] [address] [place] [address] Laboratory Report Ordering Provider Test Date Status LETI WILSON 11/10/2023 05:41:00 Final Observation Date Value Abnormality Reference (Units ) Status WBC, Total 11/10/2023 05:41:00 10.48 4.00-10.80 (K/uL) Final RBC 11/10/2023 05:41:00 3.39 3.85-5.15 (M/uL) Final Hemoglobin 11/10/2023 05:41:00 9.0 Below low normal 12.0-15.3 (g/dL) Final HCT 11/10/2023 05:41:00 29.2 Below low normal 36.0-45.2 (%) Final MCV 11/10/2023 05:41:00 86.1 81.5-97.5 (fL) Final MCH 11/10/2023 05:41:00 26.5 27.0-34.0 (pg) Final MCHC 11/10/2023 05:41:00 30.8 32.0-36.0 (g/dL) Final RDW 11/10/2023 05:41:00 16.6 11.5-15.5 (%) Final Platelets 11/10/2023 05:41:00 344 140-400 (K/uL) Final MPV 11/10/2023 05:41:00 9.4 6.6-11.1 (fL) Final Nucleated erythrocytes/100 leukocytes [Ratio] in Blood by Automated count 11/10/2023 05:41:00 0 <=0 (/100 WBCs) Final Performing Location LABORATORY [facility] [place] - [address] [place] [address]
--- OUTSIDE RECORDS SUMMARY | 2023-12-06 21:41 | External Medical Summary ---
Author Name Unknown Address Unknown Organization : Laboratory Report Ordering Provider Test Date Status DADA LEAL 11/07/2023 11:09:10 Final Observation Date Value Abnormality Reference (Units ) Status Glucose Point of Care 11/07/2023 11:09:10 152 Above high normal 70-120 (mg/dL) Final Performing Location
--- OUTSIDE RECORDS SUMMARY | 2023-12-06 21:41 | External Medical Summary ---
Author Name Unknown Address Unknown Organization [id number]:LAB[facility]ATORY [facility] [place] [address] [place] [address] Laboratory Report Ordering Provider Test Date Status LETI WILSON 11/06/2023 06:12:00 Final Warfarin Therapy
INR: 2 .0-3.0 conventional anticoagulation
INR: 2.5- 3.5 high intensity anticoagulation Observation Date Value Abnormality Reference (Units ) Status PT 11/06/2023 06:12:00 24.5 Above high normal 11 .6-15.2 (seconds) Final INR 11/06/2023 06:12:00 2.2 Above high normal 0. 8-1.2 Final Performing Location LAB[facility]ATORY [facility] [place] [address] [place] [address]
--- OUTSIDE RECORDS SUMMARY | 2023-12-06 21:41 | External Medical Summary ---
Author Name Unknown Address Unknown Organization [id number]:[place] [facility] [place] [address] [place] [address] Laboratory Report Ordering Provider Test Date Status LETI WILSON 11/06/2023 06:12:00 Final Observation Date Value Abnormality Reference (Units ) Status WBC, Total 11/06/2023 06:12:00 10.44 4.00-10.80 (K/uL) Final RBC 11/06/2023 06:12:00 3.33 3.85-5.15 (M/uL) Final Hemoglobin 11/06/2023 06:12:00 9.2 Below low normal 12.0-15.3 (g/dL) Final HCT 11/06/2023 06:12:00 29.9 Below low normal 36.0-45.2 (%) Final MCV 11/06/2023 06:12:00 89.8 81.5-97.5 (fL) Final MCH 11/06/2023 06:12:00 27.6 27.0-34.0 (pg) Final MCHC 11/06/2023 06:12:00 30.8 32.0-36.0 (g/dL) Final RDW 11/06/2023 06:12:00 16.6 11.5-15.5 (%) Final Platelets 11/06/2023 06:12:00 324 140-400 (K/uL) Final MPV 11/06/2023 06:12:00 9.3 6.6-11.1 (fL) Final Nucleated erythrocytes/100 leukocytes [Ratio] in Blood by Automated count 11/06/2023 06:12:00 0 <=0 (/100 WBCs) Final Performing Location [place] [facility] [place] [address] [address]
--- OUTSIDE RECORDS SUMMARY | 2023-12-06 21:41 | External Medical Summary ---
Author Name Unknown Address Unknown Organization [id number]:[place] [facility] [place] [address] [place] [address] Laboratory Report Ordering Provider Test Date Status E,BOBBY 11/04/2023 17:25:00 Final Observation Date Value Abnormality Reference (Units ) Status Lactic Acid 11/04/2023 17:25:00 3.0 Above high normal 0.4-2.0 (mmol/L) Final Performing Location LABORATORY C - [address] [place] [address]
--- OUTSIDE RECORDS SUMMARY | 2023-12-06 21:41 | External Medical Summary ---
Author Name Unknown Address Unknown Organization [id number]:[place] [facility] [place] [facility] [address] [place] [address] Laboratory Report Ordering Provider Test Date Status LETI WILSON 11/07/2023 06:16:00 Final Observation Date Value Abnormality Reference (Units ) Status WBC, Total 11/07/2023 06:16:00 11.31 Above high normal 4.00-10.80 (K/uL) Final RBC 11/07/2023 06:16:00 3.40 3.85-5.15 (M/uL) Final Hemoglobin 11/07/2023 06:16:00 9.3 Below low normal 12.0-15.3 (g/dL) Final HCT 11/07/2023 06:16:00 30.4 Below low normal 36.0-45.2 (%) Final MCV 11/07/2023 06:16:00 89.4 81.5-97.5 (fL) Final MCH 11/07/2023 06:16:00 27.4 27.0-34.0 (pg) Final MCHC 11/07/2023 06:16:00 30.6 32.0-36.0 (g/dL) Final RDW 11/07/2023 06:16:00 16.7 11.5-15.5 (%) Final Platelets 11/07/2023 06:16:00 330 140-400 (K/uL) Final MPV 11/07/2023 06:16:00 9.5 6.6-11.1 (fL) Final Nucleated erythrocytes/100 leukocytes [Ratio] in Blood by Automated count 11/07/2023 06:16:00 0 <=0 (/100 WBCs) Final Performing Location [place] [facility] [place] [address] [place] [address]
--- OUTSIDE RECORDS SUMMARY | 2023-12-06 21:41 | External Medical Summary ---
Author Name Unknown Address Unknown Organization : Laboratory Report Ordering Provider Test Date Status DADA LEAL 11/07/2023 07:35:15 Final Observation Date Value Abnormality Reference (Units ) Status Glucose Point of Care 11/07/2023 07:35:15 85 70-120 (mg/dL) Final Performing Location
--- OUTSIDE RECORDS SUMMARY | 2023-12-06 21:41 | External Medical Summary ---
Author Name Unknown Address Unknown Organization K01:LAB[place]ATORY [facility] [place] [address] [place] [address] Laboratory Report Ordering Provider Test Date Status MANINDER HUSTON 11/07/2023 19:09:00 Final Observation Date Value Abnormality Reference (Units ) Status BUN 11/07/2023 19:09:00 48 Above high normal 6-20 (mg/dL) Final Creatinine 11/07/2023 19:09:00 1.5 Above high normal 0.5-1.0 (mg/dL) Final Glomerular filtration rate/1.73 sq M.predicted [Volume Rate/Area] in Serum, Plasma or Blood by Creatinine-based formula (CKD-EPI) 11/07/2023 19:09:00 35 Below low normal >=60 (mL/min) Final eGFR is calculated based on the CKD-EPI 2020 equation Sodium 11/07/2023 19:09:00 126 Below low normal 135 -146 (mmol/L) Final Potassium 11/07/2023 19:09:00 4.8 3.5-5.1 (m mol/L) Final Cl 11/07/2023 19:09:00 91 Below low normal 98- 107 (mmol/L) Final CO2 11/07/2023 19:09:00 23 22-32 (mmo l/L) Final Anion gap 11/07/2023 19:09:00 12 7-15 (mmol /L) Final Glucose 11/07/2023 19:09:00 141 Above high normal 70 -120 (mg/dL) Final Calcium 11/07/2023 19:09:00 8.3 Below low normal 8.4 -10.2 (mg/dL) Final Performing Location LABORATORY [facility] [place] [address] [place] [address]
--- OUTSIDE RECORDS SUMMARY | 2023-12-06 21:41 | External Medical Summary ---
Author Name Unknown Address Unknown Organization K01:[place] [facility] [place] [address] [place] [address] Laboratory Report Ordering Provider Test Date Status E,BOBBY 11/05/2023 06:26:00 Final Observation Date Value Abnormality Reference (Units ) Status Lactic Acid 11/05/2023 06:26:00 1.6 0.4-2.0 (mmol/L) Final Performing Location LAB[facility]ATORY [facility] - [address] [facility] [address]
--- OUTSIDE RECORDS SUMMARY | 2023-12-06 21:41 | External Medical Summary ---
Author Name Unknown Address Unknown Organization K01:LABORATORY [facility] - [facility] [address] [place] [address] Laboratory Report Ordering Provider Test Date Status CLEMENCIA BANDA 11/06/2023 06:12:00 Final Observation Date Value Abnormality Reference (Units ) Status BUN 11/06/2023 06:12:00 47 Above high normal 6-20 (mg/dL) Final Creatinine 11/06/2023 06:12:00 1.4 Above high normal 0.5-1.0 (mg/dL) Final Glomerular filtration rate/1.73 sq M.predicted [Volume Rate/Area] in Serum, Plasma or Blood by Creatinine-based formula (CKD-EPI) 11/06/2023 06:12:00 38 Below low normal >=60 (mL/min) Final eGFR is calculated based on the CKD-EPI 2020 equation Sodium 11/06/2023 06:12:00 131 Below low normal 135 -146 (mmol/L) Final Potassium 11/06/2023 06:12:00 4.2 3.5-5.1 (m mol/L) Final Cl 11/06/2023 06:12:00 95 Below low normal 98- 107 (mmol/L) Final CO2 11/06/2023 06:12:00 25 22-32 (mmo l/L) Final Anion gap 11/06/2023 06:12:00 11 7-15 (mmol /L) Final Glucose 11/06/2023 06:12:00 101 70-120 (mg /dL) Final Calcium 11/06/2023 06:12:00 8.4 8.4-10.2 ( mg/dL) Final Performing Location LABORATORY [facility] - [address] [place] [address]
--- OUTSIDE RECORDS SUMMARY | 2023-12-06 21:41 | External Medical Summary ---
Author Name Unknown Address Unknown Organization K01:LABORATORY [facility] [place] - [address] [place] [address] Laboratory Report Ordering Provider Test Date Status JOSE PACHECO 11/07/2023 06:16:00 Final Observation Date Value Abnormality Reference (Units ) Status BUN 11/07/2023 06:16:00 46 Above high normal 6-20 (mg/dL) Final Creatinine 11/07/2023 06:16:00 1.4 Above high normal 0.5-1.0 (mg/dL) Final Glomerular filtration rate/1.73 sq M.predicted [Volume Rate/Area] in Serum, Plasma or Blood by Creatinine-based formula (CKD-EPI) 11/07/2023 06:16:00 37 Below low normal >=60 (mL/min) Final eGFR is calculated based on the CKD-EPI 2020 equation Sodium 11/07/2023 06:16:00 127 Below low normal 135 -146 (mmol/L) Final Potassium 11/07/2023 06:16:00 4.3 3.5-5.1 (m mol/L) Final Cl 11/07/2023 06:16:00 90 Below low normal 98- 107 (mmol/L) Final CO2 11/07/2023 06:16:00 24 22-32 (mmo l/L) Final Anion gap 11/07/2023 06:16:00 13 7-15 (mmol /L) Final Glucose 11/07/2023 06:16:00 96 70-120 (mg /dL) Final Calcium 11/07/2023 06:16:00 8.7 8.4-10.2 ( mg/dL) Final Performing Location LABORATORY [facility] [place] - [address] [place] [address]
--- OUTSIDE RECORDS SUMMARY | 2023-12-06 21:41 | External Medical Summary ---
Author Name Unknown Address Unknown Organization K01:LABORATORY [facility] [place] - [address] [address] Laboratory Report Ordering Provider Test Date Status LETI WILSON 11/05/2023 06:26:00 Final Warfarin Therapy
INR: 2 .0-3.0 conventional anticoagulation
INR: 2.5- 3.5 high intensity anticoagulation Observation Date Value Abnormality Reference (Units ) Status PT 11/05/2023 06:26:00 27.6 Above high normal 11 .6-15.2 (seconds) Final INR 11/05/2023 06:26:00 2.5 Above high normal 0. 8-1.2 Final Performing Location LABORATORY [facility] [place] - [address] [address]
--- OUTSIDE RECORDS SUMMARY | 2023-12-06 21:41 | External Medical Summary ---
Author Name Unknown Address Unknown Organization K01:LABORATORY [facility] [place] - [address] [place] [address] Laboratory Report Ordering Provider Test Date Status LETI WILSON 11/05/2023 06:26:00 Final Observation Date Value Abnormality Reference (Units ) Status WBC, Total 11/05/2023 06:26:00 10.71 4.00-10.80 (K/uL) Final RBC 11/05/2023 06:26:00 3.12 3.85-5.15 (M/uL) Final Hemoglobin 11/05/2023 06:26:00 8.6 Below low normal 12.0-15.3 (g/dL) Final HCT 11/05/2023 06:26:00 28.1 Below low normal 36.0-45.2 (%) Final MCV 11/05/2023 06:26:00 90.1 81.5-97.5 (fL) Final MCH 11/05/2023 06:26:00 27.6 27.0-34.0 (pg) Final MCHC 11/05/2023 06:26:00 30.6 32.0-36.0 (g/dL) Final RDW 11/05/2023 06:26:00 16.8 11.5-15.5 (%) Final Platelets 11/05/2023 06:26:00 309 140-400 (K/uL) Final MPV 11/05/2023 06:26:00 9.4 6.6-11.1 (fL) Final Nucleated erythrocytes/100 leukocytes [Ratio] in Blood by Automated count 11/05/2023 06:26:00 0 <=0 (/100 WBCs) Final Performing Location LABORATORY [facility] [place] - [address] [address]
--- OUTSIDE RECORDS SUMMARY | 2023-12-06 21:41 | External Medical Summary ---
Author Name Unknown Address Unknown Organization K01:LABORATORY [facility] [place] - [address] [address] Laboratory Report Ordering Provider Test Date Status LETI WILSON 11/07/2023 06:16:00 Final Warfarin Therapy
INR: 2 .0-3.0 conventional anticoagulation
INR: 2.5- 3.5 high intensity anticoagulation Observation Date Value Abnormality Reference (Units ) Status PT 11/07/2023 06:16:00 25.6 Above high normal 11 .6-15.2 (seconds) Final INR 11/07/2023 06:16:00 2.3 Above high normal 0. 8-1.2 Final Performing Location LABORATORY [facility] [place] - [address] [address]
--- OUTSIDE RECORDS SUMMARY | 2023-12-06 21:41 | External Medical Summary ---
Author Name Unknown Address Unknown Organization K01:[place] [facility] [place] [address] [place] [address] Laboratory Report Ordering Provider Test Date Status E,BOBBY 11/04/2023 14:25:00 Final Observation Date Value Abnormality Reference (Units ) Status Lactic Acid 11/04/2023 14:25:00 2.8 Above high normal 0.4-2.0 (mmol/L) Final Performing Location LABORATORY C - [address] [place] [address]
--- OUTSIDE RECORDS SUMMARY | 2023-12-06 21:41 | External Medical Summary ---
Author Name Unknown Address Unknown Organization K01:LABORATORY [facility] [place] - [address] [place] [address] Laboratory Report Ordering Provider Test Date Status CLEMENCIA BANDA 11/05/2023 17:57:00 Final Observation Date Value Abnormality Reference (Units ) Status BUN 11/05/2023 17:57:00 49 Above high normal 6-20 (mg/dL) Final Creatinine 11/05/2023 17:57:00 1.4 Above high normal 0.5-1.0 (mg/dL) Final Glomerular filtration rate/1.73 sq M.predicted [Volume Rate/Area] in Serum, Plasma or Blood by Creatinine-based formula (CKD-EPI) 11/05/2023 17:57:00 36 Below low normal >=60 (mL/min) Final eGFR is calculated based on the CKD-EPI 2020 equation Sodium 11/05/2023 17:57:00 130 Below low normal 135 -146 (mmol/L) Final Potassium 11/05/2023 17:57:00 4.2 3.5-5.1 (m mol/L) Final Cl 11/05/2023 17:57:00 94 Below low normal 98- 107 (mmol/L) Final CO2 11/05/2023 17:57:00 25 22-32 (mmo l/L) Final Anion gap 11/05/2023 17:57:00 11 7-15 (mmol /L) Final Glucose 11/05/2023 17:57:00 121 Above high normal 70 -120 (mg/dL) Final Calcium 11/05/2023 17:57:00 8.3 Below low normal 8.4 -10.2 (mg/dL) Final Performing Location LABORATORY [facility] [place] - [address] [address]
--- OUTSIDE RECORDS SUMMARY | 2023-12-06 21:41 | External Medical Summary ---
Author Name Unknown Address Unknown Organization K01:LABORATORY [facility] [place] [address] [place] [address] Laboratory Report Ordering Provider Test Date Status E,BOBBY 11/05/2023 00:20:00 Final Observation Date Value Abnormality Reference (Units ) Status Lactic Acid 11/05/2023 00:20:00 1.6 0.4-2.0 (mmol/L) Final Performing Location LAB[facility]ATORY [facility] - [address] [facility] [address]
--- OUTSIDE RECORDS SUMMARY | 2023-12-06 21:41 | External Medical Summary ---
Author Name Unknown Address Unknown Organization K01:[place]ORY [facility] [place] - [address] [place] [address] Laboratory Report Ordering Provider Test Date Status CLEMENCIA BANDA 11/04/2023 19:41:00 Final Observation Date Value Abnormality Reference (Units ) Status BUN 11/04/2023 19:41:00 51 Above high normal 6-20 (mg/dL) Final Creatinine 11/04/2023 19:41:00 1.4 Above high normal 0.5-1.0 (mg/dL) Final Glomerular filtration rate/1.73 sq M.predicted [Volume Rate/Area] in Serum, Plasma or Blood by Creatinine-based formula (CKD-EPI) 11/04/2023 19:41:00 36 Below low normal >=60 (mL/min) Final eGFR is calculated based on the CKD-EPI 2020 equation Sodium 11/04/2023 19:41:00 128 Below low normal 135 -146 (mmol/L) Final Potassium 11/04/2023 19:41:00 3.7 3.5-5.1 (m mol/L) Final Cl 11/04/2023 19:41:00 91 Below low normal 98- 107 (mmol/L) Final CO2 11/04/2023 19:41:00 25 22-32 (mmo l/L) Final Anion gap 11/04/2023 19:41:00 12 7-15 (mmol /L) Final Glucose 11/04/2023 19:41:00 143 Above high normal 70 -120 (mg/dL) Final Calcium 11/04/2023 19:41:00 8.3 Below low normal 8.4 -10.2 (mg/dL) Final Performing Location LABORATORY [facility] [place] - [address] [address]
--- OUTSIDE RECORDS SUMMARY | 2023-12-06 21:41 | External Medical Summary ---
Author Name Unknown Address Unknown Organization : Laboratory Report Ordering Provider Test Date Status DADA LEAL 11/07/2023 20:42:04 Final Observation Date Value Abnormality Reference (Units ) Status Glucose Point of Care 11/07/2023 20:42:04 131 Above high normal 70-120 (mg/dL) Final Performing Location
--- OUTSIDE RECORDS SUMMARY | 2023-12-06 21:41 | External Medical Summary ---
Author Name Unknown Address Unknown Organization : Laboratory Report Ordering Provider Test Date Status DADA LEAL 11/07/2023 16:32:58 Final Observation Date Value Abnormality Reference (Units ) Status Glucose Point of Care 11/07/2023 16:32:58 106 70-120 (mg/dL) Final Performing Location
--- OUTSIDE RECORDS SUMMARY | 2023-12-06 21:41 | External Medical Summary ---
Author Name Unknown Address Unknown Organization K01:[place] [facility] [place] [facility] [address] [place] [address] Laboratory Report Ordering Provider Test Date Status JOSE PACHECO 11/08/2023 05:58:00 Final Observation Date Value Abnormality Reference (Units ) Status BUN 11/08/2023 05:58:00 44 Above high normal 6-20 (mg/dL) Final Creatinine 11/08/2023 05:58:00 1.4 Above high normal 0.5-1.0 (mg/dL) Final Glomerular filtration rate/1.73 sq M.predicted [Volume Rate/Area] in Serum, Plasma or Blood by Creatinine-based formula (CKD-EPI) 11/08/2023 05:58:00 36 Below low normal >=60 (mL/min) Final eGFR is calculated based on the CKD-EPI 2020 equation Sodium 11/08/2023 05:58:00 129 Below low normal 135 -146 (mmol/L) Final Potassium 11/08/2023 05:58:00 4.0 3.5-5.1 (m mol/L) Final Cl 11/08/2023 05:58:00 91 Below low normal 98- 107 (mmol/L) Final CO2 11/08/2023 05:58:00 25 22-32 (mmo l/L) Final Anion gap 11/08/2023 05:58:00 13 7-15 (mmol /L) Final Glucose 11/08/2023 05:58:00 102 70-120 (mg /dL) Final Calcium 11/08/2023 05:58:00 8.5 8.4-10.2 ( mg/dL) Final Performing Location [place] [facility] [place] [address] [place] [address]
--- OUTSIDE RECORDS SUMMARY | 2023-12-06 21:42 | External Medical Summary ---
Author Name Unknown Address Unknown Organization K01:LABORATORY [facility] [place] - [address] [place] [address] Laboratory Report Ordering Provider Test Date Status LETI WILSON 11/03/2023 19:21:00 Final Observation Date Value Abnormality Reference (Units ) Status TSH 11/03/2023 19:21:00 12.00 Above high normal 0. 27-4.20 (uIU/mL) Final Performing Location LABORATORY [facility] - [address] [place] [address]
--- OUTSIDE RECORDS SUMMARY | 2023-12-06 21:42 | External Medical Summary | Summary of Care ---
Author Name Unknown Organization [facility] Address [address] [place] [address] Phone [phone] Care Team Providers Care Clay Roaster Name Role Phone Jeanna Bal PA-C Primary Care Provi aydin Reason for Visit * Reason Comments Short of Breath Since this morning * Auth/Cert Specialty Diagnoses / Procedures Referred By Kasey angy Referred To Contact [facility] [address] [place] [address] Phone: [phone] [place] [address] Referral ID Status Reason Start Date Expiration Date Visits Re quested Visits Authorized [id number] Encounter Details Date Type Department Care Team (Latest Contact Info) Description 11/01/2023 12:17 PM EDT - 11/03/2023 5:36 PM EDT Hospital Encounter CCU [facility], Critical Care Unit, [facility] 2nd Floor [address] [place] [address] Yassine Nobles MD [address] [place] [address] Meera Thompson MD [address] [place] [address] Discharge Disposition: Other Allergies Active Allergy Reactions Criticality Noted Date Comments Amoxicillin Hives Medium 03/22/2016 Gatifloxacin Nausea/vomiting Medium 03/22/2016 Latex Rash Medium 03/22/2016 Other reaction(s): johnson documented as of this encounter (statuses as of 11/04/2023) Medications Medication Sig Dispensed Refills Start Date [...] 1 Tablet before bedtime. 0 12/12/2015 Suspended Cyanocobalamin (VITAMIN B-12) 1000 MCG Tablet [...] 1 Each 0 08/25/2023 Suspended Additional Information Midodrine HCl 5 MG Oral Tablet (Proamatine) Take 1 Tablet by mouth in the morning and 1 Tablet at noon and 1 Tablet in the evening. 90 Tablet 0 08/25/2023 Suspended Additional Information Patient taking differently:5 mg OralTID(AM/NOON/HS), Reported on 10/03/2023 Benzonatate 100 MG Oral Capsule Take 2 Capsules by mouth 3 times a day as needed for Cough. 30 Capsule 0 08/25/2023 Suspended Additional Information Sennosides-Docusa te Sodium 8.6-50 MG Oral Tablet (Senna-S) Take 1 Tablet by mouth in the morning. 0 Suspended Dorzolamide HCl-Timolol Mal 2-0.5 % Ophthalmic Solution (Cosopt) Instill 1 Drop into eye in the morning and 1 Drop before bedtime. 0 Suspended Preparation H 1-0.25-14.4-15 % External Cream (Tizlxm-RD-Ykqklt in-Petrolatum) Apply 1 Application topically to affected [...] and 1 Tablet before bedtime. 0 Suspended Torsemide 10 MG Oral Tablet (Demadex) Take 1 Tablet by mouth daily as needed for Other (may take 1 extra dose daily if needed). 0 Suspended Torsemide 20 MG Oral Tablet (Demadex) Take 2 Tablets by mouth in the morning and 2 Tablets in the evening. 120 Tablet 0 10/05/2023 Suspended Additional Information Miconazole Nitrate 2 % External Powder (Remedy) Apply topically to affected area 2 times a day. Apply to groin 85 g 0 10/09/2023 Suspended Additional Information Potassium Chloride ER 10 MEQ Oral Capsule Extended Release Take 2 Capsules by mouth in the morning and 2 Capsules before bedtime. 0 10/12/2023 Suspended Fluticasone Propionate 50 MCG/ACT Nasal Suspension (Flonase) Administer 1 Dalton into nostril in the morning. 0 Suspended Hospital, Clinic, or Other Facility Administered Medication Ordered Dose Route Frequency Start Date End Date Status Albuterol Sulfate (Proventil) (2.5 MG/3ML) 0.083% inhalation solution 2.5 mgIndications:SOB (shortness of breath) 2.5 mg NEBULIZER PRN 10/16/2023 10/15/2024 Act toshia documented as of this encounter (statuses as of 11/04/2023) Active Problems Problem Noted Date Diagnosed Date Interstitial lung disease 10/18/2023 Anemia 10/04/2023 Nonrheumatic aortic valve stenosis 10/04/2023 Acute on chronic heart failure 10/03/2023 CARLOTA (acute kidney injury) 10/03/2023 Prolonged QT interval 10/03/2023 Acute combined systolic and diastolic CHF, NYHA class 1 10/03/2023 Generalized weakness 10/03/2023 Chronic heart failure with preserved ejection fr action 08/31/2023 Atrial fibrillation 08/31/2023 Chronic hyponatremia 08/31/2023 Positive D dimer 08/30/2023 Influenza A 08/29/2023 Pulmonary HTN 08/29/2023 Elevated troponin 08/29/2023 Acute hyponatremia 08/29/2023 Generalized weakness 08/29/2023 Thrombocytopenia 08/29/2023 New onset atrial fibrillation 08/29/2023 Petechial rash 08/29/2023 Oral thrush 08/29/2023 Acute on chronic respiratory failure with hypoxi a 08/19/2023 CAP (community acquired pneumonia) 08/19/2023 Acute on chronic combined sy stolic and diastolic heart failure due to valvular disease 07/30/2023 Graves disease 09/30/2021 Hypertrophic cardiomyopathy 06/21/2020 Nonrheumatic mitral valve stenosis 06/21/2020 Ascending aortic 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 Coronary artery disease invo lving [place] coronary artery of [place] heart without angina pectoris 03/22/2016 Essential hypertension with goal blood pressure less than 140/90 03/22/2016 Dyslipidemia, goal to be determined 03/22/2016 documented as of this encounter (statuses as of 11/04/2023) Resolved Problems Problem Noted Date Diagnosed Date Resolved Date Acute respiratory failure due to COVID-19 07/30/2023 08/01/2023 Pneumonia due to COVID-19 virus 07/30/2023 08/01/2023 NSTEMI (non-ST elevated myoc ardial infarction) 09/30/2021 10/05/2021 Pain in both lower extremities 03/22/2016 07/30/2023 documented as of this encounter (statuses as of 11/04/2023) Immunizations Name Administration Dates Next Due COVID-19 [...] Sign Reading Time Taken Comments Blood Pressure 121/82 11/03/2023 5:26 PM EDT Pulse 81 11/03/2023 5:26 PM EDT Temperature 36.4 C (97.5 F) 11/03/2023 5:26 PM ED T Respiratory Rate 19 11/03/2023 5:26 PM EDT Oxygen Saturation 94% 11/03/2023 5:26 PM EDT Inhaled Oxygen Concentration - - Weight 84.9 kg (187 lb 2.7 oz) 11/03/2023 6:22 A M EDT Height 154.9 cm (5' 1") 11/01/2023 3:20 PM EDT Body Mass Index 35.37 11/01/2023 3:20 PM EDT documented in this encounter Functional Status Functional Status Response Date of Assess ment Are you deaf or do you have serious difficulty h earing? No 10/03/2023 Are you blind or do you have serious difficulty seeing, even when wearing glasses? No 10/03/2023 Do you have serious difficul ty walking or climbing stairs? (5 years old or older) Yes 10/03/2023 Do you have difficulty dress ing or bathing? (5 years old or older) No 10/03/2023 Because of a physical, menta l, or emotional condition, do you have difficulty doing errands alone such as visiting a doctor s office or shopping? (15 years old or older) Yes 10/03/19 24 Cognitive Status Response Date of Assessm ent Because of a physical, menta l, or emotional condition, do you have serious difficulty concentrating, remembering, or making decisions? (5 years old or older) No 10/03/2023 documented as of this encounter Discharge Summaries * Meera Thompson MD - 11/03/2023 1:21 PM EDT Images from the original note were not included. 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 ADMISSION HISTORY & PHYSICAL EXAM (focused): HPI: 87 years old woman with history below is presenting with shortness of breath. Patient has been having progressive shortness of breath that severely worsened today and made it so that patient could not make it to her Cardiology appointment today. EMS was called she was brought to the hospital and found to be hypervolemic in distress and given Lasix in the emergency department and admitted to the hospital. Patient denies having any fevers, chills, nausea, vomiting, dysuria, hematuria, hematemesis, hematochezia, and lightheadedness. HOSPITAL COURSE (focused): 10/31 At this time it appears the patient has an acute decompensated heart failure due to acute on chronic diastolic heart failure from her valvular heart disease. When seen patient appeared in mild distress with her lips being blue and due to this we are transferring her to the CCU while placing her on BiPAP and Lasix drip. Patient is a limited code she is willing to be intubated but not have any chest compressions. We hope to avoid any mechanical intubation while trying to decrease her preload as patient is hypervolemic. Most likely her acute kidney injury is cardiorenal as well as her hyponatremia. As for her lactic acidosis I surmised that this is from cardiac causes as her lactic acid improved with diuresis in the emergency department we will continue to monitor. As the patient's elevated troponins with signs of lateral ischemia most likely this once again is due to congestive heart failure with stress being placed on her heart but we will monitor her troponins serially. As for her elevated LFTs and bilirubin level we will get an ultrasound but most likely this is congestive hepatomegaly. A Cardiology consultation has been placed as well. We have restarted her prior to admission potassium, apixaban, midodrine, atorvastatin, methimazole, and aspirin 11/01 Patient's echocardiogram showed an EF of 55-59% with severe tricuspid regurgitation as well as severe pulmonary hypertension and a dilated IVC. Patient has a pending Cardiology consultation we will continue with Lasix drip until otherwise recommended to switch to IV push by Cardiology. We will continue with Laws catheter as patient has lost 17 lb since admission. Patient's serum troponin level peaked this morning is now trending down to 70 this afternoon. Her serum creatinine level increased to 1.5 which we will allow as her lactic acid has normalized. I have discontinued BiPAP order an ordered nasal cannula oxygen order. We will need to monitor patient's hemoglobin as if it drops below 8 she will need to be transfused due to her cardiac condition we will get a gastroenterology consultation for possible endoscopy. Ordering a type and screen and will get blood consent just in case. Patient's ultrasound shows a normal liver and most likely elevated LFTs with bilirubin level was due to congestive hepatomegaly. Sliding scale insulin has been ordered. 11/02 Due to patient gaining weight plan is to put her back on Lasix drip. Patient was evaluated by Cardiology and recommendations that she be transferred to [facility] dueto the fact that she has been admitted multiple times recently. Physical Exam General: Patient appears in mild distress HEENT: Normocephalic, atraumatic. EOMI Cardiac: Irregularly irregular Respiratory: Crackles with diminished breath sounds heard Abdomen: Soft flat abdomen without tenderness on palpation at all 4 quadrants. Normoactive bowel sounds Extremities: Bilateral pitting edema has improved from admission Neuro/Psych: The patient is awake, alert and oriented to person, place, and time with normal speech. Appropriate mood and affect. Operations & Procedures: none Complications: none applicable Significant Lab and Imaging Results: As mentioned above Results Pending at Discharge: Lab Results Pending at Discharge: COMPREHENSIVE METABOLIC PANEL Routine CBC Routine MAGNESIUM Routine PHOSPHORUS Routine MEDICATION UPDATES AT DISCHARGE CONTINUE taking these medications but follow up with your Primary Care Physician (PCP). INSTRUCTIONS Acetaminophen 325 MG Caps Notes to patient: Temp above 100.5 or pain Take 2 Tablets by mouth as needed for Other (Temp above 100.5 or pain). albuterol-ipratropium 2.5-0.5 MG/3ML nebulizer solution Commonly known as: Duoneb Notes to patient: Shortness of Breath, Cough or Wheezing. Inhale 0.5 mg by mouth every 6 hours as needed for Shortness of Breath, Cough or Wheezing. Apixaban 2.5 MG Tabs Commonly known as: Eliquis Notes to patient: Blood thinner Take 1 Tablet by mouth in the morning and 1 Tablet before bedtime. aspirin enteric coated 81 MG Tbec Notes to patient: Platelet aggregate- helps prevent the platelets from becoming sticky which helps prevent blood clot formation Take 1 Tablet by mouth in the morning. atorvaSTATin 20 MG Tablet Commonly known as: Lipitor Notes to patient: cholesterol Take 1 Tablet by mouth daily. Benzonatate 100 MG Capsule Commonly known as: Jasmin Portillo Notes to patient: cough Take 2 Capsules by mouth 3 times a day as needed for Cough. Bisacodyl 10 MG suppository Commonly known as: Dulcolax Notes to patient: constipation Administer 1 Suppository into the rectum as needed for Constipation. Calcium Carbonate 600 MG Tablet Notes to patient: supplement Take 1 Tablet by mouth in the morning and 1 Tablet before bedtime. cholecalciferol (VIT D3) 1000 UNITS Tablet Notes to patient: supplement Take 1 Tablet by mouth daily at noon. Allyn Osman Misc Notes to patient: DME Use as directed. Cosopt 2.23-0.68% ophthalmic solution Generic drug: dorzolamide-timolol Notes to patient: glaucoma Instill 1 Drop into eye in the morning and 1 Drop before bedtime. doxycycline hyclate 100 MG Capsule Ask about: Should I take this medication? Take 1 Capsule by mouth in the morning and 1 Capsule before bedtime. Do all this for 10 days. Enema Disposable Enem Notes to patient: constipation Administer 1 Application into the rectum as needed for Constipation. fluticasone 50 MCG/ACT nasal spray Commonly known as: Flonase Notes to patient: Allergic rhinitis Administer 1 Dalton into nostril in the morning. fluticasone furoate-vilanterol 100-25 MCG/ACT Aepb Commonly known as: BREO ellipta Notes to patient: copd Inhale 1 Puff by mouth in the morning. Latanoprost 0.005 % ophthalmic solution Commonly known as: Xalatan Notes to patient: glaucoma Instill 1 Drop into both eyes at bedtime. methIMAzole 5 MG Tablet Commonly known as: Tapazole Notes to patient: thyroid Take 0.5 Tablets by mouth. Take 1/2 tablet 6 days per week (does not take on Monday) Miconazole Nitrate 2 % Powd Commonly known as: Remedy Notes to patient: Skin care Apply topically to affected area 2 times a day. Apply to groin midodrine 5 MG Tablet Commonly known as: Proamatine Notes to patient: Blood pressure Take 1 Tablet by mouth in the morning and 1 Tablet at noon and 1 Tablet in the evening. polyethylene glycol 3350 119 gram Powd Commonly known as: Miralax Notes to patient: constipation Take 17 g by mouth as needed for Constipation. Potassium Chloride ER 10 MEQ Cpcr Notes to patient: supplement Take 2 Capsules by mouth in the morning and 2 Capsules before bedtime. Preparation H 1-0.25-14.4-15 % Crea Generic drug: Ebmnab-AD-Ptojavth-Petrolatum Notes to patient: hemorrhoids Apply 1 Application topically to affected area every 8 hours as needed for Hemorrhoids. Apply to rectal area Senna-S 8.6-50 MG per tablet Generic drug: senna-docusate Notes to patient: constipation Take 1 Tablet by mouth in the morning. * Torsemide 20 MG Tablet Commonly known as: Demadex Notes to patient: Heart failure Take 2 Tablets by mouth in the morning and 2 Tablets in the evening. * Torsemide 10 MG Tablet Commonly known as: Demadex Notes to patient: Edema; shortness of breath; weight gain Take 1 Tablet by mouth daily as needed for Other (may take 1 extra dose daily if needed). Vitamin B-12 1000 MCG Tablet Commonly known as: Cyanocobalamin Notes to patient: supplement Take 1 Tablet by mouth in the morning. Vitamin C 500 MG Tablet Commonly known as: Ascorbic Acid Notes to patient: supplement Take 1 Tablet by mouth daily at noon. Vitamin E 400 units Tablet Notes to patient: supplement Take 1 Tablet by mouth daily at noon. * This list has 2 medication(s) that are the same as other medications prescribed for you. Read thedirections carefully, and ask your doctor or other care provider to review them with you. SCHEDULED FOLLOW-UP: Future Appointments Appt Date/Time Provider Department 11/07/2023 8:30 AM [facility]/24/2023 10:30 AM Jennifer Queen PA-C Cardiology, [facility] 12/13/2023 10:00 AM Trenton Cameron CRNP Gastroenterology, [facility] 02/20/2024 2:20 PM Jef Kaminski MD Nephrology, [facility] Other Information Indwelling Devices: LINES ALL Duration Peripheral Line Right 20 Gauge 2 days Urethral Catheter Regular catheter 1 day Peripheral Line Left Hand 22 Gauge <1 day Vital Signs (last recorded): Most Recent Systolic BP: 116 mmHg (11/03/23 1207) Most Recent Diastolic BP: 80 mmHg (11/03/23 1207) Pulse: 78 (11/03/23 1200) Resp: 17 (11/03/23 1200) Most Recent Temperature: 36.89 C (11/03/23 1200) Weight: 84.9 kg (187 lb 2.7 oz) (11/03/23 0622) SpO2: 99 % (11/03/23 1200) O2 flow rate: 3 L/MIN (11/03/23 0800) Allergies: Amoxicillin, Gatifloxacin, and Latex Activity: as tolerated Diet: age appropriate diet and cardiac diet Code Status: Limited Code Condition on Discharge: stable Isolation status: None Cognition: normal HOSPITAL CONSULTS ORDERED: CARDIOLOGY CONSULT IP REFERRING PHYSICIAN: Ref: [id number]] [address] STRE[address] ADDRESS AVAILABLE None (office) None (fax) PRIMARY CARE PROVIDER: PCP: Jeanna Bal PA-C [address] [address] / [place] [id number] (office) [phone] (fax) Note: To contact a physician responsible for this patients hospital care, please call [facility] [phone]. I spent a total of 45 minutes coordinating, documenting, and providing care for this patient excluding time spent in the performance of separately billed services. documented in this encounter Progress Notes * Meera Thompson MD - 11/02/2023 1:29 PM EDT Images from the original note were not included. [place] [id number] CCU- INTERVAL HISTORY: Patient was seen and evaluated at the bedside. Patient appears improved from yesterday and is off BiPAP and now on nasal cannula sitting up in a chair at the bedside. Objective Physical Exam Most Recent Vital Signs: BP: 116 mmHg/80 mmHg (11/02/23 0800) Pulse: 79 (11/02/23 1300) Temp: 36.11 C (11/02/23 0800) Temp Summary: Temp Min: 35.9 C (96.6 F) Max: 36.3 C (97.3 F) Invasive Temp Min: 36.1 C (97 F) Max: 36.1 C (97 F) SpO2: 95 % (11/02/23 1300) O2 flow rate: 3 L/MIN (11/02/23 0803) Supplemental O2 Delivery: Nasal Cannula (11/02/23 08) Physical Exam General: Patient appears in mild distress HEENT: Normocephalic, atraumatic. EOMI Cardiac: Irregularly irregular Respiratory: Crackles with diminished breath sounds heard Abdomen: Soft flat abdomen without tenderness on palpation at all 4 quadrants. Normoactive bowel sounds Extremities: Bilateral pitting edema noted Neuro/Psych: The patient is awake, alert and oriented to person, place, and time with normal speech. Appropriate mood and affect. Urethral Catheter Regular catheter (Active) Number of days: 1 Peripheral Line Right 20 Gauge (Active) Number of days: 1 STUDIES: Encounter Orders Labs and other studies reviewed Current Facility-Administered Medications: Acetaminophen (Tylenol) supp 650 mg, 650 mg, Rectal, Q6H PRN, Meera Thompson MD Acetaminophen (Tylenol) tab 650 mg, 650 mg, Oral, Q6H PRN, Meera Thompson MD Albuterol Sulfate (Proventil) (2.5 MG/3ML) 0.083% inhalation solution 2.5 mg, 2.5 mg, Nebulizer, Q4H PRN, Meera Thompson MD Apixaban (Eliquis) tab 2.5 mg, 2.5 mg, Oral, BID(AM/PM), Meera Thompson MD, 2.5 mg at 11/02/23 0847 aspirin enteric coated tab 81 mg, 81 mg, Oral, Daily(AM), Meera Thompson MD, 81 mg at 11/02/23 0847 atorvaSTATin (Lipitor) tab 20 mg, 20 mg, Oral, QPM 2000, Meera Thompson MD, 20 mg at 11/01/232053 Polyethylene Glycol 3350 (Miralax) oral powder 17 g, 1 Packet, Oral, Daily PRN, 17 g at 11/02/23 1133 AND [START ON 11/03/2023] senna-docusate (Senokot-S) 1 Tablet, 1 Tablet, Oral, BID PRN AND [START ON 11/04/2023] Bisacodyl (Dulcolax) tab 5 mg, 5 mg, Oral, Daily PRN AND [START ON 11/04/2023]Bisacodyl (Dulcolax) supp 10 mg, 10 mg, Rectal, Daily PRN, Meera Thompson MD fluticasone furoate-vilanterol (BREO ellipta) 100-25 MCG/ACT inhaler 1 Puff, 1 Puff, Inhalation, Resp Daily, Meera Thompson MD, 1 Puff at 11/02/23 0803 Furosemide (Lasix) 500 mg in NSS (5 mg/mL) infusion 100 mL, 10 mg/hr, Intravenous, Continuous, Meera Thompson MD, Last Rate: 2 mL/hr at 11/02/23 1144, 10 mg/hr at 11/02/23 1144 methIMAzole (Tapazole) tab 2.5 mg, 2.5 mg, Oral, Daily(AM), Meera Thompson MD, 2.5 mg at 11/02/23 0847 midodrine (Proamatine) tab 5 mg, 5 mg, Oral, TID(AM/NOON/HS), Meera Thompson MD, 5 mg at 11/02/23 1137 ondansetron (Zofran) inj 4 mg, 4 mg, IV Push, Q6H PRN, Meera Thompson MD Ventilation Method: Acute Non-Invasive --- Indication (Adult Only)? 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 * ASSESSMENT Acute on chronic diastolic heart failure Acute kidney injury NSTEMI with ST depression in lateral leads Hyponatremia/Hypochloremia Anemia Elevated LFTs and bilirubin level History Hypertension Type 2 diabetes Hyperlipidemia 4.5 cm ascending aortic aneurysm Persistent atrial fibrillation on Eliquis Moderate aortic stenosis Severe mitral stenosis Severe left ventricular hypertrophy Graves disease PLAN Patient's echocardiogram showed an EF of 55-59% with severe tricuspid regurgitation as well as severe pulmonary hypertension and a dilated IVC. Patient has a pending Cardiology consultation we will continue with Lasix drip until otherwise recommended to switch to IV push by Cardiology. We will continue with Laws catheter as patient has lost 17 lb since admission. Patient's serum troponin level peaked this morning is now trending down to 70 this afternoon. Her serum creatinine level increased to 1.5 which we will allow as her lactic acid has normalized. I have discontinued BiPAP order an ordered nasal cannula oxygen order. We will need to monitor patient's hemoglobin as if it drops below 8 she will need to be transfused due to her cardiac condition we will get a gastroenterology consultation for possible endoscopy. Ordering a type and screen and will get blood consent just in case. Patient's ultrasound shows a normal liver and most likely elevated LFTs with bilirubin level was due to congestive hepatomegaly. Sliding scale insulin has been ordered. PHARMACOLOGIC VTE PROPHYLAXIS: Apixaban Apixaban Tabs CODE STATUS: Limited Code EXPECTED DISCHARGE DATE: 11/06/2023 Addendum Will discontinue Lasix drip at 8:00 p.m. tonight and start patient tomorrow on IV Lasix twice daily60 mg. We are awaiting Cardiology consultation. documented in this encounter H&P Notes * Meera Thompson MD - 11/01/2023 4:30 PM EDT Images from the original note were not included. [facility] MH2 [id number]-[id number] PRESENTING PROBLEM: Shortness of breath HPI: 87 years old woman with history below is presenting with shortness of breath. Patient has been having progressive shortness of breath that severely worsened today and made it so that patient could not make it to her Cardiology appointment today. EMS was called she was brought to the hospital and found to be hypervolemic in distress and given Lasix in the emergency department and admitted to the hospital. Patient denies having any fevers, chills, nausea, vomiting, dysuria, hematuria, hematemesis, hematochezia, and lightheadedness. Subjective Patient's past history, medications, and allergies were reviewed. Objective Physical Exam Most Recent Vital Signs: BP: 98 mmHg/63 mmHg (11/01/23 1520) Pulse: 76 (11/01/23 1545) Temp: 36.28 C (11/01/23 1520) Temp Summary: Temp Min: 36.3 C (97.3 F) Max: 37.1 C (98.8 F) SpO2: 97 % (11/01/23 1550) O2 flow rate: 6 L/MIN (11/01/23 1520) Supplemental O2 Delivery: Non-Invasive CPAP/BiPAP (11/01/23 1550) Physical Exam General: Patient appears in mild distress HEENT: Normocephalic, atraumatic. EOMI Cardiac: Irregularly irregular Respiratory: Crackles with diminished breath sounds heard Abdomen: Soft flat abdomen without tenderness on palpation at all 4 quadrants. Normoactive bowel sounds Extremities: Bilateral pitting edema noted Neuro/Psych: The patient is awake, alert and oriented to person, place, and time with normal speech. Appropriate mood and affect. STUDIES: Encounter Orders Labs and other studies reviewed Current Facility-Administered Medications: Acetaminophen (Tylenol) supp 650 mg, 650 mg, Rectal, Q6H PRN, Meera Thompson MD Acetaminophen (Tylenol) tab 650 mg, 650 mg, Oral, Q6H PRN, Meera Thompson MD Apixaban (Eliquis) tab 2.5 mg, 2.5 mg, Oral, BID(AM/PM), Meera Thompson MD [START ON 11/02/2023] aspirin enteric coated tab 81 mg, 81 mg, Oral, Daily(AM), Meera Thompson MD atorvaSTATin (Lipitor) tab 20 mg, 20 mg, Oral, QPM 2000, Merea Thompson MD Polyethylene Glycol 3350 (Miralax) oral powder 17 g, 1 Packet, Oral, Daily PRN AND [START ON 11/03/2023] senna-docusate (Senokot-S) 1 Tablet, 1 Tablet, Oral, BID PRN AND [START ON 11/04/2023] Bisacodyl (Dulcolax) tab 5 mg, 5 mg, Oral, Daily PRN AND [START ON 11/04/2023] Bisacodyl (Dulcolax) supp 10 mg, 10 mg, Rectal, Daily PRN, Meera Thompson MD Furosemide (Lasix) 500 mg in NSS (5 mg/mL) infusion 100 mL, 10 mg/hr, Intravenous, Continuous, Meera Thompson MD Furosemide (Lasix) inj 80 mg, 80 mg, IV Push, Once, Meera Thompson MD Lidocaine (Aspercreme) 4 % patch 1 Patch, 1 Patch, Transdermal, Once, Tania Garcia PA-C, 1 Patch at 11/01/23 1259 [START ON 11/02/2023] methIMAzole (Tapazole) tab 2.5 mg, 2.5 mg, Oral, Daily(AM), Meera Thompson MD midodrine (Proamatine) tab 5 mg, 5 mg, Oral, TID(AM/NOON/HS), Meera Thompson MD ondansetron (Zofran) inj 4 mg, 4 mg, IV Push, Q6H PRN, Meera Thompson MD Ventilation Method: Acute Non-Invasive --- Indication (Adult Only)? Acute CHF --- PEEP/EPAP/CPAP: 5--- IPAP/Total PIP: 10 --- Changes Per Adult Protocol: Yes, , , Continuous AND oxygen GAS, , Inhalation, Oxygen, Meera Thompson MD potassium chloride ER tab 20 mEq, 20 mEq, Oral, BID(AM/PM), Meera Thompson MD sodium chloride 0.9 % flush/inj 3 mL, 3 mL, IV Push, PRN, Meera Thompson MD Assessment and Plan IMPRESSION: Active Problems: * No active hospital problems. * Resolved Problems: * No resolved hospital problems. * ASSESSMENT Acute on chronic diastolic heart failure Acute kidney injury NSTEMI with ST depression in lateral leads Hyponatremia/Hypochloremia Lactic acidosis Leukocytosis Anemia Elevated LFTs and bilirubin level History Hypertension Type 2 diabetes Hyperlipidemia 4.5 cm ascending aortic aneurysm Persistent atrial fibrillation on Eliquis Moderate aortic stenosis Severe mitral stenosis Severe left ventricular hypertrophy Graves disease PLAN At this time it appears the patient has an acute decompensated heart failure due to acute on chronic diastolic heart failure from her valvular heart disease. When seen patient appeared in mild distress with her lips being blue and due to this we are transferring her to the CCU while placing her on BiPAP and Lasix drip. Patient is a limited code she is willing to be intubated but not have any chest compressions. We hope to avoid any mechanical intubation while trying to decrease her preload as patient is hypervolemic. Most likely her acute kidney injury is cardiorenal as well as her hyponatremia. As for her lactic acidosis I surmised that this is from cardiac causes as her lactic acid improved with diuresis in the emergency department we will continue to monitor. As the patient's elevated troponins with signs of lateral ischemia most likely this once again is due to congestive heart failure with stress being placed on her heart but we will monitor her troponins serially. As for her elevated LFTs and bilirubin level we will get an ultrasound but most likely this is congestive hepatomegaly. A Cardiology consultation has been placed as well. We have restarted her prior to admission potassium, apixaban, midodrine, atorvastatin, methimazole, and aspirin PHARMACOLOGIC VTE PROPHYLAXIS: Apixaban Apixaban Tabs CODE STATUS: Limited Code EXPECTED DISCHARGE DATE: No information available documented in this encounter Nursing Notes * Vikki Quinteros RN - 11/03/2023 5:11 PM EDT Hand-Off - Nurse Communication Note Name: Maria Luisa Recinos Location: [address]- Date: 11/03/2023 Time: 5:11 PM Nurse giving report: Vikki Quinteros RN Nurse receiving report: MARTHA Ruiz Reason for SBAR handoff: Transfer Immediate Concerns: consults not completed: coming to see Cardiology SITUATION: Admission date: 11/01/2023 Chief Complaint: Short of Breath (Since this morning) Admitting diagnosis: Heart failure, systolic and diastolic, acute on chronic (HCC) Patient Service: Hospitalists [[id number]] Level of Care: Critical Care (ICU/CCU/PICU) [1] Attending Provider: Meera Thompson MD Coming From:hospital: 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 * Activity: OOB to chair Fall Risk or Safety Concerns: Fall Risk and Has patient fallen this encounter? No Isolation: None Isolation flowsheet: ASSESSMENT: Vital Signs: BP: 117/82 (11/03/231599) Temp: 36.3 C (97.3 F) (11/03/231599) Pulse: 73 (11/03/23 1600) Resp: 18 (11/03/231599) SpO2: 100 % (11/03/231599) Glucose (Bedside): 204 (11/03/23 1626) Weight: 84.9 kg (187 lb 2.7 oz) (11/03/23 06) Height: 154.9 cm (5' 1") (11/01/23 1520) Pain Assessment Flowsheet Row Most Recent Value Pain Assessment Scale [facility] Scale 0-10 Pain Score 0 (no pain) Fall Scale: Fall Score: 60 (11/03/23829) Fall Interventions: Ambulation assist device present;Bed at low level;Bed alarm on;Yellow armband applied/intact and on patient;Fall risk sign outside room;Floor free of clutter;Non-skid foot covering on;Reoriented patient;Walk path free of obstacles;Pressure sensitive pad alarm on and audible (11/03/23829) Neurological: Neuro WNL: WNL - within normal limits (11/03/23829) Angie Coma Scale Eyes Open: Spontaneous (11/03/23829) Best Verbal Response: Verbally appropriate for age (11/03/23829) Best Motor Response: Obeys commands appropriate for age (11/03/23829) Coma Score: 15 (11/03/23829) Additional Neurological Information: n/a Respiratory: Respiratory WNL: X - Exceptions to WNL as documented below (11/03/23829) Cough: None (11/03/23829) Depth/Rhythm: Regular (11/03/23829) Dyspnea Occurance: With Exertion (11/03/23829) Effort: Unlabored (11/03/23829) Effort Characteristics: Accessory Muscle Use (11/03/23829) O2 flow rate: 3 L/MIN (11/03/23 08) Additional Respiratory Information: 3 L is basline home O2 use Cardiac: Cardiovascular WNL: X - Exceptions to WNL as documented below (11/03/23829) Heart Sounds: S1;S2 (11/03/23829) Rhythm: AFib (11/03/23800) QRS: 0.1 seconds (11/03/23800) Extremities: +Sensation;Right;Left;Upper;Lower (11/03/23829) Pulses Right: Dorsalis Pedis +;Post Tibial +;Radial + (11/03/23829) Pulses Left: Dorsalis Pedis +;Radial -;Radial + (11/03/23829) Edema Location: Lower extremities;Both (11/03/23829) Edema Assessment: +1 - Description (11/03/23829) Capillary Refill: 3 sec (11/03/23829) Additional Cardiac Information: GI/: GI WNL: X - Exceptions to WNL as documented below (11/03/23829) Abdomen: Soft;Non-tender;Non-distended (11/03/23829) WNL: X - Exceptions to WNL as documented below (11/03/23829) Urine Description: Clear;Yellow (11/03/23829) Additional GI/ Information: laws in place. 2 Urethral Catheter Regular catheter (Active) Site Assessment Clean;Skin intact 11/03/23829 Securement Method Securing device (Describe) 11/03/23829 Catheter secured to leg? Yes 11/03/23829 Catheter bag below bladder? Yes 11/03/23829 Has IUBC been removed? (If yes, ensure the order is discontinued.) No, monitoring hourly urine output in critically ill patient 11/03/23829 Critical Patient Need for Hourly Urine Outputs with IUBC Respiratory instability, unable to reposition due to pulmonary status 11/03/23829 IUBC Tubing Disconnected This Shift? No 11/03/23829 Collection Container Standard drainage 11/03/23829 Urine Description Clear;Yellow 11/03/23829 Output (mL) 550 mL 11/03/23 1610 Number of days: 2 Integumentary: Integumentary WNL: X - Exceptions to WNL as documented below (11/03/23829) Skin Description: Warm;Dry (11/03/23829) Skin Color: Flesh Tone (11/03/23829) Skin Lesion: Other - Describe (scattered scabs and bruises) (11/03/23829) Reji Score (auto-calculation): 20 (11/03/23829) Skin Breakdown (including Red, Non-Blanchable Areas) Present on Admission?: No (11/01/23 1706) Additional Integumentary Information: Restraints: No orders of the defined types were placed in this encounter. Medications: Lasix Drip 10mg/2ml/hr infusing Lines: Urethral Catheter Regular catheter (Active) Site Assessment Clean;Skin intact 11/03/23829 Securement Method Securing device (Describe) 11/03/23829 Catheter secured to leg? Yes 11/03/23829 Catheter bag below bladder? Yes 11/03/23829 Has IUBC been removed? (If yes, ensure the order is discontinued.) No, monitoring hourly urine output in critically ill patient 11/03/23829 Critical Patient Need for Hourly Urine Outputs with IUBC Respiratory instability, unable to reposition due to pulmonary status 11/03/23829 IUBC Tubing Disconnected This Shift? No 11/03/23829 Collection Container Standard drainage 11/03/23829 Urine Description Clear;Yellow 11/03/23829 Output (mL) 550 mL 11/03/23 1610 Number of days: 2 Peripheral Line Right 20 Gauge (Active) Status Flushes easily 11/03/23 1600 Tubing Changed N/A 11/03/23 0845 Phlebitis Scale 0 11/03/23 0845 Infiltration Scale 0 11/03/23 0845 Site Description (Other) Without redness, swelling or drainage 11/03/23 0845 Site Intervention Flushed 11/03/23 0845 Dressing Assessment Dressing clean, dry, and intact;Transparent dressing 11/03/23 1100 Dressing Intervention Changed 11/03/23 1100 Number of days: 2 Peripheral Line Left Hand 22 Gauge (Active) Status Capped/Locked;Flushes easily 11/03/23 1600 Tubing Changed N/A 11/03/23 0845 Phlebitis Scale 0 11/03/23 0845 Infiltration Scale 0 11/03/23 0845 Site Description (Other) Without redness, swelling or drainage 04/05/24 0845 Site Intervention Flushed 11/03/23844 Dressing Assessment Dressing clean, dry, and intact 11/03/23844 Dressing Intervention None required 11/03/23844 Number of days: 1 Treatment: N/a Labs: Labs This Encounter COMPREHENSIVE METABOLIC PANEL - Abnormal; Notable for the following components: Result Value Ref Range BUN 53 6 - 20 mg/dL Creatinine 1.3 0.5 - 1.0 mg/dL Estimated Glomerular Filtration Rate 39 >=60 mL/min Sodium 128 135 - 146 mmol/L Chloride 90 98 - 107 mmol/L Albumin 3.3 3.8 - 5.0 g/dL AST 44 10 - 35 U/L Alkaline Phosphatase 140 35 - 130 U/L Bilirubin, Total 1.8 <=1.2 mg/dL All other components within normal limits BNP, NT-PRO - Abnormal; Notable for the following components: BNP, NT-Pro 13,549 <300 pg/mL All other components within normal limits Narrative: Exclude Heart Failure: <300 pg/mL Diagnose Heart Failure: Age <50 yr: >450 pg/mL 50-75 yr: >900 pg/mL >75 yr: >1800 pg/mL GFR is 30-59 mL/min: >1200 pg/mL or Age-adjusted values GFR <30 mL/min: do not use, not reliable Prognostic threshold: 1000 pg/mL TROPONIN T, HIGH SENSITIVITY - Abnormal; Notable for the following components: Troponin T, High Sensitivity 61 <=14 ng/L All other components within normal limits LACTATE, WHOLE BLOOD WITH REFLEX IF ABNORMAL - Abnormal; Notable for the following components: Lactate, Whole Blood 3.8 0.4 - 2.0 mmol/L All other components within normal limits BLOOD GAS, VENOUS - Abnormal; Notable for the following components: pH, Venous 7.438 7.320 - 7.430 units Base Excess, Venous 3.8 -2.0 - 2.0 mmol/L HGB 11.2 12.0 - 15.3 g/dL Carboxyhemoglobin, Whole Blood 1.6 <=1.5 % total Hgb All other components within normal limits CBC - Abnormal; Notable for the following components: WBC 10.87 4.00 - 10.80 K/uL HGB 9.5 12.0 - 15.3 g/dL HCT 31.2 36.0 - 45.2 % All other components within normal limits DIFFERENTIAL, TECHNOLOGIST REVIEW - Abnormal; Notable for the following components: WBC 10.87 4.00 - 10.80 K/uL Neutrophils % 82.0 40.0 - 75.0 % Lymphocytes % 12.0 18.0 - 42.0 % Absolute Neutrophils 8.91 1.80 - 7.70 K/uL All other components within normal limits TROPONIN T, HIGH SENSITIVITY - Abnormal; Notable for the following components: Troponin T, High Sensitivity 64 <=14 ng/L All other components within normal limits LACTATE, WHOLE BLOOD WITH REFLEX IF ABNORMAL - Abnormal; Notable for the following components: Lactate, Whole Blood 2.9 0.4 - 2.0 mmol/L All other components within normal limits RESPIRATORY PATHOGEN PANEL, PCR - Normal CBC WITH WBC DIFFERENTIAL Narrative: The following orders were created for panel order CBC WITH WBC DIFFERENTIAL. Procedure Abnormality Status --------- ------ CBC[[id number]] Abnormal Final result DIFFERENTIAL, AUTOMATED[[id number]] Final result DIFFERENTIAL, TECHNOLOGI...[[id number]] Abnormal Final result Please view results for these tests on the individual orders. DIFFERENTIAL, AUTOMATED EXTRA TUBES Narrative: The following orders were created for panel order EXTRA TUBES. Procedure Abnormality Status --------- ------ EXTRA LIGHT BLUE TOP[[id number]] Final result Please view results for these tests on the individual orders. EXTRA LIGHT BLUE TOP Diet: Orders Placed This Encounter Procedures Heart Healthy Diet : Sodium: 2 gm --- Fluid Restriction (ml): 1800 Additional Diet Information: BSG 204 at 1630 4U Novolog given. Had yanetbert at lunch. Prev BSG 120 lunch and 97breakfast Intake and Output: Intake/Output Summary (Last 24 hours) at 11/03/2023 1711 Last data filed at 11/03/2023 1710 Gross per 24 hour Intake 1377.78 ml Output 2100 ml Net -722.22 ml Patient Belongings and Home Medications Patient Belongings at Bedside Belongings at Bedside: Vision;Clothing;Dentures;Electronic devices (11/01/23 1520) Dentures: Uppers;Lowers (11/01/23 1520) Vision - Corrective Lenses: Glasses (11/01/23 1520) Clothing: Pants;Shirt;Footwear;Socks (11/01/23 152) Patient Electronics: Cell phone (11/01/23 152) Patient Belongings Sent Home (Does not apply to Ambulatory areas) Belongings Sent Home: None (11/01/23 152) Patient Belongings Sent to Safe/Locker Belongings Sent to Safe: None (11/01/23 152) Patient Medications Medications Brought by Patient?: No (11/01/231519) RECOMMENDATIONS: Consults not completed: coming to see Cardiology Anticipated tests/studies/procedures: n/a Medication Reconcilliation completed for this Transfer? Yes * Vikki Quinteros RN - 11/03/2023 4:32 PM EDT Time contacted:[id number] EMS agency: EMS Spoke to: Female Outcome: will dispatch when other crew is on way back from [facility] * Tania Harrison RN - 11/01/2023 5:08 PM EDT Dual Licensed Skin Assessment completed by Sophie Harrison RN and Sophie Myers RN . The patient is/has a N/A Skin Breakdown (includes non blanchable erythema): No documented in this encounter ED Notes * Yassine Nobles MD - 11/01/2023 12:38 PM EDT HISTORY OF PRESENT ILLNESS Maria Luisa Recinos is a 87 year old female who presents to the ED for evaluation of Short of Breath (Since this morning). The patient was seen at 11/01/23 1218. Patient is an 87-year-old female with history of AAA, heart failure, mild aortic stenosis, AFib on Eliquis, CAD, Graves disease, pulmonary hypertension, chronic respiratory failure on 3 L O2. Patient reports she has been sick since July when she started to require oxygen at baseline. This started with COVID infection followed by pneumonia followed by heart failure. She reports over the past 4 days or so she has had increased bilateral leg swelling followed by shortness of breath over the past day or two. Has gained 5 lb in 1-2 weeks.She takes 40 mg torsemide twice daily and an additional 10 mg with the 2nd dose as needed. Over the past 4 days she has had the additional 10 mg dose as well. She denies any abdominal distention or PND. Has slept in a recliner for quite some time. She had a cardiology appointment today with her daughter canceled and decided ED evaluation was better due to her symptoms after patient was evaluated by a home health nurse today. She was too weak and felt lightheaded and unable to get into her daughter's car to come to the ED today, prompting called EMS. EMS administered 1 SL nitroglycerin prior to arrival with mild improvement in shortness of breath. She denies any chest pain or pressure. Was admitted a month ago for heart failure exacerbation. Review of Systems Constitutional: Negative for chills and fever. HENT: Negative for congestion, rhinorrhea and sore throat. Respiratory: Positive for shortness of breath. Negative for cough. Cardiovascular: Positive for leg swelling. Negative for chest pain and palpitations. Gastrointestinal: Negative for abdominal distention, abdominal pain, nausea and vomiting. Genitourinary: Negative for difficulty urinating and dysuria. Musculoskeletal: Negative for back pain. Skin: Negative for color change. Neurological: Positive for weakness and light-headedness. The patient's allergies, past history, and medications were reviewed. PHYSICAL EXAM Initial Vitals (see all): BP 90/65 | Pulse 85 | Resp 18 | Temp 98.8 | O2 100 %, Room Air, None | Weight 86.5 kg | Height 154.9 cm | BMI 36.03 kg/m2 Initial Pain Assessment (see all): 0 (no pain)/10 ([facility] Adult Scale 0-10) Physical Exam Vitals and nursing note reviewed. Constitutional: General: She is not in acute distress. Appearance: Normal appearance. She is normal weight. She is not ill-appearing. HENT: Head: Normocephalic and atraumatic. Eyes: Conjunctiva/sclera: Conjunctivae normal. Cardiovascular: Rate and Rhythm: Normal rate. Rhythm irregular. Pulses: Normal pulses. Heart sounds: No murmur heard. Pulmonary: Effort: Pulmonary effort is normal. Tachypnea present. Breath sounds: Examination of the right-lower field reveals rales. Examination of the left-lower field reveals rales. Rales present. Abdominal: General: Bowel sounds are normal. Tenderness: There is no abdominal tenderness. Musculoskeletal: General: Normal range of motion. Cervical back: Normal range of motion and neck supple. Right lower leg: Edema (+2 to knees) present. Left lower leg: Edema (+2 to knees) present. Skin: General: Skin is warm and dry. Capillary Refill: Capillary refill takes less than 2 seconds. Neurological: Mental Status: She is alert. Mental status is at baseline. Psychiatric: Mood and Affect: Mood normal. Behavior: Behavior normal. PROCEDURES AND TREATMENTS ED Orders | ED Results MEDICAL DECISION MAKING Nursing notes and vital signs were reviewed. ED consults were placed. ED Course as of 11/01/23 1631 MonNov 01, 2023 1307 EKG per my interpretation shows atrial fibrillation with a rate of 77 bpm. Normal axis intervals. There are T-wave inversions in 1, aVL which were also present on prior EKG 10/03/23. [AG] 1325 Weight is up 13 lb from discharge on 10/04 after CHF admission. [AG] 1330 WBC(!): 10.87 Mild leukocytosis [AG] 1330 HGB(!): 9.5 Mild anemia with 1 g drop in hemoglobin over the past week [AG] 1330 Lactate, Whole Blood(!): 3.8 Moderate lactic acidosis [AG] 1330 BNP, NT-Pro(!): 13,549 Markedly elevated, mildly increased from last month [AG] 1331 Troponin T, High Sensitivity(!): 61 Moderate elevation compared to prior in the setting of acute heart failure exacerbation, will repeat to trend [AG] 1357 Respiratory Pathogen Panel, PCR Negative [AG] 1358 Chest x-ray per my interpretation shows cardiomegaly and pulmonary edema with chronic fibroticchanges bilaterally. [AG] 1421 Troponin T, High Sensitivity(!): 64 Generally flat [AG] 1421 Creatinine(!): 1.3 Renal function at baseline [AG] 1438 Sodium(!): 128 Chronic hyponatremia present [AG] 1438 Chloride(!): 90 Chronic hypochloremia present [AG] 1438 Bilirubin, Total(!): 1.8 Chronically elevated, LFTs otherwise nonobstructive [AG] 1454 Lactate, Whole Blood(!): 2.9 Mild clearance from 3.8 [AG] ED Course User Index [AG] Tania Garcia PA-C Upon arrival to the ED, vitals were unremarkable. History and physical exam as above. Lab work showed moderate lactic acidosis, elevated/flat high sensitivity troponins, elevated proBNP. Chest x-ray showed cardiomegaly and pulmonary edema present. Patient was given 40 mg IV Lasix for diuresis. A Lidoderm patch was applied as patient reported chronic back pain. Clinical presentation and workup most consistent with acute heart failure exacerbation. Patient was recommended for admission and accepted by [facility] hospitalist service. Patient was agreeable to plan of care. Amount and/or Complexity of Data Reviewed Labs: ordered. Decision-making details documented in ED Course. Radiology: ordered. ECG/medicine tests: ordered. Risk OTC drugs. Prescription drug management. Decision regarding hospitalization. Clinical Impressions Heart failure, systolic and diastolic, acute on chronic (HCC) Disposition Admitted. I discussed the management of this patient with the admitting provider and I made a decision to admit the patient. Admission Order Ordered Status . 11/01/23 1459 Assign to Observation ONCE Completed Yassine Nobles was the attending physician who supervised the care of this patient. Tania Garcia PA-C ATTENDING ATTESTATION I was readily available and reviewed care of this patient. I was available for immediate [id number] consultation and assistance. I have reviewed the care of the patient with the provider listed above. * Jennifer Stoll RN - 11/01/2023 12:18 PM EDT Patient brought in by EMS after having SOB this morning, too SOB to go to cardiology appointment today. discharged form rehab x 2 weeks ago, HTN for EMS, 92% on 3L at baseline, increased to 4L PER EMS 96% for them Daughter stated patient gained 5 lbs over 2 weeks now. Pitting edema on b/l lower legs. 20 right hand 1 sublingual nitro for HTN, CHF. Daughter stated she has given patient her extra torsemide the last 4 days due to increased swellingin her ankles. Home health nurse came in this am before going to activities officer appointment in [facility] and noted fluid in her lungs this morning. documented in this encounter Miscellaneous Notes * Ancillary Progress Note - Imani Harris BSW - 11/03/2023 12:19 PM EDT CARE MANAGEMENT - ADULT DISCHARGE NOTE [facility] [address] [facility] [id number] Name: Maria Luisa Recinos Location: [address] Date: 11/03/2023 Time: 12:19 PM The following coordination of care and discharge plan has been coordinated with the care team, patient, family and/or caregiver according to the patients needs and preferences. Discharge Discharge Second Notice Important Message from Medicare delivered: No (11/03/231215) Discharge Transportation: BLS (11/03/23 121) Date of scheduled discharge transportation: 11/03/23 (11/03/23 121) Time of scheduled discharge transportation: 1600 (11/03/23 121) Patient declined post-hospital transition of care recommendation: N/A (11/03/231215) Final Discharge Plan (Complete only at time of Discharge): Other (Transfer to higher [facility]) () Per discussion with Hospitalist, pt is slated to transfer to [facility] this date forfurther medical care. Pt is expected to resume home health with [facility] whereas pt received SN/PT. Pt is expected to resume home DME of Cane/RW/SC/Bed rails upon DC. Pt is expected to resume home oxygen provided by [facility] upon DC. Pt is aware of the DC plans and is in agreement with same. The Tx Team has identified no new needs for automotive service writer to arrange. Commercial Attorney will continue to follow for any additional DC needs not yet identified. * Respiratory Progress Note - Krystle Cordova, HYDRO GENERATION SUPERVISOR - 11/03/2023 7:26 AM EDT PDP RE-EVALUATION NOTE - Respiratory Care Services [facility] [id number] [facility] [address] Name: Maria Luisa Recinos Location: [place] [address] CCU- Date: 11/03/2023 Time: 7:30 AM Patient Driven Protocol Summary: Re-evaluation . This Treatment Plan and medications will be reviewed by the Primary Care Team for any contraindications. Respiratory Care Treatment Plan Aerosol Therapy Treatment:: Hand Held Nebulizer Tx PRN with Albuterol Sulfate: Unit dose 0.083%. to reduce work of breathing and improve pulmonary gas exchange. Additional Aerosolized Treatments: Inhaler(s) QDAY with Breo Ellipta (Fluticasone furoate 100 mcg and Vilanterol 25 mcg inhalation powder) / 1 inhalation. to suppress bronchial inflammation and edema by the use of systemic steroid sparing therapy. .. The patient will be re-evaluated: No re-evaluation [...] No Surgical History Chest X-Ray: 1 - Chronic Changes or CHF Assessment Score: 4 Patient Assessment Clinical Findings Respiratory Pattern: 0 - RR 12 - 20; Patient only gets breathless with strenuous exercise. Breath Sounds: 2 - Diminished bilaterally Cough Effectiveness: 0 - Strong non-productive Sputum Production 0 - No sputum production Level of Activity: 1 - Ambulatory with assist O2 needed to keep SpO2 greater than or equal to 92%: 1 - Oxygen 1-3 LPM or FiO2 less than 35% Assessment Score: 4 Total Assessment Score: 8 Breath Sounds: Inspiratory and expiratory diminished bilaterally.. Cough and Sputum: A loose cough produced no sputum... Vital Signs: Resp: 20 (11/03/23720) Pulse: 73 (11/03/23720) Temp: 36.5 C (97.7 F) (11/02/231999) BP: 122/85 (11/03/23 06) SpO2: 100 % (11/03/23720) Primary Service: Hospitalists. 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 * Care Plan - Piper Freeman RN - 11/03/2023 4:39 AM EDT Clinical Goal(s): pt will have adequate urine output via laws catheter this shift (11/02/23 1900) Possible barriers to meeting goal(s)/advancing plan of care: risk for impaired urinary elimination Stability of the patient: Moderately stable - low risk of patient condition declining or worsening Summary regarding today's goal(s): Met: Recommendations: continue laws catheter and continue to monitor I/O * Care Plan - Richard Fish RN - 11/02/2023 6:06 PM EDT Clinical Goal(s): Patient o2 sat will remain greater than 93% during this shift. (patient o2 sat will remain greater than 93% during this shift.) (11/02/23 1500) Possible barriers to meeting goal(s)/advancing plan of care: Heart failure, generalized weakness. Stability of the patient: Moderately stable - low risk of patient condition declining or worsening Summary regarding today's goal(s): Met: Goal Met Recommendations: Continue with lasix therapy. * Ancillary Progress Note - Imani Harris BSW - 11/02/2023 11:50 AM EDT CARE MANAGEMENT - ADULT INITIAL SCREENING [place] [address] [facility] [address] Name: Maria Luisa Recinos Location: [place] [address] CCU- Date: 11/02/2023 Time: 11:50 AM Discussed patient with the interdisciplinary care team. This Well Drill Operator Cable Tool performed a chart review and met with patient at bedside to complete admission screen and assessed needs for transition planning. The vp care management role and services were explained and emotional support was provided. Chief Complaint: Short of Breath (Since this morning) Pts medical decision maker has been identified a being daughter, Betty who is involved in her care. Per review of the medical record, pt has no admitting MH Dx. Pts primary pharmacy has been identified as being [facility] in [place]. Pt describes having an intact family support system, lives alone with daughter who is a few blocks away and son who lives next door. Pt denies any prior Hx of Substance abuse. Pt denies difficulty completing her ADLs prior to admission. Pt reports to being able to read/write. Pt reports daughter manages her medications prior to admission. Pt reports home DME of Cane/RW/SC/Bed rails and is expected to resume upon DC. Pt reports home oxygen provided by [facility] prior to admission and is expected to resume upon DC. Pt is active with [facility] prior to admission and is expected to resume upon DC. Pt reports she is able to cook and do her own ADL's prior to admission. Prior Living Arrangements What was your living situation prior to admission/observation?: Independently;Alone (11/02/23854) Living Quarters: House (11/02/23 1002) Number of steps to enter living quarters:: 2 steps (11/02/23 1002) History of falling: No (11/02/23 0800) Prior Level of Functioning Describe the patient's ability prior to admission/observation to perform ADLs: Requires assistance (11/02/23854) Requires assistance with: Bathing (11/02/23854) Describe the patient's mobility status prior to admission: Patient requires assistance with ambulation;Patient ambulates independently (11/02/23854) Patient uses assistive device: Yes (11/02/23854) If yes, choose:: Walker (11/02/23 0855) Caregiver Information Patient Contacts Name Relation Home Work Mobile Betty Price Adult Child [phone] Juan Pablo Recinos Adult Child [phone] Risk Stratification/Psychosocial/Care Gaps Risk Stratification Psycho Social / Medical Concerns Identified: Adjustment to illness/injury;Multiple Comorbidities (11/02/23 1002) Accessed Neighborly to connect patients to social care resources: No (11/02/23 1002) OBRA or OPTIONS needed for placement: No (11/02/23 1002) Readmission Risk Score: 40.88 (11/02/23 08) AM-PAC Score With Stairs : 17 (11/02/23 08) Prior to Admission Services Services Prior to Admission NETWORK PROGRAMMER Services (Services received within the last 30 days with exception, Psych within last two years): Home Health;Durable Medical Equipment (11/02/23 114) List All Provider/Service Name: [facility] (11/02/23 114) Agency contacted: No (11/02/23 114) NETWORK PROGRAMMER Durable Medical Equipment (DME) in home: Cane;Shower chair/bench;Walker Rolling;Other - Comment(bed rails) (11/02/23 114) DME Name: N/A (11/02/23 114) NETWORK PROGRAMMER Transportation (Services received within the last 30 days): Family/Friends Personal Vehicle (11/02/23 114) Outpatient Well Drill Operator Cable Tool: No care count team clerk to display Patient/Family Expectations: Return home. Tentative DC plan: Once deemed Medically appropriate, it's anticipated pt will DC home pending continued Medical workup/evaluations and findings. Pt is expected to resume home health with [facility] whereas pt received SN/PT. Pt is expected to resume home DME of Cane/RW/SC/Bed rails upon DC. Pt is expected to resume home oxygen provided by [facility] upon DC. The Tx Team will meet daily in order to discuss DC planning/needs. Commercial Attorney will continue to follow for any identified needs and/or concerns which may arise. For further screening information, please refer to the Care Management flow document. * Care Plan - Libby Duffy RN - 11/02/2023 6:46 AM EDT Clinical Goal(s): Patient's O2 sat will remain > 90% this shift. (11/01/23 2300) Possible barriers to meeting goal(s)/advancing plan of care: CHF Stability of the patient: Moderately stable - low risk of patient condition declining or worsening Summary regarding today's goal(s): Met: Patient's O2 sat has remained > 90% this shift on her oxygen @ 3L/min via N/C, which is herbaseline that she wears @ home. Recommendations: Continue to monitor O2 sat and resp status. Continue oxygen and Lasix as ordered. * Care Plan - Libby Duffy RN - 11/01/2023 11:45 PM EDT Clinical Goal(s): Patient's O2 sat will be > 90% this shift. (11/01/23 1900) Possible barriers to meeting goal(s)/advancing plan of care: CHF Stability of the patient: Moderately stable - low risk of patient condition declining or worsening Summary regarding today's goal(s): Met: Patient has been taken off Bipap and resumed her N/C @ 3L/min as she wears @ home. Recommendations: Continue oxygen as ordered and Lasix drip as ordered. * Care Plan - Richard Fish RN - 11/01/2023 7:53 PM EDT Clinical Goal(s): Patients 02 sat will remain greater than 92 %. (11/01/23 1525) Possible barriers to meeting goal(s)/advancing plan of care: Heart failure, generalized weakness. Stability of the patient: Moderately stable - low risk of patient condition declining or worsening Summary regarding today's goal(s): Met: Goal met Recommendations: Continue with bipap and lasix drip. * Ancillary Progress Note - Alejandra Linn, HYDRO GENERATION SUPERVISOR - 11/01/2023 4:56 PM EDT PATIENT DRIVEN PROTOCOL - Respiratory Care Services [address] [address] Name: Maria Luisa Recinos Location: [place] [address] CCU- Date: 11/01/2023 Time: 4:56 PM Patient Driven Protocol Summary: Initial evaluation performed. This Treatment Plan and medications will be reviewed by the Primary Care Team for any contraindications. Respiratory Care Treatment Plan Aerosol Therapy Treatment:: Hand Held Nebulizer Tx PRN with Albuterol Sulfate: Unit dose 0.083%. to reduce work of breathing and improve pulmonary gas exchange. Additional Aerosolized Treatments: Inhaler(s) QDAY with Breo Ellipta (Fluticasone furoate 100 mcg and Vilanterol 25 mcg inhalation powder) / 1 inhalation. to suppress bronchial inflammation and edema by the use of systemic steroid sparing therapy. . The patient will be re-evaluated: within 24 hours. The Triage Level is: (Assessment Score = 16-20) Level 2. Triage Level Definitions: Level 1 Severe Respiratory/Airway [...] Medical Record Assessment Clinical Findings Pulmonary Status: 4 - Severe or chronic with exacerbation, or 3 or more fractured ribs Surgical Status: 0 - No Surgical History Chest X-Ray: 1 - Chronic Changes or CHF Assessment Score: 5 Patient Assessment Clinical Findings Respiratory Pattern: 1 - RR 21 - 25; Patient gets short of breath when hurrying on level ground or walking up a slight hill. Breath Sounds: 3 - Crackles, mild wheezes, coarse bronchial, upper airway noises Cough Effectiveness: 1 - Strong productive Sputum Production: 2 - Small amount Level of Activity: 2 - Temporarily non-ambulatory O2 needed to keep SpO2 greater than or equal to 92%: 2 - Oxygen 4-6 LPM or FiO2 35-50% Assessment Score: 11 Total Assessment Score: 16 Breath Sounds: Inspiratory and Mild diminished and crackles bilaterally.. Cough and Sputum: An effective cough produced small amount of thick brown sputum.. CXR: IMPRESSION: Abnormal aeration. Findings may be consistent with pulmonary edema versus chronic fibrotic change or viral process. Recommend follow-up. . Vital Signs: Resp: 16 (11/01/23 1520) Pulse: 76 (11/01/23 1545) Temp: 36.3 C (97.3 F) (11/01/23 1520) BP: 98/63 (11/01/23 1520) SpO2: 99 % (11/01/23 1605) Primary Service: Hospitalists. 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 Prescriptions/Home Medications/Durable Medical Equipment: QDay Breo, continuous oxygen at 3LPM NC. Recommended New home medications/durable medical equipment/outpatient pulmonary/sleep referral tbd. * Communication - Dione Smith RN - 11/01/2023 3:03 PM EDT Hand-Off - Nurse Communication Note Name: Maria Luisa Recinos Location: Date: 11/01/2023 Time: 3:03 PM Nurse giving report: Dione Smith RN Nurse receiving report: Reason for SBAR handoff: Admission Immediate Concerns: CHF exacerbation SITUATION: Admission date: 11/01/2023 Chief Complaint: Short of Breath (Since this morning) Admitting diagnosis: Heart failure, systolic and diastolic, acute on chronic (HCC) Patient Service: Hospitalists [[id number]] Level of Care: Med Surg [3] Attending Provider: Meera Thompson MD Coming From:home BACKGROUND: Primary Care Physician: Jeanna Bal PA-C Past Medical History: Diagnosis Date AAA (abdominal [...] exposure Severe tricuspid regurgitation Supplemental oxygen dependent Patient Compliant: Yes Code Status: Prior Allergies: Amoxicillin, Gatifloxacin, and Latex Problem list: Active Problems: * No active hospital problems. * Resolved Problems: * No resolved hospital problems. * Activity: bedrest Fall Risk or Safety Concerns: None Isolation: None Isolation flowsheet: ASSESSMENT: Vital Signs: BP: 112/72 (11/01/23 1500) Temp: 37.1 C (98.8 F) (11/01/23 1220) Pulse: 78 (11/01/23 1500) Resp: 14 (11/01/23 1500) SpO2: 100 % (11/01/23 1500) Weight: 91.2 kg (201 lb 1 oz) (11/01/23 1220) Pain Assessment Flowsheet Row Most Recent Value Pain Assessment Scale [facility] Adult Scale 0-10 Pain Score 0 (no pain) Fall Scale: Fall Score: 45 (11/01/23 122) Fall Interventions: Bed at low level;Floor free of clutter;Non-skid foot covering on (11/01/23 122) Neurological: Angie Coma Scale Eyes Open: Spontaneous (11/01/23 1228) Best Verbal Response: Verbally appropriate for age (11/01/23 1228) Best Motor Response: Obeys commands appropriate for age (11/01/23 1228) Coma Score: 15 (11/01/23 1228) Additional Neurological Information: Respiratory: Respiratory WNL: X - Exceptions to WNL as documented below (11/01/23 122) Cough: Non-Productive (11/01/23 122) Depth/Rhythm: Regular (11/01/23 1227) Dyspnea Occurance: At Rest (11/01/23 1227) Effort: Labored (11/01/23 1227) Effort Characteristics: Abdominal Muscle Use (11/01/23 122) Additional Respiratory Information: Cardiac: Rhythm: Regular;NSR (11/01/23 1334) Extremities: +Sensation;Right;Left;Upper;Lower (11/01/23 1334) Pulses Right: Radial + (11/01/23 1334) Pulses Left: Radial + (11/01/23 1334) Edema Location: Lower extremities (11/01/23 1334) Edema Assessment: +2 - Description (11/01/23 1334) Capillary Refill: 2 sec (11/01/23 1228) Additional Cardiac Information: GI/: Abdomen: Soft;Non-distended (11/01/23 122) Additional GI/ Information: Integumentary: Skin Description: Warm;Dry (11/01/23 1228) Skin Color: Flesh Tone (11/01/23 122) Additional Integumentary Information: Restraints: No orders of the defined types were placed in this encounter. Medications: Lines: Peripheral Line Right 20 Gauge (Active) Number of days: 0 Treatment: Labs: Labs This Encounter COMPREHENSIVE METABOLIC PANEL - Abnormal; Notable for the following components: Result Value Ref Range BUN 53 6 - 20 mg/dL Creatinine 1.3 0.5 - 1.0 mg/dL Estimated Glomerular Filtration Rate 39 >=60 mL/min Sodium 128 135 - 146 mmol/L Chloride 90 98 - 107 mmol/L Albumin 3.3 3.8 - 5.0 g/dL AST 44 10 - 35 U/L Alkaline Phosphatase 140 35 - 130 U/L Bilirubin, Total 1.8 <=1.2 mg/dL All other components within normal limits BNP, NT-PRO - Abnormal; Notable for the following components: BNP, NT-Pro 13,549 <300 pg/mL All other components within normal limits Narrative: Exclude Heart Failure: <300 pg/mL Diagnose Heart Failure: Age <50 yr: >450 pg/mL 50-75 yr: >900 pg/mL >75 yr: >1800 pg/mL GFR is 30-59 mL/min: >1200 pg/mL or Age-adjusted values GFR <30 mL/min: do not use, not reliable Prognostic threshold: 1000 pg/mL TROPONIN T, HIGH SENSITIVITY - Abnormal; Notable for the following components: Troponin T, High Sensitivity 61 <=14 ng/L All other components within normal limits LACTATE, WHOLE BLOOD WITH REFLEX IF ABNORMAL - Abnormal; Notable for the following components: Lactate, Whole Blood 3.8 0.4 - 2.0 mmol/L All other components within normal limits BLOOD GAS, VENOUS - Abnormal; Notable for the following components: pH, Venous 7.438 7.320 - 7.430 units Base Excess, Venous 3.8 -2.0 - 2.0 mmol/L HGB 11.2 12.0 - 15.3 g/dL Carboxyhemoglobin, Whole Blood 1.6 <=1.5 % total Hgb All other components within normal limits CBC - Abnormal; Notable for the following components: WBC 10.87 4.00 - 10.80 K/uL HGB 9.5 12.0 - 15.3 g/dL HCT 31.2 36.0 - 45.2 % All other components within normal limits DIFFERENTIAL, TECHNOLOGIST REVIEW - Abnormal; Notable for the following components: WBC 10.87 4.00 - 10.80 K/uL Neutrophils % 82.0 40.0 - 75.0 % Lymphocytes % 12.0 18.0 - 42.0 % Absolute Neutrophils 8.91 1.80 - 7.70 K/uL All other components within normal limits TROPONIN T, HIGH SENSITIVITY - Abnormal; Notable for the following components: Troponin T, High Sensitivity 64 <=14 ng/L All other components within normal limits LACTATE, WHOLE BLOOD WITH REFLEX IF ABNORMAL - Abnormal; Notable for the following components: Lactate, Whole Blood 2.9 0.4 - 2.0 mmol/L All other components within normal limits RESPIRATORY PATHOGEN PANEL, PCR - Normal CBC WITH WBC DIFFERENTIAL Narrative: The following orders were created for panel order CBC WITH WBC DIFFERENTIAL. Procedure Abnormality Status --------- ------ CBC[[id number]] Abnormal Final result DIFFERENTIAL, AUTOMATED[[id number]] Final result DIFFERENTIAL, TECHNOLOGI...[[id number]] Abnormal Final result Please view results for these tests on the individual orders. DIFFERENTIAL, AUTOMATED EXTRA TUBES Narrative: The following orders were created for panel order EXTRA TUBES. Procedure Abnormality Status --------- ------ EXTRA LIGHT BLUE TOP[[id number]] Final result Please view results for these tests on the individual orders. EXTRA LIGHT BLUE TOP URINALYSIS WITH MICROSCOPIC EXAM Diet: No orders of the defined types were placed in this encounter. Additional Diet Information: Intake and Output: No intake or output data in the 24 hours ending 11/01/23 1503 Patient Belongings and Home Medications Patient Belongings at Bedside Belongings at Bedside: Clothing (11/01/23 1227) Clothing: Pants;Shirt;Sweater;Footwear (11/01/23 1227) Patient Belongings Sent Home (Does not apply to Ambulatory areas) Belongings Sent Home: None (11/01/23 1227) Patient Belongings Sent to Safe/Locker Belongings Sent to Safe: None (11/01/231226) Patient Medications Medications Brought by Patient?: No (11/01/231226) RECOMMENDATIONS: Consults not completed: Anticipated tests/studies/procedures: Medication Reconcilliation completed for this Admission? Yes documented in this encounter Plan of Treatment Upcoming Encounters Date Type Department Care Team (Late st Contact Info) Description 11/07/2023 8:30 AM EDT Telemedicine Pulmonary Medicine, [facility] [address] [place] [address] Yocasta Proctor CRNP [address] [place] [address] 11/24/2023 10:30 AM EDT Office Visit Cardiology, [facility] [address] [facility] [place] [address] Jennifer Queen PA-C [address] [facility] [place] [address] 12/13/2023 10:00 AM EDT Office Visit Gastroenterology, [facility] [address] [facility] [place] [address] Trenton Cameron CRNP [address] [facility] [place] [address] 02/20/2024 2:20 PM EDT Office Visit Nephrology, [facility] [address] [place] [address] Jef Kaminski MD [address] [place] [address] Scheduled Orders Name Type Priority Associated Diagnoses Orde r Schedule EKG EKG STAT Perform Now fo r 1 Occurrences starting 11/01/2023 until 11/01/2023 Health Maintenance Due Date Last Done Comments [...] Comments GLUCOSE METER, POINT OF CARE SANDI 11/03/2023 4:25 PM EDT GLUCOSE METER, POINT OF CARE SANDI 11/03/2023 11:29 AM EDT GLUCOSE METER, POINT OF CARE SANDI 11/03/2023 7:43 AM EDT HEMOGLOBIN A1C Routine 11/03/2023 5:30 AM EDT COMPREHENSIVE METABOLIC PANEL Routine 11/03/2023 5:30 AM EDT PHOSPHORUS Routine 11/03/2023 5:30 AM EDT CBC Routine 11/03/2023 5:30 AM EDT MAGNESIUM Routine 11/03/2023 5:30 AM EDT GLUCOSE METER, POINT OF CARE SANDI 11/02/2023 8:10 PM EDT GLUCOSE METER, POINT OF CARE SANDI 11/02/2023 4:39 PM EDT TYPE AND SCREEN Routine 11/02/2023 1:48 PM EDT TROPONIN T, HIGH SENSITIVITY Routine 11/02/2023 11:52 AM EDT ECHO, COMPLETE (2D), TRANS-THORACIC Routine 11/02/2023 10:30 AM EDT Heart failure (HCC) US ABDOMEN LIMITED Routine 11/02/2023 8: 13 AM EDT TROPONIN T, HIGH SENSITIVITY Routine 11/02/2023 5:46 AM EDT BASIC METABOLIC PANEL Routine 11/02/2023 5:46 AM EDT PHOSPHORUS Routine 11/02/2023 5:46 AM EDT CBC Routine 11/02/2023 5:46 AM EDT MAGNESIUM Routine 11/02/2023 5:46 AM EDT TROPONIN T, HIGH SENSITIVITY Routine 11/02/2023 2:10 AM EDT BLOOD GAS, ARTERIAL STAT 11/01/2023 8 :14 PM EDT TROPONIN T, HIGH SENSITIVITY Routine 11/01/2023 5:40 PM EDT LACTATE,WHOLE BLOOD STAT 11/01/2023 5 :40 PM EDT LACTATE, WHOLE BLOOD WITH REFLEX IF ABNORMAL STAT 11/01/2023 2:40 PM EDT URINALYSIS WITH MICROSCOPIC EXAM STAT 11/01/2023 2:40 PM EDT TROPONIN T, HIGH SENSITIVITY STAT 11/01/2023 1:36 PM EDT COMPREHENSIVE METABOLIC PANEL STAT 11/01/2023 1:36 PM EDT XR CHEST 2 VIEWS STAT 11/01/2023 12:5 7 PM EDT LACTATE, WHOLE BLOOD WITH REFLEX IF ABNORMAL STAT 11/01/2023 12:32 PM EDT EXTRA LIGHT BLUE TOP Routine 11/01/2023 12:32 PM EDT EXTRA TUBES Routine 11/01/2023 12:32 PM EDT DIFFERENTIAL, AUTOMATED STAT 11/01/2023 12:32 PM EDT TROPONIN T, HIGH SENSITIVITY STAT 11/01/2023 12:32 PM EDT RESPIRATORY PATHOGEN PANEL, PCR STAT 11/01/2023 12:32 PM EDT BLOOD GAS, VENOUS STAT 11/01/2023 12: 32 PM EDT BNP (NT-PROBNP) STAT 11/01/2023 12:32 PM EDT CBC STAT 11/01/2023 12:32 PM EDT CBC STAT 11/01/2023 12:32 PM EDT DIFFERENTIAL, TECHNOLOGIST REVIEW Routine 11/01/2023 12:32 PM EDT documented in this encounter Results * (ABNORMAL) GLUCOSE METER, POINT OF CARE (11/03/2023 4:25 PM EDT) [facility] Glucose Meter 204(H) 70 - 120 mg/dL 11/03/2023 4:30 PM EDT LABORATORY [facility] Blood Whole blood specimen / Unknown 11/03/2023 4:25 PM EDT 11/03/2023 4:30 PM EDT Meera Thompson MD LAB POINT OF CARE TE ST DOCKED DEVICE UNSOLICITED RESULTS Performing Organization Address [facility] Co de Phone Number LABORATORY [address] [address] * GLUCOSE METER, POINT OF CARE (11/03/2023 11:29 AM EDT) Glucose Meter 120 70 - 120 mg/dL 11/03/2023 11:31 AM EDT LABORATORY [facility] Blood Whole blood specimen / Unknown 11/03/2023 11:29 AM EDT 11/03/2023 11:31 AM EDT Meera Thompson MD LAB POINT OF CARE TE ST DOCKED DEVICE UNSOLICITED RESULTS Performing Organization Address [facility] Co de Phone Number LABORATORY [address] [phone] * GLUCOSE METER, POINT OF CARE (11/03/2023 7:43 AM EDT) Glucose Meter 97 70 - 120 mg/dL 11/03/2023 7:50 AM EDT LABORATORY [facility] Blood Whole blood specimen / Unknown 11/03/2023 7:43 AM EDT 11/03/2023 7:50 AM EDT Meera Thompson MD LAB POINT OF CARE TE ST DOCKED DEVICE UNSOLICITED RESULTS Performing Organization Address [facility] de Phone Number LABORATORY [address] [phone] * (ABNORMAL) COMPREHENSIVE METABOLIC PANEL (11/03/2023 5:30 AM EDT) BUN 55(H) 6 - 20 mg/dL 11/03/2023 6:16 AM EDT LABORATORY [facility] Creatinine 1.5(H) 0.5 - 1.0 mg/dL 11/03/2023 6:16 AM EDT LABORATORY [facility] Estimated Glomerular Filtration Rate 35(L) >=60 mL/min 11/03/2023 6:16 AM EDT LABORATORY [facility] Comment:eGFR is calculated b ased on the CKD-EPI 2020 equation Sodium 134(L) 135 - 146 mmol/L 11/03/2023 6:16 AM EDT LABORATORY [facility] Potassium 4.9 3.5 - 5.1 mmol/L 11/03/2023 6:16 AM EDT LABORATORY [facility] Chloride 96(L) 98 - 107 mmol/L 11/03/2023 6:16 AM EDT LABORATORY [facility] CO2 25 22 - 32 mmol/L 11/03/2023 6:16 AM EDT LABORATORY [facility] Anion Gap 13 7 - 15 mmol/L 11/03/2023 6:16 AM EDT LABORATORY [facility] Glucose 91 70 - 120 mg/dL 11/03/2023 6:16 AM EDT LABORATORY [facility] Albumin 3.3(L) 3.8 - 5.0 g/dL 11/03/2023 6:16 AM EDT LABORATORY [facility] AST 44(H) 10 - 35 U/L 11/03/2023 6:16 AM EDT LABORATORY [facility] Alkaline Phosphatase 161(H) 35 - 130 U/L 11/03/2023 6:16 AM EDT LABORATORY [facility] Bilirubin, Total 1.8(H) <=1.2 mg/dL 11/03/2023 6:16 AM EDT LABORATORY [facility] Calcium 9.0 8.4 - 10.2 mg/dL 11/03/2023 6:16 AM EDT LABORATORY [facility] Protein 7.1 6.0 - 8.3 g/dL 11/03/2023 6:16 AM EDT LABORATORY [facility] ALT 27 10 - 35 U/L 11/03/2023 6:16 AM EDT LABORATORY [facility] Blood Venous blood specimen / Unknown Venipuncture / Unknown 11/03/2023 5:30 AM EDT 11/03/2023 5:50 AM EDT Meera Thompson MD LAB BLOOD ORDERABLES LABORATORY [address] [address] * PHOSPHORUS (11/03/2023 5:30 AM EDT) Phosphorus 3.6 2.5 - 4.8 mg/dL 11/03/2023 6:16 AM EDT LABORATORY [facility] Blood Venous blood specimen / Unknown Venipuncture / Unknown 11/03/2023 5:30 AM EDT 11/03/2023 5:50 AM EDT Meera Thompson MD LAB BLOOD ORDERABLES Performing Organization Address [facility]/ZIP Co de Phone Number LABORATORY [address] [phone] * MAGNESIUM (11/03/2023 5:30 AM EDT) Magnesium 2.4 1.5 - 2.6 mg/dL 11/03/2023 6:16 AM EDT LABORATORY [facility] Blood Venous blood specimen / Unknown Venipuncture / Unknown 11/03/2023 5:30 AM EDT 11/03/2023 5:50 AM EDT Meera Thompson MD LAB BLOOD ORDERABLES Performing Organization Address [facility]/ZIP Co de Phone Number LABORATORY [address] [phone] * (ABNORMAL) CBC (11/03/2023 5:30 AM EDT) Pathologist [facility] WBC 9.69 4.00 - 10.80 K/uL 11/03/2023 5:57 AM EDT LABORATORY [facility] RBC 3.34 3.85 - 5.15 M/uL 11/03/2023 5:57 AM EDT LABORATORY [facility] HGB 9.1(L) 12.0 - 15.3 g/dL 11/03/2023 5:57 AM EDT LABORATORY [facility] HCT 30.3(L) 36.0 - 45.2 % 11/03/2023 5:57 AM EDT LABORATORY [facility] MCV 90.7 81.5 - 97.5 fL 11/03/2023 5:57 AM EDT LABORATORY [facility] MCH 27.2 27.0 - 34.0 pg 11/03/2023 5:57 AM EDT LABORATORY [facility] MCHC 30.0 32.0 - 36.0 g/dL 11/03/2023 5:57 AM EDT LABORATORY [facility] RDW 16.5 11.5 - 15.5 % 11/03/2023 5:57 AM EDT LABORATORY [facility] PLT 305 140 - 400 K/uL 11/03/2023 5:57 AM EDT LABORATORY [facility] MPV 9.3 6.6 - 11.1 fL 11/03/2023 5:57 AM EDT LABORATORY [facility] Blood Venous blood specimen / Unknown Venipuncture / Unknown 11/03/2023 5:30 AM EDT 11/03/2023 5:50 AM EDT Meera Thompson MD LAB BLOOD ORDERABLES Performing Organization Address City/[facility]/ZIP Co de Phone Number LABORATORY [facility] [address] [place] [address] * (ABNORMAL) HEMOGLOBIN A1C (11/03/2023 5:30 AM EDT) Hemoglobin A1C 5.9(H) 4.0 - 5.6 % 11/03/2023 11:56 AM EDT LABORATORY [facility] Comment:The use of HbA1c to monitor glycemic status is based on normal hemoglobin and HbA composition. This test should not be used in patients with abnormal hemoglobin that affects the half life of the red blood cell or the in vivo glycation rates. Estimated Average Glucose 123 <126 mg/dL 11/03/2023 11:56 AM EDT LABORATORY [facility] Blood Venous blood specimen / Unknown Venipuncture / Unknown 11/03/2023 5:30 AM EDT 11/03/2023 5:50 AM EDT Meera Thompson MD LAB BLOOD ORDERABLES LABORATORY [facility] [address] [place] [address] * (ABNORMAL) GLUCOSE METER, POINT OF CARE (11/02/2023 8:10 PM EDT) Glucose Meter 142(H) 70 - 120 mg/dL 11/02/2023 8:13 PM EDT LABORATORY [facility] Blood Whole blood specimen / Unknown 11/02/2023 8:10 PM EDT 11/02/2023 8:13 PM EDT Meera Thompson MD LAB POINT OF CARE TE ST DOCKED DEVICE UNSOLICITED RESULTS LABORATORY [address] [phone] * GLUCOSE METER, POINT OF CARE (11/02/2023 4:39 PM EDT) Glucose Meter 113 70 - 120 mg/dL 11/02/2023 4:45 PM EDT LABORATORY [facility] Blood Whole blood specimen / Unknown 11/02/2023 4:39 PM EDT 11/02/2023 4:45 PM EDT Meera Thompson MD LAB POINT OF CARE TE ST DOCKED DEVICE UNSOLICITED RESULTS Performing Organization Address [facility] Co de Phone Number LABORATORY [address] [phone] * TYPE AND SCREEN (11/02/2023 1:48 PM EDT) ABO A 11/02/2023 8:25 PM EDT LABORATORY [facility] BLOOD BANK Rh Positive 11/02/2023 8:25 PM EDT LABORATORY [facility] BLOOD BANK Red Blood Cell Antibody Screen Negative 11/02/2023 8:25 PM EDT LABORATORY [facility] BLOOD BANK Specimen Expiration Date 11/05/2023 23:59 11/02/2023 8:25 PM EDT LABORATORY [facility] BLOOD BANK Blood Venous blood specimen / Unknown Venipuncture / Unknown 11/02/2023 1:48 PM EDT 11/02/2023 1:57 PM EDT Meera Thompson MD LAB BLOOD BANK TEST ORDERABLES LABORATORY [facility] BLOOD BANK [address] [facility] [place] [address] * (ABNORMAL) TROPONIN T, HIGH SENSITIVITY (11/02/2023 11:52 AM EDT) Troponin T, High Sensitivity 70(H) <=14 ng/L 11/02/2023 12:30 PM EDT LABORATORY [facility] Blood Venous blood specimen / Unknown Venipuncture / Unknown 11/02/2023 11:52 AM EDT 11/02/2023 12:05 PM EDT Meera Thompson MD LAB BLOOD ORDERABLES LABORATORY [address] [phone] * ECHO, COMPLETE (2D), TRANS-THORACIC (11/02/2023 10:30 AM EDT) Pathologist [facility] LEFT VENTRICULAR EJECTION FRACTION 55 % [facility] CARDIOLOGY 11/02/2023 10:0 1 AM EDT Meera Thompson MD ECHOCARDIOLOGY Performing Organization Address City/[facility] Co de Phone Number [facility] CARDIOLOGY * US ABDOMEN LIMITED (11/02/2023 8:13 AM EDT) Anatomical Region Laterality Modality Abdomen, Body Ultrasound 11/02/2023 7:32 AM EDT Impressions 11/02/2023 9:58 AM EDT IMPRESSION: Normal caliber common bile duct. THIS DOCUMENT HAS BEEN ELECTRONICALLY SIGNED BY BECKY HERNÁNDEZ MD Narrative 11/02/2023 9:58 AM EDT PROCEDURE INFORMATION: Exam: US Abdomen, Limited; Right Upper Quadrant Exam date and time: 11/02/2023 7:32 AM Age: 87 years old Clinical indication: Abnormal findings; Abnormal lab test; Elevated liver enzymes; Prior surgery; Surgery date: 6+ months; Surgery type: Gb removed; Additional info: Ruq sono, elevated lft's bilirubin TECHNIQUE: Imaging protocol: Real time ultrasound of the abdomen with image documentation. Limited exam focused on the right upper quadrant. COMPARISON: CTA ABD/PELVIS 10/23/2023 1:31 PM FINDINGS: Liver: Normal. No masses. Gallbladder: The gallbladder is surgically absent. Biliary ducts: Normal. No stones. No dilation. Pancreas: Visualized pancreas is unremarkable. Right kidney: No hydronephrosis. Procedure Note Becky Hernández MD - 11/02/2023 PROCEDURE INFORMATION: Exam: US Abdomen, Limited; Right Upper Quadrant Exam date and time: 11/02/2023 7:32 AM Age: 87 years old Clinical indication: Abnormal findings; Abnormal lab test; Elevated liver enzymes; Prior surgery; Surgery date: 6+ months; Surgery type: Gb removed; Additional info: Ruq sono, elevated lft's bilirubin TECHNIQUE: Imaging protocol: Real time ultrasound of the abdomen with imagedocumentation. Limited exam focused on the right upper quadrant. COMPARISON: CTA ABD/PELVIS 10/23/2023 1:31 PM FINDINGS: Liver: Normal. No masses. Gallbladder: The gallbladder is surgically absent. Biliary ducts: Normal. No stones. No dilation. Pancreas: Visualized pancreas is unremarkable. Right kidney: No hydronephrosis. IMPRESSION IMPRESSION: Normal caliber common bile duct. THIS DOCUMENT HAS BEEN ELECTRONICALLY SIGNED BY BECKY HERNÁNDEZ MD Meera Thompson MD RAD ULTRASOUND * PHOSPHORUS (11/02/2023 5:46 AM EDT) Phosphorus 4.4 2.5 - 4.8 mg/dL 11/02/2023 7:15 AM EDT LABORATORY [facility] Blood Venous blood specimen / Unknown Venipuncture / Unknown 11/02/2023 5:46 AM EDT 11/02/2023 6:09 AM EDT Meera Thompson MD LAB BLOOD ORDERABLES LABORATORY [address] [phone] * MAGNESIUM (11/02/2023 5:46 AM EDT) Magnesium 2.4 1.5 - 2.6 mg/dL 11/02/2023 7:15 AM EDT LABORATORY [facility] Blood Venous blood specimen / Unknown Venipuncture / Unknown 11/02/2023 5:46 AM EDT 11/02/2023 6:09 AM EDT Meera Thompson MD LAB BLOOD ORDERABLES Performing Organization Address City/[facility]/ZIP Co de Phone Number LABORATORY [address] [phone] * (ABNORMAL) BASIC METABOLIC PANEL (11/02/2023 5:46 AM EDT) BUN 54(H) 6 - 20 mg/dL 11/02/2023 7:15 AM EDT LABORATORY [facility] Creatinine 1.5(H) 0.5 - 1.0 mg/dL 11/02/2023 7:15 AM EDT LABORATORY [facility] Estimated Glomerular Filtration Rate 35(L) >=60 mL/min 11/02/2023 7:15 AM EDT LABORATORY [facility] Comment:eGFR is calculated b ased on the CKD-EPI 2020 equation Sodium 133(L) 135 - 146 mmol/L 11/02/2023 7:15 AM EDT LABORATORY [facility] Potassium 4.4 3.5 - 5.1 mmol/L 11/02/2023 7:15 AM EDT LABORATORY [facility] Chloride 95(L) 98 - 107 mmol/L 11/02/2023 7:15 AM EDT LABORATORY [facility] CO2 25 22 - 32 mmol/L 11/02/2023 7:15 AM EDT LABORATORY [facility] Anion Gap 13 7 - 15 mmol/L 11/02/2023 7:15 AM EDT LABORATORY [facility] Glucose 85 70 - 120 mg/dL 11/02/2023 7:15 AM EDT LABORATORY [facility] Calcium 10.0 8.4 - 10.2 mg/dL 11/02/2023 7:15 AM EDT LABORATORY [facility] Blood Venous blood specimen / Unknown Venipuncture / Unknown 11/02/2023 5:46 AM EDT 11/02/2023 6:09 AM EDT Meera Thompson MD LAB BLOOD ORDERABLES LABORATORY [address] [phone] * (ABNORMAL) CBC (11/02/2023 5:46 AM EDT) [facility] WBC 8.86 4.00 - 10.80 K/uL 11/02/2023 6:14 AM EDT LABORATORY [facility] RBC 3.21 3.85 - 5.15 M/uL 11/02/2023 6:14 AM EDT LABORATORY [facility] HGB 8.7(L) 12.0 - 15.3 g/dL 11/02/2023 6:14 AM EDT LABORATORY [facility] HCT 29.1(L) 36.0 - 45.2 % 11/02/2023 6:14 AM EDT LABORATORY [facility] MCV 90.7 81.5 - 97.5 fL 11/02/2023 6:14 AM EDT LABORATORY [facility] MCH 27.1 27.0 - 34.0 pg 11/02/2023 6:14 AM EDT LABORATORY [facility] MCHC 29.9 32.0 - 36.0 g/dL 11/02/2023 6:14 AM EDT LABORATORY [facility] RDW 16.2 11.5 - 15.5 % 11/02/2023 6:14 AM EDT LABORATORY [facility] PLT 306 140 - 400 K/uL 11/02/2023 6:14 AM EDT LABORATORY [facility] MPV 9.6 6.6 - 11.1 fL 11/02/2023 6:14 AM EDT LABORATORY [facility] Blood Venous blood specimen / Unknown Venipuncture / Unknown 11/02/2023 5:46 AM EDT 11/02/2023 6:09 AM EDT Meera Thompson MD LAB BLOOD ORDERABLES Performing Organization Address City/State/[facility] Co de Phone Number LABORATORY [address] [phone] * (ABNORMAL) TROPONIN T, HIGH SENSITIVITY (11/02/2023 5:46 AM EDT) [facility] Troponin T, High Sensitivity 76(H) <=14 ng/L 11/02/2023 7:11 AM EDT LABORATORY [facility] Blood Venous blood specimen / Unknown Venipuncture / Unknown 11/02/2023 5:46 AM EDT 11/02/2023 6:09 AM EDT Meera Thompson MD LAB BLOOD ORDERABLES Performing Organization Address [facility]/ZIP Co de Phone Number LABORATORY [address] [phone] * (ABNORMAL) TROPONIN T, HIGH SENSITIVITY (11/02/2023 2:10 AM EDT) Pathologist [facility] Troponin T, High Sensitivity 73(H) <=14 ng/L 11/02/2023 2:44 AM EDT LABORATORY [facility] Blood Venous blood specimen / Unknown Venipuncture / Unknown 11/02/2023 2:10 AM EDT 11/02/2023 2:18 AM EDT Meera Thompson MD LAB BLOOD ORDERABLES Performing Organization Address [facility] de Phone Number LABORATORY [address] [phone] * (ABNORMAL) BLOOD GAS, ARTERIAL (11/01/2023 8:14 PM EDT) Temperature 37.0 C 11/01/2023 8:28 PM EDT LABORATORY [facility] pH, Arterial 7.571(H) 7.350 - 7.450 units 11/01/2023 8:28 PM EDT LABORATORY [facility] pCO2, Arterial 30.2(L) 35.0 - 45.0 mmHg 11/01/2023 8:28 PM EDT LABORATORY [facility] pO2, Arterial 163.0(H) 75.0 - 100.0 mmHg 11/01/2023 8:28 PM EDT LABORATORY [facility] Base Excess, Arterial 5.6(H) -2.0 - 2.0 mmol/L 11/01/2023 8:28 PM EDT LABORATORY [facility] HGB 9.3(L) 12.0 - 15.3 g/dL 11/01/2023 8:28 PM EDT LABORATORY [facility] Oxyhemoglobin, Arterial 98.3 94.0 - 99.0 % total Hgb 11/01/2023 8:28 PM EDT LABORATORY [facility] Carboxyhemoglob in, Whole Blood 2.1(H) <=1.5 % total Hgb 11/01/2023 8:28 PM EDT LABORATORY [facility] Comment:Smokers: 0-9.0 % Methemoglobin, Whole Blood 0.6 <=1.5 % total Hgb 11/01/2023 8:28 PM EDT LABORATORY [facility] Reduced Hemoglobin, Arterial <0.0(L) 0.0 - 5.0 % total Hgb 11/01/2023 8:28 PM EDT LABORATORY [facility] O2 Content, Arterial 11/01/2023 8:28 PM EDT LABORATORY [facility] Comment:Greater than 100% , rerun if necessary FiO2 40% % 11/01/2023 8:28 PM EDT LABORATORY [facility] Comment:on bipap O2 Flow, Arterial Not Provided L/min 11/01/2023 8:28 PM EDT LABORATORY [facility] Bicarbonate, Whole Blood 27.7 23.0 - 31.0 mmol/L 11/01/2023 8:28 PM EDT LABORATORY [facility] Blood Arterial blood specimen / Unknown Arterial Puncture / Unknown 11/01/2023 8:14 PM EDT 11/01/2023 8:17 PM EDT Meera Thompson MD LAB BLOOD ORDERABLES LABORATORY [address] [phone] * (ABNORMAL) TROPONIN T, HIGH SENSITIVITY (11/01/2023 5:40 PM EDT) [facility] Troponin T, High Sensitivity 72(H) <=14 ng/L 11/01/2023 6:29 PM EDT LABORATORY [facility] Blood Venous blood specimen / Unknown Venipuncture / Unknown 11/01/2023 5:40 PM EDT 11/01/2023 5:50 PM EDT Meera Thompson MD LAB BLOOD ORDERABLES LABORATORY [address] [phone] * LACTATE,WHOLE BLOOD (11/01/2023 5:40 PM EDT) Lactate, Whole Blood 1.8 0.4 - 2.0 mmol/L 11/01/2023 5:55 PM EDT LABORATORY [facility] Blood Venous blood specimen / Unknown Venipuncture / Unknown 11/01/2023 5:40 PM EDT 11/01/2023 5:50 PM EDT Tania Garcia PA-C LAB BLOOD ORDERABL ES LABORATORY [address] [phone] * (ABNORMAL) URINALYSIS WITH MICROSCOPIC EXAM (11/01/2023 2:40 PM EDT) Pathologist [facility] Color, Urine Yellow Light Yellow, Yellow, Dark Yellow 11/01/2023 3:18 PM EDT LABORATORY [facility] Clarity, Urine Clear Clear 11/01/2023 3:18 PM EDT LABORATORY [facility] Glucose, Urine Negative Negative mg/dL 11/01/2023 3:18 PM EDT LABORATORY [facility] Bilirubin, Urine Negative Negative 11/01/2023 3:18 PM EDT LABORATORY [facility] Ketone, Urine Negative Negative mg/dL 11/01/2023 3:18 PM EDT LABORATORY [facility] Specific [place], Urine 1.010 1.003 - 1.030 11/01/2023 3:18 PM EDT LABORATORY [facility] Blood, Urine Negative Negative 11/01/2023 3:18 PM EDT LABORATORY [facility] pH, Urine 7.0 5.0 - 7.5 Units 11/01/2023 3:18 PM EDT LABORATORY [facility] Protein, Urine Negative Negative mg/dL 11/01/2023 3:18 PM EDT LABORATORY [facility] Urobilinogen, Urine 0.2 0.2, 1.0 mg/dL 11/01/2023 3:18 PM EDT LABORATORY [facility] Nitrite, Urine Negative Negative 11/01/2023 3:18 PM EDT LABORATORY [facility] Esterase, Urine Trace(A) Negative 11/01/2023 3:18 PM EDT LABORATORY [facility] RBC, Urine 0-2 0 - 2 /HPF 11/01/2023 3:18 PM EDT LABORATORY [facility] WBC, Urine 0-2 0 - 2 /HPF 11/01/2023 3:18 PM EDT LABORATORY [facility] Bacteria, Urine 0-25 0 - 25 /HPF 11/01/2023 3:18 PM EDT LABORATORY [facility] Urine Non-blood Collection / Unknown 11/01/2023 2:40 PM EDT 11/01/2023 2:43 PM EDT Tania Garcia PA-C LAB URINE ORDERABL ES Performing Organization Address [facility] Co de Phone Number LABORATORY [address] [phone] * (ABNORMAL) LACTATE, WHOLE BLOOD WITH REFLEX IF ABNORMAL (11/01/2023 2:40 PM EDT) Lactate, Whole Blood 2.9(H) 0.4 - 2.0 mmol/L 11/01/2023 2:51 PM EDT LABORATORY [facility] Blood Venous blood specimen / Unknown Venipuncture / Unknown 11/01/2023 2:40 PM EDT 11/01/2023 2:49 PM EDT Tania Garcia PA-C LAB BLOOD ORDERABL ES Performing Organization Address [facility] de Phone Number LABORATORY [address] [phone] * (ABNORMAL) TROPONIN T, HIGH SENSITIVITY (11/01/2023 1:36 PM EDT) Troponin T, High Sensitivity 64(H) <=14 ng/L 11/01/2023 2:12 PM EDT LABORATORY [facility] Blood Venous blood specimen / Unknown Venipuncture / Unknown 11/01/2023 1:36 PM EDT 11/01/2023 1:48 PM EDT Tania Garcia PA-C LAB BLOOD ORDERABL ES Performing Organization Address [facility]/ZIP Co de Phone Number LABORATORY [address] [phone] * (ABNORMAL) COMPREHENSIVE METABOLIC PANEL (11/01/2023 1:36 PM EDT) BUN 53(H) 6 - 20 mg/dL 11/01/2023 2:09 PM EDT LABORATORY [facility] Creatinine 1.3(H) 0.5 - 1.0 mg/dL 11/01/2023 2:09 PM EDT LABORATORY [facility] Estimated Glomerular Filtration Rate 39(L) >=60 mL/min 11/01/2023 2:09 PM EDT LABORATORY [facility] Comment:eGFR is calculated b ased on the CKD-EPI 2020 equation Sodium 128(L) 135 - 146 mmol/L 11/01/2023 2:09 PM EDT LABORATORY [facility] Potassium 4.2 3.5 - 5.1 mmol/L 11/01/2023 2:09 PM EDT LABORATORY [facility] Chloride 90(L) 98 - 107 mmol/L 11/01/2023 2:09 PM EDT LABORATORY [facility] CO2 23 22 - 32 mmol/L 11/01/2023 2:09 PM EDT LABORATORY [facility] Anion Gap 15 7 - 15 mmol/L 11/01/2023 2:09 PM EDT LABORATORY [facility] Glucose 98 70 - 120 mg/dL 11/01/2023 2:09 PM EDT LABORATORY [facility] Albumin 3.3(L) 3.8 - 5.0 g/dL 11/01/2023 2:09 PM EDT LABORATORY [facility] AST 44(H) 10 - 35 U/L 11/01/2023 2:09 PM EDT LABORATORY [facility] Alkaline Phosphatase 140(H) 35 - 130 U/L 11/01/2023 2:09 PM EDT LABORATORY [facility] Bilirubin, Total 1.8(H) <=1.2 mg/dL 11/01/2023 2:09 PM EDT LABORATORY [facility] Calcium 10.1 8.4 - 10.2 mg/dL 11/01/2023 2:09 PM EDT LABORATORY [facility] Protein 7.4 6.0 - 8.3 g/dL 11/01/2023 2:09 PM EDT LABORATORY [facility] ALT 27 10 - 35 U/L 11/01/2023 2:09 PM EDT LABORATORY [facility] Blood Venous blood specimen / Unknown Venipuncture / Unknown 11/01/2023 1:36 PM EDT 11/01/2023 1:48 PM EDT Tania Garcia PA-C LAB BLOOD ORDERABL ES LABORATORY [place] [id number] [place] [address] * XR CHEST 2 VIEWS (11/01/2023 12:57 PM EDT) Anatomical Region Laterality Modality Chest Computed Radiogr aphy 11/01/2023 12:4 8 PM EDT Impressions 11/01/2023 1:28 PM EDT IMPRESSION: Abnormal aeration. Findings may be consistent with pulmonary edema versus chronic fibrotic change or viral process. Recommend follow-up. THIS DOCUMENT HAS BEEN ELECTRONICALLY SIGNED BY DANETTE HDZ MD Narrative 11/01/2023 1:28 PM EDT PROCEDURE INFORMATION: Exam: XR Chest Exam date and time: 11/01/2023 12:48 PM Age: 87 years old Clinical indication: Shortness of breath; Patient HX: SOB; Additional info: SOB, concern for acute chf exacerbation TECHNIQUE: Imaging protocol: Radiologic exam of the chest. Views: 2 views. COMPARISON: DX XR CHEST 1 VIEW 10/09/2023 10:49 AM FINDINGS: Tubes, catheters and devices: Multiple monitoring leads projecting over the field of view. Lungs: There is diffuse moderate nonspecific prominence of the subpleural pulmonary interstitium. No definite air bronchograms identified. Again seen are chronic fibrotic changes. Pleural spaces: Unremarkable. No pleural effusion. No pneumothorax. Heart/Mediastinum: There is mild cardiomegaly. Bones/joints: There are moderate degenerative changes present. Procedure Note Danette Hdz MD - 11/01/2023 PROCEDURE INFORMATION: Exam: XR Chest Exam date and time: 11/01/2023 12:48 PM Age: 87 years old Clinical indication: Shortness of breath; Patient HX: SOB; Additionalinfo: SOB, concern for acute chf exacerbation TECHNIQUE: Imaging protocol: Radiologic exam of the chest. Views: 2 views. COMPARISON: DX XR CHEST 1 VIEW 10/09/2023 10:49 AM FINDINGS: Tubes, catheters and devices: Multiple monitoring leads projecting overthe field of view. Lungs: There is diffuse moderate nonspecific prominence of the subpleural pulmonary interstitium. No definite air bronchograms identified. Againseen are chronic fibrotic changes. Pleural spaces: Unremarkable. No pleural effusion. No pneumothorax. Heart/Mediastinum: There is mild cardiomegaly. Bones/joints: There are moderate degenerative changes present. IMPRESSION IMPRESSION: Abnormal aeration. Findings may be consistent with pulmonary edema versus chronic fibrotic change or viral process. Recommend follow-up. THIS DOCUMENT HAS BEEN ELECTRONICALLY SIGNED BY DANTETE HDZ MD Tania Garcia PA-C RADIOLOGY (RAD GEN ERAL) * (ABNORMAL) DIFFERENTIAL, TECHNOLOGIST REVIEW (11/01/2023 12:32 PM EDT) WBC 10.87(H) 4.00 - 10.80 K/uL 11/01/2023 1:22 PM EDT [facility] Neutrophils % 82.0(H) 40.0 - 75.0 % 11/01/2023 1:22 PM EDT [facility] Lymphocytes % 12.0(L) 18.0 - 42.0 % 11/01/2023 1:22 PM EDT [facility] Monocytes % 5.0 1.0 - 11.0 % 11/01/2023 1:22 PM EDT [facility] Eosinophils % 1.0 0.0 - 6.0 % 11/01/2023 1:22 PM EDT [facility] Absolute Neutrophils 8.91(H) 1.80 - 7.70 K/uL 11/01/2023 1:22 PM EDT [facility] Absolute Lymphocytes 1.30 1.00 - 4.80 K/uL 11/01/2023 1:22 PM EDT [facility] Absolute Monocytes 0.54 0.00 - 1.10 K/uL 11/01/2023 1:22 PM EDT [facility] Absolute Eosinophils 0.11 0.00 - 0.70 K/uL 11/01/2023 1:22 PM EDT [facility] nRBCs 11/01/2023 1:22 PM EDT [facility] Blood Venous blood specimen / Unknown Venipuncture / Unknown 11/01/2023 12:32 PM EDT 11/01/2023 12:37 PM EDT Tania Garcia PA-C LAB BLOOD ORDERABL ES Performing Organization Address [facility]/ZIP Co de Phone Number LABORATORY [address] [phone] * EXTRA LIGHT BLUE TOP (11/01/2023 12:32 PM EDT) Blood Venous blood specimen / Unknown Venipuncture / Unknown 11/01/2023 12:32 PM EDT 11/01/2023 12:39 PM EDT Yassine Nobles MD LAB BLOOD ORDERABLE S Performing Organization Address [facility]/ZIP Co de Phone Number LABORATORY [address] [phone] * DIFFERENTIAL, AUTOMATED (11/01/2023 12:32 PM EDT) Blood Venous blood specimen / Unknown Venipuncture / Unknown 11/01/2023 12:32 PM EDT 11/01/2023 12:37 PM EDT Tania Garcia PA-C LAB BLOOD ORDERABL ES Performing Organization Address [facility] de Phone Number LABORATORY [address] [phone] * (ABNORMAL) CBC (11/01/2023 12:32 PM EDT) WBC 10.87(H) 4.00 - 10.80 K/uL 11/01/2023 1:22 PM EDT [facility] RBC 3.42 3.85 - 5.15 M/uL 11/01/2023 1:22 PM EDT [facility] HGB 9.5(L) 12.0 - 15.3 g/dL 11/01/2023 1:22 PM EDT [facility] HCT 31.2(L) 36.0 - 45.2 % 11/01/2023 1:22 PM EDT [facility] MCV 91.2 81.5 - 97.5 fL 11/01/2023 1:22 PM EDT [facility] MCH 27.8 27.0 - 34.0 pg 11/01/2023 1:22 PM EDT [facility] MCHC 30.4 32.0 - 36.0 g/dL 11/01/2023 1:22 PM EDT [facility] RDW 16.4 11.5 - 15.5 % 11/01/2023 1:22 PM EDT [facility] PLT 314 140 - 400 K/uL 11/01/2023 1:22 PM EDT [facility] MPV 9.6 6.6 - 11.1 fL 11/01/2023 1:22 PM EDT [facility] Blood Venous blood specimen / Unknown Venipuncture / Unknown 11/01/2023 12:32 PM EDT 11/01/2023 12:37 PM EDT Tania Garcia PA-C LAB BLOOD ORDERABL ES Performing Organization Address City/State/[facility] Co de Phone Number LABORATORY [place] [id number] [place] [address] * (ABNORMAL) BLOOD GAS, VENOUS (11/01/2023 12:32 PM EDT) Temperature 37.0 C 11/01/2023 12:45 PM EDT [facility] pH, Venous 7.438(H) 7.320 - 7.430 units 11/01/2023 12:45 PM EDT [facility] pCO2, Venous 42.0 40.0 - 60.0 mmHg 11/01/2023 12:45 PM EDT [facility] pO2, Venous 30.9 25.0 - 50.0 mmHg 11/01/2023 12:45 PM EDT [facility] Base Excess, Venous 3.8(H) -2.0 - 2.0 mmol/L 11/01/2023 12:45 PM EDT [facility] HGB 11.2(L) 12.0 - 15.3 g/dL 11/01/2023 12:45 PM EDT [facility] Oxyhemoglobin, Venous 45.0 40.0 - 85.0 % total Hgb 11/01/2023 12:45 PM EDT [facility] Carboxyhemoglobi n, Whole Blood 1.6(H) <=1.5 % total Hgb 11/01/2023 12:45 PM EDT [facility] Comment:Smokers: 0-9.0 % Methemoglobin, Whole Blood 0.7 <=1.5 % total Hgb 11/01/2023 12:45 PM EDT [facility] Reduced Hemoglobin, Venous 52.7 % total Hgb 11/01/2023 12:45 PM EDT [facility] O2 Content, Venous 7.1 7.0 - 18.0 %vol 11/01/2023 12:45 PM EDT [facility] Bicarbonate, Whole Blood 28.4 23.0 - 31.0 mmol/L 11/01/2023 12:45 PM EDT [facility] Blood Venous blood specimen / Unknown Venipuncture / Unknown 11/01/2023 12:32 PM EDT 11/01/2023 12:37 PM EDT Tania Garcia PA-C LAB BLOOD ORDERABL ES Performing Organization Address City/[facility]/ZIP Co de Phone Number LABORATORY [address] [phone] * (ABNORMAL) LACTATE, WHOLE BLOOD WITH REFLEX IF ABNORMAL (11/01/2023 12:32 PM EDT) [facility] Lactate, Whole Blood 3.8(H) 0.4 - 2.0 mmol/L 11/01/2023 12:46 PM EDT [facility] Blood Venous blood specimen / Unknown Venipuncture / Unknown 11/01/2023 12:32 PM EDT 11/01/2023 12:37 PM EDT Tania Garcia PA-C LAB BLOOD ORDERABL ES Performing Organization Address [facility]/ZIP Co de Phone Number LABORATORY [address] [phone] * (ABNORMAL) TROPONIN T, HIGH SENSITIVITY (11/01/2023 12:32 PM EDT) [facility] Troponin T, High Sensitivity 61(H) <=14 ng/L 11/01/2023 1:10 PM EDT [facility] Blood Venous blood specimen / Unknown Venipuncture / Unknown 11/01/2023 12:32 PM EDT 11/01/2023 12:37 PM EDT Tania Garcia PA-C LAB BLOOD ORDERABL ES Performing Organization Address [facility] de Phone Number LABORATORY [address] [phone] * (ABNORMAL) BNP, NT-PRO (11/01/2023 12:32 PM EDT) BNP, NT-Pro 13,549(H) <300 pg/mL 11/01/2023 1:14 PM EDT [facility] Blood Venous blood specimen / Unknown Venipuncture / Unknown 11/01/2023 12:32 PM EDT 11/01/2023 12:37 PM EDT Narrative LABORATORY [facility] - 11/01/2023 1:14 PM EDT Exclude Heart Failure: <300 pg/mL Diagnose Heart Failure: Age <50 yr: >450 pg/mL 50-75 yr: >900 pg/mL >75 yr: >1800 pg/mL GFR is 30-59 mL/min: >1200 pg/mL or Age-adjusted values GFR <30 mL/min: do not use, not reliable Prognostic threshold: 1000 pg/mL Tania Garcia PA-C LAB BLOOD ORDERABL ES Performing Organization Address [facility] de Phone Number LABORATORY [address] [phone] * RESPIRATORY PATHOGEN PANEL, PCR (11/01/2023 12:32 PM EDT) Pathologist [facility] Adenovirus by PCR Negative Negative 024 1:32 PM EDT LAB[facility] Coronavirus 229E by PCR Negative Negative 11/01/2023 1:32 PM EDT LAB[facility] Coronavirus HKU1 by PCR Negative Negative 11/01/2023 1:32 PM EDT LAB[facility] Coronavirus NL63 by PCR Negative Negative 11/01/2023 1:32 PM EDT LAB[facility] Coronavirus OC43 by PCR Negative Negative 11/01/2023 1:32 PM EDT LAB[facility] Coronavirus SARS-CoV-2 by PCR Negative Negative 11/01/2023 1:32 PM EDT LAB[facility] Human Metapneumovirus by PCR Negative Negative 11/01/2023 1:32 PM EDT [facility] Rhinovirus/Enterovi jessica by PCR Negative Negative 11/01/2023 1:32 PM EDT [facility] Influenza A Virus by PCR Negative Negative 11/01/2023 1:32 PM EDT [facility] Influenza B Virus by PCR Negative Negative 11/01/2023 1:32 PM EDT [facility] Parainfluenza Virus 1 by PCR Negative Negative 11/01/2023 1:32 PM EDT [facility] Parainfluenza Virus 2 by PCR Negative Negative 11/01/2023 1:32 PM EDT [facility] Parainfluenza Virus 3 by PCR Negative Negative 11/01/2023 1:32 PM EDT [facility] Parainfluenza Virus 4 by PCR Negative Negative 11/01/2023 1:32 PM EDT [facility] Respiratory Syncytial Virus by PCR Negative Negative 11/01/2023 1:32 PM EDT [facility] Bordetella pertussis by PCR Negative Negative 11/01/2023 1:32 PM EDT [facility] Chlamydia pneumoniae by PCR Negative Negative 11/01/2023 1:32 PM EDT [facility] Mycoplasma pneumoniae by PCR Negative Negative 11/01/2023 1:32 PM EDT [facility] Bordetella parapertussis by PCR Negative Negative 11/01/2023 1:32 PM EDT [facility] Comment: The primers that detect Rhinovirus may cross react with some Enterorviruses. The validation of bronchial specimens, tracheal aspirates, and throats for this assay was developed and performance characteristics determined by [employer]. The validation of alternate specimen types has not been cleared or approved by the U.S. Food and Drug Administration (FDA). It has been determined that such clearance or approval is not necessary. 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)- Primary Heart failure, systolic and diastolic, acute on chronic (HCC) Acute on chronic combined systolic and diastolic heart failure Chest pain Chest pain, unspecified Heart failure (HCC) Heart failure, unspecified Other ill-defined heart diseases Atrial fibrillation (HCC) Atrial fibrillation Elevated troponin Other abnormal blood chemistry Dyslipidemia, goal to be determined Other and unspecified hyperlipidemia Essential hypertension with goal blood pressure less than 140/90 documented in this encounter Administered Medications Inactive Administered Medications - up to 3 most recent administrations Medication Order MAR Action Action Date Dose Rate Site Acetaminophen (Tylenol) supp 650 mg 650 mg, Rectal, Q6H PRN Pain, Mild, Use if patient unable to take oral acetaminophen, Starting on Mon11/01/23 at 1629, Until Mon11/03/23 at 1847, Maximum of 4 grams (4000mg) per day. Acetaminophen (Tylenol) tab 650 mg 650 mg, Oral, Q6H PRN Pain, Mild, Fever >38C(100.5F), Starting on Mon11/01/23 at 1629, Until Mon11/03/23 at 1847, Maximum of 4 grams (4000 mg) per day. Albuterol Sulfate (Proventil) (2.5 MG/3ML) 0.083% inhalation solution 2.5 mg 2.5 mg, Nebulizer, Q4H PRN Dyspnea, Starting on Mon11/01/23 at 1727, Until Mon11/03/23 at 1847 Apixaban (Eliquis) tab 2.5 mg 2.5 mg, Oral, BID (.AM/PM), First dose on Mon11/01/23 at 2100, Until Discontinued Given 11/03/2023 8:22 AM EDT 2.5 mg Given 11/02/2023 8:07 PM EDT 2.5 mg Given 11/02/2023 8:47 AM EDT 2.5 mg aspirin enteric coated tab 81 mg 81 mg, Oral, Daily(AM), First dose on Mon11/02/23 at 0900, Until Discontinued Given 11/03/2023 8:22 AM EDT 81 mg Given 11/02/2023 8:47 AM EDT 81 mg atorvaSTATin (Lipitor) tab 20 mg 20 mg, Oral, QPM-1999, First dose on Mon11/01/23 at 2000, Until Discontinued Given 11/02/2023 8:07 PM EDT 20 mg Given 11/01/2023 8:54 PM EDT 20 mg Bisacodyl (Dulcolax) supp 10 mg 10 mg, Rectal, DAILY PRN Constipation, Starting on Mon11/04/23 at 1629, Until Mon11/03/23 at 1847, Administer if no bowel movement within past 72 hours and patient unable to take oral medications. Bisacodyl (Dulcolax) tab 5 mg 5 mg, Oral, DAILY PRN Constipation, Starting on Mon11/04/23 at 1629, Until Mon11/03/23 at 1847, Administer in addition to polyethylene glycol and senna-docusate if no bowel movement in past 72 hours. dextrose 50% inj 25 mL 25 mL, IV Push, PRN Hypoglycemia, Other, For blood glucose 54 - 69 mg/dL or 70 - 100 mg/dL with symptoms AND patient is unresponsive, NPO, OR unable to swallow, Starting on Mon11/02/23 at 1338, Until Mon11/03/23 at 1847, Administer IV. Recheck blood glucose after 15 minutes. Notify provider. dextrose 50% inj 50 mL 50 mL, IV Push, PRN Hypoglycemia, Other, For blood glucose below 54 mg/dL AND patient unresponsive, NPO, OR unable to swallow, Starting on Mon11/02/23 at 1338, Until Mon11/03/23 at 1847, Administer IV. Recheck blood glucose in 15 minutes. Notify provider. fluticasone furoate-vilanterol (BREO ellipta) 100-25 MCG/ACT inhaler 1 Puff 1 Puff, Inhalation, RESPDAILY, First dose on Mon11/02/23 at 0800, Until Discontinued Given 11/03/2023 7:21 AM EDT 1 Puf f Given 11/02/2023 8:03 AM EDT 1 Puff Furosemide (Lasix) 500 mg in NSS (5 mg/mL) infusion 100 mL 10 mg/hr (2 mL/hr), Intravenous, CONTINUOUS, Starting on Mon11/01/23 at 1630, Until Mon11/02/23 at 1718, Please select this medication from the infusion pump library! Protect from Light!! CCU refrigerator Rate Verify 11/02/2023 4:24 PM EDT 10 mg/hr 2 mL/h r New Bag 11/02/2023 11:44 AM EDT 10 mg/hr 2 mL/hr Restarted 11/02/2023 11:42 AM EDT 10 mg/hr 2 mL/hr Furosemide (Lasix) 500 mg in NSS (5 mg/mL) infusion 100 mL 10 mg/hr (2 mL/hr), Intravenous, CONTINUOUS, Starting on Mon11/02/23 at 1800, Until Mon11/02/23 at 1959, For 2 hours, Please select this medication from the infusion pump library! Protect from Light!! CCU refrigerator Nurse Change 11/02/2023 7:10 PM EDT 10 mg/hr 2 mL/h r New Bag 11/02/2023 5:27 PM EDT 10 mg/hr 2 mL/hr Furosemide (Lasix) 500 mg in NSS (5 mg/mL) infusion 100 mL 10 mg/hr (2 mL/hr), Intravenous, CONTINUOUS, Starting on Mon11/03/23 at 1100, Until Mon11/03/23 at 1847, Please select this medication from the infusion pump library! Protect from Light!! Rate Verify 11/03/2023 5:27 PM EDT 10 mg/hr 2 mL/hr Rate Verify 11/03/2023 5:10 PM EDT 10 mg/hr 2 mL/hr Nurse Change 11/03/2023 3:25 PM EDT 10 mg/hr 2 mL/hr Furosemide (Lasix) inj 40 mg 40 mg, IV Push, ONCE, On Mon11/01/23 at 1415, For 1 dose Given 11/01/2023 1:39 PM EDT 40 mg Furosemide (Lasix) inj 60 mg 60 mg, IV Push, BID (0900, 1600), First dose on Mon11/03/23 at 0900, Until Discontinued Given 11/03/2023 8:47 AM EDT 60 mg glucagon (Glucagen) inj 1 mg 1 mg, Intramuscular, PRN Hypoglycemia, Other, If patient is unresponsive, or NPO and has no IV access, Starting on Mon11/02/23 at 1338, Until Mon11/03/23 at 1847, NPO and no IV access with either 1) blood glucose less than 100 mg/dL and symptomatic OR 2) blood glucose less than 70 mg/dL and asymptomatic Glucose (Glutose 15) 40 % gel 15 g of glucose 15 g of glucose, Oral, PRN Hypoglycemia (low sugar), Other, For blood glucose 54 - 69 mg/dL or 70 - 100 mg/dL with symptoms AND patient alert WITH difficulty chewing/swallowing, Starting on Mon11/02/23 at 1338, Until Mon11/03/23 at 1847, Administer gel. Recheck blood glucose after 15 minutes. Notify provider. 37.5 gram tube = 15 grams glucose = 1 each Glucose (Glutose 15) 40 % gel 30 g of glucose 30 g of glucose, Oral, PRN Hypoglycemia (low sugar), Other, For blood glucose below 54 mg/dL AND patient alert WITH difficulty chewing/swallowing, Starting on Mon11/02/23 at 1338, Until Mon11/03/23 at 1847, Administer gel. Recheck blood glucose after 15 minutes. Notify provider. 37.5 gram tube = 15 grams glucose = 1 each glucose chew tab 16 g 16 g, Oral, PRN Hypoglycemia, Other, For blood glucose 54 - 69 mg/dL or 70 - 100 mg/dL with symptoms and patient alert without difficulty chewing/swallowing., Starting on Mon11/02/23 at 1338, Until Mon11/03/23 at 1847 insulin aspart (NovoLOG) inj Subcutaneous, W/MEALS AND HS, First dose on Mon11/02/23 at 1700, Until Discontinued, MEDIUM DOSE (Usual starting dose): Sliding Scale Correctional insulin may be given if the patient is NPO. Dose based on standard build from Insulin Calculator. Do not modify insulin doses in administration instructions! , Glucose less than 70 instructions: Obtain STAT lab blood glucose and call covering provider., Glucose 80-150 (units): 0, Glucose 151-200 (units): 2, Glucose 201-250 (units): 4, Glucose 251-300 (units): 6, Glucose greater than 300 (units): 8, Glucose greater than 300 instructions: Give suggested insulin dose and call covering provider. Given 11/03/2023 4:53 PM EDT 4 Units Abdomen Right Upper Lidocaine (Aspercreme) 4 % patch 1 Patch 1 Patch, Transdermal, ONCE, On Mon11/01/23 at 1315, For 1 dose, Apply patch for 12 hours then remove for 12 hours! Remove any Lidocaine patches the patient may currently be wearing prior to applying the new patch Patch Applied 11/01/2023 12:59 PM EDT 1 Patch Back Middle methIMAzole (Tapazole) tab 2.5 mg 2.5 mg, Oral, Daily(AM), First dose on Mon11/02/23 at 0900, Until Discontinued Given 11/03/2023 8:22 AM EDT 2.5 mg Given 11/02/2023 8:47 AM EDT 2.5 mg midodrine (Proamatine) tab 5 mg 5 mg, Oral, TID(AM/NOON/HS), First dose on Mon11/01/23 at 1700, Until Discontinued Given 11/03/2023 11:49 AM EDT 5 mg Given 11/03/2023 5:26 AM EDT 5 mg Given 11/02/2023 9:55 PM EDT 5 mg ondansetron (Zofran) inj 4 mg 4 mg, IV Push, Q6H PRN Nausea, Starting on Mon11/01/23 at 1629, Until Mon11/03/23 at 1847 oxygen GAS Inhalation, OXYGEN, First dose on Mon11/01/23 at 1630, Until Discontinued, Device/Managed by: NIV or Ventilator Device, Goal SPO2 (%): 91-95, Notify Provider: For sudden DECREASE in resting SPO2 to less than 85% and when escalating delivery device., Initial FiO2 (%): 40, Titration Interval: Q2 minutes and as needed., Wean patient off Oxygen when the oxygen saturation is greater than or equal to 93% Oxygen On 11/02/2023 8:00 AM EDT 3 L/min(Oxygen) Oxygen On 11/02/2023 12:00 AM EDT Oxygen On 11/01/2023 4:30 PM EDT 50 %(Oxygen) oxygen GAS Inhalation, OXYGEN, First dose on Mon11/02/23 at 1600, Until Discontinued, Device/Managed by: Low [...] than or equal to 93% Oxygen On 11/03/2023 4:00 PM EDT Oxygen On 11/03/2023 8:00 AM EDT Oxygen On 11/03/2023 12:00 AM EDT perflutren lipid microsphere inj SUSP 1.956 mg 1.956 mg, Intravenous, ONCE PRN Other, For Echo Only - Suboptimal Echo Images, Starting on Priti 11/02/23 at 1022, Until Priti 11/02/23 at 1221, For 2 hours, Administer IVP over 45 seconds, Cardiac Studies_HODHOV Given 11/02/2023 10:30 AM EDT 1.956 mg Polyethylene Glycol 3350 (Miralax) oral powder 17 g 17 g (1 Packet), Oral, DAILY PRN Constipation, Starting on Mon11/01/23 at 1629, Until Mon11/03/23 at 1847, Administer if no bowel movement within past 24 hours. Given 11/02/2023 11:33 AM EDT 17 g potassium chloride ER tab 20 mEq 20 mEq, Oral, BID (.AM/PM), First dose on Mon11/01/23 at 2100, Until Discontinued Given 11/03/2023 8:22 AM EDT 20 mE q Given 11/02/2023 8:07 PM EDT 20 mEq Given 11/02/2023 8:47 AM EDT 20 mEq senna-docusate (Senokot-S) 1 Tablet 1 Tablet, Oral, BID PRN Constipation, Starting on Mon11/03/23 at 1629, Until Mon11/03/23 at 1847, Administer in addition to polyethylene glycol if no bowel movement within past 48 hours. sodium chloride 0.9 % flush/inj 3 mL 3 mL, IV Push, PRN Other, Line Patency, Starting on Mon11/01/23 at 1628, Until Mon11/03/23 at 1847, Do not flush if lock, PICC, or central line not in place, IV infusing or unable to flush documented in this encounter Active and Recently Administered Medications Times are shown in EDT. Scheduled Medication Order 11/01/2023 11/02/2023 11/03/2023 Apixaban (Eliquis) tab 2.5 mg 2.5 mg, Oral, BID (.AM/PM), First dose on Mon11/01/23 at 2100, Until Discontinued 2053 (Given - Provider: Brian Foster LPN) 08 (Given - Provider: Richard Fish RN)2006 (Given - Provider: Piper Freeman RN) 821 (Given - Provider: Juan Carlos Wang LPN) aspirin enteric coated tab 81 mg 81 mg, Oral, Daily(AM), First dose on Mon11/02/23 at 0900, Until Discontinued 846 (Given - Provider: Richard Fish RN) 821 (Given - Provider: Juan Carlos Wang LPN) atorvaSTATin (Lipitor) tab 20 mg 20 mg, Oral, QPM-1999, First dose on Mon11/01/23 at 2000, Until Discontinued 2053 (Given - Provider: Brian Foster LPN) 2006 (Given - Provider: Piper Freeman RN) fluticasone furoate-vilanterol (BREO ellipta) 100-25 MCG/ACT inhaler 1 Puff 1 Puff, Inhalation, RESPDAILY, First dose on Mon11/02/23 at 0800, Until Discontinued 802 (Given - Provider: Alejandra Linn, BARRIE) 07 (Given - Provider: Krystle Cordova, BARRIE) Furosemide (Lasix) inj 40 mg (COMPLETED) 40 mg, IV Push, ONCE, On Mon11/01/23 at 1415, For 1 dose 1339 (Given - Provider: Dione Smith RN) Furosemide (Lasix) inj 60 mg (CANCELED) 60 mg, IV Push, BID (0900, 1600), First dose on Mon11/03/23 at 0900, Until Discontinued 846 (Given - Provider: Nataly Caruso RN) insulin aspart (NovoLOG) inj Subcutaneous, W/MEALS AND HS, First dose on Mon11/02/23 at 1700, Until Discontinued, MEDIUM DOSE (Usual starting dose): Sliding Scale Correctional insulin may be given if the patient is NPO. Dose based on standard build from Insulin Calculator. Do not modify insulin doses in administration instructions! , Glucose less than 70 instructions: Obtain STAT lab blood glucose and call covering provider., Glucose 80-150 (units): 0, Glucose 151-200 (units): 2, Glucose 201-250 (units): 4, Glucose 251-300 (units): 6, Glucose greater than 300 (units): 8, Glucose greater than 300 instructions: Give suggested insulin dose and call covering provider. 1700 (No Insulin - Provider: Richard Fish RN - Reason: Parameter(s) Not Met)2200 (Not Given - Provider: Piper Freeman RN - Reason: Parameter(s) Not Met) 0800 (No Insulin - Provider: Juan Carlos Wang LPN - Reason: Parameter(s) Not Met)1200 (No Insulin - Provider: Juan Carlos Wang LPN - Reason: Parameter(s) Not Met)1653 (Given - Provider: Juan Carlos Wang LPN) Lidocaine (Aspercreme) 4 % patch 1 Patch (COMPLETED) 1 Patch, Transdermal, ONCE, On Mon11/01/23 at 1315, For 1 dose, Apply patch for 12 hours then remove for 12 hours! Remove any Lidocaine patches the patient may currently be wearing prior to applying the new patch 1259 (Patch Applied - Provider: Dione Smith RN) 0059 (Patch Removed - Provider: Brian Foster LPN) methIMAzole (Tapazole) tab 2.5 mg 2.5 mg, Oral, Daily(AM), First dose on Mon11/02/23 at 0900, Until Discontinued 0847 (Given - Provider: Richard Fish RN) 0822 (Given - Provider: Juan Carlos Wang LPN) midodrine (Proamatine) tab 5 mg 5 mg, Oral, TID(AM/NOON/HS), First dose on Mon11/01/23 at 1700, Until Discontinued 1700 (Not Given - Provider: Richard Fish RN - Reason: NPO - Comment: patient currently on bipap)2052 (Given - Provider: Brian Foster LPN) 0507 (Given - Provider: Libby Duffy RN)1137 (Given - Provider: Richard Fish RN)2155 (Given - Provider: Piper Freeman, RN) 0526 (Given - Provider: Luz Elena Salazar RN)1149 (Given - Provider: Juan Carlos Wang LPN) oxygen GAS (CANCELED)(Linked Group 1) Inhalation, OXYGEN, First dose on Mon11/01/23 at 1630, Until Discontinued, Device/Managed by: NIV or Ventilator Device, Goal SPO2 (%): 91-95, Notify Provider: For sudden DECREASE in resting SPO2 to less than 85% and when escalating delivery device., Initial FiO2 (%): 40, Titration Interval: Q2 minutes and as needed., Wean patient off Oxygen when the oxygen saturation is greater than or equal to 93% 1630 (Oxygen On - Provider: Richard Fish RN) 0000 (Oxygen On - Provider: Brian Foster LPN)0800 (Oxygen On - Provider: Richard Fish RN) oxygen GAS Inhalation, OXYGEN, First dose on Mon11/02/23 at 1600, Until Discontinued, Device/Managed by: Low [...] is greater than or equal to 93% 1600 (Oxygen On - Provider: Richard Fish RN) 0000 (Oxygen On - Provider: Piper Freeman RN)0800 (Oxygen On - Provider: Juan Carlos Wang LPN)1600 (Oxygen On - Provider: Juan Carlos Wang LPN) potassium chloride ER tab 20 mEq 20 mEq, Oral, BID (.AM/PM), First dose on Mon11/01/23 at 2100, Until Discontinued 2052 (Given - Provider: Brian Foster LPN) 0847 (Given - Provider: Richard Fish RN)2006 (Given - Provider: Piper Freeman RN) 08 (Given - Provider: Juan Carlos Wang LPN) Continuous Medication Order 11/01/2023 11/02/2023 11/03/2023 Furosemide (Lasix) 500 mg in NSS (5 mg/mL) infusion 100 mL (CANCELED) 10 mg/hr (2 mL/hr), Intravenous, CONTINUOUS, Starting on 11/01/23 at 1630, Until Priti 11/02/23 at 1718, Please select this medication from the infusion pump library! Protect from Light!! CCU refrigerator 1630 (New Bag - Provider: Richard Fish RN - Comment: Nurse prepared, verified with MARTHA Gamboa as well as pharmacist Gonzales.)1900 (Rate Verify - Provider: Libby Duffy RN)2000 (Rate Verify - Provider: Libby Duffy RN)2100 (Rate Verify - Provider: Libby Duffy RN)2200 (Rate Verify - Provider: Libby Duffy RN)2300 (Rate Verify - Provider: Libby Duffy RN) 0000 (Rate Verify - Provider: Libby Duffy RN)0034 (Associate Infusion Pump - Provider: Libby Duffy RN)0100 (Rate Verify - Provider: Libby Duffy RN)0200 (Rate Verify - Provider: Libby Duffy RN)0300 (Rate Verify - Provider: Libby Duffy RN)0400 (Rate Verify - Provider: Libby Duffy RN)0408 (Restarted - Provider: Libby Duffy RN - Comment: restart current bag)0700 (Nurse Change - Provider: Richard Fish RN)0800 (Rate Verify - Provider: Richard Fish RN)1120 (New Bag - Provider: Richard Fish RN)1127 (Rate Verify - Provider: Richard Fish RN)1130 (New Bag - Provider: Richard Fish RN)1139 (Stopped - Provider: Richard Fish RN)1140 (Paused - Provider: Richard Fish RN)1142 (Restarted - Provider: Richard Fish RN)1143 (Stopped - Provider: Richard Fish RN)1144 (New Bag - Provider: Richard Fish RN)1624 (Rate Verify - Provider: Richard Fish RN)1718 (Stopped - Provider: Richard Fish RN) Furosemide (Lasix) 500 mg in NSS (5 mg/mL) infusion 100 mL () 10 mg/hr (2 mL/hr), Intravenous, CONTINUOUS, Starting on Priti 11/02/23 at 1800, Until Priti 11/02/23 at 1959, For 2 hours, Please select this medication from the infusion pump library! Protect from Light!! CCU refrigerator 1727 (New Bag - Provider: Richard Fish RN - Comment: Same bag that was mixed and verified with MARTHA Bee)1910 (Nurse Change - Provider: Piper Freeman RN)194 (Stopped - Provider: Juan Carlos Wang LPN)1999 (Stopped - Provider: Piper Freeman RN) Furosemide (Lasix) 500 mg in NSS (5 mg/mL) infusion 100 mL 10 mg/hr (2 mL/hr), Intravenous, CONTINUOUS, Starting on Mon11/03/23 at 1100, Until Mon11/03/23 at 1847, Please select this medication from the infusion pump library! Protect from Light!! 1130 (New Bag - Provider: Nataly Caruso RN)1242 (Rate Verify - Provider: Juan Carlos Wang LPN)1524 (Rate Verify - Provider: Nataly Caruso RN)1525 (Nurse Change - Provider: Nataly Caruso RN - Comment: verified with MARTHA Florez)1710 (Rate Verify - Provider: Juan Carlos Wang LPN)1727 (Rate Verify - Provider: Vikki Quinteros RN)184 (Due: Stopped) PRN Medication Order 11/01/2023 11/02/2023 11/03/2023 Acetaminophen (Tylenol) supp 650 mg 650 mg, Rectal, Q6H PRN Pain, Mild, Use if patient unable to take oral acetaminophen, Starting on Mon11/01/23 at 1629, Until Mon11/03/23 at 1847, Maximum of 4 grams (4000mg) per day. Acetaminophen (Tylenol) tab 650 mg 650 mg, Oral, Q6H PRN Pain, Mild, Fever >38C(100.5F), Starting on Mon11/01/23 at 1629, Until Mon11/03/23 at 1847, Maximum of 4 grams (4000 mg) per day. Albuterol Sulfate (Proventil) (2.5 MG/3ML) 0.083% inhalation solution 2.5 mg 2.5 mg, Nebulizer, Q4H PRN Dyspnea, Starting on Mon11/01/23 at 1727, Until Mon11/03/23 at 1847 Bisacodyl (Dulcolax) supp 10 mg(Linked Group 2) 10 mg, Rectal, DAILY PRN Constipation, Starting on 11/04/23 at 1629, Until Mon11/03/23 at 184, Administer if no bowel movement within past 72 hours and patient unable to take oral medications. Bisacodyl (Dulcolax) tab 5 mg(Linked Group 2) 5 mg, Oral, DAILY PRN Constipation, Starting on Mon11/04/23 at 1629, Until Mon11/03/23 at 184, Administer in addition to polyethylene glycol and senna-docusate if no bowel movement in past 72 hours. dextrose 50% inj 25 mL 25 mL, IV Push, PRN Hypoglycemia, Other, For blood glucose 54 - 69 mg/dL or 70 - 100 mg/dL with symptoms AND patient is unresponsive, NPO, OR unable to swallow, Starting on Mon11/02/23 at 1338, Until Mon11/03/23 at 184, Administer IV. Recheck blood glucose after 15 minutes. Notify provider. dextrose 50% inj 50 mL 50 mL, IV Push, PRN Hypoglycemia, Other, For blood glucose below 54 mg/dL AND patient unresponsive, NPO, OR unable to swallow, Starting on Mon11/02/23 at 1338, Until Mon11/03/23 at 184, Administer IV. Recheck blood glucose in 15 minutes. Notify provider. glucagon (Glucagen) inj 1 mg 1 mg, Intramuscular, PRN Hypoglycemia, Other, If patient is unresponsive, or NPO and has no IV access, Starting on Mon11/02/23 at 1338, Until Mon11/03/23 at 184, NPO and no IV access with either 1) blood glucose less than 100 mg/dL and symptomatic OR 2) blood glucose less than 70 mg/dL and asymptomatic Glucose (Glutose 15) 40 % gel 15 g of glucose 15 g of glucose, Oral, PRN Hypoglycemia (low sugar), Other, For blood glucose 54 - 69 mg/dL or 70 - 100 mg/dL with symptoms AND patient alert WITH difficulty chewing/swallowing, Starting on Mon11/02/23 at 1338, Until Mon11/03/23 at 1847, Administer gel. Recheck blood glucose after 15 minutes. Notify provider. 37.5 gram tube = 15 grams glucose = 1 each Glucose (Glutose 15) 40 % gel 30 g of glucose 30 g of glucose, Oral, PRN Hypoglycemia (low sugar), Other, For blood glucose below 54 mg/dL AND patient alert WITH difficulty chewing/swallowing, Starting on Mon11/02/23 at 1338, Until Mon11/03/23 at 1847, Administer gel. Recheck blood glucose after 15 minutes. Notify provider. 37.5 gram tube = 15 grams glucose = 1 each glucose chew tab 16 g 16 g, Oral, PRN Hypoglycemia, Other, For blood glucose 54 - 69 mg/dL or 70 - 100 mg/dL with symptoms and patient alert without difficulty chewing/swallowing., Starting on Mon11/02/23 at 1338, Until Mon11/03/23 at 1847 ondansetron (Zofran) inj 4 mg 4 mg, IV Push, Q6H PRN Nausea, Starting on Mon11/01/23 at 1629, Until Mon11/03/23 at 1847 perflutren lipid microsphere inj SUSP 1.956 mg () 1.956 mg, Intravenous, ONCE PRN Other, For Echo Only - Suboptimal Echo Images, Starting on Mon11/02/23 at 1022, Until Mon11/02/23 at 1221, For 2 hours, Administer IVP over 45 seconds, Cardiac Studies_HODHOV 1030 (Given - Provider: Nely Ball RDCS - Comment: 2 cc's) Polyethylene Glycol 3350 (Miralax) oral powder 17 g(Linked Group 2) 17 g (1 Packet), Oral, DAILY PRN Constipation, Starting on Mon11/01/23 at 1629, Until Mon11/03/23 at 1847, Administer if no bowel movement within past 24 hours. 1133 (Given - Provider: Osbaldo Fish RN) senna-docusate (Senokot-S) 1 Tablet(Linked Group 2) 1 Tablet, Oral, BID PRN Constipation, Starting on Mon11/03/23 at 1629, Until Mon11/03/23 at 1847, Administer in addition to polyethylene glycol if no bowel movement within past 48 hours. sodium chloride 0.9 % flush/inj 3 mL 3 mL, IV Push, PRN Other, Line Patency, Starting on Mon11/01/23 at 1628, Until Mon11/03/23 at 1847, Do not flush if lock, PICC, or central line not in place, IV infusing or unable to flush Linked Groups Order Group 1: Ventilation Method: Acute Non-Invasive --- Indication (Adult Only)? Acute CHF --- PEEP/EPAP/CPAP: 5 --- IPAP/Total PIP: 10 --- Changes Per Adult Protocol: Yes (CANCELED) CONTINUOUS, Starting on Mon11/01/23 at 1550, Until Specified Routine And oxygen GAS (CANCELED)Jump to med Inhalation, OXYGEN, First dose on Mon11/01/23 at 1630, Until Discontinued, Device/Managed by: NIV or Ventilator Device, Goal SPO2 (%): 91-95, Notify Provider: For sudden DECREASE in resting SPO2 to less than 85% and when escalating delivery device., Initial FiO2 (%): 40, Titration Interval: Q2 minutes and as needed., Wean patient off Oxygen when the oxygen saturation is greater than or equal to 93% Group 2: Polyethylene Glycol 3350 (Miralax) oral powder 17 gJump to med 17 g (1 Packet), Oral, DAILY PRN Constipation, Starting on Mon11/01/23 at 1629, Until Mon11/03/23 at 1847, Administer if no bowel movement within past 24 hours. And senna-docusate (Senokot-S) 1 TabletJump to med 1 Tablet, Oral, BID PRN Constipation, Starting on Mon11/03/23 at 1629, Until Mon11/03/23 at 1847, Administer in addition to polyethylene glycol if no bowel movement within past 48 hours. And Bisacodyl (Dulcolax) tab 5 mgJump to med 5 mg, Oral, DAILY PRN Constipation, Starting on Mon11/04/23 at 1629, Until Mon11/03/23 at 1847, Administer in addition to polyethylene glycol and senna-docusate if no bowel movement in past 72 hours. And Bisacodyl (Dulcolax) supp 10 mgJump to med 10 mg, Rectal, DAILY PRN Constipation, Starting on 11/04/23 at 1629, Until 11/03/23 at 1847, Administer if no bowel movement within past 72 hours and patient unable to take oral medications. documented in this encounter Additional Health Concerns Infection Onset Date Last Indicated Resolved Time Respiratory Rule-Out 11/01/2023 11/01/2023 024 1:32 PM [...] the patient have Health Care Power of Mechanical Design Engineer Products? No Full Code 08/29/2023 8:14 PM 09/01/2023 6:46 PM This o rder reflects the patients wishes and were consensually agreed upon. Question Answer Comments Discussion of Advance Directives occurred with: Patient Does the patient have a Living Will? No Does the patient have Health Care Power of Mechanical Design Engineer Products? No Care Teams Clay Roaster Relationship Specialty Start Date End Date Jeanna Bal PA-C [address] [address] [place] [id number] PCP - General Physician Film Examiner 06/13/17 documented as of this encounter
--- OUTSIDE RECORDS SUMMARY | 2023-12-06 21:42 | External Medical Summary ---
Author Name Unknown Address Unknown Organization [id number]:LABORATORY [facility] [place] - [address] [facility] [place] [address] Laboratory Report Ordering Provider Test Date Status LETI WILSON 11/03/2023 19:21:00 Final Observation Date Value Abnormality Reference (Units ) Status BUN 11/03/2023 19:21:00 49 Above high normal 6-20 (mg/dL) Final Creatinine 11/03/2023 19:21:00 1.4 Above high normal 0.5-1.0 (mg/dL) Final Glomerular filtration rate/1.73 sq M.predicted [Volume Rate/Area] in Serum, Plasma or Blood by Creatinine-based formula (CKD-EPI) 11/03/2023 19:21:00 36 Below low normal >=60 (mL/min) Final eGFR is calculated based on the CKD-EPI 2020 equation Sodium 11/03/2023 19:21:00 132 Below low normal 135 -146 (mmol/L) Final Potassium 11/03/2023 19:21:00 4.2 3.5-5.1 (m mol/L) Final Cl 11/03/2023 19:21:00 93 Below low normal 98- 107 (mmol/L) Final CO2 11/03/2023 19:21:00 26 22-32 (mmo l/L) Final Anion gap 11/03/2023 19:21:00 13 7-15 (mmol /L) Final Glucose 11/03/2023 19:21:00 118 70-120 (mg /dL) Final Albumin 11/03/2023 19:21:00 3.4 Below low normal 3.8 -5.0 (g/dL) Final AST (Aspartate aminotransferase) 11/03/2023 19:21:00 46 Above high normal 10-35 (U/L) Final Alk Phos 11/03/2023 19:21:00 170 Above high normal 35 -130 (U/L) Final Bilirubin, Total 11/03/2023 19:21:00 1.8 Above high no rmal <=1.2 (mg/dL) Final Calcium 11/03/2023 19:21:00 8.7 8.4-10.2 ( mg/dL) Final Protein 11/03/2023 19:21:00 7.2 6.0-8.3 (g /dL) Final ALT (Alanine aminotransferase) 11/03/2023 19:21:00 27 10-35 (U/L) Deo mohan Performing Location LABORATORY [facility] [place] - [address] [facility] [address]
--- OUTSIDE RECORDS SUMMARY | 2023-12-06 21:42 | External Medical Summary ---
Author Name Unknown Address Unknown Organization [id number]:LABORATORY [facility] - [address] [place] [address] Laboratory Report Ordering Provider Test Date Status LETI WILSON 11/03/2023 19:21:00 Final Observation Date Value Abnormality Reference (Units ) Status Magnesium 11/03/2023 19:21:00 2.4 1.5-2.6 (m g/dL) Final Performing Location LABORATORY [facility] - [address] [place] [address]
--- OUTSIDE RECORDS SUMMARY | 2023-12-06 21:42 | External Medical Summary ---
Author Name Unknown Address Unknown Organization K1G:LABORATORY [facility] - [address] [facility] [address] Laboratory Report Ordering Provider Test Date Status OPHELIA SCHWARZ 11/03/2023 16:25:27 Final Observation Date Value Abnormality Reference (Units ) Status Glucose Point of Care 11/03/2023 16:25:27 204 Above high normal 70-120 (mg/dL) Final Performing Location LABORATORY [facility] - [address] [facility] [address]
--- OUTSIDE RECORDS SUMMARY | 2023-12-06 21:42 | External Medical Summary | Summary of Care ---
Author Name Unknown Organization [facility] Address [address] [place] [address] Phone [phone] Care Team Providers Care Press Breaker Name Role Phone Jeanna Bal PA-C Primary Care Provi aydin Encounter Details Date Type Department Care Team (Late st Contact Info) Description 11/01/2023 CardioDiagnostic Study Unspecified Department Meera Thompson MD [address] [place] [address] EKG Report Allergies Active Allergy Reactions Criticality Noted Date Comments Amoxicillin Hives Medium 03/22/2016 Gatifloxacin Nausea/vomiting Medium 03/22/2016 Latex Rash Medium 03/22/2016 Other reaction(s): johnson documented as of this encounter (statuses as of 11/03/2023) Medications Medication Sig Dispensed Refills Start Date [...] Suspended Preparation H 1-0.25-14.4-15 % External Cream (Gbptcp-QF-Choyrp in-Petrolatum) Apply 1 Application topically to affected [...] 50 MCG/ACT Nasal Suspension (Flonase) Administer 1 [place] into nostril in the morning. 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 03/22/2016 Essential hypertension with goal blood pressure less than 140/90 03/22/2016 Dyslipidemia, goal to be determined 03/22/2016 documented as of this encounter (statuses as of 11/03/2023) Resolved Problems Problem Noted Date Diagnosed Date Resolved Date Acute respiratory failure due to COVID-19 07/30/2023 08/01/2023 Pneumonia due to COVID-19 virus 07/30/2023 08/01/2023 NSTEMI (non-ST elevated myoc ardial infarction) 09/30/2021 10/05/2021 Pain in both lower extremities 03/22/2016 07/30/2023 documented as of this encounter (statuses as of 11/03/2023) Immunizations Name Administration Dates Next Due COVID-19 [...] No 10/03/2023 documented as of this encounter Procedure Notes * Reagan Anne DO - 11/01/2023 1:06 PM EDTAssociated Order(s): EKG REPORT REASON FOR STUDY: CONCLUSIONS: Atrial fibrillation ST & T wave abnormality, consider lateral ischemia When compared with ECG of 01-Nov-2023 13:00, The axis Shifted right ST now depressed in Lateral leads Ventricular Rate: 77 Atrial Rate: 78 QRS Duration: 108 QT/QTc: 400/452 ms P-R-T Ciales: 0 : -27 : 154 degrees documented in this encounter Plan of Treatment Upcoming Encounters Date Type Department Care Team (Late st Contact Info) Description 11/07/2023 8:30 AM EDT Telemedicine Pulmonary Medicine, [facility] [address] [place] [address] Yocasta Proctor CRNP [address] [place] [address] 11/24/2023 10:30 AM EDT Office Visit Cardiology, [facility] [address] [place] [address] Jennifer Queen PA-C [address] [place] [address] 12/13/2023 10:00 AM EDT Office Visit Gastroenterology, [facility] [address] [place] [address] Trenton Cameron CRNP [address] [place] [address] 02/20/2024 2:20 PM EDT Office Visit Nephrology, [facility] [address] [facility] [place], [place] [address] Jef Kaminski MD [address] [facility] [place] [address] Health Maintenance Due Date Last Done Comments Pneumococcal Vaccine: 65+ Years (1 of 2 - PCV) 11/29/1941 Depression Screening 1947 Albumin/Creatinine Ratio 11/29/1955 DTaP,Tdap,and Td Vaccines (1 - Tdap) 1954 Zoster Vaccines (2 of 3) 08/23/2012 06/28/2012 COVID-19 Vaccine ( - season) 2023 08/05/2022, 05/26/2021, 09/26/2020, Additional [...] Priority Date/Time Associated Diagnosis Comments EKG REPORT 11/01/2023 1:06 PM EDT documented in this encounter Results * EKG REPORT (11/01/2023 1:06 PM EDT) 11/01/2023 1:06 PM EDT Narrative Procedure Note Omid Reagan Ajvi, DO - 11/01/2023 1:06 PM EDT REASON FOR STUDY: CONCLUSIONS: Atrial fibrillation ST & T wave abnormality, consider lateral ischemia When compared with ECG of 01-Nov-2023 13:00, The axis Shifted right ST now depressed in Lateral leads Ventricular Rate: 77 Atrial Rate: 78 QRS Duration: 108 QT/QTc: 400/452 ms P-R-T Ciales: 0 : -27 : 154 degrees Meera Thompson MD EKG documented in this encounter Additional Health Concerns Infection Onset Date Last Indicated Resolved Time Respiratory Rule-Out 11/01/2023 11/01/2023 024 1:32 PM EDT COVID-19 Rule-Out 11/01/2023 11/01/2023 11/01/2023 1:32 PM EDT documented as of this encounter Advance Directives Latest Code Status on File Code Status Date Activated Date Inactivated Comments Limited Code 11/01/2023 4:29 PM This order reflects the patients wishes and were consensually agreed upon. Question Answer Comments Discussion of Advance Directives occurred with: Patient Intubation? Yes Cardiac Compressions? No Code Status History Code Status Date Activated Date Inactivated Comments No Code 10/03/2023 8:57 PM 10/05/2023 10:38 PM This o rder reflects the patients wishes and were consensually agreed upon. Question Answer Comments Discussion of Advance Directives occurred with: Family Does the patient have a Living Will? No Does the patient have Health Care Power of Manager Brand? No Full Code 08/29/2023 8:14 PM 09/01/2023 6:46 PM This order reflects the patients wishes and were consensually agreed upon. Question Answer Comments Discussion of Advance Directives occurred with: Patient Does the patient have a Living Will? No Does the patient have Health Care Power of Manager Brand? No Full Code 08/19/2023 2:26 PM 08/25/2023 7:30 PM This order reflects the patients wishes and were consensually agreed upon. Question Answer Comments Discussion of Advance Directives occurred with: Patient Does the patient have a Living Will? No Does the patient have Health Care Power of Manager Brand? No Full Code 07/30/2023 11:50 AM 08/02/2023 5:34 PM This order reflects the patients wishes and were consensually agreed upon. Question Answer Comments Discussion of Advance Directives occurred with: Patient Care Teams Press Breaker Relationship Specialty Start Date End Date Jeanna Bal PA-C [address] [place] [address] [place] [id number] PCP - General Physician Chair And Couch Maker 06/13/17 documented as of this encounter
--- OUTSIDE RECORDS SUMMARY | 2023-12-06 21:42 | External Medical Summary ---
Author Name Unknown Address Unknown Organization K1G:LABORATORY [facility] - [facility] [address] Laboratory Report Ordering Provider Test Date Status OPHELIA SCHWARZ 11/03/2023 07:43:34 Final Observation Date Value Abnormality Reference (Units ) Status Glucose Point of Care 11/03/2023 07:43:34 97 70-120 (mg/dL) Final Performing Location LABORATORY [facility] - [address] [facility] [address]
--- OUTSIDE RECORDS SUMMARY | 2023-12-06 21:42 | External Medical Summary ---
Author Name Unknown Address Unknown Organization K01:[place] [place] [address] [place] [address] Laboratory Report Ordering Provider Test Date Status LETI WILSON 11/03/2023 19:22:00 Final Observation Date Value Abnormality Reference (Units ) Status WBC, Total 11/03/2023 19:22:00 9.84 4.00-10.80 (K/uL) Final RBC 11/03/2023 19:22:00 3.55 3.85-5.15 (M/uL) Final Hemoglobin 11/03/2023 19:22:00 9.8 Below low normal 12.0-15.3 (g/dL) Final HCT 11/03/2023 19:22:00 31.6 Below low normal 36.0-45.2 (%) Final MCV 11/03/2023 19:22:00 89.0 81.5-97.5 (fL) Final MCH 11/03/2023 19:22:00 27.6 27.0-34.0 (pg) Final MCHC 11/03/2023 19:22:00 31.0 32.0-36.0 (g/dL) Final RDW 11/03/2023 19:22:00 16.7 11.5-15.5 (%) Final Platelets 11/03/2023 19:22:00 331 140-400 (K/uL) Final MPV 11/03/2023 19:22:00 9.6 6.6-11.1 (fL) Final Nucleated erythrocytes/100 leukocytes [Ratio] in Blood by Automated count 11/03/2023 19:22:00 0 <=0 (/100 WBCs) Final Performing Location [facility] [place] [address] [place] [address]
--- OUTSIDE RECORDS SUMMARY | 2023-12-06 21:42 | External Medical Summary ---
Author Name Unknown Address Unknown Organization K01:LABORATORY [facility] - [address] [place] [address] Laboratory Report Ordering Provider Test Date Status LETI WILSON 11/03/2023 19:21:00 Final Observation Date Value Abnormality Reference (Units ) Status T4, Free 11/03/2023 19:21:00 1.3 0.9-1.7 (n g/dL) Final Performing Location LAB[facility]ATORY [facility] - [address] [place] [address]
--- OUTSIDE RECORDS SUMMARY | 2023-12-06 21:42 | External Medical Summary ---
Author Name Unknown Address Unknown Organization K1G:LABORATORY [facility] - [facility] [address] Laboratory Report Ordering Provider Test Date Status OPHELIA SCHWARZ 11/03/2023 11:29:00 Final Observation Date Value Abnormality Reference (Units ) Status Glucose Point of Care 11/03/2023 11:29:00 120 70-120 (mg/dL) Final Performing Location LABORATORY [facility] - [address] [facility] [address]
--- OUTSIDE RECORDS SUMMARY | 2023-12-06 21:42 | External Medical Summary ---
Author Name Unknown Address Unknown Organization K01:[place] [place] [address] [place] [address] Laboratory Report Ordering Provider Test Date Status LETI WILSON 11/04/2023 06:29:00 Final Warfarin Therapy
INR: 2 .0-3.0 conventional anticoagulation
INR: 2.5- 3.5 high intensity anticoagulation Observation Date Value Abnormality Reference (Units ) Status PT 11/04/2023 06:29:00 26.0 Above high normal 11 .6-15.2 (seconds) Final INR 11/04/2023 06:29:00 2.4 Above high normal 0. 8-1.2 Final Performing Location LAB[facility]ORY [facility] [place] [address] [place] [address]
--- OUTSIDE RECORDS SUMMARY | 2023-12-06 21:42 | External Medical Summary ---
Author Name Unknown Address Unknown Organization K01:LABORATORY [facility] [place] - [facility] [address] [place] [address] Laboratory Report Ordering Provider Test Date Status LETI WILSON 11/04/2023 06:29:00 Final Observation Date Value Abnormality Reference (Units ) Status WBC, Total 11/04/2023 06:29:00 10.89 Above high normal 4.00-10.80 (K/uL) Final RBC 11/04/2023 06:29:00 3.47 3.85-5.15 (M/uL) Final Hemoglobin 11/04/2023 06:29:00 9.7 Below low normal 12.0-15.3 (g/dL) Final HCT 11/04/2023 06:29:00 31.6 Below low normal 36.0-45.2 (%) Final MCV 11/04/2023 06:29:00 91.1 81.5-97.5 (fL) Final MCH 11/04/2023 06:29:00 28.0 27.0-34.0 (pg) Final MCHC 11/04/2023 06:29:00 30.7 32.0-36.0 (g/dL) Final RDW 11/04/2023 06:29:00 16.9 11.5-15.5 (%) Final Platelets 11/04/2023 06:29:00 333 140-400 (K/uL) Final MPV 11/04/2023 06:29:00 9.6 6.6-11.1 (fL) Final Nucleated erythrocytes/100 leukocytes [Ratio] in Blood by Automated count 11/04/2023 06:29:00 0 <=0 (/100 WBCs) Final Performing Location LABORATORY [facility] [place] - [address] [place] [address]
--- OUTSIDE RECORDS SUMMARY | 2023-12-06 21:42 | External Medical Summary ---
Author Name Unknown Address Unknown Organization K01:LAB[facility]ORY [facility] [place] - [address] [facility] [place] [address] Laboratory Report Ordering Provider Test Date Status LETI WILSON 11/04/2023 06:29:00 Final Observation Date Value Abnormality Reference (Units ) Status Triglyceride 11/04/2023 06:29:00 50 <=174 ( mg/dL) Final Triglyceride Reference Range s (mg/dL):
<150 Acceptable
150-174 Borderline high
175-499 High
>=500 Very high Cholesterol 11/04/2023 06:29:00 49 <200 (mg /dL) Final Total Cholesterol Reference Ranges (mg/dL):
<200 Desirable
200-239 Borderline high
>=240 High HDL 11/04/2023 06:29:00 24 Below low normal >49 (mg/dL) Final HDL Cholesterol Reference Ra nges (mg/dL):
>=60 High (Desirable)
<50 Low (Undesirable) For Females
<40 Low (Undesirable) For Males NON-HDL CHOLESTEROL 11/04/2023 06:29:00 25 <=159 (mg/dL) Final Non-HDL Cholesterol Referenc e Range (mg/dL):
<100 Target level for high risk ASCVD patient
<130 Optimal for general population
130-159 Near optimal for general population
160-189 Borderline High
190-219 High
>=220 Very High LDL, (calculated) 11/04/2023 06:29:00 15 <= 129 (mg/dL) Final LDL Cholesterol Reference Ra nges (mg/dL):
<70 Target level for high risk ASCVD patient
<100 Optimal for general population
100-129 Near optimal for general population
130-159 Borderline high
160-189 High
>=190 Very high Performing Location LABORATORY [facility] [place] - [address] [facility] [address]
--- OUTSIDE RECORDS SUMMARY | 2023-12-06 21:42 | External Medical Summary ---
Author Name Unknown Address Unknown Organization K01:[facility]ATORY [facility] [place] [address] [place] [address] Laboratory Report Ordering Provider Test Date Status LETI WILSON 11/03/2023 21:03:00 Final Observation Date Value Abnormality Reference (Units ) Status Lactic Acid 11/03/2023 21:03:00 2.1 Above high normal 0.4-2.0 (mmol/L) Final Performing Location LABORATORY [facility] - [address] [place] [address]
--- OUTSIDE RECORDS SUMMARY | 2023-12-06 21:43 | External Medical Summary ---
Author Name Unknown Address Unknown Organization K1G:LABORATORY [facility] - [facility] [address] Laboratory Report Ordering Provider Test Date Status WIL LANE 11/01/2023 12:32:20 Final ADMITTED patient Observation Date Value Abnormality Reference (Units ) Status Adenovirus DNA [Presence] in Nasopharynx by DEAN with non-probe detection 11/01/2023 12:32:20 Negative Negative Final Human coronavirus 229E RNA [Presence] in Nasopharynx by DEAN with non-probe detection 11/01/2023 12:32:20 Negative Negative Final Human coronavirus HKU1 RNA [Presence] in Nasopharynx by DEAN with non-probe detection 11/01/2023 12:32:20 Negative Negative Final Human coronavirus NL63 RNA [Presence] in Nasopharynx by DEAN with non-probe detection 11/01/2023 12:32:20 Negative Negative Final Human coronavirus OC43 RNA [Presence] in Nasopharynx by DEAN with non-probe detection 11/01/2023 12:32:20 Negative Negative Final SARS-CoV-2 (COVID-19) RNA [Presence] in Nasopharynx by DEAN with non-probe detection 11/01/2023 12:32:20 Negative Negative Final Human metapneumovirus RNA [Presence] in Nasopharynx by DEAN with non-probe detection 11/01/2023 12:32:20 Negative Negative Final Rhinovirus+Enterovirus RNA [Presence] in Nasopharynx by DEAN with non-probe detection 11/01/2023 12:32:20 Negative Negative Final Influenza virus A RNA [Presence] in Nasopharynx by DEAN with non-probe detection 11/01/2023 12:32:20 Negative Negative Final Influenza virus B RNA [Presence] in Nasopharynx by DEAN with non-probe detection 11/01/2023 12:32:20 Negative Negative Final Parainfluenza virus 1 RNA [Presence] in Nasopharynx by DEAN with non-probe detection 11/01/2023 12:32:20 Negative Negative Final Parainfluenza virus 2 RNA [Presence] in Nasopharynx by DEAN with non-probe detection 11/01/2023 12:32:20 Negative Negative Final Parainfluenza virus 3 RNA [Presence] in Nasopharynx by DEAN with non-probe detection 11/01/2023 12:32:20 Negative Negative Final Parainfluenza virus 4 RNA [Presence] in Nasopharynx by DEAN with non-probe detection 11/01/2023 12:32:20 Negative Negative Final Respiratory syncytial virus RNA [Presence] in Nasopharynx by DEAN with non-probe detection 11/01/2023 12:32:20 Negative Negative Final Bordetella pertussis.pertussis toxin promoter region [Presence] in Nasopharynx by DEAN with non-probe detection 11/01/2023 12:32:20 Negative Negative Final Chlamydophila pneumoniae DNA [Presence] in Nasopharynx by DEAN with non-probe detection 11/01/2023 12:32:20 Negative Negative Final Mycoplasma pneumoniae DNA [Presence] in Nasopharynx by DEAN with non-probe detection 11/01/2023 12:32:20 Negative Negative Final Bordetella parapertussis [id number] DNA [Presence] in Nasopharynx by DEAN with non-probe detection 11/01/2023 12:32:20 Negative Negative Final
The primers that detect Rhinovirus may cross react with some Enterorviruses. The validation of bronchial specimens, tracheal aspirates, and throats for this assay was developed and performance characteristics determined by [employer]. The validation of alternate specimen types has not been cleared or approved by the U.S. Food and Drug Administration (FDA). It has been determined that such clearance or approval is not necessary. Per[facility] Location [facility] - [address] [place] [phone]
--- OUTSIDE RECORDS SUMMARY | 2023-12-06 21:43 | External Medical Summary ---
Author Name Unknown Address Unknown Organization K1G:LABORATORY [address] [address] Laboratory Report Ordering Provider Test Date Status WIL L[address] 11/01/2023 12:32:05 Final Observation Date Value Abnormality Reference (Units ) Status Lactic Acid, Whole Blood 11/01/2023 12:32:05 3.8 Above high normal 0.4-2.0 (mmol/L) Final Performing Location LABORATORY [facility] - [address] [place] [phone]
--- OUTSIDE RECORDS SUMMARY | 2023-12-06 21:43 | External Medical Summary ---
Author Name Unknown Address Unknown Organization K1G:LABORATORY [facility] - [address] [place] [phone] Laboratory Report Ordering Provider Test Date Status OPHELIA SCHWARZ 11/03/2023 05:30:00 Final Observation Date Value Abnormality Reference (Units ) Status Magnesium 11/03/2023 05:30:00 2.4 1.5-2.6 (m g/dL) Final Performing Location LABORATORY [facility] - [address] [facility] [address]
--- OUTSIDE RECORDS SUMMARY | 2023-12-06 21:43 | External Medical Summary ---
Author Name Unknown Address Unknown Organization K01:LABORATORY [facility] - [address] [facility] [address] Laboratory Report Ordering Provider Test Date Status OPHELIA SCHWARZ 11/03/2023 05:30:00 Final Observation Date Value Abnormality Reference (Units ) Status HbA1C 11/03/2023 05:30:00 5.9 Above high normal 4. 0-5.6 (%) Final The use of HbA1c to monitor glycemic status is based on normal hemoglobin and HbA composition. This test should not be used in patients with abnormal hemoglobin that affects the half life of the red blood cell or the in vivo glycation rates. Glucose, estimated average 11/03/2023 05:30:00 123 <126 (mg/dL) Final Performing Location LABORATORY [facility] - [address] [place] [address]
--- OUTSIDE RECORDS SUMMARY | 2023-12-06 21:43 | External Medical Summary ---
Author Name Unknown Address Unknown Organization K01:LABORATORY [facility] - [address] [place] [address] Laboratory Report Ordering Provider Test Date Status OPHELIA SCHWARZ 11/02/2023 13:48:00 Final Observation Date Value Abnormality Reference (Units ) Status ABO 11/02/2023 13:48:00 A Final RH 11/02/2023 13:48:00 Positive Final RED BLOOD CELL ANTIBODY SCREEN 11/02/2023 13:48:00 Negative Final SPECIMEN EXPIRATION DATE 11/02/2023 13:48:00 11/05/2023 23:59 Final Performing Location LABORATORY [facility] - [address] [place] [address]
--- OUTSIDE RECORDS SUMMARY | 2023-12-06 21:43 | External Medical Summary ---
Author Name Unknown Address Unknown Organization K1G:LABORATORY [facility] - [address] [place] [phone] Laboratory Report Ordering Provider Test Date Status OPHELIA SCHWARZ 11/01/2023 17:40:00 Final Observation Date Value Abnormality Reference (Units ) Status Troponin T 11/01/2023 17:40:00 72 Above high normal < =14 (ng/L) Final Performing Location LABORATORY [facility] - [address] [place] [phone]
--- OUTSIDE RECORDS SUMMARY | 2023-12-06 21:43 | External Medical Summary ---
Author Name Unknown Address Unknown Organization K1G:LABORATORY [facility] - [facility]0 [facility] [address] Laboratory Report Ordering Provider Test Date Status OPHELIA SCHWARZ 11/02/2023 05:46:00 Final Observation Date Value Abnormality Reference (Units ) Status Phosphate 11/02/2023 05:46:00 4.4 2.5-4.8 (m g/dL) Final Performing Location LABORATORY [facility] - [address] [facility] [address]
--- OUTSIDE RECORDS SUMMARY | 2023-12-06 21:43 | External Medical Summary ---
Author Name Unknown Address Unknown Organization K1G:LABORATORY [facility] - [address] [place] [address] Laboratory Report Ordering Provider Test Date Status OPHELIA SCHWARZ 11/03/2023 05:30:00 Final Observation Date Value Abnormality Reference (Units ) Status WBC, Total 11/03/2023 05:30:00 9.69 4.00-10.8 0 (K/uL) Final RBC 11/03/2023 05:30:00 3.34 3.85-5.15 (M/uL) Final Hemoglobin 11/03/2023 05:30:00 9.1 Below low normal 12 .0-15.3 (g/dL) Final HCT 11/03/2023 05:30:00 30.3 Below low normal 36. 0-45.2 (%) Final MCV 11/03/2023 05:30:00 90.7 81.5-97.5 (fL) Final MCH 11/03/2023 05:30:00 27.2 27.0-34.0 (pg) Final MCHC 11/03/2023 05:30:00 30.0 32.0-36.0 (g/dL) Final RDW 11/03/2023 05:30:00 16.5 11.5-15.5 (%) Final Platelets 11/03/2023 05:30:00 305 140-400 (K /uL) Final MPV 11/03/2023 05:30:00 9.3 6.6-11.1 ( fL) Final Performing Location LABORATORY [facility] - [address] [place] [address]
--- OUTSIDE RECORDS SUMMARY | 2023-12-06 21:43 | External Medical Summary ---
Author Name Unknown Address Unknown Organization K1G:LABORATORY [facility] - [address] [place] [address] Laboratory Report Ordering Provider Test Date Status OPHELIA SCHWARZ 11/02/2023 05:46:00 Final Observation Date Value Abnormality Reference (Units ) Status WBC, Total 11/02/2023 05:46:00 8.86 4.00-10.8 0 (K/uL) Final RBC 11/02/2023 05:46:00 3.21 3.85-5.15 (M/uL) Final Hemoglobin 11/02/2023 05:46:00 8.7 Below low normal 12 .0-15.3 (g/dL) Final HCT 11/02/2023 05:46:00 29.1 Below low normal 36. 0-45.2 (%) Final MCV 11/02/2023 05:46:00 90.7 81.5-97.5 (fL) Final MCH 11/02/2023 05:46:00 27.1 27.0-34.0 (pg) Final MCHC 11/02/2023 05:46:00 29.9 32.0-36.0 (g/dL) Final RDW 11/02/2023 05:46:00 16.2 11.5-15.5 (%) Final Platelets 11/02/2023 05:46:00 306 140-400 (K /uL) Final MPV 11/02/2023 05:46:00 9.6 6.6-11.1 ( fL) Final Performing Location LABORATORY [facility] - [address] [place] [phone]
--- OUTSIDE RECORDS SUMMARY | 2023-12-06 21:43 | External Medical Summary ---
Author Name Unknown Address Unknown Organization K1G:LABORATORY [facility] - [facility]0 [facility] [address] Laboratory Report Ordering Provider Test Date Status OPHELIA SCHWARZ 11/03/2023 05:30:00 Final Observation Date Value Abnormality Reference (Units ) Status Phosphate 11/03/2023 05:30:00 3.6 2.5-4.8 (m g/dL) Final Performing Location LABORATORY [facility] - [address] [facility] [address]
--- OUTSIDE RECORDS SUMMARY | 2023-12-06 21:43 | External Medical Summary ---
Author Name Unknown Address Unknown Organization K1G:LABORATORY [address] [address] Laboratory Report Ordering Provider Test Date Status WIL L[address] 11/01/2023 14:40:54 Final Observation Date Value Abnormality Reference (Units ) Status Lactic Acid, Whole Blood 11/01/2023 14:40:54 2.9 Above high normal 0.4-2.0 (mmol/L) Final Performing Location LABORATORY [facility] - [address] [place] [phone]
--- OUTSIDE RECORDS SUMMARY | 2023-12-06 21:43 | External Medical Summary ---
Author Name Unknown Address Unknown Organization K1G:LABORATORY [facility] - [address] [facility] [address] Laboratory Report Ordering Provider Test Date Status OPHELIA SCHWARZ 11/01/2023 20:14:13 Final Perform 4 hours after starti ng NIV Observation Date Value Abnormality Reference (Units ) Status Body temperature 11/01/2023 20:14:13 37.0 (C) Final pH of Arterial blood 11/01/2023 20:14:13 7.571 Above high normal 7.350-7.450 (units) Final Carbon dioxide [Partial pressure] in Arterial blood 11/01/2023 20:14:13 30.2 Below low normal 35.0-45.0 (mmHg) Final Oxygen [Partial pressure] in Arterial blood 11/01/2023 20:14:13 163.0 Above high normal 75.0-100.0 (mmHg) Final Base excess, Arterial 11/01/2023 20:14:13 5.6 Above high normal -2.0-2.0 (mmol/L) Final Hemoglobin [Mass/volume] in Blood by Oximetry 11/01/2023 20:14:13 9.3 Below low normal 12.0-15.3 (g/dL) Final Oxyhemoglobin, Arterial (FO2HB) 11/01/2023 20:14:13 98.3 94.0-99.0 (% total Hgb) Final Carboxyhemoglobin 11/01/2023 20:14:13 2.1 Above high normal <=1.5 (% total Hgb) Final Smokers: 0-9.0 % Methemoglobin 11/01/2023 20:14:13 0.6 <= 1.5 (% total Hgb) Final Deoxyhemoglobin/Hemoglo bin.total in Arterial blood 11/01/2023 20:14:13 <0.0 Below low normal 0.0-5.0 (% total Hgb) Final Oxygen content in Arterial blood 11/01/2023 20:14:13 Final Greater than 100% , rerun if necessary Oxygen/Total gas setting [Vo lume Fraction] Ventilator 11/01/2023 20:14:13 40% (%) Final on bipap O2 FLOW, ART[facility] - [facility] 11/01/2023 20:14:13 Not Provided (L/min) Final Bicarbonate, Venous, POC (i-STAT) 11/01/2023 20:14:13 27.7 23.0-31.0 (mmol/L) Fi nal Performing Location LABORATORY [facility] - [facility]0 [facility] [address]
--- OUTSIDE RECORDS SUMMARY | 2023-12-06 21:43 | External Medical Summary ---
Author Name Unknown Address Unknown Organization K1G:LABORATORY [facility] - [address] [place] [address] Laboratory Report Ordering Provider Test Date Status OPHELIA SCHWARZ 11/02/2023 02:10:11 Final Observation Date Value Abnormality Reference (Units ) Status Troponin T 11/02/2023 02:10:11 73 Above high normal < =14 (ng/L) Final Performing Location LABORATORY [facility] - [address] [place] [phone]
--- OUTSIDE RECORDS SUMMARY | 2023-12-06 21:43 | External Medical Summary ---
Author Name Unknown Address Unknown Organization K1G:LABORATORY [facility] - [address] [facility] [address] [address] Laboratory Report Ordering Provider Test Date Status OPHELIA SCHWARZ 11/02/2023 20:10:16 Final Observation Date Value Abnormality Reference (Units ) Status Glucose Point of Care 11/02/2023 20:10:16 142 Above high normal 70-120 (mg/dL) Final Performing Location LABORATORY [facility] - [address] [facility] [phone]
--- OUTSIDE RECORDS SUMMARY | 2023-12-06 21:43 | External Medical Summary ---
Author Name Unknown Address Unknown Organization K1G:LABORATORY [facility] - [address] [facility] [address] Laboratory Report Ordering Provider Test Date Status WIL L[address] 11/01/2023 13:36:38 Final Observation Date Value Abnormality Reference (Units ) Status BUN 11/01/2023 13:36:38 53 Above high normal 6-20 (mg/dL) Final Creatinine 11/01/2023 13:36:38 1.3 Above high normal 0.5-1.0 (mg/dL) Final Glomerular filtration rate/1.73 sq M.predicted [Volume Rate/Area] in Serum, Plasma or Blood by Creatinine-based formula (CKD-EPI) 11/01/2023 13:36:38 39 Below low normal >=60 (mL/min) Final eGFR is calculated based on the CKD-EPI 2020 equation Sodium 11/01/2023 13:36:38 128 Below low normal 135 -146 (mmol/L) Final Potassium 11/01/2023 13:36:38 4.2 3.5-5.1 (m mol/L) Final Cl 11/01/2023 13:36:38 90 Below low normal 98- 107 (mmol/L) Final CO2 11/01/2023 13:36:38 23 22-32 (mmo l/L) Final Anion gap 11/01/2023 13:36:38 15 7-15 (mmol /L) Final Glucose 11/01/2023 13:36:38 98 70-120 (mg /dL) Final Albumin 11/01/2023 13:36:38 3.3 Below low normal 3.8 -5.0 (g/dL) Final AST (Aspartate aminotransferase) 11/01/2023 13:36:38 44 Above high normal 10-35 (U/L) Final Alk Phos 11/01/2023 13:36:38 140 Above high normal 35 -130 (U/L) Final Bilirubin, Total 11/01/2023 13:36:38 1.8 Above high no rmal <=1.2 (mg/dL) Final Calcium 11/01/2023 13:36:38 10.1 8.4-10.2 ( mg/dL) Final Protein 11/01/2023 13:36:38 7.4 6.0-8.3 (g /dL) Final ALT (Alanine aminotransferase) 11/01/2023 13:36:38 27 10-35 (U/L) Deo mohan Performing Location LABORATORY [facility] - [address] [place] [phone]
--- OUTSIDE RECORDS SUMMARY | 2023-12-06 21:43 | External Medical Summary ---
Author Name Unknown Address Unknown Organization K1G:LABORATORY [facility] - [address] [place] [phone] Laboratory Report Ordering Provider Test Date Status WIL L[address] 11/01/2023 12:32:05 Final Exclude Heart Failure: <300 pg/mL
Diagnose Heart Failure:
Age <50 yr: >450 pg/mL
50-75 yr: >900 pg/mL
>75 yr: >1800 pg/mL
GFR is 30-59 mL/min: >1200 pg/mL or Age- adjusted values
GFR <30 mL/min: do not use, not reliable

Prognostic threshold: 1000 pg/mL Observation Date Value Abnormality Reference (Units ) Status BNP, Pro-hormone 11/01/2023 12:32:05 [address] Above high no rmal <300 (pg/mL) Final Performing Location LABORATORY [facility] - [address] [place] [phone]
--- OUTSIDE RECORDS SUMMARY | 2023-12-06 21:43 | External Medical Summary ---
Author Name Unknown Address Unknown Organization K1G:LABORATORY [facility] - [address] [place] [phone] Laboratory Report Ordering Provider Test Date Status OPHELIA SCHWARZ 11/02/2023 05:46:00 Final Observation Date Value Abnormality Reference (Units ) Status Troponin T 11/02/2023 05:46:00 76 Above high normal < =14 (ng/L) Final Performing Location LABORATORY [facility] - [address] [place] [phone]
--- OUTSIDE RECORDS SUMMARY | 2023-12-06 21:43 | External Medical Summary ---
Author Name Unknown Address Unknown Organization K1G:LABORATORY [facility] - [address] [facility] [address] Laboratory Report Ordering Provider Test Date Status OPHELIA SCHWARZ 11/03/2023 05:30:00 Final Observation Date Value Abnormality Reference (Units ) Status BUN 11/03/2023 05:30:00 55 Above high normal 6-20 (mg/dL) Final Creatinine 11/03/2023 05:30:00 1.5 Above high normal 0.5-1.0 (mg/dL) Final Glomerular filtration rate/1.73 sq M.predicted [Volume Rate/Area] in Serum, Plasma or Blood by Creatinine-based formula (CKD-EPI) 11/03/2023 05:30:00 35 Below low normal >=60 (mL/min) Final eGFR is calculated based on the CKD-EPI 2020 equation Sodium 11/03/2023 05:30:00 134 Below low normal 135 -146 (mmol/L) Final Potassium 11/03/2023 05:30:00 4.9 3.5-5.1 (m mol/L) Final Cl 11/03/2023 05:30:00 96 Below low normal 98- 107 (mmol/L) Final CO2 11/03/2023 05:30:00 25 22-32 (mmo l/L) Final Anion gap 11/03/2023 05:30:00 13 7-15 (mmol /L) Final Glucose 11/03/2023 05:30:00 91 70-120 (mg /dL) Final Albumin 11/03/2023 05:30:00 3.3 Below low normal 3.8 -5.0 (g/dL) Final AST (Aspartate aminotransferase) 11/03/2023 05:30:00 44 Above high normal 10-35 (U/L) Final Alk Phos 11/03/2023 05:30:00 161 Above high normal 35 -130 (U/L) Final Bilirubin, Total 11/03/2023 05:30:00 1.8 Above high no rmal <=1.2 (mg/dL) Final Calcium 11/03/2023 05:30:00 9.0 8.4-10.2 ( mg/dL) Final Protein 11/03/2023 05:30:00 7.1 6.0-8.3 (g /dL) Final ALT (Alanine aminotransferase) 11/03/2023 05:30:00 27 10-35 (U/L) Deo mohan Performing Location LABORATORY [facility] - [address] [place] [phone]
--- OUTSIDE RECORDS SUMMARY | 2023-12-06 21:43 | External Medical Summary ---
Author Name Unknown Address Unknown Organization K1G:LABORATORY [facility] - [address] [place] [phone] Laboratory Report Ordering Provider Test Date Status WIL LANE 11/01/2023 12:32:05 Final Observation Date Value Abnormality Reference (Units ) Status SYNC LEUKOCYTES IN BLOOD BY AUTOMATED COUNT 11/01/2023 12:32:05 10.87 Above high normal 4.00-10.80 (K/uL) Final Neutrophils/100 leukocytes in Blood by Manual count 11/01/2023 12:32:05 82.0 Above high normal 40.0-75.0 (%) Final Lymphocytes/100 leukocytes in Blood by Manual count 11/01/2023 12:32:05 12.0 Below low normal 18.0-42.0 (%) Final Monocytes/100 leukocytes in Blood by Manual count 11/01/2023 12:32:05 5.0 1.0-11.0 (%) Final Eosinophils/100 leukocytes in Blood by Manual count 11/01/2023 12:32:05 1.0 0.0-6.0 (%) Final Neutrophils [#/volume] in Blood by Manual count 11/01/2023 12:32:05 8.91 Above high normal 1.80-7.70 (K/uL) Final Lymphocytes [#/volume] in Blood by Manual count 11/01/2023 12:32:05 1.30 1.00-4.80 (K/uL) Final Monocytes [#/volume] in Blood by Manual count 11/01/2023 12:32:05 0.54 0.00-1.10 (K/uL) Final Eosinophils [#/volume] in Blood by Manual count 11/01/2023 12:32:05 0.11 0.00-0.70 (K/uL) Final Nucleated erythrocytes/100 leukocytes [Ratio] in Blood by Automated count 11/01/2023 12:32:05 Final Performing Location LABORATORY [facility] - [address] [facility] [phone]
--- OUTSIDE RECORDS SUMMARY | 2023-12-06 21:43 | External Medical Summary ---
Author Name Unknown Address Unknown Organization K1G:LABORATORY [facility] - [address] [place] [phone] Laboratory Report Ordering Provider Test Date Status WIL LANE 11/01/2023 12:32:05 Final Observation Date Value Abnormality Reference (Units ) Status Troponin T 11/01/2023 12:32:05 61 Above high normal < =14 (ng/L) Final Performing Location LABORATORY [facility] - [address] [place] [phone]
--- OUTSIDE RECORDS SUMMARY | 2023-12-06 21:43 | External Medical Summary ---
Author Name Unknown Address Unknown Organization K1G:LABORATORY [facility] - [address] [place] [phone] Laboratory Report Ordering Provider Test Date Status WIL L[address] 11/01/2023 17:40:00 Final Observation Date Value Abnormality Reference (Units ) Status Lactic Acid, Whole Blood 11/01/2023 17:40:00 1.8 0.4-2.0 (mmol/L) Final Performing Location LABORATORY [facility] - [address] [place] [phone]
--- OUTSIDE RECORDS SUMMARY | 2023-12-06 21:43 | External Medical Summary ---
Author Name Unknown Address Unknown Organization K1G:LABORATORY [facility] - [address] [place] [phone] Laboratory Report Ordering Provider Test Date Status OPHELIA SCHWARZ 11/02/2023 05:46:00 Final Observation Date Value Abnormality Reference (Units ) Status Magnesium 11/02/2023 05:46:00 2.4 1.5-2.6 (m g/dL) Final Performing Location LABORATORY [facility] - [address] [facility] [phone]
--- OUTSIDE RECORDS SUMMARY | 2023-12-06 21:43 | External Medical Summary ---
Author Name Unknown Address Unknown Organization K1G:LABORATORY [facility] - [address] [place] [phone] Laboratory Report Ordering Provider Test Date Status OPHELIA SCHWARZ 11/02/2023 05:46:00 Final Observation Date Value Abnormality Reference (Units ) Status BUN 11/02/2023 05:46:00 54 Above high normal 6-20 (mg/dL) Final Creatinine 11/02/2023 05:46:00 1.5 Above high normal 0.5-1.0 (mg/dL) Final Glomerular filtration rate/1.73 sq M.predicted [Volume Rate/Area] in Serum, Plasma or Blood by Creatinine-based formula (CKD-EPI) 11/02/2023 05:46:00 35 Below low normal >=60 (mL/min) Final eGFR is calculated based on the CKD-EPI 2020 equation Sodium 11/02/2023 05:46:00 133 Below low normal 135 -146 (mmol/L) Final Potassium 11/02/2023 05:46:00 4.4 3.5-5.1 (m mol/L) Final Cl 11/02/2023 05:46:00 95 Below low normal 98- 107 (mmol/L) Final CO2 11/02/2023 05:46:00 25 22-32 (mmo l/L) Final Anion gap 11/02/2023 05:46:00 13 7-15 (mmol /L) Final Glucose 11/02/2023 05:46:00 85 70-120 (mg /dL) Final Calcium 11/02/2023 05:46:00 10.0 8.4-10.2 ( mg/dL) Final Performing Location LABORATORY [facility] - [address] [facility] [phone]
--- OUTSIDE RECORDS SUMMARY | 2023-12-06 21:43 | External Medical Summary ---
Author Name Unknown Address Unknown Organization K1G:LABORATORY [facility] - [address] [place] [phone] Laboratory Report Ordering Provider Test Date Status WIL LANE 11/01/2023 12:32:05 Final Observation Date Value Abnormality Reference (Units ) Status WBC, Total 11/01/2023 12:32:05 10.87 Above high normal 4 .00-10.80 (K/uL) Final RBC 11/01/2023 12:32:05 3.42 3.85-5.15 (M/uL) Final Hemoglobin 11/01/2023 12:32:05 9.5 Below low normal 12 .0-15.3 (g/dL) Final HCT 11/01/2023 12:32:05 31.2 Below low normal 36. 0-45.2 (%) Final MCV 11/01/2023 12:32:05 91.2 81.5-97.5 (fL) Final MCH 11/01/2023 12:32:05 27.8 27.0-34.0 (pg) Final MCHC 11/01/2023 12:32:05 30.4 32.0-36.0 (g/dL) Final RDW 11/01/2023 12:32:05 16.4 11.5-15.5 (%) Final Platelets 11/01/2023 12:32:05 314 140-400 (K /uL) Final MPV 11/01/2023 12:32:05 9.6 6.6-11.1 ( fL) Final Performing Location LABORATORY [facility] - [address] [place] [phone]
--- OUTSIDE RECORDS SUMMARY | 2023-12-06 21:43 | External Medical Summary ---
Author Name Unknown Address Unknown Organization K1G:LABORATORY [facility] - [address] [place] [id number] Laboratory Report Ordering Provider Test Date Status WIL L[address] 11/01/2023 13:36:38 Final Observation Date Value Abnormality Reference (Units ) Status Troponin T 11/01/2023 13:36:38 64 Above high normal < =14 (ng/L) Final Performing Location LABORATORY [facility] - [address] [place] [phone]
--- OUTSIDE RECORDS SUMMARY | 2023-12-06 21:44 | External Medical Summary ---
Author Name UNSPECIFIED Address Unknown [facility] WELDER History of Encounters Reason for Assessment: Recertification ( follow-up) reassessment Functional Assessment Current Ability: Bathing: Able to bathe in shower or tub with the intermittent assistance of another person: (a) for intermittent supervision or encouragement or reminders, OR (b) to get in and out of the shower or tub, OR (c) for washing difficult to reach areas. Current Ability: Ambulation: Requires us e of a two-handed device (e.g., walker or crutches) to walk alone on a level surface and/or requires human supervision or assistance to negotiate stairs or steps or uneven surfaces.
--- OUTSIDE RECORDS SUMMARY | 2023-12-06 21:44 | External Medical Summary ---
Author Name Unknown Address Unknown Organization K1G:LABORATORY [facility] - [address] [facility] [phone] Laboratory Report Ordering Provider Test Date Status EM PERRY 10/23/2023 12:48:23 Final Observation Date Value Abnormality Reference (Units ) Status SYNC LEUKOCYTES IN BLOOD BY AUTOMATED COUNT 10/23/2023 12:48:23 8.49 4.00-10.80 (K/uL) Final Segs 10/23/2023 12:48:23 74.2 40.0-75.0 (%) Final Lymphs % 10/23/2023 12:48:23 13.3 Below low normal 18.0-42.0 (%) Final Monos 10/23/2023 12:48:23 9.2 1.0-11.0 (%) Final Eosinophils 10/23/2023 12:48:23 2.6 0.0-6.0 (%) Final Basos 10/23/2023 12:48:23 0.7 0.0-2.0 (%) Final Absolute Segs 10/23/2023 12:48:23 6.30 1.80-7.70 (K/uL) Final Lymphs, absolute 10/23/2023 12:48:23 1.13 1.00-4.80 (K/ul) Final Monos, Abs 10/23/2023 12:48:23 0.78 0.00-1.10 (K/uL) Final Eos, Abs 10/23/2023 12:48:23 0.22 0.00-0.70 (K/uL) Final Basos, Abs 10/23/2023 12:48:23 0.06 0.00-0.20 (K/uL) Final Performing Location LABORATORY [facility] - [address] [facility] [id number]
--- OUTSIDE RECORDS SUMMARY | 2023-12-06 21:44 | External Medical Summary | Summary of Care ---
Author Name Unknown Organization [facility] Address [address] [place] [address] Phone [phone] Care Team Providers Care Life Coach Name Role Phone Jeanna Bal PA-C Primary Care Provi aydin Encounter Details Date Type Department Care Team (Late st Contact Info) Description 10/12/2023 Orders Only Pulmonary Function Lab, [facility] [address] [place], [place] [id number] Yocasta Proctor CRNP [address] [place] [address] SOB (shortness of breath)* Allergies Active Allergy Reactions Criticality Noted Date Comments Amoxicillin Hives Medium 03/22/2016 Gatifloxacin Nausea/vomiting Medium 03/22/2016 Latex Rash Medium 03/22/2016 Other reaction(s): johnson documented as of this encounter (statuses as of 10/16/2023) Medications Medication Sig Dispensed Refills Start Date [...] mouth daily at noon. 0 06/08/2015 Active Calcium Carbonate 600 MG Tablet Take 1 Tablet by mouth in the morning and 1 Tablet before bedtime. 0 12/12/2015 Active Cyanocobalamin (VITAMIN B-12) 1000 MCG Tablet [...] taking differently:20 mg OralQ-1999, Reported on 10/03/2023 Ipratropium-Albute rol 0.5-2.5 (3) MG/3ML Inhalation Solution (Duoneb) Inhale 0.5 mg by mouth every 6 hours as needed for Shortness of Breath, Cough or Wheezing. 0 08/07/2023 Active Fluticasone Furoate-Vilanterol 100-25 MCG/ACT Inhalation Aerosol Powder Breath Activated (BREO ellipta) Inhale 1 Puff by mouth in the morning. 60 Each 5 08/08/2023 Active Classics Rolling Walker Use as directed. 1 Each 0 08/25/2023 Active Midodrine HCl 5 MG Oral Tablet (Proamatine) Take 1 Tablet by mouth in the morning and 1 Tablet at noon and 1 Tablet in the evening. 90 Tablet 0 08/25/2023 Active Additional Information Patient taking differently:5 mg OralTID(AM/NOON/HS), Reported on 10/03/2023 Benzonatate 100 MG Oral Capsule Take 2 Capsules by mouth 3 times a day as needed for Cough. 30 Capsule 0 08/25/2023 Active Sennosides-Docusat e Sodium 8.6-50 MG Oral Tablet (Senna-S) Take 1 Tablet by mouth in the morning. 0 Active Dorzolamide HCl-Timolol Mal 2-0.5 % Ophthalmic Solution (Cosopt) Instill 1 Drop into eye in the morning and 1 Drop before bedtime. 0 Active Preparation H 1-0.25-14.4-15 % External Cream (Dujakm-WO-Drirkar n-Petrolatum) Apply 1 Application topically to affected area [...] and 1 Tablet before bedtime. 0 Active Torsemide 10 MG Oral Tablet (Demadex) Take 1 Tablet by mouth daily as needed for Other (may take 1 extra dose daily if needed). 0 Active Torsemide 20 MG Oral Tablet (Demadex) Take 2 Tablets by mouth in the morning and 2 Tablets in the evening. 120 Tablet 0 10/05/2023 11/04/2023 Active Miconazole Nitrate 2 % External Powder (Remedy) Apply topically to affected area 2 times a day. Apply to groin 85 g 0 10/09/2023 Active Doxycycline Hyclate 100 MG Oral Capsule Take 1 Capsule by mouth in the morning and 1 Capsule before bedtime. Do all this for 10 days. 20 Capsule 0 10/09/2023 10/19/2023 Active Potassium Chloride ER 10 MEQ Oral Capsule Extended Release Take 2 Capsules by mouth in the morning and 2 Capsules before bedtime. 0 10/12/2023 Active Hospital, Clinic, or Other Facility Administered Medication Ordered Dose Route Frequency Start Date End Date Status Albuterol Sulfate (Proventil) (2.5 MG/3ML) 0.083% inhalation solution 2.5 mgIndications:SOB (shortness of breath) 2.5 mg NEBULIZER PRN 10/16/2023 10/15/2024 Act toshia documented as of this encounter (statuses as of 10/16/2023) Active Problems Problem Noted Date Diagnosed Date Anemia 10/04/2023 Nonrheumatic aortic valve stenosis 10/04/2023 [...] 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 Coronary artery disease invo lving [place] coronary artery of [place] heart without angina pectoris 03/22/2016 Essential hypertension with goal blood pressure less than 140/90 03/22/2016 Dyslipidemia, goal to be determined 03/22/2016 documented as of this encounter (statuses as of 10/16/2023) Resolved Problems Problem Noted Date Diagnosed Date Resolved Date Acute respiratory failure due to COVID-19 07/30/2023 08/01/2023 Pneumonia due to COVID-19 virus 07/30/2023 08/01/2023 NSTEMI (non-ST elevated myoc ardial infarction) 09/30/2021 10/05/2021 Pain in both lower extremities 03/22/2016 07/30/2023 documented as of this encounter (statuses as of 10/16/2023) Immunizations Name Administration Dates Next Due COVID-19 [...] (15 years old or older) Yes 10/03/19 Cognitive Status Response Date of Assessm ent Because of a physical, menta l, or emotional condition, do you have serious difficulty concentrating, remembering, or making decisions? (5 years old or older) No 10/03/2023 documented as of this encounter Plan of Treatment Upcoming Encounters Date Type Department Care Team (Late st Contact Info) Description 10/16/2023 12:30 PM EDT PulmDiagnostic Pulmonary Function Lab, [address] [address] Gjsh, Pulm Func Tech [address] [place] [address] 10/20/2023 8:00 AM EDT Telemedicine Nephrology, [address] [address] Viktor Nicole MD [address], [place] [id number] 11/07/2023 8:30 AM EDT Telemedicine Pulmonary Medicine, [address] [address] Yocasta Proctor CRNP [address] [place] [address] 11/24/2023 10:30 AM EDT Office Visit Cardiology, [facility] [address] [place] [address] Jennifer Queen PA-C [address] [place] [phone] Health Maintenance Due Date Last Done Comments Pneumococcal Vaccine: 65+ Years (1 of 2 - PCV) 11/29/1941 Depression Screening 1947 Albumin/Creatinine Ratio 11/29/1953 DTaP,Tdap,and Td Vaccines (1 - Tdap) 1954 Zoster Vaccines (2 of 3) 08/23/2012 06/28/2012 COVID-19 Vaccine (5 - 2022- season) 2023 08/05/2022, 05/26/2021, 09/26/2020, Additional history exists Influenza Vaccine (FLU shot) (#1) 2023 DXA Scan 04/03/2027 04/03/2020, 04/03/2020 GARDASIL-HPV IMMUNIZATION [...] Not on filedocumented as of this encounter Visit Diagnoses Diagnosis SOB (shortness of breath)- Primary Shortness of breath documented in this encounter Advance Directives Latest [...] the patient have Health Care Power of [place]raiser [place]? No Code Status History Code Status Date Activated Date Inactivated Comments Full Code 08/29/2023 8:14 PM 09/01/2023 6:46 PM This o rder reflects the patients wishes and were consensually agreed upon. Question Answer Comments Discussion of Advance Directives occurred with: Patient Does the patient have a Living Will? No Does the patient have Health Care Power of [place]? No Full Code 08/19/2023 2:26 PM 08/25/2023 7:30 PM This order reflects the patients wishes and were consensually agreed upon. Question Answer Comments Discussion of Advance Directives occurred with: Patient Does the patient have a Living Will? No Does the patient have Health Care Power of [place]? No Full Code 07/30/2023 11:50 AM 08/02/2023 5:34 PM This order reflects the patients wishes and were consensually agreed upon. Question Answer Comments Discussion of Advance Directives occurred with: Patient Full Code 10/01/2021 4:02 PM 10/05/2021 5:45 PM This or aydin reflects the patients wishes and were consensually agreed upon. Care Teams Life Coach Relationship Specialty Start Date End Date Jeanna Bal PA-C [address] [place] [address] [phone] PCP - General Physician Market President 06/13/17 documented as of this encounter
--- OUTSIDE RECORDS SUMMARY | 2023-12-06 21:44 | External Medical Summary ---
Author Name Unknown Address Unknown Organization K0G:LABORATORY [facility] [address] - [address] [place] [address] Laboratory Report Ordering Provider Test Date Status OPHELIA SCHWARZ 10/12/2023 14:48:12 Final Discharge Order Observation Date Value Abnormality Reference (Units ) Status SYNC LEUKOCYTES IN BLOOD BY AUTOMATED COUNT 10/12/2023 14:48:12 9.59 4.00-10.80 (K/uL) Final Segs 10/12/2023 14:48:12 77.8 Above high normal 40.0-75.0 (%) Final Lymphs % 10/12/2023 14:48:12 10.2 Below low normal 18.0-42.0 (%) Final Monos 10/12/2023 14:48:12 8.2 1.0-11.0 (%) Final Eosinophils 10/12/2023 14:48:12 3.5 0.0-6.0 (%) Final Basos 10/12/2023 14:48:12 0.3 0.0-2.0 (%) Final Absolute Segs 10/12/2023 14:48:12 7.45 1.80-7.70 (K/uL) Final Lymphs, absolute 10/12/2023 14:48:12 0.98 Below low normal 1.00-4.80 (K/ul) Final Monos, Abs 10/12/2023 14:48:12 0.79 0.00-1.10 (K/uL) Final Eos, Abs 10/12/2023 14:48:12 0.34 0.00-0.70 (K/uL) Final Basos, Abs 10/12/2023 14:48:12 0.03 0.00-0.20 (K/uL) Final Performing Location LABORATORY [facility] [address] - [address] [place] [address]
--- OUTSIDE RECORDS SUMMARY | 2023-12-06 21:44 | External Medical Summary ---
Author Name Unknown Address Unknown Organization K1G:LABORATORY [facility] - [address] [place] [id number] Laboratory Report Ordering Provider Test Date Status EM PERRY 10/23/2023 12:48:23 Final Observation Date Value Abnormality Reference (Units ) Status Lactic Acid, Whole Blood 10/23/2023 12:48:23 2.1 Above high normal 0.4-2.0 (mmol/L) Final Performing Location LABORATORY [facility] - [address] [facility] [phone]
--- OUTSIDE RECORDS SUMMARY | 2023-12-06 21:44 | External Medical Summary | Summary of Care ---
Author Name Unknown Organization [facility] Address [address] [place] [address] Phone [phone] Care Team Providers Care Advisory Intern Name Role Phone Jeanna Bal PA-C Primary Care Provi aydin Reason for Visit * Reason Comments Pulmonary Function Test Encounter Details Date Type Department Care Team (Late st Contact Info) Description 10/16/2023 12:30 PM EDT PulmDiagnostic Pulmonary Function Lab, [address] [address] Gj, Pulm Fun Tech [address] [place] [id number] SOB (shortness of breath)* Allergies Active Allergy [...] Active Preparation H 1-0.25-14.4-15 % External Cream (Pziwlq-BM-Egamdlt n-Petrolatum) Apply 1 Application topically to affected [...] 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 Coronary artery disease invo lving [place] coronary artery of [place] heart without angina pectoris 03/22/2016 Essential hypertension [...] No 10/03/2023 documented as of this encounter Nursing Notes * Teresa Duffy, BARRIE - 10/16/2023 1:15 PM EDT Patient identified by name and date of . Pulmonary stress test performed. PFT with spirometry pre and post bronchodilator, FVC, SVC, DLCO and FRC completed Patient on 3 l/m Oxygen when she arrived took patient off O2 for 20 min Room air 98% Patient wanted to sit Ambulated patient 75 feet on room air SPO2 87% Placed patient on 1 l/m and sat her in her wheelchair and rested for 5 min SpO2 still 87% on room air increased to 2 l/m. SPO2 increased to 93% on 2 l/m Rested patient for 20 min Ambulated patient 80 feet on 2 l/m SpO2 90% for 6 min. Patient had one rest period after 40 feet. documented in this encounter Plan of Treatment Upcoming Encounters Date Type Department Care Team (Late st Contact Info) Description 10/20/2023 8:00 AM EDT Telemedicine Nephrology, [place] [address] [place] [address] Viktor Nicole MD [address] [place] [address] 11/07/2023 8:30 AM EDT Telemedicine Pulmonary Medicine, [place] [address] [place], [place] [id number] Yocasta Proctro CRNP [address] [place], [place] [phone] 11/24/2023 10:30 AM EDT Office Visit Cardiology, [facility] [address] [place] [phone] Jennifer Queen PA-C [address] [facility] [place] [address] Pending Results Name Type Priority Associated Diagnoses Date /Time LUNG VOLUMES (GAS DILUTION) Procedures Routine SOB (shortness of breath) 10/16/2023 12:39 PM EDT Health Maintenance Due Date Last Done Comments Pneumococcal Vaccine: 65+ Years (1 of 2 - PCV) 11/29/1941 Depression Screening 1947 Albumin/Creatinine Ratio 11/29/1953 DTaP,Tdap,and Td Vaccines (1 - Tdap) 1954 Zoster Vaccines (2 of 3) 08/23/2012 06/28/2012 COVID-19 Vaccine (5 - 2022-24 season) 2023 08/05/2022, 05/26/2021, 09/26/2020, Additional history [...] Procedure Name Priority Date/Time Associated Diagnosis Comments LUNG VOLUMES (GAS DILUTION) Routine 10/16/2023 12:39 PM EDT SOB (shortness of breath) documented in this encounter Visit Diagnoses Diagnosis SOB (shortness [...] the patient have Health Care Power of Biodiesel Technology Manager? No Code Status History Code Status Date Activated Date Inactivated Comments Full Code 08/29/2023 8:14 PM 09/01/2023 6:46 PM This o rder reflects the patients wishes and were consensually agreed upon. Question Answer Comments Discussion of Advance Directives occurred with: Patient Does the patient have a Living Will? No Does the patient have Health Care Power of Biodiesel Technology Manager? No Full Code 08/19/2023 2:26 PM 08/25/2023 7:30 PM This order reflects the patients wishes and were consensually agreed upon. Question Answer Comments Discussion of Advance Directives occurred with: Patient Does the patient have a Living Will? No Does the patient have Health Care Power of Biodiesel Technology Manager? No Full Code 07/30/2023 11:50 AM 08/02/2023 5:34 PM This order reflects the patients wishes and were consensually agreed upon. Question Answer Comments Discussion of Advance Directives occurred with: Patient Full Code 10/01/2021 4:02 PM 10/05/2021 5:45 PM This or aydin reflects the patients wishes and were consensually agreed upon. Care Teams Advisory Intern Relationship Specialty Start Date End Date Jeanna Bal PA-C [address] [address] [phone] [phone] PCP - General Physician Tour Consultant 06/13/17 documented as of this encounter
--- OUTSIDE RECORDS SUMMARY | 2023-12-06 21:44 | External Medical Summary ---
Author Name Unknown Address Unknown Organization K1G:LABORATORY [facility] - [address] [facility] [address] Laboratory Report Ordering Provider Test Date Status EM PERRY 10/23/2023 12:48:23 Final Observation Date Value Abnormality Reference (Units ) Status BUN 10/23/2023 12:48:23 46 Above high normal 6-20 (mg/dL) Final Creatinine 10/23/2023 12:48:23 1.3 Above high normal 0.5-1.0 (mg/dL) Final Glomerular filtration rate/1.73 sq M.predicted [Volume Rate/Area] in Serum, Plasma or Blood by Creatinine-based formula (CKD-EPI) 10/23/2023 12:48:23 41 Below low normal >=60 (mL/min) Final eGFR is calculated based on the CKD-EPI 2020 equation Sodium 10/23/2023 12:48:23 132 Below low normal 135 -146 (mmol/L) Final Potassium 10/23/2023 12:48:23 4.5 3.5-5.1 (m mol/L) Final Cl 10/23/2023 12:48:23 94 Below low normal 98- 107 (mmol/L) Final CO2 10/23/2023 12:48:23 26 22-32 (mmo l/L) Final Anion gap 10/23/2023 12:48:23 12 7-15 (mmol /L) Final Glucose 10/23/2023 12:48:23 91 70-120 (mg /dL) Final Albumin 10/23/2023 12:48:23 3.4 Below low normal 3.8 -5.0 (g/dL) Final AST (Aspartate aminotransferase) 10/23/2023 12:48:23 38 Above high normal 10-35 (U/L) Final Alk Phos 10/23/2023 12:48:23 104 35-130 (U/ L) Final Bilirubin, Total 10/23/2023 12:48:23 1.4 Above high no rmal <=1.2 (mg/dL) Final Calcium 10/23/2023 12:48:23 10.1 8.4-10.2 ( mg/dL) Final Protein 10/23/2023 12:48:23 7.2 6.0-8.3 (g /dL) Final ALT (Alanine aminotransferase) 10/23/2023 12:48:23 24 10-35 (U/L) Deo mohan Performing Location LABORATORY [facility] - [address] [place] [phone]
--- OUTSIDE RECORDS SUMMARY | 2023-12-06 21:44 | External Medical Summary ---
Author Name Unknown Address Unknown Organization K1G:LABORATORY [facility] - [address] [place] [phone] Laboratory Report Ordering Provider Test Date Status EM PERRY 10/23/2023 12:48:23 Final Observation Date Value Abnormality Reference (Units ) Status Lipase 10/23/2023 12:48:23 27 13-60 (U/L ) Final Performing Location LABORATORY [facility] - [address] [place] [phone]
--- OUTSIDE RECORDS SUMMARY | 2023-12-06 21:44 | External Medical Summary ---
Author Name Unknown Address Unknown Organization K0G:LAB[facility]ATORY [facility] - [address] [place] [address] Laboratory Report Ordering Provider Test Date Status SHE MURO 10/12/2023 14:48:12 Final Observation Date Value Abnormality Reference (Units ) Status BUN 10/12/2023 14:48:12 35 Above high normal 6-20 (mg/dL) Final Creatinine 10/12/2023 14:48:12 1.3 Above high normal 0.5-1.0 (mg/dL) Final Glomerular filtration rate/1.73 sq M.predicted [Volume Rate/Area] in Serum, Plasma or Blood by Creatinine-based formula (CKD-EPI) 10/12/2023 14:48:12 40 Below low normal >=60 (mL/min) Final eGFR is calculated based on the CKD-EPI 2020 equation SODIUM 10/12/2023 14:48:12 131 Below low normal 135 -146 (mmol/L) Final Potassium 10/12/2023 14:48:12 3.7 3.5-5.1 (m mol/L) Final Cl 10/12/2023 14:48:12 93 Below low normal 98- 107 (mmol/L) Final CO2 10/12/2023 14:48:12 29 22-32 (mmo l/L) Final Anion gap 10/12/2023 14:48:12 9 7-15 (mmol /L) Final Glucose 10/12/2023 14:48:12 150 Above high normal 70 -120 (mg/dL) Final Calcium 10/12/2023 14:48:12 9.7 8.4-10.2 ( mg/dL) Final Performing Location LABORATORY [facility] [address] - [address] [place] [address]
--- OUTSIDE RECORDS SUMMARY | 2023-12-06 21:44 | External Medical Summary ---
Author Name Unknown Address Unknown Organization K1G:LABORATORY [facility] - [address] [facility] [phone] Laboratory Report Ordering Provider Test Date Status WIL LANE 11/01/2023 12:32:05 Final Observation Date Value Abnormality Reference (Units ) Status Body temperature 11/01/2023 12:32:05 37.0 (C) Final pH of Venous blood 11/01/2023 12:32:05 7.438 Above high normal 7.320-7.430 (units) Final Carbon dioxide [Partial pressure] in Venous blood 11/01/2023 12:32:05 42.0 40.0-60.0 (mmHg) Final Oxygen [Partial pressure] in Venous blood 11/01/2023 12:32:05 30.9 25.0-50.0 (mmHg) Final Base excess, Capillary 11/01/2023 12:32:05 3.8 Above high normal -2.0-2.0 (mmol/L) Final Hemoglobin [Mass/volume] in Blood by Oximetry 11/01/2023 12:32:05 11.2 Below low normal 12.0-15.3 (g/dL) Final Oxyhemoglobin, Venous (FO2HB) 11/01/2023 12:32:05 45.0 40.0-85.0 (% total Hgb) Final Carboxyhemoglobin 11/01/2023 12:32:05 1.6 Above high normal <=1.5 (% total Hgb) Final Smokers: 0-9.0 % Methemoglobin 11/01/2023 12:32:05 0.7 <=1.5 (% total Hgb) Final Deoxyhemoglobin/Hemoglobin.t otal in Venous blood 11/01/2023 12:32:05 52.7 (% total Hgb) Ambar l Oxygen content in Venous blood 11/01/2023 12:32:05 7.1 7.0-18.0 (%vol) Final Bicarbonate, Venous, POC (i-STAT) 11/01/2023 12:32:05 28.4 23.0-31.0 (mmol/L) [facility] Performing Location LABORATORY [facility] - [address] [facility] [phone]
--- OUTSIDE RECORDS SUMMARY | 2023-12-06 21:44 | External Medical Summary | Summary of Care ---
Author Name Unknown Organization [facility] Address [address] [place] [address] Phone [phone] Care Team Providers Care Blood Tester Name Role Phone Jeanna Bal PA-C Primary Care Provi aydin Reason for Visit * Reason Comments Constipation * Auth/Cert Specialty Diagnoses / Procedures Referred By Kasey nagy Referred To Contact [facility] [address] [place] [address] Phone: [phone] Emergency Medicine [facility] [address] [place] [address] Referral ID Status Reason Start Date Expiration Date Visits Re quested Visits Authorized [id number] Encounter Details Date Type Department Care Team (Late st Contact Info) Description 10/25/2023 5:23 PM EDT - 10/25/2023 6:35 PM EDT Emergency [facility] Emergency Department ([facility]) [address] [place] [address] Henry Garcia MD [address] [place] [address] Constipation, unspecified constipation type (Primary Dx) Discharge Disposition: Home - Self Care Allergies Active Allergy Reactions Criticality Noted Date Comments Amoxicillin Hives Medium 03/22/2016 Gatifloxacin Nausea/vomiting Medium 03/22/2016 Latex Rash Medium 03/22/2016 Other reaction(s): johnson documented as of this encounter (statuses as of 10/26/2023) Medications Medication Sig Dispensed Refills Start Date [...] Active Additional Information Patient taking differently:20 mg [id number]-[id number], Reported on 10/03/2023 Ipratropium-Albute rol 0.5-2.5 (3) [...] Active Preparation H 1-0.25-14.4-15 % External Cream (Stmpld-NB-Abkkcul n-Petrolatum) Apply 1 Application topically to affected [...] as of this encounter (statuses as of 10/26/2023) Active Problems Problem Noted Date Diagnosed Date [...] 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 Coronary artery disease invo lving [place] coronary artery of [place] heart without angina pectoris 03/22/2016 Essential hypertension with goal blood pressure less than 140/90 03/22/2016 Dyslipidemia, goal to be determined 03/22/2016 documented as of this encounter (statuses as of 10/26/2023) Resolved Problems Problem Noted Date Diagnosed Date Resolved Date Acute respiratory failure due to COVID-19 07/30/2023 08/01/2023 Pneumonia due to COVID-19 virus 07/30/2023 08/01/2023 NSTEMI (non-ST elevated myoc ardial infarction) 09/30/2021 10/05/2021 Pain in both lower extremities 03/22/2016 07/30/2023 documented as of this encounter (statuses as of 10/26/2023) Immunizations Name Administration Dates Next Due COVID-19 [...] Sign Reading Time Taken Comments Blood Pressure 124/79 10/25/2023 5:21 PM EDT Pulse 78 10/25/2023 5:21 PM EDT Temperature 36.8 C (98.2 F) 10/25/2023 5:21 PM ED T Respiratory Rate 16 10/25/2023 5:21 PM EDT Oxygen Saturation 97% 10/25/2023 5:21 PM EDT Inhaled Oxygen Concentration - - Weight - - Height - - Body Mass Index - - documented in this encounter Functional Status Functional [...] 10/03/2023 documented as of this encounter Discharge Instructions * Discharge Instructions* Pietro John PA-C - 10/25/2023 6:16 PM EDT You have been seen and evaluated in the Emergency Department of [facility]. Please readthe discharge instructions below regarding your care. Summary Of Today's Visit: You were seen today for constipation. New Prescriptions/Medication Changes: CONSTIPATION, our recommended treatment plan for you: Miralax, (Polyethylene Glycol 3350). Please follow the directions on the bottle. The usual adult dose for constipation is: 17 g (diluted in 8 fluid ounces water, juice, soda or coffee) orally once a day. For the next 2 days please take 17g of MiraLax 2 times per day or until your stools are a mashed potato like consistency. If you develop runny stools and you may decrease the amount MiraLax daily. For recurrent constipation you can utilize the following below: 2.) Purchase 2 Fleets enemas. Follow the directions carefully on the packaging. Take 1 of the enemas shortly after you take your first dose of Milk of Magnesia. After 12 hours you are to take the 2ndenema. 3.) Use glycerine suppositories according the packaging instructions when you begin to feel like you need to have a bowel movement. If at anytime you begin to experience pain or any worrisome concerns stop what you are doing and seek immediate medical evaluation. It is important that you understand these instructions. If you have any questions please do not leave this ED! Ask for clarifications so you understand what we have recommended to you. Follow Up/Continuation Of Care: Follow up with your family doctor as needed. Other Important Information/Return Instructions: Return to the Emergency Department or seek medical attention if you notice or have worsening of anyof the following problems: severe headache , changes in your vision, feel like you may pass out, chest pain, chest pressure, chest tightness, difficulty breathing, vomiting, abdominal pain, or any worsening of your condition. Thank you for allowing us to care for you. Our goal is to provide you the best care. If you have any emergency needs in the future we will be glad to help you again. We are here to serve you! documented in this encounter ED Notes * Kanwal Bass RN - 10/25/2023 5:26 PM EDT Pt states that she was at this ER recently for rectal bleeding, hasn't had a BM since Monday. Pt states that she feels impacted, states it's "right there" but cannot push it out. documented in this encounter Plan of Treatment Upcoming Encounters Date Type Department Care Team (Late st Contact Info) Description 10/31/2023 1:00 PM EDT Office Visit Gastroenterology, [facility] [address] [place] [address] Trenton Cameron CRNP [address] [place] [address] 11/07/2023 8:30 AM EDT [facility] [address] [place], [place] [phone] Yocasta Proctor CRNP [address] [place], [place] [id number] 11/24/2023 10:30 AM EDT Office Visit Cardiology, [facility] [address] [place] [address] Jennifer Queen PA-C [address] [place] [address] Health Maintenance Due Date Last Done Comments [...] as of this encounter Visit Diagnoses Diagnosis Constipation, unspecified constipation type- Primary documented in this encounter Administered Medications Inactive Administered Medications - up to 3 most recent administrations Medication Order MAR Action Action Date Dose Rate Site FLEET ADULT enema 1 Enema 1 Enema, Rectal, ONCE, On Mon10/25/23 at 1815, For 1 dose Given 10/25/2023 5:50 PM EDT 1 Enema soap solution enema 1 Enema 1 Enema, Rectal, ONCE, On Mon10/25/23 at 1830, For 1 dose Given 10/25/2023 6:05 PM EDT 1 Enema documented in this encounter Active and Recently Administered Medications Times are shown in EDT. Scheduled Medication Order 10/23/2023 10/24/2023 10/25/2023 FLEET ADULT enema 1 Enema (COMPLETED) 1 Enema, Rectal, ONCE, On Mon10/25/23 at 1815, For 1 dose 1750 (Given - Provid er: Tania Vidales RN) soap solution enema 1 Enema (COMPLETED) 1 Enema, Rectal, ONCE, On Mon10/25/23 at 1830, For 1 dose 1805 (Given - Provid er: Tania Vidales RN) documented in this encounter Advance Directives [...] the patient have Health Care Power of Product Safety Administrator? No Code Status History Code Status Date Activated Date Inactivated Comments Full Code 08/29/2023 8:14 PM 09/01/2023 6:46 PM This o rder reflects the patients wishes and were consensually agreed upon. Question Answer Comments Discussion of Advance Directives occurred with: Patient Does the patient have a Living Will? No Does the patient have Health Care Power of Product Safety Administrator? No Full Code 08/19/2023 2:26 PM 08/25/2023 7:30 PM This order reflects the patients wishes and were consensually agreed upon. Question Answer Comments Discussion of Advance Directives occurred with: Patient Does the patient have a Living Will? No Does the patient have Health Care Power of Product Safety Administrator? No Full Code 07/30/2023 11:50 AM 08/02/2023 5:34 PM This order reflects the patients wishes and were consensually agreed upon. Question Answer Comments Discussion of Advance Directives occurred with: Patient Full Code 10/01/2021 4:02 PM 10/05/2021 5:45 PM This or aydin reflects the patients wishes and were consensually agreed upon. Care Teams Blood Tester Relationship Specialty Start Date End Date Jeanna Bal PA-C [address] [place] [address] [place] [phone] PCP - General Physician Stevedore Dock 06/13/17 documented as of this encounter
--- OUTSIDE RECORDS SUMMARY | 2023-12-06 21:44 | External Medical Summary ---
Author Name Unknown Address Unknown Organization K1G:LABORATORY [facility] - [address] [place] [id number] Laboratory Report Ordering Provider Test Date Status EM PERRY 10/23/2023 12:48:23 Final Observation Date Value Abnormality Reference (Units ) Status WBC, Total 10/23/2023 12:48:23 8.49 4.00-10.8 0 (K/uL) Final RBC 10/23/2023 12:48:23 3.62 3.85-5.15 (M/uL) Final Hemoglobin 10/23/2023 12:48:23 10.4 Below low normal 12 .0-15.3 (g/dL) Final HCT 10/23/2023 12:48:23 33.2 Below low normal 36. 0-45.2 (%) Final MCV 10/23/2023 12:48:23 91.7 81.5-97.5 (fL) Final MCH 10/23/2023 12:48:23 28.7 27.0-34.0 (pg) Final MCHC 10/23/2023 12:48:23 31.3 32.0-36.0 (g/dL) Final RDW 10/23/2023 12:48:23 16.4 11.5-15.5 (%) Final Platelets 10/23/2023 12:48:23 316 140-400 (K /uL) Final MPV 10/23/2023 12:48:23 8.9 6.6-11.1 ( fL) Final Performing Location [facility]ATORY [facility] - [address] [place] [id number]
--- OUTSIDE RECORDS SUMMARY | 2023-12-06 21:44 | External Medical Summary | Summary of Care ---
Author Name Unknown Organization [facility] Address [address] [facility] [address] Phone [phone] Care Team Providers Care Block Feeder Name Role Phone Jeanna Bal PA-C Primary Care Provi aydin Reason for Visit * Reason Comments Outpatient Testing Encounter Details Date Type Department Care Team (Late st Contact Info) Description 10/12/2023 3:20 PM EDT Laboratory Laboratory, [facility] [address] [place] [id number] [facility] [address] [place] [address] Acute decompensated heart failure (HCC); Heart failure (HCC); SOB (shortness of breath); Chronic heart failure with preserved ejection fraction (HCC); Persistent atrial fibrillation (HCC) Allergies Active Allergy Reactions Criticality Noted Date Comments Amoxicillin Hives Medium 03/22/2016 Gatifloxacin Nausea/vomiting Medium 03/22/2016 Latex Rash Medium 03/22/2016 Other reaction(s): johnson documented as of this encounter (statuses as of 10/12/2023) Medications Medication Sig Dispensed Refills Start Date [...] and 1 Capsule before bedtime. 0 11/07/2022 Active Ipratropium-Albute rol 0.5-2.5 (3) MG/3ML Inhalation Solution [...] Active Preparation H 1-0.25-14.4-15 % External Cream (Mbbqsx-QY-Nwfjdto n-Petrolatum) Apply 1 Application topically to affected [...] days. 20 Capsule 0 10/09/2023 10/19/2023 Active documented as of this encounter (statuses as of 10/12/2023) Active Problems Problem Noted Date Diagnosed Date [...] 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 Coronary artery disease invo lving [place] coronary artery of [place] heart without angina pectoris 03/22/2016 Essential hypertension with goal blood pressure less than 140/90 03/22/2016 Dyslipidemia, goal to be determined 03/22/2016 documented as of this encounter (statuses as of 10/12/2023) Resolved Problems Problem Noted Date Diagnosed Date Resolved Date Acute respiratory failure due to COVID-19 07/30/2023 08/01/2023 Pneumonia due to COVID-19 virus 07/30/2023 08/01/2023 NSTEMI (non-ST elevated myoc ardial infarction) 09/30/2021 10/05/2021 Pain in both lower extremities 03/22/2016 07/30/2023 documented as of this encounter (statuses as of 10/12/2023) Immunizations Name Administration Dates Next Due COVID-19 [...] Team (Late st Contact Info) Description 10/12/2023 3:30 PM EDT [facility], [facility] [place] [address] Jennifer Queen PA-C [address] [place] [address] Arrived 10/16/2023 12:30 PM EDT PulmDiagnostic Pulmonary Function Lab, [facility] [address] [place] [address] Gjsh, Pulm Func Tech [address] [place] [address] 10/20/2023 8:00 AM EDT Telemedicine Nephrology, [facility] [address] [place], [place] [phone] Viktor Nicole MD [address] [place], [place] [phone] 11/07/2023 8:30 AM EDT Telemedicine Pulmonary Medicine, [facility] [address] [place], [place] [phone] Yocasta Proctor CRNP [address] [place], [place] [phone] Pending Results Name Type Priority Associated Diagnoses Date /Time CBC WITH WBC DIFFERENTIAL Lab Routine SOB (shortness of breath) 10/12/2023 2:48 PM EDT BASIC METABOLIC PANEL Lab STAT Chronic heart failure with preserved ejection fraction (HCC) Persistent atrial fibrillation (HCC) 10/12/2023 2:48 PM EDT CBC Lab Routine SOB (shortness of breath) 10/12/2023 2:48 PM EDT DIFFERENTIAL, AUTOMATED Lab Routine SOB (shortness of breath) 10/12/2023 2:48 PM EDT Health Maintenance Due Date Last [...] as of this encounter Visit Diagnoses Diagnosis Acute decompensated heart failure (HCC) Heart failure (HCC) Heart failure, unspecified SOB (shortness of breath) Shortness of breath Chronic heart failure with preserved ejection fraction (HCC) Persistent atrial fibrillation (HCC) Atrial fibrillation documented in this encounter Advance Directives Latest [...] the patient have Health Care Power of Mercury Washer? No Code Status History Code Status Date Activated Date Inactivated Comments Full Code 08/29/2023 8:14 PM 09/01/2023 6:46 PM This o rder reflects the patients wishes and were consensually agreed upon. Question Answer Comments Discussion of Advance Directives occurred with: Patient Does the patient have a Living Will? No Does the patient have Health Care Power of Mercury Washer? No Full Code 08/19/2023 2:26 PM 08/25/2023 7:30 PM This order reflects the patients wishes and were consensually agreed upon. Question Answer Comments Discussion of Advance Directives occurred with: Patient Does the patient have a Living Will? No Does the patient have Health Care Power of Mercury Washer? No Full Code 07/30/2023 11:50 AM 08/02/2023 5:34 PM This order reflects the patients wishes and were consensually agreed upon. Question Answer Comments Discussion of Advance Directives occurred with: Patient Full Code 10/01/2021 4:02 PM 10/05/2021 5:45 PM This or aydin reflects the patients wishes and were consensually agreed upon. Care Teams Block Feeder Relationship Specialty Start Date End Date Jeanna Bal PA-C [address] [place] [address] [place] [phone] PCP - General Physician Last Model Department Supervisor 06/13/17 documented as of this encounter
--- OUTSIDE RECORDS SUMMARY | 2023-12-06 21:44 | External Medical Summary ---
Author Name Unknown Address Unknown Organization K01:LABORATORY [facility] - [address] [place] [address] Laboratory Report Ordering Provider Test Date Status EM PERRY 10/23/2023 12:48:23 Final Observation Date Value Abnormality Reference (Units ) Status ABO 10/23/2023 12:48:23 A Final RH 10/23/2023 12:48:23 Positive Final Performing Location LABORATORY [facility] - [address] [place] [address]
--- OUTSIDE RECORDS SUMMARY | 2023-12-06 21:44 | External Medical Summary ---
Author Name Unknown Address Unknown Organization K1G:LABORATORY [facility] - [address] [facility] [id number] Laboratory Report Ordering Provider Test Date Status EM PERRY 10/23/2023 12:48:23 Final Warfarin Therapy
INR: 2 .0-3.0 conventional anticoagulation
INR: 2.5- 3.5 high intensity anticoagulation Observation Date Value Abnormality Reference (Units ) Status PT 10/23/2023 12:48:23 18.5 Above high normal 11 .6-15.2 (seconds) Final INR 10/23/2023 12:48:23 1.5 Above high normal 0. 8-1.2 Final Performing Location LABORATORY [facility] - [address] [facility] [id number]
--- OUTSIDE RECORDS SUMMARY | 2023-12-06 21:44 | External Medical Summary | Summary of Care ---
Author Name Unknown Organization [facility] Address [address] [facility] [place] [address] Phone [phone] Care Team Providers Care Computer Engineering Professor Name Role Phone Jeanna Bal PA-C Primary Care Provi aydin Reason for Visit * Reason Onset Date Comments Appointment 10/26/2023 Encounter Details Date Type Department Care Team (Late st Contact Info) Description 10/26/2023 [facility] [place] [address] Jef Kaminski MD [address] [place] [address] Appointment Allergies Active Allergy Reactions Criticality Noted [...] Active Preparation H 1-0.25-14.4-15 % External Cream (Qjwrjt-TS-Lpphsnz n-Petrolatum) Apply 1 Application topically to affected [...] 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 Coronary artery disease invo lving [place] coronary artery of [place] heart without angina pectoris 03/22/2016 [...] No 10/03/2023 documented as of this encounter Miscellaneous Notes * Telephone Encounter - Mandi Velásquez OSA - 10/26/2023 10:25 AM EDT 10/26/23 Called patient, left message. Trying to get patient scheduled with Nephrology for appointment. Patient is on the recall list. Needed to be seen in person with Dr. Kaminski in December. Please offer first available with dr. Kaminski. Mirego message being sent out as well. documented in this encounter Plan of Treatment Upcoming Encounters Date Type Department Care Team (Late st Contact Info) Description 10/31/2023 1:00 PM EDT Office Visit Gastroenterology, [facility] [address] [place] [address] Trenton Cameron CRNP [address] [place] [address] 11/07/2023 8:30 AM EDT Telemedicine Pulmonary Medicine, [address] [place] [address] Yocasta Proctor CRNP [address] [place] [address] 11/24/2023 10:30 AM EDT Office Visit Cardiology, [facility] [address] [place] [address] Jennifer Queen PA-C [address] [place] [address] Health Maintenance Due Date Last Done Comments [...] Not on filedocumented as of this encounter Advance Directives Latest [...] the patient have Health Care Power of Safety Officer? No Code Status History Code Status Date Activated Date Inactivated Comments Full Code 08/29/2023 8:14 PM 09/01/2023 6:46 PM This o rder reflects the patients wishes and were consensually agreed upon. Question Answer Comments Discussion of Advance Directives occurred with: Patient Does the patient have a Living Will? No Does the patient have Health Care Power of Safety Officer? No Full Code 08/19/2023 2:26 PM 08/25/2023 7:30 PM This order reflects the patients wishes and were consensually agreed upon. Question Answer Comments Discussion of Advance Directives occurred with: Patient Does the patient have a Living Will? No Does the patient have Health Care Power of Safety Officer? No Full Code 07/30/2023 11:50 AM 08/02/2023 5:34 PM This order reflects the patients wishes and were consensually agreed upon. Question Answer Comments Discussion of Advance Directives occurred with: Patient Full Code 10/01/2021 4:02 PM 10/05/2021 5:45 PM This or aydin reflects the patients wishes and were consensually agreed upon. Care Teams Computer Engineering Professor Relationship Specialty Start Date End Date Jeanna Bal PA-C [address] [place] [address] [place] [phone] PCP - General Physician Blower Operator 06/13/17 documented as of this encounter
--- OUTSIDE RECORDS SUMMARY | 2023-12-06 21:44 | External Medical Summary | Summary of Care ---
Author Name Unknown Organization [facility] Address [address] [facility] [address] Phone [phone] Care Team Providers Care Disk Operator Name Role Phone Jeanna Bal PA-C Primary Care Provi aydin Reason for Visit * Reason Comments Follow Up Encounter Details Date Type Department Care Team (Latest Contact Info) Description 10/12/2023 3:30 PM EDT Office Visit Cardiology, [facility] [address] [place] [id number] Jennifer Queen PA-C [address] [place] [place] [phone] Chronic heart failure with preserved ejection fraction (HCC)*; Hypertrophic cardiomyopathy (HCC); Persistent atrial fibrillation (HCC); Chronic hyponatremia; Nonrheumatic aortic valve stenosis; Pulmonary HTN (HCC); Interstitial lung disease (HCC) Allergies Active Allergy Reactions Criticality Noted Date Comments Amoxicillin Hives Medium 03/22/2016 Gatifloxacin Nausea/vomiting Medium 03/22/2016 Latex Rash Medium 03/22/2016 Other reaction(s): johnson documented as of this encounter (statuses as of 10/18/2023) Medications Medication Sig Dispensed Refills Start Date [...] Active Preparation H 1-0.25-14.4-15 % External Cream (Nklisn-LL-Pgqgr rin-Petrolatum) Apply 1 Application topically to affected [...] the evening. 120 Tablet 0 10/05/2023 4 Active Miconazole Nitrate 2 % External Powder (Remedy) Apply topically to affected area 2 times a day. Apply to groin 85 g 0 10/09/2023 Active Doxycycline Hyclate 100 MG Oral Capsule Take 1 Capsule by mouth in the morning and 1 Capsule before bedtime. Do all this for 10 days. 20 Capsule 0 10/09/2023 4 Active Potassium Chloride ER 10 MEQ Oral Capsule Extended Release Take 2 Capsules by mouth in the morning and 2 Capsules before bedtime. 0 10/12/2023 Active Potassium Chloride ER 10 MEQ Oral Capsule Extended Release Take 1 Capsule by mouth in the morning and 1 Capsule before bedtime. 0 11/07/2022 4 Discontinued documented as of this encounter (statuses as of 10/18/2023) Active Problems Problem Noted Date Diagnosed Date [...] 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 Coronary artery disease invo lving chemehuevi coronary artery of chemehuevi heart without angina pectoris 03/22/2016 Essential hypertension with goal blood pressure less than 140/90 03/22/2016 Dyslipidemia, goal to be determined 03/22/2016 documented as of this encounter (statuses as of 10/18/2023) Resolved Problems Problem Noted Date Diagnosed Date Resolved Date Acute respiratory failure due to COVID-19 07/30/2023 08/01/2023 Pneumonia due to COVID-19 virus 07/30/2023 08/01/2023 NSTEMI (non-ST elevated myoc ardial infarction) 09/30/2021 10/05/2021 Pain in both lower extremities 03/22/2016 07/30/2023 documented as of this encounter (statuses as of 10/18/2023) Immunizations Name Administration Dates Next Due COVID-19 [...] Sign Reading Time Taken Comments Blood Pressure 98/60 10/12/2023 3:30 PM EDT Pulse 60 10/12/2023 3:30 PM EDT Temperature - - Respiratory Rate 20 10/12/2023 3:30 PM EDT Oxygen Saturation 98% 10/12/2023 3:30 PM EDT at rest on 3L O2 Inhaled Oxygen Concentration - - Weight 86.2 kg (190 lb) 10/12/2023 3:30 PM EDT Height - - Body Mass Index 35.92 10/03/2023 8:32 PM EST documented in this encounter Functional Status Functional [...] No 10/03/2023 documented as of this encounter Progress Notes * Jennifer Queen PA-C - 10/12/2023 3:27 PM EDT Cardiology F/U: SUBJECTIVE: Patient is a 87 year old female here today for close cardiology f/u with her family. Last clinic evaluation approx 1 month ago with the undersigned. History includes: Chronic HFpEF with Moderate mitral stenosis and moderate aortic stenosis hypertrophic cardiomyopathy involving the septum and posterior wall with associated inducible LV outflow tract gradient Normal coronary arteries per cath in September 2021 Hypertension Interstitial lung disease with pulm fibrosis and recurrent pneumonia. Chronic afib, rates controlled. Chronic anticoagulation Over the last few months patient has been admitted to [facility] for pneumonia and CHF. Diuretics were titrated with improved volume status. Patient has lost approx 15- 20 lbs of fluid total. Last week she presented to ER with worsening SOB. Possible recurrent pneumonia? Started on antibiotics, which she is still taking. Today she presents feeling ok. Notes SOB with minimal activity. Weight is down 6 lbs since last visit. No edema. Wearing compression stocks. Still has hypoxia intermittently. Wearing O2. No chest pain. Review of Systems: See HPI for pertinent positives. All others negative, other than those noted in HPI. Cardiac studies/labs: Echo report reviewed dated Jul 2023: Interpretation Summary The examination is adequate to evaluate the referral indication. No LV segmental wall motion abnormalities. The left ventricular systolic function is normal. The qualitative LV ejection fraction is 60-64% (normal). There is dynamic left ventricular outflow tract obstruction at rest. The resting peak instantaneous left ventricular outflow tract gradient is 51 mm Hg. There is diffuse right ventricular hypokinesis. The right ventricular cavity size is enlarged (basal dimension > 4.2 cm RV apical 4 chamber view). Severe tricuspid regurgitation is present. The aortic valve is moderately calcified. Image and Doppler assessment of aortic stenosis severity is discordant: Moderate aortic stenosis issuspected. Mild to moderate aortic valve regurgitation is present. Image and Doppler assessment of mitral stenosis severity is discordant: Severe mitral stenosis is suspected. Mitral regurgitation is detected but not quantitated. The proximal ascending thoracic aorta is mildly enlarged. EKG performed November 2022 Sinus bradycardia at 55 beats per minute Left anterior fascicular block Possible old lateral infarct Compared with prior EKG in September 2021, T-wave inversion no longer evident in lateral leads and septal infarct is no longer present. Cardiac catheterization October 04, 2021: The coronary arteries are angiographically normal. 2D echocardiogram report September 30, 2021: The left ventricular endocardium is inadequately assessed in spite of the use of intravenous contrast. The qualitative LV ejection fraction is >70% (hyperdynamic). The LV wall thickness is severely increased (concentric). The left ventricular wall motion is normal by limited analysis. All left ventricular segments are not visualized. Image and Doppler assessment of aortic stenosis severity is discordant: Moderate aortic stenosis issuspected. Moderate mitral stenosis is present. The proximal ascending thoracic aorta is moderately enlarged. Mild pulmonary hypertension is present. The estimated pulmonary artery systolic pressure is 46 mm Hg. Cardiovascular genetic testing results summary: No significant genetic changes were identified that explain her personal history of HCM and family history of cardiovascular disease. It is unlikely that Ms. Recinos has a single gene change that explains her personal history. CT of the chest report summary 06/2018: Mid ascending aortic aneurysm measures 45 x 45 mm (was 44 mm diameter by report prior exam 2016) Right upper lobe pleural-based 6 x 4 mm nodule. By report, this is unchanged by description. Mild pulmonary fibrosis. Small hiatal hernia. 24 hr Holter report July 11, 2018: 1. Duration - 24 hr 2. Quality - good 3. Dominant rhythm - sinus rhythm, average rate 60 beats per minute 4. PAC's - rare, 61 with 1 couplet . Two runs of supraventricular tachycardia were observed of 13 beats and 7 beats in duration 5. PVCs - very rare, 2 with 1 couplet 6. Symptoms - none reported 7. No pauses, bradycardia or ventricular arrhythmias were observed 2D echocardiogram report summary June 01, 2021: Compared to last available study changes are noted as follows: mitral stenosis is now severe. Normal LV chamber size with moderate concentric LVH. Normal LV systolic function without regional wall motion abnormalities. Calculated LV ejection Fraction = 69% (bi-plane method of discs). There is isolated basal septal hypertrophy with maximal thickness of 1.9 cm. Grade 2 diastolic dysfunction. The aortic valve has three leaflets. The aortic valve is mildly calcified. Mild aortic valve stenosis is present. There is no significant aortic regurgitation. Severe mitral valve stenosis is present with mean gradient 10.5 millimeters Hg. Severe left atrial enlargement. Pulmonary hypertension is present. The estimated pulmonary artery systolic pressure is 51 mm Hg. 2D echocardiogram report summary May 27, 2020: The LV wall thickness is severely increased (concentric). The left ventricular wall motion is normal. Calculated LV ejection Fraction = 69% (bi-plane method of discs). The aortic valve is mildly calcified. The Doppler assessment of aortic valve stenosis is technically limited due to inability to align the Doppler signal parallel to left ventricular outflow tract flow, however mild aortic valve stenosis appears to be present based on 2D appearance. Moderate to severe mitral valve stenosis is present with mean gradient 8.4 millimeters Hg. Mild tricuspid regurgitation is present. Mild pulmonary hypertension is present. The estimated pulmonary artery systolic pressure is 39 mm Hg. The Doppler evaluation of LV outflow tract obstruction is technically limited, however an induciblegradient of around 20 mm Hg appears to be present. 2D echocardiogram report August 08, 2018: The LV wall thickness is severely increased (concentric). There is no dynamic left ventricular outflow tract obstruction a rest. The inducible peak instantaneous left ventricular outflow tract gradient is 32 mm Hg. The left atrium is severely enlarged (>48 ml/m^2,). There is aortic valve sclerosis without stenosis. There is severe mitral annular calcification. The mitral valve leaflets are mildly calcified. Moderate mitral stenosis is present. Mild mitral regurgitation is present. Mild tricuspid regurgitation is present. The estimated pulmonary artery systolic pressure is 45 mm Hg. The proximal ascending thoracic aorta is mildly enlarged. Compared to last available study changes are noted as follows: Mild inducible LVOT systolic gradient now present. 2D echocardiogram report 05/2017: The qualitative LV ejection fraction is 65-69% (normal). There is asymmetric left ventricular hypertrophy. The asymmetric hypertrophy involves the septum. The asymmetric hypertrophy also involves the posterior wall. There is no dynamic left ventricular outflow tract obstruction. The left atrium is severely enlarged (>48 ml/m^2,). There is severe mitral annular calcification. The mitral valve leaflets are mildly calcified. Moderate mitral stenosis is present. Mild mitral regurgitation is present. Mild tricuspid regurgitation is present. There is no evidence of pulmonary hypertension. The proximal ascending thoracic aorta is mildly enlarged. Compared to last available study changes are noted as follows: No significant LVOT obstruction. Lexiscan nuclear stress test report May 25, 2016: Lexiscan nuclear cardiac stress test negative for ischemia. Gated SPECT images reveals normal myocardial thickening and wall motion. The LV ejection fraction is calculated at >70%. 2D echo report 04/07/2016: The LV wall thickness is severely increased (concentric). Small left ventricle. Qualitative LV ejection Fraction = 65%. There is an inducible gradient through the left ventricular chamber of 97 mmHg. There is severe mitral annular calcification. The mitral valve leaflets are moderately calcified. Moderate mitral stenosis is present. Ankle-brachial index 03/2016: MIREYA at rest is 1.0 on the right and .97 on the left. Waveform analysis and MIREYA data are normal at rest for the bilateral lower extremity with no evidence of significant peripheral arterial occlusive disease. Patient Active Problem List Diagnosis Code Ascending aortic aneurysm ([facility]) I71.21 Coronary artery disease involving chemehuevi coronary artery of chemehuevi heart without angina pectoris I25.10 Essential hypertension with goal blood pressure less than 140/90 I10 Dyslipidemia, goal to be determined E78.5 Hypertrophic cardiomyopathy ([facility]) I42.2 Nonrheumatic mitral valve stenosis I34.2 Graves disease E05.00 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 ([facility]) I50.43, I38 Acute on chronic respiratory failure with hypoxia ([facility]) J96.21 CAP (community acquired pneumonia) J18.9 Influenza A J10.1 Pulmonary HTN ([facility]) I27.20 Elevated troponin R79.89 Acute hyponatremia E87.1 Generalized weakness R53.1 Thrombocytopenia ([facility]) D69.6 New onset atrial fibrillation ([facility]) I48.91 Petechial rash R23.3 Oral thrush B37.0 Positive D dimer R79.89 Chronic heart failure with preserved ejection fraction ([facility]) I50.32 Atrial fibrillation ([facility]) I48.91 Chronic hyponatremia E87.1 Acute on chronic heart failure ([facility]) I50.9 CARLOTA (acute kidney injury) ([facility]) N17.9 Prolonged QT interval R94.31 Acute combined systolic and diastolic CHF, NYHA class 1 ([facility]) I50.41 Generalized weakness R53.1 Anemia D64.9 Nonrheumatic aortic valve stenosis I35.0 Social History Tobacco Use Smoking status: Never Passive exposure: Past Smokeless tobacco: Never Tobacco comments: Parents smoked in home growing up and then work place up until 1967 Vaping Use Vaping Use: Never used Substance Use Topics Alcohol use: Not Currently Drug use: Never Review of patient's allergies indicates: Allergen Reactions Amoxicillin Hives Gatifloxacin Nausea/vomiting Latex Rash Other reaction(s): johnson Current Outpatient Medications Medication Sig Dispense Refill Aspirin 81 MG TBEC Take 1 Tablet by mouth in the morning. cholecalciferol, VIT D3, (VITAMIN D3) 1000 UNITS Tablet Take 1 Tablet by mouth daily at noon. vitamin c (ASCORBIC ACID) 500 MG Tablet Take 1 Tablet by mouth daily at noon. Vitamin E 400 UNITS Tablet Take 1 Tablet by mouth daily at noon. Calcium Carbonate 600 MG Tablet Take 1 Tablet by mouth in the morning and 1 Tablet before bedtime. Cyanocobalamin (VITAMIN B-12) 1000 MCG Tablet Take 1 Tablet by mouth in the morning. methIMAzole 5 MG Oral Tablet (TAPAZOLE) Take 0.5 Tablets by mouth. Take 1/2 tablet 6 days per week (does not take on Monday) Atorvastatin Calcium 20 MG Oral Tablet (Lipitor) Take 1 Tablet by mouth daily. (Patient taking differently: Take 1 Tablet by mouth every evening.) 90 Tablet 6 Potassium Chloride ER 10 MEQ Oral Capsule Extended Release Take 1 Capsule by mouth in the morning and 1 Capsule before bedtime. Ipratropium-Albuterol 0.5-2.5 (3) MG/3ML Inhalation Solution (Duoneb) Inhale 0.5 mg by mouth every 6 hours as needed for Shortness of Breath, Cough or Wheezing. Fluticasone Furoate-Vilanterol 100-25 MCG/ACT Inhalation Aerosol Powder Breath Activated (BREO ellipta) Inhale 1 Puff by mouth in the morning. 60 Each 5 Classics Rolling Walker Use as directed. 1 Each 0 Midodrine HCl 5 MG Oral Tablet (Proamatine) Take 1 Tablet by mouth in the morning and 1 Tablet at noon and 1 Tablet in the evening. (Patient taking differently: Take 1 Tablet by mouth in the morning and 1 Tablet at noon and 1 Tablet before bedtime.) 90 Tablet 0 Benzonatate 100 MG Oral Capsule Take 2 Capsules by mouth 3 times a day as needed for Cough. 30 Capsule 0 Sennosides-Docusate Sodium 8.6-50 MG Oral Tablet (Senna-S) Take 1 Tablet by mouth in the morning. Dorzolamide HCl-Timolol Mal 2-0.5 % Ophthalmic Solution (Cosopt) Instill 1 Drop into eye in the morning and 1 Drop before bedtime. Preparation H 1-0.25-14.4-15 % External Cream (Mkdcqx-FF-Nbxqjbaz-Petrolatum) Apply 1 Application topically to affected area every 8 hours as needed for Hemorrhoids. Apply to rectal area Bisacodyl 10 MG Rectal Suppository (Dulcolax) Administer 1 Suppository into the rectum as needed for Constipation. Latanoprost 0.005 % Ophthalmic Solution (Xalatan) Instill 1 Drop into both eyes at bedtime. polyethylene glycol 3350 119 gram OR POWD Take 17 g by mouth as needed for Constipation. Acetaminophen 325 MG Oral Capsule Take 2 Tablets by mouth as needed for Other (Temp above 100.5 or pain). Enema Disposable Rectal Enema Administer 1 Application into the rectum as needed for Constipation. Apixaban 2.5 MG Oral Tablet (Eliquis) Take 1 Tablet by mouth in the morning and 1 Tablet before bedtime. Torsemide 10 MG Oral Tablet (Demadex) Take 1 Tablet by mouth daily as needed for Other (may take 1 extra dose daily if needed). Torsemide 20 MG Oral Tablet (Demadex) Take 2 Tablets by mouth in the morning and 2 Tablets in the evening. 120 Tablet 0 Miconazole Nitrate 2 % External Powder (Remedy) Apply topically to affected area 2 times a day. Apply to groin 85 g 0 Doxycycline Hyclate 100 MG Oral Capsule Take 1 Capsule by mouth in the morning and 1 Capsule beforebedtime. Do all this for 10 days. 20 Capsule 0 No current facility-administered medications for this visit. OBJECTIVE/PHYSICAL EXAMINATION: BP 98/60 | Pulse 60 | Resp 20 | Wt 86.2 kg (190 lb) | SpO2 98% Comment: at rest on 3L O2 | BMI 35.92 kg/m | BSA 1.93 m Wt Readings from Last 3 Encounters: 10/12/23 86.2 kg (190 lb) 10/09/23 85.3 kg (188 lb) 10/05/23 85.6 kg (188 lb 11.2 oz) Wt Readings from Last 3 Encounters: 10/12/23 86.2 kg (190 lb) 10/09/23 85.3 kg (188 lb) 10/05/23 85.6 kg (188 lb 11.2 oz) General: NAD, AAO x3, well nourished. HEENT: Normocephalic. Atraumatic. Conjunctiva pink, no scleral icterus. No carotid bruits, the carotid upstrokes are brisk. No JVD. No HJR Heart: Regular normal S-1 and S-2 no S-3 or S-4 gallop. 1-2/6 low-pitched early peaking systolic ejection murmur heard best at the right 2nd intercostal space. No diastolic murmur is not appreciated. PMI is not displaced. No RV heave. Lungs: Clear bilateral without rales , rhonchi, or wheeze. Abdomen: Normal bowel sounds. Soft. Nontender. No masses or organomegaly. No abdominal bruits. Extremities: No significant edema. No clubbing, or cyanosis. Pulses: radial=2/4, Dorsalis pedis =2/4. Neuro: No focal deficits. Latest Reference Range & Units 10/04/23 06:29 Triglycerides <=174 mg/dL 47 Cholesterol <200 mg/dL 48 Non-HDL Cholesterol <=159 mg/dL 24 HDL Cholesterol >49 mg/dL 24 (L) LDL Cholesterol <=129 mg/dL 15 (L): Data is abnormally low Latest Reference Range & Units 10/12/23 14:48 Sodium 135 - 146 mmol/L 131 (L) Potassium 3.5 - 5.1 mmol/L 3.7 Chloride 98 - 107 mmol/L 93 (L) CO2 22 - 32 mmol/L 29 BUN 6 - 20 mg/dL 35 (H) Creatinine 0.5 - 1.0 mg/dL 1.3 (H) Estimated Glomerular Filtration Rate >=60 mL/min 40 (L) Anion Gap 7 - 15 mmol/L 9 Glucose 70 - 120 mg/dL 150 (H) Calcium 8.4 - 10.2 mg/dL 9.7 (L): Data is abnormally low (H): Data is abnormally high ASSESSMENT: 87 year old female 1. Moderate Aortic stenosis and moderate mitral stenosis with pulm hypertension. Stable per recent echo. 2. Normal coronary arteries per cath in September 2021. 3. Hypertrophic cardiomyopathy severe left ventricular hypertrophy. Conservative therapies. 4. 4.5 cm ascending aortic aneurysm -stable per echocardiogram 04/2021, CTA 09/2021, echo 09/2021, CTscan Jul 2023 5. Hypertension - currently controlled 6. Dyslipidemia - 7. Chronic LE edema - improved 8. Hyponatremia 9. Persistent atrial fib, rates controlled. Continue Eliquis 10. Pulm fibrosis/Interstitial lung disease recurrent pneumonia PLAN: We reviewed recent hospital records. Stable echo findings with moderate and severe mitral stenosis. Conservative therapies recommended. Volume status improved with torsemide. Weight continues to trend down. Need to avoid dehydration given severe hypertrophic cardiomyopathy. Long discussion today with her family. She has likely severe underlying pulm fibrosis/underlying interstitial lung disease which is driving her SOB. Currently she appears euvolemic yet requiring supplemental O2 and is severely SOB with minimal exertion. Would not increase diuretics today. Labs today are stable. She needs to f/u with PCP and pulmonology. Continue O2. CHF tools discussed including daily weights, salt/sodium/fluid restriction, and use of diuretic protocol. The patient is to continue all current medications as listed above. No changes were made at today'svisit. Patient is being evaluated in the cardiology office for ongoing care/risk management for CHF; valvular heart disease; PAF. I spent a total of 40 minutes on the date of service in preparation, delivery, and documentation ofthe care provided to Maria Luisa Recinos excluding any time spent in the performance of separately billed services. The patient agrees to the above plan and will call with additional questions or concerns. ER with all emergencies advised. Check-out note: 6 week follow up Jennifer Queen PA-C Department of Cardiology This chart was completed in part utilizing [employer] Speech Voice Recognition Software. Grammatical errors, random word insertions, prounoun errors, and incomplete sentences are an occasional consequence of this system due to software limitations, ambient noise, and hardware issues. Any formal questions or concerns about the content, text, or information contained within the body of this dictation should be directly addressed to the provider for clarification. documented in this encounter Nursing Notes * Mariely Escalante LPN - 10/12/2023 3:29 PM EDT Examination Room: 6 Name: Maria Luisa Recinos Date of : 1935 Reason for Visit: Follow up Problems/Concerns: Edema, weight gain, sob [facility] Chest Pain/SOB: Denies CP MyChart Discussed: ALREADY ACTIVE Patient was instructed to not get up on the exam table until directed and assisted by their provider; patient is to remain seated in the chair/ wheelchair/ exam table for fall prevention and safety reasons. Patient is aware staff will assist stepping down off exam table with personnel. documented in this encounter Plan of Treatment Upcoming Encounters Date Type Department Care Team (Late st Contact Info) Description 10/20/2023 8:00 AM EDT Telemedicine Nephrology, [place] [address] [place] [address] Viktor Nicole MD [address] [place] [address] 11/07/2023 8:30 AM EDT Telemedicine Pulmonary Medicine, [place] [address], [place] [id number] Yocasta Proctor CRNP [address], [place] [id number] 11/24/2023 10:30 AM EDT Office Visit Cardiology, [facility] [address] [place] [address] Jennifer Queen PA-C [address] [place] [address] Health Maintenance Due Date Last Done Comments [...] as of this encounter Visit Diagnoses Diagnosis Chronic heart failure with preserved ejection fraction (HCC)- Primary Hypertrophic cardiomyopathy (HCC) Other hypertrophic cardiomyopathy Persistent atrial fibrillation (HCC) Atrial fibrillation Chronic hyponatremia Hyposmolality and/or hyponatremia Nonrheumatic aortic valve stenosis Aortic valve disorders Pulmonary HTN (HCC) Other chronic pulmonary heart diseases Interstitial lung disease (HCC) Postinflammatory pulmonary fibrosis documented in this encounter Advance Directives Latest [...] the patient have Health Care Power of Ship Laborer? No Code Status History Code Status Date Activated Date Inactivated Comments Full Code 08/29/2023 8:14 PM 09/01/2023 6:46 PM This o rder reflects the patients wishes and were consensually agreed upon. Question Answer Comments Discussion of Advance Directives occurred with: Patient Does the patient have a Living Will? No Does the patient have Health Care Power of Ship Laborer? No Full Code 08/19/2023 2:26 PM 08/25/2023 7:30 PM This order reflects the patients wishes and were consensually agreed upon. Question Answer Comments Discussion of Advance Directives occurred with: Patient Does the patient have a Living Will? No Does the patient have Health Care Power of Ship Laborer? No Full Code 07/30/2023 11:50 AM 08/02/2023 5:34 PM This order reflects the patients wishes and were consensually agreed upon. Question Answer Comments Discussion of Advance Directives occurred with: Patient Full Code 10/01/2021 4:02 PM 10/05/2021 5:45 PM This or aydin reflects the patients wishes and were consensually agreed upon. Care Teams Disk Operator Relationship Specialty Start Date End Date Jeanna Bal PA-C 1 [facility] [place] [id number] PCP - General Physician Optical Dispenser 06/13/17 documented as of this encounter"
--- OUTSIDE RECORDS SUMMARY | 2023-12-06 21:44 | External Medical Summary | Summary of Care ---
Author Name Unknown Organization [facility] Address [address] [place] [address] Phone [phone] Care Team Providers Care [employer] Name Role Phone Jeanna Bal PA-C Primary Care Provi aydin Reason for Visit * Evaluate & Treat - Unlimited Visits (Within 10 days (routine)) - Authorized Specialty Diagnoses / Procedures Referred By Kasey nagy Referred To Contact Nephrology Diagnoses Acute decompensated heart failure (HCC) Sai Nelson MD [address] [facility] [place] [address] Referral ID Status Reason Start Date Expiration Date Visits Requested Visits Authorized [id number] Authorized Specialty Services Required 09/01/[id number] Encounter Details Date Type Department Care Team (Late st Contact Info) Description 10/20/2023 8:00 AM EDT [facility] [address] [place], [place] [id number] Viktor Nicole MD [address] [place] [address] [place], [place] [id number] Stage 3a chronic kidney disease (HCC)*; Chronic heart failure with preserved ejection fraction (HCC); Chronic hyponatremia; Heart failure due to valvular disease, unspecified heart failure type (HCC); Frailty; Chronic asymptomatic hypotension Allergies Active Allergy Reactions Criticality Noted Date Comments Amoxicillin Hives Medium 03/22/2016 Gatifloxacin Nausea/vomiting Medium 03/22/2016 Latex Rash Medium 03/22/2016 Other reaction(s): johnson documented as of this encounter (statuses as of 10/20/2023) Medications Medication Sig Dispensed Refills Start Date [...] Active Preparation H 1-0.25-14.4-15 % External Cream (Uflhdr-VI-Qmkpwmy n-Petrolatum) Apply 1 Application topically to affected [...] as of this encounter (statuses as of 10/20/2023) Active Problems Problem Noted Date Diagnosed Date [...] 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 Coronary artery disease invo lving [place] coronary artery of [place] heart without angina pectoris 03/22/2016 Essential hypertension with goal blood pressure less than 140/90 03/22/2016 Dyslipidemia, goal to be determined 03/22/2016 documented as of this encounter (statuses as of 10/20/2023) Resolved Problems Problem Noted Date Diagnosed Date Resolved Date Acute respiratory failure due to COVID-19 07/30/2023 08/01/2023 Pneumonia due to COVID-19 virus 07/30/2023 08/01/2023 NSTEMI (non-ST elevated myoc ardial infarction) 09/30/2021 10/05/2021 Pain in both lower extremities 03/22/2016 07/30/2023 documented as of this encounter (statuses as of 10/20/2023) Immunizations Name Administration Dates Next Due COVID-19 [...] as of this encounter Progress Notes * Viktor Nicole MD - 10/20/2023 8:14 AM EDT Nephrology Clinic Note [facility] Nephrology [address] [place], [address] 10/20/2023, 8:15 AM Patient location: HOME. I was in a hospital or clinic location. After connecting through televideo,patient was verified with two unique identifiers. Patient (or authorized legal insurance account representative) was then informed that this was a Telemedicine visit and being conducted confidentially over secure lines. Methods to assure confidentiality were taken. Patient acknowledged consent and understanding of pr ivacy and security of the Telemedicine visit. The patient agreed to participate. Referral from Dr. Sai Nelson MD Reason for referral: Hospital discharge follow-up Accompanied by daughter. HPI: 87 year old, female presents to nephrology clinic for follow up of CKD and chronic hyponatremia. . Past medical history significant for hypertension heart failure with preserved ejection fraction hypertrophic obstructive cardiomyopathy severe mitral stenosis moderate aortic stenosis abdominal aortic aneurysm chronic hypoxic respiratory failure on supplemental oxygen, Recently admitted and [facility] for weakness and diagnosed with hyponatremia. Previously had multiple hospitalizations for heart failure. She was seen by Dr. Fontaine inpatient and was felt to have multifactorial hypotonic hyponatremia that was zrxm-mu-svpybrtl with serum sodium levels of 126-131. The etiology of hyponatremia was felt to be multifactorial including heart failure and low-salt intake. Was recommended to have fluid restriction less than 1200 mL a day recommended to switch Lasix to torsemide 20 mg twice a day and Quan 15 g twice a day. She was not discharged on quan. History provided in large part by daughter. Retaining fluid, several hospitalizations, Since home still on oxygen, gaining some strength. Swelling is "good". Eats 3 times a day - avoids salt. Per daughter meals are as follow: Breakfast: egg orange, fruit cocktail kyrgyz muffin, juice. Lunch: chicken pot pie, lasagna or salad. Supper: Boost, bowl of cereal. Fruit. 4 x 16 oz bottles of water a day + bowl of milk. Boost 1 bottle /day + hot tea once or twice a week. I reviewed DC summary note from 10/05/[address] Estes. Admitted 10/03/2023 for ADHF, torsemide increased to 40 mg bid. Had CTPE which was neg for PE. I reviewed Cardiology note from 10/12/2023 by Bret Rodriguez PA-C. Lost 15-20 lb fluid total. Visit BPwas 98/60. [place] to have undelying pulm fibrosis. Rec fu with pulmonology. ROS no falls no PFEIFFER. Reports good appetite. No FCS chronic SOB. Is on 3L/m oxygen. PMH: has a past medical history of AAA (abdominal aortic aneurysm) ([facility]), Acute combined systolic and diastolic CHF, NYHA class 1 ([facility]) (10/03/2023), Aortic stenosis, mild, Atrial fibrillation (HCC),CAD (coronary artery disease), Chronic respiratory failure (HCC), Graves disease, Hypertrophic cardiomyopathy (HCC), Mixed hyperlipidemia, Moderate mitral stenosis, Nonrheumatic mitral valve stenosis, Primary hypertension, Pulmonary hypertension (HCC), Second hand smoke exposure, Severe tricuspid regurgitation, and Supplemental oxygen dependent. PSH: has a past surgical history that includes appendectomy w/other procedure; lap;w/hysterectomy; pr cholecystectomy; and Coronary Angiography w/left heart Cath (Right, 10/04/2021). SH: reports that she has never smoked. She has been exposed to tobacco smoke. She has never used smokeless tobacco. She reports that she does not currently use alcohol. She reports that she does not use drugs. FH: family history includes Diabetes in her mother; Heart Disorder in her aunt (unspecified) and uncle (unspecified); Heart Disorder (age of onset: 63) in her father; Hypertension in her brother, daughter, and son; Stroke in her mother.. Review of patient's allergies indicates: Allergen Reactions [...] by mouth every evening.) 90 Tablet 6 Ipratropium-Albuterol 0.5-2.5 (3) MG/3ML Inhalation Solution (Duoneb) [...] bedtime. Preparation H 1-0.25-14.4-15 % External Cream (Ewoxrm-XN-Rqowmusj-Petrolatum) Apply 1 Application topically to affected area [...] day. Apply to groin 85 g 0 Potassium Chloride ER 10 MEQ Oral Capsule Extended Release Take 2 Capsules by mouth in the morning and 2 Capsules before bedtime. Current Facility-Administered Medications Medication Dose Route Frequency Provider Last Rate Last Admin Albuterol Sulfate (Proventil) (2.5 MG/3ML) 0.083% inhalation solution 2.5 mg 2.5 mg Nebulizer Yocasta Lemus CRNP OBJECTIVE: There were no vitals taken for this visit. Pleasant, accompanied by daughter. Trace edema. Laboratory Data Trends Personally Reviewed: Recent Labs Units 10/12/23 1448 10/09/23 1036 10/05/23 0552 10/04/23 0629 SODIUM - [facility] mmol/L 131* 132* 134* 135 POTASSIUM - [facility] mmol/L 3.7 3.5 4.0 3.3* CHLORIDE - [facility] mmol/L 93* 95* 96* 97* CO2 - [facility] mmol/L 29 26 26 29 BUN - [facility] mg/dL 35* 35* 33* 31* CREATININE - [facility] mg/dL 1.3* 1.2* 1.5* 1.4* Recent Labs Units 10/12/23 1448 10/09/23 1036 10/05/23 0552 WBC K/uL 9.59 12.49* 10.32 HGB g/dL 11.0* 11.2* 11.9* PLT K/uL 304 269 269 Recent Labs Units 10/12/23 1448 10/09/23 1036 10/05/23 0552 10/04/23 0629 10/04/23 0055 10/03/23 1802 09/01/23 0539 CALCIUM - [facility] mg/dL 9.7 9.2 9.5 9.0 < > 9.4 8.7 PHOSPHORUS - [facility] mg/dL -- -- 3.4 4.1 -- 4.3 3.4 < > = values in this interval not displayed. Recent Labs Units 09/26/22 0747 01/14/22 0817 HEMOGLOBIN, [id number] LAB % 5.9* 5.6 I reviewed the following pertinent imaging studies Renal US CTA chest 10/03/2023: Compared to a CT chest with contrast dated 08/29/2023, interval improvement inpatches of infiltrate within each lung. Mild residual patches of infiltrate within the periphery ofeach lung. No pleural fluid collection. Compared to 10/01/2019, once again noted are peripheral areas of chronic interstitial fibrosis within each lung. Echo 08/30/2023: No LV segmental wall motion abnormalities. The left ventricular systolic function is normal. The qualitative LV ejection fraction is 60-64% (normal). There is dynamic left ventricularoutflow tract obstruction at rest. The resting peak instantaneous left ventricular outflow tract gradient is 51 mm Hg. There is diffuse right ventricular hypokinesis. The right ventricular cavity size is enlarged (basal dimension > 4.2 cm RV apical 4 chamber view). Severe tricuspid regurgitationis present. The aortic valve is moderately calcified. Image and Doppler assessment of aortic stenosis severity is discordant: Moderate aortic stenosis is suspected. Mild to moderate aortic valve regurgitation is present. Image and Doppler assessment of mitral stenosis severity is discordant: Severemitral stenosis is suspected. Mitral regurgitation is detected but not quantitated. The proximal ascending thoracic aorta is mildly enlarged. ASSESSMENT: ICD-10-CM 1. Stage 3a chronic kidney disease (HCC) N18.31 2. Chronic heart failure with preserved ejection fraction ([facility]) I50.32 3. Chronic hyponatremia E87.1 4. Heart failure due to valvular disease, unspecified heart failure type ([facility]) I50.9 I38 5. Frailty R54 6. Chronic asymptomatic hypotension I95.89 For hyponatremia. Long discussion reg wtiol - multifactorial - low solute intake, vol overload. Loop diuretic help keep her volume up. Will screen for adrenal insuff with cortisol. Her TSH was normal. Advised increase protein intake - add whey protein supplement 25 -50 g.day, increase consumption of high protein foods, serbian yoghurt, etc. will obtain blood work to review her water excretion ability. Advised to get blood work every month for now. Potentially may benefit from addition of an [id number] which off-label will be able to help with the hyponatremia. At the same time this may be helpful for her heart failure remodeling etc. we will discuss with Cardiology Chronic kidney disease stage IIIA no proteinuria likely in the setting of her valvular heart disease multiple episodes of heart failure and need for high-dose diuretics. Overall low risk of progression to end-stage renal disease. We will have to continue low-salt diet and avoid salt tablets/other supplements that will make her heart failure worse Avoidance of NSAIDs and iodinated intravenous contrast agents. Orders for the encounter: Soon: Osmolality, urine Osmolality, serum Potassium, random urine Sodium, random urine Renal function panel Cortisol Standing Basic metabolic panel Albumin / creatinine ratio, urine Pth Iron screen, including tibc Hgb Follow Up: Return in about 3 months (around 01/20/2024) for follow up. | For: follow up | Check-out note: In [facility] or [facility] in person. Viktor Nicole MD Nephrology, [place] [address] [address] [facility] [id number] documented in this encounter Plan of Treatment Upcoming Encounters Date Type Department Care Team (Late st Contact Info) Description 11/07/2023 8:30 AM EDT Telemedicine Pulmonary Medicine, [address] [address] [facility]asta Proctor [facility] [place] [address] 11/24/2023 10:30 AM EDT [facility] Visit [facility] [place] [address] Jennifer Queen PA-C [address] [place] [address] Scheduled Orders Name Type Priority Associated Diagnoses Orde r Schedule OSMOLALITY, URINE Lab Routine Chronic hyponatremia Expected: 10/20/2023 (Approximate), Expires: 11/24/2023 OSMOLALITY, SERUM Lab Routine Chronic hyponatremia Expected: 10/20/2023 (Approximate), Expires: 11/24/2023 POTASSIUM, RANDOM URINE Lab Routine Chronic hyponatremia Expected: 10/20/2023 (Approximate), Expires: 11/24/2023 SODIUM, RANDOM URINE Lab Routine Chronic hyponatremia Expected: 10/20/2023 (Approximate), Expires: 11/24/2023 BASIC METABOLIC PANEL Lab Routine Chronic hyponatremia Every Month for 12 Occurrences starting 10/20/2023 until 10/19/2024 ALBUMIN / CREATININE RATIO, URINE Lab Routine Stage 3a chronic kidney disease (HCC) Every 3 Months for 4 Occurrences starting 10/20/2023 until 11/19/2024 PTH Lab Routine Stage 3a chronic kidney disease (HCC) Every 3 Months for 4 Occurrences starting 10/20/2023 until 10/19/2024 IRON SCREEN, INCLUDING TIBC Lab Routine Stage 3a chronic kidney disease (HCC) Every 6 Months for 2 Occurrences starting 10/20/2023 until 10/19/2024 HGB Lab Routine Stage 3a chronic kidney disease (HCC) Every 6 Months for 2 Occurrences starting 10/20/2023 until 10/19/2024 RENAL FUNCTION PANEL Lab Routine Stage 3a chronic kidney disease (HCC) Expected: 10/20/2023 (Approximate), Expires: 11/24/2023 CORTISOL Lab Routine Chronic hyponatremia Expected: 10/20/2023, Expires: 11/20/2023 Health Maintenance Due Date Last Done Comments [...] as of this encounter Visit Diagnoses Diagnosis Stage 3a chronic kidney disease (HCC)- Primary Chronic heart failure with preserved ejection fraction (HCC) Chronic hyponatremia Hyposmolality and/or hyponatremia Heart failure due to valvular disease, unspecified heart failure type (HCC) Frailty Senility without mention of psychosis Chronic asymptomatic hypotension documented in this encounter Advance Directives Latest [...] patient have Health Care Power of Product Accountant? No Code Status History Code Status Date Activated Date Inactivated Comments Full Code 08/29/2023 8:14 PM 09/01/2023 6:46 PM This o rder reflects the patients wishes and were consensually agreed upon. Question Answer Comments Discussion of Advance Directives occurred with: Patient Does the patient have a Living Will? No Does the patient have Health Care Power of Product Accountant? No Full Code 08/19/2023 2:26 PM 08/25/2023 7:30 PM This order reflects the patients wishes and were consensually agreed upon. Question Answer Comments Discussion of Advance Directives occurred with: Patient Does the patient have a Living Will? No Does the patient have Health Care Power of Product Accountant? No Full Code 07/30/2023 11:50 AM 08/02/2023 5:34 PM This order reflects the patients wishes and were consensually agreed upon. Question Answer Comments Discussion of Advance Directives occurred with: Patient Full Code 10/01/2021 4:02 PM 10/05/2021 5:45 PM This or aydin reflects the patients wishes and were consensually agreed upon. Care Teams [employer] Art Teacher Relationship Specialty Start Date End Date Jeanna Bal PA-C 1 [facility] [address] [place] [address] [place] [id number] PCP - General Physician Business And Marketing Teacher 06/13/17 documented as of this encounter
--- OUTSIDE RECORDS SUMMARY | 2023-12-06 21:44 | External Medical Summary ---
Author Name Unknown Address Unknown Organization [id number]:[facility] [address] [place] [address] Laboratory Report Ordering Provider Test Date Status OPHELIA SCHWARZ 10/12/2023 14:48:12 Final Discharge Order Observation Date Value Abnormality Reference (Units ) Status WBC, Total 10/12/2023 14:48:12 9.59 4.00-10.8 0 (K/uL) Final RBC 10/12/2023 14:48:12 3.83 3.85-5.15 (M/uL) Final Hemoglobin 10/12/2023 14:48:12 11.0 Below low normal 12 .0-15.3 (g/dL) Final HCT 10/12/2023 14:48:12 35.2 Below low normal 36. 0-45.2 (%) Final MCV 10/12/2023 14:48:12 91.9 81.5-97.5 (fL) Final MCH 10/12/2023 14:48:12 28.7 27.0-34.0 (pg) Final MCHC 10/12/2023 14:48:12 31.3 32.0-36.0 (g/dL) Final RDW 10/12/2023 14:48:12 16.6 11.5-15.5 (%) Final Platelets 10/12/2023 14:48:12 304 140-400 (K /uL) Final MPV 10/12/2023 14:48:12 9.1 6.6-11.1 ( fL) Final Performing Location [facility] [address] [place] [id number]
--- OUTSIDE RECORDS SUMMARY | 2023-12-06 21:44 | External Medical Summary | Summary of Care ---
Author Name Unknown Organization [facility] Address [address] [place] [address] Phone [phone] Care Team Providers Care Hand Stonecutter Name Role Phone Jeanna Bal PA-C Primary Care Provi aydin Reason for Referral * Evaluate & Treat - Unlimited Visits (Within 3 days (urgent)) - Authorized Specialty Diagnoses / Procedures Referred By Kasey nagy Referred To Contact Gastroenterology Diagnoses Rectal bleeding Pietro John PA-C [address] [phone] Referral ID Status Reason Start Date Expiration Date Visits Requested Visits Authorized [id number] Authorized Specialty Services Required 10/23/[phone] Question Answer Referral Priority Within 3 days (urgent) Where should this appointment be scheduled? [facility] For what condition is the patient being referred? All Gastro Conditions Comments Discharge Order Reason for Visit * Reason Comments Rectal Bleeding * Auth/Cert Specialty Diagnoses / Procedures Referred By Kasey nagy Referred To Contact [facility] [address] [place] [address] Phone: [phone] Emergency Medicine [facility] [address] [place], [place] [phone] Referral ID Status Reason Start Date Expiration Date Visits Re quested Visits Authorized [id number] Encounter Details Date Type Department Care Team ([facility] Contact Info) Description 10/23/2023 12:00 PM EDT - 10/23/2023 4:13 PM EDT Emergency [facility] Emergency Department ([facility]) [address] [facility] [address] De Faith, DO [address] [place], [place] [id number] Rectal bleeding (Primary Dx) Discharge Disposition: Home - Self Care Allergies Active Allergy Reactions Criticality Noted Date Comments Amoxicillin Hives Medium 03/22/2016 Gatifloxacin Nausea/vomiting Medium 03/22/2016 Latex Rash Medium 03/22/2016 Other reaction(s): johnson documented as of this encounter (statuses as of 10/24/2023) Medications Medication Sig Dispensed Refills Start Date [...] Active Preparation H 1-0.25-14.4-15 % External Cream (Jxwgmi-AW-Pivelit n-Petrolatum) Apply 1 Application topically to affected [...] as of this encounter (statuses as of 10/24/2023) Active Problems Problem Noted Date Diagnosed Date [...] 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 Coronary artery disease invo lving marshall coronary artery of marshall heart without angina pectoris 03/22/2016 Essential hypertension with goal blood pressure less than 140/90 03/22/2016 Dyslipidemia, goal to be determined 03/22/2016 documented as of this encounter (statuses as of 10/24/2023) Resolved Problems Problem Noted Date Diagnosed Date Resolved Date Acute respiratory failure due to COVID-19 07/30/2023 08/01/2023 Pneumonia due to COVID-19 virus 07/30/2023 08/01/2023 NSTEMI (non-ST elevated myoc ardial infarction) 09/30/2021 10/05/2021 Pain in both lower extremities 03/22/2016 07/30/2023 documented as of this encounter (statuses as of 10/24/2023) Immunizations Name Administration Dates Next Due COVID-19 [...] Sign Reading Time Taken Comments Blood Pressure 108/65 10/23/2023 3:54 PM EDT Pulse 77 10/23/2023 3:54 PM EDT Temperature 36.3 C (97.3 F) 10/23/2023 3:54 PM ED T Respiratory Rate 18 10/23/2023 3:54 PM EDT Oxygen Saturation 100% 10/23/2023 3:54 PM EDT 3 liters Inhaled Oxygen Concentration - - Weight - [...] * Discharge Instructions* Pietro John PA-C - 10/23/2023 3:29 PM EDT You have been seen and evaluated in the Emergency Department of [facility]. Please readthe discharge instructions below regarding your care. Summary Of Today's Visit: You were seen today for an evaluation of rectal bleeding. New Prescriptions/Medication Changes: Please remain well hydrated. Please avoid constipation as this will and can exacerbate your rectal bleeding if hemorrhoids are the causative agent. You may also utilize warm Sitz baths as after having a bowel movement. These warm baths can help decrease vasospasm and decreased bleeding from hemorrhoids. Your workup today was overall reassuring at this time. It is likely that you have internal hemorrhoids causing your current bleeding. Follow Up/Continuation Of Care: Please follow-up with your heavy forging machine operator referral for your rectal bleeding. Other Important Information/Return Instructions: If you develop uncontrolled bleeding, shortness of breath, chest pain, severe dizziness or you haveany other emergent concerns please return to the ED. Thank you for allowing us to care for you. Our goal is to provide you the best care. If you have any emergency needs in the future we will be glad to help you again. We are here to serve you! documented in this encounter Miscellaneous Notes * Pt Handout (on AVS) - Pietro John PA-C - 10/23/2023 3:23 PM EDT [id number] Evaluating and Treating Rectal Bleeding To find the site and cause of your bleeding, you'll have a physical exam. You'll be asked about your health history. Tests may be done to help confirm the diagnosis and plan your treatment. Tests you may have As part of your evaluation, a flexible sigmoidoscopy or colonoscopy may be done. You will have blood work done. You may also have these tests: Stool sample. A small amount of your stool will be checked for blood. Anoscopy. This test uses a small tube (anoscope) to examine the anus. It checks for problems, such as hemorrhoids. Sigmoidoscopy. This test uses a lighted tube to check your rectum and the part of the large intestine that's closest to the rectum (the sigmoid colon). Colonoscopy. This test looks at your rectum and entire colon. You will be given medicine throughan IV (intravenous) line to help you relax. Lower GI (gastrointestinal) series, or barium enema. This is an X-ray test to view your colon. Amilky liquid containing barium is passed through your rectum and into the colon. This liquid makes it easy to see your colon on the X-ray. This test is not done that often anymore. Upper endoscopy. This test checks your esophagus, stomach, and upper small intestine. It's done in cases of rectal bleeding along with other symptoms like low blood pressure and rapid heartbeat. This test may also be done if your stools are dark black and tarry. Capsule endoscopy. For this test, you swallow a pill that has a tiny camera inside. The camera takes pictures of your small intestine. It can get to areas that are hard to reach with colonoscopy and upper endoscopy. Balloon or spiral enteroscopy. These tests use a special tube (scope) to get deep into the smallintestine. Tagged red blood cell scan. This test jasmine (tags) red blood cells with very small amounts of radioactive material. The cells can then be seen and tracked on a scan. Angiography. This test threads a tube (catheter) through a vein, often in the leg. Dye is injected through the tube into your blood vessels to see where the bleeding is taking place. Your treatment plan Your treatment will depend on the cause of your rectal bleeding, as well as the severity of the bleeding. Your healthcare provider will create a treatment plan that?s right for you. Sometimes rectal bleeding stops on its own. Either way, be sure to see your provider to find the cause of the problem. What you can do Follow all your healthcare provider?s instructions. Keep working with your provider after your treatment. Make and keep your follow-up visits. If you have more rectal bleeding, call your provider. Itmay be a sign of the same or another health problem. Last Reviewed Date: 03/31/202319993303-2433 [employer]. All rights reserved. This information is not intended as a substitute for professional medical care. Always follow your healthcare professional's instructions. * ED Stock Supervisor Note - Jojo Almanzar RN - 10/23/2023 12:07 PM EDT Pt presents to ED with daughter. Pt says she has hemorrhoids that have been bleeding more often. Daughter said she stopped giving her eliquis (last given Mon) because that is what they have done in past when bleeding. Now pt says she has abd pain LLQ for a few days, worsening each day. Denies N/V/D. documented in this encounter Plan of Treatment Upcoming Encounters Date Type Department Care Team (Late st Contact Info) Description 10/31/2023 1:00 PM EDT Office Visit Gastroenterology, [facility] [address] [place] [address] Trenton Cameron CRNP [address] [place] [address] 11/07/2023 8:30 AM EDT Telemedicine Pulmonary Medicine, [place] [address] [place] [address] Yocasta Proctor CRNP [address] [place] [address] 11/24/2023 10:30 AM EDT Office Visit Cardiology, [facility] [address] [place] [address] Jennifer Queen PA-C [address] [place] [id number] Scheduled Referrals Name Type Priority Associated Diagnoses Order Schedule ADULT GASTROENTEROLOGY REFERRAL OP Referral Within 3 days (urgent) Rectal bleeding Ordered: 10/23/2023 Health Maintenance Due Date Last Done Comments [...] Procedure Name Priority Date/Time Associated Diagnosis Comments CTA ABD/PELVIS STAT 10/23/2023 1:41 PM EDT DIFFERENTIAL, AUTOMATED STAT 10/23/2023 12:48 PM EDT COMPREHENSIVE METABOLIC PANEL STAT 10/23/2023 12:48 PM EDT ABO/RH STAT 10/23/2023 12:48 PM EDT TYPE AND SCREEN Routine 10/23/2023 12:48 PM EDT CBC STAT 10/23/2023 12:48 PM EDT PT INR STAT 10/23/2023 12:48 PM EDT LIPASE STAT 10/23/2023 12:48 PM EDT LACTATE,WHOLE BLOOD Routine 10/23/2023 1 2:48 PM EDT APTT STAT 10/23/2023 12:48 PM EDT CBC STAT 10/23/2023 12:48 PM EDT documented in this encounter Results * CTA ABD/PELVIS (10/23/2023 1:41 PM EDT) Anatomical Region Laterality Modality Abdomen, Pelvis, Body Computed T omography 10/23/2023 1:31 PM EDT Impressions 10/23/2023 3:16 PM EDT IMPRESSION: 1. Bilateral ground-glass regions of opacification at both lung bases. Findings nonspecific and may reflect interstitial lung disease. 2. No evidence of acute intra-abdominal abnormality. THIS DOCUMENT HAS BEEN ELECTRONICALLY SIGNED BY DEANA JOHNSON MD Narrative 10/23/2023 3:16 PM EDT PROCEDURE INFORMATION: Exam: CTA Abdomen and Pelvis With Contrast Exam date and time: 10/23/2023 1:31 PM Age: 87 years old Clinical indication: Abdominal pain; Generalized; Additional info: Llq pain, rectal bleeding, aaa HX TECHNIQUE: Imaging protocol: Computed tomographic angiography of the abdomen and pelvis with contrast. Exam focused on the arteries. 3D rendering (Not supervised by radiologist): MIP and/or 3D reconstructed images were created by the technologist. Radiation optimization: All CT scans at this facility use at least one of these dose optimization techniques: automated exposure control; mA and/or kV adjustment per patient size (includes targeted exams where dose is matched to clinical indication); or iterative reconstruction. Contrast material: OPTIRAY 350; Contrast volume: 100 ml; Contrast route: INTRAVENOUS (IV); COMPARISON: None FINDINGS: Lungs: Bilateral ground-glass regions of opacification at both lung bases. Findings nonspecific and may reflect interstitial lung disease. Diaphragm: Small hiatal hernia Aorta: Scattered regions of atherosclerotic vascular calcification within the abdominal aorta and common iliac arteries. Celiac trunk and mesenteric arteries: No occlusion or significant stenosis. Renal arteries: No occlusion or significant stenosis. Right iliac arteries: No occlusion or significant stenosis. Left iliac arteries: No occlusion or significant stenosis. Liver: The liver is unremarkable. Gallbladder and bile ducts: Cholecystectomy Pancreas: Pancreas unremarkable Spleen: The spleen is unremarkable. Adrenal glands: Adrenal glands unremarkable. Kidneys and ureters: No hydronephrosis. Stomach and bowel: Colonic diverticulosis. No evidence of diverticulitis. Appendix: No evidence of appendicitis. Intraperitoneal space: Unremarkable. No free air. No significant fluid collection. Lymph nodes: Unremarkable. No enlarged lymph nodes. Urinary bladder: Unremarkable. No mass. Reproductive: Unremarkable as visualized. Bones/joints: Lumbar spondylosis with multilevel disc degeneration. Artifact related to arthroplasty limits evaluation of the pelvis. Soft tissues: Unremarkable. Procedure Note Deana Johnson MD - 10/23/2023 PROCEDURE INFORMATION: Exam: CTA Abdomen and Pelvis With Contrast Exam date and time: 10/23/2023 1:31 PM Age: 87 years old Clinical indication: Abdominal pain; Generalized; Additional info: Llqpain, rectal bleeding, aaa HX TECHNIQUE: Imaging protocol: Computed tomographic angiography of the abdomen andpelvis with contrast. Exam focused on the arteries. 3D rendering (Not supervised by radiologist): MIP and/or 3D reconstructed images were created by the technologist. Radiation optimization: All CT scans at this facility use at least one ofthese dose optimization techniques: automated exposure control; mA and/or kV adjustment per patient size (includes targeted exams where dose is matchedto clinical indication); or iterative reconstruction. Contrast material: OPTIRAY 350; Contrast volume: 100 ml; Contrast route: INTRAVENOUS (IV); COMPARISON: None FINDINGS: Lungs: Bilateral ground-glass regions of opacification at both lung bases. Findings nonspecific and may reflect interstitial lung disease. Diaphragm: Small hiatal hernia Aorta: Scattered regions of atherosclerotic vascular calcification withinthe abdominal aorta and common iliac arteries. Celiac trunk and mesenteric arteries: No occlusion or significantstenosis. Renal arteries: No occlusion or significant stenosis. Right iliac arteries: No occlusion or significant stenosis. Left iliac arteries: No occlusion or significant stenosis. Liver: The liver is unremarkable. Gallbladder and bile ducts: Cholecystectomy Pancreas: Pancreas unremarkable Spleen: The spleen is unremarkable. Adrenal glands: Adrenal glands unremarkable. Kidneys and ureters: No hydronephrosis. Stomach and bowel: Colonic diverticulosis. No evidence of diverticulitis. Appendix: No evidence of appendicitis. Intraperitoneal space: Unremarkable. No free air. No significant fluid collection. Lymph nodes: Unremarkable. No enlarged lymph nodes. Urinary bladder: Unremarkable. No mass. Reproductive: Unremarkable as visualized. Bones/joints: Lumbar spondylosis with multilevel disc degeneration.Artifact related to arthroplasty limits evaluation of the pelvis. Soft tissues: Unremarkable. IMPRESSION IMPRESSION: 1. Bilateral ground-glass regions of opacification at both lung bases. Findings nonspecific and may reflect interstitial lung disease. 2. No evidence of acute intra-abdominal abnormality. THIS DOCUMENT HAS BEEN ELECTRONICALLY SIGNED BY DEANA JOHNSON MD Pietro John PA-C RAD CT * ABO/RH (10/23/2023 12:48 PM EDT) Pathologist [facility] ABO A 10/23/2023 7:52 PM EDT LABORATORY [facility] BLOOD BANK Rh Positive 10/23/2023 7:52 PM EDT LABORATORY [facility] BLOOD B[facility] Blood Venous blood specimen / Unknown Venipuncture / Unknown 10/23/2023 12:48 PM EDT 10/23/2023 12:51 PM EDT Pietro John PA-C LAB BLOOD BANK T EST ORDERABLES LABORATORY [facility] BLOOD BANK [address] [place] [address] * (ABNORMAL) DIFFERENTIAL, AUTOMATED (10/23/2023 12:48 PM EDT) WBC 8.49 4.00 - 10.80 K/uL 10/23/2023 12:54 PM EDT LABORATORY [facility] Neutrophils % 74.2 40.0 - 75.0 % 10/23/2023 12:54 PM EDT LABORATORY [facility] Lymphocytes % 13.3(L) 18.0 - 42.0 % 10/23/2023 12:54 PM EDT LABORATORY [facility] Monocytes % 9.2 1.0 - 11.0 % 10/23/2023 12:54 PM EDT LABORATORY [facility] Eosinophils % 2.6 0.0 - 6.0 % 10/23/2023 12:54 PM EDT LABORATORY [facility] Basophils % 0.7 0.0 - 2.0 % 10/23/2023 12:54 PM EDT LABORATORY [facility] Absolute Neutrophils 6.30 1.80 - 7.70 K/uL 10/23/2023 12:54 PM EDT LABORATORY [facility] Absolute Lymphocytes 1.13 1.00 - 4.80 K/ul 10/23/2023 12:54 PM EDT LABORATORY [facility] Absolute Monocytes 0.78 0.00 - 1.10 K/uL 10/23/2023 12:54 PM EDT LABORATORY [facility] Absolute Eosinophils 0.22 0.00 - 0.70 K/uL 10/23/2023 12:54 PM EDT LABORATORY [facility] Absolute Basophils 0.06 0.00 - 0.20 K/uL 10/23/2023 12:54 PM EDT LABORATORY [facility] Blood Venous blood specimen / Unknown Venipuncture / Unknown 10/23/2023 12:48 PM EDT 10/23/2023 12:51 PM EDT Pietro John PA-C LAB BLOOD ORDERA BLES LABORATORY [id number] [place] [address] * (ABNORMAL) CBC (10/23/2023 12:48 PM EDT) WBC 8.49 4.00 - 10.80 K/uL 10/23/2023 12:54 PM EDT LABORATORY [facility] RBC 3.62 3.85 - 5.15 M/uL 10/23/2023 12:54 PM EDT LABORATORY [facility] HGB 10.4(L) 12.0 - 15.3 g/dL 10/23/2023 12:54 PM EDT LABORATORY [facility] HCT 33.2(L) 36.0 - 45.2 % 10/23/2023 12:54 PM EDT LABORATORY [facility] MCV 91.7 81.5 - 97.5 fL 10/23/2023 12:54 PM EDT LABORATORY [facility] MCH 28.7 27.0 - 34.0 pg 10/23/2023 12:54 PM EDT LABORATORY [facility] MCHC 31.3 32.0 - 36.0 g/dL 10/23/2023 12:54 PM EDT LABORATORY [facility] RDW 16.4 11.5 - 15.5 % 10/23/2023 12:54 PM EDT LABORATORY [facility] PLT 316 140 - 400 K/uL 10/23/2023 12:54 PM EDT LABORATORY [facility] MPV 8.9 6.6 - 11.1 fL 10/23/2023 12:54 PM EDT LABORATORY [facility] Blood Venous blood specimen / Unknown Venipuncture / Unknown 10/23/2023 12:48 PM EDT 10/23/2023 12:51 PM EDT Pietro John PA-C LAB BLOOD ORDERA BLES Performing Organization Address [facility]/ZIP Co de Phone Number LABORATORY [address] [address] * APTT (10/23/2023 12:48 PM EDT) aPTT 36 21 - 38 seconds 10/23/2023 1:04 PM EDT LABORATORY [facility] Blood Venous blood specimen / Unknown Venipuncture / Unknown 10/23/2023 12:48 PM EDT 10/23/2023 12:51 PM EDT Narrative LABORATORY [facility] - 10/23/2023 1:04 PM EDT Anticoagulation may affect testing. Refer to [employer] Test Catalog for a list of effects. Pietro John PA-C LAB BLOOD ORDERA BLES LABORATORY [address] [address] * (ABNORMAL) PT INR (10/23/2023 12:48 PM EDT) Prothrombin Time 18.5(H) 11.6 - 15.2 seconds 10/23/2023 1:03 PM EDT LABORATORY [facility] INR 1.5(H) 0.8 - 1.2 10/23/2023 1:03 PM EDT LABORATORY [facility] Blood Venous blood specimen / Unknown Venipuncture / Unknown 10/23/2023 12:48 PM EDT 10/23/2023 12:51 PM EDT Narrative LABORATORY [facility] - 10/23/2023 1:03 PM EDT Warfarin Therapy INR: 2.0-3.0 conventional anticoagulation INR: 2.5-3.5 high intensity anticoagulation Pietro ROJAS-C LAB BLOOD ORDERA BLES LABORATORY [id number] [place] [address] * TYPE AND SCREEN (10/23/2023 12:48 PM EDT) ABO A 10/23/2023 7:28 PM EDT LABORATORY [facility] BLOOD B[facility] Rh Positive 10/23/2023 7:28 PM EDT LABORATORY [facility] BLOOD B[facility] Red Blood Cell Antibody Screen Negative 10/23/2023 7:28 PM EDT LABORATORY [facility] BLOOD B[facility] Specimen Expiration Date 10/26/2023 23:59 10/23/2023 7:28 PM EDT LABORATORY [facility] BLOOD B[facility] Blood Venous blood specimen / Unknown Venipuncture / Unknown 10/23/2023 12:48 PM EDT 10/23/2023 12:51 PM EDT Pietro ROJAS-C LAB BLOOD BANK T EST ORDERABLES LABORATORY [facility] BLOOD BANK [address] [place] [address] * LIPASE (10/23/2023 12:48 PM EDT) Lipase 27 13 - 60 U/L 10/23/2023 1:10 PM EDT LABORATORY [facility] Blood Venous blood specimen / Unknown Venipuncture / Unknown 10/23/2023 12:48 PM EDT 10/23/2023 12:51 PM EDT Pietro John PA-C LAB BLOOD ORDERA BLES Performing Organization Address [facility]/ZIP Co de Phone Number LABORATORY [facility] [address] [place] [phone] * (ABNORMAL) LACTATE,WHOLE BLOOD (10/23/2023 12:48 PM EDT) Lactate, Whole Blood 2.1(H) 0.4 - 2.0 mmol/L 10/23/2023 12:55 PM EDT LABORATORY [facility] Blood Venous blood specimen / Unknown Venipuncture / Unknown 10/23/2023 12:48 PM EDT 10/23/2023 12:51 PM EDT Pietro ROJAS-C LAB BLOOD ORDERA BLES Performing Organization Address [facility] Co de Phone Number LABORATORY [address] [address] * (ABNORMAL) COMPREHENSIVE METABOLIC PANEL (10/23/2023 12:48 PM EDT) BUN 46(H) 6 - 20 mg/dL 10/23/2023 1:10 PM EDT LABORATORY [facility] Creatinine 1.3(H) 0.5 - 1.0 mg/dL 10/23/2023 1:10 PM EDT LABORATORY [facility] Estimated Glomerular Filtration Rate 41(L) >=60 mL/min 10/23/2023 1:10 PM EDT LABORATORY [facility] Comment:eGFR is calculated b ased on the CKD-EPI 2020 equation Sodium 132(L) 135 - 146 mmol/L 10/23/2023 1:10 PM EDT LABORATORY [facility] Potassium 4.5 3.5 - 5.1 mmol/L 10/23/2023 1:10 PM EDT LABORATORY [facility] Chloride 94(L) 98 - 107 mmol/L 10/23/2023 1:10 PM EDT LABORATORY [facility] CO2 26 22 - 32 mmol/L 10/23/2023 1:10 PM EDT LABORATORY [facility] Anion Gap 12 7 - 15 mmol/L 10/23/2023 1:10 PM EDT LABORATORY [facility] Glucose 91 70 - 120 mg/dL 10/23/2023 1:10 PM EDT LABORATORY [facility] Albumin 3.4(L) 3.8 - 5.0 g/dL 10/23/2023 1:10 PM EDT LABORATORY SH AST 38(H) 10 - 35 U/L 10/23/2023 1:10 PM EDT LABORATORY [facility] Alkaline Phosphatase 104 35 - 130 U/L 10/23/2023 1:10 PM EDT LABORATORY [facility] Bilirubin, Total 1.4(H) <=1.2 mg/dL 10/23/2023 1:10 PM EDT LABORATORY [facility] Calcium 10.1 8.4 - 10.2 mg/dL 10/23/2023 1:10 PM EDT LABORATORY [facility] Protein 7.2 6.0 - 8.3 g/dL 10/23/2023 1:10 PM EDT LABORATORY [facility] ALT 24 10 - 35 U/L 10/23/2023 1:10 PM EDT LABORATORY [facility] Blood Venous blood specimen / Unknown Venipuncture / Unknown 10/23/2023 12:48 PM EDT 10/23/2023 12:51 PM EDT Pietro John PA-C LAB BLOOD ORDERA BLES Performing Organization Address City/State/[facility] Co de Phone Number LABORATORY [id number] [place] [address] documented in this encounter Visit Diagnoses Diagnosis Rectal bleeding- Primary Hemorrhage of rectum and anus documented in this encounter Administered Medications Inactive Administered Medications - up to 3 most recent administrations Medication Order MAR Action Action Date Dose Rate Site Ioversol (Optiray 350) 74 % inj 100 mL 100 mL, Intravenous, ONCE, On Mon10/23/23 at 1415, For 1 dose, Radiology Medication Routing (Non-IR) Given 10/23/2023 1:39 PM EDT 100 mL NSS 0.9% 500 mL bolus infusion Intravenous, at 500 mL/hr Administer over 60 Minutes, Wide open, This infusion may be completed in less than 1 hour, since it will be a wide open rate, ONCE, 1 dose, On Mon10/23/23 at 1300 New Bag 10/23/2023 12:49 PM EDT 500 mL 5 00 mL/hr documented in this encounter Active and Recently Administered Medications Times are shown in EDT. Scheduled Medication Order 10/21/2023 10/22/2023 10/23/2023 Ioversol (Optiray 350) 74 % inj 100 mL (COMPLETED) 100 mL, Intravenous, ONCE, On Mon10/23/23 at 1415, For 1 dose, Radiology Medication Routing (Non-IR) 1339 (Given - Provid er: Sophie Jeffrey, RT) NSS 0.9% 500 mL bolus infusion (COMPLETED) Intravenous, at 500 mL/hr Administer over 60 Minutes, Wide open, This infusion may be completed in less than 1 hour, since it will be a wide open rate, ONCE, 1 dose, On Mon10/23/23 at 1300 1249 (New Bag - Prov ider: Jojo Almanzar RN)1349 (Stopped - Provider: Jojo Almanzar RN) documented in this encounter Advance Directives [...] the patient have Health Care Power of Business Process Engineer? No Code Status History Code Status Date Activated Date Inactivated Comments Full Code 08/29/2023 8:14 PM 09/01/2023 6:46 PM This o rder reflects the patients wishes and were consensually agreed upon. Question Answer Comments Discussion of Advance Directives occurred with: Patient Does the patient have a Living Will? No Does the patient have Health Care Power of Business Process Engineer? No Full Code 08/19/2023 2:26 PM 08/25/2023 7:30 PM This order reflects the patients wishes and were consensually agreed upon. Question Answer Comments Discussion of Advance Directives occurred with: Patient Does the patient have a Living Will? No Does the patient have Health Care Power of Business Process Engineer? No Full Code 07/30/2023 11:50 AM 08/02/2023 5:34 PM This order reflects the patients wishes and were consensually agreed upon. Question Answer Comments Discussion of Advance Directives occurred with: Patient Full Code 10/01/2021 4:02 PM 10/05/2021 5:45 PM This or aydin reflects the patients wishes and were consensually agreed upon. Care Teams Hand Stonecutter Relationship Specialty Start Date End Date Jeanna Bal PA-C [address] [address] [place] [id number] PCP - General Physician Calculus Professor 06/13/17 documented as of this encounter
--- OUTSIDE RECORDS SUMMARY | 2023-12-06 21:44 | External Medical Summary ---
Author Name UNSPECIFIED Address Unknown Organization [facility] History of Encounters Reason for Assessment: Resumption of car e (after inpatient stay) Inpatient discharge facility: Past 14 Da ys: Discharged From Short Stay Acute Hospital Most Recent Inpatient Discharge Date: Functional Assessment Patient Living Situation: Patient Lives Alone: Regular daytime When Dyspneic: With moderate exerti on (e.g., while dressing, using commode or bedpan, walking distances less than 20 feet) Bowel Incontinence Frequency: Very rarel y or never has bowel incontinence Cognitive and Behavioral and Psychiatric Symptoms: None Current Ability: Bathing: Able to bathe in [...] negotiate stairs or steps or uneven surfaces. 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, Hypertensive heart disease with heart failure Home Care Diagnosis 1: ICD Code: I50.33, Acute on chronic diastolic (congestive) heart failure Home Care Diagnosis 1: Severity Ratin Home Care Diagnosis 2: ICD Code: I50.22, Chronic systolic (congestive) heart failure Home Care Diagnosis 2: Severity Ratin Home Care Diagnosis 3: ICD Code: 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
--- OUTSIDE RECORDS SUMMARY | 2023-12-06 21:44 | External Medical Summary ---
Author Name Unknown Address Unknown Organization K1G:[facility] - [address] [place] [id number] Laboratory Report Ordering Provider Test Date Status EM PERRY 10/23/2023 12:48:23 Final Anticoagulation may affect t esting. Refer to [facility] Test Catalog for a list of effects. Observation Date Value Abnormality Reference (Units ) Status aPTT panel - Platelet poor plasma 10/23/2023 12:48:23 36 21-38 (seconds) Final Performing Location [facility] - [facility] [id number]
--- OUTSIDE RECORDS SUMMARY | 2023-12-06 21:45 | External Medical Summary | Summary of Care ---
Author Name Unknown Organization [facility] Address [address] [place] [address] Phone [phone] Care Team Providers Care Door To Door Salesman Name Role Phone Jeanna Bal PA-C Primary Care Provi aydin Reason for Visit * Evaluate & Treat - Unlimited Visits (Within 10 days (routine)) - Authorized Specialty Diagnoses / Procedures Referred By Kasey nagy Referred To Contact Nephrology Diagnoses Acute decompensated heart failure (HCC) Sai Nelson MD [address] [facility] [place] [address] Referral ID Status Reason Start Date Expiration Date Visits Requested Visits Authorized [id number] Authorized Specialty Services Required 09/01/2023 [id number] Encounter Details Date Type Department Care Team (Late st Contact Info) Description 10/05/2023 8:00 AM EST Telemedicine Nephrology, [place] [address], [place] [phone] Viktor Nicole MD [address], [place] [phone] No-show for appointment* Allergies Active Allergy Reactions Criticality Noted Date Comments Amoxicillin Hives Medium 03/22/2016 Gatifloxacin Nausea/vomiting Medium 03/22/2016 Latex Rash Medium 03/22/2016 Other reaction(s): johnson documented as of this encounter (statuses as of 10/11/2023) Medications Medication Sig Dispensed Refills Start Date [...] Active Preparation H 1-0.25-14.4-15 % External Cream (Zuncxx-CR-Vbabcla n-Petrolatum) Apply 1 Application topically to affected [...] evening. 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 03/22/2016 Essential hypertension with goal blood pressure less than 140/90 03/22/2016 Dyslipidemia, goal to be determined 03/22/2016 documented as of this encounter (statuses as of 10/11/2023) Resolved Problems Problem Noted Date Diagnosed Date Resolved Date Acute respiratory failure due to COVID-19 07/30/2023 08/01/2023 Pneumonia due to COVID-19 virus 07/30/2023 08/01/2023 NSTEMI (non-ST elevated myoc ardial infarction) 09/30/2021 10/05/2021 Pain in both lower extremities 03/22/2016 07/30/2023 documented as of this encounter (statuses as of 10/11/2023) Immunizations Name Administration Dates Next Due COVID-19 [...] Progress Notes * Viktor Nicole MD - 10/11/2023 4:08 PM EDT No show documented in this encounter Plan of Treatment Upcoming Encounters Date Type Department Care Team (Late st Contact Info) Description 10/12/2023 3:30 PM EDT Office Visit Cardiology, [facility] [address] [place] [id number] Jennifer Queen PA-C [address] [place] [phone] 10/16/2023 12:30 PM EDT PulmDiagnostic Pulmonary Function Lab, [address] [place] [address] Gjsh, Pulm Func Tech [address] [place] [address] 10/20/2023 8:00 AM EDT Telemedicine Nephrology, [place] [address] [place] [address] Viktor Nicole MD [address] [place] [address] 11/07/2023 8:30 AM EDT Telemedicine Pulmonary Medicine, [place] [address] [place] [address] Yocasta Proctor CRNP [address], [place] [phone] Scheduled Referrals Name Type Priority Associated Diagnoses Orde r Schedule NEPHROLOGY REFERRAL OP Referral Within 10 days (routine) Acute decompensated heart failure (HCC) Ordered: 09/01/2023 Health Maintenance Due Date Last Done Comments [...] as of this encounter Visit Diagnoses Diagnosis No-show for appointment- Primary documented in this encounter Advance Directives Latest [...] the patient have Health Care Power of Stock Control Supervisor? No Code Status History Code Status Date Activated Date Inactivated Comments Full Code 08/29/2023 8:14 PM 09/01/2023 6:46 PM This o rder reflects the patients wishes and were consensually agreed upon. Question Answer Comments Discussion of Advance Directives occurred with: Patient Does the patient have a Living Will? No Does the patient have Health Care Power of Stock Control Supervisor? No Full Code 08/19/2023 2:26 PM 08/25/2023 7:30 PM This order reflects the patients wishes and were consensually agreed upon. Question Answer Comments Discussion of Advance Directives occurred with: Patient Does the patient have a Living Will? No Does the patient have Health Care Power of Stock Control Supervisor? No Full Code 07/30/2023 11:50 AM 08/02/2023 5:34 PM This order reflects the patients wishes and were consensually agreed upon. Question Answer Comments Discussion of Advance Directives occurred with: Patient Full Code 10/01/2021 4:02 PM 10/05/2021 5:45 PM This or aydin reflects the patients wishes and were consensually agreed upon. Care Teams Door To Door Salesman Relationship Specialty Start Date End Date Jeanna Bal PA-C [address] [address] [place] [id number] PCP - General Physician Childcare Aide 06/13/17 documented as of this encounter
--- OUTSIDE RECORDS SUMMARY | 2023-12-06 21:45 | External Medical Summary ---
Author Name Unknown Address Unknown Organization K1G:[facility] - [address] [facility] [id number] Laboratory Report Ordering Provider Test Date Status JORDAN ROOT 10/09/2023 10:36:19 Final Observation Date Value Abnormality Reference (Units ) Status BUN 10/09/2023 10:36:19 35 Above high normal 6-20 (mg/dL) Final Creatinine 10/09/2023 10:36:19 1.2 Above high normal 0.5-1.0 (mg/dL) Final Glomerular filtration rate/1.73 sq M.predicted [Volume Rate/Area] in Serum, Plasma or Blood by Creatinine-based formula (CKD-EPI) 10/09/2023 10:36:19 44 Below low normal >=60 (mL/min) Final eGFR is calculated based on the CKD-EPI 2020 equation SODIUM 10/09/2023 10:36:19 132 Below low normal 135 -146 (mmol/L) Final Potassium 10/09/2023 10:36:19 3.5 3.5-5.1 (m mol/L) Final Cl 10/09/2023 10:36:19 95 Below low normal 98- 107 (mmol/L) Final CO2 10/09/2023 10:36:19 26 22-32 (mmo l/L) Final Anion gap 10/09/2023 10:36:19 11 7-15 (mmol /L) Final Glucose 10/09/2023 10:36:19 127 Above high normal 70 -120 (mg/dL) Final Albumin 10/09/2023 10:36:19 3.2 Below low normal 3.8 -5.0 (g/dL) Final AST (Aspartate aminotransferase) 10/09/2023 10:36:19 35 10-35 (U/L) Fin al Alk Phos 10/09/2023 10:36:19 101 35-130 (U/ L) Final Bilirubin, Total 10/09/2023 10:36:19 1.4 Above high no rmal <=1.2 (mg/dL) Final Calcium 10/09/2023 10:36:19 9.2 8.4-10.2 ( mg/dL) Final Protein 10/09/2023 10:36:19 6.8 6.0-8.3 (g /dL) Final ALT (Alanine aminotransferase) 10/09/2023 10:36:19 21 10-35 (U/L) Deo mohan Performing Location [facility] - [facility] [address]
--- OUTSIDE RECORDS SUMMARY | 2023-12-06 21:45 | External Medical Summary | Summary of Care ---
Author Name Unknown Organization [facility] Address [address] [place] [address] Phone [phone] Care Team Providers Care Economic Development Director Name Role Phone Jeanna Bal PA-C Primary Care Provi aydin Reason for Visit * Reason Comments Rash * Auth/Cert Specialty Diagnoses / Procedures Referred By Kasey t Referred To Contact [facility] [address] [place] [address] Phone: [phone] Emergency Medicine [facility] [address] [place] [address] Referral ID Status Reason Start Date Expiration Date Visits Re quested Visits Authorized [id number] Encounter Details Date Type Department Care Team (Late st Contact Info) Description 10/09/2023 9:54 AM EDT - 10/09/2023 11:44 AM EDT Emergency [facility] [address] Emergency Department ([facility]) [address] [place] [address] Lisa Byrd, [address] [place] [address] Soha infection (Primary Dx); SOB (shortness of breath); Pneumonia of both lungs due to infectious organism, unspecified part of lung Discharge Disposition: Home - Self Care Allergies Active Allergy Reactions Criticality Noted Date Comments Amoxicillin Hives Medium 03/22/2016 Gatifloxacin Nausea/vomiting Medium 03/22/2016 Latex Rash Medium 03/22/2016 Other reaction(s): johnson documented as of this encounter (statuses as of 10/09/2023) Medications Medication Sig Dispensed Refills Start Date [...] Active Preparation H 1-0.25-14.4-15 % External Cream (Yilzww-DT-Tiregtr n-Petrolatum) Apply 1 Application topically to affected [...] as of this encounter (statuses as of 10/09/2023) Active Problems Problem Noted Date Diagnosed Date [...] 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 Coronary artery disease invo lving nondalton coronary artery of nondalton heart without angina pectoris 03/22/2016 Essential hypertension with goal blood pressure less than 140/90 03/22/2016 Dyslipidemia, goal to be determined 03/22/2016 documented as of this encounter (statuses as of 10/09/2023) Resolved Problems Problem Noted Date Diagnosed Date Resolved Date Acute respiratory failure due to COVID-19 07/30/2023 08/01/2023 Pneumonia due to COVID-19 virus 07/30/2023 08/01/2023 NSTEMI (non-ST elevated myoc ardial infarction) 09/30/2021 10/05/2021 Pain in both lower extremities 03/22/2016 07/30/2023 documented as of this encounter (statuses as of 10/09/2023) Immunizations Name Administration Dates Next Due COVID-19 [...] Reading Time Taken Comments Blood Pressure 107/80 10/09/2023 11:00 AM EDT Pulse 82 10/09/2023 11:00 AM EDT Temperature 36.6 C (97.9 F) 10/09/2023 9:56 AM ED T Respiratory Rate 18 10/09/2023 11:00 AM EDT Oxygen Saturation 100% 10/09/2023 11:00 AM EDT Inhaled Oxygen Concentration - - Weight 85.3 kg (188 lb) 10/09/2023 9:56 AM EDT Height - - Body Mass Index 35.54 10/03/2023 8:32 PM EST documented in this [...] this encounter Discharge Instructions * Discharge Instructions* Lisa Byrd DO - 10/09/2023 11:35 AM EDT Please return if you have any questions, concerns, or your symptoms worsen or change. documented in this encounter ED Notes * Lisa Byrd DO - 10/09/2023 11:44 AM EDT HISTORY OF PRESENT ILLNESS Maria Luisa Recinos is a 87 year old female who presents to the ED for evaluation of Rash. The patient was seen at 10/09/23 1002. Patient is here with a rash in her groin. Patient has recently been admitted. The daughter states that she noticed the rash over the last few days. It has been getting worse.She also states that the patient still seemed short of breath. The patient was recently admitted for congestive heart failure. They state her weight has remained the same but her breathing seems to have worsened. She does have a cough. No fever or chills. No nausea or vomiting. The patient has no other complaints. Review of Systems Constitutional: Negative for activity change, chills and fever. HENT: Negative for ear pain and sore throat. Eyes: Negative for pain and redness. Respiratory: Positive for cough and shortness of breath. Negative for wheezing. Cardiovascular: Negative for chest pain and leg swelling. Gastrointestinal: Negative for abdominal pain, nausea and vomiting. Genitourinary: Negative for dysuria and hematuria. Musculoskeletal: Negative for back pain and neck pain. Skin: Positive for rash. Negative for wound. Neurological: Negative for syncope and headaches. Psychiatric/Behavioral: Negative for self-injury and suicidal ideas. The patient's allergies, past history, and medications were reviewed. PHYSICAL EXAM Initial Vitals (see all): BP 102/66 | Pulse 80 | Resp 18 | Temp 97.9 | O2 100 %, Nasal Cannula | Weight 85.28 kg | Height 154.9 cm | BMI 35.54 kg/m2 Initial Pain Assessment (see all): 0 (no pain)/10 ([facility] Adult Scale 0-10) Physical Exam Vitals and nursing note reviewed. Constitutional: Appearance: Normal appearance. HENT: Head: Normocephalic and atraumatic. Nose: Nose normal. Mouth/Throat: Mouth: Mucous membranes are moist. Eyes: Extraocular Movements: Extraocular movements intact. Cardiovascular: Rate and Rhythm: Normal rate and regular rhythm. Pulses: Normal pulses. Heart sounds: Normal heart sounds. No murmur heard. Pulmonary: Effort: Pulmonary effort is normal. Breath sounds: Normal breath sounds. No wheezing or rhonchi. Abdominal: General: Abdomen is flat. Bowel sounds are normal. Palpations: Abdomen is soft. Tenderness: There is no abdominal tenderness. There is no guarding or rebound. Musculoskeletal: General: Normal range of motion. Cervical back: Normal range of motion and neck supple. Skin: General: Skin is warm and dry. Comments: Patient has a candidal rash on bilateral groin areas. Neurological: General: No focal deficit present. Mental Status: She is alert and oriented to person, place, and time. Psychiatric: Mood and Affect: Mood normal. Behavior: Behavior normal. PROCEDURES AND TREATMENTS ED Orders | ED Results MEDICAL DECISION MAKING Nursing notes and vital signs were reviewed. Patient was seen and examined. Patient does appear to have a candidal infection. I did repeat the patient's blood work from recently. The patient did have an improvement in her BNP and also her creatinine from her previous admission. A chest x-ray was obtained on the patient. I personally viewed and interpreted the chest x-ray. My interpretation of the chest x-ray that there is worsening interstitial edema which may be secondary to pneumonia. Due to the worsening of the chest x-ray and the patient's admission that she has worsening shortness of breath and cough I do suspect that the patient most likely has a pneumonia. I am going to start her on an antibiotic along with starting Diflucan and a topical powder to help with her candidal infection. The patient's daughter was told to return ifher symptoms worsen or change. She expressed understanding and will follow up as necessary. Amount and/or Complexity of Data Reviewed Labs: ordered. Radiology: ordered. ECG/medicine tests: ordered. Risk OTC drugs. Prescription drug management. Clinical Impressions SOB (shortness of breath) Soha infection Pneumonia of both lungs due to infectious organism, unspecified part of lung Disposition Discharged. The patient's condition at disposition was: stable. Discharge Medications Disp Refills Start End Miconazole Nitrate 2 % External Powder (Remedy) 85 g 0 10/09/2023 -- Sig - Route: Apply topically to affected area 2 times a day. Apply to groin - Topical Class: ePrescribing Renewals Renewal requests to authorizing provider (Lisa Byrd DO) <b>prohibited</b> Doxycycline Hyclate 100 MG Oral Capsule 20 Capsule 0 10/09/2023 10/19/2023 Sig - Route: Take 1 Capsule by mouth in the morning and 1 Capsule before bedtime. Do all this for 10 days. - Oral Class: ePrescribing Renewals Renewal requests to authorizing provider (Lisa Byrd DO) <b>prohibited</b> Lisa Byrd * Ting Hennessy RN - 10/09/2023 10:01 AM EDT Patient has a rash in groin area. Oozing and it johnson. documented in this encounter Miscellaneous Notes * Pt Handout (on AVS) - Lisa Byrd DO - 10/09/2023 11:35 AM EDT Images from the original note were not included. [id number] Pneumonia (Adult) Pneumonia is an infection inside the lungs. It's in the small air sacs (alveoli). It may be caused by a virus, fungus, or bacteria. Pneumonia caused by bacteria is treated with an antibiotic medicine. Severe cases may need to be treated in the hospital. Milder cases can be treated at home. Symptomsmay include fever, chills, and cough (dry or with phlegm). You may have a headache, muscle weakness, trouble breathing, and pain. These symptoms often get worse in the first 2 days. But they often start to get better in the first week of treatment. Home care Follow these guidelines when caring for yourself at home: Get plenty of rest. Take naps as needed. Don?t let yourself get too tired when you go back to your activities. Go back to activities as directed by your healthcare provider. Stop smoking. This is the most important step you can take to help treat pneumonia. If you need help to stop, talk with your healthcare provider. Stay away from secondhand smoke. Don?t let anyone smoke in your home or your car. Wash your hands often with soap and clean, running water. Rub for at least 20 seconds. Make sureto clean under your nails and between your fingers. When you can't wash your hands, use hand fourdrinier wire weaver with at least 60% alcohol. Cover your mouth and nose when coughing or sneezing. Use a tissue or the inside of your elbow. Don't cough or sneeze into your hands. Throw used tissues away. Be sure to wash your hands after coughing, sneezing, or blowing your nose. Limit close contact with other people while you are sick. Stay away from crowds during cold and flu season. Consider wearing a mask in crowds. Use pain medicine as directed. You may use acetaminophen or ibuprofen to control fever or pain, unless another medicine was prescribed. If you have chronic liver or kidney disease, talk with your healthcare provider before using these medicines. Also talk with your provider if you?ve had a stomach ulcer or bleeding in your stomach or intestines. Don?t give aspirin to a child younger than age 19 unless directed by the provider. Taking aspirin can put a child at risk for Jacklyn syndrome. This stefania rare but very serious disorder. It most often affects the brain and the liver. Drink plenty of water and other fluids. This can make mucus thinner and easier to cough up. Ask your healthcare provider how much water you should drink. For many people, 6 to 8 glasses (8 ounces each) a day is a good goal. Other fluids include sport drinks, sodas without caffeine, juices, tea, or soup. If you also have heart or kidney disease, check with your provider before you drink extra fluids. Eat as you are able. You may not feel hungry, so a light diet is fine. Follow the treatment park advised by your healthcare provider. Take medicines as instructed by your healthcare provider. If you were given an antibiotic medicine, take it until it's all gone, even if you are feeling better after a few days. Try to stay away from air pollution. If you live in an area with air pollution, track the Air Quality Index (AQI) reports. Plan your outdoor activities when air quality is OK. Follow-up care Follow up with your healthcare provider in the next 2 to 3 days, or as advised. Following up with your provider as directed is important to make sure you are getting better. You may need more tests if you aren't getting better. Take steps to prevent future infections. Ask your healthcare provider what vaccines are right for you and when to get them. This may include the influenza (flu), COVID-19, and pneumococcal vaccines. Call 911 Call 911 if any of these occur: Unable to speak or swallow Lips or skin looks blue, purple, or nunn Feeling dizzy Fainting Unable to be awake or aware Feeling of doom Trouble breathing or wheezing Shortness of breath gets worse or doesn't get better with treatment Rapid breathing (more than 25 breaths per minute) Coughing up blood Chest pain gets worse with breathing or doesn't get better with treatment When to get medical advice Call your healthcare provider right away if any of these occur: You don?t get better in the first 2 to 3 days of treatment Fever of 100.4F (38C) or higher, or as directed by your healthcare provider Shaking chills Cough with phlegm that doesn't get better, or get worse Shortness of breath with activities Weakness, dizziness, or fainting that gets worse Thirst or dry mouth that gets worse Sinus pain, headache, or a stiff neck Chest pain with breathing or coughing Symptoms that get worse or don't get better Last Reviewed Date: 06/30/202119992123-7123 [employer]. All rights reserved. This information is not intended as a substitute for professional medical care. Always follow your healthcare professional's instructions. * Pt Handout (on AVS) - Lisa Byrd DO - 10/09/2023 11:35 AM EDT [id number] Soha Skin Infection (Adult) Soha is a type of yeast. It grows naturally on the skin and in the mouth. If it grows out of control, it can cause an infection. Soha can cause infections in the genital area, skin folds, in the mouth, and under the breasts. Anyone can get this infection. It's more common in a person with a weak immune system, such as from diabetes, HIV, or cancer. It?s also more common in people who've been on antibiotic therapy. Or people who are overweight or who have incontinence. Other things that can put you at risk are wearing tight-fitting clothing or using splints, braces, or artificial limbs. Doing activities with lots of [id number] contact is also a risk factor. Soha causes the skin to become bright red and inflamed. The border of the infected part of the skin is often raised. The infection causes pain and itching. Sometimes the skin peels and bleeds. In the mouth, soha is called thrush, and may cause white thickened areas. A Soha rash is most often treated with an antifungal cream, gel, or powder. The rash will clear a few days after starting the medicine. Infections that don?t go away may need a prescription medicine. In rare cases, a bacterial infection can also occur. Home care Your healthcare provider may advise using an antifungal cream, powder, or gel for the rash. They may also prescribe a medicine for the itch. Follow all instructions for using these medicines. General care Keep your skin clean by washing the area twice a day. Use the medicine as directed until your rash is gone. Once the skin has healed, keep it dry to prevent another infection. If you are overweight, talk with your healthcare provider about a plan to lose extra weight. Don't wear tight-fitting clothes. Follow-up care Follow up with your healthcare provider, or as advised. Your rash will clear up in 7 to 14 days. Call your provider if the rash isn't gone after 14 days. When to call your healthcare provider Call your healthcare provider right away if any of these occur: Pain or redness that gets worse or spreads Fluid coming from the skin Yellow crusts on the skin Fever of 100.4F (38C) or higher, or as advised by your provider Last Reviewed Date: 12/29/202119996500-1259 [employer]. All rights reserved. This information is not intended as a substitute for professional medical care. Always follow your healthcare professional's instructions. documented in this encounter Plan of Treatment Upcoming Encounters Date Type Department Care Team (Late st Contact Info) Description 10/12/2023 3:30 PM EDT Office Visit Cardiology, [facility] [address] [id number] Jennifer Queen PA-C [address] [place] [address] 10/16/2023 12:30 PM EDT PulmDiagnostic Pulmonary Function Lab, [facility] [address] [place] [address] Gjsh, Pulm [employer] [address], [place] [id number] 10/20/2023 8:00 AM EDT Telemedicine Nephrology, [place] [address], [place] [id number] Viktor Nicole MD [address] [place] [address] 11/07/2023 8:30 AM EDT Telemedicine Pulmonary Medicine, [place] [address] [place] [address] Yocasta Proctor CRNP [address] [place] [address] Scheduled Orders Name Type Priority Associated Diagnoses Orde r Schedule EKG EKG STAT SOB (shortness of breath) Perform Now for 1 Occurrences starting 10/09/2023 until 10/09/2023 Health Maintenance Due Date Last Done Comments [...] Procedure Name Priority Date/Time Associated Diagnosis Comments XR CHEST 1 VIEW STAT 10/09/2023 10:51 AM EDT DIFFERENTIAL, AUTOMATED STAT 10/09/2023 10:36 AM EDT TROPONIN T, HIGH SENSITIVITY STAT 10/09/2023 10:36 AM EDT BNP (NT-PROBNP) STAT 10/09/2023 10:36 AM EDT COMPREHENSIVE METABOLIC PANEL STAT 10/09/2023 10:36 AM EDT CBC STAT 10/09/2023 10:36 AM EDT CBC STAT 10/09/2023 10:36 AM EDT documented in this encounter Results * XR CHEST 1 VIEW (10/09/2023 10:51 AM EDT) Anatomical Region Laterality Modality Chest Computed Radiogr aphy 10/09/2023 10:4 9 AM EDT Impressions 10/09/2023 11:20 AM EDT IMPRESSION: There are extensive multifocal opacities throughout the lungs, consistent with chronic interstitial lung disease, with superimposed acute process not excluded. THIS DOCUMENT HAS BEEN ELECTRONICALLY SIGNED BY DO Louis RYAN 10/09/2023 11:20 AM EDT PROCEDURE INFORMATION: Exam: XR Chest Exam date and time: 10/09/2023 10:49 AM Age: 87 years old Clinical indication: Patient HX: Shortness of breath started yesterday and rash in groin area; Additional info: SOB TECHNIQUE: Imaging protocol: Radiologic exam of the chest. Views: 1 view. COMPARISON: CT PULMONARY EMBOLUS W CONTRAST 10/03/2023 7:06 PM FINDINGS: Tubes, catheters and devices: None. Lungs: Extensive multifocal opacities are visualized, consistent with chronic interstitial lung disease. Acute on chronic process is difficult to exclude. Pleural spaces: No significant pleural effusion or pneumothorax. Heart/Mediastinum: Mild cardiomegaly. Calcification is seen within the thoracic aorta. Bones/joints: Degenerative changes are seen in the spine. Procedure Note Khushbu Osborn DO - 10/09/2023 PROCEDURE INFORMATION: Exam: XR Chest Exam date and time: 10/09/2023 10:49 AM Age: 87 years old Clinical indication: Patient HX: Shortness of breath started yesterday andrash in groin area; Additional info: SOB TECHNIQUE: Imaging protocol: Radiologic exam of the chest. Views: 1 view. COMPARISON: CT PULMONARY EMBOLUS W CONTRAST 10/03/2023 7:06 PM FINDINGS: Tubes, catheters and devices: None. Lungs: Extensive multifocal opacities are visualized, consistent withchronic interstitial lung disease. Acute on chronic process is difficult toexclude. Pleural spaces: No significant pleural effusion or pneumothorax. Heart/Mediastinum: Mild cardiomegaly. Calcification is seen within the thoracic aorta. Bones/joints: Degenerative changes are seen in the spine. IMPRESSION IMPRESSION: There are extensive multifocal opacities throughout the lungs, consistentwith chronic interstitial lung disease, with superimposed acute process notexcluded. THIS DOCUMENT HAS BEEN ELECTRONICALLY SIGNED BY KHUSHBU OSBORN DO Lisa Byrd DO RADIOLOGY (RAD GEN ERAL) * (ABNORMAL) DIFFERENTIAL, AUTOMATED (10/09/2023 10:36 AM EDT) WBC 12.49(H) 4.00 - 10.80 K/uL 10/09/2023 10:42 AM EDT LABORATORY [facility] Neutrophils % 82.8(H) 40.0 - 75.0 % 10/09/2023 10:42 AM EDT LAB[facility]ATORY [facility] Lymphocytes % 6.8(L) 18.0 - 42.0 % 10/09/2023 10:42 AM EDT LAB[facility] Monocytes % 7.2 1.0 - 11.0 % 10/09/2023 10:42 AM EDT LABORATORY [facility] Eosinophils % 3.0 0.0 - 6.0 % 10/09/2023 10:42 AM EDT LABORATORY [facility] Basophils % 0.2 0.0 - 2.0 % 10/09/2023 10:42 AM EDT LABORATORY [facility] Absolute Neutrophils 10.34(H) 1.80 - 7.70 K/uL 10/09/2023 10:42 AM EDT LABORATORY [facility] Absolute Lymphocytes 0.85(L) 1.00 - 4.80 K/ul 10/09/2023 10:42 AM EDT LABORATORY [facility] Absolute Monocytes 0.90 0.00 - 1.10 K/uL 10/09/2023 10:42 AM EDT LABORATORY [facility] Absolute Eosinophils 0.37 0.00 - 0.70 K/uL 10/09/2023 10:42 AM EDT LABORATORY [facility] Absolute Basophils 0.03 0.00 - 0.20 K/uL 10/09/2023 10:42 AM EDT LABORATORY [facility] Blood Venous blood specimen / Unknown Venipuncture / Unknown 10/09/2023 10:36 AM EDT 10/09/2023 10:39 AM EDT Lisa Bydr DO LAB BLOOD ORDERABL ES LABORATORY [place] [id number] [place] [address] * (ABNORMAL) CBC (10/09/2023 10:36 AM EDT) WBC 12.49(H) 4.00 - 10.80 K/uL 10/09/2023 10:42 AM EDT LABORATORY [facility] RBC 3.83 3.85 - 5.15 M/uL 10/09/2023 10:42 AM EDT LABORATORY [facility] HGB 11.2(L) 12.0 - 15.3 g/dL 10/09/2023 10:42 AM EDT LABORATORY [facility] HCT 35.3(L) 36.0 - 45.2 % 10/09/2023 10:42 AM EDT LABORATORY [facility] MCV 92.2 81.5 - 97.5 fL 10/09/2023 10:42 AM EDT LABORATORY [facility] MCH 29.2 27.0 - 34.0 pg 10/09/2023 10:42 AM EDT LABORATORY [facility] MCHC 31.7 32.0 - 36.0 g/dL 10/09/2023 10:42 AM EDT LABORATORY [facility] RDW 16.8 11.5 - 15.5 % 10/09/2023 10:42 AM EDT LABORATORY [facility] PLT 269 140 - 400 K/uL 10/09/2023 10:42 AM EDT LABORATORY [facility] MPV 9.2 6.6 - 11.1 fL 10/09/2023 10:42 AM EDT LABORATORY [facility] Blood Venous blood specimen / Unknown Venipuncture / Unknown 10/09/2023 10:36 AM EDT 10/09/2023 10:39 AM EDT Lisa Byrd LAB BLOOD ORDERABL ES LABORATORY [address] [address] * (ABNORMAL) TROPONIN T, HIGH SENSITIVITY (10/09/2023 10:36 AM EDT) Pathologist [facility] Troponin T, High Sensitivity 35(H) <=14 ng/L 10/09/2023 11:23 AM EDT LABORATORY [facility] Blood Venous blood specimen / Unknown Venipuncture / Unknown 10/09/2023 10:36 AM EDT 10/09/2023 10:39 AM EDT Lisa Briseno Byrd DO LAB BLOOD ORDERABL ES LABORATORY [address] [address] * (ABNORMAL) BNP, NT-PRO (10/09/2023 10:36 AM EDT) BNP, NT-Pro 10,799(H) <300 pg/mL 10/09/2023 11:13 AM EDT LABORATORY [facility] Blood Venous blood specimen / Unknown Venipuncture / Unknown 10/09/2023 10:36 AM EDT 10/09/2023 10:39 AM EDT Narrative LABORATORY [facility] - 10/09/2023 11:13 AM EDT Exclude Heart Failure: <300 pg/mL Diagnose Heart Failure: Age <50 yr: >450 pg/mL 50-75 yr: >900 pg/mL >75 yr: >1800 pg/mL GFR is 30-59 mL/min: >1200 pg/mL or Age-adjusted values GFR <30 mL/min: do not use, not reliable Prognostic threshold: 1000 pg/mL Lisa Byrd DO LAB BLOOD ORDERABL ES LABORATORY [address] [address] * (ABNORMAL) COMPREHENSIVE METABOLIC PANEL (10/09/2023 10:36 AM EDT) BUN 35(H) 6 - 20 mg/dL 10/09/2023 11:05 AM EDT LABORATORY [facility] Creatinine 1.2(H) 0.5 - 1.0 mg/dL 10/09/2023 11:05 AM EDT LABORATORY [facility] Estimated Glomerular Filtration Rate 44(L) >=60 mL/min 10/09/2023 11:05 AM EDT LABORATORY [facility] Comment:eGFR is calculated b ased on the CKD-EPI 2020 equation Sodium 132(L) 135 - 146 mmol/L 10/09/2023 11:05 AM EDT LABORATORY [facility] Potassium 3.5 3.5 - 5.1 mmol/L 10/09/2023 11:05 AM EDT LABORATORY [facility] Chloride 95(L) 98 - 107 mmol/L 10/09/2023 11:05 AM EDT LABORATORY [facility] CO2 26 22 - 32 mmol/L 10/09/2023 11:05 AM EDT LAB[facility]ATORY [facility] Anion Gap 11 7 - 15 mmol/L 10/09/2023 11:05 AM EDT LAB[facility]ATORY [facility] Glucose 127(H) 70 - 120 mg/dL 10/09/2023 11:05 AM EDT LABORATORY [facility] Albumin 3.2(L) 3.8 - 5.0 g/dL 10/09/2023 11:05 AM EDT LABORATORY [facility] AST 35 10 - 35 U/L 10/09/2023 11:05 AM EDT LABORATORY [facility] Alkaline Phosphatase 101 35 - 130 U/L 10/09/2023 11:05 AM EDT LABORATORY [facility] Bilirubin, Total 1.4(H) <=1.2 mg/dL 10/09/2023 11:05 AM EDT LAB[facility]ATORY [facility] Calcium 9.2 8.4 - 10.2 mg/dL 10/09/2023 11:05 AM EDT LABORATORY [facility] Protein 6.8 6.0 - 8.3 g/dL 10/09/2023 11:05 AM EDT LABORATORY [facility] ALT 21 10 - 35 U/L 10/09/2023 11:05 AM EDT LABORATORY [facility] Blood Venous blood specimen / Unknown Venipuncture / Unknown 10/09/2023 10:36 AM EDT 10/09/2023 10:39 AM EDT Lisa Byrd DO LAB BLOOD ORDERABL ES LABORATORY [address] [id number] [place] [address] documented in this encounter Visit Diagnoses Diagnosis Soha infection- Primary Candidiasis of unspecified site SOB (shortness of breath) Shortness of breath Pneumonia of both lungs due to infectious organism, unspecified part of lung documented in this encounter Administered Medications Inactive Administered Medications - up to 3 most recent administrations Medication Order MAR Action Action Date Dose Rate Site Fluconazole (Diflucan) tab 150 mg 150 mg, Oral, ONCE, On Mon10/09/23 at 1100, For 1 dose Given 10/09/2023 10:38 AM EDT 150 mg Miconazole Nitrate (Remedy) powder Topical, ONCE, On Mon10/09/23 at 1115, For 1 dose, Apply to groin Given 10/09/2023 10:41 AM EDT documented in this encounter Active and Recently Administered Medications Due to Daylight Saving Time, this section may contain times in both EST and EDT. Scheduled Medication Order 10/07/2023 10/08/2023 10/09/2023 Fluconazole (Diflucan) tab 150 mg (COMPLETED) 150 mg, Oral, ONCE, On Mon10/09/23 at 1100, For 1 dose 1038 (Given - Provid er: Dione Smith RN) Miconazole Nitrate (Remedy) powder (COMPLETED) Topical, ONCE, On Mon10/09/23 at 1115, For 1 dose, Apply to groin 1041 (Given - Provid er: Dione Smith RN) documented in this encounter Advance Directives [...] the patient have Health Care Power of Rate Clerk Passenger? No Code Status History Code Status Date Activated Date Inactivated Comments Full Code 08/29/2023 8:14 PM 09/01/2023 6:46 PM This o rder reflects the patients wishes and were consensually agreed upon. Question Answer Comments Discussion of Advance Directives occurred with: Patient Does the patient have a Living Will? No Does the patient have Health Care Power of Rate Clerk Passenger? No Full Code 08/19/2023 2:26 PM 08/25/2023 7:30 PM This order reflects the patients wishes and were consensually agreed upon. Question Answer Comments Discussion of Advance Directives occurred with: Patient Does the patient have a Living Will? No Does the patient have Health Care Power of Rate Clerk Passenger? No Full Code 07/30/2023 11:50 AM 08/02/2023 5:34 PM This order reflects the patients wishes and were consensually agreed upon. Question Answer Comments Discussion of Advance Directives occurred with: Patient Full Code 10/01/2021 4:02 PM 10/05/2021 5:45 PM This or aydin reflects the patients wishes and were consensually agreed upon. Care Teams Economic Development Director Relationship Specialty Start Date End Date Jeanna Bal PA-C 1 [facility] [address] [place] [id number] PCP - General Physician Real Estate Operations Manager 06/13/17 documented as of this encounter"
--- OUTSIDE RECORDS SUMMARY | 2023-12-06 21:45 | External Medical Summary | Summary of Care ---
Author Name Unknown Organization [facility] Address [address] [place] [address] Phone [phone] Care Team Providers Care Sales And Retail Management Recruiter Name Role Phone Jeanna Bal PA-C Primary Care Provi aydin Reason for Visit * Reason Onset Date Comments Sick 10/10/2023 Encounter Details Date Type Department Care Team (Late st Contact Info) Description 10/10/2023 Telephone Pulmonary Medicine, [place] [address] [place] [address] Yocasta Proctor CRNP [address] [place] [address] Sick Allergies Active Allergy Reactions Criticality Noted Date Comments Amoxicillin Hives Medium 03/22/2016 Gatifloxacin Nausea/vomiting Medium 03/22/2016 Latex Rash Medium 03/22/2016 Other reaction(s): johnson documented as of this encounter (statuses as of 10/10/2023) Medications Medication Sig Dispensed Refills Start Date [...] Active Preparation H 1-0.25-14.4-15 % External Cream (Qlgjwm-PW-Uxltnuo n-Petrolatum) Apply 1 Application topically to affected [...] as of this encounter (statuses as of 10/10/2023) Active Problems Problem Noted Date Diagnosed Date [...] 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 Coronary artery disease invo lving [place] coronary artery of [place] heart without angina pectoris 03/22/2016 Essential hypertension with goal blood pressure less than 140/90 03/22/2016 Dyslipidemia, goal to be determined 03/22/2016 documented as of this encounter (statuses as of 10/10/2023) Resolved Problems Problem Noted Date Diagnosed Date Resolved Date Acute respiratory failure due to COVID-19 07/30/2023 08/01/2023 Pneumonia due to COVID-19 virus 07/30/2023 08/01/2023 NSTEMI (non-ST elevated myoc ardial infarction) 09/30/2021 10/05/2021 Pain in both lower extremities 03/22/2016 07/30/2023 documented as of this encounter (statuses as of 10/10/2023) Immunizations Name Administration Dates Next Due COVID-19 [...] encounter Miscellaneous Notes * Telephone Encounter - Yocasta Proctor CRNP - 10/10/2023 12:16 PM EDT Returned call to daughter, she reports she does have some improvement, received a dose of Diflucan in the ED yesterday, She is using Nystatin. Discussed, all inhalers comparable to Breo have risk of Thrush. Enocuraged rinsing of mouth after use of inhaler and also can use alcohol based mouth wash to help rinse the mucous membranes after Breo inhalation. Patient's daughter verbalized understanding. ABHISHEK Arnold * Telephone Encounter - Anai Bobo OSA - 10/10/2023 11:03 AM EDT Daughter Betty called. Pt has Thrush and a yeast infection from the Breo inhaler. Pt also has acough. Betty would like someone to call her at [phone] documented in this encounter Plan of Treatment Upcoming Encounters Date Type Department Care Team (Late st Contact Info) Description 10/12/2023 3:30 PM EDT Office Visit Cardiology, [facility] [address] [place] [address] Jennifer Queen PA-C [address] [place] [address] 10/16/2023 12:30 PM EDT PulmDiagnostic Pulmonary Function Lab, [facility] [address] [place] [address] Gjsh, Pulm Fun Tech [address] [place], [place] [id number] 10/20/2023 8:00 AM EDT Telemedicine Nephrology, [place] [address] [place] [address] Viktor Nicole MD [address] [place] [address] 11/07/2023 8:30 AM EDT Telemedicine Pulmonary Medicine, [place] [address] [place] [address] Yocasta Proctor CRNP [address] [place] [address] Health Maintenance Due Date Last Done Comments [...] the patient have Health Care Power of Regional Sales Coordinator? No Code Status History Code Status Date Activated Date Inactivated Comments Full Code 08/29/2023 8:14 PM 09/01/2023 6:46 PM This o rder reflects the patients wishes and were consensually agreed upon. Question Answer Comments Discussion of Advance Directives occurred with: Patient Does the patient have a Living Will? No Does the patient have Health Care Power of Regional Sales Coordinator? No Full Code 08/19/2023 2:26 PM 08/25/2023 7:30 PM This order reflects the patients wishes and were consensually agreed upon. Question Answer Comments Discussion of Advance Directives occurred with: Patient Does the patient have a Living Will? No Does the patient have Health Care Power of Regional Sales Coordinator? No Full Code 07/30/2023 11:50 AM 08/02/2023 5:34 PM Thi s order reflects the patients wishes and were consensually agreed upon. Question Answer Comments Discussion of Advance Directives occurred with: Patient Full Code 10/01/2021 4:02 PM 10/05/2021 5:45 PM This or aydin reflects the patients wishes and were consensually agreed upon. Care Teams Sales And Retail Management Recruiter Relationship Specialty Start Date End Date Jeanna Bal PA-C 1 [facility] [address] [place] [id number] PCP - General Physician Rotor Casting Machine Setup Operator 06/13/17 documented as of this encounter
--- OUTSIDE RECORDS SUMMARY | 2023-12-06 21:45 | External Medical Summary | Summary of Care ---
Author Name Unknown Organization [facility] Address [address] [place] [address] Phone [phone] Care Team Providers Care Sports Book Server Name Role Phone Jeanna Bal PA-C Primary Care Provi aydin Reason for Visit * Reason Onset Date Comments Sick 10/10/2023 Encounter Details Date Type Department Care Team (Late st Contact Info) Description 10/10/2023 Telephone Pulmonary Medicine, [place] [address] [place] [address] Yocasta Proctor CRNP [address] [place] [address] Sick Allergies Active Allergy Reactions [...] Active Preparation H 1-0.25-14.4-15 % External Cream (Byzfoi-VY-Vdfpgpa n-Petrolatum) Apply 1 Application topically to affected [...] 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 Coronary artery disease invo lving [place] coronary artery of [place] heart without angina pectoris 03/22/2016 Essential hypertension [...] encounter Miscellaneous Notes * Telephone Encounter - Anai Bobo OSA - 10/10/2023 11:03 AM EDT Daughter Betty called. Pt has Thrush and a yeast infection from the Breo inhaler. Pt also has acough. Betty would like someone to call her at [phone] documented in this encounter Plan of Treatment Upcoming Encounters Date Type Department Care Team (Late st Contact Info) Description 10/12/2023 3:30 PM EDT Office Visit Cardiology, [facility] [address] [place] [address] Jennifer Queen PA-C [address] [place] [address] 10/16/2023 12:30 PM EDT PulmDiagnostic Pulmonary Function Lab, [place] [id number] [place] [address] Gjsh, Pulm Func Tech [address] [place] [address] 10/20/2023 8:00 AM EDT Telemedicine Nephrology, [place] [address] [place] [address] Viktor Nicole MD [address] [place] [address] 11/07/2023 8:30 AM EDT Telemedicine Pulmonary Medicine, [place] [address] [place] [address] Yocasta Proctor CRNP [address] [place], [place] [id number] Health Maintenance Due Date Last Done Comments [...] the patient have Health Care Power of Cullet Washer? No Code Status History Code Status Date Activated Date Inactivated Comments Full Code 08/29/2023 8:14 PM 09/01/2023 6:46 PM This o rder reflects the patients wishes and were consensually agreed upon. Question Answer Comments Discussion of Advance Directives occurred with: Patient Does the patient have a Living Will? No Does the patient have Health Care Power of Cullet Washer? No Full Code 08/19/2023 2:26 PM 08/25/2023 7:30 PM This order reflects the patients wishes and were consensually agreed upon. Question Answer Comments Discussion of Advance Directives occurred with: Patient Does the patient have a Living Will? No Does the patient have Health Care Power of Cullet Washer? No Full Code 07/30/2023 11:50 AM 08/02/2023 5:34 PM This order reflects the patients wishes and were consensually agreed upon. Question Answer Comments Discussion of Advance Directives occurred with: Patient Full Code 10/01/2021 4:02 PM 10/05/2021 5:45 PM This or aydin reflects the patients wishes and were consensually agreed upon. Care Teams Sports Book Server Relationship Specialty Start Date End Date Jeanna Bal PA-C [address] [place] [place] [address] [place] [id number] PCP - General Physician Psychologist Experimental 06/13/17 documented as of this encounter
--- OUTSIDE RECORDS SUMMARY | 2023-12-06 21:45 | External Medical Summary ---
Author Name UNSPECIFIED Address Unknown Organization [facility] FILENET DEVELOPER History of Encounters Reason for Assessment: Transferred to an inpatient facility - patient not discharged from agency Inpatient Facility where the patient been admitted: Hospital
--- OUTSIDE RECORDS SUMMARY | 2023-12-06 21:45 | External Medical Summary ---
Author Name Unknown Address Unknown Organization K1G:LABORATORY [facility] - [address] [place] [phone] Laboratory Report Ordering Provider Test Date Status JORDAN ROOT 10/09/2023 10:36:19 Final Observation Date Value Abnormality Reference (Units ) Status Troponin T 10/09/2023 10:36:19 35 Above high normal < =14 (ng/L) Final Performing Location LABORATORY [facility] - [address] [place] [id number]
--- OUTSIDE RECORDS SUMMARY | 2023-12-06 21:45 | External Medical Summary ---
Author Name Unknown Address Unknown Organization K1G:LABORATORY [facility] - [address] [place] [phone] Laboratory Report Ordering Provider Test Date Status JORDAN ROOT 10/09/2023 10:36:19 Final Observation Date Value Abnormality Reference (Units ) Status SYNC LEUKOCYTES IN BLOOD BY AUTOMATED COUNT 10/09/2023 10:36:19 12.49 Above high normal 4.00-10.80 (K/uL) Final Segs 10/09/2023 10:36:19 82.8 Above high normal 40.0-75.0 (%) Final Lymphs % 10/09/2023 10:36:19 6.8 Below low normal 18.0-42.0 (%) Final Monos 10/09/2023 10:36:19 7.2 1.0-11.0 (%) Final Eosinophils 10/09/2023 10:36:19 3.0 0.0-6.0 (%) Final Basos 10/09/2023 10:36:19 0.2 0.0-2.0 (%) Final Absolute Segs 10/09/2023 10:36:19 10.34 Above high normal 1.80-7.70 (K/uL) Final Lymphs, absolute 10/09/2023 10:36:19 0.85 Below low normal 1.00-4.80 (K/ul) Final Monos, Abs 10/09/2023 10:36:19 0.90 0.00-1.10 (K/uL) Final Eos, Abs 10/09/2023 10:36:19 0.37 0.00-0.70 (K/uL) Final Basos, Abs 10/09/2023 10:36:19 0.03 0.00-0.20 (K/uL) Final Performing Location LABORATORY [facility] - [address] [facility] [phone]
--- OUTSIDE RECORDS SUMMARY | 2023-12-06 21:45 | External Medical Summary ---
Author Name Unknown Address Unknown Organization K1G[facility] - [address] [place] [phone] Laboratory Report Ordering Provider Test Date Status JORDAN ROOT 10/09/2023 10:36:19 Final Observation Date Value Abnormality Reference (Units ) Status WBC, Total 10/09/2023 10:36:19 12.49 Above high normal 4 .00-10.80 (K/uL) Final RBC 10/09/2023 10:36:19 3.83 3.85-5.15 (M/uL) Final Hemoglobin 10/09/2023 10:36:19 11.2 Below low normal 12 .0-15.3 (g/dL) Final HCT 10/09/2023 10:36:19 35.3 Below low normal 36. 0-45.2 (%) Final MCV 10/09/2023 10:36:19 92.2 81.5-97.5 (fL) Final MCH 10/09/2023 10:36:19 29.2 27.0-34.0 (pg) Final MCHC 10/09/2023 10:36:19 31.7 32.0-36.0 (g/dL) Final RDW 10/09/2023 10:36:19 16.8 11.5-15.5 (%) Final Platelets 10/09/2023 10:36:19 269 140-400 (K /uL) Final MPV 10/09/2023 10:36:19 9.2 6.6-11.1 ( fL) Final Performing Location [facility] - [address] [place] [phone]
--- OUTSIDE RECORDS SUMMARY | 2023-12-06 21:45 | External Medical Summary | Summary of Care ---
Author Name Unknown Organization [facility] Address [address] [facility] [address] Phone [phone] Care Team Providers Care Application Development Liaison Name Role Phone Jeanna Bal PA-C Primary Care Provi aydin Reason for Visit * Reason Onset Date Comments Information 10/11/2023 Encounter Details Date Type Department Care Team (Late st Contact Info) Description 10/11/2023 Telephone Cardiology, [facility] [address] [place] [phone] Jennifer Queen PA-C [address] [place] [address] Information Allergies Active Allergy Reactions Criticality Noted Date [...] Active Preparation H 1-0.25-14.4-15 % External Cream (Siukmi-UB-Cvcuvgg n-Petrolatum) Apply 1 Application topically to affected [...] 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 Coronary artery disease invo lving [place] coronary artery of [place] heart without angina pectoris 03/22/2016 Essential hypertension [...] encounter Miscellaneous Notes * Telephone Encounter - Mariely Escalante LPN - 10/11/2023 12:52 PM EDT Spoke with daughter, gave all info in this encounter. Agreeable to plan * Telephone Encounter - Jennifer Queen PA-C - 10/11/2023 12:05 PM EDT Continue antibiotics and treatment protocol provided by ER on 10/08. Given recent hyponatremia on labs 10/09/23, would not recommend higher dose torsemide until labs arerepeated. Continue current doses for now. Have labs tomorrow [facility] She has received IV lasix in the past which could be a consideration tomorrow. ER for worsening symptoms overnight * Telephone Encounter - Mariely Escalante LPN - 10/11/2023 12:01 PM EDT Daughter said pt already takes 40mg in the evening with an additional 10mg over the past 4 days. They will come at 2pm tomorrow and have labs done. Orders placed STAT. * Telephone Encounter - Jennifer Queen PA-C - 10/11/2023 11:52 AM EDT Notes reviewed. Have patient take torsemide 40 mg this afternoon with potassium 20 meq (2 - 10 meq tabs) See if patient can come early tomorrow for blood work - BMP Depending on her symptoms/weight and labs, may consider IV diuretics? See if she can be here like 2:00 or 2:30 for blood work and evaluation. Blood work may take a while to process. Order BMP as STAT * Telephone Encounter - Mariely Escalante LPN - 10/11/2023 10:14 AM EDT Betty Rose. Daughter calling Patient calling with symptoms concerning for CHF exacerbation that have been present for 4 days. SOB Yes - chronic oxygen, has cough Weight gain Yes +3lbs Edema Yes - just in feet Abdominal distention Yes Lack of appetite No Recent home weights: 187.4 on 10/10/23 190.8 on 10/11/23 Exacerbating factors: Has the patient missed any medications? No Has there been a change in medications? Yes - Doxycycline started 10/10/23 for 10 days, for PNX and [facility] for yeast infection, nystatin Has there been any recent steroid use? No Has there been any dietary indiscretions? No Patient is currently taking: torsemide 40mg AM daily and 10mg PRN in afternoon. Pt has been taking 40mg in the AM daily and an extra 10mg in the afternoon every day since 10/07/23 Dose the patient have a DTP (Diuretic Titration Plan? Yes - Pt already implemented DTP Yes- Follow DTP and ensure a follow up call is made documented in this encounter Plan of Treatment Upcoming Encounters Date Type Department Care Team (Late st Contact Info) Description 10/12/2023 3:30 PM EDT Office Visit Cardiology, [facility] [address] [place] [address] Jennifer Queen PA-C [address] [place] [address] 10/16/2023 12:30 PM EDT PulmDiagnostic Pulmonary Function Lab, [place] [place] [address] Gjsh, Pulm Fun Tech [address] [place], [place] [phone] 10/20/2023 8:00 AM EDT Telemedicine Nephrology, [place] [address] [place], [place] [phone] Viktor Nicole MD [address] [place], [place] [phone] 11/07/2023 8:30 AM EDT Telemedicine Pulmonary Medicine, [place] [address] [place] [address] Yocasta Proctor CRNP [address] [place], [place] [phone] Scheduled Orders Name Type Priority Associated Diagnoses Orde r Schedule BASIC METABOLIC PANEL Lab STAT Chronic heart failure with preserved ejection fraction (HCC) Persistent atrial fibrillation (HCC) Expected: 10/12/2023, Expires: 10/10/2024 Health Maintenance Due Date Last Done Comments [...] failure with preserved ejection fraction (HCC)- Primary Persistent atrial fibrillation (HCC) Atrial fibrillation documented [...] the patient have Health Care Power of Equip Maint Eng? No Code Status History Code Status Date Activated Date Inactivated Comments Full Code 08/29/2023 8:14 PM 09/01/2023 6:46 PM This o rder reflects the patients wishes and were consensually agreed upon. Question Answer Comments Discussion of Advance Directives occurred with: Patient Does the patient have a Living Will? No Does the patient have Health Care Power of Equip Maint Eng? No Full Code 08/19/2023 2:26 PM 08/25/2023 7:30 PM This order reflects the patients wishes and were consensually agreed upon. Question Answer Comments Discussion of Advance Directives occurred with: Patient Does the patient have a Living Will? No Does the patient have Health Care Power of Equip Maint Eng? No Full Code 07/30/2023 11:50 AM 08/02/2023 5:34 PM This order reflects the patients wishes and were consensually agreed upon. Question Answer Comments Discussion of Advance Directives occurred with: Patient Full Code 10/01/2021 4:02 PM 10/05/2021 5:45 PM This or aydin reflects the patients wishes and were consensually agreed upon. Care Teams Application Development Liaison Relationship Specialty Start Date End Date Jeanna Bal PA-C [address] [address] [address] [place] [phone] PCP - General Physician Cofounder 06/13/17 documented as of this encounter
--- OUTSIDE RECORDS SUMMARY | 2023-12-06 21:45 | External Medical Summary ---
Author Name Unknown Address Unknown Organization K1G:LABORATORY [address] [address] Laboratory Report Ordering Provider Test Date Status JORDAN ROOT 10/09/2023 10:36:19 Final Exclude Heart Failure: <300 pg/mL
Diagnose Heart Failure:
Age <50 yr: >450 pg/mL
50-75 yr: >900 pg/mL
>75 yr: >1800 pg/mL
GFR is 30-59 mL/min: >1200 pg/mL or Age- adjusted values
GFR <30 mL/min: do not use, not reliable

Prognostic threshold: 1000 pg/mL Observation Date Value Abnormality Reference (Units ) Status BNP, Pro-hormone 10/09/2023 10:36:19 [id number] Above high no rmal <300 (pg/mL) Final Performing Location LABORATORY [facility] - [address] [place] [phone]
--- OUTSIDE RECORDS SUMMARY | 2023-12-06 21:46 | External Medical Summary ---
Author Name Unknown Address Unknown Organization K1G:LABORATORY [facility] - [address] [place] [phone] Laboratory Report Ordering Provider Test Date Status OPHELIA SCHWARZ 10/05/2023 05:52:00 Final Observation Date Value Abnormality Reference (Units ) Status BUN 10/05/2023 05:52:00 33 Above high normal 6-20 (mg/dL) Final Creatinine 10/05/2023 05:52:00 1.5 Above high normal 0.5-1.0 (mg/dL) Final Glomerular filtration rate/1.73 sq M.predicted [Volume Rate/Area] in Serum, Plasma or Blood by Creatinine-based formula (CKD-EPI) 10/05/2023 05:52:00 35 Below low normal >=60 (mL/min) Final eGFR is calculated based on the CKD-EPI 2020 equation SODIUM 10/05/2023 05:52:00 134 Below low normal 135 -146 (mmol/L) Final Potassium 10/05/2023 05:52:00 4.0 3.5-5.1 (m mol/L) Final Cl 10/05/2023 05:52:00 96 Below low normal 98- 107 (mmol/L) Final CO2 10/05/2023 05:52:00 26 22-32 (mmo l/L) Final Anion gap 10/05/2023 05:52:00 12 7-15 (mmol /L) Final Glucose 10/05/2023 05:52:00 87 70-120 (mg /dL) Final Calcium 10/05/2023 05:52:00 9.5 8.4-10.2 ( mg/dL) Final Performing Location LABORATORY [facility] - [address] [facility] [address]
--- OUTSIDE RECORDS SUMMARY | 2023-12-06 21:46 | External Medical Summary ---
Author Name Unknown Address Unknown Organization K01:LABORATORY [facility] - [address] [place] [address] Laboratory Report Ordering Provider Test Date Status OPHELIA SCHWARZ 10/05/2023 13:29:43 Final Observation Date Value Abnormality Reference (Units ) Status Sodium, Urine 10/05/2023 13:29:43 43 (mmol/ L) Final Performing Location LABORATORY [facility] - [address] [place] [address]
--- OUTSIDE RECORDS SUMMARY | 2023-12-06 21:46 | External Medical Summary ---
Author Name Unknown Address Unknown Organization K01:LAB[facility]ORY [facility] - [address] [place] [place] [address] Laboratory Report Ordering Provider Test Date Status OPHELIA SCHWARZ 10/05/2023 05:52:00 Final Observation Date Value Abnormality Reference (Units ) Status Uric Acid 10/05/2023 05:52:00 10.8 Above high normal 2. 4-5.7 (mg/dL) Final Performing Location LABORATORY [facility] - [address] [place] [address]
--- OUTSIDE RECORDS SUMMARY | 2023-12-06 21:46 | External Medical Summary ---
Author Name Unknown Address Unknown Organization [id number]:LABORATORY [facility] [place] - [address] [facility] [place] [address] Laboratory Report Ordering Provider Test Date Status LARA BLAKE 10/04/2023 06:29:00 Final Observation Date Value Abnormality Reference (Units ) Status Triglyceride 10/04/2023 06:29:00 47 <=174 ( mg/dL) Final Triglyceride Reference Range s (mg/dL):
<150 Acceptable
150-174 Borderline high
175-499 High
>=500 Very high Cholesterol 10/04/2023 06:29:00 48 <200 (mg /dL) Final Total Cholesterol Reference Ranges (mg/dL):
<200 Desirable
200-239 Borderline high
>=240 High HDL 10/04/2023 06:29:00 24 Below low normal >49 (mg/dL) Final HDL Cholesterol Reference Ra nges (mg/dL):
>=60 High (Desirable)
<50 Low (Undesirable) For Females
<40 Low (Undesirable) For Males NON-HDL CHOLESTEROL 10/04/2023 06:29:00 24 <=159 (mg/dL) Final Non-HDL Cholesterol Referenc e Range (mg/dL):
<100 Target level for high risk ASCVD patient
<130 Optimal for general population
130-159 Near optimal for general population
160-189 Borderline High
190-219 High
>=220 Very High LDL, (calculated) 10/04/2023 06:29:00 15 <= 129 (mg/dL) Final LDL Cholesterol Reference Ra nges (mg/dL):
<70 Target level for high risk ASCVD patient
<100 Optimal for general population
100-129 Near optimal for general population
130-159 Borderline high
160-189 High
>=190 Very high Performing Location LABORATORY [facility] [place] - [address] [facility] [address]
--- OUTSIDE RECORDS SUMMARY | 2023-12-06 21:46 | External Medical Summary ---
Author Name Unknown Address Unknown Organization [id number]:LABORATORY [facility] - [address] [place] [id number] Laboratory Report Ordering Provider Test Date Status OPHELIA SCHWARZ 10/05/2023 05:52:00 Final Observation Date Value Abnormality Reference (Units ) Status Magnesium 10/05/2023 05:52:00 2.5 1.5-2.6 (m g/dL) Final Performing Location LABORATORY [facility] - [address] [facility] [id number]
--- OUTSIDE RECORDS SUMMARY | 2023-12-06 21:46 | External Medical Summary | Summary of Care ---
Author Name Unknown Organization [facility] Address [address] [place] [address] Phone [phone] Care Team Providers Care Uniform Attendant Name Role Phone Jeanna Bal PA-C Primary Care Provi aydin Reason for Referral * Evaluate & Treat - Unlimited Visits (Within 10 days (routine)) - Authorized Specialty Diagnoses / Procedures Referred By Kasey nagy Referred To Contact HOME CARE / Home Care Diagnoses Heart failure (HCC) Meera Thompson MD [address] [place] [address] Referral ID Status Reason Start Date Expiration Date Visits Requested Visits Authorized [id number] Authorized Specialty Services Required 10/05/2023 999 999 Question Answer Referral Priority Within 10 days (routine) Where should this appointment be scheduled? Emily Comments Documentation of Hjjb-ix-Fgeg Encounter Addendum Patient Name: Maria Luisa Recinos I certify that this patient is under my care and that I, or a nurse practitioner or physician's advertising assistant manager working with me, had a hynn-tw-pobh encounter that meets the physician flac-hl-wkhr encounter requirements with this patient on: 10/05/2023 The encounter with the patient was in whole, or in part, for the following medical condition, which is the primary reason for home health care (List medical condition): Gait dysfunction I certify that, based on my findings, the following services are medically necessary home health services: Nursing, Physical Therapy, and occupational therapy To provide the following care/treatments: (All hospitalists not following the patient after discharge should complete this section): Post hospitalization physical therapy and occupational therapy Primary Care Physician to follow home care plan of care after discharge: Jeanna Bal PA-C My clinical findings support the need for the above services because: Ambulatory dysfunction with medication changes Physician Signature: Date of Signature: Physician Printed Name: Meera Thompson MD Discharge Order Reason for Visit * Reason Comments Short of Breath * Auth/Cert Specialty Diagnoses / Procedures Referred By Kasey nagy Referred To Contact [address] [address] Phone: [phone] Emergency [place] [address] Referral ID Status Reason Start Date Expiration Date Visits Re quested Visits Authorized [id number] Encounter Details Date Type Department Care Team (Latest Contact Info) Description 10/03/2023 5:05 PM EST - 10/05/2023 6:33 PM EST Hospital Encounter [facility]U [facility], Acute Care Unit, Main Hospital 2nd Floor [address] [place] [address] [place] MD [address] [place] [address] Meera Thompson MD [address] [place] [address] EKG Report Discharge Disposition: Home with Services Allergies Active Allergy Reactions Criticality Noted Date Comments Amoxicillin Hives Medium 03/22/2016 Gatifloxacin Nausea/vomiting Medium 03/22/2016 Latex Rash Medium 03/22/2016 Other reaction(s): johnson documented as of this encounter (statuses as of 10/06/2023) Medications Medication Sig Dispensed Refills Start Date [...] 1 Capsule before bedtime. 0 11/07/2022 Active Ipratropium-Albu terol 0.5-2.5 (3) MG/3ML Inhalation Solution [...] Active Preparation H 1-0.25-14.4-15 % External Cream (Esivfp-RT-Giejv rin-Petrolatum) Apply 1 Application topically to affected [...] evening. 120 Tablet 0 10/05/2023 4 Active Magnesium Oxide 400 MG Oral Tablet Take 1 Tablet by mouth in the morning and 1 Tablet before bedtime. 0 03/21/2020 4 Discontinued Nystatin 831309 UNIT/ML Mouth/Throat SuspensionIndica tions:Oral Candidiasis Swish and swallow 5 mL in the morning and 5 mL at noon and 5 mL in the evening and 5 mL before bedtime. 0 08/29/2023 4 Discontinued Apixaban 2.5 MG Oral Tablet (Eliquis) Take 1 Tablet by mouth in the morning and 1 Tablet before bedtime. 60 Tablet 0 09/01/2023 4 Discontinued levoFLOXacin 750 MG Oral Tablet (Levaquin) Take 1 Tablet by mouth every other day for 6 days. 3 Tablet 0 09/03/2023 4 Discontinued Oseltamivir Phosphate 30 MG Oral Capsule (Tamiflu) Take 1 Capsule by mouth in the morning and 1 Capsule before bedtime. Do all this for 2 days. 4 Capsule 0 09/01/2023 4 Discontinued Torsemide 20 MG Oral Tablet (Demadex) Take 1 Tablet by mouth in the morning and 1 Tablet before bedtime. 60 Tablet 0 09/01/2023 4 Discontinued Sodium Chloride 1 GM Oral Tablet Take 1 Tablet by mouth in the morning. 0 4 Discontinued levoFLOXacin 500 MG Oral Tablet Take 1 Tablet by mouth. 0 4 Discontinued Torsemide 20 MG Oral Tablet (Demadex) Take 1 Tablet by mouth in the morning and 1 Tablet in the evening. 0 4 Discontinued Hospital, Clinic, or Other Facility Administered Medication Ordered Dose Route Frequency Start Date End Date Status Albuterol Sulfate (Proventil) (2.5 MG/3ML) 0.083% inhalation solution 2.5 mgIndications:SOB (shortness of breath),Abnormal CT of the chest 2.5 mg NEBULIZER PRN 08/08/2023 10/05/2023 Discontin ued documented as of this encounter (statuses as of 10/06/2023) Active Problems Problem Noted Date Diagnosed Date [...] 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 Coronary artery disease invo lving [place] coronary artery of [place] heart without angina pectoris 03/22/2016 Essential hypertension with goal blood pressure less than 140/90 03/22/2016 Dyslipidemia, goal to be determined 03/22/2016 documented as of this encounter (statuses as of 10/06/2023) Resolved Problems Problem Noted Date Diagnosed Date Resolved Date Acute respiratory failure due to COVID-19 07/30/2023 08/01/2023 Pneumonia due to COVID-19 virus 07/30/2023 08/01/2023 NSTEMI (non-ST elevated myoc ardial infarction) 09/30/2021 10/05/2021 Pain in both lower extremities 03/22/2016 07/30/2023 documented as of this encounter (statuses as of 10/06/2023) Immunizations Name Administration Dates Next Due COVID-19 [...] Sign Reading Time Taken Comments Blood Pressure 128/72 10/05/2023 4:00 PM EST Pulse 56 10/05/2023 4:00 PM EST Temperature 36.3 C (97.3 F) 10/05/2023 4:00 PM ES T Respiratory Rate 18 10/05/2023 4:00 PM EST Oxygen Saturation 92% 10/05/2023 4:00 PM EST Inhaled Oxygen Concentration - - Weight 85.6 kg (188 lb 11.2 oz) 10/05/2023 4:15 AM EST Height 154.9 cm (5' 0.98") 10/03/2023 8:32 PM ES T Body Mass Index 35.67 10/03/2023 8:32 PM EST documented in this [...] Discharge Summaries * Meera Thompson MD - 10/05/2023 4:57 PM EST Images from the original note were not included. [place] [id number] [facility] [id number] Admission Date: 10/03/2023 Discharge Date: 10/05/2023 RECOMMENDED TO DO FOR NEXT PROVIDER(S): Post hospital follow-up for acute on chronic diastolic heart failure Follow-up in Nephrology with a prior BNP to be done on October 18. Follow-up with Cardiology next week Following up hemoglobin and hematocrit in 1 month REASON(S) FOR MEDICATION CHANGE(S): Increased torsemide to 40 mg twice daily DISPOSITION ON DISCHARGE: Home with [facility] with health services Active Hospital Problems Diagnosis *Principal Diagnosis - Acute on chronic respiratory failure with hypoxia (HCC) Anemia Nonrheumatic aortic valve stenosis Acute on chronic heart failure (HCC) CARLOTA (acute kidney injury) (HCC) Prolonged QT interval Acute combined systolic and diastolic CHF, NYHA class 1 (HCC) Generalized weakness Chronic hyponatremia Atrial fibrillation (HCC) Positive D dimer Elevated troponin Pulmonary HTN (HCC) Resolved Hospital Problems No resolved problems to display. 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 She presents to our facility with complaints of shortness of breath and generalized weakness. Patient presents as described above. She tells me she recently discharged from inpatient rehab due to having pneumonia and COVID. She had been doing well except for some mild shortness of breath withactivity. She notes that 2 days ago she began to experience a productive cough with brown colored sputum. Her family checked her pulse ox and it was noted to be in the mid 80s. She did have an oxygentank from previous hospitalizations for which she used and found relief. Unfortunately, yesterday, the patient began to experience shortness of breath with rest. She notes that she did have some increased swelling of bilateral lower extremities. She does have history of heart failure and states that when it gets bad, she generally accumulates fluid in her abdomen. She does not recall having a sensation of this. She also tells me that her weight has stayed pretty much around 192 lb. Because her symptoms seem to worsen, her family brought her to the emergency room for further evaluation and treatment. Patient reports that she does take her prescribed medication as directed. Activity and ambulation seem to worsen her symptoms while rest seems to relieve them. Aside from the above-mentioned symptoms, the patient has no further complaints. She denies fevers, chills, loss of sense of taste orsmell, exposure to COVID-19, chest pain, abdominal pain, nausea, vomiting, diarrhea or constipation. There are no changes to her bladder function. Subsequent workup at our facility included a chest x-ray suggesting extensive chronic interstitial markings. Unchanged with superimposed parenchymal consolidation not completely excluded. D-dimer marginal at 0.[address] PE which suggested interval improvement in patches of infiltrate within each lung. There is mild residual patches of infiltrate in the periphery. No pleural effusion identified. Chronic interstitial fibrosis. Venous blood gas suggested a pH of 7.463 with pCO2 of 39.9. Routine labs revealed an acute kidney injury with a BUN of 33, creatinine 1.5 and GFR 34. Baseline renalfunction is creatinine 1.0 GFR 55. There is mild and chronic appearing hyponatremia at 1:32 a.m. with baseline ranging from 124-129. INR is elevated at 1.9 in a patient taking Eliquis. Initial high sensitivity troponin was 38 with a follow-up of 37. This appears to be chronically elevated within the range of 20-[place] [address]. EKG suggests atrial fibrillation at 60 beats per minute with an age-indeterminate septal infarct, age-indeterminate inferior infarct and T-wave inversions in the lateral leads. There is a prolonged QT. There is no leukocytosis appreciated. Lactic acid is normal. Remaining labs are essentially unremarkable. OLOI-HYQUW-7 is negative. RVP is negative. Vital signs reveal an afebrile patient at 35.9 C. Heart rate is 57 and irregular. Respirations are 14 and unlaboredsaturating 97% on 4 L nasal cannula. Blood pressure is 114/76. HOSPITAL COURSE (focused): 10/03 Cardiology consultation appreciated and recommendation is that we continue with diuresis with Lasix. We will continue with 20 mg of Lasix twice daily due to soft blood pressures and I have restarted midodrine at this time. Also ordered potassium repletion and patient's serum creatinine level is improving gradually. Most likely due to cardiorenal should continue to improve. Patient has bilateral lower extremity Dopplers were negative for DVT. The patient now is back on room air at this time. 10/04 Patient's blood pressure was improved with initiation of midodrine and due to this her Lasix was increased to 40 mg twice daily. Patient's serum creatinine level still 1.5 but she is producing good urine output in due to nephrology appointment being rescheduled to October 19 she will be discharged with a BMP to be done on September. Urine studies and renal ultrasound was done in anticipation outpatient renal follow-up and patient will be discharged on an increased dose of torsemide 40 mg twice daily. She has an appointment with Cardiology next week. The patient's reticulocyte count was elevated she has no obvious signs of bleeding and denies having any hematuria, melena, or hematochezia. General: Not in acute distress HEENT: Normocephalic, atraumatic. EOMI Cardiac: Normal rate with irregular rhythm. Systolic murmur Respiratory: Coarse breath sounds heard Abdomen: Soft flat abdomen without tenderness on palpation at all 4 quadrants. Normoactive bowel sounds Extremities: No pitting edema bilaterally noted Neuro/Psych: The patient is awake, alert and oriented to person, place, and time with normal speech. Appropriate mood and affect. Operations & Procedures: none Complications: none applicable Significant Lab and Imaging Results: As mentioned above Results Pending at Discharge: Lab Results Pending at Discharge: SODIUM, RANDOM URINE Routine URIC ACID Add-on CBC Routine BASIC METABOLIC PANEL Routine MAGNESIUM Routine PHOSPHORUS Routine MEDICATION UPDATES AT DISCHARGE CHANGE how you take these medications INSTRUCTIONS Apixaban 2.5 MG Tabs Commonly known as: Eliquis What changed: Another medication with the same name was removed. Continue taking this medication, and follow the directions you see here. Take 1 Tablet by mouth in the morning and 1 Tablet before bedtime. atorvaSTATin 20 MG Tablet Commonly known as: Lipitor What changed: when to take this Take 1 Tablet by mouth daily. midodrine 5 MG Tablet Commonly known as: Proamatine What changed: when to take this Take 1 Tablet by mouth in the morning and 1 Tablet at noon and 1 Tablet in the evening. * Torsemide 20 MG Tablet Commonly known as: Demadex What changed: how much to take Another medication with the same name was removed. Continue taking this medication, and follow the directions you see here. Take 2 Tablets by mouth in the morning and 2 Tablets in the evening. * Torsemide 10 MG Tablet Commonly known as: Demadex What changed: Another medication with the same name was changed. Make sure you understand how and when to take each. Another medication with the same name was removed. Continue taking this medication, and follow the directions you see here. Take 1 Tablet by mouth daily as needed for Other (may take 1 extra dose daily if needed). * This list has 2 medication(s) that are the same as other medications prescribed for you. Read thedirections carefully, and ask your doctor or other care provider to review them with you. CONTINUE taking these medications INSTRUCTIONS Acetaminophen 325 MG Caps Notes to patient: Pain; Fever Take 2 Tablets by mouth as needed for Other (Temp above 100.5 or pain). albuterol-ipratropium 2.5-0.5 MG/3ML nebulizer solution Commonly known as: Duoneb Notes to patient: Help open airways and reduce wheezing, shortness of breath, and cough Inhale 0.5 mg by mouth every 6 hours as needed for Shortness of Breath, Cough or Wheezing. aspirin enteric coated 81 MG Tbec Notes to patient: Heart health; help thin blood Take 1 Tablet by mouth in the [...] Carbonate 600 MG Tablet Notes to patient: Supplement Take 1 Tablet by mouth in the morning and 1 Tablet before bedtime. cholecalciferol (VIT D3) 1000 UNITS Tablet Notes to patient: Supplement Take 1 Tablet by mouth daily at noon. [facility]: DME Use as directed. Cosopt 2.23-0.68% ophthalmic solution Generic drug: dorzolamide-timolol Notes to patient: Help lower eye pressure and treat glaucoma Instill 1 Drop into eye in the morning and 1 Drop before bedtime. Enema Disposable Enem Notes to patient: constipation Administer 1 Application into the rectum as needed for Constipation. fluticasone furoate-vilanterol 100-25 MCG/ACT Aepb Commonly known as: BREO ellipta Notes to patient: Help treat asthma Inhale 1 Puff by mouth in the morning. Latanoprost 0.005 % ophthalmic solution Commonly known as: Xalatan Instill 1 Drop into both eyes at bedtime. methIMAzole 5 MG Tablet Commonly known as: Tapazole Notes to patient: Help reduce excess thyroid hormone Take 0.5 Tablets by mouth. Take 1/2 tablet 6 days per week (does not take on Monday) polyethylene glycol 3350 119 gram Powd Commonly known as: Miralax Notes to patient: Treat constipation Take 17 g by mouth as needed for Constipation. Potassium Chloride ER 10 MEQ Cpcr Notes to patient: Constipation Take 1 Capsule by mouth in the morning and 1 Capsule before bedtime. Preparation H 1-0.25-14.4-15 % Crea Generic drug: Bojlly-DB-Qwtejpgg-Petrolatum Notes to patient: Hemorrhoid treatment Apply 1 Application topically to affected area every 8 hours as needed for Hemorrhoids. Apply to rectal area Senna-S 8.6-50 MG per tablet Generic drug: senna-docusate Notes to patient: Treat constipation Take 1 Tablet by mouth in the morning. sodium chloride 1 GM Tablet Notes to patient: Help increase sodium in body; Supplement Take 1 Tablet by mouth in [...] daily at noon. STOP taking these medications Levaquin 500 MG Tablet Generic drug: levoFLOXacin levoFLOXacin 750 MG Tablet Commonly known as: Levaquin Magnesium Oxide 400 MG Tablet nystatin [id number] UNIT/ML suspension oseltamivir 30 MG Caps Commonly known as: Tamiflu SCHEDULED FOLLOW-UP: Future Appointments Appt Date/Time Provider Department 10/12/2023 3:30 PM Jennifer Queen PA-C Cardiology, [facility] 10/16/2023 12:30 PM Patito Pulkay[facility] Pulmonary Function Lab, [facility] 10/20/2023 8:00 AM Viktor Nicole MD Nephrology, [facility] 11/07/2023 8:30 AM Yocasta Proctor CRNP Pulmonary Medicine, [facility] Outpatient Follow Up Basic Metabolic Panel Home Health Referral OP Other Information Indwelling Devices: LINES ALL Duration Peripheral Line Right Antecubital 22 Gauge 1 day Vital Signs (last recorded): Most Recent Systolic BP: 128 mmHg (10/05/23 1600) Most Recent Diastolic BP: 72 mmHg (10/05/23 1600) Pulse: 56 (10/05/23 1600) Resp: 18 (10/05/23 1600) Most Recent Temperature: 36.28 C (10/05/23 1600) Weight: 85.6 kg (188 lb 11.2 oz) (10/05/23 0415) SpO2: 92 % (10/05/23 1600) O2 flow rate: 1 L/MIN (10/04/23 2132) Allergies: Amoxicillin, Gatifloxacin, and Latex Activity: as tolerated Diet: age appropriate diet and fluid restriction at 2 L Code Status: No Code Condition on Discharge: stable Isolation status: None Cognition: normal HOSPITAL CONSULTS ORDERED: ADULT PHYSICAL THERAPY CONSULT IP ADULT OCCUPATIONAL THERAPY CONSULT IP CARE MANAGEMENT CONSULT IP CARDIOLOGY CONSULT IP REFERRING PHYSICIAN: Ref: [id number]] NO STREET ADDRESS AVAILABLE None (office) None (fax) PRIMARY CARE PROVIDER: PCP: Jeanna Bal PA-C [address] [place] [address] / [place] [id number] (office) [phone] (fax) Note: To contact a physician responsible for this patients hospital care, please call [employer] [phone]. I certify this patient is confined to the home and needs intermittent intermediate care, physical therapy and/or speech therapy, or continues to need occupational therapy. The patient is under my care and I have authorized services on this plan of care. The clinical findings of decrease in functional mobility secondary to decreased strength, decreased balance, and decreased endurance due to recent hospitalization and overall medical condition support the need for home health, and the patientdemonstrates a considerable and taxing effort when attempting to leave the home. The patient had a ixto-ar-ztpo encounter with an allowed provider type on 10/05/2023 and the encounter was related to the primary reason for home health care. Under situations in which I am an acute/post acute facility physician who will not be following the patient's plan of care, I authorized services on this plan ofcare and I transfer the patient for plan of care certification to the primary care physician named below who will follow the patient and update the plan of care. Primary care physician Jeanna Bal PA-C I certify this patient is confined to the home and needs intermittent intermediate care, physical therapy and/or speech therapy, or continues to need occupational therapy. The patient is under my care and I have authorized services on this plan of care. The clinical findings of decrease in functional mobility secondary to decreased strength, decreased balance, and decreased endurance due to recent hospitalization and overall medical condition support the need for home health, and the patientdemonstrates a considerable and taxing effort when attempting to leave the home. The patient had a mhpk-al-ocnr encounter with an allowed provider type on 10/05/23 and the encounter was related to the primary reason for home health care. Under situations in whichI am an acute/post acute facility physician who will not be following the patient's plan of care, Iauthorized services on this plan of care and I transfer the patient for plan of care certification to the primary care physician named below who will follow the patient and update the plan of care. Primary care physician Jeanna Bal PA-C I spent a total of 45 minutes coordinating, documenting, and providing care for this patient excluding time spent in the performance of separately billed services. Addendum Discussed case with Nephrology and I have discontinued salt tablets and instructed patient to instead use weight protein. I have also added another BNP to be taken prior to following up with Cardiology. Both were explained to patient and her daughter at the bedside prior to her being discharged. documented in this encounter Discharge Instructions * Discharge Instr - AVS* Meera Thompson MD - 10/05/2023 5:00 PM EST Your Care Instructions One or more doctors have given you a physical exam, reviewed your symptoms, and asked about your past medical problems. You have had tests as needed. At this time, the doctors feel it is safe for you to go home. It is very important that you follow up with your doctor as directed. If you continue to have symptoms, you may need more tests or treatment. The doctor has checked you carefully, but problems can develop later. If you notice any problems ornew symptoms, get medical treatment right away. Follow-up care is a saavedra part of your treatment and safety. Be sure to make and go to all appointments, and call your doctor if you are having problems. It's also a good idea to know your test resultsand keep a list of the medicines you take. How can you care for yourself at home? Keep track of any new symptoms or changes in your symptoms. Rest until you feel better. Be safe with medicines. Take your medicines exactly as prescribed. Call your doctor if you think you are having a problem with your medicine. Do not drive after taking a prescription pain medicine. When should you call for help? Call 911 anytime you think you may need emergency care. For example, call if: You passed out (lost consciousness). Call your doctor now or seek immediate medical care if: You have new symptoms like fever, difficulty breathing, vomiting, or rash. You have new or different pain. You are confused and are having trouble thinking clearly. Your symptoms are getting worse. Watch closely for changes in your health, and be sure to contact your doctor if: You do not get better as expected. documented in this encounter Progress Notes * Meera Thompson MD - 10/04/2023 1:52 PM EST Images from the original note were not included. [id number]-[id number] INTERVAL HISTORY: Patient was seen and evaluated at the bedside. Patient does not complain of any chest pain Patient states that the shortness of breath that she presented with is better Objective Physical Exam Most Recent Vital Signs: BP: 98 mmHg/63 mmHg (10/04/23 1200) Pulse: 68 (10/04/23 1300) Temp: 36.28 C (10/04/23 1200) Temp Summary: Temp Min: 35.6 C (96.1 F) Max: 36.4 C (97.5 F) SpO2: 95 % (10/04/23 1200) O2 flow rate: 1 L/MIN (10/04/23 0411) Supplemental O2 Delivery: Room Air, None (10/04/23 1200) General: Not in acute distress HEENT: Normocephalic, atraumatic. EOMI Cardiac: Normal rhythm and rate. Systolic murmur Respiratory: Coarse breath sounds heard Abdomen: Soft flat abdomen without tenderness on palpation at all 4 quadrants. Normoactive bowel sounds Extremities: No pitting edema bilaterally noted Neuro/Psych: The patient is awake, alert and oriented to person, place, and time with normal speech. Appropriate mood and affect. Urethral Catheter (Active) Number of days: 1 Peripheral Line Right Antecubital 22 Gauge (Active) Number of days: 1 STUDIES: Encounter Orders Labs and other studies reviewed Current Facility-Administered Medications: Benzonatate (Tessalon Perles) cap 200 mg, 200 mg, Oral, TID PRN, Enoc Rasmussen PA-C, 200 mg at 10/04/23 0036 midodrine (Proamatine) tab 5 mg, 5 mg, Oral, TID, Meera Thompson MD, 5 mg at 10/04/23 1351 Acetaminophen (Tylenol) tab 650 mg, 650 mg, Oral, Q6H PRN, Enoc Rasmussen PA-C albuterol-ipratropium (Duoneb) inhalation solution 3 mL, 3 mL, Nebulizer, Q4H PRN, Enoc Rasmussen PA-C Apixaban (Eliquis) tab 2.5 mg, 2.5 mg, Oral, BID(AM/PM), Enoc Rasmussen PA-C, 2.5 mg at aspirin enteric coated tab 81 mg, 81 mg, Oral, Daily(AM), Enoc Rasmussen PA- C, 81 mg at atorvaSTATin (Lipitor) tab 20 mg, 20 mg, Oral, QPM 1999, Enoc Rasmussen PA-C, 20 mg at 10/03/23 2350 Bisacodyl (Dulcolax) supp 10 mg, 10 mg, Rectal, PRN, Enoc Rasmussen PA-C calcium CARBonate (Tums E-X) tab CHEW 750 mg, 750 mg, Oral, BID (Noon, 1700), Enoc Rasmussen PA-C, 750 mg at 10/04/23 1159 cholecalciferol (VIT D3) (Vitamin D3) tab 1,000 Units, 1,000 Units, Oral, Daily Noon, Enoc Rasmussen PA-C, 1,000 Units at 10/04/23 1159 CYANOCOBALAMIN (vitamin B-12) tab 1,000 mcg, 1,000 mcg, Oral, Daily(AM), Enoc Rasmussen PA-C, 1,000 mcg at 10/04/23 0925 dorzolamide-timolol (Cosopt Ocumeter Plus) ophthalmic solution 1 Drop, 1 Drop, Both eyes, BID(AM/PM), Enoc Rasmussen PA-C, 1 Drop at 10/04/23 0930 fluticasone furoate-vilanterol (BREO ellipta) 100-25 MCG/ACT inhaler 1 Puff, 1 Puff, Inhalation, Resp Daily, Enoc Rasmussen PA-C, 1 Puff at 10/04/23 1154 Furosemide (Lasix) inj 20 mg, 20 mg, IV Push, BID (0900,1600), Enoc Rasmussen PA-C, 20 mg at 10/04/23 0927 Latanoprost (Xalatan) 0.005 % ophthalmic solution 1 Drop, 1 Drop, Both eyes, HS, Enoc Rasmussen PA-C, 1 Drop at 10/03/23 2350 methIMAzole (Tapazole) tab 2.5 mg, 2.5 mg, Oral, Daily(AM), Enoc Rasmussen PA-C, 2.5 mg at 10/04/23 09 oxygen GAS, , Inhalation, Oxygen, Enoc Rasmussen PA-C, Oxygen On at 10/04/23 0800 potassium chloride ER tab 10 mEq, 10 mEq, Oral, Daily(AM), Enoc Rasmussen PA- C, 10 mEq at 10/04/23 09 senna-docusate (Senokot-S) 1 Tablet, 1 Tablet, Oral, Daily(AM), Enoc Rasmussen PA-C, 1 Tablet at10/04/23 0925 sodium chloride 0.9 % flush peripheral geovanna 3 mL, 3 mL, IV Push, Q Shift, Enoc Rasmussen PA-C, 3 mL at 10/04/23 0930 sodium chloride 0.9 % flush/inj 3 mL, 3 mL, IV Push, PRN, Enoc Rasmussen PA-C sodium chloride tab 1 g, 1,000 mg, Oral, Daily(AM), Enoc Rasmussen PA-C, 1 g at 10/04/23 0926 trimethobenzamide (Tigan) inj 100 mg, 100 mg, Intramuscular, Q6H PRN, Enoc Rasmussen PA-C Vitamin C (Ascorbic Acid) tab 500 mg, 500 mg, Oral, Daily Noon, Enoc Rasmussen PA-C, 500 mg at 10/04/23 1159 Vitamin E (Aquasol E) cap 400 Units, 400 Units, Oral, Daily(AM), Enoc Rasmussen PA-C, 400 Units at 10/04/23 0925 Assessment and Plan IMPRESSION : Principal Problem: Acute on chronic respiratory failure with hypoxia (HCC) Active Problems: Pulmonary HTN (HCC) Elevated troponin Positive D dimer Atrial fibrillation (HCC) Chronic hyponatremia Acute on chronic heart failure (HCC) CARLOTA (acute kidney injury) (HCC) Prolonged QT interval Acute combined systolic and diastolic CHF, NYHA class 1 (HCC) Generalized weakness Anemia Nonrheumatic aortic valve stenosis Resolved Problems: * No resolved hospital problems. * DIFFERENTIAL AND PLAN: ASSESSMENT Acute on chronic diastolic heart failure Acute kidney injury Hypokalemia History Hypertension Type 2 diabetes Hyperlipidemia 4.5 cm ascending aortic aneurysm Persistent atrial fibrillation on Eliquis Moderate aortic stenosis Severe mitral stenosis Severe left ventricular hypertrophy Graves disease PLAN Cardiology consultation appreciated and recommendation is that we continue with diuresis with Lasix. We will continue with 20 mg of Lasix twice daily due to soft blood pressures and I have restarted midodrine at this time. Also ordered potassium repletion and patient's serum creatinine level is improving gradually. Most likely due to cardiorenal should continue to improve. Patient has bilateral lower extremity Dopplers were negative for DVT. The patient now is back on room air at this time. PHARMACOLOGIC VTE PROPHYLAXIS: Apixaban Apixaban Tabs CODE STATUS: No Code EXPECTED DISCHARGE DATE: 10/06/2023 documented in this encounter H&P Notes * Enoc Rasmussen PA-C - 10/03/2023 8:58 PM EST Images from the original note were not included. [facility] MH2 [id number]-[id number] PRESENTING PROBLEM: Progressively worsening shortness of breath and generalized weakness. HPI: Patient is an 87-year-old female with significant past medical history of CAD, HOCM, combined systolic and diastolic valvular heart failure, mild aortic stenosis, moderate mitral stenosis, atrial fibrillation, chronic anticoagulation, chronic appearing elevated troponin, hypertension, hyperlipidemia, pulmonary hypertension, chronic respiratory failure with supplemental oxygen dependency, AAA and grease disease. She presents to our facility with complaints of shortness of breath and generalized weakness. Patient presents as described above. She tells me she recently discharged from inpatient rehab due to having pneumonia and COVID. She had been doing well except for some mild shortness of breath withactivity. She notes that 2 days ago she began to experience a productive cough with brown colored sputum. Her family checked her pulse ox and it was noted to be in the mid 80s. She did have an oxygentank from previous hospitalizations for which she used and found relief. Unfortunately, yesterday, the patient began to experience shortness of breath with rest. She notes that she did have some increased swelling of bilateral lower extremities. She does have history of heart failure and states that when it gets bad, she generally accumulates fluid in her abdomen. She does not recall having a sensation of this. She also tells me that her weight has stayed pretty much around 192 lb. Because her symptoms seem to worsen, her family brought her to the emergency room for further evaluation and treatment. Patient reports that she does take her prescribed medication as directed. Activity and ambulation seem to worsen her symptoms while rest seems to relieve them. Aside from the above-mentioned symptoms, the patient has no further complaints. She denies fevers, chills, loss of sense of taste orsmell, exposure to COVID-19, chest pain, abdominal pain, nausea, vomiting, diarrhea or constipation. There are no changes to her bladder function. Subsequent workup at our facility included a chest x-ray suggesting extensive chronic interstitial markings. Unchanged with superimposed parenchymal consolidation not completely excluded. D-dimer marginal at 0.[address] PE which suggested interval improvement in patches of infiltrate within each lung. There is mild residual patches of infiltrate in the periphery. No pleural effusion identified. Chronic interstitial fibrosis. Venous blood gas suggested a pH of 7.463 with pCO2 of 39.9. Routine labs revealed an acute kidney injury with a BUN of 33, creatinine 1.5 and GFR 34. Baseline renalfunction is creatinine 1.0 GFR 55. There is mild and chronic appearing hyponatremia at 1:32 a.m. with baseline ranging from 124-129. INR is elevated at 1.9 in a patient taking Eliquis. Initial high sensitivity troponin was 38 with a follow-up of 37. This appears to be chronically elevated within the range of 20-[place] [address]. EKG suggests atrial fibrillation at 60 beats per minute with an age-i ndeterminate septal infarct, age-indeterminate inferior infarct and T-wave inversions in the lateral leads. There is a prolonged QT. There is no leukocytosis appreciated. Lactic acid is normal. Remaining labs are essentially unremarkable. OMIT-NAITR-3 is negative. RVP is negative. Vital signs reveal an afebrile patient at 35.9 C. Heart rate is 57 and irregular. Respirations are 14 and unlaboredsaturating 97% on 4 L nasal cannula. Blood pressure is 114/76. Subjective Past Medical History: Diagnosis Date AAA (abdominal aortic aneurysm) ([facility]) Acute combined systolic and diastolic CHF, NYHA class 1 (HCC) 10/03/2023 Aortic stenosis, mild Atrial fibrillation (HCC) CAD (coronary artery disease) Chronic respiratory failure (HCC) Graves disease Hypertrophic cardiomyopathy (HCC) Mixed hyperlipidemia Moderate mitral stenosis Nonrheumatic mitral valve stenosis Primary hypertension Pulmonary hypertension (HCC) Second hand smoke exposure Severe tricuspid regurgitation Supplemental oxygen dependent Past Surgical History: Procedure Laterality Date APPENDECTOMY W/OTHER PROCEDURE CORONARY ANGIOGRAPHY W/LEFT HEART CATH Right 10/04/2021 CORONARY ANGIOGRAPHY W/LEFT HEART CATH performed by Rodri Jacobs MD at [facility] [facility];W/HYSTERECTOMY MO CHOLECYSTECTOMY Family History Problem Relation Age of Onset Diabetes Mother Stroke Mother Heart Disorder Father 63 [place] Hypertension Brother Heart Disorder Aunt (Unspecified) IA Heart Disorder Uncle (Unspecified) [place] Hypertension Son Hypertension Daughter Social History Tobacco Use Smoking status: Never Passive exposure: Past Smokeless tobacco: Never Tobacco comments: Parents smoked in home growing up and then work place up until 1967 Vaping Use Vaping Use: Never used Substance Use Topics Alcohol use: Not Currently Drug use: Never Review of patient's allergies indicates: Allergen Reactions Amoxicillin Hives Gatifloxacin Nausea/vomiting Latex Rash Other reaction(s): johnson MEDICATIONS Acetaminophen 325 MG Oral Capsule Take 2 Tablets by mouth as needed for Other (Temp above 100.5 or pain). Patient, History Per Needs Review Bisacodyl 10 MG Rectal Suppository (Dulcolax) Administer 1 Suppository into the rectum as needed for Constipation. Patient, History Per Needs Review Dorzolamide HCl-Timolol Mal 2-0.5 % Ophthalmic Solution (Cosopt) Instill 1 Drop into eye in the morning and 1 Drop before bedtime. Patient, History Per Needs Review Enema Disposable Rectal Enema Administer 1 Application into the rectum as needed for Constipation. Patient, History Per Needs Review Latanoprost 0.005 % Ophthalmic Solution (Xalatan) 1 Drop at bedtime. Patient, History Per Needs Review levoFLOXacin 500 MG Oral Tablet Take 1 Tablet by mouth. Patient, History Per Needs Review polyethylene glycol 3350 119 gram OR POWD Take 17 g by mouth as needed for Constipation. Patient, History Per Needs Review Preparation H 1-0.25-14.4-15 % External Cream (Iyxwne-CG-Dieqnlxk-Petrolatum) Apply 1 Application topically to affected area every 8 hours as needed for Hemorrhoids. Apply to rectal area Patient, History Per Needs Review Sennosides-Docusate Sodium 8.6-50 MG Oral Tablet (Senna-S) Take 1 Tablet by mouth in the morning. Patient, History Per Needs Review Sodium Chloride 1 GM Oral Tablet Take 1 Tablet by mouth in the morning. Patient, History Per Needs Review Apixaban 2.5 MG Oral Tablet (Eliquis) Take 1 Tablet by mouth in the morning and 1 Tablet before bedtime. Sai Nelson MD Needs Review levoFLOXacin 750 MG Oral Tablet (Levaquin) Take 1 Tablet by mouth every other day for 6 days. Sai Nelson MD Needs Review Oseltamivir Phosphate 30 MG Oral Capsule (Tamiflu) Take 1 Capsule by mouth in the morning and 1 Capsule before bedtime. Do all this for 2 days. Sai Nelson MD Needs Review Torsemide 20 MG Oral Tablet (Demadex) Take 1 Tablet by mouth in the morning and 1 Tablet before bedtime. Sai Nelson MD Needs Review Nystatin 856348 UNIT/ML Mouth/Throat Suspension Swish and swallow 5 mL in the morning and 5 mL at noon and 5 mL in the evening and 5 mL before bedtime. Patient, History Per Needs Review Patient not taking: Reported on 09/11/2023 Benzonatate 100 MG Oral Capsule Take 2 Capsules by mouth 3 times a day as needed for Cough. Ghada Leon PA-C Needs Review Classics Rolling Walker Use as directed. Ghada Leon PA-C Needs Review Midodrine HCl 5 MG Oral Tablet (Proamatine) Take 1 Tablet by mouth in the morning and 1 Tablet at noon and 1 Tablet in the evening. Ghada Leon PA-C Needs Review Albuterol Sulfate (Proventil) (2.5 MG/3ML) 0.083% inhalation solution 2.5 mg Yocasta Proctor CRNP Needs Review Fluticasone Furoate-Vilanterol 100-25 MCG/ACT Inhalation Aerosol Powder Breath Activated (BREO ellipta) Inhale 1 Puff by mouth in the morning. Yocasta Proctor CRNP Needs Review Ipratropium-Albuterol 0.5-2.5 (3) MG/3ML Inhalation Solution (Duoneb) Inhale 0.5 mg by mouth every 6 hours as needed for Shortness of Breath, Cough or Wheezing. Patient, History Per Needs Review Potassium Chloride ER 10 MEQ Oral Capsule Extended Release Take 2 Capsules by mouth in the morning and 2 Capsules before bedtime. Patient, History Per Needs Review Atorvastatin Calcium 20 MG Oral Tablet (Lipitor) Take 1 Tablet by mouth daily. Rakesh Kimble DO Needs Review Patient taking differently: Take 1 Tablet by mouth at bedtime. Magnesium Oxide 400 MG Oral Tablet Take 1 Tablet by mouth in the morning and 1 Tablet before bedtime. Patient, History Per Needs Review methIMAzole 5 MG Oral Tablet (TAPAZOLE) Take 1/2 tablet 6 days per week does not take on monday Jennifer Queen PA-C Needs Review Cyanocobalamin (VITAMIN B-12) 1000 MCG Tablet Take 1 Tablet by mouth in the morning. Patient, History Per Needs Review Aspirin 81 MG TBEC Take 1 Tablet by mouth in the morning. Patient, History Per Needs Review Calcium Carbonate 600 MG Tablet Take 1 Tablet by mouth in the morning and 1 Tablet before bedtime. Patient, History Per Needs Review cholecalciferol, VIT D3, (VITAMIN D3) 1000 UNITS Tablet Take 2 Tablets by mouth daily at noon. Patient, History Per Needs Review vitamin c (ASCORBIC ACID) 500 MG Tablet Take 1 Tablet by mouth daily at noon. Patient, History Per Needs Review Vitamin E 400 UNITS Tablet Take 1 Tablet by mouth daily at noon. Patient, History Per Needs Review Patient's past history, medications, and allergies were reviewed. Review of Systems Constitutional: Positive for fatigue. HENT: Negative. Eyes: Negative. Respiratory: Positive for shortness of breath. Cardiovascular: Positive for leg swelling. Gastrointestinal: Negative. Endocrine: Negative. Genitourinary: Negative. Musculoskeletal: Negative. Skin: Negative. Allergic/Immunologic: Negative. Neurological: Positive for weakness. Hematological: Negative. Psychiatric/Behavioral: Negative. All other systems reviewed and are negative. Objective Physical Exam Most Recent Vital Signs: BP: 136 mmHg/75 mmHg (10/03/232031) Pulse: 70 (10/03/232031) Temp: 35.72 C (10/03/232031) Temp Summary: Temp Min: 35.7 C (96.3 F) Max: 36.4 C (97.5 F) SpO2: 96 % (10/03/232031) O2 flow rate: 2 L/MIN (10/03/232036) Supplemental O2 Delivery: Nasal Cannula (10/03/232036) Physical Exam Vitals and nursing note reviewed. Constitutional: Appearance: She is obese. HENT: Head: Normocephalic and atraumatic. Mouth/Throat: Mouth: Mucous membranes are moist. Pharynx: Oropharynx is clear. Eyes: Extraocular Movements: Extraocular movements intact. Pupils: Pupils are equal, round, and reactive to light. Cardiovascular: Rate and Rhythm: Normal rate and regular rhythm. Heart sounds: Murmur heard. Pulmonary: Effort: Pulmonary effort is normal. Breath sounds: Examination of the right-lower field reveals decreased breath sounds. Examination ofthe left-lower field reveals decreased breath sounds. Decreased breath sounds present. Abdominal: General: Bowel sounds are normal. Palpations: Abdomen is soft. Musculoskeletal: Cervical back: Normal range of motion and neck supple. Right lower leg: Edema present. Left lower leg: Edema present. Skin: General: Skin is warm and dry. Capillary Refill: Capillary refill takes less than 2 seconds. Neurological: General: No focal deficit present. Mental Status: She is alert and oriented to person, place, and time. Psychiatric: Mood and Affect: Mood normal. Behavior: Behavior normal. Urethral Catheter (Active) Number of days: 0 Peripheral Line Right Antecubital 22 Gauge (Active) Number of days: 0 STUDIES: Encounter Orders Labs and other studies reviewed with pertinent findings noted below: Troponin T, High Sensitivity [[id number]] (Abnormal) Collected: 10/03/231930 Updated: 10/03/232001 Specimen Source: Blood, Venous Troponin T, High Sensitivity 37 High ng/L Respiratory Pathogen Panel, PCR [[id number]] (Normal) Collected: 10/03/231823 Updated: 10/03/231930 Specimen Type: Upper Respiratory Specimen Source: Nasal Turbinate Adenovirus by PCR Negative Coronavirus 229E by PCR Negative Coronavirus HKU1 by PCR Negative Coronavirus NL63 by PCR Negative Coronavirus OC43 by PCR Negative Coronavirus SARS-CoV-2 by PCR Negative Human Metapneumovirus by PCR Negative Rhinovirus/Enterovirus by PCR Negative Influenza A Virus by PCR Negative Influenza B Virus by PCR Negative Parainfluenza Virus 1 by PCR Negative Parainfluenza Virus 2 by PCR Negative Parainfluenza Virus 3 by PCR Negative Parainfluenza Virus 4 by PCR Negative Respiratory Syncytial Virus by PCR Negative Bordetella pertussis by PCR Negative Chlamydia pneumoniae by PCR Negative Mycoplasma pneumoniae by PCR Negative Bordetella parapertussis by PCR Negative D-Dimer [[id number]] (Abnormal) Collected: 10/03/231801 Updated: 10/03/231849 Specimen Source: Blood, Venous D-Dimer 0.62 High ug/mL FEU Narrative: Rheumatoid factor at a level above 50 IU/mL may lead to an overestimation of the D-dimer level. A normal D-dimer result (<0.50 ug/mL FEU) has a negative predictive value of approximately 95% for the exclusion of acute pulmonary embolism (PE) or deep vein thrombosis when there is low or moderate pretest PE probability. Increased D-dimer values are abnormal but do not indicate a specific diseasestate and the D-dimer increase does not definitively correlate with clinical severity of disease. PT INR [[id number]] (Abnormal) Collected: 10/03/231801 Updated: 10/03/231849 Specimen Source: Blood, Venous Prothrombin Time 21.6 High seconds INR 1.9 High Narrative: Warfarin Therapy INR: 2.0-3.0 conventional anticoagulation INR: 2.5-3.5 high intensity anticoagulation BNP, NT-PRO [[id number]] (Abnormal) Collected: 10/03/231801 Updated: 10/03/23 184 Specimen Source: Blood, Venous BNP, NT-Pro 12,610 High pg/mL Narrative: Exclude Heart Failure: <300 pg/mL Diagnose Heart Failure: Age <50 yr: >450 pg/mL 50-75 yr: >900 pg/mL >75 yr: >1800 pg/mL GFR is 30-59 mL/min: >1200 pg/mL or Age-adjusted values GFR <30 mL/min: do not use, not reliable Prognostic threshold: 1000 pg/mL Comprehensive Metabolic Panel [[id number]] (Abnormal) Collected: 10/03/231801 Updated: 10/03/231837 Specimen Source: Blood, Venous BUN 33 High mg/dL Creatinine 1.5 High mg/dL Estimated Glomerular Filtration Rate 34 Low mL/min Sodium 132 Low mmol/L Potassium 4.1 mmol/L Chloride 96 Low mmol/L CO2 26 mmol/L Anion Gap 10 mmol/L Glucose 116 mg/dL Albumin 3.3 Low g/dL AST 44 High U/L Alkaline Phosphatase 103 U/L Bilirubin, Total 1.2 mg/dL Calcium 9.4 mg/dL Protein 7.1 g/dL ALT 25 U/L Troponin T, High Sensitivity [[id number]] (Abnormal) Collected: 10/03/231801 Updated: 10/03/231835 Specimen Source: Blood, Venous Troponin T, High Sensitivity 38 High ng/L CBC with WBC Differential [[id number]] (Abnormal) Collected: 10/03/231801 Updated: 10/03/231816 Specimen Source: Blood, Venous Narrative: The following orders were created for panel order CBC WITH WBC DIFFERENTIAL. Procedure Abnormality Status --------- ------ CBC[[id number]] Abnormal Final result DIFFERENTIAL, AUTOMATED[[id number]] Abnormal Final result Please view results for these tests on the individual orders. CBC [[id number]] (Abnormal) Collected: 10/03/231801 Updated: 10/03/231816 Specimen Source: Blood, Venous WBC 9.67 K/uL RBC 3.98 M/uL HGB 11.7 Low g/dL HCT 36.9 % MCV 92.7 fL MCH 29.4 pg MCHC 31.7 g/dL RDW 17.4 % PLT 263 K/uL MPV 9.3 fL Differential, Automated [[id number]] (Abnormal) Collected: 10/03/231801 Updated: 10/03/231816 Specimen Source: Blood, Venous WBC 9.67 K/uL Neutrophils % 73.3 % Lymphocytes % 13.1 Low % Monocytes % 8.8 % Eosinophils % 4.1 % Basophils % 0.7 % Absolute Neutrophils 7.08 K/uL Absolute Lymphocytes 1.27 K/ul Absolute Monocytes 0.85 K/uL Absolute Eosinophils 0.40 K/uL Absolute Basophils 0.07 K/uL Blood Gas, Venous [[id number]] (Abnormal) Collected: 10/03/231801 Updated: 10/03/231816 Specimen Source: Blood, Venous Temperature 37.0 C pH, Venous 7.463 High units pCO2, Venous 39.9 Low mmHg pO2, Venous 41.6 mmHg Base Excess, Venous 4.4 High mmol/L Hemoglobin, Whole Blood 12.8 g/dL Oxyhemoglobin, Venous 72.3 % total Hgb Carboxyhemoglobin, Whole Blood 2.0 High % total Hgb Methemoglobin, Whole Blood 0.4 % total Hgb Reduced Hemoglobin, Venous 25.3 % total Hgb O2 Content, Venous 13.0 %vol Bicarbonate, Whole Blood 28.5 mmol/L Radiology Reports (Last 300 days) 10/03/[address] PULMONARY EMBOLUS W CONTRAST Final result Details Impression: IMPRESSION: 1. Compared to a CT chest with contrast dated 08/29/2023, interval improvement in patches of infiltrate within each lung. Mild residual patches of infiltrate within the periphery of each lung. 2. No pleural fluid collection. 3. Compared to 10/01/2019, once again noted are peripheral areas of chronic interstitial fibrosis within each lung. THIS DOCUMENT HAS BEEN ELECTRONICALLY SIGNED BY REAGAN BASS MD 10/03/231812 XR CHEST 2 VIEWS Final result Details Impression: IMPRESSION: Extensive chronic interstitial markings are unchanged with superimposed parenchymal consolidation not excluded . Assessment and Plan IMPRESSION: Principal Problem: Acute on chronic respiratory failure with hypoxia (HCC) Active Problems: Acute on chronic heart failure (HCC) Pulmonary HTN (HCC) Acute combined systolic and diastolic CHF, NYHA class 1 (HCC) Positive D dimer Elevated troponin Prolonged QT interval CARLOTA (acute kidney injury) (HCC) Chronic hyponatremia Atrial fibrillation (HCC) Generalized weakness Resolved Problems: * No resolved hospital problems. * DIFFERENTIAL AND PLAN: Admit inpatient, telemetry Acute on chronic respiratory failure with hypoxia in the setting of acute on chronic decompensated systolic and diastolic heart failure with HOCM, pulmonary hypertension, mild aortic stenosis and supplemental oxygen dependence. -as per HPI -respiratory driven protocol -cardiac echo 08/30/2023 suggested EF of 60% with dynamic left ventricular outflow tract obstruction at rest. Diffuse right ventricular hypokinesis. Severe tricuspid regurgitation and moderate aorticstenosis. -chest x-ray and CTPE as noted above -bilateral lower extremity pitting edema -oxygen titration greater than 92% -heart failure quality measures -daily weights -Laws catheter -strict I&Os -1 dose 25% IV albumin to be administered before IV lasix -20 mg IV Lasix now, followed by 20 mg IV twice daily. Hold torsemide for now and restart when medically appropriate. -continue [employer] medications -heart healthy, 1800 mL fluid restricted diet -monitor electrolytes -consider repeating cardiac echo for therapy guidance -consider cardiology consult Positive D-dimer -CTPE negative -venous Dopplers for the morning due to bilateral lower extremity leg swelling positive D-dimer Elevated troponin in the setting of CAD, acute on chronic decompensated systolic and diastolic heart failure and prolonged QTC -denies chest pain, admits to shortness of breath -EKG with atrial fibrillation at 60 beats per minute and an age-indeterminate septal infarct and age-indeterminate inferior infarct. T-wave inversions in the lateral leads and a prolonged QT. -cardiac echo 08/30/2023 as noted above -initial high sensitivity troponin of 38 with follow-up 37 -appears to be chronically elevated with arranged from the 20s to 30s -trend troponin until peak or down trending -monitor electrolytes -lipid panel -potentially demand ischemia -consider cardiology consult Acute kidney injury -greater than 0.3 mg/dL worsening of renal function -baseline renal function creatinine 1.0 GFR 55 -current renal function BUN 33, creatinine 1.5 and GFR 34 -unclear if this is due to CHF exacerbation versus dehydration -imaging as noted above -bilateral lower extremity pitting edema -1 dose IV albumin now due to low albumin level -40 mg IV Lasix x1 to be administered after albumin -repeat BMP at midnight -caution with over diuresis in the setting of moderate aortic stenosis -monitor electrolytes -avoid nephrotoxic agents when possible Chronic appearing hyponatremia -continue sodium tabs -currently 132 Atrial fibrillation -rate controlled -EKG as noted above -continue half strength Eliquis 2.5 mg p.o. 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 Diet: Heart healthy with 1800 mL fluid restriction GI prophylaxis: Omeprazole DVT/PE prophylaxis: Continue Eliquis 2.5 mg p.o. twice daily. Holding SCDs until DVT ruled out Code status: DNR DNI per family Patient was seen and evaluated bedside. Plan of care established in collaboration Dr. Thompson. I spent a total of 75 minutes coordinating, documenting, and providing care for this patient excluding time spent in the performance of separately billed services or time spent by another provider/QHP. PHARMACOLOGIC VTE PROPHYLAXIS: Apixaban Tabs CODE STATUS: No Code EXPECTED DISCHARGE DATE: No information available Associated attestation - Meera Thompson MD - 10/04/2023 6:30 PM EST INTERVAL HISTORY: Patient was seen and evaluated at the bedside. Patient does not complain of any chest pain Patient states that the shortness of breath that she presented with is better General: Not in acute distress HEENT: Normocephalic, atraumatic. EOMI Cardiac: Normal rhythm and rate. Systolic murmur Respiratory: Coarse breath sounds heard Abdomen: Soft flat abdomen without tenderness on palpation at all 4 quadrants. Normoactive bowel sounds Extremities: No pitting edema bilaterally noted Neuro/Psych: The patient is awake, alert and oriented to person, place, and time with normal speech. Appropriate mood and affect. ASSESSMENT Acute on chronic diastolic heart failure Acute kidney injury Hypokalemia History Hypertension Type 2 diabetes Hyperlipidemia 4.5 cm ascending aortic aneurysm Persistent atrial fibrillation on Eliquis Moderate aortic stenosis Severe mitral stenosis Severe left ventricular hypertrophy Graves disease PLAN Cardiology consultation appreciated and recommendation is that we continue with diuresis with Lasix. We will continue with 20 mg of Lasix twice daily due to soft blood pressures and I have restarted midodrine at this time. Also ordered potassium repletion and patient's serum creatinine level is improving gradually. Most likely due to cardiorenal should continue to improve. Patient has bilateral lower extremity Dopplers were negative for DVT. The patient now is back on room air at this time. documented in this encounter Procedure Notes * Michell Vaughn MD - 10/03/2023 5:45 PM ESTAssociated Order(s): EKG REASON FOR STUDY: SOB CONCLUSIONS: Atrial fibrillation Nonspecific ST and T wave differences Abnormal ECG When compared with ECG of 01-SEP-2023 05:57, Nonspecific T wave abnormality no longer evident in Inferior leads T wave inversion more evident in Lateral leads Ventricular Rate: 60 Atrial Rate: 122 QRS Duration: 104 QT/QTc: 458/458 ms P-R-T [place]: 0 : -28 : 151 degrees documented in this encounter Consult Notes * Paula Bruner DO - 10/04/2023 11:56 AM ESTAssociated Order(s): CARDIOLOGY CONSULT IP CONSULT - Cardiology [address] [id number] Name: Maria Luisa Recinos Location: [address] Date: 10/04/2023 Time: 11:57 AM E-CONSULT REQUESTING SERVICE: Medicine REASON FOR CONSULT: ADHF PRESENTING PROBLEM: Maria Luisa Recinos [facility] is seen in consultation for ADHF. Ms. Recinos is an 87 year old female with the following history: - Type 2 NSTEMI secondary to hypertensive emergency (09/2021) Cardiac cath (09/2021): Normal coronaries - Severe LVH involving septum and posterior wall with history of inducible LVOT gradient Referred to genetic counselor 06/2018 - underwent genetic testing in which no pathogenic variants were identified - Severe mitral stenosis No history of rheumatic fever - Moderate aortic stenosis - Persistent atrial fibrillation, on Eliquis - Ascending aortic aneurysm (4.5 cm) - Hypertension - Dyslipidemia - Diabetes mellitus, type 2 (diagnosed 09/2021) - Obesity - Graves disease - COVID--19 infection treated with remdesivir + Decadron (06/2023) She presented to [facility] on 10/03/2023 with worsening shortness of breath and weakness with noted drop in pulse ox to 80s at home. Associated symptom of bilateral lower extremity edema. In the ED, BP 123/87. Labs showed NTproBNP 38813, trops elevated but flat, lactate 1.1, Cr 1.5, Hgb11.7. Patient started on IV diuresis with Lasix. Recently hospitalized from 08/29/2023-09/01/2023 for influenza and suspicion of superimposed bacterialpneumonia. Treated with Tamiflu and levofloxacin. Also diagnosed with atrial fibrillation Also hospitalized from 08/19/2023-08/25/2023 for acute respiratory failure due to CHF exacerbation and CAP. She was diuresed with IV Lasix and treated with IV antibiotics. Course c/b hypotension deemedto secondary to over-diuresis. She was started on midodrine. Discharged home on Lasix 40 mg daily. Patient routinely follows with cardiology at [facility]. PAST MEDICAL HISTORY: Past Medical History: Diagnosis [...] by Rodri Jacobs MD at [facility];W/HYSTERECTOMY MO CHOLECYSTECTOMY FAMILY HISTORY: Family History Problem Relation Age of Onset Diabetes Mother Stroke Mother Heart Disorder Father 63 [place] Hypertension Brother Heart Disorder Aunt (Unspecified) [place] Heart Disorder Uncle (Unspecified) [place] Hypertension Son Hypertension Daughter SOCIAL HISTORY: Social History Tobacco Use Smoking status: Never Passive exposure: Past Smokeless tobacco: Never Tobacco comments: Parents smoked in home growing up and then work place up until 1967 Vaping Use Vaping Use: Never used Substance Use Topics Alcohol use: Not Currently Drug use: Never ALLERGIES: Amoxicillin, Gatifloxacin, and Latex PHYSICAL EXAMINATION: Most Recent Vital Signs: BP: 94 mmHg/50 mmHg (10/04/23799) Pulse: 80 (10/04/23899) Temp: 36.39 C (10/04/23799) Temp Summary: Temp Min: 35.6 C (96.1 F) Max: 36.4 C (97.5 F) SpO2: 93 % (10/04/23799) O2 flow rate: 1 L/MIN (10/04/23 0411) Supplemental O2 Delivery: Room Air, None (10/04/23799) Vital Signs Last 24 Hours: Systolic BP: Most Recent Systolic BP Av.8 mmHg Min: 94 mmHg Max: 146 mmHg Temperature: Most Recent Temperature Av C Min: 35.61 C Max: 36.39 C Pulse: Pulse Av.6 Min: 44 Max: 91 Respirations: Resp Av.7 Min: 12 Max: 23 SpO2: SpO2 Av.7 % Min: 92 % Max: 100 % LABS: Trop 38 > 37 > 39 > 43 NTproBNP 29594 Na 135 K 3.3 Mg 2.3 BUN 31 Cr 1.4 INR 1.8 WBC 9.27 Hgb 11.1 (baseline Hgb ~ 13) CARDIAC STUDIES: EKG: Atrial fibrillation TTE (08/30/2023): Interpretation Summary The examination is adequate to [...] proximal ascending thoracic aorta is mildly enlarged. Cardiac Cath (10/04/2021): Additional Findings: Normal coronary arteries by angiography CXR (10/03/2023): MPRESSION: Extensive chronic interstitial markings are unchanged with superimposed parenchymal consolidation not excluded . IMPRESSION and RECOMMENDATIONS: Acute on chronic HFpEF RV dysfunction Acute on chronic hypoxic respiratory failure Anemia CAR[place] Persistent atrial fibrillation, on Eliquis Mild to moderate Mild to moderate AI Severe MS Severe TR - Patient's symptoms likely multifactorial - combination of recent bouts of pneumonia, CHF decompensation, and possibly anemia. - Unclear if I/Os or weight accurate. If clinically not improving would suggest increasing Lasix to40 mg IV BID if BP allows. - Patient is noted to have decline in Hgb on this admission from her baseline Hgb ~ 13. Consider further evaluation. - Maintain K > 4.0 and Mg > 2.0. - Strict I/Os and daily standing weights. Recommendations communicated with attending hospitalist. * Nya Goldstein OT - 10/04/2023 9:44 AM ESTAssociated Order(s): ADULT OCCUPATIONAL THERAPY CONSULT IP GENERAL EVALUATION - Occupational Therapy [address] [address] Name: Maria Luisa Recinos Location: [facility] ACU-232/02 Date: 10/04/2023 Time: 9:45 AM Maria Luisa Recinos is a 87 year old female. Patient Status: Inpatient Insurance: Payor: MEDICARE Plan: MEDICARE A AND B Product Type: *No Product type* Payor: [facility] ([facility] [facility]) Plan: [employer] MEDICARE SUPPLEMENT Product Type: *No Product type* Patient Seen: at bedside, nursing cleared patient for therapy Patient Identified By: Name, ID Band and Date Diagnosis: Acute on Chronic Respiratory failure with Hypoxia (10/04/23823) Status of treatment: Evaluation completed (10/04/23823) Orders: OT evaluation and treatment (10/04/23823) Weight Bearing Status: Weight bearing as tolerated (10/04/23823) Precautions: Alarms;Falls;Safety;Skin (10/04/23823) Total Treatment Time: 12 (4713-9275) (10/04/23823) Past Medical History: Past Medical History: Diagnosis Date AAA (abdominal aortic aneurysm) ([facility]) Acute combined systolic and diastolic CHF, NYHA [...] by Rodri Jacobs MD at [facility];W/HYSTERECTOMY MO CHOLECYSTECTOMY Social History/Disposition Lives with: Alone (10/04/23823) Assistance available: Yes (son and daughter live close by) (10/04/23823) Dwelling type: Single story home (10/04/23823) Entry steps: 1 (10/04/23823) Inside steps: None (10/04/23823) Bedroom location: 1st floor (10/04/23823) Bath location: 1st floor full bath (10/04/23823) Prior Level of Function Reported by: Patient (10/04/23823) Ambulation: Ambulatory with device (10/04/23823) Ambulatory Device: Rolling walker (10/04/23823) Grooming: Independent (10/04/23823) Bathing: Independent (10/04/23823) Dressing: Independent (10/04/23823) Feeding: Independent (10/04/23823) Toileting: Independent (10/04/23823) Meal Prep: Independent (10/04/23823) Homemaking: Assistance (10/04/23823) Shopping: Assistance (10/04/23823) Medication Management: Assistance (10/04/23823) Money Management: Assistance (10/04/23823) Occupation/Leisure Skills: Retired (10/04/23823) Driving: No (10/04/23823) Durable Medical Equipment at home: Shower chair;Grab bars (10/04/23823) Subjective: Patient agreeable to participate in skilled occupational therapy services this morning. Pain: No complaints of pain Observations Consciousness: Alert;Eyes open (10/04/23823) Orientation: Oriented times 4 (10/04/23823) Psychosocial: Patient can converse in a social setting;Patient can communicate basic needs (10/04/23823) Sitting posture: Forward head;Rounded shoulders (10/04/23823) Standing posture: Forward head;Rounded shoulders (10/04/23823) Safety awareness: The Patient verbalizes insight of current deficits.;The Patient demonstrates carryover of insight during functional tasks.;The Patient can communicate basic needs. (10/04/23823) Other Findings Endurance: Sitting tolerance;Good;Standing tolerance;Functional activity;Fair (10/04/23823) Current Functional Status: Bilateral Upper Extremity Hand Dominance: Right (10/04/23823) Range of Motion: WFL (10/04/23823) Strength Assessment: WNL (10/04/23823) Self Care Able to provide self care: Yes (10/04/23823) Feeding: Modified Independent (10/04/23823) Functional Ambulation Assistive Device: Rolling walker (10/04/23823) Distance in feet:: 40 (20x2) (10/04/23823) Level of Assistance: Modified Independent (10/04/23823) Bed Mobility Supine-Sit: Not Tested (10/04/23823) Sit-Supine: Not Tested (10/04/23823) OT Transfers Sit-Stand: Modified Independent (10/04/23823) Stand-Sit: Modified Independent (10/04/23823) Balance Sit (Static): Good (10/04/23823) Sit (Dynamic): Good (10/04/23823) Stand (Static): Good (10/04/23823) Stand (Dynamic): Fair (10/04/23823) Alarm Status Patient positioned in: Chair (10/04/23823) With: Pressure pad alarm intact and functioning and call leon in reach (10/04/23823) Patient and Family Goals: to get well and to return home Patient Education Education Topic: Role of OT;Plan of care goals;Energy conservation;Deep breathing techniques (10/04/23823) Review of Precautions: Safety;Skin;Energy conservation;Fall (10/04/23823) Review of Exercises: Verbal Exercises Provided (10/04/23823) Method of Education: Verbalized to patient (10/04/23823) Education Provided to: Patient (10/04/23823) Response to Education: Receptive and agreeable to education (10/04/23823) Barriers to learning: None (10/04/23823) Preferred learning method: Combination (10/04/23823) Treatment Provided: Evaluation Moderate Complexity 12 minutes - 81339: Patient was cooperative and pleasant during treatment session. Moderate complexity evaluation performed and 3-5 activity limitations were identified, including functional mobility deficit, bed mobility deficit, decreased strength, and decreased endurance. Minimal or moderate modification of the functional task was necessary tocomplete the evaluation. Deficits Requiring O.T. Treatment: Deficits requiring O.T. treatment needs: ADL/self-care;Functional mobility;Safety;Weakness (10/04/23823) Goals: Bathing: Upper: modified independent (100% with device and additional time). Lower: modifiedindependent (100% with device and additional time) Dressing: Upper: modified independent (100% with device and additional time). Lower: modified independent (100% with device and additional time). Bed Mobility with: Supine to Sit: modified independent (with device or slow) Sit to supine: modified independent (with device or slow). Transfers with: Sit to Stand: modified independent (with device or slow) Stand to Sit: modified independent (with device or slow). Functional Ambulation: level of Assistance: modified independent (100% with device and additional time) . Demonstrates Grooming at modified independent (100% with device and additional time). Demonstrates toileting at modified independent (100% with device and additional time) Goal Time Frame: 1-3 Sessions Assessment: Patient reports she just had a recent stay at [facility] after she was recovering fromCovid and Pneumonia. Patient reports she was home for about a week before she had onset of increased SOB with activity and while at rest. Patients kids took her to the ED for further evaluation. Patient currently sitting and resting on room air at >90% O2 NC. Patient completed sit-stand with HODA and ambulated a total of 40ft within the room and with use of RW and MOD I. Patient desat to 84% once returned to chair. Patient was then placed on 2L O2 NC and quickly returned to >90% O2 NC. Patient was educated on deep breathing techniques and energy conservation techniques to utilize during hospital stay and while at home. Patient reports utilizing the energy conservation techniques at home as her kids have established increased support via organizing different areas within the home toreduce energy expenditure such as during meal preparation keeping common items closer together and on a lower shelf rather than reaching up and down to gather ingredients and general food items. Patients son has placed grab bars throughout her home as well as placed a bed rail to assist with patients transfers in and out of bed. Patient may benefit from continued occupational therapy services to increase overall strength and endurance to maximize independence with ADLs prior to discharge. Wouldconsider post-acute care services which may include home health services or outpatient rehab. The level of care will be determined in collaboration with the patient, family/caregiver, and care team members. Treatment Plan: Energy Conservation, Safety, Functional Ambulation, Upper extremity strengthening, and Endurance Anticipated Frequency (on eval): 1 to 3 times per week (10/04/23823) AM-PAC Help From Another Person Eating Meals: None (10/04/23823) Help From Another Person Taking Care of Personal Grooming: None (10/04/23823) Help From Another Person To Put On/Take Off Upper Body Clothing: None (10/04/23823) Help From Another Person To Put On/Take Off Lower Body Clothing: A little (10/04/23823) Help From Another Person Toileting: A little (10/04/23823) Help From Another Person Bathing: A little (10/04/23823) OT AM-PAC Score: 21 (10/04/23823) OT AM-PAC t-Scale Score: 44.27 (10/04/23823) HLM (Highest Level of Mobility) Goal: Level 7 walk 25 feet or more (10/04/23823) [id number] * Trenton Abraham, PT - 10/04/2023 8:24 AM ESTAssociated Order(s): ADULT PHYSICAL THERAPY CONSULT IP GENERAL EVALUATION - Physical Therapy [place] [id number] [facility] [id number] Name: Maria Luisa Recinos Location: [facility] ACU-232/02 Date: 10/04/2023 Time: 9:44 AM Maria Luisa Recinos is a/an 87 year old female. Patient Status: Inpatient Insurance: Payor: MEDICARE Plan: MEDICARE A AND B Product Type: *No Product type* Payor: [employer] [place] ([place]) Plan: [employer] MEDICARE SUPPLEMENT Product Type: *No Product type* Patient Seen: at bedside, nursing cleared patient for therapy Patient Identified By: Name, ID Band and Date Diagnosis: acute on chronic respiratory failure (10/04/23823) Status of treatment: Evaluation completed (10/04/23823) Orders: PT evaluation and treatment (10/04/23823) Weight Bearing Status: Weight bearing as tolerated (10/04/23823) Precautions: Oxygen;Safety (10/04/23823) Past Medical History: Past Medical History: Diagnosis [...] by Rodri Jacobs MD at [facility];W/HYSTERECTOMY MO CHOLECYSTECTOMY Subjective: Maria Luisa is seen in room and is found awake, in recliner chair, willing to participate. She is sitting comfortably on room air and SPO2 = 89% at start of treatment. Social History/Disposition Lives with: Alone (10/04/23823) Assistance available: Yes (son and daughter live close by) (10/04/23823) Dwelling type: Single story home (10/04/23823) Entry steps: 1 (10/04/23823) Inside steps: None (10/04/23823) Bedroom location: 1st floor (10/04/23823) Bath location: 1st floor full bath (10/04/23823) Prior Level of Function Ambulation: Ambulatory with device (10/04/23823) Ambulatory Device: Rolling walker (10/04/23823) Devices at home: Rolling walker;Grab bars (10/04/23823) Observations Consciousness: Alert (10/04/23823) Orientation: Oriented times 4 (10/04/23823) Psychosocial: Patient can communicate basic needs;Patient can converse in a social setting (10/04/23823) Sitting Posture: Forward head;Rounded shoulders (10/04/23823) Standing Posture: Forward head;Rounded shoulders (10/04/23823) Pain: No complaints of pain during treatment. Range of Motion Range of Motion: WFL (10/04/23823) Strength Assessment Strength Assessment: WNL (functional for transfers and ambulation) (10/04/23823) P.T. Bed Mobility Supine-Sit: Not Tested (10/04/23823) Sit-Supine: Not Tested (10/04/23823) Transfers Sit-Stand: Modified Independent (10/04/23823) Stand-Sit: Modified Independent (10/04/23823) W/C-Bed/Mat: Modified Independent (10/04/23823) Ambulation: Distance ambulated (feet): 40' with slow pace and focus on pursed lip breathing. Walked on room andand SpO2 was 90% at end of walk but then after sitting down SpO2 dropped to 84% at which point she was given O2 @ 2L/min and within 30 seconds her SpO2 was increased to 92%. After a few minutes, O2 removed and SpO2 remained at >90% Assistive Device: Rolling walker Assist: Modified Independent Balance Sit (Static): Normal (10/04/23823) Sit (Dynamic): Good (10/04/23823) Stand (Static): Good (10/04/23823) Stand (Dynamic): Good (10/04/23823) Patient and or Family Goal(s): to get well and to return home Patient Education Safety Awareness: Patient verbalizes insight of current deficits;Patient demonstrates carryover of insight during functional tasks;Patient can communicate basic needs (10/04/23823) Topic of Education: Breathing techniques, Safety with mobility, and Use of assistive device Method of Education: Verbal discussion and explanation provided to patient: demonstrated the exercise and or task Treatment Provided: Evaluation Moderate Complexity 12 minutes - 38967: Patient was cooperative, pleasant, and motivated during treatment session. Moderate complexity evaluation performed and 1-2 personal factors or comorbidities were identified that will impact plan of care, including lives alone at home and cardiac history. Patient presents with limitations in endurance, which will impact plan of care. These limitations will be addressed by the goals set for this patient. Alarm Status Patient positioned in: Chair (10/04/23823) With: Pressure pad alarm intact and functioning and call leon in reach (10/04/23823) Treatment Status: Treatment at bedside (10/04/23823) Goals: Demonstrate Ambulation: assistive device: rolling walker distance in feet: 90' or greater for functional household distances level of assistance on level surface: modified independent (with device or slow) Demonstrate Stairclimbing: Number of steps: 1 step up/down, using walker, and Level of Assistance: modified independent (with device or slow) Time Frame: 1-2 treatment Assessment: Maria Luisa is an 87 y.o. female who lives alone and is admitted with acute respiratory failure. She has good mobility and having recently been discharged from intermediate, she is mindful of breathing techniques and safety in her home. Maria Luisa has some endurance deficits and would benefit from skilled PT services to work to improve her endurance and ensure safety with her mobility. Would consider home with post-acute care services which may include outpatient therapy or home based therapy to work to maximize her endurance and conditioning. The level of care will be determined in collaboration with the patient, family/caregiver, and care team members. Equipment Needs: none identified at present Treatment Plan: Gait training and Elevation training AM PAC Score with Stairs: 23 08:24 - 08:36 documented in this encounter Nursing Notes * Mikala Calero RN - 10/05/2023 6:29 PM EST VIRTUAL RN [facility] [address] [facility] [id number] Name: Maria Luisa Recinos [address] Date: 10/05/2023 Time: 6:29 PM I completed the Discharge Navigator. The patient was in the hospital. I was in a private office space at a [facility] location. After connecting through [employer], the patient was identified by name and date of and / or wristband checked. Patient (or authorized legal asset protection representative) was then in formed that this was a Virtual Nurse visit and was being conducted confidentially over secure lines. My office door was closed. No one else was in the room with me. Patient acknowledged consent and understanding of privacy and security of the Virtual Nurse visit. I presented the opportunity for thepatient or authorized legal asset protection representative to ask any questions regarding the visit today. The patient or authorized legal asset protection representative agreed to participate. Daughter Bre in room and reviewed medication and appointments with her. All questions answered to satisfaction * Hugo Smith RN - 10/05/2023 10:05 AM EST Laws catheter discontinued per orders without any difficulties. * Severo Williamson RN - 10/04/2023 12:39 AM EST This nurse was given a medication list brought in by pt to complete pt's home med rec, and list didnot state which eye(s) the eye drops were for. Primary nurse Tania asked to verify with pt whicheyes needed the drops. Provider made aware of same. * Severo Williamson RN - 10/03/2023 9:47 PM EST VIRTUAL RN [facility] [address] [facility] [id number] Name: Maria Luisa Recinos Location: [facility] MH2 ACU-232/02 Date: 10/03/2023 Time: 9:47 PM I completed the Admission Navigator. The patient was in the hospital. I was in a private office space at a [facility] location. After connecting through [employer], the patient was identified by name and date of and / or wristband checked. Patient (or authorized legal asset protection representative) was then in formed that this was a Virtual Nurse visit and was being conducted confidentially over secure lines. My office door was closed. No one else was in the room with me. Patient acknowledged consent and understanding of privacy and security of the Virtual Nurse visit. I presented the opportunity for thepatient or authorized legal asset protection representative to ask any questions regarding the visit today. The patient or authorized legal asset protection representative agreed to participate. documented in this encounter ED Notes * Arden River MD - 10/03/2023 5:19 PM EST HISTORY OF PRESENT ILLNESS Maria Luisa Recinos is a 87 year old female who presents to the ED for evaluation of Short of Breath. The patient was seen at 10/03/23 1707. Patient presents accompanied by family for evaluation of shortness of breath. Patient reports that starting last night she began feeling short of breath. She called her son who came to her home and checked her pulse ox and got a reading of 80% on room air. They had oxygen in the home from a previous home health visit and placed her on 2 L nasal cannula with improvement in her saturations at home. She has been coughing up brown sputum for the last 2 days. She has not been having any fevers. She denies chest pain. She notes that she lost her voice today. She d enies abdominal pain or distention. She states she has not missed any of her medications recently. She states her weight has been stable. She was discharged from a intermediate facility about a week ago. She was there for physical therapy and occupational therapy after having pneumonia, COVID, the flu. She was discharged home without prescription for supplemental oxygen. She states that for the last week she has been having progressively worsening dyspnea on exertion and now has shortness ofbreath at rest. He feels generally fatigued. DNR/DNI per patient and family The patient's allergies, past history, and medications were reviewed. PHYSICAL EXAM Initial Vitals (see all): BP 123/87 | Pulse 69 | Resp 20 | Temp 96.6 | O2 92 %, Nasal Cannula | Weight 89.9 kg | Height 154.9cm | BMI 37.47 kg/m2 Initial Pain Assessment (see all): 0 (no pain)/10 ([facility] Adult Scale 0-10) Physical Exam Constitutional: Appearance: She is ill-appearing. She is not toxic-appearing. HENT: Head: Normocephalic and atraumatic. Mouth/Throat: Pharynx: Oropharynx is clear. Comments: Dry mucous membranes Eyes: Extraocular Movements: Extraocular movements intact. Pupils: Pupils are equal, round, and reactive to light. Neck: Vascular: Hepatojugular reflux and JVD present. Cardiovascular: Rate and Rhythm: Normal rate and regular rhythm. Pulses: Normal pulses. Heart sounds: Normal heart sounds. Pulmonary: Effort: Pulmonary effort is normal. Comments: Fine crackles in the bases bilaterally Chest: Chest wall: No mass or tenderness. Abdominal: General: Bowel sounds are normal. Palpations: Abdomen is soft. Tenderness: There is no abdominal tenderness. Musculoskeletal: General: Normal range of motion. Cervical back: Normal range of motion. Right lower leg: Edema (Pitting to knee) present. Left lower leg: Edema (Pitting to knee) present. Skin: General: Skin is warm and dry. Capillary Refill: Capillary refill takes less than 2 seconds. Neurological: General: No focal deficit present. Mental Status: She is alert and oriented to person, place, and time. Psychiatric: Mood and Affect: Mood normal. Behavior: Behavior normal. PROCEDURES AND TREATMENTS ED Orders | ED Results MEDICAL DECISION MAKING Nursing notes and vital signs were reviewed. ED consults were placed. ED Course as of 10/04/23 0940 Tue Oct 03, 2023 1852 D-Dimer(!) Ddimer elevated, will proceed with CT PE [IC] 1900 CBC with WBC Differential(!) No leukocytosis, mild anemia with hemoglobin of 11.7, no thrombocytopenia [IC] 1900 Blood Gas, Venous(!) Mild respiratory alkalosis [IC] 1900 Troponin T, High Sensitivity(!) Mildly elevated at 38 in the setting of acute kidney injury, will repeat [IC] Wed Oct 04, 2023 0935 INR(!): 1.9 [IC] 0935 BNP, NT-Pro(!): 12,610 [IC] 0935 Comprehensive Metabolic Panel(!) Acute kidney injury, electrolytes grossly unremarkable, mild reduction albumin at 3.3, mild elevation of AST at 44, otherwise unremarkable hepatic function panel [IC] 0937 EKG demonstrates atrial fibrillation at a rate of 60, nonspecific ST changes in the lateral leads noted, mild ST depression in lead 2 noted, compared to prior EKG from September 01, 2023 ST depressions in the lateral leads are more pronounced, otherwise no significant morphological changes noted[IC] ED Course User Index [IC] Arden River MD Differential Diagnoses Based on my history, physical exam, and evaluation, the differential includes, but is not limited, to the following diagnoses: CHF exacerbation, pleural effusion, pulmonary edema, pulmonary fibrosis,pneumonia, hypercarbia, hypoxic respiratory failure, viral illness, PE, ACS. 87-year-old female who presents for evaluation of shortness of breath and new oxygen requirement of2 L. on exam she has evidence of peripheral volume overload. Laboratory studies significant as documented above. Chest x-ray demonstrates findings concerning for pulmonary fibrosis versus atypical inf ection. D-dimer returned elevated for which a CT PE study was ordered. Patient's case was signed out to Dr. Johnson pending results of the CT PE and discussion with the hospitalist team for admission Amount and/or Complexity of Data Reviewed Labs: ordered. Decision-making details documented in ED Course. Radiology: ordered. ECG/medicine tests: ordered. Risk Prescription drug management. Decision regarding hospitalization. Clinical Impressions SOB (shortness of breath) Heart failure (HCC) Disposition Admitted. I discussed the management of this patient with the admitting provider and I made a decision to admit the patient. Admission Order Ordered Status . 10/03/232011 Admit for Inpatient Services (incl ZPO) ONCE Completed Arden River documented in this encounter Miscellaneous Notes * Ancillary Progress Note - Imani Harris BSW - 10/05/2023 12:45 PM EST CARE MANAGEMENT - ADULT DISCHARGE NOTE [facility] [address] [facility] [address] Name: Maria Luisa Recinos Location: [address] Date: 10/05/2023 Time: 12:45 PM The following coordination of care and discharge plan has been coordinated with the care team, patient, family and/or caregiver according to the patients needs and preferences. Discharge Discharge Second Notice Important Message from Medicare delivered: No (10/05/23 1241) Discharge Transportation: Family/Friends drive (10/05/23 1241) Date of scheduled discharge transportation: 10/05/23 (10/05/23 1241) Time of scheduled discharge transportation: 1430 (10/05/23 1241) Patient declined post-hospital transition of care recommendation: N/A (10/05/23 1241) Final Discharge Plan (Complete only at time of Discharge): Home with Services (10/05/23 1242) Home Medical Care - Admitted Since 10/03/2023 Service Provider Selected Services Address Phone Fax Patient Preferred Last Updated [facility] [address] [place] [address] [address], [place] [address] [phone] -- Imani Harris BSW 10/05/2023 1240 Per discussion with Hospitalist, pt is slated to DC home this date with no new needs identified by the Tx Team for junior underwriter to arrange. Pt is expected to resume home health with [facility] whereas pt received SN/PT. Environmental Health Nurse contacted same and spoke with Mckayla in order to inform of DC and to request resumption of services. Pt is expected to resume home DME of Cane/RW/SC/Bed rails upon DC. Pt is expected to resume home oxygen provided by [facility] upon DC. Pt is aware of the DC plans and is in agreement with same. Environmental Health Nurse will continue to follow for any additional DC needs not yet identified. * Ancillary Progress Note - Katt Gresham PTA - 10/05/2023 10:38 AM EST PROGRESS NOTE - Physical Therapy [facility] [address] [facility] [id number] Name: Maria Luisa Recinos Location: [place] [address] ACU-232/02 Date: 10/05/2023 Time: 11:20 AM Maria Luisa Recinos is a/an 87 year old female. Patient Status: Inpatient Insurance: Payor: MEDICARE Plan: MEDICARE A AND B Product Type: *No Product type* Payor: Medicalis [facility] Zettaset) Plan: [employer] MEDICARE SUPPLEMENT Product Type: *No Product type* Patient Seen: at bedside, nursing cleared patient for therapy Patient Identified By: Name, ID Band and Date Diagnosis: acute on chronic respiratory failure (10/05/23 1038) Status of treatment: Treatment completed (10/05/23 1038) Orders: PT evaluation and treatment (10/05/23 1038) Weight Bearing Status: Weight bearing as tolerated (10/05/23 1038) Precautions: Oxygen;Safety (10/05/23 1038) Total Treatment Time--free text: 16 (10/05/23 1038) Subjective: Pt reported that she would like to get up and walk. Pt was agreeable to try a 4" box step today. Pt reported that she needs to do stairs to get into her hair dressers. Pain: No complaints of pain P.T. Bed Mobility Supine-Sit: Not Tested (10/04/23823) Sit-Supine: Not Tested (10/04/23823) Transfers Sit-Stand: Modified Independent (10/05/23 1038) Stand-Sit: Modified Independent (10/05/23 1038) W/C-Bed/Mat: Modified Independent (10/04/23823) Ambulation: Distance ambulated (feet): 50'x2 Assistive Device: Rolling walker Assist: Modified Independent Stair Training: Number of stairs: 4 Number of handrails: 1 L side Level of Assistance: contact guard Balance Sit (Static): Normal (10/05/23 1038) Sit (Dynamic): Good (10/05/23 1038) Stand (Static): Good (10/05/23 1038) Stand (Dynamic): Good (10/05/23 1038) Patient and or Family Goal(s): to get well Topic of Education: Breathing techniques and Safety with mobility Method of Education: Verbal discussion and explanation provided to pt: verbalized understanding andor agreement of this information and demonstrated the exercise and or task Treatment Provided: Gait Training 16 minutes: gait training with rolling walker Alarm Status Patient positioned in: Chair (10/05/23 1038) With: Pressure pad alarm intact and functioning and call leon in reach (10/05/23 1038) Patient Education Safety Awareness: Patient verbalizes insight of current deficits;Patient demonstrates carryover of insight during functional tasks;Patient can communicate basic needs (10/04/23823) Assessment: Pt mobility and SOB are both improving. Pt was able to ambulate without feeling SOB. Ptwalked 50'x2 and 20'x1. Pt also attempted to do step ups on 4" box this was easy for pt so pt attempted the stairs. Pt was able to ascend 4 steps with L hand railing. Pt would use both UE on the railing and go up in a turned position but not completely sideways. Pt then rested at the top of the stairs and descended in the same way. Pt was CGA for safety although did well and needed no assistance.Supervising PT would recommends home with post-acute care services which may include outpatient therapy or home based therapy to work on maximizing endurance/conditioning. Plan: Continue with current treatment plan established on evaluation. AM PAC Score with Stairs: 23 Total Time: [id number] * Ancillary Progress Note - Rakesh Sage OT - 10/05/2023 10:09 AM EST PROGRESS NOTE - Occupational Therapy [facility] [address] [place] [phone] Name: Maria Luisa Recinos Location: [place] [address] ACU-232/02 Date: 10/05/2023 Time: 10:09 AM Maria Luisa Recinos is a 87 year old female. Patient Status: Inpatient Insurance: Payor: MEDICARE Plan: MEDICARE A AND B Product Type: *No Product type* Payor: [facility] Plan: [employer] MEDICARE SUPPLEMENT Product Type: *No Product type* Patient Seen: at bedside, nursing cleared patient for therapy Patient Identified By: Name, ID Band and Date Diagnosis: Acute on Chronic Respiratory failure with Hypoxia (10/05/23932) Status of treatment: Treatment completed (10/05/23932) Orders: OT evaluation and treatment (10/05/23932) Weight Bearing Status: Weight bearing as tolerated (10/05/23932) Precautions: Alarms;Falls;Safety;Skin (10/05/23932) Total Treatment Time: 17 (10/05/23932) Subjective: patient doing well overall Pain: No complaints of pain Observations Consciousness: Alert;Eyes open (10/04/23823) Orientation: Oriented times 4 (10/04/23823) Psychosocial: Patient can converse in a social setting;Patient can communicate basic needs (10/04/23823) Sitting posture: Forward head;Rounded shoulders (10/04/23823) Standing posture: Forward head;Rounded shoulders (10/04/23823) Safety awareness: The Patient verbalizes insight of current deficits.;The Patient demonstrates carryover of insight during functional tasks.;The Patient can communicate basic needs. (10/04/23823) Other Findings Endurance: Sitting tolerance;Good;Standing tolerance;Functional activity;Fair (10/04/23823) Current Functional Status: Activities of Daily Living: Self Care Able to provide self care: Yes (10/04/23823) Feeding: Modified Independent (10/04/23823) Grooming: Supervision (Please comment) (10/05/23932) Functional Ambulation Assistive Device: Rolling walker (10/05/23932) Distance in feet:: 25 (10/05/23932) Level of Assistance: Modified Independent (10/05/23932) Bed Mobility Supine-Sit: Not Tested (10/04/23823) Sit-Supine: Not Tested (10/04/23823) OT Transfers Sit-Stand: Modified Independent (10/05/23932) Stand-Sit: Modified Independent (10/05/23932) Balance Sit (Static): Good (10/05/23932) Sit (Dynamic): Good (10/05/23932) Stand (Static): Good (10/05/23932) Stand (Dynamic): Good (10/05/23932) Patient Education Education Topic: Role of OT;Plan of care goals;Energy conservation;Deep breathing techniques (10/04/23823) Review of Precautions: Safety;Skin;Energy conservation;Fall (10/04/23823) Review of Exercises: Verbal Exercises Provided (10/04/23823) Method of Education: Verbalized to patient (10/04/23823) Education Provided to: Patient (10/04/23823) Response to Education: Receptive and agreeable to education (10/04/23823) Barriers to learning: None (10/04/23823) Preferred learning method: Combination (10/04/23823) Alarm Status Patient positioned in: Chair (10/05/23932) With: Call leon in reach (10/05/23932) Treatment Provided: Therapeutic Activity: 17 minutes Upper Extremity exercise Demonstrate Exercises: LUE;RUE;Shoulder;Elbow;1 set of 10;Flexion;Extension;Abduction;Adduction;Internal/external rotation (10/05/23932) Deficits requiring O.T. treatment needs: ADL/self-care;Functional mobility;Safety;Weakness (10/05/23932) Assessment: patient did well with UE exercises and ambulating to the bathroom for brushing her hair. Oxygen at 93-94% on room air during session. Plan: Functional Ambulation, Transfer training, ADL training, and Endurance Anticipated Frequency (on eval): 1 to 3 times per week (10/05/23932) Equipment Equipment used in Therapy: Rolling walker (10/04/23823) AM-PAC Help From Another Person Eating Meals: None (10/05/23932) Help From Another Person Taking Care of Personal Grooming: None (10/05/23932) Help From Another Person To Put On/Take Off Upper Body Clothing: None (10/05/23932) Help From Another Person To Put On/Take Off Lower Body Clothing: A little (10/05/23932) Help From Another Person Toileting: A little (10/05/23932) Help From Another Person Bathing: A little (10/05/23932) OT AM-PAC Score: 21 (10/05/23932) OT AM-PAC t-Scale Score: 44.27 (10/05/23932) HLM (Highest Level of Mobility) Goal: Level 7 walk 25 feet or more (10/05/23899) Treatment time 17 mins * Care Plan - Piper Freeman RN - 10/05/2023 5:08 AM EST Clinical Goal(s): pt will have adequate urine output, via laws catheter, this shift (10/04/231999) Possible barriers to meeting goal(s)/advancing plan of care: risk for impaired urinary output Stability of the patient: Moderately stable - low risk of patient condition declining or worsening Summary regarding today's goal(s): Met: Recommendations: continue laws catheter and continue to monitor I/Os. * Care Plan - Britney Randolph RN - 10/04/2023 5:26 PM EST Clinical Goal(s): Patient will remain free of fall and injury. (10/04/23699) Possible barriers to meeting goal(s)/advancing plan of care: Generalized weakness Stability of the patient: Moderately stable - low risk of patient condition declining or worsening Summary regarding today's goal(s): Met: Goal met Recommendations: Continue PT/OT * Ancillary Progress Note - iFor Sousa RN - 10/04/2023 11:44 AM EST CARE MANAGEMENT - ADULT INITIAL SCREENING [place] [address] [facility] [phone] Name: Maria Luisa Recinos Location: [place] [address] ACU-232/02 Date: 10/04/2023 Time: 11:44 AM Discussed patient with the interdisciplinary care team. This Marine Steam Fitter Helper performed a chart review and met with Pt at bedside to complete admission screen and assessed needs for transition planning. The managed care coordinator role and services were explained and emotional support was provided. Chief Complaint: Short of Breath Pts medical decision maker has been identified a being daughter, Betty who is involved in her care. Per review of the medical record, pt has no admitting MH Dx. Pts primary pharmacy has been identified as being [facility] in [place]. Pt describes having an intact family support [...] DC. Pt reports home oxygen provided by [facility] prior to admission and is expected to resume upon DC. Pt is active with [facility] prior to admission and is expected to resume upon DC. Pt reports she is able to cook and do her own ADL's prior to admission. Pt reports family drives her to appointments. Prior Living Arrangements What was your living situation prior to admission/observation?: Independently (10/03/232106) Living Quarters: House (10/04/231120) Number of steps to enter living quarters:: 2 (10/04/23 112) Do you have serious difficulty walking or climbing stairs? (5 years old or older): Yes (10/03/232106) History of falling: No (10/03/232299) Prior Level of Functioning Describe the patient's ability prior to admission/observation to perform ADLs: Performs independently (10/03/232106) Describe the patient's mobility status prior to admission: Patient ambulates independently (10/03/232106) Patient uses assistive device: Yes (10/03/232106) If yes, choose:: Walker (10/03/232106) Caregiver Information Patient Contacts Name Relation Home Work Mobile Betty Price Adult Child [phone] Juan Pablo Recinos Adult Child [phone] Risk Stratification/Psychosocial/Care Gaps Risk Stratification Psycho Social / Medical Concerns Identified: Adjustment to illness/injury;Multiple Comorbidities (10/04/231120) Accessed Neighborly to connect patients to social care resources: No (10/04/231120) OBRA or OPTIONS needed for placement: No (10/04/231120) Readmission Risk Score: 33.43 (10/04/23800) AM-PAC Score With Stairs : 23 (10/04/23823) Prior to Admission Services Services Prior to Admission ASSOCIATE PROFESSOR OF HISTORY Services (Services received within the last 30 days with exception, Psych within last two years): Home Health (10/04/231120) List All Provider/Service Name: [facility] (10/04/231120) Agency contacted: Yes (10/04/231120) Spoke with - Comment: Aleksandr at [facility] [phone] (10/04/231120) [place] Dept[employer]ging (PDA) Waiver Program: N/A (10/04/231120) ASSOCIATE PROFESSOR OF HISTORY Transportation (Services received within the last 30 days): Family/Friends Personal Vehicle (10/04/231120) Outpatient Marine Steam Fitter Helper: No care meat team lead to display Patient/Family Expectations: home when medically cleared Tentative DC plan: Once deemed Medically appropriate, it's anticipated pt will DC home pending continued Medical workup/evaluations and findings. Pt is expected to resume home health with [facility] upon DC. Pt is expected to resume home DME of Cane/RW/SC/Bed rails upon DC. Pt is expected to resume home oxygen provided by [facility] upon DC. The Tx Team will meet daily in order to discuss DC planning/needs. Environmental Health Nurse will continue to follow for any identified needs and/or concerns which may arise. For further screening information, please refer to the Care Management flow document. * Communication - Tania Garcia RN - 10/03/2023 10:56 PM EST Patient at bedside.20mg of lasix given, provider at bedside only wanted 20mg of 40mg drawn up given. * Respiratory Progress Note - Krystle Cordova RRT - 10/03/2023 9:06 PM EST PATIENT DRIVEN PROTOCOL - Respiratory Care Services [place] [address] [facility] [phone] Name: Maria Luisa Recinos [address] Date: 10/03/2023 Time: 9:06 PM Patient Driven Protocol Summary: Initial evaluation [...] breathing and improve pulmonary gas exchange. . The patient will be re-evaluated: No [...] Sputum: A loose cough produced no sputum... CXR: .IMPRESSION IMPRESSION: Extensive chronic interstitial markings are unchanged with superimposed parenchymal consolidation not excluded . Vital Signs: Resp: 16 (10/03/232031) Pulse: 70 (10/03/232031) Temp: 35.7 C (96.3 F) (10/03/232031) BP: 136/75 (10/03/232031) SpO2: 96 % (10/03/232031) Primary Service: Hospitalists. Admitting Diagnosis: Heart failure (HCC) [I50.9] Pulmonary Diagnosis: Emphysema. Prescriptions/Home Medications/Durable Medical Equipment: Qday breo 100/ duoneb prn. Recommended New home medications/durable medical equipment/outpatient pulmonary/sleep referral no. * Communication - Tania Garcia RN - 10/03/2023 8:59 PM EST Dual Licensed Skin Assessment completed by Tania THOMAS and Juliana THOMAS. The patient is/has a N/A Skin Breakdown (includes non blanchable erythema): No * Communication - Adelina Faye RN - 10/03/2023 8:20 PM EST Hand-Off - Nurse Communication Note Name: Maria Luisa Recinos Location: [place] [address] ACU-232/02 Date: 10/03/2023 Time: 8:33 PM Nurse giving report: Adelina Faye RN Nurse receiving report: MARTHA Marin Reason for SBAR handoff: Admission Immediate Concerns: Short of breath, hypoxia SITUATION: Admission date: 10/03/2023 Chief Complaint: Short of Breath Admitting diagnosis: Heart failure (HCC) Patient Service: Hospitalists [[id number]] Level of Care: Med Surg [3] Attending Provider: Meera Thompson MD Coming From:home BACKGROUND: Primary Care Physician: Jeanna Bal PA-C Past Medical History: Diagnosis Date AAA (abdominal aortic aneurysm) (HCC) Acute combined systolic and diastolic CHF, NYHA class 1 (HCC) Aortic stenosis, mild CAD (coronary artery disease) Chronic respiratory failure (HCC) Graves disease Hypertrophic cardiomyopathy (HCC) Mixed hyperlipidemia Moderate mitral stenosis Nonrheumatic mitral valve stenosis Primary hypertension Pulmonary hypertension (HCC) Second hand smoke exposure Supplemental oxygen dependent Patient Compliant: Yes Code Status: Prior Allergies: Amoxicillin, Gatifloxacin, and Latex Problem list: Active Problems: * No active hospital problems. * Resolved Problems: * No resolved hospital problems. * Activity: ambulatory Fall Risk or Safety Concerns: Fall Risk Isolation: None Isolation flowsheet: ASSESSMENT: Vital Signs: BP: 114/76 (10/03/231999) Temp: 36.4 C (97.5 F) (10/03/231999) Pulse: 57 (10/03/231999) Resp: 14 (10/03/231999) SpO2: 97 % (10/03/231999) Weight: 88.9 kg (196 lb) (10/03/231701) Pain Assessment Flowsheet Row Most Recent Value Pain Assessment Scale isinger Adult Scale 0-10 Pain Score 0 (no pain) Fall Scale: Fall Score: 40 (10/03/231709) Neurological: Duxbury Coma Scale Eyes Open: Spontaneous (10/03/231701) Best Verbal Response: Verbally appropriate for age (10/03/231701) Best Motor Response: Obeys commands appropriate for age (10/03/231701) Coma Score: 15 (10/03/231701) Additional Neurological Information: alert and oriented Respiratory: Respiratory WNL: WNL- within normal limits (10/03/231913) Cough: Non-Productive (10/03/231913) Depth/Rhythm: Regular (10/03/231913) Dyspnea Occurance: With Exertion (10/03/231913) Effort: Unlabored (10/03/231913) O2 flow rate: 2 L/MIN (10/03/231999) Additional Respiratory Information: dyspnea with exertion, increased O2 requirement Cardiac: Additional Cardiac Information: vitals stable GI/: Additional GI/ Information: no concerns Integumentary: Additional Integumentary Information: skin warm and dry Restraints: No orders of the defined types were placed in this encounter. Medications: See MAR Lines: Treatment: Per hospital provider Labs: Labs This Encounter COMPREHENSIVE METABOLIC PANEL - Abnormal; Notable for the following components: Result Value Ref Range BUN 33 6 - 20 mg/dL Creatinine 1.5 0.5 - 1.0 mg/dL Estimated Glomerular Filtration Rate 34 >=60 mL/min Sodium 132 135 - 146 mmol/L Chloride 96 98 - 107 mmol/L Albumin 3.3 3.8 - 5.0 g/dL AST 44 10 - 35 U/L All other components within normal limits BNP, NT-PRO - Abnormal; Notable for the following components: BNP, NT-Pro 12,610 <300 pg/mL All other components within normal [...] the following components: Troponin T, High Sensitivity 38 <=14 ng/L All other components within normal limits D-DIMER - Abnormal; Notable for the following components: D-Dimer 0.62 <0.50 ug/mL FEU All other components within normal limits Narrative: Rheumatoid factor at a level above 50 IU/mL may lead to an overestimation of the D-dimer level. A normal D-dimer result (<0.50 ug/mL FEU) has a negative predictive value of approximately 95% for the exclusion of acute pulmonary embolism (PE) or deep vein thrombosis when there is low or moderate pretest PE probability. Increased D-dimer values are abnormal but do not indicate a specific diseasestate and the D-dimer increase does not definitively correlate with clinical severity of disease. PT INR - Abnormal; Notable for the following components: Prothrombin Time 21.6 11.6 - 15.2 seconds INR 1.9 0.8 - 1.2 All other components within normal limits Narrative: Warfarin Therapy INR: 2.0-3.0 conventional anticoagulation INR: 2.5-3.5 high intensity anticoagulation BLOOD GAS, VENOUS - Abnormal; Notable for the following components: pH, Venous 7.463 7.320 - 7.430 units pCO2, Venous 39.9 40.0 - 60.0 mmHg Base Excess, Venous 4.4 -2.0 - 2.0 mmol/L Carboxyhemoglobin, Whole Blood 2.0 <=1.5 % total Hgb All other components within normal limits CBC - Abnormal; Notable for the following components: HGB 11.7 12.0 - 15.3 g/dL All other components within normal limits DIFFERENTIAL, AUTOMATED - Abnormal; Notable for the following components: Lymphocytes % 13.1 18.0 - 42.0 % All other components within normal limits TROPONIN T, HIGH SENSITIVITY - Abnormal; Notable for the following components: Troponin T, High Sensitivity 37 <=14 ng/L All other components within normal limits RESPIRATORY PATHOGEN PANEL, PCR - Normal CBC WITH WBC DIFFERENTIAL Narrative: The following orders were created for panel order CBC WITH WBC DIFFERENTIAL. Procedure Abnormality Status --------- ------ CBC[[id number]] Abnormal Final result DIFFERENTIAL, AUTOMATED[[id number]] Abnormal Final result Please view results for these tests on the individual orders. Diet: No orders of the defined types were placed in this encounter. Additional Diet Information: per hospitalist Intake and Output: No intake or output data in the 24 hours ending 10/03/232032 Patient Belongings and Home Medications Patient Belongings at Bedside Belongings at Bedside: None (10/03/231708) Patient Belongings Sent Home (Does not apply to Ambulatory areas) Belongings Sent Home: None (10/03/231708) Patient Belongings Sent to Safe/Locker Belongings Sent to Safe: None (10/03/231708) Patient Medications Medications Brought by Patient?: No (10/03/231708) RECOMMENDATIONS: Consults not completed: none Anticipated tests/studies/procedures: per hospitalist Medication Reconcilliation completed for this Admission? Yes * ED Door Captain Note - Adelina Faye RN - 10/03/2023 7:20 PM EST Report received from MARTHA Roman. Pt is currently on oxygen at 4L via NC * Progress Notes - Non-Billable - Gricel Johnson MD - 10/03/2023 7:12 PM EST Maria Luisa Recinos was signed out to Gricel Johnson MD from Dr. River at 7:00 PM. Vital Signs | ED Orders | ED Results Situation & Background: 87-year-old female past medical history of pulmonary hypertension, atrial fibrillation, cardiomyopathy presenting with chief complaint of shortness of breath. Patient was found to be saturating 80% on room air. She is now requiring 2 L nasal cannula. Mild respiratory alkalosis on VBG. CBC without acute concerning findings. Mild elevation of troponin in the setting of acute kidney injury. CT PE pending. Pending admission for acute hypoxic respiratory failure. Pending Tests/Imaging: CT PE Assessment: Shortness of breath Recommendations: Admission Potential Issues: Incidental findings ED Course as of 10/04/23 0939 Tue Oct 03, 2023 1852 D-Dimer(!) Ddimer elevated, will proceed with CT PE [IC] 1900 CBC with WBC Differential(!) No leukocytosis, mild anemia with hemoglobin of 11.7, no thrombocytopenia [IC] 1900 Blood Gas, Venous(!) Mild respiratory alkalosis [IC] 1900 Troponin T, High Sensitivity(!) Mildly elevated at 38 in the setting of acute kidney injury, will repeat [IC] Wed Oct 04, 2023 0935 INR(!): 1.9 [IC] 0935 BNP, NT-Pro(!): 12,610 [IC] 0935 Comprehensive Metabolic Panel(!) Acute kidney injury, electrolytes grossly unremarkable, mild reduction albumin at 3.3, mild elevation of AST at 44, otherwise unremarkable hepatic function panel [IC] 0937 EKG demonstrates atrial fibrillation at a rate of 60, nonspecific ST changes in the lateral leads noted, mild ST depression in lead 2 noted, compared to prior EKG from September 01, 2023 ST depressions in the lateral leads are more pronounced, otherwise no significant morphological changes noted[IC] ED Course User Index [IC] Arden River MD Patient remained stable while under my care without additional complaints. CT PE negative for acutepulmonary embolism. Patient admitted for further workup and management. Clinical Impressions SOB (shortness of breath) Heart failure (HCC) Disposition Admitted. Admission Order Ordered Status . 10/03/232011 Admit for Inpatient Services (incl ZPO) ONCE Completed Gricel Johnson MD documented in this encounter Plan of Treatment Upcoming Encounters Date Type Department Care Team (Late st Contact Info) Description 10/12/2023 3:30 PM EDT Office Visit Cardiology, [facility] [address] [place] [address] Jennifer Queen PA-C [address] [facility] [place] [address] 10/16/2023 12:30 PM EDT PulmDiagnostic Pulmonary Function Lab, [address] [place] [address] Gj, Pulm [employer] [address] [place] [address] [id number] 10/20/2023 8:00 AM EDT Telemedicine Nephrology, [place] [address], [place] [phone] Viktor Nicole MD [address], [place] [phone] 11/07/2023 8:30 AM EDT Telemedicine Pulmonary Medicine, [place] [address] [place] [address] Yocasta Proctor CRNP [address] [place] [address] Scheduled Orders Name Type Priority Associated Diagnoses Orde r Schedule BASIC METABOLIC PANEL Lab Routine Heart failure (HCC) Expected: 10/19/2023, Expires: 10/04/2024 CBC WITH WBC DIFFERENTIAL Lab Routine SOB (shortness of breath) Expected: 10/19/2023, Expires: 10/04/2024 BASIC METABOLIC PANEL Lab Routine Heart failure (HCC) Expected: 10/11/2023, Expires: 10/04/2024 Scheduled Referrals Name Type Priority Associated Diagnoses Orde r Schedule HOME HEALTH REFERRAL OP Referral Within 10 days (routine) Heart failure (HCC) Ordered: 10/05/2023 Health Maintenance Due Date Last Done Comments [...] Procedure Name Priority Date/Time Associated Diagnosis Comments US RENAL Routine 10/05/2023 3:45 PM EST SODIUM, RANDOM URINE Routine 10/05/2023 1:29 PM EST BASIC METABOLIC PANEL Routine 10/05/2023 5:52 AM EST PHOSPHORUS Routine 10/05/2023 5:52 AM EST CBC Routine 10/05/2023 5:52 AM EST URIC ACID Add-on 10/05/2023 5:52 AM EST MAGNESIUM Routine 10/05/2023 5:52 AM EST VASC DUPLEX VENOUS LE BILAT Routine 10/04/2023 10:29 AM EST TROPONIN T, HIGH SENSITIVITY Routine 10/04/2023 6:29 AM EST RETICULOCYTE PANEL Add-on 10/04/2023 6: 29 AM EST COMPREHENSIVE METABOLIC PANEL Routine 10/04/2023 6:29 AM EST PT INR Routine 10/04/2023 6:29 AM EST PHOSPHORUS Routine 10/04/2023 6:29 AM EST CBC Routine 10/04/2023 6:29 AM EST MAGNESIUM Routine 10/04/2023 6:29 AM EST LIPID PANEL WITHOUT DIRECT LDL Routine 10/04/2023 6:29 AM EST BASIC METABOLIC PANEL Routine 10/04/2023 12:55 AM EST SODIUM, RANDOM URINE Routine 10/03/2023 10:17 PM EST OSMOLALITY, URINE Routine 10/03/2023 10: 17 PM EST TROPONIN T, HIGH SENSITIVITY Routine 10/03/2023 9:29 PM EST PROCALCITONIN Add-on 10/03/2023 9:29 PM EST CRP (INFLAMMATORY MARKER) Add-on 10/03/2023 9:29 PM EST OSMOLALITY, SERUM Routine 10/03/2023 9:2 9 PM EST LACTATE STAT 10/03/2023 9:29 PM EST TROPONIN T, HIGH SENSITIVITY STAT 10/03/2023 7:[address] PULMONARY EMBOLUS W CONTRAST STAT 10/03/2023 7:18 PM EST RESPIRATORY PATHOGEN PANEL, PCR STAT 10/03/2023 6:24 PM EST XR CHEST 2 VIEWS STAT 10/03/2023 6:13 PM EST DIFFERENTIAL, AUTOMATED STAT 10/03/2023 6:02 PM EST TROPONIN T, HIGH SENSITIVITY STAT 10/03/2023 6:02 PM EST BLOOD GAS, VENOUS STAT 10/03/2023 6:0 2 PM EST BNP (NT-PROBNP) STAT 10/03/2023 6:02 PM EST COMPREHENSIVE METABOLIC PANEL STAT 10/03/2023 6:02 PM EST D-DIMER STAT 10/03/2023 6:02 PM EST CBC STAT 10/03/2023 6:02 PM EST PT INR STAT 10/03/2023 6:02 PM EST PHOSPHORUS Add-on 10/03/2023 6:02 PM EST CBC STAT 10/03/2023 6:02 PM EST MAGNESIUM Add-on 10/03/2023 6:02 PM EST HC ECG TRACING ONLY STAT 10/03/2023 5 :45 PM EST SOB (shortness of breath) documented in this encounter Results * US RENAL (10/05/2023 3:45 PM EST) Anatomical Region Laterality Modality Abdomen, Body Ultrasound 10/05/2023 3:08 PM EST Impressions 10/05/2023 4:12 PM EST IMPRESSION: 1. No acute findings. 2. Small right kidney which may be technique related, represent atrophy or medical renal disease. THIS DOCUMENT HAS BEEN ELECTRONICALLY SIGNED BY HERNANDEZ NARANJO MD Narrative 10/05/2023 4:12 PM EST PROCEDURE INFORMATION: Exam: US Retroperitoneal; Complete; Kidneys and Bladder Exam date and time: 10/05/2023 3:08 PM Age: 87 years old Clinical indication: Abnormal findings; Abnormal lab test; Abnormal kidney function lab tests; Additional info: Carlota TECHNIQUE: Imaging protocol: Real-time ultrasound of the retroperitoneum with image documentation. Complete exam focused on the kidneys and bladder. COMPARISON: CTA CHEST NON-CORONARY 09/30/2021 7:32 AM FINDINGS: Right kidney: The right kidney measures 8.7 cm in length. Normal cortical echogenicity. No hydronephrosis. No shadowing stones or mass identified. Left kidney: The left kidney measures 9.7 cm in length. Normal cortical echogenicity. No hydronephrosis. No shadowing stones or mass seen. Aorta: The aorta is obscured by overlying bowel gas. Urinary bladder: Unremarkable. Procedure Note Hernandez Naranjo MD - 10/05/2023 PROCEDURE INFORMATION: Exam: US Retroperitoneal; Complete; Kidneys and Bladder Exam date and time: 10/05/2023 3:08 PM Age: 87 years old Clinical indication: Abnormal findings; Abnormal lab test; Abnormal kidney function lab tests; Additional info: Carlota TECHNIQUE: Imaging protocol: Real-time ultrasound of the retroperitoneum with image documentation. Complete exam focused on the kidneys and bladder. COMPARISON: CTA CHEST NON-CORONARY 09/30/2021 7:32 AM FINDINGS: Right kidney: The right kidney measures 8.7 cm in length. Normal cortical echogenicity. No hydronephrosis. No shadowing stones or mass identified. Left kidney: The left kidney measures 9.7 cm in length. Normal cortical echogenicity. No hydronephrosis. No shadowing stones or mass seen. Aorta: The aorta is obscured by overlying bowel gas. Urinary bladder: Unremarkable. IMPRESSION IMPRESSION: 1. No acute findings. 2. Small right kidney which may be technique related, represent atrophyor medical renal disease. THIS DOCUMENT HAS BEEN ELECTRONICALLY SIGNED BY HERNANDEZ NARANJO MD Meera Thompson MD RAD ULTRASOUND * SODIUM, RANDOM URINE (10/05/2023 1:29 PM EST) Pathologist [facility] Sodium, Random Urine 43 mmol/L 10/05/2023 7:34 PM EST LABORATORY [facility] Urine Non-blood Collection / Unknown 10/05/2023 1:29 PM EST 10/05/2023 1:37 PM EST Meera Thompson MD LAB URINE ORDERABLES LABORATORY [facility] [address] [place] [address] * (ABNORMAL) URIC ACID (10/05/2023 5:52 AM EST) [facility] Uric Acid 10.8(H) 2.4 - 5.7 mg/dL 10/05/2023 10:26 PM EST LABORATORY [facility] Blood Venous blood specimen / Unknown Venipuncture / Unknown 10/05/2023 5:52 AM EST 10/05/2023 6:55 AM EST Meera Thompson MD LAB BLOOD ORDERABLES Performing Organization Address City/[facility]/ZIP Co de Phone Number LABORATORY [facility] [address] [place] [address] * PHOSPHORUS (10/05/2023 5:52 AM EST) Pathologist [facility] Phosphorus 3.4 2.5 - 4.8 mg/dL 10/05/2023 7:18 AM EST LABORATORY [facility] Blood Venous blood specimen / Unknown Venipuncture / Unknown 10/05/2023 5:52 AM EST 10/05/2023 6:55 AM EST Meera Thompson MD LAB BLOOD ORDERABLES LABORATORY [address] [id number] [place] [address] * MAGNESIUM (10/05/2023 5:52 AM EST) Pathologist [facility] Magnesium 2.5 1.5 - 2.6 mg/dL 10/05/2023 7:18 AM EST LABORATORY [facility] Blood Venous blood specimen / Unknown Venipuncture / Unknown 10/05/2023 5:52 AM EST 10/05/2023 6:55 AM EST Meera Thompson MD LAB BLOOD ORDERABLES Performing Organization Address [facility] de Phone Number LABORATORY [address] [address] * (ABNORMAL) BASIC METABOLIC PANEL (10/05/2023 5:52 AM EST) BUN 33(H) 6 - 20 mg/dL 10/05/2023 7:18 AM EST LABORATORY [facility] Creatinine 1.5(H) 0.5 - 1.0 mg/dL 10/05/2023 7:18 AM EST LABORATORY [facility] Estimated Glomerular Filtration Rate 35(L) >=60 mL/min 10/05/2023 7:18 AM EST LABORATORY [facility] Comment:eGFR is calculated b ased on the CKD-EPI 2020 equation Sodium 134(L) 135 - 146 mmol/L 10/05/2023 7:18 AM EST LABORATORY [facility] Potassium 4.0 3.5 - 5.1 mmol/L 10/05/2023 7:18 AM EST LABORATORY [facility] Chloride 96(L) 98 - 107 mmol/L 10/05/2023 7:18 AM EST LABORATORY [facility] CO2 26 22 - 32 mmol/L 10/05/2023 7:18 AM EST LABORATORY [facility] Anion Gap 12 7 - 15 mmol/L 10/05/2023 7:18 AM EST LABORATORY [facility] Glucose 87 70 - 120 mg/dL 10/05/2023 7:18 AM EST LABORATORY [facility] Calcium 9.5 8.4 - 10.2 mg/dL 10/05/2023 7:18 AM EST LAB[facility]ATORY [facility] Blood Venous blood specimen / Unknown Venipuncture / Unknown 10/05/2023 5:52 AM EST 10/05/2023 6:55 AM EST Meera Thompson MD LAB BLOOD ORDERABLES LABORATORY [facility] [address] [place] [address] * (ABNORMAL) CBC (10/05/2023 5:52 AM EST) WBC 10.32 4.00 - 10.80 K/uL 10/05/2023 7:06 AM EST LABORATORY [facility] RBC 4.10 3.85 - 5.15 M/uL 10/05/2023 7:06 AM EST LABORATORY [facility] HGB 11.9(L) 12.0 - 15.3 g/dL 10/05/2023 7:06 AM EST LABORATORY [facility] HCT 38.1 36.0 - 45.2 % 10/05/2023 7:06 AM EST LABORATORY [facility] MCV 92.9 81.5 - 97.5 fL 10/05/2023 7:06 AM EST LABORATORY [facility] MCH 29.0 27.0 - 34.0 pg 10/05/2023 7:06 AM EST LABORATORY [facility] MCHC 31.2 32.0 - 36.0 g/dL 10/05/2023 7:06 AM EST LABORATORY [facility] RDW 17.5 11.5 - 15.5 % 10/05/2023 7:06 AM EST LABORATORY [facility] PLT 269 140 - 400 K/uL 10/05/2023 7:06 AM EST LABORATORY [facility] MPV 9.6 6.6 - 11.1 fL 10/05/2023 7:06 AM EST LAB[facility]ATORY [facility] Blood Venous blood specimen / Unknown Venipuncture / Unknown 10/05/2023 5:52 AM EST 10/05/2023 6:55 AM EST Meera Thompson MD LAB BLOOD ORDERABLES LABORATORY [place] [id number] [place] [address] * VASC DUPLEX VENOUS LE BILAT (10/04/2023 10:29 AM EST) Anatomical Region Laterality Modality Lower Extremity, Vascular Ultras ound 10/04/2023 9:19 AM EST Impressions 10/04/2023 11:59 AM EST IMPRESSION: No evidence of deep vein thrombosis. THIS DOCUMENT HAS BEEN ELECTRONICALLY SIGNED BY HERNANDEZ NARANJO MD Narrative 10/04/2023 11:59 AM EST PROCEDURE INFORMATION: Exam: US Duplex Lower Extremity Veins, Bilateral Exam date and time: 10/04/2023 9:19 AM Age: 87 years old Clinical indication: Edema, localized; Lower extremity, bilateral; Additional info: Bilat edema TECHNIQUE: Imaging protocol: Real-time duplex ultrasound of the bilateral extremities with 2-D nunn scale, color Doppler flow and spectral waveform analysis including responses to compression and other maneuvers (when performed) with image documentation. Complete exam focused on the lower extremity veins. COMPARISON: CT PULMONARY EMBOLUS W CONTRAST 10/03/2023 7:06 PM FINDINGS: Right deep veins: Unremarkable. The common femoral, femoral, proximal profunda femoral and popliteal veins are patent without thrombus. Normal Doppler waveforms. Normal compressibility and/or augmentation response. Left deep veins: Unremarkable. The common femoral, femoral, proximal profunda femoral and popliteal veins are patent without thrombus. Normal Doppler waveforms. Normal compressibility and/or augmentation response. Superficial veins: Greater saphenous veins at the saphenofemoral junctions are patent bilaterally without thrombus. Soft tissues: Unremarkable. Procedure Note Hernandez Naranjo MD - 10/04/2023 PROCEDURE INFORMATION: Exam: US Duplex Lower Extremity Veins, Bilateral Exam date and time: 10/04/2023 9:19 AM Age: 87 years old Clinical indication: Edema, localized; Lower extremity, bilateral;Additional info: Bilat edema TECHNIQUE: Imaging protocol: Real-time duplex ultrasound of the bilateral extremitieswith 2-D nunn scale, color Doppler flow and spectral waveform analysisincluding responses to compression and other maneuvers (when performed) with image documentation. Complete exam focused on the lower extremity veins. COMPARISON: CT PULMONARY EMBOLUS W CONTRAST 10/03/2023 7:06 PM FINDINGS: Right deep veins: Unremarkable. The common femoral, femoral, proximalprofunda femoral and popliteal veins are patent without thrombus. Normal Doppler waveforms. Normal compressibility and/or augmentation response. Left deep veins: Unremarkable. The common femoral, femoral, proximalprofunda femoral and popliteal veins are patent without thrombus. Normal Doppler waveforms. Normal compressibility and/or augmentation response. Superficial veins: Greater saphenous veins at the saphenofemoral junctionsare patent bilaterally without thrombus. Soft tissues: Unremarkable. IMPRESSION IMPRESSION: No evidence of deep vein thrombosis. THIS DOCUMENT HAS BEEN ELECTRONICALLY SIGNED BY HERNANDEZ NARANJO MD Enoc Rasmussen PA-C RAD VASCULAR * (ABNORMAL) RETICULOCYTE PANEL (10/04/2023 6:29 AM EST) Reticulocyte Percent 3.91(H) 0.80 - 1.90 % 10/04/2023 9:19 PM EST LABORATORY [facility] Absolute Reticulocyte 149.0(H) 31.3 - 100.1 K/uL 10/04/2023 9:19 PM EST LABORATORY [facility] Immature Reticuloctye Fraction 36.6(H) 2.5 - 20.6 % 10/04/2023 9:19 PM EST LABORATORY [facility] Reticulocyte Hemoglobin 28.3(L) 29.7 - 37.4 pg 10/04/2023 9:19 PM EST LABORATORY [facility] Blood Venous blood specimen / Unknown Venipuncture / Unknown 10/04/2023 6:29 AM EST 10/04/2023 6:45 AM EST Meera Thompson MD LAB BLOOD ORDERABLES LABORATORY [facility] [address] [place] [address] * (ABNORMAL) LIPID PANEL WITHOUT DIRECT LDL (10/04/2023 6:29 AM EST) Triglycerides 47 <=174 mg/dL 10/04/2023 12:53 PM EST LABORATORY [facility] Comment: Triglyceride Reference Ranges (mg/dL): <150 Acceptable 150-174 Borderline high 175-499 High >=500 Very high Cholesterol 48 <200 mg/dL 10/04/2023 12:53 PM EST LABORATORY [facility] Comment: Total Cholesterol Reference Ranges (mg/dL): <200 Desirable 200-239 Borderline high >=240 High HDL Cholesterol 24(L) >49 mg/dL 12:53 PM EST LABORATORY [facility] Comment: HDL Cholesterol Reference Ranges (mg/dL): >=60 High (Desirable) <50 Low (Undesirable) For Females <40 Low (Undesirable) For Males Non-HDL Cholesterol 24 <=159 mg/dL 10/04/2023 12:53 PM EST LABORATORY [facility] Comment: Non-HDL Cholesterol Reference Range (mg/dL): <100 Target level for high risk ASCVD patient <130 Optimal for general population 130-159 Near optimal for general population 160-189 Borderline High 190-219 High >=220 Very High LDL Cholesterol 15 <=129 mg/dL 10/04/2023 12:53 PM EST LABORATORY [facility] Comment: LDL Cholesterol Reference Ranges (mg/dL): <70 Target level for high risk ASCVD patient <100 Optimal for general population 100-129 Near optimal for general population 130-159 Borderline high 160-189 High >=190 Very high Blood Venous blood specimen / Unknown Venipuncture / Unknown 10/04/2023 6:29 AM EST 10/04/2023 6:45 AM EST Enoc Rasmussen PA-C LAB BLOOD ORDERABLE S LABORATORY [facility] [address] [place] [address] * PHOSPHORUS (10/04/2023 6:29 AM EST) Phosphorus 4.1 2.5 - 4.8 mg/dL 10/04/2023 7:09 AM EST LABORATORY [facility] Blood Venous blood specimen / Unknown Venipuncture / Unknown 10/04/2023 6:29 AM EST 10/04/2023 6:45 AM EST Enoc Rasmussen PA-C LAB BLOOD ORDERABLE S LABORATORY [facility] [address] [place] [address] * MAGNESIUM (10/04/2023 6:29 AM EST) Magnesium 2.3 1.5 - 2.6 mg/dL 10/04/2023 7:09 AM EST LABORATORY [facility] Blood Venous blood specimen / Unknown Venipuncture / Unknown 10/04/2023 6:29 AM EST 10/04/2023 6:45 AM EST Enoc Rasmussen PA-C LAB BLOOD ORDERABLE S LABORATORY [address] [address] * (ABNORMAL) CBC (10/04/2023 6:29 AM EST) [facility] WBC 9.27 4.00 - 10.80 K/uL 10/04/2023 6:52 AM EST LABORATORY [facility] RBC 3.80 3.85 - 5.15 M/uL 10/04/2023 6:52 AM EST LABORATORY [facility] HGB 11.1(L) 12.0 - 15.3 g/dL 10/04/2023 6:52 AM EST LABORATORY [facility] HCT 35.2(L) 36.0 - 45.2 % 10/04/2023 6:52 AM EST LABORATORY [facility] MCV 92.6 81.5 - 97.5 fL 10/04/2023 6:52 AM EST LABORATORY [facility] MCH 29.2 27.0 - 34.0 pg 10/04/2023 6:52 AM EST LABORATORY [facility] MCHC 31.5 32.0 - 36.0 g/dL 10/04/2023 6:52 AM EST LABORATORY [facility] RDW 17.1 11.5 - 15.5 % 10/04/2023 6:52 AM EST LABORATORY [facility] PLT 233 140 - 400 K/uL 10/04/2023 6:52 AM EST LABORATORY [facility] MPV 9.2 6.6 - 11.1 fL 10/04/2023 6:52 AM EST LAB[facility]ATORY [facility] Blood Venous blood specimen / Unknown Venipuncture / Unknown 10/04/2023 6:29 AM EST 10/04/2023 6:45 AM EST Enoc Rasmussen PA-C LAB BLOOD ORDERABLE S LABORATORY [address] [phone] * (ABNORMAL) PT INR (10/04/2023 6:29 AM EST) Prothrombin Time 21.3(H) 11.6 - 15.2 seconds 10/04/2023 7:13 AM EST LABORATORY [facility] INR 1.8(H) 0.8 - 1.2 10/04/2023 7:13 AM EST LABORATORY [facility] Blood Venous blood specimen / Unknown Venipuncture / Unknown 10/04/2023 6:29 AM EST 10/04/2023 6:45 AM EST Narrative LABORATORY [facility] - 10/04/2023 7:13 AM EST Warfarin Therapy INR: 2.0-3.0 conventional anticoagulation INR: 2.5-3.5 high intensity anticoagulation Enoc Rasmussen PA-C LAB BLOOD ORDERABLE S Performing Organization Address City/State/[facility] Co de Phone Number LABORATORY [id number] [place] [address] * (ABNORMAL) COMPREHENSIVE METABOLIC PANEL (10/04/2023 6:29 AM EST) Pathologist [facility] BUN 31(H) 6 - 20 mg/dL 10/04/2023 7:09 AM EST LABORATORY [facility] Creatinine 1.4(H) 0.5 - 1.0 mg/dL 10/04/2023 7:09 AM EST LABORATORY [facility] Estimated Glomerular Filtration Rate 36(L) >=60 mL/min 10/04/2023 7:09 AM EST LABORATORY [facility] Comment:eGFR is calculated b ased on the CKD-EPI 2020 equation Sodium 135 135 - 146 mmol/L 10/04/2023 7:09 AM EST LABORATORY [facility] Potassium 3.3(L) 3.5 - 5.1 mmol/L 10/04/2023 7:09 AM EST LABORATORY [facility] Chloride 97(L) 98 - 107 mmol/L 10/04/2023 7:09 AM EST LABORATORY [facility] CO2 29 22 - 32 mmol/L 10/04/2023 7:09 AM EST LABORATORY [facility] Anion Gap 9 7 - 15 mmol/L 10/04/2023 7:09 AM EST LABORATORY [facility] Glucose 89 70 - 120 mg/dL 10/04/2023 7:09 AM EST LABORATORY [facility] Albumin 3.3(L) 3.8 - 5.0 g/dL 10/04/2023 7:09 AM EST LABORATORY [facility] AST 34 10 - 35 U/L 10/04/2023 7:09 AM EST LABORATORY [facility] Alkaline Phosphatase 91 35 - 130 U/L 10/04/2023 7:09 AM EST LABORATORY [facility] Bilirubin, Total 1.6(H) <=1.2 mg/dL 10/04/2023 7:09 AM EST LABORATORY [facility] Calcium 9.0 8.4 - 10.2 mg/dL 10/04/2023 7:09 AM EST LABORATORY [facility] Protein 6.9 6.0 - 8.3 g/dL 10/04/2023 7:09 AM EST LABORATORY [facility] ALT 20 10 - 35 U/L 10/04/2023 7:09 AM EST LABORATORY [facility] Blood Venous blood specimen / Unknown Venipuncture / Unknown 10/04/2023 6:29 AM EST 10/04/2023 6:45 AM EST Enoc Rsamussen PA-C LAB BLOOD ORDERABLE S Performing Organization Address City/[facility]/ZIP Co de Phone Number LABORATORY [address] [phone] * (ABNORMAL) TROPONIN T, HIGH SENSITIVITY (10/04/2023 6:29 AM EST) Pathologist [facility] Troponin T, High Sensitivity 43(H) <=14 ng/L 10/04/2023 7:13 AM EST LABORATORY [facility] Blood Venous blood specimen / Unknown Venipuncture / Unknown 10/04/2023 6:29 AM EST 10/04/2023 6:45 AM EST Enoc Rasmussen PA-C LAB BLOOD ORDERABLE S Performing Organization Address City/[facility]/ZIP Co de Phone Number LABORATORY [address] [phone] * (ABNORMAL) BASIC METABOLIC PANEL (10/04/2023 12:55 AM EST) BUN 31(H) 6 - 20 mg/dL 10/04/2023 1:25 AM EST LABORATORY [facility] Creatinine 1.4(H) 0.5 - 1.0 mg/dL 10/04/2023 1:25 AM EST LABORATORY [facility] Estimated Glomerular Filtration Rate 38(L) >=60 mL/min 10/04/2023 1:25 AM EST LABORATORY [facility] Comment:eGFR is calculated b ased on the CKD-EPI 2020 equation Sodium 133(L) 135 - 146 mmol/L 10/04/2023 1:25 AM EST LABORATORY [facility] Potassium 3.3(L) 3.5 - 5.1 mmol/L 10/04/2023 1:25 AM EST LABORATORY [facility] Chloride 97(L) 98 - 107 mmol/L 10/04/2023 1:25 AM EST LABORATORY [facility] CO2 26 22 - 32 mmol/L 10/04/2023 1:25 AM EST LABORATORY [facility] Anion Gap 10 7 - 15 mmol/L 10/04/2023 1:25 AM EST LABORATORY [facility] Glucose 90 70 - 120 mg/dL 10/04/2023 1:25 AM EST LABORATORY [facility] Calcium 9.4 8.4 - 10.2 mg/dL 10/04/2023 1:25 AM EST LABORATORY [facility] Blood Venous blood specimen / Unknown Venipuncture / Unknown 10/04/2023 12:55 AM EST 10/04/2023 1:04 AM EST Enoc Rasmussen PA-C LAB BLOOD ORDERABLE S LABORATORY [facility] [address] [place] [address] * SODIUM, RANDOM URINE (10/03/2023 10:17 PM EST) Sodium, Random Urine 68 mmol/L 10/04/2023 11:39 AM EST LABORATORY [facility] Urine Non-blood Collection / Unknown 10/03/2023 10:17 PM EST 10/03/2023 10:24 PM EST Enoc Rasmussen PA-C LAB URINE ORDERABLE S LABORATORY [facility] [address] [place] [address] * OSMOLALITY, URINE (10/03/2023 10:17 PM EST) Osmolality, Urine 285 50 - 1,200 mOsm/kg 10/04/2023 10:50 AM EST LABORATORY [facility] Urine Urine specimen obtained by clean catch procedure / Unknown Non-blood Collection / Unknown 10/03/2023 10:17 PM EST 10/03/2023 10:24 PM EST Enoc Rasmussen PA-C LAB URINE ORDERABLE S LABORATORY [facility] [address] [place] [address] * (ABNORMAL) CRP (INFLAMMATORY MARKER) (10/03/2023 9:29 PM EST) Pathologist [facility] CRP (Inflammatory Marker) 12(H) <=5 mg/L 10/03/2023 9:57 PM EST LABORATORY [facility] Blood Venous blood specimen / Unknown Venipuncture / Unknown 10/03/2023 9:29 PM EST 10/03/2023 9:33 PM EST Enoc Rasmussen PA-C LAB BLOOD ORDERABLE S LABORATORY [facility] [address] [place] [address] * (ABNORMAL) PROCALCITONIN (10/03/2023 9:29 PM EST) Pathologist [facility] Procalcitonin 0.10(H) <0.10 ng/mL 10/04/2023 11:31 AM EST LABORATORY [facility] Blood Venous blood specimen / Unknown Venipuncture / Unknown 10/03/2023 9:29 PM EST 10/03/2023 9:33 PM EST Narrative LABORATORY [facility] - 10/04/2023 11:31 AM EST Less than 0.5 ng/mL: Low risk for progression to sepsis. Review patients condition for localized infections. 0.5 to 2.0 ng/mL: Intermediate risk for progresion to sepsis. Review underlying conditions. Recommend repeat PCT after 6 hours has elapsed. Greater than 2.0 ng/mL: high risk for progression to sepsis unless other causes are known. Enoc Rasmussen PA-C LAB BLOOD ORDERABLE S Performing Organization Address City/[facility] Co de Phone Number LABORATORY [facility] [address] [place] [address] * OSMOLALITY, SERUM (10/03/2023 9:29 PM EST) Pathologist [facility] Osmolality, Serum 295 278 - 305 mOsm/kg 10/04/2023 10:57 AM EST LABORATORY [facility] Blood Venous blood specimen / Unknown Venipuncture / Unknown 10/03/2023 9:29 PM EST 10/03/2023 9:33 PM EST Enoc Rasmussen PA-C LAB BLOOD ORDERABLE S Performing Organization Address [facility] Phone Number LABORATORY [facility] [address] [place] [address] * (ABNORMAL) TROPONIN T, HIGH SENSITIVITY (10/03/2023 9:29 PM EST) Pathologist [facility] Troponin T, High Sensitivity 39(H) <=14 ng/L 10/03/2023 9:56 PM EST LABORATORY [facility] Blood Venous blood specimen / Unknown Venipuncture / Unknown 10/03/2023 9:29 PM EST 10/03/2023 9:33 PM EST Enoc Rasmussen PA-C LAB BLOOD ORDERABLE S Performing Organization Address City/[facility]/ZIP Co de Phone Number LABORATORY [phone] [place] [address] * LACTATE (10/03/2023 9:29 PM EST) Pathologist [facility] Lactate 1.1 0.4 - 2.0 mmol/L 10/03/2023 9:49 PM EST LABORATORY [facility] Blood Venous blood specimen / Unknown Venipuncture / Unknown 10/03/2023 9:29 PM EST 10/03/2023 9:33 PM EST Enoc Rasmussen PA-C LAB BLOOD ORDERABLE S Performing Organization Address City/[facility]/ZIP Co de Phone Number LABORATORY [address] [phone] * (ABNORMAL) TROPONIN T, HIGH SENSITIVITY (10/03/2023 7:31 PM EST) Troponin T, High Sensitivity 37(H) <=14 ng/L 10/03/2023 8:02 PM EST LABORATORY [facility] Blood Venous blood specimen / Unknown Venipuncture / Unknown 10/03/2023 7:31 PM EST 10/03/2023 7:34 PM EST Arden River MD LAB BLOOD ORDERABLES Performing Organization Address [facility] Co de Phone Number LABORATORY [address] [phone] * CT PULMONARY EMBOLUS W CONTRAST (10/03/2023 7:18 PM EST) Anatomical Region Laterality Modality Chest, Cardio, Body Computed Brian ography 10/03/2023 7:06 PM EST Impressions 10/03/2023 7:53 PM EST IMPRESSION: 1. Compared to a CT chest with contrast dated 08/29/2023, interval improvement in patches of infiltrate within each lung. Mild residual patches of infiltrate within the periphery of each lung. 2. No pleural fluid collection. 3. Compared to 10/01/2019, once again noted are peripheral areas of chronic interstitial fibrosis within each lung. THIS DOCUMENT HAS BEEN ELECTRONICALLY SIGNED BY REAGAN BASS MD Narrative 10/03/2023 7:53 PM EST PROCEDURE INFORMATION: Exam: CTA Chest With Contrast Exam date and time: 10/03/2023 7:06 PM Age: 87 years old Clinical indication: Elevated d-dimer, SOB, New o2 requirement TECHNIQUE: Imaging protocol: Computed tomographic angiography of the chest with contrast. Exam focused on the arteries. [...] 100 ml; Contrast route: INTRAVENOUS (IV); COMPARISON: CTA CHEST NON-CORONARY 09/30/2021; CT chest with contrast 08/29/2023 FINDINGS: Pulmonary arteries: No evidence of acute pulmonary embolism. 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 Lungs: Compared to a CT chest with contrast dated 08/29/2023, interval improvement in patches of infiltrate within each lung. Mild residual patches of infiltrate within the periphery of each lung. Compared to 10/01/2019, once again noted are peripheral areas of chronic interstitial fibrosis within each lung. Pleural spaces: No pleural fluid collection. No pneumothorax. Heart: No right ventricular strain. Coronary artery and aortic / mitral valve annulus calcification. No pericardial effusion. Lymph nodes: Compared to a prior CT chest without contrast dated 08/29/2023, no interval change in scattered prominent mediastinal lymph nodes. Diaphragm: Small hiatal hernia. Gallbladder and bile ducts: Prior cholecystectomy. Pancreas: Pancreatic atrophy. Bones/joints: Spinal and shoulder degenerative changes. Soft tissues: Unremarkable. Procedure Note Reagan Bass MD - 10/03/2023 PROCEDURE INFORMATION: Exam: CTA Chest With Contrast Exam date and time: 10/03/2023 7:06 PM Age: 87 years old Clinical indication: Elevated d-dimer, SOB, New o2 requirement TECHNIQUE: Imaging protocol: Computed tomographic angiography of the chest withcontrast. Exam focused on the arteries. 3D rendering [...] 100 ml; Contrast route: INTRAVENOUS (IV); COMPARISON: CTA CHEST NON-CORONARY 09/30/2021; CT chest with contrast 08/29/2023 FINDINGS: Pulmonary arteries: No evidence of acute pulmonary embolism. Aorta: Stable 4.3 cm aneurysmal dilatation of the ascending thoracicaorta. Lungs: Compared to a CT chest with contrast dated 08/29/2023, interval improvement in patches of infiltrate within each lung. Mild residualpatches of infiltrate within the periphery of each lung. Compared to 10/01/2019, once again noted are peripheral areas of chronic interstitial fibrosis within each lung. Pleural spaces: No pleural fluid collection. No pneumothorax. Heart: No right ventricular strain. Coronary artery and aortic / mitralvalve annulus calcification. No pericardial effusion. Lymph nodes: Compared to a prior CT chest without contrast dated08/29/2023, no interval change in scattered prominent mediastinal lymph nodes. Diaphragm: Small hiatal hernia. Gallbladder and bile ducts: Prior cholecystectomy. Pancreas: Pancreatic atrophy. Bones/joints: Spinal and shoulder degenerative changes. Soft tissues: Unremarkable. IMPRESSION IMPRESSION: 1. Compared to a CT chest with contrast dated 08/29/2023, interval improvement in patches of infiltrate within each lung. Mild residualpatches of infiltrate within the periphery of each lung. 2. No pleural fluid collection. 3. Compared to 10/01/2019, once again noted are peripheral areas ofchronic interstitial fibrosis within each lung. THIS DOCUMENT HAS BEEN ELECTRONICALLY SIGNED BY REAGAN BASS MD Arden River MD RAD CT * RESPIRATORY PATHOGEN PANEL, PCR (10/03/2023 6:24 PM EST) Adenovirus by PCR Negative Negative 024 7:31 PM EST LABORATORY [facility] Coronavirus 229E by PCR Negative Negative 10/03/2023 7:31 PM EST LABORATORY [facility] Coronavirus HKU1 by PCR Negative Negative 10/03/2023 7:31 PM EST LABORATORY [facility] Coronavirus NL63 by PCR Negative Negative 10/03/2023 7:31 PM EST LABORATORY [facility] Coronavirus OC43 by PCR Negative Negative 10/03/2023 7:31 PM EST LABORATORY [facility] Coronavirus SARS-CoV-2 by PCR Negative Negative 10/03/2023 7:31 PM EST LABORATORY [facility] Human Metapneumovirus by PCR Negative Negative 10/03/2023 7:31 PM EST LABORATORY [facility] Rhinovirus/Enterovi jessica by PCR Negative Negative 10/03/2023 7:31 PM EST LABORATORY [facility] Influenza A Virus by PCR Negative Negative 10/03/2023 7:31 PM EST LABORATORY [facility] Influenza B Virus by PCR Negative Negative 10/03/2023 7:31 PM EST LAB[facility]ATORY [facility] Parainfluenza Virus 1 by PCR Negative Negative 10/03/2023 7:31 PM EST LABORATORY [facility] Parainfluenza Virus 2 by PCR Negative Negative 10/03/2023 7:31 PM EST LABORATORY [facility] Parainfluenza Virus 3 by PCR Negative Negative 10/03/2023 7:31 PM EST LABORATORY [facility] Parainfluenza Virus 4 by PCR Negative Negative 10/03/2023 7:31 PM EST LAB[facility]ATORY [facility] Respiratory Syncytial Virus by PCR Negative Negative 10/03/2023 7:31 PM EST LAB[facility]ATORY [facility] Bordetella pertussis by PCR Negative Negative 10/03/2023 7:31 PM EST LABORATORY [facility] Chlamydia pneumoniae by PCR Negative Negative 10/03/2023 7:31 PM EST LAB[facility]ATORY [facility] Mycoplasma pneumoniae by PCR Negative Negative 10/03/2023 7:31 PM EST LABORATORY [facility] Bordetella parapertussis by PCR Negative Negative 10/03/2023 7:31 PM EST LABORATORY [facility] Comment: The primers that detect Rhinovirus may cross react with some Enterorviruses. The validation of bronchial specimens, tracheal aspirates, and throats for this assay was developed and performance characteristics determined by [employer]. The validation of alternate specimen types has not been cleared or approved by the U.S. Food and Drug Administration (FDA). It has been determined that such clearance or approval is not necessary. Upper Respiratory Mid-turbinate nasal swab / Unknown Non-blood Collection / Unknown 10/03/2023 6:24 PM EST 10/03/2023 6:29 PM EST Arden River MD LAB MICRO - GENERAL ORDERABLES LABORATORY [id number] [place] [address] * XR CHEST 2 VIEWS (10/03/2023 6:13 PM EST) Anatomical Region Laterality Modality Chest Computed Radiogr aphy 10/03/2023 6:12 PM EST Impressions 10/03/2023 6:31 PM EST IMPRESSION: Extensive chronic interstitial markings are unchanged with superimposed parenchymal consolidation not excluded . THIS DOCUMENT HAS BEEN ELECTRONICALLY SIGNED BY JULIANNA CANDELARIO MD Narrative 10/03/2023 6:31 PM EST PROCEDURE INFORMATION: Exam: XR Chest Exam date and time: 10/03/2023 6:12 PM Age: 87 years old Clinical indication: Shortness of breath; Additional info: SOB, concern for chf exacerbation TECHNIQUE: Imaging protocol: Radiologic exam of the chest. Views: 2 views. COMPARISON: CT CHEST W CONTRAST 08/29/2023 5:48 PM FINDINGS: Lungs: Extensive chronic interstitial markings are unchanged with superimposed parenchymal consolidation not excluded . Pleural spaces: No large effusion or pneumothorax. Heart/Mediastinum: Stable cardiac and mediastinal contours. Vasculature: There are calcifications of the aortic arch. Bones/joints: No evidence of acute osseous abnormalities within the visualized portions of the thoracic spine and ribs. Osseous structures appear appropriate for patient age. Procedure Note Julianna Candelario MD - 10/03/2023 PROCEDURE INFORMATION: Exam: XR Chest Exam date and time: 10/03/2023 6:12 PM Age: 87 years old Clinical indication: Shortness of breath; Additional info: SOB, concernfor chf exacerbation TECHNIQUE: Imaging protocol: Radiologic exam of the chest. Views: 2 views. COMPARISON: CT CHEST W CONTRAST 08/29/2023 5:48 PM FINDINGS: Lungs: Extensive chronic interstitial markings are unchanged withsuperimposed parenchymal consolidation not excluded . Pleural spaces: No large effusion or pneumothorax. Heart/Mediastinum: Stable cardiac and mediastinal contours. Vasculature: There are calcifications of the aortic arch. Bones/joints: No evidence of acute osseous abnormalities within thevisualized portions of the thoracic spine and ribs. Osseous structures appearappropriate for patient age. IMPRESSION IMPRESSION: Extensive chronic interstitial markings are unchanged with superimposed parenchymal consolidation not excluded . THIS DOCUMENT HAS BEEN ELECTRONICALLY SIGNED BY JULIANNA CANDELARIO MD Arden River MD RADIOLOGY (RAD GENER AL) * PHOSPHORUS (10/03/2023 6:02 PM EST) Phosphorus 4.3 2.5 - 4.8 mg/dL 10/03/2023 9:07 PM EST LABORATORY [facility] Blood Venous blood specimen / Unknown Venipuncture / Unknown 10/03/2023 6:02 PM EST 10/03/2023 6:12 PM EST Enoc Rasmussen PA-C LAB BLOOD ORDERABLE S Performing Organization Address City/[facility]/ZIP Co de Phone Number LABORATORY [address] [phone] * MAGNESIUM (10/03/2023 6:02 PM EST) Magnesium 2.3 1.5 - 2.6 mg/dL 10/03/2023 9:07 PM EST LABORATORY [facility] Blood Venous blood specimen / Unknown Venipuncture / Unknown 10/03/2023 6:02 PM EST 10/03/2023 6:12 PM EST Enoc Rasmussen PA-C LAB BLOOD ORDERABLE S Performing Organization Address [facility]/ZIP Co de Phone Number LABORATORY [address] [phone] * (ABNORMAL) DIFFERENTIAL, AUTOMATED (10/03/2023 6:02 PM EST) WBC 9.67 4.00 - 10.80 K/uL 10/03/2023 6:17 PM EST LABORATORY [facility] Neutrophils % 73.3 40.0 - 75.0 % 10/03/2023 6:17 PM EST LABORATORY [facility] Lymphocytes % 13.1(L) 18.0 - 42.0 % 10/03/2023 6:17 PM EST LABORATORY [facility] Monocytes % 8.8 1.0 - 11.0 % 10/03/2023 6:17 PM EST LABORATORY [facility] Eosinophils % 4.1 0.0 - 6.0 % 10/03/2023 6:17 PM EST LABORATORY [facility] Basophils % 0.7 0.0 - 2.0 % 10/03/2023 6:17 PM EST LABORATORY [facility] Absolute Neutrophils 7.08 1.80 - 7.70 K/uL 10/03/2023 6:17 PM EST LABORATORY [facility] Absolute Lymphocytes 1.27 1.00 - 4.80 K/ul 10/03/2023 6:17 PM EST LABORATORY [facility] Absolute Monocytes 0.85 0.00 - 1.10 K/uL 10/03/2023 6:17 PM EST LABORATORY [facility] Absolute Eosinophils 0.40 0.00 - 0.70 K/uL 10/03/2023 6:17 PM EST LABORATORY [facility] Absolute Basophils 0.07 0.00 - 0.20 K/uL 10/03/2023 6:17 PM EST LABORATORY [facility] Blood Venous blood specimen / Unknown Venipuncture / Unknown 10/03/2023 6:02 PM EST 10/03/2023 6:12 PM EST Arden River MD LAB BLOOD ORDERABLES Performing Organization Address City/State/[facility] Co de Phone Number LABORATORY [phone] [place] [address] * (ABNORMAL) CBC (10/03/2023 6:02 PM EST) WBC 9.67 4.00 - 10.80 K/uL 10/03/2023 6:17 PM EST LABORATORY [facility] RBC 3.98 3.85 - 5.15 M/uL 10/03/2023 6:17 PM EST LABORATORY [facility] HGB 11.7(L) 12.0 - 15.3 g/dL 10/03/2023 6:17 PM EST LABORATORY [facility] HCT 36.9 36.0 - 45.2 % 10/03/2023 6:17 PM EST LABORATORY [facility] MCV 92.7 81.5 - 97.5 fL 10/03/2023 6:17 PM EST LABORATORY [facility] MCH 29.4 27.0 - 34.0 pg 10/03/2023 6:17 PM EST LABORATORY [facility] MCHC 31.7 32.0 - 36.0 g/dL 10/03/2023 6:17 PM EST LABORATORY [facility] RDW 17.4 11.5 - 15.5 % 10/03/2023 6:17 PM EST LABORATORY [facility] PLT 263 140 - 400 K/uL 10/03/2023 6:17 PM EST LABORATORY [facility] MPV 9.3 6.6 - 11.1 fL 10/03/2023 6:17 PM EST LABORATORY [facility] Blood Venous blood specimen / Unknown Venipuncture / Unknown 10/03/2023 6:02 PM EST 10/03/2023 6:12 PM EST Arden River MD LAB BLOOD ORDERABLES LABORATORY [id number] [place] [address] * (ABNORMAL) BLOOD GAS, VENOUS (10/03/2023 6:02 PM EST) Temperature 37.0 C 10/03/2023 6:17 PM EST LABORATORY [facility] pH, Venous 7.463(H) 7.320 - 7.430 units 10/03/2023 6:17 PM EST LABORATORY [facility] pCO2, Venous 39.9(L) 40.0 - 60.0 mmHg 10/03/2023 6:17 PM EST LABORATORY [facility] pO2, Venous 41.6 25.0 - 50.0 mmHg 10/03/2023 6:17 PM EST [facility] Excess, Venous 4.4(H) -2.0 - 2.0 mmol/L 10/03/2023 6:17 PM EST LABORATORY [facility] Hemoglobin, Whole Blood 12.8 12.0 - 15.3 g/dL 10/03/2023 6:17 PM EST LABORATORY [facility] Oxyhemoglobin, Venous 72.3 40.0 - 85.0 % total Hgb 10/03/2023 6:17 PM EST LABORATORY [facility] Carboxyhemoglobi n, Whole Blood 2.0(H) <=1.5 % total Hgb 10/03/2023 6:17 PM EST LABORATORY [facility] Comment:Smokers: 0-9.0 % Methemoglobin, Whole Blood 0.4 <=1.5 % total Hgb 10/03/2023 6:17 PM EST LAB[facility]ATORY [facility] Reduced Hemoglobin, Venous 25.3 % total Hgb 10/03/2023 6:17 PM EST LABORATORY [facility] O2 Content, Venous 13.0 7.0 - 18.0 %vol 10/03/2023 6:17 PM EST LABORATORY [facility] Bicarbonate, Whole Blood 28.5 23.0 - 31.0 mmol/L 10/03/2023 6:17 PM EST LABORATORY [facility] Blood Venous blood specimen / Unknown Venipuncture / Unknown 10/03/2023 6:02 PM EST 10/03/2023 6:12 PM EST Arden River MD LAB BLOOD ORDERABLES Performing Organization Address [facility] de Phone Number LABORATORY [address] [phone] * (ABNORMAL) PT INR (10/03/2023 6:02 PM EST) Prothrombin Time 21.6(H) 11.6 - 15.2 seconds 10/03/2023 6:50 PM EST LABORATORY [facility] INR 1.9(H) 0.8 - 1.2 10/03/2023 6:50 PM EST LABORATORY [facility] Blood Venous blood specimen / Unknown Venipuncture / Unknown 10/03/2023 6:02 PM EST 10/03/2023 6:12 PM EST Narrative LABORATORY [facility] - 10/03/2023 6:50 PM EST Warfarin Therapy INR: 2.0-3.0 conventional anticoagulation INR: 2.5-3.5 high intensity anticoagulation Arden River MD LAB BLOOD ORDERABLES Performing Organization Address [facility] de Phone Number LABORATORY [address] [phone] * (ABNORMAL) D-DIMER (10/03/2023 6:02 PM EST) D-Dimer 0.62(H) <0.50 ug/mL FEU 10/03/2023 6:50 PM EST LABORATORY [facility] Blood Venous blood specimen / Unknown Venipuncture / Unknown 10/03/2023 6:02 PM EST 10/03/2023 6:12 PM EST Narrative LABORATORY [facility] - 10/03/2023 6:50 PM EST Rheumatoid factor at a level above 50 IU/mL may lead to an overestimation of the D-dimer level. A normal D-dimer result (<0.50 ug/mL FEU) has a negative predictive value of approximately 95% for the exclusion of acute pulmonary embolism (PE) or deep vein thrombosis when there is low or moderate pretest PE probability. Increased D-dimer values are abnormal but do not indicate a specific disease state and the D-dimer increase does not definitively correlate with clinical severity of disease. Arden River MD LAB BLOOD ORDERABLES Performing Organization Address City/[facility]/ZIP Co de Phone Number LABORATORY [address] [phone] * (ABNORMAL) TROPONIN T, HIGH SENSITIVITY (10/03/2023 6:02 PM EST) Troponin T, High Sensitivity 38(H) <=14 ng/L 10/03/2023 6:36 PM EST LABORATORY [facility] Blood Venous blood specimen / Unknown Venipuncture / Unknown 10/03/2023 6:02 PM EST 10/03/2023 6:12 PM EST Arden River MD LAB BLOOD ORDERABLES Performing Organization Address [facility] de Phone Number LABORATORY [address] [phone] * (ABNORMAL) BNP, NT-PRO (10/03/2023 6:02 PM EST) BNP, NT-Pro 12,610(H) <300 pg/mL 10/03/2023 6:43 PM EST LABORATORY [facility] Blood Venous blood specimen / Unknown Venipuncture / Unknown 10/03/2023 6:02 PM EST 10/03/2023 6:12 PM EST Narrative LABORATORY [facility] - 10/03/2023 6:43 PM EST Exclude Heart Failure: <300 pg/mL Diagnose Heart Failure: Age <50 yr: >450 pg/mL 50-75 yr: >900 pg/mL >75 yr: >1800 pg/mL GFR is 30-59 mL/min: >1200 pg/mL or Age-adjusted values GFR <30 mL/min: do not use, not reliable Prognostic threshold: 1000 pg/mL Arden Rvier MD LAB BLOOD ORDERABLES Performing Organization Address [facility]/ZIP Co de Phone Number LABORATORY [address] [phone] * (ABNORMAL) COMPREHENSIVE METABOLIC PANEL (10/03/2023 6:02 PM EST) BUN 33(H) 6 - 20 mg/dL 10/03/2023 6:38 PM EST LABORATORY [facility] Creatinine 1.5(H) 0.5 - 1.0 mg/dL 10/03/2023 6:38 PM EST LABORATORY [facility] Estimated Glomerular Filtration Rate 34(L) >=60 mL/min 10/03/2023 6:38 PM EST LABORATORY [facility] Comment:eGFR is calculated b ased on the CKD-EPI 2020 equation Sodium 132(L) 135 - 146 mmol/L 10/03/2023 6:38 PM EST LABORATORY [facility] Potassium 4.1 3.5 - 5.1 mmol/L 10/03/2023 6:38 PM EST LABORATORY [facility] Chloride 96(L) 98 - 107 mmol/L 10/03/2023 6:38 PM EST LABORATORY [facility] CO2 26 22 - 32 mmol/L 10/03/2023 6:38 PM EST LABORATORY [facility] Anion Gap 10 7 - 15 mmol/L 10/03/2023 6:38 PM EST LABORATORY [facility] Glucose 116 70 - 120 mg/dL 10/03/2023 6:38 PM EST LABORATORY [facility] Albumin 3.3(L) 3.8 - 5.0 g/dL 10/03/2023 6:38 PM EST LABORATORY [facility] AST 44(H) 10 - 35 U/L 10/03/2023 6:38 PM EST LABORATORY [facility] Comment:Result may be falsel y elevated due to hemolysis. Alkaline Phosphatase 103 35 - 130 U/L 10/03/2023 6:38 PM EST LABORATORY [facility] Bilirubin, Total 1.2 <=1.2 mg/dL 10/03/2023 6:38 PM EST LABORATORY [facility] Calcium 9.4 8.4 - 10.2 mg/dL 10/03/2023 6:38 PM EST LABORATORY [facility] Protein 7.1 6.0 - 8.3 g/dL 10/03/2023 6:38 PM EST LABORATORY [facility] ALT 25 10 - 35 U/L 10/03/2023 6:38 PM EST LABORATORY [facility] Blood Venous blood specimen / Unknown Venipuncture / Unknown 10/03/2023 6:02 PM EST 10/03/2023 6:12 PM EST Arden River MD LAB BLOOD ORDERABLES Performing Organization Address City/[facility] Co de Phone Number LABORATORY [place] [phone] [place] [address] * EKG (10/03/2023 5:45 PM EST) 10/03/2023 5:45 PM EST Narrative Procedure Note Michell Vaughn MD - 10/03/2023 5:45 PM EST REASON FOR STUDY: SOB CONCLUSIONS: Atrial fibrillation Nonspecific ST and T wave differences Abnormal ECG When compared with ECG of 01-SEP-2023 05:57, Nonspecific T wave abnormality no longer evident in Inferior leads T wave inversion more evident in Lateral leads Ventricular Rate: 60 Atrial Rate: 122 QRS Duration: 104 QT/QTc: 458/458 ms P-R-T [place]: 0 : -28 : 151 degrees Arden River MD EKG Performing Organization Address [facility] de Phone Number [facility] documented in this encounter Visit Diagnoses Diagnosis Acute on chronic respiratory failure with hypoxia (HCC)- Primary SOB (shortness of breath) Shortness of breath Heart failure (HCC) Heart failure, unspecified Chest pain Chest pain, unspecified Acute on chronic heart failure (HCC) Congestive heart failure, unspecified CARLOTA (acute kidney injury) (HCC) Acute kidney failure, unspecified Chronic hyponatremia Hyposmolality and/or hyponatremia Elevated troponin Other abnormal blood chemistry Pulmonary HTN (HCC) Other chronic pulmonary heart diseases Positive D dimer Abnormal coagulation profile Atrial fibrillation (HCC) Atrial fibrillation Prolonged QT interval Nonspecific abnormal electrocardiogram (ECG) (EKG) Acute combined systolic and diastolic CHF, NYHA class 1 (HCC) Acute combined systolic and diastolic heart failure Generalized weakness Other malaise and fatigue Anemia Anemia, unspecified Nonrheumatic aortic valve stenosis Aortic valve disorders documented in this encounter Administered Medications Inactive Administered Medications - up to 3 most recent administrations Medication Order MAR Action Action Date Dose Rate Site Acetaminophen (Tylenol) tab 650 mg 650 mg, Oral, Q6H PRN Pain, Mild, Fever >38C(100.5F), Headache, Starting on Mon10/03/23 at 2055, Until Mon10/05/23 at 2233, Maximum of 4 grams (4000 mg) per day. albumin, human 25 % inj 25 g Intravenous, at 100 mL/hr Administer over 1 Hours, Please scan brick tester "square" 2D barcode to record Lot/ Expiration, ONCE, 1 dose, On Mon10/03/23 at 2130 New Bag 10/03/2023 9:59 PM EST 25 g 100 mL/hr albuterol-ipratropium (Duoneb) inhalation solution 3 mL 3 mL, Nebulizer, Q4H PRN Dyspnea, Starting on Mon10/03/23 at 2117, Until Mon10/05/23 at 2233, 3 mL = 0.5 mg ipratropium/ 2.5 mg albuterol Apixaban (Eliquis) tab 2.5 mg 2.5 mg, Oral, BID (.AM/PM), First dose on Mon10/04/23 at 0900, Until Discontinued Given 10/05/2023 8:21 AM EST 2.5 mg Given 10/04/2023 7:47 PM EST 2.5 mg Given 10/04/2023 9:26 AM EST 2.5 mg aspirin enteric coated tab 81 mg 81 mg, Oral, Daily(AM), First dose on Mon10/04/23 at 0900, Until Discontinued Given 10/05/2023 8:21 AM EST 81 mg Given 10/04/2023 9:26 AM EST 81 mg atorvaSTATin (Lipitor) tab 20 mg 20 mg, Oral, QPM-1999, First dose on Mon10/03/23 at 2315, Until Discontinued Given 10/04/2023 7:47 PM EST 20 mg Given 10/03/2023 11:50 PM EST 20 mg Benzonatate (Tessalon Perles) cap 200 mg 200 mg, Oral, TID PRN Cough, Starting on Mon10/04/23 at 0031, Until Mon10/05/23 at 2233, This med should NOT be Crushed or Chewed Given 10/04/2023 7:47 PM EST 200 mg Given 10/04/2023 12:36 AM EST 200 mg calcium CARBonate (Tums E-X) tab CHEW 750 mg 750 mg, Oral, BID (NOON, 1700), First dose on Mon10/04/23 at 1200, Until Discontinued Given 10/05/2023 5:16 PM EST 750 m g Given 10/05/2023 11:30 AM EST 750 mg Given 10/04/2023 5:02 PM EST 750 mg cholecalciferol (VIT D3) (Vitamin D3) tab 1,000 Units 1,000 Units, Oral, DAILY NOON, First dose on Mon10/04/23 at 1200, Until Discontinued, NOTE: 1000 units = 25 mcg Given 10/05/2023 11:30 AM EST 1,000 Units Given 10/04/2023 11:59 AM EST 1,000 Units CYANOCOBALAMIN (vitamin B-12) tab 1,000 mcg 1,000 mcg, Oral, Daily(AM), First dose on Mon10/04/23 at 0900, Until Discontinued Given 10/05/2023 8:20 AM EST 1,000 mcg Given 10/04/2023 9:25 AM EST 1,000 mcg dorzolamide-timolol (Cosopt Ocumeter Plus) ophthalmic solution 1 Drop 1 Drop, Both eyes, BID (.AM/PM), First dose on Mon10/04/23 at 0900, Until Discontinued Given 10/05/2023 8:22 AM EST 1 Drop Given 10/04/2023 9:29 PM EST 1 Drop Given 10/04/2023 9:30 AM EST 1 Drop fluticasone furoate-vilanterol (BREO ellipta) 100-25 MCG/ACT inhaler 1 Puff 1 Puff, Inhalation, RESPDAILY, First dose on Mon10/04/23 at 0800, Until Discontinued Given 10/05/2023 7:46 AM EST 1 Puf f Given 10/04/2023 11:54 AM EST 1 Puff Furosemide (Lasix) inj 20 mg 20 mg, IV Push, BID (0900, 1600), First dose (after last modification) on Mon10/04/23 at 0900, Until Discontinued Given 10/05/2023 8:22 AM EST 20 mg Given 10/04/2023 4:19 PM EST 20 mg Given 10/04/2023 9:27 AM EST 20 mg Furosemide (Lasix) inj 20 mg 20 mg, IV Push, ONCE, On Mon10/05/23 at 1000, For 1 dose Given 10/05/2023 9:36 AM EST 20 mg Furosemide (Lasix) inj 40 mg 40 mg, IV Push, ONCE, On Mon10/03/23 at 2215, For 1 dose, To be administered AFTER completion of albumin Given 10/03/2023 10:53 PM EST 20 mg Furosemide (Lasix) inj 40 mg 40 mg, IV Push, BID (0900, 1600), First dose (after last modification) on Mon10/05/23 at 1600, Until Discontinued Given 10/05/2023 5:16 PM EST 40 mg Ioversol (Optiray 350) 74 % inj 100 mL 100 mL, Intravenous, ONCE, On Mon10/03/23 at 2000, For 1 dose, Radiology Medication Routing (Non-IR) Given 10/03/2023 7:18 PM EST 100 mL Latanoprost (Xalatan) 0.005 % ophthalmic solution 1 Drop 1 Drop, Both eyes, HS, First dose on Mon10/03/23 at 2330, Until Discontinued Given 10/04/2023 9:29 PM EST 1 Drop Given 10/03/2023 11:50 PM EST 1 Drop methIMAzole (Tapazole) tab 2.5 mg 2.5 mg, Oral, Daily(AM), First dose on Mon10/04/23 at 0900, Until Discontinued, Take 2.5 mg Monday through Monday. Do not take on Monday. Given 10/05/2023 8:20 AM EST 2.5 mg Given 10/04/2023 9:26 AM EST 2.5 mg midodrine (Proamatine) tab 5 mg 5 mg, Oral, TID 06;12;18, First dose on Mon10/04/23 at 1345, Until Discontinued Given 10/05/2023 5:16 PM EST 5 mg Given 10/05/2023 11:30 AM EST 5 mg Given 10/05/2023 6:24 AM EST 5 mg oxygen GAS Inhalation, OXYGEN, First dose on Mon10/04/23 at 0000, Until Discontinued, Device/Managed by: Low Flow Device, Goal SPO2 (%): 91-95, Starting Device: Nasal Cannula, Initial Flow Rate (LPM): 4, Lowest Support: Nasal Cannula: Flow 0-6 LPM. Titrate up/down by 1 LPM., Titration Interval: Q2 minutes and as needed., Notify Provider: For sudden DECREASE in resting SPO2 to less than 85% and when escalating delivery device., Wean patient off Oxygen when the oxygen saturation is greater than or equal to 93% Oxygen On 10/04/2023 8:00 AM EST Oxygen On 10/04/2023 12:00 AM EST 2 L/min(Oxygen) potassium chloride ER tab 10 mEq 10 mEq, Oral, Daily(AM), First dose (after last modification) on Mon10/04/23 at 0900, Until Discontinued Given 10/05/2023 8:21 AM EST 10 mEq Given 10/04/2023 9:26 AM EST 10 mEq potassium chloride ER tab 40 mEq 40 mEq, Oral, ONCE, On Mon10/04/23 at 0945, For 1 dose, This med should NOT be Crushed or Chewed Given 10/04/2023 9:27 AM EST 40 mEq senna-docusate (Senokot-S) 1 Tablet 1 Tablet, Oral, Daily(AM), First dose on Mon10/04/23 at 0900, Until Discontinued Given 10/05/2023 8:20 AM EST 1 Tab let Given 10/04/2023 9:25 AM EST 1 Tablet sodium chloride 0.9 % flush peripheral geovanna 3 mL 3 mL, IV Push, QSHIFT, First dose on Mon10/04/23 at 0000, Until Discontinued, Do not flush if lock, PICC, or central line not in place; IV infusing or unable to flush. Given 10/05/2023 5:16 PM EST 3 mL Given 10/05/2023 8:22 AM EST 3 mL Given 10/05/2023 12:00 AM EST 3 mL sodium chloride 0.9 % flush/inj 3 mL 3 mL, IV Push, PRN Other, Line Patency, Starting on Mon10/03/23 at 2048, Until Mon10/05/23 at 3, Do not flush if lock, PICC, or central line not in place, IV infusing or unable to flush sodium chloride tab 1 g 1 g (1,000 mg), Oral, Daily(AM), First dose on Mon10/04/23 at 0900, Until Discontinued Given 10/05/2023 8:21 AM EST 1 g Given 10/04/2023 9:26 AM EST 1 g trimethobenzamide (Tigan) inj 100 mg 100 mg, Intramuscular, Q6H PRN Nausea, Vomiting, Starting on Mon10/03/23 at 2055, Until Mon10/05/23 at 2233 Vitamin C (Ascorbic Acid) tab 500 mg 500 mg, Oral, DAILY NOON, First dose on Mon10/04/23 at 1200, Until Discontinued Given 10/05/2023 11:30 AM EST 500 mg Given 10/04/2023 11:59 AM EST 500 mg Vitamin E (Aquasol E) cap 400 Units 400 Units, Oral, Daily(AM), First dose on Mon10/04/23 at 0900, Until Discontinued Given 10/05/2023 8:21 AM EST 400 U nits Given 10/04/2023 9:25 AM EST 400 Units documented in this encounter Active and Recently Administered Medications Times are shown in EST. Scheduled Medication Order 10/03/2023 10/04/2023 10/05/2023 albumin, human 25 % inj 25 g (COMPLETED) Intravenous, at 100 mL/hr Administer over 1 Hours, Please scan brick tester "square" 2D barcode to record Lot/ Expiration, ONCE, 1 dose, On Mon10/03/23 at 2130 2159 (New Bag - Provider: Tania Garcia RN) 0600 (Stopped - Provider: Richard Fish, MARTHA) Apixaban (Eliquis) tab 2.5 mg 2.5 mg, Oral, BID (.AM/PM), First dose on Mon10/04/23 at 0900, Until Discontinued 925 (Given - Provider: Richard Fish, MARTHA)1946 (Given - Provider: Piper Freeman RN) 08 (Given - Provider: Hugo Smith, MARTHA) aspirin enteric coated tab 81 mg 81 mg, Oral, Daily(AM), First dose on Mon10/04/23 at 0900, Until Discontinued 925 (Given - Provider: Richard Fish, MARTHA) 820 (Given - Provider: Hugo Smith, MARTHA) atorvaSTATin (Lipitor) tab 20 mg 20 mg, Oral, QPM-1999, First dose on Mon10/03/23 at 2315, Until Discontinued 2350 (Given - Provider: Brian Foster LPN) 1947 (Given - Provider: Piper Freeman RN) calcium CARBonate (Tums E-X) tab CHEW 750 mg 750 mg, Oral, BID (NOON, 1700), First dose on Mon10/04/23 at 1200, Until Discontinued 1159 (Given - Provider: Richard Fish RN)1702 (Given - Provider: Richard Fish RN) 1130 (Given - Provider: Hugo Smith, MARTHA)1716 (Given - Provider: Hugo Smith, MARTHA) cholecalciferol (VIT D3) (Vitamin D3) tab 1,000 Units 1,000 Units, Oral, DAILY NOON, First dose on Mon10/04/23 at 1200, Until Discontinued, NOTE: 1000 units = 25 mcg 1159 (Given - Provider: Richard Fish RN) 1130 (Given - Provider: Hugo Smith, MARTHA) CYANOCOBALAMIN (vitamin B-12) tab 1,000 mcg 1,000 mcg, Oral, Daily(AM), First dose on Mon10/04/23 at 0900, Until Discontinued 0925 (Given - Provider: Richard Fish RN) 0820 (Given - Provider: Hugo Smith RN) dorzolamide-timolol (Cosopt Ocumeter Plus) ophthalmic solution 1 Drop 1 Drop, Both eyes, BID (.AM/PM), First dose on Mon10/04/23 at 0900, Until Discontinued 0930 (Given - Provider: Richard Fish RN)212 (Given - Provider: Tracy Hooper LPN) 0822 (Given - Provider: Hugo Smith, MARTHA) fluticasone furoate-vilanterol (BREO ellipta) 100-25 MCG/ACT inhaler 1 Puff 1 Puff, Inhalation, RESPDAILY, First dose on Mon10/04/23 at 0800, Until Discontinued 1154 (Given - Provider: Alejandra Linn, BARRIE) 0746 (Given - Provider: Alejandra Linn RRT) Furosemide (Lasix) inj 20 mg (CANCELED) 20 mg, IV Push, BID (0900, 1600), First dose (after last modification) on Mon10/04/23 at 0900, Until Discontinued 926 (Given - Provider: Richard Fish RN)161 (Given - Provider: Richard Fish RN) 08 (Given - Provider: Hugo Smith, MARTHA) Furosemide (Lasix) inj 20 mg (COMPLETED) 20 mg, IV Push, ONCE, On Mon10/05/23 at 1000, For 1 dose 0936 (Given - Provider: Hugo Smith, MARTHA) Furosemide (Lasix) inj 40 mg (COMPLETED) 40 mg, IV Push, ONCE, On Mon10/03/23 at 2215, For 1 dose, To be administered AFTER completion of albumin 2253 (Given - Provider: Tania Garcia RN - Comment: provider at bedside- discussed would like to only administer 20mg) Furosemide (Lasix) inj 40 mg 40 mg, IV Push, BID (0900, 1600), First dose (after last modification) on Mon10/05/23 at 1600, Until Discontinued 171 (Given - Provider: Hugo Smith RN) Ioversol (Optiray 350) 74 % inj 100 mL (COMPLETED) 100 mL, Intravenous, ONCE, On Mon10/03/23 at 2000, For 1 dose, Radiology Medication Routing (Non-IR) 191 (Given - Provider: Bianka Oshea, RT (R)) Latanoprost (Xalatan) 0.005 % ophthalmic solution 1 Drop 1 Drop, Both eyes, HS, First dose on Mon10/03/23 at 2330, Until Discontinued 2350 (Given - Provider: Brian Foster LPN) 2128 (Given - Provider: Tracy Hooper LPN) methIMAzole (Tapazole) tab 2.5 mg 2.5 mg, Oral, Daily(AM), First dose on Mon10/04/23 at 0900, Until Discontinued, Take 2.5 mg Monday through Monday. Do not take on Monday. 925 (Given - Provider: Richard Fish RN) 08 (Given - Provider: Hugo Smith, MARTHA) midodrine (Proamatine) tab 5 mg 5 mg, Oral, TID 06;12;18, First dose on Mon10/04/23 at 1345, Until Discontinued 1351 (Given - Provider: Richard Fish RN)1702 (Given - Provider: Richard Fish RN) 0624 (Given - Provider: Tracy Hooper LPN)1130 (Given - Provider: Hugo Smith, MARTHA)1716 (Given - Provider: Hugo Smith, MARTHA) oxygen GAS Inhalation, OXYGEN, First dose on Mon10/04/23 at 0000, Until Discontinued, Device/Managed by: Low Flow Device, Goal SPO2 (%): 91-95, Starting Device: Nasal Cannula, Initial Flow Rate (LPM): 4, Lowest Support: Nasal Cannula: Flow 0-6 LPM. Titrate up/down by 1 LPM., Titration Interval: Q2 minutes and as needed., Notify Provider: For sudden DECREASE in resting SPO2 to less than 85% and when escalating delivery device., Wean patient off Oxygen when the oxygen saturation is greater than or equal to 93% 0000 (Oxygen On - Provider: Tania Garcia RN)0800 (Oxygen On - Provider: Richard Fish RN)1600 (Oxygen Off - Provider: Richard Fish RN) 0000 (Oxygen Off - Provider: Piper Freeman RN)0822 (Oxygen Off - Provider: Hugo Smith, MARTHA)1716 (Oxygen Off - Provider: Hugo Smith, MARTHA) potassium chloride ER tab 10 mEq 10 mEq, Oral, Daily(AM), First dose (after last modification) on Mon10/04/23 at 0900, Until Discontinued 09 (Given - Provider: Richard Fish RN) 08 (Given - Provider: Hugo Smith, MARTHA) potassium chloride ER tab 40 mEq (COMPLETED) 40 mEq, Oral, ONCE, On Mon10/04/23 at 0945, For 1 dose, This med should NOT be Crushed or Chewed 09 (Given - Provider: Richard Fish RN) senna-docusate (Senokot-S) 1 Tablet 1 Tablet, Oral, Daily(AM), First dose on Mon10/04/23 at 0900, Until Discontinued 09 (Given - Provider: Richard Fish RN) 0820 (Given - Provider: Hugo Smith RN) sodium chloride 0.9 % flush peripheral geovanna 3 mL 3 mL, IV Push, QSHIFT, First dose on Mon10/04/23 at 0000, Until Discontinued, Do not flush if lock, PICC, or central line not in place; IV infusing or unable to flush. 0000 (Given - Provider: Tania Garcia RN)0930 (Given - Provider: Richard Fish RN)1619 (Given - Provider: Richard Fish RN) 0000 (Given - Provider: Piper Freeman RN)0822 (Given - Provider: Hugo Smith, MARTHA)1716 (Given - Provider: Hugo Smith, MARTHA) sodium chloride tab 1 g 1 g (1,000 mg), Oral, Daily(AM), First dose on Mon10/04/23 at 0900, Until Discontinued 0926 (Given - Provider: Richard Fish RN) 0821 (Given - Provider: Hugo Smith RN) Vitamin C (Ascorbic Acid) tab 500 mg 500 mg, Oral, DAILY NOON, First dose on Mon10/04/23 at 1200, Until Discontinued 1159 (Given - Provider: Richard Fish RN) 1130 (Given - Provider: Hugo Smith, MARTHA) Vitamin E (Aquasol E) cap 400 Units 400 Units, Oral, Daily(AM), First dose on Mon10/04/23 at 0900, Until Discontinued 0925 (Given - Provider: Richard Fish RN) 0821 (Given - Provider: Hugo Smith, MARTHA) PRN Medication Order 10/03/2023 10/04/2023 10/05/2023 Acetaminophen (Tylenol) tab 650 mg 650 mg, Oral, Q6H PRN Pain, Mild, Fever >38C(100.5F), Headache, Starting on Mon10/03/23 at 205, Until Mon10/05/23 at 2232, Maximum of 4 grams (4000 mg) per day. albuterol-ipratropium (Duoneb) inhalation solution 3 mL 3 mL, Nebulizer, Q4H PRN Dyspnea, Starting on Mon10/03/23 at 211, Until Mon10/05/23 at 2233, 3 mL = 0.5 mg ipratropium/ 2.5 mg albuterol Benzonatate (Tessalon Perles) cap 200 mg 200 mg, Oral, TID PRN Cough, Starting on Mon10/04/23 at 0031, Until Mon10/05/23 at 2233, This med should NOT be Crushed or Chewed 35 (Given - Provider: Brandon Foster LPN)1946 (Given - Provider: Piper Freeman RN) Bisacodyl (Dulcolax) supp 10 mg 10 mg, Rectal, PRN Constipation, Starting on Mon10/03/23 at 2231, Until Mon10/05/23 at 2233 sodium chloride 0.9 % flush/inj 3 mL 3 mL, IV Push, PRN Other, Line Patency, Starting on Mon10/03/23 at 204, Until Mon10/05/23 at 2233, Do not flush if lock, PICC, or central line not in place, IV infusing or unable to flush trimethobenzamide (Tigan) inj 100 mg 100 mg, Intramuscular, Q6H PRN Nausea, Vomiting, Starting on Mon10/03/23 at 2055, Until Mon10/05/23 at 2233 documented in this encounter Additional Health Concerns Infection Onset Date Last Indicated Resolved Time Respiratory Rule-Out 10/03/2023 10/03/2023 024 7:31 PM EST COVID-19 Rule-Out 10/03/2023 10/03/2023 10/03/2023 7:31 PM EST documented as of this encounter Advance Directives [...] the patient have Health Care Power of Bed Manager? No Code Status History Code Status Date Activated Date Inactivated Comments Full Code 08/29/2023 8:14 PM 09/01/2023 6:46 PM This o rder reflects the patients wishes and were consensually agreed upon. Question Answer Comments Discussion of Advance Directives occurred with: Patient Does the patient have a Living Will? No Does the patient have Health Care Power of Bed Manager? No Full Code 08/19/2023 2:26 PM 08/25/2023 7:30 PM This order reflects the patients wishes and were consensually agreed upon. Question Answer Comments Discussion of Advance Directives occurred with: Patient Does the patient have a Living Will? No Does the patient have Health Care Power of Bed Manager? No Full Code 07/30/2023 11:50 AM 08/02/2023 5:34 PM This order reflects the patients wishes and were consensually agreed upon. Question Answer Comments Discussion of Advance Directives occurred with: Patient Full Code 10/01/2021 4:02 PM 10/05/2021 5:45 PM This or aydin reflects the patients wishes and were consensually agreed upon. Care Teams Uniform Attendant Relationship Specialty Start Date End Date Jeanna Bal PA-C [address] [place] [address] BOB [id number] PCP - General Physician Lead Caster Helper 06/13/17 documented as of this encounter
--- OUTSIDE RECORDS SUMMARY | 2023-12-06 21:46 | External Medical Summary ---
Author Name Unknown Address Unknown Organization K1G:LABORATORY [facility] - [address] [place] [id number] Laboratory Report Ordering Provider Test Date Status OPHELIA SCHWARZ 10/05/2023 05:52:00 Final Observation Date Value Abnormality Reference (Units ) Status WBC, Total 10/05/2023 05:52:00 10.32 4.00-10.8 0 (K/uL) Final RBC 10/05/2023 05:52:00 4.10 3.85-5.15 (M/uL) Final Hemoglobin 10/05/2023 05:52:00 11.9 Below low normal 12 .0-15.3 (g/dL) Final HCT 10/05/2023 05:52:00 38.1 36.0-45.2 (%) Final MCV 10/05/2023 05:52:00 92.9 81.5-97.5 (fL) Final MCH 10/05/2023 05:52:00 29.0 27.0-34.0 (pg) Final MCHC 10/05/2023 05:52:00 31.2 32.0-36.0 (g/dL) Final RDW 10/05/2023 05:52:00 17.5 11.5-15.5 (%) Final Platelets 10/05/2023 05:52:00 269 140-400 (K /uL) Final MPV 10/05/2023 05:52:00 9.6 6.6-11.1 ( fL) Final Performing Location LABORATORY [facility] - [address] [place] [id number]
--- OUTSIDE RECORDS SUMMARY | 2023-12-06 21:46 | External Medical Summary ---
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
--- OUTSIDE RECORDS SUMMARY | 2023-12-06 21:46 | External Medical Summary ---
Author Name Unknown Address Unknown Organization K01:[facility] [place] [address] [place] [address] Laboratory Report Ordering Provider Test Date Status OPHELIA SCHWARZ 10/04/2023 06:29:00 Final Observation Date Value Abnormality Reference (Units ) Status Retic, % (auto) 10/04/2023 06:29:00 3.91 Above high normal 0.80-1.90 (%) Final Reticulocytes, Absolute 10/04/2023 06:29:00 149.0 Above high normal 31.3-100.1 (K/uL) Final Reticulocyte fraction, immature 10/04/2023 06:29:00 36.6 Above high normal 2.5-20.6 (%) Final Reticulocyte HGB 10/04/2023 06:29:00 28.3 Below low normal 29.7-37.4 (pg) Final Performing Location LAB[facility]ORY [facility] [place] [address] [place] [address]
--- OUTSIDE RECORDS SUMMARY | 2023-12-06 21:46 | External Medical Summary ---
Author Name Unknown Address Unknown Organization K1G:LABORATORY [facility] - [facility] [address] Laboratory Report Ordering Provider Test Date Status OPHELIA SCHWARZ 10/05/2023 05:52:00 Final Observation Date Value Abnormality Reference (Units ) Status Phosphate 10/05/2023 05:52:00 3.4 2.5-4.8 (m g/dL) Final Performing Location LABORATORY [facility] - [address] [facility] [id number]
--- OUTSIDE RECORDS SUMMARY | 2023-12-06 21:47 | External Medical Summary | Summary of Care ---
Author Name Unknown Organization [facility] Address [address] [place] [address] Phone [phone] Care Team Providers Care Accountant Assistant Name Role Phone Jeanna Bal PA-C Primary Care Provi aydin Reason for Visit * Reason Comments Constipation * Auth/Cert Specialty Diagnoses / Procedures Referred By Kasey nagy Referred To Contact [facility] [address] [place] [address] Phone: [phone] Emergency Medicine [facility] [address] [id number] Referral ID Status Reason Start Date Expiration Date Visits Re quested Visits Authorized [id number] Encounter Details Date Type Department Care Team (Late st Contact Info) Description 09/30/2023 2:23 PM EST - 09/30/2023 3:24 PM EST Emergency [facility] ([facility]) [address] [place] [address] Yassine Nobles MD [address] [place] [address] Constipation, unspecified constipation type (Primary Dx) Discharge Disposition: Home - Self Care Allergies Active Allergy Reactions Criticality Noted Date Comments Amoxicillin Hives Medium 03/22/2016 Gatifloxacin Nausea/vomiting Medium 03/22/2016 Latex Rash Medium 03/22/2016 Other reaction(s): johnson documented as of this encounter (statuses as of 10/01/2023) Medications Medication Sig Dispensed Refills Start Date End Date Status Aspirin 81 MG TBEC Take 1 Tablet by mouth in the morning. 0 12/12/2015 Active cholecalciferol, VIT D3, (VITAMIN D3) 1000 UNITS Tablet Take 2 Tablets by mouth daily at noon. 0 06/08/2015 [...] by mouth in the morning. 0 Active Magnesium Oxide 400 MG Oral Tablet Take 1 Tablet by mouth in the morning and 1 Tablet before bedtime. 0 03/21/2020 Active methIMAzole 5 MG Oral Tablet (TAPAZOLE) Take 1/2 tablet 6 days per week does not take on monday 0 05/27/2020 Active Atorvastatin Calcium 20 MG Oral Tablet (Lipitor) Take 1 Tablet by mouth daily. 90 Tablet 6 06/17/2021 Active Additional Information Patient taking differently:20 mg OralHS, Reported on 07/30/2023 Potassium Chloride ER 10 MEQ Oral Capsule Extended Release Take 2 Capsules by mouth in the morning and 2 Capsules before bedtime. 0 11/07/2022 Active Ipratropium-Albute rol [...] the evening. 90 Tablet 0 08/25/2023 Active Benzonatate 100 MG Oral Capsule Take 2 Capsules by mouth 3 times a day as needed for Cough. 30 Capsule 0 08/25/2023 Active Nystatin [id number] UNIT/ML Mouth/Throat SuspensionIndicati ons:Oral Candidiasis Swish and swallow 5 mL in the morning and 5 mL at noon and 5 mL in the evening and 5 mL before bedtime. 0 08/29/2023 Active Apixaban 2.5 MG Oral Tablet (Eliquis) Take 1 Tablet by mouth in the morning and 1 Tablet before bedtime. 60 Tablet 0 09/01/2023 10/01/2023 Active Torsemide 20 MG Oral Tablet (Demadex) Take 1 Tablet by mouth in the morning and 1 Tablet before bedtime. 60 Tablet 0 09/01/2023 10/01/2023 Active Sodium Chloride 1 GM Oral Tablet Take 1 Tablet by mouth in the morning. 0 Active Sennosides-Docusat e Sodium 8.6-50 MG Oral Tablet (Senna-S) Take 1 Tablet by mouth in the morning. 0 Active Dorzolamide HCl-Timolol Mal 2-0.5 % Ophthalmic Solution (Cosopt) Instill 1 Drop into eye in the morning and 1 Drop before bedtime. 0 Active Preparation H 1-0.25-14.4-15 % External Cream (Xsgkiz-JQ-Esncuti n-Petrolatum) Apply 1 Application topically to affected area every 8 hours as needed for Hemorrhoids. Apply to rectal area 0 Active Bisacodyl 10 MG Rectal Suppository (Dulcolax) Administer 1 Suppository into the rectum as needed for Constipation. 0 Active Latanoprost 0.005 % Ophthalmic Solution (Xalatan) 1 Drop at bedtime. 0 Active polyethylene glycol 3350 119 gram OR POWD Take 17 g by mouth as needed for Constipation. 0 Active Acetaminophen 325 MG Oral Capsule Take 2 Tablets by mouth as needed for Other (Temp above 100.5 or pain). 0 Active Enema Disposable Rectal Enema Administer 1 Application into the rectum as needed for Constipation. 0 Active Hospital, Clinic, or Other Facility Administered Medication Ordered Dose Route Frequency Start Date End Date Status Albuterol Sulfate (Proventil) (2.5 MG/3ML) 0.083% inhalation solution 2.5 mgIndications:SOB (shortness of breath),Abnormal CT of the chest 2.5 mg NEBULIZER PRN 08/08/2023 Active documented as of this encounter (statuses as of 10/01/2023) Active Problems Problem Noted Date Diagnosed Date Chronic heart failure with preserved ejection fr action 08/31/2023 Atrial fibrillation 08/31/2023 Chronic hyponatremia 08/31/2023 Positive D dimer 08/30/2023 Influenza A 08/29/2023 Pulmonary HTN 08/29/2023 Elevated troponin 08/29/2023 Acute hyponatremia 08/29/2023 Generalized weakness 08/29/2023 Thrombocytopenia 08/29/2023 New onset atrial fibrillation 08/29/2023 Petechial rash 08/29/2023 Oral thrush 08/29/2023 Respiratory failure, acute 08/19/2023 CAP (community acquired pneumonia) 08/19/2023 Acute decompensated heart failure 08/19/2023 Acute on chronic combined sy stolic and diastolic heart failure due to valvular disease 07/30/2023 Graves disease 09/30/2021 Hypertrophic cardiomyopathy 06/21/2020 Nonrheumatic mitral valve stenosis 06/21/2020 Ascending aortic 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 Coronary artery disease invo lving [place] coronary artery of [place] heart without angina pectoris 03/22/2016 Essential hypertension with goal blood pressure less than 140/90 03/22/2016 Dyslipidemia, goal to be determined 03/22/2016 documented as of this encounter (statuses as of 10/01/2023) Resolved Problems Problem Noted Date Diagnosed Date Resolved Date Acute respiratory failure due to COVID-19 07/30/2023 08/01/2023 Pneumonia due to COVID-19 virus 07/30/2023 08/01/2023 NSTEMI (non-ST elevated myoc ardial infarction) 09/30/2021 10/05/2021 Pain in both lower extremities 03/22/2016 07/30/2023 documented as of this encounter (statuses as of 10/01/2023) Immunizations Name Administration Dates Next Due COVID-19 [...] Sign Reading Time Taken Comments Blood Pressure 110/76 09/30/2023 3:22 PM EST Pulse 75 09/30/2023 3:22 PM EST Temperature 36.6 C (97.8 F) 09/30/2023 3:22 PM ES T Respiratory Rate 18 09/30/2023 3:22 PM EST Oxygen Saturation 96% 09/30/2023 3:22 PM EST Inhaled Oxygen Concentration - - Weight - - Height - - Body Mass Index - - documented in this encounter Functional Status Functional Status Response Date of Assess ment Are you deaf or do you have serious difficulty h earing? No 08/29/2023 Are you blind or do you have serious difficulty seeing, even when wearing glasses? No 08/29/2023 Do you have serious difficul ty walking or climbing stairs? (5 years old or older) Yes 08/29/2023 Do you have difficulty dress ing or bathing? (5 years old or older) Yes 08/29/2023 Because of a physical, menta l, or emotional condition, do you have difficulty doing errands alone such as visiting a doctor s office or shopping? (15 years old or older) Yes 08/29/19 Cognitive Status Response Date of Assessm ent Because of a physical, menta l, or emotional condition, do you have serious difficulty concentrating, remembering, or making decisions? (5 years old or older) No 08/29/2023 documented as of this encounter Discharge Instructions * Discharge Instructions* Yassine Nobles MD - 09/30/2023 3:19 PM EST Take Senokot for 2-3 days Use Metamucil/MiraLax daily for prevention of constipation documented in this encounter ED Notes * Yassine Nobles MD - 09/30/2023 2:31 PM EST HISTORY OF PRESENT ILLNESS Maria Luisa Recinos is a 87 year old female who presents to the ED for evaluation of Constipation. The patient was seen at 09/30/23 1427. 87-year-old female with past medical history of hypertrophic cardiomyopathy/heart failure, CAD, atrial fibrillation on Eliquis presents with constipation. Patient reports she has not had a bowel movement since . Has the need to go feels that she has stool at her rectum but is unable to pass any stool. She recently was discharged from a nursing facility, where she had been taking Senokot daily. This was discontinued when she went home and she feels this is contributing to her constipation. She has significant discomfort. The patient's allergies, past history, and medications were reviewed. PHYSICAL EXAM Initial Vitals (see all): BP 132/88 | Pulse 77 | Resp 21 | Temp 97.7 | O2 94 %Weight 88.91 kg | Height 154.9 cm | BMI 37.03 kg/m2 Initial Pain Assessment (see all): 10 (severe pain)/10, Pressure, location: rectum ([facility] Adult Scale 0-10) Physical Exam Vitals and nursing note reviewed. Exam conducted with a embossing tool setter present. Constitutional: General: She is in acute distress. Appearance: She is obese. She is not ill-appearing or toxic-appearing. HENT: Head: Normocephalic. Right Ear: External ear normal. Left Ear: External ear normal. Nose: Nose normal. Mouth/Throat: Mouth: Mucous membranes are moist. Eyes: Extraocular Movements: Extraocular movements intact. Pupils: Pupils are equal, round, and reactive to light. Cardiovascular: Rate and Rhythm: Normal rate. Pulses: Normal pulses. Pulmonary: Effort: Pulmonary effort is normal. Abdominal: General: Abdomen is flat. Bowel sounds are normal. Comments: Suprapubic discomfort Genitourinary: Rectum: Tenderness present. Comments: Large, hard ball of stool Skin: General: Skin is warm. Capillary Refill: Capillary refill takes less than 2 seconds. Neurological: General: No focal deficit present. Mental Status: She is alert. Psychiatric: Mood and Affect: Mood normal. PROCEDURES AND TREATMENTS ED Orders | ED Results MEDICAL DECISION MAKING Nursing notes and vital signs were reviewed. ED Course as of 09/30/23 1623 Sat Sep 30, 2023 1431 Vitals reviewed, age-appropriate [GS] 1446 Bedside rectal disimpaction completed with remove some stool. Will provide enema and monitor for response. Patient notes mild improvement after disimpaction [GS] 1519 Patient was able to pass a large bowel movement after Fleet enema. She reports significant improvement incomplete resolution of her discomfort. She is comfortable plan for DC and outpatient management. Discussed preventative measures and return precautions. [GS] ED Course User Index [GS] Yassine Nobles MD Differential Diagnoses Based on my history, physical exam, and evaluation, the differential includes, but is not limited, to the following diagnoses: Constipation. Problems Addressed: Constipation, unspecified constipation type: acute illness or injury Risk OTC drugs. Clinical Impressions Constipation, unspecified constipation type Disposition Discharged. The patient's condition at disposition was: stable. Yassine Nobles documented in this encounter Miscellaneous Notes * Pt Handout (on AVS) - Yassine Nobles MD - 09/30/2023 3:20 PM EST Images from the original note were not included. [id number] Constipation (Adult) Constipation means that you have bowel movements that are less frequent than usual. Stools often become very hard and difficult to pass. Constipation is very common. At some point in life, it affects almost everyone. Since everyone's bowel habits are different, what is constipation to one person may not be to another. Your healthcare provider may do tests to diagnose constipation. It depends on what they find when evaluating you. Symptoms of constipation include: Abdominal pain Bloating Vomiting Painful bowel movements Itching, swelling, bleeding, or pain around the anus Causes Constipation can have many causes. These include: Diet low in fiber Too much dairy Not drinking enough liquids Lack of exercise or physical activity (especially true for older adults) Changes in lifestyle or daily routine, including , aging, work, and travel Frequent use or misuse of laxatives Ignoring the urge to have a bowel movement or delaying it until later Medicines, such as certain prescription pain medicines, iron supplements, antacids, certain antidepressants, and calcium supplements Diseases like irritable bowel syndrome, bowel obstructions, stroke, diabetes, thyroid disease, Parkinson disease, hemorrhoids, and colon cancer Complications Possible complications of constipation can include: Hemorrhoids Rectal bleeding from hemorrhoids or anal fissures (skin tears) Hernias Chronic constipation Fecal impaction, a severe form of constipation in which a large amount of hard stool is in your rectum that you can't pass Bowel obstruction or perforation Home care All treatment should be done after talking with your healthcare provider. This is especially true if you have another medical problem, are taking prescription medicines, or are an older adult. Treatment most often involves lifestyle changes. You may also need medicines. Your healthcare provider will tell you which will work best for you. Follow the advice below to help avoid this problem in the future. Lifestyle changes These lifestyle changes can help prevent constipation: Diet. Eat a high-fiber diet, with fresh fruit and vegetables, and reduce dairy intake, meats, and processed foods Fluids. It's important to get enough fluids each day. Drink plenty of water when you eat more fiber. If you are on diet that limits the amount of fluid you can have, talk about this with your healthcare provider. Regular exercise. Check with your healthcare provider first. Medicines Take any medicines as directed. Some laxatives are safe to use only every now and then. Others can be taken on a regular basis. While laxatives don't cause bowel dependence, they are treating the symptoms. So your constipation may return if you don't make other changes. Talk with your healthcare provider or pharmacist if you have questions. Prescription pain medicines can cause constipation. If you are taking this kind of medicine, ask your healthcare provider if you should also take a stool softener. Medicines you may take to treat constipation include: Fiber supplements Stool softeners Laxatives Enemas Rectal suppositories Follow-up care Follow up with your healthcare provider if symptoms don't get better in the next few days. You may need to have more tests or see a specialist. Call 911 Call 911 if any of these occur: Trouble breathing Stiff, rigid abdomen that is severely painful to touch Large amount of blood in the stool Confusion Fainting or loss of consciousness Rapid heart rate Chest pain When to seek medical advice Call your healthcare provider right away if any of these occur: Fever of 100.4F (38C) or higher, or as directed by your healthcare provider Failure to resume normal bowel movements Pain in your abdomen or back gets worse Nausea or vomiting Swelling in your abdomen Small amount of blood in the stool Black, tarry stool Involuntary weight loss Weakness Last Reviewed Date: 07/31/202119996029-6377 [employer]. All rights reserved. This information is not intended as a substitute for professional medical care. Always follow your healthcare professional's instructions. * ED Roller Coaster Designer Note - Jojo Almanzar, MARTHA - 09/30/2023 2:24 PM EST Pt presents with daughter for constipation. Last BM was . Pt took two dulcolax today at 0830 and 1200. documented in this encounter Plan of Treatment Upcoming Encounters Date Type Department Care Team (Late st Contact Info) Description 10/05/2023 8:00 AM EST Telemedicine Nephrology, [address] [place] [address] Viktor Nicole MD [address] [place] [address] 10/12/2023 3:30 PM EDT [facility] [id number] Jennifer [facility]C [facility] [id number] 10/16/2023 12:30 PM EDT PulmDiagnostic Pulmonary Function Lab, [address] [place] [address] Gjsh, Pulm Fun Tech [address] [place] [address] 11/07/2023 8:30 AM EDT Telemedicine Pulmonary Medicine, [address] [place] [address] Yocasta Proctor CRNP [address] [place] [address] Health Maintenance Due Date Last Done Comments [...] 1 Enema 1 Enema, Rectal, ONCE, On 09/30/23 at 1515, For 1 dose Given 09/30/2023 2:52 PM EST 1 Enema documented in this encounter Active and Recently Administered Medications Times are shown in EST. Scheduled Medication Order 09/28/2023 09/29/2023 09/30/2023 FLEET ADULT enema 1 Enema (COMPLETED) 1 Enema, Rectal, ONCE, On 09/30/23 at 1515, For 1 dose 1452 (Given - Provid er: Ting Hennessy RN) documented in this encounter Advance Directives [...] the patient have Health Care Power of Precision Printing Worker? No Code Status History Code Status Date Activated Date Inactivated Comments Full Code 08/19/2023 2:26 PM 08/25/2023 7:30 PM This order reflects the patients wishes and were consensually agreed upon. Question Answer Comments Discussion of Advance Directives occurred with: Patient Does the patient have a Living Will? No Does the patient have Health Care Power of Precision Printing Worker? No Full Code 07/30/2023 11:50 AM 08/02/2023 5:34 PM This order reflects the patients wishes and were consensually agreed upon. Question Answer Comments Discussion of Advance Directives occurred with: Patient Full Code 10/01/2021 4:02 PM 10/05/2021 5:45 PM This or aydin reflects the patients wishes and were consensually agreed upon. Full Code 09/30/2021 6:02 PM 10/01/2021 3:38 PM This or aydin reflects the patients wishes and were consensually agreed upon. Question Answer Comments Discussion of Advance Directives occurred with: Patient/Family Does the patient have a Living Will? No Does the patient have Health Care Power of Precision Printing Worker? No Care Teams Accountant Assistant Relationship Specialty Start Date End Date Jeanna Bal PA-C [address] [facility] [address] [place] [address] [place] [id number] PCP - General Physician Air Carrier Operations Inspector 06/13/17 documented as of this encounter"
--- OUTSIDE RECORDS SUMMARY | 2023-12-06 21:47 | External Medical Summary ---
Author Name Unknown Address Unknown Organization K1G:LABORATORY [facility] - [address] [place] [id number] Laboratory Report Ordering Provider Test Date Status SONIA SILVA 10/03/2023 18:02:09 Final Observation Date Value Abnormality Reference (Units ) Status WBC, Total 10/03/2023 18:02:09 9.67 4.00-10.8 0 (K/uL) Final RBC 10/03/2023 18:02:09 3.98 3.85-5.15 (M/uL) Final Hemoglobin 10/03/2023 18:02:09 11.7 Below low normal 12 .0-15.3 (g/dL) Final HCT 10/03/2023 18:02:09 36.9 36.0-45.2 (%) Final MCV 10/03/2023 18:02:09 92.7 81.5-97.5 (fL) Final MCH 10/03/2023 18:02:09 29.4 27.0-34.0 (pg) Final MCHC 10/03/2023 18:02:09 31.7 32.0-36.0 (g/dL) Final RDW 10/03/2023 18:02:09 17.4 11.5-15.5 (%) Final Platelets 10/03/2023 18:02:09 263 140-400 (K /uL) Final MPV 10/03/2023 18:02:09 9.3 6.6-11.1 ( fL) Final Performing Location LABORATORY [facility] - [address] [place] [phone]
--- OUTSIDE RECORDS SUMMARY | 2023-12-06 21:47 | External Medical Summary ---
Author Name Unknown Address Unknown Organization K1G:LABORATORY [facility] - [facility] [address] Laboratory Report Ordering Provider Test Date Status LARA BLAKE 10/03/2023 18:02:09 Final Observation Date Value Abnormality Reference (Units ) Status Magnesium 10/03/2023 18:02:09 2.3 1.5-2.6 (m g/dL) Final Performing Location LABORATORY [facility] - [address] [facility] [phone]
--- OUTSIDE RECORDS SUMMARY | 2023-12-06 21:47 | External Medical Summary ---
Author Name Unknown Address Unknown Organization K1G:LABORATORY [facility] - [facility] [address] Laboratory Report Ordering Provider Test Date Status LARA BLAKE 10/04/2023 06:29:00 Final Observation Date Value Abnormality Reference (Units ) Status Magnesium 10/04/2023 06:29:00 2.3 1.5-2.6 (m g/dL) Final Performing Location LABORATORY [facility] - [address] [facility] [phone]
--- OUTSIDE RECORDS SUMMARY | 2023-12-06 21:47 | External Medical Summary ---
Author Name Unknown Address Unknown Organization K1G:LABORATORY [facility] - [address] [facility] [address] Laboratory Report Ordering Provider Test Date Status SONIA SILVA 10/03/2023 18:02:09 Final Observation Date Value Abnormality Reference (Units ) Status BUN 10/03/2023 18:02:09 33 Above high normal 6-20 (mg/dL) Final Creatinine 10/03/2023 18:02:09 1.5 Above high normal 0.5-1.0 (mg/dL) Final Glomerular filtration rate/1.73 sq M.predicted [Volume Rate/Area] in Serum, Plasma or Blood by Creatinine-based formula (CKD-EPI) 10/03/2023 18:02:09 34 Below low normal >=60 (mL/min) Final eGFR is calculated based on the CKD-EPI 2020 equation SODIUM 10/03/2023 18:02:09 132 Below low normal 135 -146 (mmol/L) Final Potassium 10/03/2023 18:02:09 4.1 3.5-5.1 (m mol/L) Final Cl 10/03/2023 18:02:09 96 Below low normal 98- 107 (mmol/L) Final CO2 10/03/2023 18:02:09 26 22-32 (mmo l/L) Final Anion gap 10/03/2023 18:02:09 10 7-15 (mmol /L) Final Glucose 10/03/2023 18:02:09 116 70-120 (mg /dL) Final Albumin 10/03/2023 18:02:09 3.3 Below low normal 3.8 -5.0 (g/dL) Final AST (Aspartate aminotransferase) 10/03/2023 18:02:09 44 Above high normal 10-35 (U/L) Final Result may be falsely elevat ed due to hemolysis. Alk Phos 10/03/2023 18:02:09 103 35-130 (U/ L) Final Bilirubin, Total 10/03/2023 18:02:09 1.2 <=1 .2 (mg/dL) Final Calcium 10/03/2023 18:02:09 9.4 8.4-10.2 ( mg/dL) Final Protein 10/03/2023 18:02:09 7.1 6.0-8.3 (g /dL) Final ALT (Alanine aminotransferase) 10/03/2023 18:02:09 25 10-35 (U/L) Final Performing Location LABORATORY [facility] - [address] [place] [phone]
--- OUTSIDE RECORDS SUMMARY | 2023-12-06 21:47 | External Medical Summary ---
Author Name Unknown Address Unknown Organization K01:LABORATORY [facility] [place] - [address] [place] [address] Laboratory Report Ordering Provider Test Date Status LARA BLAKE 10/03/2023 22:17:02 Final Observation Date Value Abnormality Reference (Units ) Status Osmolality, Urine 10/03/2023 22:17:02 285 50 -1200 (mOsm/kg) Final Performing Location LABORATORY [facility] - [address] [place] [address]
--- OUTSIDE RECORDS SUMMARY | 2023-12-06 21:47 | External Medical Summary ---
Author Name Unknown Address Unknown Organization K1G:LABORATORY [facility] - [address] [place] [id number] Laboratory Report Ordering Provider Test Date Status SONIA SILVA 10/03/2023 19:31:26 Final Observation Date Value Abnormality Reference (Units ) Status Troponin T 10/03/2023 19:31:26 37 Above high normal < =14 (ng/L) Final Performing Location LABORATORY [facility] - [address] [place] [phone]
--- OUTSIDE RECORDS SUMMARY | 2023-12-06 21:47 | External Medical Summary ---
Author Name Unknown Address Unknown Organization K01:LABORATORY [facility] [place] - [address] [place] [address] Laboratory Report Ordering Provider Test Date Status LARA BLAKE 10/03/2023 22:17:02 Final Observation Date Value Abnormality Reference (Units ) Status Sodium, Urine 10/03/2023 22:17:02 68 (mmol/ L) Final Performing Location LABORATORY C - [address] [place] [address]
--- OUTSIDE RECORDS SUMMARY | 2023-12-06 21:47 | External Medical Summary ---
Author Name Unknown Address Unknown Organization K1G:LABORATORY [facility] - [address] [place] [phone] Laboratory Report Ordering Provider Test Date Status LARA BLAKE 10/04/2023 00:55:00 Final Observation Date Value Abnormality Reference (Units ) Status BUN 10/04/2023 00:55:00 31 Above high normal 6-20 (mg/dL) Final Creatinine 10/04/2023 00:55:00 1.4 Above high normal 0.5-1.0 (mg/dL) Final Glomerular filtration rate/1.73 sq M.predicted [Volume Rate/Area] in Serum, Plasma or Blood by Creatinine-based formula (CKD-EPI) 10/04/2023 00:55:00 38 Below low normal >=60 (mL/min) Final eGFR is calculated based on the CKD-EPI 2020 equation SODIUM 10/04/2023 00:55:00 133 Below low normal 135 -146 (mmol/L) Final Potassium 10/04/2023 00:55:00 3.3 Below low normal 3.5 -5.1 (mmol/L) Final Cl 10/04/2023 00:55:00 97 Below low normal 98- 107 (mmol/L) Final CO2 10/04/2023 00:55:00 26 22-32 (mmo l/L) Final Anion gap 10/04/2023 00:55:00 10 7-15 (mmol /L) Final Glucose 10/04/2023 00:55:00 90 70-120 (mg /dL) Final Calcium 10/04/2023 00:55:00 9.4 8.4-10.2 ( mg/dL) Final Performing Location LABORATORY [facility] - [address] [facility] [phone]
--- OUTSIDE RECORDS SUMMARY | 2023-12-06 21:47 | External Medical Summary ---
Author Name Unknown Address Unknown Organization K1G:LABORATORY [facility] - [address] [facility] [address] Laboratory Report Ordering Provider Test Date Status LARA BLAKE 10/04/2023 06:29:00 Final Observation Date Value Abnormality Reference (Units ) Status BUN 10/04/2023 06:29:00 31 Above high normal 6-20 (mg/dL) Final Creatinine 10/04/2023 06:29:00 1.4 Above high normal 0.5-1.0 (mg/dL) Final Glomerular filtration rate/1.73 sq M.predicted [Volume Rate/Area] in Serum, Plasma or Blood by Creatinine-based formula (CKD-EPI) 10/04/2023 06:29:00 36 Below low normal >=60 (mL/min) Final eGFR is calculated based on the CKD-EPI 2020 equation SODIUM 10/04/2023 06:29:00 135 135-146 (m mol/L) Final Potassium 10/04/2023 06:29:00 3.3 Below low normal 3.5 -5.1 (mmol/L) Final Cl 10/04/2023 06:29:00 97 Below low normal 98- 107 (mmol/L) Final CO2 10/04/2023 06:29:00 29 22-32 (mmo l/L) Final Anion gap 10/04/2023 06:29:00 9 7-15 (mmol /L) Final Glucose 10/04/2023 06:29:00 89 70-120 (mg /dL) Final Albumin 10/04/2023 06:29:00 3.3 Below low normal 3.8 -5.0 (g/dL) Final AST (Aspartate aminotransferase) 10/04/2023 06:29:00 34 10-35 (U/L) Fin al Alk Phos 10/04/2023 06:29:00 91 35-130 (U/ L) Final Bilirubin, Total 10/04/2023 06:29:00 1.6 Above high no rmal <=1.2 (mg/dL) Final Calcium 10/04/2023 06:29:00 9.0 8.4-10.2 ( mg/dL) Final Protein 10/04/2023 06:29:00 6.9 6.0-8.3 (g /dL) Final ALT (Alanine aminotransferase) 10/04/2023 06:29:00 20 10-35 (U/L) Deo mohan Performing Location LABORATORY [facility] - [facility] [phone]
--- OUTSIDE RECORDS SUMMARY | 2023-12-06 21:47 | External Medical Summary ---
Author Name Unknown Address Unknown Organization K1G:LABORATORY [facility] - [address] [place] [phone] Laboratory Report Ordering Provider Test Date Status SONIA SILVA 10/03/2023 18:24:12 Final ADMITTED patient Observation Date Value Abnormality Reference (Units ) Status Adenovirus DNA [Presence] in Nasopharynx by DEAN with non-probe detection 10/03/2023 18:24:12 Negative Negative Final Human coronavirus 229E RNA [Presence] in Nasopharynx by DEAN with non-probe detection 10/03/2023 18:24:12 Negative Negative Final Human coronavirus HKU1 RNA [Presence] in Nasopharynx by DEAN with non-probe detection 10/03/2023 18:24:12 Negative Negative Final Human coronavirus NL63 RNA [Presence] in Nasopharynx by DEAN with non-probe detection 10/03/2023 18:24:12 Negative Negative Final Human coronavirus OC43 RNA [Presence] in Nasopharynx by DEAN with non-probe detection 10/03/2023 18:24:12 Negative Negative Final SARS-CoV-2 (COVID-19) RNA [Presence] in Nasopharynx by DEAN with non-probe detection 10/03/2023 18:24:12 Negative Negative Final Human metapneumovirus RNA [Presence] in Nasopharynx by DEAN with non-probe detection 10/03/2023 18:24:12 Negative Negative Final Rhinovirus+Enterovirus RNA [Presence] in Nasopharynx by DEAN with non-probe detection 10/03/2023 18:24:12 Negative Negative Final Influenza virus A RNA [Presence] in Nasopharynx by DEAN with non-probe detection 10/03/2023 18:24:12 Negative Negative Final Influenza virus B RNA [Presence] in Nasopharynx by DEAN with non-probe detection 10/03/2023 18:24:12 Negative Negative Final Parainfluenza virus 1 RNA [Presence] in Nasopharynx by DEAN with non-probe detection 10/03/2023 18:24:12 Negative Negative Final Parainfluenza virus 2 RNA [Presence] in Nasopharynx by DEAN with non-probe detection 10/03/2023 18:24:12 Negative Negative Final Parainfluenza virus 3 RNA [Presence] in Nasopharynx by DEAN with non-probe detection 10/03/2023 18:24:12 Negative Negative Final Parainfluenza virus 4 RNA [Presence] in Nasopharynx by DEAN with non-probe detection 10/03/2023 18:24:12 Negative Negative Final Respiratory syncytial virus RNA [Presence] in Nasopharynx by DEAN with non-probe detection 10/03/2023 18:24:12 Negative Negative Final Bordetella pertussis.pertussis toxin promoter region [Presence] in Nasopharynx by DEAN with non-probe detection 10/03/2023 18:24:12 Negative Negative Final Chlamydophila pneumoniae DNA [Presence] in Nasopharynx by DEAN with non-probe detection 10/03/2023 18:24:12 Negative Negative Final Mycoplasma pneumoniae DNA [Presence] in Nasopharynx by DEAN with non-probe detection 10/03/2023 18:24:12 Negative Negative Final Bordetella parapertussis [id number] DNA [Presence] in Nasopharynx by DEAN with non-probe detection 10/03/2023 18:24:12 Negative Negative Final
The primers that detect Rhinovirus may cross react with some Enterorviruses. The validation of bronchial specimens, tracheal aspirates, and throats for this assay was developed and performance characteristics determined by [employer]. The validation of alternate specimen types has not been cleared or approved by the U.S. Food and Drug Administration (FDA). It has been determined that such clearance or approval is not necessary. Performing Location [address] [address]
--- OUTSIDE RECORDS SUMMARY | 2023-12-06 21:47 | External Medical Summary ---
Author Name Unknown Address Unknown Organization K1G:LABORATORY [facility] - [address] [place] [phone] Laboratory Report Ordering Provider Test Date Status SONIA SILVA 10/03/2023 18:02:09 Final Observation Date Value Abnormality Reference (Units ) Status Body temperature 10/03/2023 18:02:09 37.0 (C) Final pH of Venous blood 10/03/2023 18:02:09 7.463 Above high normal 7.320-7.430 (units) Final Carbon dioxide [Partial pressure] in Venous blood 10/03/2023 18:02:09 39.9 Below low normal 40.0-60.0 (mmHg) Final Oxygen [Partial pressure] in Venous blood 10/03/2023 18:02:09 41.6 25.0-50.0 (mmHg) Final Base excess, Capillary 10/03/2023 18:02:09 4.4 Above high normal -2.0-2.0 (mmol/L) Final Hemoglobin [Mass/volume] in Blood by Oximetry 10/03/2023 18:02:09 12.8 12.0-15.3 (g/dL) Final Oxyhemoglobin, Venous (FO2HB) 10/03/2023 18:02:09 72.3 40.0-85.0 (% total Hgb) Final Carboxyhemoglobin 10/03/2023 18:02:09 2.0 Above high normal <=1.5 (% total Hgb) Final Smokers: 0-9.0 % Methemoglobin 10/03/2023 18:02:09 0.4 <=1.5 (% total Hgb) Final Deoxyhemoglobin/Hemoglobin.t otal in Venous blood 10/03/2023 18:02:09 25.3 (% total Hgb) Ambar l Oxygen content in Venous blood 10/03/2023 18:02:09 13.0 7.0-18.0 (%vol) Final Bicarbonate, Venous, POC (i-STAT) 10/03/2023 18:02:09 28.5 23.0-31.0 (mmol/L) [facility] Performing Location LABORATORY [facility] - [address] [place] [phone]
--- OUTSIDE RECORDS SUMMARY | 2023-12-06 21:47 | External Medical Summary ---
Author Name Unknown Address Unknown Organization K01:[place]ATORY [facility] [place] [address] [place] [address] Laboratory Report Ordering Provider Test Date Status LARA BLAKE 10/03/2023 21:29:00 Final Observation Date Value Abnormality Reference (Units ) Status Osmolality 10/03/2023 21:29:00 295 278-305 ( mOsm/kg) Final Performing Location LABORATORY [facility] - [address] [place] [address]
--- OUTSIDE RECORDS SUMMARY | 2023-12-06 21:47 | External Medical Summary ---
Author Name Unknown Address Unknown Organization K1G:LABORATORY [address] [address] Laboratory Report Ordering Provider Test Date Status SONIA SILVA 10/03/2023 18:02:09 Final Exclude Heart Failure: <300 pg/mL
Diagnose Heart Failure:
Age <50 yr: >450 pg/mL
50-75 yr: >900 pg/mL
>75 yr: >1800 pg/mL
GFR is 30-59 mL/min: >1200 pg/mL or Age- adjusted values
GFR <30 mL/min: do not use, not reliable

Prognostic threshold: 1000 pg/mL Observation Date Value Abnormality Reference (Units ) Status BNP, Pro-hormone 10/03/2023 18:02:09 [address] Above high no rmal <300 (pg/mL) Final Performing Location LABORATORY [address] [address]
--- OUTSIDE RECORDS SUMMARY | 2023-12-06 21:47 | External Medical Summary ---
Author Name Unknown Address Unknown Organization K1G:LABORATORY [facility] [address] Laboratory Report Ordering Provider Test Date Status LARA BLKAE 10/03/2023 18:02:09 Final Observation Date Value Abnormality Reference (Units ) Status Phosphate 10/03/2023 18:02:09 4.3 2.5-4.8 (m g/dL) Final Performing Location LABORATORY [facility] - [address] [facility] [phone]
--- OUTSIDE RECORDS SUMMARY | 2023-12-06 21:47 | External Medical Summary ---
Author Name Unknown Address Unknown Organization K1G:LABORATORY [facility] - [address] [place] [phone] Laboratory Report Ordering Provider Test Date Status LARA BLAKE 10/04/2023 06:29:00 Final Observation Date Value Abnormality Reference (Units ) Status WBC, Total 10/04/2023 06:29:00 9.27 4.00-10.8 0 (K/uL) Final RBC 10/04/2023 06:29:00 3.80 3.85-5.15 (M/uL) Final Hemoglobin 10/04/2023 06:29:00 11.1 Below low normal 12 .0-15.3 (g/dL) Final HCT 10/04/2023 06:29:00 35.2 Below low normal 36. 0-45.2 (%) Final MCV 10/04/2023 06:29:00 92.6 81.5-97.5 (fL) Final MCH 10/04/2023 06:29:00 29.2 27.0-34.0 (pg) Final MCHC 10/04/2023 06:29:00 31.5 32.0-36.0 (g/dL) Final RDW 10/04/2023 06:29:00 17.1 11.5-15.5 (%) Final Platelets 10/04/2023 06:29:00 233 140-400 (K /uL) Final MPV 10/04/2023 06:29:00 9.2 6.6-11.1 ( fL) Final Performing Location LABORATORY [facility] - [address] [place] [phone]
--- OUTSIDE RECORDS SUMMARY | 2023-12-06 21:47 | External Medical Summary ---
Author Name Unknown Address Unknown Organization K01:LABORATORY [facility] [place] - [address] [place] [address] Laboratory Report Ordering Provider Test Date Status LOUSTEVEWILSON 10/03/2023 21:29:00 Final Less than 0.5 ng/mL: Low ris [...] [Mass/volume] in Serum or Plasma by Immunoassay 10/03/2023 21:29:00 0.10 Above high normal <0.10 (ng/mL) Final Performing Location LABORATORY [facility] [place] - [address] [place] [address]
--- OUTSIDE RECORDS SUMMARY | 2023-12-06 21:47 | External Medical Summary ---
Author Name Unknown Address Unknown Organization K1G:LABORATORY [facility] - [address] [place] [phone] Laboratory Report Ordering Provider Test Date Status SONIA SILVA 10/03/2023 18:02:09 Final Observation Date Value Abnormality Reference (Units ) Status Troponin T 10/03/2023 18:02:09 38 Above high normal < =14 (ng/L) Final Performing Location LABORATORY [facility] - [address] [place] [phone]
--- OUTSIDE RECORDS SUMMARY | 2023-12-06 21:47 | External Medical Summary ---
Author Name Unknown Address Unknown Organization K1G:LABORATORY [facility] - [address] [place] [phone] Laboratory Report Ordering Provider Test Date Status LARA BLAKE 10/03/2023 21:29:00 Final Observation Date Value Abnormality Reference (Units ) Status Troponin T 10/03/2023 21:29:00 39 Above high normal < =14 (ng/L) Final Performing Location LABORATORY [facility] - [address] [place] [phone]
--- OUTSIDE RECORDS SUMMARY | 2023-12-06 21:47 | External Medical Summary ---
Author Name Unknown Address Unknown Organization K1G:LABORATORY [facility] - [address] [place] [phone] Laboratory Report Ordering Provider Test Date Status SONIA SILVA 10/03/2023 18:02:09 Final Rheumatoid factor at a level above 50 [...] definitively correlate with clinical severity of disease. Observation Date Value Abnormality Reference (Units ) Status Fibrin D-dimer FEU [Mass/volume] in Platelet poor plasma by Immunoassay 10/03/2023 18:02:09 0.62 Above high normal <0.50 (ug/mL FEU) Final Performing Location LABORATORY [facility] - [address] [place] [phone]
--- OUTSIDE RECORDS SUMMARY | 2023-12-06 21:47 | External Medical Summary ---
Author Name Unknown Address Unknown Organization K1G:LABORATORY [facility] - [address] [place] [phone] Laboratory Report Ordering Provider Test Date Status LARA BLAKE 10/03/2023 21:29:00 Final Observation Date Value Abnormality Reference (Units ) Status Lactic Acid 10/03/2023 21:29:00 1.1 0.4-2.0 (mmol/L) Final Performing Location LABORATORY [facility] - [address] [facility] [phone]
--- OUTSIDE RECORDS SUMMARY | 2023-12-06 21:47 | External Medical Summary ---
Author Name Unknown Address Unknown Organization K1G:LABORATORY [facility] - [address] [place] [phone] Laboratory Report Ordering Provider Test Date Status LARA BLAKE 10/03/2023 21:29:00 Final Observation Date Value Abnormality Reference (Units ) Status CRP, low-sensitivity 10/03/2023 21:29:00 12 Above high normal <=5 (mg/L) Final Performing Location LABORATORY [facility] - [address] [facility] [phone]
--- OUTSIDE RECORDS SUMMARY | 2023-12-06 21:48 | External Medical Summary | Summary of Care ---
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 office door was closed. No one else was in the room with me.. Patient acknowledged consent and understanding of privacy and security of the Telemedicine visit and gave permission to have a telemedicine presenter stay in the room in order to assist with the history and to conduct the exam as needed. I informed the patient that I have reviewed their record in [facility] and presented the opportunity for them to ask any questions regarding the visit today. The patient agreed to participate. Patient Name: Maria Luisa Recinos Consult for Hyponatremia Background/HPI Ms. Recinos is a 87 year old lady with a history notable for HTN, HFpEF, HOCM, severe mitral stenosis/moderate , AAA, chronic hypoxic respiratory failure on supplemental O2 presented with shortness of breath and generalized weakness History was obtained from the patient, also reviewed charts, vitals, pertinent labs and imaging Patient was recently admitted twice heart failure exacerbation and also had covid pneumonia,discharged on 08/25/23. Since discharge from hospital, she has been feeling weak, worsening shortness of breath and productive cough. RVP positive for influenza A, Serum Na 129, K 4.3, Cr 1.0, BNP 20,800. ECGshowed new onset AF,CT chest with contrast showed multifocal airspace disease superimposed on chronic fibrotic changes, patient was given IV lasix > then switched to oral lasix, also getting levofloxacin for pneumonia Patient reported feeling better today, No gross hematuria or foamy urine.denied any urinary symptoms No fever, chills, chest pain, abdominal pain, nausea, vomiting, diarrhea, Urine output 850 cc last 24 hours, 300 cc so far today PAST MEDICAL HISTORY: Past Medical History: Diagnosis Date AAA (abdominal aortic aneurysm) (HCC) Acute combined systolic and diastolic CHF, NYHA class 1 (HCC) Aortic stenosis, mild CAD (coronary artery disease) Chronic respiratory failure (HCC) Graves disease Hypertrophic cardiomyopathy (HCC) Mixed hyperlipidemia Moderate mitral stenosis Nonrheumatic mitral valve stenosis Primary hypertension Pulmonary hypertension (HCC) Second hand smoke exposure Supplemental oxygen dependent PAST SURGICAL HISTORY: Past Surgical History: Procedure Laterality Date APPENDECTOMY W/OTHER PROCEDURE CORONARY ANGIOGRAPHY W/LEFT HEART CATH Right 10/04/2021 CORONARY ANGIOGRAPHY W/LEFT HEART CATH performed by Rodri Jacobs MD at [facility] [place];W/HYSTERECTOMY HI CHOLECYSTECTOMY ALLERGIES: Amoxicillin, Gatifloxacin, and Latex FAMILY HISTORY: Family History Problem Relation Age [...] Alcohol use: Not Currently Drug use: Never OBJECTIVE: BP 107/65 | Pulse 68 | Temp 36.8 C (98.2 F) | Resp 22 | Ht 1.549 m (5' 1") | Wt 90.9kg (200 lb 6.4 oz) | SpO2 95% | BMI 37.86 kg/m | BSA 1.98 m Physical exam through videocamera, chronically ill appearing, on NCO22L no distress face symmetrical chest expansion symmetrical, breathing unlabored Abdomen soft non tender Lower extremity trace pitting edema. Skin no obvious rashes Neurologically AAOx3,follows command Psychiatric -mood pleasant. LABS: Reviewed Lab results within last 7 days (see chart for full results) Units 08/31/23 0602 08/30/23 0610 08/29/23 1638 08/25/23 0531 Sodium mmol/L 126* 129* 129* 128* Potassium mmol/L 4.3 4.7 -- 4.0 Chloride mmol/L 90* 92* 94* 94* CO2 mmol/L 25 25 24 22 BUN mg/dL 21* 21* 22* 42* Creatinine mg/dL 1.0 0.9 0.8 1.0 Lab results within last 7 days (see chart for full results) Units 08/31/23 0602 08/30/23 0610 08/29/23 1638 HGB g/dL 13.4 13.0 13.5 HCT % 40.4 39.3 41.3 WBC K/uL 5.42 3.79* 4.00 PLT K/uL 114* 107* 117* Lab results within last 7 days (see chart for full results) Units 08/31/23 0602 08/30/23 0610 08/29/23 1638 Calcium mg/dL 8.9 8.9 9.2 Magnesium mg/dL 1.7 1.8 2.1 Phosphorus mg/dL 3.5 4.1 4.2 Albumin g/dL -- 2.4* 2.5* PERTINENT IMAGING: personally reviewed images Impression: Hyponatremia mild to moderate Chronic likely multipartials heart failure and low solute intake Serum Na 134 in 09/2021>> 124 in 08/23/23>> 129 on admission>> 126 today Acute on Chronic decompensated heart failure with preserved LV function Recent CARLOTA recovered Last Cr 1.0 Influenza A Pneumonia AF Thrombocytopenia Recommendations: Hyponatremia: continue fluid restriction<1200cc/day, consider switching lasix to Torsemide 20 mgBID, adjust dose as per volume status, if worsening further can add Lentz 15 gm BID and Salt tablet1 gm TID To check Urine electrolytes in random urine sample, urine Osmolality, serum osmolality, am cortisol, serum uric acid Can switch antibiotics with normal saline avoiding D5W for hyponatremia Avoid Nephrotoxic medications, adjust medications as per renal function To check BMP,monitor trend of Creatinine and electrolytes,If any concern to call Nephrology Follow up in renal clinic 2-3 weeks after discharge I appreciate the opportunity of participating in Ms. Recinos's care. RegardsJin MD Associate Division of Nephrology Clinical assessment is based on the telephonic/telemedicine visit and may be sub-optimal due to lack of appropriate physical examination. * Celena Mclean, OT - 08/30/2023 10:31 AM ESTAssociated Order(s): ADULT OCCUPATIONAL THERAPY CONSULT IP GENERAL EVALUATION - Occupational Therapy [address] [id number] Name: Maria Luisa Recinos [facility] [id number] Date: 08/30/2023 Time: 10:31 AM Maria Luisa Recinos is a 87 year old female. Patient Status: Inpatient Insurance: Payor: MEDICARE Plan: MEDICARE A AND B Product Type: *No Product type* Payor: [facility] Plan: SECURITY 65 MEDICARE SUPPLEMENT Product Type: *No Product type* Patient Seen: at bedside, nursing cleared patient for therapy Patient Identified By: Name, ID Band and Date Diagnosis: Decompensated heart failure, influenza A (08/30/23929) Status of treatment: Evaluation completed (08/30/23929) Orders: OT evaluation and treatment (08/30/23929) Weight Bearing Status: Weight bearing as tolerated;RUE;LUE;RLE;LLE (08/30/23929) Precautions: Alarms;Falls;Safety;Skin (08/30/23929) Total Treatment Time: 16 (08/30/23929) Past Medical History: Past Medical History: Diagnosis Date AAA (abdominal aortic aneurysm) (HCC) Acute combined systolic and diastolic CHF, NYHA class 1 (HCC) Aortic stenosis, mild CAD (coronary artery disease) Chronic respiratory failure (HCC) Graves disease Hypertrophic cardiomyopathy (HCC) Mixed hyperlipidemia Moderate mitral stenosis Nonrheumatic mitral valve stenosis Primary hypertension Pulmonary hypertension (HCC) Second hand smoke exposure Supplemental oxygen dependent Past Surgical History: Past Surgical History: Procedure Laterality Date APPENDECTOMY W/OTHER PROCEDURE CORONARY ANGIOGRAPHY W/LEFT HEART CATH Right 10/04/2021 CORONARY ANGIOGRAPHY W/LEFT HEART CATH performed by Rodri Jacobs MD at [facility] [place];W/HYSTERECTOMY HI CHOLECYSTECTOMY Social History/Disposition Lives with: Alone (08/30/23929) Assistance available: Yes (son and daughter can support) (08/30/23929) Dwelling type: Single story home (08/30/23929) Entry steps: 1 (08/30/23929) Inside steps: None (08/30/23929) Bedroom location: 1st floor (08/30/23929) Bath location: 1st floor full bath (08/30/23929) Prior Level of Function Reported by: Patient (08/30/23929) Ambulation: Ambulatory without device (after last discharge was using RW) (08/30/23929) Grooming: Independent (08/30/23929) Bathing: Independent (08/30/23929) Dressing: Independent (08/30/23929) Feeding: Independent (08/30/23929) Toileting: Independent (08/30/23929) Meal Prep: Independent (08/30/23929) Homemaking: Assistance (08/30/23929) Shopping: Assistance (08/30/23929) Medication Management: Assistance (08/30/23929) Money Management: Assistance (08/30/23929) Driving: No (08/30/23929) Durable Medical Equipment at home: Grab bars;Raised toilet seat;Rolling walker;Straight cane (08/30/23929) Subjective: Pt pleasant/cooperative Pain: No complaints of pain Observations Consciousness: Alert;Eyes open (08/30/23929) Psychosocial: Patient can communicate basic needs;Patient can converse in a social setting (08/30/23929) Sitting posture: Forward head;Rounded shoulders (08/30/23929) Standing posture: Forward head;Rounded shoulders (08/30/23929) Safety awareness: The Patient verbalizes insight of current deficits.;The Patient demonstrates carryover of insight during functional tasks.;The Patient can communicate basic needs.;Needs cueing supervision. (08/30/23929) Other Findings Endurance: Sitting tolerance;Good;Standing tolerance;Functional activity;Fair (08/30/23929) Light touch sensation: LUE;RUE;Intact (08/30/23929) Proprioception: LUE;RUE;Intact (08/30/23929) Coordination: LUE;RUE;Gross motor;Fine motor;Intact (08/30/23929) Tone: LUE;RUE;Normal tone (08/30/23929) Current Functional Status: Bilateral Upper Extremity Range of Motion: WFL (08/30/23929) Strength Assessment: WNL (08/30/23929) Self Care Toileting: Dependent (bladder hygiene) (08/30/23929) Functional Ambulation Assistive Device: Rolling walker (08/30/23929) Distance in feet:: 4 (08/30/23929) Level of Assistance: Contact Guard (08/30/23929) Bed Mobility Supine-Sit: Contact Guard (08/30/23929) Sit-Supine: Moderate Assistance (to lift BLE) (08/30/23929) OT Transfers Sit-Stand: Contact Guard (08/30/23929) Stand-Sit: Contact Guard (08/30/23929) Bed-Chair: Contact Guard (08/30/23929) Toilet: Contact Guard (BSC) (08/30/23929) Balance Sit (Static): Good (08/30/23929) Sit (Dynamic): Good (08/30/23929) Stand (Static): Fair (08/30/23929) Stand (Dynamic): Fair (08/30/23929) Alarm Status Patient positioned in: Bed (08/30/23929) With: Bed alarm intact and functioning and call leon in reach (08/30/23929) Patient and Family Goals: to get well and to return home Patient Education Education Topic: Role of OT;Plan of care goals;Energy conservation (08/30/23929) Review of Precautions: Safety;Energy conservation;Skin;Fall (08/30/23929) Method of Education: Verbalized to patient;Demonstrated to patient;Patient demonstrated task (08/30/23929) Education Provided to: Patient (08/30/23929) Response to Education: Receptive and agreeable to education;Needs further education (08/30/23929) Barriers to learning: Medical status (08/30/23929) Preferred learning method: Combination (08/30/23929) Treatment Provided: Evaluation Moderate Complexity 8 minutes - 66437: Patient was cooperative, pleasant, motivated, and alert during treatment session. Moderate complexity evaluation performed and 3-5 activity limitations were identified, including ADL deficit, functional mobility deficit, bed mobility deficit, decreased strength, decreased endurance, and impaired balance. Minimal or moderate modification of the functional task was necessary to complete the evaluation. Deficits Requiring O.T. Treatment: Deficits requiring O.T. treatment needs: ADL/self-care;Balance;Endurance;Functional mobility;Safety;Weakness (08/30/23929) Goals: Bathing: Upper: supervision. Lower: supervision Dressing: Upper: supervision. Lower: supervision. Bed Mobility with: Supine to Sit: supervision (with cues) Sit to supine: supervision (with cues). Transfers with: Stand Pivot supervision (with cues) Toilet: supervision (with cues). Demonstrates endurance at good during ADL. Demonstrates Grooming at supervision. Demonstrates toileting at supervision Goal Time Frame: 3-5 tx sessions Assessment: Patient was seen for skilled Occupational Therapy services and tolerated session well this date. Patient was alert, oriented and able to follow commands. Patient performed lower body ADLswith dependence during toileting task. Patient performed bed mobility with mod A sit to sup/CGA supto sit, transfers with CGA and ambulation 4 ft during SPT with CGA using RW. Pt required mod/max physical/verbal cues for safety with hand placement and RW management during transfers. Pt on 2L 02 with 02 sat at 92% or above with activity. Occupational Therapy AM-PAC score 14; consider home/post-acute care services upon discharge when medically able. Patient would continue to benefit from inpatient Occupational Therapy services to maximize functional independence and safety. Barriers to discharge from inpatient Occupational Therapy services include ADL/IADL performance, functional mobility, functional transfers, endurance, weakness, and safety. Would consider post-acute care services which m ay include nursing home, swing bed, or inpatient rehab. The level of care will be determined in collaboration with the patient, family/caregiver, and care team members. Treatment Plan: Energy Conservation, Safety, Bed mobility training, Functional Ambulation, Transfertraining, Balance activities, ADL training, and Endurance Anticipated Frequency (on eval): 3 to 5 times per week (08/30/23929) AM-PAC Help From Another Person Eating Meals: A little (08/30/23929) Help From Another Person Taking Care of Personal Grooming: A little (08/30/23929) Help From Another Person To Put On/Take Off Upper Body Clothing: A little (08/30/23929) Help From Another Person To Put On/Take Off Lower Body Clothing: A lot (08/30/23929) Help From Another Person Toileting: Total (08/30/23929) Help From Another Person Bathing: A lot (08/30/23929) OT AM-PAC Score: 14 (08/30/23929) OT AM-PAC t-Scale Score: 33.39 (08/30/23929) HLM (Highest Level of Mobility) Goal: Level 4 move to chair/commode (08/29/232031) [id number] (16 total, 8 billable due to co-treat) * Carmen Coleman, PT - 08/30/2023 9:30 AM ESTAssociated Order(s): ADULT PHYSICAL THERAPY CONSULT IP GENERAL EVALUATION - Physical Therapy [place] [id number] [facility] [id number] Name: Maria Luisa Recinos [facility] MH[facility] [id number] Date: 08/30/2023 Time: 12:13 PM Maria Luisa Recinos is a/an 87 year old female. Patient Status: Inpatient Insurance: Payor: MEDICARE Plan: MEDICARE A AND B Product Type: *No Product type* Payor: [employer] [facility] ([employer]) Plan: [employer] MEDICARE SUPPLEMENT Product Type: *No Product type* Patient Seen: at bedside, nursing cleared patient for therapy Patient Identified By: Name, ID Band and Date Diagnosis: Acute Decompensated heart failure (08/30/23929) Status of treatment: Evaluation completed (08/30/23929) Orders: PT evaluation and treatment (08/30/23929) Weight Bearing Status: Weight bearing as tolerated (08/30/23929) Precautions: Safety (08/30/23929) Total Treatment Time--free text: 16 (08/30/23929) Past Medical History: Past Medical History: Diagnosis Date AAA (abdominal aortic aneurysm) (HCC) Acute combined systolic and diastolic CHF, NYHA class 1 (HCC) Aortic stenosis, mild CAD (coronary artery disease) Chronic respiratory failure (HCC) Graves disease Hypertrophic cardiomyopathy (HCC) Mixed hyperlipidemia Moderate mitral stenosis Nonrheumatic mitral valve stenosis Primary hypertension Pulmonary hypertension (HCC) Second hand smoke exposure Supplemental oxygen dependent Past Surgical History: Past Surgical History: Procedure Laterality Date APPENDECTOMY W/OTHER PROCEDURE CORONARY ANGIOGRAPHY W/LEFT HEART CATH Right 10/04/2021 CORONARY ANGIOGRAPHY W/LEFT HEART CATH performed by Rodri Jacobs MD at [facility];W/HYSTERECTOMY HI CHOLECYSTECTOMY Subjective: Maria Luisa was pleasant and agreeable to participating. Social History/Disposition Lives with: Alone (08/30/23929) Assistance available: Yes (son and daughter can support) (08/30/23929) Dwelling type: Single story home (08/30/23929) Entry steps: 1 (08/30/23929) Inside steps: None (08/30/23929) Bedroom location: 1st floor (08/30/23929) Bath location: 1st floor full bath (08/30/23929) Prior Level of Function Reported by: Patient;Chart review (08/30/23929) Ambulation: Ambulatory without device (after last discharge was using RW) (08/30/23929) Devices at home: Rolling walker;Grab bars;Shower chair;Raised toilet seat;Straight cane (08/30/23929) Observations Consciousness: Alert (08/30/23929) Orientation: Oriented times 4 (08/30/23929) Psychosocial: Patient can communicate basic needs;Patient can converse in a social setting (08/30/23929) Sitting Posture: Rounded shoulders;Forward head (08/30/23929) Standing Posture: Rounded shoulders;Forward head (08/30/23929) Pain: No complaints of pain Range of Motion Range of Motion: WFL (08/30/23929) Strength Assessment Strength Assessment: WNL (08/30/23929) P.T. Bed Mobility Supine-Sit: Contact Guard (08/30/23929) Sit-Supine: Moderate Assistance (08/30/23929) Transfers Sit-Stand: Contact Guard (08/30/23929) Stand-Sit: Contact Guard (08/30/23929) Ambulation: Distance ambulated (feet): 4 feet Assistive Device: Rolling walker Assist: Contact Guard Balance Sit (Static): Good (08/30/23929) Sit (Dynamic): Good (08/30/23929) Stand (Static): Fair (08/30/23929) Stand (Dynamic): Fair (08/30/23929) Patient and or Family Goal(s): to get well and to return home Patient Education Review of Precautions: Safety;Fall (08/30/23929) Safety Awareness: Patient verbalizes insight of current deficits (08/30/23929) Preferred learning method: Combination (08/30/23929) Barriers to learning: Medical Status (08/30/23929) Method of Education: Verbalized to patient (08/30/23929) Topic of Education: Safety with mobility Method of Education: Verbal discussion and explanation provided to patient on transfer techniques to maximize independence: verbalized understanding and or agreement of this information Treatment Provided: Evaluation Low Complexity 16 minutes - 57347: Patient was cooperative and pleasant during treatment session. Low complexity evaluation performed with indication of no personal factors or comorbidities that impact plan of care. Patient presents with limitations in strength, bed mobility, transfers, gait, balance, endurance, and safety, which will impact plan of care. These limitations will be addressed by the goals set for this patient. Alarm Status Patient positioned in: Bed (08/30/23929) With: Bed alarm intact and functioning and call leon in reach (08/30/23929) Treatment Status: Treatment at bedside (08/30/23929) Goals: Demonstrate Bed Mobility with: Supine to Sit: modified independent (with device or slow) Sit to supine: modified independent (with device or slow) Demonstrate Transfers with: Sit to stand: modified independent (with device or slow) Stand to sit: modified independent (with device or slow) Demonstrate Ambulation: assistive device: rolling walker distance in feet: 100 level of assistance on level surface: modified independent (with device or slow) Demonstrate Stairclimbing: Number of steps: 4, no rails, and Level of Assistance: supervision Increase Balance: Good Time Frame: 3-5 visits Assessment: Maria Luisa is pleasant and motivated to participate. She was on 2 L/min O2 and maintained oxygen saturation 93-96% throughout session. She demonstrated bed mobility supine to sit with CGA and sit to supine with mod assist. Maria Luisa transitioned sit to stand with CGA and rolling walker. She pivoted to the bedside commode with CGA and RW. She ambulated 4 feet with rolling walker with CGA in order to move between surfaces. She demonstrates fair dynamic balance in stance. She was noted to fatigue quickly with activity and did not tolerate longer distances today. She will benefit from PT intervention while admitted to promote independence with bed mobility, transfers and ambulation. She willalso benefit from stair training in order to safely transition to home. Would consider post-acute care services which may include nursing home, swing bed, or inpatient rehab. The level of care will be determined in collaboration with the patient, family/caregiver, and care team members. Deficits requiring P.T. treatment needs: Safety;Mobility;Balance;Weakness (08/30/23929) Equipment Needs: Treatment Plan: Bed mobility training, Transfer training, Gait training, Strengthening exercises, and Balance activities Anticipated Frequency (on eval): 3 to 5 times per week (08/30/23 0930) AM PAC Score with Stairs: 16 09:30 - 09:46 documented in this encounter Nursing Notes * Charisse Bai NSG Instructor - 08/30/2023 10:55 AM EST Agree with Cricket Gamboa, JIMMY documentation. * Piper Freeman RN - 08/29/2023 9:01 PM EST Dual Licensed Skin Assessment completed by MARTHA Saldaña and MARTHA Abel . The patient is/has a N/A Skin Breakdown (includes non blanchable erythema): No documented in this encounter ED Notes * Arden River MD - 08/29/2023 4:00 PM EST HISTORY OF PRESENT ILLNESS Maria Luisa Recinos is a 87 year old female who presents to the ED for evaluation of Weakness, Generalized (Increase coughing, hoarse voice). The patient was seen at 08/29/23 1559. The patient is an 87-year-old female with a past medical history of CAD, hypertension, hypertrophic cardiomyopathy, Graves disease, combined systolic and diastolic heart failure due to valvular disease, ascending aortic aneurysm presenting to the ED with a chief complaint of increased cough, increased sputum production, hoarseness, and feeling short of breath after coughing spells ongoing over the past 4 days. The patient also endorsed progressing weakness and fatigue ongoing since she was discharged home from the hospital. The patient was last discharged from the hospital on 08/25/2023 after a 6 day admission for acute decompensated heart failure and pneumonia. The patient reported no shortness of breath at rest while on her baseline O2 of 2 lpm via nasal cannula. The patient reports she has been taking her home medications as prescribed. The patient deniedany chest pain, fevers, chills, nausea, vomiting, abdominal pain or dysuria. No recent falls. Weakness, Generalized Severity: Moderate Onset quality: Gradual Duration: 4 days Timing: Constant Progression: Worsening Associated symptoms: cough, lethargy and shortness of breath Associated symptoms: no abdominal pain, no aphasia, no arthralgias, no chest pain, no diarrhea, no dizziness, no drooling, no dysphagia, no dysuria, no numbness in extremities, no falls, no fever, noheadaches, no hematochezia, no loss of consciousness, no melena, no nausea, no near-syncope, no sensory-motor deficit, no syncope, no vision change and no vomiting Review of Systems Constitutional: Negative for fever. HENT: Negative for drooling. Respiratory: Positive for cough and shortness of breath. Cardiovascular: Negative for chest pain, syncope and near-syncope. Gastrointestinal: Negative for abdominal pain, diarrhea, dysphagia, hematochezia, melena, nausea and vomiting. Genitourinary: Negative for dysuria. Musculoskeletal: Negative for arthralgias and falls. Neurological: Negative for dizziness, loss of consciousness and headaches. The patient's allergies, past history, and medications were reviewed. PHYSICAL EXAM Initial Vitals (see all): BP 124/88 | Pulse 67 | Resp 22 | Temp 98.4 | O2 100 %, Nasal Cannula | Weight 93.5 kg | Height 154.9 cm | BMI 38.95 kg/m2 Initial Pain Assessment (see all): 0 (no pain)/10 ([facility] Adult Scale 0-10) Physical Exam Vitals and nursing note reviewed. Constitutional: General: She is not in acute distress. Appearance: Normal appearance. She is ill-appearing. She is not toxic-appearing or diaphoretic. Comments: Fatigued appearing HENT: Head: Normocephalic and atraumatic. Right Ear: External ear normal. Left Ear: External ear normal. Nose: Congestion present. Mouth/Throat: Mouth: Mucous membranes are moist. Eyes: General: Right eye: No discharge. Left eye: No discharge. Conjunctiva/sclera: Conjunctivae normal. Cardiovascular: Rate and Rhythm: Normal rate. Rhythm irregular. Pulses: Normal pulses. Heart sounds: No friction rub. Pulmonary: Effort: Pulmonary effort is normal. Breath sounds: Examination of the right-lower field reveals rhonchi. Examination of the left-lower field reveals rhonchi. Wheezing (End expiratory wheezing noted throughout lung villatoro.) and rhonchi present. Abdominal: General: Abdomen is flat. Palpations: Abdomen is soft. Musculoskeletal: General: Normal range of motion. Cervical back: Normal range of motion and neck supple. Right lower leg: No tenderness. 1+ Pitting Edema present. Left lower leg: No tenderness. 1+ Pitting Edema present. Comments: Bilateral lower extremity skin changes present with venous stasis dermatitis Skin: General: Skin is warm and dry. [...] signs were reviewed. ED Course as of 08/29/231941e Aug 29, 2023 1556 The patient was last discharged from the hospital on 08/19/2023 after a 6 day admission for acute decompensated heart failure and pneumonia. Patient completed 5-day course of Rocephin/Doxycycline for presumed CAP Dry weight 195 lbs at discharge Patient discharged to home in stable condition with routine PCP follow-up, close cardiology follow-up and home health referral. [employer] Torsemide and Diovan discontinued at discharge, in favor of starting PO Lasix 40mg daily due to patient having a better response to Lasix during admission, diuresed 9.2L total. Midodrine TID also started at discharge for blood pressure support. Patient to resume [employer] oxygen use at home. [BC] 1633 EKG revealed AFib with left anterior fascicular block, left axis deviation, otherwise normal intervals, no acute ischemic changes, when compared to prior EKG AFib has replaced normal sinus rhythm, no otherwise no acute changes. [BC] 1652 Blood Gas, Venous(!) Minor respiratory alkalosis noted. [BC] 1653 Lactate, Whole Blood with Reflex if Abnormal(!) Mildly elevated 2.1 [BC] 1707 XR Chest 1 View Bilateral ground-glass regions of opacification. Findings nonspecific and may reflect interstitial lung disease. An acute inflammatory process could not be entirely excluded. [BC] 1707 XR Chest 1 View I personally interpreted the imaging and also agree with the radiologists interpretation: Bilateral ground-glass regions of opacification. Findings nonspecific and may reflect interstitial lung disease. An acute inflammatory process could not be entirely excluded. [BC] 1736 BNP, NT-PRO(!) Doubled compared to labs 10 days ago [BC] 1740 Troponin T, High Sensitivity(!) Elevated at 31. [BC] 1740 Magnesium normal [BC] 1740 TSH normal [BC] 1741 Comprehensive Metabolic Panel(!) Mild elevation of BUN otherwise normal kidney function, mild hyponatremia consistent with prior labs, mild hypochloremia, mild elevation of alk-phos, otherwise no transaminitis, normal bilirubin. [BC] 1823 Influenza A Virus, Subtype H1 2009 by PCR(!): Positive + [BC] 1842 1. Multifocal airspace opacities concerning for pneumonia superimposed on chronic fibrotic andemphysematous changes. 2. Enlarged mediastinal lymph nodes which are reactive. 3. 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 No dissection. 4. Normal heart size with coronary atherosclerosis and calcification of the mitral valve annulus. 5. Trace bilateral pleural effusions. [BC] ED Course User Index [BC] Pietro John PA-C Differential Diagnoses Based on my history, physical exam, and evaluation, the differential includes, but is not limited, to the following diagnoses: acute coronary syndrome, anemia, bronchitis, CHF, dehydration, dysrhythmia, electrolyte disorder, hypothyroidism, pneumonia, respiratory failure, sepsis, URI and viral syndrome. 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 The patient was last discharged from the hospital on 08/25/2023 after a 6 day admission for acute decompensated heart failure and pneumonia. The patient reported no shortness of breath at rest while on her baseline O2 of 2 lpm via nasal cannula. Upon exam the patient was in no acute distress but was fatigued appearing. The patient's vital signs were stable on her baseline O2 of 2 liters/minute via nasal cannula. The patient had diffuse end expiratory wheezing and mild rhonchi noted. The patient also had bilateral lower extremity edema 1+. Labs and imaging were obtained to assess for acute cardiopulmonary infectious pathology. EKG revealed a possible new onset of AFib. Concern for decompensated heart failure in setting of new onset atrial fibrillation with the patient's BNP doubling over the past 10 days - 9805 to 27956. Respiratory panel was also positive for influenza A. Labs were otherwise reassuring and consistent with the patient's baseline. Please see ED course above for more details. I discussed the patient with the hospitalist Dr. Sarah regarding the patient's history of present illness and current findings. He was agreeable to admit the patient for new onset AFib with acute heart failure. The patient and family present were agreeable to the plan all questions were answered prior to admission. Prior to admission in the ED the patient received 1 DuoNeb breathing treatment, and 1 albuterol breathing treatment and 60 mg IV Lasix. Amount and/or Complexity of Data Reviewed Labs: ordered. Decision-making details documented in ED Course. Radiology: ordered. Decision-making details documented in ED Course. ECG/medicine tests: ordered. Risk Prescription drug management. Decision regarding hospitalization. Clinical Impressions Acute decompensated heart failure (HCC) New onset a-fib (HCC) Disposition Admitted. I discussed the management of this patient with the admitting provider and I made a decision to admit the patient. Admission Order Ordered Status . 08/29/23 1900 Admit for Inpatient Services (incl ZPO) ONCE Ordered [place] was the attending physician who supervised the care of this patient. Pietro oJhn PA-C ATTENDING ATTESTATION I was readily available and reviewed care of this patient. I was available for immediate [id number] consultation and assistance. I have reviewed the care of the patient with the provider listed above. * Jennifer Stoll RN - 08/29/2023 3:59 PM EST Patient is A&Ox3, VSS, arriving with family due to hoarse voice, Increase productive cough, SOB after coughing spells, at PCP office and they sent her to get IV antibiotics. Was recently in the hospital with Pneumonia. Family concerned CHF getting worse and starting on new lasix medications. Extra dose 40mg given today around lunch per PCP Dr. Rust. Family stated started retaining fluid, continues to be getting weaker, and has some congestion in chest. Family also noted a rash on b/l loer legs. documented in this encounter Miscellaneous Notes * Ancillary Progress Note - Imani Harris BSW - 09/01/2023 11:40 AM EST CARE MANAGEMENT - ADULT DISCHARGE NOTE [facility] [address] [facility] [id number] Name: Maria Luisa Recinos Location: [address] Date: 09/01/2023 Time: 11:41 AM The following coordination of care and discharge plan has been coordinated with the care team, patient, family and/or caregiver according to the patients needs and preferences. Discharge Discharge Second Notice Important Message from Medicare delivered: Yes (09/01/23 1136) Date Delivered: 08/31/23 (09/01/23 1136) Retain copy in EHR: Yes (09/01/23 1136) Was Caregiver/Family/Facility contacted regarding discharge: Yes (09/01/23 1136) Discharge Transportation: Family/Friends drive (09/01/23 1136) Date of scheduled discharge transportation: 09/01/23 (09/01/23 1136) Time of scheduled discharge transportation: 1400 (09/01/23 1136) Patient declined post-hospital transition of care recommendation: N/A (09/01/23 1136) Final Discharge Plan (Complete only at time of Discharge): SNF (09/01/23 1140) Destination - Admitted Since 08/29/2023 Service Provider Selected Services Address Phone Fax Patient Preferred Last Updated [facility] [address] [address] -- Imani Harris BSW 09/01/2023 1140 Per discussion with Hospitalist, pt is slated to DC to [facility] this date. Pt describes her home DME prior to admission as being a RW/Cane/SC and is expected to resume upon DC. Pt uses 2 Liter of 02 continuously which is serviced by [employer] It is anticipated shepeter resume the same at DC. Pt is active with [facility] ([facility]) for SN/PT/OT upon DC pending Tx Team recommended will resume the same. [facility] contacted same and spoke with Mckayla in order to inform of DC to SNF. Pt/pts family are aware of the DC plans and are in agreement with same. The Tx Team has identified no other needs for director underwriter sales to arrange. [facility] will continue to follow for any additional DC needs not yet identified. * Ancillary Progress Note - Imani Harris BSW - 09/01/2023 11:12 AM EST [facility] received a message from [place] at [facility] stating that they can accept pt for admission. Rice Farmer will update pts family/Tx Team of the above. * Ancillary Progress Note - Bre Jaramillo, PT - 09/01/2023 9:32 AM EST PROGRESS NOTE - Physical Therapy [facility]-[address] [address] Name: Maria Luisa Recinos Location: [facility] ACU-221/[id number] Date: 09/01/2023 Time: 9:32 AM Maria Luisa Recinos is a/an 87 year old female. Patient Status: Inpatient Insurance: Payor: MEDICARE Plan: MEDICARE A AND B Product Type: *No Product type* Payor: [facility] [place] Plan: SECURITY 65 MEDICARE SUPPLEMENT Product Type: *No Product type* Patient Seen: at bedside, nursing cleared patient for therapy Patient Identified By: Name, ID Band and Date Diagnosis: Acute Decompensated heart failure (09/01/23923) Status of treatment: Treatment completed (09/01/23923) Orders: PT evaluation and treatment (09/01/23923) Weight Bearing Status: Weight bearing as tolerated (09/01/23923) Precautions: Safety (09/01/23923) Total Treatment Time--free text: 14 (08/31/23957) Subjective: Pt resting in chair upon arrival. Pleasant and agreeable to therapy session Pain: No complaints of pain, reports just feeling a little stiff today P.T. Bed Mobility Supine-Sit: Not Tested (09/01/23923) Sit-Supine: Not Tested (09/01/23923) Transfers Sit-Stand: Contact Guard (09/01/23923) Stand-Sit: Contact Guard (09/01/23923) Ambulation: Distance ambulated (feet): 25'x1 then 75'x1 to restroom and then around room before seated rest needed Assistive Device: Rolling walker Assist: Contact Guard Balance Sit (Static): Good (09/01/23923) Sit (Dynamic): Good (09/01/23923) Stand (Static): Fair (09/01/23923) Stand (Dynamic): Fair (09/01/23923) Patient and or Family Goal(s): to get well and to return home Topic of Education: Safety with mobility, Goals/plan of care, Use of assistive device, and Fall prevention Method of Education: Verbal discussion and explanation provided to patient: verbalized understanding and or agreement of this information and demonstrated the exercise and or task Treatment Provided: Gait Training 20 minutes: gait training with rolling walker Alarm Status Patient positioned in: Chair (09/01/23923) With: Pressure pad alarm intact and functioning and call leon in reach (09/01/23923) Patient Education Review of Precautions: Safety;Fall (09/01/23923) Safety Awareness: Patient verbalizes insight of current deficits (09/01/23923) Preferred learning method: Combination (09/01/23923) Barriers to learning: None (09/01/23923) Method of Education: Verbalized to patient (09/01/23923) Assessment: Maria Luisa was seen bedside this am for skilled PT treatment. Pt was alert and oriented and agreeable to therapy. Reports feeling a little better today and knows she needs to keep moving to get her strength back. Transfers sit to stand from recliner chair and commode with grab bars CGA. Pt ambulates with rolling walker with CGA 25'x2 with slow pace and slightly shuffling gait. Pt remains on 2L oxygen at rest and with activity, sats 96% after ambulation and toileting. Will benefit from continued skilled PT services to improve overall endurance and functional mobility. Would consider post-acute care services which may include swing bed or pending medical and functional progress, home with home based PT services. The level of care will be determined in collaboration with the patient, family/caregiver, and care team members Deficits requiring P.T. treatment needs: Safety;Mobility;Balance;Weakness (09/01/23 09) Plan: Continue with current treatment plan established on evaluation. AM PAC Score with Stairs: 16 0924-0944am * Care Plan - Guy Mae RN - 09/01/2023 4:59 AM EST Clinical Goal(s): Pt's o2 will remain above 91% (08/31/23 2305) Possible barriers to meeting goal(s)/advancing plan of care: Influenza Stability of the patient: Moderately stable - low risk of patient condition declining or worsening Summary regarding today's goal(s): Met: O2 remained > 91% Recommendations: Continue Q 4 VS * Care Plan - Carol Bass LPN - 08/31/2023 5:56 PM EST Clinical Goal(s): Pt will maintain an spo2 of greater than 91% during this shift (08/31/23 1500) Possible barriers to meeting goal(s)/advancing plan of care: Dx of influenza and use of oxygen Stability of the patient: Moderately stable - low risk of patient condition declining or worsening Summary regarding today's goal(s): Met: Pt had spo2 of 96% and greater today with 2L of O2 NC Recommendations: Continue with current plan of care * Ancillary Progress Note - Gricel Martinez RN - 08/31/2023 1:30 PM EST Called [facility] without an answer. Left a message for [place] to call me back. She did call back and will review in [facility] and get back to . * Ancillary Progress Note - Rakesh Sage, OT - 08/31/2023 11:31 AM EST PROGRESS NOTE - Occupational Therapy [facility] [address] [facility] [address] Name: Maria Luisa Recinos Location: [place] [address] CCU Date: 08/31/2023 Time: 11:31 AM Maria Luisa Recinos is a 87 year old female. Patient Status: Inpatient Insurance: Payor: MEDICARE Plan: MEDICARE A AND B Product Type: *No Product type* Payor: [facility] [place] Plan: [employer] MEDICARE SUPPLEMENT Product Type: *No Product type* Patient Seen: at bedside, nursing cleared patient for therapy Patient Identified By: Name, ID Band and Date Diagnosis: Decompensated heart failure, influenza A (08/31/231099) Status of treatment: Treatment completed (08/31/231099) Orders: OT evaluation and treatment (08/31/231099) Weight Bearing Status: Weight bearing as tolerated;RUE;LUE;RLE;LLE (08/31/231099) Precautions: Alarms;Falls;Safety;Skin (08/31/231099) Total Treatment Time: 26 (08/31/231099) Subjective: patient states she walked a little with PT today Pain: No complaints of pain Observations Consciousness: Alert;Eyes open (08/30/23929) Psychosocial: Patient can communicate basic needs;Patient can converse in a social setting (08/30/23929) Sitting posture: Forward head;Rounded shoulders (08/30/23929) Standing posture: Forward head;Rounded shoulders (08/30/23929) Safety awareness: The Patient verbalizes insight of current deficits.;The Patient demonstrates carryover of insight during functional tasks.;The Patient can communicate basic needs.;Needs cueing supervision. (08/30/23929) Other Findings Endurance: Sitting tolerance;Good;Standing tolerance;Functional activity;Fair (08/30/23929) Light touch sensation: LUE;RUE;Intact (08/30/23929) Proprioception: LUE;RUE;Intact (08/30/23929) Coordination: LUE;RUE;Gross motor;Fine motor;Intact (08/30/23929) Tone: LUE;RUE;Normal tone (08/30/23929) Current Functional Status: Activities of Daily Living: Self Care Toileting: Dependent (bladder hygiene) (08/30/23929) Functional Ambulation Assistive Device: Rolling walker (08/30/23929) Distance in feet:: 4 (08/30/23929) Level of Assistance: Contact Guard (08/30/23929) Bed Mobility Supine-Sit: Contact Guard (08/30/23929) Sit-Supine: Moderate Assistance (to lift BLE) (08/30/23929) OT Transfers Sit-Stand: Contact Guard (08/30/23929) Stand-Sit: Contact Guard (08/30/23929) Bed-Chair: Contact Guard (08/30/23929) Toilet: Contact Guard (BSC) (08/30/23929) Balance Sit (Static): Good (08/30/23929) Sit (Dynamic): Good (08/30/23929) Stand (Static): Fair (08/30/23929) Stand (Dynamic): Fair (08/30/23929) Patient Education Education Topic: Role of OT;Plan of care goals;Energy conservation (08/30/23929) Review of Precautions: Safety;Energy conservation;Skin;Fall (08/30/23929) Method of Education: Verbalized to patient;Demonstrated to patient;Patient demonstrated task (08/30/23929) Education Provided to: Patient (08/30/23929) Response to Education: Receptive and agreeable to education;Needs further education (08/30/23929) Barriers to learning: Medical status (08/30/23929) Preferred learning method: Combination (08/30/23929) Alarm Status Patient positioned in: Chair (08/31/23 1100) With: Bed alarm intact and functioning and call leon in reach (08/31/231099) Treatment Provided: Therapeutic Activity: 26 minutes Upper Extremity exercise Demonstrate Exercises: LUE;RUE;Shoulder;Elbow;1 set of 10;Flexion;Extension;Abduction;Adduction;Internal/external rotation;Scapular protraction/retraction (08/31/231099) Peformed in: Seated (08/31/231099) Deficits requiring O.T. treatment needs: ADL/self- care;Balance;Endurance;Functional mobility;Safety;Weakness (08/31/231099) Assessment: patient did well with BUE exercises, completed for endurance. She did take extended rest breaks, but she was engaged in conversation to promote her breathing. She did have a few coughing episodes when she rested. Plan: Safety, Bed mobility training, Functional Ambulation, Transfer training, ADL training, and Endurance Anticipated Frequency (on eval): 3 to 5 times per week (08/31/231099) Equipment Equipment used in Therapy: Rolling walker;Bedside commode;Hospital bed (08/30/23929) AM-PAC Help From Another Person Eating Meals: None (08/31/231099) Help From Another Person Taking Care of Personal Grooming: None (08/31/231099) Help From Another Person To Put On/Take Off Upper Body Clothing: A little (08/31/231099) Help From Another Person To Put On/Take Off Lower Body Clothing: A lot (08/31/231099) Help From Another Person Toileting: Total (08/31/231099) Help From Another Person Bathing: A lot (08/31/231099) OT AM-PAC Score: 16 (08/31/231099) OT AM-PAC t-Scale Score: 35.96 (08/31/231099) JH HLM (Highest Level of Mobility) Goal: Level 5 standing (1 or more minutes) (08/31/23957) Treatment time 26 mins * Respiratory Progress Note - Krystle Cordova RRT - 08/31/2023 11:05 AM EST PDP RE-EVALUATION NOTE - Respiratory Care Services [facility] [address] [place] [id number] Name: Maria Luisa Recinos Location: [place] [address] CCU- Date: 08/31/2023 Time: 11:05 AM Patient Driven Protocol Summary: Re-evaluation . This Treatment Plan and medications will be reviewed by the Primary Care Team for any contraindications. Respiratory Care Treatment Plan Aerosol Therapy Treatment:: Hand Held Nebulizer Tx BID with Duoneb: Unit Dose. to reduce work of breathing and improve pulmonary gas exchange. Additional Aerosolized Treatments: Hand Held Nebulizer Tx PRN with Albuterol Sulfate: Unit dose 0.083%. to reduce work of breathing and improve pulmonary gas exchange. Additional Aerosolized Treatments: Inhaler(s) QDAY with Breo Ellipta (Fluticasone furoate 100 mcg and Vilanterol 25 mcg inhalation powder) / 1 inhalation. to suppress bronchial inflammation and edema by the use of systemic steroid sparing therapy. The patient will be re-evaluated: within 48 hours. The Triage Level is: (Assessment Score = 11-15) Level 3. Triage Level Definitions: Level 1 Severe Respiratory/Airway [...] 0 - No Surgical History Chest X-Ray: 4 - Bilateral Infiltrates and Atelectasis Assessment Score: 7 Patient Assessment Clinical Findings Respiratory Pattern: 0 [...] 35% Assessment Score: 4 Total Assessment Score: 11 Breath Sounds: Inspiratory and expiratory diminished bilaterally.. Cough and Sputum: A loose cough produced no sputum... Vital Signs: Resp: 19 (08/31/23 0800) Pulse: 82 (08/31/23799) Temp: 36.8 C (98.2 F) (08/31/23799) BP: 115/99 (08/31/23799) SpO2: 95 % (08/31/23799) Primary Service: Hospitalists. Admitting Diagnosis: Acute decompensated heart failure (HCC) [I50.9] Pulmonary Diagnosis: CHF, Pneumonia, Pulmonary HTN, and influenza a . * Ancillary Progress Note - Lisa Gifford, PT - 08/31/2023 9:58 AM EST PROGRESS NOTE - Physical Therapy [facility] [address] Name: Maria Luisa Recinos [address] Date: 08/31/2023 Time: 10:22 AM Maria Luisa Recinos is a/an 87 year old female. Patient Status: Inpatient Insurance: Payor: MEDICARE Plan: MEDICARE A AND B Product Type: *No Product type* Payor: [facility] ([employer]) Plan: [employer] MEDICARE SUPPLEMENT Product Type: *No Product type* Patient Seen: at bedside, nursing, cleared patient for therapy Patient Identified By: Name, ID Band and Date Diagnosis: Acute Decompensated heart failure (08/31/23957) Status of treatment: Treatment completed (08/31/23957) Orders: PT evaluation and treatment (08/31/23957) Weight Bearing Status: Weight bearing as tolerated (08/31/23957) Precautions: Safety (08/31/23957) Total Treatment Time--free text: 14 (08/31/23957) Subjective: Patient pleasant and cooperative, oriented x 4 Pain: No complaints of pain P.T. Bed Mobility Supine-Sit: Contact Guard (08/30/23929) Sit-Supine: Moderate Assistance (08/30/23929) Transfers Sit-Stand: Contact Guard (08/31/23957) Stand-Sit: Contact Guard (08/31/23957) Ambulation: Distance ambulated (feet): 20 feet x 2 with 2 turns Assistive Device: Standard walker Assist: Contact Guard , slow pacing, steady, assists with lines Balance Sit (Static): Good (08/31/23957) Sit (Dynamic): Good (08/31/23957) Stand (Static): Fair (08/31/23957) Stand (Dynamic): Fair (08/31/23957) Patient and or Family Goal(s): to get well and to return home Topic of Education: Breathing techniques, Safety with mobility, Goals/plan of care, Use of assistive device, and Fall prevention Method of Education: Verbal discussion and explanation provided to patient: verbalized understanding and or agreement of this information Treatment Provided: Gait Training 14 minutes: gait training with standard walker Alarm Status Patient positioned in: Bed (08/31/23957) With: Call leon in reach (08/31/23957) Patient Education Review of Precautions: Safety;Fall (08/31/23957) Safety Awareness: Patient verbalizes insight of current deficits (08/31/23957) Preferred learning method: Combination (08/31/23957) Barriers to learning: None (08/31/23957) Method of Education: Verbalized to patient (08/31/23957) Assessment: Patient seen bedside for treatment in CCU. Patient awake, cooperative and oriented sitting in recliner. Patient willing to participate in therapy, reporting she is feeling much better today. Patient required CGA to/from transfer from recliner with cues for hand placement when sitting. Bob marsh able to walk 20 feet x 2 with SW and CGA in room with management of lines by therapist, patient steady while walking. Patient reporting some SOB with walking and states she was recently placed on 2 liters O2 at home. Patient able to move more today and would benefit from continued therapy to improve endurance and overall mobility. Patients AMPA is 17 and would consider post-acute care services which may include nursing home, swing bed, or inpatient rehab. The level of care will be determined in collaboration with the patient, family/caregiver, and care team members Deficits requiring P.T. treatment needs: Safety;Mobility;Balance;Weakness (08/31/23957) Plan: Continue with current treatment plan established on evaluation. AM PAC Score with Stairs: 17 [phone] * Care Plan - Libby Duffy RN - 08/31/2023 6:57 AM EST Clinical Goal(s): Patient will maintain O2 sat > 90%. (08/30/23 2300) Possible barriers to meeting goal(s)/advancing plan of care: CHF Stability of the patient: Moderately stable - low risk of patient condition declining or worsening Summary regarding today's goal(s): Met: Patient's O2 sat has remained > 90% on oxygen @ 2 L/min. Recommendations: Continue to monitor resp status and O2 sat. Oxygen as ordered. * Pt Handout (on AVS) - Libby Duffy RN - 08/30/2023 8:36 PM EST [id number] Living with Atrial Fibrillation: Preventing Stroke Atrial fibrillation (AFib) is the most common abnormal heart rhythm. The heart has two upper chambers called atria and two lower chambers called ventricles. AFib causes the atria to quiver (fibrillate) instead of pumping normally. Blood can then pool in the heart instead of moving in and out as usual. This can cause blood clots to form in the heart. A clot can break free, travel to the brain, andcause a stroke. A stroke can quickly damage the brain. Taking medicine to prevent stroke Your healthcare provider may prescribe a medicine to help prevent blood clots if you have AFib. This type of medicine is called a blood thinner. Blood thinners include: Antiplatelet medicines such as aspirin or clopidrogrel Anticoagulant medicines such as warfarin, or medicines called direct-acting oral anticoagulants (DOACs). These include dabigatran, rivaroxaban, apixaban, and edoxaban. Risks of blood thinner medicine Blood thinners raise your risk of bleeding. If you take certain blood thinners, you may need to take extra steps to stay healthy. Depending on the blood thinner, you may need regular blood tests to check the levels of medicine in your blood. You?ll need to be careful not to injure yourself. And youmay need to watch your diet for foods that affect blood clotting. Tell your doctor if you are or plan to get . Many blood thinners can cause defects or bleeding that may harm your unborn child. If your blood is too thin, you may have symptoms of excess bleeding. Call your healthcare provider right away if you have any of these symptoms: Coughing or vomiting blood or other things that look like coffee grounds Nosebleed Unusual bruising or blood blisters Feel sick, weak, faint, or dizzy Blood in the urine or stool Black stools Bleeding more during your periods or between periods Bleeding gums Headache Stomachache Taking the right dose Take the medicine exactly as directed by your healthcare provider. Take it at the same time each day. If you miss a dose, call your provider right away to find out how much to take. Never take a double dose. If you take too much, it can cause too much bleeding. It can cause bleeding you can see on the outside of your body. It can also cause bleeding on the inside of your body that you may not be aware of. Getting your blood tested If you take DOACs, you don't need frequent blood tests. But you may need to have your kidneys checked regularly. Your healthcare provider will discuss this with you. If you take warfarin, you will need to have your blood tested on a regular schedule. This is to make sure you don?t have too much or too little of the medicine in your blood. Too much can cause extrableeding. Too little may not prevent blood clots from harming you. You may need to visit a hospital or clinic every week to have your blood tested. Or a nurse may come to your home and test your blood. In some cases, you may be able to test your blood at home yourself with a small machine. Talk with your healthcare provider to find out what?s best for you. After the blood test, your healthcare provider may tell you to change your dose of medicine. Watching your diet Warfarin levels can change with your diet. For example, many foods contain vitamin K. Vitamin K helps your blood clot. You don?t need to stop eating foods that have vitamin K. But you do need to keepthe amount of them you eat as steady as possible from day to day. Foods high in vitamin K are asparagus, avocado, broccoli, cabbage, kale, spinach, and some other leafy green vegetables. Soybean, canola, and olive oils are also high in vitamin K. Other foods and drinks can affect the way blood thinners work in your body. These include: Grapefruit and grapefruit juice Cranberries and cranberry juice Fish oil supplements Garlic, blanca, licorice, and turmeric Herbs used in herbal teas or supplements Alcohol If any of these items are part of your regular diet, continue using them as you normally would. Don?t make any big changes in your diet without first talking with your healthcare provider. You may also need to limit fats in your diet to 2 to 4 tablespoons a day. Preventing injury Because blood thinners make you bleed more, you?ll need to protect yourself from breaks in the skin. Follow these guidelines: Don't go barefoot. Always wear shoes. Don't trim corns or calluses yourself. Use an electric razor instead of a manual one. Use a soft-bristled toothbrush and waxed dental floss. You?ll also need to not do any activities that may cause injury. If you fall or are injured, you could be bleeding inside your body and not know it. Get emergency medical care right away if you fall,hit your head, or have any other kind of injury. Other safety tips While on your medicine: Tell all of your healthcare providers that you take a blood thinner for AFib. This includes all of your doctors, dental care providers, and your pharmacist. Ask your healthcare provider before taking any new medicines, vitamins, or other supplements. Any of these can cause problems when you take a blood thinner. Wear a medical alert bracelet or carry an ID card in your wallet if you will be taking blood thinners for months or longer. Keep all appointments for your blood tests. Procedures to prevent stroke Most blood clots that form in the heart occur in a pouch of the left atrium called the appendage. This pouch can often be large and have multiple lobes. Blood often pools and forms clots here. Left atrial appendage closure is a nonsurgical procedure in which a plug is placed at the opening of the left atrial appendage. This closes it off from the rest of the heart. Once the plug has sealed, no blood can enter or leave the pouch. This reduces blood clot formation and stroke risk. It often does not require you to use blood thinners for the long -term except for aspirin. Ask your healthcare provider if you qualify for this type of procedure. Other ways to help prevent stroke Your healthcare provider might give you other advice about how to lower your risk for stroke. Tips include: Lower your cholesterol with lifestyle changes or medicine Don't smoke Get physical activity Lose weight if needed Eat a heart-healthy diet Don't drink too much alcohol Call 911 Call 911 right away if you have symptoms of a stroke. Remember: If you have any of the symptoms below, or if someone you are with has these symptoms, call 911 as soon as possible[address] Never drive yourself or the victim. The ambulance can alert the hospital and start treatment. B.E. F.A.S.T. is an easy way to remember signs of a stroke. When you see these signs, you will knowthat you need to call 911 fast. B.E. F.A.S.T. stands for: B is for balance. Sudden loss of balance or coordination or trouble walking. E is for eyes. Vision changes in one or both eyes. F is for face drooping. One side of the face is drooping or numb. When the person smiles, the smile is uneven. A is for arm weakness. One arm is weak or numb. When the person lifts both arms at the same time, one arm may drift downward. S is for speech difficulty. You may notice slurred speech or difficulty speaking. The person can't repeat a simple sentence correctly when asked. T is for time to dial 911. If someone shows any of these symptoms, even if they go away, call 911 right away. Make note of the time the symptoms first appeared. Also call 911 right away if any of these occur: Sudden confusion Unusual or severe headache Chest pain Trouble breathing Uncontrolled bleeding When to call your healthcare provider Call your healthcare provider right away if you have any of these: Feel sick, weak, faint or dizzy Shortness of breath A change in the usual regularity of your heartbeat Fatigue Fever of 100.4F or 38C or higher, or as directed by your healthcare provider Symptoms of AFib that are new or getting worse Last Reviewed Date: 07/31/202119990309-0900 [employer]. All rights reserved. This information is not intended as a substitute for professional medical care. Always follow your healthcare professional's instructions. * Pt Handout (on AVS) - Libby Duffy RN - 08/30/2023 8:35 PM EST [id number] Discharge Instructions for Atrial Fibrillation You have been diagnosed with an abnormal heart rhythm called atrial fibrillation (AFib). This meansyour heart?s 2 upper chambers quiver rather than squeeze the blood out in a normal pattern. This leads to an irregular and sometimes rapid heartbeat. Some people will have symptoms such as a flip-flopping heartbeat, chest pain, lightheadedness, or shortness of breath. Other people may have no symptoms at all. AFib is serious because it affects the heart?s ability to fill with blood as it should. Blood clots may form. This increases the risk for stroke. Untreated, it can also lead to heart failure. AFib can be controlled. With treatment, most people lead normal lives. Treatment options Treatment for AFib depends on your age, symptoms, how long you have had it, and other factors. You will have a complete evaluation to find out if you have any abnormalities that caused your heart to go into AFib. This might be blocked heart arteries, heart valve problems, or a thyroid problem. Yourdoctor will assess your case and discuss choices with you. Treatment choices may include: Treating an underlying disorder that puts you at risk for atrial fibrillation. For example, correcting an abnormal thyroid or electrolyte problem, or treating a blocked heart artery. Restoring a normal heart rhythm with an electrical shock (cardioversion) or with an antiarrhythmic medicine (chemical cardioversion). Using medicine to control your heart rate and rhythm. Taking blood-thinning medicines (anticoagulants). These lower the risk for blood clot and stroke. Blood-thinners range from aspirin and clopidogrel to others such as rivaroxaban and warfarin. Having a procedure such as left atrial appendage closure. In this procedure, a small pouch in the top of your atrium is blocked off. This pouch is where blood clots often form. The procedure can prevent blood clots and reduce stroke risk without the need for a blood thinner. Doing catheter ablation or a surgical maze procedure. These procedures use different methods to create scar tissue in certain areas of heart. This stops the abnormal electrical signals that cause AFib. This may be an option when medicines don't work. It may be used instead of taking a medicine intermediate. Your provider may advise other treatment choices. Managing risk factors for stroke and preventing heart failure are important parts of any treatment plan for AFib. Home care Take your medicines exactly as directed. Don?t skip doses. Work with your healthcare provider to find the right medicines and doses for you. Learn to take your own pulse. Keep a record of your results. Ask your provider which pulse ratesmean that you need medical attention. Slowing your pulse is often the goal of treatment. Ask your provider if it?s OK for you to use an automatic machine to check your pulse at home. Sometimes these machines don?t count the pulse correctly with AFib. Limit how much coffee, tea, cola, and other drinks with caffeine you have. Ask your provider if you should cut out all caffeine. Don't take ciwf-zsd-yzzwyof medicines that have caffeine in them. Also don't take medicines withpseudoephedrine. Let your provider know what medicines you take. These include prescription and bgix-mkz-lmcjicw medicines, as well as any supplements. They interfere with some medicines given for AFib. Ask your provider if you can drink alcohol. Some people need to cut out alcohol to better treat AFib. If you are taking blood-thinner medicines, alcohol may interfere with them by increasing theireffect. Never take stimulants such as amphetamines or cocaine. These drugs can speed up your heart rate and trigger AFib. Manage your weight. If you are above your ideal body weight, losing excess pounds can reduce your incidence of AFib. Follow-up care Follow up with your healthcare provider as advised. When to call your healthcare provider Call your healthcare provider right away if you have any of the following: Weakness Dizziness Fainting Tiredness (fatigue) Shortness of breath Chest pain with increased activity A change in the usual regularity of your heartbeat, or an unusually fast heartbeat Last Reviewed Date: 07/31/202119992219-3845 [employer]. All rights reserved. This information is not intended as a substitute for professional medical care. Always follow your healthcare professional's instructions. * Pt Handout (on AVS) - Libby Duffy RN - 08/30/2023 8:35 PM EST Images from the original note were not included. [id number] Understanding Atrial Fibrillation (AFib) Atrial fibrillation (AFib) is the most common type of arrhythmia. An arrhythmia is any problem withthe speed or pattern of the heartbeat. AFib causes fast, chaotic electrical signals in the atria. This makes it hard for the heart to work as it should. It affects how much blood your heart can pump out to the body. AFib may occur once in a while and go away on its own. This is called paroxysmal. Or it may continue for longer periods. This is called persistent. AFib can lead to serious problems, such as stroke. Your healthcare provider will need to watch and manage your condition. What happens during atrial fibrillation? The heart has an electrical system. This sends signals to control the heartbeat. As the signals move through the heart, they tell the heart?s upper chambers (atria) and lower chambers (ventricles) when to squeeze (contract) and relax. This lets blood move through the heart and out to the body and lungs. With AFib, the atria get abnormal signals. This causes them to contract in a fast and irregular way. They are out of sync with the ventricles. The atria have a harder time moving blood into the ventricles. Blood may then pool in the atria. This increases the risk for blood clots and stroke. The ventricles may contract too quickly and irregularly. They may not pump blood to the body and lungs as well as they should. This can weaken the heart muscle over time. This can lead to heart failure. Heart failure means the heart muscle can?t pump blood well. What causes atrial fibrillation? AFib is more common in older adults. It has many possible causes: Older age Coronary artery disease Heart valve disease Heart attack Heart surgery High blood pressure Thyroid disease Diabetes Lung disease Sleep apnea Heavy alcohol use In some cases of AFib, healthcare providers don't know the cause. What are the symptoms of atrial fibrillation? AFib may not cause symptoms. If symptoms do occur, they may include: A fast, pounding, irregular heartbeat Shortness of breath Tiredness Dizziness or fainting Chest pain How is atrial fibrillation treated? Treatments for AFib can include any of the below. Medicines. You may be prescribed: o Heart rate medicines to help slow down the heartbeat o Heart rhythm medicines to help the heart beat more regularly o Blood thinners or anti-clotting medicines to help reduce the risk for blood clots and stroke Left atrial appendage closure. Your healthcare provider may advise this to prevent stroke. You may need it if you are at high risk for stroke but have problems taking blood-thinner (anticoagulant)medicines. This is a procedure done through a catheter in the groin. A device is placed in the partof the heart. This is where most clots form. This area is called the left atrial appendage (PARIS). It's a pouch-like structure in the muscle wall of the left atrium. The device closes off the PARIS. This prevents clots moving from the heart to the brain and causing a stroke. Electrical cardioversion. Your healthcare provider uses special pads or paddles to send 1 or more brief electrical shocks to the heart. This can help reset the heartbeat to normal. Ablation. Long, thin tubes (catheters) are threaded through a blood vessel to the heart. In the heart, the catheters send out hot or cold energy to the places that cause the abnormal signals. Thisdestroys the problem tissue or cells. This improves the chances that your heart will stay in normalrhythm without using medicines. If your heart rate and rhythm can?t be controlled, you may need an AV node ablation and a pacemaker. These will help control the heart rate and regularity of the heartbeat. Surgery. Your healthcare provider may use a method to create scar tissue in the parts of the heart causing the abnormal signals. The scar tissue disrupts the abnormal signals. This may stop AFib from occurring. Most often, the left atrial appendage is closed off as well. Hybrid surgical-catheter ablation for AFib. This is used for people with AFib that continues or is hard to treat. It combines surgery with a catheter ablation. First, the surgeon makes small cuts (incisions) between the ribs in the chest or in the abdomen near the sternum. The surgeon puts a scope through the incisions. This is done to get to the backside and other areas of the heart. Energy is sent to the surface of the atria. This disrupts the abnormal electrical signals. Then a catheter is put into a vein in the groin. The catheter is guided into the heart. Using the catheter, radiofrequency ablation is done. This destroys any other tissue inside the heart that is causing the AFib. It's also done to assess the success of the surgery. This hybrid treatment may work better to block the abnormal electrical signals. It may be a more permanent fix for persistent AFib. What are possible complications of atrial fibrillation? Complications can include: Blood clots Stroke Dementia Heart failure When should I call my healthcare provider? Call your healthcare provider right away if you have any of these: Symptoms that don?t get better with treatment, or get worse New symptoms Last Reviewed Date: 07/31/202119990024-8951 [employer]. All rights reserved. This information is not intended as a substitute for professional medical care. Always follow your healthcare professional's instructions. * Pt Handout (on AVS) - Libby Duffy RN - 08/30/2023 8:34 PM EST Images from the original note were not included. [id number] Atrial Fibrillation Atrial fibrillation is a condition in which the heart beats in an irregular pattern. It is the mostcommon abnormal heart rhythm. It is caused by a problem in the heart's electrical pathways within the muscle of the upper chambers of the heart (atria). It can be a sign of heart disease or other health problems that affect the heart. Heart palpitations are a common symptom of atrial fibrillation. This is the feeling that your heartis fluttering, or beating fast, hard, or irregular. When the heart beats too fast, it doesn't pump blood very well. This can cause other symptoms, such as anxiety, fatigue, shortness of breath, chestpain, dizziness, or fainting. Atrial fibrillation may come and go on its own, which is known as paroxysmal atrial fibrillation. It can last from a few hours to a couple of days. Or it may become persistent, lasting for weeks or months at a time. It can even become lifelong (permanent). Some symptoms of atrial fibrillation are hard to notice. For instance, some people develop subtle fatigue. Others notice a reduced ability to exercise. Some people have no symptoms. Atrial fibrillation is more common in older adults. It may be caused by heart disease or other conditions in the body that affect the heart. They include: Coronary artery disease (atherosclerosis), sometimes called blocked arteries High blood pressure Disease of the heart valves Enlarged heart Heart failure Atrial fibrillation can also occur without heart disease because of: Overactive thyroid (hyperthyroid) Chronic lung disease (COPD, emphysema, or bronchitis) Heavy alcohol use Heart stimulants, such as cocaine, amphetamines, diet pills, certain decongestant cold medicines, caffeine, or nicotine Infection Blood clot in the lung (pulmonary embolus) Diabetes Chronic kidney disease Obesity Obstructive sleep apnea Extreme and continued athletic conditioning Certain genetic diseases Treating or removing these causes will help your treatment for atrial fibrillation. It will also make it less likely for it to come back. Atrial fibrillation can alternate back and forth with another abnormal rhythm called atrial flutter. Atrial flutter is a more regular heart rhythm. It is also linked to an increased risk for stroke. Correct treatment of these arrhythmias can lower your risk for stroke. Home care Follow these guidelines when caring for yourself at home: Go back to your usual activities as soon as you are feeling back to normal. If you smoke, stop smoking. Contact your healthcare provider or a local stop- smoking program forhelp. Don't use stimulants like alcohol, cocaine, amphetamines, diet pills, certain decongestant cold medicines, caffeine, or nicotine. If your provider prescribed medicine to stop atrial fibrillation from coming back, take it exactly as directed. Some medicines must be taken every day, not just when you have symptoms. This will help them work as they should. If you were prescribed a blood-thinning medicine, take it exactly as prescribed. One of these medicines, called warfarin, needs your blood to be tested regularly as advised by your healthcare provider. This will make sure you are getting the dose that is right for you. It also lowers your risk for side effects. You may have been prescribed other blood-thinning medicines that don't need regulartesting. Follow-up care Follow up with your healthcare provider as advised. When to get medical care Call your healthcare provider if any of these occur: Swelling in the legs that gets worse Unexpected weight gain Pain, redness, or swelling in 1 leg Call 911 Calling 911 is the fastest and safest way to get the emergency department. The paramedics can also start treatment on the way to the hospital, if needed. Call 911 or get medical help right away if any of these occur: Weakness of an arm, leg, one side of the face Chest pain Shortness of breath, or feeling that you can't get enough air Feeling lightheaded, faint, or dizzy Your heartbeat is very fast, slow, or irregular compared with your regular heartbeat Uncontrolled bleeding Trouble with speech or vision Extreme drowsiness, confusion, dizziness, or fainting Last Reviewed Date: 04/30/202219990845-3177 [employer]. All rights reserved. This information is not intended as a substitute for professional medical care. Always follow your healthcare professional's instructions. * Pt Handout (on AVS) - Libby Duffy RN - 08/30/2023 8:32 PM EST [id number] Heart Failure and Physical Activity If you have heart failure, you may wonder if physical activity is good for you. You may worry that putting more strain on your heart could make your heart worse. But the heart is a muscle. And like other muscles, it gets stronger with use. Regular and moderate physical activity is helpful. This includes walking, swimming, dancing, or biking. This type of activity can: Improve heart failure symptoms Reduce stress and improve your mood Increase your energy levels Lower blood pressure Improve circulation Help you lose weight Improve quality of life These are all important factors in staying healthy. They are even more important when you have heart failure. Being physically active with this condition can be hard. You may have to take some safety measures.Talk with your healthcare provider before starting a physical activity program. You may not be usedto physical activity. And you may be nervous about it. Your provider can help you create a plan that fits your needs. Ask your provider if a cardiac rehab program is right for you. Last Reviewed Date: 01/28/202319994593-6431 [employer]. All rights reserved. This information is not intended as a substitute for professional medical care. Always follow your healthcare professional's instructions. * Pt Handout (on AVS) - Libby Duffy RN - 08/30/2023 8:31 PM EST DM91 Tracking Symptoms of Heart Failure If you have heart failure, being aware of even small changes in your body can help you manage your condition. Here are common symptoms of heart failure: Fluid retention. You may notice swelling in the lower half of your body, especially the legs, feet, and ankles. Sometimes your shoes may not fit. This can lead to sudden weight gain. Weight gain. Weigh yourself every morning after waking and peeing but before eating or drinking.Weigh yourself without clothing or with the same amount of clothing. Tell your healthcare provider if you suddenly gain 2 or more pounds in 1 day, or more than 5 pounds in 1 week. Or report whatever weight gain you were told by your healthcare provider. Belly (abdominal) swelling or stomach pain. You may notice your pants fit tight or that you haveto adjust the fit of your belt. Shortness of breath or coughing. Your heart can't pump as well as it should, so fluid can back up into your lungs. You may be breathless, which can cause you to wake up at night or cause shortnessof breath when lying flat on your back. You may also feel short of breath doing tasks that you had no problems with before. These might be checking the mail or walking up 1 flight of stairs. If you develop a cough, what you cough up may be foamy or frothy. Let your healthcare provider know if this happens. If you have severe shortness of breath, call 911. Trouble sleeping. Let your healthcare provider know right away if you find yourself needing to use more pillows or sleep in a chair rather than a bed to prevent trouble breathing. Tiredness (fatigue). Blood flow to the muscles may be reduced. This may make you feel tired during the day. Take time to rest and talk with your healthcare provider. Nausea or loss of appetite. Not enough blood in your digestive system or swelling of the organs from fluid retention can make you feel full more quickly than usual or even sick to your stomach. Tell your healthcare provider. Disorientation, memory loss, or confusion. Changes in the amount of sodium in your blood can cause confusion. If you or someone else notices this, call 911. Increased heart rate or fluttering heartbeats (palpitations). You may feel like your heart is racing or throbbing. To make up for the loss of pumping capacity, your heart beats faster. Tell your healthcare provider if you notice these. Monitoring symptoms Watching how your symptoms change helps you keep heart failure under control. Take action as soon as you notice a symptom getting worse or you have a new symptom. This helps prevent a problem from becoming serious. You may even be able to stay out of the hospital. Use a diary or a calendar to track your symptoms and weight. You can also review the diary with your healthcare provider, or if you need to call and discuss your status over the phone. Last Reviewed Date: 02/28/202319992665-3846 [employer]. All rights reserved. This information is not intended as a substitute for professional medical care. Always follow your healthcare professional's instructions. * Pt Handout (on AVS) - Libby Duffy RN - 08/30/2023 8:30 PM EST Images from the original note were not included. 35183 My Heart Failure Symptoms Chart Last Reviewed Date: 06/30/202119991534-5517 [employer]. All rights reserved. This information is not intended as a substitute for professional medical care. Always follow your healthcare professional's instructions. * Pt Handout (on AVS) - Libby Duffy RN - 08/30/2023 8:28 PM EST Images from the original note were not included. 76272 Taking Medicine to Control Heart Failure The heart is a muscle that pumps oxygen-rich blood to all parts of the body. When you have heart failure, the heart can't pump as well as it should. Blood and fluid may back up into the lungs (congestive heart failure). As a result, some parts of the body won?t get enough oxygen-rich blood to work normally. These problems lead to the symptoms of heart failure. Your healthcare provider may use the term "ejection fraction" as a way to describe the type of heart failure you have, or as a measure of how well your heart pumps. Ejection fraction is the percentage of blood that's pumped out of the left ventricle of the heart compared with how much blood the ventricle can hold. A normal value is between 50% to 70%. Medicines can help your heart work better. But follow your healthcare provider's directions exactlyto make sure they work as they should. Have all your prescriptions filled. Talk to a pharmacist if you have questions. Why take your medicines? They help you feel better. That means you can do more of the things you enjoy. They help your heart work better. They can help you stay out of the hospital. They can prevent shortness of breath and swelling in your feet. They can improve blood flow to the rest of your body and prevent other organs from being affected. The may even prevent heart attack or . Know your medicines You may take 1 or more of the medicines below. Your healthcare provider will work with you to find the best mix of medicines for you. Be sure you know which ones you take: FRANTZ inhibitors. These lower blood pressure by acting on the kidneys and ease strain on the heart. This makes it easier for the heart to pump. These medicines also help remodel the heart, which canhelp your heart pump better. Angiotensin receptor blockers (ARBs). These work like FRANTZ inhibitors. They're prescribed for some people who can't take FRANTZ inhibitors. Some people who take FRANTZ inhibitors get a persistent cough, or other bad reaction, and may need to switch medicines. Angiotensin receptor neprilysin inhibitor (ARNI). This medicine combines an ARB and a neprilysininhibitor. It helps relax blood vessels and reduce stress on the heart. It also helps your body getrid of salt and fluid. Sinus node I-f channel vikki. This is used to reduce heart rate, which puts less stress on theheart. Beta-blockers. These medicines help lower blood pressure and slow your heart rate. This eases the work on your heart. Beta-blockers may improve the heart?s pumping action and strength over time. If you have severe lung disease, you may not be able to take these medicines. Diuretics (water pills). These help the body get rid of extra water by getting rid of salt. Thishelps prevent swelling, especially in your ankles. They can also help you breathe better if you have fluid in your lungs. Having less fluid to pump means your heart doesn?t have to work as hard. A side effect of this medicine is having to pee more often. Some diuretics make your body lose a mineralcalled potassium. Your healthcare provider will tell you if you need to take supplements or eat more foods high in potassium. Other diuretics hold on to too much potassium. This can cause your heart to have arrhythmias. It's important to understand which medicine you're on and how it affects your po tassium levels. Digoxin. This helps your heart pump with more strength. This helps your heart pump more blood with each beat. So more oxygen-rich blood travels to the rest of the body. This may be used when othermedicines don't give enough symptom relief. Aldosterone blockers. These help change hormone levels to help your body get rid of salt and water through the kidneys and ease strain on the heart. Hydralazine and nitrates. These medicines are used together to treat heart failure. They may come in 1 combination pill. They lower blood pressure and decrease how hard the heart has to pump. Statins. These medicines lower the amount of bad cholesterol in your blood. This improves the health of your blood vessels. While they aren't used to treat heart failure, your provider may prescribe a statin if you have high cholesterol. Or if you've had a past heart attack and are at risk for heart failure. Sodium-glucose cotransporter-2 (SGLT2) inhibitors. These treat heart failure in people who have reduced ejection fraction. They ease the strain on the heart by blocking the kidneys from reabsorbing sugar from the blood. This helps your body get rid of extra salt and water. So it lowers your blood pressure. These medicines were originally made to help manage diabetes. If you have heart failure,your provider may prescribe an SGLT2 inhibitor if other medicines aren't working. Tips for taking your medicine Take your medicines exactly as directed. Follow the directions on the label. Take your medicines at the same time or times each day. If you miss a dose, take it as soon as you remember?unless it?s almost time for your next dose. If so, skip the missed dose. Don't take a double dose. Never change the dose or stop taking a medicine unless your healthcare provider tells you to. Tell your provider if you don't understand how to take your medicines. Also tell them if you're havingtrouble getting your medicines. If you miss too many doses, you're at risk for being admitted to the hospital for shortness of breath and worsening heart failure symptoms. Last Reviewed Date: 04/30/202119999959-7947 [employer]. All rights reserved. This information is not intended as a substitute for professional medical care. Always follow your healthcare professional's instructions. * Pt Handout (on AVS) - Libby Duffy RN - 08/30/2023 8:27 PM EST Images from the original note were not included. [id number] Furosemide Oral Tablet Brands: Lasix Uses This medicine is used for the following purposes: high blood pressure swelling Instructions This medicine may be taken with or without food. This medicine will work best if you take it at about the same time every day. Keep the medicine at room temperature. Avoid heat and direct light. This medicine will make you urinate more. If you have difficulty passing urine, please tell your doctor. Tell your doctor if you have severe or persistent sweating, diarrhea or vomiting. These can increase your risk of a serious side effect. This medicine can make you sensitive to the sun. Use sunscreen or protective clothing when in sun. It is important that you keep taking each dose of this medicine on time even if you are feeling well. If you forget to take a dose on time, take it as soon as you remember. If it is almost time for thenext dose, do not take the missed dose. Return to your normal schedule. Do not take 2 doses at one time. Tell your doctor and pharmacist about all your medicines. Include prescription and [id number], vitamins, and herbal medicines. Do not suddenly stop taking this medicine. Check with your doctor before stopping. This medicine may affect your blood sugar levels. If you have diabetes, talk to your doctor before changing the dose of your diabetes medicine. It is very important that you follow your doctor's instructions for all blood tests. Cautions Tell your doctor and pharmacist if you ever had an allergic reaction to a medicine. Some patients taking this medicine have experienced serious side effects. Please speak with your doctor to understand the risks and benefits associated with this medicine. Do not use the medication any more than instructed. This medicine may cause dizziness or fainting, especially after exercising or in hot weather. Be very careful when standing or sitting up quickly. Your ability to stay alert or to react quickly may be impaired by this medicine. Do not drive or operate machinery until you know how this medicine will affect you. Please check with your doctor before drinking alcohol while on this medicine. This medicine passes into breast milk. Ask your doctor before . During , this medicine should be used only when clearly needed. Talk to your doctor about the risks and benefits. Do not start or stop any other medicines without first speaking to your doctor or pharmacist. Do not share this medicine with anyone who has not been prescribed this medicine. Side Effects The following is a list of some common side effects from this medicine. Please speak with your doctor about what you should do if you experience these or other side effects. constipation dizziness dry mouth headaches lightheadedness stomach upset or abdominal pain increased urinary frequency blurring or changes of vision If you have any of the following side effects, you may be getting too much medicine. Please contactyour doctor to let them know about these side effects. confusion fainting numbness or tingling in hands and feet Call your doctor or get medical help right away if you notice any of these more serious side effects: ear problems (ringing in the ears, hearing loss) fast, irregular, or slow heartbeat signs of kidney damage (such as change in urine color or bubbly urine) signs of liver damage (such as yellowing of eye or skin, dark urine, or unusual tiredness) muscle cramps or weakness persistent or unusual thirst A few people may have an allergic reaction to this medicine. Symptoms can include difficulty breathing, skin rash, itching, swelling, or severe dizziness. If you notice any of these symptoms, seek medical help quickly. Extra Please speak with your doctor, nurse, or pharmacist if you have any questions about this medicine. [email or web address] IMPORTANT NOTE: This document tells you briefly how to take your medicine, but it does not tell youall there is to know about it. Your doctor or pharmacist may give you other documents about your medicine. Please talk to them if you have any questions. Always follow their advice. There is a more complete description of this medicine available in [place]ese. Scan this code on your smartphone or tablet or use the web address below. You can also ask your pharmacist for a printout. If you have any questions, please ask your pharmacist. The display and use of this drug information is subject to Terms of Use. Copyright(c) 2022 [employer]. 4048-3213 [employer]. All rights reserved. This information is not intended as a substitute for professional medical care. Always follow your healthcare professional's instructions. * Pt Handout (on AVS) - Libby Duffy RN - 08/30/2023 8:26 PM EST Images from the original note were not included. [id number] Left- or Right-Sided Heart Failure The heart is a large muscle that acts as a pump to circulate blood throughout the body. Blood carries oxygen to all of the organs including the brain, muscles, and skin. After your body takes the oxygen out of the blood, the blood returns to the heart. The right side of the heart collects the bloodfrom the body and pumps it to the lungs. In the lungs, it gets fresh oxygen and gives up carbon dioxide. The oxygen-rich blood from the lungs then returns to the left side of the heart, where it is pumped back out to the rest of your body, starting the process all over. Heart failure (HF) occurs when the heart muscle does not function normally. This causes your body to retain fluids or reduce blood flow. This can be caused by several health problems that weaken or stiffen the heart muscle. Heart failure can affect the right or the left side of the heart. It can often involve both sides of the heart over time. Right-sided heart failure When the right side of the heart is failing, it can?t handle the blood it is getting from the rest of the body. This blood returns to the heart through veins. When too much pressure builds up in the veins, fluid leaks out into the tissues. [place] then causes that fluid to move to those parts of the body that are the lowest. So one of the first symptoms of right-side HF can include swelling in the feet and ankles. If the condition gets worse, the swelling can even go up past the knees. Sometimes it gets so severe, the liver and intestines can get congested as well. Left-sided heart failure When the left side of the heart is failing, it can?t handle the blood it gets from the lungs. Pressure then builds up in the veins of the lungs. This causes fluid to leak into the lung tissues. This causes you to feel short of breath, weak, or dizzy. These symptoms are often worse with physical activity, such as when climbing stairs or walking up hills. Lying with your head flat is uncomfortable and can make your breathing worse. This may make sleeping difficult. You may need to use extra pillows to elevate your upper body to sleep well. The same is true when just resting during the daytime. You may also feel weak or tired and have less energy during exertion. Heart failure can have many causes of heart failure. They include: Coronary artery disease High blood pressure Previous heart attack Diabetes Obesity Alcohol abuse Smoking Illegal drug use, such as methamphetamine Family history Inflammatory conditions including infection Unknown cause (idiopathic) Heart failure is usually a long-term (chronic) condition. The purpose of medical treatment is to improve how well the heart pumps and to remove extra water from the body. A number of medicines can help with this, improve symptoms, and prevent the heart from becoming weaker. In certain cases, cardiac procedures or surgery can help to treat heart failure. Sometimes heart failure can become so severe that a device is placed in the heart to help it pump. Or a heart transplant is advised. Another major goal is to better treat the causes of heart failure, such as diabetes and high blood pressure. You may need to make changes in your lifestyle.. Home care Follow these guidelines when caring for yourself at home: Check your weight every day. This is very important because a sudden increase in weight gain could mean the heart failure is getting worse. Keep these things in mind: o Use the same scale every day. o Weigh yourself at the same time every day. Wear similar clothing or no clothes at all. o Make sure the scale is on a hard floor surface, not on a rug or carpet. o Keep a record of your weight every day so your healthcare provider can see it. If you are not given a log sheet for this, keep a separate journal for this purpose. Cut back on the amount of salt (sodium) you eat. Follow your healthcare provider's advice on howmuch salt or sodium you should have each day. o Limit high-salt foods. These include olives, pickles, smoked meats, salted potato chips, and mostprepared foods. o Don't add salt to your food at the table. Use only small amounts of salt when cooking. o Read the labels carefully on food packages to learn how much salt or sodium is in each serving inthe package. Remember that a can or package of food may contain more than 1 serving. So if you eat all the food in the package, you may be getting more salt than you think. Follow your healthcare provider's advice about how much fluid you should have. Be aware that some foods such as soup, pudding, and juicy fruits like oranges or melons contain liquid. You'll need to count the liquid in those foods as part of your daily fluid intake. Your provider can help you with this. Stop smoking. Stop using illegal drugs. Cut back on how much alcohol you drink. Lose weight if you are overweight. The extra weight puts a lot of stress on the heart. Stay active. Talk with your provider about an exercise program that is safe for your heart. Keep your feet elevated to reduce swelling. Ask your provider about support hose to prevent daytime leg swelling. Besides taking your medicine as instructed, an important part of treatment is lifestyle changes. These include diet, physical activity, stopping smoking, and weight control. Improve your diet by including more fresh foods, cutting back on how much sugar and saturated fat you eat, and eating fewer processed foods and less salt. Follow-up care Follow up with your healthcare provider, or as advised. Make sure to keep any appointments that were made for you. These can help better control your heartfailure. You will need to follow up with your provider on a routine basis to make sure your heart failure is well managed. If an X-ray, electrocardiogram (ECG), or other tests were done, you will be told of any new findings that may affect your care. Call 911 Call 911 if you: Become severely short of breath Feel lightheaded, or feel like you might pass out or faint Have chest pain or discomfort that is different than usual, the medicines your doctor told you to use for this don't help, or the pain lasts longer than 10 to 15 minutes You suddenly develop a rapid heart rate When to seek medical advice The following may be signs that your heart failure is getting worse. Call your healthcare provider right away if any of these happen: Sudden weight gain. This means 3 or more pounds in one day, or 5 or more pounds in 1 week. Trouble breathing not related to being active New or increased swelling of your legs or ankles Swelling or pain in your abdomen Breathing trouble at night. This means waking up short of breath or needing more pillows to breathe. Frequent coughing that doesn?t go away Feeling much more tired than usual Last Reviewed Date: 05/31/202119999539-9272 [employer]. All rights reserved. This information is not intended as a substitute for professional medical care. Always follow your healthcare professional's instructions. * Pt Handout (on AVS) - Libby Duffy RN - 08/30/2023 8:26 PM EST 42171 Discharge Instructions for Heart Failure The heart is a muscle that pumps oxygen-rich blood to all parts of the body. When you have heart failure, the heart is not able to pump as well as it should. Blood and fluid may back up into the lungs. Some parts of the body don?t get enough oxygen-rich blood to work normally. These problems lead to the symptoms of heart failure. Heart failure can occur because of an injury to the heart or from natural processes. You can control symptoms of heart failure with some lifestyle changes and by following your doctor's advice. Activity Ask your healthcare provider about an exercise program. Simple activities such as walking or gardening can help. Exercising most days of the week can make you feel better. Don't be discouraged if your progress is slow at first. Rest as needed. Stop activity if you get symptoms such as chest pain, lightheadedness, or shortness of breath. Find activities that you enjoy. Examples might be brisk walking, dancing, swimming, and gardening. These will help you stay active and strengthen your heart. Ask your healthcare provider about cardiac rehab. This is a program that helps you to exercise safely. Diet Follow a heart healthy diet. And make sure to limit the salt (sodium) in your diet. Salt causes your body to hold water. This makes your heart work harder because there is more fluid for the heart topump. Limit your salt as directed by your healthcare provider by doing the following: Limit canned, dried, packaged, and fast foods. Don't add salt to your food. Season foods with herbs instead of salt. Watch how much liquids you drink. Drinking too much can make heart failure worse. Talk with yourhealthcare provider about how much you should drink each day. Limit the amount of alcohol you drink. It may harm your heart. Women should have no more than 1 drink a day. Men should have no more than 2 a day. Ask that your meals have no added salt when you eat out. Talk with your healthcare provider before using salt substitutes. They often have potassium in them. This may not be good for your health. This will depend on how well your kidneys are working andwhat medicines you?re taking. Some people need extra potassium. Others don?t. Tobacco It's important to quit if you smoke. Smoking increases your chances of having a heart attack by harming the blood vessels that provide oxygen to your heart. This makes heart failure worse. Quitting smoking is the number one thing you can do to improve your health. Enroll in a stop-smoking program to improve your chances of success. Talk with your healthcare provider about medicines or nicotine replacement therapy. Also ask your healthcare provider about smoking cessation support groups. Medicine Take your medicines exactly as prescribed. Learn the names and purpose of each of your medicines. Keep an accurate medicine list and current dosages with you at all times. Don't skip doses. If you miss a dose of your medicine, take it as soon as you remember. If you miss a dose and it's almost timefor your next dose, just wait and take your next dose at the normal time. Don't take a double dose. If you are unsure, call your doctor's office. Make sure not to mix up your medicines or forget whatyou've taken the same day. Refill your prescriptions before you run out of medicine. Talk with yourhealthcare provider if you have trouble with the cost of your medicines. Weight monitoring Weigh yourself every day. A sudden weight gain can mean your heart failure is getting worse. Weigh yourself at the same time of day and in the same kind of clothes. Ideally, weigh yourself first thing in the morning after you empty your bladder, but before you eat breakfast. Your healthcare provider will show you how to track your weight. They will also tell you when you should call if you have asudden, unexpected increase in your weight. In general, your healthcare provider may ask you to report if your weight goes up by more than 2 pounds in 1 day, 5 pounds in 1 week, or whatever weight gain you were told by your doctor. This is a sign that you are retaining more fluid than you should be. Clues to weight gain include checking yourankles for swelling, or noticing you are short of breath when you lie down. Follow-up care Have a follow-up appointment as instructed. Depending on the type and severity of heart failure youhave, you may need follow-within 7 days from hospital discharge. Keep appointments for checkups andlab tests that are needed to check your medicines and condition. Recognize that your health and even survival depend on you following your provider's advice. Symptoms Heart failure can cause a variety of symptoms. They include: Shortness of breath Trouble breathing at night, especially when you lie down Swelling in the legs and feet or in the belly (abdomen) Becoming easily tired Irregular or rapid heartbeat Weakness or lightheadedness Swelling of the neck veins It's important to know what to do if symptoms get worse or if you develop signs of worsening heart failure. Keep track of how you feel each day. Report any changes to your healthcare provider. When to call your healthcare provider Call your healthcare provider right away if you have any of these signs of worsening heart failure: Sudden weight gain. This means more than 2 pounds in 1 day or 5 pounds in 1 week, or whatever weight gain you were told to report by your doctor. Trouble breathing not related to being active New or increased swelling of your legs or ankles Swelling or pain in your abdomen Breathing trouble at night. This means waking up short of breath or needing more pillows to breathe. Frequent coughing that doesn't go away Feeling much more tired than usual Call 911 Call 911 right away if you have: Severe shortness of breath, such that you can't catch your breath even while resting Severe chest pain that does not resolve with rest or nitroglycerin [place], foamy mucus with cough and shortness of breath An ongoing rapid or irregular heartbeat Passing out or fainting Stroke symptoms such as sudden numbness or weakness on one side of your face, arm, or leg or sudden confusion, trouble speaking or vision changes Last Reviewed Date: 07/31/202119996689-7657 [employer]. All rights reserved. This information is not intended as a substitute for professional medical care. Always follow your healthcare professional's instructions. * Pt Handout (on AVS) - Libby Duffy RN - 08/30/2023 8:25 PM EST Images from the original note were not included. 24241 Heart Failure and Depression Heart failure is an ongoing (chronic) health problem. Heart failure doesn?t mean your heart stops working. It means your heart doesn?t pump as well as it should. This leads to problems in many parts of the body. Some people have more than 1 health problem at a time. You may also have depression if you have been diagnosed with heart failure. You may have depression if you feel down most days or are having problems with appetite or sleep. Depression is as real and serious an illness as heart failure. It makes you feel sad and helpless. Itgets in the way of your life and relationships. It interferes with your ability to think and act. Treatment can help improve these symptoms. Your overall health may also improve when depression is under control. How does heart failure raise your risk for depression? A person with heart failure is at a higher risk for depression. And a person with depression is at a higher risk for heart failure. Each can increase the risk of developing the other. The link between them is not completely understood. Coping with heart failure can take a lot of effort. This can affect how you feel. Some medicines can also change your mood. Many of the behaviors that often come with depression, such as smoking and alcohol abuse, are risk factors for all heart diseases. For people with heart failure, depression can also increase the risk for a heart attack or blood clots. Symptoms Many of the symptoms of heart failure may seem like symptoms of depression. It can be hard to tell which condition is causing them. It?s normal to feel sad or irritable after being diagnosed with heart failure. But if these feelings last for more than 2 weeks, depression may be the cause. Signs of depression can include: Lack of interest in activities Depressed mood or irritability Changes in sleep patterns Changes in appetite Feelings of guilt or despair Lack of energy Trouble concentrating Suicidal thoughts Diagnosing depression There's no physical test for depression. But if you have depression symptoms most of the day, everyday, for more than 2 weeks, contact your healthcare provider. This is especially important if: You have symptoms of depression that aren't getting any better You have thoughts of self-harm or suicide Your work, relationships with friends and family, or interests are affected by your mood Treatment for heart failure and depression Depression is an ongoing (chronic) health problem. But treating depression can help you feel better, Treatment can also improve your quality of life. Many treatment choices can ease your symptoms. They can help you stay motivated to improve your heart health. Symptoms of depression may disappear asheart failure gets under control. Your healthcare provider will work with you to make a treatment plan that may include: Medicines to help treat the symptoms of depression Talk therapy (psychotherapy) CBT (cognitive behavioral therapy) Peer support Regular exercise Cardiac rehab (rehabilitation) program Last Reviewed Date: 09/28/202119996430-3949 [employer]. All rights reserved. This information is not intended as a substitute for professional medical care. Always follow your healthcare professional's instructions. * Pt Handout (on AVS) - Libby Duffy RN - 08/30/2023 8:25 PM EST DM18 Heart Failure: Breathe More Easily One of the early symptoms of heart failure is shortness of breath. When your heart can't work well enough to pump the blood out of your heart, blood backs up in the blood vessels leading to the lungs. Fluid then leaks from your blood vessels into the air sacs in your lungs. This makes it hard for oxygen to enter the blood. This causes shortness of breath. You may be out of breath when you exert yourself. This includes carrying groceries or going up stairs. You may also feel this way when you are at rest . And even at night when sleeping or lying down. Doing these things can help you breathe more easily: Eat a healthy diet and don't use salt (sodium). Many prepared and fast foods already have high amounts of salt added. So it's important to read food labels. Water and salt tend to travel together.So reducing salt will reduce the amount of fluid your body retains. Talk with your healthcare provider about the best ways to limit salt. You may have to reduce the number of meals you eat out. When you do eat out, ask for your food to be made without added salt. Nubw-rqz-hqmgeot medicines often have added salt. So read the labels on these medicines. Pay attention to what your body is telling you. If you become tired during an activity, stop andrest. You can always finish a task later. If you feel unusual chest pain, or your typical chest pain that doesn't resolve like it normally does, stop what you are doing and call 911. Weigh yourself. Do this every day. Or as often as your provider tells you to. Weigh yourself at the same time each day. The best time is when you wake up, right after urinating, and before breakfast. Sudden weight gain may mean that your heart is having trouble. Call your provider if you gain more than 2 pounds in a day or 5 pounds in a week. Or whatever amount your provider has asked you to report. Sleep with a few pillows propped behind your head and shoulders. This can make it easier to breathe at night. You may notice that you need to use many pillows to help you breathe easily. Or more pillows than normal. If so, call your healthcare provider right away. Take your heart failure medicines as prescribed. They will help ease stress on your heart. And keep your lungs from becoming congested with retained fluid. Pay attention to your feet. Be aware if your ankles start swelling. Or you can't put your shoes on. Call your provider right away. Find a safe activity level. Talk with your healthcare provider about what activity level is safefor you. Your provider can help you figure out what you can and can't do. Work with your provider to create an exercise program. Then exercise every day. This will strengthen your heart and lungs. And it will help reduce the amount of fluid that seeps into your lungs. Cardiac rehab may be a good form of watched activity for you. Shortness of breath can be a serious problem. Call 911 if you notice severe shortness of breath. Orif you feel breathless while at rest when you never have before. Last Reviewed Date: 01/28/202319994655-4509 [employer]. All rights reserved. This information is not intended as a substitute for professional medical care. Always follow your healthcare professional's instructions. * Pt Handout (on AVS) - Libby Duffy RN - 08/30/2023 8:25 PM EST Images from the original note were not included. 25413 Heart Failure: Tracking Your Weight You have a condition called heart failure. When you have heart failure, a sudden weight gain or a steady rise in weight is a warning sign. It means that your body is retaining too much water and salt. This could mean your heart failure is getting worse. If left untreated, it can cause problems for your lungs and result in shortness of breath. Weighing yourself each day is the best way to know if you?re retaining water. If your weight goes up quickly, call your healthcare provider. You'll be given instructions on how to get rid of the excess water. You'll likely need medicines and have to avoid salt. This will help your heart work better. When to call your healthcare provider Call your healthcare provider if you gain: More than 2 pounds in 1 day More than 5 pounds in 1 week Or whatever weight gain you were told to report by your provider This is often a sign of worsening heart failure and needs to be evaluated and treated. Your provider will tell you what to do next. Tips for weighing yourself Weigh yourself at the same time each morning, wearing the same clothes. Ideally, weigh yourself after urinating and before eating. Use the same scale each day. Make sure the numbers are easy to read. Put the scale on a flat, hard surface. Don't put it on a rug or carpet. Don't stop weighing yourself. If you forget 1 day, weigh yourself again the next morning. How to use your weight chart Keep your weight chart near the scale. Write your weight on the chart as soon as you get off thescale. Fill in the month and the start date on the chart. Then write down your weight each day. Your chart will look like this: If you miss a day, leave the space blank. Weigh yourself the next day and write your weight in the next space. Take your weight chart with you when you go to see your provider. Last Reviewed Date: 04/30/202119990255-6978 [employer]. All rights reserved. This information is not intended as a substitute for professional medical care. Always follow your healthcare professional's instructions. * Pt Handout (on AVS) - Libby Duffy RN - 08/30/2023 8:24 PM EST Images from the original note were not included. 07599 Heart Failure: Dealing with Sleep Problems If you have heart failure and you?re not sleeping well, there are many possible reasons. Many people with heart failure also have sleep apnea. This is a condition that causes snoring and brief periods of not breathing. Age, certain medicines, and not getting enough exercise can also affect sleep. Be sure to tell your healthcare provider if you?re having sleep problems. Tips for sleeping better If shortness of breath keeps you awake, your healthcare team needs to know. Tell them if you can?t lie flat or need to sleep propped up on pillows. Or tell them if you can only sleep sitting up in a chair or recliner. If nighttime shortness of breath gets worse, tell your healthcare provider. You may have a buildup of fluid and need more diuretic medicine. If you have other sleep problems not rela kimmy to shortness of breath, these tips may help: Do deep breathing in bed. This will relax you and help you fall asleep. Don?t drink caffeine any later than noon. Try to go to sleep and wake up around the same time every day. This helps your body set a sleep cycle. Don't nap. This can affect your sleep cycle. Pull window shades down. If the room isn?t dark enough, get blackout shades. Keep pets out of the bedroom if they bother you at night. Wear comfortable, loose pajamas. Pajamas that fit tightly may make you feel like it's harder to breathe. If you take medicines at bedtime, talk with your healthcare provider about changing this. Certain medicines may be keeping you awake. Or they may cause you to wake up often to use the bathroom. Beta-blockers and diuretics are common medicines taken for heart failure that can affect your sleep. Talk with your healthcare provider about taking kvkd-tnz-bihtcth sleep aids. Some OTC medicines can interact with your prescribed medicines. Or they may have salts in them that cause you to retainfluids. Do you have sleep apnea? You may not know you have sleep apnea unless someone notices that you have irregular breathing, gasping, or snoring while you sleep. You should get checked for this condition. If you have it, treatment can improve your health. Treatment can also ease the stress on your heart and body. Your healthcare provider may prescribe a CPAP?(continuous positive airway pressure) or BiPap?(bilevel positive airway pressure) device. The machine sends a gentle flow of air through a nasal mask while you sleep. This air goes through your nose and into your lungs, keeping airways open. An airflow device may be needed if you have sleep apnea. Tips for using CPAP and BiPap If your mask doesn?t fit or feel right, talk with your healthcare provider or the vendor about adjusting it or trying a new one. There are many different styles and types that may fit your face better than others. If you have allergies or other problems that block your nose, get those treated. These devices work best if your nose is clear. If the device doesn?t feel good or work well at first, don?t stop using it. Ask your provider ivan from your medical equipment company for ways to help make it work for you. Newer devices are small, lightweight, quiet, and portable. Take your machine with you when you travel or are not sleeping at home. Some devices have chargeable batteries. They can be taken campingor when sleeping outdoors. Don't use tap water to fill the water chamber for humidity. Deposits in tap water can build up and affect the machine and your breathing. The product makers usually recommend that you use sterile water or distilled water. Ask your healthcare provider if you need oxygen along with your CPAP or BiPAP machine. Some people with heart failure need both. The equipment wears out with time. Make sure your equipment is tested. Get new equipment as often as your healthcare provider recommends. Last Reviewed Date: 09/28/202119999650-2832 [employer]. All rights reserved. This information is not intended as a substitute for professional medical care. Always follow your healthcare professional's instructions. * Pt Handout (on AVS) - Libby Duffy RN - 08/30/2023 8:23 PM EST Images from the original note were not included. 34225 Heart Failure: Assessing Your Heart You have a condition called heart failure. To assess your condition, your doctor will examine you, ask questions, and do some tests. Along with looking for signs of heart failure, the doctor looks for any other health problems that may have led to heart failure. The results of your evaluation will help your doctor form a treatment plan. Health history and physical exam Your visit will start with a review of your health history. Tell the doctor about any symptoms you have and about all medicines you take. Then you?ll have a physical exam. Your doctor will listen to your heartbeat and your breathing. You?ll also be checked for swelling (edema) in your legs and neck. When you have fluid buildup or fluid in the lungs, it can be from congestive heart failure. Diagnosing heart failure These tests may be done to diagnose heart failure: X-rays. These imaging tests show the size and shape of your heart. The pictures can also show fluid in your lungs. An electrocardiogram (ECG). This shows the pattern of your heartbeat. Small pads (electrodes) are placed on your chest, arms, and legs. Wires connect the pads to the ECG machine. The ECG records your heart?s electrical signals. This can give the doctor information about heart function and electrical activity in the heart. An echocardiogram. This uses ultrasound waves to show the structure and movement of your heart muscle. This shows how well the heart pumps. It also shows the thickness of the heart chan, and if the heart is enlarged. It's one of the most useful, noninvasive tests as it gives information about the heart's general function. This helps your provider make treatment decisions. Lab tests. These check small amounts of blood or urine for signs of problems. A BNP (B-type natriuretic peptide) lab test can help diagnose and evaluate heart failure. The ventricles secrete more BNP when heart failure worsens. Lab tests can also give information about other heart problems or other illnesses such as diabetes, anemia, or kidney disease. Your treatment plan Based on the results of your assessment and tests, your doctor will make a treatment plan. This plan aims to ease some of your symptoms and help make you more comfortable. Your treatment plan may include: Medicine to help your heart work better and improve your quality of life Changes in what you eat and drink to help prevent fluid backup in your body Weighing yourself daily and watching your symptoms to see how well your treatment is working Exercise to help you stay healthy Help to stop smoking Support to help adjust to the changes Referrals to other specialists Last Reviewed Date: 04/30/202119992860-9925 [employer]. All rights reserved. This information is not intended as a substitute for professional medical care. Always follow your healthcare professional's instructions. * Pt Handout (on AVS) - Libby Duffy RN - 08/30/2023 8:23 PM EST Images from the original note were not included. 33567 Coping with Heart Failure It?s normal to feel sad or down at times when you?re living with heart failure. Some medicines can also affect your mood. Following your treatment plan may seem difficult at times. If you feel overwhelmed, just focus on one day at a time. Don?t be afraid to ask others for help when you need it. Ways to feel better Try not to withdraw from family and friends, even if you're finding it hard to talk to them. They can still be a good source of support. To feel better, you can also: Spend time doing things you enjoy. This may include taking part in a favorite hobby, meditating,praying, or spending time with people you care about. Find activities that make you happy. And makethose a priority. Share what you learn about heart failure with the people in your life. Invite family members along when you visit your healthcare provider. This will help you feel supported. And it will help you discuss the care plan you've agreed upon with your provider. Think about joining a support group for people with heart failure. It may be easier to talk to people who know firsthand what you?re going through. They can offer advice and share stories. You maywant to ask loved ones to join you for a meeting. Asking for help Having heart failure doesn?t mean that you have to feel bad all the time. Think about talking to your healthcare provider or a therapist if: You feel worthless or helpless, or are thinking about suicide. These are warning signs of depression. Treatment can help you feel better. When depression is under control, your overall health may also improve. You feel anxious about what will happen to your loved ones if your health gets worse. Taking care of legal arrangements, such as a living will and durable power of zinc skimmer, can help you feel moresecure about the future. You feel stressed or alone. Social support helps reduce stress and helps you stick with your healthy lifestyle changes. Without social support, you may end up back in the hospital. Last Reviewed Date: 04/30/202119994074-7954 [employer]. All rights reserved. This information is not intended as a substitute for professional medical care. Always follow your healthcare professional's instructions. * Pt Handout (on AVS) - Libby Duffy RN - 08/30/2023 8:22 PM EST Images from the original note were not included. 27063 Heart Failure: Know Your Baselines The first step to managing heart failure symptoms is getting to know what?s normal for you. How much can you usually do before shortness of breath is a problem? Do your socks and shoes fit comfortably? How much do you weigh? How your symptoms usually feel are your baselines. Knowing what?s normal for you will help you see when symptoms are getting worse. You?ll know because you won?t feel normal anymore. Worsening symptoms means your heart is under stress. It's having a hard time pumping blood to the rest of your body, and your body may be retaining fluid. Write some baselines in the box below. These will help you measure your symptoms. Your healthcare provider can help you come up with baselines for measuring your symptoms. Watch for changes Once you?ve come up with baselines, watch for changes daily. Pay attention to how much you can do today. Is it the same as yesterday? Are your shoes tight? Do you need to use a different belt hole? Can you lie flat in bed to sleep without feeling that you are suffocating? Can you eat without feeling full too soon, or short of breath? Are you gaining weight but eating the same amount? If today?s symptoms are different from your baselines, you need to take action. The problem won?t go away by itself. So, if you notice even a small change, don?t ignore it. Your healthcare provider is counting on you to call when you think your symptoms are worse. They will tell you what to do next. Working together this way helps keep heart failure under control and improves the number of good days you have. It could even keep you out of the hospital. Last Reviewed Date: 09/28/202119995297-2444 [employer]. All rights reserved. This information is not intended as a substitute for professional medical care. Always follow your healthcare professional's instructions. * Pt Handout (on AVS) - Libby Duffy RN - 08/30/2023 8:21 PM EST Images from the original note were not included. [id number] Heart Valve Problems Your heart?s job is to pump blood through your body. That job starts with pumping blood through theheart itself. Inside your heart, blood passes through a series of one-way shoemaker (valves). If a valve doesn't work correctly, not enough blood moves forward. A problem heart valve may not open wide enough, not close tightly enough, or both. In any case, not enough blood is sent to the heart muscle or out to the body. Symptoms of heart valve problems You can have a problem valve for decades yet have no symptoms. If you do have symptoms, they may come on so slowly that you barely notice them. In other cases, though, symptoms appear suddenly. You might have one or more of these symptoms: Problems breathing when you lie down, exert yourself, or get stressed emotionally Pain, pressure, tightness, or numbness in your chest, neck, back, or arms (angina) Feeling dizzy, faint, or lightheaded Tiredness, especially with activity or as the day goes on Waking up at night coughing or short of breath A fast, pounding, or irregular heartbeat A fluttering feeling in your chest Swollen ankles or feet Fainting, especially on standing up or with exertion Common causes of valve problems People of any age can have heart valve trouble. You may have been born with a problem valve. Or a valve may have worn out as you?ve aged. It may not be possible to pinpoint what caused your valve problem. But common causes include: Buildup of calcium or scar tissue on a valve Rheumatic fever and certain other infections and diseases High blood pressure Other heart problems, such as coronary artery disease Congenital defects of the heart valves Problems opening (stenosis) When a valve doesn?t open all the way, the problem is called stenosis. The leaflets may be stuck together or too stiff to open fully. When the valve doesn?t open fully, blood has to flow through a smaller opening. So the heart muscle has to work harder to push the blood through the valve. Stenosis. Problems closing (regurgitation) When a valve doesn?t close tightly enough and blood leaks backward through the valve, the problem is called regurgitation or insufficiency. The valve itself may be described as leaky. Leaflets may fit together poorly. Or the structures that support them may be torn. Some blood leaks through the valve back into the chamber it just left. So the heart has to move that blood twice. This can result inheart muscle damage. Regurgitation. Last Reviewed Date: 07/31/202119993421-4298 [employer]. All rights reserved. This information is not intended as a substitute for professional medical care. Always follow your healthcare professional's instructions. * Pt Handout (on AVS) - Libby Duffy RN - 08/30/2023 8:20 PM EST [id number] Discharge Instructions for Cardiomyopathy Cardiomyopathy means that your heart muscle is not working as it normally should. The heart muscle may become enlarged, thickened, or rigid. This may result in the heart becoming weaker. This condition can make it harder to do things that may have been easy for you in the past. But with proper treatment and some lifestyle changes, you and your healthcare provider can help your heart do its job. Home care Work hard to cut the salt from your diet. Here are tips: Limit canned, dried, packaged, and fast foods. Don?t add salt to your food at the table. Season foods with herbs instead of salt when you cook. When you eat out, ask that the chef under not add any salt to your dish. Don't eat fried or greasy foods. Be careful of bottled beverages. They can contain a lot of salt. Also check the labels of lwty-xuk-nkmcvqe medicines and supplements. They may be high in sodium. Ask your pharmacist or provider if you need help finding a low- salt product. Be as active as you can. Ask your healthcare provider how to get started: Simple activities such as walking or gardening can help. Find activities you enjoy and make them a priority. Cardiac rehab programs can help you reach your activity goals. You exercise while staff closely watches the stress on your heart. These programs may be covered by insurance. Other tips for home care: Limit how much fluid you have each day. Your healthcare provider will tell you how much is safe. If you smoke, break the smoking habit. Enroll in a stop-smoking program to improve your chances of success. Join smoking cessation support groups or ask your healthcare provider about nicotine replacement products or medicines to help. Take your medicines exactly as directed. Don?t skip doses. Don?t stop taking your medicines without talking to your healthcare provider first. Some zvyj-kqn-yzqlfmr medicines and herbal supplements can increase your heart rate or blood pressure. This can put extra stress on your heart. Check with your pharmacist or healthcare provider tosee if products are heart-safe and won't interact with other medicines you take. Visit your healthcare provider regularly. Mention any problems with your treatment plan. Together you can find a plan that works for you. Weigh yourself at the same time each day. The best time is in the morning after you wake up and after peeing. Wear the same clothing each time. Keep a written record of your daily weight. Eliminate or limit how much alcohol you drink. Too much alcohol is bad for the heart. Follow-up care Make a follow-up appointment as advised. When to call your healthcare provider Call your healthcare provider right away if you have any of the following: You gain more than 2 pounds in 1 day, more than 5 pounds in 1 week, or whatever weight gain you were told to report by your healthcare provider. New or increased swelling in your hands, feet, or ankles Call 911 Call 911 if any of the following occur: New or increased chest pain that doesn't get better with medicine New or increased shortness of breath Weakness in the muscles of your face, arms, or legs Trouble speaking Rapid pulse or pounding heartbeat Fainting, or feeling dizzy or lightheaded Last Reviewed Date: 09/28/202119991249-9230 [employer]. All rights reserved. This information is not intended as a substitute for professional medical care. Always follow your healthcare professional's instructions. * Pt Handout (on AVS) - Melisa Her RN - 08/30/2023 6:53 PM EST Images from the original note were not included. [id number] Heart Failure: Making Changes to Your Diet You have a condition called heart failure. When you have heart failure, excess fluid is more likelyto build up in your body because your heart isn't working well. This makes the heart work harder topump blood. Fluid buildup causes symptoms such as shortness of breath and swelling (edema). This isoften called congestive heart failure or CHF. Controlling the amount of salt (sodium) you eat may help stop fluid from building up. Your healthcare provider may also tell you to reduce the amount of fluid you drink. Reading food labels Your healthcare provider will tell you how much sodium you can eat each day. Read food labels to keep track. Keep in mind that certain foods are high in salt. These include canned, frozen, and processed foods. Check the amount of sodium in each serving. Watch out for high-sodium ingredients. These include MSG (monosodium glutamate), baking soda, and sodium phosphate. Eating less salt Give yourself time to get used to eating less salt. It may take a little while. Here are some tips to help: Take the saltshaker off the table. Replace it with salt-free herb mixes and spices. Eat fresh or plain frozen vegetables. These have much less salt than canned vegetables. Choose low-sodium snacks such as sodium-free pretzels, crackers, or air- popped popcorn. Don?t add salt to your food when you?re cooking. Instead, season your foods with pepper, lemon, garlic, or onion. When you eat out, ask that your food be cooked without added salt. Don't eat fried foods as these often have a great deal of salt. Talk with your healthcare provider before using salt substitutes. They often contain potassium and may not be good for your health. This will depend on how well your kidneys are working and what medicines you?re taking. Some people need extra potassium, but others don?t. If you?re told to limit fluids In some cases, you may need to limit how much fluid you consume to help prevent swelling. This includes anything that is liquid at room temperature, such as ice cream and soup. If your healthcare provider tells you to limit fluid, try these tips: Measure drinks in a measuring cup before you drink them. This will help you meet daily goals. Chill drinks to make them more refreshing. Suck on frozen lemon wedges to quench thirst. Only drink when you?re thirsty. Chew sugarless gum or suck on sugarless hard candy to keep your mouth moist. Weigh yourself daily to know if your body's fluid content is rising. My sodium goal Your healthcare provider may give you a sodium goal to meet each day. This includes sodium found infood as well as salt that you add. My goal is to eat no more than mg of sodium per day. When to call your healthcare provider Call your provider right away if you have any symptoms of worsening heart failure. These can include: Sudden weight gain Increased swelling of your legs or ankles Mild trouble breathing when you?re resting or at night Increase in the number of pillows you have to sleep on or feeling the need to sleep upright in achair Dry hacking cough No energy or feeling more tired Call 911 Call 911 if any of these occur: Chest pain Pressure, discomfort, or pain in the jaw, neck, or back A lot of trouble breathing, either at rest or with activity Abnormally fast pulse or pounding heartbeat Fainting or severe dizziness Confusion or can't think clearly Last Reviewed Date: 2021 [employer]. All rights reserved. This information is not intended as a substitute for professional medical care. Always follow your healthcare professional's instructions. * Care Plan - Melisa Her RN - 08/30/2023 5:10 PM EST Clinical Goal(s): Patient will remain free of falls/injuries this shift. (08/30/23 0700) Possible barriers to meeting goal(s)/advancing plan of care: weakness, unfamiliar surroundings Stability of the patient: Moderately stable - low risk of patient condition declining or worsening Summary regarding today's goal(s): Met: pt remained free of falls and injury this shift Recommendations: continue fall precautions and frequent rounding * Pt Handout (on AVS) - Melisa Her RN - 08/30/2023 1:58 PM EST Images from the original note were not included. [id number] Heart Failure: Warning Signs of a Flare-Up You have heart failure. Once you have heart failure, flare-ups can happen. Below are signs that canmean your heart failure is getting worse. If you notice any of these warning signs, call your healthcare provider. Swelling Your feet, ankles, or lower legs get puffier. You notice skin changes on your lower legs. Your shoes feel too tight. Your clothes are tighter in the waist. You have trouble getting rings on or off your fingers. Shortness of breath You have to breathe harder even with normal activity or at rest. You're short of breath walking up stairs or even short distances. You wake up at night short of breath or coughing. You need to use more pillows or sit up to sleep. You wake up tired or restless. Other warning signs You feel weaker, dizzy, or more tired. You have chest pain or changes in your heartbeat. You have a cough that won?t go away. You can?t remember things or don?t feel like eating. You have trouble sleeping. Tracking your weight Gaining weight is often the first warning sign that heart failure is getting worse. Gaining even a few pounds can be a sign that your body is retaining excess water and salt. Weighing yourself each day in the morning after you pee and before you eat, is the best way to know if you're retaining water. Get a scale that's easy to read. Make sure you wear the same clothes and use the same scale everytime you weigh yourself. Your healthcare provider will show you how to track your weight. Call yourprovider if you gain: More than 2 pounds in 1 day More than 5 pounds in 1 week Or whatever weight gain you were told to report by your provider This has to be evaluated and treated before it affects your breathing. Your provider will tell you what to do next. Last Reviewed Date: 04/30/202119993574-1462 [employer]. All rights reserved. This information is not intended as a substitute for professional medical care. Always follow your healthcare professional's instructions. * Pt Handout (on AVS) - Melisa Her RN - 08/30/2023 1:57 PM EST [id number] Heart Failure What is heart failure? The heart is a muscle that pumps oxygen-rich blood to all parts of the body. When you have heart failure, the heart can?t pump as well as it should. Or the heart muscle can?t relax and fill the pumping chamber with blood. Blood and fluid may back up into the lungs. This causes heart failure. And itcauses pulmonary edema. Some parts of the body also don?t get enough oxygen-rich blood. This means they can't work well. These problems lead to the symptoms of heart failure. What causes heart failure? Heart failure may result from: Heart valve disease High blood pressure Active infections of the heart valves or heart muscle, such as endocarditis A past heart attack Coronary artery disease Disease of the heart muscle (cardiomyopathy) Heart problems that are present at (congenital heart defects) Heart rhythm problems (arrhythmias) Long-term (chronic) lung disease and pulmonary embolism A reaction to medicines, such as those used for chemotherapy Anemia and too much blood loss Thyroid disorders Diabetes Alcohol and drug abuse Certain viral infections What are the symptoms of heart failure? The most common symptoms of heart failure are: Shortness of breath while resting, exercising, or lying flat Weight gain from water retention Visible swelling of the legs, ankles, and feet from fluid buildup. Sometimes the belly (abdomen)may swell. Severe tiredness (fatigue) and weakness Loss of appetite, nausea, and belly pain Cough that doesn?t go away. It can cause blood-tinged or frothy sputum. The severity of the condition and symptoms depends on how much of the heart's pumping ability has been affected. The first step in managing heart failure symptoms is knowing your baselines or what?s normal for you. How much do you weigh? Are you gaining weight but eating the same amount? How much can you do before you feel short of breath? Do your socks and shoes fit comfortably? Knowing what?s normal for you will help you see when symptoms are getting worse. Once you know your baselines, watchfor changes daily. The symptoms of heart failure may look like other health problems. Always see your healthcare provider for a diagnosis. How is heart failure diagnosed? Your healthcare provider will ask about your health history. They will give you a physical exam. You may need tests, such as: Chest X-ray. This test makes images of internal tissues, bones, and organs on film. This test shows the size and shape of your heart. Fluid in the lungs will also show up on X-ray. Echocardiogram. This test is also called an echo. It uses sound waves to assess the motion of the heart?s chambers and valves. The sound waves make an image on the screen as an ultrasound transducer is passed over the heart. This shows how well the heart pumps and relaxes. It also shows the thickness of the heart chan, and if the heart is enlarged. It can assess heart valve function and bloodflow as well. It is one of the most useful tests because it shows a lot of information about the heart?s function. And it can help guide treatment choices. Electrocardiogram. This test records the electrical activity of the heart. It shows abnormal rhythms. It can sometimes find heart muscle damage. BNP testing. B-type natriuretic peptide (BNP) is a hormone released from the ventricles that occurs with heart failure. BNP levels are useful in the quick assessment of heart failure. The higher the BNP levels, the worse the heart failure. BNP is measured from a blood sample. Cardiac MRI. This test uses a magnetic field to make images of the heart and its nearby tissues.It can assess how the heart muscle and valves are working. How is heart failure treated? The cause of heart failure will guide the treatment plan. If heart failure is caused by a valve problem or coronary heart disease, then you may need a procedure. This may be a percutaneous coronary intervention. Or it may be surgery. If heart failure is caused by a problem, such as anemia or an infe ction, you may need medicine to treat this problem. Some causes of heart failure are reversible or short-term, such as an acute infection. For many causes of heart failure there is no cure. But many forms of treatment can help with symptoms. They are listed below. Lifestyle changes These healthy habits may help with heart failure: Controlling blood pressure Controlling blood sugar if you have diabetes Quitting smoking Maintaining a healthy weight. Losing weight, if needed Regular exercise Limiting salt and fat in your diet Not drinking alcohol or using illicit drugs Getting enough rest Reducing stress Other important lifestyle habits include getting vaccines, such as for the flu and pneumococcal pneumonia. If you have sleep problems, getting a sleep study can help find out what?s causing them. You may need to wear a C-PAP mask while you sleep. This will make sure you get enough oxygen. Too little oxygen can put stress on your heart. Medicines Many types of medicines are available for heart failure. They include: Angiotensin converting enzyme (FRANTZ) inhibitors. These lower the pressure inside the blood vessels. This reduces the pressure that the heart has to pump against. They can also help the heart have better pumping ability over time. Angiotensin receptor blockers (ARB). Some people get a cough and need to stop taking FRANTZ inhibitors. If that happens, an ARB may work for you. These help relax blood vessels and reduce stress on the heart. Angiotensin receptor-neprilysin inhibitors (ARNIs). This medicine combines an ARB and a neprilysin inhibitor. This can help the heart as noted above. And it can promote salt and water loss. This medicine is preferred over FRANTZ inhibitors and ARBs alone. Diuretics. These reduce the amount of fluid in the body. They are among the most important medicines in helping control fluid buildup in the body. Beta-blockers. These reduce the heart?s tendency to beat faster. They can also help the heart pump better over time. Aldosterone blockers. These block the effects of the hormone aldosterone. This hormone causes sodium and water retention. Vasodilators. These include hydralazine and nitroglycerin. These widen (dilate) the blood vessels. They reduce the workload on the heart. Statins or PCSK9 inhibitors. These lower the amount of bad cholesterol in your blood. They are not used to treat heart failure. But you may take one if you have high cholesterol. Or you may take one if you have had a past heart attack and are at risk for heart failure. People who have inherited forms of high cholesterol (familial hypercholesterolemia) may get help from PCSK9 inhibitors. These medicines lower cholesterol. Sodium-glucose cotransporter-2 (SGLT2) inhibitors. They block your kidneys from reabsorbing sugar from the blood. This helps your body get rid of extra salt and water and so lowers your blood pressure. Lowering your blood pressure eases the strain on your heart. Digitalis. This medicine helps the heart beat stronger. It may help with controlling heart rate if there is an abnormal heart rhythm. Antiarrhythmics. These help keep normal heart rhythm. Sinus node I-f channel vikki. This may be used to lower your heart rate. It may result in lessstress on your heart. This medicine is reserved for people who still have high resting heart rates despite use of beta blockers. Heart procedures These include opening blocked arteries in the heart. This brings back blood flow to the heart muscle. It helps the ventricles squeeze as they should. The procedure can be done in the cardiac catheterization lab. It uses balloons to push plaque and blood clots out of the artery. It also uses stents to keep the artery open. This can also be done by bypassing blockages during surgery (coronary artery bypass surgery). Heart valve repair or replacement In some cases, medicines can?t help heart failure caused by heart valves that are narrowed (stenosed) or leak (regurgitant). The heart valve can be repaired or replaced. This can be done as an open-heart procedure. Or it can be done by going through a small tube (catheter) that is put into an artery or vein. Pacemaker If your heart failure has also damaged your heart?s electrical wiring system, a pacemaker can be implanted. This is done to restore normal heart rate and regularity. A cardiac resynchronizing pacemaker is used when one of the natural heart wires is damaged. This is often the wire located in the left ventricle. These pacemakers use implanted left and right sided wires to restore normal timing of the heart contraction in order to improve heart function. ICD (implantable cardioverter defibrillator) When the heart muscle is damaged, dangerous heart circuits can form in the heart muscle. This leadsto heart rhythms that can cause . An ICD is implanted in the body to sense and treat these cardiac arrest rhythms. It does this by overdrive pacing the heart rhythm. Or it sends an energy shock to the heart. VAD (ventricular assist device) This device is put in the chest during a surgery. It connects to an outside motor. The motor helps pump blood from the heart to the rest of the body. VADs can allow people with advanced heart failureto improve their overall symptoms and to walk more. This can be used as a long-term treatment. Or it can be used while someone waits for a donor heart for a transplant. Heart transplant In some cases, the diseased heart must be replaced with a healthy one from a donor. Talk with your healthcare providers about the risks, benefits, and possible side effects of all treatments. What are possible complications of heart failure? Complications of heart failure include: Fluid buildup in the lungs (pulmonary edema) Kidney and liver failure Stroke Abnormal heart rhythms How daily issues affect your health Many things in your daily life impact your health. This can include transportation, money problems,housing, access to food, and child care team lead. If you can?t get to medical appointments, you may not receive the care you need. When money is tight, it may be difficult to pay for medicines. And living farfrom a grocery store can make it hard to buy healthy food. If you have concerns in any of these or other areas, talk with your healthcare team. They may know of local resources to assist you. Or they may have a staff person who can help. Tapia points about heart failure When you have heart failure, the heart can?t pump as well as it should. Heart failure may result from health problems that affect the heart, such as high blood pressure, coronary artery disease, and heart attack. Some common symptoms are shortness of breath, weight gain, and visible swelling of the legs and ankles. A chest X-ray can help diagnose lung congestion. Treatment varies based on the cause of heart failure. Most people are advised to make certain lifestyle changes and to take certain medicines, often for life. Procedures, such as coronary intervention and surgery, may be needed. Next steps Tips to help you get the most from a visit to your healthcare provider: Know the reason for your visit and what you want to happen. Before your visit, write down questions you want answered. Bring someone with you to help you ask questions and remember what your provider tells you. At the visit, write down the name of a new diagnosis, and any new medicines, treatments, or tests. Also write down any new instructions your provider gives you. Know why a new medicine or treatment is prescribed, and how it will help you. Also know what theside effects are. Ask if your condition can be treated in other ways. Know why a test or procedure is recommended and what the results could mean. Know what to expect if you do not take the medicine or have the test or procedure. If you have a follow-up appointment, write down the date, time, and purpose for that visit. Know how you can contact your healthcare provider if you have questions, especially after officehours or on weekends. Last Reviewed Date: 01/28/202319991827-4488 [employer]. All rights reserved. This information is not intended as a substitute for professional medical care. Always follow your healthcare professional's instructions. * Pt Handout (on AVS) - Melisa Her RN - 08/30/2023 1:57 PM EST [id number] Heart Failure What is heart failure? The heart is a muscle that pumps oxygen-rich blood to all parts of the body. When you have heart failure, the heart can?t pump as well as it should. Or the heart muscle can?t relax and fill the pumping chamber with blood. Blood and fluid may back up into the lungs. This causes heart failure. And itcauses pulmonary edema. Some parts of the body also don?t get enough oxygen-rich blood. This means they can't work well. These problems lead to the symptoms of heart failure. What causes heart failure? Heart failure may result from: Heart valve disease High blood pressure Active infections of the heart valves or heart muscle, such as endocarditis A past heart attack Coronary artery disease Disease of the heart muscle (cardiomyopathy) Heart problems that are present at (congenital heart defects) Heart rhythm problems (arrhythmias) Long-term (chronic) lung disease and pulmonary embolism A reaction to medicines, such as those used for chemotherapy Anemia and too much blood loss Thyroid disorders Diabetes Alcohol and drug abuse Certain viral infections What are the symptoms of heart failure? The most common symptoms of heart failure are: Shortness of breath while resting, exercising, or lying flat Weight gain from water retention Visible swelling of the legs, ankles, and feet from fluid buildup. Sometimes the belly (abdomen)may swell. Severe tiredness (fatigue) and weakness Loss of appetite, nausea, and belly pain Cough that doesn?t go away. It can cause blood-tinged or frothy sputum. The severity of the condition and symptoms depends on how much of the heart's pumping ability has been affected. The first step in managing heart failure symptoms is knowing your baselines or what?s normal for you. How much do you weigh? Are you gaining weight but eating the same amount? How much can you do before you feel short of breath? Do your socks and shoes fit comfortably? Knowing what?s normal for you will help you see when symptoms are getting worse. Once you know your baselines, watchfor changes daily. The symptoms of heart failure may look like other health problems. Always see your healthcare provider for a diagnosis. How is heart failure diagnosed? Your healthcare provider will ask about your health history. They will give you a physical exam. You may need tests, such as: Chest X-ray. This test makes images of internal tissues, bones, and organs on film. This test shows the size and shape of your heart. Fluid in the lungs will also show up on X-ray. Echocardiogram. This test is also called an echo. It uses sound waves to assess the motion of the heart?s chambers and valves. The sound waves make an image on the screen as an ultrasound transducer is passed over the heart. This shows how well the heart pumps and relaxes. It also shows the thickness of the heart chan, and if the heart is enlarged. It can assess heart valve function and bloodflow as well. It is one of the most useful tests because it shows a lot of information about the heart?s function. And it can help guide treatment choices. Electrocardiogram. This test records the electrical activity of the heart. It shows abnormal rhythms. It can sometimes find heart muscle damage. BNP testing. B-type natriuretic peptide (BNP) is a hormone released from the ventricles that occurs with heart failure. BNP levels are useful in the quick assessment of heart failure. The higher the BNP levels, the worse the heart failure. BNP is measured from a blood sample. Cardiac MRI. This test uses a magnetic field to make images of the heart and its nearby tissues.It can assess how the heart muscle and valves are working. How is heart failure treated? The cause of heart failure will guide the treatment plan. If heart failure is caused by a valve problem or coronary heart disease, then you may need a procedure. This may be a percutaneous coronary intervention. Or it may be surgery. If heart failure is caused by a problem, such as anemia or an infe ction, you may need medicine to treat this problem. Some causes of heart failure are reversible or short-term, such as an acute infection. For many causes of heart failure there is no cure. But many forms of treatment can help with symptoms. They are listed below. Lifestyle changes These healthy habits may help with heart failure: Controlling blood pressure Controlling blood sugar if you have diabetes Quitting smoking Maintaining a healthy weight. Losing weight, if needed Regular exercise Limiting salt and fat in your diet Not drinking alcohol or using illicit drugs Getting enough rest Reducing stress Other important lifestyle habits include getting vaccines, such as for the flu and pneumococcal pneumonia. If you have sleep problems, getting a sleep study can help find out what?s causing them. You may need to wear a C-PAP mask while you sleep. This will make sure you get enough oxygen. Too little oxygen can put stress on your heart. Medicines Many types of medicines are available for heart failure. They include: Angiotensin converting enzyme (FRANTZ) inhibitors. These lower the pressure inside the blood vessels. This reduces the pressure that the heart has to pump against. They can also help the heart have better pumping ability over time. Angiotensin receptor blockers (ARB). Some people get a cough and need to stop taking FRANTZ inhibitors. If that happens, an ARB may work for you. These help relax blood vessels and reduce stress on the heart. Angiotensin receptor-neprilysin inhibitors (ARNIs). This medicine combines an ARB and a neprilysin inhibitor. This can help the heart as noted above. And it can promote salt and water loss. This medicine is preferred over FRANTZ inhibitors and ARBs alone. Diuretics. These reduce the amount of fluid in the body. They are among the most important medicines in helping control fluid buildup in the body. Beta-blockers. These reduce the heart?s tendency to beat faster. They can also help the heart pump better over time. Aldosterone blockers. These block the effects of the hormone aldosterone. This hormone causes sodium and water retention. Vasodilators. These include hydralazine and nitroglycerin. These widen (dilate) the blood vessels. They reduce the workload on the heart. Statins or PCSK9 inhibitors. These lower the amount of bad cholesterol in your blood. They are not used to treat heart failure. But you may take one if you have high cholesterol. Or you may take one if you have had a past heart attack and are at risk for heart failure. People who have inherited forms of high cholesterol (familial hypercholesterolemia) may get help from PCSK9 inhibitors. These medicines lower cholesterol. Sodium-glucose cotransporter-2 (SGLT2) inhibitors. They block your kidneys from reabsorbing sugar from the blood. This helps your body get rid of extra salt and water and so lowers your blood pressure. Lowering your blood pressure eases the strain on your heart. Digitalis. This medicine helps the heart beat stronger. It may help with controlling heart rate if there is an abnormal heart rhythm. Antiarrhythmics. These help keep normal heart rhythm. Sinus node I-f channel vikki. This may be used to lower your heart rate. It may result in lessstress on your heart. This medicine is reserved for people who still have high resting heart rates despite use of beta blockers. Heart procedures These include opening blocked arteries in the heart. This brings back blood flow to the heart muscle. It helps the ventricles squeeze as they should. The procedure can be done in the cardiac catheterization lab. It uses balloons to push plaque and blood clots out of the artery. It also uses stents to keep the artery open. This can also be done by bypassing blockages during surgery (coronary artery bypass surgery). Heart valve repair or replacement In some cases, medicines can?t help heart failure caused by heart valves that are narrowed (stenosed) or leak (regurgitant). The heart valve can be repaired or replaced. This can be done as an open-heart procedure. Or it can be done by going through a small tube (catheter) that is put into an artery or vein. Pacemaker If your heart failure has also damaged your heart?s electrical wiring system, a pacemaker can be implanted. This is done to restore normal heart rate and regularity. A cardiac resynchronizing pacemaker is used when one of the natural heart wires is damaged. This is often the wire located in the left ventricle. These pacemakers use implanted left and right sided wires to restore normal timing of the heart contraction in order to improve heart function. ICD (implantable cardioverter defibrillator) When the heart muscle is damaged, dangerous heart circuits can form in the heart muscle. This leadsto heart rhythms that can cause . An ICD is implanted in the body to sense and treat these cardiac arrest rhythms. It does this by overdrive pacing the heart rhythm. Or it sends an energy shock to the heart. VAD (ventricular assist device) This device is put in the chest during a surgery. It connects to an outside motor. The motor helps pump blood from the heart to the rest of the body. VADs can allow people with advanced heart failureto improve their overall symptoms and to walk more. This can be used as a long-term treatment. Or it can be used while someone waits for a donor heart for a transplant. Heart transplant In some cases, the diseased heart must be replaced with a healthy one from a donor. Talk with your healthcare providers about the risks, benefits, and possible side effects of all treatments. What are possible complications of heart failure? Complications of heart failure include: Fluid buildup in the lungs (pulmonary edema) Kidney and liver failure Stroke Abnormal heart rhythms How daily issues affect your health Many things in your daily life impact your health. This can include transportation, money problems,housing, access to food, and child care team lead. If you can?t get to medical appointments, you may not receive the care you need. When money is tight, it may be difficult to pay for medicines. And living farfrom a grocery store can make it hard to buy healthy food. If you have concerns in any of these or other areas, talk with your healthcare team. They may know of local resources to assist you. Or they may have a staff person who can help. Tapia points about heart failure When you have heart failure, the heart can?t pump as well as it should. Heart failure may result from health problems that affect the heart, such as high blood pressure, coronary artery disease, and heart attack. Some common symptoms are shortness of breath, weight gain, and visible swelling of the legs and ankles. A chest X-ray can help diagnose lung congestion. Treatment varies based on the cause of heart failure. Most people are advised to make certain lifestyle changes and to take certain medicines, often for life. Procedures, such as coronary intervention and surgery, may be needed. Next steps Tips to help you get the most from a visit to your healthcare provider: Know the reason for your visit and what you want to happen. Before your visit, write down questions you want answered. Bring someone with you to help you ask questions and remember what your provider tells you. At the visit, write down the name of a new diagnosis, and any new medicines, treatments, or tests. Also write down any new instructions your provider gives you. Know why a new medicine or treatment is prescribed, and how it will help you. Also know what theside effects are. Ask if your condition can be treated in other ways. Know why a test or procedure is recommended and what the results could mean. Know what to expect if you do not take the medicine or have the test or procedure. If you have a follow-up appointment, write down the date, time, and purpose for that visit. Know how you can contact your healthcare provider if you have questions, especially after officehours or on weekends. Last Reviewed Date: 01/28/202319995045-6603 [employer]. All rights reserved. This information is not intended as a substitute for professional medical care. Always follow your healthcare professional's instructions. * Ancillary Progress Note - Gricel Martinez RN - 08/30/2023 12:51 PM EST CARE MANAGEMENT - ADULT INITIAL SCREENING [place] [address] [facility] [id number] Name: Maria Luisa Recinos Location: [place] [address] CCU- Date: 08/30/2023 Time: 12:51 PM Discussed patient with the interdisciplinary care team. This Rn [employer] performed a chart review and spoke with her daughter, Betty to complete admission screen and assessed needs for transition planning. The acute care nursing assistant role and services were explained and emotional support was provided. Chief Complaint: Weakness, Generalized (Increase coughing, hoarse voice) Pt was admitted on 08/29/23 with Influenza, Cardiomyopathy with decompensated Heart Failure and PNA. Pts medical decision maker has been identified as being her children Betty Price and Juan Pablo Recinos whom pt would like notified of the DC. Per review of the medical record, pt has no admitting MH Dx. Pts primary pharmacy has been identified as being [facility]. Pt describes having an intact family support system. Pt denies any prior Hx of Substance abuse. Pt denies difficulty completing her ADLs prior to admission. Pt reports to being able to read/write. Pt denies difficulty managing her own medications prior to admission. Prior Living Arrangements What was your living situation prior to admission/observation?: With Child (08/29/232031) Living Quarters: House (08/30/231242) Number of steps to enter living quarters:: 2 (08/30/231242) Do you have serious difficulty walking or climbing stairs? (5 years old or older): Yes (08/29/232031) History of falling: No (08/30/23899) Prior Level of Functioning Describe the patient's ability prior to admission/observation to perform ADLs: Requires assistance (08/29/232031) Requires assistance with: Dressing;Toileting;Bathing;Grooming;Eating (08/29/232031) Describe the patient's mobility status prior to admission: Patient requires assistance with ambulation (08/29/232031) Patient uses assistive device: Yes (08/29/232031) If yes, choose:: Walker (08/29/232031) Caregiver Information Patient Contacts Name Relation Home Work Mobile Betty Price Adult Child [phone] Juan Pablo Recinos Adult Child [phone] Risk Stratification/Psychosocial/Care Gaps Risk Stratification Psycho Social / Medical Concerns Identified: Adjustment to illness/injury;Multiple Comorbidities (08/30/231242) Accessed Neighborly to connect patients to social care resources: No (08/30/231242) OBRA or OPTIONS needed for placement: No (08/30/231242) Readmission Risk Score: 24.07 (08/30/23 1201) AM-PAC Score With Stairs : 16 (08/30/23 0930) Prior to Admission Services Services Prior to Admission SUPERVISOR PAPER MACHINE Services (Services received within the last 30 days with exception, Psych within last two years): Home Health (08/30/23 124) List All Provider/Service Name: [facility] ([facility]) (08/30/23 124) Agency contacted: Yes (08/30/23 124) Spoke with - Comment: Amanda (08/30/23 124) [place] Dept[employer] Aging (PDA) Waiver Program: N/A (08/30/23 124) SUPERVISOR PAPER MACHINE Transportation (Services received within the last 30 days): Family/Friends Personal Vehicle (08/30/23 124) Outpatient Rn International: No care customer solutions teammate to display Patient/Family Expectations: To return home Tentative DC plan: Once deemed Medically appropriate, it's anticipated pt will return back to home pending continued Medical workup/evaluations and findings. Pt describes her home DME prior to admission as being a RW/Cane/SC and is expected to resume upon DC. Pt uses 2 Liter of 02 continuously which is serviced by [employer] It is anticipated shewill resume the same at DC. Pt is active with [facility] ([facility]) for SN/PT/OT upon DC pending Tx Team recommended will resume the same. Pt may benefit from SNF for Rehab post DC. The Tx Team will meet daily in order to discuss DC planning/needs. Rice Farmer will continue to follow for any identified needs and/or concerns which may arise. For further screening information, please refer to the Care Management flow document. * Care Plan - Piper Freeman RN - 08/30/2023 4:57 AM EST Clinical Goal(s): pt will maintain adequate oxygen saturations greater than 91% this shift (08/29/23 2300) Possible barriers to meeting goal(s)/advancing plan of care: risk for ineffective breathing pattern Stability of the patient: Moderately stable - low risk of patient condition declining or worsening Summary regarding today's goal(s): Met: Recommendations: continue supplemental oxygen via nasal cannula and continue to monitor oxygen saturations * Ancillary Progress Note - Javed Patterson. Myranda, SCIENTIFIC AFFAIRS MANAGER - 08/29/2023 8:21 PM EST PATIENT DRIVEN PROTOCOL - Respiratory Care Services [place] [id number] [facility] [phone] Name: Maria Luisa Recinos Location: [place] [address] CCU- Date: 08/29/2023 Time: 8:23 PM Patient Driven Protocol Summary: Initial evaluation performed. This Treatment Plan and medications will be reviewed by the Primary Care Team for any contraindications. Respiratory Care Treatment Plan Aerosol Therapy Treatment:: Hand Held Nebulizer Tx BID with Duoneb: Unit Dose. to reduce work of breathing and improve pulmonary gas exchange. Additional Aerosolized Treatments: Hand Held Nebulizer Tx PRN with Albuterol Sulfate: Unit dose 0.083%. to reduce work of breathing and improve pulmonary gas exchange. Additional Aerosolized Treatments: Inhaler(s) QDAY with Breo Ellipta (Fluticasone furoate 100 mcg and Vilanterol 25 mcg inhalation powder) / 1 inhalation. to suppress bronchial inflammation and edema by the use of systemic steroid sparing therapy. . Secretion Management Treatment: Flutter TherapyQID to enhance mobilization of secretions. . The patient will be re-evaluated: within 48 hours. The Triage Level is: (Assessment Score = 11-15) Level 3. Triage Level Definitions: Level 1 Severe Respiratory/Airway [...] 0 - No Surgical History Chest X-Ray: 4 - Bilateral Infiltrates and Atelectasis Assessment Score: 7 Patient Assessment Clinical Findings Respiratory Pattern: 1 - RR 21 - 25; Patient gets short of breath when hurrying on level ground or walking up a slight hill. Breath Sounds: 3 - Crackles, mild wheezes, coarse bronchial, upper airway noises Cough Effectiveness: 2 - Weak non-productive Sputum Production: 0 - No sputum production Level of Activity: 1 - Ambulatory with assist O2 needed to keep SpO2 greater than or equal to 92%: 1 - Oxygen 1-3 LPM or FiO2 less than 35% Assessment Score: 8 Total Assessment Score: 15 Breath Sounds: Inspiratory and expiratory crackles bilaterally.. Cough and Sputum: A harsh cough produced no sputum... CXR: IMPRESSION: 1. Multifocal airspace opacities concerning for pneumonia superimposed on chronic fibrotic and emphysematous changes. 2. Enlarged mediastinal lymph nodes which are reactive. 3. 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 No dissection. 4. Normal heart size with coronary atherosclerosis and calcification of the mitral valve annulus. 5. Trace bilateral pleural effusions. Vital Signs: Resp: 24 (08/29/231999) Pulse: 78 (08/29/231999) Temp: 36.9 C (98.4 F) (08/29/23 1557) BP: 139/77 (08/29/231999) SpO2: 100 % (08/29/231999) Primary Service: Hospitalists. Admitting Diagnosis: Acute decompensated heart failure (HCC) [I50.9] Pulmonary Diagnosis: CHF, Pneumonia,Pulmonary Hypertension Influenza A. Prescriptions/Home Medications/Durable Medical Equipment: Patient uses Duoneb Bid , Breo qam and oxygen 2 lpm continuous. Recommended New home medications/durable medical equipment/outpatient pulmonary/sleep referral Cardiology and Pulmonary follow up . documented in this encounter Plan of Treatment Upcoming Encounters Date Type Department Care Team (Late st Contact Info) Description 09/11/2023 3:00 PM EST Office Visit Cardiology, [facility] [address] [place] [address] Jennifer Queen PA-C [address] [place] [id number] 09/15/2023 10:30 AM EST PulmDiagnostic Pulmonary Function Lab, [address] [address] Gjsh, Pulm Func Tech [address] [place] [id number] 10/05/2023 8:00 AM EST Office Visit Nephrology, [address] [address] Viktor Nicole MD [facility] [place] 10/10/2023 9:30 AM EDT Office Visit Pulmonary Medicine, [address] [address] Yocasta Proctor CRNP [facility] [place] [address] Pending Results Name Type Priority Associated Diagnoses Date /Time CULTURE, BLOOD Lab Routine 08/29/2023 4:38 PM EST CULTURE, BLOOD Lab Routine 08/29/2023 4:38 PM EST Scheduled Orders Name Type Priority Associated Diagnoses Orde r Schedule CULTURE, BLOOD Lab Routine Perform No w for 1 Occurrences starting 08/29/2023 until 08/29/2023 CULTURE, BLOOD Lab Routine Perform No w for 1 Occurrences starting 08/29/2023 until 08/29/2023 CULTURE, RESPIRATORY, LOWER, AEROBIC Lab Routine One Time for 1 Occurrences starting 08/29/2023 until 08/29/2023 SODIUM, RANDOM URINE Lab Routine One Time for 1 Occurrences starting 09/01/2023 until 09/01/2023 POTASSIUM, RANDOM URINE Lab Routine O ne Time for 1 Occurrences starting 09/01/2023 until 09/01/2023 OSMOLALITY, URINE Lab Routine One Ryan e for 1 Occurrences starting 09/01/2023 until 09/01/2023 ALBUMIN / CREATININE RATIO, URINE Lab Routine One Time for 1 Occurrences starting 09/01/2023 until 09/01/2023 CHLORIDE, RANDOM URINE Lab Routine On e Time for 1 Occurrences starting 09/01/2023 until 09/01/2023 PROTEIN, RANDOM URINE Lab Routine One Time for 1 Occurrences starting 09/01/2023 until 09/01/2023 BASIC METABOLIC PANEL Lab Routine Acute decompensated heart failure (HCC) Expected: 09/04/2023, Expires: 09/01/2024 Scheduled Referrals Name Type Priority Associated Diagnoses Orde r Schedule NEPHROLOGY REFERRAL OP Referral Within 10 days (routine) Acute decompensated heart failure (HCC) Ordered: 09/01/2023 Health Maintenance Due Date Last Done Comments Pneumococcal Vaccine: 65+ Years (1 - PCV) 11/29/1941 Depression Screening 1947 Albumin/Creatinine [...] Procedure Name Priority Date/Time Associated Diagnosis Comments DIFFERENTIAL, AUTOMATED Routine 09/01/2023 5:39 AM EST BASIC METABOLIC PANEL Routine 09/01/2023 5:39 AM EST CBC Routine 09/01/2023 5:39 AM EST PHOSPHORUS Routine 09/01/2023 5:39 AM EST CBC Routine 09/01/2023 5:39 AM EST DIFFERENTIAL, TECHNOLOGIST REVIEW Routine 09/01/2023 5:39 AM EST MAGNESIUM Routine 09/01/2023 5:39 AM EST HC ECG TRACING ONLY Routine 08/31/2023 9 :13 AM EST Heart palpitations DIFFERENTIAL, AUTOMATED Routine 08/31/2023 6:02 AM EST BASIC METABOLIC PANEL Routine 08/31/2023 6:02 AM EST CBC Routine 08/31/2023 6:02 AM EST PHOSPHORUS Routine 08/31/2023 6:02 AM EST CBC Routine 08/31/2023 6:02 AM EST DIFFERENTIAL, TECHNOLOGIST REVIEW Routine 08/31/2023 6:02 AM EST MAGNESIUM Routine 08/31/2023 6:02 AM EST HEPARIN PLATELET FACTOR 4 ANTIBODY WITH REFLEX TO SEROTONIN RELEASE ASSAY STAT 08/30/2023 10:26 AM EST HEPARIN PLATELET FACTOR 4 ANTIBODY WITH REFLEX TO SEROTONIN RELEASE ASSAY STAT 08/30/2023 10:26 AM EST HC ECG TRACING ONLY Routine 08/30/2023 8:32 AM EST Heart palpitations MRSA SCREEN, PCR Routine 08/30/2023 8:19 AM EST ECHO, COMPLETE (2D), TRANS-THORACIC Routine 08/30/2023 8:05 AM EST Heart failure (HCC) SCHISTOCYTES, TECHNOLOGIST REVIEW Add-on 08/30/2023 6:10 AM EST SCHISTOCYTES, TECHNOLOGIST REVIEW Add-on 08/30/2023 6:10 AM EST TROPONIN T, HIGH SENSITIVITY Routine 08/30/2023 6:10 AM EST COMPREHENSIVE METABOLIC PANEL Routine 08/30/2023 6:10 AM EST PHOSPHORUS Routine 08/30/2023 6:10 AM EST CBC Routine 08/30/2023 6:10 AM EST MAGNESIUM Routine 08/30/2023 6:10 AM EST CLINICIAN PERIPHERAL BLOOD SLIDE REQUEST Add-on 08/29/2023 10:11 PM EST TROPONIN T, HIGH SENSITIVITY STAT 08/29/2023 10:11 PM EST D-DIMER Add-on 08/29/2023 10:11 PM EST PT INR Routine 08/29/2023 10:11 PM EST FIBRINOGEN Add-on 08/29/2023 10:11 PM EST LACTATE,WHOLE BLOOD STAT 08/29/2023 7 :[address] CHEST W CONTRAST STAT 08/29/2023 5 :57 PM EST STREPTOCOCCUS PNEUMONIAE ANTIGENS, URINE Add-on 08/29/2023 5:34 PM EST LEGIONELLA ANTIGEN, URINE Add-on 08/29/2023 5:34 PM EST URINALYSIS WITH MICROSCOPIC EXAM STAT 08/29/2023 5:34 PM EST XR CHEST 1 VIEW STAT 08/29/2023 4:48 PM EST LACTATE, WHOLE BLOOD WITH REFLEX IF ABNORMAL STAT 08/29/2023 4:38 PM EST DIFFERENTIAL, AUTOMATED STAT 08/29/2023 4:38 PM EST TROPONIN T, HIGH SENSITIVITY STAT 08/29/2023 4:38 PM EST RESPIRATORY PATHOGEN PANEL, PCR STAT 08/29/2023 4:38 PM EST BLOOD GAS, VENOUS STAT 08/29/2023 4:3 8 PM EST BNP (NT-PROBNP) STAT 08/29/2023 4:38 PM EST COMPREHENSIVE METABOLIC PANEL STAT 08/29/2023 4:38 PM EST CBC STAT 08/29/2023 4:38 PM EST PHOSPHORUS Add-on 08/29/2023 4:38 PM EST CBC STAT 08/29/2023 4:38 PM EST DIFFERENTIAL, TECHNOLOGIST REVIEW Routine 08/29/2023 4:38 PM EST TSH Add-on 08/29/2023 4:38 PM EST MAGNESIUM STAT 08/29/2023 4:38 PM EST HC ECG TRACING ONLY STAT 08/29/2023 4 :09 PM EST documented in this encounter Results * DIFFERENTIAL, TECHNOLOGIST REVIEW (09/01/2023 5:39 AM EST) Neutrophils % 69.0 40.0 - 75.0 % 09/01/2023 6:33 AM EST LAB[facility]ATORY [facility] Lymphocytes % 18.0 18.0 - 42.0 % 09/01/2023 6:33 AM EST [facility] Monocytes % 10.0 1.0 - 11.0 % 09/01/2023 6:33 AM EST [facility] Eosinophils % 3.0 0.0 - 6.0 % 09/01/2023 6:33 AM EST [facility] Basophils % 0.0 0.0 - 2.0 % 09/01/2023 6:33 AM EST [facility] Absolute Neutrophils 4.32 1.80 - 7.70 K/uL 09/01/2023 6:33 AM EST [facility] Absolute Lymphocytes 1.13 1.00 - 4.80 K/uL 09/01/2023 6:33 AM EST [facility] Absolute Monocytes 0.63 0.00 - 1.10 K/uL 09/01/2023 6:33 AM EST [facility] Absolute Eosinophils 0.19 0.00 - 0.70 K/uL 09/01/2023 6:33 AM EST [facility] Absolute Basophils 0.00 0.00 - 0.20 K/uL 09/01/2023 6:33 AM EST LAB[facility]ORY [facility] nRBCs 09/01/2023 6:33 AM EST [facility] Blood Venous blood specimen / Unknown Venipuncture / Unknown 09/01/2023 5:39 AM EST 09/01/2023 5:55 AM EST Sai Nelson MD LAB BLOOD O RDERABLES LABORATORY [id number] [place] [address] * DIFFERENTIAL, AUTOMATED (09/01/2023 5:39 AM EST) WBC 6.26 4.00 - 10.80 K/uL 09/01/2023 6:33 AM EST LAB[facility]ATORY [facility] Neutrophils % 68.2 40.0 - 75.0 % 09/01/2023 6:33 AM EST [facility] Lymphocytes % 18.2 18.0 - 42.0 % 09/01/2023 6:33 AM EST [facility] Monocytes % 9.9 1.0 - 11.0 % 09/01/2023 6:33 AM EST [facility] Eosinophils % 3.2 0.0 - 6.0 % 09/01/2023 6:33 AM EST [facility] Basophils % 0.5 0.0 - 2.0 % 09/01/2023 6:33 AM EST [facility] Absolute Neutrophils 4.27 1.80 - 7.70 K/uL 09/01/2023 6:33 AM EST [facility] Absolute Lymphocytes 1.14 1.00 - 4.80 K/ul 09/01/2023 6:33 AM EST [facility] Absolute Monocytes 0.62 0.00 - 1.10 K/uL 09/01/2023 6:33 AM EST [facility] Absolute Eosinophils 0.20 0.00 - 0.70 K/uL 09/01/2023 6:33 AM EST [facility] Absolute Basophils 0.03 0.00 - 0.20 K/uL 09/01/2023 6:33 AM EST [facility] Blood Venous blood specimen / Unknown Venipuncture / Unknown 09/01/2023 5:39 AM EST 09/01/2023 5:55 AM EST Sai Nelson MD LAB BLOOD O RDERABLES Performing Organization Address City/[facility]/ZIP Co de Phone Number LABORATORY [address] [address] * (ABNORMAL) CBC (09/01/2023 5:39 AM EST) Pathologist [facility] WBC 6.26 4.00 - 10.80 K/uL 09/01/2023 6:33 AM EST [facility] RBC 4.69 3.85 - 5.15 M/uL 09/01/2023 6:33 AM EST [facility] HGB 13.4 12.0 - 15.3 g/dL 09/01/2023 6:33 AM EST [facility] HCT 40.6 36.0 - 45.2 % 09/01/2023 6:33 AM EST [facility] MCV 86.6 81.5 - 97.5 fL 09/01/2023 6:33 AM EST [facility] MCH 28.6 27.0 - 34.0 pg 09/01/2023 6:33 AM EST [facility] MCHC 33.0 32.0 - 36.0 g/dL 09/01/2023 6:33 AM EST [facility] RDW 15.7 11.5 - 15.5 % 09/01/2023 6:33 AM EST [facility] PLT 129(L) 140 - 400 K/uL 09/01/2023 6:33 AM EST [facility] MPV 10.0 6.6 - 11.1 fL 09/01/2023 6:33 AM EST [facility] Blood Venous blood specimen / Unknown Venipuncture / Unknown 09/01/2023 5:39 AM EST 09/01/2023 5:55 AM EST Sai Nelson MD LAB BLOOD O RDERABLES LABORATORY [address] [address] * PHOSPHORUS (09/01/2023 5:39 AM EST) Pathologist [facility] Phosphorus 3.4 2.5 - 4.8 mg/dL 09/01/2023 6:14 AM EST [facility] Blood Venous blood specimen / Unknown Venipuncture / Unknown 09/01/2023 5:39 AM EST 09/01/2023 5:55 AM EST Sai Nelson MD LAB BLOOD O RDERABLES LABORATORY [address] [address] * MAGNESIUM (09/01/2023 5:39 AM EST) Pathologist [facility] Magnesium 1.8 1.5 - 2.6 mg/dL 09/01/2023 6:14 AM EST [facility] Blood Venous blood specimen / Unknown Venipuncture / Unknown 09/01/2023 5:39 AM EST 09/01/2023 5:55 AM EST Sai Nelson MD LAB BLOOD O RDERABLES LABORATORY [address] [address] * (ABNORMAL) BASIC METABOLIC PANEL (09/01/2023 5:39 AM EST) [facility] BUN 20 6 - 20 mg/dL 09/01/2023 6:14 AM EST [facility] Creatinine 1.0 0.5 - 1.0 mg/dL 09/01/2023 6:14 AM EST [facility] Estimated Glomerular Filtration Rate 55(L) >=60 mL/min 09/01/2023 6:14 AM EST [facility] Comment:eGFR is calculated b ased on the CKD-EPI 2020 equation Sodium 128(L) 135 - 146 mmol/L 09/01/2023 6:14 AM EST [facility] Potassium 4.0 3.5 - 5.1 mmol/L 09/01/2023 6:14 AM EST [facility] Chloride 90(L) 98 - 107 mmol/L 09/01/2023 6:14 AM EST LABORATORY [facility] CO2 27 22 - 32 mmol/L 09/01/2023 6:14 AM EST LABORATORY [facility] Anion Gap 11 7 - 15 mmol/L 09/01/2023 6:14 AM EST LAB[facility]ATORY [facility] Glucose 76 70 - 120 mg/dL 09/01/2023 6:14 AM EST LAB[facility]ATORY [facility] Calcium 8.7 8.4 - 10.2 mg/dL 09/01/2023 6:14 AM EST [facility] Blood Venous blood specimen / Unknown Venipuncture / Unknown 09/01/2023 5:39 AM EST 09/01/2023 5:55 AM EST Sai Nelson MD LAB BLOOD O RDERABLES Performing Organization Address [facility] de Phone Number LABORATORY [id number] [place] [address] * EKG (08/31/2023 9:13 AM EST) 08/31/2023 9:13 AM EST Narrative Procedure Note Richard Rosario, - 08/31/2023 9:13 AM EST REASON FOR STUDY: Heart palpitations CONCLUSIONS: Atrial fibrillation Left axis deviation Abnormal QRS-T angle, consider primary T wave abnormality When compared with ECG of 30-AUG-2023 08:32, No significant change was found Ventricular Rate: 73 Atrial Rate: 57 QRS Duration: 106 QT/QTc: 402/442 ms P-R-T Goodman: 0 : -34 : 96 degrees Enoc Rasmussen PA-C EKG Performing Organization Address [facility] Co de Phone Number [facility] * (ABNORMAL) DIFFERENTIAL, TECHNOLOGIST REVIEW (08/31/2023 6:02 AM EST) Neutrophils % 67.0 40.0 - 75.0 % 08/31/2023 6:45 AM EST [facility] Lymphocytes % 16.0(L) 18.0 - 42.0 % 08/31/2023 6:45 AM EST [facility] Monocytes % 13.0(H) 1.0 - 11.0 % 08/31/2023 6:45 AM EST [facility] Eosinophils % 4.0 0.0 - 6.0 % 08/31/2023 6:45 AM EST [facility] Basophils % 0.0 0.0 - 2.0 % 08/31/2023 6:45 AM EST [facility] Absolute Neutrophils 3.63 1.80 - 7.70 K/uL 08/31/2023 6:45 AM EST [facility] Absolute Lymphocytes 0.87(L) 1.00 - 4.80 K/uL 08/31/2023 6:45 AM EST [facility] Absolute Monocytes 0.70 0.00 - 1.10 K/uL 08/31/2023 6:45 AM EST [facility] Absolute Eosinophils 0.22 0.00 - 0.70 K/uL 08/31/2023 6:45 AM EST [facility] Absolute Basophils 0.00 0.00 - 0.20 K/uL 08/31/2023 6:45 AM EST [facility] nRBCs 08/31/2023 6:45 AM EST [facility] Blood Venous blood specimen / Unknown Venipuncture / Unknown 08/31/2023 6:02 AM EST 08/31/2023 6:33 AM EST Sai Nelson MD LAB BLOOD O RDERABLES Performing Organization Address City/State/[facility] Co de Phone Number LABORATORY [address] [phone] * (ABNORMAL) DIFFERENTIAL, AUTOMATED (08/31/2023 6:02 AM EST) WBC 5.42 4.00 - 10.80 K/uL 08/31/2023 6:45 AM EST [facility] Neutrophils % 64.9 40.0 - 75.0 % 08/31/2023 6:45 AM EST [facility] Lymphocytes % 16.2(L) 18.0 - 42.0 % 08/31/2023 6:45 AM EST [facility] Monocytes % 13.7(H) 1.0 - 11.0 % 08/31/2023 6:45 AM EST [facility] Eosinophils % 4.8 0.0 - 6.0 % 08/31/2023 6:45 AM EST [facility] Basophils % 0.4 0.0 - 2.0 % 08/31/2023 6:45 AM EST [facility] Absolute Neutrophils 3.52 1.80 - 7.70 K/uL 08/31/2023 6:45 AM EST [facility] Absolute Lymphocytes 0.88(L) 1.00 - 4.80 K/ul 08/31/2023 6:45 AM EST [facility] Absolute Monocytes 0.74 0.00 - 1.10 K/uL 08/31/2023 6:45 AM EST [facility] Absolute Eosinophils 0.26 0.00 - 0.70 K/uL 08/31/2023 6:45 AM EST [facility] Absolute Basophils 0.02 0.00 - 0.20 K/uL 08/31/2023 6:45 AM EST [facility] Blood Venous blood specimen / Unknown Venipuncture / Unknown 08/31/2023 6:02 AM EST 08/31/2023 6:33 AM EST Sai Nelson MD LAB BLOOD O RDERABLES Performing Organization Address [facility]/State/ZIP Co de Phone Number LABORATORY [address] [phone] * (ABNORMAL) CBC (08/31/2023 6:02 AM EST) WBC 5.42 4.00 - 10.80 K/uL 08/31/2023 6:45 AM EST [facility] RBC 4.67 3.85 - 5.15 M/uL 08/31/2023 6:45 AM EST [facility] HGB 13.4 12.0 - 15.3 g/dL 08/31/2023 6:45 AM EST [facility] HCT 40.4 36.0 - 45.2 % 08/31/2023 6:45 AM EST [facility] MCV 86.5 81.5 - 97.5 fL 08/31/2023 6:45 AM EST [facility] MCH 28.7 27.0 - 34.0 pg 08/31/2023 6:45 AM EST [facility] MCHC 33.2 32.0 - 36.0 g/dL 08/31/2023 6:45 AM EST [facility] RDW 15.7 11.5 - 15.5 % 08/31/2023 6:45 AM EST [facility] PLT 114(L) 140 - 400 K/uL 08/31/2023 6:45 AM EST [facility] MPV 10.0 6.6 - 11.1 fL 08/31/2023 6:45 AM EST [facility] Blood Venous blood specimen / Unknown Venipuncture / Unknown 08/31/2023 6:02 AM EST 08/31/2023 6:33 AM EST Sai Nelson MD LAB BLOOD O RDERABLES Performing Organization Address [facility]/ZIP Co de Phone Number LABORATORY [address] [phone] * PHOSPHORUS (08/31/2023 6:02 AM EST) Phosphorus 3.5 2.5 - 4.8 mg/dL 08/31/2023 6:53 AM EST [facility] Blood Venous blood specimen / Unknown Venipuncture / Unknown 08/31/2023 6:02 AM EST 08/31/2023 6:33 AM EST Sai Nelson MD LAB BLOOD O RDERABLES LABORATORY [address] [phone] * MAGNESIUM (08/31/2023 6:02 AM EST) Magnesium 1.7 1.5 - 2.6 mg/dL 08/31/2023 6:53 AM EST [facility] Blood Venous blood specimen / Unknown Venipuncture / Unknown 08/31/2023 6:02 AM EST 08/31/2023 6:33 AM EST Sai Nelson MD LAB BLOOD O RDERABLES Performing Organization Address City/[facility]/ZIP Co de Phone Number LABORATORY [address] [phone] * (ABNORMAL) BASIC METABOLIC PANEL (08/31/2023 6:02 AM EST) BUN 21(H) 6 - 20 mg/dL 08/31/2023 6:53 AM EST LABORATORY [facility] Creatinine 1.0 0.5 - 1.0 mg/dL 08/31/2023 6:53 AM EST [facility] Estimated Glomerular Filtration Rate 57(L) >=60 mL/min 08/31/2023 6:53 AM EST LABORATORY [facility] Comment:eGFR is calculated b ased on the CKD-EPI 2020 equation Sodium 126(L) 135 - 146 mmol/L 08/31/2023 6:53 AM EST [facility] Potassium 4.3 3.5 - 5.1 mmol/L 08/31/2023 6:53 AM EST [facility] Chloride 90(L) 98 - 107 mmol/L 08/31/2023 6:53 AM EST [facility] CO2 25 22 - 32 mmol/L 08/31/2023 6:53 AM EST [facility] Anion Gap 11 7 - 15 mmol/L 08/31/2023 6:53 AM EST [facility] Glucose 77 70 - 120 mg/dL 08/31/2023 6:53 AM EST LAB[facility] Calcium 8.9 8.4 - 10.2 mg/dL 08/31/2023 6:53 AM EST LAB[facility]ATORY [facility] Blood Venous blood specimen / Unknown Venipuncture / Unknown 08/31/2023 6:02 AM EST 08/31/2023 6:33 AM EST Sai Nelson MD LAB BLOOD O RDERABLES LABORATORY [address] [phone] * HEPARIN PLATELET FACTOR 4 ANTIBODY WITH REFLEX TO SEROTONIN RELEASE ASSAY (08/30/2023 10:26 AM EST) Pathologist [facility] Heparin Platelet Factor 4 Antibody 0.120 <0.400 OD 08/31/2023 1:[address] [facility] Blood Venous blood specimen / Unknown Venipuncture / Unknown 08/30/2023 10:26 AM EST 08/30/2023 10:51 AM EST Sai Nelson MD LAB BLOOD O RDERABLES Performing Organization Address [facility] Co de Phone Number LABORATORY [facility] [address] [place] [address] * EKG (08/30/2023 8:32 AM EST) 08/30/2023 8:32 AM EST Narrative Procedure Note De Castellon DO - 08/30/2023 8:32 AM EST REASON FOR STUDY: DAILY EKG CONCLUSIONS: Atrial fibrillation Left anterior fascicular block Nonspecific ST abnormality When compared with ECG of 29-AUG-2023 16:09, No significant change was found Ventricular Rate: 74 Atrial Rate: 82 QRS Duration: 106 QT/QTc: 404/448 ms P-R-T Goodman: 0 : -60 : 88 degrees Enoc Rasmussen PA-C EKG Performing Organization Address [facility] de Phone Number [facility] * MRSA SCREEN, PCR (08/30/2023 8:19 AM EST) Pathologist [facility] MRSA PCR Result Negative Negative 12:[address] [facility] Comment:No Methicillin resis tant Staphylococcus aureus detected by PCR (amplified probe). Upper Respiratory Swab of internal nose / Unknown Non-blood Collection / Unknown 08/30/2023 8:19 AM EST 08/30/2023 8:42 AM EST Enoc Rasmussen PA-C LAB MICRO - GENERAL ORDERABLES Performing Organization Address [facility] de Phone Number LABORATORY [facility] [address] [place] [address] * ECHO, COMPLETE (2D), TRANS-THORACIC (08/30/2023 8:05 AM EST) LEFT VENTRICULAR EJECTION FRACTION 60 % [facility] 08/30/2023 7:17 AM EST Enoc Rasmussen PA-C ECHOCARDIOLOGY [facility] * SCHISTOCYTES, TECHNOLOGIST REVIEW (08/30/2023 6:10 AM EST) Pathologist [facility] Schistocytes, Technologist Review None Seen None Seen 08/30/2023 7:16 AM EST [facility] Blood Venous blood specimen / Unknown Venipuncture / Unknown 08/30/2023 6:10 AM EST 08/30/2023 6:27 AM EST Enoc Rasmussen PA-C LAB BLOOD ORDERABLE S Performing Organization Address City/[facility]/ZIP Co de Phone Number LABORATORY [address] [phone] * (ABNORMAL) TROPONIN T, HIGH SENSITIVITY (08/30/2023 6:10 AM EST) Pathologist [facility] Troponin T, High Sensitivity 30(H) <=14 ng/L 08/30/2023 6:56 AM EST [facility] Blood Venous blood specimen / Unknown Venipuncture / Unknown 08/30/2023 6:10 AM EST 08/30/2023 6:27 AM EST Enoc Rasmussen PA-C LAB BLOOD ORDERABLE S Performing Organization Address City/[facility]/ZIP Co de Phone Number LABORATORY [address] [phone] * PHOSPHORUS (08/30/2023 6:10 AM EST) Phosphorus 4.1 2.5 - 4.8 mg/dL 08/30/2023 6:51 AM EST [facility] Blood Venous blood specimen / Unknown Venipuncture / Unknown 08/30/2023 6:10 AM EST 08/30/2023 6:27 AM EST Enoc Rasmussen PA-C LAB BLOOD ORDERABLE S Performing Organization Address City/[facility]/ZIP Co de Phone Number LABORATORY [address] [phone] * MAGNESIUM (08/30/2023 6:10 AM EST) Magnesium 1.8 1.5 - 2.6 mg/dL 08/30/2023 6:51 AM EST [facility] Blood Venous blood specimen / Unknown Venipuncture / Unknown 08/30/2023 6:10 AM EST 08/30/2023 6:27 AM EST Enoc Rasmussen PA-C LAB BLOOD ORDERABLE S Performing Organization Address [facility] Co de Phone Number LABORATORY [address] [phone] * (ABNORMAL) CBC (08/30/2023 6:10 AM EST) WBC 3.79(L) 4.00 - 10.80 K/uL 08/30/2023 6:39 AM EST [facility] RBC 4.53 3.85 - 5.15 M/uL 08/30/2023 6:39 AM EST [facility] HGB 13.0 12.0 - 15.3 g/dL 08/30/2023 6:39 AM EST [facility] HCT 39.3 36.0 - 45.2 % 08/30/2023 6:39 AM EST [facility] MCV 86.8 81.5 - 97.5 fL 08/30/2023 6:39 AM EST [facility] MCH 28.7 27.0 - 34.0 pg 08/30/2023 6:39 AM EST [facility] MCHC 33.1 32.0 - 36.0 g/dL 08/30/2023 6:39 AM EST [facility] RDW 15.7 11.5 - 15.5 % 08/30/2023 6:39 AM EST [facility] PLT 107(L) 140 - 400 K/uL 08/30/2023 6:39 AM EST [facility] MPV 10.6 6.6 - 11.1 fL 08/30/2023 6:39 AM EST [facility] Blood Venous blood specimen / Unknown Venipuncture / Unknown 08/30/2023 6:10 AM EST 08/30/2023 6:27 AM EST Enoc Rasmussen PA-C LAB BLOOD ORDERABLE S LABORATORY [id number] [place] [address] * (ABNORMAL) COMPREHENSIVE METABOLIC PANEL (08/30/2023 6:10 AM EST) BUN 21(H) 6 - 20 mg/dL 08/30/2023 6:51 AM EST [facility] Creatinine 0.9 0.5 - 1.0 mg/dL 08/30/2023 6:51 AM EST [facility] Estimated Glomerular Filtration Rate 61 >=60 mL/min 08/30/2023 6:51 AM EST [facility] Comment:eGFR is calculated b ased on the CKD-EPI 2020 equation Sodium 129(L) 135 - 146 mmol/L 08/30/2023 6:51 AM EST [facility] Potassium 4.7 3.5 - 5.1 mmol/L 08/30/2023 6:51 AM EST [facility] Chloride 92(L) 98 - 107 mmol/L 08/30/2023 6:51 AM EST [facility] CO2 25 22 - 32 mmol/L 08/30/2023 6:51 AM EST [facility] Anion Gap 12 7 - 15 mmol/L 08/30/2023 6:51 AM EST [facility] Glucose 83 70 - 120 mg/dL 08/30/2023 6:51 AM EST [facility] Albumin 2.4(L) 3.8 - 5.0 g/dL 08/30/2023 6:51 AM EST [facility] AST 42(H) 10 - 35 U/L 08/30/2023 6:51 AM EST [facility] Comment:Result may be falsel y elevated due to hemolysis. Alkaline Phosphatase 122 35 - 130 U/L 08/30/2023 6:51 AM EST [facility] Bilirubin, Total 1.0 <=1.2 mg/dL 08/30/2023 6:51 AM EST LABORATORY [facility] Calcium 8.9 8.4 - 10.2 mg/dL 08/30/2023 6:51 AM EST [facility] Protein 6.6 6.0 - 8.3 g/dL 08/30/2023 6:51 AM EST [facility] ALT 26 10 - 35 U/L 08/30/2023 6:51 AM EST [facility] Blood Venous blood specimen / Unknown Venipuncture / Unknown 08/30/2023 6:10 AM EST 08/30/2023 6:27 AM EST Enoc Rasmussen PA-C LAB BLOOD ORDERABLE S Performing Organization Address City/[facility]/ZIP Co de Phone Number LABORATORY [address] [phone] * FIBRINOGEN (08/29/2023 10:11 PM EST) Fibrinogen 413 178 - 467 mg/dL 08/30/2023 12:14 AM EST [facility] Blood Venous blood specimen / Unknown Venipuncture / Unknown 08/29/2023 10:11 PM EST 08/29/2023 10:24 PM EST Enoc Rasmussen PA-C LAB BLOOD ORDERABLE S Performing Organization Address City/[facility]/ZIP Co de Phone Number LABORATORY [address] [phone] * (ABNORMAL) D-DIMER (08/29/2023 10:11 PM EST) D-Dimer 1.54(H) <0.50 ug/mL FEU 08/30/2023 12:14 AM EST [facility] Blood Venous blood specimen / Unknown Venipuncture / Unknown 08/29/2023 10:11 PM EST 08/29/2023 10:24 PM EST Narrative [facility] - 08/30/2023 12:14 AM EST Rheumatoid factor at a level above [...] definitively correlate with clinical severity of disease. Enoc Rasmussen PA-C LAB BLOOD ORDERABLE S Performing Organization Address City/[facility]/ZIP Co de Phone Number LABORATORY [address] [phone] * CLINICIAN PERIPHERAL BLOOD SLIDE REQUEST (08/29/2023 10:11 PM EST) Clinician Slide Ready? Yes 08/29/2023 10:30 PM EST [facility] Blood Venous blood specimen / Unknown Venipuncture / Unknown 08/29/2023 10:11 PM EST 08/29/2023 10:24 PM EST Enoc Rasmussen PA-C LAB BLOOD ORDERABLE S Performing Organization Address [facility] Co de Phone Number LABORATORY [address] [phone] * (ABNORMAL) PT INR (08/29/2023 10:11 PM EST) Prothrombin Time 15.5(H) 11.6 - 15.2 seconds 08/29/2023 10:34 PM EST [facility] INR 1.2 0.8 - 1.2 08/29/2023 10:34 PM EST [facility] Blood Venous blood specimen / Unknown Venipuncture / Unknown 08/29/2023 10:11 PM EST 08/29/2023 10:24 PM EST Narrative LABORATORY [facility] - 08/29/2023 10:34 PM EST Warfarin Therapy INR: 2.0-3.0 conventional anticoagulation INR: 2.5-3.5 high intensity anticoagulation Enoc DA SILVAC LAB BLOOD ORDERABLE S Performing Organization Address [facility] Co de Phone Number LABORATORY [address] [phone] * (ABNORMAL) TROPONIN T, HIGH SENSITIVITY (08/29/2023 10:11 PM EST) [facility] Troponin T, High Sensitivity 32(H) <=14 ng/L 08/29/2023 10:56 PM EST [facility] Blood Venous blood specimen / Unknown Venipuncture / Unknown 08/29/2023 10:11 PM EST 08/29/2023 10:24 PM EST Enoc Rasmussen PA-C LAB BLOOD ORDERABLE S Performing Organization Address [facility] Co de Phone Number LABORATORY [address] [phone] * LACTATE,WHOLE BLOOD (08/29/2023 7:45 PM EST) [facility] Lactate, Whole Blood 1.9 0.4 - 2.0 mmol/L 08/29/2023 7:52 PM EST [facility] Blood Venous blood specimen / Unknown Venipuncture / Unknown 08/29/2023 7:45 PM EST 08/29/2023 7:49 PM EST Pietro John PA-C LAB BLOOD ORDERA BLES Performing Organization Address [facility] de Phone Number LABORATORY [address] [address] * CT CHEST W CONTRAST (08/29/2023 5:57 PM EST) Anatomical Region Laterality Modality Chest, Body, Cardio Computed Brian ography 08/29/2023 5:48 PM EST Impressions 08/29/2023 6:26 PM EST IMPRESSION: 1. Multifocal airspace opacities concerning for pneumonia superimposed on chronic fibrotic and emphysematous changes. 2. Enlarged mediastinal lymph nodes which are reactive. 3. 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 No dissection. 4. Normal heart size with coronary atherosclerosis and calcification of the mitral valve annulus. 5. Trace bilateral pleural effusions. THIS DOCUMENT HAS BEEN ELECTRONICALLY SIGNED BY CALIN CHANDLER MD Narrative 08/29/2023 6:26 PM EST PROCEDURE INFORMATION: Exam: CT Chest With Contrast; Diagnostic Exam date and time: 08/29/2023 5:48 PM Age: 87 years old Clinical indication: Cough; Additional info: Assess for pneumonia TECHNIQUE: Imaging protocol: Diagnostic computed tomography of the chest with contrast. 3D rendering (Not supervised by radiologist): MIP and/or 3D reconstructed images were created by the technologist. Radiation optimization: All CT scans at this facility use at least one of these dose optimization techniques: automated exposure control; mA and/or kV adjustment per patient size (includes targeted exams where dose is matched to clinical indication); or iterative reconstruction. Contrast material: OPTIRAY 320; Contrast volume: 100 ml; Contrast route: INTRAVENOUS (IV); COMPARISON: CTA CHEST NON-CORONARY 09/30/2021 7:32 AM FINDINGS: Lungs: Multifocal airspace opacities are seen superimposed on fibrotic and emphysematous changes. Stable 6 mm pleural base nodule along the posterosuperior right upper lobe on series 2, image 15. Pleural spaces: Trace bilateral pleural effusions. No pneumothorax. Heart: Normal heart size with coronary atherosclerosis and calcification of the mitral valve annulus. No pericardial effusion. Lymph nodes: Multiple enlarged mediastinal lymph low with the largest in the pretracheal region measures 3.2 cm in the short axis in the 2nd largest measuring 2.4 cm in the subcarinal region. Vasculature: Atherosclerosis of the thoracic aorta with aneurysm of the ascending segment stable in the interval measuring 4.5 cm. No dissection. Normal caliber of the descending thoracic aorta. Diaphragm: Small hiatal hernia. Gallbladder and bile ducts: Gallbladder is surgically absent. Bones/joints: Degenerative changes in the spine and bilateral glenohumeral joints. No acute fractures. Soft tissues: Unremarkable. Procedure Note Calin Chandler MD - 08/29/2023 PROCEDURE INFORMATION: Exam: CT Chest With Contrast; Diagnostic Exam date and time: 08/29/2023 5:48 PM Age: 87 years old Clinical indication: Cough; Additional info: Assess for pneumonia TECHNIQUE: Imaging protocol: Diagnostic computed tomography of the chest withcontrast. 3D rendering (Not supervised by radiologist): MIP and/or 3D reconstructed images were created by the technologist. Radiation optimization: All CT scans at this facility use at least one ofthese dose optimization techniques: automated exposure control; mA and/or kV adjustment per patient size (includes targeted exams where dose is matchedto clinical indication); or iterative reconstruction. Contrast material: OPTIRAY 320; Contrast volume: 100 ml; Contrast route: INTRAVENOUS (IV); COMPARISON: CTA CHEST NON-CORONARY 09/30/2021 7:32 AM FINDINGS: Lungs: Multifocal airspace opacities are seen superimposed on fibrotic and emphysematous changes. Stable 6 mm pleural base nodule along the posterosuperior right upper lobe on series 2, image 15. Pleural spaces: Trace bilateral pleural effusions. No pneumothorax. Heart: Normal heart size with coronary atherosclerosis and calcificationof the mitral valve annulus. No pericardial effusion. Lymph nodes: Multiple enlarged mediastinal lymph low with the largest inthe pretracheal region measures 3.2 cm in the short axis in the 2nd largest measuring 2.4 cm in the subcarinal region. Vasculature: Atherosclerosis of the thoracic aorta with aneurysm of the ascending segment stable in the interval measuring 4.5 cm. No dissection. Normal caliber of the descending thoracic aorta. Diaphragm: Small hiatal hernia. Gallbladder and bile ducts: Gallbladder is surgically absent. Bones/joints: Degenerative changes in the spine and bilateral glenohumeral joints. No acute fractures. Soft tissues: Unremarkable. IMPRESSION IMPRESSION: 1. Multifocal airspace opacities concerning for pneumonia superimposedon chronic fibrotic and emphysematous changes. 2. Enlarged mediastinal lymph nodes which are reactive. 3. 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 No dissection. 4. Normal heart size with coronary atherosclerosis and calcification ofthe mitral valve annulus. 5. Trace bilateral pleural effusions. THIS DOCUMENT HAS BEEN ELECTRONICALLY SIGNED BY CALIN CHANDLER MD Pietro John PA-C RAD CT * STREPTOCOCCUS PNEUMONIAE ANTIGENS, URINE (08/29/2023 5:34 PM EST) S. Pneumoniae Ag, Urine Not Detected Not Detected 08/31/2023 10:29 PM EST [employer] [place] Comment: Test Performed at: [employer] [place] [id number] [place] [address] Carlos Enrique Hernandez M.D., Ph.D.,Director of Laboratories Urine Non-blood Collection / Unknown 08/29/2023 5:34 PM EST 08/29/2023 5:38 PM EST Enoc Rasmussen PA-C LAB URINE ORDERABLE S [employer] [place] [address] [place] [address] * LEGIONELLA ANTIGEN, URINE (08/29/2023 5:34 PM EST) Legionella Antigen, Urine Negative Negative 08/31/2023 9:[address] [facility] Comment:Presumptive negative for L. pneumophila serogroup 1 antigens. A negative result does not rule out the possibility of Legionella infection due to other serogroups or species of Legionella. Urine Non-blood Collection / Unknown 08/29/2023 5:34 PM EST 08/29/2023 5:38 PM EST Enoc Rasmussen PA-C LAB URINE ORDERABLE S LABORATORY [facility] [address] [place] [address] * (ABNORMAL) URINALYSIS WITH MICROSCOPIC EXAM (08/29/2023 5:34 PM EST) Color, Urine Yellow Light Yellow, Yellow, Dark Yellow 08/29/2023 5:50 PM EST LABORATORY [facility] Clarity, Urine Clear Clear 08/29/2023 5:50 PM EST LABORATORY [facility] Glucose, Urine Negative Negative mg/dL 08/29/2023 5:50 PM EST LABORATORY [facility] Bilirubin, Urine Negative Negative 08/29/2023 5:50 PM EST LABORATORY [facility] Ketone, Urine Negative Negative mg/dL 08/29/2023 5:50 PM EST LABORATORY [facility] Specific [place], Urine 1.015 1.003 - 1.030 08/29/2023 5:50 PM EST LABORATORY [facility] Blood, Urine Trace(A) Negative 08/29/2023 5:50 PM EST LABORATORY [facility] pH, Urine 7.0 5.0 - 7.5 Units 08/29/2023 5:50 PM EST LABORATORY [facility] Protein, Urine Negative Negative mg/dL 08/29/2023 5:50 PM EST LABORATORY [facility] Urobilinogen, Urine 0.2 0.2, 1.0 mg/dL 08/29/2023 5:50 PM EST LABORATORY [facility] Nitrite, Urine Negative Negative 08/29/2023 5:50 PM EST LABORATORY [facility] Esterase, Urine Negative Negative 08/29/2023 5:50 PM EST LABORATORY [facility] RBC, Urine 0-2 0 - 2 /HPF 08/29/2023 5:50 PM EST LABORATORY [facility] WBC, Urine 0-2 0 - 2 /HPF 08/29/2023 5:50 PM EST LABORATORY [facility] Bacteria, Urine 26-50(A) 0 - 25 /HPF 08/29/2023 5:50 PM EST LABORATORY [facility] Squamous Epithelial Cells, Urine Many(A) None /HPF 08/29/2023 5:50 PM EST LABORATORY [facility] Urine Non-blood Collection / Unknown 08/29/2023 5:34 PM EST 08/29/2023 5:38 PM EST Pietro John PA-C LAB URINE ORDERA BLES [facility] [address] [place] [address] * XR CHEST 1 VIEW (08/29/2023 4:48 PM EST) Anatomical Region Laterality Modality Chest Computed Radiogr aphy 08/29/2023 4:42 PM EST Impressions 08/29/2023 5:03 PM EST IMPRESSION: Bilateral ground-glass regions of opacification. Findings nonspecific and may reflect interstitial lung disease. An acute inflammatory process could not be entirely excluded. THIS DOCUMENT HAS BEEN ELECTRONICALLY SIGNED BY DEANA JOHNSON MD Narrative 08/29/2023 5:03 PM EST PROCEDURE INFORMATION: Exam: XR Chest Exam date and time: 08/29/2023 4:42 PM Age: 87 years old Clinical indication: Cough; Additional info: Cxr TECHNIQUE: Imaging protocol: Radiologic exam of the chest. Views: 1 view. COMPARISON: DX XR CHEST 1 VIEW 08/19/2023 1:23 PM FINDINGS: Lungs: Bilateral ground-glass regions of opacification. Findings nonspecific and may reflect interstitial lung disease. An acute inflammatory process could not be entirely excluded. Pleural spaces: Unremarkable. No pleural effusion. No pneumothorax. Heart/Mediastinum: Unremarkable. No cardiomegaly. Bones/joints: Unremarkable. Other findings: Findings minimally changed. Procedure Note Deana Johnson MD - 08/29/2023 PROCEDURE INFORMATION: Exam: XR Chest Exam date and time: 08/29/2023 4:42 PM Age: 87 years old Clinical indication: Cough; Additional info: Cxr TECHNIQUE: Imaging protocol: Radiologic exam of the chest. Views: 1 view. COMPARISON: DX XR CHEST 1 VIEW 08/19/2023 1:23 PM FINDINGS: Lungs: Bilateral ground-glass regions of opacification. Findingsnonspecific and may reflect interstitial lung disease. An acute inflammatory processcould not be entirely excluded. Pleural spaces: Unremarkable. No pleural effusion. No pneumothorax. Heart/Mediastinum: Unremarkable. No cardiomegaly. Bones/joints: Unremarkable. Other findings: Findings minimally changed. IMPRESSION IMPRESSION: Bilateral ground-glass regions of opacification. Findings nonspecific andmay reflect interstitial lung disease. An acute inflammatory process could notbe entirely excluded. THIS DOCUMENT HAS BEEN ELECTRONICALLY SIGNED BY DEANA JOHNSON MD Pietro John PA-C RADIOLOGY (RAD G ENERAL) * PHOSPHORUS (08/29/2023 4:38 PM EST) Phosphorus 4.2 2.5 - 4.8 mg/dL 08/29/2023 8:16 PM EST [facility] Blood Venous blood specimen / Unknown Venipuncture / Unknown 08/29/2023 4:38 PM EST 08/29/2023 4:44 PM EST Enoc Rasmussen PA-C LAB BLOOD ORDERABLE S LABORATORY [address] [address] * (ABNORMAL) DIFFERENTIAL, TECHNOLOGIST REVIEW (08/29/2023 4:38 PM EST) WBC 4.00 4.00 - 10.80 K/uL 08/29/2023 5:19 PM EST LABORATORY [facility] Neutrophils % 62.0 40.0 - 75.0 % 08/29/2023 5:19 PM EST LABORATORY [facility] Lymphocytes % 20.0 18.0 - 42.0 % 08/29/2023 5:19 PM EST LABORATORY [facility] Monocytes % 8.0 1.0 - 11.0 % 08/29/2023 5:19 PM EST LABORATORY [facility] Eosinophils % 9.0(H) 0.0 - 6.0 % 08/29/2023 5:19 PM EST LABORATORY [facility] Basophils % 1.0 0.0 - 2.0 % 08/29/2023 5:19 PM EST LABORATORY [facility] Absolute Neutrophils 2.48 1.80 - 7.70 K/uL 08/29/2023 5:19 PM EST LABORATORY [facility] Absolute Lymphocytes 0.80(L) 1.00 - 4.80 K/uL 08/29/2023 5:19 PM EST LABORATORY [facility] Absolute Monocytes 0.32 0.00 - 1.10 K/uL 08/29/2023 5:19 PM EST LABORATORY [facility] Absolute Eosinophils 0.36 0.00 - 0.70 K/uL 08/29/2023 5:19 PM EST LABORATORY [facility] Absolute Basophils 0.04 0.00 - 0.20 K/uL 08/29/2023 5:19 PM EST LABORATORY [facility] nRBCs 08/29/2023 5:19 PM EST LABORATORY [facility] Reactive Lymphocytes Present(A ) None Seen 08/29/2023 5:19 PM EST [facility] Blood Venous blood specimen / Unknown Venipuncture / Unknown 08/29/2023 4:38 PM EST 08/29/2023 4:44 PM EST Pietro John PA-C LAB BLOOD ORDERA BLES LABORATORY [place] [id number] [place] [address] * TSH (08/29/2023 4:38 PM EST) TSH 4.13 0.27 - 4.20 uIU/mL 08/29/2023 5:20 PM EST LABORATORY [facility] Blood Venous blood specimen / Unknown Venipuncture / Unknown 08/29/2023 4:38 PM EST 08/29/2023 4:44 PM EST Pietro John PA-C LAB BLOOD ORDERA BLES LABORATORY [place] [id number] [place] [address] * (ABNORMAL) RESPIRATORY PATHOGEN PANEL, PCR (08/29/2023 4:38 PM EST) Pathologist [facility] Adenovirus by PCR Negative Negative 024 5:56 PM EST [facility] Coronavirus 229E by PCR Negative Negative 08/29/2023 5:56 PM EST [facility] Coronavirus HKU1 by PCR Negative Negative 08/29/2023 5:56 PM EST [facility] Coronavirus NL63 by PCR Negative Negative 08/29/2023 5:56 PM EST [facility] Coronavirus OC43 by PCR Negative Negative 08/29/2023 5:56 PM EST [facility] Coronavirus SARS-CoV-2 by PCR Negative Negative 08/29/2023 5:56 PM EST [facility] Human Metapneumovirus by PCR Negative Negative 08/29/2023 5:56 PM EST [facility] Rhinovirus/Enterov irus by PCR Negative Negative 08/29/2023 5:56 PM EST [facility] Influenza A Virus, Subtype H1 2009 by PCR Positive(A) Negative 08/29/2023 5:56 PM EST [facility] Comment: Influenza A virus Subtype H1 2009 detected by PCR (amplified probe). Test results reported to [facility]. Influenza B Virus by PCR Negative Negative 08/29/2023 5:56 PM EST [facility] Parainfluenza Virus 1 by PCR Negative Negative 08/29/2023 5:56 PM EST [facility] Parainfluenza Virus 2 by PCR Negative Negative 08/29/2023 5:56 PM EST [facility] Parainfluenza Virus 3 by PCR Negative Negative 08/29/2023 5:56 PM EST [facility] Parainfluenza Virus 4 by PCR Negative Negative 08/29/2023 5:56 PM EST [facility] Respiratory Syncytial Virus by PCR Negative Negative 08/29/2023 5:56 PM EST [facility] Bordetella pertussis by PCR Negative Negative 08/29/2023 5:56 PM EST [facility] Chlamydia pneumoniae by PCR Negative Negative 08/29/2023 5:56 PM EST [facility] Mycoplasma pneumoniae by PCR Negative Negative 08/29/2023 5:56 PM EST [facility] Bordetella parapertussis by PCR Negative Negative 08/29/2023 5:56 PM EST [facility] Comment: The primers that detect Rhinovirus may cross react with some Enterorviruses. The validation of bronchial specimens, tracheal aspirates, and throats for this assay was developed and performance characteristics determined by [employer]. The validation of alternate specimen types has not been cleared or approved by the U.S. Food and Drug Administration (FDA). It has been determined that such clearance or approval is not necessary. Upper Respiratory Mid-turbinate nasal swab / Unknown Non-blood Collection / Unknown 08/29/2023 4:38 PM EST 08/29/2023 4:44 PM EST Pietro John PA-C LAB MICRO - GENE RAL ORDERABLES LABORATORY [address] [address] * (ABNORMAL) BLOOD GAS, VENOUS (08/29/2023 4:38 PM EST) Temperature 37.0 C 08/29/2023 4:51 PM EST [facility] pH, Venous 7.443(H) 7.320 - 7.430 units 08/29/2023 4:51 PM EST LABORATORY [facility] pCO2, Venous 39.9(L) 40.0 - 60.0 mmHg 08/29/2023 4:51 PM EST LABORATORY [facility] pO2, Venous 48.8 25.0 - 50.0 mmHg 08/29/2023 4:51 PM EST [facility] Base Excess, Venous 3.0(H) -2.0 - 2.0 mmol/L 08/29/2023 4:51 PM EST LABORATORY [facility] Hemoglobin, Whole Blood 14.2 12.0 - 15.3 g/dL 08/29/2023 4:51 PM EST [facility] Oxyhemoglobin, Venous 81.9 40.0 - 85.0 % total Hgb 08/29/2023 4:51 PM EST [facility] Carboxyhemoglobi n, Whole Blood 1.5 <=1.5 % total Hgb 08/29/2023 4:51 PM EST [facility] Comment:Smokers: 0-9.0 % Methemoglobin, Whole Blood 0.6 <=1.5 % total Hgb 08/29/2023 4:51 PM EST [facility] Reduced Hemoglobin, Venous 16.0 % total Hgb 08/29/2023 4:51 PM EST [facility] O2 Content, Venous 16.4 7.0 - 18.0 %vol 08/29/2023 4:51 PM EST [facility] Bicarbonate, Whole Blood 27.3 23.0 - 31.0 mmol/L 08/29/2023 4:51 PM EST [facility] Blood Venous blood specimen / Unknown Venipuncture / Unknown 08/29/2023 4:38 PM EST 08/29/2023 4:44 PM EST Pietro ENDYMION PA-C LAB BLOOD ORDERA BLES Performing Organization Address City/[facility]/ZIP Co de Phone Number LABORATORY [address] [address] * DIFFERENTIAL, AUTOMATED (08/29/2023 4:38 PM EST) Blood Venous blood specimen / Unknown Venipuncture / Unknown 08/29/2023 4:38 PM EST 08/29/2023 4:44 PM EST Object[employer]der PA-C LAB BLOOD ORDERA BLES Performing Organization Address [facility]/ZIP Co de Phone Number LABORATORY [address] [address] * (ABNORMAL) CBC (08/29/2023 4:38 PM EST) WBC 4.00 4.00 - 10.80 K/uL 08/29/2023 5:19 PM EST [facility] RBC 4.73 3.85 - 5.15 M/uL 08/29/2023 5:19 PM EST [facility] HGB 13.5 12.0 - 15.3 g/dL 08/29/2023 5:19 PM EST LABORATORY SH HCT 41.3 36.0 - 45.2 % 08/29/2023 5:19 PM EST [facility] MCV 87.3 81.5 - 97.5 fL 08/29/2023 5:19 PM EST [facility] MCH 28.5 27.0 - 34.0 pg 08/29/2023 5:19 PM EST [facility] MCHC 32.7 32.0 - 36.0 g/dL 08/29/2023 5:19 PM EST [facility] RDW 15.9 11.5 - 15.5 % 08/29/2023 5:19 PM EST [facility] PLT 117(L) 140 - 400 K/uL 08/29/2023 5:19 PM EST [facility] MPV 10.3 6.6 - 11.1 fL 08/29/2023 5:19 PM EST [facility] Blood Venous blood specimen / Unknown Venipuncture / Unknown 08/29/2023 4:38 PM EST 08/29/2023 4:44 PM EST Pietro ROJAS-C LAB BLOOD ORDERA BLES LABORATORY [address] [address] * MAGNESIUM (08/29/2023 4:38 PM EST) Magnesium 2.1 1.5 - 2.6 mg/dL 08/29/2023 5:20 PM EST [facility] Blood Venous blood specimen / Unknown Venipuncture / Unknown 08/29/2023 4:38 PM EST 08/29/2023 4:44 PM EST Pietro John PA-C LAB BLOOD ORDERA BLES LABORATORY [address] [address] * (ABNORMAL) LACTATE, WHOLE BLOOD WITH REFLEX IF ABNORMAL (08/29/2023 4:38 PM EST) Pathologist [facility] Lactate, Whole Blood 2.1(H) 0.4 - 2.0 mmol/L 08/29/2023 4:51 PM EST [facility] Blood Venous blood specimen / Unknown Venipuncture / Unknown 08/29/2023 4:38 PM EST 08/29/2023 4:44 PM EST Pietro ROJAS-C LAB BLOOD ORDERA BLES Performing Organization Address [facility] Co de Phone Number LABORATORY [address] [address] * (ABNORMAL) BNP, NT-PRO (08/29/2023 4:38 PM EST) Pathologist [facility] BNP, NT-Pro 20,871(H) <300 pg/mL 08/29/2023 5:20 PM EST [facility] Blood Venous blood specimen / Unknown Venipuncture / Unknown 08/29/2023 4:38 PM EST 08/29/2023 4:44 PM EST Narrative [facility] - 08/29/2023 5:20 PM EST Exclude Heart Failure: <300 pg/mL Diagnose Heart Failure: Age <50 yr: >450 pg/mL 50-75 yr: >900 pg/mL >75 yr: >1800 pg/mL GFR is 30-59 mL/min: >1200 pg/mL or Age-adjusted values GFR <30 mL/min: do not use, not reliable Prognostic threshold: 1000 pg/mL Pietro ROJAS-C LAB BLOOD ORDERA BLES Performing Organization Address [facility] Co de Phone Number LABORATORY [address] [phone] * (ABNORMAL) TROPONIN T, HIGH SENSITIVITY (08/29/2023 4:38 PM EST) Pathologist [facility] Troponin T, High Sensitivity 31(H) <=14 ng/L 08/29/2023 5:20 PM EST [facility] Comment:Result may be falsel y decreased due to hemolysis. Blood Venous blood specimen / Unknown Venipuncture / Unknown 08/29/2023 4:38 PM EST 08/29/2023 4:43 PM EST Pietro John PA-C LAB BLOOD ORDERA BLES LABORATORY [place] [id number] [place] [address] * (ABNORMAL) COMPREHENSIVE METABOLIC PANEL (08/29/2023 4:38 PM EST) BUN 22(H) 6 - 20 mg/dL 08/29/2023 5:22 PM EST [facility] Creatinine 0.8 0.5 - 1.0 mg/dL 08/29/2023 5:22 PM EST [facility] Estimated Glomerular Filtration Rate 69 >=60 mL/min 08/29/2023 5:22 PM EST [facility] Comment:eGFR is calculated b ased on the CKD-EPI 2020 equation Sodium 129(L) 135 - 146 mmol/L 08/29/2023 5:22 PM EST [facility] Potassium 08/29/2023 5:22 PM EST [facility] Comment:Specimen too hemolyz ed. Reorder if necessary. Chloride 94(L) 98 - 107 mmol/L 08/29/2023 5:22 PM EST [facility] CO2 24 22 - 32 mmol/L 08/29/2023 5:22 PM EST [facility] Anion Gap 11 7 - 15 mmol/L 08/29/2023 5:22 PM EST [facility] Glucose 112 70 - 120 mg/dL 08/29/2023 5:22 PM EST [facility] Albumin 2.5(L) 3.8 - 5.0 g/dL 08/29/2023 5:22 PM EST [facility] AST 08/29/2023 5:22 PM EST [facility] Comment:Specimen too hemolyz ed. Reorder if necessary. Alkaline Phosphatase 137(H) 35 - 130 U/L 08/29/2023 5:22 PM EST [facility] Comment:Result may be falsel y elevated due to hemolysis. Bilirubin, Total 0.8 <=1.2 mg/dL 08/29/2023 5:22 PM EST [facility] Calcium 9.2 8.4 - 10.2 mg/dL 08/29/2023 5:22 PM EST [facility] Protein 7.1 6.0 - 8.3 g/dL 08/29/2023 5:22 PM EST [facility] ALT 32 10 - 35 U/L 08/29/2023 5:22 PM EST [facility] Comment:Result may be falsel y elevated due to hemolysis. Blood Venous blood specimen / Unknown Venipuncture / Unknown 08/29/2023 4:38 PM EST 08/29/2023 4:44 PM EST Pietro John PA-C LAB BLOOD ORDERA BLES Performing Organization Address City/[facility] Co de Phone Number LABORATORY [place] [id number] [place] [address] * EKG (08/29/2023 4:09 PM EST) 08/29/2023 4:09 PM EST Narrative Procedure Note Rakesh Meek MD - 08/29/2023 4:09 PM EST REASON FOR STUDY: SOB CONCLUSIONS: Poor baseline Atrial fibrillation Left anterior fascicular block Cannot rule out Lateral infarct , age undetermined Nonspecific ST and T wave abnormality Abnormal ECG When compared with ECG of 19-AUG-2023 12:49, Atrial fibrillation has replaced Sinus rhythm Ventricular Rate: 67 Atrial Rate: 33 QRS Duration: 94 QT/QTc: 400/422 ms P-R-T Goodman: 0 : -56 : 73 degrees Pietro John PA-C EKG Performing Organization Address City/[facility] Co de Phone Number [facility] documented in this encounter Visit Diagnoses Diagnosis Acute decompensated heart failure (HCC)- Primary Acute decompensated heart failure (HCC) New onset a-fib (HCC) Atrial fibrillation Heart failure (HCC) Heart failure, unspecified Chest pain Chest pain, unspecified Heart palpitations Palpitations Other ill-defined heart diseases Influenza A Influenza with other respiratory manifestations CAP (community acquired pneumonia) Pneumonia, organism unspecified Pulmonary HTN (HCC) Other chronic pulmonary heart diseases Elevated troponin Other abnormal blood chemistry Acute hyponatremia Hyposmolality and/or hyponatremia Generalized weakness Other malaise and fatigue Thrombocytopenia (HCC) Thrombocytopenia, unspecified 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 Essential hypertension with goal blood pressure less than 140/90 Hypertrophic cardiomyopathy (HCC) Other hypertrophic cardiomyopathy New onset atrial fibrillation (HCC) Atrial fibrillation Petechial rash Spontaneous ecchymoses Oral thrush Candidiasis of mouth Positive D dimer Abnormal coagulation profile Acute on chronic heart failure with preserved ejection fraction (HFpEF) (HCC) Atrial fibrillation (HCC) Atrial fibrillation Chronic hyponatremia Hyposmolality and/or hyponatremia documented in this encounter Administered Medications Inactive Administered Medications - up to 3 most recent administrations Medication Order MAR Action Action Date Dose Rate Site Acetaminophen (Tylenol) tab 650 mg 650 mg, Oral, Q6H PRN Pain, Mild, Fever >38C(100.5F), Headache, Starting on Mon08/29/23 at 2009, Until Mon09/01/23 at 184, Maximum of 4 grams (4000 mg) per day. Albuterol Sulfate (Proventil) (2.5 MG/3ML) 0.083% inhalation solution 2.5 mg 2.5 mg, Nebulizer, Q4H PRN Dyspnea, Starting on Mon08/29/23 at 2036, Until Mon09/01/23 at 184 albuterol-ipratropium (Duoneb) inhalation solution 3 mL 3 mL, Nebulizer, ONCE, On Mon08/29/23 at 1700, For 1 dose, 3 mL = 0.5 mg ipratropium/ 2.5 mg albuterol Given 08/29/2023 4:39 PM EST 3 mL albuterol-ipratropium (Duoneb) inhalation solution 3 mL 3 mL, Nebulizer, ONCE, On Mon08/29/23 at 1830, For 1 dose, 3 mL = 0.5 mg ipratropium/ 2.5 mg albuterol Given 08/29/2023 6:28 PM EST 3 mL albuterol-ipratropium (Duoneb) inhalation solution 3 mL 3 mL, Nebulizer, BID (799,1999), First dose on Mon08/29/23 at 211, Until Discontinued, 3 mL = 0.5 mg ipratropium/ 2.5 mg albuterol Given 09/01/2023 7:27 AM EST 3 mL Given 08/31/2023 7:05 PM EST 3 mL Given 08/31/2023 7:24 AM EST 3 mL Apixaban (Eliquis) tab 2.5 mg 2.5 mg, Oral, BID (.AM/PM), First dose on Mon08/30/23 at 0900, Until Discontinued Given 09/01/2023 8:29 AM EST 2.5 mg Given 08/31/2023 9:01 PM EST 2.5 mg Given 08/31/2023 8:43 AM EST 2.5 mg aspirin enteric coated tab 81 mg 81 mg, Oral, Daily(AM), First dose on Mon08/30/23 at 0900, Until Discontinued Given 09/01/2023 8:29 AM EST 81 mg Given 08/31/2023 8:43 AM EST 81 mg Given 08/30/2023 9:11 AM EST 81 mg atorvaSTATin (Lipitor) tab 20 mg 20 mg, Oral, HS, First dose on Mon08/29/23 at 2200, Until Discontinued Given 08/31/2023 9:01 PM EST 20 mg Given 08/30/2023 9:01 PM EST 20 mg Given 08/29/2023 9:47 PM EST 20 mg Benzonatate (Tessalon Perles) cap 200 mg 200 mg, Oral, TID PRN Cough, Starting on Mon08/29/23 at 2104, Until Mon09/01/23 at 1841, This med should NOT be Crushed or Chewed Given 08/31/2023 10:45 AM EST 20 0 mg Given 08/30/2023 9:01 PM EST 200 mg Given 08/29/2023 9:47 PM EST 200 mg calcium CARBonate (Tums E-X) tab CHEW 750 mg 750 mg, Oral, DAILY NOON, First dose on Mon08/30/23 at 1200, Until Discontinued Given 09/01/2023 12:41 PM EST 750 mg Given 08/31/2023 11:59 AM EST 750 mg Given 08/30/2023 12:21 PM EST 750 mg cholecalciferol (VIT D3) (Vitamin D3) tab 2,000 Units 2,000 Units, Oral, DAILY NOON, First dose on Mon08/30/23 at 1200, Until Discontinued, NOTE: 1000 units = 25 mcg Given 09/01/2023 12:40 PM EST 2,000 Units Given 08/31/2023 11:59 AM EST 2,000 Units Given 08/30/2023 12:21 PM EST 2,000 Units CYANOCOBALAMIN (vitamin B-12) tab 1,000 mcg 1,000 mcg, Oral, Daily(AM), First dose on Mon08/30/23 at 0900, Until Discontinued Given 09/01/2023 8:28 AM EST 1,00 0 mcg Given 08/31/2023 8:44 AM EST 1,000 mcg Given 08/30/2023 9:11 AM EST 1,000 mcg dorzolamide-timolol (Cosopt Ocumeter Plus) ophthalmic solution 1 Drop 1 Drop, Both eyes, BID (.AM/PM), First dose on Mon08/29/23 at 2145, Until Discontinued Given 09/01/2023 8:30 AM EST 1 Drop Given 08/31/2023 9:01 PM EST 1 Drop Given 08/31/2023 8:49 AM EST 1 Drop fluticasone furoate-vilanterol (BREO ellipta) 100-25 MCG/ACT inhaler 1 Puff 1 Puff, Inhalation, RESPDAILY, First dose on Mon08/30/23 at 0800, Until Discontinued Given 09/01/2023 7:27 AM EST 1 Pu ff Given 08/31/2023 7:24 AM EST 1 Puff Given 08/30/2023 9:18 AM EST 1 Puff Furosemide (Lasix) inj 40 mg 40 mg, IV Push, BID (0900, 1600), First dose on Mon08/30/23 at 0900, Until Discontinued Given 08/30/2023 9:01 AM EST 4 0 mg Furosemide (Lasix) inj 60 mg 60 mg, IV Push, ONCE, On Mon08/29/23 at 1815, For 1 dose Given 08/29/2023 6:28 PM EST 60 mg Furosemide (Lasix) tab 40 mg 40 mg, Oral, BID (0900, 1600), First dose (after last modification) on Priti 08/31/23 at 0900, Until Discontinued Given 09/01/2023 8:29 AM EST 40 mg Given 08/31/2023 4:56 PM EST 40 mg Given 08/31/2023 8:43 AM EST 40 mg guaiFENesin-dm (Robitussin DM) oral syrup 10 mL 10 mL, Oral, Q4H PRN Cough, Starting on Mon08/29/23 at 2009, Until Mon09/01/23 at 1841 Given 08/31/2023 10:45 AM EST 1 0 mL Given 08/31/2023 12:28 AM EST 10 mL Given 08/30/2023 2:40 AM EST 10 mL house antacid (Mi-Acid II) oral susp 15 mL 15 mL, Oral, Q4H PRN Indigestion, Starting on Mon08/29/23 at 2009, Until Mon09/01/23 at 1841, SHAKE WELL Ioversol (Optiray 320) inj 125 mL 125 mL, Intra-Arterial, ONCE, On Mon08/29/23 at 1830, For 1 dose, Radiology Medication Routing (Non-IR) Given 08/29/2023 5:58 PM EST 100 mL Latanoprost (Xalatan) 0.005 % ophthalmic solution 1 Drop 1 Drop, Both eyes, HS, First dose on Mon08/29/23 at 2200, Until Discontinued Given 08/31/2023 9:44 PM EST 1 Drop Given 08/30/2023 9:01 PM EST 1 Drop Given 08/29/2023 9:51 PM EST 1 Drop levoFLOXacin (Levaquin) tab 750 mg 750 mg, Oral, Q48H, First dose on Mon09/01/23 at 0900, Last dose on Mon09/03/23 at 0900, For 2 doses, Hold antacids and iron for 3-4 hours before and after administration Given 09/01/2023 8:29 AM EST 750 mg levoFLOXacin in D5W (Levaquin) ivpb 750 mg IV Piggyback, 750 mg, Q24H, First dose on Mon08/29/23 at 2315, Until Discontinued, Administer over 90 Minutes New Bag 08/30/2023 10:45 PM EST 750 mg 100 mL/hr Restarted 08/29/2023 11:19 PM EST 500 mg/hr 100 mL/hr Rate Verify 08/29/2023 11:14 PM EST 500 mg/hr 100 mL/hr melatonin tab 3 mg 3 mg, Oral, HS PRN Insomnia, Starting on Mon08/29/23 at 2010, Until Mon09/01/23 at 1841 methIMAzole (Tapazole) tab 2.5 mg 2.5 mg, Oral, Daily(AM), First dose on Mon08/30/23 at 0900, Until Discontinued, Six times per week. Does not take on Monday. Given 09/01/2023 8:29 AM EST 2.5 mg Given 08/31/2023 8:43 AM EST 2.5 mg Given 08/30/2023 9:10 AM EST 2.5 mg midodrine (Proamatine) tab 5 mg 5 mg, Oral, TID 06;12;18, First dose on Mon08/30/23 at 0600, Until Discontinued Given 09/01/2023 12:40 PM EST 5 mg Given 09/01/2023 5:49 AM EST 5 mg Given 08/31/2023 4:56 PM EST 5 mg nystatin oral susp 500,000 Units 500,000 Units, Swish & Swallow, QID(AM/NOON/PM/HS), First dose on Mon08/29/23 at 2315, Until Discontinued, Shake well ! , Indications: Oral Candidiasis Given 09/01/2023 12:45 PM EST 500,000 Units Given 09/01/2023 5:48 AM EST 500,000 Units Given 08/31/2023 9:03 PM EST 500,000 Units oseltamivir (Tamiflu) cap 30 mg 30 mg, Oral, BID (.AM/PM), First dose on Mon08/29/23 at 2100, Last dose on Mon09/03/23 at 0900, For 5 days Given 09/01/2023 8:29 AM EST 30 mg Given 08/31/2023 9:02 PM EST 30 mg Given 08/31/2023 8:43 AM EST 30 mg oxygen GAS Inhalation, OXYGEN, First dose on Mon08/30/23 at 0000, Until Discontinued, Device/Managed by: Non-titratable Order (Provider), Device for Continuous Oxygen: Nasal cannula, Flow Rate (LPM): 2, Goal SPO2 (%): 91-95, 2L cont Oxygen On 09/01/2023 8:00 AM EST Oxygen On 09/01/2023 12:00 AM EST 2 L/min(Oxygen) Oxygen On 08/31/2023 4:00 PM EST perflutren lipid microsphere inj SUSP 1.956 mg 1.956 mg, Intravenous, ONCE PRN Other, For Echo Only - Suboptimal Echo Images, Starting on Mon08/30/23 at 0755, Until Mon08/30/23 at 0954, For 2 hours, Administer IVP over 45 seconds, Cardiac Studies_HODHOV Given 08/30/2023 7:56 AM EST 1.956 mg potassium chloride ER tab 20 mEq 20 mEq, Oral, Daily(AM), First dose on Mon08/30/23 at 0900, Until Discontinued Given 09/01/2023 8:29 AM EST 20 mEq Given 08/31/2023 8:44 AM EST 20 mEq Given 08/30/2023 9:11 AM EST 20 mEq sodium chloride 0.9 % flush peripheral geovanna 3 mL 3 mL, IV Push, QSHIFT, First dose on Mon08/30/23 at 0000, Until Discontinued, Do not flush if lock, PICC, or central line not in place; IV infusing or unable to flush. Given 09/01/2023 8:29 AM EST 3 mL Given 09/01/2023 12:08 AM EST 3 mL Given 08/31/2023 4:00 PM EST 3 mL sodium chloride 0.9 % flush/inj 3 mL 3 mL, IV Push, PRN Other, Line Patency, Starting on Mon08/29/23 at 2007, Until Mon09/01/23 at 1841, Do not flush if lock, PICC, or central line not in place, IV infusing or unable to flush Given 08/31/2023 12:32 AM EST 3 mL Torsemide (Demadex) tab 20 mg 20 mg, Oral, BID (.AM/PM), First dose on Mon09/01/23 at 0915, Until Discontinued Given 09/01/2023 10:26 AM EST 20 mg trimethobenzamide (Tigan) inj 100 mg 100 mg, Intramuscular, Q6H PRN Nausea, Vomiting, Starting on Mon08/29/23 at 2010, Until Mon09/01/23 at 1841 Vitamin C (Ascorbic Acid) tab 500 mg 500 mg, Oral, DAILY NOON, First dose on Mon08/30/23 at 1200, Until Discontinued Given 09/01/2023 12:40 PM EST 500 mg Given 08/31/2023 12:00 PM EST 500 mg Given 08/30/2023 12:21 PM EST 500 mg Vitamin E (Aquasol E) cap 400 Units 400 Units, Oral, Daily(AM), First dose on Mon08/30/23 at 0900, Until Discontinued Given 09/01/2023 8:29 AM EST 400 Units Given 08/31/2023 8:44 AM EST 400 Units Given 08/30/2023 9:10 AM EST 400 Units documented in this encounter Active and Recently Administered Medications Times are shown in EST. Scheduled Medication Order 08/30/2023 08/31/2023 09/01/2023 albuterol-ipratropium (Duoneb) inhalation solution 3 mL 3 mL, Nebulizer, BID (), First dose on Mon08/29/23 at 2115, Until Discontinued, 3 mL = 0.5 mg ipratropium/ 2.5 mg albuterol 0918 (Given - Provider: Krystle Cordova RRT)192 (Given - Provider: Pietro Hua RRT) 0724 (Given - Provider: Krystle Cordova RRT)190 (Given - Provider: Jennifer Nixon RRT-ROOM WORKER) 07 (Given - Provider: Alejandra Linn RRT) Apixaban (Eliquis) tab 2.5 mg 2.5 mg, Oral, BID (.AM/PM), First dose on Mon08/30/23 at 0900, Until Discontinued 910 (Given - Provider: Luisito Cameron RN)2100 (Given - Provider: Libby Duffy RN) 08 (Given - Provider: Britney Randolph, MARTHA)2100 (Given - Provider: Alondra Willingham RN) 08 (Given - Provider: Hugo Smith, MARTHA) aspirin enteric coated tab 81 mg 81 mg, Oral, Daily(AM), First dose on Mon08/30/23 at 0900, Until Discontinued 910 (Given - Provider: Luisito Cameron RN) 0843 (Given - Provider: Britney Randolph RN) 08 (Given - Provider: Hugo Smith, MARTHA) atorvaSTATin (Lipitor) tab 20 mg 20 mg, Oral, HS, First dose on Mon08/29/23 at 2200, Until Discontinued 2100 (Given - Provider: Libby Duffy, RN) 2100 (Given - Provider: Alondra Willingham, RN) calcium CARBonate (Tums E-X) tab CHEW 750 mg 750 mg, Oral, DAILY NOON, First dose on Mon08/30/23 at 1200, Until Discontinued 122 (Given - Provider: Melisa Her RN) 1159 (Given - Provider: Britney Randolph, MARTHA) 124 (Given - Provider: Bernice Myers, MARTHA) cholecalciferol (VIT D3) (Vitamin D3) tab 2,000 Units 2,000 Units, Oral, DAILY NOON, First dose on Mon08/30/23 at 1200, Until Discontinued, NOTE: 1000 units = 25 mcg 1221 (Given - Provider: Melisa Her RN) 1159 (Given - Provider: Britney Randolph RN) 1240 (Given - Provider: Bernice Myers, MARTHA) CYANOCOBALAMIN (vitamin B-12) tab 1,000 mcg 1,000 mcg, Oral, Daily(AM), First dose on Mon08/30/23 at 0900, Until Discontinued 910 (Given - Provider: Luisito Cameron RN) 0844 (Given - Provider: Britney Randolph, MARTHA) 08 (Given - Provider: Hugo Smith, MARTHA) dorzolamide-timolol (Cosopt Ocumeter Plus) ophthalmic solution 1 Drop 1 Drop, Both eyes, BID (.AM/PM), First dose on Mon08/29/23 at 2145, Until Discontinued 910 (Given - Provider: Luisito Cameron, RN)2100 (Given - Provider: Libby Duffy, MARTHA) 0849 (Given - Provider: Britney Randolph, MARTHA)2100 (Given - Provider: Alondra Willingham, MARTHA) 08 (Given - Provider: Hugo Smith, MARTHA) fluticasone furoate-vilanterol (BREO ellipta) 100-25 MCG/ACT inhaler 1 Puff 1 Puff, Inhalation, RESPDAILY, First dose on Mon08/30/23 at 0800, Until Discontinued 0918 (Given - Provider: Krystle Cordova, SCIENTIFIC AFFAIRS MANAGER) 0724 (Given - Provider: Krystle Cordova, SCIENTIFIC AFFAIRS MANAGER) 07 (Given - Provider: Alejandra Linn, BARRIE) Furosemide (Lasix) inj 40 mg (CANCELED) 40 mg, IV Push, BID (0900, 1600), First dose on Mon08/30/23 at 0900, Until Discontinued 09 (Given - Provider: Luisito Cameron, MARTHA) Furosemide (Lasix) tab 40 mg (CANCELED) 40 mg, Oral, BID (899, 1600), First dose (after last modification) on Mon08/31/23 at 0900, Until Discontinued 842 (Given - Provider: Britney Randolph, MARTHA)165 (Given - Provider: Carol Bass LPN) 08 (Given - Provider: Hugo Smith, MARTHA) Latanoprost (Xalatan) 0.005 % ophthalmic solution 1 Drop 1 Drop, Both eyes, HS, First dose on Mon08/29/23 at 2200, Until Discontinued 2100 (Given - Provider: Libby Duffy RN) 214 (Given - Provider: Guy Mae, MARTHA) levoFLOXacin (Levaquin) tab 750 mg 750 mg, Oral, Q48H, First dose on Mon09/01/23 at 0900, Last dose on Mon09/03/23 at 0900, For 2 doses, Hold antacids and iron for 3-4 hours before and after administration 08 (Given - Provider: Hugo Smith, MARTHA) levoFLOXacin in D5W (Levaquin) ivpb 750 mg (CANCELED) IV Piggyback, 750 mg, Q24H, First dose on Mon08/29/23 at 2315, Until Discontinued, Administer over 90 Minutes 0051 (Paused - Provider: Libby Duffy, MARTHA)0101 (Stopped - Provider: Piper Freeman RN)2245 (New Bag - Provider: Libby Duffy RN) 0015 (Stopped - Provider: Libby Duffy, RN) methIMAzole (Tapazole) tab 2.5 mg 2.5 mg, Oral, Daily(AM), First dose on Mon08/30/23 at 0900, Until Discontinued, Six times per week. Does not take on Monday. 0910 (Given - Provider: Luisito Cameron, RN) 0843 (Given - Provider: Britney Randolph, RN) 08 (Given - Provider: Hugo Smith RN) midodrine (Proamatine) tab 5 mg 5 mg, Oral, TID 06;12;18, First dose on Mon08/30/23 at 0600, Until Discontinued 0616 (Given - Provider: Piper Freeman RN)1221 (Given - Provider: Melisa Her RN)183 (Given - Provider: Melisa Her RN) 0558 (Given - Provider: Libby Duffy, RN)115 (Given - Provider: Britney Randolph, RN)165 (Given - Provider: Carol Bass LPN) 0549 (Given - Provider: Guy Mae, MARTHA)1240 (Given - Provider: Bernice Myers, MARTHA) nystatin oral susp 500,000 Units 500,000 Units, Swish & Swallow, QID(AM/NOON/PM/HS), First dose on Mon08/29/23 at 2315, Until Discontinued, Shake well ! , Indications: Oral Candidiasis 0615 (Given - Provider: Piper Freeman, MARTHA)1221 (Given - Provider: Melisa Her RN)1836 (Given - Provider: Melisa Her, MARTHA)210 (Given - Provider: Libby Duffy RN) 0558 (Given - Provider: Libby Duffy, MARTHA)115 (Given - Provider: Britney Randolph, MARTHA)165 (Given - Provider: Carol Bass LPN)210 (Given - Provider: Alondra Willingham RN) 0548 (Given - Provider: Guy Mae, MARTHA)1245 (Given - Provider: Bernice Myers, MARTHA) oseltamivir (Tamiflu) cap 30 mg 30 mg, Oral, BID (.AM/PM), First dose on Mon08/29/23 at 2100, Last dose on Mon09/03/23 at 0900, For 5 days 0911 (Given - Provider: Luisito Cameron, RN)210 (Given - Provider: Libby Duffy RN) 0843 (Given - Provider: Britney Randolph RN)2102 (Given - Provider: Alondra Willingham RN) 0829 (Given - Provider: Hugo Smith, RN) oxygen GAS Inhalation, OXYGEN, First dose on Mon08/30/23 at 0000, Until Discontinued, Device/Managed by: Non-titratable Order (Provider), Device for Continuous Oxygen: Nasal cannula, Flow Rate (LPM): 2, Goal SPO2 (%): 91-95, 2L cont 0000 (Oxygen On - Provider: Piper Freeman, RN)0800 (Oxygen On - Provider: Luisito Cameron RN)1600 (Oxygen On - Provider: Melisa Her, MARTHA) 0000 (Oxygen On - Provider: Libby Duffy, RN)0800 (Oxygen On - Provider: Britney Randolph, MRATHA)1600 (Oxygen On - Provider: Carol Bass LPN) 0000 (Oxygen On - Provider: Guy Mae, RN)0800 (Oxygen On - Provider: Hugo Smith, MARTHA) potassium chloride ER tab 20 mEq 20 mEq, Oral, Daily(AM), First dose on Mon08/30/23 at 0900, Until Discontinued 0911 (Given - Provider: Luisito Cameron RN) 0844 (Given - Provider: Britney Randolph, MARTHA) 0829 (Given - Provider: Hugo Smith, MARTHA) sodium chloride 0.9 % flush peripheral geovanna 3 mL 3 mL, IV Push, QSHIFT, First dose on Mon08/30/23 at 0000, Until Discontinued, Do not flush if lock, PICC, or central line not in place; IV infusing or unable to flush. 0800 (Given - Provider: Luisito Cameron RN)1630 (Given - Provider: Melisa Her, MARTHA)2338 (Given - Provider: Libby Duffy, RN) 0848 (Given - Provider: Britney Randolph, MARTHA)1600 (Given - Provider: Carol Bass LPN) 0008 (Given - Provider: Guy Mae, MARTHA)0829 (Given - Provider: Hugo Smith, MARTHA) Torsemide (Demadex) tab 20 mg 20 mg, Oral, BID (.AM/PM), First dose on Mon09/01/23 at 0915, Until Discontinued 1026 (Given - Provider: Hugo Smith, MARTHA) Vitamin C (Ascorbic Acid) tab 500 mg 500 mg, Oral, DAILY NOON, First dose on Mon08/30/23 at 1200, Until Discontinued 1221 (Given - Provider: Melisa Her, RN) 1200 (Given - Provider: Britney Randolph, RN) 1240 (Given - Provider: Bernice Myers, MARTHA) Vitamin E (Aquasol E) cap 400 Units 400 Units, Oral, Daily(AM), First dose on Mon08/30/23 at 0900, Until Discontinued 09 (Given - Provider: Luisito Cameron RN) 0844 (Given - Provider: Britney Randolph, RN) 0829 (Given - Provider: Hugo Smith, MARTHA) PRN Medication Order 08/30/2023 08/31/2023 09/01/2023 Acetaminophen (Tylenol) tab 650 mg 650 mg, Oral, Q6H PRN Pain, Mild, Fever >38C(100.5F), Headache, Starting on Mon08/29/23 at 2009, Until Mon09/01/23 at 184, Maximum of 4 grams (4000 mg) per day. Albuterol Sulfate (Proventil) (2.5 MG/3ML) 0.083% inhalation solution 2.5 mg 2.5 mg, Nebulizer, Q4H PRN Dyspnea, Starting on Mon08/29/23 at 2036, Until Mon09/01/23 at 184 Benzonatate (Tessalon Perles) cap 200 mg 200 mg, Oral, TID PRN Cough, Starting on Mon08/29/23 at 2103, Until Mon09/01/23 at 184, This med should NOT be Crushed or Chewed 2100 (Given - Provider: Libby Duffy RN) 1045 (Given - Provider: Richard Fish, MARTHA) guaiFENesin-dm (Robitussin DM) oral syrup 10 mL 10 mL, Oral, Q4H PRN Cough, Starting on Mon08/29/23 at 2009, Until Mon09/01/23 at 1841 0240 (Given - Provider: Piper Freeman RN) 0028 (Given - Provider: Libby Duffy RN)1045 (Given - Provider: Richard Fish RN) house antacid (Mi-Acid II) oral susp 15 mL 15 mL, Oral, Q4H PRN Indigestion, Starting on Mon08/29/23 at 2009, Until Mon09/01/23 at 1841, SHAKE WELL melatonin tab 3 mg 3 mg, Oral, HS PRN Insomnia, Starting on Mon08/29/23 at 2009, Until Mon09/01/23 at 1841 perflutren lipid microsphere inj SUSP 1.956 mg () 1.956 mg, Intravenous, ONCE PRN Other, For Echo Only - Suboptimal Echo Images, Starting on Mon08/30/23 at 0755, Until Mon08/30/23 at 0954, For 2 hours, Administer IVP over 45 seconds, Cardiac Studies_HODHOV 0756 (Given - Provider: Alis Cisse LPN - Comment: 4ml) sodium chloride 0.9 % flush/inj 3 mL 3 mL, IV Push, PRN Other, Line Patency, Starting on Mon08/29/23 at 2006, Until Mon09/01/23 at 1841, Do not flush if lock, PICC, or central line not in place, IV infusing or unable to flush 0032 (Given - Provider: Libby Duffy RN) trimethobenzamide (Tigan) inj 100 mg 100 mg, Intramuscular, Q6H PRN Nausea, Vomiting, Starting on Mon08/29/23 at 2009, Until Mon09/01/23 at 1841 documented in this encounter Additional Health Concerns Infection Onset Date Last Indicated Resolved Time Respiratory Rule-Out 08/29/2023 08/29/2023 024 5:56 PM EST COVID-19 Rule-Out 08/29/2023 08/29/2023 08/29/2023 5:56 PM EST Influenza (seasonal) 08/29/2023 08/29/2023 documented as of this encounter Advance Directives [...] the patient have Health Care Power of Director Of Regional Sales? No Code Status History Code Status Date Activated Date Inactivated Comments Full Code 08/19/2023 2:26 PM 08/25/2023 7:30 PM This order reflects the patients wishes and were consensually agreed upon. Question Answer Comments Discussion of Advance Directives occurred with: Patient Does the patient have a Living Will? No Does the patient have Health Care Power of Director Of Regional Sales? No Full Code 07/30/2023 11:50 AM 08/02/2023 [...] the patient have Health Care Power of Director Of Regional Sales? No Care Teams Campground Cleaning Attendant Relationship Specialty Start Date End Date Jeanna Bal PA-C [address] [address] [place] [id number] PCP - General Physician Applications System Analyst 06/13/17 documented as of this encounter
--- OUTSIDE RECORDS SUMMARY | 2023-12-06 21:48 | External Medical Summary ---
Author Name Unknown Address Unknown Organization K1G:[facility] - [address] [place] [id number] Laboratory Report Ordering Provider Test Date Status ULYSSES SANTANA 09/01/2023 05:39:00 Final Observation Date Value Abnormality Reference (Units ) Status Magnesium 09/01/2023 05:39:00 1.8 1.5-2.6 (m g/dL) Final Performing Location [facility] - [address] [facility] [id number]
--- OUTSIDE RECORDS SUMMARY | 2023-12-06 21:48 | External Medical Summary | Summary of Care ---
Author Name Unknown Organization [facility] Address [address] [facility] [place] [address] Phone [phone] Care Team Providers Care Blade Boner Name Role Phone Jeanna Bal PA-C Primary Care Provi aydin Encounter Details Date Type Department Care Team (Late st Contact Info) Description 09/02/2023 Orders Only PATIENT PORTAL DO NOT DELETE THIS DEPT USED BY [place] [id number] Allergies Active Allergy Reactions Criticality Noted Date [...] Cough. 30 Capsule 0 08/25/2023 Active Nystatin 407188 UNIT/ML Mouth/Throat SuspensionIndicati ons:Oral Candidiasis Swish and swallow 5 mL in the morning and 5 mL at noon and 5 mL in the evening and 5 mL before bedtime. 0 08/29/2023 Active Apixaban 2.5 MG Oral Tablet (Eliquis) Take 1 Tablet by mouth in the morning and 1 Tablet before bedtime. 60 Tablet 0 09/01/2023 10/01/2023 Active levoFLOXacin 750 MG Oral Tablet (Levaquin) Take 1 Tablet by mouth every other day for 6 days. 3 Tablet 0 09/03/2023 09/09/2023 Active Oseltamivir Phosphate 30 MG Oral Capsule (Tamiflu) Take 1 Capsule by mouth in the morning and 1 Capsule before bedtime. Do all this for 2 days. 4 Capsule 0 09/01/2023 09/03/2023 Active Torsemide 20 MG Oral Tablet (Demadex) Take 1 Tablet by mouth in the morning and 1 Tablet before bedtime. 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 03/22/2016 Essential hypertension [...] No 08/29/2023 documented as of this encounter Plan of Treatment Upcoming Encounters Date Type Department Care Team (Late st Contact Info) Description 09/11/2023 3:00 PM EST Office Visit Cardiology, [facility] [address] [place] [phone] Jennifer Queen PA-C [address] [place] [phone] 09/15/2023 10:30 AM EST PulmDiagnostic Pulmonary Function Lab, [id number] [place], [place] [id number] [facility] [address] [place], [place] [id number] 10/05/2023 8:00 AM EST Office Visit Nephrology, [place] [address] [place] [address] Viktor Nicole MD [address] [place] [address] 10/10/2023 9:30 AM EDT Office Visit Pulmonary Medicine, [place] [address], [place] [id number] Yocasta Proctor CRNP [address] [place] [address] Health Maintenance Due Date Last [...] Infection Onset Date Last Indicated Resolved Time Influenza (seasonal) 08/29/2023 08/29/2023 documented as of [...] the patient have Health Care Power of Special Education Science Teacher? No Code Status History Code Status Date Activated Date Inactivated Comments Full Code 08/19/2023 2:26 PM 08/25/2023 7:30 PM This order reflects the patients wishes and were consensually agreed upon. Question Answer Comments Discussion of Advance Directives occurred with: Patient Does the patient have a Living Will? No Does the patient have Health Care Power of Special Education Science Teacher? No Full Code 07/30/2023 11:50 AM 08/02/2023 [...] the patient have Health Care Power of Special Education Science Teacher? No Care Teams Blade Boner Relationship Specialty Start Date End Date Jeanna Bal PA-C [address] [place] [address] PCP - General Physician Silk Weaver 06/13/17 documented as of this encounter
--- OUTSIDE RECORDS SUMMARY | 2023-12-06 21:48 | External Medical Summary ---
Author Name Unknown Address Unknown Organization K1G:LABORATORY [facility] - [address] [facility] [address] Laboratory Report Ordering Provider Test Date Status ULYSSES SANTANA 09/01/2023 05:39:00 Final Observation Date Value Abnormality Reference (Units ) Status Neutrophils/100 leukocytes in Blood by Manual count 09/01/2023 05:39:00 69.0 40.0-75.0 (%) Final Lymphocytes/100 leukocytes in Blood by Manual count 09/01/2023 05:39:00 18.0 18.0-42.0 (%) Final Monocytes/100 leukocytes in Blood by Manual count 09/01/2023 05:39:00 10.0 1.0-11.0 (%) Final Eosinophils/100 leukocytes in Blood by Manual count 09/01/2023 05:39:00 3.0 0.0-6.0 (%) Final Basophils/100 leukocytes in Blood by Manual count 09/01/2023 05:39:00 0.0 0.0-2.0 (%) Final Neutrophils [#/volume] in Blood by Manual count 09/01/2023 05:39:00 4.32 1.80-7.70 (K/uL) Final Lymphocytes [#/volume] in Blood by Manual count 09/01/2023 05:39:00 1.13 1.00-4.80 (K/uL) Final Monocytes [#/volume] in Blood by Manual count 09/01/2023 05:39:00 0.63 0.00-1.10 (K/uL) Final Eosinophils [#/volume] in Blood by Manual count 09/01/2023 05:39:00 0.19 0.00-0.70 (K/uL) Final Basophils [#/volume] in Blood by Manual count 09/01/2023 05:39:00 0.00 0.00-0.20 (K/uL) Final Nucleated erythrocytes/100 leukocytes [Ratio] in Blood by Automated count 09/01/2023 05:39:00 Final Performing Location LABORATORY [facility] - [address] [facility] [address]
--- OUTSIDE RECORDS SUMMARY | 2023-12-06 21:48 | External Medical Summary | Summary of Care ---
Author Name Unknown Organization [facility] [address] [facility] [address] Phone [phone] Care Team Providers Care Lacing String Cutter Name Role Phone Jeanna Bal PA-C Primary Care Provi aydin Reason for Visit * Reason Comments Hospital Follow-Up [facility] 08/29-09/01/23. [facility] 08/19-08/25/23. [facility] 07/30/2023 - 08/02/2023. Currently at [facility]. Edema ongoing in LE. Overall doing much better. Breathing and strength have improved. Cough is practically gone. Denies chest pain, palpitations, dizziness. Encounter Details Date Type Department Care Team (Latest Contact Info) Description 09/11/2023 3:00 PM EST Office Visit Cardiology, [facility] [address] [place] [phone] Jennifer Queen PA-C [address] [place] [phone] Chronic heart failure with preserved ejection fraction (HCC)*; Hypertrophic cardiomyopathy (HCC); Persistent atrial fibrillation (HCC); Chronic hyponatremia; Coronary artery disease involving [place] coronary artery of [place] heart without angina pectoris Allergies Active Allergy Reactions Criticality Noted Date Comments Amoxicillin Hives Medium 03/22/2016 Gatifloxacin Nausea/vomiting Medium 03/22/2016 Latex Rash Medium 03/22/2016 Other reaction(s): johnson documented as of this encounter (statuses as of 09/26/2023) Medications Medication Sig Dispensed Refills Start Date [...] 2 Capsules before bedtime. 0 11/07/2022 Active Ipratropium-Albut lola 0.5-2.5 (3) MG/3ML Inhalation Solution (Duoneb) Inhale 0.5 mg by mouth every 6 hours as needed for Shortness of Breath, Cough or Wheezing. 0 08/07/2023 Active Fluticasone Furoate-Vilantero l 100-25 MCG/ACT Inhalation Aerosol [...] Cough. 30 Capsule 0 08/25/2023 Active Nystatin 777142 UNIT/ML Mouth/Throat SuspensionIndicat ions:Oral Candidiasis Swish and swallow 5 mL in the morning and 5 mL at noon and 5 mL in the evening and 5 mL before bedtime. 0 08/29/2023 Active Apixaban 2.5 MG Oral Tablet (Eliquis) Take 1 Tablet by mouth in the morning and 1 Tablet before bedtime. 60 Tablet 0 09/01/2023 4 Active Torsemide 20 MG Oral Tablet (Demadex) Take 1 Tablet by mouth in the morning and 1 Tablet before bedtime. 60 Tablet 0 09/01/2023 4 Active Sodium Chloride 1 GM Oral Tablet Take 1 Tablet by mouth in the morning. 0 Active Sennosides-Docusa te Sodium 8.6-50 MG Oral Tablet (Senna-S) Take 1 Tablet by mouth in the morning. 0 Active Dorzolamide HCl-Timolol Mal 2-0.5 % Ophthalmic Solution (Cosopt) Instill 1 Drop into eye in the morning and 1 Drop before bedtime. 0 Active Preparation H 1-0.25-14.4-15 % External Cream (Osxetx-HQ-Ylunxs in-Petrolatum) Apply 1 Application topically to affected [...] rectum as needed for Constipation. 0 Active travoprost, PAVITHRA Free, (TRAVATAN Z) 0.004 % ophthalmic solution Instill 1 Drop into both eyes at bedtime. 0 06/08/2015 4 Discontinued (Medication List Clean Up) Dorzolamide HCl-Timolol Mal 22.3-6.8 MG/ML Ophthalmic Solution (COSOPT OCUMETER PLUS) Instill 1 Drop into both eyes in the morning and 1 Drop before bedtime. 0 04/20/2020 4 Discontinued (Medication List Clean Up) levoFLOXacin 500 MG Oral Tablet Take 1 Tablet by mouth. 0 4 Hospital, Clinic, or Other Facility Administered Medication Ordered Dose Route Frequency Start Date End Date Status Albuterol Sulfate (Proventil) (2.5 MG/3ML) 0.083% inhalation solution 2.5 mgIndications:SOB (shortness of breath),Abnormal CT of the chest 2.5 mg NEBULIZER PRN 08/08/2023 Active documented as of this encounter (statuses as of 09/26/2023) Active Problems Problem Noted Date Diagnosed Date [...] as of this encounter (statuses as of 09/26/2023) Resolved Problems Problem Noted Date Diagnosed Date Resolved Date Acute respiratory failure due to COVID-19 07/30/2023 08/01/2023 Pneumonia due to COVID-19 virus 07/30/2023 08/01/2023 NSTEMI (non-ST elevated myoc ardial infarction) 09/30/2021 10/05/2021 Pain in both lower extremities 03/22/2016 07/30/2023 documented as of this encounter (statuses as of 09/26/2023) Immunizations Name Administration Dates Next Due COVID-19 [...] Sign Reading Time Taken Comments Blood Pressure 110/66 09/11/2023 2:46 PM EST Pulse 64 09/11/2023 2:46 PM EST Temperature - - Respiratory Rate 16 09/11/2023 2:46 PM EST Oxygen Saturation - - Inhaled Oxygen Concentration - - Weight 88.9 kg (196 lb) 09/11/2023 2:46 PM EST Height - - Body Mass Index 37.03 08/30/2023 6:00 AM EST documented in this [...] No 08/29/2023 documented as of this encounter Progress Notes * Jennifer Queen PA-C - 09/11/2023 2:54 PM EST Cardiology F/U: SUBJECTIVE: Patient is a 87 year old female here today for routine cardiology follow-up. Last clinic evaluation approximately 9 months ago with the undersigned. History includes moderate mitral stenosis and moderate aortic stenosis, hypertrophic cardiomyopathyinvolving the septum and posterior wall with associated inducible LV outflow tract gradient, normalcoronary arteries per cath in September 2021, hypertension. Since last visit, patient admitted to [facility] for respiratory symptoms and diagnosed with pneumonia. During admission, patient had hyponatremia. Followed by Nephrology. Lasix was changed to torsemide. She was also found to have atrial fib controlled ventricular response which was new for patient. She was started on low-dose Eliquis for anticoagulation. Beta vikki was not initiated due to controled rates. She was discharged to rehab where she is currently residing. She presents today feeling well. Since discharge her weight has continued to trend down from 203 to196. Edema continues to improve. Tolerating meds. SOB has improved. Strength improved. No dizziness or lightheadedness. No chest pain. BP controlled. 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 ([facility]) I50.43, I38 Respiratory failure, acute ([facility]) J96.00 CAP (community acquired pneumonia) J18.9 Acute decompensated heart failure ([facility]) I50.9 Influenza A J10.1 Pulmonary HTN ([facility]) I27.20 Elevated troponin R79.89 Acute hyponatremia E87.1 Generalized weakness R53.1 Thrombocytopenia ([facility]) D69.6 New onset atrial fibrillation ([facility]) I48.91 Petechial rash R23.3 Oral thrush B37.0 Positive D dimer R79.89 Acute on chronic heart failure with preserved ejection fraction (HFpEF) ([facility]) I50.33 Atrial fibrillation ([facility]) I48.91 Chronic hyponatremia E87.1 Social History Tobacco Use Smoking status: Never [...] 2 Tablets by mouth daily at noon. vitamin c (ASCORBIC ACID) 500 MG Tablet Take 1 Tablet by mouth daily at noon. Vitamin E 400 UNITS Tablet Take 1 Tablet by mouth daily at noon. Calcium Carbonate 600 MG Tablet Take 1 Tablet by mouth in the morning and 1 Tablet before bedtime. travoprost, PAVITHRA Free, (TRAVATAN Z) 0.004 % ophthalmic solution Instill 1 Drop into both eyes at bedtime. Cyanocobalamin (VITAMIN B-12) 1000 MCG Tablet Take 1 Tablet by mouth in the morning. Dorzolamide HCl-Timolol Mal 22.3-6.8 MG/ML Ophthalmic Solution (COSOPT OCUMETER PLUS) Instill 1 Drop into both eyes in the morning and 1 Drop before bedtime. Magnesium Oxide 400 MG Oral Tablet Take 1 Tablet by mouth in the morning and 1 Tablet before bedtime. methIMAzole 5 MG Oral Tablet (TAPAZOLE) Take 1/2 tablet 6 days per week does not take on monday Atorvastatin Calcium 20 MG Oral Tablet (Lipitor) Take 1 Tablet by mouth daily. (Patient taking differently: Take 1 Tablet by mouth at bedtime.) 90 Tablet 6 Potassium Chloride ER 10 MEQ Oral Capsule Extended Release Take 2 Capsules by mouth in the morning and 2 Capsules before bedtime. Ipratropium-Albuterol 0.5-2.5 (3) MG/3ML Inhalation [...] Tablet in the evening. 90 Tablet 0 Benzonatate 100 MG Oral Capsule Take 2 Capsules by mouth 3 times a day as needed for Cough. 30 Capsule 0 Nystatin 573133 UNIT/ML Mouth/Throat Suspension Swish and swallow 5 mL in the morning and 5 mL at noon and 5 mL in the evening and 5 mL before bedtime. Apixaban 2.5 MG Oral Tablet (Eliquis) Take 1 Tablet by mouth in the morning and 1 Tablet before bedtime. 60 Tablet 0 Torsemide 20 MG Oral Tablet (Demadex) Take 1 Tablet by mouth in the morning and 1 Tablet before bedtime. 60 Tablet 0 Current Facility-Administered Medications Medication Dose Route Frequency Provider Last Rate Last Admin Albuterol Sulfate (Proventil) (2.5 MG/3ML) 0.083% inhalation solution 2.5 mg 2.5 mg Nebulizer Yocasta Lemus CRNP OBJECTIVE/PHYSICAL EXAMINATION: BP 110/66 | Pulse 64 | Resp 16 | Wt 88.9 kg (196 lb) | BMI 37.03 kg/m | BSA 1.96 m Wt Readings from Last 3 Encounters: 09/11/23 88.9 kg (196 lb) 09/01/23 90.3 kg (199 lb 1.2 oz) 08/25/23 88.6 kg (195 lb 6.4 oz) BP Readings from Last 4 Encounters: 09/11/23 110/66 09/01/23 111/58 08/25/23 102/64 08/08/23 141/80 General: NAD, AAO x3, well nourished. HEENT: [...] masses or organomegaly. No abdominal bruits. Extremities: Trace bilateral pedal and ankle edema. No clubbing, or cyanosis. Pulses: radial=2/4, Dorsalis pedis =2/4. Neuro: No focal deficits. ASSESSMENT: 87 year old female 1. Moderate Aortic stenosis and moderate mitral stenosis with pulm hypertension. Stable per recent echo. 2. Normal coronary arteries per cath in September 2021. 3. Hypertrophic cardiomyopathy severe left ventricular hypertrophy. Conservative therapies. 4. 4.5 cm ascending aortic aneurysm -stable per echocardiogram 04/2021, CTA 09/2021, echo 09/2021, CTscan Jul 2023 5. Hypertension - currently controlled. 6. Dyslipidemia - 7. Chronic LE edema - improved 8. Hyponatremia 9. Persistent atrial fib, rates controlled. Continue Eliquis PLAN: We reviewed recent hospital records. Stable echo findings with moderate and severe mitral stenosis. Conservative therapies recommended. Volume status improved with torsemide. She had labs completed this week with PCP. Will request. CHF tools discussed including daily weights, salt/sodium/fluid [...] or concerns. ER with all emergencies advised. Follow-up: Return in about 4 weeks (around 10/09/2023). | Check-out note: 4-6 weeks Jennifer Queen PA-C Department of Cardiology This chart was completed in part utilizing [employer] Speech Voice Recognition Software. Grammatical errors, random [...] documented in this encounter Nursing Notes * Chidi Flores LPN - 09/11/2023 2:45 PM EST Patient identified by full name and date of Chief Complaint Patient presents with Hospital Follow-Up [facility] 08/29-09/01/23. [facility] 08/19-08/25/23. [facility] 07/30/2023 - 08/02/2023. Currently at [facility]. Edema ongoing in LE. Overall doing much better. Breathing and strength have improved. Cough is practically gone. Denies chest pain, palpitations, dizziness. Examination Room: 6 Name: Maria Luisa Recinos Date of : (1935). Reason for Visit: HD follow up Interim Hospitalization(s): [facility] 08/29-09/01/23 Problems/Concerns: See chief complaint Chest Pain/SOB: See chief complaint [facility] Discussed: Not applicable [facility] is a way you can talk to your provider online through e-mail. Would you like to sign up? I can activate it for you? ALREADY ACTIVE Patient was instructed to not get up on the exam table until directed and assisted by their provider; patient is to remain seated in the chair/ wheelchair/ exam table for fall prevention and safety reasons. Patient is aware to have assistance to step down off exam table with personnel. Patient voiced full comprehension of instructions. documented in this encounter Plan of Treatment Upcoming Encounters Date Type Department Care Team (Late st Contact Info) Description 10/05/2023 8:00 AM EST Telemedicine Nephrology, [place] [address] [place] [address] Viktor Nicole MD [address] [place] [address] 10/12/2023 3:30 PM EDT Office Visit Cardiology, [facility] [address] [place] [place] [address] Jennifer Queen PA-C [address] [place] [address] 10/16/2023 12:30 PM EDT PulmDiagnostic Pulmonary Function Lab, [address] [id number] [facility], [facility] [address] [place], [place] [id number] 11/07/2023 8:30 AM EDT Telemedicine Pulmonary Medicine, [place] [address] [place] [address] Yocasta Proctor CRNP [address], [place] [id number] Health Maintenance Due Date Last Done Comments [...] Atrial fibrillation Chronic hyponatremia Hyposmolality and/or hyponatremia Coronary artery disease involving [place] coronary artery of [place] heart without angina pectoris documented in this encounter Additional Health Concerns Infection Onset Date Last Indicated Resolved Time Influenza (seasonal) 08/29/2023 08/29/2023 024 12:19 AM EST documented as of this encounter Advance [...] the patient have Health Care Power of Surgical Lead? No Code Status History Code Status Date Activated Date Inactivated Comments Full Code 08/19/2023 2:26 PM 08/25/2023 7:30 PM This order reflects the patients wishes and were consensually agreed upon. Question Answer Comments Discussion of Advance Directives occurred with: Patient Does the patient have a Living Will? No Does the patient have Health Care Power of Surgical Lead? No Full Code 07/30/2023 11:50 AM 08/02/2023 [...] the patient have Health Care Power of Surgical Lead? No Care Teams Lacing String Cutter Relationship Specialty Start Date End Date Jeanna Bal PA-C [address] [place] [address] [place] [id number] PCP - General Physician [employer] Lining Finisher 06/13/17 documented as of this encounter"
--- OUTSIDE RECORDS SUMMARY | 2023-12-06 21:48 | External Medical Summary ---
Author Name Unknown Address Unknown Organization K1G:LABORATORY [facility] - [address] [place] [id number] Laboratory Report Ordering Provider Test Date Status ULYSSES SANTANA 09/01/2023 05:39:00 Final Observation Date Value Abnormality Reference (Units ) Status BUN 09/01/2023 05:39:00 20 6-20 (mg/dL) Final Creatinine 09/01/2023 05:39:00 1.0 0.5-1.0 (mg/dL) Final Glomerular filtration rate/1.73 sq M.predicted [Volume Rate/Area] in Serum, Plasma or Blood by Creatinine-based formula (CKD-EPI) 09/01/2023 05:39:00 55 Below low normal >=60 (mL/min) Final eGFR is calculated based on the CKD-EPI 2020 equation SODIUM 09/01/2023 05:39:00 128 Below low normal 135 -146 (mmol/L) Final Potassium 09/01/2023 05:39:00 4.0 3.5-5.1 (m mol/L) Final Cl 09/01/2023 05:39:00 90 Below low normal 98- 107 (mmol/L) Final CO2 09/01/2023 05:39:00 27 22-32 (mmo l/L) Final Anion gap 09/01/2023 05:39:00 11 7-15 (mmol /L) Final Glucose 09/01/2023 05:39:00 76 70-120 (mg /dL) Final Calcium 09/01/2023 05:39:00 8.7 8.4-10.2 ( mg/dL) Final Performing Location LABORATORY [facility] - [address] [facility] [address]
--- OUTSIDE RECORDS SUMMARY | 2023-12-06 21:48 | External Medical Summary ---
Author Name Unknown Address Unknown Organization K1G:LABORATORY [facility] - [address] [place] [address] Laboratory Report Ordering Provider Test Date Status ULYSSES SANTANA 09/01/2023 05:39:00 Final Observation Date Value Abnormality Reference (Units ) Status WBC, Total 09/01/2023 05:39:00 6.26 4.00-10.8 0 (K/uL) Final RBC 09/01/2023 05:39:00 4.69 3.85-5.15 (M/uL) Final Hemoglobin 09/01/2023 05:39:00 13.4 12.0-15.3 (g/dL) Final HCT 09/01/2023 05:39:00 40.6 36.0-45.2 (%) Final MCV 09/01/2023 05:39:00 86.6 81.5-97.5 (fL) Final MCH 09/01/2023 05:39:00 28.6 27.0-34.0 (pg) Final MCHC 09/01/2023 05:39:00 33.0 32.0-36.0 (g/dL) Final RDW 09/01/2023 05:39:00 15.7 11.5-15.5 (%) Final Platelets 09/01/2023 05:39:00 129 Below low normal 140 -400 (K/uL) Final MPV 09/01/2023 05:39:00 10.0 6.6-11.1 ( fL) Final Performing Location LABORATORY [facility] - [address] [place] [id number]
--- OUTSIDE RECORDS SUMMARY | 2023-12-06 21:49 | External Medical Summary ---
Author Name Unknown Address Unknown Organization K1G:LABORATORY [facility] - [address] [place] [id number] Laboratory Report Ordering Provider Test Date Status LARA BLAKE 08/30/2023 06:10:00 Final Observation Date Value Abnormality Reference (Units ) Status WBC, Total 08/30/2023 06:10:00 3.79 Below low normal 4. 00-10.80 (K/uL) Final RBC 08/30/2023 06:10:00 4.53 3.85-5.15 (M/uL) Final Hemoglobin 08/30/2023 06:10:00 13.0 12.0-15.3 (g/dL) Final HCT 08/30/2023 06:10:00 39.3 36.0-45.2 (%) Final MCV 08/30/2023 06:10:00 86.8 81.5-97.5 (fL) Final MCH 08/30/2023 06:10:00 28.7 27.0-34.0 (pg) Final MCHC 08/30/2023 06:10:00 33.1 32.0-36.0 (g/dL) Final RDW 08/30/2023 06:10:00 15.7 11.5-15.5 (%) Final Platelets 08/30/2023 06:10:00 107 Below low normal 140 -400 (K/uL) Final MPV 08/30/2023 06:10:00 10.6 6.6-11.1 ( fL) Final Performing Location LABORATORY [facility] - [address] [facility] [address]
--- OUTSIDE RECORDS SUMMARY | 2023-12-06 21:49 | External Medical Summary ---
Author Name Unknown Address Unknown Organization K1G:LABORATORY [facility] - [facility] [address] Laboratory Report Ordering Provider Test Date Status LARA BLAKE 08/30/2023 06:10:00 Final Observation Date Value Abnormality Reference (Units ) Status Phosphate 08/30/2023 06:10:00 4.1 2.5-4.8 (m g/dL) Final Performing Location LABORATORY [facility] - [address] [facility] [address]
--- OUTSIDE RECORDS SUMMARY | 2023-12-06 21:49 | External Medical Summary ---
Author Name Unknown Address Unknown Organization K1G:LABORATORY [facility] - [address] [place] [id number] Laboratory Report Ordering Provider Test Date Status ULYSSES SANTANA 08/31/2023 06:02:00 Final Observation Date Value Abnormality Reference (Units ) Status WBC, Total 08/31/2023 06:02:00 5.42 4.00-10.8 0 (K/uL) Final RBC 08/31/2023 06:02:00 4.67 3.85-5.15 (M/uL) Final Hemoglobin 08/31/2023 06:02:00 13.4 12.0-15.3 (g/dL) Final HCT 08/31/2023 06:02:00 40.4 36.0-45.2 (%) Final MCV 08/31/2023 06:02:00 86.5 81.5-97.5 (fL) Final MCH 08/31/2023 06:02:00 28.7 27.0-34.0 (pg) Final MCHC 08/31/2023 06:02:00 33.2 32.0-36.0 (g/dL) Final RDW 08/31/2023 06:02:00 15.7 11.5-15.5 (%) Final Platelets 08/31/2023 06:02:00 114 Below low normal 140 -400 (K/uL) Final MPV 08/31/2023 06:02:00 10.0 6.6-11.1 ( fL) Final Performing Location LABORATORY [facility] - [address] [place] [phone]
--- OUTSIDE RECORDS SUMMARY | 2023-12-06 21:49 | External Medical Summary ---
Author Name Unknown Address Unknown Organization K1G:LABORATORY [facility] - [address] [facility] [address] Laboratory Report Ordering Provider Test Date Status LARA BLAKE 08/30/2023 06:10:00 Final Observation Date Value Abnormality Reference (Units ) Status BUN 08/30/2023 06:10:00 21 Above high normal 6-20 (mg/dL) Final Creatinine 08/30/2023 06:10:00 0.9 0.5-1.0 (mg/dL) Final Glomerular filtration rate/1.73 sq M.predicted [Volume Rate/Area] in Serum, Plasma or Blood by Creatinine-based formula (CKD-EPI) 08/30/2023 06:10:00 61 >=60 (mL/min) Final eGFR is calculated based on the CKD-EPI 2020 equation SODIUM 08/30/2023 06:10:00 129 Below low normal 135 -146 (mmol/L) Final Potassium 08/30/2023 06:10:00 4.7 3.5-5.1 (m mol/L) Final Cl 08/30/2023 06:10:00 92 Below low normal 98- 107 (mmol/L) Final CO2 08/30/2023 06:10:00 25 22-32 (mmo l/L) Final Anion gap 08/30/2023 06:10:00 12 7-15 (mmol /L) Final Glucose 08/30/2023 06:10:00 83 70-120 (mg /dL) Final Albumin 08/30/2023 06:10:00 2.4 Below low normal 3.8 -5.0 (g/dL) Final AST (Aspartate aminotransferase) 08/30/2023 06:10:00 42 Above high normal 10-35 (U/L) Final Result may be falsely elevat ed due to hemolysis. Alk Phos 08/30/2023 06:10:00 122 35-130 (U/ L) Final Bilirubin, Total 08/30/2023 06:10:00 1.0 <=1 .2 (mg/dL) Final Calcium 08/30/2023 06:10:00 8.9 8.4-10.2 ( mg/dL) Final Protein 08/30/2023 06:10:00 6.6 6.0-8.3 (g /dL) Final ALT (Alanine aminotransferase) 08/30/2023 06:10:00 26 10-35 (U/L) Final Performing Location LABORATORY [facility] - [facility] [address]
--- OUTSIDE RECORDS SUMMARY | 2023-12-06 21:49 | External Medical Summary ---
Author Name Unknown Address Unknown Organization K01:LABORATORY [facility] - [address] [facility] [address] Laboratory Report Ordering Provider Test Date Status LARA BLAKE 08/30/2023 08:19:45 Final Observation Date Value Abnormality Reference (Units ) Status Methicillin resistant Staphylococcus aureus (MRSA) DNA [Presence] in Nose by DEAN with probe detection 08/30/2023 08:19:45 Negative Negative Final No Methicillin resistant Sta phylococcus aureus detected by PCR (amplified probe). Performing Location LABORATORY C - [address] [place] [address]
--- OUTSIDE RECORDS SUMMARY | 2023-12-06 21:49 | External Medical Summary ---
Author Name Unknown Address Unknown Organization K01:LABORATORY [facility] - [facility] [address] [place] [address] Laboratory Report Ordering Provider Test Date Status MAXGAYLELENA 08/30/2023 10:26:00 Final Observation Date Value Abnormality Reference (Units ) Status Heparin induced platelet IgG Ab in Serum or Plasma by Immunoassay 08/30/2023 10:26:00 0.120 <0.400 (OD) Final Performing Location LABORATORY [facility] - [address] [place] [address]
--- OUTSIDE RECORDS SUMMARY | 2023-12-06 21:49 | External Medical Summary ---
Author Name Unknown Address Unknown Organization K1G:LABORATORY [facility] - [address] [facility] [address] Laboratory Report Ordering Provider Test Date Status ULYSSES SANTANA 08/31/2023 06:02:00 Final Observation Date Value Abnormality Reference (Units ) Status SYNC LEUKOCYTES IN BLOOD BY AUTOMATED COUNT 08/31/2023 06:02:00 5.42 4.00-10.80 (K/uL) Final Segs 08/31/2023 06:02:00 64.9 40.0-75.0 (%) Final Lymphs % 08/31/2023 06:02:00 16.2 Below low normal 18.0-42.0 (%) Final Monos 08/31/2023 06:02:00 13.7 Above high normal 1.0-11.0 (%) Final Eosinophils 08/31/2023 06:02:00 4.8 0.0-6.0 (%) Final Basos 08/31/2023 06:02:00 0.4 0.0-2.0 (%) Final Absolute Segs 08/31/2023 06:02:00 3.52 1.80-7.70 (K/uL) Final Lymphs, absolute 08/31/2023 06:02:00 0.88 Below low normal 1.00-4.80 (K/ul) Final Monos, Abs 08/31/2023 06:02:00 0.74 0.00-1.10 (K/uL) Final Eos, Abs 08/31/2023 06:02:00 0.26 0.00-0.70 (K/uL) Final Basos, Abs 08/31/2023 06:02:00 0.02 0.00-0.20 (K/uL) Final Performing Location LABORATORY SH - [address] [facility] [address]
--- OUTSIDE RECORDS SUMMARY | 2023-12-06 21:49 | External Medical Summary ---
Author Name Unknown Address Unknown Organization K1G:LABORATORY [facility] - [address] [place] [phone] Laboratory Report Ordering Provider Test Date Status ULYSSES SANTANA 09/01/2023 05:39:00 Final Observation Date Value Abnormality Reference (Units ) Status Phosphate 09/01/2023 05:39:00 3.4 2.5-4.8 (m g/dL) Final Performing Location LABORATORY [facility] - [address] [facility] [address]
--- OUTSIDE RECORDS SUMMARY | 2023-12-06 21:49 | External Medical Summary ---
Author Name UNSPECIFIED Address Unknown Organization [facility] History of Encounters Reason for Assessment: Transferred to an inpatient facility - patient not discharged from agency Inpatient Facility where the patient been admitted: Hospital
--- OUTSIDE RECORDS SUMMARY | 2023-12-06 21:49 | External Medical Summary ---
Author Name Unknown Address Unknown Organization K1G:LABORATORY [facility] - [address] [place] [phone] Laboratory Report Ordering Provider Test Date Status LARA BLAKE 08/30/2023 06:10:00 Final Observation Date Value Abnormality Reference (Units ) Status Troponin T 08/30/2023 06:10:00 30 Above high normal < =14 (ng/L) Final Performing Location LABORATORY [facility] - [address] [place] [address]
--- OUTSIDE RECORDS SUMMARY | 2023-12-06 21:49 | External Medical Summary ---
Author Name Unknown Address Unknown Organization K1G:LABORATORY [facility] - [address] [facility] [address] Laboratory Report Ordering Provider Test Date Status ULYSSES SANTANA 08/31/2023 06:02:00 Final Observation Date Value Abnormality Reference (Units ) Status Neutrophils/100 leukocytes in Blood by Manual count 08/31/2023 06:02:00 67.0 40.0-75.0 (%) Final Lymphocytes/100 leukocytes in Blood by Manual count 08/31/2023 06:02:00 16.0 Below low normal 18.0-42.0 (%) Final Monocytes/100 leukocytes in Blood by Manual count 08/31/2023 06:02:00 13.0 Above high normal 1.0-11.0 (%) Final Eosinophils/100 leukocytes in Blood by Manual count 08/31/2023 06:02:00 4.0 0.0-6.0 (%) Final Basophils/100 leukocytes in Blood by Manual count 08/31/2023 06:02:00 0.0 0.0-2.0 (%) Final Neutrophils [#/volume] in Blood by Manual count 08/31/2023 06:02:00 3.63 1.80-7.70 (K/uL) Final Lymphocytes [#/volume] in Blood by Manual count 08/31/2023 06:02:00 0.87 Below low normal 1.00-4.80 (K/uL) Final Monocytes [#/volume] in Blood by Manual count 08/31/2023 06:02:00 0.70 0.00-1.10 (K/uL) Final Eosinophils [#/volume] in Blood by Manual count 08/31/2023 06:02:00 0.22 0.00-0.70 (K/uL) Final Basophils [#/volume] in Blood by Manual count 08/31/2023 06:02:00 0.00 0.00-0.20 (K/uL) Final Nucleated erythrocytes/100 leukocytes [Ratio] in Blood by Automated count 08/31/2023 06:02:00 Final Performing Location LABORATORY [facility] - [facility] [address]
--- OUTSIDE RECORDS SUMMARY | 2023-12-06 21:49 | External Medical Summary ---
Author Name Unknown Address Unknown Organization K1G:LABORATORY [facility] - [facility] [address] Laboratory Report Ordering Provider Test Date Status LARA BLAKE 08/30/2023 06:10:00 Final Observation Date Value Abnormality Reference (Units ) Status Magnesium 08/30/2023 06:10:00 1.8 1.5-2.6 (m g/dL) Final Performing Location LABORATORY [facility] - [address] [facility] [address]
--- OUTSIDE RECORDS SUMMARY | 2023-12-06 21:49 | External Medical Summary ---
Author Name Unknown Address Unknown Organization K1G:LABORATORY [facility] - [address] [place] [phone] Laboratory Report Ordering Provider Test Date Status ULYSSES SANTANA 08/31/2023 06:02:00 Final Observation Date Value Abnormality Reference (Units ) Status BUN 08/31/2023 06:02:00 21 Above high normal 6-20 (mg/dL) Final Creatinine 08/31/2023 06:02:00 1.0 0.5-1.0 (mg/dL) Final Glomerular filtration rate/1.73 sq M.predicted [Volume Rate/Area] in Serum, Plasma or Blood by Creatinine-based formula (CKD-EPI) 08/31/2023 06:02:00 57 Below low normal >=60 (mL/min) Final eGFR is calculated based on the CKD-EPI 2020 equation SODIUM 08/31/2023 06:02:00 126 Below low normal 135 -146 (mmol/L) Final Potassium 08/31/2023 06:02:00 4.3 3.5-5.1 (m mol/L) Final Cl 08/31/2023 06:02:00 90 Below low normal 98- 107 (mmol/L) Final CO2 08/31/2023 06:02:00 25 22-32 (mmo l/L) Final Anion gap 08/31/2023 06:02:00 11 7-15 (mmol /L) Final Glucose 08/31/2023 06:02:00 77 70-120 (mg /dL) Final Calcium 08/31/2023 06:02:00 8.9 8.4-10.2 ( mg/dL) Final Performing Location LABORATORY [facility] - [address] [facility] [address]
--- OUTSIDE RECORDS SUMMARY | 2023-12-06 21:49 | External Medical Summary ---
Author Name Unknown Address Unknown Organization K1G:LABORATORY [facility] - [address] [place] [address] Laboratory Report Ordering Provider Test Date Status ULYSSES SANTANA 08/31/2023 06:02:00 Final Observation Date Value Abnormality Reference (Units ) Status Phosphate 08/31/2023 06:02:00 3.5 2.5-4.8 (m g/dL) Final Performing Location LABORATORY [facility] - [address] [facility] [phone]
--- OUTSIDE RECORDS SUMMARY | 2023-12-06 21:49 | External Medical Summary ---
Author Name Unknown Address Unknown Organization K1G:LABORATORY [facility] - [address] [place] [phone] Laboratory Report Ordering Provider Test Date Status ULYSSES SANTANA 08/31/2023 06:02:00 Final Observation Date Value Abnormality Reference (Units ) Status Magnesium 08/31/2023 06:02:00 1.7 1.5-2.6 (m g/dL) Final Performing Location LABORATORY [facility] - [address] [facility] [address]
--- OUTSIDE RECORDS SUMMARY | 2023-12-06 21:49 | External Medical Summary ---
Author Name Unknown Address Unknown Organization K1G:LABORATORY [facility] - [address] [place] [address] Laboratory Report Ordering Provider Test Date Status LARA BLAKE 08/30/2023 06:10:00 Final Observation Date Value Abnormality Reference (Units ) Status Schistocytes 08/30/2023 06:10:00 None Seen None Se en Final Performing Location LABORATORY [facility] - [address] [facility] [address]
--- OUTSIDE RECORDS SUMMARY | 2023-12-06 21:50 | External Medical Summary ---
Author Name Unknown Address Unknown Organization : Laboratory Report Ordering Provider Test Date Status LARA BLAKE 08/29/2023 17:34:01 Final Observation Date Value Abnormality Reference (Units ) Status Streptococcus pneumoniae Ag [Presence] in Urine 08/29/2023 17:34:01 Not Detected Not Detected Final
Test Performed at:
[facility]
[address] [facility] [place] [address]
Carlos Enrique Hernandez M.D., Ph.D.,Director of Laboratories Performing Location
--- OUTSIDE RECORDS SUMMARY | 2023-12-06 21:50 | External Medical Summary ---
Author Name Unknown Address Unknown Organization K1G:LABORATORY [facility] - [address] [place] [phone] Laboratory Report Ordering Provider Test Date Status EM PERRY 08/29/2023 16:38:09 Final Observation Date Value Abnormality Reference (Units ) Status WBC, Total 08/29/2023 16:38:09 4.00 4.00-10.8 0 (K/uL) Final RBC 08/29/2023 16:38:09 4.73 3.85-5.15 (M/uL) Final Hemoglobin 08/29/2023 16:38:09 13.5 12.0-15.3 (g/dL) Final HCT 08/29/2023 16:38:09 41.3 36.0-45.2 (%) Final MCV 08/29/2023 16:38:09 87.3 81.5-97.5 (fL) Final MCH 08/29/2023 16:38:09 28.5 27.0-34.0 (pg) Final MCHC 08/29/2023 16:38:09 32.7 32.0-36.0 (g/dL) Final RDW 08/29/2023 16:38:09 15.9 11.5-15.5 (%) Final Platelets 08/29/2023 16:38:09 117 Below low normal 140 -400 (K/uL) Final MPV 08/29/2023 16:38:09 10.3 6.6-11.1 ( fL) Final Performing Location LABORATORY [facility] - [address] [place] [phone]
--- OUTSIDE RECORDS SUMMARY | 2023-12-06 21:50 | External Medical Summary ---
Author Name Unknown Address Unknown Organization K1G:LABORATORY [facility] - [address] [facility] [address] Laboratory Report Ordering Provider Test Date Status EM PERRY 08/29/2023 16:38:09 Final Observation Date Value Abnormality Reference (Units ) Status BUN 08/29/2023 16:38:09 22 Above high normal 6-20 (mg/dL) Final Creatinine 08/29/2023 16:38:09 0.8 0.5-1.0 (mg/dL) Final Glomerular filtration rate/1.73 sq M.predicted [Volume Rate/Area] in Serum, Plasma or Blood by Creatinine-based formula (CKD-EPI) 08/29/2023 16:38:09 69 >=60 (mL/min) Final eGFR is calculated based on the CKD-EPI 2020 equation SODIUM 08/29/2023 16:38:09 129 Below low normal 135 -146 (mmol/L) Final Potassium 08/29/2023 16:38:09 Final Specimen too hemolyzed. Reor aydin if necessary. Cl 08/29/2023 16:38:09 94 Below low normal 98- 107 (mmol/L) Final CO2 08/29/2023 16:38:09 24 22-32 (mmo l/L) Final Anion gap 08/29/2023 16:38:09 11 7-15 (mmol /L) Final Glucose 08/29/2023 16:38:09 112 70-120 (mg /dL) Final Albumin 08/29/2023 16:38:09 2.5 Below low normal 3.8 -5.0 (g/dL) Final AST (Aspartate aminotransferase) 08/29/2023 16:38:09 Fin al Specimen too hemolyzed. Reor aydin if necessary. Alk Phos 08/29/2023 16:38:09 137 Above high normal 35 -130 (U/L) Final Result may be falsely elevat ed due to hemolysis. Bilirubin, Total 08/29/2023 16:38:09 0.8 <=1 .2 (mg/dL) Final Calcium 08/29/2023 16:38:09 9.2 8.4-10.2 ( mg/dL) Final Protein 08/29/2023 16:38:09 7.1 6.0-8.3 (g /dL) Final ALT (Alanine aminotransferase) 08/29/2023 16:38:09 32 10-35 (U/L) Final Result may be falsely elevat ed due to hemolysis. Performing Location LABORATORY [facility] - [address] [facility] [address]
--- OUTSIDE RECORDS SUMMARY | 2023-12-06 21:50 | External Medical Summary ---
Author Name Unknown Address Unknown Organization K1G:LABORATORY [facility] - [address] [place] [phone] Laboratory Report Ordering Provider Test Date Status EM PERRY 08/29/2023 16:38:09 Final Observation Date Value Abnormality Reference (Units ) Status Bacteria identified in Specimen by Culture 08/29/2023 16:38:09 No growth Final Test: Culture, Blood
Hero polanco Source: Blood, Venous
Specimen Type: Blood
Specimen Date: 08/29/2023 4:38 PM
Result Date: 09/08/2023 6:01 PM
Result Status: Final result
Resulting Lab: LABORATORY [facility]
[address] [place] [address]
[facility] [address]

CULTURE

No growth

null Performing Location LABORATORY [facility] - [address] [place] [phone]
--- OUTSIDE RECORDS SUMMARY | 2023-12-06 21:50 | External Medical Summary ---
Author Name Unknown Address Unknown Organization K1G:LABORATORY [facility] - [address] [place] [address] Laboratory Report Ordering Provider Test Date Status LARA BLAKE 08/29/2023 22:11:00 Final Observation Date Value Abnormality Reference (Units ) Status Troponin T 08/29/2023 22:11:00 32 Above high normal < =14 (ng/L) Final Performing Location LABORATORY [facility] - [address] [place] [phone]
--- OUTSIDE RECORDS SUMMARY | 2023-12-06 21:50 | External Medical Summary ---
Author Name Unknown Address Unknown Organization K1G:LABORATORY [facility] - [address] [facility] [address] Laboratory Report Ordering Provider Test Date Status EM PERRY 08/29/2023 16:38:09 Final Observation Date Value Abnormality Reference (Units ) Status Body temperature 08/29/2023 16:38:09 37.0 (C) Final pH of Venous blood 08/29/2023 16:38:09 7.443 Above high normal 7.320-7.430 (units) Final Carbon dioxide [Partial pressure] in Venous blood 08/29/2023 16:38:09 39.9 Below low normal 40.0-60.0 (mmHg) Final Oxygen [Partial pressure] in Venous blood 08/29/2023 16:38:09 48.8 25.0-50.0 (mmHg) Final Base excess, Capillary 08/29/2023 16:38:09 3.0 Above high normal -2.0-2.0 (mmol/L) Final Hemoglobin [Mass/volume] in Blood by Oximetry 08/29/2023 16:38:09 14.2 12.0-15.3 (g/dL) Final Oxyhemoglobin, Venous (FO2HB) 08/29/2023 16:38:09 81.9 40.0-85.0 (% total Hgb) Final Carboxyhemoglobin 08/29/2023 16:38:09 1.5 <=1.5 (% total Hgb) Final Smokers: 0-9.0 % Methemoglobin 08/29/2023 16:38:09 0.6 <=1.5 (% total Hgb) Final Deoxyhemoglobin/Hemoglobin.t otal in Venous blood 08/29/2023 16:38:09 16.0 (% total Hgb) Ambar l Oxygen content in Venous blood 08/29/2023 16:38:09 16.4 7.0-18.0 (%vol) Final Bicarbonate, Venous, POC (i-STAT) 08/29/2023 16:38:09 27.3 23.0-31.0 (mmol/L) [facility] Performing Location LABORATORY [facility] - [address] [place] [phone]
--- OUTSIDE RECORDS SUMMARY | 2023-12-06 21:50 | External Medical Summary ---
Author Name Unknown Address Unknown Organization K01:LABORATORY [facility] - [address] [facility] [place] [address] Laboratory Report Ordering Provider Test Date Status LARA BLAKE 08/29/2023 17:34:01 Final Observation Date Value Abnormality Reference (Units ) Status Legionella pneumophila 1 Ag [Presence] in Urine 08/29/2023 17:34:01 Negative Negative Final Presumptive negative for L. pneumophila serogroup 1 antigens. A negative result does not rule out the possibility of Legionella infection due to other serogroups or species of Legionella. Performing Location LABORATORY C - [address] [facility] [address]
--- OUTSIDE RECORDS SUMMARY | 2023-12-06 21:50 | External Medical Summary ---
Author Name Unknown Address Unknown Organization K1G:LABORATORY [facility] - [facility] [address] Laboratory Report Ordering Provider Test Date Status LARA BLAKE 08/29/2023 16:38:09 Final Observation Date Value Abnormality Reference (Units ) Status Phosphate 08/29/2023 16:38:09 4.2 2.5-4.8 (m g/dL) Final Performing Location LABORATORY [facility] - [address] [facility] [address]
--- OUTSIDE RECORDS SUMMARY | 2023-12-06 21:50 | External Medical Summary ---
Author Name Unknown Address Unknown Organization K1G:LABORATORY [facility] - [address] [place] [phone] Laboratory Report Ordering Provider Test Date Status AMANDA PERRYDER 08/29/2023 16:38:09 Final Observation Date Value Abnormality Reference (Units ) Status Troponin T 08/29/2023 16:38:09 31 Above high normal < =14 (ng/L) Final Result may be falsely decrea sed due to hemolysis. Performing Location LABORATORY [facility] - [address] [place] [phone]
--- OUTSIDE RECORDS SUMMARY | 2023-12-06 21:50 | External Medical Summary ---
Author Name Unknown Address Unknown Organization K1G:LABORATORY [facility] - [address] [facility] [address] Laboratory Report Ordering Provider Test Date Status EM PERRY 08/29/2023 16:38:09 Final Observation Date Value Abnormality Reference (Units ) Status SYNC LEUKOCYTES IN BLOOD BY AUTOMATED COUNT 08/29/2023 16:38:09 4.00 4.00-10.80 (K/uL) Final Neutrophils/100 leukocytes in Blood by Manual count 08/29/2023 16:38:09 62.0 40.0-75.0 (%) Final Lymphocytes/100 leukocytes in Blood by Manual count 08/29/2023 16:38:09 20.0 18.0-42.0 (%) Final Monocytes/100 leukocytes in Blood by Manual count 08/29/2023 16:38:09 8.0 1.0-11.0 (%) Final Eosinophils/100 leukocytes in Blood by Manual count 08/29/2023 16:38:09 9.0 Above high normal 0.0-6.0 (%) Final Basophils/100 leukocytes in Blood by Manual count 08/29/2023 16:38:09 1.0 0.0-2.0 (%) Final Neutrophils [#/volume] in Blood by Manual count 08/29/2023 16:38:09 2.48 1.80-7.70 (K/uL) Final Lymphocytes [#/volume] in Blood by Manual count 08/29/2023 16:38:09 0.80 Below low normal 1.00-4.80 (K/uL) Final Monocytes [#/volume] in Blood by Manual count 08/29/2023 16:38:09 0.32 0.00-1.10 (K/uL) Final Eosinophils [#/volume] in Blood by Manual count 08/29/2023 16:38:09 0.36 0.00-0.70 (K/uL) Final Basophils [#/volume] in Blood by Manual count 08/29/2023 16:38:09 0.04 0.00-0.20 (K/uL) Final Nucleated erythrocytes/100 leukocytes [Ratio] in Blood by Automated count 08/29/2023 16:38:09 Final Variant lymphocytes [Presence] in Blood by Light microscopy 08/29/2023 16:38:09 Present Abnormal None Seen Final Performing Location LABORATORY [facility] - [address] [facility] [address]
--- OUTSIDE RECORDS SUMMARY | 2023-12-06 21:50 | External Medical Summary ---
Author Name Unknown Address Unknown Organization K1G:LABORATORY [facility] - [address] [place] [phone] Laboratory Report Ordering Provider Test Date Status VICKYEM 08/29/2023 16:38:09 Final Exclude Heart Failure: <300 pg/mL
Diagnose Heart Failure:
Age <50 yr: >450 pg/mL
50-75 yr: >900 pg/mL
>75 yr: >1800 pg/mL
GFR is 30-59 mL/min: >1200 pg/mL or Age- adjusted values
GFR <30 mL/min: do not use, not reliable

Prognostic threshold: 1000 pg/mL Observation Date Value Abnormality Reference (Units ) Status BNP, Pro-hormone 08/29/2023 16:38:09 [id number] Above high no rmal <300 (pg/mL) Final Performing Location LABORATORY [facility] - [address] [place] [phone]
--- OUTSIDE RECORDS SUMMARY | 2023-12-06 21:50 | External Medical Summary ---
Author Name Unknown Address Unknown Organization K1G:LABORATORY [facility] - [address] [facility] [address] Laboratory Report Ordering Provider Test Date Status EM PERRY 08/29/2023 17:34:01 Final Observation Date Value Abnormality Reference (Units ) Status Color of Urine by Auto 08/29/2023 17:34:01 Yellow Light Yellow, Yellow, Dark Yellow Final Clarity, Urine 08/29/2023 17:34:01 Clear Clear Final Glucose [Mass/volume] in Urine by Automated test strip 08/29/2023 17:34:01 Negative Negative (mg/dL) Final Bilirubin.total [Presence] in Urine by Automated test strip 08/29/2023 17:34:01 Negative Negative Final Ketones [Mass/volume] in Urine by Automated test strip 08/29/2023 17:34:01 Negative Negative (mg/dL) Final Specific gravity, Urine 08/29/2023 17:34:01 1.015 1.003-1.030 Final Hemoglobin [Presence] in Urine by Automated test strip 08/29/2023 17:34:01 Trace Abnormal Negative Final pH, Urine 08/29/2023 17:34:01 7.0 5.0-7.5 (Units) Final Protein [Mass/volume] in Urine by Automated test strip 08/29/2023 17:34:01 Negative Negative (mg/dL) Final Urobilinogen [Mass/volume] in Urine by Automated test strip 08/29/2023 17:34:01 0.2 0.2, 1.0 (mg/dL) Final Nitrite [Presence] in Urine by Automated test strip 08/29/2023 17:34:01 Negative Negative Final Leukocyte esterase [Presence] in Urine by Automated test strip 08/29/2023 17:34:01 Negative Negative Final RBC, Urine 08/29/2023 17:34:01 0-2 0-2 (/HPF) Final WBC, Urine 08/29/2023 17:34:01 0-2 0-2 (/HPF) Final Bacteria [#/area] in Urine sediment by Microscopy high power field 08/29/2023 17:34:01 26-50 Abnormal 0-25 (/HPF) Final Epithelial cells.squamous [#/area] in Urine sediment by Microscopy high power field 08/29/2023 17:34:01 Many Abnormal None (/HPF) Final Performing Location LABORATORY [facility] - [address] [place] [phone]
--- OUTSIDE RECORDS SUMMARY | 2023-12-06 21:50 | External Medical Summary ---
Author Name Unknown Address Unknown Organization K1G:LABORATORY [facility] - [address] [facility] [address] Laboratory Report Ordering Provider Test Date Status LARA BLAKE 08/29/2023 22:11:00 Final Warfarin Therapy
INR: 2 .0-3.0 conventional anticoagulation
INR: 2.5- 3.5 high intensity anticoagulation Observation Date Value Abnormality Reference (Units ) Status PT 08/29/2023 22:11:00 15.5 Above high normal 11 .6-15.2 (seconds) Final INR 08/29/2023 22:11:00 1.2 0.8-1.2 Final Performing Location LABORATORY [facility] - [address] [facility] [address]
--- OUTSIDE RECORDS SUMMARY | 2023-12-06 21:50 | External Medical Summary ---
Author Name Unknown Address Unknown Organization K1G:LABORATORY [facility] - [address] [place] [phone] Laboratory Report Ordering Provider Test Date Status EM PERRY 08/29/2023 16:38:09 Final Observation Date Value Abnormality Reference (Units ) Status Lactic Acid, Whole Blood 08/29/2023 16:38:09 2.1 Above high normal 0.4-2.0 (mmol/L) Final Performing Location LABORATORY [facility] - [address] [place] [phone]
--- OUTSIDE RECORDS SUMMARY | 2023-12-06 21:50 | External Medical Summary ---
Author Name Unknown Address Unknown Organization K1G:LABORATORY [facility] - [address] [place] [phone] Laboratory Report Ordering Provider Test Date Status EM PERRY 08/29/2023 16:38:09 Final Observation Date Value Abnormality Reference (Units ) Status TSH 08/29/2023 16:38:09 4.13 0.27-4.20 (uIU/mL) Final Performing Location LABORATORY [facility] - [facility] [address]
--- OUTSIDE RECORDS SUMMARY | 2023-12-06 21:50 | External Medical Summary ---
Author Name Unknown Address Unknown Organization K1G:LABORATORY [facility] - [address] [facility] [address] Laboratory Report Ordering Provider Test Date Status LARA BLAKE 08/29/2023 22:11:00 Final Observation Date Value Abnormality Reference (Units ) Status CLINICIAN SLIDE READY? 08/29/2023 22:11:00 Yes Final Performing Location LABORATORY [facility] - [address] [facility] [address]
--- OUTSIDE RECORDS SUMMARY | 2023-12-06 21:50 | External Medical Summary ---
Author Name Unknown Address Unknown Organization K1G:LABORATORY [facility] - [address] [place] [address] Laboratory Report Ordering Provider Test Date Status LARA BLAKE 08/29/2023 22:11:00 Final Observation Date Value Abnormality Reference (Units ) Status Fibrinogen 08/29/2023 22:11:00 413 178-467 ( mg/dL) Final Performing Location LABORATORY [facility] - [address] [place] [phone]
--- OUTSIDE RECORDS SUMMARY | 2023-12-06 21:50 | External Medical Summary ---
Author Name Unknown Address Unknown Organization K1G:LABORATORY [facility] - [address] [place] [phone] Laboratory Report Ordering Provider Test Date Status LARA BLAKE 08/29/2023 22:11:00 Final Rheumatoid factor at a level above [...] [Mass/volume] in Platelet poor plasma by Immunoassay 08/29/2023 22:11:00 1.54 Above high normal <0.50 (ug/mL FEU) Final Performing Location LABORATORY [facility] - [address] [place] [phone]
--- OUTSIDE RECORDS SUMMARY | 2023-12-06 21:50 | External Medical Summary ---
Author Name Unknown Address Unknown Organization K1G:LABORATORY [facility] - [address] [place] [phone] Laboratory Report Ordering Provider Test Date Status VICKY,EM 08/29/2023 19:45:56 Final Observation Date Value Abnormality Reference (Units ) Status Lactic Acid, Whole Blood 08/29/2023 19:45:56 1.9 0.4-2.0 (mmol/L) Final Performing Location LABORATORY [facility] - [address] [facility] [id number]
--- OUTSIDE RECORDS SUMMARY | 2023-12-06 21:50 | External Medical Summary ---
Author Name Unknown Address Unknown Organization K1G:LABORATORY [address] [phone] Laboratory Report Ordering Provider Test Date Status EM PERRY 08/29/2023 16:38:09 Final Observation Date Value Abnormality Reference (Units ) Status Bacteria identified in Specimen by Culture 08/29/2023 16:38:09 No growth Final Test: Culture, Blood (Site 2 )
Specimen Source: Blood, Venous
Specimen Type: Blood
Specimen Date: 08/29/2023 4:38 PM
Result Date: 09/08/2023 6:01 PM
Result Status: Final result
Resulting Lab: [facility]ATORY [facility]
[address] [place] [address]
[facility] [address]

CULTURE

No growth

null Performing Location [facility]ATORY [facility] - [address] [place] [phone]
--- OUTSIDE RECORDS SUMMARY | 2023-12-06 21:50 | External Medical Summary ---
Author Name Unknown Address Unknown Organization K1G:LABORATORY [facility] - [address] [place] [phone] Laboratory Report Ordering Provider Test Date Status EM PERRY 08/29/2023 16:38:19 Final ADMITTED patient Observation Date Value Abnormality Reference (Units ) Status Adenovirus DNA [Presence] in Nasopharynx by DEAN with non-probe detection 08/29/2023 16:38:19 Negative Negative Final Human coronavirus 229E RNA [Presence] in Nasopharynx by DEAN with non-probe detection 08/29/2023 16:38:19 Negative Negative Final Human coronavirus HKU1 RNA [Presence] in Nasopharynx by DEAN with non-probe detection 08/29/2023 16:38:19 Negative Negative Final Human coronavirus NL63 RNA [Presence] in Nasopharynx by DEAN with non-probe detection 08/29/2023 16:38:19 Negative Negative Final Human coronavirus OC43 RNA [Presence] in Nasopharynx by DEAN with non-probe detection 08/29/2023 16:38:19 Negative Negative Final SARS-CoV-2 (COVID-19) RNA [Presence] in Nasopharynx by DEAN with non-probe detection 08/29/2023 16:38:19 Negative Negative Final Human metapneumovirus RNA [Presence] in Nasopharynx by DEAN with non-probe detection 08/29/2023 16:38:19 Negative Negative Final Rhinovirus+Enterovirus RNA [Presence] in Nasopharynx by DEAN with non-probe detection 08/29/2023 16:38:19 Negative Negative Final Influenza virus A H1 2009 pandemic RNA [Presence] in Nasopharynx by DEAN with non-probe detection 08/29/2023 16:38:19 Positive Abnormal Negative Final Influenza A virus Subtype H1 2009 detected by PCR (amplified probe). Test results reported to [facility].
null Influenza virus B RNA [Prese nce] in Nasopharynx by DEAN with non-probe detection 08/29/2023 16:38:19 Negative Negative Final Parainfluenza virus 1 RNA [P resence] in Nasopharynx by DEAN with non-probe detection 08/29/2023 16:38:19 Negative Negative Final Parainfluenza virus 2 RNA [P resence] in Nasopharynx by DEAN with non-probe detection 08/29/2023 16:38:19 Negative Negative Final Parainfluenza virus 3 RNA [P resence] in Nasopharynx by DEAN with non-probe detection 08/29/2023 16:38:19 Negative Negative Final Parainfluenza virus 4 RNA [P resence] in Nasopharynx by DEAN with non-probe detection 08/29/2023 16:38:19 Negative Negative Final Respiratory syncytial virus RNA [Presence] in Nasopharynx by DEAN with non-probe detection 08/29/2023 16:38:19 Negative Negative F inal Bordetella pertussis.pertuss is toxin promoter region [Presence] in Nasopharynx by DEAN with non-probe detection 08/29/2023 16:38:19 Negative Negative Final Chlamydophila pneumoniae DNA [Presence] in Nasopharynx by DEAN with non-probe detection 08/29/2023 16:38:19 Negative Negative Final Mycoplasma pneumoniae DNA [P resence] in Nasopharynx by DEAN with non-probe detection 08/29/2023 16:38:19 Negative Negative Final Bordetella parapertussis IS1 001 DNA [Presence] in Nasopharynx by DEAN with non-probe detection 08/29/2023 16:38:19 Negative Negative F inal
The primers that detect Rhinovirus may cross react with some Enterorviruses. The validation of bronchial specimens, tracheal aspirates, and throats for this assay was developed and performance characteristics determined by [employer]. The validation of alternate specimen types has not been cleared or approved by the U.S. Food and Drug Administration (FDA). It has been determined that such clearance or approval is not necessary. Performing Location LABORATORY [facility] - [address] [facility] [id number]
--- OUTSIDE RECORDS SUMMARY | 2023-12-06 21:50 | External Medical Summary ---
Author Name Unknown Address Unknown Organization K1G:LABORATORY [facility] - [address] [place] [phone] Laboratory Report Ordering Provider Test Date Status EM PERRY 08/29/2023 16:38:09 Final Observation Date Value Abnormality Reference (Units ) Status Magnesium 08/29/2023 16:38:09 2.1 1.5-2.6 (m g/dL) Final Performing Location LABORATORY [facility] - [address] [facility] [phone]
--- OUTSIDE RECORDS SUMMARY | 2023-12-06 21:51 | External Medical Summary ---
Author Name Unknown Address Unknown Organization K1G:LABORATORY [facility] - [address] [place] [phone] Laboratory Report Ordering Provider Test Date Status NINA LARSEN 08/23/2023 05:57:00 Final Observation Date Value Abnormality Reference (Units ) Status WBC, Total 08/23/2023 05:57:00 4.64 4.00-10.8 0 (K/uL) Final RBC 08/23/2023 05:57:00 4.37 3.85-5.15 (M/uL) Final Hemoglobin 08/23/2023 05:57:00 12.7 12.0-15.3 (g/dL) Final HCT 08/23/2023 05:57:00 37.8 36.0-45.2 (%) Final MCV 08/23/2023 05:57:00 86.5 81.5-97.5 (fL) Final MCH 08/23/2023 05:57:00 29.1 27.0-34.0 (pg) Final MCHC 08/23/2023 05:57:00 33.6 32.0-36.0 (g/dL) Final RDW 08/23/2023 05:57:00 14.9 11.5-15.5 (%) Final Platelets 08/23/2023 05:57:00 162 140-400 (K /uL) Final MPV 08/23/2023 05:57:00 9.1 6.6-11.1 ( fL) Final Performing Location [facility] - [address] [facility] [phone]
--- OUTSIDE RECORDS SUMMARY | 2023-12-06 21:51 | External Medical Summary ---
Author Name Unknown Address Unknown Organization K1G:LABORATORY [facility] - [address] [place] [phone] Laboratory Report Ordering Provider Test Date Status NINA LARSEN 08/24/2023 05:39:00 Final Observation Date Value Abnormality Reference (Units ) Status BUN 08/24/2023 05:39:00 46 Above high normal 6-20 (mg/dL) Final Creatinine 08/24/2023 05:39:00 1.2 Above high normal 0.5-1.0 (mg/dL) Final Glomerular filtration rate/1.73 sq M.predicted [Volume Rate/Area] in Serum, Plasma or Blood by Creatinine-based formula (CKD-EPI) 08/24/2023 05:39:00 46 Below low normal >=60 (mL/min) Final eGFR is calculated based on the CKD-EPI 2020 equation SODIUM 08/24/2023 05:39:00 125 Below low normal 135 -146 (mmol/L) Final Potassium 08/24/2023 05:39:00 3.9 3.5-5.1 (m mol/L) Final Cl 08/24/2023 05:39:00 91 Below low normal 98- 107 (mmol/L) Final CO2 08/24/2023 05:39:00 20 Below low normal 22- 32 (mmol/L) Final Anion gap 08/24/2023 05:39:00 14 7-15 (mmol /L) Final Glucose 08/24/2023 05:39:00 99 70-120 (mg /dL) Final Calcium 08/24/2023 05:39:00 8.8 8.4-10.2 ( mg/dL) Final Performing Location LABORATORY [facility] - [address] [facility] [phone]
--- OUTSIDE RECORDS SUMMARY | 2023-12-06 21:51 | External Medical Summary ---
Author Name Unknown Address Unknown Organization K1G:LABORATORY [facility] - [address] [place] [phone] Laboratory Report Ordering Provider Test Date Status NINA LARSEN 08/25/2023 05:31:00 Final Observation Date Value Abnormality Reference (Units ) Status BUN 08/25/2023 05:31:00 42 Above high normal 6-20 (mg/dL) Final Creatinine 08/25/2023 05:31:00 1.0 0.5-1.0 (mg/dL) Final Glomerular filtration rate/1.73 sq M.predicted [Volume Rate/Area] in Serum, Plasma or Blood by Creatinine-based formula (CKD-EPI) 08/25/2023 05:31:00 56 Below low normal >=60 (mL/min) Final eGFR is calculated based on the CKD-EPI 2020 equation SODIUM 08/25/2023 05:31:00 128 Below low normal 135 -146 (mmol/L) Final Potassium 08/25/2023 05:31:00 4.0 3.5-5.1 (m mol/L) Final Cl 08/25/2023 05:31:00 94 Below low normal 98- 107 (mmol/L) Final CO2 08/25/2023 05:31:00 22 22-32 (mmo l/L) Final Anion gap 08/25/2023 05:31:00 12 7-15 (mmol /L) Final Glucose 08/25/2023 05:31:00 114 70-120 (mg /dL) Final Calcium 08/25/2023 05:31:00 8.9 8.4-10.2 ( mg/dL) Final Performing Location LABORATORY [facility] - [address] [facility] [phone]
--- OUTSIDE RECORDS SUMMARY | 2023-12-06 21:51 | External Medical Summary ---
Author Name Unknown Address Unknown Organization K1G:LABORATORY [facility] - [address] [place] [phone] Laboratory Report Ordering Provider Test Date Status NINA LARSEN 08/21/2023 05:15:00 Final Observation Date Value Abnormality Reference (Units ) Status WBC, Total 08/21/2023 05:15:00 8.28 4.00-10.8 0 (K/uL) Final RBC 08/21/2023 05:15:00 4.30 3.85-5.15 (M/uL) Final Hemoglobin 08/21/2023 05:15:00 12.7 12.0-15.3 (g/dL) Final HCT 08/21/2023 05:15:00 37.8 36.0-45.2 (%) Final MCV 08/21/2023 05:15:00 87.9 81.5-97.5 (fL) Final MCH 08/21/2023 05:15:00 29.5 27.0-34.0 (pg) Final MCHC 08/21/2023 05:15:00 33.6 32.0-36.0 (g/dL) Final RDW 08/21/2023 05:15:00 14.9 11.5-15.5 (%) Final Platelets 08/21/2023 05:15:00 244 140-400 (K /uL) Final MPV 08/21/2023 05:15:00 9.3 6.6-11.1 ( fL) Final Performing Location LABORATORY [facility] - [address] [phone]
--- OUTSIDE RECORDS SUMMARY | 2023-12-06 21:51 | External Medical Summary ---
Author Name Unknown Address Unknown Organization K1G:LABORATORY [facility] - [address] [place] [phone] Laboratory Report Ordering Provider Test Date Status NINA LARSEN 08/24/2023 05:39:00 Final Observation Date Value Abnormality Reference (Units ) Status Magnesium 08/24/2023 05:39:00 2.1 1.5-2.6 (m g/dL) Final Performing Location LABORATORY [facility] - [address] [facility] [phone]
--- OUTSIDE RECORDS SUMMARY | 2023-12-06 21:51 | External Medical Summary ---
Author Name Unknown Address Unknown Organization K1G:LABORATORY [facility] - [address] [place] [phone] Laboratory Report Ordering Provider Test Date Status NINA LARSEN 08/22/2023 05:27:00 Final Observation Date Value Abnormality Reference (Units ) Status Magnesium 08/22/2023 05:27:00 1.9 1.5-2.6 (m g/dL) Final Performing Location LABORATORY [facility] - [address] [facility] [phone]
--- OUTSIDE RECORDS SUMMARY | 2023-12-06 21:51 | External Medical Summary | Summary of Care ---
Author Name Unknown Organization [facility] Address [address] [place] [address] Phone [phone] Care Team Providers Care Tyre Retreader Name Role Phone Jeanna Bal PA-C Primary Care Provi aydin Reason for Referral * Evaluate & Treat - Unlimited Visits (Within 10 days (routine)) - Authorized Specialty Diagnoses / Procedures Referred By Kasey nagy Referred To Contact HOME CARE / Home Care Diagnoses Respiratory failure (HCC) Ghada Leon PA-C [address] [facility] [place] [address] Referral ID Status Reason Start Date Expiration Date Visits Requested Visits Authorized [id number] Authorized Specialty Services Required 08/25/2023 999 999 Question Answer Referral Priority Within 10 days (routine) Where should this appointment be scheduled? Ron Comments Documentation of Xhsh-io-Mria Encounter Addendum Patient Name: Maria Luisa Recinos I certify that this patient is under my care and that I, or a nurse practitioner or physician's certified teacher assistant working with me, had a ohjr-su-zugy encounter that meets the physician bkpk-pb-fmrf encounter requirements with this patient on: 08/25/2023 The encounter with the patient was in whole, or in part, for the following medical condition, which is the primary reason for home health care (List medical condition): Medication management, gait dysfunction, ADL dysfunction, oxygen management I certify that, based on my findings, the following services are medically necessary home health services: Nursing, Physical Therapy, and Occupational Therapy To provide the following care/treatments: (All hospitalists not following the patient after discharge should complete this section): nursing, PT/OT, medication management, oxygen management Primary Care Physician to follow home care plan of care after discharge: Jeanna Bal PA-C My clinical findings support the need for the above services because: evaluation per treatment team Further, I certify that my clinical findings support that this patient is homebound (i.e. Absences from home require considerable and taxing effort and are for medical reasons or jainism services or infrequently or of short duration when for other reason) because: Stable for home Physician Signature: Date of Signature: Physician Printed Name: Ghada Leon PA-C Discharge Order Reason for Visit * Reason Comments Short of Breath * Auth/Cert Specialty Diagnoses / Procedures Referred By Kasey nagy Referred To Contact Referral ID Status Reason Start Date Expiration Date Visits Re quested Visits Authorized [id number] Encounter Details Date Type Department Care Team (Latest Contact Info) Description 08/19/2023 12:34 PM EST - 08/25/2023 3:00 PM EST Hospital Encounter ACU [facility], Acute Care Unit, Main Hospital 2nd Floor [address] [place] [address] [place], [address] [place] [address], [place] [address] Tim Todd, [address] [place] [address] Darrell Sarah DO [address] [place] [address] Various: KRAVS,EKG Discharge Disposition: Home with Services Allergies Active Allergy Reactions Criticality Noted Date Comments Amoxicillin Hives Medium 03/22/2016 Gatifloxacin Nausea/vomiting Medium 03/22/2016 Latex Rash Medium 03/22/2016 Other reaction(s): johnson documented as of this encounter (statuses as of 08/26/2023) Medications Medication Sig Dispensed Refills Start Date [...] the morning. 60 Each 5 08/08/2023 Active Furosemide 40 MG Oral Tablet (Lasix) Take 1 Tablet by mouth in the morning. 30 Tablet 2 08/26/2023 Active Classics Rolling Walker Use as directed. [...] for Cough. 30 Capsule 0 08/25/2023 Active Diovan 320 MG Oral Tablet Take 1 Tablet by mouth in the morning. 0 08/07/2023 4 Discontinued Torsemide 10 MG Oral Tablet (Demadex) Take 1 Tablet by mouth in the morning. 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 07/30/2023 Graves disease 09/30/2021 Hypertrophic cardiomyopathy 06/21/2020 Nonrheumatic mitral valve stenosis 06/21/2020 Ascending aortic 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 Coronary artery disease invo lving [place] coronary artery of [place] heart without angina pectoris 03/22/2016 Essential hypertension with goal blood pressure less than 140/90 03/22/2016 Dyslipidemia, goal to be determined 03/22/2016 documented as of this encounter (statuses as of 08/26/2023) Resolved Problems Problem Noted Date Diagnosed Date Resolved Date Acute respiratory failure due to COVID-19 07/30/2023 08/01/2023 Pneumonia due to COVID-19 virus 07/30/2023 08/01/2023 NSTEMI (non-ST elevated myoc ardial infarction) 09/30/2021 10/05/2021 Pain in both lower extremities 03/22/2016 07/30/2023 documented as of this encounter (statuses as of 08/26/2023) Immunizations Name Administration Dates Next Due COVID-19 [...] Sign Reading Time Taken Comments Blood Pressure 102/64 08/25/2023 7:43 AM EST Pulse 81 08/25/2023 12:35 PM EST Temperature 36 C (96.8 F) 08/25/2023 7:35 AM EST Respiratory Rate 16 08/25/2023 7:35 AM EST Oxygen Saturation 93% 08/25/2023 12:35 PM EST Inhaled Oxygen Concentration - - Weight 88.6 kg (195 lb 6.4 oz) 08/25/2023 8:00 A M EST Height 154.9 cm (5' 1") 08/19/2023 2:45 PM EST Body Mass Index 36.92 08/19/2023 2:45 PM EST documented in this encounter Functional Status Functional Status Response Date of Assess ment Are you deaf or do you have serious difficulty h earing? No 08/19/2023 Are you blind or do you have serious difficulty seeing, even when wearing glasses? No 08/19/2023 Do you have serious difficul ty walking or climbing stairs? (5 years old or older) Yes 08/19/2023 Do you have difficulty dress ing or bathing? (5 years old or older) No 08/19/2023 Because of a physical, menta l, or emotional condition, do you have difficulty doing errands alone such as visiting a doctor s office or shopping? (15 years old or older) Yes 08/19/19 Cognitive Status Response Date of Assessm ent Because of a physical, menta l, or emotional condition, do you have serious difficulty concentrating, remembering, or making decisions? (5 years old or older) No 08/19/2023 documented as of this encounter Discharge Summaries * Ghada Leon PA-C - 08/25/2023 8:58 AM EST [facility] [address] [facility] [id number] Admission Date: 08/19/2023 Discharge Date: 08/25/2023 RECOMMENDED TO DO FOR NEXT PROVIDER(S): Routine PCP follow-up Cardiology follow-up on 09/11 Home Oxygen as prescribed by PCP: 2L at rest and 2L with activity Home Health referral Walker sent at discharge REASON(S) FOR MEDICATION CHANGE(S): Stop Torsemide 10mg daily and Start Lasix 40mg daily for fluid retention Continue midodrine 5mg TID for low blood pressure STOP Diovan until discussing further with PCP at next visit DISPOSITION ON DISCHARGE: home with health services Active Hospital Problems Diagnosis *Principal Diagnosis - Respiratory failure, acute (HCC) Pneumonia Acute decompensated heart failure (HCC) 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 ADMISSION HISTORY & PHYSICAL EXAM (focused): Maria Luisa Recinos is an 87 year old female, with a PMHx of HFpEF, HOCM, HTN, DLD, who presents for evaluation of shortness of breath. The patient is accompanied by family, who assists with history taking.Patient was recently admitted from July 30, 2023 to August 02, 2023 with COVID-19 pneumonia as well as decompensated heart failure. The patient was discharged on torsemide 10 mg daily and was doing reasonably well however, over the past several days has had worsening shortness of breath, dyspnea on exertion and dry cough. She notes she feels like she can not catch her breath. Notes her dry weight is about 199-200 lb and she was noted to be 206. Went and saw her PCP's office yesterday who pre scribed her oxygen however was unable to have it delivered and time. With the worsening shortness of breath and dyspnea on exertion, she presented to the emergency department for further evaluation. The patient notes she does not weigh herself daily but takes her medications as prescribed. Notes her torsemide causes her to urinate in the 1st after day however the remainder of the day she does not urinate much. In the ER, the patient had lab work which notable for an elevated BNP. Patient's chest x-ray was suspicious for possible pneumonia as well as decompensated heart failure. The patient was given ceftriaxone, azithromycin as well as Lasix 40 mg IV and recommended for admission. Constitutional: no acute distress CV: normal rate and rhythm, no murmur, gallops or rub Chest: normal respiratory effort, inspiratory crackles at bases bilaterally, decreased at bases bilaterally Abdomen: normal: soft, bowel sounds normal, no masses, tenderness or organomegaly Extremities: no clubbing, cyanosis, 1-2+ edema bilaterally, otherwise grossly normal, warm, and dry HOSPITAL COURSE (focused): Patient is an 87 year old female admitted from the ED on 08/19 for acute respiratory failure secondary to heart failure exacerbation and CAP. Patient started on IV Lasix 40mg BID with improvement in breathing and weight reaching baseline. Patient completed 5-day course of Rocephin/Doxycycline for presumed CAP. Unfortunately, patient developed hypotension during the afternoon of 08/21, which mildly improved with fluid boluses. Hypotension most likely related to over-diuresis, Lasix and APPLICATION INTEGRATOR Diovan were held and patient was started on midodrine TID with improvement in blood pressure. Renal function also declined during this period, most likely secondary to hypotension, creatinine improved to 1.0on day of discharge 08/25. Patient able to tolerate PO Lasix BID during the day of 08/24, with blood pressure remaining stable. PT/OT worked with patient during hospital stay and recommended home with home health services. Patient continued to require oxygen supplementation during admission, 2L O2 atrest and with exertion. Patient seen at bedside day of discharge 08/25 reporting improvement in breathing and no further concerns, dry weight 195 lbs at discharge. Patient discharged to home in stablecondition with routine PCP follow-up, close cardiology follow-up and home health referral. APPLICATION INTEGRATOR Torsemide and Diovan discontinued at discharge, in favor of starting PO Lasix 40mg daily due to patient having a better response to Lasix during admission, diuresed 9.2L total. Midodrine TID also started at discharge for blood pressure support. Patient to resume APPLICATION INTEGRATOR oxygen use at home. Operations & Procedures: none Complications: none significant Significant Lab and Imaging Results: As mentioned above Results Pending at Discharge: Lab Results Pending at Discharge: None MEDICATION UPDATES AT DISCHARGE START taking these medications INSTRUCTIONS Allyn Mckeon Use as directed. Furosemide 40 MG Tablet Commonly known as: Lasix Start taking on: August 26, 2023 Take 1 Tablet by mouth in the morning. midodrine 5 MG Tablet Commonly known as: Proamatine Take 1 Tablet by mouth in the morning and 1 Tablet at noon and 1 Tablet in the evening. CHANGE how you take these medications INSTRUCTIONS atorvaSTATin 20 MG Tablet Commonly known as: Lipitor What changed: when to take this Take 1 Tablet by mouth daily. CONTINUE taking these medications INSTRUCTIONS albuterol-ipratropium 2.5-0.5 MG/3ML nebulizer solution Commonly known as: Duoneb Notes to patient: Shortness of breath Inhale 0.5 mg by mouth every 6 hours as needed for Shortness of Breath, Cough or Wheezing. aspirin enteric coated 81 MG Tbec Notes to patient: Heart health Take 1 Tablet by mouth in the morning. Calcium Carbonate 600 MG Tablet Notes to patient: Supplement Take 1 Tablet by mouth in the morning and 1 Tablet before bedtime. cholecalciferol (VIT D3) 1000 UNITS Tablet Commonly known as: Vitamin D3 Notes to patient: Supplement Take 2 Tablets by mouth daily at noon. dorzolamide-timolol 2.23-0.68% ophthalmic solution Commonly known as: Cosopt Ocumeter Plus Notes to patient: Hypertension in eye Instill 1 Drop into both eyes in the morning and 1 Drop before bedtime. fluticasone furoate-vilanterol 100-25 MCG/ACT Aepb Commonly known as: BREO ellipta Notes to patient: Steroid for COPD and asthma Inhale 1 Puff by mouth in the morning. Magnesium Oxide 400 MG Tablet Notes to patient: Supplement Take 1 Tablet by mouth in the morning and 1 Tablet before bedtime. methIMAzole 5 MG Tablet Commonly known as: Tapazole Notes to patient: Hyperthyroidism Take 1/2 tablet 6 days per week does not take on monday Potassium Chloride ER 10 MEQ Cpcr Notes to patient: Supplement Take 2 Capsules by mouth in the morning and 2 Capsules before bedtime. travoprost (PAVITHRA Free) 0.004 % ophthalmic solution Commonly known as: Travatan Z Notes to patient: Treats high pressure in eye, including glaucoma Instill 1 Drop into both eyes [...] daily at noon. STOP taking these medications Diovan 320 MG Tablet Generic drug: Valsartan Torsemide 10 MG Tablet Commonly known as: Demadex SCHEDULED FOLLOW-UP: Future Appointments Appt Date/Time Provider Department 09/11/2023 3:00 PM Jennifer Queen PA-C Cardiology, [facility] 09/15/2023 10:30 AM Stephanie Caputo Tech Pulmonary Function Lab, [facility] 10/10/2023 9:30 AM Yocasta Proctor CRNP Pulmonary Medicine, [facility] Follow Up Home Health Referral OP Other Information Indwelling Devices: LINES None Vital Signs (last recorded): Most Recent Systolic BP: 102 mmHg (08/25/23742) Most Recent Diastolic BP: 64 mmHg (08/25/23742) Pulse: 80 (08/25/23734) Resp: 16 (08/25/23734) Most Recent Temperature: 36 C (08/25/23734) Weight: 88.6 kg (195 lb 6.4 oz) (08/25/23 0800) SpO2: 97 % (08/25/23734) O2 flow rate: 2 L/MIN (08/25/23734) Allergies: Amoxicillin, Gatifloxacin, and Latex Activity: as tolerated Diet: previous diet Code status (this admission): Full Code Discussion of adv directives occurred with - adult: Patient Does patient have living will: No Does patient have health care power of insurance defense attorney: No Condition on Discharge: stable Isolation status: None Cognition: normal HOSPITAL CONSULTS ORDERED: ADULT PHYSICAL THERAPY CONSULT IP ADULT OCCUPATIONAL THERAPY CONSULT IP REFERRING PHYSICIAN: Ref: [id number]] NO STREET ADDRESS AVAILABLE None (office) None (fax) PRIMARY CARE PROVIDER: PCP: Jeanna Bal PA-C [address] [address] / [place] [address] (office) [phone] (fax) Note: To contact a physician responsible for this patients hospital care, please call [employer] [phone]. I certify this patient is confined to the home and needs intermittent custodial care, physical therapy and/or speech therapy, or [...] leave the home. The patient had a rmdh-br-sbjg encounter with an allowed provider type on 08/25/2023 and the encounter was related to the primary reason for home health care. Under situations in which I am an acute/post acute facility physician who will not be following the patient's plan of care, I authorized services on this plan of care and I transfer the patient for plan of care certification to the primary care physician shanell who will follow the patient and update the plan of care. Primary care physician Jeanna Bal PA-C I spent a total of 38 minutes coordinating, documenting, and providing care for this patient excluding time spent in the performance of separately billed services. Ghada Leon PA-C Associated attestation - Darrell Sarah DO - 08/25/2023 12:42 PM EST I have reviewed the advanced practitioner's documentation, and I agree with, and take responsibility for the plan of care. I spent a total of 6 minutes coordinating, documenting, and providing care for this patient excluding time spent in the performance of separately billed services or time spent by another provider/QHP. Patient is sitting up in chair, eating breakfast. Feels well. Ready for discharge today. No edema. No lightheadedness or dizziness documented in this encounter Discharge Instructions * Discharge Instr - AVS* Ghada Leon PA-C - 08/25/2023 8:55 AM EST Discharge Date: 08/25/2023 The information below provides you with the instructions and the list of medications you need to betaking following discharge from the hospital. If you have any questions, please ask before leaving. If you have questions after leaving, you can reach us at the numbers below. YOUR HOSPITAL PROVIDERS: Discharging Provider: Darrell Sarah DO Provider Department: Hospital Medicine To reach this provider Monday through Monday (8:00 AM to 4:30 PM) for any questions or test results: Call [phone]. For after-hours concerns: Call [phone] and have your provider paged or the provider transmission tester for the Department of [facility] Medicine paged. Please note, the discharging provider will not be able to provide you with any medications refills.Please discuss these with your primary care provider. Worsening Symptoms: If you have new symptoms, or your symptoms get worse, please contact your Discharge Provider or Primary Care Provider (PCP). If these providers are not available, you can go to your local [facility] or [facility] Clinic during their business hours. In an EMERGENCY situation: Call 911 or go to the nearest emergency room. A BRIEF SUMMARY OF YOUR HOSPITAL STAY: You came to the hospital with: complaint of shortness of breath Your main diagnosis at discharge was: acute respiratory failure due to heart failure exacerbation Operations & Procedures performed: none Complications: none significant Inpatient test results that are pending at discharge: none Advance Directive Documented: Advance Directive Does the Patient have an Advance Directive? Yes YOUR FOLLOW UP APPOINTMENTS: Primary Care Provider Information: PCP: Jeanna Bal PA-C [address] [place] [address] / [place] [address] (office) [phone] (fax) An appointment was requested with your PCP (Jeanna Bal PA-C) within 7 days. (Please take this form to this visit with your primary care physician.) You need the following studies in the future: none INSTRUCTIONS: Diet: Previous diet Activity: As tolerated Medication Changes: HOLD Diovan until PCP visit due to low blood pressure STOP Torsemide 10mg tablet; start Lasix 40mg (one tablet) daily in the morning START midodrine 5mg- take one tablet with breakfast/lunch/dinner Additional Instructions: - Call your primary care physician or seek medical attention if worsening shortness of breath or chest pain. -Routine PCP follow-up -Cardiology follow-up as scheduled on 09/11 -Please hold Diovan medication until talking with PCP at next visit -Home health referral -Walker will be sent home with you at discharge -Oxygen as prescribed. documented in this encounter Progress Notes * Zulma Sprniger, [facility] - 08/25/2023 11:55 AM EST PHARMACIST DISCHARGE NOTE [facility] [address] [facility] [address] Name: Maria Luisa Recinos : 1935 [address] Date: 08/25/2023 Time:11:55 AM Was discharge medication reconciliation reviewed by a pharmacist? yes Were new medication educations added to patient's discharge paperwork? yes Discharge Disposition: Home with Health Services Current Discharge Medication List START taking these medications Details Benzonatate 100 MG Oral Capsule Take 2 Capsules by mouth 3 times a day as needed for Cough. Qty: 30 Capsule, Refills: 0 Classics Rolling Walker Use as directed. Qty: 1 Each, Refills: 0 Comments: Discharge Order: Furosemide 40 MG Oral Tablet (Lasix) Take 1 Tablet by mouth in the morning. Qty: 30 Tablet, Refills: 2 Midodrine HCl 5 MG Oral Tablet (Proamatine) Take 1 Tablet by mouth in the morning and 1 Tablet at noon and 1 Tablet in the evening. Qty: 90 Tablet, Refills: 0 Current Discharge Medication List Current Discharge Medication List STOP taking these medications Diovan 320 MG Oral Tablet Comments: Reason for Stopping: Torsemide 10 MG Oral Tablet (Demadex) Comments: Reason for Stopping: Current Discharge Medication List CONTINUE these medications which have NOT CHANGED Details Fluticasone Furoate-Vilanterol 100-25 MCG/ACT Inhalation Aerosol Powder Breath Activated (BREO ellipta) Inhale 1 Puff by mouth in the morning. Qty: 60 Each, Refills: 5 Ipratropium-Albuterol 0.5-2.5 (3) MG/3ML Inhalation Solution (Duoneb) Inhale 0.5 mg by mouth every 6 hours as needed for Shortness of Breath, Cough or Wheezing. Potassium Chloride ER 10 MEQ Oral Capsule Extended Release Take 2 Capsules by mouth in the morning and 2 Capsules before bedtime. Atorvastatin Calcium 20 MG Oral Tablet (Lipitor) Take 1 Tablet by mouth daily. Qty: 90 Tablet, Refills: 6 Dorzolamide HCl-Timolol Mal 22.3-6.8 MG/ML Ophthalmic Solution (COSOPT OCUMETER PLUS) Instill 1 Drop into both eyes in the morning and 1 Drop before bedtime. Magnesium Oxide 400 MG Oral Tablet Take 1 Tablet by mouth in the morning and 1 Tablet before bedtime. methIMAzole 5 MG Oral Tablet (TAPAZOLE) Take 1/2 tablet 6 days per week does not take on monday Cyanocobalamin (VITAMIN B-12) 1000 MCG Tablet Take 1 Tablet by mouth in the morning. Aspirin 81 MG TBEC Take 1 Tablet by mouth in the morning. Calcium Carbonate 600 MG Tablet Take 1 Tablet by mouth in the morning and 1 Tablet before bedtime. cholecalciferol, VIT D3, (VITAMIN D3) 1000 UNITS Tablet Take 2 Tablets by mouth daily at noon. travoprost, PAVITHRA Free, (TRAVATAN Z) 0.004 % ophthalmic solution Instill 1 Drop into both eyes at bedtime. vitamin c (ASCORBIC ACID) 500 MG Tablet Take 1 Tablet by mouth daily at noon. Vitamin E 400 UNITS Tablet Take 1 Tablet by mouth daily at noon. Reviewed with: Patient and Child/Children Patient agreed to allow visitors to attend teaching, if present. Medication(s) covered during teaching session: see dc med rec Teaching points covered with patient and/or family: Route, Dosage Form and Schedule, Medication Intended Use/Action, Precautions to be Observed while using this Medication, Commonly Encountered Adverse Effects, Methods for Self- monitoring, Laboratory Monitoring, Potential Food and Drug Interactions, Therapeutic Contraindications, Prescription Refill Information, Action for a Missed Dose, and Patient Specific Information Written documentation regarding all of the teaching points will be provided to the patient and/or family members present by the nurse upon discharge. Assessment of teaching effectiveness: Pt/daughter were attentive and interactive. Pt indicated understanding. Reviewed ar med rec. Reivewed furosemide and midodrine in depth. No questions at this time. Length of teaching: Brief (less than 15 minutes) Please contact primary care provider if there are questions after discharge. Teaching completed according to pharmacy teaching standard 508. * Ghada Leon PA-C - 08/24/2023 7:30 AM EST Images from the original note were not included. [facility] ACU-[facility]/ INTERVAL HISTORY: Follow-up acute respiratory failure Patient seen at bedside. Doing better this morning, patient denies dizziness, difficulty breathing or abdominal pain. Blood pressure improved to 118/68 this morning after initiation of midodrine and fludrocortisone yesterday. Weight improved to 203 lbs. Intake/Output Summary (Last 24 hours) at 08/24/2023 0817 Last data filed at 08/24/2023 0200 Gross per 24 hour Intake 940 ml Output 600 ml Net 340 ml Objective Physical Exam Most Recent Vital Signs: BP: 106 mmHg/58 mmHg (08/23/232336) Pulse: 78 (08/23/232017) Temp: 36.89 C (08/23/232336) Resp: 19 (08/23/232336) SpO2: 94 % (01/24/24 2337) Constitutional: no acute distress, elderly female who is pleasant and conversational HEENT: normal: normocephalic, atraumatic; no masses, tenderness, or adenopathy CV: normal rate and rhythm, no murmur, gallops or rub Chest: normal respiratory effort, mild inspiratory crackles R> L, improved Abdomen: normal: soft, bowel sounds normal, no masses, tenderness or organomegaly Extremities: trace edema in bilateral LE, improved Skin: warm, dry, intact: Neuro: alert, oriented to person, place, and time, sensory normal Peripheral Line Right Hand 22 Gauge (Active) Number of days: 3 STUDIES: Encounter Orders Labs reviewed. 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 * DIFFERENTIAL AND PLAN: Acute respiratory failure Pneumonia Acute on chronic decompensated HF Patient's condition improved this morning, blood pressure improved to 118/68. Continue midodrine 10mg TID and fludrocortisone. Will start PO Lasix 40mg BID. Continue strict I&Os and daily standing weight. Hoping to improve weight to 200lbs by tomorrow. Oxygenation remains stable, spO2 95% on 2Lnasal cannula. Continue respiratory driven protocol, will update oxygen testing prior to discharge.Patient completed antibiotic course for pneumonia. Continue PT/OT. Family updated at bedside about plan. Chronic Conditions Hypertrophic cardiomyopathy HTN Dyslipidemia Graves Disease PHARMACOLOGIC VTE PROPHYLAXIS: Enoxaparin CODE STATUS: Full Code EXPECTED DISCHARGE DATE: 08/24/2023 I spent a total of 53 minutes coordinating, documenting, and providing care for this patient excluding time spent in the performance of separately billed services. Associated attestation - Darrell Sarah DO - 08/24/2023 12:09 PM EST I have reviewed the advanced practitioner's documentation, and I agree with, and take responsibility for the plan of care. I spent a total of 6 minutes coordinating, documenting, and providing care for this patient excluding time spent in the performance of separately billed services or time spent by another provider/QHP. Patient feeling much better, no dizziness when getting up in the chair. Discussed medication changes * Ghada Leon PA-C - 08/23/2023 9:58 AM EST Images from the original note were not included. [place] [id number] ACU- INTERVAL HISTORY: Follow-up acute respiratory failure Patient seen at bedside. Doing well this morning, denies dizziness, difficulty breathing or chest pain. Blood pressure remains low this morning. Weight 204 lbs. Patient and family updated at bedside. Intake/Output Summary (Last 24 hours) at 08/23/2023 1121 Last data filed at 08/23/2023 1100 Gross per 24 hour Intake 1315.54 ml Output 910 ml Net 405.54 ml Objective Physical Exam Most Recent Vital Signs: BP: 94 mmHg/62 mmHg (08/23/23 0852) Pulse: 77 (08/23/23 0800) Temp: 36.5 C (08/23/23 0712) Resp: 18 (08/23/23 0800) SpO2: 95 % (08/23/23 08) Constitutional: no acute distress, elderly female who is pleasant and conversational HEENT: normal: normocephalic, atraumatic; no masses, tenderness, or adenopathy CV: normal rate and rhythm, no murmur, gallops or rub Chest: normal respiratory effort, mild inspiratory crackles, improved Abdomen: normal: soft, bowel sounds normal, no masses, tenderness or organomegaly Extremities: trace edema in bilateral LE, improved Skin: warm, dry, intact: Neuro: alert, oriented to person, place, and time, sensory normal Peripheral Line Right Hand 22 Gauge (Active) Number of days: 2 STUDIES: Encounter Orders Labs reviewed. 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 * DIFFERENTIAL AND PLAN: Acute respiratory failure Pneumonia Acute on chronic decompensated HF Patient continues to have persistent hypotension, despite multiple fluid boluses and Lasix holiday.After discussion with Dr. Sarah, will start patient on midodrine 10mg TID and fludrocortisone for improvement in blood pressure. Will continue to hold Lasix, can reassess this afternoon if blood pressure improves.Oxygenation improved today, spO2 90% on room air. Continue respiratory driven protocol and wean oxygen as able. Will order nocturnal oximetry tonight. Patient to complete Rocephin/Doxycycline courses today for pneumonia. Continue PT/OT. Anticipated discharge home in 24-48 hours with improvement of blood pressure and renal function. Family in agreement with plan. Chronic Conditions Hypertrophic cardiomyopathy HTN Dyslipidemia Graves Disease PHARMACOLOGIC VTE PROPHYLAXIS: Enoxaparin CODE STATUS: Full Code EXPECTED DISCHARGE DATE: 08/24/2023 I spent a total of 54 minutes coordinating, documenting, and providing care for this patient excluding time spent in the performance of separately billed services. Ghada Leon PA-C Associated attestation - Darrell Sarah DO - 08/23/2023 1:41 PM EST I have reviewed the advanced practitioner's documentation, and I agree with, and take responsibility for the plan of care. I spent a total of 7 minutes coordinating, documenting, and providing care for this patient excluding time spent in the performance of separately billed services or time spent by another provider/QHP. Discussed medication changes with [place] and patient. Patient agreeable to proceeding with medicationtitration * Ghada Leon PA-C - 08/22/2023 11:39 AM EST Images from the original note were not included. [facility] ACU-221/ INTERVAL HISTORY: Follow-up acute respiratory failure Patient seen at bedside. Yesterday afternoon and overnight, patient was noted to be hypotensive, received multiple small fluid boluses (1L total) with improvement of blood pressure to 96/59 this morning. Patient reports that she feels okay today, just tired after not sleeping much last night due toreceiving IV fluids. She also reports mildly productive cough, unchanged. Patient denies chest pain, difficulty breathing or lightheadedness. Weight 201 lbs. Intake/Output Summary (Last 24 hours) at 08/22/2023 1142 Last data filed at 08/22/2023 1043 Gross per 24 hour Intake 1513.43 ml Output 1600 ml Net -86.57 ml Objective Physical Exam Most Recent Vital Signs: BP: 96 mmHg/59 mmHg (08/22/23730) Pulse: 65 (08/22/23730) Temp: 36.56 C (08/22/23730) Resp: 18 (08/22/23730) SpO2: 97 % (08/22/23730) Constitutional: no acute distress, elderly female who is pleasant and conversational HEENT: normal: normocephalic, atraumatic; no masses, tenderness, or adenopathy CV: normal rate and rhythm, no murmur, gallops or rub Chest: normal respiratory effort, mild inspiratory crackles, improved Abdomen: normal: soft, bowel sounds normal, no masses, tenderness or organomegaly Extremities: trace edema in bilateral LE, improved Skin: warm, dry, intact: Neuro: alert, oriented to person, place, and time, sensory normal Peripheral Line Right Hand 22 Gauge (Active) Number of days: 1 STUDIES: Encounter Orders Labs reviewed. 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 * DIFFERENTIAL AND PLAN: Acute respiratory failure Pneumonia Acute on chronic decompensated HF Patient was noted to have hypotension yesterday afternoon/evening, most likely secondary to over-diuresis. Patient received a total of 1L fluid bolus yesterday with improvement in blood pressure. Creatinine mildly worse today at 1.3, most likely secondary to hypotension. Will hold PO Lasix and PO Diovan today, monitor renal function with daily BMP tomorrow. Oxygenation remains stable, spO2 97% on 2L. Will arrange for pulmonary stress testing today to finalize oxygen requirements for discharge. Continue daily standing weight and strict I&Os. Continue Rocephin and Doxycycline for pneumonia.Will start scheduled Robitussin for cough. Continue PT/OT. Anticipated discharge home tomorrow withimprovement in blood pressure and renal function. Patient will benefit from home health at discharge. Chronic Conditions Hypertrophic cardiomyopathy HTN Dyslipidemia Graves Disease PHARMACOLOGIC VTE PROPHYLAXIS: Enoxaparin CODE STATUS: Full Code EXPECTED DISCHARGE DATE: 08/23/2023 I spent a total of 48 minutes coordinating, documenting, and providing care for this patient excluding time spent in the performance of separately billed services. Ghada Leon PA-C Associated attestation - Tim Todd DO - 08/22/2023 12:00 PM EST I have reviewed the advanced practitioner's documentation, and I agree with, and take responsibility for the plan of care. I spent a total of 15 minutes coordinating, documenting, and providing care for this patient excluding time spent in the performance of separately billed services or time spent by another provider/QHP. * Ghada Leon PA-C - 08/21/2023 7:43 AM EST Images from the original note were not included. [place] [id number] ACU- INTERVAL HISTORY: Follow-up acute respiratory failure Patient seen at bedside. Doing well this morning, patient reports shortness of breath has improved.spO2 99% on 2L nasal cannula. Patient denies chest pain, abdominal pain or fever/chills. Weight improved to 196 lbs today. Intake/Output Summary (Last 24 hours) at 08/21/2023 0914 Last data filed at 08/21/2023 0800 Gross per 24 hour Intake -- Output 3275 ml Net -3275 ml Objective Physical Exam Most Recent Vital Signs: BP: 119 mmHg/66 mmHg (08/21/2311) Pulse: 64 (08/21/2311) Temp: 37.06 C (08/21/2311) Resp: 20 (08/21/2311) SpO2: 96 % (08/21/2311) Constitutional: no acute distress, elderly female who is pleasant and conversational HEENT: normal: normocephalic, atraumatic; no masses, tenderness, or adenopathy CV: normal rate and rhythm, no murmur, gallops or rub Chest: normal respiratory effort, mild inspiratory crackles, improved Abdomen: normal: soft, bowel sounds normal, no masses, tenderness or organomegaly Extremities: trace edema in bilateral LE, improved Skin: warm, dry, intact: Neuro: alert, oriented to person, place, and time, sensory normal Peripheral Line Left Antecubital 20 Gauge (Active) Number of days: 2 STUDIES: Encounter Orders Labs reviewed. 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 * DIFFERENTIAL AND PLAN: Acute respiratory failure Pneumonia Acute on chronic decompensated HF Patient's condition overall improved, reports breathing has improved. spO2 99% on 2L, continue respiratory driven protocol and wean oxygen as able. Continue Rocephin and Doxycycline for CAP. Continuenebulizer treatments. Continue daily standing weight, strict I&Os, will transition patient to PO Lasix 40mg daily today. Continue PT/OT. Anticipated discharge to home in 24-48 hours with continued clinical improvement. Patient will need updated oxygen testing prior to discharge. Chronic Conditions Hypertrophic cardiomyopathy HTN Dyslipidemia Graves Disease PHARMACOLOGIC VTE PROPHYLAXIS: Enoxaparin CODE STATUS: Full Code EXPECTED DISCHARGE DATE: 08/22/2023 I spent a total of 48 minutes coordinating, documenting, and providing care for this patient excluding time spent in the performance of separately billed services. Ghada Leon PA-C Associated attestation - Tim Todd DO - 08/21/2023 9:32 AM EST I have reviewed the advanced practitioner's documentation, and I agree with, and take responsibility for the plan of care. I spent a total of 12 minutes coordinating, documenting, and providing care for this patient excluding time spent in the performance of separately billed services or time spent by another provider/QHP. * Tim Todd DO - 08/20/2023 7:19 AM EST Images from the original note were not included. [facility] ACU- INTERVAL HISTORY: Follow-up for respiratory failure. Doing well this morning, feeling better. Notes cough is improving, shortness of breath has improved. Intake/Output Summary (Last 24 hours) at 08/20/2023 0721 Last data filed at 08/20/2023 0615 Gross per 24 hour Intake 924.58 ml Output 1775 ml Net -850.42 ml Objective Physical Exam Most Recent Vital Signs: BP: 121 mmHg/67 mmHg (08/20/23 0000) Pulse: 69 (08/20/23 0000) Temp: 37 C (08/20/23) Resp: 20 (08/20/23 0000) SpO2: 97 % (08/20/23) Constitutional: no acute distress CV: normal rate and rhythm, no murmur, gallops or rub Chest: normal respiratory effort, less inspiratory crackles at bases bilaterally Abdomen: normal: soft, bowel sounds normal, no masses, tenderness or organomegaly Extremities: no clubbing, cyanosis, 1+ edema bilaterally, otherwise grossly normal, warm, and dry Peripheral Line Left Antecubital 20 Gauge (Active) Number of days: 1 STUDIES: Encounter Orders Reviewed Assessment and Plan IMPRESSION : Principal Problem: Respiratory failure, acute (HCC) Active Problems: Essential hypertension with goal blood pressure less than 140/90 Dyslipidemia, goal to be determined Hypertrophic cardiomyopathy (HCC) Graves disease 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 * DIFFERENTIAL AND PLAN: Acute hypoxic respiratory failure Gram-negative pneumonia Acute on chronic decompensated diastolic heart failure Improving and feeling better, less shortness of breath and cough. Continue Lasix 40 mg IV twice daily for today and consider transition to oral diuretics tomorrow. Daily weights, standing only. Intake and output q.4 hours. New ceftriaxone and doxycycline at this time. PT OT consult. Chronic medical conditions Hypertrophic cardiomyopathy Hypertension Dyslipidemia Graves disease PHARMACOLOGIC VTE PROPHYLAXIS: Enoxaparin CODE STATUS: Full Code EXPECTED DISCHARGE DATE: 08/22/2023 I spent a total of 55 minutes coordinating, documenting, and providing care for this patient excluding time spent in the performance of separately billed services. documented in this encounter H&P Notes * iTm Todd DO - 08/19/2023 2:04 PM EST Images from the original note were not included. [facility] ACU- PRESENTING PROBLEM: Shortness of breaths HPI: Maria Luisa Recinos is an 87 year old female, with a PMHx of HFpEF, HOCM, HTN, DLD, who presents for evaluation of shortness of breath. The patient is accompanied by family, who assists with history taking. Patient was recently admitted from July 30, 2023 to August 02, 2023 with COVID-19 pneumonia as well as decompensated heart failure. The patient was discharged on torsemide 10 mg daily and was doing reasonably well however, over the past several days has had worsening shortness of breath, dyspnea on exertion and dry cough. She notes she feels like she can not catch her breath. Notes her dry weight is about 199- 200 lb and she was noted to be 206. Went and saw her PCP's office yesterday who prescribed her oxygen however was unable to have it delivered and time. With the worsening shortness of breath and dyspnea on exertion, she presented to the emergency department for further evaluation. The patient notes she does not weigh herself daily but takes her medications as prescribed. Notes her torsemide causes her to urinate in the 1st after day however the remainder of the day she does not urinate much. In the ER, the patient had lab work which notable for an elevated BNP. Patient's chest x-ray was suspicious for possible pneumonia as well as decompensated heart failure. The patient was given ceftriaxone, azithromycin as well as Lasix 40 mg IV and recommended for admission. Subjective Patient's past history, medications, and allergies were reviewed. Objective Physical Exam Most Recent Vital Signs: BP: 135 mmHg/100 mmHg (08/19/23 1445) Pulse: 67 (08/19/23 1445) Temp: 36.5 C (08/19/23 1445) Resp: 20 (08/19/23 1445) SpO2: 92 % (08/19/23 1445) Constitutional: no acute distress CV: normal rate and rhythm, no murmur, gallops or rub Chest: normal respiratory effort, inspiratory crackles at bases bilaterally, decreased at bases bilaterally Abdomen: normal: soft, bowel sounds normal, no masses, tenderness or organomegaly Extremities: no clubbing, cyanosis, 1-2+ edema bilaterally, otherwise grossly normal, warm, and dry STUDIES: Encounter Orders Chest x-ray, independently reviewed, bilateral interstitial infiltrates noted Assessment and Plan IMPRESSION: Principal Problem: Respiratory failure, acute (HCC) Active Problems: Essential hypertension with goal blood pressure less than 140/90 Dyslipidemia, goal to be determined Hypertrophic cardiomyopathy (HCC) Graves disease 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 * DIFFERENTIAL AND PLAN: Acute hypoxic respiratory failure Gram-negative pneumonia Acute on chronic decompensated diastolic heart failure Patient presents with worsening shortness of breath and found to have respiratory failure requiring2 L nasal cannula. Patient had a recent admission for COVID-19 and heart failure. Chest x-ray notable for vascular congestion and possible infiltrates consistent with pneumonia. Will start diuresis with Lasix 40 mg IV twice daily monitor intake and output q.4 hours. Daily weights, standing only. Ceftriaxone and azithromycin. Follow up procalcitonin. PT and OT. Chronic medical conditions Hypertrophic cardiomyopathy Hypertension Dyslipidemia Graves disease PHARMACOLOGIC VTE PROPHYLAXIS:Enoxaparin CODE STATUS: Full Code EXPECTED DISCHARGE DATE: 08/22/2023 I spent a total of 78 minutes coordinating, documenting, and providing care for this patient excluding time spent in the performance of separately billed services. documented in this encounter Procedure Notes * Sid Guido MD - 08/19/2023 12:49 PM ESTAssociated Order(s): EKG REASON FOR STUDY: SOB CONCLUSIONS: Normal sinus rhythm Left anterior fascicular block Lateral infarct (cited on or before 14-DEC-2022) Abnormal ECG When compared with ECG of 30-JUL-2023 08:07, ST no longer depressed in Inferior leads ST now depressed in Lateral leads Nonspecific T wave abnormality no longer evident in Inferior leads Ventricular Rate: 65 Atrial Rate: 65 AR Interval: 138 QRS Duration: 100 QT/QTc: 444/461 ms P-R-T [place]: 0 : -49 : 88 degrees documented in this encounter Consult Notes * Veronica Bustos, OT - 08/20/2023 9:06 AM ESTAssociated Order(s): ADULT OCCUPATIONAL THERAPY CONSULT IP GENERAL EVALUATION - Occupational Therapy [place] [id number] [facility] [id number] Name: Maria Luisa Recinos Location: [facility] ACU-/ Date: 08/20/2023 Time: 9:06 AM Maria Luisa Recinos is a 87 year old female. Patient Status: Inpatient Insurance: Payor: MEDICARE Plan: MEDICARE A AND B Product Type: *No Product type* Payor: [employer] [facility] ([employer]) Plan: [place] MEDICARE SUPPLEMENT Product Type: *No Product type* Patient Seen: at bedside, nursing cleared patient for therapy Patient Identified By: Name, ID Band and Date Diagnosis: Respitory failure acute (08/20/23835) Status of treatment: Evaluation completed (08/20/23835) Orders: OT evaluation and treatment (08/20/23835) Weight Bearing Status: Weight bearing as tolerated (08/20/23835) Precautions: Alarms;Falls;Oxygen (08/20/23835) Total Treatment Time: 16 (08/20/23835) Past Medical History: Past Medical History: Diagnosis Date AAA (abdominal aortic aneurysm) (HCC) Graves disease Hypertrophic cardiomyopathy (HCC) Mixed hyperlipidemia Nonrheumatic mitral valve stenosis Primary hypertension Past Surgical History: Past Surgical History: Procedure Laterality Date APPENDECTOMY W/OTHER PROCEDURE CORONARY ANGIOGRAPHY W/LEFT HEART CATH Right 10/04/2021 CORONARY ANGIOGRAPHY W/LEFT HEART CATH performed by Rodri Jacobs MD at [facility];W/HYSTERECTOMY AR CHOLECYSTECTOMY Social History/Disposition Lives with: Alone (08/20/23835) Assistance available: Yes (08/20/23835) Dwelling type: Single story home (08/20/23835) Entry steps: 1 (08/20/23835) Inside steps: None (08/20/23835) Bedroom location: 1st floor (08/20/23835) Bath location: 1st floor full bath (08/20/23835) Prior Level of Function Reported by: Patient (08/20/23835) Ambulation: Ambulatory without device (08/20/23835) Grooming: Independent (08/20/23835) Bathing: Independent (08/20/23835) Dressing: Independent (08/20/23835) Feeding: Independent (08/20/23835) Toileting: Independent (08/20/23835) Meal Prep: Independent (08/20/23835) Homemaking: Assistance (08/20/23835) Shopping: Assistance (08/20/23835) Medication Management: Assistance (08/20/23835) Driving: Yes (has no drove though since last hospitalization) (08/20/23835) Subjective: Patient pleasant and cooperative Pain: No complaints of pain Observations Consciousness: Alert (08/20/23835) Orientation: Oriented times 4 (08/20/23835) Sitting posture: Rounded shoulders;Forward head (08/20/23835) Standing posture: Rounded shoulders;Forward head (08/20/23835) Other Findings Endurance: Standing tolerance;Poor (fatigues easily, only able to tolerate limited mobility and activity on eval) (08/20/23835) Current Functional Status: Bilateral Upper Extremity Range of Motion: WFL, except (08/20/23835) LUE: (limited shoulder ROM) (08/20/23835) RUE: (limited shoulder ROM) (08/20/23835) Functional Ambulation Assistive Device: No device (08/20/23835) OT Transfers Sit-Stand: Contact Guard (08/20/23835) Toilet: Contact Guard (08/20/23835) Balance Sit (Static): Good (08/20/23835) Sit (Dynamic): Good (08/20/23835) Stand (Static): Fair (08/20/23835) Stand (Dynamic): Fair (08/20/23835) Alarm Status Patient positioned in: Bed (08/20/23835) With: Personal alarm intact and functioning with call leon in reach (08/20/23835) Patient and Family Goals: to return home Patient Education Education Topic: Role of OT;Deep breathing techniques (08/20/23835) Review of Precautions: Fall (08/20/23835) Treatment Provided: Evaluation Moderate Complexity 16 minutes - 96503: Patient was cooperative and pleasant during treatment session. Moderate complexity evaluation performed and 3-5 activity limitations were identified, including ADL deficit, functional mobility deficit, decreased strength, decreased endurance, and impaired balance. Minimal or moderate modification of the functional task was necessary to complete the evaluation. Deficits Requiring O.T. Treatment: Deficits requiring O.T. treatment needs: ADL/self-care;Balance;Endurance;Functional mobility;IADL;Safety (08/20/23835) Goals: Dressing: Upper: independent (pt does 100%). Lower: independent (pt does 100%). Transfers with: Toilet: modified independent (with device or slow). Functional Ambulation: Assistive Device: rolling walker. Demonstrates endurance at good. Demonstrates standing balance at: Good . Goal Time Frame: 1-3 tx sessions Assessment: Patient pleasant and cooperative. Patient presents with a decline in functional activity tolerance, decreased independence with transfers, decreased knowledge, decreased UB & LB bathing and dressing. Patient completed recliner and toilet transfer with Min A and also educated on managing O2 tubing during mobility which she was Min A. Patient with poor activity tolerance and educated on pursed lip breathing. Toileting Min A and cues for energy conservation. Would consider home with post-acute care services which may include outpatient therapy or home health. The level of care will be determined in collaboration with the patient, family/caregiver, and care team members. Treatment Plan: Safety, Bed mobility training, Functional Ambulation, Transfer training, Upper extremity strengthening, Balance activities, ADL training , and Endurance Anticipated Frequency (on eval): 1 to 3 times per week (08/20/23835) AM-PAC Help From Another Person Eating Meals: None (08/20/23835) Help From Another Person Taking Care of Personal Grooming: A little (08/20/23835) Help From Another Person To Put On/Take Off Upper Body Clothing: A little (08/20/23835) Help From Another Person To Put On/Take Off Lower Body Clothing: A lot (08/20/23835) Help From Another Person Toileting: A little (08/20/23835) Help From Another Person Bathing: A lot (08/20/23835) OT AM-PAC Score: 17 (08/20/23835) OT AM-PAC t-Scale Score: 37.26 (08/20/23835) HLM (Highest Level of Mobility) Goal: Level 6 walk 10 steps or more (08/20/23724) A portion of this AM-PAC assessment not scored based on functional assessment due to full ADL not assessed upon evaluation; rather clinical decision making utilized based on current findings and/or prior level of function. Please refer to future AM-PAC calculations of functional ability as they become available. Evaluation Time * Bre Jaramillo, PT - 08/20/2023 7:39 AM ESTAssociated Order(s): ADULT PHYSICAL THERAPY CONSULT IP GENERAL EVALUATION - Physical Therapy [address] [address] Name: Maria Luisa Recinos Location: [facility] MH2 ACU-221/01 Date: 08/20/2023 Time: 7:52 AM Maria Luisa Recinos is a/an 87 year old female. Patient Status: Inpatient Insurance: Payor: MEDICARE Plan: MEDICARE A AND B Product Type: *No Product type* Payor: [facility] [place] Plan: [employer] 65 MEDICARE SUPPLEMENT Product Type: *No Product type* Patient Seen: at bedside, nursing cleared patient for therapy Patient Identified By: Name, ID Band and Date Diagnosis: respiratory failure, acute (08/20/23724) Status of treatment: Evaluation completed (08/20/23724) Orders: PT evaluation and treatment (08/20/23724) Weight Bearing Status: Weight bearing as tolerated (08/20/23724) Precautions: Alarms;Falls;Oxygen;Safety (08/20/23724) Total Treatment Time--free text: 14 (08/20/23724) Past Medical History: Past Medical History: Diagnosis Date AAA (abdominal aortic aneurysm) (HCC) Graves disease Hypertrophic cardiomyopathy (HCC) Mixed hyperlipidemia Nonrheumatic mitral valve stenosis Primary hypertension Past Surgical History: Past Surgical History: Procedure Laterality Date APPENDECTOMY W/OTHER PROCEDURE CORONARY ANGIOGRAPHY W/LEFT HEART CATH Right 10/04/2021 CORONARY ANGIOGRAPHY W/LEFT HEART CATH performed by Rodri Jacobs MD at [facility];W/HYSTERECTOMY AR CHOLECYSTECTOMY Subjective: Pt resting comfortably in bed and is pleasant and cooperative this am. Agreeable to therapy evaluation and eager to get up and moving. Social History/Disposition Lives with: Alone (08/20/23724) Assistance available: Yes (08/20/23724) Dwelling type: Single story home (08/20/23724) Entry steps: 1 (08/20/23724) Inside steps: None (08/20/23724) Bedroom location: 1st floor (08/20/23724) Bath location: 1st floor full bath (08/20/23724) Prior Level of Function Reported by: Patient (08/20/23724) Ambulation: Ambulatory without device (08/20/23724) Devices at home: Grab bars;Rolling walker;Shower chair;Straight cane (08/20/23724) Observations Consciousness: Alert (08/20/23724) Orientation: Oriented times 4 (08/20/23724) Psychosocial: Patient can communicate basic needs;Patient can converse in a social setting (08/20/23724) Sitting Posture: Forward head;Rounded shoulders (08/20/23724) Standing Posture: Forward head;Rounded shoulders (08/20/23724) Pain: No complaints of pain Range of Motion Range of Motion: WFL (08/20/23724) Strength Assessment Strength Assessment: Deficits noted (08/20/23724) WNL, except: LLE;RLE (08/20/23724) LLE: Hip;4/5 (08/20/23724) RLE: Hip;4/5 (08/20/23724) P.T. Bed Mobility Supine-Sit: Supervision (08/20/23724) Sit-Supine: Not Tested (08/20/23724) Transfers Sit-Stand: Contact Guard (08/20/23724) Stand-Sit: Contact Guard (08/20/23724) Ambulation: Distance ambulated (feet): Pt ambulated approx 50' around room. Slightly wider DONTE due to some unsteadiness intially but otherwise slow steady pace. Assistive Device: No device Assist: Contact Guard with cues for safety with turns due to oxygen line Balance Sit (Static): Good (08/20/23724) Sit (Dynamic): Good (08/20/23724) Stand (Static): Fair (08/20/23724) Stand (Dynamic): Fair (08/20/23724) Patient and or Family Goal(s): to get well and to return home Patient Education Review of Precautions: Safety;Fall (08/20/23724) Safety Awareness: Patient verbalizes insight of current deficits;Patient demonstrates carryover of insight during functional tasks;Patient can communicate basic needs (08/20/23724) Preferred learning method: Combination (08/20/23724) Barriers to learning: None (08/20/23724) Method of Education: Verbalized to patient (08/20/23724) Topic of Education: Breathing techniques, Safety with mobility, Goals/plan of care, Use of assistive device, and Fall prevention Method of Education: Verbal discussion and explanation provided to patient: verbalized understanding and or agreement of this information and demonstrated the exercise and or task Treatment Provided: Evaluation Moderate Complexity 14 minutes - 25338: Patient was cooperative, pleasant, and alert during treatment session. Moderate complexity evaluation performed and 1-2 personalfactors or comorbidities were identified that will impact plan of care, including lives alone at home and cardiac history. Patient presents with limitations in strength, transfers, gait, elevations, balance, endurance, and safety, which will impact plan of care. These limitations will be addressed by the goals set for this patient. Alarm Status Patient positioned in: Chair (08/20/23724) With: Pressure pad alarm intact and functioning and call leon in reach (08/20/23724) Treatment Status: Treatment at bedside (08/20/23724) Goals: Demonstrate Transfers with: Sit to stand: independent (pt does 100%) Stand to sit: independent (pt does 100%) Demonstrate Ambulation: assistive device: no device or cane as needed distance in feet: 200 level of assistance on level surface: modified independent (with device or slow) Demonstrate Stairclimbing: Number of steps: 4, two rails, and Level of Assistance: supervision (with cues) Time Frame: 1-3 days Assessment: Maria Luisa is an 87 year old female admitted with acute respiratory failure. Pt was pleasantand cooperative and oriented x4 for therapy evaluation this am. Pt denies pain and reports breathing has been better this morning. Overall strength good but noted some weakness in bilateral hips. Bedmobility performed with supervision. Transfers sit to stand from bed CGA. Ambulation in room without device CGA approx 50' before seated rest needed. Pt on 2L oxygen and 91% after ambulation. Pt taught on pursed lip breathing. Will benefit from continued therapy to address above deficits and maximize mobility. Pt would like to be able to return home without the oxygen need. Would consider home with post-acute care services which may include outpatient therapy or home health. The level of care will be determined in collaboration with the patient, family/caregiver, and care team members. Deficits requiring P.T. treatment needs: Balance;Weakness;Endurance;Safety;Mobility (08/20/23724) Equipment Needs: Treatment Plan: Transfer training, Gait training, Elevation training, and Balance activities Anticipated Frequency (on eval): 1 to 3 times per week (08/20/23 0725) AM PAC Score with Stairs: 20 0725-0739am documented in this encounter Nursing Notes * Amanda Osman, RN - 08/25/2023 2:41 PM EST VIRTUAL RN [facility] [id number] [facility] [id number] Name: Maria Luisa Recinos Location: [facility] MH2 ACU-221/ Date: 08/25/2023 Time: 2:41 PM I completed the Discharge Navigator. The patient was in the hospital. I was in a private office space at a [facility] location. After connecting through [employer], the patient was identified by name and date of and / or wristband checked. Patient (or authorized legal insurance verification representative) was then in formed that this was a Virtual Nurse visit and was being conducted confidentially over secure lines. My office door was closed. No one else was in the room with me. Patient acknowledged consent and understanding of privacy and security of the Virtual Nurse visit. I presented the opportunity for thepatient or authorized legal insurance verification representative to ask any questions regarding the visit today. The patient or authorized legal insurance verification representative agreed to participate. Discharge instructions reviewed with pt and daughter. Follow up appointments medications to take and those to stop at least temporally until seen by PCP. Has walker and oxygen. Daughter has info to call [employer] when home for oxygen delivery.CHF teaching reviewed daily weight, fluid and medications. * Hugo Smith RN - 08/23/2023 5:[address] Sarah aware of BP of 98/56, stated to hold lasix * Hugo Smith RN - 08/23/2023 11:38 AM EST Parul Edward PAC aware of manual BP of 80/64 and that patient states she feels tired. * Lukasz Salinas LPN - 08/21/2023 5:53 PM EST 1438- Pt complained with some light headness and stated she felt like she was gong to pass out. 1438- BP was checked and was 89/55 as normal BP is 120s/70s 1440-BP checked again and was 82/44 1444- Notified provider and 500cc bolus was ordered and started. 1500- IV infiltrated, waited until new IV placement was done. 1736-BP rechecked (85/43) still states she feels a little light headed but not as much as she did pre bolus, Provider notified. * Tania Harrison RN - 08/19/2023 3:25 PM EST Dual Licensed Skin Assessment completed by Leidy Wang LPn and Sophie Harrison RN. The patient is/has a N/A Skin Breakdown (includes non blanchable erythema): Yes. Wound Type: Moisture associated skin damage/incontinent related skin damage, location intergluteal cleft pink with breakdown Wound Ostomy Nurse Notified: No - care per ordered treatment Nursing interventions: Barrier cream documented in this encounter ED Notes * Viviane Marcus RN - 08/19/2023 12:38 PM EST Patient was diagnosed with covid Jul 30 and admitted to the hospital. The patient has had coughing and shortness of breath since then, but started feeling worse this morning. Their at home pulse ox was reading 89%. * De Faith DO - 08/19/2023 12:35 PM EST HISTORY OF PRESENT ILLNESS Maria Luisa Recinos is a 87 year old female who presents to the ED for evaluation of Short of Breath. The patient was seen at 08/19/23 1234. 87-year-old female presenting to the emergency department with persistent shortness of breath. She was recently discharged from this same facility for acute hypoxic respiratory failure secondary to COVID. She states that primary care prescribed her oxygen at homeyesterday, has not had it delivered yet. She states that she has baseline shortness of breath that has been getting progressively worse over the past several weeks. She has orthopnea, use a wedge andpillows to help sleep at night, reports a persistent dry cough. She denies any fevers chills, nausea or vomiting, diarrhea. She denies any chest pain, diaphoresis. She also reports that she does haveswelling in her bilateral lower extremities which is new for her. She has been taking her torsemideas instructed. The patient's allergies, past history, and medications were reviewed. PHYSICAL EXAM Initial Vitals (see all): BP 147/88 | Pulse 67 | Resp 16 | Temp 98.1 | O2 89 %, Room Air, None | Weight 89.7 kg | Height 154.9 cm | BMI 37.37 kg/m2 Initial Pain Assessment (see all): 1 (mild pain)/10, location: When coughing ([facility] Adult Scale 0-10) Physical Exam Vitals and nursing note reviewed. Constitutional: General: She is not in acute distress. Appearance: Normal appearance. She is ill-appearing. She is not toxic-appearing or diaphoretic. HENT: Head: Normocephalic and atraumatic. Right Ear: Tympanic membrane, ear canal and external ear normal. Left Ear: Tympanic membrane, ear canal and external ear normal. Nose: Nose normal. Mouth/Throat: Mouth: Mucous membranes are moist. Pharynx: Oropharynx is clear. Posterior oropharyngeal erythema (Mild erythema noted of the posterior soft palate, posterior oropharynx clear) present. No oropharyngeal exudate. Eyes: Extraocular Movements: Extraocular movements intact. Pupils: Pupils are equal, round, and reactive to light. Cardiovascular: Rate and Rhythm: Normal rate and regular rhythm. Comments: Pitting edema of the lower extremities bilaterally to the level of the knee Pulmonary: Effort: Pulmonary effort is normal. No respiratory distress. Breath sounds: No stridor. Wheezing (Slight diffuse expiratory wheezing noted in the middle and superior villatoro bilaterally) and rales (Slight crackles in the bases bilaterally) present. No rhonchi. Comments: Tachypneic despite appropriate saturation on room air Abdominal: General: Bowel sounds are normal. Palpations: Abdomen is soft. Tenderness: There is no abdominal tenderness. There is no guarding or rebound. Hernia: No hernia is present. Musculoskeletal: Cervical back: Normal range of motion. Lymphadenopathy: Cervical: No cervical adenopathy. Skin: General: Skin is warm and dry. Capillary Refill: Capillary refill takes 2 to 3 seconds. Neurological: Mental Status: She is alert and oriented to person, place, and time. Psychiatric: Mood and Affect: Mood normal. Behavior: Behavior normal. PROCEDURES AND TREATMENTS ED Orders | ED Results MEDICAL DECISION MAKING Nursing notes and vital signs were reviewed. ED consults were placed. ED Course as of 08/19/23 1530 Sat Aug 19, 2023 1236 Vitals reviewed, significant for hypoxia, saturating 89% on room air. Afebrile. [SHERICE] 1248 EKG Reviewed and interpreted by me demonstrates normal sinus rhythm with a ventricular rate of 65 beatsper minute. There is left axis deviation. Intervals are intact. No evidence of acute ischemic changes appreciated. When compared to prior study dated 07/30/2023, generally unchanged. [SHERICE] 1341 XR Chest 1 View IMPRESSION: Interstitial lung disease with probable superimposed pneumonia [SHERICE] 1341 aPTT: 36 [SHERICE] 1342 Blood Gas, Venous(!) Unremarkable [SHERICE] 1343 Chest x-ray shows likely pneumonia by my interpretation. [DM] 1343 INR(!): 1.3 [DM] 1343 aPTT: 36 [DM] 1351 CBC with WBC Differential(!) No leukocytosis, no anemia, platelets WNL [SHERICE] 1357 Troponin T, High Sensitivity(!): 26 Consistent with previous [SHERICE] 1403 BNP, NT-Pro(!): 9,805 Moderate elevated from previous, already provided with 40 mg IV Lasix [SHERICE] 1404 Comprehensive Metabolic Panel(!) Renal function improved from previous hyponatremia and hyperchloremia. Mild hypoalbuminemia [SHERICE] 1418 Respiratory Pathogen Panel, PCR Negative [SHERICE] 1423 Will discuss with hospitalist regarding admission at this time. [SHERICE] [address] Tim Todd for further medical management. [SHERICE] ED Course User Index [DM] De Faith DO [SHERICE] Perico Jha, Wilson Kc PA-C Differential Diagnoses Based on my history, physical exam, and evaluation, the differential includes, but is not limited, to the following diagnoses: ACS, CHF, respiratory failure, pneumonia. HPI, exam, ED course as above. 87-year-old female presenting to the emergency department with worsening dyspnea on exertion and shortness of breath. On exam she is hemodynamically stable, afebrile, slightly hypoxic, room air tachypneic. She was provided oxygen supplementation with 2 L nasal and hertachypnea improved. Exam significant for slight central peripheral fluid overload as well as diffuse expiratory throughout the middle superior lung villatoro bilaterally. Laboratory studies including venous gas, CBC, troponin largely unremarkable. BNP significant for elevation of 9800, worsened when compared to previous 2 weeks ago. Provided with 40 mg Lasix IV in the emergency department and initiated on empiric therapy for community-acquired pneumonia as chest x-ray demonstrates the same. RVP negative. Case was discussed with attending hospitalist, Dr. Tim Todd, who accepted the patient into his care for further medical management. Patient remained stable under my care and agreed with this disposition. Amount and/or Complexity of Data Reviewed Labs: ordered. Decision-making details documented in ED Course. Radiology: ordered. Decision-making details documented in ED Course. ECG/medicine tests: ordered. Decision-making details documented in ED Course. Risk Prescription drug management. Decision regarding hospitalization. Clinical Impressions SOB (shortness of breath) Respiratory failure (HCC) Pneumonia due to infectious organism, unspecified laterality, unspecified part of lung Disposition Admitted. I discussed the management of this patient with the admitting provider and I made a decision to admit the patient. Admission Order Ordered Status . 08/19/23 1426 Admit for Inpatient Services (incl ZPO) ONCE Completed 08/19/23 1425 Admit for Inpatient Services (incl ZPO) ONCE Completed De Faith was the attending physician who supervised the care of this patient. [place] Jr PAZulemaC ATTENDING ATTESTATION I have seen and examined this patient on the 08/19/2023 visit. I have discussed the patient's management with the provider listed above and agree with the note, findings, and plan of care. I personally made/approved the management plan and take responsibility for patient management. My independent interpretation: Chest x-ray shows interstitial edema with likely superimposed pneumonia by my interpretation. Moderate elevation in BNP. EKG shows sinus rhythm with otherwise normal intervals and left axis deviation. No acute signs of ischemia noted by my interpretation. My discussion of management: Patient initially with increased work of breathing and tachypnea. Requiring additional oxygen. Chest x-ray showed likely interstitial lung disease with superimposed pneumonia by my interpretation. No significant signs of heart failure otherwise. Given hypoxia and symptoms internal Medicine contacted for admission documented in this encounter Miscellaneous Notes * Ancillary Progress Note - Gricel Martinez, RN - 08/25/2023 1:14 PM EST CARE MANAGEMENT - ADULT DISCHARGE NOTE [facility] [address] [facility] [id number] Name: Maria Luisa Recinos Location: [address]- Date: 08/25/2023 Time: 1:14 PM The following coordination of care and discharge plan has been coordinated with the care team, patient, family and/or caregiver according to the patients needs and preferences. Discharge Discharge Second Notice Important Message from Medicare delivered: Yes (08/25/23 1300) Date Delivered: 08/23/23 (08/25/23 1300) Retain copy in EHR: Yes (08/25/23 1300) Was Caregiver/Family/Facility contacted regarding discharge: Yes (08/25/23 1300) Discharge Transportation: Family/Friends drive (08/25/23 1300) Date of scheduled discharge transportation: 08/25/23 (08/25/23 1300) Time of scheduled discharge transportation: 1400 (08/25/23 1300) Patient declined post-hospital transition of care recommendation: N/A (08/25/23 1300) Final Discharge Plan (Complete only at time of Discharge): Home with Services (08/25/23 1310) Durable Medical Equipment - Admitted Since 08/19/2023 Service Provider Selected Services Address Phone Fax Patient Preferred Last Updated [facility] Home Oxygen And Medical Supplies Durable Medical Equipment [address], [place] [address] -- Gricel Martinez, RN 08/25/2023 1311 Home Medical Care - Admitted Since 08/19/2023 Service Provider Selected Services Address Phone Fax Patient Preferred Last Updated [facility] [employer] [facility] [address], [place] [address] -- Gricel Martinez, RN 08/25/2023 1313 Per discussion with hospitalist, pt is slated to DC home this date with new needs identified by theTX Team for grant writer to arrange. Although there was a prehospital order for oxygen, it had been denied. Today I spoke with [employer] [facility] and resent a new hospital discharge order so they can resubmit to Medicare. Patient was given a [employer] walker, DANY of pt choice and order faxed to [employer]. Pt describes her home DME prior to admission as being a RW/Cane/SC and is expected to resume upon DC. Pt is aware of the DC plans and is agreement with the same. Color Worker will continue to follow for any additional DC needs not yet identified. * Respiratory Progress Note - Krystle Cordova RRT - 08/25/2023 12:37 PM EST Pt needs 2L at rest and on exertion. Spo2 on room air at rest 84% spo2 on 1L o2 at rest 87% spo2 on2L at rest 93%. Spo2 on 2L on exertion 91 to 94% * Pt Handout (on AVS) - Amanda Osman RN - 08/25/2023 12:19 PM EST Images from the original note were not included. [id number] Benzonatate Oral Capsule Brands: Tessalon, Tessalon Perles, Zonatuss Uses For cough. Instructions Swallow the medicine without crushing or chewing it. This medicine may be taken with or without food. Store at room temperature away from heat, light, and moisture. Do not keep in the bathroom. Drug interactions can change how medicines work or increase risk for side effects. Tell your healthcare providers about all medicines taken. Include prescription and enur-bqu-expfntx medicines, vitamins, and herbal medicines. Speak with your doctor or pharmacist before starting or stopping any medicine. Cautions Tell your doctor and pharmacist if you ever had an allergic reaction to a medicine. Do not use the medication any more than instructed. Your ability to stay alert or to react quickly may be impaired by this medicine. Do not drive or operate machinery until you know how this medicine will affect you. If you drink more than a few alcoholic beverages each day, ask your doctor whether you should be onthis medicine. It is unknown if this medicine passes into breast milk. Ask your doctor before . During , this medicine should be used only when clearly needed. Talk to your doctor about the risks and benefits. Do not share this medicine with anyone who has not been prescribed this medicine. Side Effects The following is a list of some common side effects from this medicine. Please speak with your doctor about what you should do if you experience these or other side effects. constipation dizziness headaches nausea A few people may have an allergic reaction to this medicine. Symptoms can include difficulty breathing, skin rash, itching, swelling, or severe dizziness. If you notice any of these symptoms, seek medical help quickly. Extra Please speak with your doctor, nurse, or pharmacist if you have any questions about this medicine. [email or web address] IMPORTANT NOTE: This document tells you briefly how to take your medicine, but it does not tell youall there is to know about it. Your doctor or pharmacist may give you other documents about your medicine. Please talk to them if you have any questions. Always follow their advice. There is a more complete description of this medicine available in [place]an. Scan this code on your smartphone or tablet or use the web address below. You can also ask your pharmacist for a printout. If you have any questions, please ask your pharmacist. The display and use of this drug information is subject to Terms of Use. Copyright(c) 2022 [employer]. 8493-2666 [employer]. All rights reserved. This information is not intended as a substitute for professional medical care. Always follow your healthcare professional's instructions. * Pt Handout (on AVS) - Zulma Springer [facility] - 08/25/2023 8:58 AM EST Images from the original note were not included. [id number] Midodrine Oral Tablet Uses For low blood pressure. Instructions This medicine may be taken with or without food. This medicine will work best if you take it at about the same time every day. Try to avoid taking the medicine at bedtime. Space doses at least 4 hours apart unless instructed otherwise. Store at room temperature away from heat, light, and moisture. Do not keep in the bathroom. It is important that you keep taking each dose of this medicine on time even if you are feeling well. If you forget to take a dose on time, take it as soon as you remember. If it is almost time for thenext dose, do not take the missed dose. Return to your normal schedule. Do not take 2 doses at one time. Drug interactions can change how medicines work or increase risk for side effects. Tell your healthcare providers about all medicines taken. Include prescription and uslp-rvu-qradzln medicines, vitamins, and herbal medicines. Speak with your doctor or pharmacist before starting or stopping any medicine. Keep all appointments for medical exams and tests while on this medicine. Cautions Tell your doctor and pharmacist if you ever had an allergic reaction to a medicine. Do not use the medication any more than instructed. This medicine may cause dizziness or fainting, especially after exercising or in hot weather. Be very careful when standing or sitting up quickly. This medicine may cause dangerous increase in blood pressure when lying down. Do not take medicine less than four hours before bedtime or nap. Your ability to stay alert or to react quickly may be impaired by this medicine. Do not drive or operate machinery until you know how this medicine will affect you. Please check with your doctor before drinking alcohol while on this medicine. It is unknown if this medicine passes into breast milk. Ask your doctor before . This medicine can hurt a new baby in the womb. If you become while on this medicine, tell your doctor immediately. Your doctor may switch you to a different medicine. Do not share this medicine with anyone who has not been prescribed this medicine. Side Effects The following is a list of some common side effects from this medicine. Please speak with your doctor about what you should do if you experience these or other side effects. agitated feeling or trouble sleeping dizziness or drowsiness dry mouth muscle cramps skin tingling stomach pain increased urinary frequency Call your doctor or get medical help right away if you notice any of these more serious side effects: chest pain chills confusion throbbing in the ear fainting severe or persistent headache fast, irregular, or slow heartbeat high blood pressure nervousness difficulty or discomfort urinating blurring or changes of vision weakness A few people may have an allergic reaction to this medicine. Symptoms can include difficulty breathing, skin rash, itching, swelling, or severe dizziness. If you notice any of these symptoms, seek medical help quickly. Extra Please speak with your doctor, nurse, or pharmacist if you have any questions about this medicine. [email or web address] IMPORTANT NOTE: This document tells you briefly how to take your medicine, but it does not tell youall there is to know about it. Your doctor or pharmacist may give you other documents about your medicine. Please talk to them if you have any questions. Always follow their advice. There is a more complete description of this medicine available in [place]an. Scan this code on your smartphone or tablet or use the web address below. You can also ask your pharmacist for a printout. If you have any questions, please ask your pharmacist. The display and use of this drug information is subject to Terms of Use. Copyright(c) 2022 [employer]. 1471-9910 [employer]. All rights reserved. This information is not intended as a substitute for professional medical care. Always follow your healthcare professional's instructions. * Pt Handout (on AVS) - Zulma Springer RPh - 08/25/2023 8:58 AM EST Images from the original note were not included. Furosemide - Video To view the video go to this web address: https://bit.ly/[email or web address] Or, scan this QR code with your smart phone 2022 [employer]. All Rights Reserved. * Pt Handout (on AVS) - Zulma Springer RPh - 08/25/2023 8:58 AM EST Images from the original note were not included. [id number] Furosemide Oral Tablet Brands: Lasix Uses This [...] about all your medicines. Include prescription and zqhk-kem-iyvxcqmmepohxztx, vitamins, and herbal medicines. Do not suddenly [...] you have any questions about this medicine. [email or web address] IMPORTANT NOTE: This document tells you briefly how to take your medicine, but it does not tell youall there is to know about it. Your doctor or pharmacist may give you other documents about your medicine. Please talk to them if you have any questions. Always follow their advice. There is a more complete description of this medicine available in [place]an. Scan this code on your smartphone or tablet or use the web address below. You can also ask your pharmacist for a printout. If you have any questions, please ask your pharmacist. The display and use of this drug information is subject to Terms of Use. Copyright(c) 2022 [employer]. All rights reserved. This information is not intended as a substitute for professional medical care. Always follow your healthcare professional's instructions. * Pt Handout (on AVS) - Amanda Osman RN - 08/25/2023 7:26 AM EST Images from the original note were not included. [id number] Midodrine Oral Tablet Uses For low blood pressure. Instructions This medicine may be taken with or without food. This medicine will work best if you take it at about the same time every day. Try to avoid taking the medicine at bedtime. Space doses at least 4 hours apart unless instructed otherwise. Store at room temperature away from heat, light, and moisture. Do not keep in the bathroom. It is important that you keep taking each dose of this medicine on time even if you are feeling well. If you forget to take a dose on time, take it as soon as you remember. If it is almost time for thenext dose, do not take the missed dose. Return to your normal schedule. Do not take 2 doses at one time. Drug interactions can change how medicines work or increase risk for side effects. Tell your healthcare providers about all medicines taken. Include prescription and wmfd-wck-orvucda medicines, vitamins, and herbal medicines. Speak with your doctor or pharmacist before starting or stopping any medicine. Keep all appointments for medical exams and tests while on this medicine. Cautions Tell your doctor and pharmacist if you ever had an allergic reaction to a medicine. Do not use the medication any more than instructed. This medicine may cause dizziness or fainting, especially after exercising or in hot weather. Be very careful when standing or sitting up quickly. This medicine may cause dangerous increase in blood pressure when lying down. Do not take medicine less than four hours before bedtime or nap. Your ability to stay alert or to react quickly may be impaired by this medicine. Do not drive or operate machinery until you know how this medicine will affect you. Please check with your doctor before drinking alcohol while on this medicine. It is unknown if this medicine passes into breast milk. Ask your doctor before . This medicine can hurt a new baby in the womb. If you become while on this medicine, tell your doctor immediately. Your doctor may switch you to a different medicine. Do not share this medicine with anyone who has not been prescribed this medicine. Side Effects The following is a list of some common side effects from this medicine. Please speak with your doctor about what you should do if you experience these or other side effects. agitated feeling or trouble sleeping dizziness or drowsiness dry mouth muscle cramps skin tingling stomach pain increased urinary frequency Call your doctor or get medical help right away if you notice any of these more serious side effects: chest pain chills confusion throbbing in the ear fainting severe or persistent headache fast, irregular, or slow heartbeat high blood pressure nervousness difficulty or discomfort urinating blurring or changes of vision weakness A few people may have an allergic reaction to this medicine. Symptoms can include difficulty breathing, skin rash, itching, swelling, or severe dizziness. If you notice any of these symptoms, seek medical help quickly. Extra Please speak with your doctor, nurse, or pharmacist if you have any questions about this medicine. [email or web address] IMPORTANT NOTE: This document tells you briefly how to take your medicine, but it does not tell youall there is to know about it. Your doctor or pharmacist may give you other documents about your medicine. Please talk to them if you have any questions. Always follow their advice. There is a more complete description of this medicine available in [place]an. Scan this code on your smartphone or tablet or use the web address below. You can also ask your pharmacist for a printout. If you have any questions, please ask your pharmacist. The display and use of this drug information is subject to Terms of Use. Copyright(c) 2022 [employer]. 0101-3830 [employer]. All rights reserved. This information is not intended as a substitute for professional medical care. Always follow your healthcare professional's instructions. * Care Plan - Linda Harmon, RN - 08/25/2023 6:14 AM EST Clinical Goal(s): Pateint flavio maintain O2 sat per ordered parameters throughout shift. (08/24/23 2300) Possible barriers to meeting goal(s)/advancing plan of care: O2 desaturation on room air, oxygen dependent. Stability of the patient: Moderately stable - low risk of patient condition declining or worsening Summary regarding today's goal(s): Met: Patient remains on O2 at 2L/min to maintain sats within ordered parameters. Recommendations: Continue POC. * Ancillary Progress Note - Rakesh Sage, SANJAY - 08/24/2023 12:13 PM EST PROGRESS NOTE - Occupational Therapy [facility] [address] [facility] [address] Name: Maria Luisa Recinos [address] Date: 08/24/2023 Time: 12:13 PM Maria Luisa Recinos is a 87 year old female. Patient Status: Inpatient Insurance: Payor: MEDICARE Plan: MEDICARE A AND B Product Type: *No Product type* Payor: [facility] ([employer]) Plan: [place] MEDICARE SUPPLEMENT Product Type: *No Product type* Patient Seen: at bedside, nursing cleared patient for therapy Patient Identified By: Name, ID Band and Date Diagnosis: Respitory failure acute (08/24/231007) Status of treatment: Treatment completed (08/24/231007) Orders: OT evaluation and treatment (08/24/231007) Weight Bearing Status: Weight bearing as tolerated (08/24/231007) Precautions: Alarms;Falls;Oxygen (08/24/231007) Total Treatment Time: 23 (08/24/231007) Subjective: patient states she is feeling much better today. She does look better, and her voice isstronger today. Pain: No complaints of pain Observations Consciousness: Alert (08/20/23 08) Orientation: Oriented times 4 (08/20/23835) Sitting posture: Rounded shoulders;Forward head (08/20/23 0836) Standing posture: Rounded shoulders;Forward head (08/20/23835) Other Findings Endurance: Standing tolerance;Poor (fatigues easily, only able to tolerate limited mobility and activity on eval) (08/20/23835) Current Functional Status: Activities of Daily Living: Self Care Toileting: Modified Independent (08/24/23 1008) Dressing Upper Body: Modified Independent (08/21/23 1349) Lower Body: Minimal Assistance (08/21/23 1349) Functional Ambulation Assistive Device: Rolling walker (08/24/238) Distance in feet:: 80 (08/24/231007) Level of Assistance: Supervision (Please Comment) (08/24/23 100) Bed Mobility Supine-Sit: Modified Independent (08/21/23 1349) Sit-Supine: Modified Independent (08/21/23 1349) OT Transfers Sit-Stand: Modified Independent (08/24/231007) Stand-Sit: Modified Independent (08/24/231007) Toilet: Modified Independent (08/24/231007) Balance Sit (Static): Good (08/24/231007) Sit (Dynamic): Good (08/24/231007) Stand (Static): Good (08/24/231007) Stand (Dynamic): Good (08/24/231007) Patient Education Education Topic: Role of OT;Deep breathing techniques (08/20/23835) Review of Precautions: Fall (08/20/23835) Alarm Status Patient positioned in: Chair (08/24/231007) With: Personal alarm intact and functioning with call leon in reach (08/24/231007) Treatment Provided: Therapeutic Activity: 23 minutes Deficits requiring O.T. treatment needs: ADL/self- care;Balance;Endurance;Functional mobility;IADL;Safety (08/24/231007) Assessment: patient did very well ambulating to the bathroom, toileting herself, and completing grooming tasks. She requested to ambulate more after this. Plan: Functional Ambulation, Transfer training, ADL training, and Endurance Anticipated Frequency (on eval): 1 to 3 times per week (08/24/231007) Equipment Equipment used in Therapy: Rolling walker (08/24/231007) AM-PAC Help From Another Person Eating Meals: None (08/24/231007) Help From Another Person Taking Care of Personal Grooming: None (08/24/231007) Help From Another Person To Put On/Take Off Upper Body Clothing: None (08/24/231007) Help From Another Person To Put On/Take Off Lower Body Clothing: A little (08/24/231007) Help From Another Person Toileting: None (08/24/231007) Help From Another Person Bathing: A little (08/24/231007) OT AM-PAC Score: 22 (08/24/231007) OT AM-PAC t-Scale Score: 47.1 (08/24/231007) HLM (Highest Level of Mobility) Goal: Level 7 walk 25 feet or more (08/24/23856) Treatment time 23 mins * Ancillary Progress Note - Bre Jaramillo, PT - 08/24/2023 9:14 AM EST PROGRESS NOTE - Physical Therapy [facility] [address] [facility] [address] Name: Maria Luisa Recinos Location: [address] Date: 08/24/2023 Time: 10:14 AM Maria Luisa Recinos is a/an 87 year old female. Patient Status: Inpatient Insurance: Payor: MEDICARE Plan: MEDICARE A AND B Product Type: *No Product type* Payor: [employer] [facility] ([employer]) Plan: [place] MEDICARE SUPPLEMENT Product Type: *No Product type* Patient Seen: at bedside, nursing cleared patient for therapy Patient Identified By: Name, ID Band and Date Diagnosis: respiratory failure, acute (08/24/23856) Status of treatment: Treatment completed (08/24/23856) Orders: PT evaluation and treatment (08/24/23856) Weight Bearing Status: Weight bearing as tolerated (08/24/23856) Precautions: Alarms;Falls;Oxygen;Safety (08/24/23856) Total Treatment Time--free text: 17 (08/24/23856) Subjective: Pt resting in chair upon arrival. Reports feeling better today. Pain: No complaints of pain P.T. Bed Mobility Supine-Sit: Not Tested (08/24/23856) Sit-Supine: Not Tested (08/24/23856) Transfers Sit-Stand: Supervision (08/24/23856) Stand-Sit: Supervision (08/24/23856) Ambulation: Distance ambulated (feet): 40'x2 in room with slow steady pace. Assistive Device: Rolling walker Assist: Supervision with assist for oxygen lines only Balance Sit (Static): Good (08/24/23856) Sit (Dynamic): Good (08/24/23856) Stand (Static): Good (08/24/23856) Stand (Dynamic): Good (08/24/23856) Patient and or Family Goal(s): to get well and to return home Topic of Education: Safety with mobility, Goals/plan of care, Use of assistive device, and Fall prevention Method of Education: Verbal discussion and explanation provided to patient: verbalized understanding and or agreement of this information and demonstrated the exercise and or task Treatment Provided: Gait Training 17 minutes: gait training with rolling walker Alarm Status Patient positioned in: Chair (08/24/23856) With: Pressure pad alarm intact and functioning and call leon in reach (08/24/23856) Patient Education Review of Precautions: Safety;Fall (08/24/23856) Safety Awareness: Patient verbalizes insight of current deficits;Patient demonstrates carryover of insight during functional tasks;Patient can communicate basic needs (08/24/23856) Preferred learning method: Combination (08/24/23856) Barriers to learning: None (08/24/23856) Method of Education: Verbalized to patient (08/24/23856) Assessment: Maria Luisa was seen bedside this am for skilled PT session. Pt initially was set to be seen 1-3x weekly but due to medical conditions her discharge was pushed and recommended to continue with services to improve overall function and safety. Increased to 3-5x weekly. Transfers sit to stand from chair supervision. Pt ambulated in room with RW 40'x2 with supervision, PT managed oxygen line only. Pt oxygen on 2L was 96% after activity. Pt mobility and safety progressing well and is ready fordischarge to home once she is medically ready. Recommended home based therapy services upon discharge and pt agreeable. Deficits requiring P.T. treatment needs: Balance;Weakness;Endurance;Safety;Mobility (08/24/23856) Equipment needs: Rolling walker (08/24/23856) Plan: Continue with current treatment plan established on evaluation. AM PAC Score with Stairs: 23 [id number] * Ancillary Progress Note - Alejandra Linn, LACEMAKER - 08/24/2023 8:08 AM EST PATIENT DRIVEN PROTOCOL - Respiratory Care Services [address] [address] Name: Maria Luisa Recinos Location: [place] [address] [address]01 Date: 08/24/2023 Time: 8:09 AM Patient Driven Protocol Summary: Re-evaluation . [...] . The patient will be re-evaluated: within 72 hours. The Triage Level is: (Assessment Score [...] greater than 3 days ago Assessment Score: 3 Patient Assessment Clinical Findings Respiratory Pattern: 0 [...] 35% Assessment Score: 3 Total Assessment Score: 6 Breath Sounds: Inspiratory and expiratory clear and diminished bilaterally.. Cough and Sputum: An effective cough produced no sputum... Vital Signs: Resp: 18 (08/24/23746) Pulse: 78 (08/24/23746) Temp: 36.6 C (97.9 F) (08/24/23729) BP: 118/68 (08/24/2337) SpO2: 95 % (08/24/23746) Primary Service: Hospitalists. Admitting Diagnosis: SOB (shortness of breath) [R06.02] Respiratory failure (HCC) [J96.90] Pulmonary Diagnosis: CHF. Prescriptions/Home Medications/Durable Medical Equipment: nebulizer, mdi, oxygen. Recommended New home medications/durable medical equipment/outpatient pulmonary/sleep referral none. * Pt Handout (on AVS) - Amanda Osman RN - 08/24/2023 7:29 AM EST Images from the original note were not included. [id number] Pneumonia (Adult) Pneumonia is an infection inside [...] you can't wash your hands, use hand wood machinist apprentice with at least 60% alcohol. Cover your [...] or don't get better Last Reviewed Date: 06/30/202119992899-4019 [employer]. All rights reserved. This information is not intended as a substitute for professional medical care. Always follow your healthcare professional's instructions. * Care Plan - Linda Harmon RN - 08/24/2023 2:44 AM EST Clinical Goal(s): O2 sat and BP will remain stable throughout the shift. (08/23/23 2300) Possible barriers to meeting goal(s)/advancing plan of care: poor fluid balance, rales bilaterally,weight gain, hypotension, and O2 dependence Stability of the patient: Moderately unstable - medium risk of patient condition declining or worsening Summary regarding today's goal(s): Met: Patient continues with fluid restrictions per orders. Maintaining O2 sat > 88% with O2 2L/min via NC. Urinary output is concentrated. Mild MADDOX. Lungs with rales bilaterally. SBP >100. Recommendations: Continue POC. * Care Plan - Hugo Smith RN - 08/23/2023 6:43 PM EST Clinical Goal(s): patient will have stable O2 sats (08/23/23 0712) Possible barriers to meeting goal(s)/advancing plan of care: Stability of the patient: Moderately stable - low risk of patient condition declining or worsening Summary regarding today's goal(s): met Recommendations: continue to monitor * Ancillary Progress Note - Rakesh Sage, OT - 08/23/2023 1:40 PM EST PROGRESS NOTE - Occupational Therapy [facility] [address] [facility] [address] Name: Maria Luisa Recinos Location: [place] [address] [address]U- Date: 08/23/2023 Time: 1:40 PM Maria Luisa Recinos is a 87 year old female. Patient Status: Inpatient Insurance: Payor: MEDICARE Plan: MEDICARE A AND B Product Type: *No Product type* Payor: [employer] [facility] ([employer]) Plan: [employer] MEDICARE SUPPLEMENT Product Type: *No Product type* Patient Seen: at bedside, nursing cleared patient for therapy Patient Identified By: Name, ID Band and Date Diagnosis: Respitory failure acute (08/23/231309) Status of treatment: Treatment completed (08/23/231309) Orders: OT evaluation and treatment (08/23/231309) Weight Bearing Status: Weight bearing as tolerated (08/23/231309) Precautions: Alarms;Falls;Oxygen (08/23/231309) Total Treatment Time: 20 (08/23/231309) Subjective: patient states she feels tired but was willing to do therapy Pain: No complaints of pain Observations Consciousness: Alert (08/20/23835) Orientation: Oriented times 4 (08/20/23835) Sitting posture: Rounded shoulders;Forward head (08/20/23835) Standing posture: Rounded shoulders;Forward head (08/20/23835) Other Findings Endurance: Standing tolerance;Poor (fatigues easily, only able to tolerate limited mobility and activity on eval) (08/20/23835) Current Functional Status: Activities of Daily Living: Dressing Upper Body: Modified Independent (08/21/23 1349) Lower Body: Minimal Assistance (08/21/23 1349) Functional Ambulation Assistive Device: Rolling walker (08/23/23 1310) Distance in feet:: 70 (08/23/231309) Level of Assistance: Supervision (Please Comment) (08/23/231309) Bed Mobility Supine-Sit: Modified Independent (08/21/23 1349) Sit-Supine: Modified Independent (08/21/23 134) OT Transfers Sit-Stand: Modified Independent (08/23/231309) Stand-Sit: Modified Independent (08/23/231309) Toilet: Modified Independent (08/21/23 134) Balance Sit (Static): Good (08/23/231309) Sit (Dynamic): Good (08/23/231309) Stand (Static): Good (08/23/231309) Stand (Dynamic): Good (08/23/231309) Patient Education Education Topic: Role of OT;Deep breathing techniques (08/20/23835) Review of Precautions: Fall (08/20/23835) Alarm Status Patient positioned in: Chair (08/23/231309) With: Personal alarm intact and functioning with call leon in reach (08/23/231309) Treatment Provided: Therapeutic Activity: 20 minutes Deficits requiring O.T. treatment needs: ADL/self- care;Balance;Endurance;Functional mobility;IADL;Safety (08/23/231309) Assessment: patient did well with transfers today. She was able to ambulate to the door and back, then to the bathroom to brush her hair and back. O2 checked several times, ranged from 91-94% on roomair. Plan: Functional Ambulation, Transfer training, ADL training, and Endurance Anticipated Frequency (on eval): 1 to 3 times per week (08/23/231309) Equipment Equipment used in Therapy: Rolling walker (08/23/231309) AM-PAC Help From Another Person Eating Meals: None (08/23/231309) Help From Another Person Taking Care of Personal Grooming: None (08/23/231309) Help From Another Person To Put On/Take Off Upper Body Clothing: None (08/23/231309) Help From Another Person To Put On/Take Off Lower Body Clothing: A little (08/23/231309) Help From Another Person Toileting: None (08/23/231309) Help From Another Person Bathing: A little (08/23/231309) OT AM-PAC Score: 22 (08/23/231309) OT AM-PAC t-Scale Score: 47.1 (08/23/231309) HLM (Highest Level of Mobility) Goal: Level 7 walk 25 feet or more (08/23/23 0712) Treatment time 20 mins * Ancillary Progress Note - Carmen Coleman, PT - 08/23/2023 1:40 PM EST PROGRESS NOTE - Physical Therapy [facility] [address] [facility] [address] Name: Maria Luisa Recinos Location: [facility]- Date: 08/23/2023 Time: 1:52 PM Maria Luisa Recinos is a/an 87 year old female. Patient Status: Inpatient Insurance: Payor: MEDICARE Plan: MEDICARE A AND B Product Type: *No Product type* Payor: [employer] [facility] [employer]) Plan: Hunch MEDICARE SUPPLEMENT Product Type: *No Product type* Patient Seen: at bedside, nursing cleared patient for therapy Patient Identified By: Name, ID Band and Date Diagnosis: respiratory failure, acute (08/23/231339) Status of treatment: Treatment completed (08/23/231339) Orders: PT evaluation and treatment (08/23/231339) Weight Bearing Status: Weight bearing as tolerated (08/23/23 134) Precautions: Alarms;Falls;Oxygen;Safety (08/23/23 134) Total Treatment Time--free text: 11 (08/23/23 134) Subjective: Maria Luisa was pleasant and agreeable to participating. She did note some fatigue from OT session. Pain: No complaints of pain P.T. Bed Mobility Supine-Sit: Not Tested (08/22/23 0758) Sit-Supine: Not Tested (08/22/23 0758) Transfers Sit-Stand: Supervision (08/23/23 134) Stand-Sit: Supervision (08/23/23 134) Ambulation: Distance ambulated (feet): 100 feet Assistive Device: Rolling walker Assist: Supervision Balance Sit (Static): Good (08/23/231339) Sit (Dynamic): Good (08/23/231339) Stand (Static): Good (08/23/231339) Stand (Dynamic): Good (08/23/231339) Patient and or Family Goal(s): to get well and to return home Topic of Education: Safety with mobility Method of Education: Verbal discussion and explanation provided to patient on current recommendations for walker: verbalized understanding and or agreement of this information Treatment Provided: Gait Training 11 minutes: gait training with rolling walker Alarm Status Patient positioned in: Chair (08/23/231339) With: Pressure pad alarm intact and functioning and call leon in reach (08/23/231339) Patient Education Review of Precautions: Safety;Fall (08/23/231339) Safety Awareness: Patient verbalizes insight of current deficits;Patient demonstrates carryover of insight during functional tasks;Patient can communicate basic needs (08/23/231339) Preferred learning method: Combination (08/23/231339) Barriers to learning: None (08/23/231339) Method of Education: Verbalized to patient (08/23/231339) Assessment: Maria Luisa was approached twice today with participation on the second attempt in the afternoon. She was on room air and demonstrated ability to transition sit to stand from recliner with rolling walker with supervision. She ambulated 100 feet with rolling walker with supervision with continuous step through pattern. While she demonstrated shortness of breath her oxygen saturation was 94% upon sitting on room air. With seated rest her breathing returned to baseline. She noted fatigue following this distance and declined further activity. She will benefit from continued PT while admitted to maximize independence with mobility and promote endurance. Would consider home with post- acute care services which may include outpatient therapy or home health. The level of care will be determined in collaboration with the patient, family/caregiver, and care team members. Deficits requiring P.T. treatment needs: Balance;Weakness;Endurance;Safety;Mobility (08/23/231339) Equipment needs: Rolling walker (08/23/231339) Plan: Continue with current treatment plan established on evaluation. AM PAC Score with Stairs: 23 13:40-13:51 * Ancillary Progress Note - CoyleMadai pan Yeni, RDN - 08/23/2023 9:36 AM EST CLINICAL NUTRITION ADULT RISK ASSESSMENT [facility] [address] [facility] [address] Name: Maria Luisa Recinos Location: [address] Date: 08/23/2023 Time: 9:36 AM How patient was identified (select 2): date and Name Maria Luisa Recinos is a 87 year old female being assessed for clinical nutrition risk related to reduced po and extended LOS Primary diagnosis: Principal Problem: Respiratory failure, acute (HCC) (POA: Yes) Active Problems: Essential hypertension with goal blood pressure less than 140/90 (POA: Yes) Dyslipidemia, goal to be determined (POA: Yes) Hypertrophic cardiomyopathy (HCC) (POA: Yes) Graves disease (POA: Yes) 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 Per patient appetite was good but the past 2 days has declined, has early satiety. Excessive fluid is likely causing her poor po intake. Patient is a + 1 edema both lower extremities. No chewing and or swallowing difficulties. Anthropometrics Measurements Admission weight (for dietitians): 92.7 kg - 204 lb 4.8 oz Height: 154.9 cm (5' 1") (08/19/23 1445) Weight: 92.7 kg (204 lb 4.8 oz) (08/23/23 0925) BMI: 37.38 (08/19/23 1445) Usual Body Weight or EDW for Dialysis Patients: 200 lb Diet: 1800 ml Fluid Restriction Heart Healthy, 2 gm Sodium Previously followed diet: Regular Food Allergies/Intolerances: None - food known Pertinent medications/vitamins/minerals/supplements: medications reviewed RISK FACTORS: Adult Energy Intake: Less than 75% of estimated energy requirement for greater than 7 days (moderate, acute illness). Interpretation of Weight Change: Change likely secondary to fluid Increase in weight. + 1 edema from baseline weight of 200 lb Skin: Intact - per skin integumentary and LDA avatar 08/23 NUTRITION RISK CATEGORY: Nutrition Risk Category: Low/Moderate (0-1 factors) Clinical Nutrition Recommendations: Diet: Continue current nutrition plan NUTRITION INTERVENTION/PLAN: Continue current care plan Will follow and adjust nutritional plan as medical condition requires. Please contact for change(s)in patient condition requiring earlier intervention. Madai Coyle RDN,LDN Clinical Dietitian II [facility] * Care Plan - Linda Harmon RN - 08/23/2023 4:10 AM EST Clinical Goal(s): Pateint will maintain fluid restriction per orders throughout shift. (08/22/23 2300) Possible barriers to meeting goal(s)/advancing plan of care: thirst Stability of the patient: Moderately stable - low risk of patient condition declining or worsening Summary regarding today's goal(s): Met: Patient is compliant with fluid restrictions. Patient can verbalize fluid amounts and verbalizes good understanding of fluid restriction status and amount. Recommendations: Continue POC. * Care Plan - Abena Saeed LPN - 08/22/2023 6:38 PM EST Clinical Goal(s): Patient will remain free from fall/injuries this shift (08/22/23 0731) Possible barriers to meeting goal(s)/advancing plan of care: Weakness, Low BP, O2 tubing Stability of the patient: Moderately stable - low risk of patient condition declining or worsening Summary regarding today's goal(s): Met: no falls/no injuries Recommendations: Ensure safety measures are in place * Respiratory Progress Note - Krystle Cordova RRT - 08/22/2023 2:43 PM EST Patient needs 2L at rest and on exertion. Spo2 on room air at rest 84% spo2 on 1L o2 86%. Spo2 on 2L o2 91%. Spo2 on 2L on exertion 91 to 93% * Ancillary Progress Note - Rakesh Sage, OT - 08/22/2023 10:56 AM EST PROGRESS NOTE - occupational therapy Service [address] [address] Name: Maria Luisa Recinos Location: [address] Date: 08/22/2023 Time: 10:56 AM Patient not seen, states she is too tired and fatigued. * Ancillary Progress Note - Bre Jaramillo, PT - 08/22/2023 8:11 AM EST PROGRESS NOTE - Physical Therapy [address] [address] Name: Maria Luisa Recinos Location: [address] Date: 08/22/2023 Time: 10:14 AM Maria Luisa Recinos is a/an 87 year old female. Patient Status: Inpatient Insurance: Payor: MEDICARE Plan: MEDICARE A AND B Product Type: *No Product type* Payor: [facility]) Plan: Hunch MEDICARE SUPPLEMENT Product Type: *No Product type* Patient Seen: at bedside, nursing cleared patient for therapy Patient Identified By: Name, ID Band and Date Diagnosis: respiratory failure, acute (08/22/23757) Status of treatment: Treatment completed (08/22/23757) Orders: PT evaluation and treatment (08/22/23757) Weight Bearing Status: Weight bearing as tolerated (08/22/23757) Precautions: Alarms;Falls;Oxygen;Safety (08/22/23757) Total Treatment Time--free text: 13 (08/22/23757) Subjective: Pt resting in chair upon arrival. Pleasant and cooperative and agreeable to therapy.2 Pain: No complaints of pain P.T. Bed Mobility Supine-Sit: Not Tested (08/22/23757) Sit-Supine: Not Tested (08/22/23757) Transfers Sit-Stand: Supervision (08/22/23757) Stand-Sit: Supervision (08/22/23757) Ambulation: Distance ambulated (feet): Pt ambulated 25' x2 in room today prior to breakfast. Slow steady pace and slightly wider DONTE but overall does well Assistive Device: Rolling walker Assist: Supervision Balance Sit (Static): Good (08/22/23757) Sit (Dynamic): Good (08/22/23757) Stand (Static): Good (08/22/23757) Stand (Dynamic): Good (08/22/23757) Patient and or Family Goal(s): to get well and to return home Topic of Education: Safety with mobility, Goals/plan of care, Use of assistive device, and Fall prevention Method of Education: Verbal discussion and explanation provided to patient: verbalized understanding and or agreement of this information and demonstrated the exercise and or task Treatment Provided: Gait Training 13 minutes: gait training with rolling walker Alarm Status Patient positioned in: Chair (08/22/23757) With: Pressure pad alarm intact and functioning and call leon in reach (08/22/23757) Patient Education Review of Precautions: Safety;Fall (08/22/23757) Safety Awareness: Patient verbalizes insight of current deficits;Patient demonstrates carryover of insight during functional tasks;Patient can communicate basic needs (08/22/23757) Preferred learning method: Combination (08/22/23757) Barriers to learning: None (08/22/23757) Method of Education: Verbalized to patient (08/22/23757) Assessment: Maria Luisa was seen bedside this am for skilled pT services. Pt was alert and oriented and ready to return home when she's cleared. Pt transfers sit to stand supervision with good technique. Pt was able to ambulate in room to restroom and back with slow pace and wider DONTE but overall steady with walker use. Pt ambulated approx 25'x2 with supervision. Pt reports her family can assist her asneeded at home. Pt used to oxygen needs and safe with line management and awareness. Pt is agreeable to home based PT services post discharge. Will continue with skilled PT services to improve overall endurance prior to discharge home. Would consider home with post-acute care services which may include outpatient therapy or home health. The level of care will be determined in collaboration with the patient, family/caregiver, and care team members. Deficits requiring P.T. treatment needs: Balance;Weakness;Endurance;Safety;Mobility (08/22/23 075) Equipment needs: Rolling walker (08/22/23 075) Plan: Continue with current treatment plan established on evaluation. AM PAC Score with Stairs: [id number] * Respiratory Progress Note - Krystle Cordova, LACEMAKER - 08/22/2023 7:06 AM EST PDP RE-EVALUATION NOTE - Respiratory Care Services [facility] [address] Name: Maria Luisa Recinos [address] Date: 08/22/2023 Time: 7:06 AM Patient Driven Protocol Summary: Re-evaluation . This Treatment Plan and medications will be reviewed by the Primary Care Team for any contraindications. Respiratory Care Treatment Plan Aerosol Therapy Treatment:: Hand Held Nebulizer Tx QID with Duoneb: Unit Dose. to reduce work of breathing and improve pulmonary gas exchange. Additional Aerosolized Treatments: Inhaler(s) QDAY with Breo Ellipta (Fluticasone furoate 100 mcg and Vilanterol 25 mcg inhalation powder) / 1 inhalation. to suppress bronchial inflammation and edema by the use of systemic steroid sparing therapy. .. The patient will be re-evaluated: within 48 [...] cough produced no sputum... Vital Signs: Resp: 18 (08/22/23 07) Pulse: 89 (08/22/23 07) Temp: 36.7 C (98.1 F) (08/22/23 0154) BP: 104/56 (manual) (08/22/23 0400) SpO2: 92 % (08/22/23 07) Primary Service: Hospitalists. Admitting Diagnosis: SOB (shortness of breath) [R06.02] Respiratory failure (HCC) [J96.90] Pulmonary Diagnosis: CHF and Interstitial Pulmonary Fibrosis. * Care Plan - Alondra Willingham RN - 08/22/2023 5:04 AM EST Clinical Goal(s): pt will remain free of falls and injuries during shift (08/21/23 2300) Possible barriers to meeting goal(s)/advancing plan of care: episode of lightheadedness/dizziness, episode of hypotension, SOB Stability of the patient: Moderately unstable - medium risk of patient condition declining or worsening Summary regarding today's goal(s): Met: AEB no falls or injuries during shift, pt understands and follows safety precautions, pt did have 1 episode of feeling lightheaded/dizzy- VS taken and BP was low and bolus given. BP closely monitored and pt had another low BP but did not report feeling dizzy/lightheaded- 2nd bolus given and BPcontinued to be monitored Recommendations: continue plan of care and monitor for hypotensive episode * Care Plan - Lukasz Salinas LPN - 08/21/2023 6:04 PM EST Clinical Goal(s): pt maintainv an O2 sat above 90% (08/21/23 0700) Possible barriers to meeting goal(s)/advancing plan of care: No known barriers noted at this time. Stability of the patient: Moderately stable - low risk of patient condition declining or worsening Summary regarding today's goal(s): Met: Recommendations: Pt continue to follow current stated care plan/goals. * Ancillary Progress Note - Rakesh Sage OT - 08/21/2023 2:26 PM EST PROGRESS NOTE - Occupational Therapy [facility] [address] Name: Maria Luisa Recinos [address] Date: 08/21/2023 Time: 2:26 PM Maria Luisa Recinos is a 87 year old female. Patient Status: Inpatient Insurance: Payor: MEDICARE Plan: MEDICARE A AND B Product Type: *No Product type* Payor: [facility] ([facility]) Plan: [employer] 65 MEDICARE SUPPLEMENT Product Type: *No Product type* Patient Seen: at bedside, nursing cleared patient for therapy Patient Identified By: Name, ID Band and Date Diagnosis: Respitory failure acute (08/21/231348) Status of treatment: Treatment completed (08/21/231348) Orders: OT evaluation and treatment (08/21/231348) Weight Bearing Status: Weight bearing as tolerated (08/21/231348) Precautions: Alarms;Falls;Oxygen (08/21/23 134) Total Treatment Time: 24 (08/21/231348) Subjective: patient does not verbalize any problems for going home Pain: No complaints of pain Observations Consciousness: Alert (08/20/23 08) Orientation: Oriented times 4 (08/20/23835) Sitting posture: Rounded shoulders;Forward head (08/20/23835) Standing posture: Rounded shoulders;Forward head (08/20/23835) Other Findings Endurance: Standing tolerance;Poor (fatigues easily, only able to tolerate limited mobility and activity on eval) (08/20/23835) Current Functional Status: Activities of Daily Living: Dressing Upper Body: Modified Independent (08/21/231348) Lower Body: Minimal Assistance (08/21/231348) Functional Ambulation Assistive Device: Rolling walker (08/21/231348) Distance in feet:: 40 (08/21/231348) Level of Assistance: Supervision (Please Comment) (08/21/231348) Bed Mobility Supine-Sit: Modified Independent (08/21/231348) Sit-Supine: Modified Independent (08/21/231348) OT Transfers Sit-Stand: Modified Independent (08/21/231348) Stand-Sit: Modified Independent (08/21/231348) Toilet: Modified Independent (08/21/231348) Balance Sit (Static): Good (08/21/231348) Sit (Dynamic): Good (08/21/231348) Stand (Static): Good (08/21/231348) Stand (Dynamic): Good (08/21/231348) Patient Education Education Topic: Role of OT;Deep breathing techniques (08/20/23835) Review of Precautions: Fall (08/20/23835) Alarm Status Patient positioned in: Chair (08/21/231348) With: Personal alarm intact and functioning with call leon in reach (08/21/231348) Treatment Provided: Self Snf Management Trainin minutes Deficits requiring O.T. treatment needs: ADL/self- care;Balance;Endurance;Functional mobility;IADL;Safety (08/21/231348) Assessment: patient instructed in use of gas meter mechanic for donning pants, and did very well after instruction. She was able to doff socks with gas meter mechanic, and states that she has a sock aide at home and is able to use it. She toileted herself today, and was able to complete toilet, chair, and sit to supine to sit transfers without assistance. She did not require any unusual rest breaks. Plan: Functional Ambulation, Transfer training, ADL training, and Endurance Anticipated Frequency (on eval): 1 to 3 times per week (08/21/231348) Equipment Equipment used in Therapy: Rolling walker (08/21/231348) AM-PAC Help From Another Person Eating Meals: None (08/21/231348) Help From Another Person Taking Care of Personal Grooming: None (08/21/231348) Help From Another Person To Put On/Take Off Upper Body Clothing: None (08/21/231348) Help From Another Person To Put On/Take Off Lower Body Clothing: A little (08/21/231348) Help From Another Person Toileting: None (08/21/231348) Help From Another Person Bathing: A little (08/21/231348) OT AM-PAC Score: 22 (08/21/231348) OT AM-PAC t-Scale Score: 47.1 (08/21/231348) HLM (Highest Level of Mobility) Goal: Level 6 walk 10 steps or more (08/21/231156) Treatment time 24 mins * Ancillary Progress Note - Veronica Johnson, PT - 08/21/2023 12:28 PM EST PROGRESS NOTE - Physical Therapy [address] [address] Name: Maria Luisa Recinos Location: [place] [address] [facility]01 Date: 08/21/2023 Time: 12:28 PM Maria Luisa Recinos is a/an 87 year old female. Patient Status: Inpatient Insurance: Payor: MEDICARE Plan: MEDICARE A AND B Product Type: *No Product type* Payor: [facility] ([employer]) Plan: [employer] 65 MEDICARE SUPPLEMENT Product Type: *No Product type* Patient Seen: at bedside, nursing cleared patient for therapy Patient Identified By: Name, ID Band and Date Diagnosis: respiratory failure, acute (08/21/231156) Status of treatment: Treatment completed (08/21/231156) Orders: PT evaluation and treatment (08/21/231156) Weight Bearing Status: Weight bearing as tolerated (08/21/231156) Precautions: Alarms;Falls;Oxygen;Safety (08/21/231156) Total Treatment Time--free text: 23 (08/21/231156) Subjective: "I think I might be going home tomorrow but I'm not sure." Pain: Patient has complaints of pain. Pain located low back. Not rated on a 0-10 scale but did request Tylenol from nursing. "My back has hurt for a long time but now that I am moving more it hurts." P.T. Bed Mobility Supine-Sit: Supervision (08/20/23724) Sit-Supine: Not Tested (08/20/23724) Transfers Sit-Stand: Contact Guard (to close supervision) (08/21/231156) Stand-Sit: Contact Guard (to close supervision) (08/21/231156) Ambulation: Distance ambulated (feet): 25 feet x1, 125 feet x1, 250 feet x1 Assistive Device: Rolling walker Assist: Supervision and assistance for O2 tank Patient initially ambulated without an assistive device with contact guard assistance and was reaching for the railing in the hallway for stability. Therapist recommended using a rolling walker. She was agreeable to trial. She was much more steady with the rolling walker and admitted that she felt more steady. She also tolerated longer distances with the use of the rolling walker vs no device. end worker made aware of the need for a rolling walker as patient thinks that she only has a heavy standard walker at home. Balance Sit (Static): Good (08/21/231156) Sit (Dynamic): Good (08/21/231156) Stand (Static): Good (with rolling walker) (08/21/231156) Stand (Dynamic): Good (with rolling walker) (08/21/231156) Patient and or Family Goal(s): to get well and to return home Topic of Education: Breathing techniques, Safety with mobility, Use of assistive device, and Fall prevention Method of Education: Verbal discussion and explanation provided to patient: verbalized understanding and or agreement of this information and demonstrated the exercise and or task Treatment Provided: Gait Training 23 minutes: gait training with no device and rolling walker Alarm Status Patient positioned in: Chair (01/22/24 1157) With: Pressure pad alarm intact and functioning and call leon in reach (08/21/231156) Patient Education Review of Precautions: Safety;Fall (08/20/23 5757) Safety Awareness: Patient verbalizes insight of current deficits;Patient demonstrates carryover of insight during functional tasks;Patient can communicate basic needs (08/21/231156) Preferred learning method: Combination (08/21/231156) Barriers to learning: None (08/21/231156) Method of Education: Verbalized to patient (08/21/231156) Assessment: Maria Luisa is a sweet 87 year old female who tolerated PT visit activities well today. Initially patient reported that she ambulates without a device and required minimal contact assistance and cues for safety for a total distance of about 125 feet with occassional standing rest breaks and assistance for her O2 tank. Therapist encouraged patient to trial the use of a rolling walker. She was agreeable and transferred sit to stand to the rolling walker with supervision and ambulated 250 feet with the rolling walker with supervision and assistance for O2 tank. She demonstrated improved stability and activity tolerance with the use of the rolling walker vs no device. She stated that she t hinks she only has a standard walker at home and would like a rolling walker if able. Social workermade aware of patient need for a rolling walker. Will continue PT services while hospitalized to improve her functional independence in preparation for discharge home. Would consider post-acute care services which may include outpatient PT or home health services if needed. The level of care will be determined in collaboration with the patient, family/caregiver, and care team members. Deficits requiring P.T. treatment needs: Balance;Weakness;Endurance;Safety;Mobility (08/21/231156) Plan: Continue with current treatment plan established on evaluation. AM PAC Score with Stairs: 21 [phone] * Pt Handout (on AVS) - Bernice Myers RN - 08/21/2023 8:50 AM EST Images from the original note were not included. [address]2016 Heart Failure: Making Changes to Your Diet [...] or can't think clearly Last Reviewed Date: 04/30/202119996440-7252 [employer]. All rights reserved. This information is not intended as a substitute for professional medical care. Always follow your healthcare professional's instructions. * Pt Handout (on AVS) - Bernice Myers RN - 08/21/2023 8:50 AM EST Images from the original note were not included. [id number] Furosemide Oral Tablet Brands: Lasix Uses This [...] about all your medicines. Include prescription and [id number], vitamins, and herbal medicines. Do not suddenly [...] you have any questions about this medicine. [email or web address] IMPORTANT NOTE: This document tells you briefly how to take your medicine, but it does not tell youall there is to know about it. Your doctor or pharmacist may give you other documents about your medicine. Please talk to them if you have any questions. Always follow their advice. There is a more complete description of this medicine available in [place]an. Scan this code on your smartphone or tablet or use the web address below. You can also ask your pharmacist for a printout. If you have any questions, please ask your pharmacist. The display and use of this drug information is subject to Terms of Use. Copyright(c) 2022 [employer]. 3624-3566 [employer]. All rights reserved. This information is not intended as a substitute for professional medical care. Always follow your healthcare professional's instructions. * Pt Handout (on AVS) - Bernice Myers RN - 08/21/2023 8:50 AM EST Images from the original note were not included. Furosemide - Video To view the video go to this web address: https://bit.[email or web address] Or, scan this QR code with your smart phone 2022 [employer] / [employer]. All Rights Reserved. * Pt Handout (on AVS) - Bernice Myers RN - 08/21/2023 8:49 AM EST Images from the original note were not included. 60439 Taking Medicine to Control Heart Failure The [...] worsening heart failure symptoms. Last Reviewed Date: 04/30/202119999153-9822 [employer]. All rights reserved. This information is not intended as a substitute for professional medical care. Always follow your healthcare professional's instructions. * Pt Handout (on AVS) - Bernice Myers RN - 08/21/2023 8:48 AM EST Images from the original note were not included. 30039 My Heart Failure Symptoms Chart Last Reviewed Date: 06/30/202119991395-4121 [employer]. All rights reserved. This information is not intended as a substitute for professional medical care. Always follow your healthcare professional's instructions. * Pt Handout (on AVS) - Bernice Myers RN - 08/21/2023 8:48 AM EST Images from the original note were not included. 66210 Heart Failure: Tracking Your Weight You have [...] to see your provider. Last Reviewed Date: 04/30/202119996799-9643 [employer]. All rights reserved. This information is not intended as a substitute for professional medical care. Always follow your healthcare professional's instructions. * Pt Handout (on AVS) - Bernice Myers RN - 08/21/2023 8:47 AM EST Images from the original note were not included. 66176 Heart Failure: Know Your Baselines The first [...] out of the hospital. Last Reviewed Date: 09/28/202119995328-9552 [employer]. All rights reserved. This information is not intended as a substitute for professional medical care. Always follow your healthcare professional's instructions. * Pt Handout (on AVS) - Bernice Myers RN - 08/21/2023 8:47 AM EST DM91 Tracking Symptoms of Heart Failure [...] status over the phone. Last Reviewed Date: 02/28/202319999983-4322 [employer]. All rights reserved. This information is not intended as a substitute for professional medical care. Always follow your healthcare professional's instructions. * Pt Handout (on AVS) - Bernice Myers RN - 08/21/2023 8:46 AM EST What is Heart Failure? - Video Watch this video to learn how the heart muscle weakens with heart failure, and how heart failure affects your body. To view the video go to this web address: [email or web address] Or, scan this QR code with your smart phone [employer] [facility] [facility] * Pt Handout (on AVS) - Bernice Myers RN - 08/21/2023 8:46 AM EST Images from the original note were not included. 96411 What Is Heart Failure? The heart is a muscle that pumps oxygen-rich blood to all parts of the body. When you have heart failure, the heart is not able to pump as well as it should. Blood and fluid may back up into the lungs, and some parts of the body don?t get enough oxygen-rich blood to work normally. These problems lead to the symptoms you feel. When you have heart failure With heart failure, not enough oxygen-rich blood leaves the heart with each beat. There are 2 typesof heart failure. Both affect how well the left ventricles can pump blood. You may have one or bothtypes. Systolic heart failure. The heart muscle becomes weak and enlarged. It can?t pump enough oxygen-rich blood forward to the rest of the body when the ventricles contract. The measurement of how much blood your heart pumps out with each beat is called ejection fraction. In systolic heart failure, the ejection fraction is lower than normal. This can cause blood to back up into the lungs and cause shortness of breath and eventually ankle swelling (edema). This is also known as heart failure with reduced ejection fraction (HFrEF), heart failure with mildly reduced ejection fraction (HFmrEF), or heart failure with improved ejection fraction (HFimpEF). Diastolic heart failure. The heart muscle becomes stiff. It doesn?t relax normally between contractions. This keeps the ventricles from filling with blood as they should. Ejection fraction is often in the normal range. This can still lead to the backup of blood into the body and affect the organs such as the liver. This is also called heart failure with preserved ejection fraction, or HFpEF. Recognizing heart failure symptoms When you have heart failure, you need to pay close attention to your body and how you feel, every single day. That way, if a problem occurs, you can get help before it becomes too severe. You'll needto watch for changes in your symptoms. As long as symptoms stay about the same from one day to the next, your heart failure is stable. But if symptoms start to get worse, it's time to take action. Signs and symptoms of worsening heart failure include: Rapid weight gain from fluid buildup Shortness of breath, especially when lying down flat Fast heart rate Cough that won't go away Swelling, especially in the feet (edema), legs, or abdomen Tiredness (fatigue) Nausea or loss of appetite How heart failure affects your body When the heart doesn't pump enough blood, body chemicals (hormones) are sent to increase the amountof work the heart does. Some hormones make the heart grow larger. Others tell the heart to pump faster. As a result, the heart may pump more blood at first, but it can't keep up with the ongoing demands. So, the heart muscle becomes even more weak. Over time, even less blood is pumped through the heart. This leads to problems throughout the body as organs start to feel the effects of a long-term lack of oxygen. If not treated, over time this can cause problems with your lungs, liver, and kidneys. Long-term (chronic) leg swelling (edema) can also cause skin changes and breakdown. A weak heart itself can eventually cause a severe decline in health and possible if left untreated. What is ejection fraction? Left ventricular ejection fraction (LVEF) is a measurement of how well your heart pumps blood. It measures how much blood in the heart's ventricle is pumped out (ejected) with each heartbeat. This ismeasured to help diagnose heart failure. A healthy heart pumps at least half of the blood from the ventricles with each beat. This means a normal ejection fraction is around 50% to 70%. There are four groupings of HF measured through LVEF. HFrEF. LVEF is 40% or less. (systolic HF) HFmrEF. LVEF is 41% to 49% with higher filling pressure in the left ventricle. (systolic HF) HFimpEF. A past LVEF less than 40% and a follow-up amount of LVEF greater than 40%. (systolic HF) HFpEF. LVEF is 50% or more with higher filling pressure in the left ventricle. (diastolic HF) Your healthcare provider will calculate ejection fraction from an echocardiogram or other tests. Your healthcare provider can talk with you about treatment options and how to improve your EF. My ejection fraction Date: Ejection fraction: Test used: How daily issues affect your health Many things in your daily life impact your health. This can include transportation, money problems,housing, access to food, and professor of early childhood education. If you can?t get to medical appointments, [...] have a staff person who can help. Last Reviewed Date: 07/31/202119993563-6716 [employer]. All rights reserved. This information is not intended as a substitute for professional medical care. Always follow your healthcare professional's instructions. * Care Plan - Guy Mae RN - 08/21/2023 5:51 AM EST Clinical Goal(s): Pt will maintain O2 >90% (08/21/23 0100) Possible barriers to meeting goal(s)/advancing plan of care: Respiratory failure Stability of the patient: Moderately stable - low risk of patient condition declining or worsening Summary regarding today's goal(s): Met: O2 remained above 90% Recommendations: O2 therapy and VS * Care Edilberto - Lukasz Salinas LPN - 08/20/2023 3:55 PM EST Clinical Goal(s): pt will maintain an O2 sat above 90% during my shift. (08/20/23 0700) Possible barriers to meeting goal(s)/advancing plan of care: nO KNOW BARRIERS NOTED AT THIS TIME Stability of the patient: Moderately stable - low risk of patient condition declining or worsening Summary regarding today's goal(s): Met: Recommendations: Pt continue to follow current stated care plan/goals. * Care Plan - Guy Mae RN - 08/20/2023 5:20 AM EST Clinical Goal(s): Pt's O2 will remain above 90% this shift. (08/19/23 2316) Possible barriers to meeting goal(s)/advancing plan of care: Resp Failure Stability of the patient: Moderately stable - low risk of patient condition declining or worsening Summary regarding today's goal(s): Met: Pt's O2 remained > 90% Recommendations: Continue O2 therapy * Care Plan - Juan Carlos Wang LPN - 08/19/2023 6:14 PM EST Clinical Goal(s): Patient will Have O2 sats above 90% this shift. (08/19/23 1450) Possible barriers to meeting goal(s)/advancing plan of care: Patient has Pneumonia and a history ofPulmonary fibrosis. Stability of the patient: Moderately stable - low risk of patient condition declining or worsening Summary regarding today's goal(s): Met: Patient's oxygen level remained above 90% on 2 NC Recommendations: Continue current interventions. * Ancillary Progress Note - Alejandra Linn RRT - 08/19/2023 5:06 PM EST PATIENT DRIVEN PROTOCOL - Respiratory Care Services [place] [id number] [facility] [address] Name: Maria Luisa Recinos Location: [place] [address] ACU- Date: 08/19/2023 Time: 5:07 PM Patient Driven Protocol Summary: Initial evaluation [...] . The patient will be re-evaluated: within 72 hours. The Triage Level is: (Assessment Score [...] 4 Patient Assessment Clinical Findings Respiratory Pattern: 1 - RR 21 - 25; Patient gets short of breath when hurrying on level ground or walking up a slight hill. Breath Sounds: 3 - Crackles, mild wheezes, coarse bronchial, upper airway noises Cough Effectiveness: 0 - Strong non-productive Sputum Production: 0 - No sputum production Level of Activity: 0 - Ambulatory O2 needed to keep SpO2 greater than or equal to 92%: 1 - Oxygen 1-3 LPM or FiO2 less than 35% Assessment Score: 5 Total Assessment Score: 9 Breath Sounds: Inspiratory and expiratory diminished with crackles bilaterally.. Cough and Sputum: An effective cough produced no sputum... CXR: IMPRESSION: Interstitial lung disease with probable superimposed pneumonia. Vital Signs: Resp: 20 (08/19/231599) Pulse: 67 (08/19/231599) Temp: 37.3 C (99.1 F) (08/19/231599) BP: 130/69 (08/19/231599) SpO2: 96 % (08/19/231599) Primary Service: Hospitalists. Admitting Diagnosis: SOB (shortness of breath) [R06.02] Respiratory failure (HCC) [J96.90] Pulmonary Diagnosis: CHF and Interstitial Pulmonary Fibrosis. Prescriptions/Home Medications/Durable Medical Equipment: continuous oxygen, duoneb, breo ellipta. Recommended New home medications/durable medical equipment/outpatient pulmonary/sleep referral tbd. * Communication - Tania Garcia RN - 08/19/2023 3:34 PM EST VIRTUAL RN [facility] [address] Name: Maria Luisa Recinos [address] Date: 08/19/2023 Time: 3:34 PM I completed the Admission Navigator. The patient was in the hospital. I was in a private office space at a [facility] location. After connecting through [employer], the patient was identified by name and date of and / or wristband checked. Patient (or authorized legal insurance verification representative) was then in formed that this was a Virtual Nurse visit and was being conducted confidentially over secure lines. My office door was closed. No one else was in the room with me. Patient acknowledged consent and understanding of privacy and security of the Virtual Nurse visit. I presented the opportunity for thepatient or authorized legal insurance verification representative to ask any questions regarding the visit today. The patient or authorized legal insurance verification representative agreed to participate. Patient and family participated in admission, no further questions at this time. * Ancillary Progress Note - Gricel Martinez RN - 08/19/2023 3:24 PM EST CARE MANAGEMENT - ADULT INITIAL SCREENING [facility]-[address] [address] Name: Maria Luisa Recinos [address] Date: 08/19/2023 Time: 3:24 PM Discussed patient with the interdisciplinary care team. This Field Operations Manager performed a chart review to complete admission screen and assessed needs for transition planning. The floor care technician role and services were explained and emotional support was provided. Chief Complaint: Short of Breath Pt admitted today 08/19/23 for Acute decompensated Heart Failure and Acute Resp failure. Pts medical decision maker has been identified as being her children Betty Price and Juan Pablo Recinos whom pt would like notified of the DC. Per review of the medical record, pt has no admitting MH Dx. Pts primary pharmacy has been identified as being [facility]. Pt describes having an intact family support system. Pt denies any prior Hx of Substance abuse. Pt denies difficulty completing her ADLs prior to admission. Pt reports to being able to read/write. Pt denies difficulty managing her own medications prior to admission. Prior Living Arrangements What was your living situation prior to admission/observation?: Independently (08/19/231511) Living Quarters: House (08/19/231511) Number of steps to enter living quarters:: 2 (08/19/231511) History of falling: No (08/19/23 1239) Prior Level of Functioning Describe the patient's ability prior to admission/observation to perform ADLs: Performs independently (08/19/231511) Describe the patient's mobility status prior to admission: Patient requires assistance with ambulation (08/19/231511) Patient uses assistive device: Yes (08/19/231511) If yes, choose:: Walker;Cane (08/19/231511) Caregiver Information Patient Contacts Name Relation Home Work Mobile Betty Price Adult Child [phone] Juan Pablo Recinos Adult Child [phone] Risk Stratification/Psychosocial/Care Gaps Risk Stratification Psycho Social / Medical Concerns Identified: Adjustment to illness/injury (08/19/231511) Accessed [employer] to connect patients to social care resources: No (08/19/231511) OBRA or OPTIONS needed for placement: No (08/19/231511) AM-PAC Score With Stairs : 23 (08/19/23 1445) Prior to Admission Services Services Prior to Admission APPLICATION INTEGRATOR Services (Services received within the last 30 days with exception, Psych within last two years): Home Health (08/19/231511) List All Provider/Service Name: [facility] (08/19/231511) Agency contacted: No (08/19/231511) [place] Dept[employer] of Aging (PDA) Waiver Program: N/A (08/19/231511) APPLICATION INTEGRATOR Transportation (Services received within the last 30 days): Family/Friends Personal Vehicle (08/19/231511) Outpatient Field Operations Manager: No care recruiting team lead to display Patient/Family Expectations: To return home Tentative DC plan: Once deemed Medically appropriate, it's anticipated pt will return back to home pending continued Medical workup/evaluations and findings. Pt describes her home DME prior to admission as being a RW/Cane/SC and is expected to resume upon DC. Pt may benefit from HC for SN/PT/OT upon DC pending Tx Team recommended need for same. The Tx Team will meet daily in order to discuss DC planning/needs. Color Worker will continue to follow for any identified needs and/or concerns which may arise. For further screening information, please refer to the Care Management flow document. * [facility] [place] Note - Jennifer Stoll RN - 08/19/2023 1:22 PM EST X-ray at bedside. documented in this encounter Plan of Treatment Upcoming Encounters Date Type Department Care Team (Late st Contact Info) Description 09/11/2023 3:00 PM EST Office Visit Cardiology, [facility] [address] [place] [address] Jennifer Queen PA-C [address] [place] [address] 09/15/2023 10:30 AM EST PulmDiagnostic Pulmonary Function Lab, [place] [address] [place] [address] Gjsh, Pulm Fun Tech [address] [place] [address] 10/10/2023 9:30 AM EDT Office Visit Pulmonary Medicine, [place] [address] [place] [address] Yocasta Proctor CRNP [address], [place] [id number] Scheduled Orders Name Type Priority Associated Diagnoses Orde r Schedule PULMONARY STRESS TESTING Procedures Routine Once for 1 Occur rences starting 08/22/2023 until 08/22/2023 PULMONARY STRESS TESTING Procedures Routine Once for 1 Occur rences starting 08/25/2023 until 08/25/2023 Scheduled Referrals Name Type Priority Associated Diagnoses Orde r Schedule HOME HEALTH REFERRAL OP Referral Within 10 days (routine) Respiratory failure (HCC) Ordered: 08/25/2023 Health Maintenance Due Date Last Done Comments Pneumococcal Vaccine: 65+ Years (1 - PCV) 11/29/1941 Depression Screening 1947 Albumin/Creatinine Ratio 11/29/1953 DTaP,Tdap,and Td Vaccines (1 - Tdap) 1954 Zoster Vaccines (2 of 3) 08/23/2012 06/28/2012 COVID-19 Vaccine (5 - ) 03/31/2023 08/05/2022, 05/26/2021, 09/26/2020, Additional history exists Influenza [...] Associated Diagnosis Comments BASIC METABOLIC PANEL Routine 08/25/2023 5:31 AM EST CBC Routine 08/25/2023 5:31 AM EST MAGNESIUM Routine 08/25/2023 5:31 AM EST BASIC METABOLIC PANEL Routine 08/24/2023 5:39 AM EST CBC Routine 08/24/2023 5:39 AM EST MAGNESIUM Routine 08/24/2023 5:39 AM EST BASIC METABOLIC PANEL Routine 08/23/2023 5:57 AM EST CBC Routine 08/23/2023 5:57 AM EST MAGNESIUM Routine 08/23/2023 5:57 AM EST BASIC METABOLIC PANEL Routine 08/22/2023 5:27 AM EST CBC Routine 08/22/2023 5:27 AM EST MAGNESIUM Routine 08/22/2023 5:27 AM EST BASIC METABOLIC PANEL Routine 08/21/2023 5:15 AM EST CBC Routine 08/21/2023 5:15 AM EST MAGNESIUM Routine 08/21/2023 5:15 AM EST BASIC METABOLIC PANEL Routine 08/20/2023 6:06 AM EST CBC Routine 08/20/2023 6:06 AM EST MAGNESIUM Routine 08/20/2023 6:06 AM EST CULTURE, RESPIRATORY, LOWER, AEROBIC Routine 08/19/2023 4:37 PM EST XR CHEST 1 VIEW STAT 08/19/2023 1:26 PM EST RESPIRATORY PATHOGEN PANEL, PCR STAT 08/19/2023 1:20 PM EST DIFFERENTIAL, AUTOMATED STAT 08/19/2023 1:19 PM EST TROPONIN T, HIGH SENSITIVITY STAT 08/19/2023 1:19 PM EST PROCALCITONIN Add-on 08/19/2023 1:19 PM EST BLOOD GAS, VENOUS STAT 08/19/2023 1:1 9 PM EST BNP (NT-PROBNP) STAT 08/19/2023 1:19 PM EST COMPREHENSIVE METABOLIC PANEL STAT 08/19/2023 1:19 PM EST CBC STAT 08/19/2023 1:19 PM EST PT INR STAT 08/19/2023 1:19 PM EST APTT STAT 08/19/2023 1:19 PM EST CBC STAT 08/19/2023 1:19 PM EST DIFFERENTIAL, TECHNOLOGIST REVIEW Routine 08/19/2023 1:19 PM EST HC ECG TRACING ONLY STAT 08/19/2023 1 2:49 PM EST SOB (shortness of breath) documented in this encounter Results * MAGNESIUM (08/25/2023 5:31 AM EST) Magnesium 2.1 1.5 - 2.6 mg/dL 08/25/2023 6:28 AM EST LABORATORY [facility] Blood Venous blood specimen / Unknown Venipuncture / Unknown 08/25/2023 5:31 AM EST 08/25/2023 6:01 AM EST Tim Todd DO LAB BLOOD ORDERABLES Performing Organization Address City/State/[facility] Co de Phone Number LABORATORY [address] [address] * CBC (08/25/2023 5:31 AM EST) WBC 4.26 4.00 - 10.80 K/uL 08/25/2023 6:08 AM EST LABORATORY [facility] RBC 4.71 3.85 - 5.15 M/uL 08/25/2023 6:08 AM EST LABORATORY [facility] HGB 13.6 12.0 - 15.3 g/dL 08/25/2023 6:08 AM EST LABORATORY [facility] HCT 40.1 36.0 - 45.2 % 08/25/2023 6:08 AM EST LABORATORY [facility] MCV 85.1 81.5 - 97.5 fL 08/25/2023 6:08 AM EST LABORATORY [facility] MCH 28.9 27.0 - 34.0 pg 08/25/2023 6:08 AM EST LABORATORY [facility] MCHC 33.9 32.0 - 36.0 g/dL 08/25/2023 6:08 AM EST LABORATORY [facility] RDW 15.0 11.5 - 15.5 % 08/25/2023 6:08 AM EST LABORATORY [facility] PLT 147 140 - 400 K/uL 08/25/2023 6:08 AM EST LABORATORY [facility] MPV 10.0 6.6 - 11.1 fL 08/25/2023 6:08 AM EST LABORATORY [facility] Blood Venous blood specimen / Unknown Venipuncture / Unknown 08/25/2023 5:31 AM EST 08/25/2023 6:01 AM EST Tim Todd DO LAB BLOOD ORDERABLES LABORATORY [facility] [address] [place] [address] * (ABNORMAL) BASIC METABOLIC PANEL (08/25/2023 5:31 AM EST) BUN 42(H) 6 - 20 mg/dL 08/25/2023 6:44 AM EST LABORATORY [facility] Creatinine 1.0 0.5 - 1.0 mg/dL 08/25/2023 6:44 AM EST LABORATORY [facility] Estimated Glomerular Filtration Rate 56(L) >=60 mL/min 08/25/2023 6:44 AM EST LABORATORY [facility] Comment:eGFR is calculated b ased on the CKD-EPI 2020 equation Sodium 128(L) 135 - 146 mmol/L 08/25/2023 6:44 AM EST LABORATORY [facility] Potassium 4.0 3.5 - 5.1 mmol/L 08/25/2023 6:44 AM EST LABORATORY [facility] Chloride 94(L) 98 - 107 mmol/L 08/25/2023 6:44 AM EST LABORATORY [facility] CO2 22 22 - 32 mmol/L 08/25/2023 6:44 AM EST LABORATORY [facility] Anion Gap 12 7 - 15 mmol/L 08/25/2023 6:44 AM EST LABORATORY [facility] Glucose 114 70 - 120 mg/dL 08/25/2023 6:44 AM EST LABORATORY [facility] Calcium 8.9 8.4 - 10.2 mg/dL 08/25/2023 6:44 AM EST LABORATORY [facility] Blood Venous blood specimen / Unknown Venipuncture / Unknown 08/25/2023 5:31 AM EST 08/25/2023 6:01 AM EST Tim Todd DO LAB BLOOD ORDERABLES LABORATORY [address] [address] * MAGNESIUM (08/24/2023 5:39 AM EST) Magnesium 2.1 1.5 - 2.6 mg/dL 08/24/2023 6:41 AM EST LABORATORY [facility] Blood Venous blood specimen / Unknown Venipuncture / Unknown 08/24/2023 5:39 AM EST 08/24/2023 6:00 AM EST Tim Todd DO LAB BLOOD ORDERABLES LABORATORY [place] [address] [place] [address] * CBC (08/24/2023 5:39 AM EST) WBC 4.69 4.00 - 10.80 K/uL 08/24/2023 6:04 AM EST LABORATORY [facility] RBC 4.52 3.85 - 5.15 M/uL 08/24/2023 6:04 AM EST LABORATORY [facility] HGB 13.2 12.0 - 15.3 g/dL 08/24/2023 6:04 AM EST LABORATORY [facility] HCT 38.9 36.0 - 45.2 % 08/24/2023 6:04 AM EST LABORATORY [facility] MCV 86.1 81.5 - 97.5 fL 08/24/2023 6:04 AM EST LABORATORY [facility] MCH 29.2 27.0 - 34.0 pg 08/24/2023 6:04 AM EST LABORATORY [facility] MCHC 33.9 32.0 - 36.0 g/dL 08/24/2023 6:04 AM EST LABORATORY [facility] RDW 14.9 11.5 - 15.5 % 08/24/2023 6:04 AM EST LABORATORY [facility] PLT 167 140 - 400 K/uL 08/24/2023 6:04 AM EST LABORATORY [facility] MPV 9.9 6.6 - 11.1 fL 08/24/2023 6:04 AM EST LABORATORY [facility] Blood Venous blood specimen / Unknown Venipuncture / Unknown 08/24/2023 5:39 AM EST 08/24/2023 6:00 AM EST Tim Todd DO LAB BLOOD ORDERABLES LABORATORY [facility] [address] [place] [address] * (ABNORMAL) BASIC METABOLIC PANEL (08/24/2023 5:39 AM EST) BUN 46(H) 6 - 20 mg/dL 08/24/2023 6:41 AM EST LABORATORY [facility] Creatinine 1.2(H) 0.5 - 1.0 mg/dL 08/24/2023 6:41 AM EST LABORATORY [facility] Estimated Glomerular Filtration Rate 46(L) >=60 mL/min 08/24/2023 6:41 AM EST LABORATORY [facility] Comment:eGFR is calculated b ased on the CKD-EPI 2020 equation Sodium 125(L) 135 - 146 mmol/L 08/24/2023 6:41 AM EST LABORATORY [facility] Potassium 3.9 3.5 - 5.1 mmol/L 08/24/2023 6:41 AM EST LABORATORY [facility] Chloride 91(L) 98 - 107 mmol/L 08/24/2023 6:41 AM EST LABORATORY [facility] CO2 20(L) 22 - 32 mmol/L 08/24/2023 6:41 AM EST LABORATORY [facility] Anion Gap 14 7 - 15 mmol/L 08/24/2023 6:41 AM EST LABORATORY [facility] Glucose 99 70 - 120 mg/dL 08/24/2023 6:41 AM EST LABORATORY [facility] Calcium 8.8 8.4 - 10.2 mg/dL 08/24/2023 6:41 AM EST LABORATORY [facility] Blood Venous blood specimen / Unknown Venipuncture / Unknown 08/24/2023 5:39 AM EST 08/24/2023 6:00 AM EST Tim Todd DO LAB BLOOD ORDERABLES LABORATORY [facility] [address] [place] [phone] * MAGNESIUM (08/23/2023 5:57 AM EST) Magnesium 2.0 1.5 - 2.6 mg/dL 08/23/2023 6:22 AM EST LABORATORY [facility] Blood Venous blood specimen / Unknown Venipuncture / Unknown 08/23/2023 5:57 AM EST 08/23/2023 6:02 AM EST Tim Todd DO LAB BLOOD ORDERABLES Performing Organization Address City/[facility] [address]/ZIP Co de Phone Number LABORATORY [address] [phone] * CBC (08/23/2023 5:57 AM EST) [facility] WBC 4.64 4.00 - 10.80 K/uL 08/23/2023 6:05 AM EST LABORATORY [facility] RBC 4.37 3.85 - 5.15 M/uL 08/23/2023 6:05 AM EST LABORATORY [facility] HGB 12.7 12.0 - 15.3 g/dL 08/23/2023 6:05 AM EST LABORATORY [facility] HCT 37.8 36.0 - 45.2 % 08/23/2023 6:05 AM EST LABORATORY [facility] MCV 86.5 81.5 - 97.5 fL 08/23/2023 6:05 AM EST LABORATORY [facility] MCH 29.1 27.0 - 34.0 pg 08/23/2023 6:05 AM EST LABORATORY [facility] MCHC 33.6 32.0 - 36.0 g/dL 08/23/2023 6:05 AM EST LABORATORY [facility] RDW 14.9 11.5 - 15.5 % 08/23/2023 6:05 AM EST LABORATORY [facility] PLT 162 140 - 400 K/uL 08/23/2023 6:05 AM EST LABORATORY [facility] MPV 9.1 6.6 - 11.1 fL 08/23/2023 6:05 AM EST LABORATORY [facility] Blood Venous blood specimen / Unknown Venipuncture / Unknown 08/23/2023 5:57 AM EST 08/23/2023 6:02 AM EST Tim Todd DO LAB BLOOD ORDERABLES Performing Organization Address City/[facility] [address]/ZIP Co de Phone Number LABORATORY [address] [phone] * (ABNORMAL) BASIC METABOLIC PANEL (08/23/2023 5:57 AM EST) BUN 41(H) 6 - 20 mg/dL 08/23/2023 6:22 AM EST LABORATORY [facility] Creatinine 1.2(H) 0.5 - 1.0 mg/dL 08/23/2023 6:22 AM EST LABORATORY [facility] Estimated Glomerular Filtration Rate 44(L) >=60 mL/min 08/23/2023 6:22 AM EST LABORATORY [facility] Comment:eGFR is calculated b ased on the CKD-EPI 2020 equation Sodium 124(L) 135 - 146 mmol/L 08/23/2023 6:22 AM EST LABORATORY [facility] Potassium 3.3(L) 3.5 - 5.1 mmol/L 08/23/2023 6:22 AM EST LABORATORY [facility] Chloride 90(L) 98 - 107 mmol/L 08/23/2023 6:22 AM EST LABORATORY [facility] CO2 22 22 - 32 mmol/L 08/23/2023 6:22 AM EST LABORATORY [facility] Anion Gap 12 7 - 15 mmol/L 08/23/2023 6:22 AM EST LABORATORY [facility] Glucose 117 70 - 120 mg/dL 08/23/2023 6:22 AM EST LABORATORY [facility] Calcium 8.5 8.4 - 10.2 mg/dL 08/23/2023 6:22 AM EST LABORATORY [facility] Blood Venous blood specimen / Unknown Venipuncture / Unknown 08/23/2023 5:57 AM EST 08/23/2023 6:02 AM EST Tim Todd DO LAB BLOOD ORDERABLES LABORATORY [place] [address] [place] [address] * MAGNESIUM (08/22/2023 5:27 AM EST) Magnesium 1.9 1.5 - 2.6 mg/dL 08/22/2023 5:56 AM EST LABORATORY [facility] Blood Venous blood specimen / Unknown Venipuncture / Unknown 08/22/2023 5:27 AM EST 08/22/2023 5:32 AM EST Tim Todd DO LAB BLOOD ORDERABLES Performing Organization Address City/[facility] [address]/ZIP Co de Phone Number LABORATORY [address] [phone] * CBC (08/22/2023 5:27 AM EST) WBC 6.55 4.00 - 10.80 K/uL 08/22/2023 5:40 AM EST LABORATORY [facility] RBC 4.36 3.85 - 5.15 M/uL 08/22/2023 5:40 AM EST LABORATORY [facility] HGB 12.7 12.0 - 15.3 g/dL 08/22/2023 5:40 AM EST LABORATORY [facility] HCT 37.9 36.0 - 45.2 % 08/22/2023 5:40 AM EST LABORATORY [facility] MCV 86.9 81.5 - 97.5 fL 08/22/2023 5:40 AM EST LABORATORY [facility] MCH 29.1 27.0 - 34.0 pg 08/22/2023 5:40 AM EST LABORATORY [facility] MCHC 33.5 32.0 - 36.0 g/dL 08/22/2023 5:40 AM EST LABORATORY [facility] RDW 15.0 11.5 - 15.5 % 08/22/2023 5:40 AM EST LABORATORY [facility] PLT 221 140 - 400 K/uL 08/22/2023 5:40 AM EST LABORATORY [facility] MPV 9.1 6.6 - 11.1 fL 08/22/2023 5:40 AM EST LABORATORY [facility] Blood Venous blood specimen / Unknown Venipuncture / Unknown 08/22/2023 5:27 AM EST 08/22/2023 5:32 AM EST Tim Todd DO LAB BLOOD ORDERABLES Performing Organization Address City/[facility] [address]/ZIP Co de Phone Number LABORATORY [address] [phone] * (ABNORMAL) BASIC METABOLIC PANEL (08/22/2023 5:27 AM EST) BUN 34(H) 6 - 20 mg/dL 08/22/2023 5:56 AM EST LABORATORY [facility] Creatinine 1.3(H) 0.5 - 1.0 mg/dL 08/22/2023 5:56 AM EST LABORATORY [facility] Estimated Glomerular Filtration Rate 39(L) >=60 mL/min 08/22/2023 5:56 AM EST LABORATORY [facility] Comment:eGFR is calculated b ased on the CKD-EPI 2020 equation Sodium 127(L) 135 - 146 mmol/L 08/22/2023 5:56 AM EST LABORATORY [facility] Potassium 3.5 3.5 - 5.1 mmol/L 08/22/2023 5:56 AM EST LABORATORY [facility] Chloride 92(L) 98 - 107 mmol/L 08/22/2023 5:56 AM EST LABORATORY [facility] CO2 21(L) 22 - 32 mmol/L 08/22/2023 5:56 AM EST LABORATORY [facility] Anion Gap 14 7 - 15 mmol/L 08/22/2023 5:56 AM EST LABORATORY [facility] Glucose 114 70 - 120 mg/dL 08/22/2023 5:56 AM EST LABORATORY [facility] Calcium 8.7 8.4 - 10.2 mg/dL 08/22/2023 5:56 AM EST LABORATORY [facility] Blood Venous blood specimen / Unknown Venipuncture / Unknown 08/22/2023 5:27 AM EST 08/22/2023 5:32 AM EST Tim Todd DO LAB BLOOD ORDERABLES LABORATORY [address] [phone] * MAGNESIUM (08/21/2023 5:15 AM EST) Magnesium 1.8 1.5 - 2.6 mg/dL 08/21/2023 6:01 AM EST LABORATORY [facility] Blood Venous blood specimen / Unknown Venipuncture / Unknown 08/21/2023 5:15 AM EST 08/21/2023 5:39 AM EST Tim Todd DO LAB BLOOD ORDERABLES LABORATORY [facility] [address] [place] [address] * CBC (08/21/2023 5:15 AM EST) WBC 8.28 4.00 - 10.80 K/uL 08/21/2023 5:45 AM EST LABORATORY [facility] RBC 4.30 3.85 - 5.15 M/uL 08/21/2023 5:45 AM EST LABORATORY [facility] HGB 12.7 12.0 - 15.3 g/dL 08/21/2023 5:45 AM EST LABORATORY [facility] HCT 37.8 36.0 - 45.2 % 08/21/2023 5:45 AM EST LABORATORY [facility] MCV 87.9 81.5 - 97.5 fL 08/21/2023 5:45 AM EST LABORATORY [facility] MCH 29.5 27.0 - 34.0 pg 08/21/2023 5:45 AM EST LABORATORY [facility] MCHC 33.6 32.0 - 36.0 g/dL 08/21/2023 5:45 AM EST LABORATORY [facility] RDW 14.9 11.5 - 15.5 % 08/21/2023 5:45 AM EST LABORATORY [facility] PLT 244 140 - 400 K/uL 08/21/2023 5:45 AM EST LABORATORY [facility] MPV 9.3 6.6 - 11.1 fL 08/21/2023 5:45 AM EST LABORATORY [facility] Blood Venous blood specimen / Unknown Venipuncture / Unknown 08/21/2023 5:15 AM EST 08/21/2023 5:39 AM EST Tim Todd DO LAB BLOOD ORDERABLES LABORATORY [facility] [address] [place] [address] * (ABNORMAL) BASIC METABOLIC PANEL (08/21/2023 5:15 AM EST) Pathologist [facility] BUN 20 6 - 20 mg/dL 08/21/2023 6:01 AM EST LABORATORY [facility] Creatinine 1.0 0.5 - 1.0 mg/dL 08/21/2023 6:01 AM EST LABORATORY [facility] Estimated Glomerular Filtration Rate 54(L) >=60 mL/min 08/21/2023 6:01 AM EST LABORATORY [facility] Comment:eGFR is calculated b ased on the CKD-EPI 2020 equation Sodium 131(L) 135 - 146 mmol/L 08/21/2023 6:01 AM EST LABORATORY [facility] Potassium 3.2(L) 3.5 - 5.1 mmol/L 08/21/2023 6:01 AM EST LABORATORY [facility] Chloride 95(L) 98 - 107 mmol/L 08/21/2023 6:01 AM EST LABORATORY [facility] CO2 23 22 - 32 mmol/L 08/21/2023 6:01 AM EST LABORATORY [facility] Anion Gap 13 7 - 15 mmol/L 08/21/2023 6:01 AM EST LABORATORY [facility] Glucose 119 70 - 120 mg/dL 08/21/2023 6:01 AM EST LABORATORY [facility] Calcium 8.4 8.4 - 10.2 mg/dL 08/21/2023 6:01 AM EST LABORATORY [facility] Blood Venous blood specimen / Unknown Venipuncture / Unknown 08/21/2023 5:15 AM EST 08/21/2023 5:39 AM EST Tim Todd DO LAB BLOOD ORDERABLES LABORATORY [address] [phone] * MAGNESIUM (08/20/2023 6:06 AM EST) Magnesium 1.9 1.5 - 2.6 mg/dL 08/20/2023 8:24 AM EST LABORATORY [facility] Blood Venous blood specimen / Unknown Venipuncture / Unknown 08/20/2023 6:06 AM EST 08/20/2023 6:23 AM EST Tim Todd DO LAB BLOOD ORDERABLES LABORATORY [address] [phone] * CBC (08/20/2023 6:06 AM EST) WBC 9.52 4.00 - 10.80 K/uL 08/20/2023 6:26 AM EST LABORATORY [facility] RBC 4.25 3.85 - 5.15 M/uL 08/20/2023 6:26 AM EST LABORATORY [facility] HGB 12.4 12.0 - 15.3 g/dL 08/20/2023 6:26 AM EST LABORATORY [facility] HCT 37.7 36.0 - 45.2 % 08/20/2023 6:26 AM EST LABORATORY [facility] MCV 88.7 81.5 - 97.5 fL 08/20/2023 6:26 AM EST LABORATORY [facility] MCH 29.2 27.0 - 34.0 pg 08/20/2023 6:26 AM EST LABORATORY [facility] MCHC 32.9 32.0 - 36.0 g/dL 08/20/2023 6:26 AM EST LABORATORY [facility] RDW 15.3 11.5 - 15.5 % 08/20/2023 6:26 AM EST LABORATORY [facility] PLT 262 140 - 400 K/uL 08/20/2023 6:26 AM EST LABORATORY [facility] MPV 9.1 6.6 - 11.1 fL 08/20/2023 6:26 AM EST LABORATORY [facility] Blood Venous blood specimen / Unknown Venipuncture / Unknown 08/20/2023 6:06 AM EST 08/20/2023 6:23 AM EST Tim Todd DO LAB BLOOD ORDERABLES Performing Organization Address City/State/[facility] Co de Phone Number LABORATORY [address] [phone] * (ABNORMAL) BASIC METABOLIC PANEL (08/20/2023 6:06 AM EST) BUN 16 6 - 20 mg/dL 08/20/2023 8:24 AM EST LABORATORY [facility] Creatinine 0.9 0.5 - 1.0 mg/dL 08/20/2023 8:24 AM EST LABORATORY [facility] Estimated Glomerular Filtration Rate 62 >=60 mL/min 08/20/2023 8:24 AM EST LABORATORY [facility] Comment:eGFR is calculated b ased on the CKD-EPI 2021 equation Sodium 129(L) 135 - 146 mmol/L 08/20/2023 8:24 AM EST LABORATORY [facility] Potassium 3.5 3.5 - 5.1 mmol/L 08/20/2023 8:24 AM EST LABORATORY [facility] Chloride 94(L) 98 - 107 mmol/L 08/20/2023 8:24 AM EST LABORATORY [facility] CO2 23 22 - 32 mmol/L 08/20/2023 8:24 AM EST LABORATORY [facility] Anion Gap 12 7 - 15 mmol/L 08/20/2023 8:24 AM EST LABORATORY [facility] Glucose 95 70 - 120 mg/dL 08/20/2023 8:24 AM EST LABORATORY [facility] Calcium 8.4 8.4 - 10.2 mg/dL 08/20/2023 8:24 AM EST LABORATORY [facility] Blood Venous blood specimen / Unknown Venipuncture / Unknown 08/20/2023 6:06 AM EST 08/20/2023 6:23 AM EST Tim Todd DO LAB BLOOD ORDERABLES LABORATORY [facility] [address] [place] [address] * CULTURE, RESPIRATORY, LOWER, AEROBIC (08/19/2023 4:37 PM EST) Culture Growth Specimen unsatisfactory. Not tested. 08/20/2023 5:45 PM EST LABORATORY [facility] Stain Description Specimen contaminated with epithelial cells insurance verification representative of oropharyngeal contamination. Further processing may yield potentially misleading results. 08/20/2023 5:45 PM EST LABORATORY [facility] Lower Respiratory Sputum specimen / Unknown Non-blood Collection / Unknown 08/19/2023 4:37 PM EST 08/19/2023 4:40 PM EST Tim Todd DO LAB MICRO - GENERAL ORDERABLES LABORATORY [facility] [address] [place] [address] * XR CHEST 1 VIEW (08/19/2023 1:26 PM EST) Anatomical Region Laterality Modality Chest Computed Radiogr aphy 08/19/2023 1:23 PM EST Impressions 08/19/2023 1:34 PM EST IMPRESSION: Interstitial lung disease with probable superimposed pneumonia THIS DOCUMENT HAS BEEN ELECTRONICALLY SIGNED BY MCKAYLA MAN MD Narrative 08/19/2023 1:34 PM EST PROCEDURE INFORMATION: Exam: XR Chest Exam date and time: 08/19/2023 1:23 PM Age: 87 years old Clinical indication: Shortness of breath; Additional info: SOB TECHNIQUE: Imaging protocol: Radiologic exam of the chest. Views: 1 view. COMPARISON: DX XR CHEST 1 VIEW 07/30/2023 8:22 AM FINDINGS: Tubes, catheters and devices: Cardiac monitoring electrodes are seen Lungs: There is an increase in the interstitial markings in a reticulonodular pattern. There is ground-glass nodular density within the lungs which may reflect superimposed pneumonia. Pleural spaces: There is no large pleural effusion Heart/Mediastinum: The heart is not enlarged. The heart is not enlarged. There is mitral annular calcification Bones/joints: There is impingement at the shoulders with probable rotator cuff tendon tears. Degenerative changes seen at the shoulders Procedure Note Mckayla Man MD - 08/19/2023 PROCEDURE INFORMATION: Exam: XR Chest Exam date and time: 08/19/2023 1:23 PM Age: 87 years old Clinical indication: Shortness of breath; Additional info: SOB TECHNIQUE: Imaging protocol: Radiologic exam of the chest. Views: 1 view. COMPARISON: DX XR CHEST 1 VIEW 07/30/2023 8:22 AM FINDINGS: Tubes, catheters and devices: Cardiac monitoring electrodes are seen Lungs: There is an increase in the interstitial markings in areticulonodular pattern. There is ground-glass nodular density within the lungs which may reflect superimposed pneumonia. Pleural spaces: There is no large pleural effusion Heart/Mediastinum: The heart is not enlarged. The heart is not enlarged.There is mitral annular calcification Bones/joints: There is impingement at the shoulders with probable rotatorcuff tendon tears. Degenerative changes seen at the shoulders IMPRESSION IMPRESSION: Interstitial lung disease with probable superimposed pneumonia THIS DOCUMENT HAS BEEN ELECTRONICALLY SIGNED BY MCKAYLA MAN MD [place] Jr., PA-C RADIOLOGY ([facility]) * RESPIRATORY PATHOGEN PANEL, PCR (08/19/2023 1:20 PM EST) Pathologist [facility] Adenovirus by PCR Negative Negative 024 2:18 PM EST LABORATORY [facility] Coronavirus 229E by PCR Negative Negative 08/19/2023 2:18 PM EST LABORATORY [facility] Coronavirus HKU1 by PCR Negative Negative 08/19/2023 2:18 PM EST LABORATORY [facility] Coronavirus NL63 by PCR Negative Negative 08/19/2023 2:18 PM EST LABORATORY [facility] Coronavirus OC43 by PCR Negative Negative 08/19/2023 2:18 PM EST LABORATORY [facility] Coronavirus SARS-CoV-2 by PCR Negative Negative 08/19/2023 2:18 PM EST LABORATORY [facility] Human Metapneumovirus by PCR Negative Negative 08/19/2023 2:18 PM EST LABORATORY [facility] Rhinovirus/Enterovi jessica by PCR Negative Negative 08/19/2023 2:18 PM EST LABORATORY [facility] Influenza A Virus by PCR Negative Negative 08/19/2023 2:18 PM EST LABORATORY [facility] Influenza B Virus by PCR Negative Negative 08/19/2023 2:18 PM EST LABORATORY [facility] Parainfluenza Virus 1 by PCR Negative Negative 08/19/2023 2:18 PM EST LABORATORY [facility] Parainfluenza Virus 2 by PCR Negative Negative 08/19/2023 2:18 PM EST LABORATORY [facility] Parainfluenza Virus 3 by PCR Negative Negative 08/19/2023 2:18 PM EST LABORATORY [facility] Parainfluenza Virus 4 by PCR Negative Negative 08/19/2023 2:18 PM EST LABORATORY [facility] Respiratory Syncytial Virus by PCR Negative Negative 08/19/2023 2:18 PM EST LABORATORY [facility] Bordetella pertussis by PCR Negative Negative 08/19/2023 2:18 PM EST LABORATORY [facility] Chlamydia pneumoniae by PCR Negative Negative 08/19/2023 2:18 PM EST LABORATORY [facility] Mycoplasma pneumoniae by PCR Negative Negative 08/19/2023 2:18 PM EST LABORATORY [facility] Bordetella parapertussis by PCR Negative Negative 08/19/2023 2:18 PM EST LABORATORY [facility] Comment: The primers that detect Rhinovirus may cross react with some Enterorviruses. The validation of bronchial specimens, tracheal aspirates, and throats for this assay was developed and performance characteristics determined by [employer]. The validation of alternate specimen types has not been cleared or approved by the U.S. Food and Drug Administration (FDA). It has been determined that such clearance or approval is not necessary. Upper Respiratory Mid-turbinate nasal swab / Unknown Non-blood Collection / Unknown 08/19/2023 1:20 PM EST 08/19/2023 1:28 PM EST [place] Jr., PA-C LAB MICRO - GENERAL ORDERABLES Performing Organization Address [facility] [address]/ZIP Co de Phone Number LABORATORY [facility] [address] [place] [address] * (ABNORMAL) PROCALCITONIN (08/19/2023 1:19 PM EST) Procalcitonin 0.10(H) <0.10 ng/mL 08/20/2023 1:39 PM EST LABORATORY [facility] Blood Venous blood specimen / Unknown Venipuncture / Unknown 08/19/2023 1:19 PM EST 08/19/2023 1:28 PM EST Narrative LABORATORY [facility] - 08/20/2023 1:39 PM EST Less than 0.5 ng/mL: Low risk for progression to sepsis. Review patients condition for localized infections. 0.5 to 2.0 ng/mL: Intermediate risk for progresion to sepsis. Review underlying conditions. Recommend repeat PCT after 6 hours has elapsed. Greater than 2.0 ng/mL: high risk for progression to sepsis unless other causes are known. Tim Todd DO LAB BLOOD ORDERABLES Performing Organization Address City/[facility] [address]/ZIP Co de Phone Number LABORATORY [facility] [address] [place] [address] * (ABNORMAL) DIFFERENTIAL, TECHNOLOGIST REVIEW (08/19/2023 1:19 PM EST) WBC 9.92 4.00 - 10.80 K/uL 08/19/2023 1:49 PM EST LABORATORY [facility] Neutrophils % 80.0(H) 40.0 - 75.0 % 08/19/2023 1:49 PM EST LABORATORY [facility] Lymphocytes % 10.0(L) 18.0 - 42.0 % 08/19/2023 1:49 PM EST LABORATORY [facility] Monocytes % 5.0 1.0 - 11.0 % 08/19/2023 1:49 PM EST LABORATORY SH Eosinophils % 5.0 0.0 - 6.0 % 08/19/2023 1:49 PM EST LABORATORY [facility] Absolute Neutrophils 7.94(H) 1.80 - 7.70 K/uL 08/19/2023 1:49 PM EST LABORATORY [facility] Absolute Lymphocytes 0.99(L) 1.00 - 4.80 K/uL 08/19/2023 1:49 PM EST LABORATORY [facility] Absolute Monocytes 0.50 0.00 - 1.10 K/uL 08/19/2023 1:49 PM EST LABORATORY [facility] Absolute Eosinophils 0.50 0.00 - 0.70 K/uL 08/19/2023 1:49 PM EST LABORATORY [facility] nRBCs 08/19/2023 1:49 PM EST LABORATORY [facility] Blood Venous blood specimen / Unknown Venipuncture / Unknown 08/19/2023 1:19 PM EST 08/19/2023 1:28 PM EST [place] Jr., PA-C LAB BLOOD ORDERABLES Performing Organization Address [facility] [address]/[facility] Phone Number LABORATORY [address] [phone] * DIFFERENTIAL, AUTOMATED (08/19/2023 1:19 PM EST) Blood Venous blood specimen / Unknown Venipuncture / Unknown 08/19/2023 1:19 PM EST 08/19/2023 1:28 PM EST [place] Jr., PA-C LAB BLOOD ORDERABLES Performing Organization Address [facility] [address]/[facility] Phone Number LABORATORY [address] [phone] * CBC (08/19/2023 1:19 PM EST) WBC 9.92 4.00 - 10.80 K/uL 08/19/2023 1:49 PM EST LABORATORY [facility] RBC 4.68 3.85 - 5.15 M/uL 08/19/2023 1:49 PM EST LABORATORY [facility] HGB 13.7 12.0 - 15.3 g/dL 08/19/2023 1:49 PM EST LABORATORY [facility] HCT 41.4 36.0 - 45.2 % 08/19/2023 1:49 PM EST LABORATORY [facility] MCV 88.5 81.5 - 97.5 fL 08/19/2023 1:49 PM EST LABORATORY [facility] MCH 29.3 27.0 - 34.0 pg 08/19/2023 1:49 PM EST LABORATORY [facility] MCHC 33.1 32.0 - 36.0 g/dL 08/19/2023 1:49 PM EST LABORATORY [facility] RDW 15.6 11.5 - 15.5 % 08/19/2023 1:49 PM EST LAB[facility]ATORY [facility] PLT 300 140 - 400 K/uL 08/19/2023 1:49 PM EST LABORATORY [facility] MPV 9.0 6.6 - 11.1 fL 08/19/2023 1:49 PM EST LAB[facility]ATORY [facility] Blood Venous blood specimen / Unknown Venipuncture / Unknown 08/19/2023 1:19 PM EST 08/19/2023 1:28 PM EST [place] Jr., PA-C LAB BLOOD ORDERABLES LABORATORY [address] [id number] * (ABNORMAL) COMPREHENSIVE METABOLIC PANEL (08/19/2023 1:19 PM EST) BUN 18 6 - 20 mg/dL 08/19/2023 2:03 PM EST LAB[facility]ATORY [facility] Creatinine 1.0 0.5 - 1.0 mg/dL 08/19/2023 2:03 PM EST LAB[facility]ATORY [facility] Estimated Glomerular Filtration Rate 58(L) >=60 mL/min 08/19/2023 2:03 PM EST LAB[facility]ATORY [facility] Comment:eGFR is calculated b ased on the CKD-EPI 2020 equation Sodium 130(L) 135 - 146 mmol/L 08/19/2023 2:03 PM EST LAB[facility]ATORY [facility] Potassium 4.1 3.5 - 5.1 mmol/L 08/19/2023 2:03 PM EST LAB[facility]ATORY [facility] Chloride 95(L) 98 - 107 mmol/L 08/19/2023 2:03 PM EST LAB[facility]ATORY [facility] CO2 23 22 - 32 mmol/L 08/19/2023 2:03 PM EST LAB[facility]ATORY [facility] Anion Gap 12 7 - 15 mmol/L 08/19/2023 2:03 PM EST LAB[facility]ATORY [facility] Glucose 108 70 - 120 mg/dL 08/19/2023 2:03 PM EST LAB[facility]ATORY [facility] Albumin 3.5(L) 3.8 - 5.0 g/dL 08/19/2023 2:03 PM EST LAB[facility]ATORY [facility] AST 30 10 - 35 U/L 08/19/2023 2:03 PM EST LAB[facility]ATORY [facility] Alkaline Phosphatase 118 35 - 130 U/L 08/19/2023 2:03 PM EST LABORATORY [facility] Bilirubin, Total 1.3(H) <=1.2 mg/dL 08/19/2023 2:03 PM EST LABORATORY [facility] Calcium 8.9 8.4 - 10.2 mg/dL 08/19/2023 2:03 PM EST LAB[facility]ATORY [facility] Protein 7.4 6.0 - 8.3 g/dL 08/19/2023 2:03 PM EST LAB[facility]ATORY [facility] ALT 18 10 - 35 U/L 08/19/2023 2:03 PM EST LAB[facility]ATORY [facility] Blood Venous blood specimen / Unknown Venipuncture / Unknown 08/19/2023 1:19 PM EST 08/19/2023 1:28 PM EST [place] Jr., PA-C LAB BLOOD ORDERABLES LAB[facility]ATORY [facility] [address] [place] [address] * (ABNORMAL) BLOOD GAS, VENOUS (08/19/2023 1:19 PM EST) Temperature 37.0 C 08/19/2023 1:34 PM EST LABORATORY [facility] pH, Venous 7.422 7.320 - 7.430 units 08/19/2023 1:34 PM EST LABORATORY [facility] pCO2, Venous 40.5 40.0 - 60.0 mmHg 08/19/2023 1:34 PM EST LAB[facility]ATORY [facility] pO2, Venous 28.7 25.0 - 50.0 mmHg 08/19/2023 1:34 PM EST LABORATORY [facility] Base Excess, Venous 1.7 -2.0 - 2.0 mmol/L 08/19/2023 1:34 PM EST LAB[facility]AT[facility] Hemoglobin, Whole Blood 14.3 12.0 - 15.3 g/dL 08/19/2023 1:34 PM EST [facility] Oxyhemoglobin, Venous 46.7 40.0 - 85.0 % total Hgb 08/19/2023 1:34 PM EST [facility] Carboxyhemoglobi n, Whole Blood 1.6(H) <=1.5 % total Hgb 08/19/2023 1:34 PM EST [facility] Comment:Smokers: 0-9.0 % Methemoglobin, Whole Blood 0.7 <=1.5 % total Hgb 08/19/2023 1:34 PM EST [facility] Reduced Hemoglobin, Venous 51.0 % total Hgb 08/19/2023 1:34 PM EST [facility] O2 Content, Venous 9.3 7.0 - 18.0 %vol 08/19/2023 1:34 PM EST [facility] Bicarbonate, Whole Blood 26.3 23.0 - 31.0 mmol/L 08/19/2023 1:34 PM EST LABORATORY [facility] Blood Venous blood specimen / Unknown Venipuncture / Unknown 08/19/2023 1:19 PM EST 08/19/2023 1:28 PM EST Wilson River Jr., PA-C LAB BLOOD ORDERABLES LABORATORY [id number] [place] [address] * APTT (08/19/2023 1:19 PM EST) aPTT 36 21 - 38 seconds 08/19/2023 1:41 PM EST LABORATORY [facility] Blood Venous blood specimen / Unknown Venipuncture / Unknown 08/19/2023 1:19 PM EST 08/19/2023 1:28 PM EST Narrative LABORATORY [facility] - 08/19/2023 1:41 PM EST Anticoagulation may affect testing. Refer to [employer] Test Catalog for a list of effects. Wilson River Jr., PA-C LAB BLOOD ORDERABLES Performing Organization Address [facility] [address]/[facility] Phone Number LABORATORY [address] [phone] * (ABNORMAL) PT INR (08/19/2023 1:19 PM EST) Prothrombin Time 16.6(H) 11.6 - 15.2 seconds 08/19/2023 1:41 PM EST LABORATORY [facility] INR 1.3(H) 0.8 - 1.2 08/19/2023 1:41 PM EST LABORATORY [facility] Blood Venous blood specimen / Unknown Venipuncture / Unknown 08/19/2023 1:19 PM EST 08/19/2023 1:28 PM EST Narrative LABORATORY [facility] - 08/19/2023 1:41 PM EST Warfarin Therapy INR: 2.0-3.0 conventional anticoagulation INR: 2.5-3.5 high intensity anticoagulation Wilson River Jr., PA-C LAB BLOOD ORDERABLES Performing Organization Address [facility] [address]/[facility] Phone Number LABORATORY [address] [phone] * (ABNORMAL) TROPONIN T, HIGH SENSITIVITY (08/19/2023 1:19 PM EST) Pathologist [facility] Troponin T, High Sensitivity 26(H) <=14 ng/L 08/19/2023 1:57 PM EST LABORATORY [facility] Blood Venous blood specimen / Unknown Venipuncture / Unknown 08/19/2023 1:19 PM EST 08/19/2023 1:28 PM EST Wilson River Jr., PA-C LAB BLOOD ORDERABLES Performing Organization Address [facility] [address]/[facility] Co de Phone Number LABORATORY [address] [phone] * (ABNORMAL) BNP, NT-PRO (08/19/2023 1:19 PM EST) BNP, NT-Pro 9,805(H) <300 pg/mL 08/19/2023 2:01 PM EST LABORATORY [facility] Blood Venous blood specimen / Unknown Venipuncture / Unknown 08/19/2023 1:19 PM EST 08/19/2023 1:28 PM EST Narrative LABORATORY [facility] - 08/19/2023 2:01 PM EST Exclude Heart Failure: <300 pg/mL Diagnose Heart Failure: Age <50 yr: >450 pg/mL 50-75 yr: >900 pg/mL >75 yr: >1800 pg/mL GFR is 30-59 mL/min: >1200 pg/mL or Age-adjusted values GFR <30 mL/min: do not use, not reliable Prognostic threshold: 1000 pg/mL Wilson River Jr., PA-C LAB BLOOD ORDERABLES Performing Organization Address [facility] [address]/[facility] de Phone Number LABORATORY [facility] [address] [place] [address] * EKG (08/19/2023 12:49 PM EST) 08/19/2023 12:4 9 PM EST Narrative Procedure Note Sid Guido MD - 08/19/2023 12:49 PM EST REASON FOR STUDY: SOB CONCLUSIONS: Normal sinus rhythm Left anterior fascicular block Lateral infarct (cited on or before 14-DEC-2022) Abnormal ECG When compared with ECG of 30-JUL-2023 08:07, ST no longer depressed in Inferior leads ST now depressed in Lateral leads Nonspecific T wave abnormality no longer evident in Inferior leads Ventricular Rate: 65 Atrial Rate: 65 AR Interval: 138 QRS Duration: 100 QT/QTc: 444/461 ms P-R-T [place]: 0 : -49 : 88 degrees Wilson River Jr., PA-C EKG [facility] documented in this encounter Visit Diagnoses Diagnosis Respiratory failure, acute (HCC)- Primary Acute respiratory failure SOB (shortness of breath) Shortness of breath Respiratory failure (HCC) Acute respiratory failure Chest pain Chest pain, unspecified Pneumonia due to infectious organism, unspecified laterality, unspecified part of lung Acute decompensated heart failure (HCC) Pneumonia Pneumonia, organism unspecified Acute decompensated heart failure (HCC) Hypertrophic cardiomyopathy (HCC) Other hypertrophic cardiomyopathy 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 Given 08/24/2023 8:42 PM EST 650 mg Given 08/22/2023 9:45 PM EST 650 mg Given 08/21/2023 12:51 PM EST 650 mg albuterol-ipratropium (Duoneb) inhalation solution 3 mL 3 mL, Nebulizer, RESPBID, First dose on Mon08/19/23 at 2000, Until Discontinued, 3 mL = 0.5 mg ipratropium/ 2.5 mg albuterol Given 08/25/2023 7:16 AM EST 3 mL Given 08/24/2023 8:41 PM EST 3 mL Given 08/24/2023 7:47 AM EST 3 mL aspirin enteric coated tab 81 mg 81 mg, Oral, Daily(AM), First dose on Mon08/20/23 at 0900, Until Discontinued Given 08/25/2023 8:21 AM EST 81 mg Given 08/24/2023 8:14 AM EST 81 mg Given 08/23/2023 5:03 AM EST 81 mg atorvaSTATin (Lipitor) tab 20 mg 20 mg, Oral, HS, First dose on Mon08/19/23 at 2200, Until Discontinued Given 08/24/2023 8:43 PM EST 20 mg Given 08/23/2023 8:57 PM EST 20 mg Given 08/22/2023 9:39 PM EST 20 mg Azithromycin (Zithromax) 500 mg in D5W 250 mL ivpb 500 mg, IV Piggyback, ONCE, 1 dose, On 08/19/23 at 1430, IN D5W MIX BEFORE ADMINISTERING New Bag 08/19/2023 4:01 PM EST 500 mg 275 mL/hr Benzonatate (Tessalon Perles) cap 200 mg 200 mg, Oral, TID(AM/NOON/HS), First dose on 08/19/23 at 1630, Until Discontinued, This med should NOT be Crushed or Chewed Given 08/25/2023 2:13 PM EST 200 mg Given 08/25/2023 5:17 AM EST 200 mg Given 08/24/2023 8:42 PM EST 200 mg cefTRIAXone in dextrose (Rocephin) IVPB 1 g IV Piggyback, 1 g, ONCE, 1 dose, On 08/19/23 at 1430, Administer over 30 Minutes New Bag 08/19/2023 3:11 PM EST 1 g 100 mL/hr cefTRIAXone in dextrose (Rocephin) IVPB 1 g IV Piggyback, 1 g, Q24H, 4 doses, First dose on Mon08/20/23 at 0700, Last dose on Mon08/23/23 at 0700, Administer over 30 Minutes New Bag 08/21/2023 6:43 AM EST 1 g 100 mL/hr New Bag 08/20/2023 6:20 AM EST 1 g 100 mL/hr cefTRIAXone in dextrose (Rocephin) IVPB 2 g IV Piggyback, 2 g, Q24H, 2 doses, First dose (after last modification) on Mon08/22/23 at 0700, Last dose on Mon08/23/23 at 0700, Administer over 30 Minutes New Bag 08/23/2023 5:23 AM EST 2 g 100 mL/hr New Bag 08/22/2023 6:02 AM EST 2 g 100 mL/hr dorzolamide-timolol (Cosopt Ocumeter Plus) ophthalmic solution 1 Drop 1 Drop, Both eyes, BID (.AM/PM), First dose on 08/19/23 at 2100, Until Discontinued Given 08/25/2023 8:23 AM EST 1 Drop Given 08/24/2023 8:45 PM EST 1 Drop Given 08/24/2023 9:00 AM EST 1 Drop doxycycline tab 100 mg 100 mg, Oral, Q12H, First dose on Mon08/20/23 at 0900, Last dose on Priti 08/24/23 at 2100, For 5 days Given 08/24/2023 8:42 PM EST 100 mg Given 08/24/2023 8:14 AM EST 100 mg Given 08/23/2023 8:58 PM EST 100 mg Enoxaparin (Lovenox) inj 40 mg 40 mg, Subcutaneous, Q12H, First dose on Mon08/20/23 at 0900, Until Discontinued, If patient is on warfarin, inform provider if daily INR value is 2 or greater! Given 08/20/2023 9:28 AM EST 40 mg Abdomen Left Lower Enoxaparin (Lovenox) inj 40 mg 40 mg, Subcutaneous, Daily(AM), First dose (after last modification) on Mon08/21/23 at 0900, Until Discontinued, If patient is on warfarin, inform provider if daily INR value is 2 or greater! Given 08/25/2023 8:23 AM EST 40 mg Arm R ight Upper Given 08/24/2023 8:14 AM EST 40 mg Ab domen Left Lower Given 08/23/2023 8:11 AM EST 40 mg Ab domen Left Lower Fludrocortisone Acetate (Florinef) tab 100 mcg 100 mcg, Oral, Daily(AM), First dose on Mon08/23/23 at 1215, Until Discontinued Given 08/24/2023 8:14 AM EST 100 mcg Given 08/23/2023 12:09 PM EST 100 mcg fluticasone furoate-vilanterol (BREO ellipta) 100-25 MCG/ACT inhaler 1 Puff 1 Puff, Inhalation, Daily(AM), First dose on Mon08/20/23 at 0900, Until Discontinued Given 08/25/2023 7:17 AM EST 1 Pu ff Given 08/24/2023 7:47 AM EST 1 Puff Given 08/23/2023 7:58 AM EST 1 Puff Furosemide (Lasix) inj 40 mg 40 mg, IV Push, ONCE, On 08/19/23 at 1345, For 1 dose Given 08/19/2023 1:47 PM EST 40 mg Furosemide (Lasix) inj 40 mg 40 mg, IV Push, BID (0900, 1600), First dose (after last reorder) on Mon08/20/23 at 0900, Until Discontinued Given 08/20/2023 5:00 PM EST 40 mg Given 08/20/2023 9:28 AM EST 40 mg Furosemide (Lasix) tab 40 mg 40 mg, Oral, Daily(AM), First dose on Mon08/21/23 at 1000, Until Discontinued Given 08/21/2023 11:04 AM EST 40 mg Furosemide (Lasix) tab 40 mg 40 mg, Oral, BID (0900, 1600), First dose on Mon08/23/23 at 1045, Until Discontinued Given 08/24/2023 4:40 PM EST 40 m g Given 08/24/2023 8:14 AM EST 40 mg Furosemide (Lasix) tab 40 mg 40 mg, Oral, Daily(AM), First dose (after last modification) on Mon08/25/23 at 0900, Until Discontinued Given 08/25/2023 8:21 AM EST 40 mg guaiFENesin-dm (Robitussin DM) oral syrup 10 mL 10 mL, Oral, Q6H, First dose on Mon08/22/23 at 0915, Until Discontinued Given 08/22/2023 5:57 PM EST 10 mL Given 08/22/2023 9:06 AM EST 10 mL guaiFENesin-dm (Robitussin DM) oral syrup 10 mL 10 mL, Oral, Q6H PRN Cough, Starting on Mon08/23/23 at 1130, Until Mon08/25/23 at 1925 isolyte 250 mL bolus infusion Intravenous, Administer entire volume within 60 minutes or less. Plasma-LYTE 148, isolyte-S, and isolyte-S pH 7.4 are considered equivalent - including for MAR barcode scanning., ONCE, 1 dose, On Mon08/21/23 at 1900 New Bag 08/21/2023 6:49 PM EST 250 mL 250 mL/h r isolyte 500 mL bolus infusion Intravenous, Administer entire volume within 60 minutes or less. Plasma-LYTE 148, isolyte-S, and isolyte-S pH 7.4 are considered equivalent - including for MAR barcode scanning., ONCE, 1 dose, On Mon08/21/23 at 1530 Restarted 08/21/2023 4:10 PM EST 500 mL/h r New Bag 08/21/2023 3:21 PM EST 500 mL 500 mL/hr isolyte 500 mL bolus infusion Intravenous, Administer entire volume within 60 minutes or less. Plasma-LYTE 148, isolyte-S, and isolyte-S pH 7.4 are considered equivalent - including for MAR barcode scanning., ONCE, 1 dose, On Mon08/22/23 at 1730 Rate Change 08/22/2023 6:10 PM EST 5 mL/hr New Bag 08/22/2023 5:11 PM EST 500 mL 500 mL/hr Latanoprost (Xalatan) 0.005 % ophthalmic solution 1 Drop 1 Drop, Both eyes, HS, First dose on Mon08/19/23 at 2200, Until Discontinued Given 08/24/2023 8:45 PM EST 1 Drop Given 08/23/2023 8:57 PM EST 1 Drop Given 08/22/2023 9:41 PM EST 1 Drop Menthol (Mobile) cough drop 1 Lozenge 1 Lozenge, Oral, Q2H PRN Sore throat, Dry Mouth, Starting on Mon08/19/23 at 2305, Until Mon08/25/23 at 1925 Given 08/20/2023 10:08 PM EST 1 Lozenge Given 08/20/2023 10:44 AM EST 1 Lozenge Given 08/20/2023 12:00 AM EST 1 Lozenge methIMAzole (Tapazole) tab 2.5 mg 2.5 mg, Oral, Daily(AM), First dose on Mon08/21/23 at 0900, Until Discontinued Given 08/25/2023 8:21 AM EST 2.5 mg Given 08/24/2023 8:14 AM EST 2.5 mg Given 08/23/2023 8:10 AM EST 2.5 mg midodrine (Proamatine) tab 10 mg 10 mg, Oral, TID 06;12;18, First dose (after last modification) on Mon08/23/23 at 1200, Until Discontinued Given 08/25/2023 2:13 PM EST 10 mg Given 08/25/2023 5:17 AM EST 10 mg Given 08/24/2023 6:14 PM EST 10 mg midodrine (Proamatine) tab 5 mg 5 mg, Oral, ONCE, On Mon08/23/23 at 0815, For 1 dose Given 08/23/2023 8:10 AM EST 5 mg NSS 0.9% 250 mL bolus infusion Intravenous, Administer entire volume within 60 minutes or less., ONCE, 1 dose, On Mon08/22/23 at 0115 Rate Change 08/22/2023 1:52 AM EST 5 mL/hr Rate Verify 08/22/2023 12:55 AM EST 250 mL/hr New Bag 08/22/2023 12:52 AM EST 250 mL 250 mL/hr ondansetron (Zofran) inj 4 mg 4 mg, IV Push, Q6H PRN Nausea, Starting on Mon08/19/23 at 1426, Until Mon08/25/23 at 1925 oxygen GAS Inhalation, OXYGEN, First dose on Mon08/19/23 at 1815, Until Discontinued, Device/Managed by: Low Flow Device, [...] than or equal to 93% Oxygen On 08/25/2023 8:00 AM EST Oxygen On 08/24/2023 11:41 PM EST 2 L/min(Oxygen) Oxygen On 08/24/2023 11:22 PM EST 1 L/min(Oxygen) potassium chloride ER tab 40 mEq 40 mEq, Oral, ONCE, On Mon08/21/23 at 0700, For 1 dose, This med should NOT be Crushed or Chewed Given 08/21/2023 7:58 AM EST 40 mEq potassium chloride ER tab 40 mEq 40 mEq, Oral, ONCE, On Mon08/23/23 at 0745, For 1 dose, This med should NOT be Crushed or Chewed Given 08/23/2023 8:11 AM EST 40 mEq sodium chloride 0.9 % flush/inj 3 mL 3 mL, IV Push, PRN Other, Line Patency, Starting on 08/19/23 at 1425, Until Mon08/25/23 at 1925, Do not flush if lock, PICC, or central line not in place, IV infusing or unable to flush Given 08/24/2023 8:45 PM EST 3 mL traZODone (Desyrel) tab 25 mg 25 mg, Oral, QHS, First dose on Mon08/22/23 at 2200, Until Discontinued Given 08/24/2023 8:42 PM EST 25 mg Given 08/23/2023 8:58 PM EST 25 mg Given 08/22/2023 9:39 PM EST 25 mg Valsartan (Diovan) tab 320 mg 320 mg, Oral, Daily(AM), First dose on Mon08/20/23 at 0900, Until Discontinued Given 08/21/2023 7:58 AM EST 320 mg Given 08/20/2023 9:28 AM EST 320 mg documented in this encounter Active and Recently Administered Medications Times are shown in EST. Scheduled Medication Order 08/23/2023 08/24/2023 08/25/2023 albuterol-ipratropium (Duoneb) inhalation solution 3 mL 3 mL, Nebulizer, RESPBID, First dose on 08/19/23 at 2000, Until Discontinued, 3 mL = 0.5 mg ipratropium/ 2.5 mg albuterol 0758 (Given - Provider: Alejandra Linn, LACEMAKER)2017 (Given - Provider: Thompson. Myranda Patterson RRT) 0747 (Given - Provider: Alejandra Linn RRT)2040 (Given - Provider: Brian Foster LPN) 0716 (Given - Provider: Krystle Cordova, BARRIE) aspirin enteric coated tab 81 mg 81 mg, Oral, Daily(AM), First dose on Mon08/20/23 at 0900, Until Discontinued 502 (Given - Provider: Linda Harmon RN) 0814 (Given - Provider: Mikala Calero RN) 08 (Given - Provider: Luisito Cameron RN) atorvaSTATin (Lipitor) tab 20 mg 20 mg, Oral, HS, First dose on Mon08/19/23 at 2200, Until Discontinued 2056 (Given - Provider: Rosmery Sen LPN) 2042 (Given - Provider: Brian Foster LPN) Benzonatate (Tessalon Perles) cap 200 mg 200 mg, Oral, TID(AM/NOON/HS), First dose on Mon08/19/23 at 1630, Until Discontinued, This med should NOT be Crushed or Chewed 0503 (Given - Provider: Linda Harmon RN)1209 (Given - Provider: Hugo Smith, MARTHA)2056 (Given - Provider: Rosmery Sen LPN) 05 (Given - Provider: Linda Harmon, RN)123 (Given - Provider: Mikala Calero RN)2041 (Given - Provider: Brian Foster LPN) 0517 (Given - Provider: Linda Harmon, RN)1413 (Given - Provider: Luisito Cameron, RN) cefTRIAXone in dextrose (Rocephin) IVPB 2 g (COMPLETED) IV Piggyback, 2 g, Q24H, 2 doses, First dose (after last modification) on Mon08/22/23 at 0700, Last dose on Mon08/23/23 at 0700, Administer over 30 Minutes 0523 (New Bag - Provider: Linda Harmon RN) dorzolamide-timolol (Cosopt Ocumeter Plus) ophthalmic solution 1 Drop 1 Drop, Both eyes, BID (.AM/PM), First dose on Mon08/19/23 at 2100, Until Discontinued 0812 (Given - Provider: Bernice Myers RN)2056 (Given - Provider: Rosmery Sen LPN) 0900 (Given - Provider: Mikala Calero RN)2044 (Given - Provider: Brian Foster LPN) 0823 (Given - Provider: Luisito Cameron, MARTHA) doxycycline tab 100 mg (COMPLETED) 100 mg, Oral, Q12H, First dose on Mon08/20/23 at 0900, Last dose on Mon08/24/23 at 2100, For 5 days 0811 (Given - Provider: Bernice Myers RN)2057 (Given - Provider: Rosmery Sen LPN) 08 (Given - Provider: Mikala Calero RN)2041 (Given - Provider: Brian Lanks, CUFF MAKER) Enoxaparin (Lovenox) inj 40 mg 40 mg, Subcutaneous, Daily(AM), First dose (after last modification) on Mon08/21/23 at 0900, Until Discontinued, If patient is on warfarin, inform provider if daily INR value is 2 or greater! 0811 (Given - Provider: Bernice Myers, RN) 0814 (Given - Provider: Miklaa Calero, RN) 0823 (Given - Provider: Luisito Cameron, RN) Fludrocortisone Acetate (Florinef) tab 100 mcg (CANCELED) 100 mcg, Oral, Daily(AM), First dose on Mon08/23/23 at 1215, Until Discontinued 1209 (Given - Provider: Hugo Smith RN) 0814 (Given - Provider: Mikala Calero RN) fluticasone furoate-vilanterol (BREO ellipta) 100-25 MCG/ACT inhaler 1 Puff 1 Puff, Inhalation, Daily(AM), First dose on Mon08/20/23 at 0900, Until Discontinued 0758 (Given - Provider: Alejandra Linn RRT) 0747 (Given - Provider: Alejandra Linn, BARRIE) 0717 (Given - Provider: Krystle Cordova RRT) Furosemide (Lasix) tab 40 mg (CANCELED) 40 mg, Oral, BID (0900, 1600), First dose on Mon08/23/23 at 1045, Until Discontinued 1045 (Not Given - Provider: Hugo Smith RN - Reason: Clinician Judgement-Notify Provider - Comment: Parul FLORES stated to hold)1600 (Not Given - Provider: Hugo Smith RN - Reason: Clinician Judgement-Notify Provider - Comment: hold per Dr. Sarah) 0814 (Given - Provider: Mikala Calero RN)1640 (Given - Provider: Mikala Calero RN) Furosemide (Lasix) tab 40 mg 40 mg, Oral, Daily(AM), First dose (after last modification) on Mon08/25/23 at 0900, Until Discontinued 08 (Given - Provider: Luisito Cameron, MARTHA) Latanoprost (Xalatan) 0.005 % ophthalmic solution 1 Drop 1 Drop, Both eyes, HS, First dose on Mon08/19/23 at 2200, Until Discontinued 2056 (Given - Provider: Rosmery Sen LPN) 2044 (Given - Provider: Brian Foster LPN) methIMAzole (Tapazole) tab 2.5 mg 2.5 mg, Oral, Daily(AM), First dose on Mon08/21/23 at 0900, Until Discontinued 0810 (Given - Provider: Bernice Myers RN) 0814 (Given - Provider: Mikala Calero RN) 0821 (Given - Provider: Luisito Cameron, RN) midodrine (Proamatine) tab 10 mg 10 mg, Oral, TID 06;12;18, First dose (after last modification) on Mon08/23/23 at 1200, Until Discontinued 1209 (Given - Provider: Hugo Smith RN)1713 (Given - Provider: Hugo Smith RN) 0520 (Given - Provider: Linda Harmon, RN)1235 (Given - Provider: Mikala Calero, RN)1814 (Given - Provider: Mikala Calero RN) 0517 (Given - Provider: Linda Harmon, RN)1413 (Given - Provider: Luisito Cameron, RN) midodrine (Proamatine) tab 5 mg (COMPLETED) 5 mg, Oral, ONCE, On Mon08/23/23 at 0815, For 1 dose 0810 (Given - Provider: Bernice Myers RN) oxygen GAS Inhalation, OXYGEN, First dose on 08/19/23 at 1815, Until Discontinued, Device/Managed by: Low Flow Device, [...] to 93% 0000 (Oxygen On - Provider: Linda Harmon RN)0747 (Oxygen Off - Provider: Hugo Smith RN)1600 (Oxygen Off - Provider: Hugo Smith RN)2000 (Oxygen On - Provider: Linda Harmon RN) 0000 (Oxygen On - Provider: Rosmery Sen LPN)0800 (Oxygen On - Provider: Mikala Calero, RN)1600 (Oxygen On - Provider: Mikala Calero, RN)2322 (Oxygen On - Provider: Linda Harmon, RN)2341 (Oxygen On - Provider: Linda Harmon, RN) 0800 (Oxygen On - Provider: Luisito Cameron, MARTHA) potassium chloride ER tab 40 mEq (COMPLETED) 40 mEq, Oral, ONCE, On Mon08/23/23 at 0745, For 1 dose, This med should NOT be Crushed or Chewed 810 (Given - Provider: Bernice Myers, MARTHA) traZODone (Desyrel) tab 25 mg 25 mg, Oral, QHS, First dose on Mon08/22/23 at 2200, Until Discontinued 2057 (Given - Provider: Rosmery Sen LPN) 2041 (Given - Provider: Brian Foster LPN) PRN Medication Order 08/23/2023 08/24/2023 08/25/2023 Acetaminophen (Tylenol) tab 650 mg 650 mg, Oral, Q6H PRN Pain, Mild, Fever >38C(100.5F), Starting on 08/19/23 at 1426, Until Mon08/25/23 at 1925, Maximum of 4 grams (4000 mg) per day. 2041 (Given - Provider: Brandon Foster LPN) guaiFENesin-dm (Robitussin DM) oral syrup 10 mL 10 mL, Oral, Q6H PRN Cough, Starting on Mon08/23/23 at 1130, Until Mon08/25/23 at 1925 Menthol (Mobile) cough drop 1 Lozenge 1 Lozenge, Oral, Q2H PRN Sore throat, Dry Mouth, Starting on 08/19/23 at 2305, Until Mon08/25/23 at 1925 ondansetron (Zofran) inj 4 mg 4 mg, IV Push, Q6H PRN Nausea, Starting on 08/19/23 at 1426, Until Mon08/25/23 at 1925 sodium chloride 0.9 % flush/inj 3 mL 3 mL, IV Push, PRN Other, Line Patency, Starting on 08/19/23 at 1425, Until 08/25/23 at 1925, Do not flush if lock, PICC, or central line not in place, IV infusing or unable to flush 2044 (Given - Provider: Brandon Foster LPN) documented in this encounter Additional Health Concerns Infection Onset Date Last Indicated Resolved Time COVID-19 (confirmed) 07/30/2023 07/30/2023 024 12:18 AM EST Respiratory Rule-Out 08/19/2023 08/19/2023 024 2:18 PM EST COVID-19 Rule-Out 08/19/2023 08/19/2023 08/19/2023 2:18 PM EST documented as of this encounter [...] the patient have Health Care Power of Bike Mechanic? No Code Status History Code Status Date Activated Date Inactivated Comments Full Code 07/30/2023 11:50 AM 08/02/2023 5:34 [...] the patient have Health Care Power of Bike Mechanic? No Full Code 09/30/2021 6:01 PM 09/30/2021 6:02 PM This or yadin reflects the patients wishes and were consensually agreed upon. Question Answer Comments Discussion of Advance Directives occurred with: Patient/Family Does the patient have a Living Will? No Does the patient have Health Care Power of Bike Mechanic? No Care Teams Tyre Retreader Relationship Specialty Start Date End Date Jeanna Bal PA-C [address] [facility] [place] [id number] [id number] PCP - General Physician Grip Assembler 06/13/17 documented as of this encounter
--- OUTSIDE RECORDS SUMMARY | 2023-12-06 21:51 | External Medical Summary ---
Author Name Unknown Address Unknown Organization K1G:LABORATORY [facility] - [address] [place] [id number] Laboratory Report Ordering Provider Test Date Status NINA LARSEN 08/20/2023 06:06:00 Final Observation Date Value Abnormality Reference (Units ) Status Magnesium 08/20/2023 06:06:00 1.9 1.5-2.6 (m g/dL) Final Performing Location LABORATORY [facility] - [address] [facility] [id number]
--- OUTSIDE RECORDS SUMMARY | 2023-12-06 21:51 | External Medical Summary ---
Author Name Unknown Address Unknown Organization K1G:LABORATORY [facility] - [address] [place] [id number] Laboratory Report Ordering Provider Test Date Status NINA LARSEN 08/22/2023 05:27:00 Final Observation Date Value Abnormality Reference (Units ) Status WBC, Total 08/22/2023 05:27:00 6.55 4.00-10.8 0 (K/uL) Final RBC 08/22/2023 05:27:00 4.36 3.85-5.15 (M/uL) Final Hemoglobin 08/22/2023 05:27:00 12.7 12.0-15.3 (g/dL) Final HCT 08/22/2023 05:27:00 37.9 36.0-45.2 (%) Final MCV 08/22/2023 05:27:00 86.9 81.5-97.5 (fL) Final MCH 08/22/2023 05:27:00 29.1 27.0-34.0 (pg) Final MCHC 08/22/2023 05:27:00 33.5 32.0-36.0 (g/dL) Final RDW 08/22/2023 05:27:00 15.0 11.5-15.5 (%) Final Platelets 08/22/2023 05:27:00 221 140-400 (K /uL) Final MPV 08/22/2023 05:27:00 9.1 6.6-11.1 ( fL) Final Performing Location LABORATORY [facility] - [address] [facility] [id number]
--- OUTSIDE RECORDS SUMMARY | 2023-12-06 21:51 | External Medical Summary ---
Author Name Unknown Address Unknown Organization K1G:LABORATORY [facility] - [address] [place] [id number] Laboratory Report Ordering Provider Test Date Status NINA LARSEN 08/25/2023 05:31:00 Final Observation Date Value Abnormality Reference (Units ) Status WBC, Total 08/25/2023 05:31:00 4.26 4.00-10.8 0 (K/uL) Final RBC 08/25/2023 05:31:00 4.71 3.85-5.15 (M/uL) Final Hemoglobin 08/25/2023 05:31:00 13.6 12.0-15.3 (g/dL) Final HCT 08/25/2023 05:31:00 40.1 36.0-45.2 (%) Final MCV 08/25/2023 05:31:00 85.1 81.5-97.5 (fL) Final MCH 08/25/2023 05:31:00 28.9 27.0-34.0 (pg) Final MCHC 08/25/2023 05:31:00 33.9 32.0-36.0 (g/dL) Final RDW 08/25/2023 05:31:00 15.0 11.5-15.5 (%) Final Platelets 08/25/2023 05:31:00 147 140-400 (K /uL) Final MPV 08/25/2023 05:31:00 10.0 6.6-11.1 ( fL) Final Performing Location LABORATORY [facility] - [address] [facility] [address]
--- OUTSIDE RECORDS SUMMARY | 2023-12-06 21:51 | External Medical Summary ---
Author Name Unknown Address Unknown Organization K1G:LABORATORY [facility] - [address] [place] [phone] Laboratory Report Ordering Provider Test Date Status NINA LARSEN 08/22/2023 05:27:00 Final Observation Date Value Abnormality Reference (Units ) Status BUN 08/22/2023 05:27:00 34 Above high normal 6-20 (mg/dL) Final Creatinine 08/22/2023 05:27:00 1.3 Above high normal 0.5-1.0 (mg/dL) Final Glomerular filtration rate/1.73 sq M.predicted [Volume Rate/Area] in Serum, Plasma or Blood by Creatinine-based formula (CKD-EPI) 08/22/2023 05:27:00 39 Below low normal >=60 (mL/min) Final eGFR is calculated based on the CKD-EPI 2020 equation SODIUM 08/22/2023 05:27:00 127 Below low normal 135 -146 (mmol/L) Final Potassium 08/22/2023 05:27:00 3.5 3.5-5.1 (m mol/L) Final Cl 08/22/2023 05:27:00 92 Below low normal 98- 107 (mmol/L) Final CO2 08/22/2023 05:27:00 21 Below low normal 22- 32 (mmol/L) Final Anion gap 08/22/2023 05:27:00 14 7-15 (mmol /L) Final Glucose 08/22/2023 05:27:00 114 70-120 (mg /dL) Final Calcium 08/22/2023 05:27:00 8.7 8.4-10.2 ( mg/dL) Final Performing Location LABORATORY [facility] - [address] [facility] [phone]
--- OUTSIDE RECORDS SUMMARY | 2023-12-06 21:51 | External Medical Summary ---
Author Name Unknown Address Unknown Organization K1G:LABORATORY [facility] - [address] [place] [phone] Laboratory Report Ordering Provider Test Date Status NINA LARSEN 08/21/2023 05:15:00 Final Observation Date Value Abnormality Reference (Units ) Status BUN 08/21/2023 05:15:00 20 6-20 (mg/dL) Final Creatinine 08/21/2023 05:15:00 1.0 0.5-1.0 (mg/dL) Final Glomerular filtration rate/1.73 sq M.predicted [Volume Rate/Area] in Serum, Plasma or Blood by Creatinine-based formula (CKD-EPI) 08/21/2023 05:15:00 54 Below low normal >=60 (mL/min) Final eGFR is calculated based on the CKD-EPI 2020 equation SODIUM 08/21/2023 05:15:00 131 Below low normal 135 -146 (mmol/L) Final Potassium 08/21/2023 05:15:00 3.2 Below low normal 3.5 -5.1 (mmol/L) Final Cl 08/21/2023 05:15:00 95 Below low normal 98- 107 (mmol/L) Final CO2 08/21/2023 05:15:00 23 22-32 (mmo l/L) Final Anion gap 08/21/2023 05:15:00 13 7-15 (mmol /L) Final Glucose 08/21/2023 05:15:00 119 70-120 (mg /dL) Final Calcium 08/21/2023 05:15:00 8.4 8.4-10.2 ( mg/dL) Final Performing Location [facility] [address] [facility] [address]
--- OUTSIDE RECORDS SUMMARY | 2023-12-06 21:51 | External Medical Summary ---
Author Name Unknown Address Unknown Organization K1G:LABORATORY [facility] - [address] [place] [phone] Laboratory Report Ordering Provider Test Date Status NINA LARSEN 08/23/2023 05:57:00 Final Observation Date Value Abnormality Reference (Units ) Status Magnesium 08/23/2023 05:57:00 2.0 1.5-2.6 (m g/dL) Final Performing Location LABORATORY [facility] - [address] [facility] [phone]
--- OUTSIDE RECORDS SUMMARY | 2023-12-06 21:51 | External Medical Summary ---
Author Name Unknown Address Unknown Organization K1G:LABORATORY [facility] - [address] [place] [phone] Laboratory Report Ordering Provider Test Date Status NINA LARSEN 08/25/2023 05:31:00 Final Observation Date Value Abnormality Reference (Units ) Status Magnesium 08/25/2023 05:31:00 2.1 1.5-2.6 (m g/dL) Final Performing Location LABORATORY [facility] - [address] [facility] [phone]
--- OUTSIDE RECORDS SUMMARY | 2023-12-06 21:51 | External Medical Summary ---
Author Name Unknown Address Unknown Organization K1G:LABORATORY [facility] - [facility] [address] Laboratory Report Ordering Provider Test Date Status NINA LARSEN 08/20/2023 06:06:00 Final Observation Date Value Abnormality Reference (Units ) Status WBC, Total 08/20/2023 06:06:00 9.52 4.00-10.8 0 (K/uL) Final RBC 08/20/2023 06:06:00 4.25 3.85-5.15 (M/uL) Final Hemoglobin 08/20/2023 06:06:00 12.4 12.0-15.3 (g/dL) Final HCT 08/20/2023 06:06:00 37.7 36.0-45.2 (%) Final MCV 08/20/2023 06:06:00 88.7 81.5-97.5 (fL) Final MCH 08/20/2023 06:06:00 29.2 27.0-34.0 (pg) Final MCHC 08/20/2023 06:06:00 32.9 32.0-36.0 (g/dL) Final RDW 08/20/2023 06:06:00 15.3 11.5-15.5 (%) Final Platelets 08/20/2023 06:06:00 262 140-400 (K /uL) Final MPV 08/20/2023 06:06:00 9.1 6.6-11.1 ( fL) Final Performing Location LABORATORY [facility] - [address] [facility] [address]
--- OUTSIDE RECORDS SUMMARY | 2023-12-06 21:51 | External Medical Summary ---
Author Name Unknown Address Unknown Organization K1G:LABORATORY [facility] - [address] [place] [phone] Laboratory Report Ordering Provider Test Date Status NINA LARSEN 08/21/2023 05:15:00 Final Observation Date Value Abnormality Reference (Units ) Status Magnesium 08/21/2023 05:15:00 1.8 1.5-2.6 (m g/dL) Final Performing Location LABORATORY [facility] - [address] [facility] [address]
--- OUTSIDE RECORDS SUMMARY | 2023-12-06 21:51 | External Medical Summary ---
Author Name Unknown Address Unknown Organization K1G:[facility]ORY [facility] - [address] [place] [phone] Laboratory Report Ordering Provider Test Date Status NINA LARSEN 08/23/2023 05:57:00 Final Observation Date Value Abnormality Reference (Units ) Status BUN 08/23/2023 05:57:00 41 Above high normal 6-20 (mg/dL) Final Creatinine 08/23/2023 05:57:00 1.2 Above high normal 0.5-1.0 (mg/dL) Final Glomerular filtration rate/1.73 sq M.predicted [Volume Rate/Area] in Serum, Plasma or Blood by Creatinine-based formula (CKD-EPI) 08/23/2023 05:57:00 44 Below low normal >=60 (mL/min) Final eGFR is calculated based on the CKD-EPI 2020 equation SODIUM 08/23/2023 05:57:00 124 Below low normal 135 -146 (mmol/L) Final Potassium 08/23/2023 05:57:00 3.3 Below low normal 3.5 -5.1 (mmol/L) Final Cl 08/23/2023 05:57:00 90 Below low normal 98- 107 (mmol/L) Final CO2 08/23/2023 05:57:00 22 22-32 (mmo l/L) Final Anion gap 08/23/2023 05:57:00 12 7-15 (mmol /L) Final Glucose 08/23/2023 05:57:00 117 70-120 (mg /dL) Final Calcium 08/23/2023 05:57:00 8.5 8.4-10.2 ( mg/dL) Final Performing Location LABORATORY [facility] - [address] [facility] [address]
--- OUTSIDE RECORDS SUMMARY | 2023-12-06 21:52 | External Medical Summary | Summary of Care ---
Author Name Unknown Organization [facility] Address [address] [place] [address] Phone [phone] Care Team Providers Care Health Program Manager Name Role Phone Jeanna Bal PA-C Primary Care Provi aydin Reason for Visit * Reason Onset Date Comments Hospital Follow-Up 08/02/2023 Encounter Details Date Type Department Care Team (Late st Contact Info) Description 08/02/2023 Telephone [facility] Hospitalist [address] [place] [address] Ghada Leon PA-C [address] [facility] [address] Hospital Follow-Up Allergies Active Allergy Reactions Criticality Noted Date Comments Amoxicillin Hives Medium 03/22/2016 Gatifloxacin Nausea/vomiting 03/22/2016 Latex Rash 03/22/2016 Other reaction(s): johnson documented as of this encounter (statuses as of 08/02/2023) Medications Medication Sig Dispensed Refills Start Date [...] Magnesium Oxide 400 MG Oral Tablet Take 0.5 Tablets by mouth in the morning and 0.5 Tablets before bedtime. Has 200 mg tabs over the counter, 2 tabs in Am and 2 tabs in PM. 0 03/21/2020 Active methIMAzole 5 MG Oral [...] 2 Capsules before bedtime. 0 11/07/2022 Active Torsemide 5 MG Oral Tablet (Demadex)Indication s:Hypertrophic cardiomyopathy (HCC),Essential hypertension with goal blood pressure less than 140/90 Take 2 Tablets by mouth in the morning. 60 Tablet 0 08/02/2023 4 Active Valsartan 160 MG Oral Tablet (Diovan) Take 1 Tablet by mouth in the morning. Brand name medically necessary. 30 Tablet 2 08/02/2023 Active Valsartan 160 MG Oral Tablet (Diovan) Take 1 Tablet by mouth in the morning. 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 07/30/2023 Graves disease 09/30/2021 Hypertrophic cardiomyopathy 06/21/2020 Nonrheumatic mitral valve stenosis 06/21/2020 Ascending aortic 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 Coronary artery disease invo lving [place] coronary artery of [place] heart without angina pectoris 03/22/2016 Essential hypertension with goal blood pressure less than 140/90 03/22/2016 Dyslipidemia, goal to be determined 03/22/2016 documented as of this encounter (statuses as of 08/02/2023) Resolved Problems Problem Noted Date Diagnosed Date Resolved Date Acute respiratory failure due to COVID-19 07/30/2023 08/01/2023 Pneumonia due to COVID-19 virus 07/30/2023 08/01/2023 NSTEMI (non-ST elevated myoc ardial infarction) 09/30/2021 10/05/2021 Pain in both lower extremities 03/22/2016 07/30/2023 documented as of this encounter (statuses as of 08/02/2023) Social History Tobacco Use Types Packs/Day Years Used Date Smoking Tobacco: Never Smokeless Tobacco: Never Alcohol Use Standard Drinks/Week Comments Not Currently [...] (15 years old or older) No 07/30/20 23 Cognitive Status Response Date of Assessm ent Because of a physical, menta l, or emotional condition, do you have serious difficulty concentrating, remembering, or making decisions? (5 years old or older) No 07/30/2023 documented as of this encounter Miscellaneous Notes * Telephone Encounter - Ghada Leon PA-C - 08/02/2023 3:35 PM EST Received call from [facility] @[phone] that Diovan prescription needed to be updated to brand name only. New prescription sent to pharmacy. Ghada Leon PA-C documented in this encounter Plan of Treatment Upcoming Encounters Date Type Department Care Team (Late st Contact Info) Description 08/08/2023 10:30 AM EST Office Visit Pulmonary Medicine, [place] [address] [place] [address] Yocasta Proctor CRNP [address] [place] [address] 09/06/2023 9:00 AM EST Office Visit Cardiology, [facility] [address] [place] [phone] Jennifer Queen PA-C [address] [place] [phone] Health Maintenance Due Date Last Done Comments Pneumococcal Vaccine: 65+ Years (1 - PCV) 11/29/1941 Depression Screening 1947 Albumin/Creatinine Ratio 11/29/1953 DTaP,Tdap,and Td Vaccines (1 - Tdap) 1954 Zoster Vaccines (2 of 3) 08/23/2012 06/28/2012 COVID-19 Vaccine (2 - 2022-2 4 season) 2023 08/05/2022 Influenza Vaccine (FLU shot) (#1) 2023 DXA Scan 04/03/2027 04/03/2020, 04/03/2020 GARDASIL-HPV IMMUNIZATION SERIES Aged Out No longer eligible b ased on patient's age to complete this topic Hepatitis B Aged Out No longer eligi ble based on patient's age to complete this topic MENINGOCOCCAL (MENACTRA/MENVEO) Aged Out No longer eligible b ased on patient's age to complete this topic documented as of this encounter Medical Devices Not on filedocumented as of this encounter Additional Health Concerns Infection Onset Date Last Indicated Resolved Time COVID-19 (confirmed) 07/30/2023 07/30/2023 documented as of this encounter Advance Directives Latest Code Status on File Code Status Date Activated Date Inactivated Comments Full Code 07/30/2023 11:50 AM This ord er reflects the patients wishes and were consensually agreed upon. Question Answer Comments Discussion of Advance Directives occurred with: Patient Code Status History Code Status Date Activated Date Inactivated Comments Full Code 10/01/2021 4:02 PM 10/05/2021 5:45 [...] the patient have Health Care Power of Scale Balancer? No Full Code 09/30/2021 6:01 PM 09/30/2021 6:02 PM This or aydin reflects the patients wishes and were consensually agreed upon. Question Answer Comments Discussion of Advance Directives occurred with: Patient/Family Does the patient have a Living Will? No Does the patient have Health Care Power of Scale Balancer? No Care Teams Health Program Manager Relationship Specialty Start Date End Date Jeanna Bal PA-C [address] [facility] [address] [place] [address] [place] [id number] PCP - General Physician Digital Printer Operator 06/13/17 documented as of this encounter
--- OUTSIDE RECORDS SUMMARY | 2023-12-06 21:52 | External Medical Summary ---
Author Name Unknown Address Unknown Organization K1G:LABORATORY [facility] - [address] [place] [phone] Laboratory Report Ordering Provider Test Date Status SONIA BANGURA JR 08/19/2023 13:19:12 Final Observation Date Value Abnormality Reference (Units ) Status SYNC LEUKOCYTES IN BLOOD BY AUTOMATED COUNT 08/19/2023 13:19:12 9.92 4.00-10.80 (K/uL) Final Neutrophils/100 leukocytes in Blood by Manual count 08/19/2023 13:19:12 80.0 Above high normal 40.0-75.0 (%) Final Lymphocytes/100 leukocytes in Blood by Manual count 08/19/2023 13:19:12 10.0 Below low normal 18.0-42.0 (%) Final Monocytes/100 leukocytes in Blood by Manual count 08/19/2023 13:19:12 5.0 1.0-11.0 (%) Final Eosinophils/100 leukocytes in Blood by Manual count 08/19/2023 13:19:12 5.0 0.0-6.0 (%) Final Neutrophils [#/volume] in Blood by Manual count 08/19/2023 13:19:12 7.94 Above high normal 1.80-7.70 (K/uL) Final Lymphocytes [#/volume] in Blood by Manual count 08/19/2023 13:19:12 0.99 Below low normal 1.00-4.80 (K/uL) Final Monocytes [#/volume] in Blood by Manual count 08/19/2023 13:19:12 0.50 0.00-1.10 (K/uL) Final Eosinophils [#/volume] in Blood by Manual count 08/19/2023 13:19:12 0.50 0.00-0.70 (K/uL) Final Nucleated erythrocytes/100 leukocytes [Ratio] in Blood by Automated count 08/19/2023 13:19:12 Final Performing Location LABORATORY [facility] - [address] [facility] [address]
--- OUTSIDE RECORDS SUMMARY | 2023-12-06 21:52 | External Medical Summary ---
Author Name Unknown Address Unknown Organization K1G:LABORATORY [facility] - [address] [place] [phone] Laboratory Report Ordering Provider Test Date Status SONIA BANGURA JR 08/19/2023 13:19:12 Final Observation Date Value Abnormality Reference (Units ) Status Troponin T 08/19/2023 13:19:12 26 Above high normal < =14 (ng/L) Final Performing Location LABORATORY [facility] - [address] [place] [phone]
--- OUTSIDE RECORDS SUMMARY | 2023-12-06 21:52 | External Medical Summary ---
Author Name UNSPECIFIED Address Unknown Organization [facility] History of Encounters Reason for Assessment: Start of care - f urther visits planned Inpatient discharge facility: Past 14 Da ys: Discharged From Short Stay Acute Hospital Most Recent Inpatient Discharge Date: Functional Assessment Patient Living Situation: Patient Lives Alone: Around the clock When Dyspneic: When walking more th an 20 feet, climbing stairs Bowel Incontinence Frequency: Very rarel y or [...] [facility] Diagnosis 2: ICD Code: I34.2, Nonrheumatic mitral (valve) stenosis Home Care Diagnosis 2: Severity [facility] Home [facility] Diagnosis 3: ICD Code: I42.2, Other hypertrophic cardiomyopathy Home Care Diagnosis 3: Severity [facility] Home [facility] Diagnosis 4: ICD Code: Z79.82, 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
--- OUTSIDE RECORDS SUMMARY | 2023-12-06 21:52 | External Medical Summary | Summary of Care ---
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 Emily Comments Documentation of Lack-ur-Dqzx Encounter Addendum Patient Name: Maria Luisa Recinos I certify that this patient is under my care and that I, or a nurse practitioner or physician's purchasing assistant working with me, had a lwzx-zx-cxjx encounter that meets the physician ijqp-yv-pjgj encounter requirements with this patient on: 08/02/2023 The encounter with the patient was in whole, or in part, for the following medical condition, which is the primary reason for home health care (List medical condition): Medication management I certify that, based on my findings, the following services are medically necessary home health services: Nursing To provide the following care/treatments: (All hospitalists not following the patient after discharge should complete this section): nursing Primary Care Physician to follow home care plan of care after discharge: Jeanna Bal PA-C My clinical findings support the need for the above services because: evaluation per treatment team Further, I certify that my clinical findings support that this patient is homebound (i.e. Absences from home require considerable and taxing effort and are for medical reasons or [facility] or infrequently or of short duration when for other reason) because: Stable for home Physician Signature: Date of Signature: Physician Printed Name: Ghada Leon PA-C Discharge Order Reason for Visit * Reason Comments Short of Breath * Auth/Cert Specialty Diagnoses / Procedures Referred By Kasey nagy Referred To Contact Referral ID Status Reason Start Date Expiration Date Visits Re quested Visits Authorized [id number] Encounter Details Date Type Department Care Team (Latest Contact Info) Description 07/30/2023 7:39 AM EST - 08/02/2023 1:30 PM EST Hospital Encounter [facility], Acute Care Unit, Main Hospital 2nd Floor [address] [place] [address] [place] [address] [place] [id number] Darrell Sarah DO [address] [place] [address] Norberto Crenshaw MD [address] [facility] [place] [address] Various: EKG,CDIQDC,KRAVS Discharge Disposition: Home - Self Care Allergies Active Allergy Reactions Criticality Noted Date Comments Amoxicillin Hives Medium 03/22/2016 Gatifloxacin Nausea/vomiting 03/22/2016 Latex Rash 03/22/2016 Other reaction(s): johnson documented as of this encounter (statuses as of 08/03/2023) Medications Medication Sig Dispensed Refills Start Date End Date Status Aspirin 81 MG TBEC Take 1 Tablet by mouth in the morning. 0 6 Active cholecalciferol, VIT D3, (VITAMIN D3) 1000 UNITS Tablet Take 2 Tablets by mouth daily at noon. 0 5 Active vitamin c (ASCORBIC ACID) 500 MG Tablet Take 1 Tablet by mouth daily at noon. 0 5 Active Vitamin E 400 UNITS Tablet Take 1 Tablet by mouth daily at noon. 0 5 Active Calcium Carbonate 600 MG Tablet Take 1 Tablet by mouth in the morning and 1 Tablet before bedtime. 0 6 Active travoprost, PAVITHRA Free, (TRAVATAN Z) 0.004 % ophthalmic solution Instill 1 Drop into both eyes at bedtime. 0 5 Active Cyanocobalamin (VITAMIN B-12) 1000 MCG Tablet Take 1 Tablet by mouth in the morning. 0 Active Dorzolamide HCl-Timolol Mal 22.3-6.8 MG/ML Ophthalmic Solution (COSOPT OCUMETER PLUS) Instill 1 Drop into both eyes in the morning and 1 Drop before bedtime. 0 0 Active Magnesium Oxide 400 MG Oral Tablet Take 0.5 Tablets by mouth in the morning and 0.5 Tablets before bedtime. Has 200 mg tabs over the counter, 2 tabs in Am and 2 tabs in PM. 0 0 Active methIMAzole 5 MG Oral Tablet (TAPAZOLE) Take 1/2 tablet 6 days per week does not take on monday 0 0 Active Atorvastatin Calcium 20 MG Oral Tablet (Lipitor) Take 1 Tablet by mouth daily. 90 Tablet 6 1 Active Additional Information Patient taking differently:20 mg OralHS, Reported on 07/30/2023 Potassium Chloride ER 10 MEQ Oral Capsule Extended Release Take 2 Capsules by mouth in the morning and 2 Capsules before bedtime. 0 3 Active Torsemide 5 MG Oral Tablet (Demadex)Indicatio ns:Hypertrophic cardiomyopathy (HCC),Essential hypertension with goal blood pressure less than 140/90 Take 2 Tablets by mouth in the morning. 60 Tablet 0 4 09/01/19 24 Active Valsartan-Hydrochl orothiazide 320-25 MG per tablet Take 1 Tablet by mouth in the morning. 0 5 08/02/19 24 Discontinued Metoprolol Succinate ER 25 MG Oral Tablet Extended Release 24 Hour (toPROL XL)Indications:Ess ential hypertension with goal blood pressure less than 140/90 TAKE 1 TABLET BY MOUTH EVERY DAY IN THE MORNING 90 Tablet 3 3 08/02/19 24 Discontinued Torsemide 5 MG Oral Tablet (Demadex)Indicatio ns:Hypertrophic cardiomyopathy (HCC),Essential hypertension with goal blood pressure less than 140/90 TAKE 1 TABLET BY MOUTH EVERY DAY IN THE MORNING 90 Tablet 3 3 08/01/19 24 Discontinued(Re fill) Valsartan 160 MG Oral Tablet (Diovan) Take 1 Tablet by mouth in the morning. 30 Tablet 0 4 08/02/19 24 Discontinued(Me dication/Dose Changed) documented as of this encounter (statuses as of 08/03/2023) Active Problems Problem Noted Date Diagnosed Date Acute on chronic combined sy stolic and diastolic heart failure due to valvular disease 07/30/2023 Graves disease 09/30/2021 Hypertrophic cardiomyopathy 06/21/2020 Nonrheumatic mitral valve stenosis 06/21/2020 Ascending aortic 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 Coronary artery disease invo lving ute coronary artery of ute heart without angina pectoris 03/22/2016 Essential hypertension with goal blood pressure less than 140/90 03/22/2016 Dyslipidemia, goal to be determined 03/22/2016 documented as of this encounter (statuses as of 08/03/2023) Resolved Problems Problem Noted Date Diagnosed Date Resolved Date Acute respiratory failure due to COVID-19 07/30/2023 08/01/2023 Pneumonia due to COVID-19 virus 07/30/2023 08/01/2023 NSTEMI (non-ST elevated myoc ardial infarction) 09/30/2021 10/05/2021 Pain in both lower extremities 03/22/2016 07/30/2023 documented as of this encounter (statuses as of 08/03/2023) Social History Tobacco Use Types Packs/Day Years [...] Sign Reading Time Taken Comments Blood Pressure 164/82 08/02/2023 7:42 AM EST Pulse 48 08/02/2023 7:42 AM EST Temperature 36.3 C (97.4 F) 08/02/2023 7:42 AM ES T Respiratory Rate 17 08/02/2023 7:42 AM EST Oxygen Saturation 98% 08/02/2023 7:42 AM EST Inhaled Oxygen Concentration - - Weight 91 kg (200 lb 11.2 oz) 08/01/2023 8:00 AM EST Height 149.9 cm (4' 11.02") 07/30/2023 12:55 PM EST Body Mass Index 40.51 07/30/2023 12:55 PM EST documented in this encounter Functional [...] No 07/30/2023 documented as of this encounter Discharge Summaries * Ghada Leon PA-C - 08/02/2023 7:41 AM EST [facility] [address] [facility] [address] Admission Date: 07/30/2023 Discharge Date: 08/02/2023 RECOMMENDED TO DO FOR NEXT PROVIDER(S): Routine PCP follow-up Home Health referral- nursing REASON(S) FOR MEDICATION CHANGE(S): Increase Torsemide to 10mg daily Continue Valsartan only, new prescription ordered at discharge Stop Metoprolol succinate due to bradycardia DISPOSITION ON DISCHARGE: Home with Services (Home with [facility] provided by [facility] first date of service 08/04/23.) Active Hospital Problems Diagnosis 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 In the emergency room was noted to be hypoxic with O2 sat of 87% on room air. In the emergency room tested positive for COVID and was referred for further evaluation. Time of my evaluation the patient was on2 L nasal cannula. She admits to some significant orthopnea over the past week as well. She states that she ran out of her furosemide last week. She has not noticed any significant swelling in her legs however. She also states that over the holiday all of her son's family had a coldwhen they got together for the holiday. She denies any fevers. She does have significant cough. No new problems with the bowels or bladder Constitutional: (+) ill appearing CV: normal rate, normal rhythm, systolic murmur Chest: normal respiratory effort, decreased breath sounds, few fine crackles at bases Abdomen: soft, no tenderness Extremities: no edema Neuro: alert, oriented to person, place, and time HOSPITAL COURSE (focused): Patient is an 87 year old female who was admitted from the ED on 07/30 for acute respiratory failure secondary to COVID-19. Patient started on Decadron and Remdesivir due to COVID-19 diagnosis, completed 3-day course of both medications. Patient able to be weaned to room air on 08/01. Patient also received IV Lasix due to acute heart failure exacerbation, diuresed 3.2L during admission. Patient's BUILDING PRINCIPAL Torsemide increased to 10mg daily on 08/01, which patient tolerated. Patient seen at bedside day ofdischarge 08/02 reporting no pain or concerns, feels better. Patient discharged to home in stable condition with routine PCP follow-up. Torsemide increased to 10mg daily and Valsartan/HCTZ discontinuedin favor of continuing Valsartan only. Patient's Metoprolol XL also discontinued at discharge due to bradycardia noted during admission. Home Health referral placed at discharged for increased nursing assistance at home. Operations & Procedures: none Complications: none significant Significant Lab and Imaging Results: As mentioned above Results Pending at Discharge: Lab Results Pending at Discharge: None MEDICATION UPDATES AT DISCHARGE START taking these medications INSTRUCTIONS Valsartan 160 MG Tablet Commonly known as: Diovan Take 1 Tablet by mouth in the morning. CHANGE how you take these medications INSTRUCTIONS atorvaSTATin 20 MG Tablet Commonly known as: Lipitor What changed: when to take this Take 1 Tablet by mouth daily. Torsemide 5 MG Tablet Commonly known as: Demadex What changed: See the new instructions. Take 2 Tablets by mouth in the morning. CONTINUE taking these medications INSTRUCTIONS aspirin enteric coated 81 MG Tbec Notes to patient: Promotes heart health Take 1 Tablet by mouth in the morning. Calcium Carbonate 600 MG Tablet Notes to patient: Supplement; sometimes used as an antacid Take 1 Tablet by mouth in the morning and 1 Tablet before bedtime. cholecalciferol (VIT D3) 1000 UNITS Tablet Commonly known as: Vitamin D3 Notes to patient: Supplement Take 2 Tablets by mouth daily at noon. dorzolamide-timolol 2.23-0.68% ophthalmic solution Commonly known as: Cosopt Ocumeter Plus Notes to patient: Helps relieve eye pressure Instill 1 Drop into both eyes in the morning and 1 Drop before bedtime. Magnesium Oxide 400 MG Tablet Notes to patient: Supplement Take 0.5 Tablets by mouth in the morning and 0.5 Tablets before bedtime. Has 200 mg tabs over the counter, 2 tabs in Am and 2 tabs in PM. methIMAzole 5 MG Tablet Commonly known as: Tapazole Notes to patient: Treats overactive thyroid Take 1/2 tablet 6 days per week does not take on monday Potassium Chloride ER 10 MEQ Cpcr Notes to patient: Supplement Take 2 Capsules by mouth in the morning and 2 Capsules before bedtime. travoprost (PAVITHRA Free) 0.004 % ophthalmic solution Commonly known as: Travatan Z Notes to patient: Helps relieve eye pressure Instill 1 Drop into both [...] daily at noon. STOP taking these medications metoprolol succinate XL 25 MG Tb24 Commonly known as: toPROL XL Valsartan-hydroCHLOROthiazide 320-25 MG per tablet SCHEDULED FOLLOW-UP: Future Appointments Appt Date/Time Provider Department 08/08/2023 10:30 AM [facility] 09/06/2023 9:00 AM Jennifer Queen PA-C Cardiology, [facility] Outpatient Follow Up Home Health Referral OP Other Information Indwelling Devices: LINES None Vital Signs (last recorded): Most Recent Systolic BP: 164 mmHg (08/02/23741) Most Recent Diastolic BP: 82 mmHg (08/02/23741) Pulse: 48 (08/02/23741) Resp: 17 (08/02/23741) Most Recent Temperature: 36.33 C (08/02/23741) Weight: 91 kg (200 lb 11.2 oz) (08/01/23 0800) SpO2: 98 % (08/02/23741) O2 flow rate: 1 L/MIN (07/31/232215) Allergies: Amoxicillin, Gatifloxacin, and Latex Activity: as tolerated Diet: previous diet Code status (this admission): Full Code Discussion of adv directives occurred with - adult: Patient Condition on Discharge: stable Isolation status: None Cognition: normal HOSPITAL CONSULTS ORDERED: PHARMACY CONSULT IP REFERRING PHYSICIAN: Ref: [id number][[id number]] NO STREET ADDRESS AVAILABLE None (office) None (fax) PRIMARY CARE PROVIDER: PCP: Jeanna Bal PA-C [address] [facility] [place] [address] / [place] [address] (office) [phone] (fax) Note: To contact a physician responsible for this patients hospital care, please call [facility] [phone]. I certify this patient is confined to the home and needs intermittent long-term care, physical therapy and/or speech therapy, or [...] leave the home. The patient had a aapz-im-iomz encounter with an allowed provider type on 08/02/23 and the encounter was related to the [...] Bal PA-C I spent a total of 40 minutes coordinating, documenting, and providing care for this patient excluding time spent in the performance of separately billed services. Ghada Leon PA-C Associated attestation - Norberto Crenshaw MD - 08/02/2023 3:33 PM EST I have reviewed the advanced practitioner's documentation and agree with the plan of care. I acceptthe responsibility for the associated risk. Patient seen and evaluated patient is clinically better has no complaints hemodynamically stable currently on room air with oxygen saturation 98% Patient treated for COVID with remdesivir and Decadron which has been discontinued as patient is saturating well on room air. Patient received IV diuretics now transitioned to oral torsemide due to concern for heart failure exacerbation, metoprolol has been held due to sinus bradycardia. Resume as a ppropriate during follow-up, patient is to follow up with PCP on discharge. documented in this encounter Discharge Instructions * Discharge Instr - AVS* Darrell Sarah DO - 08/01/2023 2:05 PM EST Discharge Date: 08/01/2023 The information below provides you with the [...] for any questions or test results: Call [phone]. For after-hours concerns: Call [phone] and have your provider paged or the provider consumer science teacher for the Department of Hospital Medicine paged. Please note, the discharging provider will not be able to provide you with any medications refills.Please discuss these with your primary care provider. Worsening Symptoms: If you have new symptoms, or your symptoms get worse, please contact your Discharge Provider or Primary Care Provider (PCP). If these providers are not available, you can go to your local [facility] during their business hours. In an EMERGENCY situation: Call [phone] or go to the nearest emergency room. A BRIEF SUMMARY OF YOUR HOSPITAL STAY: You came to the hospital with: complaint of shortness a breath Your main diagnosis at discharge was: You were diagnosed with COVID pneumonia as well as decompensation of your heart failure. He was treated with medications to treat the COVID pneumonia and given additional diuretics. Your breathing improved and you are now back on room air Operations & Procedures performed: none Complications: none significant Inpatient test results that are pending at discharge: none Advance Directive Documented: Advance Directive Does the Patient have an Advance Directive? Yes YOUR FOLLOW UP APPOINTMENTS: Primary Care Provider Information: PCP: Jeanna Bal PA-C [address] [place] [address] / [place] [address] (office) [phone] (fax) An appointment was requested with your PCP (Jeanna Bal PA-C) within 7 days. (Please take this form to this visit with your primary care physician.) You need the following studies in the future: none INSTRUCTIONS: Diet: Previous diet Activity: No restrictions and As tolerated Additional Instructions: - Call your primary care physician or seek medical attention if fever, increasing shortness of breath, increasing swelling. * Care Mgmt Instr - AVS* Dayna Kim RN - 08/02/2023 10:17 AM EST No care call or contact centre team leader to display CARE MANAGEMENT TRANSITION OF CARE Name: Maria Luisa Recinos Date: 08/02/2023 Dear Mrs. Recinos, [facility] Care Management is here to assist in your transition from hospital to home. It was very nice to meet and talk with you during your stay. The following items have been identified and set up for your discharge. You have been referred for home health long-term. The first date of service will be, MondayAugust 04 with [facility]. [facility] will reach out to you directly to schedule a time. If you do not hear from them within the next48 hours please call them directly at [phone]. Thank you for allowing us to participate in your care. If you have any questions or concerns, please contact me directly at [phone]. Wishing you good health in the future. Best Regards, SAGAR Humphreys RN Care Management, Registered Nurse, [facility] F: [phone] documented in this encounter Progress Notes * Darrell Sarah DO - 08/01/2023 1:57 PM EST Images from the original note were not included. [facility] MH2 ACU-236/02 INTERVAL HISTORY: Patient was significantly improved. Off oxygen. Still little short of breath with activity Objective Physical Exam Most Recent Vital Signs: BP: 110 mmHg/71 mmHg (08/01/23 1200) Pulse: 53 (08/01/23 1200) Temp: 36.61 C (08/01/23 1200) Resp: 20 (08/01/23 1200) SpO2: 97 % (08/01/23 0400) Constitutional: no acute distress CV: normal rate, normal rhythm Chest: normal respiratory effort, decreased breath sounds Extremities: no edema Neuro: alert, oriented to person, place, and time Peripheral Line Left Antecubital 20 Gauge (Active) Number of days: 2 STUDIES: Encounter Orders Labs and other studies reviewed with pertinent findings noted below: Sodium 131, potassium 3.7 Creatinine 1.0 LFTs stable Assessment and Plan IMPRESSION : Principal Problem (Resolved): Acute respiratory failure due to COVID-19 (HCC) Active Problems: Essential hypertension with goal blood pressure less than 140/90 Hypertrophic cardiomyopathy (HCC) Nonrheumatic mitral valve stenosis 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 Now titrated off oxygen Complete a 3 day course of remdesivir Discontinue Decadron, patient no longer requiring oxygen Transitioned to oral diuretics today Increase activity ensure patient continues to improve Anticipate discharge tomorrow on with a higher dose of torsemide PHARMACOLOGIC VTE PROPHYLAXIS: Enoxaparin CODE STATUS: Full Code EXPECTED DISCHARGE DATE: 08/02/2023 * Darrell Sarah DO - 07/31/2023 1:01 PM EST Images from the original note were not included. [facility] MH2 ACU-236/02 INTERVAL HISTORY: Patient was feeling significantly improved has noticed that she was urinating a lot. Cough is improved and orthopnea improved Objective Physical Exam Most Recent Vital Signs: BP: 102 mmHg/61 mmHg (07/31/23 1200) Pulse: 57 (07/31/23 1100) Temp: 36.61 C (07/31/23 1200) Resp: 18 (07/31/23 1200) SpO2: 95 % (07/31/23 1200) Constitutional: no acute distress CV: normal rate, normal rhythm Chest: normal respiratory effort, decreased breath sounds, few crackles throughout and rales Extremities: no edema Neuro: alert, oriented to person, place, and time Peripheral Line Left Antecubital 20 Gauge (Active) Number of days: 1 STUDIES: Encounter Orders Labs and other studies reviewed with pertinent findings noted below: Sodium improved to 133 Creatinine 1.0 INR 1.5 LFTs stable Assessment and Plan IMPRESSION : Principal Problem: Acute respiratory failure due to COVID-19 (HCC) Active Problems: Essential hypertension with goal blood pressure less than 140/90 Hypertrophic cardiomyopathy (HCC) Nonrheumatic mitral valve stenosis Pneumonia due to COVID-19 virus 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 * DIFFERENTIAL AND PLAN: Continue remdesivir and Decadron Transitioned to oral Lasix in a.m. Continue to titrate oxygen to off as able Daughter updated via phone while at bedside with the patient PHARMACOLOGIC VTE PROPHYLAXIS: Enoxaparin CODE STATUS: Full Code EXPECTED DISCHARGE DATE: 08/01/2023 documented in this encounter H&P Notes * Darrell Sarah DO - 07/30/2023 12:19 PM EST Images from the original note were not included. [facility] MH2 ACU-236/02 PRESENTING PROBLEM: Shortness of breath, cough, weakness and dyspnea on exertion HPI: Patient 87-year-old female he was started with the above symptoms over the last week or so. Inthe emergency room was noted to be hypoxic with O2 sat of 87% on room air. In the emergency room tested positive for COVID and was referred for further evaluation. Time of my evaluation the patient was on 2 L nasal cannula. She admits to some significant orthopnea over the past week as well. She states that she ran out of her furosemide last week. She has not noticed any significant swelling in her legs however. She also states that over the holiday all of her son's family had a cold when they got together for the holiday. She denies any fevers. She does have significant cough. No new problems with the bowels or bladder Subjective Patient's past history, medications, and allergies were reviewed. Objective Physical Exam Most Recent Vital Signs: BP: 130 mmHg/78 mmHg (07/30/23 1200) Pulse: 52 (07/30/23 1200) Temp: 37.06 C (07/30/23 1200) Resp: 18 (07/30/23 1200) SpO2: 95 % (07/30/23 1200) Constitutional: (+) ill appearing CV: normal rate, normal rhythm, systolic murmur Chest: normal respiratory effort, decreased breath sounds, few fine crackles at bases Abdomen: soft, no tenderness Extremities: no edema Neuro: alert, oriented to person, place, and time Peripheral Line Left Antecubital 20 Gauge (Active) Number of days: 0 STUDIES: Encounter Orders Labs and other studies reviewed with pertinent findings noted below: Personally reviewed chest x-ray, bilateral fluffy, ground-glass opacities, consistent with COVID pneumonia versus volume overload Personally reviewed EKG, sinus bradycardia, no acute STT wave changes Sodium 128 Renal function normal Glucose 166 WBCs normal 10.4 Hemoglobin 13.2 LFTs unremarkable BNP 8467. 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 * DIFFERENTIAL AND PLAN: Patient is critically ill with acute hypoxic respiratory failure in the setting of COVID pneumonia and exacerbation of her heart failure due to her valvular disease Support in the hospital Titrate oxygen to maintain adequate O2 sat Diurese with IV Lasix Start remdesivir Start Decadron Closely monitor electrolytes renal function and liver studies Reviewed home medications, continue as ordered PHARMACOLOGIC VTE PROPHYLAXIS:Enoxaparin CODE STATUS: Full Code EXPECTED DISCHARGE DATE: 08/01/2023 documented in this encounter Procedure Notes * Jamar Small MD - 07/30/2023 8:07 AM ESTAssociated Order(s): EKG REASON FOR STUDY: SOB CONCLUSIONS: Sinus bradycardia Left axis deviation Lateral infarct (cited on or before 14-DEC-2022) Abnormal ECG When compared with ECG of 14-DEC-2022 10:08, No significant change was found Ventricular Rate: 55 Atrial Rate: 55 MA Interval: 160 QRS Duration: 96 QT/QTc: 468/447 ms P-R-T Aptos: 50 : -33 : 10 degrees documented in this encounter Consult Notes * Arielle Espana, [facility] - 07/31/2023 10:43 AM ESTAssociated Order(s): PHARMACY CONSULT IP Images from the original note were not included. PHARMACY HEART FAILURE PROGRAM [address] [address] Name: Maria Luisa Recinos Location: [facility] ACU-236/02 Date: 07/31/2023 Time: 10:43 AM Most recent evaluation of ejection fraction: Lab Results Component Value Date/Time LEFT VENTRICULAR EJECTION FRACTION 69 06/01/2021 01:18 PM Is the most recent ejection fraction ? 40%? heart failure with preserved ejection fraction (HFpEF) with an ejection fraction greater than or equal to 50% Information on patient's heart failure medications is listed below. Included on this list are HeartFailure Guideline Directed Therapy Management (GDMT) medication titration recommendations. This information is to be shared with their healthcare provider. Loop diuretic: Please continue torsemide. Titrate to minimal symptoms. Medication Monitoring: Patients should weigh themselves daily and maintain a log of weights Patients should also include diary of their symptoms (edema, abdominal fullness, shortness of breath at rest or with exertion and sleep) Dizziness & pre-syncope - evaluate for dehydration Renal function and potassium within 1-2 weeks of any dose changes or change in renal function SGLT2 inhibitors: Consider starting empagliflozin. Target dose is 10mg daily. Medication Monitoring: Drug interaction with diuretics- diuretic dose may need to be decrease if SGLT2 inhibitors and diuretics are take together Serum creatinine- evaluate for significant increase after initiation Blood glucose- evaluate for hypoglycemia Nausea, vomiting, malaise- evaluate for diabetic ketoacidosis UTI- evaluate for potential development of a urinary tract infection Dizziness or syncope- evaluate for dehydration FRANTZ/ARB/ARNI: Please continue valsartan. . Titrate valsartan every 2-4 weeks to maximum tolerated dose. Recommended goal dose is 160 mg twice daily. Medication Monitoring: Dizziness & pre-syncope - Decrease dose or slow titration if dizziness occurs Blood pressure - Decrease dose or slow titration if hypotension occurs Dry cough - consider changing to an ARB if cough occurs Angioedema - avoid FRANTZ/ARB/ARNI therapy if angioedema occurs Laboratory monitoring - Renal function and potassium within 1-2 weeks of dose changes or change in renal function Aldosterone antagonist: Consider starting spironolactone. Titrate spironolactone slowly to goal dose of 25 mg - 50 mg once daily (eGFR> 50mL/min/1.73m2). Medication Monitoring: Gynecomastia Blood pressure- decrease dose or slow titration if hypotension occurs Electrolytes (especially potassium) and renal function- check 1 week, then 4 weeks, then every 6 months after initiating or intensifying dose. Current medications recommended to avoid or discontinue: None documented in this encounter Nursing Notes * Luisito Cameron RN - 08/02/2023 1:27 PM EST Patient/family completed discharge instructions with this RN. Patient/family asked all questions and did not have any concerns at this time. * Jaimee Mcarthur RN - 08/01/2023 5:32 PM EST Patient signed alarm refusal paper. Continues with this status. * Jaimee Mcarthur RN - 07/31/2023 2:17 PM EST Request to MD to d/c SCDs as patient is ordered lovenox SQ. * Antonio Pete RN - 07/30/2023 7:43 PM EST Dual Licensed Skin Assessment completed by Mae Pete RN and Giovani Mauro RN. The patient is/has a N/A Skin Breakdown (includes non blanchable erythema): No * Antonio Pete RN - 07/30/2023 7:42 PM EST .dual * Kristen Harp RN - 07/30/2023 4:21 PM EST VIRTUAL RN [facility] [id number] [facility] [address] Name: Maria Luisa Recinos Location: [place] [address] ACU- Date: 07/30/2023 Time: 4:22 PM I completed the Admission Navigator and Education. The patient was in the hospital. I was in a private office space at a [facility] location. After connecting through [email or web address], the patient was identified by name and date of and / or wristband checked. Patient (or authorized legal bank representative) was then informed that this was a Virtual Nurse visit and was being conducted confidentially over secure lines. My office door was closed. No one else was in the room with me. Patient acknowledgedconsent and understanding of privacy and security of the Virtual Nurse visit. I presented the opportunity for the patient or authorized legal bank representative to ask any questions regarding the visit to day. The patient or authorized legal bank representative agreed to participate. documented in this encounter ED Notes * De Faith DO - 07/30/2023 7:56 AM EST HISTORY OF PRESENT ILLNESS Maria Luisa Recinos is a 87 year old female who presents to the ED for evaluation of Short of Breath. The patient was seen at 07/30/23 0740. According to the patient and her son for approximately the last2-3 weeks the patient has been having a worsening shortness of breath and mild cough and congestion. Especially over the last 3-4 days she has had significant worsening of her cough and shortness of b reath. She is unable to ambulate without becoming significantly short of breath and lightheaded. The patient was seen by her primary care physician on who did a chest x-ray and she was givena referral to pulmonology but was not given any medications for help in the meantime. She states this continued shortness breath and worsening cough with congestion in the center of her chest prompted her to be brought to the ER for further evaluation. The patient's allergies, past history, and medications were reviewed. PHYSICAL EXAM Initial Vitals (see all): BP 140/96 | Pulse 62 | Resp 18 | Temp 99.1 | O2 93 %, Room Air, None | Weight 90.27 kg | Height 149.9 cm | BMI 40.19 kg/m2 Initial Pain Assessment (see all): 0 (no pain)/10 ([facility] Adult Scale 0-10) Physical Exam Vitals and nursing note reviewed. Constitutional: General: She is not in acute distress. Appearance: She is well-developed. HENT: Head: Normocephalic and atraumatic. Eyes: Conjunctiva/sclera: Conjunctivae normal. Cardiovascular: Rate and Rhythm: Normal rate and regular rhythm. Heart sounds: No murmur heard. Pulmonary: Effort: Pulmonary effort is normal. No respiratory distress. Breath sounds: Normal breath sounds. Comments: Diffuse end-expiratory wheezes Abdominal: Palpations: Abdomen is soft. Tenderness: There is no abdominal tenderness. Musculoskeletal: General: No swelling. Cervical back: Neck supple. Skin: General: Skin is warm and dry. Capillary Refill: Capillary refill takes less than 2 seconds. Neurological: Mental Status: She is alert. Psychiatric: Mood and Affect: Mood normal. PROCEDURES AND TREATMENTS ED Orders | ED Results MEDICAL DECISION MAKING Nursing notes and vital signs were reviewed. ED consults were placed. ED Course as of 07/30/23 1236 Sun Jul 30, 2023 0804 EKG shows sinus bradycardia with otherwise normal intervals and left axis deviation. No acute signs of ischemia noted by my interpretation. Nonspecific T- wave change in aVL present. [DM] 0824 CBC unremarkable [DM] 0847 Troponin T, High Sensitivity(!): 25 [DM] 0931 BNP, NT-Pro(!): 8,467 [DM] 0931 Coronavirus SARS-CoV-2 by PCR(!): Positive [DM] 0931 BMP unremarkable [DM] ED Course User Index [DM] De Faith DO Differential Diagnoses Based on my history, physical exam, and evaluation, the differential includes, but is not limited, to the following diagnoses: Interstitial lung disease, pneumonia, viral URI, CHF. Upon initial evaluation the patient was found to be hypoxic in the mid 80s on room air with no significant exertion. Given the patient's reported history and otherwise benign exam with mild wheezing the patient was given DuoNebs with some improvement of her shortness of breath was started on oxygenand she reported significant improvement. Oxygen saturations improved into the mid 90s.. Subsequentlabs were performed that were found to be generally unremarkable with moderate elevation in brain natriuretic peptide. Patient had no significant peripheral edema otherwise. Chest x-ray showed possible edema versus interstitial lung disease which appears to be similar to prior chest x-ray reads that the patient had as an outpatient. Labs otherwise generally unremarkable but patient found be positive for coronavirus. Given her significant weakness and hypoxia internal Medicine was contacted whoagreed to admit the patient for further evaluation and treatment. Amount and/or Complexity of Data Reviewed Labs: ordered. Decision-making details documented in ED Course. Radiology: ordered. ECG/medicine tests: ordered. Risk Prescription drug management. Decision regarding hospitalization. Clinical Impressions SOB (shortness of breath) Acute respiratory failure with hypoxia (HCC) Disposition Admitted. I discussed the management of this patient with the admitting provider and I made a decision to admit the patient. Admission Order Ordered Status . 07/30/23 1113 Admit for Inpatient Services (incl ZPO) ONCE Completed De Faith * Viviane Marcus RN - 07/30/2023 7:42 AM EST Patient states that she has had shortness of breath over the last few weeks that has gotten worse over the past week. She has a productive cough. Oxygen saturation 87 percent after moving around the room. documented in this encounter Miscellaneous Notes * Ancillary Progress Note - Dayna Kim RN - 08/02/2023 10:12 AM EST CARE MANAGEMENT - ADULT DISCHARGE NOTE [facility] [address] [facility] [address] Name: Maria Luisa Recinos Location: [address] Date: 08/02/2023 Time: 10:12 AM The following coordination of care and discharge plan has been coordinated with the care team, patient, family and/or caregiver according to the patients needs and preferences. Discharge Discharge Second Notice Important Message from Medicare delivered: Yes (08/02/23 1007) Date Delivered: 07/31/23 (08/02/23 1007) Retain copy in EHR: No - Comment (Provided to patient) (08/02/23 1007) Was Caregiver/Family/Facility contacted regarding discharge: Yes (08/02/23 1007) Discharge Transportation: Family/Friends drive (08/02/23 1007) Date of scheduled discharge transportation: 08/02/23 (08/02/23 1007) Time of scheduled discharge transportation: 1300 (08/02/23 1007) Patient declined post-hospital transition of care recommendation: N/A (08/02/23 1007) Final Discharge Plan (Complete only at time of Discharge): Home with Services (Home with Usp provided by [facility] first date of service 08/04/23.) (08/02/23 1010) Per discussion with Hospitalist, pt was medically cleared for DC to home this date with home healthskilled nursing provided by [facility]. The first date of service is to be Friday August 04, 2023. If you do not hear from them within the next 48 hours please contact them directly at [phone]. Upon discharge it is anticipated Pt will resume use of her durable medical equipment of which includes a rolling walker, cane and shower chair. Per discussion with the Tx Team, there are no additional needs for Care Management to arrange at time of DC. Pt is aware of the DC plans and in agreement with same. Equipment Cleaner And Tester will continue to follow for any additional DC needs not yet identified. * Respiratory Progress Note - Jennifer Nixon RRT-NPS - 08/02/2023 10:06 AM EST Patient sitting at rest 96 % on room air Patient ambulated 50 feet SpO2 94 % No complaints of SOB * Ancillary Progress Note - Dayna Kim RN - 08/02/2023 10:02 AM EST Care Management Discharge Planning Note: Equipment Cleaner And Tester called [facility] and they are not servicing [facility] at this time. Equipment Cleaner And Tester called [phone] [facility] and spoke with rep who advised they can accept for SN and first date of service will be Friday August 04, 2023. * Respiratory Progress Note - Jennifer Nixon RRT-NPS - 08/02/2023 9:57 AM EST PDP RE-EVALUATION NOTE - Res[facility] Services [address] [address] Name: Maria Luisa Recinos Location: [facility] ACU-236/02 Date: 08/02/2023 Time: 9:57 AM Patient Driven Protocol Summary: Re-evaluation . This Treatment Plan and medications will be reviewed by the Primary Care Team for any contraindications. Respiratory Care Treatment Plan Secretion Management Treatment: Flutter TherapyPRN to enhance mobilization of secretions. .. The patient will be re-evaluated: No [...] - Chronic Changes or CHF Assessment Score: 1 Patient Assessment Clinical Findings Respiratory Pattern: 0 - RR 12 - 20; Patient only gets breathless with strenuous exercise. Breath Sounds: 0 - Clear to auscultation Cough Effectiveness: 0 - Strong non-productive Sputum Production 0 - No sputum production Level of Activity: 0 - Ambulatory O2 needed to keep SpO2 greater than or equal to 92%: 0 - Room Air Assessment Score: 0 Total Assessment Score: 1 Breath Sounds: Inspiratory and expiratory clear bilaterally.. Cough and Sputum: An effective cough produced no sputum... Vital Signs: Resp: 17 (08/02/23741) Pulse: 48 (08/02/23741) Temp: 36.3 C (97.4 F) (08/02/23741) BP: 164/82 (08/02/23741) SpO2: 98 % (08/02/23741) Primary Service: Hospitalists. Admitting Diagnosis: Acute respiratory failure with hypoxia (HCC) [J96.01] Pulmonary Diagnosis: covid+ . * Pt Handout (on AVS) - Zulma Springer [facility] - 08/02/2023 9:41 AM EST Images from the original note were not included. [id number] Torsemide Oral Tablet Brands: John, Carline Uses This medicine is used for the [...] your risk of a serious side effect. It is important that you keep taking [...] about all medicines taken. Include prescription and ofyp-tyd-vltvqyj medicines, vitamins, and herbal medicines. Speak with your doctor or pharmacist before starting or stopping any medicine. Tell your doctor if symptoms do not get better or if they get worse. Talk to your doctor before taking other medicines, including aspirins and ibuprofen containing products. Speak to your doctor about which medicines are safe to use while you are on this medicine. This medicine may affect your blood sugar levels. If you have diabetes, talk to your doctor before changing the dose of your diabetes medicine. Keep all appointments for medical exams [...] before drinking alcohol while on this medicine. Contact your doctor if you notice a change in the amount or darkening of your urine. Tell the doctor or pharmacist if you are , planning to be , or . Do not share this medicine with anyone who has not been prescribed this medicine. Side Effects The following is a list of some common side effects from this medicine. Please speak with your doctor about what you should do if you experience these or other side effects. constipation dizziness headaches low blood pressure increased urinary frequency Call your doctor or get medical help right away if you notice any of these more serious side effects: confusion drowsiness or sedation ear problems (ringing in the ears, hearing loss) fainting numbness or tingling in hands and feet fast or irregular heart beats muscle cramps nausea and vomiting unusual or unexplained tiredness or weakness urinating less often difficulty or discomfort urinating A few people may have an allergic reaction to this medicine. Symptoms can include difficulty breathing, skin rash, itching, swelling, or severe dizziness. If you notice any of these symptoms, seek medical help quickly. Extra Please speak with your doctor, nurse, or pharmacist if you have any questions about this medicine. [email or web address] IMPORTANT NOTE: This document tells you briefly how to take your medicine, but it does not tell youall there is to know about it. Your doctor or pharmacist may give you other documents about your medicine. Please talk to them if you have any questions. Always follow their advice. There is a more complete description of this medicine available in [place]. Scan this code on your smartphone or tablet or use the web address below. You can also ask your pharmacist for a printout. If you have any questions, please ask your pharmacist. The display and use of this drug information is subject to Terms of Use. Copyright(c) 2022 [employer]. 2672-8680 [employer]. All rights reserved. This information is not intended as a substitute for professional medical care. Always follow your healthcare professional's instructions. * Pt Handout (on AVS) - Zulma Springer RPh - 08/02/2023 9:41 AM EST Images from the original note were not included. Torsemide tablet - Video Let's take a minute to talk about your medication. This is torsemide. It works to remove extra water from your body. To view the video go to this web address: https://bit.ly/1w4KEeC Or, scan this QR code with your smart phone 2022 [employer] / [employer]. All Rights Reserved. * Pt Handout (on AVS) - Zulma Springer RP - 08/02/2023 9:41 AM EST Images from the original note were not included. Valsartan - Video To view the video go to this web address: [email or web address] Or, scan this QR code with your smart phone 2022 [employer]. All Rights Reserved. * Pt Handout (on AVS) - Zulma Springer RPh - 08/02/2023 9:41 AM EST Images from the original note were not included. [id number] Valsartan Oral Tablet Brands: Diovan Uses This medicine is used for the following purposes: diabetic complications heart failure high blood pressure kidney disease Instructions This medicine may be taken with or without food. This medicine will work best if you take it at about the same time every day. Store at room temperature away from heat, light, and moisture. Do not keep in the bathroom. Talk to your doctor before eating foods with large amounts of potassium. Potassium is often found in salt substitutes. Your doctor may want you to reduce the amount of these foods. Tell your doctor if you have severe or persistent sweating, diarrhea or vomiting. These can increase your risk of a serious side effect. It is important that you keep taking [...] about all medicines taken. Include prescription and myia-vyz-oyovlpi medicines, vitamins, and herbal medicines. Speak with your doctor or pharmacist before starting or stopping any medicine. Tell your doctor if symptoms do not get better or if they get worse. Keep all appointments for medical exams and [...] before drinking alcohol while on this medicine. Contact your doctor if you notice a change in the amount or darkening of your urine. It is unknown if this medicine passes [...] you experience these or other side effects. dizziness lightheadedness Call your doctor or get medical help right away if you notice any of these more serious side effects: swelling of the face, mouth, tongue or throat fainting fast, irregular, or slow heartbeat muscle weakness urinating less often A few people may have an allergic reaction to this medicine. Symptoms can include difficulty breathing, skin rash, itching, swelling, or severe dizziness. If you notice any of these symptoms, seek medical help quickly. Extra Please speak with your doctor, nurse, or pharmacist if you have any questions about this medicine. [email or web address] IMPORTANT NOTE: This document tells you briefly how to take your medicine, but it does not tell youall there is to know about it. Your doctor or pharmacist may give you other documents about your medicine. Please talk to them if you have any questions. Always follow their advice. There is a more complete description of this medicine available in Czech. Scan this code on your smartphone or tablet or use the web address below. You can also ask your pharmacist for a printout. If you have any questions, please ask your pharmacist. The display and use of this drug information is subject to Terms of Use. Copyright(c) 2022 [employer] 2549-0049 [employer]. All rights reserved. This information is not intended as a substitute for professional medical care. Always follow your healthcare professional's instructions. * [facility] - Lily Hooper LPN - 08/02/2023 6:28 AM EST Clinical Goal(s): pt will maintain Sp02 greater than 90% throughout shift (08/02/23 0100) Possible barriers to meeting goal(s)/advancing plan of care: Covid+ infection Stability of the patient: Moderately unstable - medium risk of patient condition declining or worsening Summary regarding today's goal(s): Met: Recommendations: Continue to follow POC and monitor Sp02 levels * Ancillary Progress Note - Alejandra Linn RRT - 08/01/2023 10:14 PM EST PATIENT DRIVEN PROTOCOL - Respiratory Care Services [address] [address] Name: Maria Luisa Recinos Location: [place] [address] ACU-236/02 Date: 08/01/2023 Time: 10:14 PM Patient Driven Protocol Summary: Re-evaluation . This Treatment Plan and medications will be reviewed by the Primary Care Team for any contraindications. Respiratory Care Treatment Plan Pulmonary Volume Expansion Therapy: Flutter Therapy: Total Performed: 10 with Device Settin QID to enhance mobilization of secretions. . Secretion Management Treatment: Flutter TherapyQID to [...] 92%: 0 - Room Air Assessment Score: 2 Total Assessment Score: 4 Breath Sounds: Inspiratory and expiratory diminished bilaterally.. Cough and Sputum: No cough was present.. CXR: .IMPRESSION: Diffuse interstitial opacities favored to reflect a combination of pulmonary edema and chronic interstitial lung changes. Atypical pneumonia is not excluded. . Vital Signs: Resp: 16 (08/01/232010) Pulse: 57 (08/01/232010) Temp: 36.4 C (97.5 F) (08/01/232010) BP: 137/87 (08/01/232010) SpO2: 94 % (08/01/232010) Primary Service: Hospitalists. Admitting Diagnosis: Acute respiratory failure with hypoxia (HCC) [J96.01] Pulmonary Diagnosis: Covid 19 . Prescriptions/Home Medications/Durable Medical Equipment: none. Recommended New home medications/durable medical equipment/outpatient pulmonary/sleep referral none. * Care Plan - Jaimee Mcarthur RN - 08/01/2023 3:33 PM EST Clinical Goal(s): Patient will continue to maintain SpO2 greater than 90% on RA. (08/01/23 1432) Possible barriers to meeting goal(s)/advancing plan of care: covid Stability of the patient: Moderately stable - low risk of patient condition declining or worsening Summary regarding today's goal(s): Met: patient remained on RA today Recommendations: d/c tomorrow, * Diagnostic Clarification - Darrell Sarah DO - 08/01/2023 1:48 PM EST This patient has mild hyponatremia. * Care Plan - Lukasz Salinas LPN - 08/01/2023 4:33 AM EST Clinical Goal(s): pt wqill remain O2 sat above 91 on RA during my shift (07/31/23 2300) Possible barriers to meeting goal(s)/advancing plan of care: No known barriers noted at this time. Stability of the patient: Moderately stable - low risk of patient condition declining or worsening Summary regarding today's goal(s): Met: Recommendations: Pt continue to follow current stated care plan/goals. * Care Plan - Jaimee Mcarthur RN - 07/31/2023 12:32 PM EST Clinical Goal(s): Patient will maintain SpO2 greater than or equal to 90% while titrating oxygen from 2L down to RA. (07/31/23 0700) Possible barriers to meeting goal(s)/advancing plan of care: COVID Stability of the patient: Moderately stable - low risk of patient condition declining or worsening Summary regarding today's goal(s): Met: Patient was titrated to 1LPM, maintained sat greater than 90% the entirety of the shift. Recommendations: continue steroids and remdesivir * Ancillary Progress Note - Imani Harris BSW - 07/31/2023 10:18 AM EST CARE MANAGEMENT - ADULT INITIAL SCREENING [place] [id number] [facility] [address] Name: Maria Luisa Recinos Location: [place] [address] ACU-[id number] Date: 07/31/2023 Time: 10:18 AM Discussed patient with the interdisciplinary care team. This Safety And Skill Based Pay Manager performed a chart review and met with patient at bedside to complete admission screen and assessed needs for transition planning. The customer care team coach role and services were explained and emotional support was provided. Chief Complaint: Short of Breath Pts medical decision maker has been identified as being her children Betty Price and Juan Pablo Recinos whom pt would like notified of the DC. Per review of the medical record, pt has no admitting MH Dx. Pts primary pharmacy has been identified as being [facility]. Pt describes having an intact family support system. Pt denies any prior Hx of Substance abuse. Pt denies difficulty completing her ADLs prior to admission. Pt reports to being able to read/write. Pt denies difficulty managing her own medications prior to admission. Prior Living Arrangements What was your living situation prior to admission/observation?: Independently (07/30/23 1200) Living Quarters: House (07/31/23 1016) Number of steps to enter living quarters:: 2 steps (07/31/23 1016) Do you have serious difficulty walking or climbing stairs? (5 years old or older): No (07/30/23 1200) History of falling: No (07/31/23 0800) Prior Level of Functioning Describe the patient's ability prior to admission/observation to perform ADLs: Performs independently (07/30/23 1200) Describe the patient's mobility status prior to admission: Patient ambulates independently (07/30/23 1200) Patient uses assistive device: No (07/30/23 1200) Caregiver Information Patient Contacts Name Relation Home Work Mobile DeeBetty Adult Child [phone] Juan Pablo Recinos Adult Child [phone] Risk Stratification/Psychosocial/Care Gaps Risk Stratification Psycho Social / Medical Concerns Identified: Adjustment to illness/injury (07/31/23 1016) Accessed Neighborly to connect patients to social care resources: No (07/31/23 1016) OBRA or OPTIONS needed for placement: No (07/31/23 1016) Readmission Risk Score: 11.27 (07/31/23 0800) AM-PAC Score With Stairs : 21 (07/31/23 0800) Prior to Admission Services Services Prior to Admission BUILDING PRINCIPAL Services (Services received within the last 30 days with exception, Psych within last two years): Durable Medical Equipment (07/31/23 1016) BUILDING PRINCIPAL Durable Medical Equipment (DME) in home: Cane;Walker Rolling;Shower chair/bench (07/31/23 1016) DME Name: N/A (07/31/23 1016) [place] Dept. of Aging (PDA) Waiver Program: N/A (07/31/23 1016) BUILDING PRINCIPAL Transportation (Services received within the last 30 days): Patient drives self;Family/Friends Personal Vehicle (07/31/23 1016) Outpatient Safety And Skill Based Pay Manager: No care call or contact centre team leader to display Patient/Family Expectations: Return home. Tentative [...] daily in order to discuss DC planning/needs. Equipment Cleaner And Tester will continue to follow for any identified needs and/or concerns which may arise. For further screening information, please refer to the Care Management flow document. * Care Plan - Giovani Mauro RN - 07/31/2023 4:35 AM EST Clinical Goal(s): Patient will have a manageable oxygenation level (07/31/23 0000) Possible barriers to meeting goal(s)/advancing plan of care: weakness Stability of the patient: Moderately stable - low risk of patient condition declining or worsening Summary regarding today's goal(s): Met: Recommendations: Continue POCV * Care Plan - Antonio Pete RN - 07/30/2023 8:13 PM EST Clinical Goal(s): Pt will maintain O2 SAT > or= 90% thoughout shift (07/30/23 1200) Possible barriers to meeting goal(s)/advancing plan of care: Pt has COVID Stability of the patient: Moderately stable - low risk of patient condition declining or worsening Summary regarding today's goal(s): Met: Recommendations: Continue current POC * Respiratory Progress Note - Krystle Cordova RRT - 07/30/2023 1:41 PM EST PATIENT DRIVEN PROTOCOL - Respiratory Care Services [address] [address] Name: Maria Luisa NEUMANNN: [id number] Location: [place] [address] [id number] Date: 07/30/2023 Time: 1:41 PM Patient Driven Protocol Summary: Initial evaluation performed. This Treatment Plan and medications will be reviewed by the Primary Care Team for any contraindications. Respiratory Care Treatment Plan Secretion Management Treatment: CPT PRN to enhance mobilization of secretions. Additional Secretion Management Protocols: Flutter TherapyQID to enhance mobilization of secretions. [...] 35% Assessment Score: 4 Total Assessment Score: 6 Breath Sounds: Inspiratory and expiratory diminished bilaterally.. Cough and Sputum: A harsh cough produced no sputum... CXR: .IMPRESSION: Diffuse interstitial opacities favored to reflect a combination of pulmonary edema and chronic interstitial lung changes. Atypical pneumonia is not excluded. Vital Signs: Resp: 18 (07/30/23 1200) Pulse: 52 (07/30/23 1200) Temp: 37.1 C (98.7 F) (07/30/23 1200) BP: 130/78 (07/30/23 1200) SpO2: 95 % (07/30/23 1200) Primary Service: Hospitalists. Admitting Diagnosis: Acute respiratory failure with hypoxia (HCC) [J96.01] Pulmonary Diagnosis: covid 19 . Prescriptions/Home Medications/Durable Medical Equipment: none. Recommended New home medications/durable medical equipment/outpatient pulmonary/sleep referral no. * Communication - Kanwal Bass RN - 07/30/2023 11:40 AM EST Hand-Off - Nurse Communication Note Name: Maria Luisa Recinos Location: Date: 07/30/2023 Time: 11:47 AM Nurse giving report: Kanwal Bass RN Nurse receiving report: inpatient RN Reason for SBAR handoff: Admission Immediate Concerns: COVID-19 positive SITUATION: Admission date: 07/30/2023 Chief Complaint: Short of Breath Admitting diagnosis: Acute respiratory failure with hypoxia (HCC) Patient Service: Hospitalists [[id number]] Level of Care: Med Surg [3] Attending Provider: Darrell Sarah DO Coming From:home BACKGROUND: Primary Care Physician: Jeanna Bal PA-C Past Medical History: Diagnosis Date AAA (abdominal aortic aneurysm) (HCC) Graves disease Hypertrophic cardiomyopathy (HCC) Mixed hyperlipidemia Nonrheumatic mitral valve stenosis Primary hypertension Patient Compliant: Yes Code Status: No code status on file Allergies: Amoxicillin, Gatifloxacin, and Latex Problem list: Principal Problem: Acute respiratory failure due to COVID-19 (HCC) Active Problems: Essential hypertension with goal blood pressure less than 140/90 Hypertrophic cardiomyopathy (HCC) Nonrheumatic mitral valve stenosis Pneumonia due to COVID-19 virus 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 * Activity: as tolerated Fall Risk or Safety Concerns: Fall Risk Isolation: None Isolation flowsheet: ASSESSMENT: Vital Signs: BP: 144/86 (07/30/23 1115) Temp: 37.3 C (99.1 F) (07/30/23740) Pulse: 52 (07/30/23 1115) Resp: 17 (07/30/23 1115) SpO2: 98 % (07/30/23 1115) Weight: 90.3 kg (199 lb) (07/30/23740) Height: 149.9 cm (4' 11") (07/30/23740) Pain Assessment Flowsheet Row Most Recent Value Pain Assessment Scale [facility] Adult Scale 0-10 Pain Score 0 (no pain) Fall Scale: Fall Score: 15 (07/30/23 07) Neurological: [place] Coma Scale Eyes Open: Spontaneous (07/30/23799) Best Verbal Response: Verbally appropriate for age (07/30/23799) Best Motor Response: Obeys commands appropriate for age (07/30/23799) Coma Score: 15 (07/30/23799) Respiratory: Respiratory WNL: X - Exceptions to WNL as documented below (Simultaneous filing. User may not have seen previous data.) (07/30/23799) Cough: Occasional;Productive (07/30/23799) Depth/Rhythm: Regular (Simultaneous filing. User may not have seen previous data.) (07/30/23799) Dyspnea Occurance: At Rest (Simultaneous filing. User may not have seen previous data.) (07/30/23799) Effort: Labored (Simultaneous filing. User may not have seen previous data.) (07/30/23799) O2 flow rate: 2 L/MIN (07/30/23 1115) Additional Respiratory Information: requires oxygen @ 2 LPM via NC currently Cardiac: GI/: Integumentary: Skin Description: Warm;Dry (07/30/23799) Skin Color: Flesh Tone (07/30/23799) Restraints: No orders of the defined types were placed in this encounter. Medications: see MAR Lines: Peripheral Line Left Antecubital 20 Gauge (Active) Status Flushes easily;Positive blood return 07/30/23809 Phlebitis Scale 0 07/30/23809 Infiltration Scale 0 07/30/23809 Site Description (Other) Without redness, swelling or drainage 07/30/23809 Site Intervention Flushed 07/30/23809 Dressing Assessment Dressing clean, dry, and intact 07/30/23809 Dressing Intervention Applied 07/30/23809 Number of days: 0 Treatment: As per hospitalist Labs: Labs This Encounter BASIC METABOLIC PANEL - Abnormal; Notable for the following components: Result Value Ref Range Sodium 128 135 - 146 mmol/L Chloride 97 98 - 107 mmol/L CO2 20 22 - 32 mmol/L Glucose 166 70 - 120 mg/dL All other components within normal limits TROPONIN T, HIGH SENSITIVITY - Abnormal; Notable for the following components: Troponin T, High Sensitivity 25 <=14 ng/L All other components within normal limits BNP, NT-PRO - Abnormal; Notable for the following components: BNP, NT-Pro 8,467 <300 pg/mL All other components within normal limits Narrative: Exclude Heart Failure: <300 pg/mL Diagnose Heart Failure: Age <50 yr: >450 pg/mL 50-75 yr: >900 pg/mL >75 yr: >1800 pg/mL GFR is 30-59 mL/min: >1200 pg/mL or Age-adjusted values GFR <30 mL/min: do not use, not reliable Prognostic threshold: 1000 pg/mL RESPIRATORY PATHOGEN PANEL, PCR - Abnormal; Notable for the following components: Coronavirus SARS-CoV-2 by PCR Positive Negative All other components within normal limits DIFFERENTIAL, AUTOMATED - Abnormal; Notable for the following components: Neutrophils % 79.9 40.0 - 75.0 % Lymphocytes % 7.2 18.0 - 42.0 % Absolute Neutrophils 8.38 1.80 - 7.70 K/uL Absolute Lymphocytes 0.75 1.00 - 4.80 K/ul All other components within normal limits PT INR - Abnormal; Notable for the following components: Prothrombin Time 16.5 11.6 - 15.2 seconds INR 1.3 0.8 - 1.2 All other components within normal limits Narrative: Warfarin Therapy INR: 2.0-3.0 conventional anticoagulation INR: 2.5-3.5 high intensity anticoagulation HEPATIC FUNCTION PANEL - Abnormal; Notable for the following components: Albumin 3.5 3.8 - 5.0 g/dL AST 39 10 - 35 U/L Alkaline Phosphatase 135 35 - 130 U/L Bilirubin, Direct 0.5 0.0 - 0.3 mg/dL All other components within normal limits CBC WITH WBC DIFFERENTIAL Narrative: The following orders were created for panel order CBC WITH WBC DIFFERENTIAL. Procedure Abnormality Status --------- ------ CBC[[id number]] Final result DIFFERENTIAL, AUTOMATED[[id number]] Abnormal Final result Please view results for these tests on the individual orders. CBC EXTRA TUBES Narrative: The following orders were created for panel order EXTRA TUBES. Procedure Abnormality Status --------- ------ EXTRA SYRINGE[[id number]] Final result Please view results for these tests on the individual orders. EXTRA SYRINGE Diet: No orders of the defined types were placed in this encounter. Intake and Output: No intake or output data in the 24 hours ending 07/30/23 1147 Patient Belongings and Home Medications Patient Belongings at Bedside Belongings at Bedside: None (07/30/23746) Patient Belongings Sent Home (Does not apply to Ambulatory areas) Belongings Sent Home: None (07/30/23746) Patient Belongings Sent to Safe/Locker Belongings Sent to Safe: None (07/30/23746) Patient Medications Medications Brought by Patient?: No (07/30/23746) RECOMMENDATIONS: Consults not completed: as per hospitalist Anticipated tests/studies/procedures: as per hospitalist Medication Reconcilliation completed for this Admission? Yes * ED Produce Field Merchandiser Note - Kanwal Bass RN - 07/30/2023 11:40 AM EST Pt transported to second floor for admission at this time by this nurse via litter with all belongings. Pt remains on sack sewer machine and oxygen on @ 2 LPM via NC during transport. Pt's son accompanied pt. Pt and pt's son wearing surgical mask. * ED Produce Field Merchandiser Note - Kanwal Bass RN - 07/30/2023 10:25 AM EST Pt given ice water at this time per pt's request, Dr. Faith approved. * ED Produce Field Merchandiser Note - Viviane Marcus RN - 07/30/2023 7:56 AM EST Patient placed on 2 liters of oxygen nasal cannula per provider order. Patient tolerating well. documented in this encounter Plan of Treatment Upcoming Encounters Date Type Department Care Team (Late st Contact Info) Description 08/08/2023 10:30 AM EST Office Visit Pulmonary Medicine, [place] [address] [place] [address] Yocasta Proctor CRNP [address] [place] [address] 09/06/2023 9:00 AM EST Office Visit Cardiology, [facility] [address] [place] [phone] Jennifer Queen PA-C [address] [place] [phone] Scheduled Orders Name Type Priority Associated Diagnoses Orde r Schedule PULMONARY STRESS TESTING Procedures Routine Once for 1 Occur rences starting 08/02/2023 until 08/02/2023 Scheduled Referrals Name Type Priority Associated Diagnoses Orde r Schedule HOME HEALTH REFERRAL OP Referral Within 10 days (routine) 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 Ordered: 08/02/2023 Health Maintenance Due Date Last Done Comments [...] Associated Diagnosis Comments BASIC METABOLIC PANEL Routine 08/02/2023 6:28 AM EST BASIC METABOLIC PANEL Routine 08/01/2023 6:22 AM EST PT INR Routine 08/01/2023 6:22 AM EST ALT Routine 08/01/2023 6:22 AM EST AST Routine 08/01/2023 6:22 AM EST BASIC METABOLIC PANEL Routine 07/31/2023 7:16 AM EST PT INR Routine 07/31/2023 7:16 AM EST ALT Routine 07/31/2023 7:16 AM EST AST Routine 07/31/2023 7:16 AM EST PT INR STAT 07/30/2023 11:26 AM EST XR CHEST 1 VIEW STAT 07/30/2023 8:22 AM EST DIFFERENTIAL, AUTOMATED STAT 07/30/2023 8:10 AM EST TROPONIN T, HIGH SENSITIVITY STAT 07/30/2023 8:10 AM EST BNP (NT-PROBNP) STAT 07/30/2023 8:10 AM EST HEPATIC FUNCTION PANEL Add-on 07/30/2023 8:10 AM EST BASIC METABOLIC PANEL STAT 07/30/2023 8:10 AM EST CBC STAT 07/30/2023 8:10 AM EST CBC STAT 07/30/2023 8:10 AM EST HC ECG TRACING ONLY STAT 07/30/2023 8 :07 AM EST SOB (shortness of breath) EXTRA SYRINGE Routine 07/30/2023 8:07 AM EST EXTRA TUBES Routine 07/30/2023 8:07 AM EST RESPIRATORY PATHOGEN PANEL, PCR STAT 07/30/2023 8:05 AM EST documented in this encounter Results * (ABNORMAL) BASIC METABOLIC PANEL (08/02/2023 6:28 AM EST) BUN 40(H) 6 - 20 mg/dL 08/02/2023 7:19 AM EST LABORATORY [facility] Creatinine 1.1(H) 0.5 - 1.0 mg/dL 08/02/2023 7:19 AM EST [facility] Estimated Glomerular Filtration Rate 50(L) >=60 mL/min 08/02/2023 7:19 AM EST [facility] Comment:eGFR is calculated b ased on the CKD-EPI 2020 equation Sodium 129(L) 135 - 146 mmol/L 08/02/2023 7:19 AM EST [facility] Potassium 4.7 3.5 - 5.1 mmol/L 08/02/2023 7:19 AM EST [facility] Chloride 95(L) 98 - 107 mmol/L 08/02/2023 7:19 AM EST [facility] CO2 23 22 - 32 mmol/L 08/02/2023 7:19 AM EST [facility] Anion Gap 11 7 - 15 mmol/L 08/02/2023 7:19 AM EST [facility] Glucose 112 70 - 120 mg/dL 08/02/2023 7:19 AM EST [facility] Calcium 8.8 8.4 - 10.2 mg/dL 08/02/2023 7:19 AM EST [facility] Blood Venous blood specimen / Unknown Venipuncture / Unknown 08/02/2023 6:28 AM EST 08/02/2023 6:49 AM EST Darrell Sarah DO LAB BLOOD ORDERAB LES [facility] [place] [address] * (ABNORMAL) PT INR (08/01/2023 6:22 AM EST) Prothrombin Time 17.6(H) 11.6 - 15.2 seconds 08/01/2023 7:00 AM EST LABORATORY [facility] INR 1.4(H) 0.8 - 1.2 08/01/2023 7:00 AM EST LABORATORY [facility] Blood Venous blood specimen / Unknown Venipuncture / Unknown 08/01/2023 6:22 AM EST 08/01/2023 6:49 AM EST Narrative [facility] - 08/01/2023 7:00 AM EST Warfarin Therapy INR: 2.0-3.0 conventional anticoagulation INR: 2.5-3.5 high intensity anticoagulation Darrell HighRidango DO LAB BLOOD ORDERAB LES Performing Organization Address [facility] de Phone Number LABORATORY [address] [address] * ALT (08/01/2023 6:22 AM EST) ALT 22 10 - 35 U/L 08/01/2023 7:15 AM EST LABORATORY [facility] Blood Venous blood specimen / Unknown Venipuncture / Unknown 08/01/2023 6:22 AM EST 08/01/2023 6:49 AM EST Darrell HighRidango DO LAB BLOOD ORDERAB LES Performing Organization Address [facility] de Phone Number LABORATORY [address] [address] * AST (08/01/2023 6:22 AM EST) AST 32 10 - 35 U/L 08/01/2023 7:15 AM EST LABORATORY [facility] Blood Venous blood specimen / Unknown Venipuncture / Unknown 08/01/2023 6:22 AM EST 08/01/2023 6:49 AM EST Darrell AlinRidango DO LAB BLOOD ORDERAB LES Performing Organization Address City/[facility]/ZIP Co de Phone Number LABORATORY [facility] [address] [place] [address] * (ABNORMAL) BASIC METABOLIC PANEL (08/01/2023 6:22 AM EST) BUN 34(H) 6 - 20 mg/dL 08/01/2023 7:15 AM EST LABORATORY [facility] Creatinine 1.0 0.5 - 1.0 mg/dL 08/01/2023 7:15 AM EST LAB[facility]ATORY [facility] Estimated Glomerular Filtration Rate 55(L) >=60 mL/min 08/01/2023 7:15 AM EST LABORATORY [facility] Comment:eGFR is calculated b ased on the CKD-EPI 2020 equation Sodium 131(L) 135 - 146 mmol/L 08/01/2023 7:15 AM EST LABORATORY [facility] Potassium 3.7 3.5 - 5.1 mmol/L 08/01/2023 7:15 AM EST LABORATORY [facility] Chloride 96(L) 98 - 107 mmol/L 08/01/2023 7:15 AM EST [facility] CO2 22 22 - 32 mmol/L 08/01/2023 7:15 AM EST LABORATORY [facility] Anion Gap 13 7 - 15 mmol/L 08/01/2023 7:15 AM EST LAB[facility]ATORY [facility] Glucose 115 70 - 120 mg/dL 08/01/2023 7:15 AM EST LAB[facility]ATORY [facility] Calcium 8.8 8.4 - 10.2 mg/dL 08/01/2023 7:15 AM EST LABORATORY [facility] Blood Venous blood specimen / Unknown Venipuncture / Unknown 08/01/2023 6:22 AM EST 08/01/2023 6:49 AM EST Darrell Sarah DO LAB BLOOD ORDERAB LES LABORATORY [facility] [address] [place] [address] * (ABNORMAL) PT INR (07/31/2023 7:16 AM EST) Prothrombin Time 18.4(H) 11.6 - 15.2 seconds 07/31/2023 8:26 AM EST LABORATORY [facility] INR 1.5(H) 0.8 - 1.2 07/31/2023 8:26 AM EST LABORATORY [facility] Blood Venous blood specimen / Unknown Venipuncture / Unknown 07/31/2023 7:16 AM EST 07/31/2023 8:14 AM EST Narrative LABORATORY [facility] - 07/31/2023 8:26 AM EST Warfarin Therapy INR: 2.0-3.0 conventional anticoagulation INR: 2.5-3.5 high intensity anticoagulation Darrell Alin Keara DO LAB BLOOD ORDERAB LES Performing Organization Address [facility]/ZIP Co de Phone Number LABORATORY [address] [address] * ALT (07/31/2023 7:16 AM EST) ALT 23 10 - 35 U/L 07/31/2023 8:44 AM EST LABORATORY [facility] Blood Venous blood specimen / Unknown Venipuncture / Unknown 07/31/2023 7:16 AM EST 07/31/2023 8:14 AM EST Darrell Alin Keara DO LAB BLOOD ORDERAB LES Performing Organization Address [facility] de Phone Number LABORATORY [address] [address] * AST (07/31/2023 7:16 AM EST) AST 30 10 - 35 U/L 07/31/2023 8:44 AM EST LABORATORY [facility] Blood Venous blood specimen / Unknown Venipuncture / Unknown 07/31/2023 7:16 AM EST 07/31/2023 8:14 AM EST Darrell Alin Kaera DO LAB BLOOD ORDERAB LES Performing Organization Address [facility] de Phone Number LABORATORY [address] [address] * (ABNORMAL) BASIC METABOLIC PANEL (07/31/2023 7:16 AM EST) BUN 22(H) 6 - 20 mg/dL 07/31/2023 8:44 AM EST LABORATORY [facility] Creatinine 1.0 0.5 - 1.0 mg/dL 07/31/2023 8:44 AM EST [facility] Estimated Glomerular Filtration Rate 59(L) >=60 mL/min 07/31/2023 8:44 AM EST LABORATORY [facility] Comment:eGFR is calculated b ased on the CKD-EPI 2020 equation Sodium 133(L) 135 - 146 mmol/L 07/31/2023 8:44 AM EST [facility] Potassium 3.9 3.5 - 5.1 mmol/L 07/31/2023 8:44 AM EST [facility] Chloride 98 98 - 107 mmol/L 07/31/2023 8:44 AM EST [facility] CO2 22 22 - 32 mmol/L 07/31/2023 8:44 AM EST [facility] Anion Gap 13 7 - 15 mmol/L 07/31/2023 8:44 AM EST LABORATORY [facility] Glucose 125(H) 70 - 120 mg/dL 07/31/2023 8:44 AM EST [facility] Calcium 8.6 8.4 - 10.2 mg/dL 07/31/2023 8:44 AM EST LABORATORY [facility] Blood Venous blood specimen / Unknown Venipuncture / Unknown 07/31/2023 7:16 AM EST 07/31/2023 8:14 AM EST Darrell Ogden Keara DO LAB BLOOD ORDERAB LES Performing Organization Address City/State/[facility] Co de Phone Number LABORATORY [place] [id number] [place] [address] * (ABNORMAL) PT INR (07/30/2023 11:26 AM EST) Prothrombin Time 16.5(H) 11.6 - 15.2 seconds 07/30/2023 11:46 AM EST LABORATORY [facility] INR 1.3(H) 0.8 - 1.2 07/30/2023 11:46 AM EST LABORATORY [facility] Blood Venous blood specimen / Unknown Venipuncture / Unknown 07/30/2023 11:26 AM EST 07/30/2023 11:29 AM EST Narrative LABORATORY [facility] - 07/30/2023 11:46 AM EST Warfarin Therapy INR: 2.0-3.0 conventional anticoagulation INR: 2.5-3.5 high intensity anticoagulation De Faith DO LAB BLOOD ORDERABL ES LABORATORY [facility] [address] [place] [address] * XR CHEST 1 VIEW (07/30/2023 8:22 AM EST) Anatomical Region Laterality Modality Chest Computed Radiogr aphy 07/30/2023 8:22 AM EST Impressions 07/30/2023 10:23 AM EST IMPRESSION: Diffuse interstitial opacities favored to reflect a combination of pulmonary edema and chronic interstitial lung changes. Atypical pneumonia is not excluded. THIS DOCUMENT HAS BEEN ELECTRONICALLY SIGNED BY HERNANDEZ NARANJO MD Narrative 07/30/2023 10:23 AM EST PROCEDURE INFORMATION: Exam: XR Chest Exam date and time: 07/30/2023 8:22 AM Age: 87 years old Clinical indication: Shortness of breath; Additional info: SOB TECHNIQUE: Imaging protocol: Radiologic exam of the chest. Views: 1 view. COMPARISON: 1. CTA CHEST NON-CORONARY 09/30/2021 7:32 AM 2. DX XR CHEST 1 VIEW 09/30/2021 6:35 AM FINDINGS: Lungs: Diffuse bilateral interstitial opacities. Pleural spaces: No pleural effusion. No pneumothorax. Heart/Mediastinum: Cardiomediastinal silhouette within normal limits for technique. Bones/joints: Degenerative osseous changes. Procedure Note Hernandez Naranjo MD - 07/30/2023 PROCEDURE INFORMATION: Exam: XR Chest Exam date and time: 07/30/2023 8:22 AM Age: 87 years old Clinical indication: Shortness of breath; Additional info: SOB TECHNIQUE: Imaging protocol: Radiologic exam of the chest. Views: 1 view. COMPARISON: 1. CTA CHEST NON-CORONARY 09/30/2021 7:32 AM 2. DX XR CHEST 1 VIEW 09/30/2021 6:35 AM FINDINGS: Lungs: Diffuse bilateral interstitial opacities. Pleural spaces: No pleural effusion. No pneumothorax. Heart/Mediastinum: Cardiomediastinal silhouette within normal limits for technique. Bones/joints: Degenerative osseous changes. IMPRESSION IMPRESSION: Diffuse interstitial opacities favored to reflect a combination ofpulmonary edema and chronic interstitial lung changes. Atypical pneumonia is notexcluded. THIS DOCUMENT HAS BEEN ELECTRONICALLY SIGNED BY HERNANDEZ NARANJO MD [place] [facility] DO RADIOLOGY (RAD GEN ERAL) * (ABNORMAL) HEPATIC FUNCTION PANEL (07/30/2023 8:10 AM EST) Albumin 3.5(L) 3.8 - 5.0 g/dL 07/30/2023 11:37 AM EST LABORATORY [facility] AST 39(H) 10 - 35 U/L 07/30/2023 11:37 AM EST LABORATORY [facility] Alkaline Phosphatase 135(H) 35 - 130 U/L 07/30/2023 11:37 AM EST LABORATORY [facility] ALT 30 10 - 35 U/L 07/30/2023 11:37 AM EST LAB[facility]ATORY [facility] Bilirubin, Total 1.0 <=1.2 mg/dL 07/30/2023 11:37 AM EST LABORATORY [facility] Bilirubin, Direct 0.5(H) 0.0 - 0.3 mg/dL 07/30/2023 11:37 AM EST LABORATORY [facility] Protein 7.2 6.0 - 8.3 g/dL 07/30/2023 11:37 AM EST LABORATORY [facility] Blood Venous blood specimen / Unknown Venipuncture / Unknown 07/30/2023 8:10 AM EST 07/30/2023 8:14 AM EST [facility] LAB BLOOD ORDERABL ES LABORATORY [facility] [address] [place] [address] * (ABNORMAL) DIFFERENTIAL, AUTOMATED (07/30/2023 8:10 AM EST) WBC 10.48 4.00 - 10.80 K/uL 07/30/2023 8:22 AM EST LABORATORY [facility] Neutrophils % 79.9(H) 40.0 - 75.0 % 07/30/2023 8:22 AM EST LABORATORY [facility] Lymphocytes % 7.2(L) 18.0 - 42.0 % 07/30/2023 8:22 AM EST LABORATORY [facility] Monocytes % 9.4 1.0 - 11.0 % 07/30/2023 8:22 AM EST LABORATORY [facility] Eosinophils % 3.1 0.0 - 6.0 % 07/30/2023 8:22 AM EST LABORATORY [facility] Basophils % 0.4 0.0 - 2.0 % 07/30/2023 8:22 AM EST LABORATORY [facility] Absolute Neutrophils 8.38(H) 1.80 - 7.70 K/uL 07/30/2023 8:22 AM EST LABORATORY [facility] Absolute Lymphocytes 0.75(L) 1.00 - 4.80 K/ul 07/30/2023 8:22 AM EST LABORATORY [facility] Absolute Monocytes 0.99 0.00 - 1.10 K/uL 07/30/2023 8:22 AM EST LABORATORY [facility] Absolute Eosinophils 0.32 0.00 - 0.70 K/uL 07/30/2023 8:22 AM EST LABORATORY [facility] Absolute Basophils 0.04 0.00 - 0.20 K/uL 07/30/2023 8:22 AM EST LABORATORY [facility] Blood Venous blood specimen / Unknown Venipuncture / Unknown 07/30/2023 8:10 AM EST 07/30/2023 8:14 AM EST De Faith DO LAB BLOOD ORDERABL ES LABORATORY [id number] [place] [address] * CBC (07/30/2023 8:10 AM EST) WBC 10.48 4.00 - 10.80 K/uL 07/30/2023 8:22 AM EST LABORATORY [facility] RBC 4.48 3.85 - 5.15 M/uL 07/30/2023 8:22 AM EST LABORATORY [facility] HGB 13.2 12.0 - 15.3 g/dL 07/30/2023 8:22 AM EST LABORATORY [facility] HCT 38.6 36.0 - 45.2 % 07/30/2023 8:22 AM EST LABORATORY [facility] MCV 86.2 81.5 - 97.5 fL 07/30/2023 8:22 AM EST LABORATORY [facility] MCH 29.5 27.0 - 34.0 pg 07/30/2023 8:22 AM EST LABORATORY [facility] MCHC 34.2 32.0 - 36.0 g/dL 07/30/2023 8:22 AM EST LABORATORY [facility] RDW 14.4 11.5 - 15.5 % 07/30/2023 8:22 AM EST LABORATORY [facility] PLT 296 140 - 400 K/uL 07/30/2023 8:22 AM EST LABORATORY [facility] MPV 8.7 6.6 - 11.1 fL 07/30/2023 8:22 AM EST LABORATORY [facility] Blood Venous blood specimen / Unknown Venipuncture / Unknown 07/30/2023 8:10 AM EST 07/30/2023 8:14 AM EST De Faith DO LAB BLOOD ORDERABL ES Performing Organization Address City/[facility]/ZIP Co de Phone Number LABORATORY [address] [address] * (ABNORMAL) BNP, NT-PRO (07/30/2023 8:10 AM EST) BNP, NT-Pro 8,467(H) <300 pg/mL 07/30/2023 8:48 AM EST LABORATORY [facility] Blood Venous blood specimen / Unknown Venipuncture / Unknown 07/30/2023 8:10 AM EST 07/30/2023 8:14 AM EST Narrative LABORATORY [facility] - 07/30/2023 8:48 AM EST Exclude Heart Failure: <300 pg/mL Diagnose Heart Failure: Age <50 yr: >450 pg/mL 50-75 yr: >900 pg/mL >75 yr: >1800 pg/mL GFR is 30-59 mL/min: >1200 pg/mL or Age-adjusted values GFR <30 mL/min: do not use, not reliable Prognostic threshold: 1000 pg/mL De Faith DO LAB BLOOD ORDERABL ES LABORATORY [address] [address] * (ABNORMAL) TROPONIN T, HIGH SENSITIVITY (07/30/2023 8:10 AM EST) Troponin T, High Sensitivity 25(H) <=14 ng/L 07/30/2023 8:35 AM EST LABORATORY [facility] Blood Venous blood specimen / Unknown Venipuncture / Unknown 07/30/2023 8:10 AM EST 07/30/2023 8:14 AM EST De Faith DO LAB BLOOD ORDERABL ES [facility] [place] [address] * (ABNORMAL) BASIC METABOLIC PANEL (07/30/2023 8:10 AM EST) Pathologist [facility] BUN 17 6 - 20 mg/dL 07/30/2023 8:48 AM EST LABORATORY [facility] Creatinine 0.9 0.5 - 1.0 mg/dL 07/30/2023 8:48 AM EST LABORATORY [facility] Estimated Glomerular Filtration Rate 60 >=60 mL/min 07/30/2023 8:48 AM EST LABORATORY [facility] Comment:eGFR is calculated b ased on the CKD-EPI 2020 equation Sodium 128(L) 135 - 146 mmol/L 07/30/2023 8:48 AM EST LABORATORY [facility] Potassium 4.0 3.5 - 5.1 mmol/L 07/30/2023 8:48 AM EST LABORATORY [facility] Chloride 97(L) 98 - 107 mmol/L 07/30/2023 8:48 AM EST LABORATORY [facility] CO2 20(L) 22 - 32 mmol/L 07/30/2023 8:48 AM EST LABORATORY [facility] Anion Gap 11 7 - 15 mmol/L 07/30/2023 8:48 AM EST LABORATORY [facility] Glucose 166(H) 70 - 120 mg/dL 07/30/2023 8:48 AM EST LABORATORY [facility] Calcium 9.0 8.4 - 10.2 mg/dL 07/30/2023 8:48 AM EST LABORATORY [facility] Blood Venous blood specimen / Unknown Venipuncture / Unknown 07/30/2023 8:10 AM EST 07/30/2023 8:14 AM EST De Faith DO LAB BLOOD ORDERABL ES Performing Organization Address [facility] de Phone Number LABORATORY [address] [address] * EKG (07/30/2023 8:07 AM EST) 07/30/2023 8:07 AM EST Narrative Procedure Note Jamar Small MD - 07/30/2023 8:07 AM EST REASON FOR STUDY: SOB CONCLUSIONS: Sinus bradycardia Left axis deviation Lateral infarct (cited on or before 14-DEC-2022) Abnormal ECG When compared with ECG of 14-DEC-2022 10:08, No significant change was found Ventricular Rate: 55 Atrial Rate: 55 MA Interval: 160 QRS Duration: 96 QT/QTc: 468/447 ms P-R-T [place]: 50 : -33 : 10 degrees De Faith DO EKG Performing Organization Address [facility] de Phone Number [facility] CARDIOLOGY * EXTRA SYRINGE (07/30/2023 8:07 AM EST) Blood Blood specimen / Unknown 07/30/2023 8:07 AM EST 07/30/2023 8:15 AM EST De Faith DO LAB BLOOD ORDERABL ES Performing Organization Address [facility] de Phone Number LABORATORY [address] [address] * (ABNORMAL) RESPIRATORY PATHOGEN PANEL, PCR (07/30/2023 8:05 AM EST) Adenovirus by PCR Negative Negative 023 9:24 AM EST LABORATORY [facility] Coronavirus 229E by PCR Negative Negative 07/30/2023 9:24 AM EST LABORATORY [facility] Coronavirus HKU1 by PCR Negative Negative 07/30/2023 9:24 AM EST LABORATORY [facility] Coronavirus NL63 by PCR Negative Negative 07/30/2023 9:24 AM EST LABORATORY [facility] Coronavirus OC43 by PCR Negative Negative 07/30/2023 9:24 AM EST LABORATORY [facility] Coronavirus SARS-CoV-2 by PCR Positive(A) Negative 07/30/2023 9:24 AM EST LABORATORY [facility] Comment:Coronavirus SARS det ected by PCR (amplified probe). Test results reported to [facility]. Human Metapneumovirus by PCR Negative Negative 07/30/2023 9:24 AM EST LABORATORY [facility] Rhinovirus/Enterov irus by PCR Negative Negative 07/30/2023 9:24 AM EST LABORATORY [facility] Influenza A Virus by PCR Negative Negative 07/30/2023 9:24 AM EST LABORATORY [facility] Influenza B Virus by PCR Negative Negative 07/30/2023 9:24 AM EST LABORATORY [facility] Parainfluenza Virus 1 by PCR Negative Negative 07/30/2023 9:24 AM EST LABORATORY [facility] Parainfluenza Virus 2 by PCR Negative Negative 07/30/2023 9:24 AM EST LABORATORY [facility] Parainfluenza Virus 3 by PCR Negative Negative 07/30/2023 9:24 AM EST LABORATORY [facility] Parainfluenza Virus 4 by PCR Negative Negative 07/30/2023 9:24 AM EST LABORATORY [facility] Respiratory Syncytial Virus by PCR Negative Negative 07/30/2023 9:24 AM EST LABORATORY [facility] Bordetella pertussis by PCR Negative Negative 07/30/2023 9:24 AM EST LABORATORY [facility] Chlamydia pneumoniae by PCR Negative Negative 07/30/2023 9:24 AM EST LABORATORY [facility] Mycoplasma pneumoniae by PCR Negative Negative 07/30/2023 9:24 AM EST LABORATORY [facility] Bordetella parapertussis by PCR Negative Negative 07/30/2023 9:24 AM EST LABORATORY [facility] Comment: The primers that detect Rhinovirus may cross react with some Enterorviruses. The validation of bronchial specimens, tracheal aspirates, and throats for this assay was developed and performance characteristics determined by [employer]. The validation of alternate specimen types has not been cleared or approved by the U.S. Food and Drug Administration (FDA). It has been determined that such clearance or approval is not necessary. Upper Respiratory Mid-turbinate nasal swab / Unknown Non-blood Collection / Unknown 07/30/2023 8:05 AM EST 07/30/2023 8:14 AM EST De Faith DO LAB MICRO - GENERA L ORDERABLES LABORATORY [id number] [place] [address] documented in this encounter Visit Diagnoses Diagnosis Acute respiratory failure due to COVID-19 (HCC)- Primary SOB (shortness of breath) Shortness of breath Acute respiratory failure with hypoxia (HCC) Acute respiratory failure Chest pain Chest pain, unspecified Hypertrophic cardiomyopathy (HCC) Other hypertrophic cardiomyopathy Essential hypertension with goal blood pressure less than 140/90 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 Essential hypertension with goal blood pressure less than 140/90 Hypertrophic cardiomyopathy (HCC) Other hypertrophic cardiomyopathy Nonrheumatic mitral valve stenosis Pneumonia due to COVID-19 virus 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 documented in this encounter Administered Medications Inactive Administered Medications - up to 3 most recent administrations Medication Order MAR Action Action Date Dose Rate Site albuterol-ipratropium (Duoneb) inhalation solution 3 mL 3 mL, Nebulizer, ONCE, On 07/30/23 at 0830, For 1 dose, 3 mL = 0.5 mg ipratropium/ 2.5 mg albuterol Given 07/30/2023 8:14 AM EST 3 mL albuterol-ipratropium (Duoneb) inhalation solution 3 mL 3 mL, Nebulizer, ONCE, On 07/30/23 at 0830, For 1 dose, 3 mL = 0.5 mg ipratropium/ 2.5 mg albuterol Given 07/30/2023 8:13 AM EST 3 mL aspirin enteric coated tab 81 mg 81 mg, Oral, Daily(AM), First dose on 07/30/23 at 1230, Until Discontinued Given 08/02/2023 7:46 AM EST 81 mg Given 08/01/2023 8:44 AM EST 81 mg Given 07/31/2023 8:15 AM EST 81 mg dexAMETHasone (Decadron) tab 6 mg 6 mg, Oral, Daily(AM), First dose on 07/30/23 at 1230, Last dose on Mon08/08/23 at 0900, For 10 days, Please ONLY administer medication if patient is on Airborne Isolation. If patient not on Airborne Isolation, hold medication and contact provider for Isolation order. Given 08/01/2023 8:45 AM EST 6 mg Given 07/31/2023 8:15 AM EST 6 mg Given 07/30/2023 1:12 PM EST 6 mg dorzolamide-timolol (Cosopt Ocumeter Plus) ophthalmic solution 1 Drop 1 Drop, Both eyes, BID (.AM/PM), First dose on 07/30/23 at 2100, Until Discontinued Given 08/02/2023 7:[address] 1 Drop Given 08/01/2023 9:34 PM EST 1 Drop Given 08/01/2023 8:49 AM EST 1 Drop elemental magnesium (Magonate) oral liquid 108 mg 108 mg, Oral, Daily(AM), First dose on Mon07/30/23 at 1230, Until Discontinued Given 07/31/2023 8:21 AM EST 108 mg Given 07/30/2023 1:13 PM EST 108 mg Enoxaparin (Lovenox) inj 40 mg 40 mg, Subcutaneous, Q12H, First dose on Mon07/31/23 at 0900, Until Discontinued, If patient is on warfarin, inform provider if daily INR value is 2 or greater! Given 07/31/2023 8:17 AM EST 40 mg Abdomen Right Lower Enoxaparin (Lovenox) inj 40 mg 40 mg, Subcutaneous, Q12H, First dose (after last modification) on Mon08/01/23 at 0900, Until Discontinued, If patient is on warfarin, inform provider if daily INR value is 2 or greater! Given 08/02/2023 7:45 AM EST 40 mg Abdomen Right Lower Given 08/01/2023 9:34 PM EST 40 mg Ab domen Left Lower Furosemide (Lasix) inj 40 mg 40 mg, IV Push, ONCE, On 07/30/23 at 1215, For 1 dose Given 07/30/2023 1:02 PM EST 40 mg Furosemide (Lasix) inj 40 mg 40 mg, IV Push, Q12H, First dose on 07/30/23 at 2100, Last dose on Mon07/31/23 at 2100, For 3 doses Given 07/31/2023 8:29 PM EST 40 mg Given 07/31/2023 8:17 AM EST 40 mg Given 07/30/2023 8:49 PM EST 40 mg Latanoprost (Xalatan) 0.005 % ophthalmic solution 1 Drop 1 Drop, Both eyes, Daily(AM), First dose on Mon07/30/23 at 1230, Until Discontinued Given 07/30/2023 1:13 PM EST 1 D rop Latanoprost (Xalatan) 0.005 % ophthalmic solution 1 Drop 1 Drop, Both eyes, HS, First dose (after last modification) on Mon07/31/23 at 2200, Until Discontinued Given 08/01/2023 9:34 PM EST 1 Drop Given 07/31/2023 9:33 PM EST 1 Drop magnesium chloride ER (Mag-64) tab 128 mg 128 mg, Oral, Daily(AM), First dose on Mon08/01/23 at 0900, Until Discontinued, Each tablet contains 64 mg elemental Magnesium Due to various manufacturers, tablets labeled 70mg are considered to be equivalent Given 08/02/2023 7:45 AM EST 128 mg Given 08/01/2023 8:44 AM EST 128 mg methIMAzole (Tapazole) tab 2.5 mg 2.5 mg, Oral, Daily(AM), First dose on Mon07/31/23 at 0900, Until Discontinued Given 08/02/2023 7:45 AM EST 2.5 mg Given 08/01/2023 8:45 AM EST 2.5 mg Given 07/31/2023 8:15 AM EST 2.5 mg metoprolol succinate XL (toPROL XL) tab 25 mg 25 mg, Oral, Daily(AM), First dose on Mon07/31/23 at 0900, Until Discontinued, Hold for HR less than 60 or SBP below 100 and notify service if dose is held This med should NOT be Crushed or Chewed. Given 07/31/2023 8:16 AM EST 25 mg oxygen GAS Inhalation, OXYGEN, First dose on 07/30/23 at 1600, Until Discontinued, Device/Managed by: Low Flow Device, Goal SPO2 (%): 91-95, Starting Device: Nasal Cannula, Initial Flow Rate (LPM): 2, Lowest Support: Nasal Cannula: Flow 0-6 LPM. Titrate up/down by 1 LPM., Higher Support: Non-Rebreather (NRB) Mask: Minimum of 10 LPM. Titrate to maintain bag inflation., Titration Interval: Q2 minutes and as needed., Notify Provider: For sudden DECREASE in resting SPO2 to less than 85% and when escalating delivery device., Wean patient off Oxygen when the oxygen saturation is greater than or equal to 93% Oxygen On 08/02/2023 12:00 AM EST Oxygen On 07/31/2023 4:00 PM EST Oxygen On 07/31/2023 8:00 AM EST potassium chloride ER tab 20 mEq 20 mEq, Oral, BID (.AM/PM), First dose on Mon07/30/23 at 2100, Until Discontinued Given 08/02/2023 7:45 AM EST 20 mEq Given 08/01/2023 9:34 PM EST 20 mEq Given 08/01/2023 8:44 AM EST 20 mEq Remdesivir (Veklury) 100 mg in NSS 250 mL ivpb 100 mg, IV Piggyback, Q24H, 4 doses, First dose on Mon07/31/23 at 1200, Last dose on Mon08/03/23 at 1200, Run via a secondary line. After infusion complete, flush IV line with 30 mL of NSS at the same infusion rate to ensure all remdesivir solution has been administered. New Bag 08/01/2023 2:25 PM EST 100 mg 275 mL/hr New Bag 07/31/2023 12:00 PM EST 100 mg 275 mL/hr Remdesivir (Veklury) 200 mg in NSS 250 mL ivpb 200 mg, IV Piggyback, ONCE, 1 dose, On Mon07/30/23 at 1230, Run via a secondary line. After infusion complete, flush IV line with 30 mL of NSS at the same infusion rate to ensure all remdesivir solution has been administered. New Bag 07/30/2023 12:30 PM EST 200 mg 275 mL/hr Torsemide (Demadex) tab 10 mg 10 mg, Oral, Daily(AM), First dose on Mon08/01/23 at 0900, Until Discontinued Given 08/02/2023 7:46 AM EST 10 mg Given 08/01/2023 8:44 AM EST 10 mg Valsartan (Diovan) tab 160 mg 160 mg, Oral, Daily(AM), First dose (after last modification) on Mon07/31/23 at 0900, Until Discontinued Given 08/02/2023 7:45 AM EST 160 mg Given 08/01/2023 8:44 AM EST 160 mg Given 07/31/2023 8:15 AM EST 160 mg documented in this encounter Active and Recently Administered Medications Times are shown in EST. Scheduled Medication Order 07/31/2023 08/01/2023 08/02/2023 aspirin enteric coated tab 81 mg 81 mg, Oral, Daily(AM), First dose on 07/30/23 at 1230, Until Discontinued 0815 (Given - Provider: Jaimee Mcarthur RN) 0844 (Given - Provider: Jaimee Mcarhtur RN) 0746 (Given - Provider: Tania Harrison, RN) dexAMETHasone (Decadron) tab 6 mg (CANCELED) 6 mg, Oral, Daily(AM), First dose on Mon07/30/23 at 1230, Last dose on Mon08/08/23 at 0900, For 10 days, Please ONLY administer medication if patient is on Airborne Isolation. If patient not on Airborne Isolation, hold medication and contact provider for Isolation order. 0815 (Given - Provider: Jaimee Mcarthur RN) 0845 (Given - Provider: Jaimee Mcarthur RN) dorzolamide-timolol (Cosopt Ocumeter Plus) ophthalmic solution 1 Drop 1 Drop, Both eyes, BID (.AM/PM), First dose on 07/30/23 at 2100, Until Discontinued 1222 (Given - Provider: Jaimee Mcarthur RN)2030 (Given - Provider: Tania Garcia RN) 0849 (Given - Provider: Jaimee Mcarthur RN)2133 (Given - Provider: Lily Hooper LPN) 0747 (Given - Provider: Tania Harrison, RN) elemental magnesium (Magonate) oral liquid 108 mg (CANCELED) 108 mg, Oral, Daily(AM), First dose on 07/30/23 at 1230, Until Discontinued 0821 (Given - Provider: Jaimee Mcarthur RN) Enoxaparin (Lovenox) inj 40 mg (CANCELED) 40 mg, Subcutaneous, Q12H, First dose on Mon07/31/23 at 0900, Until Discontinued, If patient is on warfarin, inform provider if daily INR value is 2 or greater! 0817 (Given - Provider: Jaimee Mcarthur RN) Enoxaparin (Lovenox) inj 40 mg 40 mg, Subcutaneous, Q12H, First dose (after last modification) on Mon08/01/23 at 0900, Until Discontinued, If patient is on warfarin, inform provider if daily INR value is 2 or greater! 0848 (Not Given - Provider: Jaimee Mcarthur RN - Reason: Refused-Notify Provider)2133 (Given - Provider: Lily Hooper LPN) 744 (Given - Provider: Tania Harrison, MARTHA) Furosemide (Lasix) inj 40 mg (COMPLETED) 40 mg, IV Push, Q12H, First dose on Mon07/30/23 at 2100, Last dose on Mon07/31/23 at 2100, For 3 doses 816 (Given - Provider: Jaimee Mcarthur RN)2028 (Given - Provider: Tania Garcia RN) Latanoprost (Xalatan) 0.005 % ophthalmic solution 1 Drop 1 Drop, Both eyes, HS, First dose (after last modification) on Mon07/31/23 at 2200, Until Discontinued 2132 (Given - Provider: Lukasz Salinas LPN) 2133 (Given - Provider: Lily Hooper LPN) magnesium chloride ER (Mag-64) tab 128 mg 128 mg, Oral, Daily(AM), First dose on Mon08/01/23 at 0900, Until Discontinued, Each tablet contains 64 mg elemental Magnesium Due to various manufacturers, tablets labeled 70mg are considered to be equivalent 0844 (Given - Provider: Jaimee Mcarthur RN) 0745 (Given - Provider: Tania Harrison RN) methIMAzole (Tapazole) tab 2.5 mg 2.5 mg, Oral, Daily(AM), First dose on Mon07/31/23 at 0900, Until Discontinued 08 (Given - Provider: Jaimee Mcarthur RN) 0845 (Given - Provider: Jaimee Mcarthur RN) 0745 (Given - Provider: Tania Harrison, RN) metoprolol succinate XL (toPROL XL) tab 25 mg (CANCELED) 25 mg, Oral, Daily(AM), First dose on Mon07/31/23 at 0900, Until Discontinued, Hold for HR less than 60 or SBP below 100 and notify service if dose is held This med should NOT be Crushed or Chewed. 0816 (Given - Provider: Jaimee Mcarthur RN) 0900 (Not Given - Provider: Jaimee Mcarthur RN - Reason: Parameter(s) Not Met) 0746 (Not Given - Provider: Tania Harrison RN - Reason: Parameter(s) Not Met) oxygen GAS Inhalation, OXYGEN, First dose on 07/30/23 at 1600, Until Discontinued, Device/Managed by: Low Flow Device, Goal SPO2 (%): 91-95, Starting Device: Nasal Cannula, Initial Flow Rate (LPM): 2, Lowest Support: Nasal Cannula: Flow 0-6 LPM. Titrate up/down by 1 LPM., Higher Support: Non-Rebreather (NRB) Mask: Minimum of 10 LPM. Titrate to maintain bag inflation., Titration Interval: Q2 minutes and as needed., Notify Provider: For sudden DECREASE in resting SPO2 to less than 85% and when escalating delivery device., Wean patient off Oxygen when the oxygen saturation is greater than or equal to 93% 0000 (Oxygen On - Provider: Giovani Mauro RN)0800 (Oxygen On - Provider: Jaimee Mcarthur RN)1600 (Oxygen On - Provider: Jaimee Mcarthur RN) 0000 (Oxygen Off - Provider: Lukasz Salinas LPN)0800 (Oxygen Off - Provider: Jaimee Mcarthur RN)1600 (Oxygen Off - Provider: Jaimee Mcarthur RN) 0000 (Oxygen On - Provider: Lily Hooper LPN)0800 (Oxygen Off - Provider: Tania Harrison RN) potassium chloride ER tab 20 mEq 20 mEq, Oral, BID (.AM/PM), First dose on [place] 07/30/23 at 2100, Until Discontinued 0815 (Given - Provider: Jaimee Mcarthur RN)2029 (Given - Provider: Tania Garcia RN) 0844 (Given - Provider: Jaimee Mcarthur RN)2133 (Given - Provider: Lily Hooper LPN) 0745 (Given - Provider: Tania Harrison, MARTHA) Remdesivir (Veklury) 100 mg in NSS 250 mL ivpb (CANCELED) 100 mg, IV Piggyback, Q24H, 4 doses, First dose on Mon07/31/23 at 1200, Last dose on Mon08/03/23 at 1200, Run via a secondary line. After infusion complete, flush IV line with 30 mL of NSS at the same infusion rate to ensure all remdesivir solution has been administered. 1200 (New Bag - Provider: Jaimee Mcarhtur RN) 1356 (Not Given - Provider: Jaimee Mcarthur RN - Reason: Order Clarified)1425 (New Bag - Provider: Jaimee Mcarthur RN) Torsemide (Demadex) tab 10 mg 10 mg, Oral, Daily(AM), First dose on Mon08/01/23 at 0900, Until Discontinued 0844 (Given - Provider: Jaimee Mcarthur RN) 0746 (Given - Provider: Tania Harrison, MARTHA) Valsartan (Diovan) tab 160 mg 160 mg, Oral, Daily(AM), First dose (after last modification) on Mon07/31/23 at 0900, Until Discontinued 0815 (Given - Provider: Jaimee Mcarthur RN) 0844 (Given - Provider: Jaimee Mcarthur RN) 0745 (Given - Provider: Tania Harrison RN) PRN Medication Order 07/31/2023 08/01/2023 08/02/2023 Acetaminophen (Tylenol) tab 650 mg 650 mg, Oral, Q6H PRN Pain, Mild, Fever >38C(100.5F), Starting on 07/30/23 at 1149, Until Mon08/02/23 at 1734, Maximum of 4 grams (4000 mg) per day. Docusate Sodium (Colace) cap 100 mg 100 mg, Oral, DAILY PRN Constipation, Starting on 07/30/23 at 1149, Until Mon08/02/23 at 1734, For oral administration ONLY, if route of administration is other than oral and alternative product must be ordered. guaiFENesin-dm (Robitussin DM) oral syrup 10 mL 10 mL, Oral, Q4H PRN Cough, Starting on 07/30/23 at 1149, Until Mon08/02/23 at 1734 house antacid (Mi-Acid II) oral susp 15 mL 15 mL, Oral, Q4H PRN Indigestion, Starting on 07/30/23 at 1149, Until Mon08/02/23 at 1734, SHAKE WELL Menthol ([place]) cough drop 1 Lozenge 1 Lozenge, Oral, Q2H PRN Sore throat, Cough, Starting on 07/30/23 at 1149, Until Mon08/02/23 at 1734 ondansetron (Zofran) inj 4 mg 4 mg, IV Push, Q6H PRN Nausea, Starting on 07/30/23 at 1149, Until Mon08/02/23 at 1734 sodium chloride 0.9 % flush/inj 3 mL 3 mL, IV Push, PRN Other, Line Patency, Starting on 07/30/23 at 1145, Until Mon08/02/23 at 1734, Do not flush if lock, PICC, or central line not in place, IV infusing or unable to flush documented in this encounter Additional Health Concerns Infection Onset Date Last Indicated Resolved Time Respiratory Rule-Out 07/30/2023 07/30/2023 023 9:24 AM EST COVID-19 Rule-Out 07/30/2023 07/30/2023 07/30/2023 9:24 AM EST COVID-19 (confirmed) 07/30/2023 07/30/2023 documented as of [...] the patient have Health Care Power of Pathologist? No Full Code 09/30/2021 6:01 PM 09/30/2021 6:02 PM This or aydin reflects the patients wishes and were consensually agreed upon. Question Answer Comments Discussion of Advance Directives occurred with: Patient/Family Does the patient have a Living Will? No Does the patient have Health Care Power of Pathologist? No Care Teams Log Loader Helper Relationship Specialty Start Date End Date Jeanna Bal PA-C [address] [id number] [id number] PCP - General Physician Design Engineering Intern 06/13/17 documented as of this encounter
--- OUTSIDE RECORDS SUMMARY | 2023-12-06 21:52 | External Medical Summary ---
Author Name Unknown Address Unknown Organization K1G:LABORATORY [facility] - [facility]0 [facility] [id number] Laboratory Report Ordering Provider Test Date Status SONIA BANGURA JR 08/19/2023 13:19:12 Final Warfarin Therapy
INR: 2 .0-3.0 conventional anticoagulation
INR: 2.5- 3.5 high intensity anticoagulation Observation Date Value Abnormality Reference (Units ) Status PT 08/19/2023 13:19:12 16.6 Above high normal 11 .6-15.2 (seconds) Final INR 08/19/2023 13:19:12 1.3 Above high normal 0. 8-1.2 Final Performing Location LABORATORY [facility] - [address] [facility] [address]
--- OUTSIDE RECORDS SUMMARY | 2023-12-06 21:52 | External Medical Summary | Summary of Care ---
Author Name Unknown Organization [facility] Address [address] [place] [address] Phone [phone] Care Team Providers Care Cosmetic Sales Advisor Name Role Phone Jeanna Bal PA-C Primary Care Provi aydin Reason for Visit * Reason Comments Hospital Follow-Up Encounter Details Date Type Department Care Team (Latest Contact Info) Description 08/08/2023 10:30 AM EST Office Visit Pulmonary Medicine, [place] [address] [place] [address] Yocasta Proctor CRNP [address] [place] [address] SOB (shortness of breath)*; Abnormal CT of the chest; Acute respiratory failure due to COVID-19 (HCC); Pulmonary hypertension (HCC); Hypertrophic cardiomyopathy (HCC); 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 0 11/07/2022 Active Ipratropium-Albuter ol 0.5-2.5 (3) MG/3ML Inhalation Solution (Duoneb) Inhale 0.5 mg by mouth every 6 hours as needed for Shortness of Breath, Cough or Wheezing. 0 08/07/2023 Active Diovan 320 MG Oral Tablet Take 1 Tablet by mouth in the morning. 0 08/07/2023 Active Torsemide 10 MG Oral Tablet (Demadex) Take 1 Tablet by mouth in the morning. 0 08/03/2023 Active Fluticasone Furoate-Vilanterol 100-25 MCG/ACT Inhalation Aerosol Powder Breath Activated (BREO ellipta) Inhale 1 Puff by mouth in the morning. 60 Each 5 08/08/2023 Active Torsemide 5 MG Oral Tablet (Demadex)Indication s:Hypertrophic cardiomyopathy (HCC),Essential hypertension with goal blood pressure less than 140/90 Take 2 Tablets by mouth in the morning. 60 Tablet 0 08/02/2023 4 Discontinue d(Medicatio n/Dose Changed) Valsartan 160 MG Oral Tablet (Diovan) Take 1 Tablet by mouth in the morning. Brand name medically necessary. 30 Tablet 2 08/02/2023 4 Discontinue d(Medicatio n/Dose Changed) Baclofen 10 MG Oral Tablet (Lioresal) Take 1 Tablet by mouth 2 times a day as needed for Muscle spasms. 0 06/27/2023 4 Discontinue d(Adverse reaction) Hospital, Clinic, or Other Facility Administered Medication Ordered Dose Route Frequency Start Date End Date Status Albuterol Sulfate (Proventil) (2.5 MG/3ML) 0.083% inhalation solution 2.5 mgIndications:SOB (shortness of breath),Abnormal CT of the chest 2.5 mg NEBULIZER PRN 08/08/2023 Active documented as of this encounter (statuses as of 08/08/2023) Active Problems Problem Noted Date Diagnosed Date Acute on chronic combined sy stolic and diastolic heart failure due to valvular disease 07/30/2023 Graves disease 09/30/2021 Hypertrophic cardiomyopathy 06/21/2020 Nonrheumatic mitral valve stenosis 06/21/2020 Ascending aortic 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 Coronary artery disease invo [place]ving [place] coronary artery of [place] heart without angina pectoris 03/22/2016 Essential hypertension with goal blood pressure less than 140/90 03/22/2016 Dyslipidemia, goal to be determined 03/22/2016 documented as of this encounter (statuses as of 08/08/2023) Resolved Problems Problem Noted Date Diagnosed Date Resolved Date Acute respiratory failure due to COVID-19 07/30/2023 08/01/2023 Pneumonia due to COVID-19 virus 07/30/2023 08/01/2023 NSTEMI (non-ST elevated myoc ardial infarction) 09/30/2021 10/05/2021 Pain in both lower extremities 03/22/2016 07/30/2023 documented as of this encounter (statuses as of 08/08/2023) Immunizations Name Administration Dates Next Due COVID-19 [...] Sign Reading Time Taken Comments Blood Pressure 141/80 08/08/2023 10:38 AM EST Pulse 71 08/08/2023 10:38 AM EST Temperature 36.3 C (97.3 F) 08/08/2023 10:[address] Respiratory Rate - - Oxygen Saturation 93% 08/08/2023 10:38 AM EST Inhaled Oxygen Concentration - - Weight 90.7 kg (200 lb) 08/08/2023 10:38 AM EST Height - - Body Mass Index 40.37 07/30/2023 12:55 PM EST documented in this [...] No 07/30/2023 documented as of this encounter Progress Notes * Yocasta Proctor ABHISHEK - 08/08/2023 10:31 AM EST INITIAL PULMONARY OUTPATIENT CONSULTATION NOTE REFERRING PHYSICIAN: Jeanna Bal PA-C REASON FOR REFERRAL: Hospital discharge follow-up Dear Jeanna Bal PA-C, I had the pleasure of seeing Maria Luisa Recinos in our pulmonary outpatient clinic today. As you know shehas a history of DLD, Graves Disease, Second hand smoke exposure, CAD, Hypertrophic Cardiomyopathy,HTN, and Heart failure (systolic/diastolic). She is accompanied by her family at today's visit Chief complaint: MADDOX History: Ms. Recinos is a 87 year old female presenting to clinic for an evaluation after recent hospital stay for COVID. Hospital course per EPIC: HOSPITAL COURSE (focused): Patient is an 87 [...] failure exacerbation, diuresed 3.2L during admission. 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 Patient and family report that she has been having MADDOX and Dry cough for at least the last year. Denies seeing a Pulmonary Provider previously. Denies being diagnosed with asthma or COPD. Denies frequent bronchitis infections. Denies having pneumonia. Denies any history of exposure to TB. The patient states that she becomes short of breath after walking 50 feet and does not go up steps.In the last few years, she could walk 1/4 blocks. Denies any SOB when showering or dressing. Seasonal allergies Denies. PND Denies. Reflux Denies. Nocturnal symptoms currently coughing and wheezing. 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 Particulate Exposure: second hand smoker Related Symptoms: Worse Through the Week: Better Away From Work: Residence: Born and raised in [place] House/Apt: 1 story home Lives with: alone Duration: since 1967 Home Age: built in 89 Home Location: [place] Dust/Mold: Mold in the basement (she does not go in the basement) Heating: electric A/C: window units (currently out of the windows) Pet: denies Birds: denies Farm Animals: denies Hobbies: 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 Hot Tub/Sauna: denies Recent Travel: denies Service: denies Past Medical History: Past Medical History: Diagnosis Date AAA (abdominal aortic aneurysm) (HCC) Graves disease Hypertrophic cardiomyopathy (HCC) Mixed hyperlipidemia Nonrheumatic mitral valve stenosis Primary hypertension Past Surgical History: Past Surgical History: Procedure Laterality Date APPENDECTOMY W/OTHER PROCEDURE CORONARY ANGIOGRAPHY W/LEFT HEART CATH Right 10/04/2021 CORONARY ANGIOGRAPHY W/LEFT HEART CATH performed by Rodri Jacobs MD at [facility] LAP;W/HYSTERECTOMY [place] CHOLECYSTECTOMY Allergies: Review of patient's allergies indicates: Allergen Reactions Amoxicillin Hives Gatifloxacin Nausea/vomiting Latex Rash Other reaction(s): johnson Medications: Current Outpatient Medications Medication Sig Dispense Refill [...] 2 tabs in PM. methIMAzole 5 MG Oral Tablet (TAPAZOLE) Take [...] the morning and 2 Capsules before bedtime. Torsemide 5 MG Oral Tablet (Demadex) Take 2 Tablets by mouth in the morning. 60 Tablet 0 Valsartan 160 MG Oral Tablet (Diovan) Take 1 Tablet by mouth in the morning. Brand name medically necessary. 30 Tablet 2 Baclofen 10 MG Oral Tablet (Lioresal) Take 1 Tablet by mouth 2 times a day as needed for Muscle spasms. Ipratropium-Albuterol 0.5-2.5 (3) MG/3ML Inhalation Solution (Duoneb) Inhale 0.5 mg by mouth every 6 hours as needed for Shortness of Breath, Cough or Wheezing. No current facility-administered medications for this visit. Family History: Family History Problem Relation Age of Onset Diabetes Mother Stroke Mother Heart Disorder Father 63 [place] Hypertension Brother Heart Disorder Aunt (Unspecified) [place] Heart Disorder Uncle (Unspecified) [place] Hypertension Son Hypertension Daughter Brothers with COPD Family history of respiratory disease Social History: Marital Status: Occupation: retired Tobacco: denies Alcohol: denies Drugs: denies Review of Systems: Constitutional: no fevers, sweats, stable weight, preserved appetite Eyes: No recent significant change in vision, eye pain (+) glaucoma and wears glasses Ears: No ear pain, tinnitus, vertigo, or recent change in hearing Nose: No history of frequent colds, nasal stuffiness, or significant epistaxis Mouth: No bleeding gums, thrush or sore throat Neck: No significant pain in neck Pulmonary: See History Cardiovascular: No chest pain, edema or palpitations GI: No abdominal pain, change in bowel habits, or dysphagia Hematologic: No coagulation disorder, abnormal bleeding, or DVT/PE Skin/Integumentary: No abnormal skin lesions noted, evidence of rash, or itching Neurologic: Normal balance, No headaches, seizures or weakness (+) numbers to fingers bilateral hands Rheum: No dry eyes, Raynauds (+) arthritis Endocrine: (+) thyroid disease (Graves disease) Immuno:No history of environmental allergies or atopy Psychiatric: No depression or anxiety Sleep: (+) snoring Rest of the ROS is negative. Physical Exam: BP 141/80 | Pulse 71 | Temp 36.3 C (97.3 F) (Tympanic) | Wt 90.7 kg (200 lb) | SpO2 93% | BMI 40.37 kg/m | BSA 1.94 m General: Alert, elderly female, NAD, in wheelchair, obese, well developed Eyes: PERRLA, EOMI, Conjunctiva are pink and non-injected, sclera clear Ears: External ears normal, Canals clear. Nose: No mucosal erythema, no mucosal edema, no purulent discharge Oropharynx: Mask in placed, lowered to assess nose and mouth, No exudate, no erythema, buccal mucosa, and tongue normal Neck: Supple, no adenopathy, no bruits Lymph: No palpable lymphadenopathy Heart: Regular rate & rhythm, (+) systolic murmur Auscultated Lungs: Equal and bilateral breath sounds, lungs with cry crackles in the mid and lower lung villatoro,expiratory wheezing in the bilateral upper lung villatoro. Pulses: radial=2/4 Extremities: no joint deformities, edema, effusion, or inflammation. Neurologic: Alert & oriented x 3 with fluent speech, no focal motor/sensory deficits, gait not assessed, in wheelchair Skin: Skin color, texture, turgor are normal, no rashes or significant lesions Labs/Imaging/PFTs: No PFTs to review Component Latest Ref Rng 06/18/2020 09/30/2021 07/30/2023 Absolute Eosinophils 0.00 - 0.70 K/uL 0.47 0.44 0.32 Latest Reference Range & Units 07/30/23 08:10 BNP, NT-Pro <300 pg/mL 8,467 (H) (H): Data is abnormally high CXR 07/30/23 IMPRESSION: Diffuse interstitial opacities favored to reflect a combination of pulmonary edema and chronic interstitial lung changes. Atypical pneumonia is not excluded. CTA chest 09/30/2021 Lungs: Paraseptal fibrotic and emphysematous changes noted without interval change. 6 x 4 mm pleural base nodule posteromedial right upper lobe image 65/8 is unchanged since 2016. Bibasilar bronchiectasis, unchanged. Stable chronic pleuroparenchymal changes dating back to 2016. Pleural spaces: See "Lungs" finding. Heart: Dense mitral valvular calcification. Coronary artery calcifications. No identified pulmonary embolus. Lymph nodes: Prominent mediastinal lymph nodes unchanged largest is 19 mm in short axis with preserved fatty hilum, stable since 2016. Bones/joints: Thoracic spondylosis, unchanged. Soft tissues: Unremarkable. Other findings: Sinus of Valsalva 36 mm, stable; Proximal descending 24 mm, stable; Distal descending 21 mm, stable. No dissection. IMPRESSION: No acute findings in the chest. No interval change from 02/28/2016. Echo 02/23/23 Interpretation Summary The qualitative LV ejection fraction is >70% (hyperdynamic). The LV wall thickness is severely increased (concentric). The left atrium is severely enlarged (>48 ml/m^2,). The aortic valve has three leaflets. The aortic valve is moderately calcified. Mild aortic valve stenosis is present. WENDY 1.5 cm2 per 2D planimetry. Mild aortic valve regurgitation is present. There is severe mitral annular calcification. The mitral valve chordae are thickened and diffusely calcified. Moderate mitral stenosis is present. Mild to moderate mitral regurgitation which may be underestimated due to acoustic shadowing relatedto severe mitral annular calcification. Moderate tricuspid regurgitation is present. The estimated pulmonary artery systolic pressure is 54mm Hg. The ascending aorta is moderately enlarged, 4.6 cm. Compared to last available study changes are noted as follows: The estimated systolic pulmonary arterial pressure has increased. Assessment: 1. MADDOX, Abnormal CT chest, septal thickebing with peripheral interstitial changes, with worsens in the bases, early fibrosis with Bronchiectasis 2. Recent Admission for COVID 3. Systolic/Diastolic Heart failure, Pulmonary HTN on Echo, Hypertrophic Cardiomyopathy 4. Second hand smoke exposure 5. Obesity, Body mass index is 40.37 kg/m. 6. Concern for ASH Recommendations and Plans: 1. Will do Full PFTs with walk testing - hold off 1 month due to recent COVID infection 2. Will need updated CT chest, but will wait to due to recent COVID - Recommend HRCT Chest 3. Will Start Breo 100-25 mcg 1 puff once daily - Advised to rinse mouth after use 4. May continue to use Duonebs BID - do not recommend increasing at this time due to Glaucoma diagnosis - Discussed this with family 5. Will do Nocturnal oximetry on RA - Will help to determine if oxygen requirement and also needs Sleep Med evaluation 6. Continue Diuretics 7. I have scheduled a follow up visit in 2 months from today's visit. I have advised the patient to call our office incase of any worsening or new symptoms. I spent a total of 50 minutes on the date of service in preparation, delivery, and documentation ofthe care provided to Maria Luisa Recinos excluding any time spent in the performance of separately billed services. Yocasta Proctor, MARQUES, ABHISHEK [facility] Thoracic Medicine documented in this encounter Plan of Treatment Upcoming Encounters Date Type Department Care Team (Late st Contact Info) Description 09/06/2023 9:00 AM EST Office Visit Cardiology, [facility] [address] [facility] [place] [id number] Jennifer Queen PA-C [address] [place] [id number] 09/15/2023 10:30 AM EST PulmDiagnostic Pulmonary Function Lab, [address] [place] [address] Gjsh, Pulm Func Tech [address] [place] [address] 10/10/2023 9:30 AM EDT Office Visit Pulmonary Medicine, [place] [address] [place] [address] Yoacsta Proctor CRNP [address] [place] [address] [phone] (work) Scheduled Orders Name Type Priority Associated Diagnoses Orde r Schedule SPIROMETRY B/A BRONCHODILATOR Procedures Routine SOB (shortness of breath) Abnormal CT of the chest Ordered: 08/08/2023 PULMONARY STRESS TESTING Procedures Routine SOB (shortness of breath) Abnormal CT of the chest Ordered: 08/08/2023 LUNG VOLUMES (PLETHYSMOGRAPHY) Procedures Routine SOB (shortness of breath) Abnormal CT of the chest Ordered: 08/08/2023 DIFFUSION CAPACITY (DLCO) Procedures Routine SOB (shortness of breath) Abnormal CT of the chest Ordered: 08/08/2023 NOCTURNAL HOME OXIMETRY (OP) Procedures Routine SOB (shortness of breath) Abnormal CT of the chest Acute respiratory failure due to COVID-19 (HCC) Pulmonary hypertension (HCC) Ordered: 08/08/2023 Health Maintenance Due Date Last Done Comments [...] (shortness of breath)- Primary Shortness of breath Abnormal CT of the chest Nonspecific (abnormal) findings on radiological and other examination of other intrathoracic organs Acute respiratory failure due to COVID-19 (HCC) Pulmonary hypertension (HCC) Other chronic pulmonary heart diseases Hypertrophic cardiomyopathy (HCC) Other hypertrophic cardiomyopathy 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 No Full Code 09/30/2021 6:01 PM 09/30/2021 6:02 PM This or aydin reflects the patients wishes and were consensually agreed upon. Question Answer Comments Discussion of Advance Directives occurred with: Patient/Family Does the patient have a Living Will? No Does the patient have Health Care Power of Sweatband Shaper? No Care Teams Cosmetic Sales Advisor Relationship Specialty Start Date End Date Jeanna Bal PA-C [address] [address] [place] [id number] PCP - General Physician Slope Tender 06/13/17 documented as of this encounter
--- OUTSIDE RECORDS SUMMARY | 2023-12-06 21:52 | External Medical Summary ---
Author Name Unknown Address Unknown Organization K1G:LABORATORY [facility] - [address] [facility] [id number] Laboratory Report Ordering Provider Test Date Status DIONE SALEEM 08/01/2023 06:22:00 Final Warfarin Therapy
INR: 2 .0-3.0 conventional anticoagulation
INR: 2.5- 3.5 high intensity anticoagulation Observation Date Value Abnormality Reference (Units ) Status PT 08/01/2023 06:22:00 17.6 Above high normal 11 .6-15.2 (seconds) Final INR 08/01/2023 06:22:00 1.4 Above high normal 0. 8-1.2 Final Performing Location LABORATORY [facility] - [address] [facility] [phone]
--- OUTSIDE RECORDS SUMMARY | 2023-12-06 21:52 | External Medical Summary ---
Author Name Unknown Address Unknown Organization K1G:LABORATORY [facility] - [address] [facility] [id number] Laboratory Report Ordering Provider Test Date Status SONIA BANGURA JR 08/19/2023 13:20:19 Final ADMITTED patient Observation Date Value Abnormality Reference (Units ) Status Adenovirus DNA [Presence] in Nasopharynx by DEAN with non-probe detection 08/19/2023 13:20:19 Negative Negative Final Human coronavirus 229E RNA [Presence] in Nasopharynx by DEAN with non-probe detection 08/19/2023 13:20:19 Negative Negative Final Human coronavirus HKU1 RNA [Presence] in Nasopharynx by DEAN with non-probe detection 08/19/2023 13:20:19 Negative Negative Final Human coronavirus NL63 RNA [Presence] in Nasopharynx by DEAN with non-probe detection 08/19/2023 13:20:19 Negative Negative Final Human coronavirus OC43 RNA [Presence] in Nasopharynx by DEAN with non-probe detection 08/19/2023 13:20:19 Negative Negative Final SARS-CoV-2 (COVID-19) RNA [Presence] in Nasopharynx by DEAN with non-probe detection 08/19/2023 13:20:19 Negative Negative Final Human metapneumovirus RNA [Presence] in Nasopharynx by DEAN with non-probe detection 08/19/2023 13:20:19 Negative Negative Final Rhinovirus+Enterovirus RNA [Presence] in Nasopharynx by DEAN with non-probe detection 08/19/2023 13:20:19 Negative Negative Final Influenza virus A RNA [Presence] in Nasopharynx by DEAN with non-probe detection 08/19/2023 13:20:19 Negative Negative Final Influenza virus B RNA [Presence] in Nasopharynx by DEAN with non-probe detection 08/19/2023 13:20:19 Negative Negative Final Parainfluenza virus 1 RNA [Presence] in Nasopharynx by DEAN with non-probe detection 08/19/2023 13:20:19 Negative Negative Final Parainfluenza virus 2 RNA [Presence] in Nasopharynx by DEAN with non-probe detection 08/19/2023 13:20:19 Negative Negative Final Parainfluenza virus 3 RNA [Presence] in Nasopharynx by DEAN with non-probe detection 08/19/2023 13:20:19 Negative Negative Final Parainfluenza virus 4 RNA [Presence] in Nasopharynx by DEAN with non-probe detection 08/19/2023 13:20:19 Negative Negative Final Respiratory syncytial virus RNA [Presence] in Nasopharynx by DEAN with non-probe detection 08/19/2023 13:20:19 Negative Negative Final Bordetella pertussis.pertussis toxin promoter region [Presence] in Nasopharynx by DEAN with non-probe detection 08/19/2023 13:20:19 Negative Negative Final Chlamydophila pneumoniae DNA [Presence] in Nasopharynx by DEAN with non-probe detection 08/19/2023 13:20:19 Negative Negative Final Mycoplasma pneumoniae DNA [Presence] in Nasopharynx by DEAN with non-probe detection 08/19/2023 13:20:19 Negative Negative Final Bordetella parapertussis [id number] DNA [Presence] in Nasopharynx by DEAN with non-probe detection 08/19/2023 13:20:19 Negative Negative Final
The primers that detect Rhinovirus may cross react with some Enterorviruses. The validation of bronchial specimens, tracheal aspirates, and throats for this assay was developed and performance characteristics determined by [employer]. The validation of alternate specimen types has not been cleared or approved by the U.S. Food and Drug Administration (FDA). It has been determined that such clearance or approval is not necessary. Performing Location [facility] - [address] [place] [phone]
--- OUTSIDE RECORDS SUMMARY | 2023-12-06 21:52 | External Medical Summary ---
Author Name Unknown Address Unknown Organization K1G:LABORATORY [facility] - [address] [place] [id number] Laboratory Report Ordering Provider Test Date Status DIONE SALEEM 08/01/2023 06:22:00 Final Observation Date Value Abnormality Reference (Units ) Status ALT (Alanine aminotransferase) 08/01/2023 06:22:00 22 10-35 (U/L) Final Performing Location LABORATORY [facility] - [address] [place] [phone]
--- OUTSIDE RECORDS SUMMARY | 2023-12-06 21:52 | External Medical Summary ---
Author Name Unknown Address Unknown Organization K1G:LABORATORY [facility] - [address] [place] [id number] Laboratory Report Ordering Provider Test Date Status SONIA BANGURA JR 08/19/2023 13:19:12 Final Exclude Heart Failure: <300 pg/mL
Diagnose Heart Failure:
Age <50 yr: >450 pg/mL
50-75 yr: >900 pg/mL
>75 yr: >1800 pg/mL
GFR is 30-59 mL/min: >1200 pg/mL or Age- adjusted values
GFR <30 mL/min: do not use, not reliable

Prognostic threshold: 1000 pg/mL Observation Date Value Abnormality Reference (Units ) Status BNP, Pro-hormone 08/19/2023 13:19:12 9805 Above high no rmal <300 (pg/mL) Final Performing Location LABORATORY [facility] - [address] [place] [phone]
--- OUTSIDE RECORDS SUMMARY | 2023-12-06 21:52 | External Medical Summary ---
Author Name Unknown Address Unknown Organization K01:[facility] [place] [address] [place] [address] Laboratory Report Ordering Provider Test Date Status NINA LARSEN 08/19/2023 16:37:00 Final Observation Date Value Abnormality Reference (Units) Status Bacteria identified in Specimen by Culture 08/19/2023 16:37:00 Specimen unsatisfactory. Not tested. 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 Further processing may yield potentially misleading results. Final Test: Culture, Respiratory, Lower, Aerobic
Specimen Source: Sputum
Specimen Type: Lower Respiratory
Specimen Date: 08/19/2023 4:37 PM
Result Date: 08/20/2023 5:45 PM
Result Status: Final result
Resulting Lab: [facility] [place]
[address]
[place] [id number]

CULTURE

Specimen unsatisfactory. Not tested.

STAIN

Specimen contaminated with epithelial cells automotive leasing sales representative of oropharyngeal
contamination. Further processing may yield potentially misleading results.

null Performing Location [facility] [place] [address] [place] [phone]
--- OUTSIDE RECORDS SUMMARY | 2023-12-06 21:52 | External Medical Summary ---
Author Name Unknown Address Unknown Organization K01:[facility] [place] [address] [place] [address] Laboratory Report Ordering Provider Test Date Status NINA LARSEN 08/19/2023 13:19:12 Final Less than 0.5 ng/mL: Low ris [...] [Mass/volume] in Serum or Plasma by Immunoassay 08/19/2023 13:19:12 0.10 Above high normal <0.10 (ng/mL) Final Performing Location [facility] [place] [facility] [address] [place] [address]
--- OUTSIDE RECORDS SUMMARY | 2023-12-06 21:52 | External Medical Summary ---
Author Name Unknown Address Unknown Organization K1G:LABORATORY [facility] - [address] [facility] [address] Laboratory Report Ordering Provider Test Date Status SONIA BANGURA JR 08/19/2023 13:19:12 Final Observation Date Value Abnormality Reference (Units ) Status BUN 08/19/2023 13:19:12 18 6-20 (mg/dL) Final Creatinine 08/19/2023 13:19:12 1.0 0.5-1.0 (mg/dL) Final Glomerular filtration rate/1.73 sq M.predicted [Volume Rate/Area] in Serum, Plasma or Blood by Creatinine-based formula (CKD-EPI) 08/19/2023 13:19:12 58 Below low normal >=60 (mL/min) Final eGFR is calculated based on the CKD-EPI 2020 equation SODIUM 08/19/2023 13:19:12 130 Below low normal 135 -146 (mmol/L) Final Potassium 08/19/2023 13:19:12 4.1 3.5-5.1 (m mol/L) Final Cl 08/19/2023 13:19:12 95 Below low normal 98- 107 (mmol/L) Final CO2 08/19/2023 13:19:12 23 22-32 (mmo l/L) Final Anion gap 08/19/2023 13:19:12 12 7-15 (mmol /L) Final Glucose 08/19/2023 13:19:12 108 70-120 (mg /dL) Final Albumin 08/19/2023 13:19:12 3.5 Below low normal 3.8 -5.0 (g/dL) Final AST (Aspartate aminotransferase) 08/19/2023 13:19:12 30 10-35 (U/L) Fin al Alk Phos 08/19/2023 13:19:12 118 35-130 (U/ L) Final Bilirubin, Total 08/19/2023 13:19:12 1.3 Above high no rmal <=1.2 (mg/dL) Final Calcium 08/19/2023 13:19:12 8.9 8.4-10.2 ( mg/dL) Final Protein 08/19/2023 13:19:12 7.4 6.0-8.3 (g /dL) Final ALT (Alanine aminotransferase) 08/19/2023 13:19:12 18 10-35 (U/L) Deo mohan Performing Location LABORATORY [facility] - [address] [place] [phone]
--- OUTSIDE RECORDS SUMMARY | 2023-12-06 21:52 | External Medical Summary ---
Author Name Unknown Address Unknown Organization K1G:LABORATORY [facility] - [address] [place] [id number] Laboratory Report Ordering Provider Test Date Status SONIA BANGURA JR 08/19/2023 13:19:12 Final Anticoagulation may affect t esting. Refer to [facility] Test Catalog for a list of effects. Observation Date Value Abnormality Reference (Units ) Status aPTT panel - Platelet poor plasma 08/19/2023 13:19:12 36 21-38 (seconds) Final Performing Location LABORATORY [facility] - [facility] [address]
--- OUTSIDE RECORDS SUMMARY | 2023-12-06 21:52 | External Medical Summary ---
Author Name Unknown Address Unknown Organization K1G:LABORATORY [facility] - [address] [facility] [phone] Laboratory Report Ordering Provider Test Date Status SONIA BANGURA JR 08/19/2023 13:19:12 Final Observation Date Value Abnormality Reference (Units ) Status Body temperature 08/19/2023 13:19:12 37.0 (C) Final pH of Venous blood 08/19/2023 13:19:12 7.422 7.320-7.430 (units) Final Carbon dioxide [Partial pressure] in Venous blood 08/19/2023 13:19:12 40.5 40.0-60.0 (mmHg) Final Oxygen [Partial pressure] in Venous blood 08/19/2023 13:19:12 28.7 25.0-50.0 (mmHg) Final Base excess, Capillary 08/19/2023 13:19:12 1.7 -2.0-2.0 (mmol/L) Final Hemoglobin [Mass/volume] in Blood by Oximetry 08/19/2023 13:19:12 14.3 12.0-15.3 (g/dL) Final Oxyhemoglobin, Venous (FO2HB) 08/19/2023 13:19:12 46.7 40.0-85.0 (% total Hgb) Final Carboxyhemoglobin 08/19/2023 13:19:12 1.6 Above high normal <=1.5 (% total Hgb) Final Smokers: 0-9.0 % Methemoglobin 08/19/2023 13:19:12 0.7 <=1.5 (% total Hgb) Final Deoxyhemoglobin/Hemoglobin.t otal in Venous blood 08/19/2023 13:19:12 51.0 (% total Hgb) Ambar l Oxygen content in Venous blood 08/19/2023 13:19:12 9.3 7.0-18.0 (%vol) Final Bicarbonate, Venous, POC (i-STAT) 08/19/2023 13:19:12 26.3 23.0-31.0 (mmol/L) nal Performing Location LABORATORY [facility] - [facility] [address]
--- OUTSIDE RECORDS SUMMARY | 2023-12-06 21:52 | External Medical Summary | Summary of Care ---
Author Name Unknown Organization [facility] Address [address] [place] [address] Phone [phone] Care Team Providers Care Rivet Maker Name Role Phone Jeanna Bal PA-C Primary Care Provi aydin Encounter Details Date Type Department Care Team (Late st Contact Info) Description 08/08/2023 Telephone Pulmonary Medicine, [place] [address] [place] [address] Yocasta Proctor CRNP [address] [place] [address] Allergies Active Allergy Reactions Criticality Noted Date [...] the morning. 60 Each 5 08/08/2023 Active Hospital, Clinic, or Other Facility Administered [...] 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 Coronary artery disease invo lving [place] coronary artery of [place] heart without angina pectoris 03/22/2016 Essential hypertension [...] AM EST Noc Ox order placed on [employer] platform documented in this encounter Plan of Treatment Upcoming Encounters Date Type Department Care Team (Late st Contact Info) Description 09/06/2023 9:00 AM EST Office Visit Cardiology, [facility] [address] [place] [address] Jennifer Queen PA-C [address] [place] [address] 09/15/2023 10:30 AM EST PulmDiagnostic Pulmonary Function Lab, [place] [address] [place] [address] G[facility], Pulm Func Tech [address] [place] [address] 10/10/2023 9:30 AM EDT Office Visit Pulmonary Medicine, [place] [address], [place] [phone] Yocasta Proctor CRNP [address], [place] [phone] Health Maintenance Due Date Last Done Comments [...] the patient have Health Care Power of Leak Patcher? No Full Code 09/30/2021 6:01 PM 09/30/2021 6:02 PM This or aydin reflects the patients wishes and were consensually agreed upon. Question Answer Comments Discussion of Advance Directives occurred with: Patient/Family Does the patient have a Living Will? No Does the patient have Health Care Power of Leak Patcher? No Care Teams Rivet Maker Relationship Specialty Start Date End Date Jeanna Bal PA-C [address] [place] [address] [place] [id number] PCP - General Physician Stucco Worker 06/13/17 documented as of this encounter
--- OUTSIDE RECORDS SUMMARY | 2023-12-06 21:52 | External Medical Summary ---
Author Name Unknown Address Unknown Organization K1G:LABORATORY [facility] - [address] [place] [phone] Laboratory Report Ordering Provider Test Date Status DIONE SALEEM 08/02/2023 06:28:00 Final Observation Date Value Abnormality Reference (Units ) Status BUN 08/02/2023 06:28:00 40 Above high normal 6-20 (mg/dL) Final Creatinine 08/02/2023 06:28:00 1.1 Above high normal 0.5-1.0 (mg/dL) Final Glomerular filtration rate/1.73 sq M.predicted [Volume Rate/Area] in Serum, Plasma or Blood by Creatinine-based formula (CKD-EPI) 08/02/2023 06:28:00 50 Below low normal >=60 (mL/min) Final eGFR is calculated based on the CKD-EPI 2020 equation SODIUM 08/02/2023 06:28:00 129 Below low normal 135 -146 (mmol/L) Final Potassium 08/02/2023 06:28:00 4.7 3.5-5.1 (m mol/L) Final Cl 08/02/2023 06:28:00 95 Below low normal 98- 107 (mmol/L) Final CO2 08/02/2023 06:28:00 23 22-32 (mmo l/L) Final Anion gap 08/02/2023 06:28:00 11 7-15 (mmol /L) Final Glucose 08/02/2023 06:28:00 112 70-120 (mg /dL) Final Calcium 08/02/2023 06:28:00 8.8 8.4-10.2 ( mg/dL) Final Performing Location LABORATORY [facility] - [address] [facility] [address] [address]
--- OUTSIDE RECORDS SUMMARY | 2023-12-06 21:52 | External Medical Summary | Summary of Care ---
Author Name Unknown Organization [facility] Address [address] [facility] [place] [address] Phone [phone] Care Team Providers Care Baseball Player Name Role Phone Jeanna Bal PA-C Primary Care Provi aydin Reason for Visit * Reason Onset Date Comments Advice 08/02/2023 Encounter Details Date Type Department Care Team (Late st Contact Info) Description 08/02/2023 Telephone Cardiology, [facility] [address] [place] [address] Jennifer Qeuen PA-C [address] [place] [address] Advice Allergies Active Allergy Reactions Criticality Noted Date Comments Amoxicillin Hives Medium 03/22/2016 Gatifloxacin Nausea/vomiting Medium 03/22/2016 Latex Rash Medium 03/22/2016 Other reaction(s): johnson documented as of this encounter (statuses as of 08/10/2023) Medications Medication Sig Dispensed Refills Start Date [...] 2 Capsules before bedtime. 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 07/30/2023 Graves disease 09/30/2021 Hypertrophic cardiomyopathy 06/21/2020 Nonrheumatic mitral valve stenosis 06/21/2020 Ascending aortic 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 Coronary artery disease invo lving [place] coronary artery of [place] heart without angina pectoris 03/22/2016 Essential hypertension with goal blood pressure less than 140/90 03/22/2016 Dyslipidemia, goal to be determined 03/22/2016 documented as of this encounter (statuses as of 08/10/2023) Resolved Problems Problem Noted Date Diagnosed Date Resolved Date Acute respiratory failure due to COVID-19 07/30/2023 08/01/2023 Pneumonia due to COVID-19 virus 07/30/2023 08/01/2023 NSTEMI (non-ST elevated myoc ardial infarction) 09/30/2021 10/05/2021 Pain in both lower extremities 03/22/2016 07/30/2023 documented as of this encounter (statuses as of 08/10/2023) Immunizations Name Administration Dates Next Due COVID-19 [...] encounter Miscellaneous Notes * Telephone Encounter - Jennifer Queen PA-C - 08/09/2023 9:20 PM EST Agree with med changes. Keep f/u as scheduled in several weeks and can re-evaluate meds at that time. Please let her know * Telephone Encounter - Temitope Tang OSA - 08/02/2023 4:27 PM EST Person calling: Betty Relationship to patient: Patient's daughter Number to return call: [phone] Reason for call: Medication Questions/Advice Pharmacy: n/a Provider Name: RADHA Barry Elizabeth called to request a return call to discuss patient's recent change with medications. Betty reports that patient was at [facility] and they had made changes with her medications while she was inpatient and then on her discharge instructions it stated to stop the Metoprolol and Valsartan Hydrochlorothiazide but start the Valsartan without the Hydrochlorothiazide . Please return Betty's call. documented in this encounter Plan of Treatment Upcoming Encounters Date Type Department Care Team (Late st Contact Info) Description 09/06/2023 9:00 AM EST Office Visit Cardiology, [facility] [address] [place] [phone] Jennifer Queen PA-C [address] [place] [address] 09/15/2023 10:30 AM EST PulmDiagnostic Pulmonary Function Lab, [address] [address] [facility], Pulm Func Tech [address] [place] [address] 10/10/2023 9:30 AM EDT Office Visit Pulmonary Medicine, [place] [address] [place], [place] [phone] Yocasta Proctor CRNP [address] [place], [place] [phone] Health Maintenance Due Date Last Done Comments [...] the patient have Health Care Power of Wire Coiler Machine Operator? No Full Code 09/30/2021 6:01 PM 09/30/2021 6:02 PM This or aydin reflects the patients wishes and were consensually agreed upon. Question Answer Comments Discussion of Advance Directives occurred with: Patient/Family Does the patient have a Living Will? No Does the patient have Health Care Power of Wire Coiler Machine Operator? No Care Teams Baseball Player Relationship Specialty Start Date End Date Jeanna Bal PA-C [address] [place] [address] [place] [id number] PCP - General Physician Pediatrics Teacher 06/13/17 documented as of this encounter
--- OUTSIDE RECORDS SUMMARY | 2023-12-06 21:52 | External Medical Summary ---
Author Name Unknown Address Unknown Organization K1G:LABORATORY [facility] - [address] [place] [phone] Laboratory Report Ordering Provider Test Date Status DIONE SALEEM 08/01/2023 06:22:00 Final Observation Date Value Abnormality Reference (Units ) Status BUN 08/01/2023 06:22:00 34 Above high normal 6-20 (mg/dL) Final Creatinine 08/01/2023 06:22:00 1.0 0.5-1.0 (mg/dL) Final Glomerular filtration rate/1.73 sq M.predicted [Volume Rate/Area] in Serum, Plasma or Blood by Creatinine-based formula (CKD-EPI) 08/01/2023 06:22:00 55 Below low normal >=60 (mL/min) Final eGFR is calculated based on the CKD-EPI 2020 equation SODIUM 08/01/2023 06:22:00 131 Below low normal 135 -146 (mmol/L) Final Potassium 08/01/2023 06:22:00 3.7 3.5-5.1 (m mol/L) Final Cl 08/01/2023 06:22:00 96 Below low normal 98- 107 (mmol/L) Final CO2 08/01/2023 06:22:00 22 22-32 (mmo l/L) Final Anion gap 08/01/2023 06:22:00 13 7-15 (mmol /L) Final Glucose 08/01/2023 06:22:00 115 70-120 (mg /dL) Final Calcium 08/01/2023 06:22:00 8.8 8.4-10.2 ( mg/dL) Final Performing Location LABORATORY [facility] - [address] [facility] [phone]
--- OUTSIDE RECORDS SUMMARY | 2023-12-06 21:52 | External Medical Summary ---
Author Name Unknown Address Unknown Organization K1G:LABORATORY [facility] - [address] [place] [phone] Laboratory Report Ordering Provider Test Date Status DIONE SALEEM 08/01/2023 06:22:00 Final Observation Date Value Abnormality Reference (Units ) Status AST (Aspartate aminotransferase) 08/01/2023 06:22:00 32 10-35 (U/L) Final Performing Location LABORATORY [facility] - [address] [place] [phone]
--- OUTSIDE RECORDS SUMMARY | 2023-12-06 21:52 | External Medical Summary ---
Author Name Unknown Address Unknown Organization K1G:LABORATORY [facility] - [address] [place] [phone] Laboratory Report Ordering Provider Test Date Status SONIA BANGURA 08/19/2023 13:19:12 Final Observation Date Value Abnormality Reference (Units ) Status WBC, Total 08/19/2023 13:19:12 9.92 4.00-10.8 0 (K/uL) Final RBC 08/19/2023 13:19:12 4.68 3.85-5.15 (M/uL) Final Hemoglobin 08/19/2023 13:19:12 13.7 12.0-15.3 (g/dL) Final HCT 08/19/2023 13:19:12 41.4 36.0-45.2 (%) Final MCV 08/19/2023 13:19:12 88.5 81.5-97.5 (fL) Final MCH 08/19/2023 13:19:12 29.3 27.0-34.0 (pg) Final MCHC 08/19/2023 13:19:12 33.1 32.0-36.0 (g/dL) Final RDW 08/19/2023 13:19:12 15.6 11.5-15.5 (%) Final Platelets 08/19/2023 13:19:12 300 140-400 (K /uL) Final MPV 08/19/2023 13:19:12 9.0 6.6-11.1 ( fL) Final Performing Location LABORATORY [facility] - [address] [place] [phone]
--- OUTSIDE RECORDS SUMMARY | 2023-12-06 21:53 | External Medical Summary ---
Author Name Unknown Address Unknown Organization K1G:LABORATORY [facility] - [address] [place] [phone] Laboratory Report Ordering Provider Test Date Status DANI DURÁN 07/30/2023 08:10:49 Final Observation Date Value Abnormality Reference (Units ) Status WBC, Total 07/30/2023 08:10:49 10.48 4.00-10.8 0 (K/uL) Final RBC 07/30/2023 08:10:49 4.48 3.85-5.15 (M/uL) Final Hemoglobin 07/30/2023 08:10:49 13.2 12.0-15.3 (g/dL) Final HCT 07/30/2023 08:10:49 38.6 36.0-45.2 (%) Final MCV 07/30/2023 08:10:49 86.2 81.5-97.5 (fL) Final MCH 07/30/2023 08:10:49 29.5 27.0-34.0 (pg) Final MCHC 07/30/2023 08:10:49 34.2 32.0-36.0 (g/dL) Final RDW 07/30/2023 08:10:49 14.4 11.5-15.5 (%) Final Platelets 07/30/2023 08:10:49 296 140-400 (K /uL) Final MPV 07/30/2023 08:10:49 8.7 6.6-11.1 ( fL) Final Performing Location LABORATORY [facility] - [address] [facility] [address]
--- OUTSIDE RECORDS SUMMARY | 2023-12-06 21:53 | External Medical Summary ---
Author Name Unknown Address Unknown Organization K1G:LABORATORY [facility] - [address] [place] [phone] Laboratory Report Ordering Provider Test Date Status DANI DURÁN 07/30/2023 08:10:49 Final Observation Date Value Abnormality Reference (Units ) Status BUN 07/30/2023 08:10:49 17 6-20 (mg/dL) Final Creatinine 07/30/2023 08:10:49 0.9 0.5-1.0 (mg/dL) Final Glomerular filtration rate/1.73 sq M.predicted [Volume Rate/Area] in Serum, Plasma or Blood by Creatinine-based formula (CKD-EPI) 07/30/2023 08:10:49 60 >=60 (mL/min) Final eGFR is calculated based on the CKD-EPI 2020 equation SODIUM 07/30/2023 08:10:49 128 Below low normal 135 -146 (mmol/L) Final Potassium 07/30/2023 08:10:49 4.0 3.5-5.1 (m mol/L) Final Cl 07/30/2023 08:10:49 97 Below low normal 98- 107 (mmol/L) Final CO2 07/30/2023 08:10:49 20 Below low normal 22- 32 (mmol/L) Final Anion gap 07/30/2023 08:10:49 11 7-15 (mmol /L) Final Glucose 07/30/2023 08:10:49 166 Above high normal 70 -120 (mg/dL) Final Calcium 07/30/2023 08:10:49 9.0 8.4-10.2 ( mg/dL) Final Performing Location [facility] [address] [facility] [address] [address]
--- OUTSIDE RECORDS SUMMARY | 2023-12-06 21:53 | External Medical Summary ---
Author Name Unknown Address Unknown Organization K1G:LABORATORY [facility] - [address] [place] [phone] Laboratory Report Ordering Provider Test Date Status DANI DURÁN 07/30/2023 08:10:49 Final Observation Date Value Abnormality Reference (Units ) Status Albumin 07/30/2023 08:10:49 3.5 Below low normal 3.8-5.0 (g/dL) Final AST (Aspartate aminotransferase) 07/30/2023 08:10:49 39 Above high normal 10-35 (U/L) Final Alk Phos 07/30/2023 08:10:49 135 Above high normal 35-130 (U/L) Final ALT (Alanine aminotransferase) 07/30/2023 08:10:49 30 10-35 (U/L) Final Bilirubin, Total 07/30/2023 08:10:49 1.0 <=1.2 (mg/dL) Final Bilirubin, Direct 07/30/2023 08:10:49 0.5 Above high normal 0.0-0.3 (mg/dL) Final Protein 07/30/2023 08:10:49 7.2 6.0-8.3 (g/dL) Final Performing Location LABORATORY [facility] - [address] [facility] [phone]
--- OUTSIDE RECORDS SUMMARY | 2023-12-06 21:53 | External Medical Summary ---
Author Name Unknown Address Unknown Organization K1G:LABORATORY [facility] - [address] [place] [phone] Laboratory Report Ordering Provider Test Date Status DANI DURÁN 07/30/2023 08:05:56 Final ADMITTED patient Observation Date Value Abnormality Reference (Units ) Status Adenovirus DNA [Presence] in Nasopharynx by DEAN with non-probe detection 07/30/2023 08:05:56 Negative Negative Final Human coronavirus 229E RNA [Presence] in Nasopharynx by DEAN with non-probe detection 07/30/2023 08:05:56 Negative Negative Final Human coronavirus HKU1 RNA [Presence] in Nasopharynx by DEAN with non-probe detection 07/30/2023 08:05:56 Negative Negative Final Human coronavirus NL63 RNA [Presence] in Nasopharynx by DEAN with non-probe detection 07/30/2023 08:05:56 Negative Negative Final Human coronavirus OC43 RNA [Presence] in Nasopharynx by DEAN with non-probe detection 07/30/2023 08:05:56 Negative Negative Final SARS-CoV-2 (COVID-19) RNA [Presence] in Nasopharynx by DEAN with non-probe detection 07/30/2023 08:05:56 Positive Abnormal Negative Final Coronavirus SARS detected by PCR (amplified probe). Test results reported to [facility]. Human metapneumovirus RNA [P resence] in Nasopharynx by DEAN with non-probe detection 07/30/2023 08:05:56 Negative Negative Final Rhinovirus+Enterovirus RNA [ Presence] in Nasopharynx by DEAN with non-probe detection 07/30/2023 08:05:56 Negative Negative Final Influenza virus A RNA [Prese nce] in Nasopharynx by DEAN with non-probe detection 07/30/2023 08:05:56 Negative Negative Final Influenza virus B RNA [Prese nce] in Nasopharynx by DEAN with non-probe detection 07/30/2023 08:05:56 Negative Negative Final Parainfluenza virus 1 RNA [P resence] in Nasopharynx by DEAN with non-probe detection 07/30/2023 08:05:56 Negative Negative Final Parainfluenza virus 2 RNA [P resence] in Nasopharynx by DEAN with non-probe detection 07/30/2023 08:05:56 Negative Negative Final Parainfluenza virus 3 RNA [P resence] in Nasopharynx by DEAN with non-probe detection 07/30/2023 08:05:56 Negative Negative Final Parainfluenza virus 4 RNA [P resence] in Nasopharynx by DEAN with non-probe detection 07/30/2023 08:05:56 Negative Negative Final Respiratory syncytial virus RNA [Presence] in Nasopharynx by DEAN with non-probe detection 07/30/2023 08:05:56 Negative Negative F inal Bordetella pertussis.pertuss is toxin promoter region [Presence] in Nasopharynx by DEAN with non-probe detection 07/30/2023 08:05:56 Negative Negative Final Chlamydophila pneumoniae DNA [Presence] in Nasopharynx by DEAN with non-probe detection 07/30/2023 08:05:56 Negative Negative Final Mycoplasma pneumoniae DNA [P resence] in Nasopharynx by DEAN with non-probe detection 07/30/2023 08:05:56 Negative Negative Final Bordetella parapertussis IS1 001 DNA [Presence] in Nasopharynx by DEAN with non-probe detection 07/30/2023 08:05:56 Negative Negative F inal
The primers that detect Rhinovirus may cross react with some Enterorviruses. The validation of bronchial specimens, tracheal aspirates, and throats for this assay was developed and performance characteristics determined by [facility]. The validation of alternate specimen types has not been cleared or approved by the U.S. Food and Drug Administration (FDA). It has been determined that such clearance or approval is not necessary. Performing Location [facility] - [address] [facility] [phone]
--- OUTSIDE RECORDS SUMMARY | 2023-12-06 21:53 | External Medical Summary ---
Author Name Unknown Address Unknown Organization K1G:LABORATORY [facility] - [address] [facility] [phone] Laboratory Report Ordering Provider Test Date Status DANI DURÁN 07/30/2023 08:10:49 Final Observation Date Value Abnormality Reference (Units ) Status SYNC LEUKOCYTES IN BLOOD BY AUTOMATED COUNT 07/30/2023 08:10:49 10.48 4.00-10.80 (K/uL) Final Segs 07/30/2023 08:10:49 79.9 Above high normal 40.0-75.0 (%) Final Lymphs % 07/30/2023 08:10:49 7.2 Below low normal 18.0-42.0 (%) Final Monos 07/30/2023 08:10:49 9.4 1.0-11.0 (%) Final Eosinophils 07/30/2023 08:10:49 3.1 0.0-6.0 (%) Final Basos 07/30/2023 08:10:49 0.4 0.0-2.0 (%) Final Absolute Segs 07/30/2023 08:10:49 8.38 Above high normal 1.80-7.70 (K/uL) Final Lymphs, absolute 07/30/2023 08:10:49 0.75 Below low normal 1.00-4.80 (K/ul) Final Monos, Abs 07/30/2023 08:10:49 0.99 0.00-1.10 (K/uL) Final Eos, Abs 07/30/2023 08:10:49 0.32 0.00-0.70 (K/uL) Final Basos, Abs 07/30/2023 08:10:49 0.04 0.00-0.20 (K/uL) Final Performing Location LABORATORY [facility] - [address] [facility] [id number]
--- OUTSIDE RECORDS SUMMARY | 2023-12-06 21:53 | External Medical Summary ---
Author Name Unknown Address Unknown Organization K1G:LABORATORY [facility] - [facility] [id number] Laboratory Report Ordering Provider Test Date Status DANI DURÁN 07/30/2023 11:26:21 Final Warfarin Therapy
INR: 2 .0-3.0 conventional anticoagulation
INR: 2.5- 3.5 high intensity anticoagulation Observation Date Value Abnormality Reference (Units ) Status PT 07/30/2023 11:26:21 16.5 Above high normal 11 .6-15.2 (seconds) Final INR 07/30/2023 11:26:21 1.3 Above high normal 0. 8-1.2 Final Performing Location LABORATORY [facility] - [address] [facility] [address]
--- OUTSIDE RECORDS SUMMARY | 2023-12-06 21:53 | External Medical Summary ---
Author Name Unknown Address Unknown Organization K1G:LABORATORY [facility] - [address] [place] [phone] Laboratory Report Ordering Provider Test Date Status DIONE SALEEM 07/31/2023 07:16:00 Final Observation Date Value Abnormality Reference (Units ) Status ALT (Alanine aminotransferase) 07/31/2023 07:16:00 23 10-35 (U/L) Final Performing Location LABORATORY [facility] - [address] [place] [id number]
--- OUTSIDE RECORDS SUMMARY | 2023-12-06 21:53 | External Medical Summary ---
Author Name Unknown Address Unknown Organization K1G:LABORATORY [facility] - [address] [facility] [phone] Laboratory Report Ordering Provider Test Date Status DIONE SALEEM 07/31/2023 07:16:00 Final Warfarin Therapy
INR: 2 .0-3.0 conventional anticoagulation
INR: 2.5- 3.5 high intensity anticoagulation Observation Date Value Abnormality Reference (Units ) Status PT 07/31/2023 07:16:00 18.4 Above high normal 11 .6-15.2 (seconds) Final INR 07/31/2023 07:16:00 1.5 Above high normal 0. 8-1.2 Final Performing Location LABORATORY [facility] - [address] [facility] [address]
--- OUTSIDE RECORDS SUMMARY | 2023-12-06 21:53 | External Medical Summary ---
Author Name Unknown Address Unknown Organization K1G:LABORATORY [facility] - [address] [place] [phone] Laboratory Report Ordering Provider Test Date Status DIONE SALEEM 07/31/2023 07:16:00 Final Observation Date Value Abnormality Reference (Units ) Status BUN 07/31/2023 07:16:00 22 Above high normal 6-20 (mg/dL) Final Creatinine 07/31/2023 07:16:00 1.0 0.5-1.0 (mg/dL) Final Glomerular filtration rate/1.73 sq M.predicted [Volume Rate/Area] in Serum, Plasma or Blood by Creatinine-based formula (CKD-EPI) 07/31/2023 07:16:00 59 Below low normal >=60 (mL/min) Final eGFR is calculated based on the CKD-EPI 2020 equation SODIUM 07/31/2023 07:16:00 133 Below low normal 135 -146 (mmol/L) Final Potassium 07/31/2023 07:16:00 3.9 3.5-5.1 (m mol/L) Final Cl 07/31/2023 07:16:00 98 98-107 (mm ol/L) Final CO2 07/31/2023 07:16:00 22 22-32 (mmo l/L) Final Anion gap 07/31/2023 07:16:00 13 7-15 (mmol /L) Final Glucose 07/31/2023 07:16:00 125 Above high normal 70 -120 (mg/dL) Final Calcium 07/31/2023 07:16:00 8.6 8.4-10.2 ( mg/dL) Final Performing Location LABORATORY [facility] [address] [facility] [phone]
--- NOTE | 2023-12-07 11:27 | Discharge Summary ---
Date of Service December 07, 2023 Admission HPI Per Admitting Provider Maria Luisa is an 88yo female with PMH of HOCM, heart failure, chronic respiratory failure, and urinary retention. She presented via EMS from [facility] for 2 syncopal episodes on the morning of 12/05. Her blood sugar was low at that time around 58, but came up after receiving orange juice. Patient was done very lethargic; SpO2 65%. Patient was also hypotensive at 60/30 on EMS arrival and placed on a nonrebreather at 15 L (she is chronically on 2L NC at baseline). Patient's daughter (Betty) is present at the bedside and provides additional history. She reports that her mother has been in the hospital multiple times since July for acute exacerbations of her heart failure. This has been difficult to treat in the setting of HOCM. She was taken off of diuretics recently. Patient denies fully passing out this morning, but reports she has been feeling very weak and had difficulty breathing. Patient is mentating at this time and reports that she would not like escalation of treatment such as v asopressors or intubation if required. Per discussion with both patient and daughter at bedside, patient is DNR/DNI and would like comfort measures only at this time. Patient Patient is hypotensive and is hypertensive at 94/61, tachypneic at 25 RPM, and her oxygen saturation is 84% SpO2 on 15 L nonrebreather. ED course: Dextrose 50 mL IV Ventolin 2.5 mg neb Calcium gluconate 1000 mg IV NSS 250 mL IV ROS: Patient endorses fatigue, generalized weakness, orthopnea, and difficulty breathing. Patient denies fever, chills, sweating, dizziness, lightheadedness, headache, chest pain, abdominal pain, pain anywhere. Discharge Data Allergies Allergy/AdvReac Type Severity Reaction Status Date / Time amoxicillin Allergy Hives Unverified 12/06/23 12:59 gatifloxacin AdvReac Nausea and Unverified 12/06/23 12:59 vomiting latex AdvReac Rash Unverified 12/06/23 12:59 Consultations 12/06/23 12:08 ED Decision to Admit Stat 12/06/23 12:43 Consult Palliative Care Routine Hospital Course (1) Palliative care patient: (2) Comfort measures only status: (3) Acute on chronic heart failure with preserved ejection fraction (HFpEF): (4) HOCM (hypertrophic obstructive cardiomyopathy): (5) Acute on chronic hypoxic respiratory failure: (6) Syncope: (7) Hypotension: (8) Lactic acidosis: (9) Hyponatremia: (10) Elevated troponin: Discharge Plan Discharge Items Patient Disposition: Other Date/Time: 12/07/23 10:55 Coding Diagnoses Palliative care patient Z51.5 Comfort measures only status Z51.5 Acute on chronic heart failure with preserved ejection fraction (HFpEF) I50.33 HOCM (hypertrophic obstructive cardiomyopathy) I42.1 Acute on chronic hypoxic respiratory failure J96.21 Syncope R55 Hypotension I95.9 Lactic acidosis E87.20 Hyponatremia E87.1 Elevated troponin R79.89
--- NOTE | 2023-12-07 11:27 | Death Pronouncement Note ---
Date of Service December 07, 2023 Pronouncement Note Admission Date December 06, 2023 Date and Time of Date of : 12/07/23 Time of : 10:55 Preliminary Cause of (1) Acute on chronic heart failure: (2) HOCM (hypertrophic obstructive cardiomyopathy): Additional Data Confirmation of : no pulse, no respirations, no heart sounds and pupils fixed and dilated Pronouncement Performed By: Attending Physician Family: at bedside Attending/PCP notified?: Yes Attending physician: Wilson Card MD Was code activated?: No Autopsy requested?: No workers' compensation claims examiner notified?: No Coding Level of Care Code None Diagnoses Acute on chronic heart failure I50.9 HOCM (hypertrophic obstructive cardiomyopathy) I42.1
--- NOTE | 2023-12-08 05:50 | Electrocardiogram Report ---
Test Reason : Blood Pressure : / mmHG Vent. Rate : 061 BPM Atrial Rate : 076 BPM P-R Int : 000 ms QRS Dur : 182 ms QT Int : 542 ms P-R-T Axes : 000 219 024 degrees QTc Int : 545 ms Ventricular-paced rhythm Abnormal ECG No previous ECGs available Confirmed by Cory Modi ([id number]) on 12/08/2023 5:50:23 AM Referred By: Confirmed By:Cory Modi
== END 2023-12-07 14:12 | disposition expired | DRG 291 ==
LOC: ED 10:24 → 3W 14:15 → SUATTDRO 15:05 → 3W 15:05